=== PATIENT | female | born 1960 | race Caucasian/White ===

== ENCOUNTER 2017-03-07 11:36 | Emergency (ER) | payer OTHER ==
[2017-03-07 11:43] VITALS: BP 124/81; PULSE 109; RESP 18; TEMP 97.9
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
== END 2017-03-07 12:05 | disposition home or self-care (01) ==
LOC: EC 11:36
DX: K04.7 Periapical abscess without sinus (principal); J44.9 Chronic obstructive pulmonary disease, unspecified; K21.9 Gastro-esophageal reflux disease without esophagitis; F31.9 Bipolar disorder, unspecified; F41.9 Anxiety disorder, unspecified; M15.9 Polyosteoarthritis, unspecified; Z87.891 Personal history of nicotine dependence; Z79.82 Long term (current) use of aspirin; Z79.899 Other long term (current) drug therapy; Z88.8 Allergy status to other drugs, medicaments and biological substances; Z86.79 Personal history of other diseases of the circulatory system
CPT/HCPCS: 99282

== ENCOUNTER 2017-06-04 16:44 | Emergency (ER) | payer OTHER ==
[2017-06-04] MEDS ORDERED: methylPREDNISolone SOD SUCCI 125 MG/2 ML VIAL IV STA (18:08)
[2017-06-04] MEDS ORDERED: IPRATROPIUM-ALBUTEROL 3 ML NEB INHALATION STA (18:08)
[2017-06-04] MEDS ORDERED: HYDROcodone/APAP 10-325MG 1 EACH TAB PO ONE (18:10)
[2017-06-04 18:58] LABS: Basophils # (A) 0.1 k/uL (0-0.2); Basophils % (A) 1 %; CH 29.5; CHCM 33.5; Eosinophils # (A) 0.2 k/uL (0-0.7); Eosinophils % (A) 2 %; HCT 39.5 % (34.0-46.0); HDW 2.47; HGB 12.8 gm/dL (11.4-16.0); Luc # (Auto) 0.22; Luc % (Auto) 2; Lymphocytes # (A) 3.3 k/uL (1.0-4.8); Lymphocytes % (A) 24 %; MCH 28.6 pg (25.0-35.0); MCHC 32.3 g/dL (31.0-37.0); MCV 88.3 fL (80.0-100.0); Mean Platelet Volume 6.9; Monocytes # (A) 0.9 k/uL (0-1.0); Monocytes % (A) 6 %; Neutrophils # (A) 9.2 k/uL (1.3-7.7); Neutrophils % (A) 66 %; RBC 4.47 m/uL (3.80-5.40); RDW 14.2 % (11.5-15.5); WBC 13.9 k/uL (3.8-10.6); WBC (Perox) 13.26
[2017-06-04] MEDS ORDERED: KETOROLAC 30 MG/ML 1 ML VIAL IVP STA (19:04)
[2017-06-04] MEDS ORDERED: ACETAMINOPHEN TAB 500 MG TAB PO STA (19:04)
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
[2017-06-04 19:06] LABS: ALT 30 U/L (9-52); AST 24 U/L (14-36); Alkaline Phosphatase 64 U/L (38-126); Anion Gap 11 mmol/L; Blood Urea Nitrogen 9 mg/dL (7-17); Carbon Dioxide 25 mmol/L (22-30); Chloride 99 mmol/L (98-107); Glucose 81 mg/dL (74-99); Non-African American GFR(MDRD) 54 (>60 ml/min/1.73 sqM); Potassium 4.2 mmol/L (3.5-5.1); Sodium 135 mmol/L (137-145); Total Bilirubin 0.5 mg/dL (0.2-1.3); Total Protein 6.7 g/dL (6.3-8.2)
[2017-06-04] MEDS ORDERED: ACETAMINOPHEN TAB 325 MG TAB PO STA (19:13)
[2017-06-04 19:15] LABS: Creatine Kinase 64 U/L (30-135)
[2017-06-04 19:27] LABS: INR 0.9 (<1.2)
[2017-06-04 19:28] LABS: Creatine Kinase MB 1.5 ng/mL (0.0-2.4); Partial Thromboplastin Time 24.1 sec (22.0-30.0); Prothrombin Time 9.6 sec (9.0-12.0); Troponin I <0.012 ng/mL (0.000-0.034)
--- NOTE | 2017-06-04 19:47 | XR ---
EXAMINATION TYPE: XR chest 2V DATE OF EXAM: 06/04/2017 COMPARISON: 08/16/2015 HISTORY: Fluid retention and difficulty breathing TECHNIQUE: Frontal and lateral views of the chest are obtained. FINDINGS: Heart and mediastinum are normal. There is some linear density at the left lung base. The other lung weaver are clear. There is no pleural effusion. Bony thorax is intact. There are chest mey ds. IMPRESSION: There is new atelectasis at the left lung base compared to old exam. Normal heart.
[2017-06-04 19:52] VITALS: RESP 18
--- NOTE | 2017-06-04 20:00 | US ---
EXAMINATION TYPE: US venous doppler duplex LE BI DATE OF EXAM: 06/04/2017 7:48 PM COMPARISON: NONE CLINICAL HISTORY: Pain. Edema bilaterally SIDE PERFORMED: Bilateral TECHNIQUE: The lower extremity deep venous system is examined utilizing real time linear array sonog thania with graded compression, doppler sonography and color-flow sonography. VESSELS IMAGED: External Iliac Vein (EIV) Common Femoral Vein Deep Femoral Vein Greater Saphenous Vein * Femoral Vein Popliteal Vein Small Saphenous Vein * Proximal Calf Veins (* superficial vessels) Right Leg: Negative for DVT Left Leg: Negative for DVT No evidence of DVT bilateral legs IMPRESSION: No evidence of deep venous thrombosis in both legs.
[2017-06-04] MEDS ORDERED: ALPRAZolam 0.5 MG TAB PO STA (20:05)
[2017-06-04] MEDS ORDERED: MORPHINE SULFATE 2 MG/ML SYRINGE IVP STA (20:18)
[2017-06-04] MEDS ORDERED: LEVOFLOXACIN 750MG-D5W PMX 750 MG in DEXTROSE/WATER 1 150ML.BAG IVPB STA (20:18)
[2017-06-04] MEDS: RX INFO: IV CONTRAST WAS GIVEN 1 EACH MISC MISCELLANE PRN ×2 (20:49→20:50)
--- NOTE | 2017-06-04 21:05 | CT ---
EXAMINATION TYPE: CT angio chest DATE OF EXAM: 06/04/2017 8:50 PM COMPARISON: 05/28/2013 HISTORY: Lower extremity swelling and elevated d-dimer. CT DLP: 248.70 mGycm Automated exposure control for dose reduction was used. CONTRAST: CTA scan of the thorax is performed with IV Contrast, patient injected with 80 mL of Visipaque 320, p ulmonary embolism protocol. There are 3-D post processed images.. FINDINGS: There is diffuse pulmonary emphysema. There is no evidence of a pulmonary mass. There is mild linear density at the lung bases consistent with scarring and subsegmental atelectasis. There is no pleural effusion. There is normal contrast opacification of the pulmonary arteries. I see no filling defects. There is no sign of aortic aneurysm or dissection. There is no mediastinal adenopathy. There are a few bronchi al lymph nodes that measure less than 1 cm. IMPRESSION: NO EVIDENCE OF PULMONARY EMBOLUS. PULMONARY EMPHYSEMA. NO ADVERSE CHANGE COMPARED TO OLD EXAM.
[2017-06-04 22:44] VITALS: BP 128/61; PULSE 78; TEMP 97.8
== END 2017-06-04 22:52 | disposition home or self-care (01) ==
LOC: EC 16:44
DX: J44.1 Chronic obstructive pulmonary disease with (acute) exacerbation (principal); J20.9 Acute bronchitis, unspecified; J44.0 Chronic obstructive pulmonary disease with (acute) lower respiratory infection; I25.119 Atherosclerotic heart disease of native coronary artery with unspecified angina pectoris; K21.9 Gastro-esophageal reflux disease without esophagitis; M19.90 Unspecified osteoarthritis, unspecified site; F31.9 Bipolar disorder, unspecified; F41.9 Anxiety disorder, unspecified; M79.605 Pain in left leg; M79.604 Pain in right leg; G89.29 Other chronic pain; R79.1 Abnormal coagulation profile; Z87.898 Personal history of other specified conditions; F17.200 Nicotine dependence, unspecified, uncomplicated; Z86.73 Personal history of transient ischemic attack (TIA), and cerebral infarction without residual deficits; Z79.899 Other long term (current) drug therapy; Z79.82 Long term (current) use of aspirin; Z88.8 Allergy status to other drugs, medicaments and biological substances
CPT/HCPCS: 36415; 94640; 93005; 85379; 83880; 80053; 82550; 82553; 84484; 85025; 85610; 85730; 87040; 71020; 93970; 71275; 96365; 96366; 99285; J2930; Q9967; J1885; J2270; J1956

== ENCOUNTER 2017-07-03 20:16 | Emergency (ER) | payer OTHER ==
[2017-07-03 20:22] VITALS: BP 132/66; PULSE 96; RESP 20; TEMP 98.6
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
== END 2017-07-03 21:44 | disposition home or self-care (01) ==
LOC: EC 20:16
DX: M79.89 Other specified soft tissue disorders (principal); F41.9 Anxiety disorder, unspecified; F31.9 Bipolar disorder, unspecified; K21.9 Gastro-esophageal reflux disease without esophagitis; I25.10 Atherosclerotic heart disease of native coronary artery without angina pectoris; J44.9 Chronic obstructive pulmonary disease, unspecified; M19.90 Unspecified osteoarthritis, unspecified site; F17.200 Nicotine dependence, unspecified, uncomplicated; Z79.51 Long term (current) use of inhaled steroids; Z86.73 Personal history of transient ischemic attack (TIA), and cerebral infarction without residual deficits; Z98.890 Other specified postprocedural states; Z79.82 Long term (current) use of aspirin; Z79.899 Other long term (current) drug therapy
CPT/HCPCS: 99283

== ENCOUNTER 2018-02-21 20:32 | Emergency (ER) | payer OTHER ==
[2018-02-21 20:36] VITALS: TEMP 98.8
[2018-02-21] MEDS ORDERED: methylPREDNISolone SOD SUCCI 125 MG/2 ML VIAL IV STA (20:58)
[2018-02-21] MEDS ORDERED: IPRATROPIUM-ALBUTEROL 3 ML NEB INHALATION STA (20:58)
[2018-02-21 21:45] LABS: Albumin 4.3 g/dL (3.5-5.0); Calcium 9.2 mg/dL (8.4-10.2); Total Bilirubin 0.5 mg/dL (0.2-1.3)
[2018-02-21 21:46] LABS: Basophils % (A) 0 %; Eosinophils # (A) 0.1 k/uL (0-0.7); Eosinophils % (A) 1 %; HCT 38.5 % (34.0-46.0); HGB 12.9 gm/dL (11.4-16.0); Lymphocytes # (A) 1.7 k/uL (1.0-4.8); Lymphocytes % (A) 14 %; MCH 29.4 pg (25.0-35.0); MCHC 33.4 g/dL (31.0-37.0); MCV 88.1 fL (80.0-100.0); Mean Platelet Volume 6.8; Monocytes # (A) 0.2 k/uL (0-1.0); Monocytes % (A) 2 %; Neutrophils # (A) 10.1 k/uL (1.3-7.7); Neutrophils % (A) 84 %; Platelet Count 366 k/uL (150-450); RBC 4.37 m/uL (3.80-5.40); RDW 14.3 % (11.5-15.5)
[2018-02-21 21:48] LABS: Creatine Kinase 97 U/L (30-135); Magnesium 1.8 mg/dL (1.6-2.3); Potassium 5.1 mmol/L (3.5-5.1)
[2018-02-21 21:55] LABS: Prothrombin Time 9.6 sec (9.0-12.0)
[2018-02-21 21:56] LABS: Partial Thromboplastin Time 21.5 sec (22.0-30.0)
[2018-02-21 22:01] LABS: Troponin I <0.012 ng/mL (0.000-0.034)
[2018-02-21] MEDS ORDERED: SODIUM CHLORIDE 0.9% 1,000 ML IV ONE (22:13)
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
--- NOTE | 2018-02-21 22:23 | XR ---
EXAMINATION TYPE: XR chest 2V DATE OF EXAM: 02/21/2018 COMPARISON: 06/04/2017 HISTORY: Cough TECHNIQUE: Frontal and lateral views of the chest are obtained. FINDINGS: There is no heart failure nor confluent pneumonic infiltrate. There is mild linear density at the left posterior lung base. There is 25% wedging of a midthoracic vertebra. This is probably T8 . IMPRESSION: There is some chronic scarring and atelectasis at the left lung base without change comp ared to old exam. There is new compression fracture of T8 compared to old exam.
[2018-02-21 22:27] VITALS: RESP 18
[2018-02-21 22:32] LABS: Appearance,Urine Clear (Clear); Bilirubin,Urine Negative (Negative); Blood,Urine Negative (Negative); Color,Urine Yellow; Glucose,Urine (UA) Negative (Negative); Ketones,Urine Negative (Negative); Leukocyte Esterase,Urine Negative (Negative); Nitrite,Urine Negative (Negative); PH, Urine 5.5 (5.0-8.0); Protein,Urine Negative (Negative); Specific Gravity,Urine 1.011 (1.001-1.035); Urobilinogen,Urine <2.0 mg/dL (<2.0)
[2018-02-21 23:13] VITALS: BP 153/77; PULSE 77
== END 2018-02-21 23:19 | disposition home or self-care (01) ==
LOC: EC 20:32
DX: S22.060A Wedge compression fracture of T7-T8 vertebra, initial encounter for closed fracture (principal); J44.1 Chronic obstructive pulmonary disease with (acute) exacerbation; E86.0 Dehydration; I25.10 Atherosclerotic heart disease of native coronary artery without angina pectoris; K21.9 Gastro-esophageal reflux disease without esophagitis; I27.20 Pulmonary hypertension, unspecified; F41.9 Anxiety disorder, unspecified; F32.9 Major depressive disorder, single episode, unspecified; F17.200 Nicotine dependence, unspecified, uncomplicated; Z87.19 Personal history of other diseases of the digestive system; Z90.49 Acquired absence of other specified parts of digestive tract; Z86.73 Personal history of transient ischemic attack (TIA), and cerebral infarction without residual deficits; Z79.82 Long term (current) use of aspirin; Z79.51 Long term (current) use of inhaled steroids; Z79.899 Other long term (current) drug therapy; Z88.1 Allergy status to other antibiotic agents; Z88.8 Allergy status to other drugs, medicaments and biological substances
CPT/HCPCS: 36415; 94640; 93005; 80053; 82550; 82553; 83605; 83735; 84484; 85025; 85610; 85730; 81003; 87040; 71046; 99284; 96374; 96361; J2930

== ENCOUNTER 2018-04-15 14:18 | Inpatient (IN) | payer OTHER ==
[2018-04-15] MEDS ORDERED: cefTRIAXone IN SWFI 2,000 MG/20 ML SYRINGE IVP STA (14:38)
[2018-04-15] MEDS ORDERED: ONDANSETRON 4 MG/2 ML VIAL IVP STA (14:41)
[2018-04-15] MEDS ORDERED: MORPHINE SULFATE 2 MG/ML SYRINGE IVP STA (14:41)
[2018-04-15] MEDS: SODIUM CHLORIDE 0.9% 500 ML IV SCH ×2 (14:50→14:55)
[2018-04-15 15:04] LABS: Basophils # (A) 0.1 k/uL (0-0.2); Basophils % (A) 0 %; Eosinophils # (A) 0.2 k/uL (0-0.7); Eosinophils % (A) 1 %; HCT 54.6 % (34.0-46.0); HGB 18.1 gm/dL (11.4-16.0); Lymphocytes # (A) 2.2 k/uL (1.0-4.8); Lymphocytes % (A) 11 %; MCH 27.8 pg (25.0-35.0); MCHC 33.2 g/dL (31.0-37.0); MCV 83.6 fL (80.0-100.0); Mean Platelet Volume 6.4; Monocytes # (A) 0.9 k/uL (0-1.0); Monocytes % (A) 4 %; Neutrophils # (A) 17.4 k/uL (1.3-7.7); Neutrophils % (A) 83 %; Platelet Count 472 k/uL (150-450); RBC 6.53 m/uL (3.80-5.40); RDW 13.3 % (11.5-15.5); WBC 20.8 k/uL (3.8-10.6)
[2018-04-15 15:08] LABS: ALT 21 U/L (9-52); AST 26 U/L (14-36); Albumin 4.9 g/dL (3.5-5.0); Alkaline Phosphatase 122 U/L (38-126); Anion Gap 21 mmol/L; Blood Urea Nitrogen 12 mg/dL (7-17); Calcium 10.5 mg/dL (8.4-10.2); Carbon Dioxide 22 mmol/L (22-30); Chloride 96 mmol/L (98-107); Glucose 188 mg/dL (74-99); Potassium 4.6 mmol/L (3.5-5.1); Sodium 139 mmol/L (137-145); Total Bilirubin 0.6 mg/dL (0.2-1.3); Total Protein 8.4 g/dL (6.3-8.2)
[2018-04-15 15:13] LABS: Appearance,Urine Clear (Clear); Bilirubin,Urine Negative (Negative); Blood,Urine Negative (Negative); Color,Urine Yellow; Glucose,Urine (UA) 3+ (Negative); Hyaline Casts,Urine 4 /lpf (0-2); Ketones,Urine Trace (Negative); Leukocyte Esterase,Urine Negative (Negative); Mucus,Urine Rare /hpf; Nitrite,Urine Negative (Negative); PH, Urine 8.5 (5.0-8.0); Protein,Urine 3+ (Negative); RBC,Urine 2 /hpf (0-5); Specific Gravity,Urine 1.012 (1.001-1.035); Urobilinogen,Urine <2.0 mg/dL (<2.0); WBC,Urine 2 /hpf (0-5)
[2018-04-15 15:31] LABS: Partial Thromboplastin Time 21.6 sec (22.0-30.0); Prothrombin Time 10.3 sec (9.0-12.0)
--- NOTE | 2018-04-15 15:49 | XR ---
EXAMINATION TYPE: XR chest 2V DATE OF EXAM: 04/15/2018 COMPARISON: Chest x-ray February 21, 2018. CTA chest June 04, 2017. HISTORY: Fever. TECHNIQUE: Frontal and lateral views of the chest are obtained. FINDINGS: Background chronic emphysematous changes redemonstrated. There is no focal air space opacit y, pleural effusion, or pneumothorax seen. The cardiac silhouette size is within normal limits. Th e osseous structures are intact. IMPRESSION: Chronic emphysematous change without suspicious acute infiltrate.
[2018-04-15] MEDS ORDERED: metroNIDAZOLE-NS PMX 500 MG in SALINE 1 100ML.BAG IVPB STA (16:32)
[2018-04-15] MEDS ORDERED: LABETALOL 5 MG/ML VIAL MDV IVP STA (16:37)
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
[2018-04-15] MEDS ORDERED: NITROGLYCERIN OINT 1 INCH/GM PACKET TOPICAL STA (17:05)
[2018-04-15] MEDS ORDERED: tiZANidine 4 MG TAB PO PRN (17:06)
[2018-04-15] MEDS ORDERED: NALOXONE 0.4 MG/ML 1 ML VIAL IV PRN (17:11)
--- NOTE | 2018-04-15 17:27 | CT ---
EXAMINATION TYPE: CT abdomen pelvis w con DATE OF EXAM: 04/15/2018 COMPARISON: 08/31/2017 HISTORY: Left side abdominal pain, nausea and vomiting. CT DLP: 1632 mGycm Automated exposure control for dose reduction was used. TECHNIQUE: Helical acquisition of images was performed from the lung bases through the pelvis. CONTRAST: Performed without Oral Contrast and with IV Contrast, patient injected with 100ml mL of Iso rajan M300. FINDINGS: LUNG BASES: No significant abnormality is appreciated. LIVER/GB: No significant abnormality is appreciated. PANCREAS: No significant abnormality is seen. SPLEEN: No significant abnormality is seen. ADRENALS: No significant abnormality is seen. KIDNEYS: No significant abnormality is seen. FREE AIR: No free air is visualized. RETROPERITONEAL ADENOPATHY: None visualized REPRODUCTIVE ORGANS: No significant abnormality is seen URINARY BLADDER: No significant abnormality is seen. PELVIC ADENOPATHY: None visualized. OSSEOUS STRUCTURES: No significant abnormality is seen. BOWEL: The stomach is distended with fluid and a moderate degree. While there is no CT evidence of p eptic ulcer disease, clinical consideration of peptic ulcer disease is requested. OTHER: Vasculature unremarkable. IMPRESSION: NO DEFINITE ACUTE PROCESS.
[2018-04-15] MEDS: MORPHINE SULFATE 2 MG/ML SYRINGE IVP PRN ×3 (17:28→19:59)
[2018-04-15] MEDS: ONDANSETRON 4 MG/2 ML VIAL IVP PRN (17:33)
[2018-04-15] MEDS: LABETALOL 5 MG/ML VIAL MDV IVP SCH ×5 (17:38→20:34)
[2018-04-15] MEDS ORDERED: ASPIRIN 81 MG PO STA (18:17)
[2018-04-15] MEDS: LABETALOL 5 MG/ML VIAL MDV IVP PRN (18:38)
[2018-04-15] MEDS: DICYCLOMINE 10 MG CAP PO SCH ×2 (20:03→20:08)
[2018-04-15] MEDS: QUEtiapine 100 MG TAB PO SCH (20:04)
[2018-04-15] MEDS: GABAPENTIN 300 MG CAP PO SCH (20:08)
[2018-04-15] MEDS: SYMBICORT 160-4.5 MCG INHALER INHALATION SCH (20:33)
[2018-04-15 20:51] LABS: Glucose,Whole Blood 143 mg/dL (75-99)
[2018-04-15] MEDS: INSULIN ASPART 100 UNIT/ML 1 ML 10 ML VIAL SQ SCH (20:56)
[2018-04-15] MEDS ORDERED: methylPREDNISolone SOD SUCCI 125 MG/2 ML VIAL IV SCH (21:00)
[2018-04-15] MEDS: ACETAMINOPHEN TAB 325 MG TAB PO PRN (21:50)
[2018-04-15] MEDS ORDERED: NON-FORMULARY DRUG (Buprenorphine Hcl/Naloxone Hcl [Suboxone 8 Mg-2 Mg Sl Film] 0.5 FILM) SL SCH (22:00)
[2018-04-15] MEDS: metroNIDAZOLE-NS PMX 500 MG in SALINE 1 100ML.BAG IVPB SCH (22:22)
[2018-04-16 04:40] LABS: Hemoglobin A1C 5.3 % (4.0-6.0)
[2018-04-16 06:07] LABS: Glucose,Whole Blood 142 mg/dL (75-99)
[2018-04-16] MEDS: INSULIN ASPART 100 UNIT/ML 1 ML 10 ML VIAL SQ SCH ×4 (06:20→21:22)
[2018-04-16 06:28] LABS: Basophils % (A) 0 %; Eosinophils % (A) 0 %; HCT 42.8 % (34.0-46.0); Lymphocytes # (A) 1.6 k/uL (1.0-4.8); Lymphocytes % (A) 14 %; MCH 28.7 pg (25.0-35.0); MCHC 32.9 g/dL (31.0-37.0); MCV 87.2 fL (80.0-100.0); Mean Platelet Volume 6.4; Monocytes # (A) 0.4 k/uL (0-1.0); Monocytes % (A) 4 %; Neutrophils # (A) 9.4 k/uL (1.3-7.7); Neutrophils % (A) 82 %; Platelet Count 341 k/uL (150-450); RDW 13.4 % (11.5-15.5); WBC 11.4 k/uL (3.8-10.6)
[2018-04-16 06:39] LABS: ALT 16 U/L (9-52); AST 22 U/L (14-36); Albumin 3.5 g/dL (3.5-5.0); Alkaline Phosphatase 70 U/L (38-126); Anion Gap 13 mmol/L; Blood Urea Nitrogen 12 mg/dL (7-17); Calcium 9.1 mg/dL (8.4-10.2); Carbon Dioxide 23 mmol/L (22-30); Chloride 102 mmol/L (98-107); Glucose 137 mg/dL (74-99); Potassium 4.1 mmol/L (3.5-5.1); Sodium 138 mmol/L (137-145); Total Bilirubin 0.2 mg/dL (0.2-1.3); Total Protein 6.2 g/dL (6.3-8.2)
[2018-04-16 06:40] LABS: HGB 14.1 gm/dL (11.4-16.0)
[2018-04-16] MEDS ORDERED: PANTOPRAZOLE 40 MG TABLET PO SCH (07:30)
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
[2018-04-16] MEDS: SYMBICORT 160-4.5 MCG INHALER INHALATION SCH ×3 (08:24→21:57)
[2018-04-16] MEDS: ACETAMINOPHEN TAB 325 MG TAB PO PRN ×2 (08:38→22:40)
[2018-04-16] MEDS: GABAPENTIN 300 MG CAP PO SCH ×3 (08:40→21:22)
[2018-04-16] MEDS: ASPIRIN 325 MG TAB PO SCH (08:40)
[2018-04-16] MEDS: FOLIC ACID 1 MG TAB PO SCH (08:40)
[2018-04-16] MEDS: CHOLECALCIFEROL 1,000 UNIT TAB PO SCH (08:40)
[2018-04-16] MEDS: ALPRAZolam 1 MG TAB PO SCH (08:41)
[2018-04-16] MEDS: metroNIDAZOLE-NS PMX 500 MG in SALINE 1 100ML.BAG IVPB SCH ×3 (08:41→22:36)
[2018-04-16 11:47] LABS: Glucose,Whole Blood 99 mg/dL (75-99)
[2018-04-16] MEDS: DICYCLOMINE 10 MG CAP PO SCH ×4 (12:04→21:23)
[2018-04-16] MEDS: BALSALAZIDE DISODIUM 750 MG CAPSULE PO SCH ×3 (12:04→21:23)
[2018-04-16] MEDS: MORPHINE SULFATE 2 MG/ML SYRINGE IV PRN ×4 (12:13→23:42)
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
[2018-04-16 14:05] LABS: C Reactive Protein 5.6 mg/L (<10.0)
[2018-04-16] MEDS ORDERED: MIDAZOLAM 2 MG/2 ML VIAL ONE (14:53)
[2018-04-16] MEDS ORDERED: ETOMIDATE 2 MG/ML 10 ML VIAL ONE (14:53)
[2018-04-16] MEDS ORDERED: fentaNYL (PF) 50 MCG/ML 2 ML AMP ONE (14:53)
[2018-04-16] MEDS ORDERED: IV FLUID CONTINUATION 1,000 ML IV ONE (14:53)
--- NOTE | 2018-04-16 15:26 | P.PCN ---
Date of Procedure: 04/16/18 Procedure(s) Performed: Procedure: Esophagogastroduodenoscopy and biopsy. Preoperative diagnosis: Abdominal pain. Postoperative diagnosis: Mild gastritis and duodenitis. Preparation sedation: Was provided by anesthesia Brief clinical history: The patient is a 58-year-old female multiple medical comorbidities including CAD, COPD, CVA, GERD, Crohn's ileo-colitis diagnosed September 2014, IBS, polysubstance abuse, remote EtOH and cocaine abuse and bipolar depression. Patient presented with severe epigastric pain, nausea and vomiting intermittently over the last month without hematemesis, hematochezia or melena. Patient was prviously advised balsalazide maintenance for her Crohn' s colitis, however, she has not been taking this medication for quite some time. No recent steroids. She continues to take Bentyl without improvement of her abdominal pain. She denies diarrhea or excessive bowel movements. No changes in weight, vision or skin. She's been taking 800 mg of Motrin on a daily basis along with Zantac and Protonix for several weeks to treat generalized pain. No active alcohol or substance abuse. EGD colonoscopy August 2017 for evaluation of abdominal pain, nausea, vomiting and diarrhea showed mild gastritis, ileocolitis and diverticular disease biopsies consistent with chronic esophagitis and chronic ileocolitis. Admission white count 20.8 dropped to 11.4. Hemoglobin 18.1 presently 14.1. Platelets 341. INR 1.0. BUN 12. Creatinine 0.8. Troponin 0.04. LFTs within normal limits. CT of the abdomen and pelvis reported no definite acute process. This evaluation is to assess for peptic ulcer disease. Procedure: With the patient on her left lateral decubitus position and after informed consent and adequate sedation, I passed the Olympus-GIF 1 his cricopharyngeus down the esophagus. There was no evidence of esophagitis or complicated reflux disease. The endoscope was then passed into the stomach which was insufflated with air and inspected in detail including the retroflex view in the cardia. There was some mottling and erythema in the antrum consistent with mild gastritis but no ulcers or erosions. Pyloric channel, duodenal bulb, post bulbar area and descending duodenum appeared within normal limits. I obtained biopsies from the antrum then the endoscope was withdrawn. The patient tolerated the procedure well. Plan: The patient was reassured. Will await biopsy results and make further plans based on her course and biopsy results.
[2018-04-16] MEDS: METOPROLOL SUCCINATE (ER) 25 MG TAB.ER.24H PO SCH (15:43)
[2018-04-16 16:36] LABS: Glucose,Whole Blood 99 mg/dL (75-99)
[2018-04-16] MEDS ORDERED: METOPROLOL TARTRATE 5 MG/5 ML VIAL IVP STA (17:30)
[2018-04-16] MEDS: ONDANSETRON 4 MG/2 ML VIAL IVP PRN (17:53)
[2018-04-16] MEDS: PANTOPRAZOLE 40 MG TABLET PO SCH (18:04)
[2018-04-16] MEDS: LABETALOL 5 MG/ML VIAL MDV IVP PRN ×3 (18:52→21:52)
[2018-04-16] MEDS ORDERED: FLUTICASONE 50MCG/SPRAY NASAL 16GM EA NOSTRIL PRN (19:12)
[2018-04-16 20:47] LABS: Glucose,Whole Blood 113 mg/dL (75-99)
[2018-04-16] MEDS: QUEtiapine 100 MG TAB PO SCH (21:23)
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
[2018-04-17] MEDS: MORPHINE SULFATE 2 MG/ML SYRINGE IV PRN ×2 (06:13→22:09)
[2018-04-17] MEDS: PANTOPRAZOLE 40 MG TABLET PO SCH ×2 (06:13→17:29)
[2018-04-17 06:23] LABS: Basophils # (A) 0.1 k/uL (0-0.2); Basophils % (A) 0 %; Eosinophils # (A) 0.1 k/uL (0-0.7); Eosinophils % (A) 1 %; HCT 41.3 % (34.0-46.0); HGB 13.5 gm/dL (11.4-16.0); Lymphocytes # (A) 4.1 k/uL (1.0-4.8); Lymphocytes % (A) 36 %; MCH 28.1 pg (25.0-35.0); MCHC 32.8 g/dL (31.0-37.0); MCV 85.8 fL (80.0-100.0); Monocytes # (A) 0.8 k/uL (0-1.0); Monocytes % (A) 7 %; Neutrophils # (A) 5.9 k/uL (1.3-7.7); Neutrophils % (A) 53 %; Platelet Count 275 k/uL (150-450); RBC 4.81 m/uL (3.80-5.40); RDW 13.5 % (11.5-15.5); WBC 11.3 k/uL (3.8-10.6)
[2018-04-17 06:29] LABS: Anion Gap 12 mmol/L; Blood Urea Nitrogen 11 mg/dL (7-17); Calcium 8.5 mg/dL (8.4-10.2); Carbon Dioxide 24 mmol/L (22-30); Chloride 103 mmol/L (98-107); Glucose 77 mg/dL (74-99); Potassium 3.5 mmol/L (3.5-5.1); Sodium 139 mmol/L (137-145)
[2018-04-17 06:45] LABS: Glucose,Whole Blood 98 mg/dL (75-99)
[2018-04-17] MEDS: INSULIN ASPART 100 UNIT/ML 1 ML 10 ML VIAL SQ SCH ×3 (06:53→17:29)
[2018-04-17] MEDS: SYMBICORT 160-4.5 MCG INHALER INHALATION SCH ×2 (08:10→19:38)
[2018-04-17] MEDS: ALPRAZolam 1 MG TAB PO SCH (09:01)
[2018-04-17] MEDS: ASPIRIN 325 MG TAB PO SCH (09:01)
[2018-04-17] MEDS: BALSALAZIDE DISODIUM 750 MG CAPSULE PO SCH ×3 (09:01→20:41)
[2018-04-17] MEDS: DICYCLOMINE 10 MG CAP PO SCH ×4 (09:02→20:42)
[2018-04-17] MEDS: CHOLECALCIFEROL 1,000 UNIT TAB PO SCH (09:02)
[2018-04-17] MEDS: GABAPENTIN 300 MG CAP PO SCH ×3 (09:02→20:42)
[2018-04-17] MEDS: METOPROLOL SUCCINATE (ER) 25 MG TAB.ER.24H PO SCH (09:02)
[2018-04-17] MEDS: MORPHINE SULFATE 2 MG/ML SYRINGE IVP PRN ×3 (10:06→18:06)
[2018-04-17] MEDS: metroNIDAZOLE-NS PMX 500 MG in SALINE 1 100ML.BAG IVPB SCH (10:06)
[2018-04-17] MEDS: cefTRIAXone IN SWFI 1,000 MG/10 ML SYRINGE IVP SCH (10:06)
--- NOTE | 2018-04-17 10:29 | ECHOF ---
Referral Reason:Cardiac function MEASUREMENTS -------- HEIGHT: 172.7 cm WEIGHT: 72.1 kg BP: 103/64 RVIDd: 2.8 cm (< 3.3) IVSd: 1.5 cm (0.6 - 1.1) LVIDd: 2.9 cm (3.9 - 5.3) LVPWd: 1.5 cm (0.6 - 1.1) IVSs: 1.7 cm LVIDs: 2.1 cm LVPWs: 1.8 cm LA Diam: 3.3 cm (2.7 - 3.8) Ao Diam: 2.9 cm (2.0 - 3.7) AV Cusp: 1.4 cm (1.5 - 2.6) LA Diam: 3.3 cm (2.7 - 3.8) MV EXCURSION: 15.792 mm (> 18.000) MV EF SLOPE: 66 mm/s (70 - 150) EPSS: 0.3 cm AV maxP.21 mmHg AV meanP.88 mmHg RAP: 5.00 mmHg RVSP: 30.22 mmHg FINDINGS -------- Sinus rhythm. This was a technically adequate study. There is moderate concentric left ventricular hypertrophy. Overall left ventricular systolic functi on is normal with, an EF between 60 - 65 %. LVOT Obstruction with Jose: LVOT max pg 96.01mmHg, LVOT mean pg 50.00mmHg. HOCM. The right ventricle is normal in size. The left atrial size is normal. The right atrial size is normal. There is mild aortic valve sclerosis. Mild mitral annular calcification present. Mild mitral regurgitation is present. Mild tricuspid regurgitation present. There is no evidence of pulmonary hypertension. The right v entricular systolic pressure, as measured by Doppler, is 30.22mmHg. There is no pulmonic regurgitation present. The aortic root size is normal. There is no pericardial effusion. CONCLUSIONS -------- 1. There is moderate concentric left ventricular hypertrophy. 2. Overall left ventricular systolic function is normal with, an EF between 60 - 65 %. 3. LVOT Obstruction with Jose: LVOT max pg 96.01mmHg, LVOT mean pg 50.00mmHg. 4. HOCM. 5. The right ventricle is normal in size. 6. The left atrial size is normal. 7. The right atrial size is normal. 8. There is mild aortic valve sclerosis. 9. Mild mitral annular calcification present. 10. Mild mitral regurgitation is present. 11. Mild tricuspid regurgitation present. 12. There is no evidence of pulmonary hypertension. 13. The right ventricular systolic pressure, as measured by Doppler, is 30.22mmHg. 14. There is no pulmonic regurgitation present. 15. The aortic root size is normal. 16. There is no pericardial effusion. ADOPTION COORDINATOR: Rosemarie Hernandez RDCS
[2018-04-17 11:41] LABS: Glucose,Whole Blood 172 mg/dL (75-99)
--- NOTE | 2018-04-17 11:50 | P.PN ---
Subjective Progress Note Date: 04/17/18 Principal diagnosis: Abdominal pain history of Crohn's ileocolitis. Feels better. EGD yesterday no evidence of peptic ulcer disease. Objective - Vital Signs Vital signs: Vital Signs Temp 97.9 F 04/17/18 08:30 Pulse 84 04/17/18 10:05 Resp 16 04/17/18 08:30 BP 111/65 04/17/18 10:05 Pulse Ox 93 L 04/17/18 08:30 Intake & Output 04/16/18 04/17/18 04/17/18 18:59 06:59 18:59 Intake Total 50 40 Balance 50 40 Weight 71.4 kg Intake: IV 50 40 0.9 40 Other: Voiding Method Toilet Toilet # Voids 0 # Bowel Movements 0 - Exam General appearance: The patient is alert, oriented, in no acute distress. HET: Head is normocephalic and atraumatic. Pupils are equal and reactive. Oropharynx is clear without lesions. Neck: Supple without lymphadenopathy. Trachea midline. Heart: S1 S2. Regular rate and rhythm. Lungs: No crackles or wheezes are heard. Abdomen: Soft, mild midepigastric discomfort, nondistended with bowel sounds. No peritoneal signs. No palpable organomegaly or masses. Extremities: Normal skin color and turgor. No cyanosis, rash, ulceration, clubbing, or edema. Radial and pedal pulses are 2/4 bilaterally. Neurological: No focal deficits. Strength and sensation are grossly intact. - Labs CBC & Chem 7: 04/17/18 05:22 04/17/18 05:22 Labs: Abnormal Lab Results - Last 24 Hours (Table) 04/16/18 04/16/18 04/16/18 Range/Units 05:54 10:55 20:46 WBC (3.8-10.6) k/uL POC Glucose (mg/dL) 113 H (75-99) mg/dL Troponin I 0.039 H* 0.035 H* (0.000-0.034) ng/mL 04/17/18 04/17/18 Range/Units 05:22 11:37 WBC 11.3 H (3.8-10.6) k/uL POC Glucose (mg/dL) 172 H (75-99) mg/dL Troponin I (0.000-0.034) ng/mL Microbiology - Last 24 Hours (Table) 04/15/18 15:00 Urine Culture - Final Urine,Catheterized 04/15/18 16:01 Blood Culture - Preliminary Blood No Growth after 24 hours 04/15/18 14:28 Blood Culture - Preliminary Blood No Growth after 24 hours Assessment and Plan (1) Epigastric pain Narrative/Plan: Status post EGD no evidence of peptic ulcer disease Current Visit: Yes Status: Acute Code(s): R10.13 - EPIGASTRIC PAIN SNOMED Code(s): 46922424 (2) Nausea & vomiting Current Visit: Yes Status: Acute Code(s): R11.2 - NAUSEA WITH VOMITING, UNSPECIFIED SNOMED Code(s): 89317203 (3) Crohn's ileocolitis Current Visit: Yes Status: Chronic Code(s): K50.80 - CROHN'S DISEASE OF BOTH SMALL AND LG INT W/O COMPLICATIONS SNOMED Code(s): 69500761 (4) Patient takes NSAID (non-steroid anti-inflammatory drug) Current Visit: Yes Status: Acute Code(s): Z79.1 - PENITENTIARY (CURRENT) USE OF NON-STEROIDAL NON-INFLAM (NSAID) SNOMED Code(s): 153599197 (5) Polysubstance abuse Current Visit: No Status: Resolved Code(s): F19.10 - OTHER PSYCHOACTIVE SUBSTANCE ABUSE, UNCOMPLICATED SNOMED Code(s): 607459620 (6) IBS (irritable bowel syndrome) Current Visit: Yes Status: Chronic Code(s): K58.9 - IRRITABLE BOWEL SYNDROME WITHOUT DIARRHEA SNOMED Code(s): 30768590 Plan: 1. From a GI standpoint discharge per medicine and therapeutic consultant staff. Continue balsalazide 750 mg 3 tablets 3 times a day as well as Bentyl 10 mg 4 times a day. Return to office in 3-4 weeks for reevaluation. Continue with GI prophylaxis. Avoid NSAIDs. Diet as tolerated. Assessment and plan a care discussed with Dr. Garcia
[2018-04-17] MEDS ORDERED: Potassium Replacement Protocol 1 EACH MISC MISCELLANE PRN (11:59)
[2018-04-17] MEDS ORDERED: Magnesium Replacement Protocol 1 EACH MISC MISCELLANE PRN (12:00)
[2018-04-17] MEDS: POTASSIUM CHLORIDE ER 20 MEQ TAB.ER PO SCH ×2 (12:29→14:06)
[2018-04-17] MEDS: APIXABAN 5 MG TAB PO SCH ×2 (12:29→20:41)
[2018-04-17] MEDS: FOLIC ACID 1 MG TAB PO SCH (12:29)
--- NOTE | 2018-04-17 12:44 | P.PN ---
Subjective Progress Note Date: 04/17/18 This is a 58-year-old female who follows with Dr. Guerra in the office. She has a past medical history significant for hypertrophic obstructive cardiomyopathy, hypertension, hyperlipidemia, Crohn's disease, anxiety, depression, bipolar, nicotine dependence, presented to the hospital after having several episodes of nausea and vomiting, she was also experiencing abdominal discomfort. Patient states she was quite dizzy and lightheaded. She does currently have a loop recorder in place. During this time when patient was not feeling well, she did receive a call from [facility] , who instructed the patient that she was noted to have atrial fibrillation. She did tell Sakina this symptom she was experiencing and she was advised to come to the emergency room for further evaluation. EKG on arrival here showed a sinus tachycardia with a heart rate of 128, nonspecific ST-T wave changes.. Subsequent EKG showed sinus tachycardia with nonspecific ST-T changes. Patient' s most recent echocardiogram with Doppler study showed an ejection fraction of 60%, thickened septum, LVOT gradient 6 mmHg with increase to 15 mg of mercury with Valsalva maneuver, mild MR and moderate TR. Chest x-ray on admission showed chronic emphysema change without suspicious acute infiltrate. CAT scan of the abdomen and pelvis did not reveal any definite acute process. Her blood pressure on arrival here 203/149, heart rate in the 120s to 130s, 98% on 2 L of oxygen. Let pressure this morning 90/48 with a heart rate in the 80s, 92% on room air. I did speak with Sakina over at cardiology [facility], it appears the patient does have documented atrial fibrillation, and will need to be initiated at some point on anticoagulation. Her laboratory data was reviewed, white blood cell count on admission 20.8, 11.4 this morning, hemoglobin 18.1, 14 this morning. Platelet count 472, 341 this morning. Sodium 138, potassium 4.1, BUN 12, creatinine 0.8. Lactic acid 2.3 on admission. Troponin 0.043. At the time of my examination this morning, she denies any chest discomfort at present or prior to admission, denies any abdominal discomfort at present. 04/17/2018 Patient seen and examined this morning, feeling better overall. EGD was performed yesterday which do not reveal any evidence of peptic ulcer disease. Blood pressure 110/60 with a heart rate in the 80s, 94% on room air. Patient was initiated on Eliquis today for stroke prevention for Teodoro fonseca. As mentioned previously she does have a loop recorder in place which has documented atrial fibrillation. Objective - Vital Signs Vital signs: Vital Signs Temp 97.9 F 04/17/18 08:30 Pulse 85 04/17/18 12:10 Resp 16 04/17/18 12:10 BP 91/44 04/17/18 12:10 Pulse Ox 94 L 04/17/18 12:10 Intake & Output 04/16/18 04/17/18 04/17/18 18:59 06:59 18:59 Intake Total 50 40 Balance 50 40 Weight 71.4 kg Intake: IV 50 40 0.9 40 Other: Voiding Method Toilet Toilet # Voids 0 # Bowel Movements 0 - Exam GENERAL: This is a 57-year-old female in no apparent distress at the time of my examination. HEENT: Head is atraumatic, normocephalic. Pupils are equal, round. Sclerae anicteric. Conjunctivae are clear. Mucous membranes of the mouth are moist. Neck is supple. There is no jugular venous distention. No carotid bruit is heard. LUNGS: Reveal scattered coarse wheezing throughout . No chest wall tenderness is noted on palpation or with deep breathing. Diminished. HEART: Regular rate and rhythm with systolic ejection murmur, no rubs or gallops. S1 and S2 heard. ABDOMEN: Soft, nontender. Bowel sounds are heard. No organomegaly noted. EXTREMITIES: 2+ peripheral pulses with no evidence of peripheral edema and no calf tenderness noted. NEUROLOGIC: Patient is awake, alert and oriented x3. - Labs CBC & Chem 7: 04/17/18 05:22 04/17/18 05:22 Labs: Abnormal Lab Results - Last 24 Hours (Table) 04/16/18 04/16/18 04/16/18 Range/Units 05:54 10:55 20:46 WBC (3.8-10.6) k/uL POC Glucose (mg/dL) 113 H (75-99) mg/dL Troponin I 0.039 H* 0.035 H* (0.000-0.034) ng/mL 04/17/18 04/17/18 Range/Units 05:22 11:37 WBC 11.3 H (3.8-10.6) k/uL POC Glucose (mg/dL) 172 H (75-99) mg/dL Troponin I (0.000-0.034) ng/mL Microbiology - Last 24 Hours (Table) 04/15/18 15:00 Urine Culture - Final Urine,Catheterized 04/15/18 16:01 Blood Culture - Preliminary Blood No Growth after 24 hours 04/15/18 14:28 Blood Culture - Preliminary Blood No Growth after 24 hours Assessment and Plan Plan: Assessment and plan #1 symptoms of abdominal pain with associated nausea and vomiting, possible sepsis, elevated white blood cell count, fever, positive lactic acid, GI consulted. #2 sinus tachycardia likely secondary to sepsis #3 hypertensive urgency, patient is now hypotensive #4 nicotine dependence #5 chrons disease #6 right or CVA #7 anxiety and depression #8 hypertrophic obstructive cardiomyopathy #9 hyperlipidemia #10 paroxysmal atrial fibrillation, patient has a loop recorder in place, I just spoke with [facility], it appears that the patient has evidence of paroxysmal atrial fibrillation and will need to be anticoagulated. This was also explained to the patient in detail. #11 abnormal troponin, 0.043. Could be secondary to sepsis, supply and demand mismatch. We will obtain 2 subsequent troponins. Patient denies having any chest discomfort. Plan We will start the patient on Eliquis 5 mg one tablet by mouth twice a day for stroke prevention. The loop monitor patient has been placed did reveal evidence of atrial fibrillation. Blood pressure this morning 110/60 with a heart rate in the 80s, we do want to try to avoid any significant hypotension in this patient with significant obstructive hypertrophic cardiomyopathy. We will continue the beta dhara. DNP note has been reviewed, I agree with a documented findings and plan of care. Patient was seen and examined.
[2018-04-17 16:19] LABS: Glucose,Whole Blood 97 mg/dL (75-99)
[2018-04-17] MEDS: metroNIDAZOLE 500 MG TAB PO SCH ×2 (17:28→23:08)
[2018-04-17] MEDS: QUEtiapine 100 MG TAB PO SCH (20:41)
[2018-04-18] MEDS: MORPHINE SULFATE 2 MG/ML SYRINGE IV PRN ×2 (03:01→07:08)
[2018-04-18] MEDS: PANTOPRAZOLE 40 MG TABLET PO SCH (06:05)
[2018-04-18] MEDS: SYMBICORT 160-4.5 MCG INHALER INHALATION SCH (08:07)
[2018-04-18] MEDS ORDERED: POTASSIUM CHLORIDE ER 20 MEQ TAB.ER PO SCH (09:00)
--- NOTE | 2018-04-18 09:43 | CT ---
EXAMINATION TYPE: CT cervical spine w con DATE OF EXAM: 04/18/2018 COMPARISON: None HISTORY: Neck pain Unenhanced CT of the cervical spine was performed with bone and soft tissue window settings submitted . Coronal and sagittal reconstruction is obtained. There is normal alignment and prevertebral soft tissues. I do not see evidence for fracture or sublu xation. C2-3: Within normal limits C3-4: Within normal limits C4-5: Mild degenerative disc space narrowing. Mild ventral spondylosis. Minimal posterior disc bulge. No herniation protrusion or central stenosis. Foramina are patent. C5-6:Mild degenerative disc space narrowing. Mild ventral spondylosis. Minimal posterior disc bulge. No herniation protrusion or central stenosis. Foramina are patent. C6-7:Mild degenerative disc space narrowing. Mild ventral spondylosis. Minimal posterior disc bulge. No herniation protrusion or central stenosis. Foramina are patent. The graft C7-T1: Within normal limits graft lung apices demonstrate emphysematous change. IMPRESSION: 1 mild degenerative disc space narrowing and spondylosis with disc bulging as noted.
[2018-04-18 09:49] VITALS: RESP 16; TEMP 96.8
[2018-04-18] MEDS: ALPRAZolam 1 MG TAB PO SCH (09:49)
[2018-04-18] MEDS: cefTRIAXone IN SWFI 1,000 MG/10 ML SYRINGE IVP SCH (09:50)
[2018-04-18] MEDS: metroNIDAZOLE 500 MG TAB PO SCH ×2 (09:50→16:51)
[2018-04-18] MEDS: MAGNESIUM SULFATE-D5W PMX 1 GM in DEXTROSE/WATER 1 100ML.BAG IVPB SCH ×3 (09:50→12:32)
[2018-04-18] MEDS: APIXABAN 5 MG TAB PO SCH (09:50)
[2018-04-18] MEDS: BALSALAZIDE DISODIUM 750 MG CAPSULE PO SCH ×2 (09:50→16:51)
[2018-04-18] MEDS: METOPROLOL SUCCINATE (ER) 25 MG TAB.ER.24H PO SCH (09:51)
[2018-04-18] MEDS: CHOLECALCIFEROL 1,000 UNIT TAB PO SCH (09:51)
[2018-04-18] MEDS: DICYCLOMINE 10 MG CAP PO SCH ×2 (09:51→12:33)
[2018-04-18] MEDS: GABAPENTIN 300 MG CAP PO SCH ×2 (09:51→16:51)
[2018-04-18] MEDS: MORPHINE SULFATE 2 MG/ML SYRINGE IVP PRN ×2 (11:17→15:12)
[2018-04-18] MEDS: FOLIC ACID 1 MG TAB PO SCH (11:18)
[2018-04-18 14:21] LABS: INR 1.1 (<1.2); Prothrombin Time 10.3 sec (9.0-12.0)
--- NOTE | 2018-04-18 14:26 | P.PN ---
Subjective Progress Note Date: 04/18/18 This is a 58-year-old female who follows with Dr. Guerra in the office. She has a past medical history significant for hypertrophic obstructive cardiomyopathy, hypertension, hyperlipidemia, Crohn's disease, anxiety, depression, bipolar, nicotine dependence, presented to the hospital after having several episodes of nausea and vomiting, she was also experiencing abdominal discomfort. Patient states she was quite dizzy and lightheaded. She does currently have a loop recorder in place. During this time when patient was not feeling well, she did receive a call from [facility], Sakina , who instructed the patient that she was noted to have atrial fibrillation. She did tell Sakina this symptom she was experiencing and she was advised to come to the emergency room for further evaluation. EKG on arrival here showed a sinus tachycardia with a heart rate of 128, nonspecific ST-T wave changes.. Subsequent EKG showed sinus tachycardia with nonspecific ST-T changes. Patient' s most recent echocardiogram with Doppler study showed an ejection fraction of 60%, thickened septum, LVOT gradient 6 mmHg with increase to 15 mg of mercury with Valsalva maneuver, mild MR and moderate TR. Chest x-ray on admission showed chronic emphysema change without suspicious acute infiltrate. CAT scan of the abdomen and pelvis did not reveal any definite acute process. Her blood pressure on arrival here 203/149, heart rate in the 120s to 130s, 98% on 2 L of oxygen. systolic blood pressure today is ranging from 110-146 with a diastolic of 58-64. Upon examination her only complaint is of neck pain. She denies complaints of dizziness, lightheadedness or nausea or vomiting. She was started on Eliquis yesterday. Objective - Vital Signs Vital signs: Vital Signs Temp 96.8 F L 04/18/18 09:45 Pulse 80 04/18/18 11:25 Resp 16 04/18/18 11:25 BP 110/64 04/18/18 11:25 Pulse Ox 94 L 04/18/18 11:25 Intake & Output 04/17/18 04/18/18 04/18/18 18:59 06:59 18:59 Intake Total 218 10 240 Balance 218 10 240 Weight 73.3 kg Intake: IV 10 0.9 10 Oral 218 240 Other: Voiding Method Toilet Toilet Toilet # Voids 2 2 - Exam PHYSICAL EXAMINATION: HEENT: [Head is atraumatic, normocephalic. Pupils equal, round. Neck is supple. There is no elevated jugular venous pressure.] HEART EXAMINATION: [Heart sounds regular, S1 and S2 with a systolic ejection murmur.] CHEST EXAMINATION:[ Lungs reveal diminished air entry throughout with scattered wheezing. No chest wall tenderness is noted on palpation or with deep breathing. ] ABDOMEN: [ Soft, nontender. Bowel sounds are heard. No organomegaly noted]. EXTREMITIES:[ 2+ peripheral pulses with no evidence of peripheral edema and no calf tenderness noted]. NEUROLOGIC [patient is awake, alert and oriented x3.] . - Labs CBC & Chem 7: 04/17/18 05:22 04/18/18 06:32 Labs: Abnormal Lab Results - Last 24 Hours (Table) 04/18/18 Range/Units 06:32 Magnesium 1.4 L (1.6-2.3) mg/dL Microbiology - Last 24 Hours (Table) 04/15/18 16:01 Blood Culture - Preliminary Blood No Growth after 48 hours 04/15/18 14:28 Blood Culture - Preliminary Blood No Growth after 48 hours Assessment and Plan Assessment: #1 symptoms of abdominal pain with associated nausea and vomiting, possible sepsis, elevated white blood cell count, fever, positive lactic acid, GI consulted. #2 sinus tachycardia likely secondary to sepsis #3 hypertensive urgency, patient is now hypotensive #4 nicotine dependence #5 chrons disease #6 right or CVA #7 anxiety and depression #8 hypertrophic obstructive cardiomyopathy #9 hyperlipidemia #10 paroxysmal atrial fibrillation, patient has a loop recorder in place, Iwill require buttermaker continuous churn anticoagulation #11 abnormal troponin, 0.043. Could be secondary to sepsis, supply and demand mismatch. We will obtain 2 subsequent troponins. Patient denies having any chest discomfort. Plan: from cardiology's perspective, patient does not have prescription coverage for Eliquis. from our perspective, patient may be discharged home on Coumadin 5 mg by mouth daily and check INR in our office in 5 days. She will follow-up as an outpatient. FRUCTOSE LOADER note has been reviewed, I agree with a documented findings and plan of care. Patient was seen and examined.
[2018-04-18 15:12] VITALS: BP 129/76; PULSE 77
[2018-04-18] MEDS ORDERED: WARFARIN 5 MG TAB PO ONE (18:00)
--- NOTE | 2018-04-18 23:00 | P.PN ---
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 Patient has been very dizzy with abdominal pain and came to ER for further evaluation. Abdominal pain is mainly epigastric area. Otherwise no complaints of chest pain or shortness of breath. Patient is being evaluated for dizziness and lightheadedness and was placed on loop recorder. Patient says that she received a call from Dr. garcia's office and was told to come to the clinic due to atrial fibrillation and he is to be started on anticoagulation. Otherwise patient denied any fever or chills. No chest pain or shortness of breath. No cough or sputum production. CT abdomen showed no acute abnormality EKG showed sinus tachycardia WBC count 20.8 Troponin 0.043 Patient was given a dose of ceftriaxone and Flagyl while in the ER. Cardiology and GI was consulted. 04/17/2018 Patient denied any complains of chest pain. Complaints of neck pain and numbness in the occipital area. Patient had EGD done yesterday showed gastritis and no active bleeding noted. Patient was seen by cardiology and was started on antibiotics in the form of apixaban. Patient will be continued on antibiotics. Leukocytosis normalized. No commerce abdominal pain. Tolerating oral diet. Anticipate discharged tomorrow. All other review of systems negative except the above Current medications reviewed Objective - Vital Signs Vital signs: Vital Signs Temp 97.4 F L 04/17/18 17:10 Pulse 80 04/17/18 17:10 Resp 16 04/17/18 17:10 BP 106/55 04/17/18 17:10 Pulse Ox 92 L 04/17/18 17:10 Intake & Output 04/17/18 04/17/18 04/18/18 06:59 18:59 06:59 Intake Total 40 218 Balance 40 218 Weight 71.4 kg Intake: IV 40 0.9 40 Oral 218 Other: Voiding Method Toilet Toilet # Voids 2 - Exam PHYSICAL EXAMINATION: Patient is lying in the bed comfortably, no acute distress, awake alert and oriented.. HEENT: Normocephalic. Neck is supple. Pupils reactive. Nostrils clear. Oral cavity is moist. Ears reveal no drainage. Neck reveals no JVD, carotid bruits, or thyromegaly. CHEST EXAMINATION: Trachea is central. Symmetrical expansion. Lung weaver clear to auscultation and percussion. CARDIAC: Normal S1, S2 with no gallops. No murmurs ABDOMEN: Soft. Bowel sounds normal. No organomegaly. No abdominal bruits. Extremities: reveal no edema. No clubbing or cyanosis Neurologically awake, alert, oriented x3 with well-coordinated movements. No focal deficits noted Skin: No rash or skin lesions. Psychiatric: Coperative. Nonsuicidal Musculoskeletal: No joint swelling or deformity. Normal range of motion. - Labs CBC & Chem 7: 04/17/18 05:22 04/18/18 06:32 Labs: Abnormal Lab Results - Last 24 Hours (Table) 04/17/18 04/17/18 Range/Units 05:22 11:37 WBC 11.3 H (3.8-10.6) k/uL POC Glucose (mg/dL) 172 H (75-99) mg/dL Microbiology - Last 24 Hours (Table) 04/15/18 16:01 Blood Culture - Preliminary Blood No Growth after 48 hours 04/15/18 14:28 Blood Culture - Preliminary Blood No Growth after 48 hours 04/15/18 15:00 Urine Culture - Final Urine,Catheterized Assessment and Plan Assessment: Intractable abdominal pain with nausea and vomiting likely due to gastritis Possible sepsis due to colitis Fever leukocytosis, tachycardia and mild lactic acidosis History of Crohn's disease Paroxysmal atrial fibrillation. Patient does have loop recorder. Patient was started on anticoagulation. Cardiology on board. Hypertropic obstructive cardiomyopathy Hypertensive urgency on admission Mild troponin elevation likely due to sepsis Anxiety and depression History of CVA/TIA. With no residual weakness Polysubstance abuse Hyperlipidemia Nicotine addiction Plan: Patient be continued on IV fluids and symptomatic management for nausea and vomiting along with PPI. EGD was done. Cardiology is on board. 2-D echocardiogram was ordered and continue the telemetry monitoring. Continue with antibiotics in the form of ceftriaxone and Flagyl and follow up closely. Patient is ALLERGIC to levofloxacin. Further recommendations based on the clinical course. Prognosis is guarded. Time with Patient: Greater than 30
--- NOTE | 2018-04-18 23:07 | P.DS ---
Providers Date of admission: 04/15/18 17:11 Expected date of discharge: 04/18/18 Attending physician: Magalys Hunter Consults: 04/15/18 17:11 Consult Physician Stat Consulting Provider: Navi Younger Consult Reason/Comments: Elevated troponin, tachycardia, hypertension Do you want consulting provider notified?: Yes Primary care physician: Mariela Gleason [facility] Course: Discharge diagnosis Intractable abdominal pain with nausea and vomiting likely due to gastritis. Status post EGD Possible sepsis due to colitis Fever leukocytosis, tachycardia and mild lactic acidosis History of Crohn's disease Paroxysmal atrial fibrillation. Patient does have loop recorder. Patient was started on anticoagulation. Cardiology on board. 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 Patient has been very dizzy with abdominal pain and came to ER for further evaluation. Abdominal pain is mainly epigastric area. Otherwise no complaints of chest pain or shortness of breath. Patient is being evaluated for dizziness and lightheadedness and was placed on loop recorder. Patient says that she received a call from Dr. garcia's office and was told to come to the clinic due to atrial fibrillation and he is to be started on anticoagulation. Otherwise patient denied any fever or chills. No chest pain or shortness of breath. No cough or sputum production. CT abdomen showed no acute abnormality EKG showed sinus tachycardia WBC count 20.8 Troponin 0.043 Patient was given a dose of ceftriaxone and Flagyl while in the ER. Cardiology and GI was consulted. 04/17/2018 Patient denied any complains of chest pain. Complaints of neck pain and numbness in the occipital area. Patient had EGD done yesterday showed gastritis and no active bleeding noted. Patient was seen by cardiology and was started on antibiotics in the form of apixaban. Patient will be continued on antibiotics. Leukocytosis normalized. No commerce abdominal pain. Tolerating oral diet. Anticipate discharged tomorrow. 04/18/[address] neck done today showed mild degenerative disc disease. Otherwise neck pain is improved with pain medications. Patient does have history of polysubstance abuse and is also on Suboxone. EGD showed no evidence of peptic ulcer disease. Patient was started on anticoagulation for stroke prophylaxis. Patient does have approximate fibrillation as evidenced in the loop recorder. Cardiology is following. Patient was initially started on Apixaban but patient does not have prescription coverage. She'll be discharged on Coumadin. Otherwise patient is symptomatically much improved now. Hemoglobin is stable. No nausea vomiting or abdominal pain. Patient be continued on antibiotic course. Stable to be discharged home today. Plan: Patient was continued on IV fluids and symptomatic management for nausea and vomiting along with PPI. EGD was done. Cardiology is on board. 2-D echocardiogram was continued the telemetry monitoring. Continue with antibiotics in the form of ceftriaxone and Flagyl and follow up closely. Patient is ALLERGIC to levofloxacin. Continued on pain management. Patient did improve clinically. Patient be discharged on oral anticoagulation for stroke prophylaxis due to documented atrial fibrillation in the loop recorder. PHYSICAL EXAMINATION: Patient is lying in the bed comfortably, no acute distress, awake alert and oriented.. HEENT: Normocephalic. Neck is supple. Pupils reactive. Nostrils clear. Oral cavity is moist. Ears reveal no drainage. Neck reveals no JVD, carotid bruits, or thyromegaly. CHEST EXAMINATION: Trachea is central. Symmetrical expansion. Lung weaver clear to auscultation and percussion. CARDIAC: Normal S1, S2 with no gallops. No murmurs ABDOMEN: Soft. Bowel sounds normal. No organomegaly. No abdominal bruits. Extremities: reveal no edema. No clubbing or cyanosis Neurologically awake, alert, oriented x3 with well-coordinated movements. No focal deficits noted Skin: No rash or skin lesions. Psychiatric: Coperative. Nonsuicidal Musculoskeletal: No joint swelling or deformity. Normal range of motion. Vital Signs - 24 hr 04/18/18 04/18/18 04/18/18 00:00 03:51 03:53 Temperature 98.0 F 97.6 F Pulse Rate [ 82 82 82 Pulse Oximetery ] Respiratory 18 18 18 Rate Blood Pressure 103/54 107/52 [Left Arm Sitting] O2 Sat by Pulse 94 L 93 L Oximetry 04/18/18 04/18/18 04/18/18 08:09 09:45 11:20 Temperature 96.8 F L Pulse Rate [ 78 Pulse Oximetery ] Respiratory 16 16 Rate Blood Pressure 146/58 [Left Arm Sitting] O2 Sat by Pulse 93 L 95 Oximetry 04/18/18 04/18/18 11:25 14:55 Temperature Pulse Rate [ 80 77 Pulse Oximetery ] Respiratory 16 16 Rate Blood Pressure 110/64 129/76 [Left Arm Sitting] O2 Sat by Pulse 94 L 93 L Oximetry Total time taken greater than 35 minutes including 18 minutes for counseling and coordination of care. Patient Condition at Discharge: Fair Plan - Discharge Summary Discharge Rx Participant: Yes New Discharge Prescriptions: New Balsalazide Disodium 2,250 mg PO TID #270 capsule HYDROcodone/APAP 5-325MG [[place] 5-325] 1 tab PO Q6HR PRN 3 Days #12 tab PRN Reason: Pain Warfarin Sodium [Coumadin] 5 mg PO DAILY #7 tablet Cefuroxime Axetil [Ceftin] 500 mg PO BID #4 tab metroNIDAZOLE [Flagyl] 500 mg PO Q8HR #6 tab Fluticasone Nasal [place] [Flonase Nasal [place]] 2 spray EA NOSTRIL DAILY PRN spr PRN Reason: Allergy Symptoms Continue Aspirin [Aspir-Low] 81 mg PO DAILY QUEtiapine [SEROquel] 200 mg PO HS Pantoprazole Sodium [Protonix] 40 mg PO DAILY Gabapentin [Neurontin] 300 mg PO TID Budesonide/Formoterol Fumarate [Symbicort 160-4.5 Mcg Inhaler] 2 puff INHALATION RT-BID Folic Acid 1 mg PO DAILY Cholecalciferol [Vitamin D3] 1,000 unit PO DAILY ALPRAZolam [Xanax] 1 mg PO DAILY Metoprolol Succinate (ER) [Toprol XL] 25 mg PO DAILY Dicyclomine HCl 10 mg PO QID tiZANidine [Zanaflex] 4 mg PO BID PRN PRN Reason: Muscle Pain No Action Buprenorphine HCl/Naloxone HCl [Suboxone 8 mg-2 mg Sl Film] 0.5 film SL TID Discharge Medication List Aspirin [Aspir-Low] 81 mg PO DAILY 08/16/15 [History] Pantoprazole Sodium [Protonix] 40 mg PO DAILY 06/04/17 [History] QUEtiapine [SEROquel] 200 mg PO HS 06/04/17 [History] Gabapentin [Neurontin] 300 mg PO TID 08/29/17 [History] ALPRAZolam [Xanax] 1 mg PO DAILY 02/21/18 [History] Budesonide/Formoterol Fumarate [Symbicort 160-4.5 Mcg Inhaler] 2 puff INHALATION RT-BID 02/21/18 [History] Cholecalciferol [Vitamin D3] 1,000 unit PO DAILY 02/21/18 [History] Folic Acid 1 mg PO DAILY 02/21/18 [History] Metoprolol Succinate (ER) [Toprol XL] 25 mg PO DAILY 02/21/18 [History] Buprenorphine HCl/Naloxone HCl [Suboxone 8 mg-2 mg Sl Film] 0.5 film SL TID 07/24 [History] Dicyclomine HCl 10 mg PO QID 04/15/18 [History] tiZANidine [Zanaflex] 4 mg PO BID PRN 04/15/18 [History] Balsalazide Disodium 2,250 mg PO TID #270 capsule 04/16/18 [Rx] Cefuroxime Axetil [Ceftin] 500 mg PO BID #4 tab 04/18/18 [Rx] Fluticasone Nasal [place] [Flonase Nasal [place]] 2 spray EA NOSTRIL DAILY PRN spr 04/18/18 [Rx] HYDROcodone/APAP 5-325MG [[place] 5-325] 1 tab PO Q6HR PRN 3 Days #12 tab [Rx] Warfarin Sodium [Coumadin] 5 mg PO DAILY #7 tablet 04/18/18 [Rx] metroNIDAZOLE [Flagyl] 500 mg PO Q8HR #6 tab 04/18/18 [Rx] Follow up Appointment(s)/Referral(s): Luc Garcia MD [STAFF PHYSICIAN] - 1 Week (Office to call you to make an appointment with Dr Garcia.) Henrry Horowitz MD [STAFF PHYSICIAN] - 3 Days (Computers are down. Please call to schedule appointment) Aby Younger MD [STAFF PHYSICIAN] - 06/02/18 2:15 pm Ambulatory/Diagnostic Orders: Prothrombin Time INR [LAB.AMB] Time Frame: 04/21/18, Location: None Selected Patient Instructions/Handouts: A-fib (Atrial Fibrillation) (DC), Acute Abdominal Pain (DC), Hypertensive Crisis (DC) Activity/Diet/Wound Care/Special Instructions: Pt states she has an appointment at 1 PM in [place] with Dr Garay. Cardiology has a clinic Saturday -Saturday from 8:30AM-12:30 PM please have your INR level checked Saturday. Discharge Disposition: HOME SELF-CARE
== END 2018-04-18 17:07 | disposition home or self-care (01) | DRG 872 ==
LOC: EC 14:18 → 6SEL 17:11
PROVIDERS: ADMIT Internal Medicine; ATTEND Internal Medicine
PROC: 0DB78ZX Excision of Stomach, Pylorus, Via Natural or Artificial Opening Endoscopic, Diagnostic (ICD-10-PCS; principal; 2018-04-16 07:30)
DX: A41.9 Sepsis, unspecified organism (principal); E87.2 Acidosis; I42.1 Obstructive hypertrophic cardiomyopathy; K50.80 Crohn's disease of both small and large intestine without complications; K29.70 Gastritis, unspecified, without bleeding; I48.0 Paroxysmal atrial fibrillation; I16.0 Hypertensive urgency; E78.5 Hyperlipidemia, unspecified; F17.200 Nicotine dependence, unspecified, uncomplicated; I25.10 Atherosclerotic heart disease of native coronary artery without angina pectoris; K21.0 Gastro-esophageal reflux disease with esophagitis; K29.80 Duodenitis without bleeding; J43.9 Emphysema, unspecified; F41.9 Anxiety disorder, unspecified; I11.9 Hypertensive heart disease without heart failure; K57.90 Diverticulosis of intestine, part unspecified, without perforation or abscess without bleeding; F31.9 Bipolar disorder, unspecified; Z79.01 Long term (current) use of anticoagulants; Z79.51 Long term (current) use of inhaled steroids; Z79.82 Long term (current) use of aspirin; Z80.0 Family history of malignant neoplasm of digestive organs; Z82.49 Family history of ischemic heart disease and other diseases of the circulatory system; Z83.3 Family history of diabetes mellitus; Z86.73 Personal history of transient ischemic attack (TIA), and cerebral infarction without residual deficits
CPT/HCPCS: 36415; 43239; 71046; 72126; 74177; 80048; 80053; 81001; 82150; 83036; 83605; 83690; 83735; 84132; 84484; 85025; 85610; 85730; 86140; 87040; 87086; 88305; 93005; 93306; 94640; 94760; 96361; 96365; 96375; 96376; 99291

== ENCOUNTER 2018-08-12 15:13 | Emergency (ER) | payer OTHER ==
[2018-08-12 15:22] VITALS: BP 147/77; PULSE 83; RESP 20; TEMP 98.6
--- NOTE | 2018-08-12 16:02 | XR ---
EXAMINATION TYPE: XR lumbar spine 2 or 3V DATE OF EXAM: 08/12/2018 COMPARISON: 06/10/2014 HISTORY: Pain TECHNIQUE: Lumbar spine is examined in 3 views. FINDINGS: There 5 lumbar-type vertebral bodies. Pedicles are intact. Disc heights are preserved. Vert ebral body heights are preserved. Alignment is normal. IMPRESSION: 1. Normal 5 view lumbar spine.
[2018-08-12 16:48] LABS: ALT 20 U/L (9-52); AST 22 U/L (14-36); Albumin 3.7 g/dL (3.5-5.0); Alkaline Phosphatase 74 U/L (38-126); Anion Gap 8 mmol/L; Blood Urea Nitrogen 9 mg/dL (7-17); Calcium 8.8 mg/dL (8.4-10.2); Carbon Dioxide 27 mmol/L (22-30); Chloride 102 mmol/L (98-107); Glucose 82 mg/dL (74-99); Potassium 4.2 mmol/L (3.5-5.1); Sodium 137 mmol/L (137-145); Total Bilirubin 0.3 mg/dL (0.2-1.3); Total Protein 6.5 g/dL (6.3-8.2)
[2018-08-12] MEDS ORDERED: KETOROLAC 30 MG/ML 1 ML VIAL IVP STA (16:48)
[2018-08-12] MEDS ORDERED: KETOROLAC 30 MG/ML 1 ML VIAL IM STA (16:49)
[2018-08-12] MEDS ORDERED: CYCLOBENZAPRINE 10 MG TAB PO STA (17:00)
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
[2018-08-12] MEDS ORDERED: ACET/COD 300 MG/30 MG STARTER PACK 6 TAB BTL PO STA (18:26)
== END 2018-08-12 18:29 | disposition home or self-care (01) ==
LOC: EC 15:13
DX: S39.012A Strain of muscle, fascia and tendon of lower back, initial encounter (principal); I25.119 Atherosclerotic heart disease of native coronary artery with unspecified angina pectoris; J44.9 Chronic obstructive pulmonary disease, unspecified; K21.9 Gastro-esophageal reflux disease without esophagitis; E78.5 Hyperlipidemia, unspecified; I10 Essential (primary) hypertension; M19.90 Unspecified osteoarthritis, unspecified site; K58.9 Irritable bowel syndrome, unspecified; F31.9 Bipolar disorder, unspecified; F41.9 Anxiety disorder, unspecified; F17.200 Nicotine dependence, unspecified, uncomplicated; Z79.51 Long term (current) use of inhaled steroids; Z79.82 Long term (current) use of aspirin; Z79.899 Other long term (current) drug therapy; Z88.1 Allergy status to other antibiotic agents; Z88.8 Allergy status to other drugs, medicaments and biological substances; Z53.8 Procedure and treatment not carried out for other reasons; X50.9XXA Other and unspecified overexertion or strenuous movements or postures, initial encounter; Y92.009 Unspecified place in unspecified non-institutional (private) residence as the place of occurrence of the external cause
CPT/HCPCS: 36415; 80053; 72100; 99284; 96372; J1885

== ENCOUNTER 2018-08-26 13:24 | Emergency (ER) | payer OTHER ==
[2018-08-26 13:37] VITALS: BP 132/76; TEMP 98
[2018-08-26] MEDS ORDERED: methylPREDNISolone SOD SUCCI 125 MG/2 ML VIAL IM STA (13:44)
[2018-08-26] MEDS ORDERED: IPRATROPIUM-ALBUTEROL 3 ML NEB INHALATION STA (13:44)
[2018-08-26 14:01] VITALS: RESP 24
[2018-08-26 14:05] VITALS: PULSE 84
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
--- NOTE | 2018-08-26 14:22 | XR ---
EXAMINATION TYPE: XR chest 2V DATE OF EXAM: 08/26/2018 COMPARISON: 04/15/2018 HISTORY: Cough for 2 weeks TECHNIQUE: Frontal and lateral views of the chest are obtained. FINDINGS: There is no focal air space opacity, pleural effusion, or pneumothorax seen. The cardiac silhouette size is within normal limits. The osseous structures are intact. Cardiac loop recorder i s incidentally noted. There is pulmonary hyperinflation and flattening the diaphragms related to unde rlying COPD. IMPRESSION: No acute cardiopulmonary process. Radiographic sequela of COPD.
== END 2018-08-26 14:45 | disposition home or self-care (01) ==
LOC: EC 13:24
DX: J20.9 Acute bronchitis, unspecified (principal); I25.119 Atherosclerotic heart disease of native coronary artery with unspecified angina pectoris; J44.9 Chronic obstructive pulmonary disease, unspecified; I10 Essential (primary) hypertension; J44.0 Chronic obstructive pulmonary disease with (acute) lower respiratory infection; F41.9 Anxiety disorder, unspecified; F31.9 Bipolar disorder, unspecified; F17.200 Nicotine dependence, unspecified, uncomplicated; K21.9 Gastro-esophageal reflux disease without esophagitis; Z79.82 Long term (current) use of aspirin; Z79.899 Other long term (current) drug therapy; Z88.1 Allergy status to other antibiotic agents; Z88.8 Allergy status to other drugs, medicaments and biological substances; Z86.73 Personal history of transient ischemic attack (TIA), and cerebral infarction without residual deficits
CPT/HCPCS: 94640; 71046; 99283; 96372; J2930

== ENCOUNTER → 2018-09-12 | Outpatient (CLI) | payer OTHER ==
[2018-09-12 11:58] LABS: Basophils # (A) 0.1 k/uL (0-0.2); Basophils % (A) 0 %; Eosinophils # (A) 0.1 k/uL (0-0.7); Eosinophils % (A) 1 %; HCT 39.8 % (34.0-46.0); HGB 12.6 gm/dL (11.4-16.0); Lymphocytes # (A) 4.7 k/uL (1.0-4.8); Lymphocytes % (A) 34 %; MCH 27.7 pg (25.0-35.0); MCHC 31.6 g/dL (31.0-37.0); MCV 87.8 fL (80.0-100.0); Mean Platelet Volume 6.5; Monocytes # (A) 0.8 k/uL (0-1.0); Monocytes % (A) 5 %; Neutrophils # (A) 7.9 k/uL (1.3-7.7); Neutrophils % (A) 57 %; Platelet Count 291 k/uL (150-450); RBC 4.53 m/uL (3.80-5.40); RDW 15.4 % (11.5-15.5); WBC 13.8 k/uL (3.8-10.6)
[2018-09-12 12:05] LABS: INR 3.2 (<1.2); Prothrombin Time 30.5 sec (9.0-12.0)
[2018-09-12 17:35] LABS: Albumin 4.5 g/dL (3.80-4.90); Albumin/Globulin Ratio 2.5 (1.20-2.10); Globulin 1.8 g/dL (2.1-3.7); LDL Cholesterol,Calculated 78.4 mg/dL (0.0-131.0); Potassium 3.5 mmol/L (3.5-5.5); Total Bilirubin 0.4 mg/dL (0.2-1.2); Total Protein 6.3 g/dL (6.2-8.2); VLDL Calculation 25.6 mg/dL (5.00-40.00)
[2018-09-12 17:44] LABS: T4, Free (Free Thyroxine) 1.4 ng/dL (0.80-1.80)
[2018-09-12 20:42] LABS: HIV 1 AB Non-Reactive (Non-Reactive); HIV AB P24 Non-Reactive (Non-Reactive); HIV P24 AG Non-Reactive (Non-Reactive)
== END | disposition home or self-care (01) ==
LOC: LABWHC1 11:29
PROVIDERS: ATTEND Family Medicine
DX: Z00.00 Encounter for general adult medical examination without abnormal findings (principal); K50.90 Crohn's disease, unspecified, without complications; I48.0 Paroxysmal atrial fibrillation; G45.9 Transient cerebral ischemic attack, unspecified; F11.10 Opioid abuse, uncomplicated; J44.1 Chronic obstructive pulmonary disease with (acute) exacerbation; Z79.01 Long term (current) use of anticoagulants; Z79.899 Other long term (current) drug therapy
CPT/HCPCS: 36415; 80053; 80061; 84439; 84443; 85025; 85610; 86803; 87390

== ENCOUNTER → 2018-10-09 | Outpatient (CLI) | payer OTHER ==
[2018-10-09 14:34] LABS: INR 1.8 (<1.2); Prothrombin Time 17.7 sec (9.0-12.0)
[2018-10-10 15:08] LABS: Hepatits C Virus RNA Not detected (Not detected); Hepatits C Virus RNA, Quant <12 IU/mL (<12); LOG HCV IU/mL <1.08 (<1.08)
== END | disposition home or self-care (01) ==
LOC: LABWHC1 13:28
PROVIDERS: ATTEND Family Medicine
DX: B19.20 Unspecified viral hepatitis C without hepatic coma (principal); Z79.01 Long term (current) use of anticoagulants; Z79.899 Other long term (current) drug therapy
CPT/HCPCS: 36415; 85610; 87522

== ENCOUNTER 2018-11-09 15:14 | Inpatient (IN) | payer OTHER ==
[2018-11-09] MEDS ORDERED: IPRATROPIUM-ALBUTEROL 3 ML NEB INHALATION STA (15:38)
[2018-11-09] MEDS ORDERED: DEXAMETHASONE SOD PHOSPHATE 10 MG/ML 1 ML VIAL IV STA (15:38)
[2018-11-09] MEDS ORDERED: ALBUTEROL NEBULIZED 2.5 MG/3 ML INHALATION STA (15:38)
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
[2018-11-09 16:32] LABS: Basophils # (A) 0.1 k/uL (0-0.2); Basophils % (A) 0 %; Eosinophils # (A) 0.2 k/uL (0-0.7); Eosinophils % (A) 1 %; HCT 36.8 % (34.0-46.0); HGB 12.1 gm/dL (11.4-16.0); Lymphocytes # (A) 3.7 k/uL (1.0-4.8); Lymphocytes % (A) 28 %; MCH 27.6 pg (25.0-35.0); MCHC 32.8 g/dL (31.0-37.0); MCV 84.2 fL (80.0-100.0); Mean Platelet Volume 7.1; Monocytes # (A) 0.8 k/uL (0-1.0); Monocytes % (A) 6 %; Neutrophils # (A) 8.3 k/uL (1.3-7.7); Neutrophils % (A) 63 %; Platelet Count 314 k/uL (150-450); RBC 4.38 m/uL (3.80-5.40); RDW 14.9 % (11.5-15.5); WBC 13.2 k/uL (3.8-10.6)
--- NOTE | 2018-11-09 16:32 | XR ---
EXAMINATION TYPE: XR chest 2V DATE OF EXAM: 11/09/2018 COMPARISON: 08/26/2018 HISTORY: Difficulty breathing TECHNIQUE: Frontal and lateral views of the chest are obtained. FINDINGS: Heart and mediastinum are normal. There is a 10 mm nodular density in the lateral right up per lobe. The other lung weaver are clear. There is no pleural effusion. There is 30% anterior wedgin g of T8 vertebral body. IMPRESSION: There is new right upper lobe nodule compared to old exam. Normal heart. Stable thoracic compression fracture.
[2018-11-09 16:42] LABS: ALT 18 U/L (9-52); AST 20 U/L (14-36); Albumin 3.9 g/dL (3.5-5.0); Alkaline Phosphatase 69 U/L (38-126); Anion Gap 9 mmol/L; Blood Urea Nitrogen 12 mg/dL (7-17); Carbon Dioxide 25 mmol/L (22-30); Chloride 99 mmol/L (98-107); Glucose 93 mg/dL (74-99); Magnesium 1.7 mg/dL (1.6-2.3); Potassium 5.1 mmol/L (3.5-5.1); Sodium 133 mmol/L (137-145); Total Bilirubin 0.7 mg/dL (0.2-1.3); Total Protein 6.8 g/dL (6.3-8.2)
[2018-11-09 16:45] LABS: Creatine Kinase 103 U/L (30-135)
[2018-11-09 16:55] LABS: INR 1.3 (<1.2); Partial Thromboplastin Time 31.9 sec (22.0-30.0); Prothrombin Time 13.5 sec (9.0-12.0)
[2018-11-09 16:58] LABS: Creatine Kinase MB 1.7 ng/mL (0.0-2.4); Troponin I <0.012 ng/mL (0.000-0.034)
[2018-11-09] MEDS ORDERED: ALPRAZolam 1 MG TAB PO STA (17:02)
[2018-11-09] MEDS ORDERED: RX INFO: IV CONTRAST WAS GIVEN 1 EACH MISC MISCELLANE PRN (17:26)
[2018-11-09] MEDS ORDERED: ALBUTEROL NEBULIZED 2.5 MG/3 ML INHALATION PRN (17:26)
[2018-11-09] MEDS ORDERED: IPRATROPIUM-ALBUTEROL 3 ML NEB INHALATION PRN (17:44)
--- NOTE | 2018-11-09 19:21 | CT ---
EXAMINATION TYPE: CT chest w con DATE OF EXAM: 11/09/2018 COMPARISON: None HISTORY: Pt coughing up bloody mucous. SOB. Hx COPD, CAD, CVA, TIA. CT DLP: 316 mGycm Automated exposure control for dose reduction was used. CONTRAST: CT scan of the chest is performed with IV Contrast, patient injected with 100 mL of Isovue 300. FINDINGS: There is some patchy atelectasis at the posterior lung bases. There is no pericardial effusion. There is mild pulmonary emphysema. There is some mild patchy infiltrate in the posterior segment right upp er lobe. There is a stellate 1 cm density lateral right upper lobe without calcification. Stomach appears fairly normal. Liver spleen pancreas gallbladder appear normal. Bile ducts are not dilated. There is no adrenal mass. Kidneys show satisfactory contrast opacification. There is no hydronephrosi s. There is T8 compression fracture with 30% anterior wedging. This is stable compared to 08/26/2018 chest x-ray. IMPRESSION: There is some patchy airspace infiltrate in the posterior segment right upper lobe. Ther e is also some pleural patchy infiltrate and atelectasis at the posterior lung bases. Stellate nodula r density right upper lobe. Follow-up is recommended. Mild pulmonary emphysema. Right upper lobe infi ltrate new compared to old CT scan 05/26/2017.
[2018-11-09] MEDS: IPRATROPIUM-ALBUTEROL 3 ML NEB INHALATION SCH (20:36)
[2018-11-09] MEDS ORDERED: AZITHROMYCIN 500 MG TAB PO SCH (21:00)
[2018-11-09] MEDS ORDERED: FAMOTIDINE 20 MG TAB PO SCH (21:00)
[2018-11-09] MEDS: NICOTINE 21MG/24HR PATCH TRANSDERM SCH (22:37)
[2018-11-09] MEDS: GABAPENTIN 300 MG CAP PO SCH (22:37)
[2018-11-09] MEDS: BALSALAZIDE DISODIUM 750 MG CAPSULE PO SCH (22:38)
[2018-11-09] MEDS: DICYCLOMINE 10 MG CAP PO SCH (22:38)
[2018-11-09] MEDS: QUEtiapine 200 MG TAB PO SCH (22:38)
[2018-11-09] MEDS: methylPREDNISolone SOD SUCCI 125 MG/2 ML VIAL IV SCH ×2 (22:45→23:31)
[2018-11-09] MEDS: NON-FORMULARY DRUG (Buprenorphine Hcl/Naloxone Hcl [Suboxone 8 Mg-2 Mg Sl Film] 1 FILM) SL SCH (23:30)
[2018-11-09] MEDS: WARFARIN 5 MG TAB PO SCH (23:30)
[2018-11-10] MEDS: methylPREDNISolone SOD SUCCI 125 MG/2 ML VIAL IV SCH ×4 (06:23→23:52)
[2018-11-10] MEDS: NICOTINE 21MG/24HR PATCH TRANSDERM SCH (09:29)
[2018-11-10] MEDS: METOPROLOL SUCCINATE (ER) 25 MG TAB.ER.24H PO SCH (09:30)
[2018-11-10] MEDS: LORATADINE 10 MG TAB PO SCH (09:30)
[2018-11-10] MEDS: PANTOPRAZOLE 40 MG TABLET PO SCH (09:30)
[2018-11-10] MEDS: GABAPENTIN 300 MG CAP PO SCH ×3 (09:30→21:24)
[2018-11-10] MEDS: NON-FORMULARY DRUG (Buprenorphine Hcl/Naloxone Hcl [Suboxone 8 Mg-2 Mg Sl Film] 1 FILM) SL SCH ×2 (09:39→20:09)
[2018-11-10] MEDS: BALSALAZIDE DISODIUM 750 MG CAPSULE PO SCH ×3 (09:39→21:24)
[2018-11-10] MEDS: DICYCLOMINE 10 MG CAP PO SCH ×4 (09:39→23:53)
[2018-11-10] MEDS: IPRATROPIUM-ALBUTEROL 3 ML NEB INHALATION SCH ×4 (09:57→20:27)
[2018-11-10 11:24] LABS: Glucose,Whole Blood 225 mg/dL (75-99)
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
[2018-11-10] MEDS: INSULIN ASPART 100 UNIT/ML 1 ML 10 ML VIAL SQ SCH ×3 (12:54→20:10)
[2018-11-10] MEDS: FOLIC ACID 1 MG TAB PO SCH (13:00)
[2018-11-10] MEDS: DULoxetine HCL 60 MG CAPSULE.DR PO SCH (13:05)
[2018-11-10 16:57] LABS: Glucose,Whole Blood 203 mg/dL (75-99)
[2018-11-10] MEDS: PIPERACILLIN-TAZOBACTAM 3.375 GM in SODIUM CHLORIDE 0.9% 100 ML IVPB SCH ×2 (17:18→23:52)
[2018-11-10 17:26] LABS: Hemoglobin A1C 5.5 % (4.0-6.0)
[2018-11-10] MEDS: WARFARIN 5 MG TAB PO SCH (17:28)
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
[2018-11-10 20:02] LABS: Glucose,Whole Blood 148 mg/dL (75-99)
[2018-11-10] MEDS: ACETAMINOPHEN TAB 500 MG TAB PO PRN (20:10)
[2018-11-10] MEDS: guaiFENesin 600 MG TABLET.ER PO SCH (20:10)
[2018-11-10] MEDS: QUEtiapine 200 MG TAB PO SCH (20:10)
[2018-11-10] MEDS: hydrOXYzine PAMOATE 25 MG CAP PO PRN (20:10)
[2018-11-10] MEDS: BUDESONIDE 0.5 MG/2 ML NEBU INHALATION SCH (20:28)
[2018-11-11] MEDS: methylPREDNISolone SOD SUCCI 125 MG/2 ML VIAL IV SCH ×2 (05:57→13:14)
[2018-11-11 06:57] LABS: Glucose,Whole Blood 154 mg/dL (75-99)
[2018-11-11] MEDS: INSULIN ASPART 100 UNIT/ML 1 ML 10 ML VIAL SQ SCH ×4 (08:36→20:41)
[2018-11-11] MEDS: NICOTINE 21MG/24HR PATCH TRANSDERM SCH (08:37)
[2018-11-11] MEDS: METOPROLOL SUCCINATE (ER) 25 MG TAB.ER.24H PO SCH (08:37)
[2018-11-11] MEDS: DICYCLOMINE 10 MG CAP PO SCH ×4 (08:37→20:29)
[2018-11-11] MEDS: guaiFENesin 600 MG TABLET.ER PO SCH ×2 (08:37→20:30)
[2018-11-11] MEDS: DULoxetine HCL 60 MG CAPSULE.DR PO SCH (08:37)
[2018-11-11] MEDS: LORATADINE 10 MG TAB PO SCH (08:37)
[2018-11-11] MEDS: CHOLECALCIFEROL 1,000 UNIT TAB PO SCH (08:37)
[2018-11-11] MEDS: GABAPENTIN 300 MG CAP PO SCH ×3 (08:37→20:30)
[2018-11-11] MEDS: BALSALAZIDE DISODIUM 750 MG CAPSULE PO SCH ×3 (08:37→20:29)
[2018-11-11] MEDS: PANTOPRAZOLE 40 MG TABLET PO SCH (08:38)
[2018-11-11] MEDS: PIPERACILLIN-TAZOBACTAM 3.375 GM in SODIUM CHLORIDE 0.9% 100 ML IVPB SCH ×3 (08:44→23:28)
[2018-11-11] MEDS: IPRATROPIUM-ALBUTEROL 3 ML NEB INHALATION SCH ×4 (08:51→21:11)
[2018-11-11] MEDS: BUDESONIDE 0.5 MG/2 ML NEBU INHALATION SCH ×2 (08:51→21:11)
[2018-11-11] MEDS: NON-FORMULARY DRUG (Buprenorphine Hcl/Naloxone Hcl [Suboxone 8 Mg-2 Mg Sl Film] 1 FILM) SL SCH (09:08)
[2018-11-11] MEDS: NALOXONE HCL SL SCH ×2 (10:25→20:40)
[2018-11-11] MEDS: BUPRENORPHINE HCL SL SCH ×2 (10:25→20:40)
[2018-11-11 11:06] LABS: Glucose,Whole Blood 84 mg/dL (75-99)
--- NOTE | 2018-11-11 12:06 | P.PN ---
Subjective Progress Note Date: 11/11/18 HPI: This is a 58-year-old female patient being seen examined and evaluated today while covering for Dr. Cortez. This patient came into the hospital with shortness of breath cough and congestion that had been ongoing and becoming progressively worse over the last few weeks. She does have a cough that has yellow sputum. She is currently a one pack per day smoker for over 45 years. She does follow with Dr. Cortez in the outpatient setting. Upon examination she is resting up in bed on 2 L of supplemental oxygen via nasal cannula. She does utilize nebulizers at home. A CT of the chest was obtained and does show patchy infiltrate in the right upper lobe as well as patchy bibasilar infiltrates and a nodular density in the right upper lobe with emphysema. She is known to have COPD as well. She was admitted to the hospital for further evaluation and treatment. She denies any home oxygen use. 11/11/18- patient is being seen examined and evaluated today on rounds while covering for Dr. Cortez. The patient is resting up in bed on room air. She states she's feeling as if her breathing has improved today. Her CT of the chest is reviewed with her again. She feels less wheezy today. We recommend continuing her oral antibiotics for another 10-14 days once discharged. IV antibiotics while inpatient. A repeat chest CT should be obtained in approximately 4-6 weeks and the outpatient setting. Objective - Vital Signs Vital signs: Vital Signs Temp 97.7 F 11/11/18 07:31 Pulse 77 11/11/18 11:52 Resp 16 11/11/18 11:52 BP 105/59 11/11/18 07:31 Pulse Ox 93 L 11/11/18 08:51 Intake & Output 11/10/18 11/11/18 11/11/18 18:59 06:59 18:59 Intake Total 950 Balance 950 Intake: Oral 950 Other: Voiding Method Toilet Toilet Toilet # Voids 3 2 - Exam GENERAL EXAM: Alert, active, comfortable in no apparent distress. HEAD: Normocephalic. EYES: Normal reaction of pupils, equal size. NOSE: Clear with pink turbinates. THROAT: No erythema or exudates. NECK: No masses, no JVD. CHEST: No chest wall deformity. LUNGS: Lungs noted to be somewhat coarse with some expiratory wheezing. overall much improved. CVS: S1 and S2 normal with no audible mumurs, regular rhythm. ABDOMEN: No hepatosplenomegaly, normal bowel sounds, no guarding or rigidity. EXTREMITIES: No edema noted, pedal pulses palpable. CENTRAL NERVOUS SYSTEM: No focal deficits, tone is normal in all 4 extremities. - Labs CBC & Chem 7: 11/09/18 15:50 11/09/18 15:50 Labs: Abnormal Lab Results - Last 24 Hours (Table) 11/10/18 11/10/18 11/11/18 Range/Units 16:56 20:00 06:56 POC Glucose (mg/dL) 203 H 148 H 154 H (75-99) mg/dL Microbiology - Last 24 Hours (Table) 11/09/18 15:50 Blood Culture - Preliminary Blood No Growth after 24 hours Assessment and Plan Assessment: Assessment Acute exacerbation of COPD Lung nodule Patchy infiltrate versus atelectasis on CT Nicotine dependence Acute hypoxic respiratory failure requiring supplemental oxygen Plan Patient is stable from pulmonary standpoint Medications have been reviewed and will be continued as ordered. Antibiotics should be at least 10-14 days total Obtain sputum culture Initiate and encourage incentive spirometer Chest x-ray and CT reviewed Lung nodule will need repeat follow-up CT in 4-6 weeks, and the outpatient setting Continue with pulmonary hygiene, coughing and deep breathing exercises, and supportive care. Supplemental oxygen to maintain oxygen saturations of 92% or better. Continue nebulizer treatments. GI and DVT prophylaxis. We will continue to monitor labs/results and adjust treatment as necessary. Further recommendations pending. I, the signing physician performed an examination of the patient, discussed and directed their management with the nurse practitioner. I have reviewed the nurse practitioner's note and agree with the documented findings, orders and plan of care. Nurse practitioner acting as a scribe for the signing physician.
[2018-11-11] MEDS: FOLIC ACID 1 MG TAB PO SCH (12:14)
[2018-11-11] MEDS: hydrOXYzine PAMOATE 25 MG CAP PO PRN (14:19)
[2018-11-11] MEDS: ACETAMINOPHEN TAB 500 MG TAB PO PRN (14:21)
[2018-11-11] MEDS: methylPREDNISolone SOD SUCCI 40 MG/ML 1 ML VIAL IV SCH ×2 (16:41→23:28)
[2018-11-11] MEDS: RIVAROXABAN 20 MG TAB PO SCH (16:43)
[2018-11-11 17:08] LABS: Glucose,Whole Blood 85 mg/dL (75-99)
[2018-11-11] MEDS: valACYclovir 500 MG TAB PO SCH (19:07)
--- NOTE | 2018-11-11 19:47 | P.PN ---
Subjective Progress Note Date: 11/11/18 Principal diagnosis: Acute exacerbation of chronic COPD Patient awake alert oriented 3, still getting IV antibiotics IV steroids and cortical is inhaled corticosteroids as well as long-acting inhaled beta agonists Patient doing remarkably well Objective - Vital Signs Vital signs: Vital Signs Temp 97.7 F 11/11/18 07:31 Pulse 78 11/11/18 17:21 Resp 16 11/11/18 17:21 BP 105/59 11/11/18 07:31 Pulse Ox 93 L 11/11/18 08:51 Intake & Output 11/11/18 11/11/18 11/12/18 06:59 18:59 06:59 Intake Total 950 100 Balance 950 100 Intake: Intake, IV Titration 100 Amount Piperacillin-Tazobactam 3 100 .375 gm In Sodium Chloride 0.9% 100 ml @ 25 mls/hr IVPB Q8HR DEX Rx# :[id number] Oral 950 Other: Voiding Method Toilet Toilet # Voids 2 3 - Exam General: [Patient awake, alert and oriented times 3. Patient in no acute distress.] HEENT: [PERRL. EOMI. No pharyngeal erythema or exudate.] Neck: [No adenopathy.] Cardiac: [Heart regular in rate and rhythm. No S3. No S4. No clicks, rubs. No murmur.] Lungs: [Clear to auscultation bilaterally.] Abdomen: [No mass. No organomegaly. Bowel sounds presnt and normoactive in all 4 quadrants.] Extremes: [No edema no cyanosis no claudication normal pulses] : [] Musculoskeletal: [No joint erythema, edema or tenderness.] Skin: [No rash.] Neurologic: [No lateralizing deficits. CN II - XII grossly intact.] Lymphatic: [No adenopathy.] - Labs CBC & Chem 7: 11/09/18 15:50 11/09/18 15:50 Labs: Abnormal Lab Results - Last 24 Hours (Table) 11/10/18 11/11/18 Range/Units 20:00 06:56 POC Glucose (mg/dL) 148 H 154 H (75-99) mg/dL Microbiology - Last 24 Hours (Table) 11/09/18 15:50 Blood Culture - Preliminary Blood No Growth after 48 hours 11/11/18 11:54 Sputum Culture - Preliminary Sputum Assessment and Plan (1) Acute exacerbation of chronic obstructive airways disease Current Visit: Yes Status: Acute Code(s): J44.1 - CHRONIC OBSTRUCTIVE PULMONARY DISEASE W (ACUTE) EXACERBATION SNOMED Code(s): 988494603 (2) Lung nodule Current Visit: Yes Status: Acute Code(s): R91.1 - SOLITARY PULMONARY NODULE SNOMED Code(s): 029571621 (3) Atrial fibrillation Current Visit: No Status: Acute Code(s): I48.91 - UNSPECIFIED ATRIAL FIBRILLATION SNOMED Code(s): 98922720 Plan: Acute exacerbation of chronic COPD patient currently on IV antibiotics and IV steroids updraft treatments Patient's warfarin non-therapeutic, will start on xarelto 20mg in am Having difficulty taking warfarin appropriately and maintaining therapeutics Patient is also getting long-acting beta agonist inhaled long-acting corticosteroid inhaled and albuterol updraft treatments as needed Time with Patient: Greater than 30
[2018-11-11 20:05] LABS: Glucose,Whole Blood 125 mg/dL (75-99)
[2018-11-11] MEDS: QUEtiapine 200 MG TAB PO SCH (20:29)
[2018-11-12 05:43] VITALS: RESP 18
[2018-11-12] MEDS: valACYclovir 500 MG TAB PO SCH (05:54)
[2018-11-12 06:52] LABS: Mycoplasma IgM Antibody 0.79 INDEX (<=0.90)
[2018-11-12 07:02] LABS: Glucose,Whole Blood 138 mg/dL (75-99)
[2018-11-12] MEDS: BUDESONIDE 0.5 MG/2 ML NEBU INHALATION SCH (08:07)
[2018-11-12] MEDS: IPRATROPIUM-ALBUTEROL 3 ML NEB INHALATION SCH ×3 (08:07→15:37)
[2018-11-12] MEDS: NICOTINE 21MG/24HR PATCH TRANSDERM SCH (08:12)
[2018-11-12] MEDS: INSULIN ASPART 100 UNIT/ML 1 ML 10 ML VIAL SQ SCH ×2 (08:12→12:54)
[2018-11-12] MEDS: methylPREDNISolone SOD SUCCI 40 MG/ML 1 ML VIAL IV SCH (08:12)
[2018-11-12] MEDS: BALSALAZIDE DISODIUM 750 MG CAPSULE PO SCH ×2 (08:13→16:41)
[2018-11-12] MEDS: DULoxetine HCL 60 MG CAPSULE.DR PO SCH (08:14)
[2018-11-12] MEDS: GABAPENTIN 300 MG CAP PO SCH ×2 (08:14→16:41)
[2018-11-12] MEDS: DICYCLOMINE 10 MG CAP PO SCH ×2 (08:14→12:54)
[2018-11-12] MEDS: guaiFENesin 600 MG TABLET.ER PO SCH (08:14)
[2018-11-12] MEDS: CHOLECALCIFEROL 1,000 UNIT TAB PO SCH (08:14)
[2018-11-12] MEDS: PANTOPRAZOLE 40 MG TABLET PO SCH (08:15)
[2018-11-12] MEDS: METOPROLOL SUCCINATE (ER) 25 MG TAB.ER.24H PO SCH (08:15)
[2018-11-12] MEDS: LORATADINE 10 MG TAB PO SCH (08:15)
[2018-11-12] MEDS: PIPERACILLIN-TAZOBACTAM 3.375 GM in SODIUM CHLORIDE 0.9% 100 ML IVPB SCH (09:18)
[2018-11-12] MEDS: NALOXONE HCL SL SCH (09:19)
[2018-11-12] MEDS: BUPRENORPHINE HCL SL SCH (09:19)
[2018-11-12 09:46] LABS: Basophils % (A) 0 %; Eosinophils % (A) 0 %; HCT 39.6 % (34.0-46.0); HGB 12.7 gm/dL (11.4-16.0); Lymphocytes # (A) 1.2 k/uL (1.0-4.8); Lymphocytes % (A) 10 %; MCH 28.2 pg (25.0-35.0); MCHC 32.1 g/dL (31.0-37.0); MCV 87.7 fL (80.0-100.0); Mean Platelet Volume 6.2; Monocytes # (A) 0.5 k/uL (0-1.0); Monocytes % (A) 4 %; Neutrophils # (A) 9.4 k/uL (1.3-7.7); Neutrophils % (A) 84 %; Platelet Count 396 k/uL (150-450); RBC 4.52 m/uL (3.80-5.40); RDW 14.8 % (11.5-15.5); WBC 11.1 k/uL (3.8-10.6)
[2018-11-12 10:38] LABS: Albumin 3.8 g/dL (3.5-5.0); Calcium 9.1 mg/dL (8.4-10.2); Potassium 4.4 mmol/L (3.5-5.1); Total Bilirubin 0.3 mg/dL (0.2-1.3); Total Protein 6.4 g/dL (6.3-8.2)
[2018-11-12 11:43] LABS: Glucose,Whole Blood 151 mg/dL (75-99)
--- NOTE | 2018-11-12 11:57 | P.PN ---
Subjective Progress Note Date: 11/12/18 HPI: This is a 58-year-old female patient being seen examined and evaluated today while covering for Dr. Cortez. This patient came into the hospital with shortness of breath cough and congestion that had been ongoing and becoming progressively worse over the last few weeks. She does have a cough that has yellow sputum. She is currently a one pack per day smoker for over 45 years. She does follow with Dr. Cortez in the outpatient setting. Upon examination she is resting up in bed on 2 L of supplemental oxygen via nasal cannula. She does utilize nebulizers at home. A CT of the chest was obtained and does show patchy infiltrate in the right upper lobe as well as patchy bibasilar infiltrates and a nodular density in the right upper lobe with emphysema. She is known to have COPD as well. She was admitted to the hospital for further evaluation and treatment. She denies any home oxygen use. 11/11/18- patient is being seen examined and evaluated today on rounds while covering for Dr. Cortez. The patient is resting up in bed on room air. She states she's feeling as if her breathing has improved today. Her CT of the chest is reviewed with her again. She feels less wheezy today. We recommend continuing her oral antibiotics for another 10-14 days once discharged. IV antibiotics while inpatient. A repeat chest CT should be obtained in approximately 4-6 weeks and the outpatient setting. 11/12/18- patient is being seen examined and evaluated today on rounds while covering for Dr. Cortez. She continues on room air. She understands the need for additional antibiotics upon discharge to ensure clearance. She is afebrile no further complaints. IV steroids will be switched over to oral in the morning. Overall her breathing continues to improve. Objective - Vital Signs Vital signs: Vital Signs Temp 98.1 F 11/12/18 05:00 Pulse 84 11/12/18 11:46 Resp 18 11/12/18 05:00 BP 112/62 11/12/18 05:00 Pulse Ox 93 L 11/12/18 08:06 Intake & Output 11/11/18 11/12/18 11/12/18 18:59 06:59 18:59 Intake Total 100 1410 Balance 100 1410 Intake: Intake, IV Titration 100 100 Amount Piperacillin-Tazobactam 3 100 100 .375 gm In Sodium Chloride 0.9% 100 ml @ 25 mls/hr IVPB Q8HR [facility] Rx# :[id number] Oral 1310 Other: Voiding Method Toilet Toilet Toilet # Voids 3 2 - Exam GENERAL EXAM: Alert, active, comfortable in no apparent distress. HEAD: Normocephalic. EYES: Normal reaction of pupils, equal size. NOSE: Clear with pink turbinates. THROAT: No erythema or exudates. NECK: No masses, no JVD. CHEST: No chest wall deformity. LUNGS: Lungs noted to be somewhat coarse with some faint expiratory wheezing. overall much improved. CVS: S1 and S2 normal with no audible mumurs, regular rhythm. ABDOMEN: No hepatosplenomegaly, normal bowel sounds, no guarding or rigidity. EXTREMITIES: No edema noted, pedal pulses palpable. CENTRAL NERVOUS SYSTEM: No focal deficits, tone is normal in all 4 extremities. - Labs CBC & Chem 7: 11/12/18 08:51 11/12/18 08:51 Labs: Abnormal Lab Results - Last 24 Hours (Table) 11/11/18 11/12/18 11/12/18 Range/Units 20:04 07:01 08:51 WBC 11.1 H (3.8-10.6) k/uL Neutrophils # 9.4 H (1.3-7.7) k/uL BUN (7-17) mg/dL Glucose (74-99) mg/dL POC Glucose (mg/dL) 125 H 138 H (75-99) mg/dL 11/12/18 11/12/18 Range/Units 08:51 11:41 WBC (3.8-10.6) k/uL Neutrophils # (1.3-7.7) k/uL BUN 19 H (7-17) mg/dL Glucose 241 H (74-99) mg/dL POC Glucose (mg/dL) 151 H (75-99) mg/dL Microbiology - Last 24 Hours (Table) 11/11/18 11:54 Gram Stain - Preliminary Sputum Sputum Culture - Preliminary 11/09/18 15:50 Blood Culture - Preliminary Blood No Growth after 48 hours Assessment and Plan Assessment: Assessment Acute exacerbation of COPD Lung nodule Patchy infiltrate versus atelectasis on CT Nicotine dependence Acute hypoxic respiratory failure requiring supplemental oxygen Plan Patient is stable from pulmonary standpoint Medications have been reviewed and will be continued as ordered. Antibiotics should be at least 10-14 days total Steroid taper switch to oral in the morning. Obtain sputum culture Initiate and encourage incentive spirometer Chest x-ray and CT reviewed Lung nodule will need repeat follow-up CT in 4-6 weeks, and the outpatient setting Continue with pulmonary hygiene, coughing and deep breathing exercises, and supportive care. Supplemental oxygen to maintain oxygen saturations of 92% or better. Continue nebulizer treatments. GI and DVT prophylaxis. We will continue to monitor labs/results and adjust treatment as necessary. Further recommendations pending. I, the signing physician performed an examination of the patient, discussed and directed their management with the nurse practitioner. I have reviewed the nurse practitioner's note and agree with the documented findings, orders and plan of care. Nurse practitioner acting as a scribe for the signing physician.
[2018-11-12] MEDS: FOLIC ACID 1 MG TAB PO SCH (12:54)
[2018-11-12 13:12] VITALS: BP 145/89; PULSE 72; TEMP 98.2
--- NOTE | 2018-11-12 16:06 | P.DS ---
Providers Date of admission: 11/09/18 18:00 Expected date of discharge: 11/12/18 Attending physician: Phil Palma Consults: 11/09/18 17:44 Consult Physician Routine Consulting Provider: Jaun Cortez Consult Reason/Comments: COPD, lung nodule Do you want consulting provider notified?: Yes Primary care physician: Phil Palma - Discharge Diagnosis(es) (1) Acute exacerbation of chronic obstructive airways disease Current Visit: Yes Status: Acute (2) Lung nodule We'll repeat CT in 3 months or sooner if symptoms require Current Visit: Yes Status: Acute (3) Atrial fibrillation Will treat with xaelto Current Visit: No Status: Acute Patient Condition at Discharge: Stable Plan - Discharge Summary Discharge Rx Participant: Yes New Discharge Prescriptions: No Action QUEtiapine [SEROquel] 200 mg PO HS Pantoprazole Sodium [Protonix] 40 mg PO DAILY Gabapentin [Neurontin] 300 mg PO TID Metoprolol Succinate (ER) [Toprol XL] 25 mg PO DAILY Buprenorphine HCl/Naloxone HCl [Suboxone 8 mg-2 mg Sl Film] 1 film SL BID Dicyclomine HCl 10 mg PO QID Balsalazide Disodium 2,250 mg PO TID #270 capsule Ranitidine HCl [Zantac] 150 mg PO HS Loratadine [Claritin] 10 mg PO DAILY DULoxetine HCL [Cymbalta] 60 mg PO DAILY tiZANidine HCL [Zanaflex] 2 mg PO DAILY Folic Acid 0.8 mg PO DAILY Cholecalciferol (Vitamin D3) [Vitamin D3] 2,000 unit PO DAILY ALPRAZolam [Xanax] 1 mg PO HS hydrOXYzine PAMOATE 50 mg PO Q8H PRN PRN Reason: Agitation Or Acute Anxiety Ketorolac Tromethamine 10 mg PO Q6H PRN PRN Reason: Pain Control Rivaroxaban [Xarelto Starter Pack] 1 each PO DIRECTED Discharge Medication List Pantoprazole Sodium [Protonix] 40 mg PO DAILY 06/04/17 [History] QUEtiapine [SEROquel] 200 mg PO HS 06/04/17 [History] Gabapentin [Neurontin] 300 mg PO TID 08/29/17 [History] Metoprolol Succinate (ER) [Toprol XL] 25 mg PO DAILY 02/21/18 [History] Buprenorphine HCl/Naloxone HCl [Suboxone 8 mg-2 mg Sl Film] 1 film SL BID [History] Dicyclomine HCl 10 mg PO QID 04/15/18 [History] Balsalazide Disodium 2,250 mg PO TID #270 capsule 04/16/18 [Rx] Cholecalciferol (Vitamin D3) [Vitamin D3] 2,000 unit PO DAILY 11/09/18 [History] DULoxetine HCL [Cymbalta] 60 mg PO DAILY 11/09/18 [History] Folic Acid 0.8 mg PO DAILY 11/09/18 [History] Loratadine [Claritin] 10 mg PO DAILY 11/09/18 [History] Ranitidine HCl [Zantac] 150 mg PO HS 11/09/18 [History] tiZANidine HCL [Zanaflex] 2 mg PO DAILY 11/09/18 [History] ALPRAZolam [Xanax] 1 mg PO HS 11/10/18 [History] Ketorolac Tromethamine 10 mg PO Q6H PRN 11/10/18 [History] hydrOXYzine PAMOATE 50 mg PO Q8H PRN 11/10/18 [History] Rivaroxaban [Xarelto Starter Pack] 1 each PO DIRECTED 11/12/18 [History] Follow up Appointment(s)/Referral(s): Phil Palma MD [Primary Care Provider] - 1-2 days Jaun Cortez MD [STAFF PHYSICIAN] - 1 Week Activity/Diet/Wound Care/Special Instructions: Pt would like discharge rx.
[2018-11-12] MEDS: RIVAROXABAN 20 MG TAB PO SCH (16:48)
[2018-11-12] MEDS ORDERED: AMOXIC-POT CLAV 875-125MG 1 EACH TAB PO SCH (21:00)
[2018-11-13] MEDS ORDERED: predniSONE 20 MG TAB PO SCH (09:00)
== END 2018-11-12 17:00 | disposition home or self-care (01) | DRG 190 ==
LOC: EC 15:14 → 3NMEDONC 17:46 → INTOOBSV 18:00 → OBSVTOIN 18:00
PROVIDERS: ADMIT Family Medicine; ATTEND Family Medicine
DX: J43.9 Emphysema, unspecified (principal); J96.01 Acute respiratory failure with hypoxia; E78.5 Hyperlipidemia, unspecified; F17.210 Nicotine dependence, cigarettes, uncomplicated; F31.9 Bipolar disorder, unspecified; F41.9 Anxiety disorder, unspecified; I10 Essential (primary) hypertension; I25.10 Atherosclerotic heart disease of native coronary artery without angina pectoris; I48.91 Unspecified atrial fibrillation; K21.9 Gastro-esophageal reflux disease without esophagitis; Z79.01 Long term (current) use of anticoagulants; Z79.899 Other long term (current) drug therapy; Z80.0 Family history of malignant neoplasm of digestive organs; Z82.49 Family history of ischemic heart disease and other diseases of the circulatory system; Z83.3 Family history of diabetes mellitus; Z86.73 Personal history of transient ischemic attack (TIA), and cerebral infarction without residual deficits; Z79.891 Long term (current) use of opiate analgesic; Z88.1 Allergy status to other antibiotic agents; Z88.8 Allergy status to other drugs, medicaments and biological substances; R91.1 Solitary pulmonary nodule
CPT/HCPCS: 36415; 71046; 71260; 80053; 82550; 82553; 83036; 83605; 83735; 83880; 84484; 85025; 85610; 85730; 86738; 87040; 87070; 87205; 87449; 93005; 94640; 94760; 96374; 99285

== ENCOUNTER 2019-02-09 20:15 | Inpatient (IN) | payer OTHER ==
[2019-02-09] MEDS ORDERED: KETOROLAC 30 MG/ML 1 ML VIAL IVP STA (21:17)
[2019-02-09] MEDS ORDERED: ONDANSETRON 4 MG/2 ML VIAL IVP STA (21:17)
[2019-02-09] MEDS ORDERED: SODIUM CHLORIDE 0.9% 1,000 ML IV ONE (21:17)
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
[2019-02-09 21:47] LABS: Basophils % (A) 0 %; Eosinophils # (A) 0.2 k/uL (0-0.7); Eosinophils % (A) 1 %; HCT 47.2 % (34.0-46.0); HGB 15.6 gm/dL (11.4-16.0); Lymphocytes # (A) 1.9 k/uL (1.0-4.8); Lymphocytes % (A) 13 %; MCH 27.9 pg (25.0-35.0); MCV 84.6 fL (80.0-100.0); Mean Platelet Volume 6.9; Monocytes # (A) 0.8 k/uL (0-1.0); Monocytes % (A) 5 %; Neutrophils # (A) 12.2 k/uL (1.3-7.7); Neutrophils % (A) 80 %; Platelet Count 285 k/uL (150-450); RBC 5.58 m/uL (3.80-5.40); RDW 14.7 % (11.5-15.5); WBC 15.2 k/uL (3.8-10.6)
[2019-02-09 22:04] LABS: ALT 24 U/L (9-52); AST 23 U/L (14-36); Albumin 4.9 g/dL (3.5-5.0); Alkaline Phosphatase 88 U/L (38-126); Amylase 63 U/L (30-110); Anion Gap 13 mmol/L; Blood Urea Nitrogen 15 mg/dL (7-17); Calcium 9.9 mg/dL (8.4-10.2); Carbon Dioxide 27 mmol/L (22-30); Chloride 99 mmol/L (98-107); Glucose 124 mg/dL (74-99); Lipase 89 U/L (23-300); Potassium 4.2 mmol/L (3.5-5.1); Sodium 139 mmol/L (137-145); Total Bilirubin 0.7 mg/dL (0.2-1.3); Total Protein 8.1 g/dL (6.3-8.2)
[2019-02-09 22:15] LABS: Prothrombin Time 78.6 sec (9.0-12.0)
[2019-02-09 22:23] LABS: Partial Thromboplastin Time 64.1 sec (22.0-30.0)
[2019-02-09 22:45] LABS: Hyaline Casts,Urine 101 /lpf (0-2); Mucus,Urine Many /hpf; Squamous Epithelial Cell,Urine 100 /hpf (0-4); WBC,Urine 155 /hpf (0-5)
[2019-02-09 22:47] LABS: Appearance,Urine Bloody (Clear); Color,Urine Red
[2019-02-09 22:48] LABS: RBC,Urine >182 /hpf (0-5)
--- NOTE | 2019-02-10 00:56 | CT ---
EXAM: CT Angiography Abdomen and Pelvis Without And With Intravenous Contrast CLINICAL HISTORY: ITS.REASON CT Reason: Pain TECHNIQUE: Axial computed tomographic angiography images of the abdomen and pelvis without and with intravenous contrast. CTDI is 70.2 mGy and DLP is 1123. 6 mGy-cm. This CT exam was performed using one or more of the following dose reduction techniques: automated exposure control, adjustment of the mA and/or kV according to patient size, and/or use of iterative reconstruction technique. MIP reconstructed images were created and reviewed. COMPARISON: CT abdomen-pelvis 04/15/2018 FINDINGS: VASCULATURE: Aorta: Mild calcific atherosclerotic disease. No abdominal aortic aneurysm or evidence of dissection. Celiac trunk and mesenteric arteries: No occlusion or significant stenosis. Renal arteries: No occlusion or significant stenosis. Iliac arteries: No occlusion or significant stenosis. Lung bases: Mild bibasilar subsegmental atelectasis or fibrotic scarring. ABDOMEN: Liver: Hepatic fatty infiltration. No focal hepatic abnormalities identified. Gallbladder and bile ducts: Gallbladder layering density which may reflect sludge or multiple small gallstones. No evidence of biliary dilatation. Pancreas: 1.2 cm low-density lesion involving uncinate process of pancreas which is nonspecific. No significant change as compared to prior CT 04/15/2018. No peripancreatic inflammatory changes or fluid collections. Spleen: Unremarkable. Adrenals: No adrenal masses. Kidneys and ureters: Bilateral renal enhancement with evidence of mild multifocal bilateral renal parenchymal scarring/thinning. No renal calculi identified. Asymmetric right perinephric and periureteral stranding. Mild right hydronephrosis and right ureteral distention. No definite ureteral calculus identified. Findings raise possibility of recent passage of calculus or possible infection. Stomach and bowel: No evidence of bowel obstruction or pneumoperitoneum. Colonic diverticulosis including multiple right-sided colonic diverticula. Colon is nondistended limiting colonic evaluation. PELVIS: Appendix: Appendix not identified. No secondary findings of appendicitis. Bladder: Urinary bladder is nondistended. No bladder calculi. Reproductive: Unremarkable as visualized. ABDOMEN and PELVIS: Intraperitoneal space: See above. Bones/joints: No acute bony abnormalities. Lymph nodes: No evidence of lymphadenopathy. IMPRESSION: No abdominal aortic aneurysm or evidence of dissection. No major arterial occlusion identified. Asymmetric right perinephric and periureteral stranding. Mild right hydronephrosis and right ureteral distention. No definite ureteral calculus identified. Findings raise possibility of recent passage of calculus or possible infection. Clinical correlation is recommended. Gallbladder density suggesting sludge or possible multiple small gallstones. Hepatic fatty infiltration. Small approximately 1.2 cm low-density lesion involving uncinate process of pancreas which is nonspecific, not significantly changed as compared to CT 04/15/2018. Short-term six-month CT follow-up recommended. <MYCVCSECTION> Critical [employer] 02/10/19 01:07 Verify Receipt Verified receipt with [facility] in the ER, report for Dr. Moyer on 02/10 01:07 (-04:00)
[2019-02-10] MEDS ORDERED: PHYTONADIONE ORAL 5 MG/5 ML ORAL.SYRG PO STA ×2 (01:24→07:56)
[2019-02-10] MEDS ORDERED: TAMSULOSIN 0.4 MG CAP.ER.24H PO STA (01:24)
[2019-02-10] MEDS ORDERED: METHADONE 10 MG TAB PO STA (01:24)
[2019-02-10] MEDS ORDERED: NALOXONE 0.4 MG/ML 1 ML VIAL IV PRN (01:32)
[2019-02-10] MEDS ORDERED: ACETAMINOPHEN TAB 325 MG TAB PO PRN (02:11)
[2019-02-10] MEDS: SODIUM CHLORIDE 0.9% 1,000 ML IV SCH ×2 (02:45→16:26)
[2019-02-10 04:12] LABS: Prothrombin Time 83.3 sec (9.0-12.0)
[2019-02-10 04:41] LABS: INR 8.5 (<1.2)
[2019-02-10 04:59] LABS: Albumin 3.8 g/dL (3.5-5.0); Calcium 8.5 mg/dL (8.4-10.2); Potassium 4.1 mmol/L (3.5-5.1); Total Bilirubin 0.6 mg/dL (0.2-1.3); Total Protein 6.4 g/dL (6.3-8.2)
[2019-02-10] MEDS: IPRATROPIUM-ALBUTEROL 3 ML NEB INHALATION SCH ×4 (07:11→19:18)
[2019-02-10] MEDS ORDERED: ALBUTEROL NEBULIZED 2.5 MG/3 ML INHALATION SCH (08:00)
[2019-02-10] MEDS ORDERED: FOLIC ACID 0.8 MG PO SCH (09:00)
[2019-02-10] MEDS: METOPROLOL SUCCINATE (ER) 25 MG TAB.ER.24H PO SCH (09:39)
[2019-02-10] MEDS: DULoxetine HCL 60 MG CAPSULE.DR PO SCH (09:39)
[2019-02-10] MEDS: DICYCLOMINE 10 MG CAP PO SCH ×4 (09:39→22:16)
[2019-02-10] MEDS: LORATADINE 10 MG TAB PO SCH (09:39)
[2019-02-10] MEDS: TAMSULOSIN 0.4 MG CAP.ER.24H PO SCH (09:39)
[2019-02-10] MEDS: PANTOPRAZOLE 40 MG TABLET PO SCH (09:39)
[2019-02-10] MEDS: GABAPENTIN 300 MG CAP PO SCH ×3 (09:39→22:14)
[2019-02-10] MEDS: CHOLECALCIFEROL 1,000 UNIT TAB PO SCH (09:40)
[2019-02-10] MEDS: BALSALAZIDE DISODIUM 750 MG CAPSULE PO SCH ×3 (09:40→22:14)
[2019-02-10 13:04] LABS: Prothrombin Time 61.9 sec (9.0-12.0)
[2019-02-10 13:20] LABS: INR 6.4 (<1.2)
[2019-02-10 16:56] LABS: Prothrombin Time 38.9 sec (9.0-12.0)
[2019-02-10] MEDS ORDERED: FAMOTIDINE 20 MG TAB PO SCH (21:00)
[2019-02-10] MEDS ORDERED: ALPRAZolam 1 MG TAB PO SCH (21:00)
[2019-02-10] MEDS ORDERED: QUEtiapine 100 MG TAB PO SCH (21:00)
[2019-02-11] MEDS: SODIUM CHLORIDE 0.9% 1,000 ML IV SCH (05:45)
[2019-02-11] MEDS: IPRATROPIUM-ALBUTEROL 3 ML NEB INHALATION SCH ×2 (06:58→10:38)
[2019-02-11] MEDS: CHOLECALCIFEROL 1,000 UNIT TAB PO SCH (07:43)
[2019-02-11] MEDS: METOPROLOL SUCCINATE (ER) 25 MG TAB.ER.24H PO SCH (07:44)
[2019-02-11] MEDS: TAMSULOSIN 0.4 MG CAP.ER.24H PO SCH (07:44)
[2019-02-11] MEDS: LORATADINE 10 MG TAB PO SCH (07:44)
[2019-02-11] MEDS: DICYCLOMINE 10 MG CAP PO SCH ×2 (07:44→14:52)
[2019-02-11] MEDS: BALSALAZIDE DISODIUM 750 MG CAPSULE PO SCH (07:44)
[2019-02-11] MEDS: GABAPENTIN 300 MG CAP PO SCH (07:44)
[2019-02-11] MEDS: PANTOPRAZOLE 40 MG TABLET PO SCH (07:44)
[2019-02-11] MEDS: DULoxetine HCL 60 MG CAPSULE.DR PO SCH (07:44)
[2019-02-11 11:04] LABS: Basophils # (A) 0.1 k/uL (0-0.2); Basophils % (A) 1 %; Eosinophils # (A) 0.2 k/uL (0-0.7); Eosinophils % (A) 2 %; HCT 37.4 % (34.0-46.0); Lymphocytes # (A) 2.5 k/uL (1.0-4.8); Lymphocytes % (A) 22 %; MCH 26.8 pg (25.0-35.0); MCV 86.3 fL (80.0-100.0); Mean Platelet Volume 7.2; Monocytes # (A) 0.7 k/uL (0-1.0); Monocytes % (A) 6 %; Neutrophils # (A) 7.7 k/uL (1.3-7.7); Neutrophils % (A) 69 %; Platelet Count 280 k/uL (150-450); RBC 4.34 m/uL (3.80-5.40); RDW 14.5 % (11.5-15.5); WBC 11.1 k/uL (3.8-10.6)
[2019-02-11] MEDS ORDERED: IPRATROPIUM-ALBUTEROL 3 ML NEB INHALATION PRN (11:07)
[2019-02-11 11:22] LABS: HGB 11.6 gm/dL (11.4-16.0)
[2019-02-11 11:30] LABS: Appearance,Urine Clear (Clear); Bacteria,Urine Rare /hpf; Bilirubin,Urine Negative (Negative); Blood,Urine Moderate (Negative); Color,Urine Yellow; Glucose,Urine (UA) Negative (Negative); Ketones,Urine Negative (Negative); Leukocyte Esterase,Urine Negative (Negative); Mucus,Urine Rare /hpf; Nitrite,Urine Negative (Negative); Protein,Urine Trace (Negative); RBC,Urine 79 /hpf (0-5); Specific Gravity,Urine 1.014 (1.001-1.035); Squamous Epithelial Cell,Urine 1 /hpf (0-4); Urobilinogen,Urine <2.0 mg/dL (<2.0)
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
[2019-02-11 11:59] LABS: Anion Gap 3 mmol/L; Blood Urea Nitrogen 17 mg/dL (7-17); Calcium 8.3 mg/dL (8.4-10.2); Carbon Dioxide 28 mmol/L (22-30); Chloride 110 mmol/L (98-107); Glucose 135 mg/dL (74-99); Potassium 3.6 mmol/L (3.5-5.1); Sodium 141 mmol/L (137-145)
[2019-02-11 12:20] VITALS: BP 108/62; PULSE 71; RESP 18; TEMP 98.4
[2019-02-11 13:36] LABS: INR 1.2 (<1.2); Prothrombin Time 12.7 sec (9.0-12.0)
[2019-02-11 13:59] VITALS: BMI 25.5
--- NOTE | 2019-02-11 15:48 | P.DS ---
Providers Date of admission: 02/10/19 01:50 Expected date of discharge: 02/11/19 Attending physician: Vidal Rubio Primary care physician: Phil Louie [facility] Course: Final Diagnoses: -Coagulopathy, in a patient with chronic atrial fibrillation on Coumadin. Coumadin on hold. -Possible renal calculi, passed -Possible acute UTI, doubtful, asymptomatic, culture pending -1.2 cm low-density pancreas lesion, no significant change from prior CT of 04/15/2018. Recommend short-term [address] follow-up outpatient. -Fatty liver -GallBladder density possible sludge or possible multiple small gallstones -Mild right hydronephrosis, right ureteral distention with right perinephric and periureteral stranding, outpatient follow-up with nephrology-to be arranged by PCP. -CAD, astringent -Ongoing nicotine, marijuana and alcohol use -COPD, nonactive -History of CVA/TIA -Bipolar -Anxiety, depression -History of polysubstance abuse on Suboxone. Past history of crack, cocaine- reports last used 1 year ago. 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 Hospital course:This is a 58-year-old female brought into the ER by EMS with hematuria, mild suprapubic and low back pain , nausea ,vomiting, chills. Denies diarrhea. Denies fever. Patient also presented with coagulopathy with INR 8.0 on admission, went up to 8.5, receiving multiple doses of vitamin K and now down to 4. Reports she had been receiving samples of Eliquis, Xarelto. Approximately 3 weeks ago, placed on Coumadin and had not had her PT/INR rechecked. Patient reports PCP office trying to receive authorization for Xarelto . Denies hemoptysis, hematemesis, hematochezia,melena. Denies any painful urination, frequency. Denies any chest pain, palpitations or increasing shortness of breath. Denies any lightheadedness dizziness or focal deficits. No syncope. States chronic back pain with no radiation down either leg, no numbness or tingling. Abdomen/pelvis CT reported no abdominal aortic aneurysm or evidence of dissection, no major arterial occlusion ,fatty liver, gallbladder density, possible sludge or multiple small gallstones without biliary dilatation, 1.2 cm low-density pancreatic lesion, nonspecific-no significant change compared to prior CT 710/2017, asymmetric right perinephric and periureteral stranding, mild right hydronephrosis and right ureteral distention with no definite ureteral calculus identified-possible recent passage of calculus versus possible infection. UA reported WBC of 100 with Hyaline casts, RBCs greater than 182. Febrile on admission with T-max of 99.1, currently afebrile. WBC on admission 15.2. BUN/creatinine 15/0.66 on admission.VSS. Significant improvement in back pain and reports no suprapubic/flank pain this morning. Denies hematuria this morning. Significant clinical improvement. Ambulating in hallway without difficulty, tolerated exertion well. Denies suprapubic pain/discomfort. Back pain improved.Afebrile. Follow-up UA reporting rare urine bacteria, negative for leukocytes esterase, culture pending with results to be faxed to PCPs office. Discharge on 3 days empiric antibiotics of Ceftin. Coumadin dose has been decreased. Patient instructed to have PT/INR drawn this 02/13/2019. Denies chest pain, palpitations, shortness of breath. Denies lightheadedness dizziness or focal deficits. No acute bleeding, hemoglobin 11.6, INR 1.2. Significant clinical improvement. Patient is being discharged home in stable condition with guarded prognosis. EXAM: GENERAL: And O 3, no acute distress CARDIOVASCULAR: S1, S2 regular. No murmur RESPIRATION: Breath sounds diminished in the bases. No rhonchi or crackles. ABDOMEN: Soft, nontender . No guaarding,Bowel sounds heard NERVOUS SYSTEM: Cranial N 2-12 grossly normal. Moves all 4 limbs. Diffuse weakness No focal deficits. No sensory deficit. The impression and plan of care has been dictated as directed. : I performed a history and examination of this patient, discussed the same with the dictator. I agree with the dictator's note ,documented as a scribe. Any additional findings or plans will be noted. Time taken: 35 minutes Patient Condition at Discharge: Stable Plan - Discharge Summary Discharge Rx Participant: No New Discharge Prescriptions: New Cefuroxime Axetil [Ceftin] 500 mg PO BID 3 Days #6 tab Warfarin [Coumadin] 1.5 mg PO DAILY@1800 #5 tab Continue QUEtiapine [SEROquel] 200 mg PO HS Pantoprazole Sodium [Protonix] 40 mg PO DAILY Gabapentin [Neurontin] 300 mg PO TID Metoprolol Succinate (ER) [Toprol XL] 25 mg PO DAILY Buprenorphine HCl/Naloxone HCl [Suboxone 8 mg-2 mg Sl Film] 1 film SL BID Dicyclomine HCl 10 mg PO QID Balsalazide Disodium 2,250 mg PO TID #270 capsule Loratadine [Claritin] 10 mg PO DAILY DULoxetine HCL [Cymbalta] 60 mg PO DAILY Folic Acid 0.8 mg PO DAILY Cholecalciferol (Vitamin D3) [Vitamin D3] 2,000 unit PO DAILY ALPRAZolam [Xanax] 1 mg PO HS Ipratropium-Albuterol Nebulize [Duoneb 0.5 mg-3 mg/3 ml Soln] 3 ml INHALATION RT-QID Albuterol Inhaler [Ventolin Hfa Inhaler] 2 puff INHALATION RT-QID Discontinued Ranitidine HCl [Zantac] 150 mg PO HS Warfarin [Coumadin] 2.5 mg PO DAILY Discharge Medication List Pantoprazole Sodium [Protonix] 40 mg PO DAILY 06/04/17 [History] QUEtiapine [SEROquel] 200 mg PO HS 06/04/17 [History] Gabapentin [Neurontin] 300 mg PO TID 08/29/17 [History] Metoprolol Succinate (ER) [Toprol XL] 25 mg PO DAILY 02/21/18 [History] Buprenorphine HCl/Naloxone HCl [Suboxone 8 mg-2 mg Sl Film] 1 film SL BID 04/15/18 [History] Dicyclomine HCl 10 mg PO QID 04/15/18 [History] Balsalazide Disodium 2,250 mg PO TID #270 capsule 04/16/18 [Rx] Cholecalciferol (Vitamin D3) [Vitamin D3] 2,000 unit PO DAILY 11/09/18 [History] DULoxetine HCL [Cymbalta] 60 mg PO DAILY 11/09/18 [History] Folic Acid 0.8 mg PO DAILY 11/09/18 [History] Loratadine [Claritin] 10 mg PO DAILY 11/09/18 [History] ALPRAZolam [Xanax] 1 mg PO HS 11/10/18 [History] Albuterol Inhaler [Ventolin Hfa Inhaler] 2 puff INHALATION RT-QID 02/09/19 [History] Ipratropium-Albuterol Nebulize [Duoneb 0.5 mg-3 mg/3 ml Soln] 3 ml INHALATION RT-QID 02/09/19 [History] Cefuroxime Axetil [Ceftin] 500 mg PO BID 3 Days #6 tab 02/11/19 [Rx] Warfarin [Coumadin] 1.5 mg PO DAILY@1800 #5 tab 02/11/19 [Rx] Follow up Appointment(s)/Referral(s): Phil Palma MD [Primary Care Provider] - 02/13/19 11:00 am Ambulatory/Diagnostic Orders: Prothrombin Time INR [LAB.AMB] Time Frame: 02/13/19, Location: None Selected Patient Instructions/Handouts: Kidney Stones (DC) Activity/Diet/Wound Care/Special Instructions: Pending repeat UA with culture. Final urine culture results to be faxed to Dr. Palma's office
[2019-02-11] MEDS ORDERED: WARFARIN 1.5 MG TAB PO SCH (18:00)
== END 2019-02-11 15:35 | disposition home or self-care (01) | DRG 813 ==
LOC: EC 20:15 → 4SSUR 02-10 01:50 → 3SCARD 02-10 04:48 → 4MS4W 02-10 13:58
PROVIDERS: ADMIT Family Medicine; ATTEND Family Medicine
DX: D68.32 Hemorrhagic disorder due to extrinsic circulating anticoagulants (principal); N13.2 Hydronephrosis with renal and ureteral calculous obstruction; K50.90 Crohn's disease, unspecified, without complications; R31.9 Hematuria, unspecified; T45.515A Adverse effect of anticoagulants, initial encounter; E78.5 Hyperlipidemia, unspecified; F17.210 Nicotine dependence, cigarettes, uncomplicated; F31.9 Bipolar disorder, unspecified; F41.9 Anxiety disorder, unspecified; G89.29 Other chronic pain; I10 Essential (primary) hypertension; I25.10 Atherosclerotic heart disease of native coronary artery without angina pectoris; I48.2 Chronic atrial fibrillation; J44.9 Chronic obstructive pulmonary disease, unspecified; K21.9 Gastro-esophageal reflux disease without esophagitis; K76.0 Fatty (change of) liver, not elsewhere classified; Z79.01 Long term (current) use of anticoagulants; Z79.899 Other long term (current) drug therapy; Z80.0 Family history of malignant neoplasm of digestive organs; Z82.49 Family history of ischemic heart disease and other diseases of the circulatory system; Z83.3 Family history of diabetes mellitus; Z86.73 Personal history of transient ischemic attack (TIA), and cerebral infarction without residual deficits; F14.11 Cocaine abuse, in remission; R91.1 Solitary pulmonary nodule; Z87.01 Personal history of pneumonia (recurrent); Z88.1 Allergy status to other antibiotic agents; Z88.8 Allergy status to other drugs, medicaments and biological substances; K80.20 Calculus of gallbladder without cholecystitis without obstruction
CPT/HCPCS: 36415; 74174; 80048; 80053; 81001; 82150; 83690; 85025; 85610; 85730; 87040; 87086; 94640; 96361; 96365; 96375; 99285

== ENCOUNTER 2019-03-18 08:03 | Emergency (ER) | payer OTHER ==
[2019-03-18 08:11] VITALS: TEMP 98.5
[2019-03-18] MEDS ORDERED: methylPREDNISolone SOD SUCCI 125 MG/2 ML VIAL IM ONE (08:32)
[2019-03-18] MEDS ORDERED: IPRATROPIUM-ALBUTEROL 3 ML NEB INHALATION STA (08:32)
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
--- NOTE | 2019-03-18 09:12 | XR ---
EXAMINATION TYPE: XR chest 2V DATE OF EXAM: 03/18/2019 COMPARISON: 11/09/2018 HISTORY: Cough TECHNIQUE: Frontal and lateral views of the chest are obtained. FINDINGS: There is no focal air space opacity, pulmonary vascular congestion, or pneumothorax seen. The cardiac silhouette size is within normal limits. Pulmonary hyperinflation and flattening of the diaphragms is seen. This relates underlying COPD. Cardiac loop recorder is noted. Stable compression deformity of the midthoracic spine is present with diffuse osseous demineralization.. IMPRESSION: Minimal left basilar airspace disease given the costophrenic angle on the lateral view l ikely relates to atelectasis. Underlying COPD.
[2019-03-18 10:00] VITALS: BP 120/84; PULSE 107; RESP 18
== END 2019-03-18 10:27 | disposition home or self-care (01) ==
LOC: EC 08:03
DX: J20.9 Acute bronchitis, unspecified (principal); J44.0 Chronic obstructive pulmonary disease with (acute) lower respiratory infection; I48.91 Unspecified atrial fibrillation; I25.119 Atherosclerotic heart disease of native coronary artery with unspecified angina pectoris; K21.9 Gastro-esophageal reflux disease without esophagitis; E78.5 Hyperlipidemia, unspecified; I10 Essential (primary) hypertension; K58.9 Irritable bowel syndrome, unspecified; F19.11 Other psychoactive substance abuse, in remission; F31.9 Bipolar disorder, unspecified; F41.9 Anxiety disorder, unspecified; F17.200 Nicotine dependence, unspecified, uncomplicated; Z88.1 Allergy status to other antibiotic agents; Z88.8 Allergy status to other drugs, medicaments and biological substances; Z79.01 Long term (current) use of anticoagulants; Z79.899 Other long term (current) drug therapy; Z86.73 Personal history of transient ischemic attack (TIA), and cerebral infarction without residual deficits; Z87.01 Personal history of pneumonia (recurrent); Z82.49 Family history of ischemic heart disease and other diseases of the circulatory system
CPT/HCPCS: 94640; 71046; 99285; 96372; J2930

== ENCOUNTER → 2019-05-04 | Day surgery (SDC) | payer OTHER | LOC: CATHEP 08:33 | PROVIDERS: ATTEND Internal Medicine Clinical Cardiac Electrophysiology | DX: Z45.09 Encounter for adjustment and management of other cardiac device (principal); Z53.8 Procedure and treatment not carried out for other reasons ==

== ENCOUNTER 2019-05-18 10:08 | Day surgery (SDC) | payer OTHER ==
[~2019-05-18 10:08] MED LIST: SODIUM CHLORIDE 0.9% 1,000 ML IV SCH
[2019-05-18 10:58] VITALS: RESP 16; TEMP 98.5
[2019-05-18 11:10] LABS: INR 2.3 (<1.2); Prothrombin Time 22.1 sec (9.0-12.0)
[2019-05-18] MEDS ORDERED: LIDOCAINE 1% INJ 10MG/ML (20 ML MDV) ONE (11:17)
[2019-05-18] MEDS: MIDAZOLAM PF (FBP) 2 MG/2 ML VIAL IV ONE ×2 (11:30→11:34)
[2019-05-18] MEDS ORDERED: LIDOCAINE 1% INJ 10MG/ML (20 ML MDV) SQ ONE ×2 (11:34)
[2019-05-18] MEDS ORDERED: fentaNYL (PF) 50 MCG/ML 2 ML AMP ONE (11:38)
[2019-05-18] MEDS ORDERED: fentaNYL (PF) 50 MCG/ML 2 ML AMP IV ONE (11:38)
--- NOTE | 2019-05-18 11:57 | P.PCN ---
Preoperative Diagnosis: Diagnosis/Indication: Loop was at [facility] Loop explant under sedation and local anesthesia Operators: Dr. Guerra and Michelle Holt PA-C Patient was brought to the EP lab in a fasting state. Written informed consent was obtained prior to the procedure. The subcutaneous device was successfully explanted under local anesthesia. Preoperative antibiotics were administered. The wound was closed in layers and dressed per protocol. Result: Successful loop monitor explantation.
--- NOTE | 2019-05-18 13:54 | P.PCN ---
Preoperative Diagnosis: Patient underwent EP procedure under conscious sedation/moderate sedation under Dr. Guerra's supervision, monitoring of the level of consciousness and physiologic parameters including but not limited to vital signs and oxygenation. Patient tolerated the procedure well without any acute complications. Start time: 1133 Stop time: 1148
[2019-05-18 14:19] VITALS: BP 115/62; PULSE 90
== END 2019-05-18 14:10 | disposition home or self-care (01) ==
LOC: CATHEP 10:08
PROVIDERS: ATTEND Internal Medicine Clinical Cardiac Electrophysiology
DX: I42.1 Obstructive hypertrophic cardiomyopathy (principal); Z45.09 Encounter for adjustment and management of other cardiac device; I10 Essential (primary) hypertension; E78.5 Hyperlipidemia, unspecified; F17.210 Nicotine dependence, cigarettes, uncomplicated; Z86.73 Personal history of transient ischemic attack (TIA), and cerebral infarction without residual deficits; Z79.01 Long term (current) use of anticoagulants; Z79.82 Long term (current) use of aspirin; Z79.899 Other long term (current) drug therapy; Z88.8 Allergy status to other drugs, medicaments and biological substances
CPT/HCPCS: 33286; 85610; J0690; J2001; J3010; J2250

== ENCOUNTER 2019-07-01 18:53 | Emergency (ER) | payer OTHER ==
[2019-07-01 19:22] VITALS: BP 106/67; PULSE 99; RESP 16; TEMP 98.6
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
== END 2019-07-01 20:34 | disposition home or self-care (01) ==
LOC: EC 18:53
DX: M70.21 Olecranon bursitis, right elbow (principal); I48.91 Unspecified atrial fibrillation; I25.119 Atherosclerotic heart disease of native coronary artery with unspecified angina pectoris; K21.9 Gastro-esophageal reflux disease without esophagitis; E78.5 Hyperlipidemia, unspecified; J44.9 Chronic obstructive pulmonary disease, unspecified; F41.9 Anxiety disorder, unspecified; F31.9 Bipolar disorder, unspecified; I10 Essential (primary) hypertension; M19.90 Unspecified osteoarthritis, unspecified site; F17.200 Nicotine dependence, unspecified, uncomplicated; Z79.51 Long term (current) use of inhaled steroids; Z79.01 Long term (current) use of anticoagulants; Z79.899 Other long term (current) drug therapy; Z88.1 Allergy status to other antibiotic agents; Z88.8 Allergy status to other drugs, medicaments and biological substances; Z98.890 Other specified postprocedural states; Z86.73 Personal history of transient ischemic attack (TIA), and cerebral infarction without residual deficits
CPT/HCPCS: 10160; 99283

== ENCOUNTER → 2019-10-20 | Outpatient (CLI) | payer OTHER ==
--- NOTE | 2019-10-20 11:48 | XR ---
EXAMINATION TYPE: XR ankle complete RT DATE OF EXAM: 10/20/2019 CLINICAL HISTORY: Right ankle pain TECHNIQUE: Frontal, lateral and oblique images of the right ankle are obtained. COMPARISON: None. FINDINGS: There is no acute fracture/dislocation evident in the right ankle. There is a lateral proj ecting osteophyte from the talus towards the tibial creating a pseudoarticulation. Mild tibial talar joint space narrowing is seen. Small Achilles heel spur. The ankle mortise appears within normal limi ts. The overlying soft tissue appears unremarkable. IMPRESSION: 1. No acute fracture or dislocation in the right ankle. 2. Large laterally projecting osteophyte from the talus. Pseudoarticulation with the fibula. This cou ld be degenerative or sequela of trauma. 2. Mild hindfoot arthropathy with tibiotalar joint space narrowing. Small Achilles heel spur.
--- NOTE | 2019-10-20 11:58 | XR ---
EXAMINATION TYPE: XR knee complete RT DATE OF EXAM: 10/20/2019 CLINICAL HISTORY: Right knee pain TECHNIQUE: Three views of the right knee are obtained. COMPARISON: None. FINDINGS: There is no acute fracture/dislocation evident in right knee. The tri-compartment joint s paces appear aligned. There is medial compartment joint space narrowing and opposing surface sclerosi s with small marginal osteophytes. Very small patellofemoral and lateral compartment osteophytes are also seen. The overlying soft tissue appears unremarkable. IMPRESSION: 1. Moderate medial compartment arthropathy and mild patellofemoral compartment as well as lateral com partment arthropathy of the right knee. 2. No acute fracture or dislocation in the right knee.
== END | disposition home or self-care (01) ==
LOC: RADXRMAIN 10:58
PROVIDERS: ATTEND Family Medicine
DX: M12.871 Other specific arthropathies, not elsewhere classified, right ankle and foot (principal); M77.31 Calcaneal spur, right foot; M25.771 Osteophyte, right ankle; M12.861 Other specific arthropathies, not elsewhere classified, right knee

== ENCOUNTER 2019-11-24 15:34 | Observation (INO) | payer OTHER ==
[2019-11-24] MEDS ORDERED: SODIUM CHLORIDE 0.9% 1,000 ML IV STA (16:24)
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
--- NOTE | 2019-11-24 17:00 | XR ---
EXAMINATION TYPE: XR chest 2V DATE OF EXAM: 11/24/2019 COMPARISON: 03/18/2019 HISTORY: Seizure TECHNIQUE: FINDINGS: Heart and mediastinum are normal. Lungs are clear of infiltrate. There is no pleural effusi on. There is 50% anterior wedging of T8 vertebra. IMPRESSION: No active cardiopulmonary disease. Old compression fracture T8. No adverse change compare d to old exam.
[2019-11-24 17:02] LABS: Basophils % (A) 0 %; Eosinophils # (A) 0.2 k/uL (0-0.7); Eosinophils % (A) 2 %; HCT 38.9 % (34.0-46.0); HGB 12.7 gm/dL (11.4-16.0); Lymphocytes # (A) 2.4 k/uL (1.0-4.8); Lymphocytes % (A) 34 %; MCH 28.3 pg (25.0-35.0); MCHC 32.6 g/dL (31.0-37.0); MCV 86.8 fL (80.0-100.0); Mean Platelet Volume 7.2; Monocytes # (A) 0.4 k/uL (0-1.0); Monocytes % (A) 5 %; Neutrophils % (A) 57 %; Platelet Count 285 k/uL (150-450); RBC 4.48 m/uL (3.80-5.40); RDW 14.3 % (11.5-15.5)
[2019-11-24 17:35] LABS: ALT 10 U/L (4-34); AST 27 U/L (14-36); African American GFR (CKD) >90 (>60 ml/min/1.73 sqM); Alkaline Phosphatase 72 U/L (38-126); Anion Gap 6 mmol/L; Blood Urea Nitrogen 6 mg/dL (7-17); Calcium 9.5 mg/dL (8.4-10.2); Carbon Dioxide 33 mmol/L (22-30); Chloride 99 mmol/L (98-107); Creatine Kinase 166 U/L (30-135); Glucose 99 mg/dL (74-99); Magnesium 1.6 mg/dL (1.6-2.3); Non-African American GFR(CKD) >90 (>60 ml/min/1.73 sqM); Potassium 4.5 mmol/L (3.5-5.1); Sodium 138 mmol/L (137-145); Total Bilirubin 0.6 mg/dL (0.2-1.3)
--- NOTE | 2019-11-24 17:35 | CT ---
EXAMINATION TYPE: CT brain wo con DATE OF EXAM: 11/24/2019 COMPARISON: 08/16/2015 HISTORY: headache post seizure. history of prior seizure CT DLP: 1099.4 mGycm Automated exposure control for dose reduction was used. Multiple axial sections were obtained of the brain without contrast. Ventricles have normal size. There is no mass effect nor midline shift. There is no sign of intracran ial hemorrhage. Calvarium is intact. IMPRESSION: Negative head CT scan. No change.
[2019-11-24] MEDS ORDERED: MAGNESIUM SULFATE-D5W PMX 1 GM in DEXTROSE/WATER 1 100ML.BAG IVPB ONE (17:56)
[2019-11-24] MEDS ORDERED: ALPRAZolam 0.25 MG TAB PO STA (19:40)
[2019-11-24] MEDS ORDERED: levETIRAcetam IV 1,000 MG in SALINE 1 100ML.BAG IVPB STA (19:47)
[2019-11-24] MEDS ORDERED: NALOXONE 0.4 MG/ML 1 ML VIAL IV PRN (21:16)
[2019-11-24] MEDS ORDERED: ALBUTEROL NEBULIZED 2.5 MG/3 ML INHALATION PRN (21:19)
[2019-11-25 05:49] LABS: HCT 36.4 % (34.0-46.0); MCH 28.7 pg (25.0-35.0); MCHC 32.9 g/dL (31.0-37.0); MCV 87.4 fL (80.0-100.0); Mean Platelet Volume 7.4; Platelet Count 253 k/uL (150-450); RBC 4.16 m/uL (3.80-5.40); RDW 14.4 % (11.5-15.5); WBC 7.1 k/uL (3.8-10.6)
[2019-11-25 05:59] LABS: INR 1.3 (<1.2); Prothrombin Time 13.1 sec (9.0-12.0)
[2019-11-25 06:09] LABS: African American GFR (CKD) >90 (>60 ml/min/1.73 sqM); Anion Gap 5 mmol/L; Blood Urea Nitrogen 6 mg/dL (7-17); Calcium 8.9 mg/dL (8.4-10.2); Carbon Dioxide 28 mmol/L (22-30); Chloride 104 mmol/L (98-107); Glucose 97 mg/dL (74-99); Non-African American GFR(CKD) >90 (>60 ml/min/1.73 sqM); Potassium 4.2 mmol/L (3.5-5.1); Sodium 137 mmol/L (137-145)
[2019-11-25] MEDS ORDERED: IPRATROPIUM 0.5 MG/2.5 ML NEBU INHALATION SCH (08:00)
[2019-11-25] MEDS: LORATADINE 10 MG TAB PO SCH (08:15)
[2019-11-25] MEDS: DICYCLOMINE 10 MG CAP PO SCH ×4 (08:15→20:50)
[2019-11-25] MEDS: ATORVASTATIN 20 MG TAB PO SCH (08:15)
[2019-11-25] MEDS: BALSALAZIDE DISODIUM 750 MG CAPSULE PO SCH ×3 (08:15→16:28)
[2019-11-25] MEDS: ASPIRIN 81 MG PO SCH (08:15)
[2019-11-25] MEDS: METOPROLOL SUCCINATE (ER) 25 MG TAB.ER.24H PO SCH (08:15)
[2019-11-25] MEDS: DULoxetine HCL 60 MG CAPSULE.DR PO SCH (08:16)
[2019-11-25] MEDS: CHOLECALCIFEROL 1,000 UNIT TAB PO SCH (08:16)
[2019-11-25] MEDS: FORMOTEROL FUMARATE 20 MCG/2 ML NEBU INHALATION SCH ×2 (08:28→20:40)
[2019-11-25] MEDS: IPRATROPIUM-ALBUTEROL 3 ML NEB INHALATION SCH ×4 (08:28→20:40)
[2019-11-25] MEDS ORDERED: Magnesium Replacement Protocol 1 EACH MISC MISCELLANE PRN (09:29)
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
--- NOTE | 2019-11-25 11:15 | US ---
EXAMINATION TYPE: US carotid duplex BILAT DATE OF EXAM: 11/25/2019 COMPARISON: US 03/24/2015, MR 03/25/2015 CLINICAL HISTORY: Seizure, carotid stenosis. EXAM MEASUREMENTS: RIGHT: Peak Systolic Velocity (PSV) cm/sec ----- Right CCA: 77.3 ----- Right ICA: 85.1 ----- Right ECA: 84.5 ICA/CCA ratio: 1.1 RIGHT: End Diastole cm/sec ----- Right CCA: 15.6 ----- Right ICA: 19.5 ----- Right ECA: 10.4 LEFT: Peak Systolic Velocity (PSV) cm/sec ----- Left CCA: 82.5 ----- Left ICA: 107 ----- Left ECA: 87.7 ICA/CCA ratio: 1.2 LEFT: End Diastole cm/sec ----- Left CCA: 22.7 ----- Left ICA: 31.2 ----- Left ECA: 8.4 VERTEBRALS (direction of flow): Right Vertebral: Antegrade Left Vertebral: Antegrade Rhythm: Normal Mild amount of plaque visualized, no elevated velocities, no significant stenosis Some intimal thickening is present. Turbulent flow is noted on right IMPRESSION: Atheromatous plaquing without significant flow-limiting stenosis carotid bifurcations. Criteria for Assigning % of Stenosis / Diameter reduction (Estimation based on the indirect measurements of the internal carotid artery velocities (ICA PSV). 1. Normal (no stenosis)=ICA PSV < 125 cm/s: ratio < 2.0: ICA EDV<40 cm/s. 2. Less than 50% stenosis=ICA PSV < 125 cm/s: ratio < 2.0: ICA EDV<40 cm/s. 3. 50 to 69% stenosis=ICA PSV of 125 to 230 cm/s: ration 2.0 ? 4.0: ICA EDV 40-100 cm/s. 4. Greater than 70% stenosis to near occlusion= ICA PSV > 230 cm/s: ratio > 4.0: ICA EDV > 100 cm/s. 5. Near occlusion= ICA PSV velocities may be low or undetectable: variable ratio and ICA EDV. 6. Total occlusion=unable to detect flow.
[2019-11-25] MEDS: GABAPENTIN 300 MG CAP PO SCH ×2 (12:17→20:50)
[2019-11-25] MEDS: PANTOPRAZOLE 40 MG/10 ML VIAL IVP SCH (12:17)
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
--- NOTE | 2019-11-25 16:16 | EEG ---
ELECTROENCEPHALOGRAM REPORT DATE OF SERVICE: 11/25/2019. PREAMBLE: This is a 59-year-old female who has been having some possible focal seizure involving the right side of the body. This study study is performed to evaluate for any epileptiform activity. EEG FINDINGS: A routine 21-channel awake digital EEG recording was accomplished utilizing the 10/20 international system with bipolar and referential montages. The background consists of well-developed, well-regulated, moderate voltage activity in 8-9 Hz alpha. Background is posterior dominant and reactive to eye opening and closing. EEG is technically of poor quality because of continuous electrode artifact at T6. Some dysrhythmic activity was seen in temporal regions bilaterally. No definitive epileptiform activity was seen. Photic driving response was not seen. Some drowsiness was seen, but deeper stages of sleep were not seen. No definitive epileptiform activity was seen. EKG rhythm lead revealed no obvious arrhythmia. IMPRESSION: This is a technically limited study due to significant movement and electrode artifact during most of the study. Suggest repeating the study, perhaps prolonged or sleep- deprived EEG. Otherwise, no definitive epileptiform activity was seen in this study. MMODL / IJN: [id number] /
[2019-11-25] MEDS ORDERED: WARFARIN 2.5 MG TAB PO SCH (18:00)
[2019-11-25 19:19] LABS: Amphetamine Screen,Urine Not Detected (NotDetected); Barbiturate Screen,Urine Not Detected (NotDetected); Benzodiazepines Screen,Urine Not Detected (NotDetected); Cocaine Screen,Urine Not Detected (NotDetected); Methadone Screen, Urine Not Detected (NotDetected); Opiate Screen,Urine Not Detected (NotDetected); Oxycodone Screen, Urine Not Detected (NotDetected); Phencyclidine Screen,Urine Not Detected (NotDetected); Tricyclic Antidepressant,Urine Not Detected (NotDetected); Urn Cannabinoid Scrn Detected (NotDetected)
[2019-11-25] MEDS: levETIRAcetam 500 MG TAB PO SCH (20:50)
[2019-11-25] MEDS ORDERED: QUEtiapine 100 MG TAB PO SCH (21:00)
[2019-11-25 23:06] VITALS: RESP 16
[2019-11-26 06:33] LABS: INR 1.7 (<1.2); Prothrombin Time 16.5 sec (9.0-12.0)
[2019-11-26] MEDS: BALSALAZIDE DISODIUM 750 MG CAPSULE PO SCH ×3 (06:42→17:07)
[2019-11-26] MEDS: DICYCLOMINE 10 MG CAP PO SCH ×3 (06:43→17:06)
[2019-11-26] MEDS: FORMOTEROL FUMARATE 20 MCG/2 ML NEBU INHALATION SCH (08:14)
[2019-11-26] MEDS: IPRATROPIUM-ALBUTEROL 3 ML NEB INHALATION SCH ×3 (08:14→16:20)
[2019-11-26] MEDS: LORATADINE 10 MG TAB PO SCH (08:29)
[2019-11-26] MEDS: ATORVASTATIN 20 MG TAB PO SCH (08:29)
[2019-11-26] MEDS: METOPROLOL SUCCINATE (ER) 25 MG TAB.ER.24H PO SCH (08:29)
[2019-11-26] MEDS: DULoxetine HCL 60 MG CAPSULE.DR PO SCH (08:29)
[2019-11-26] MEDS: GABAPENTIN 300 MG CAP PO SCH (08:29)
[2019-11-26] MEDS: levETIRAcetam 500 MG TAB PO SCH (08:29)
[2019-11-26] MEDS: CHOLECALCIFEROL 1,000 UNIT TAB PO SCH (08:29)
[2019-11-26] MEDS: ASPIRIN 81 MG PO SCH (08:29)
[2019-11-26] MEDS: PANTOPRAZOLE 40 MG/10 ML VIAL IVP SCH (08:30)
[2019-11-26] MEDS: MAGNESIUM SULFATE-D5W PMX 1 GM in DEXTROSE/WATER 1 100ML.BAG IVPB SCH ×2 (11:26→12:38)
[2019-11-26] MEDS ORDERED: APIXABAN 5 MG TAB PO SCH ×2 (12:15→13:00)
[2019-11-26 12:21] VITALS: BP 110/64; PULSE 69; TEMP 98.2
--- NOTE | 2019-11-26 13:34 | P.DS ---
Providers Date of admission: 11/24/19 21:16 Expected date of discharge: 11/26/19 Attending physician: Phil Palma Consults: 11/24/19 21:17 Consult Physician Routine Consulting Provider: Nati Bahena Consult Reason/Comments: Recurrent seizure Do you want consulting provider notified?: Yes, Notify in am Primary care physician: Phil Palma Hospital Course: Final Diagnoses: Focal seizures, in a patient who states recently diagnosed, not on any medication, in a patient with high caffeine daily intake. Chronic paroxysmal atrial fibrillation, subtherapeutic on Coumadin on a dmission,1.3, failed outpatient Coumadin treatment. CAD gastroesophageal reflux disease Right carotid stenosis, history of History of CVA/TIA Hypertrophic obstructive cardiomyopathy Hypertension Hyperlipidemia Osteoarthritis Bipolar Ongoing nicotine dependence, smoking cessation reinforced. Daily marijuana use History of polysubstance abuse, crack, cocaine Hospital course:This is a 59-year-old female with history of atrial fibrillation, CAD, COPD, history of CVA/TIA, gastroesophageal reflux disease, seizure disorder, bipolar, 4-5 cups of coffee per day in addition to consuming 2 L Mountain Dew daily,ongoing nicotine and marijuana dependence, history of polysubstance abuse-crack, cocaine on Suboxone(reports on his 6 months), right carotid stenosis, 50-60% and multiple other medical issues presented to the ER with complaints of recurrent seizure activity. Patient reports recent diagnosis but currently not on any medications for seizures. Reports she was scheduled for EEG yesterday at PCPs office but unable to go as she was not feeling well. Reports recurrent brief shaking of her right and lower extremities. Denies tongue biting. Denies incontinence of bowel or urine. Denies syncope. She remembers shaking. Couple tonic-clonic activiy in the ER lasting less than 30 seconds, reported. IV Keppra initiated. Denies lightheadedness dizziness or focal deficit. Denies chest pain, palpitations or shortness of breath. Most recent echo reporting moderate concentric left ventricular hypertrophy, EF 60- 65%, EKG reporting sinus rhythm, possible left atrial enlargement. Troponin negative 1 Hematology unremarkable. BUN 6, creatinine 0.57. TSH normal Creatinine kinase 166 Magnesium 1.6, potassium 4.2. Magnesium supplemented. Brain CT reported negative, no change. Evaluated by neurology with neurology workup completed. Please refer to their progress note for specific details. Initiated on Keppra. No further seizure activity. Instructed on Seizure precautions including no driving. On admission patient was subtherapeutic, INR 1.3. Per PCP, patient has not been compliant with Coumadin monitoring. Patient has a history of paroximal atrial fibrillation.Patient reports difficulty with following-up for regular monthly monitoring of Coumadin. Therefore anticoagulation needs to be changed over to Eliquis. Discussed with patient who consents with the change. Case management notified to obtain prior authorization. Significant clinical improvement. Patient is being discharged home in a stable condition with guarded prognosis. EXAM: GENERAL: Alert and oriented X 3, no acute distress HEENT: Conjunctivae normal. eyes normal. CARDIOVASCULAR: S1, S2 regular.. No murmur RESPIRATION: Breath sounds diminished in the bases. ABDOMEN: Soft, nontender . No guarding. Bowel sounds heard NERVOUS SYSTEM: No focal deficits. The impression and plan of care has been dictated as directed. : I performed a history and examination of this patient, discussed the same with the dictator. I agree with the dictator's note ,documented as a scribe. Any additional findings or plans will be noted. Patient Condition at Discharge: Stable Plan - Discharge Summary Discharge Rx Participant: Yes New Discharge Prescriptions: New Pantoprazole Sodium [Protonix] 40 mg PO DAILY #30 tablet. Apixaban [Eliquis] 5 mg PO BID #60 tab Continue Metoprolol Succinate (ER) [Toprol XL] 25 mg PO DAILY Buprenorphine HCl/Naloxone HCl [Suboxone 8 mg-2 mg Sl Film] 1 film SL BID Loratadine [Claritin] 10 mg PO DAILY DULoxetine HCL [Cymbalta] 60 mg PO DAILY Cholecalciferol (Vitamin D3) [Vitamin D3] 2,000 unit PO DAILY Albuterol Inhaler [Ventolin Hfa Inhaler] 2 puff INHALATION RT-QID PRN PRN Reason: Shortness Of Breath QUEtiapine FUMARATE [SEROquel] 300 mg PO HS Atorvastatin [Lipitor] 20 mg PO DAILY Balsalazide Disodium 2,250 mg PO AC-TID Dicyclomine [Bentyl] 10 mg PO ACHS Gabapentin 600 mg PO BID Glycopyrrolate/Formoterol Fum [Bevespi Aerosphere Inhaler] 2 puff INHALATION RT-BID Aspirin 81 mg PO DAILY Discontinued Warfarin [Coumadin] 2.5 mg PO DAILY Discharge Medication List Metoprolol Succinate (ER) [Toprol XL] 25 mg PO DAILY 02/21/18 [History] Buprenorphine HCl/Naloxone HCl [Suboxone 8 mg-2 mg Sl Film] 1 film SL BID 04/15/18 [History] Cholecalciferol (Vitamin D3) [Vitamin D3] 2,000 unit PO DAILY 11/09/18 [History] DULoxetine HCL [Cymbalta] 60 mg PO DAILY 11/09/18 [History] Loratadine [Claritin] 10 mg PO DAILY 11/09/18 [History] Albuterol Inhaler [Ventolin Hfa Inhaler] 2 puff INHALATION RT-QID PRN 02/09/19 [History] Atorvastatin [Lipitor] 20 mg PO DAILY 03/18/19 [History] QUEtiapine FUMARATE [SEROquel] 300 mg PO HS 03/18/19 [History] Balsalazide Disodium 2,250 mg PO AC-TID 05/18/19 [History] Dicyclomine [Bentyl] 10 mg PO ACHS 05/18/19 [History] Aspirin 81 mg PO DAILY 11/24/19 [History] Gabapentin 600 mg PO BID 11/24/19 [History] Glycopyrrolate/Formoterol Fum [Bevespi Aerosphere Inhaler] 2 puff INHALATION RT- BID 11/24/19 [History] Apixaban [Eliquis] 5 mg PO BID #60 tab 11/26/19 [Rx] Pantoprazole Sodium [Protonix] 40 mg PO DAILY #30 tablet. 11/26/19 [Rx] Follow up Appointment(s)/Referral(s): neurologistDr. of pt's choice [Other] - 1 Week Phil Palma MD [Primary Care Provider] - 3 Days Ambulatory/Diagnostic Orders: Complete Blood Count w/diff [LAB.AMB] Time Frame: 3 Days, Location: None Selected Patient Instructions/Handouts: Recurrent Seizures in Adults (DC) Activity/Diet/Wound Care/Special Instructions: no driving seizure precautions
--- NOTE | 2019-11-26 13:52 | P.PN ---
Subjective Progress Note Date: 11/26/19 Patient states she is doing better. She had a very small minor episode yesterday since last seen, but none since. Patient has been started on Keppra 500 mg twice a day, tolerated it well. Patient's EEG was technically limited study due to significant movement and electrode artifact. During most of the study. Suggest repeating the study, perhaps prolong grossly deprived EEG. Otherwise no epileptiform activity was seen. Objective - Vital Signs Vital signs: Vital Signs Temp 98.2 F 11/26/19 12:00 Pulse 69 11/26/19 12:00 Resp 16 11/26/19 12:00 BP 110/64 11/26/19 12:00 Pulse Ox 91 L 11/26/19 12:00 Intake & Output 11/25/19 11/26/19 11/26/19 18:59 06:59 18:59 Intake Total 240 1320 Balance 240 1320 Weight 69.8 kg Intake: IV 40 Invasive Line 1 40 Oral 240 1280 Other: # Voids 1 - Exam nonfocal. - Labs CBC & Chem 7: 11/25/19 05:35 11/25/19 05:35 Labs: Abnormal Lab Results - Last 24 Hours (Table) 11/25/19 11/26/19 Range/Units 18:30 05:45 PT 16.5 H (9.0-12.0) sec INR 1.7 H (<1.2) U Marijuana (THC) Screen Detected H (NotDetected) Assessment and Plan Assessment: * 59-year-old female admitted with partial seizures. Patient's seizure starts in the right side, that extend sometimes to the left side but without any loss of consciousness. Patient has history of an ischemic stroke involving left posterior parietal region in 2014, which probably is getting epileptogenic, producing focal seizures. * Tobacco user * Paroxysmal Atrial fibrillation * History of hypertrophic obstructive cardiomyopathy * History of substance use Plan: * Patient's EEG was technically limited. Patient is already scheduled to have an EEG performed at her neurologist office in the near future. * Continue Keppra 500 mg twice a day. * Carotid Doppler showed no stenosis. Only atheromatous plaquing without significant flow limiting stenosis. * Continue Coumadin. Target INR 2.0-3.0. INR today is 1.7. * Decrease amount of caffeine intake. * Patient was informed of [place] state law of no driving unless seizure free for 6 months, operate dangerous machinery, climbing ladders or unsupervised swimming. * Patient's neurologically clear for discharge.
[2019-11-26] MEDS ORDERED: WARFARIN 2 MG TAB PO ONE (18:00)
[2019-11-27] MEDS ORDERED: PANTOPRAZOLE 40 MG TABLET PO SCH (07:30)
== END 2019-11-26 17:59 | disposition home or self-care (01) ==
LOC: EC 15:34 → INTOOBSV 21:16 → 3SCARD 21:16 → UNDODISIN 11-26 17:59
PROVIDERS: ADMIT Family Medicine; ATTEND Family Medicine
DX: G40.109 Localization-related (focal) (partial) symptomatic epilepsy and epileptic syndromes with simple partial seizures, not intractable, without status epilepticus (principal); I42.1 Obstructive hypertrophic cardiomyopathy; I11.9 Hypertensive heart disease without heart failure; E78.5 Hyperlipidemia, unspecified; F17.210 Nicotine dependence, cigarettes, uncomplicated; F41.9 Anxiety disorder, unspecified; I25.10 Atherosclerotic heart disease of native coronary artery without angina pectoris; I48.0 Paroxysmal atrial fibrillation; I65.21 Occlusion and stenosis of right carotid artery; J44.9 Chronic obstructive pulmonary disease, unspecified; K21.9 Gastro-esophageal reflux disease without esophagitis; M19.90 Unspecified osteoarthritis, unspecified site; F32.9 Major depressive disorder, single episode, unspecified; Z79.01 Long term (current) use of anticoagulants; Z79.82 Long term (current) use of aspirin; Z79.899 Other long term (current) drug therapy; Z88.1 Allergy status to other antibiotic agents; Z88.8 Allergy status to other drugs, medicaments and biological substances; Z90.49 Acquired absence of other specified parts of digestive tract; Z87.01 Personal history of pneumonia (recurrent); Z80.0 Family history of malignant neoplasm of digestive organs; Z82.49 Family history of ischemic heart disease and other diseases of the circulatory system; Z83.3 Family history of diabetes mellitus; Z82.0 Family history of epilepsy and other diseases of the nervous system; Z83.49 Family history of other endocrine, nutritional and metabolic diseases; F12.90 Cannabis use, unspecified, uncomplicated; Z91.14 Patient's other noncompliance with medication regimen; Z86.73 Personal history of transient ischemic attack (TIA), and cerebral infarction without residual deficits; F14.11 Cocaine abuse, in remission
CPT/HCPCS: 96376; 96366; 96375 ×3; 96361; 96365; 99285; 36415; 94640 ×4; 94760; 95816; 93005; 80053; 80048; 84443; 82550; 83690; 83735 ×3; 84484; 85025; 85027; 85610 ×2; 80306; 71046; 93880; 70450; G0378 ×3; J3475 ×2; J1953; C9113 ×2

== ENCOUNTER → 2019-12-17 | Outpatient (CLI) | payer OTHER ==
--- NOTE | 2019-12-17 15:25 | MR ---
EXAMINATION TYPE: MR brain wo/w con DATE OF EXAM: 12/17/2019 COMPARISON: Prior MRI brain March 25, 2015. Prior CT brain November 24, 2019. HISTORY: Seizure TECHNIQUE: Multiplanar, multisequence images of the brain and brainstem is performed without and with IV contras t, utilizing 7 ml mL intravenous Gadavist . FINDINGS: Diffusion weighted images demonstrate no evidence of a recent infarct or other diffusion ab normality. There is no worrisome extra-axial fluid collection. There is mild ventricular and sulcal prominence greatest over bilateral frontal lobes. There are scattered areas of T2 hyperintensity seen throughout the superficial, deep, and periventricular white matter. Progression from 2015 MRI is martínez ntified. Midline structures demonstrate normal morphology. The craniocervical junction appears within normal limits. Post contrast images demonstrate no abnormal enhancement. The dural venous sinuses appear pa tent. The visualized sinuses are clear and the globes are intact. IMPRESSION: Mild diffuse cerebral atrophy and moderate to advanced nonspecific white matter changes f avored on the basis of product of chronic small vessel ischemic change without suspicious enhancement . Progression from 2015 MRI noted in the latter.
== END | disposition home or self-care (01) ==
LOC: RADMRIMAIN 13:17
PROVIDERS: ATTEND Psychiatry & Neurology Neurology
DX: G31.9 Degenerative disease of nervous system, unspecified (principal); I67.82 Cerebral ischemia; Z88.8 Allergy status to other drugs, medicaments and biological substances
CPT/HCPCS: 70553; A9585

== ENCOUNTER → 2020-03-11 | Outpatient (CLI) | payer OTHER ==
--- NOTE | 2020-03-11 12:55 | XR ---
EXAMINATION TYPE: XR chest 2V DATE OF EXAM: 03/11/2020 COMPARISON: Chest x-ray November 24, 2019. CT chest November 09, 2018. HISTORY: Hemoptysis and shortness of breath. TECHNIQUE: Frontal and lateral views of the chest are obtained. FINDINGS: There is chronic emphysematous and pulmonary fibrotic changes without suspicious new focal air space opacity, pleural effusion, or pneumothorax seen. The cardiac silhouette size remains with in normal limits. Mild to moderate chronic compression fracture deformity at T8 level redemonstrated. IMPRESSION: Chronic changes without acute pulmonary process.
== END | disposition home or self-care (01) ==
LOC: RADXRMAIN 12:21
PROVIDERS: ATTEND Internal Medicine Sleep Medicine
DX: J43.9 Emphysema, unspecified (principal); J84.10 Pulmonary fibrosis, unspecified
CPT/HCPCS: 71046

== ENCOUNTER → 2020-03-24 | Outpatient (CLI) | payer OTHER | END | disposition home or self-care (01) | LOC: LABWHC1 13:39 | PROVIDERS: ATTEND Internal Medicine Sleep Medicine | DX: Z03.818 Encounter for observation for suspected exposure to other biological agents ruled out (principal); J18.9 Pneumonia, unspecified organism ==

== ENCOUNTER 2020-03-27 14:12 | Observation (INO) | payer OTHER ==
[2020-03-27] MEDS ORDERED: methylPREDNISolone SOD SUCCI 125 MG/2 ML VIAL IV STA (15:04)
[2020-03-27] MEDS ORDERED: IPRATROPIUM 0.5 MG/2.5 ML NEBU INHALATION STA (15:04)
[2020-03-27] MEDS ORDERED: SODIUM CHLORIDE 0.9% 500 ML 500 ML IV STA (15:04)
[2020-03-27 15:35] LABS: Basophils % (A) 0 %; Eosinophils # (A) 0.2 k/uL (0-0.7); Eosinophils % (A) 2 %; HCT 42.7 % (34.0-46.0); HGB 14.1 gm/dL (11.4-16.0); Lymphocytes # (A) 1.3 k/uL (1.0-4.8); Lymphocytes % (A) 10 %; MCH 28.5 pg (25.0-35.0); MCV 86.5 fL (80.0-100.0); Monocytes # (A) 0.3 k/uL (0-1.0); Monocytes % (A) 3 %; Neutrophils # (A) 11.6 k/uL (1.3-7.7); Neutrophils % (A) 86 %; Platelet Count 285 k/uL (150-450); RBC 4.94 m/uL (3.80-5.40); RDW 15.3 % (11.5-15.5); WBC 13.5 k/uL (3.8-10.6)
[2020-03-27 15:45] LABS: Partial Thromboplastin Time 34.1 sec (22.0-30.0); Prothrombin Time 29.7 sec (9.0-12.0)
[2020-03-27 15:47] LABS: Albumin 4.1 g/dL (3.5-5.0); Magnesium 1.7 mg/dL (1.6-2.3); Total Bilirubin 0.5 mg/dL (0.2-1.3); Total Protein 6.8 g/dL (6.3-8.2)
[2020-03-27 15:49] LABS: Potassium 4.6 mmol/L (3.5-5.1)
[2020-03-27] MEDS ORDERED: SODIUM CHLORIDE 0.9% 1,000 ML IV ONE (15:51)
--- NOTE | 2020-03-27 16:06 | XR ---
EXAMINATION TYPE: XR chest 2V DATE OF EXAM: 03/27/2020 COMPARISON: Chest x-ray March 11, 2020. CT chest November 09, 2018. HISTORY: History of COPD with difficulty in breathing. TECHNIQUE: Frontal and lateral views of the chest are obtained. FINDINGS: Some right-sided rotation noted on current study. There is chronic emphysematous and paren chymal fibrotic changes without suspicious new focal air space opacity, pleural effusion, or pneumoth orax seen. The cardiac silhouette size remains within normal limits. The osseous structures are so mewhat demineralized. IMPRESSION: Chronic changes without acute pulmonary process.
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
[2020-03-27] MEDS: SODIUM CHLORIDE 0.9% 1,000 ML IV SCH (16:29)
[2020-03-27] MEDS ORDERED: IPRATROPIUM-ALBUTEROL 3 ML NEB INHALATION STA (16:37)
[2020-03-27] MEDS ORDERED: NALOXONE 0.4 MG/ML 1 ML VIAL IV PRN (17:03)
[2020-03-27] MEDS ORDERED: FLUTICASONE 50MCG/SPRAY NASAL 16GM EA NOSTRIL PRN (18:55)
[2020-03-27] MEDS: IPRATROPIUM-ALBUTEROL 3 ML NEB INHALATION SCH (19:56)
[2020-03-27] MEDS: GABAPENTIN 300 MG CAP PO SCH (20:42)
[2020-03-27] MEDS: levETIRAcetam 500 MG TAB PO SCH (20:42)
[2020-03-27] MEDS: DICYCLOMINE 20 MG TAB PO SCH (20:43)
[2020-03-27] MEDS: BALSALAZIDE DISODIUM 750 MG CAPSULE PO SCH (20:43)
[2020-03-27] MEDS ORDERED: QUEtiapine 100 MG TAB PO SCH (21:00)
[2020-03-27 22:50] VITALS: RESP 16
[2020-03-28] MEDS: IPRATROPIUM-ALBUTEROL 3 ML NEB INHALATION SCH ×5 (01:10→11:30)
[2020-03-28] MEDS: SODIUM CHLORIDE 0.9% 1,000 ML IV SCH ×3 (01:51→14:42)
[2020-03-28] MEDS: NALOXONE HCL SUBLINGUAL SCH ×2 (03:06→07:31)
[2020-03-28] MEDS: NON FORMULARY DRUG (Buprenorphine Hcl/Naloxone Hcl [Suboxone 8 Mg-2 Mg Sl Film] 1 FILM) SUBLINGUAL SCH ×2 (03:06→07:31)
[2020-03-28] MEDS: BUPRENORPHINE HCL SUBLINGUAL SCH ×2 (03:06→07:31)
[2020-03-28 06:22] LABS: INR 4.2 (<1.2)
[2020-03-28] MEDS ORDERED: PANTOPRAZOLE 40 MG TABLET PO SCH (07:30)
[2020-03-28] MEDS: levETIRAcetam 500 MG TAB PO SCH (07:38)
[2020-03-28] MEDS: GABAPENTIN 300 MG CAP PO SCH (07:38)
[2020-03-28] MEDS: BALSALAZIDE DISODIUM 750 MG CAPSULE PO SCH (07:38)
[2020-03-28] MEDS: DICYCLOMINE 20 MG TAB PO SCH (07:39)
[2020-03-28] MEDS ORDERED: predniSONE 20 MG TAB PO SCH (09:00)
[2020-03-28] MEDS ORDERED: CHOLECALCIFEROL 1,000 UNIT TAB PO SCH (09:00)
[2020-03-28] MEDS ORDERED: METOPROLOL SUCCINATE (ER) 25 MG TAB.ER.24H PO SCH (09:00)
[2020-03-28] MEDS ORDERED: DULoxetine HCL 60 MG CAPSULE.DR PO SCH (09:00)
[2020-03-28] MEDS ORDERED: LORATADINE 10 MG TAB PO SCH (09:00)
[2020-03-28] MEDS ORDERED: ATORVASTATIN 20 MG TAB PO SCH (09:00)
[2020-03-28 10:17] LABS: HCT 35.9 % (34.0-46.0); HGB 11.3 gm/dL (11.4-16.0); MCH 27.8 pg (25.0-35.0); MCHC 31.5 g/dL (31.0-37.0); MCV 88.2 fL (80.0-100.0); Mean Platelet Volume 6.6; Platelet Count 240 k/uL (150-450); RBC 4.07 m/uL (3.80-5.40); RDW 15.4 % (11.5-15.5); WBC 12.4 k/uL (3.8-10.6)
[2020-03-28 10:43] LABS: ALT 14 U/L (4-34); AST 21 U/L (14-36); African American GFR (CKD) >90 (>60 ml/min/1.73 sqM); Albumin 3.1 g/dL (3.5-5.0); Alkaline Phosphatase 44 U/L (38-126); Anion Gap 4 mmol/L; Blood Urea Nitrogen 15 mg/dL (7-17); Calcium 7.6 mg/dL (8.4-10.2); Carbon Dioxide 29 mmol/L (22-30); Chloride 99 mmol/L (98-107); Glucose 126 mg/dL (74-99); Non-African American GFR(CKD) >90 (>60 ml/min/1.73 sqM); Potassium 4.4 mmol/L (3.5-5.1); Sodium 132 mmol/L (137-145); Total Bilirubin 0.2 mg/dL (0.2-1.3); Total Protein 5.5 g/dL (6.3-8.2)
[2020-03-28 11:30] VITALS: BP 137/67; TEMP 97.8
[2020-03-28 11:41] VITALS: PULSE 86
[2020-03-28] MEDS ORDERED: IPRATROPIUM-ALBUTEROL 3 ML NEB INHALATION PRN (14:59)
[2020-03-28] MEDS ORDERED: diphenhydrAMINE 25 MG CAP PO PRN (15:02)
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
[2020-03-28] MEDS ORDERED: WARFARIN 2.5 MG TAB PO SCH (18:00)
== END 2020-03-28 14:55 | disposition left against medical advice (07) ==
LOC: EC 14:12 → 1SOBS 17:22
PROVIDERS: ADMIT Family Medicine; ATTEND Family Medicine
DX: J44.1 Chronic obstructive pulmonary disease with (acute) exacerbation (principal); J44.0 Chronic obstructive pulmonary disease with (acute) lower respiratory infection; J40 Bronchitis, not specified as acute or chronic; E87.2 Acidosis; Z53.29 Procedure and treatment not carried out because of patient's decision for other reasons; K50.90 Crohn's disease, unspecified, without complications; D72.829 Elevated white blood cell count, unspecified; T38.0X5A Adverse effect of glucocorticoids and synthetic analogues, initial encounter; I48.0 Paroxysmal atrial fibrillation; K21.9 Gastro-esophageal reflux disease without esophagitis; I25.10 Atherosclerotic heart disease of native coronary artery without angina pectoris; I42.1 Obstructive hypertrophic cardiomyopathy; I65.21 Occlusion and stenosis of right carotid artery; I10 Essential (primary) hypertension; E78.5 Hyperlipidemia, unspecified; M19.90 Unspecified osteoarthritis, unspecified site; F41.9 Anxiety disorder, unspecified; F31.9 Bipolar disorder, unspecified; G40.909 Epilepsy, unspecified, not intractable, without status epilepticus; F17.200 Nicotine dependence, unspecified, uncomplicated; F12.20 Cannabis dependence, uncomplicated; R91.1 Solitary pulmonary nodule; Z79.82 Long term (current) use of aspirin; Z79.01 Long term (current) use of anticoagulants; Z79.51 Long term (current) use of inhaled steroids; Z79.899 Other long term (current) drug therapy; Z88.1 Allergy status to other antibiotic agents; Z88.8 Allergy status to other drugs, medicaments and biological substances; Z87.898 Personal history of other specified conditions; Z86.73 Personal history of transient ischemic attack (TIA), and cerebral infarction without residual deficits; Z87.01 Personal history of pneumonia (recurrent); Z86.79 Personal history of other diseases of the circulatory system; Z86.59 Personal history of other mental and behavioral disorders; Z91.410 Personal history of adult physical and sexual abuse; Z90.49 Acquired absence of other specified parts of digestive tract; Z90.79 Acquired absence of other genital organ(s); Z80.0 Family history of malignant neoplasm of digestive organs; Z82.49 Family history of ischemic heart disease and other diseases of the circulatory system; Z83.3 Family history of diabetes mellitus; Z83.49 Family history of other endocrine, nutritional and metabolic diseases
CPT/HCPCS: 96361; 96365; 96375; 99285; 36415; 94640 ×4; 93005; 85379; 83880; 80053 ×2; 83605; 83735; 84484 ×2; 85025; 85027; 85610 ×2; 85730; 87040; 71046; G0378 ×2; J2930; J0696

== ENCOUNTER 2020-04-14 14:05 | Inpatient (IN) | payer OTHER ==
[2020-04-14] MEDS ORDERED: SODIUM CHLORIDE 0.9% 500 ML 500 ML IV STA (14:11)
[2020-04-14] MEDS ORDERED: SODIUM CHLORIDE 0.9% 1,000 ML IV STA (14:11)
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
[2020-04-14 14:22] LABS: Anisocytosis Slight; Basophils # (A) 0.1 k/uL (0-0.2); Basophils % (A) 1 %; Eosinophils # (A) 0.2 k/uL (0-0.7); Eosinophils % (A) 1 %; HCT 42.9 % (34.0-46.0); HGB 13.7 gm/dL (11.4-16.0); Lymphocytes # (A) 3.1 k/uL (1.0-4.8); Lymphocytes % (A) 21 %; MCH 27.6 pg (25.0-35.0); MCHC 31.9 g/dL (31.0-37.0); MCV 86.6 fL (80.0-100.0); Mean Platelet Volume 6.5; Monocytes # (A) 0.9 k/uL (0-1.0); Monocytes % (A) 6 %; Neutrophils # (A) 10.5 k/uL (1.3-7.7); Neutrophils % (A) 70 %; Platelet Count 273 k/uL (150-450); RBC 4.95 m/uL (3.80-5.40); WBC 14.9 k/uL (3.8-10.6)
[2020-04-14 14:31] LABS: ALT 16 U/L (4-34); AST 26 U/L (14-36); African American GFR (CKD) >90 (>60 ml/min/1.73 sqM); Alkaline Phosphatase 77 U/L (38-126); Anion Gap 7 mmol/L; Blood Urea Nitrogen 16 mg/dL (7-17); Calcium 9.9 mg/dL (8.4-10.2); Carbon Dioxide 32 mmol/L (22-30); Chloride 92 mmol/L (98-107); Creatine Kinase 201 U/L (30-135); Glucose 143 mg/dL (74-99); Non-African American GFR(CKD) 81 (>60 ml/min/1.73 sqM); Potassium 4.7 mmol/L (3.5-5.1); Sodium 131 mmol/L (137-145); Total Protein 6.3 g/dL (6.3-8.2)
--- NOTE | 2020-04-14 14:39 | CT ---
EXAMINATION TYPE: CT brain wo con for TPA DATE OF EXAM: 04/14/2020 COMPARISON: November 24, 2019 HISTORY: RIGHT SIDE WEAKNESS CT DLP: 1108.[address] of the brain was performed. The ventricles, basal cisterns and sulci overlying the cerebral convexities demonstrate mild enlargem ent. Symmetric decreased attenuation within the posterior fossa bilaterally is likely artifactual in nature. Correlate clinically. There is no evidence for intracranial hemorrhage or sulcal effacement. There is decreased attenuation about the periventricular white matter and deep white matter of both c erebral hemispheres, compatible with chronic small vessel ischemia. Differential diagnosis does inclu de demyelination. No mass effects are seen.No midline shift. Osseous calvarium is intact. If symptoms persist consider MRI. IMPRESSION: 1. Age related atrophic and chronic small vessel ischemic change without acute intracranial process s een at this time. Symmetric decreased attenuation within the posterior fossa bilaterally is likely ar tifactual in nature. Correlate clinically.
[2020-04-14 14:44] LABS: Glucose,Whole Blood 144 mg/dL (75-99)
[2020-04-14] MEDS ORDERED: ALTEPLASE 60 MG in EMPTY BAG 1 BAG IV STA (14:49)
[2020-04-14] MEDS ORDERED: ALTEPLASE BOLUS 7 MG in EMPTY SYRINGE 1 SYR IV STA (14:49)
[2020-04-14] MEDS ORDERED: Alteplase PER PHARMACY Stroke 1 EACH MISC MISCELLANE PRN (14:49)
[2020-04-14 14:54] LABS: Partial Thromboplastin Time 24.6 sec (22.0-30.0); Prothrombin Time 10.3 sec (9.0-12.0)
--- NOTE | 2020-04-14 14:59 | CT ---
EXAMINATION TYPE: CT angio head neck DATE OF EXAM: 04/14/2020 COMPARISON: None HISTORY: RIGHT SIDE WEAKNESS CT DLP: 407.5 mGycm CONTRAST: Performed with IV Contrast, patient injected with 65 mL of Isovue 370. Combination Contrast CTA cervical carotids and [place] CTA cervical carotids with 3-D recons truction Contrast CTA of the cervical carotids was performed 3-D reconstruction imaging obtained at a separate workstation. Right carotid system: Mild plaque is seen of the right common carotid artery. There is mild plaque a lso noted at the carotid bulb and proximal ICA. No significant diameter reduction. ECA is patent. Right vertebral artery appears unremarkable. Left carotid system: Mild plaque is seen of the left common carotid artery. There is mild plaque als o noted at the carotid bulb and proximal ICA. No significant diameter reduction. ECA is patent. Lef t vertebral artery appears unremarkable. IMPRESSION: 1. No significant diameter reduction to account for the patient's symptoms. CTA [place] with 3-D reconstruction Contrast CTA of the [place] was performed 3-D reconstruction imaging obtained at a separate workstation. Vertebrobasilar system as well as intracranial portions of the internal carotid arteries and their ma renzo tributaries are patent. I do not see evidence for sizable aneurysm or vascular malformation. Pl ease note MRI provides greater sensitivity and specificity. Visualized brain appears grossly unremar kable. IMPRESSION: 1. No significant abnormality.
[2020-04-14] MEDS ORDERED: LORazepam 2 MG/ML INJ IV STA (15:11)
[2020-04-14 15:21] LABS: Appearance,Urine Clear (Clear); Bilirubin,Urine Negative (Negative); Blood,Urine Negative (Negative); Color,Urine Light Yellow; Glucose,Urine (UA) Negative (Negative); Ketones,Urine Negative (Negative); Leukocyte Esterase,Urine Negative (Negative); Nitrite,Urine Negative (Negative); PH, Urine 6.5 (5.0-8.0); Protein,Urine Negative (Negative); Specific Gravity,Urine 1.007 (1.001-1.035); Urobilinogen,Urine <2.0 mg/dL (<2.0)
[2020-04-14 16:03] LABS: Amphetamine Screen,Urine Not Detected (NotDetected); Barbiturate Screen,Urine Not Detected (NotDetected); Benzodiazepines Screen,Urine Not Detected (NotDetected); Cocaine Screen,Urine Not Detected (NotDetected); Methadone Screen, Urine Not Detected (NotDetected); Opiate Screen,Urine Not Detected (NotDetected); Oxycodone Screen, Urine Not Detected (NotDetected); Phencyclidine Screen,Urine Not Detected (NotDetected); Tricyclic Antidepressant,Urine Detected (NotDetected); Urn Cannabinoid Scrn Not Detected (NotDetected)
--- NOTE | 2020-04-14 16:04 | XR ---
EXAMINATION TYPE: XR chest 2V DATE OF EXAM: 04/14/2020 COMPARISON: Prior chest x-ray 03/27/2020, CT 04/25/2020 HISTORY: Altered mental status TECHNIQUE: Frontal and lateral views of the chest are obtained on 3 images. FINDINGS: There is no focal air space opacity, pleural effusion, or pneumothorax seen. The cardiac silhouette size is within normal limits. The osseous structures are intact. There are overlying car diac leads. There are prominent lung consistent with emphysema. IMPRESSION: No acute cardiopulmonary process.
[2020-04-14] MEDS ORDERED: FLUTICASONE 50MCG/SPRAY NASAL 16GM EA NOSTRIL PRN (16:43)
[2020-04-14] MEDS ORDERED: ALBUTEROL NEBULIZED 2.5 MG/3 ML INHALATION PRN (16:43)
[2020-04-14] MEDS ORDERED: levETIRAcetam IV 1,000 MG in SALINE 1 100ML.BAG IVPB STA (17:03)
[2020-04-14] MEDS: SODIUM CHLORIDE 0.9% 1,000 ML IV SCH (19:00)
[2020-04-14] MEDS ORDERED: GLYCOPYRROLATE INHALATION SCH (20:00)
[2020-04-14] MEDS ORDERED: FORMOTEROL FUM INHALATION SCH (20:00)
[2020-04-14] MEDS: FORMOTEROL FUMARATE 20 MCG/2 ML NEBU INHALATION SCH (20:37)
[2020-04-14] MEDS: IPRATROPIUM 0.5 MG/2.5 ML NEBU INHALATION SCH (20:37)
[2020-04-15] MEDS: QUEtiapine 100 MG TAB PO SCH ×2 (00:03→20:17)
[2020-04-15] MEDS: levETIRAcetam 500 MG TAB PO SCH ×3 (00:03→20:17)
[2020-04-15] MEDS: SODIUM CHLORIDE 0.9% 1,000 ML IV SCH ×2 (03:08→14:33)
[2020-04-15] MEDS: NALOXONE HCL SUBLINGUAL SCH ×3 (03:09→20:17)
[2020-04-15] MEDS: PATIENT'S OWN (Buprenorphine Hcl/Naloxone Hcl [Suboxone 8 Mg-2 Mg Sl Film] 1 FILM) SUBLINGUAL SCH ×3 (03:09→20:17)
[2020-04-15] MEDS: BUPRENORPHINE HCL SUBLINGUAL SCH ×3 (03:09→20:17)
[2020-04-15 04:33] LABS: Cholesterol 174 mg/dL (<200); HDL Cholesterol 85 mg/dL (40-60); LDL Cholesterol,Calculated 60 mg/dL (0-99); Triglycerides 144 mg/dL (<150)
[2020-04-15 05:21] LABS: Anisocytosis Slight; Basophils % (A) 0 %; Eosinophils # (A) 0.2 k/uL (0-0.7); Eosinophils % (A) 2 %; HCT 38.3 % (34.0-46.0); HGB 12.2 gm/dL (11.4-16.0); Lymphocytes % (A) 30 %; MCHC 31.8 g/dL (31.0-37.0); Mean Platelet Volume 6.6; Monocytes # (A) 0.6 k/uL (0-1.0); Monocytes % (A) 6 %; Neutrophils % (A) 61 %; Platelet Count 238 k/uL (150-450); RBC 4.35 m/uL (3.80-5.40); WBC 9.8 k/uL (3.8-10.6)
[2020-04-15 05:36] LABS: ALT 13 U/L (4-34); AST 25 U/L (14-36); African American GFR (CKD) >90 (>60 ml/min/1.73 sqM); Albumin 3.1 g/dL (3.5-5.0); Alkaline Phosphatase 57 U/L (38-126); Anion Gap 4 mmol/L; Blood Urea Nitrogen 11 mg/dL (7-17); Calcium 8.3 mg/dL (8.4-10.2); Carbon Dioxide 31 mmol/L (22-30); Chloride 101 mmol/L (98-107); Glucose 84 mg/dL (74-99); Non-African American GFR(CKD) >90 (>60 ml/min/1.73 sqM); Potassium 4.2 mmol/L (3.5-5.1); Sodium 136 mmol/L (137-145); Total Protein 5.3 g/dL (6.3-8.2)
--- NOTE | 2020-04-15 08:04 | XR ---
EXAMINATION TYPE: XR chest 1V portable DATE OF EXAM: 04/15/2020 HISTORY: Shortness of breath. COMPARISON: 04/14/2020 TECHNIQUE: Single view of the chest is submitted. Examination is limited by patient rotation. FINDINGS: Demonstrated are scattered senescent parenchymal change. There is no evidence for focal infiltrate. The heart is stable. Hilar and mediastinal structures are within normal limits. Degenerative changes are seen of the dorsal spine. IMPRESSION: 1. Chronic changes without evidence for acute pulmonary disease.
[2020-04-15] MEDS: IPRATROPIUM 0.5 MG/2.5 ML NEBU INHALATION SCH ×4 (08:14→20:03)
[2020-04-15] MEDS: FORMOTEROL FUMARATE 20 MCG/2 ML NEBU INHALATION SCH ×2 (08:14→20:03)
[2020-04-15] MEDS: CHOLECALCIFEROL 1,000 UNIT TAB PO SCH (08:56)
[2020-04-15] MEDS: LORATADINE 10 MG TAB PO SCH (08:56)
[2020-04-15] MEDS: DULoxetine HCL 60 MG CAPSULE.DR PO SCH (08:56)
[2020-04-15] MEDS: PANTOPRAZOLE 40 MG TABLET PO SCH (08:56)
[2020-04-15] MEDS: ATORVASTATIN 20 MG TAB PO SCH (08:56)
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
[2020-04-15 14:09] LABS: Glucose,Whole Blood 121 mg/dL (75-99)
[2020-04-15] MEDS: METOPROLOL SUCCINATE (ER) 25 MG TAB.ER.24H PO SCH (14:32)
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
--- NOTE | 2020-04-15 14:43 | EEG ---
ELECTROENCEPHALOGRAM REPORT DATE OF SERVICE: 04/15/2020 PREAMBLE: This is a 60-year-old female admitted with seizures. This study is performed to evaluate for any epileptiform activity. EEG FINDINGS: This is a 21 channel routine EEG recording in a patient utilizing 10/20 international system with referential and bipolar montages. The background consists of well- developed, moderately-well regulated, mixed frequencies of 8-9 hertz alpha with some theta activity. There is intermittent generalized rhythmic delta activity with frontal prominent predominance seen throughout the study. Mild drowsiness was seen with appearance of symmetric theta frequency, but deeper sleep is not seen. Photic driving response was not clearly seen. No definitive focal or generalized epileptiform activity was seen. EKG rhythm lead revealed no arrhythmia. IMPRESSION: This is an abnormal EEG due to mild background slowing, and also with evidence of generalized rhythmic delta activity with frontal predominance. This is suggestive of generalized cerebral dysfunction as can be seen with toxic metabolic encephalopathy or due to diffuse structural brain abnormality. No definitive epileptiform activity was seen. MMODL / IJN: [id number] /
--- NOTE | 2020-04-15 16:08 | MR ---
MR brain without contrast HISTORY: Acute cerebrovascular accident status post TPA Multiplanar multisequence imaging obtained through the brain Correlation to CT brain dated 04/14/2020 There is no restricted diffusion to suggest subacute ischemia. The corpus callosum, pituitary, cervic al medullary junction, cerebellopontine angles are unremarkable. There are normal vascular flow voids . The orbits show symmetric appearance. Periventricular confluent and scattered hyperintensities are present on inversion recovery T2-weighted sequences, there is extension into the pericallosal regions , subcortical and juxtacortical white matter. Greater than 50 lesions are present. Cortical atrophy i s likely age-related. There is inflammatory change in the ethmoid air cells. IMPRESSION: Chronic small vessel ischemic changes, age related atrophy. Mild sinus disease. No subacu te ischemic change evident.
[2020-04-16 06:26] LABS: Basophils % (A) 0 %; Eosinophils # (A) 0.2 k/uL (0-0.7); Eosinophils % (A) 2 %; HCT 36.9 % (34.0-46.0); HGB 11.4 gm/dL (11.4-16.0); Lymphocytes % (A) 34 %; MCH 27.5 pg (25.0-35.0); MCV 88.7 fL (80.0-100.0); Mean Platelet Volume 6.6; Monocytes # (A) 0.6 k/uL (0-1.0); Monocytes % (A) 6 %; Neutrophils % (A) 56 %; Platelet Count 236 k/uL (150-450); RBC 4.16 m/uL (3.80-5.40); RDW 15.9 % (11.5-15.5); WBC 8.9 k/uL (3.8-10.6)
[2020-04-16 06:33] LABS: African American GFR (CKD) >90 (>60 ml/min/1.73 sqM); Anion Gap 3 mmol/L; Blood Urea Nitrogen 6 mg/dL (7-17); Calcium 8.3 mg/dL (8.4-10.2); Carbon Dioxide 30 mmol/L (22-30); Chloride 101 mmol/L (98-107); Glucose 106 mg/dL (74-99); Non-African American GFR(CKD) >90 (>60 ml/min/1.73 sqM); Sodium 134 mmol/L (137-145)
[2020-04-16] MEDS: PANTOPRAZOLE 40 MG TABLET PO SCH (07:13)
[2020-04-16] MEDS: IPRATROPIUM 0.5 MG/2.5 ML NEBU INHALATION SCH ×4 (07:45→20:26)
[2020-04-16] MEDS: FORMOTEROL FUMARATE 20 MCG/2 ML NEBU INHALATION SCH ×2 (07:45→20:26)
[2020-04-16] MEDS: NALOXONE HCL SUBLINGUAL SCH ×2 (09:01→22:21)
[2020-04-16] MEDS: BUPRENORPHINE HCL SUBLINGUAL SCH ×2 (09:01→22:21)
[2020-04-16] MEDS: PATIENT'S OWN (Buprenorphine Hcl/Naloxone Hcl [Suboxone 8 Mg-2 Mg Sl Film] 1 FILM) SUBLINGUAL SCH ×2 (09:02→22:21)
[2020-04-16] MEDS: DULoxetine HCL 60 MG CAPSULE.DR PO SCH (09:08)
[2020-04-16] MEDS: LORATADINE 10 MG TAB PO SCH (09:08)
[2020-04-16] MEDS: ATORVASTATIN 20 MG TAB PO SCH (09:08)
[2020-04-16] MEDS: METOPROLOL SUCCINATE (ER) 25 MG TAB.ER.24H PO SCH (09:08)
[2020-04-16] MEDS: levETIRAcetam 500 MG TAB PO SCH ×3 (09:08→20:28)
[2020-04-16] MEDS: CHOLECALCIFEROL 1,000 UNIT TAB PO SCH (09:09)
--- NOTE | 2020-04-16 10:20 | P.PN ---
Subjective Progress Note Date: 04/16/20 Principal diagnosis: Right-sided weakness likely acute stroke status post TPA Acute focal seizure related to above Proximal atrial fibrillation Severe COPD currently stable not in exacerbation History of prior left parietal stroke 04/16/2020, patient seen eval examined during the rounds labs reviewed medications reviewed care plan discussed, denies any chest pain, breathing comfortably, at room air saturation 94-96%, hemodynamic status stable, patient is being observed in ICU for the acute stroke, status post TPA, tolerated very well, patient can be moved out of the ICU from pulmonary standpoint This is a 60-year-old female well-known to me for history of COPD also have extensive ulcerative colitis this patient was at home watching TV and started feeling strange and funny sensation neighbor was called for further assistance neighbor notified EMS, patient noted to have right-sided weakness by Yuni Boyer patient was brought to emergency department CT scan of the head shows chronic atrophic changes along with no acute intracranial process, patient underwent TPA and admitted into the ICU patient also started on anti-seizure medications, patient has been evaluated this morning weakness significantly improved on the right side with almost normalization of weakness in the right upper extremity however she still feel right lower extremity to be V her breathing status is stable denies any cough or sputum production shortness of breath has been a stable patient has been using her bronchodilator as usual Objective - Vital Signs Vital signs: Vital Signs Temp 98.7 F 04/16/20 04:00 Pulse 98 04/16/20 07:56 Resp 17 04/16/20 04:00 BP 100/65 04/16/20 04:00 Pulse Ox 95 04/16/20 04:00 Intake & Output 04/15/20 04/16/20 04/16/20 18:59 06:59 18:59 Intake Total 600 240 240 Output Total 700 650 Balance -100 -410 240 Weight 72.5 kg Intake: IV 600 Sodium Chloride 0.9% 1, 600 000 ml @ 100 mls/hr IV . Q10H DEX Rx#:[id number] Oral 240 240 Output: Urine 700 650 Other: Voiding Method Bedpan Toilet Bedpan # Voids 2 2 1 - Exam - Constitutional General appearance: average body habitus, cooperative, disheveled - EENT Eyes: EOMI, PERRLA ENT: normal oropharynx Ears: bilateral: normal - Neck Neck: normal ROM Carotids: bilateral: upstroke normal Thyroid: bilateral: normal size - Respiratory Respiratory: bilateral: CTA - Cardiovascular Rhythm: regular Heart sounds: normal: S1, S2 - Gastrointestinal General gastrointestinal: normal bowel sounds - Neurologic Neurologic: CNII-XII intact - Musculoskeletal Musculoskeletal: generalized weakness, right sided weakness - Psychiatric Psychiatric: A&O x's 3, appropriate affect, intact judgment & insight - Labs CBC & Chem 7: 04/16/20 05:56 07 05:56 Labs: Abnormal Lab Results - Last 24 Hours (Table) 04/14/20 04/16/20 04/16/20 Range/Units 17:36 05:56 05:56 RDW 15.9 H (11.5-15.5) % Sodium 134 L (137-145) mmol/L BUN 6 L (7-17) mg/dL Glucose 106 H (74-99) mg/dL POC Glucose (mg/dL) 121 H (75-99) mg/dL Calcium 8.3 L (8.4-10.2) mg/dL Assessment and Plan Assessment: Right-sided weakness likely acute stroke status post TPA Acute focal seizure related to above Proximal atrial fibrillation Severe COPD currently stable not in exacerbation History of prior left parietal stroke Plan: Observe closely Can be moved out of ICU as beds are made available Bronchodilator as needed DVT and peptic ulcer disease prophylaxis MRI of the brain chronic changes identified with small vessel disease and age- related atrophy Anticoagulation with Coumadin Further recommendations pending plan of care as per clinical response of the patient Time with Patient: Greater than 30
[2020-04-16] MEDS: QUEtiapine 100 MG TAB PO SCH (21:00)
[2020-04-17 06:42] LABS: INR 0.9 (<1.2); Prothrombin Time 9.6 sec (9.0-12.0)
[2020-04-17] MEDS: PANTOPRAZOLE 40 MG TABLET PO SCH (06:45)
[2020-04-17] MEDS: DULoxetine HCL 60 MG CAPSULE.DR PO SCH (08:24)
[2020-04-17] MEDS: ATORVASTATIN 20 MG TAB PO SCH (08:24)
[2020-04-17] MEDS: METOPROLOL SUCCINATE (ER) 25 MG TAB.ER.24H PO SCH (08:24)
[2020-04-17] MEDS: CHOLECALCIFEROL 1,000 UNIT TAB PO SCH (08:24)
[2020-04-17] MEDS: LORATADINE 10 MG TAB PO SCH (08:24)
[2020-04-17] MEDS: levETIRAcetam 500 MG TAB PO SCH ×2 (08:24→21:36)
[2020-04-17] MEDS: IPRATROPIUM 0.5 MG/2.5 ML NEBU INHALATION SCH ×4 (08:37→21:02)
[2020-04-17] MEDS: FORMOTEROL FUMARATE 20 MCG/2 ML NEBU INHALATION SCH ×2 (08:37→21:02)
--- NOTE | 2020-04-17 10:06 | P.PN ---
Subjective Progress Note Date: 04/17/20 Principal diagnosis: Stroke, status post TPA Patient is awake alert oriented [id number] female known to the practice history of COPD, history of UC patient denies chest pain breathing comfortably sats 94-96% on room air hemodynamically stable Objective - Vital Signs Vital signs: Vital Signs Temp 97.9 F 04/17/20 08:00 Pulse 84 04/17/20 08:54 Resp 18 04/17/20 08:00 BP 118/56 04/17/20 08:00 Pulse Ox 84 L 04/17/20 08:00 Intake & Output 04/16/20 04/17/20 04/17/20 18:59 06:59 18:59 Intake Total 1260 0 Output Total 651 Balance 1260 -651 Weight 67.7 kg Intake: Oral 1260 0 Output: Urine 650 Stool 1 Other: Voiding Method Toilet Toilet Toilet Bedpan # Voids 3 3 - Exam General: [Patient awake, alert and oriented times 3. Patient in no acute distress.] HEENT: [PERRL. EOMI. No pharyngeal erythema or exudate.] Neck: [No adenopathy.] Cardiac: [Heart regular in rate and rhythm. No S3. No S4. No clicks, rubs. No murmur.] Lungs: [Clear to auscultation bilaterally.] Abdomen: [No mass. No organomegaly. Bowel sounds presnt and normoactive in all 4 quadrants.] Extremes: Mild right-sided weakness : Normal female genitalia Musculoskeletal: [No joint erythema, edema or tenderness.] Skin: [No rash.] Neurologic: [No lateralizing deficits. CN II - XII grossly intact.] Lymphatic: [No adenopathy.] - Labs CBC & Chem 7: 04/16/20 05:56 04/16/20 05:56 Labs: Microbiology - Last 24 Hours (Table) 04/16/20 15:42 Gram Stain - Preliminary Sputum Sputum Culture - Preliminary Assessment and Plan (1) Cerebrovascular accident (CVA) Current Visit: Yes Status: Acute Code(s): I63.9 - CEREBRAL INFARCTION, UNSPECIFIED SNOMED Code(s): 294380454 (2) Seizure Current Visit: Yes Status: Acute Code(s): R56.9 - UNSPECIFIED CONVULSIONS SNOMED Code(s): 86567394 (3) COPD exacerbation Current Visit: No Status: Acute Code(s): J44.1 - CHRONIC OBSTRUCTIVE PULMONARY DISEASE W (ACUTE) EXACERBATION SNOMED Code(s): 133806660 (4) Cervical disc herniation Current Visit: No Status: Acute Code(s): M50.20 - OTHER CERVICAL DISC DISPLACEMENT, UNSP CERVICAL REGION SNOMED Code(s): 958921302 Plan: New onset seizure CVA status post TPA Right-sided weakness Recommend physical therapy evaluation Recommend occupational therapy evaluation Time with Patient: Greater than 30
[2020-04-17] MEDS: QUEtiapine 100 MG TAB PO SCH (21:36)
[2020-04-17] MEDS: NALOXONE HCL SUBLINGUAL SCH ×2 (22:06→22:07)
[2020-04-17] MEDS: BUPRENORPHINE HCL SUBLINGUAL SCH ×2 (22:06→22:07)
[2020-04-17] MEDS: PATIENT'S OWN (Buprenorphine Hcl/Naloxone Hcl [Suboxone 8 Mg-2 Mg Sl Film] 1 FILM) SUBLINGUAL SCH ×2 (22:06→22:07)
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
[2020-04-18] MEDS: PANTOPRAZOLE 40 MG TABLET PO SCH (06:47)
[2020-04-18] MEDS: CHOLECALCIFEROL 1,000 UNIT TAB PO SCH (08:32)
[2020-04-18] MEDS: PATIENT'S OWN (Buprenorphine Hcl/Naloxone Hcl [Suboxone 8 Mg-2 Mg Sl Film] 1 FILM) SUBLINGUAL SCH (08:32)
[2020-04-18] MEDS: ATORVASTATIN 20 MG TAB PO SCH (08:32)
[2020-04-18] MEDS: levETIRAcetam 500 MG TAB PO SCH (08:32)
[2020-04-18] MEDS: DULoxetine HCL 60 MG CAPSULE.DR PO SCH (08:32)
[2020-04-18] MEDS: LORATADINE 10 MG TAB PO SCH (08:32)
[2020-04-18] MEDS: BUPRENORPHINE HCL SUBLINGUAL SCH (08:32)
[2020-04-18] MEDS: NALOXONE HCL SUBLINGUAL SCH (08:32)
[2020-04-18] MEDS: METOPROLOL SUCCINATE (ER) 25 MG TAB.ER.24H PO SCH (08:32)
[2020-04-18] MEDS: IPRATROPIUM 0.5 MG/2.5 ML NEBU INHALATION SCH ×2 (08:35→12:27)
[2020-04-18] MEDS: FORMOTEROL FUMARATE 20 MCG/2 ML NEBU INHALATION SCH (08:35)
[2020-04-18] MEDS ORDERED: ENOXAPARIN 80 MG/0.8 ML SYRINGE SQ SCH (12:00)
--- NOTE | 2020-04-18 12:08 | ECHOF ---
Referral Reason:stroke MEASUREMENTS -------- HEIGHT: 172.7 cm WEIGHT: 73.9 kg BP: 121/70 RVIDd: 2.8 cm (< 3.3) IVSd: 1.4 cm (0.6 - 1.1) LVIDd: 3.6 cm (3.9 - 5.3) LVPWd: 1.4 cm (0.6 - 1.1) IVSs: 1.8 cm LVIDs: 2.6 cm LVPWs: 1.5 cm LA Diam: 3.3 cm (2.7 - 3.8) LAESV Index (A-L): 26.09 ml/m Ao Diam: 2.4 cm (2.0 - 3.7) MV EXCURSION: 19.783 mm (> 18.000) MV EF SLOPE: 38 mm/s (70 - 150) EPSS: 0.5 cm MV E Agustín: 0.73 m/s MV DecT: 390 ms MV A Agustín: 0.90 m/s MV E/A Ratio: 0.81 RAP: 5.00 mmHg RVSP: 43.20 mmHg FINDINGS -------- Sinus rhythm. This was a technically adequate study. The left ventricular size is normal. There is moderate concentric left ventricular hypertrophy. O verall left ventricular systolic function is normal with, an EF between 55 - 60 %. The right ventricle is normal in size. Normal LA size by volume 22+/-6 ml/m2. The right atrial size is normal. Interatrial and interventricular septum intact. There is mild aortic valve sclerosis. The mitral valve is normal. Mild mitral regurgitation is present. Pnow-to-oczmhmeq tricuspid regurgitation present. There is mild pulmonary hypertension. The right ventricular systolic pressure, as measured by Doppler, is 43.20mmHg. Trace/mild (physiologic) pulmonic regurgitation. The aortic root size is normal. Normal inferior vena cava with normal inspiratory collapse consistent with estimated right atrial pre ssure of 5 mmHg. There is no pericardial effusion. CONCLUSIONS -------- 1. There is moderate concentric left ventricular hypertrophy. 2. Overall left ventricular systolic function is normal with, an EF between 55 - 60 %. 3. Normal LA size by volume 22+/-6 ml/m2. 4. There is mild aortic valve sclerosis. 5. Mild mitral regurgitation is present. 6. Vazw-nd-sxtfipmz tricuspid regurgitation present. 7. Trace/mild (physiologic) pulmonic regurgitation. 8. There is no pericardial effusion. SIDE LASTER TACK: Carmenza Stanley RDCS
--- NOTE | 2020-04-18 13:47 | P.DS ---
Providers Date of admission: 04/14/20 16:41 Expected date of discharge: 04/18/20 Attending physician: Vidal Rubio Consults: 04/14/20 16:48 Consult Physician Urgent Consulting Provider: Nati Bahena Consult Reason/Comments: Possible CVA, seizure, TPA given Do you want consulting provider notified?: Yes 04/14/20 18:42 Consult Physician Urgent Consulting Provider: Jaun Cortez Consult Reason/Comments: CVA/TPA Do you want consulting provider notified?: Already Contacted 04/15/20 12:03 Consult Physician Routine Consulting Provider: Chapin Harris Consult Reason/Comments: Possible IPR Do you want consulting provider notified?: Yes Primary care physician: Phil [facility] Hospital Course: Final Diagnoses: Possible acute CVA, status post TPA, in a patient with 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 Patient states missing doses of Keppra per ER record. Chronic Paroxysmal atrial fibrillation,subtherapeutic INR on admission CAD gastroesophageal reflux disease Right carotid stenosis, history of History of CVA/TIA Hypertrophic obstructive cardiomyopathy Hypertension Hyperlipidemia Osteoarthritis Bipolar Ongoing nicotine dependence, smoking cessation reinforced. Daily marijuana use History of polysubstance abuse, crack, cocaine Mild to moderate tricuspid regurgitation Mild pulmonary hypertension Hospital course:This is a 60-year-old female with history of atrial fibrillation, CAD, COPD, history of CVA/TIA, gastroesophageal reflux disease, seizure disorder, bipolar, 3-4 cups of coffee per day in addition to consuming 2 L Mountain Dew daily,ongoing nicotine and marijuana dependence, history of polysubstance abuse-crack, cocaine on Suboxone, right carotid stenosis, 50-60% and multiple other medical issues presented to the ER via EMS with complaints of recurrent seizure activity, some confusion, right upper and lower extremity weakness with loss of sensation, slurred speech. Denies incontinence of urine or bowel movement, no tongue biting. Reports compliance with all medications including Coumadin and Keppra. NIH on admission 7,INR 1.0, received TPA. CT/CTA reported negative/nonacute. Seizure activity in the ER, received Ativan and Keppra. Patient reports similar presentation back in September 2019 when she was in [place]. Vital signs stable on admission, BS 200. EKG reported sinus ta chycardia with PACs, biatrial enlargement. Troponin 0.039. Right upper extremity weakness and loss of sensation resolved by time of exam in the ICU. Right lower extremity weakness/sensation improving.Neurology consulted with workup initiated. Evaluated by neurology, metal hanging helper/pulmonary/, inpatient PT. Keppra dose increased. No further seizure activity. Echo reporting normal LV function, EF 55-60%, mild to moderate tricuspid regurgitation , mild pulmonary hypertension , no thrombus reported. Significant clinical improvement. Bridging Coumadin with Lovenox. Patient will be discharged today in stable condition with guarded prognosis pending PTs reevaluation/recommendations, final DC recommendations and clearance from neurology. The impression and plan of care has been dictated as directed. : I performed a history and examination of this patient, discussed the same with the dictator. I agree with the dictator's note ,documented as a scribe. Any additional findings or plans will be noted. Patient Condition at Discharge: Stable Plan - Discharge Summary Discharge Rx Participant: Yes New Discharge Prescriptions: New Warfarin Sodium [Coumadin] 2.5 mg PO DAILY@1800 #7 tablet levETIRAcetam [Keppra] 1,000 mg PO Q12HR #120 tab Enoxaparin [Lovenox] 80 mg SQ Q12HR #6 syringe Continue Metoprolol Succinate (ER) [Toprol XL] 25 mg PO DAILY Buprenorphine HCl/Naloxone HCl [Suboxone 8 mg-2 mg Sl Film] 1 film SL BID Loratadine [Claritin] 10 mg PO DAILY DULoxetine HCL [Cymbalta] 60 mg PO DAILY QUEtiapine FUMARATE [SEROquel] 300 mg PO HS Atorvastatin [Lipitor] 20 mg PO DAILY Glycopyrrolate/Formoterol Fum [Bevespi Aerosphere Inhaler] 2 puff INHALATION RT-BID Pantoprazole Sodium [Protonix] 40 mg PO DAILY #30 tablet. Fluticasone Nasal [place] [Flonase Nasal [place]] 2 spr EA NOSTRIL DAILY PRN PRN Reason: Allergy Symptoms Albuterol Sulfate [Albuterol Sulfate Hfa] 2 puff PO RT-Q6H PRN PRN Reason: Shortness Of Breath predniSONE See Taper PO DAILY Buprenorphine HCl/Naloxone HCl [Suboxone 2 mg-0.5 mg Sl Film] 1 film SL BID Cholecalciferol [Vitamin D3 (25 Mcg = 1000 Iu)] 2,000 unit PO DAILY Discontinued levETIRAcetam [Keppra] 500 mg PO BID Discharge Medication List Metoprolol Succinate (ER) [Toprol XL] 25 mg PO DAILY 02/21/18 [History] Buprenorphine HCl/Naloxone HCl [Suboxone 8 mg-2 mg Sl Film] 1 film SL BID 04/15/18 [History] DULoxetine HCL [Cymbalta] 60 mg PO DAILY 11/09/18 [History] Loratadine [Claritin] 10 mg PO DAILY 11/09/18 [History] Atorvastatin [Lipitor] 20 mg PO DAILY 03/18/19 [History] QUEtiapine FUMARATE [SEROquel] 300 mg PO HS 03/18/19 [History] Glycopyrrolate/Formoterol Fum [Bevespi Aerosphere Inhaler] 2 puff INHALATION RT- BID 11/24/19 [History] Pantoprazole Sodium [Protonix] 40 mg PO DAILY #30 tablet. 11/26/19 [Rx] Albuterol Sulfate [Albuterol Sulfate Hfa] 2 puff PO RT-Q6H PRN 03/27/20 [History] Fluticasone Nasal [place] [Flonase Nasal [place]] 2 spr EA NOSTRIL DAILY PRN 03/27/20 [History] Buprenorphine HCl/Naloxone HCl [Suboxone 2 mg-0.5 mg Sl Film] 1 film SL BID 04/14/20 [History] Cholecalciferol [Vitamin D3 (25 Mcg = 1000 Iu)] 2,000 unit PO DAILY 04/14/20 [History] predniSONE See Taper PO DAILY 04/14/20 [History] Enoxaparin [Lovenox] 80 mg SQ Q12HR #6 syringe 04/18/20 [Rx] Warfarin Sodium [Coumadin] 2.5 mg PO DAILY@1800 #7 tablet 04/18/20 [Rx] levETIRAcetam [Keppra] 1,000 mg PO Q12HR #120 tab 04/18/20 [Rx] Follow up Appointment(s)/Referral(s): Ghazala Roman MD [Medical Doctor] - 1 Week Phil Palma MD [Primary Care Provider] - 3 Days Jaun Cortez MD [STAFF PHYSICIAN] - 1 Week Ambulatory/Diagnostic Orders: Prothrombin Time INR [LAB.AMB] Time Frame: 04/21/20, Location: None Selected Activity/Diet/Wound Care/Special Instructions: Pending PT/OT reevaluation recommendations ,neurology final DC recommendations, Clearence
[2020-04-18 14:49] VITALS: BP 117/62; PULSE 83; RESP 18; TEMP 98.2
--- NOTE | 2020-04-18 15:12 | P.PN ---
Subjective Progress Note Date: 04/17/20 (Late entry note) Principal diagnosis: Right-sided weakness likely acute stroke status post TPA Acute focal seizure related to above Proximal atrial fibrillation Severe COPD currently stable not in exacerbation History of prior left parietal stroke 04/17/2020, patient continued do well have been actively undergoing physical therapy to strengthen the right leg continued to improve, respiratory status stable 04/16/2020, patient seen eval examined during the rounds labs reviewed medications reviewed care plan discussed, denies any chest pain, breathing comfortably, at room air saturation 94-96%, hemodynamic status stable, patient is being observed in ICU for the acute stroke, status post TPA, tolerated very well, patient can be moved out of the ICU from pulmonary standpoint This is a 60-year-old female well-known to me for history of COPD also have extensive ulcerative colitis this patient was at home watching TV and started feeling strange and funny sensation neighbor was called for further assistance neighbor notified EMS, patient noted to have right-sided weakness by Yuni Boyer patient was brought to emergency department CT scan of the head shows chronic atrophic changes along with no acute intracranial process, patient underwent TPA and admitted into the ICU patient also started on anti-seizure medications, patient has been evaluated this morning weakness significantly improved on the right side with almost normalization of weakness in the right upper extremity however she still feel right lower extremity to be V her breathing status is stable denies any cough or sputum production shortness of breath has been a stable patient has been using her bronchodilator as usual Objective - Vital Signs Vital signs: Vital Signs temperature is 97.9, heart rate 84, respiratory rate 18, blood pressure is 118/56, oxygen saturation 94-96% Intake & Output - Exam - Constitutional General appearance: average body habitus, cooperative, disheveled - EENT Eyes: EOMI, PERRLA ENT: normal oropharynx Ears: bilateral: normal - Neck Neck: normal ROM Carotids: bilateral: upstroke normal Thyroid: bilateral: normal size - Respiratory Respiratory: bilateral: CTA - Cardiovascular Rhythm: regular Heart sounds: normal: S1, S2 - Gastrointestinal General gastrointestinal: normal bowel sounds - Neurologic Neurologic: CNII-XII intact - Musculoskeletal Musculoskeletal: generalized weakness, right sided weakness - Psychiatric Psychiatric: A&O x's 3, appropriate affect, intact judgment & insight - Labs CBC & Chem 7: 04/16/20 05:56 04/16/20 05:56 Labs: Microbiology - Last 24 Hours (Table) 04/16/20 15:42 Gram Stain - Final Sputum Sputum Culture - Final Assessment and Plan Assessment: Right-sided weakness likely acute stroke status post TPA Acute focal seizure related to above Proximal atrial fibrillation Severe COPD currently stable not in exacerbation History of prior left parietal stroke Plan: Observe closely Can be moved out of ICU as beds are made available Bronchodilator as needed DVT and peptic ulcer disease prophylaxis MRI of the brain chronic changes identified with small vessel disease and age- related atrophy Anticoagulation with Coumadin Further recommendations pending plan of care as per clinical response of the patient
--- NOTE | 2020-04-18 15:13 | P.PN ---
Subjective Progress Note Date: 04/18/20 Principal diagnosis: Right-sided weakness likely acute stroke status post TPA Acute focal seizure related to above Proximal atrial fibrillation Severe COPD currently stable not in exacerbation History of prior left parietal stroke 04/18/2020, patient seen eval examined during the rounds labs reviewed medications reviewed care plan discussed, denies any chest pain has been a mbulating in the room, respiratory status remains stable agree with discharge planning and follow-up in outpatient basis 04/17/2020, patient continued do well have been actively undergoing physical t herapy to strengthen the right leg continued to improve, respiratory status stable 04/16/2020, patient seen eval examined during the rounds labs reviewed medications reviewed care plan discussed, denies any chest pain, breathing comfortably, at room air saturation 94-96%, hemodynamic status stable, patient is being observed in ICU for the acute stroke, status post TPA, tolerated very well, patient can be moved out of the ICU from pulmonary standpoint This is a 60-year-old female well-known to me for history of COPD also have extensive ulcerative colitis this patient was at home watching TV and started feeling strange and funny sensation neighbor was called for further assistance neighbor notified EMS, patient noted to have right-sided weakness by Yuni Boyer patient was brought to emergency department CT scan of the head shows chronic atrophic changes along with no acute intracranial process, patient underwent TPA and admitted into the ICU patient also started on anti-seizure medications, patient has been evaluated this morning weakness significantly improved on the right side with almost normalization of weakness in the right upper extremity however she still feel right lower extremity to be V her breathing status is stable denies any cough or sputum production shortness of breath has been a stable patient has been using her bronchodilator as usual Objective - Vital Signs Vital signs: Vital Signs Temp 98.2 F 04/18/20 12:00 Pulse 80 04/18/20 12:34 Resp 18 04/18/20 12:00 BP 117/62 04/18/20 12:00 Pulse Ox 90 L 04/18/20 12:00 Intake & Output 04/17/20 04/18/20 04/18/20 18:59 06:59 18:59 Intake Total 600 340 Output Total 2 Balance 600 -2 340 Weight 74 kg Intake: Oral 600 340 Output: Stool 2 Other: Voiding Method Toilet Toilet # Voids 1 1 - Exam - Constitutional General appearance: average body habitus, cooperative, disheveled - EENT Eyes: EOMI, PERRLA ENT: normal oropharynx Ears: bilateral: normal - Neck Neck: normal ROM Carotids: bilateral: upstroke normal Thyroid: bilateral: normal size - Respiratory Respiratory: bilateral: CTA - Cardiovascular Rhythm: regular Heart sounds: normal: S1, S2 - Gastrointestinal General gastrointestinal: normal bowel sounds - Neurologic Neurologic: CNII-XII intact - Musculoskeletal Musculoskeletal: generalized weakness, right sided weakness - Psychiatric Psychiatric: A&O x's 3, appropriate affect, intact judgment & insight - Labs CBC & Chem 7: 04/16/20 05:56 04/16/20 05:56 Labs: Microbiology - Last 24 Hours (Table) 04/16/20 15:42 Gram Stain - Final Sputum Sputum Culture - Final Assessment and Plan Assessment: Right-sided weakness likely acute stroke status post TPA Acute focal seizure related to above Proximal atrial fibrillation Severe COPD currently stable not in exacerbation History of prior left parietal stroke Plan: Observe closely Can be moved out of ICU as beds are made available Bronchodilator as needed DVT and peptic ulcer disease prophylaxis MRI of the brain chronic changes identified with small vessel disease and age-related atrophy Anticoagulation with Coumadin Further recommendations pending plan of care as per clinical response of the patient Time with Patient: Greater than 30
[2020-04-18] MEDS ORDERED: WARFARIN 10 MG TAB PO ONE (18:00)
--- NOTE | 2020-04-18 21:48 | P.PN ---
Subjective Progress Note Date: 04/18/20 Principal diagnosis: This is a 60-year-old female with history of focal onset seizure disorder came with a fall and a seizure witnessed at home. The patient was noted to have right facial deficit of which the patient received thrombolysis with TPA. History of proximal atrial fibrillation on long-term medical vision. The patient on R was subtherapeutic on arrival. History of left parietal stroke with some residual right leg weakness. Tobacco use. History of hypertrophic obstructive cardiomyopathy. Seizure TIA is a possibility. The EEG was performed today showed mild background slowing with intermittent generalized rhythmic delta activity with frontal predominance she just above mild encephalopathy. No epileptiform activity was seen. Patient states she is compliant with Keppra. She does not miss any dose although the ED doc did mention that she has missed a dose of Keppra in the morning. We'll increase the dose of Keppra to 1000 mg twice a day. MRI of the brain does not show any acute stroke. Coumadin is resumed. Patient to continue Lipitor 20 mg daily. The patient was notified to follow up with neurology as an outpatient regarding her seizure as well as a the possibility of her having a TIA. The patient was notified that she could not drive according to the [place] law for the 6 months unless seizure free to avoid heavy machinery or heights. Today the patient states that she's doing much better she feels that she is back to baseline. She is walking unassisted. Objective - Vital Signs Vital signs: Vital Signs Temp 98.2 F 04/18/20 12:00 Pulse 80 04/18/20 12:34 Resp 18 04/18/20 12:00 BP 117/62 04/18/20 12:00 Pulse Ox 90 L 04/18/20 12:00 Intake & Output 04/18/20 04/18/20 04/19/20 06:59 18:59 06:59 Intake Total 340 Output Total 2 Balance -2 340 Weight 74 kg Intake: Oral 340 Output: Stool 2 Other: Voiding Method Toilet # Voids 1 - Exam GENERAL: The patient is lying in bed and is not in acute distress. CHEST: The heart rate is regular rate rhythm. No murmurs to auscultation. . LUNG: Clear to auscultation bilaterally no wheezing noted throughout. Not labored breathing. ABDOMEN/GI: Bowel sounds present in all 4 quadrants. No tenderness to palpation throughout. NEUROLOGICAL: Higher mental function: The patient is awake, alert, oriented to self, place and time. Patient is following commands. No aphasia and no neglect. Cranial nerves: The pupils are round, equal and reactive to light and accommodation. Visual weaver are full to confrontation throughout. Extraocular movement is intact no nystagmus is noted. Facial sensation is normal to touch throughout. The facial strength is normal throughout. Hearing is normal bilaterally to hand rub. Tongue is midline and moved [id number] without any difficulty. No dysarthria is noted. Shoulder shrug is normal bilaterally. Motor: The strength is 5 over 5 throughout. Normal tone and bulk. Sensation: Sensation is normal to touch throughout. Reflexes (right/left): 1+ throughout. Plantars are downgoing bilaterally. - Labs CBC & Chem 7: 04/16/20 05:56 04/16/20 05:56 Labs: Microbiology - Last 24 Hours (Table) 04/16/20 15:42 Gram Stain - Final Sputum Sputum Culture - Final
--- NOTE | 2020-04-20 01:53 | CDI ---
Documentation Clarification Form Date: 04/20/2020 From: Gui Dyer Phone: If you have a question about this query, please contact Meme Villegas, Head Greenskeeper at [phone] between 8am and 5pm. Admit Date: 04/14/2020 Discharge Date: 04/18/2020 Patient Name: Fabiola Giraldo Visit Number: [id number] ATTENTION: The Clinical Documentation Specialists (CDI) and [facility] Coding Staff appreciate your assistance in clarifying documentation. Please respond to the clarification below the line at the bottom and electronically sign. The CDI & [facility] Coding staff will review the response and follow-up if needed. Please note: Queries are made part of the Legal Health Record. If you have any questions, please contact the author of this message via ITS. Dear Vidal Nieves DO., Encephalopathy is documented in the 04/15 Dr. Nati Bahena consult note "EEG was performed.It showed mild background slowing with intermittent generalized rhythmic delta activity with frontal predominance, suggestive of mild encephalopathy". History/Risk Factors: CVA, TPA, Right sided weakness EEG:This is an abnormal EEG due to mild background slowing, and also with evidence of generalized rhythmic delta activity with frontal predominance.This is suggestive of generalized cerebral dysfunction as can be seen with toxic metabolic encephalopathy or due to diffuse structural brain abnormality.No definitive epileptiform activity was seen. CT/MRI Brain:Chronic small vessel ischemic changes, age related atrophy.Mild sinus disease. Treatment: TPA 04/18 Chapin Gutierrez mentioned as "He did review tests and note only encephalopathy". In your professional opinion, can you please clarify the specific type of Encephalopathy, if known? Metabolic Encephalopathy Septic Encephalopathy Toxic Encephalopathy Other, please specify Unable to determine MTDD
--- NOTE | 2020-05-05 22:42 | CDI ---
Documentation Clarification Form Date: 05/06/2020 From: Gui Dyer Phone: If you have a question about this query, please contact Meme Villegas, Stopper Setter at [phone] between 8am and 5pm. Admit Date: 04/14/2020 Discharge Date: 04/18/2020 Patient Name: Fabiola Giraldo Visit Number: [id number] ATTENTION: The Clinical Documentation Specialists (CDI) and [facility] Coding Staff appreciate your assistance in clarifying documentation. Please respond to the clarification below the line at the bottom and electronically sign. The CDI & [facility] Coding staff will review the response and follow-up if needed. Please note: Queries are made part of the Legal Health Record. If you have any questions, please contact the author of this message via ITS. Dear Vidal Nieves DO., Encephalopathy is documented in the 04/15 Dr. Nati Bahena consult note "EEG was performed.It showed mild background slowing with intermittent generalized rhythmic delta activity with frontal predominance, suggestive of mild encephalopathy". History/Risk Factors: CVA, TPA, Right sided weakness EEG:This is an abnormal EEG due to mild background slowing, and also with evidence of generalized rhythmic delta activity with frontal predominance.This is suggestive of generalized cerebral dysfunction as can be seen with toxic metabolic encephalopathy or due to diffuse structural brain abnormality.No definitive epileptiform activity was seen. CT/MRI Brain:Chronic small vessel ischemic changes, age related atrophy.Mild sinus disease. Treatment: TPA 04/18 Chapin Gutierrez mentioned as "He did review tests and note only encephalopathy". In your professional opinion, can you please clarify the specific type of Encephalopathy, if known? Metabolic Encephalopathy Septic Encephalopathy Toxic Encephalopathy Other, please specify Unable to determine mild metabolic encephalopathy MTDD
== END 2020-04-18 15:20 | disposition home or self-care (01) | DRG 61 ==
LOC: EC 14:05 → 2SICU 16:41 → 3SCARD 04-16 18:06
PROVIDERS: ADMIT Family Medicine; ATTEND Family Medicine
DX: I63.9 Cerebral infarction, unspecified (principal); G93.41 Metabolic encephalopathy; I42.1 Obstructive hypertrophic cardiomyopathy; G40.89 Other seizures; G81.91 Hemiplegia, unspecified affecting right dominant side; K51.90 Ulcerative colitis, unspecified, without complications; I10 Essential (primary) hypertension; E78.5 Hyperlipidemia, unspecified; I25.10 Atherosclerotic heart disease of native coronary artery without angina pectoris; F17.210 Nicotine dependence, cigarettes, uncomplicated; F41.9 Anxiety disorder, unspecified; F31.9 Bipolar disorder, unspecified; I27.20 Pulmonary hypertension, unspecified; M19.90 Unspecified osteoarthritis, unspecified site; K21.9 Gastro-esophageal reflux disease without esophagitis; I07.1 Rheumatic tricuspid insufficiency; I48.0 Paroxysmal atrial fibrillation; I69.341 Monoplegia of lower limb following cerebral infarction affecting right dominant side; R53.81 Other malaise; M50.20 Other cervical disc displacement, unspecified cervical region; I65.21 Occlusion and stenosis of right carotid artery; F12.90 Cannabis use, unspecified, uncomplicated; J44.9 Chronic obstructive pulmonary disease, unspecified; Z11.59 Encounter for screening for other viral diseases; Z79.899 Other long term (current) drug therapy; Z88.1 Allergy status to other antibiotic agents; Z88.8 Allergy status to other drugs, medicaments and biological substances; Z87.01 Personal history of pneumonia (recurrent); Z79.01 Long term (current) use of anticoagulants; Z90.49 Acquired absence of other specified parts of digestive tract; Z98.890 Other specified postprocedural states; Z90.721 Acquired absence of ovaries, unilateral; Z83.3 Family history of diabetes mellitus; Z82.49 Family history of ischemic heart disease and other diseases of the circulatory system; Z80.0 Family history of malignant neoplasm of digestive organs; Z81.8 Family history of other mental and behavioral disorders; Z84.89 Family history of other specified conditions
CPT/HCPCS: 36415; 37195; 70450; 70496; 70498; 70551; 71045; 71046; 80048; 80053; 80061; 80306; 81003; 82550; 84484; 85025; 85610; 85730; 87070; 87205; 93005; 93306; 94640; 94760; 95816; 96360; 96374; 99291

== ENCOUNTER 2020-05-06 19:03 | Inpatient (IN) | payer OTHER ==
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
[2020-05-06] MEDS ORDERED: SODIUM CHLORIDE 0.9% 1,000 ML IV STA (20:03)
[2020-05-06 20:31] LABS: Basophils # (A) 0.1 k/uL (0-0.2); Basophils % (A) 0 %; Eosinophils # (A) 0.2 k/uL (0-0.7); Eosinophils % (A) 1 %; HCT 46.6 % (34.0-46.0); Lymphocytes # (A) 5.4 k/uL (1.0-4.8); Lymphocytes % (A) 28 %; MCH 28.6 pg (25.0-35.0); MCV 86.5 fL (80.0-100.0); Mean Platelet Volume 7.3; Monocytes # (A) 1.3 k/uL (0-1.0); Monocytes % (A) 7 %; Neutrophils # (A) 12.1 k/uL (1.3-7.7); Neutrophils % (A) 63 %; Platelet Count 265 k/uL (150-450); RBC 5.38 m/uL (3.80-5.40); RDW 15.5 % (11.5-15.5); WBC 19.3 k/uL (3.8-10.6)
[2020-05-06 20:32] LABS: HGB 15.4 gm/dL (11.4-16.0)
--- NOTE | 2020-05-06 20:38 | CT ---
EXAMINATION TYPE: CT brain wo con DATE OF EXAM: 05/06/2020 COMPARISON: 04/14/2020 INDICATION: weakness, confusion DLP: 1290.4 mGycm, Automated exposure control for dose reduction was used. CONTRAST: None CT of the brain is performed utilizing 3 mm thick sections through the posterior fossa and 3 mm thick sections through the remaining calvarium. Study is performed within 24 hours of arrival to the hosp ital. No abnormal hyperdensity is present to suggest an acute intracranial hemorrhage. No mass lesion is evident. No acute infarcts are evident. There is some subtle subcortical hypodensity within the right parietal lobe, stable from comparison. Subtle subcortical centrum semiovale hypodensities in the left parieta l region present previously Ventricles and sulci are appropriate for the patient age. Paranasal sinuses and mastoid air cells within the [id number] are clear. IMPRESSIONS: 1. Stable subcortical white matter changes, likely chronic in nature. 2. No acute intracranial process
--- NOTE | 2020-05-06 20:39 | XR ---
EXAMINATION TYPE: XR chest 2V DATE OF EXAM: 05/06/2020 COMPARISON: 04/15/2020 INDICATION: Syncope TECHNIQUE: Frontal and lateral views of the chest are obtained. FINDINGS: The heart size is normal. The pulmonary vasculature is normal. The lungs are clear. IMPRESSION: 1. No acute pulmonary process.
[2020-05-06 20:40] LABS: ALT 12 U/L (4-34); AST 34 U/L (14-36); African American GFR (CKD) 60 (>60 ml/min/1.73 sqM); Albumin 4.4 g/dL (3.5-5.0); Alcohol <10 mg/dL; Alkaline Phosphatase 74 U/L (38-126); Anion Gap 12 mmol/L; Blood Urea Nitrogen 16 mg/dL (7-17); Calcium 8.7 mg/dL (8.4-10.2); Carbon Dioxide 26 mmol/L (22-30); Chloride 90 mmol/L (98-107); Glucose 102 mg/dL (74-99); Magnesium 1.5 mg/dL (1.6-2.3); Non-African American GFR(CKD) 52 (>60 ml/min/1.73 sqM); Potassium 3.1 mmol/L (3.5-5.1); Sodium 128 mmol/L (137-145); Total Bilirubin 0.9 mg/dL (0.2-1.3)
--- NOTE | 2020-05-06 20:40 | XR ---
EXAMINATION TYPE: XR wrist complete RT DATE OF EXAM: 05/06/2020 COMPARISON: 08/31/2016 HISTORY: Fall on wrist trauma pain TECHNIQUE: 2 view right wrist FINDINGS: There is soft tissue swelling over the ulna. Diffuse soft tissue swelling is over the wrist . Joint spaces appear preserved. There is a subtle cortical defect along the distal metaphyseal radius along its radial aspect best vi sualized on the oblique and lateral views. IMPRESSION: 1. Subtle nondisplaced fracture distal metaphyseal radius. 2. Diffuse soft tissue swelling with more focal swelling over the ulna.
[2020-05-06 20:44] LABS: INR 3.3 (<1.2); Partial Thromboplastin Time 35.1 sec (22.0-30.0); Prothrombin Time 32.4 sec (9.0-12.0)
[2020-05-06 20:48] LABS: D-Dimer 1.22 mg/L FEU (<0.60)
[2020-05-06] MEDS ORDERED: HYDROmorphone 1 MG/ML 1 ML SYRINGE IVP STA ×2 (20:49→21:42)
[2020-05-06] MEDS ORDERED: MAGNESIUM SULFATE-D5W PMX 1 GM in DEXTROSE/WATER 1 100ML.BAG IVPB ONE (20:50)
[2020-05-06] MEDS ORDERED: POTASSIUM CHLORIDE ER 20 MEQ TAB.ER PO STA (20:50)
[2020-05-06 20:57] LABS: Appearance,Urine Clear (Clear); Bilirubin,Urine Negative (Negative); Blood,Urine Negative (Negative); Color,Urine Yellow; Glucose,Urine (UA) Negative (Negative); Hyaline Casts,Urine 3 /lpf (0-2); Ketones,Urine Negative (Negative); Leukocyte Esterase,Urine Small (Negative); Mucus,Urine Rare /hpf; Nitrite,Urine Negative (Negative); Protein,Urine Negative (Negative); RBC,Urine 1 /hpf (0-5); Specific Gravity,Urine 1.007 (1.001-1.035); Squamous Epithelial Cell,Urine 3 /hpf (0-4); Urobilinogen,Urine <2.0 mg/dL (<2.0); WBC,Urine 3 /hpf (0-5)
[2020-05-06 21:04] LABS: Amphetamine Screen,Urine Not Detected (NotDetected); Barbiturate Screen,Urine Not Detected (NotDetected); Benzodiazepines Screen,Urine Not Detected (NotDetected); Cocaine Screen,Urine Not Detected (NotDetected); Methadone Screen, Urine Not Detected (NotDetected); Opiate Screen,Urine Not Detected (NotDetected); Oxycodone Screen, Urine Not Detected (NotDetected); Phencyclidine Screen,Urine Not Detected (NotDetected); Tricyclic Antidepressant,Urine Detected (NotDetected); Urn Cannabinoid Scrn Detected (NotDetected)
[2020-05-06] MEDS: SODIUM CHLORIDE 0.9% 1,000 ML IV SCH (21:13)
[2020-05-06] MEDS ORDERED: NALOXONE 0.4 MG/ML 1 ML VIAL IV PRN (21:54)
[2020-05-06] MEDS ORDERED: HYDROmorphone 1 MG/ML 1 ML SYRINGE IVP PRN (21:54)
[2020-05-06] MEDS ORDERED: HYDROmorphone 0.5 MG/0.5 ML SYRINGE IVP PRN (21:54)
[2020-05-07 06:57] LABS: Basophils # (A) 0.1 k/uL (0-0.2); Basophils % (A) 1 %; Eosinophils # (A) 0.2 k/uL (0-0.7); Eosinophils % (A) 1 %; HCT 39.7 % (34.0-46.0); HGB 12.7 gm/dL (11.4-16.0); Lymphocytes # (A) 3.2 k/uL (1.0-4.8); Lymphocytes % (A) 23 %; MCH 27.8 pg (25.0-35.0); MCV 86.9 fL (80.0-100.0); Monocytes % (A) 7 %; Neutrophils # (A) 9.4 k/uL (1.3-7.7); Neutrophils % (A) 67 %; Platelet Count 225 k/uL (150-450); RBC 4.57 m/uL (3.80-5.40); RDW 15.6 % (11.5-15.5); WBC 14.1 k/uL (3.8-10.6)
[2020-05-07 07:08] LABS: ALT 11 U/L (4-34); AST 26 U/L (14-36); African American GFR (CKD) >90 (>60 ml/min/1.73 sqM); Albumin 3.2 g/dL (3.5-5.0); Alkaline Phosphatase 63 U/L (38-126); Anion Gap 4 mmol/L; Blood Urea Nitrogen 9 mg/dL (7-17); Calcium 7.4 mg/dL (8.4-10.2); Carbon Dioxide 26 mmol/L (22-30); Chloride 104 mmol/L (98-107); Glucose 109 mg/dL (74-99); Magnesium 1.7 mg/dL (1.6-2.3); Non-African American GFR(CKD) >90 (>60 ml/min/1.73 sqM); Potassium 3.7 mmol/L (3.5-5.1); Sodium 134 mmol/L (137-145); Total Bilirubin 1.3 mg/dL (0.2-1.3); Total Protein 5.6 g/dL (6.3-8.2)
[2020-05-07] MEDS ORDERED: FLUTICASONE 50MCG/SPRAY NASAL 16GM EA NOSTRIL PRN (08:01)
[2020-05-07] MEDS ORDERED: ALBUTEROL NEBULIZED 2.5 MG/3 ML INHALATION PRN (08:01)
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
[2020-05-07] MEDS ORDERED: HYDROcodone/APAP 10-325MG 1 EACH TAB PO PRN (08:28)
[2020-05-07] MEDS: levETIRAcetam 500 MG TAB PO SCH ×2 (08:36→20:29)
[2020-05-07] MEDS: CHOLECALCIFEROL 1,000 UNIT TAB PO SCH (08:36)
[2020-05-07] MEDS: METOPROLOL SUCCINATE (ER) 25 MG TAB.ER.24H PO SCH (08:37)
[2020-05-07] MEDS: LORATADINE 10 MG TAB PO SCH (08:37)
[2020-05-07] MEDS: DULoxetine HCL 60 MG CAPSULE.DR PO SCH (08:37)
[2020-05-07] MEDS: ATORVASTATIN 20 MG TAB PO SCH (08:37)
[2020-05-07] MEDS: HYDROcodone/APAP 10-325MG 1 EACH TAB PO PRN ×3 (08:45→23:36)
[2020-05-07 08:53] LABS: INR 2.4 (<1.2); Prothrombin Time 22.9 sec (9.0-12.0)
[2020-05-07] MEDS ORDERED: PANTOPRAZOLE 40 MG TABLET PO SCH (09:00)
[2020-05-07] MEDS ORDERED: PANTOPRAZOLE 40 MG/10 ML VIAL IV SCH (09:00)
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
[2020-05-07] MEDS: SODIUM CHLORIDE 0.9% 1,000 ML IV SCH ×2 (11:40→20:30)
[2020-05-07] MEDS: IPRATROPIUM 0.5 MG/2.5 ML NEBU INHALATION SCH ×3 (12:09→19:10)
--- NOTE | 2020-05-07 14:04 | CONS ---
CONSULTATION CHIEF COMPLAINT: Elevated troponin. Fabiola is a 60-year-old lady with history of opiate substance abuse, prior CVA, confusional state, who is admitted to the hospital apparently with mild encephalopathy and swelling in the right wrist and pain in the right wrist. She apparently fell at home and fractured her wrist. Cardiology has been consulted because her troponins are mildly elevated. She does not have chest pain, difficulty in breathing, leg edema, PND or orthopnea. PAST MEDICAL HISTORY: Significant for coronary artery disease, paroxysmal atrial fibrillation, CVA, hypertension, dyslipidemia, pneumonia, seizure disorder. MEDICATIONS: Medications at home included Keppra, Coumadin, Seroquel, Protonix, Toprol, Claritin, Cymbalta, Lipitor, albuterol. ALLERGIES: LEVAQUIN. FAMILY HISTORY: Negative for premature coronary artery disease. SOCIAL HISTORY: Significant for smoking. There is no history of EtOH abuse. There is history of marijuana abuse. EXAM: Comfortable at rest. Vital signs are stable. Chest exam reveals good air entry bilaterally. Heart exam reveals first and second heart sounds. No gallop. Abdomen is soft. Exam of extremities did not reveal any edema. Peripheral pulses are felt. LAB: Show that the hemoglobin is 12.7. INR is 2.4. Troponins are at 0.1, 0.1 and 0.1. EKG shows sinus rhythm with changes of left ventricular hypertrophy. She had an echo 2 weeks ago that showed normal LV function. ASSESSMENT: 1. Elevated troponin of unclear clinical significance in a patient who does not have chest pain or shortness of breath. The patient did not have a myocardial infarction. I am going to obtain a 2D echo to assess her wall motion and left ventricular function and if these looks normal, no further workup is needed at this time. We can consider an outpatient stress test on her. 2. History of paroxysmal atrial fibrillation, currently in sinus rhythm. On Coumadin. Maintain an INR of 2-2.5. 3. Dyslipidemia. MMODL / IJN: [id number] /
[2020-05-07] MEDS: WARFARIN 2.5 MG TAB PO SCH (17:56)
[2020-05-07] MEDS: FORMOTEROL FUMARATE 20 MCG/2 ML NEBU INHALATION SCH (19:10)
[2020-05-07] MEDS: QUEtiapine 100 MG TAB PO SCH (20:29)
[2020-05-08] MEDS: HYDROcodone/APAP 10-325MG 1 EACH TAB PO PRN ×3 (05:36→19:58)
[2020-05-08] MEDS: FORMOTEROL FUMARATE 20 MCG/2 ML NEBU INHALATION SCH ×2 (07:27→19:23)
[2020-05-08] MEDS: IPRATROPIUM 0.5 MG/2.5 ML NEBU INHALATION SCH ×4 (07:27→19:23)
[2020-05-08 08:11] LABS: INR 2.9 (<1.2); Prothrombin Time 28.7 sec (9.0-12.0)
[2020-05-08] MEDS: levETIRAcetam 500 MG TAB PO SCH ×2 (08:40→19:59)
[2020-05-08] MEDS: DULoxetine HCL 60 MG CAPSULE.DR PO SCH (08:40)
[2020-05-08] MEDS: ATORVASTATIN 20 MG TAB PO SCH (08:40)
[2020-05-08] MEDS: CHOLECALCIFEROL 1,000 UNIT TAB PO SCH (08:40)
[2020-05-08] MEDS: LORATADINE 10 MG TAB PO SCH (08:40)
[2020-05-08] MEDS: METOPROLOL SUCCINATE (ER) 25 MG TAB.ER.24H PO SCH (08:41)
[2020-05-08] MEDS: PANTOPRAZOLE 40 MG TABLET PO SCH (08:41)
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
--- NOTE | 2020-05-08 10:36 | P.PN ---
Subjective Progress Note Date: 05/08/20 Principal diagnosis: Patient admitted with right wrist fracture secondary to fall, acute exacerbation chronic COPD history of recent stroke tPA 1 month ago, patient has electrolyte imbalance hyponatremia hypomagnesemia hypokalemia, and elevated troponins Patient's awake alert vital signs are stable patient is afebrile currently getting cast applied to right wrist Objective - Vital Signs Vital signs: Vital Signs Temp 97.9 F 05/08/20 04:00 Pulse 71 05/08/20 04:00 Resp 16 05/08/20 04:00 BP 93/55 05/08/20 04:00 Pulse Ox 94 L 05/08/20 04:00 Intake & Output 05/07/20 05/08/20 05/08/20 18:59 06:59 18:59 Intake Total 360 450 240 Balance 360 450 240 Weight 46.5 kg Intake: Oral 360 450 240 Other: Voiding Method Toilet Bedside Commode # Voids 1 - Exam General: [Patient awake, alert and oriented times 3. Patient in no acute distress.] HEENT: [PERRL. EOMI. No pharyngeal erythema or exudate.] Neck: [No adenopathy.] Cardiac: [Heart regular in rate and rhythm. No S3. No S4. No clicks, rubs. No murmur.] Lungs: [Clear to auscultation bilaterally.] Abdomen: [No mass. No organomegaly. Bowel sounds presnt and normoactive in all 4 quadrants.] Extremes: [No edema no cyanosis no claudication normal pulses] : Normal female genitalia Musculoskeletal: Right wrist fracture none displaced Skin: [No rash.] Neurologic: [No lateralizing deficits. CN II - XII grossly intact.] Lymphatic: [No adenopathy.] - Labs CBC & Chem 7: 05/07/20 06:26 05/07/20 06:26 Labs: Abnormal Lab Results - Last 24 Hours (Table) 05/08/20 Range/Units 07:21 PT 28.7 H (9.0-12.0) sec INR 2.9 H (<1.2) Assessment and Plan Assessment: Acute exacerbation chronic COPD (1) Elevated troponin Current Visit: Yes Status: Acute Code(s): R79.89 - OTHER SPECIFIED ABNORMAL FINDINGS OF BLOOD CHEMISTRY SNOMED Code(s): 230256121 (2) Hypokalemia Current Visit: Yes Status: Acute Code(s): E87.6 - HYPOKALEMIA SNOMED Code(s): 02646817 (3) Hyponatremia Current Visit: Yes Status: Acute Code(s): E87.1 - HYPO-OSMOLALITY AND HYPONATREMIA SNOMED Code(s): 06537818 (4) Mental status change Current Visit: Yes Status: Acute Code(s): R41.82 - ALTERED MENTAL STATUS, UNSPECIFIED SNOMED Code(s): 611187024 (5) Ataxia Current Visit: No Status: Acute Code(s): R27.0 - ATAXIA, UNSPECIFIED SNOMED Code(s): 32090217 (6) Atrial fibrillation Current Visit: No Status: Acute Code(s): I48.91 - UNSPECIFIED ATRIAL FIBRILLATION SNOMED Code(s): 02704713 (7) COPD exacerbation Current Visit: No Status: Acute Code(s): J44.1 - CHRONIC OBSTRUCTIVE PULMONARY DISEASE W (ACUTE) EXACERBATION SNOMED Code(s): 701784099 Plan: Patient admitted to the hospital Acute exacerbation of chronic COPD Correction of sodium potassium and other metabolic abnormalities Cardiology consultation for abnormal troponins Orthopedic consultation for nondisplaced fracture right wrist Suspect ongoing substance abuse Time with Patient: Greater than 30
--- NOTE | 2020-05-08 10:57 | P.PN ---
Progress Note - Text Progress Note Date: 05/08/20 Patient is seen and examined today at bedside. She is continuing her management for her elevated troponins and electric changes as per medicine. She says her wrist is sore but comfortable and manageable. She denies any new numbness tingling in her hands or fingers. On exam there is some mild swelling. Her thumb at her compartment are soft. She has soreness at her wrist. Her splint is intact. Assessment and plan distal radius styloid fracture minimally displaced status post fall acute, Right wrist pain Elevated troponins Elected late imbalance In regards to her right distal radius fracture, I felt that she would do well with conservative treatment and casting. Today at bedside we used a ring remover and I had to cut her ring off and remove the ring at bedside. She tolerated this well. I placed the ring 100 direct visualization in her belongings and she will keep the ring. I removed the splint she has no skin breakdown her apartment's are soft I placed her in a well-padded well molded short arm thumb spica cast. She had good position was molded and well-padded and she tolerated casting well. I think she will do well with casting and we'll likely keep this cast intact for next 2-3 weeks at that point we can consider changing the cast but she'll likely need immobilization for approximately 6 weeks' time I discussed this with her and answered her questions. Is okay from an orthopedic standpoint for her to be discharged when she is stable from medicine and she can follow-up with our office in approximately 1 week's time for recheck evaluation and repeat x-rays of her wrist. She is given appropriate cast care instructions she should keep to keep cast clean and dry. She should not get the cast wet. She should not submerge cast. She should not stick anything down the cast. She'll keep her right hand elevated.
[2020-05-08 11:05] LABS: Basophils # (A) 0.1 k/uL (0-0.2); Basophils % (A) 1 %; Eosinophils # (A) 0.2 k/uL (0-0.7); Eosinophils % (A) 2 %; HCT 37.5 % (34.0-46.0); Hypochromasia Slight; Lymphocytes # (A) 2.9 k/uL (1.0-4.8); Lymphocytes % (A) 30 %; MCH 28.7 pg (25.0-35.0); MCHC 32.1 g/dL (31.0-37.0); MCV 89.5 fL (80.0-100.0); Mean Platelet Volume 7.1; Monocytes # (A) 0.6 k/uL (0-1.0); Monocytes % (A) 6 %; Neutrophils # (A) 5.8 k/uL (1.3-7.7); Neutrophils % (A) 60 %; Platelet Count 186 k/uL (150-450); RBC 4.19 m/uL (3.80-5.40); RDW 15.4 % (11.5-15.5); WBC 9.7 k/uL (3.8-10.6)
[2020-05-08 11:16] LABS: ALT 9 U/L (4-34); AST 24 U/L (14-36); African American GFR (CKD) >90 (>60 ml/min/1.73 sqM); Albumin 2.5 g/dL (3.5-5.0); Alkaline Phosphatase 51 U/L (38-126); Anion Gap 1 mmol/L; Blood Urea Nitrogen 8 mg/dL (7-17); Calcium 7.3 mg/dL (8.4-10.2); Carbon Dioxide 28 mmol/L (22-30); Chloride 108 mmol/L (98-107); Glucose 82 mg/dL (74-99); Non-African American GFR(CKD) >90 (>60 ml/min/1.73 sqM); Potassium 4.1 mmol/L (3.5-5.1); Sodium 137 mmol/L (137-145); Total Bilirubin 0.5 mg/dL (0.2-1.3); Total Protein 4.7 g/dL (6.3-8.2)
[2020-05-08] MEDS: methylPREDNISolone SOD SUCCI 40 MG/ML 1 ML VIAL IV SCH ×2 (11:38→19:59)
[2020-05-08 12:32] VITALS: BMI 15.5
--- NOTE | 2020-05-08 13:00 | ECHOF ---
Referral Reason:LV function and wall motion MEASUREMENTS -------- HEIGHT: 172.7 cm WEIGHT: 69.9 kg BP: IVSd: 1.3 cm (0.6 - 1.1) LVIDd: 3.7 cm (3.9 - 5.3) LVPWd: 1.3 cm (0.6 - 1.1) IVSs: 1.5 cm LVIDs: 2.8 cm LVPWs: 1.4 cm FINDINGS -------- Sinus rhythm. Echo Done 04/18/20: Limited study for LV function. Overall left ventricular systolic function is low-normal with, an EF between 50 - 55 %. CONCLUSIONS -------- 1. Echo Done 04/18/20: Limited study for LV function. 2. Overall left ventricular systolic function is low-normal with, an EF between 50 - 55 %. LABORATORY MACHINIST: Rosemarie Hernandez RDCS
--- NOTE | 2020-05-08 14:39 | PN ---
PROGRESS NOTE Fabiola was admitted to the hospital having had a fall at home. She has elevated troponin of unclear clinical significance. I will review the echo that was done yesterday. She has history of paroxysmal atrial fibrillation and was on Coumadin. INR is 2.9. EXAM: Comfortable at rest. Afebrile, heart rate is 77 beats per minute, blood pressure is 94/62, respiratory rate is 18, O2 saturation is 96% on 2 L. There is no jugular venous distention. Chest exam reveals good air entry bilaterally. Heart exam reveals first and second heart sounds. No gallop. Exam of extremities did not reveal any edema. Peripheral pulses are felt. MEDICATIONS: The patient is on Lipitor 20 daily, Claritin, Toprol-XL, Coumadin that pharmacy is dosing. LABS: Labs show that the hemoglobin is 12, platelet count is 186, potassium is 4.1. Creatinine is 0.5. ASSESSMENT: 1. Elevated troponin of unclear clinical significance. 2. Paroxysmal atrial fibrillation. PLAN: I am going to review the echocardiogram on her. MMODL / IJN: [id number] /
[2020-05-08] MEDS: SODIUM CHLORIDE 0.9% 1,000 ML IV SCH (15:37)
[2020-05-08] MEDS: WARFARIN 2.5 MG TAB PO SCH (18:50)
[2020-05-08] MEDS: QUEtiapine 100 MG TAB PO SCH (19:59)
[2020-05-09] MEDS: HYDROcodone/APAP 10-325MG 1 EACH TAB PO PRN ×3 (03:46→20:55)
[2020-05-09] MEDS: SODIUM CHLORIDE 0.9% 1,000 ML IV SCH ×2 (03:48→15:38)
[2020-05-09 06:14] LABS: Glucose,Whole Blood 133 mg/dL (75-99)
[2020-05-09] MEDS: FORMOTEROL FUMARATE 20 MCG/2 ML NEBU INHALATION SCH ×2 (07:23→19:19)
[2020-05-09] MEDS: IPRATROPIUM 0.5 MG/2.5 ML NEBU INHALATION SCH ×4 (07:23→19:19)
--- NOTE | 2020-05-09 07:50 | P.PN ---
Subjective Progress Note Date: 05/09/20 Principal diagnosis: Wrist fracture involving distal end of the radius Acute COPD exacerbation History of stroke status post TPA month ago Electrolyte imbalance with hyponatremia and hypomagnesemia and hypokalemia Elevated troponin 05/09/2020, patient seen and evaluated examined respiratory status is improved, generalized weakness is present, covert 19 however still pending patient remains in contact in respiratory isolation, will continue current plan of care with IV steroids and bronchodilators and follow This is a 60-year-old female well-known to me from prior history of severe COPD, patient was recently hospitalized with the strokelike features subsequently imp roved when discharged she did get TPA, she came into the hospital with left wrist pain after a fall, also has been going on shortness of breath, some intermittent confusion is present as well, no history of chest pain no history of fever or chills patient was found to have leukocytosis with hypo-kalemia hyponatremia and hypomagnesemia, patient also have ongoing issues associated with substance use, and elevated troponins Objective - Vital Signs Vital signs: Vital Signs Temp 98.7 F 05/09/20 04:00 Pulse 72 05/09/20 04:00 Resp 16 05/09/20 04:00 BP 120/65 05/09/20 04:00 Pulse Ox 96 05/09/20 04:00 Intake & Output 05/08/20 05/09/20 05/09/20 18:59 06:59 18:59 Intake Total 480 Balance 480 Weight 46.5 kg 49 kg Intake: Oral 480 Other: Voiding Method Bedpan # Voids 2 1 - Exam Constitutional General appearance: average body habitus, cooperative, disheveled - EENT Eyes: EOMI, PERRLA ENT: normal oropharynx Ears: bilateral: normal - Neck Neck: normal ROM Carotids: bilateral: upstroke normal Thyroid: bilateral: normal size - Respiratory Respiratory: bilateral: wheezing (An expiratory), prolonged expiration - Cardiovascular Rhythm: regular Heart sounds: normal: S1, S2 - Gastrointestinal General gastrointestinal: normal bowel sounds - Integumentary Integumentary: decreased turgor - Neurologic Neurologic: CNII-XII intact - Musculoskeletal Musculoskeletal: gait normal, generalized weakness, strength equal bilaterally - Psychiatric Psychiatric: A&O x's 3 - Labs CBC & Chem 7: 05/08/20 10:44 05/08/20 10:44 Labs: Abnormal Lab Results - Last 24 Hours (Table) 05/08/20 05/08/20 05/09/20 Range/Units 07:21 10:44 06:12 PT 28.7 H (9.0-12.0) sec INR 2.9 H (<1.2) Chloride 108 H (98-107) mmol/L POC Glucose (mg/dL) 133 H (75-99) mg/dL Calcium 7.3 L (8.4-10.2) mg/dL Total Protein 4.7 L (6.3-8.2) g/dL Albumin 2.5 L (3.5-5.0) g/dL Assessment and Plan Assessment: Wrist fracture involving distal end of the radius Acute COPD exacerbation History of stroke status post TPA month ago Electrolyte imbalance with hyponatremia and hypomagnesemia and hypokalemia Elevated troponin Plan: Continue bronchodilator IV steroids Deep breathing exercise incentive spirometry Replace electrolytes as per protocol Cardiovascular services following for elevated troponins Time with Patient: Greater than 30
[2020-05-09] MEDS: CHOLECALCIFEROL 1,000 UNIT TAB PO SCH (09:24)
[2020-05-09] MEDS: LORATADINE 10 MG TAB PO SCH (09:24)
[2020-05-09] MEDS: ATORVASTATIN 20 MG TAB PO SCH (09:24)
[2020-05-09] MEDS: PANTOPRAZOLE 40 MG TABLET PO SCH (09:24)
[2020-05-09] MEDS: METOPROLOL SUCCINATE (ER) 25 MG TAB.ER.24H PO SCH (09:24)
[2020-05-09] MEDS: DULoxetine HCL 60 MG CAPSULE.DR PO SCH (09:24)
[2020-05-09] MEDS: levETIRAcetam 500 MG TAB PO SCH ×2 (09:24→20:55)
[2020-05-09] MEDS: methylPREDNISolone SOD SUCCI 40 MG/ML 1 ML VIAL IV SCH ×2 (09:25→20:56)
--- NOTE | 2020-05-09 10:51 | P.PN ---
Subjective Progress Note Date: 05/09/20 Patient admitted with right wrist fracture secondary to fall, acute exacerbation chronic COPD history of recent stroke tPA 1 month ago, patient has electrolyte imbalance hyponatremia hypomagnesemia hypokalemia, and elevated troponins Patient's awake alert vital signs are stable patient is afebrile currently getting cast applied to right wrist 05/09/2020 Patient reports she had seizures 2 days ago ,prior to admission, with right-sided weakness in her right upper and lower extremities accompanied b y fluctuating numbness / weakness, and sustained a fall. Currently reports numbness in her right foot and right lower leg. Evaluated by orthopedics, pulmonary, cardiology with recommendations noted and appreciated. No further seizure activity reported. Reports she last saw her own neurologist 2 months ago. Objective - Vital Signs Vital signs: Vital Signs Temp 98.7 F 05/09/20 04:00 Pulse 72 05/09/20 04:00 Resp 16 05/09/20 04:00 BP 120/65 05/09/20 04:00 Pulse Ox 96 05/09/20 04:00 Intake & Output 05/08/20 05/09/20 05/09/20 18:59 06:59 18:59 Intake Total 480 Balance 480 Weight 46.5 kg 49 kg Intake: Oral 480 Other: Voiding Method Bedpan # Voids 2 1 - Exam General: [Patient sitting up in bed, awake, alert and oriented times 3, no acute distress.] HEENT: [PERRL. EOMI. No pharyngeal erythema or exudate.] Neck: [No adenopathy.] Cardiac: [Heart regular in rate and rhythm. No S3. No S4. No clicks, rubs. No murmur.] Lungs: [Clear to auscultation bilaterally.] Abdomen: [No mass. No organomegaly. Bowel sounds presnt and normoactive in all 4 quadrants.] Extremes: [No edema no cyanosis no claudication normal pulses] Musculoskeletal: Right wrist fracture,casted Skin: [Warm and dry ,No rash.] Neurologic: [No lateralizing deficits. CN II - XII grossly intact.] - Labs CBC & Chem 7: 05/08/20 10:44 05/08/20 10:44 Labs: Abnormal Lab Results - Last 24 Hours (Table) 05/08/20 05/09/20 Range/Units 10:44 06:12 Chloride 108 H (98-107) mmol/L POC Glucose (mg/dL) 133 H (75-99) mg/dL Calcium 7.3 L (8.4-10.2) mg/dL Total Protein 4.7 L (6.3-8.2) g/dL Albumin 2.5 L (3.5-5.0) g/dL Assessment and Plan Assessment: (1) Elevated troponin Current Visit: Yes Status: Acute Code(s): R79.89 - OTHER SPECIFIED ABNORMAL FINDINGS OF BLOOD CHEMISTRY SNOMED Code(s): 070220532 (2) Hypokalemia Current Visit: Yes Status: Acute Code(s): E87.6 - HYPOKALEMIA SNOMED Code(s): 69580577 (3) Hyponatremia Current Visit: Yes Status: Acute Code(s): E87.1 - HYPO-OSMOLALITY AND HYPONATREMIA SNOMED Code(s): 09443218 (4) Mental status change Current Visit: Yes Status: Acute Code(s): R41.82 - ALTERED MENTAL STATUS, UNSPECIFIED SNOMED Code(s): 415885871 (5) Ataxia Current Visit: No Status: Acute Code(s): R27.0 - ATAXIA, UNSPECIFIED SNOMED Code(s): 02275801 (6) Atrial fibrillation Current Visit: No Status: Acute Code(s): I48.91 - UNSPECIFIED ATRIAL FIBRILLATION SNOMED Code(s): 41979817 (7) COPD exacerbation Current Visit: No Status: Acute Code(s): J44.1 - CHRONIC OBSTRUCTIVE PULMONARY DISEASE W (ACUTE) EXACERBATION SNOMED Code(s): 741135222 Plan: Continue current medication regime ,monitoring and symptomatic treatment. Seizure precautions. Neurology consulted. Follow closely with multiple consults. The impression and plan of care has been dictated as directed. : I performed a history and examination of this patient, discussed the same with the dictator. I agree with the dictator's note ,documented as a scribe. Any additional findings or plans will be noted.
--- NOTE | 2020-05-09 12:07 | P.PN ---
Subjective Progress Note Date: 05/09/20 Principal diagnosis: Abnormal troponin and abnormal d-dimer This is a 60-year-old female patient was admitted to the hospital after she fell at home. We involved in her care because of abnormal troponin. Patient was seen this morning. She remains asymptomatic from a perivascular standpoint overview. She denies any chest pain or chest discomfort or shortness of breath. No dizziness or lightheadedness or syncope. The d-dimer was elevated and no VQ scan or CT a was ordered. I am going to obtain a VQ scan. The patient does have history of paroxysmal atrial fibrillation and she is on oral anticoagulation was Coumadin. If the VQ scan did not show any evidence of PE we will consider doing a stress test to rule out severe underlying coronary artery disease. Objective - Vital Signs Vital signs: Vital Signs Temp 98.4 F 05/09/20 09:00 Pulse 87 05/09/20 09:00 Resp 18 05/09/20 09:00 BP 103/58 05/09/20 11:42 Pulse Ox 98 05/09/20 09:00 Intake & Output 05/08/20 05/09/20 05/09/20 18:59 06:59 18:59 Intake Total 480 225 Output Total 2000 Balance 480 -1775 Weight 46.5 kg 49 kg Intake: Intake, IV Titration 225 Amount Sodium Chloride 0.9% 1, 225 000 ml @ 75 mls/hr IV . [id number] [facility] Rx#:[id number] Oral 480 Output: Urine 2000 Other: Voiding Method Bedpan # Voids 2 1 - Constitutional General appearance: Present: no acute distress - Respiratory Respiratory: bilateral: CTA - Cardiovascular Rhythm: regular Heart sounds: normal: S1, S2 - Labs CBC & Chem 7: 05/08/20 10:44 05/08/20 10:44 Labs: Abnormal Lab Results - Last 24 Hours (Table) 05/09/20 Range/Units 06:12 POC Glucose (mg/dL) 133 H (75-99) mg/dL Assessment and Plan Assessment: Assessment #1 status post fall at home #2 paroxysmal atrial fibrillation #3 elevated d-dimer #4 elevated troponin Plan #1 obtain a VQ scan to rule out PE. #2 follow-up with the patient
[2020-05-09 12:09] LABS: Glucose,Whole Blood 214 mg/dL (75-99)
--- NOTE | 2020-05-09 12:47 | CDI ---
Documentation Clarification Form Date: 05/09/2020 12:15:22 PM From: Kelly River RN, CCDS Admit Date: 05/06/2020 09:54:00 PM Patient Name: Fabiola Giraldo Visit Number: [id number] Discharge Date: ATTENTION: The Clinical Documentation Specialists (CDI) and [facility] Coding Staff appreciate your assistance in clarifying documentation. Please respond to the clarification below the line at the bottom and electronically sign. The CDI & [facility] Coding staff will review the response and follow-up if needed. Please note: Queries are made part of the Legal Health Record. If you have any questions, please contact the author of this message via ITS. Dr. Vidal Rubio Altered Mental Status was documented in the ED assessment, H&P and subsequent progress notes. Please provide further specificity of mental status change. History/Risk Factors: CVA, Atril Fibrillation, Coronary Artery Disease, Hypertension Seizure, Current every day smoker Clinical Indicators: 60-year-old female present on 05/06 for evaluation of right wrist pain, episodes of intermittent confusion. 05/06 Labs: WBC 19.3, CR 1.13, Sodium 128, Potassium 3.1, Magnesium 1.5,Troponin is elevated at 0.13. UA: Leukocyte Esterase-small, UDS positive for tricyclic antidepressants, Marijuana Chest X Ray: No acute cardiopulmonary disease. CT Brain: stable subcortical white matter changes, likely chronic in nature Treatment: .9 ns 1,000 ml bolus 05/06 than 75 mls hr til 8/ K-dur 40 meq po x1 05/06 Magnesium sulfate 1 gm ivpb x1 05/06 In your professional opinion, please clarify the etiology of the Altered Mental Status, if known. Metabolic encephalopathy Other condition (please specify) Unable to determine (Last Revision: January 2018) MTDD
[2020-05-09 16:49] LABS: Glucose,Whole Blood 162 mg/dL (75-99)
--- NOTE | 2020-05-09 18:15 | NM ---
EXAMINATION TYPE: NM pul vent and perfuse DATE OF EXAM: 05/09/2020 COMPARISON: NONE HISTORY: Short of breath. Elevated d-dimer. TECHNIQUE: Utilizing inhalation of 40.9 mCi Tc 99m DTPA aerosol and intravenous injection of 5.33 mC i of Tc 99m MAA, ventilation and perfusion images are acquired post injection in multiple projections . FINDINGS: The ventilation images show very patchy uptake of tracer in both lungs. This is consistent with sever e airway disease. There are multiple patchy subsegmental peripheral perfusion defects in both lungs. This is worse in the lower lobes. Ventilation abnormalities appear worse than the perfusion abnormali ties. IMPRESSION: Extensive airway disease. Multiple segmental and subsegmental perfusion defects are matching the vent ilation abnormalities. There is intermediate probability of pulmonary embolism.
[2020-05-09] MEDS: WARFARIN 2.5 MG TAB PO SCH (18:39)
[2020-05-09 20:00] LABS: Prothrombin Time 64.7 sec (9.0-12.0)
[2020-05-09 20:17] LABS: INR 6.4 (<1.2)
[2020-05-09 20:23] LABS: Glucose,Whole Blood 329 mg/dL (75-99)
[2020-05-09] MEDS: QUEtiapine 100 MG TAB PO SCH (20:55)
[2020-05-09] MEDS: INSULIN ASPART (NovoLOG) 100 UNIT/ML VIAL SQ SCH (20:55)
[2020-05-09 21:30] LABS: African American GFR (CKD) >90 (>60 ml/min/1.73 sqM); Anion Gap 5 mmol/L; Blood Urea Nitrogen 11 mg/dL (7-17); Calcium 7.8 mg/dL (8.4-10.2); Carbon Dioxide 26 mmol/L (22-30); Chloride 104 mmol/L (98-107); Glucose 205 mg/dL (74-99); Magnesium 1.4 mg/dL (1.6-2.3); Non-African American GFR(CKD) >90 (>60 ml/min/1.73 sqM); Potassium 4.3 mmol/L (3.5-5.1); Sodium 135 mmol/L (137-145)
[2020-05-09 22:00] LABS: Prothrombin Time 63.3 sec (9.0-12.0)
[2020-05-09 22:11] LABS: INR 6.2 (<1.2)
[2020-05-10] MEDS: SODIUM CHLORIDE 0.9% 1,000 ML IV SCH ×2 (06:21→19:13)
[2020-05-10 06:22] LABS: Glucose,Whole Blood 122 mg/dL (75-99)
[2020-05-10] MEDS: INSULIN ASPART (NovoLOG) 100 UNIT/ML VIAL SQ SCH ×4 (06:22→20:58)
[2020-05-10 06:43] LABS: Basophils % (A) 0 %; Eosinophils # (A) 0.1 k/uL (0-0.7); Eosinophils % (A) 1 %; HCT 35.1 % (34.0-46.0); Lymphocytes # (A) 1.1 k/uL (1.0-4.8); Lymphocytes % (A) 10 %; MCH 27.9 pg (25.0-35.0); MCHC 31.4 g/dL (31.0-37.0); Mean Platelet Volume 7.8; Monocytes # (A) 0.4 k/uL (0-1.0); Monocytes % (A) 4 %; Neutrophils # (A) 10.2 k/uL (1.3-7.7); Neutrophils % (A) 86 %; Platelet Count 205 k/uL (150-450); RBC 3.94 m/uL (3.80-5.40); RDW 15.6 % (11.5-15.5); WBC 11.9 k/uL (3.8-10.6)
[2020-05-10 06:50] LABS: African American GFR (CKD) >90 (>60 ml/min/1.73 sqM); Anion Gap 1 mmol/L; Blood Urea Nitrogen 11 mg/dL (7-17); Calcium 7.5 mg/dL (8.4-10.2); Carbon Dioxide 28 mmol/L (22-30); Chloride 108 mmol/L (98-107); Glucose 116 mg/dL (74-99); Non-African American GFR(CKD) >90 (>60 ml/min/1.73 sqM); Potassium 4.5 mmol/L (3.5-5.1); Sodium 137 mmol/L (137-145)
[2020-05-10 06:54] LABS: Prothrombin Time 85.1 sec (9.0-12.0)
[2020-05-10 07:04] LABS: INR 8.2 (<1.2)
[2020-05-10] MEDS ORDERED: PHYTONADIONE ORAL 5 MG/5 ML ORAL.SYRG PO STA (07:10)
[2020-05-10] MEDS: IPRATROPIUM 0.5 MG/2.5 ML NEBU INHALATION SCH ×4 (07:44→19:55)
[2020-05-10] MEDS: FORMOTEROL FUMARATE 20 MCG/2 ML NEBU INHALATION SCH ×2 (07:44→19:55)
--- NOTE | 2020-05-10 08:21 | P.PN ---
Subjective Progress Note Date: 05/10/20 Principal diagnosis: Wrist fracture involving distal end of the radius Acute COPD exacerbation History of stroke status post TPA month ago Electrolyte imbalance with hyponatremia and hypomagnesemia and hypokalemia Elevated troponin 05/10/2020, patient seen eval examined during the rounds labs reviewed medications reviewed, VQ scan was done last night indeterminate, mismatch was not seen mass effect likely due to severe COPD, INR is 8.2, vitamin K single dose 10 mg has been given 05/09/2020, patient seen and evaluated examined respiratory status is improved, generalized weakness is present, covert 19 however still pending patient remains in contact in respiratory isolation, will continue current plan of care with IV steroids and bronchodilators and follow This is a 60-year-old female well-known to me from prior history of severe COPD, patient was recently hospitalized with the strokelike features subsequently improved when discharged she did get TPA, she came into the hospital with left wrist pain after a fall, also has been going on shortness of breath, some intermittent confusion is present as well, no history of chest pain no history of fever or chills patient was found to have leukocytosis with hypo-kalemia hyponatremia and hypomagnesemia, patient also have ongoing issues associated with substance use, and elevated troponins Objective - Vital Signs Vital signs: Vital Signs Temp 98.4 F 05/10/20 04:00 Pulse 78 05/10/20 04:00 Resp 18 05/10/20 04:00 BP 108/64 05/10/20 04:00 Pulse Ox 95 05/10/20 04:00 Intake & Output 05/09/20 05/10/20 05/10/20 18:59 06:59 18:59 Intake Total 911 600 Output Total 1999 Balance -1089 600 Weight 51.5 kg Intake: Intake, IV Titration 675 600 Amount Sodium Chloride 0.9% 1, 675 600 000 ml @ 75 mls/hr IV . [id number] [facility] Rx#:[id number] Oral 236 Output: Urine 1999 Other: Voiding Method Bedside Commode # Voids 2 - Exam Constitutional General appearance: average body habitus, cooperative, disheveled - EENT Eyes: EOMI, PERRLA ENT: normal oropharynx Ears: bilateral: normal - Neck Neck: normal ROM Carotids: bilateral: upstroke normal Thyroid: bilateral: normal size - Respiratory Respiratory: bilateral: wheezing (An expiratory), prolonged expiration - Cardiovascular Rhythm: regular Heart sounds: normal: S1, S2 - Gastrointestinal General gastrointestinal: normal bowel sounds - Integumentary Integumentary: decreased turgor - Neurologic Neurologic: CNII-XII intact - Musculoskeletal Musculoskeletal: gait normal, generalized weakness, strength equal bilaterally - Psychiatric Psychiatric: A&O x's 3 - Labs CBC & Chem 7: 05/10/20 06:21 05/10/20 06:21 Labs: Abnormal Lab Results - Last 24 Hours (Table) 05/09/20 05/09/20 05/09/20 Range/Units 12:08 16:48 19:29 WBC (3.8-10.6) k/uL Hgb (11.4-16.0) gm/dL RDW (11.5-15.5) % Neutrophils # (1.3-7.7) k/uL PT 64.7 H (9.0-12.0) sec INR 6.4 H* (<1.2) Sodium (137-145) mmol/L Chloride (98-107) mmol/L Creatinine (0.52-1.04) mg/dL Glucose (74-99) mg/dL POC Glucose (mg/dL) 214 H 162 H (75-99) mg/dL Calcium (8.4-10.2) mg/dL Magnesium (1.6-2.3) mg/dL 05/09/20 05/09/20 05/09/20 Range/Units 20:21 20:57 20:57 WBC (3.8-10.6) k/uL Hgb (11.4-16.0) gm/dL RDW (11.5-15.5) % Neutrophils # (1.3-7.7) k/uL PT 63.3 H (9.0-12.0) sec INR 6.2 H* (<1.2) Sodium 135 L (137-145) mmol/L Chloride (98-107) mmol/L Creatinine 0.51 L (0.52-1.04) mg/dL Glucose 205 H (74-99) mg/dL POC Glucose (mg/dL) 329 H (75-99) mg/dL Calcium 7.8 L (8.4-10.2) mg/dL Magnesium 1.4 L (1.6-2.3) mg/dL 05/10/20 05/10/20 05/10/20 Range/Units 06:14 06:21 06:21 WBC 11.9 H (3.8-10.6) k/uL Hgb 11.0 L (11.4-16.0) gm/dL RDW 15.6 H (11.5-15.5) % Neutrophils # 10.2 H (1.3-7.7) k/uL PT (9.0-12.0) sec INR (<1.2) Sodium (137-145) mmol/L Chloride 108 H (98-107) mmol/L Creatinine 0.50 L (0.52-1.04) mg/dL Glucose 116 H (74-99) mg/dL POC Glucose (mg/dL) 122 H (75-99) mg/dL Calcium 7.5 L (8.4-10.2) mg/dL Magnesium (1.6-2.3) mg/dL 05/10/20 Range/Units 06:21 WBC (3.8-10.6) k/uL Hgb (11.4-16.0) gm/dL RDW (11.5-15.5) % Neutrophils # (1.3-7.7) k/uL PT 85.1 H (9.0-12.0) sec INR 8.2 H* (<1.2) Sodium (137-145) mmol/L Chloride (98-107) mmol/L Creatinine (0.52-1.04) mg/dL Glucose (74-99) mg/dL POC Glucose (mg/dL) (75-99) mg/dL Calcium (8.4-10.2) mg/dL Magnesium (1.6-2.3) mg/dL Assessment and Plan Assessment: Elevated INR/coagulopathy Wrist fracture involving distal end of the radius Acute COPD exacerbation History of stroke status post TPA month ago Electrolyte imbalance with hyponatremia and hypomagnesemia and hypokalemia Elevated troponin Plan: Monitor labs including PT/INR Continue bronchodilator IV steroids Deep breathing exercise incentive spirometry Replace electrolytes as per protocol Cardiovascular services following for elevated troponins Time with Patient: Greater than 30
[2020-05-10] MEDS: ATORVASTATIN 20 MG TAB PO SCH (08:30)
[2020-05-10] MEDS: METOPROLOL SUCCINATE (ER) 25 MG TAB.ER.24H PO SCH (08:30)
[2020-05-10] MEDS: levETIRAcetam 500 MG TAB PO SCH ×2 (08:30→20:11)
[2020-05-10] MEDS: CHOLECALCIFEROL 1,000 UNIT TAB PO SCH (08:30)
[2020-05-10] MEDS: LORATADINE 10 MG TAB PO SCH (08:30)
[2020-05-10] MEDS: DULoxetine HCL 60 MG CAPSULE.DR PO SCH (08:30)
[2020-05-10] MEDS: PANTOPRAZOLE 40 MG TABLET PO SCH (08:30)
[2020-05-10] MEDS: methylPREDNISolone SOD SUCCI 40 MG/ML 1 ML VIAL IV SCH ×2 (08:31→20:12)
[2020-05-10] MEDS ORDERED: Magnesium Replacement Protocol 1 EACH MISC MISCELLANE PRN ×2 (09:59→10:35)
--- NOTE | 2020-05-10 11:56 | P.PN ---
Subjective Progress Note Date: 05/10/20 Principal diagnosis: Abnormal troponin and abnormal d-dimer This is a 60-year-old female patient was admitted to the hospital after she fell at home. We involved in her care because of abnormal troponin. The patient remains asymptomatic from a cardiovascular standpoint of view without any symptoms of chest pain or chest discomfort or shortness of breath. Because of the abnormal d-dimer yesterday she underwent a VQ scan and that showed intermediate probably the for PE but at the same time her INR was elevated. She is unlikely to have a PE. The echo revealed normal LV function without any evidence of wall motion of the right is concerning for severe underlying coronary artery disease. Currently she is on Coumadin for anticoagulation as well as she is on beta dhara as well as statin. We'll continue conservative medical approach in the absence of any symptoms of chest pain or chest discomfort. She is in process of having an EEG. Objective - Vital Signs Vital signs: Vital Signs Temp 98.2 F 05/10/20 08:00 Pulse 78 05/10/20 08:00 Resp 16 05/10/20 08:00 BP 158/72 05/10/20 08:00 Pulse Ox 93 L 05/10/20 08:00 Intake & Output 05/09/20 05/10/20 05/10/20 18:59 06:59 18:59 Intake Total 911 600 180 Output Total 1999 Balance -1089 600 180 Weight 51.5 kg Intake: Intake, IV Titration 675 600 Amount Sodium Chloride 0.9% 1, 675 600 000 ml @ 75 mls/hr IV . [id number] [facility] Rx#:[id number] Oral 236 180 Output: Urine 1999 Other: Voiding Method Bedside Commode # Voids 2 - Constitutional General appearance: Present: no acute distress - Labs CBC & Chem 7: 05/10/20 06:21 05/10/20 06:21 Labs: Abnormal Lab Results - Last 24 Hours (Table) 05/09/20 05/09/20 05/09/20 Range/Units 12:08 16:48 19:29 WBC (3.8-10.6) k/uL Hgb (11.4-16.0) gm/dL RDW (11.5-15.5) % Neutrophils # (1.3-7.7) k/uL PT 64.7 H (9.0-12.0) sec INR 6.4 H* (<1.2) Sodium (137-145) mmol/L Chloride (98-107) mmol/L Creatinine (0.52-1.04) mg/dL Glucose (74-99) mg/dL POC Glucose (mg/dL) 214 H 162 H (75-99) mg/dL Calcium (8.4-10.2) mg/dL Magnesium (1.6-2.3) mg/dL 05/09/20 05/09/20 05/09/20 Range/Units 20:21 20:57 20:57 WBC (3.8-10.6) k/uL Hgb (11.4-16.0) gm/dL RDW (11.5-15.5) % Neutrophils # (1.3-7.7) k/uL PT 63.3 H (9.0-12.0) sec INR 6.2 H* (<1.2) Sodium 135 L (137-145) mmol/L Chloride (98-107) mmol/L Creatinine 0.51 L (0.52-1.04) mg/dL Glucose 205 H (74-99) mg/dL POC Glucose (mg/dL) 329 H (75-99) mg/dL Calcium 7.8 L (8.4-10.2) mg/dL Magnesium 1.4 L (1.6-2.3) mg/dL 05/10/20 05/10/20 05/10/20 Range/Units 06:14 06:21 06:21 WBC 11.9 H (3.8-10.6) k/uL Hgb 11.0 L (11.4-16.0) gm/dL RDW 15.6 H (11.5-15.5) % Neutrophils # 10.2 H (1.3-7.7) k/uL PT (9.0-12.0) sec INR (<1.2) Sodium (137-145) mmol/L Chloride 108 H (98-107) mmol/L Creatinine 0.50 L (0.52-1.04) mg/dL Glucose 116 H (74-99) mg/dL POC Glucose (mg/dL) 122 H (75-99) mg/dL Calcium 7.5 L (8.4-10.2) mg/dL Magnesium (1.6-2.3) mg/dL 05/10/20 05/10/20 Range/Units 06:21 06:21 WBC (3.8-10.6) k/uL Hgb (11.4-16.0) gm/dL RDW (11.5-15.5) % Neutrophils # (1.3-7.7) k/uL PT 85.1 H (9.0-12.0) sec INR 8.2 H* (<1.2) Sodium (137-145) mmol/L Chloride (98-107) mmol/L Creatinine (0.52-1.04) mg/dL Glucose (74-99) mg/dL POC Glucose (mg/dL) (75-99) mg/dL Calcium (8.4-10.2) mg/dL Magnesium 1.4 L (1.6-2.3) mg/dL Assessment and Plan Assessment: Assessment #1 status post fall at home #2 paroxysmal atrial fibrillation #3 elevated d-dimer #4 elevated troponin Plan #1 continue the current medical regimen #2 continue metoprolol as well as atorvastatin #3 continue considering conservative medical approach in the absence of any symptoms #4 follow-up with the patient
[2020-05-10 12:14] LABS: Glucose,Whole Blood 113 mg/dL (75-99)
[2020-05-10] MEDS: MAGNESIUM SULFATE-D5W PMX 1 GM in DEXTROSE/WATER 1 100ML.BAG IVPB SCH ×3 (12:43→16:39)
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
[2020-05-10 13:35] LABS: T4, Free (Free Thyroxine) 1.07 ng/dL (0.78-2.19)
--- NOTE | 2020-05-10 13:46 | P.PN ---
Subjective Progress Note Date: 05/10/20 Patient admitted with right wrist fracture secondary to fall, acute exacerbation chronic COPD history of recent stroke tPA 1 month ago, patient has electrolyte imbalance hyponatremia hypomagnesemia hypokalemia, and elevated troponins Patient's awake alert vital signs are stable patient is afebrile currently getting cast applied to right wrist 05/09/2020 Patient reports she had seizures 2 days ago ,prior to admission, with right-sided weakness in her right upper and lower extremities accompanied b y fluctuating numbness / weakness, and sustained a fall. Currently reports numbness in her right foot and right lower leg. Evaluated by orthopedics, pulmonary, cardiology with recommendations noted and appreciated. No further seizure activity reported. Reports she last saw her own neurologist 2 months ago. 05/10/2020 INR up to 8.2, received vitamin K. Creatinine 0.5. Hemoglobin 11, p latelets 205, no bleeding noted . Elevated d-dimer, VQ scan ordered reporting intermediate probability of PE-unlikely as per cardiology. Negative for orthostatic hypotension. Magnesium 1.4. Staff reports patient ambulating to and from bathroom without difficulty. Patient reports continued fluctuating numbness, tingling of the entire right side of body. Continues on seizure precautions, maintained on Keppra. Evaluated by neurology, EEG ordered. Denies chest pain, palpitations or shortness of breath. Objective - Vital Signs Vital signs: Vital Signs Temp 98.2 F 05/10/20 08:00 Pulse 78 05/10/20 08:00 Resp 16 05/10/20 08:00 BP 158/72 05/10/20 08:00 Pulse Ox 93 L 05/10/20 08:00 Intake & Output 05/09/20 05/10/20 05/10/20 18:59 06:59 18:59 Intake Total 911 600 180 Output Total 1999 Balance -1089 600 180 Weight 51.5 kg Intake: Intake, IV Titration 675 600 Amount Sodium Chloride 0.9% 1, 675 600 000 ml @ 75 mls/hr IV . [id number] [facility] Rx#:[id number] Oral 236 180 Output: Urine 1999 Other: Voiding Method Bedside Commode # Voids 2 - Labs CBC & Chem 7: 05/10/20 06:21 05/10/20 06:21 Labs: Abnormal Lab Results - Last 24 Hours (Table) 05/09/20 05/09/20 05/09/20 Range/Units 12:08 16:48 19:29 WBC (3.8-10.6) k/uL Hgb (11.4-16.0) gm/dL RDW (11.5-15.5) % Neutrophils # (1.3-7.7) k/uL PT 64.7 H (9.0-12.0) sec INR 6.4 H* (<1.2) Sodium (137-145) mmol/L Chloride (98-107) mmol/L Creatinine (0.52-1.04) mg/dL Glucose (74-99) mg/dL POC Glucose (mg/dL) 214 H 162 H (75-99) mg/dL Calcium (8.4-10.2) mg/dL Magnesium (1.6-2.3) mg/dL 05/09/20 05/09/20 05/09/20 Range/Units 20:21 20:57 20:57 WBC (3.8-10.6) k/uL Hgb (11.4-16.0) gm/dL RDW (11.5-15.5) % Neutrophils # (1.3-7.7) k/uL PT 63.3 H (9.0-12.0) sec INR 6.2 H* (<1.2) Sodium 135 L (137-145) mmol/L Chloride (98-107) mmol/L Creatinine 0.51 L (0.52-1.04) mg/dL Glucose 205 H (74-99) mg/dL POC Glucose (mg/dL) 329 H (75-99) mg/dL Calcium 7.8 L (8.4-10.2) mg/dL Magnesium 1.4 L (1.6-2.3) mg/dL 05/10/20 05/10/20 05/10/20 Range/Units 06:14 06:21 06:21 WBC 11.9 H (3.8-10.6) k/uL Hgb 11.0 L (11.4-16.0) gm/dL RDW 15.6 H (11.5-15.5) % Neutrophils # 10.2 H (1.3-7.7) k/uL PT (9.0-12.0) sec INR (<1.2) Sodium (137-145) mmol/L Chloride 108 H (98-107) mmol/L Creatinine 0.50 L (0.52-1.04) mg/dL Glucose 116 H (74-99) mg/dL POC Glucose (mg/dL) 122 H (75-99) mg/dL Calcium 7.5 L (8.4-10.2) mg/dL Magnesium (1.6-2.3) mg/dL 05/10/20 05/10/20 Range/Units 06:21 06:21 WBC (3.8-10.6) k/uL Hgb (11.4-16.0) gm/dL RDW (11.5-15.5) % Neutrophils # (1.3-7.7) k/uL PT 85.1 H (9.0-12.0) sec INR 8.2 H* (<1.2) Sodium (137-145) mmol/L Chloride (98-107) mmol/L Creatinine (0.52-1.04) mg/dL Glucose (74-99) mg/dL POC Glucose (mg/dL) (75-99) mg/dL Calcium (8.4-10.2) mg/dL Magnesium 1.4 L (1.6-2.3) mg/dL Assessment and Plan Assessment: (1) Elevated troponin Current Visit: Yes Status: Acute Code(s): R79.89 - OTHER SPECIFIED ABNORMAL FINDINGS OF BLOOD CHEMISTRY SNOMED Code(s): 825992301 (2) Hypokalemia Current Visit: Yes Status: Acute Code(s): E87.6 - HYPOKALEMIA SNOMED Code(s): 28281681 (3) Hyponatremia Current Visit: Yes Status: Acute Code(s): E87.1 - HYPO-OSMOLALITY AND HYPONATREMIA SNOMED Code(s): 85724746 (4) Mental status change, acute metabolic encephalopathy, all multifactorial, Current Visit: Yes Status: Acute Code(s): R41.82 - ALTERED MENTAL STATUS, UNSPECIFIED SNOMED Code(s): 125001271 (5) Ataxia Current Visit: No Status: Acute Code(s): R27.0 - ATAXIA, UNSPECIFIED SNOMED Code(s): 97797596 (6) Atrial fibrillation, chronic paroxysmal Current Visit: No Status: Acute Code(s): I48.91 - UNSPECIFIED ATRIAL FIBRILLATION SNOMED Code(s): 45198242 (7) COPD exacerbation Current Visit: No Status: Acute Code(s): J44.1 - CHRONIC OBSTRUCTIVE PULMONARY DISEASE W (ACUTE) EXACERBATION SNOMED Code(s): 439478649 (8) hypomagnesemia (9) Coumadin toxicity (10) elevated d-dimer, V/Q reporting intermediate probability of PE, unlikely as per cardiology. (11) focal seizures (12) daily marijuana use (13) history of polysubstance abuse, on Suboxone Plan: Continue current medication regime ,monitoring and symptomatic treatment. Magnesium supplementation. Repeat INR at 1600, Switch to Xarelto once INR less than 3-discussed with staff and pharmacy. Case management to verify outpatient Xarelto coverage-Rx escribed.Orthostatic vital signs. Seizure precautions. EEG results pending .Follow closely with multiple consults. The impression and plan of care has been dictated as directed. : I performed a history and examination of this patient, discussed the same with the dictator. I agree with the dictator's note ,documented as a scribe. Any additional findings or plans will be noted.
[2020-05-10] MEDS: HYDROcodone/APAP 10-325MG 1 EACH TAB PO PRN ×2 (14:07→20:11)
[2020-05-10 16:27] LABS: INR 3.7 (<1.2); Prothrombin Time 36.5 sec (9.0-12.0)
[2020-05-10 17:12] LABS: Glucose,Whole Blood 132 mg/dL (75-99)
--- NOTE | 2020-05-10 19:46 | EEG ---
ELECTROENCEPHALOGRAM REPORT DATE OF SERVICE: 05/10/2020 CLINICAL HISTORY: This is a 60-year-old female with a history of seizure, left parietal stroke that is old, atrial fibrillation, who presented after a fall episode, injuring her wrist. The patient stood up, felt light-headed and felt her wrist. There was questionable mention of fluctuation of right arm weakness. This EEG was obtained to evaluate for seizure and epileptiform activity. EEG TYPE: This is a 21-channel EEG that was performed with video using the 10-20 electrode placement system. DESCRIPTION: Wakefulness and drowsiness were obtained. During wakefulness there was a posterior- dominant rhythm of low to moderate voltage, reactive, well modulated, of 8 to 8.5 Hz activity. During drowsiness there was slowing and attenuation of the background activity. There was no stage II sleep seen. There was frequent moderate to high voltage of generalized rhythmic delta activity of frontal predominance (GRDA) seen during the study. Interictal and ictal: None seen. ACTIVATION PROCEDURE: Photic stimulation did not evoke a posterior driving response. Hyperventilation was not performed because of the patient's clinical history. EEG DIAGNOSIS: This is an abnormal routine EEG during awake and drowsy due to GRDA with frontal predominance. CLINICAL INTERPRETATION: This is an abnormal routine awake and drowsy routine EEG due to generalized rhythmic delta activity of frontal predominance indicative of mild encephalopathy of unspecified etiology. There is no focal slowing, epileptiform discharge or seizures seen during the study. Clinical interpretation recommended. MMODL / IJN: [id number] /
[2020-05-10] MEDS: QUEtiapine 100 MG TAB PO SCH (20:11)
[2020-05-10 20:53] LABS: Glucose,Whole Blood 158 mg/dL (75-99)
[2020-05-10 21:41] VITALS: RESP 18
[2020-05-11] MEDS: HYDROcodone/APAP 10-325MG 1 EACH TAB PO PRN (05:28)
[2020-05-11 05:55] LABS: Glucose,Whole Blood 141 mg/dL (75-99)
[2020-05-11] MEDS: SODIUM CHLORIDE 0.9% 1,000 ML IV SCH (06:15)
[2020-05-11] MEDS: INSULIN ASPART (NovoLOG) 100 UNIT/ML VIAL SQ SCH (06:15)
[2020-05-11] MEDS: IPRATROPIUM 0.5 MG/2.5 ML NEBU INHALATION SCH (07:55)
[2020-05-11] MEDS: FORMOTEROL FUMARATE 20 MCG/2 ML NEBU INHALATION SCH (07:55)
[2020-05-11] MEDS: ATORVASTATIN 20 MG TAB PO SCH (08:10)
[2020-05-11] MEDS: CHOLECALCIFEROL 1,000 UNIT TAB PO SCH (08:10)
[2020-05-11] MEDS: DULoxetine HCL 60 MG CAPSULE.DR PO SCH (08:10)
[2020-05-11] MEDS: levETIRAcetam 500 MG TAB PO SCH (08:10)
[2020-05-11] MEDS: LORATADINE 10 MG TAB PO SCH (08:11)
[2020-05-11] MEDS: METOPROLOL SUCCINATE (ER) 25 MG TAB.ER.24H PO SCH (08:11)
[2020-05-11] MEDS: PANTOPRAZOLE 40 MG TABLET PO SCH (08:11)
[2020-05-11] MEDS: methylPREDNISolone SOD SUCCI 40 MG/ML 1 ML VIAL IV SCH (08:11)
[2020-05-11 08:20] LABS: Basophils % (A) 0 %; Eosinophils # (A) 0.2 k/uL (0-0.7); Eosinophils % (A) 2 %; HCT 38.1 % (34.0-46.0); HGB 12.6 gm/dL (11.4-16.0); Lymphocytes # (A) 1.2 k/uL (1.0-4.8); Lymphocytes % (A) 13 %; MCH 29.1 pg (25.0-35.0); MCV 88.3 fL (80.0-100.0); Mean Platelet Volume 8.1; Monocytes # (A) 0.4 k/uL (0-1.0); Monocytes % (A) 5 %; Neutrophils # (A) 7.8 k/uL (1.3-7.7); Neutrophils % (A) 81 %; Platelet Count 224 k/uL (150-450); RBC 4.32 m/uL (3.80-5.40); RDW 15.4 % (11.5-15.5); WBC 9.6 k/uL (3.8-10.6)
[2020-05-11 08:21] VITALS: BP 168/79; PULSE 77; TEMP 98.3
[2020-05-11 08:35] LABS: INR 1.3 (<1.2)
--- NOTE | 2020-05-11 08:39 | P.PN ---
Subjective Progress Note Date: 05/11/20 Principal diagnosis: Wrist fracture involving distal end of the radius Acute COPD exacerbation History of stroke status post TPA month ago Electrolyte imbalance with hyponatremia and hypomagnesemia and hypokalemia Elevated troponin 05/11/2020, patient seen and evaluated examined during the rounds labs reviewed medications reviewed care plan discussed, denies any chest pain, he still have some name Tim tingling off and on, neurology service has been following from [place] trying point however doing well shortness of breath and wheezing have been stable 05/10/2020, patient seen eval examined during the rounds labs reviewed medications reviewed, VQ scan was done last night indeterminate, mismatch was not seen mass effect likely due to severe COPD, INR is 8.2, vitamin K single dose 10 mg has been given 05/09/2020, patient seen and evaluated examined respiratory status is improved, generalized weakness is present, covert 19 however still pending patient remains in contact in respiratory isolation, will continue current plan of care with IV steroids and bronchodilators and follow This is a 60-year-old female well-known to me from prior history of severe COPD, patient was recently hospitalized with the strokelike features subsequently improved when discharged she did get TPA, she came into the hospital with left wrist pain after a fall, also has been going on shortness of breath, some intermittent confusion is present as well, no history of chest pain no history of fever or chills patient was found to have leukocytosis with hypo-kalemia hyponatremia and hypomagnesemia, patient also have ongoing issues associated with substance use, and elevated troponins Objective - Vital Signs Vital signs: Vital Signs Temp 98.3 F 05/11/20 08:00 Pulse 77 05/11/20 08:00 Resp 18 05/11/20 08:00 BP 168/79 05/11/20 08:00 Pulse Ox 94 L 05/11/20 08:00 Intake & Output 05/10/20 05/11/20 05/11/20 18:59 06:59 18:59 Intake Total 180 Output Total 1999 Balance 180 -1999 Weight 74.2 kg Intake: Oral 180 Output: Urine 1999 Other: Voiding Method Bedside Commode Bedside Commode # Voids 1 - Exam Constitutional General appearance: average body habitus, cooperative, disheveled - EENT Eyes: EOMI, PERRLA ENT: normal oropharynx Ears: bilateral: normal - Neck Neck: normal ROM Carotids: bilateral: upstroke normal Thyroid: bilateral: normal size - Respiratory Respiratory: bilateral: wheezing (An expiratory), prolonged expiration - Cardiovascular Rhythm: regular Heart sounds: normal: S1, S2 - Gastrointestinal General gastrointestinal: normal bowel sounds - Integumentary Integumentary: decreased turgor - Neurologic Neurologic: CNII-XII intact - Musculoskeletal Musculoskeletal: gait normal, generalized weakness, strength equal bilaterally - Psychiatric Psychiatric: A&O x's 3 - Labs CBC & Chem 7: 05/11/20 07:51 05/10/20 06:21 Labs: Abnormal Lab Results - Last 24 Hours (Table) 05/10/20 05/10/20 05/10/20 Range/Units 06:21 12:12 16:11 Neutrophils # (1.3-7.7) k/uL PT 36.5 H (9.0-12.0) sec INR 3.7 H (<1.2) POC Glucose (mg/dL) 113 H (75-99) mg/dL TSH 0.068 L (0.465-4.680) mIU/L 05/10/20 05/10/20 05/11/20 Range/Units 17:10 20:38 05:48 Neutrophils # (1.3-7.7) k/uL PT (9.0-12.0) sec INR (<1.2) POC Glucose (mg/dL) 132 H 158 H 141 H (75-99) mg/dL TSH (0.465-4.680) mIU/L 05/11/20 05/11/20 Range/Units 07:36 07:51 Neutrophils # 7.8 H (1.3-7.7) k/uL PT 13.0 H (9.0-12.0) sec INR 1.3 H (<1.2) POC Glucose (mg/dL) (75-99) mg/dL TSH (0.465-4.680) mIU/L Assessment and Plan Assessment: Elevated INR/coagulopathy Wrist fracture involving distal end of the radius Acute COPD exacerbation History of stroke status post TPA month ago Electrolyte imbalance with hyponatremia and hypomagnesemia and hypokalemia Elevated troponin Plan: Monitor labs including PT/INR Continue bronchodilator IV steroids Deep breathing exercise incentive spirometry Replace electrolytes as per protocol Cardiovascular services following for elevated troponins Time with Patient: Greater than 30
[2020-05-11 09:08] LABS: African American GFR (CKD) >90 (>60 ml/min/1.73 sqM); Anion Gap 5 mmol/L; Blood Urea Nitrogen 14 mg/dL (7-17); Calcium 7.8 mg/dL (8.4-10.2); Carbon Dioxide 27 mmol/L (22-30); Chloride 106 mmol/L (98-107); Glucose 178 mg/dL (74-99); Magnesium 1.9 mg/dL (1.6-2.3); Non-African American GFR(CKD) >90 (>60 ml/min/1.73 sqM); Sodium 138 mmol/L (137-145)
[2020-05-11 09:19] LABS: Potassium 4.7 mmol/L (3.5-5.1)
--- NOTE | 2020-05-11 12:15 | P.DS ---
Providers Date of admission: 05/06/20 21:54 Expected date of discharge: 05/11/20 Attending physician: Vidal Rubio Consults: 05/07/20 07:59 Consult Physician Urgent Consulting Provider: Lilly Everett Consult Reason/Comments: Abnormal troponins Do you want consulting provider notified?: Yes 05/07/20 08:22 Consult Physician Routine Consulting Provider: [facility] Consult Reason/Comments: rt wrist fx Do you want consulting provider notified?: Yes 05/09/20 10:48 Consult Physician Routine Consulting Provider: Shalom Goldsmith Consult Reason/Comments: seizures, fluctuating right sided weakness/numbness Do you want consulting provider notified?: Yes Primary care physician: Phil Palma [place] [facility] Course: Final Diagnoses (1) Elevated troponin Current Visit: Yes Status: Acute Code(s): R79.89 - OTHER SPECIFIED ABNORMAL FINDINGS OF BLOOD CHEMISTRY SNOMED Code(s): 111525286 (2) Hypokalemia Current Visit: Yes Status: Acute Code(s): E87.6 - HYPOKALEMIA SNOMED Code(s): 30470588 (3) Hyponatremia Current Visit: Yes Status: Acute Code(s): E87.1 - HYPO-OSMOLALITY AND HYPONATREMIA SNOMED Code(s): 72018386 (4) Mental status change, acute metabolic encephalopathy, all multifactorial, Current Visit: Yes Status: Acute Code(s): R41.82 - ALTERED MENTAL STATUS, UNSPECIFIED SNOMED Code(s): 820050340 (5) Ataxia Current Visit: No Status: Acute Code(s): R27.0 - ATAXIA, UNSPECIFIED SNOMED Code(s): 28985410 (6) Atrial fibrillation, chronic paroxysmal Current Visit: No Status: Acute Code(s): I48.91 - UNSPECIFIED ATRIAL FIBRILLATION SNOMED Code(s): 07671235 (7) COPD exacerbation Current Visit: No Status: Acute Code(s): J44.1 - CHRONIC OBSTRUCTIVE PULMONARY DISEASE W (ACUTE) EXACERBATION SNOMED Code(s): 034257631 (8) hypomagnesemia (9) Coumadin toxicity (10) elevated d-dimer, V/Q reporting intermediate probability of PE, unlikely as per cardiology. (11) focal seizures (12) daily marijuana use (13) history of polysubstance abuse, on Suboxone Hospital course:Patient admitted with right wrist fracture secondary to fall, acute exacerbation chronic COPD history of recent stroke tPA 1 month ago, patient has electrolyte imbalance hyponatremia hypomagnesemia hypokalemia, and elevated troponins Patient's awake alert vital signs are stable patient is afebrile currently getting cast applied to right wrist 05/09/2020 Patient reports she had seizures 2 days ago ,prior to admission, with right-sided weakness in her right upper and lower extremities accompanied by fluctuating numbness / weakness, and sustained a fall. Currently reports numbness in her right foot and right lower leg. Evaluated by orthopedics, pulmonary, cardiology with recommendations noted and appreciated. No further seizure activity reported. Reports she last saw her own neurologist 2 months ago. 05/10/2020 INR up to 8.2, received vitamin K. Creatinine 0.5. Hemoglobin 11, platelets 205, no bleeding noted . Elevated d-dimer, VQ scan ordered reporting intermediate probability of PE-unlikely as per cardiology. Negative for orthostatic hypotension. Magnesium 1.4. Staff reports patient ambulating to and from bathroom without difficulty. Patient reports continued fluctuating numbness, tingling of the entire right side of body. Continues on seizure precautions, maintained on Keppra. Evaluated by neurology, EEG ordered. Denies chest pain, palpitations or shortness of breath. INR down to 1.3. Patient left AMA. Advised to pickup her free month of xarelto in the pharmcy. The impression and plan of care has been dictated as directed. : I performed a history and examination of this patient, discussed the same with the dictator. I agree with the dictator's note ,documented as a scribe. Any additional findings or plans will be noted. Patient Condition at Discharge: Stable Plan - Discharge Summary Discharge Rx Participant: No New Discharge Prescriptions: New Rivaroxaban [Xarelto] 20 mg PO W/SUPPER #30 tab Continue Metoprolol Succinate (ER) [Toprol XL] 25 mg PO DAILY Buprenorphine HCl/Naloxone HCl [Suboxone 8 mg-2 mg Sl Film] 1 film SL DAILY Loratadine [Claritin] 10 mg PO DAILY DULoxetine HCL [Cymbalta] 60 mg PO DAILY QUEtiapine FUMARATE [SEROquel] 300 mg PO HS Atorvastatin [Lipitor] 20 mg PO DAILY Glycopyrrolate/Formoterol Fum [Bevespi Aerosphere Inhaler] 2 puff INHALATION RT-BID Pantoprazole Sodium [Protonix] 40 mg PO DAILY #30 tablet. Fluticasone Nasal [place] [Flonase Nasal [place]] 2 spr EA NOSTRIL DAILY PRN PRN Reason: Allergy Symptoms Albuterol Sulfate [Albuterol Sulfate Hfa] 2 puff INHALATION RT-Q6H PRN PRN Reason: Shortness Of Breath Buprenorphine HCl/Naloxone HCl [Suboxone 2 mg-0.5 mg Sl Film] 1 film SL DAILY Cholecalciferol [Vitamin D3 (25 Mcg = 1000 Iu)] 2,000 unit PO DAILY levETIRAcetam [Keppra] 1,000 mg PO Q12HR #120 tab Discontinued Warfarin Sodium [Coumadin] 2.5 mg PO DAILY@1800 #7 tablet Discharge Medication List Metoprolol Succinate (ER) [Toprol XL] 25 mg PO DAILY 02/21/18 [History] Buprenorphine HCl/Naloxone HCl [Suboxone 8 mg-2 mg Sl Film] 1 film SL DAILY 04/15/18 [History] DULoxetine HCL [Cymbalta] 60 mg PO DAILY 11/09/18 [History] Loratadine [Claritin] 10 mg PO DAILY 11/09/18 [History] Atorvastatin [Lipitor] 20 mg PO DAILY 03/18/19 [History] QUEtiapine FUMARATE [SEROquel] 300 mg PO HS 03/18/19 [History] Glycopyrrolate/Formoterol Fum [Bevespi Aerosphere Inhaler] 2 puff INHALATION RT- BID 11/24/19 [History] Pantoprazole Sodium [Protonix] 40 mg PO DAILY #30 tablet. 11/26/19 [Rx] Albuterol Sulfate [Albuterol Sulfate Hfa] 2 puff INHALATION RT-Q6H PRN 03/27/20 [History] Fluticasone Nasal [place] [Flonase Nasal [place]] 2 spr EA NOSTRIL DAILY PRN 03/27/20 [History] Buprenorphine HCl/Naloxone HCl [Suboxone 2 mg-0.5 mg Sl Film] 1 film SL DAILY 04/14/20 [History] Cholecalciferol [Vitamin D3 (25 Mcg = 1000 Iu)] 2,000 unit PO DAILY 04/14/20 [History] levETIRAcetam [Keppra] 1,000 mg PO Q12HR #120 tab 07/13/20 [Rx] Rivaroxaban [Xarelto] 20 mg PO W/SUPPER #30 tab 05/10/20 [Rx] Follow up Appointment(s)/Referral(s): Shameka John DO [Doctor of Osteopathic Medicine] - 1 Week Phil Palma MD [Primary Care Provider] - 1-2 days Activity/Diet/Wound Care/Special Instructions: Left AMA appropriate cast care instructions :she should keep to keep cast c lean and dry. She should not get the cast wet. She should not submerge cast. She should not stick anything down the cast. She'll keep her right hand elevated. Discharge Disposition: Left Against Medical Advice
[2020-05-11] MEDS ORDERED: RIVAROXABAN 20 MG TAB PO SCH (17:30)
== END 2020-05-11 10:14 | disposition left against medical advice (07) | DRG 562 ==
LOC: EC 19:03 → 3SCARD 21:54
PROVIDERS: ADMIT Family Medicine; ATTEND Family Medicine
PROC: 2W3CX2Z Immobilization of Right Lower Arm using Cast (ICD-10-PCS; principal; 2020-05-08)
DX: S52.511A Displaced fracture of right radial styloid process, initial encounter for closed fracture (principal); G93.41 Metabolic encephalopathy; D68.9 Coagulation defect, unspecified; N17.9 Acute kidney failure, unspecified; J44.1 Chronic obstructive pulmonary disease with (acute) exacerbation; E87.1 Hypo-osmolality and hyponatremia; Z11.59 Encounter for screening for other viral diseases; I48.0 Paroxysmal atrial fibrillation; G40.909 Epilepsy, unspecified, not intractable, without status epilepticus; F31.9 Bipolar disorder, unspecified; F11.10 Opioid abuse, uncomplicated; I25.10 Atherosclerotic heart disease of native coronary artery without angina pectoris; E78.5 Hyperlipidemia, unspecified; I10 Essential (primary) hypertension; M19.90 Unspecified osteoarthritis, unspecified site; K21.9 Gastro-esophageal reflux disease without esophagitis; F41.9 Anxiety disorder, unspecified; F17.200 Nicotine dependence, unspecified, uncomplicated; R00.0 Tachycardia, unspecified; E86.0 Dehydration; E87.6 Hypokalemia; R40.2362 Coma scale, best motor response, obeys commands, at arrival to emergency department; R40.2142 Coma scale, eyes open, spontaneous, at arrival to emergency department; R40.2252 Coma scale, best verbal response, oriented, at arrival to emergency department; G89.29 Other chronic pain; F10.11 Alcohol abuse, in remission; R79.89 Other specified abnormal findings of blood chemistry; R27.0 Ataxia, unspecified; F12.10 Cannabis abuse, uncomplicated; E83.42 Hypomagnesemia; R20.2 Paresthesia of skin; W18.30XA Fall on same level, unspecified, initial encounter; T45.515A Adverse effect of anticoagulants, initial encounter; Z71.6 Tobacco abuse counseling; Z71.3 Dietary counseling and surveillance; Z86.73 Personal history of transient ischemic attack (TIA), and cerebral infarction without residual deficits; Z79.899 Other long term (current) drug therapy; Z79.01 Long term (current) use of anticoagulants; Z88.1 Allergy status to other antibiotic agents; Z88.8 Allergy status to other drugs, medicaments and biological substances; Z87.01 Personal history of pneumonia (recurrent); Z90.49 Acquired absence of other specified parts of digestive tract; Z90.79 Acquired absence of other genital organ(s); Z91.410 Personal history of adult physical and sexual abuse; Z98.890 Other specified postprocedural states; Z87.828 Personal history of other (healed) physical injury and trauma; Z83.3 Family history of diabetes mellitus; Z82.49 Family history of ischemic heart disease and other diseases of the circulatory system; Z80.0 Family history of malignant neoplasm of digestive organs; Z82.0 Family history of epilepsy and other diseases of the nervous system; Z83.49 Family history of other endocrine, nutritional and metabolic diseases
CPT/HCPCS: 36415; 70450; 71046; 78582; 80048; 80053; 80306; 80320; 81001; 82607; 83735; 84439; 84443; 84484; 85025; 85379; 85610; 85730; 93005; 93308; 94640; 95816; 96365; 96366; 96375; 96376; 99285

== ENCOUNTER → 2020-07-29 | Outpatient (CLI) | payer OTHER ==
--- NOTE | 2020-07-30 11:33 | XR ---
EXAMINATION TYPE: XR chest 2V DATE OF EXAM: 07/29/2020 CLINICAL HISTORY: J44.0 Chronic obstructive pulmonary disease with acute lower. TECHNIQUE: Frontal and lateral view of the chest. COMPARISON: 05/06/2020 chest radiograph FINDINGS: Lungs are hyperinflated with emphysematous change. The cardiomediastinal silhouette is wit hin normal limits for size. Pulmonary vasculature is normal. There is no focal air space opacity, ple ural effusion, or pneumothorax seen. Degenerative changes of the spine. IMPRESSION: No acute cardiopulmonary process.
== END | disposition home or self-care (01) ==
LOC: RADXRMAIN 15:49
PROVIDERS: ATTEND Family Medicine
DX: J44.0 Chronic obstructive pulmonary disease with (acute) lower respiratory infection (principal)
CPT/HCPCS: 71046

== ENCOUNTER → 2020-07-29 | Outpatient (CLI) | payer OTHER | END | disposition home or self-care (01) | LOC: LABWHC1 15:34 | PROVIDERS: ATTEND Psychiatry & Neurology Neurology | DX: R56.9 Unspecified convulsions (principal) | CPT/HCPCS: 36415; 80177 ==

== ENCOUNTER 2020-10-16 18:27 | Emergency (ER) | payer OTHER ==
[2020-10-16 18:32] VITALS: BP 132/77; PULSE 106; RESP 18; TEMP 98.2
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
[2020-10-16 19:48] LABS: Basophils % (A) 0 %; Eosinophils # (A) 0.3 k/uL (0-0.7); Eosinophils % (A) 2 %; HCT 43.4 % (34.0-46.0); HGB 14.3 gm/dL (11.4-16.0); Lymphocytes # (A) 4.4 k/uL (1.0-4.8); Lymphocytes % (A) 32 %; MCH 27.7 pg (25.0-35.0); MCV 83.9 fL (80.0-100.0); Mean Platelet Volume 7.3; Monocytes # (A) 0.6 k/uL (0-1.0); Monocytes % (A) 5 %; Neutrophils # (A) 8.4 k/uL (1.3-7.7); Neutrophils % (A) 60 %; Platelet Count 250 k/uL (150-450); RBC 5.18 m/uL (3.80-5.40); RDW 15.1 % (11.5-15.5)
[2020-10-16 19:58] LABS: ALT 15 U/L (4-34); AST 28 U/L (14-36); African American GFR (CKD) >90 (>60 ml/min/1.73 sqM); Albumin 3.6 g/dL (3.5-5.0); Alkaline Phosphatase 51 U/L (38-126); Anion Gap 3 mmol/L; Blood Urea Nitrogen 15 mg/dL (7-17); Calcium 8.6 mg/dL (8.4-10.2); Carbon Dioxide 35 mmol/L (22-30); Chloride 97 mmol/L (98-107); Glucose 108 mg/dL (74-99); Non-African American GFR(CKD) >90 (>60 ml/min/1.73 sqM); Potassium 3.4 mmol/L (3.5-5.1); Sodium 135 mmol/L (137-145); Total Bilirubin 0.8 mg/dL (0.2-1.3); Total Protein 6.2 g/dL (6.3-8.2)
[2020-10-16 20:05] LABS: D-Dimer 0.46 mg/L FEU (<0.60); Partial Thromboplastin Time 22.9 sec (22.0-30.0); Prothrombin Time 10.5 sec (9.0-12.0)
--- NOTE | 2020-10-16 20:07 | XR ---
EXAMINATION TYPE: XR chest 2V DATE OF EXAM: 10/16/2020 COMPARISON: 05/06/2020 HISTORY: Cough. Hemoptysis. TECHNIQUE: 2 views FINDINGS: There is no heart failure nor confluent pneumonic infiltrate. Costophrenic angles are clear . There are chest leads. There is osteopenia. There is 40% wedging of T8 vertebra unchanged. IMPRESSION: No active cardiopulmonary disease. Old T8 mild compression fracture. No change compared t o old exam.
== END 2020-10-16 21:00 | disposition home or self-care (01) ==
LOC: EC 18:27
DX: R04.2 Hemoptysis (principal); I10 Essential (primary) hypertension; J44.1 Chronic obstructive pulmonary disease with (acute) exacerbation; I25.119 Atherosclerotic heart disease of native coronary artery with unspecified angina pectoris; I48.91 Unspecified atrial fibrillation; M19.90 Unspecified osteoarthritis, unspecified site; E78.5 Hyperlipidemia, unspecified; F41.9 Anxiety disorder, unspecified; F32.9 Major depressive disorder, single episode, unspecified; G40.909 Epilepsy, unspecified, not intractable, without status epilepticus; F17.200 Nicotine dependence, unspecified, uncomplicated; Z79.51 Long term (current) use of inhaled steroids; Z88.8 Allergy status to other drugs, medicaments and biological substances; Z79.899 Other long term (current) drug therapy; Z88.1 Allergy status to other antibiotic agents; Z86.73 Personal history of transient ischemic attack (TIA), and cerebral infarction without residual deficits
CPT/HCPCS: 36415; 71046; 80053; 83605; 84484; 85025; 85379; 85610; 85730; 93005; 99285

== ENCOUNTER 2020-12-23 18:28 | Emergency (ER) | payer OTHER ==
[2020-12-23 18:32] VITALS: RESP 18; TEMP 98.3
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
[2020-12-23 19:33] LABS: Basophils # (A) 0.1 k/uL (0-0.2); Basophils % (A) 1 %; Eosinophils # (A) 0.3 k/uL (0-0.7); Eosinophils % (A) 2 %; HGB 15.1 gm/dL (11.4-16.0); Lymphocytes # (A) 3.1 k/uL (1.0-4.8); Lymphocytes % (A) 20 %; MCH 30.1 pg (25.0-35.0); MCHC 34.3 g/dL (31.0-37.0); MCV 87.8 fL (80.0-100.0); Mean Platelet Volume 7.5; Monocytes # (A) 0.9 k/uL (0-1.0); Monocytes % (A) 6 %; Neutrophils % (A) 71 %; Platelet Count 243 k/uL (150-450); RBC 5.01 m/uL (3.80-5.40); RDW 12.6 % (11.5-15.5); WBC 15.5 k/uL (3.8-10.6)
[2020-12-23 19:41] LABS: Partial Thromboplastin Time 28.1 sec (22.0-30.0); Prothrombin Time 10.5 sec (9.0-12.0)
[2020-12-23 19:43] LABS: ALT 18 U/L (4-34); AST 42 U/L (14-36); African American GFR (CKD) >90 (>60 ml/min/1.73 sqM); Albumin 4.5 g/dL (3.5-5.0); Alkaline Phosphatase 69 U/L (38-126); Anion Gap 8 mmol/L; Blood Urea Nitrogen 16 mg/dL (7-17); Calcium 9.8 mg/dL (8.4-10.2); Carbon Dioxide 35 mmol/L (22-30); Chloride 92 mmol/L (98-107); Glucose 132 mg/dL (74-99); Non-African American GFR(CKD) >90 (>60 ml/min/1.73 sqM); Potassium 4.5 mmol/L (3.5-5.1); Sodium 135 mmol/L (137-145); Total Bilirubin 0.5 mg/dL (0.2-1.3); Total Protein 7.6 g/dL (6.3-8.2)
[2020-12-23 19:46] LABS: Appearance,Urine Clear (Clear); Bilirubin,Urine Negative (Negative); Blood,Urine Negative (Negative); Color,Urine Yellow; Glucose,Urine (UA) Negative (Negative); Ketones,Urine Negative (Negative); Leukocyte Esterase,Urine Negative (Negative); Nitrite,Urine Negative (Negative); PH, Urine 7.5 (5.0-8.0); Protein,Urine Negative (Negative); Specific Gravity,Urine 1.008 (1.001-1.035); Urobilinogen,Urine <2.0 mg/dL (<2.0)
--- NOTE | 2020-12-23 19:55 | CT ---
EXAMINATION TYPE: CT brain wo con DATE OF EXAM: 12/23/2020 COMPARISON: 05/06/2020 HISTORY: Weakness, blurry vision. headache. CT DLP: 1082.4 mGycm Automated exposure control for dose reduction was used. Images obtained of the brain without contrast. There is mild cerebral atrophy. There is no mass effect nor midline shift. There is no sign of intrac ranial hemorrhage. The calvarium is intact. There is normal aeration of the mastoid sinuses. Skull ba se is intact. There is minimal white matter hypodensity left parietal lobe. IMPRESSION: Mild atrophy. No acute intracranial abnormality. No adverse change.
--- NOTE | 2020-12-23 19:57 | XR ---
EXAMINATION TYPE: XR chest 2V DATE OF EXAM: 12/23/2020 COMPARISON: 10/16/2020 HISTORY: Weakness TECHNIQUE: FINDINGS: Heart is normal. Lungs are clear of consolidation. There are no hilar masses. There are maurizio st leads. Costophrenic angles are clear. There is some osteopenia. There is 30% wedging of T8 vertebr a. IMPRESSION: No active cardiopulmonary disease. Old T8 compression fracture. No change.
[2020-12-23 20:24] VITALS: BP 129/88; PULSE 88
== END 2020-12-23 20:40 | disposition home or self-care (01) ==
LOC: EC 18:28
DX: H53.8 Other visual disturbances (principal); R53.1 Weakness; R51.9 Headache, unspecified; E78.5 Hyperlipidemia, unspecified; F17.200 Nicotine dependence, unspecified, uncomplicated; I10 Essential (primary) hypertension; I25.10 Atherosclerotic heart disease of native coronary artery without angina pectoris; I48.91 Unspecified atrial fibrillation; J44.9 Chronic obstructive pulmonary disease, unspecified; K21.9 Gastro-esophageal reflux disease without esophagitis; M19.90 Unspecified osteoarthritis, unspecified site; Z79.51 Long term (current) use of inhaled steroids; Z79.899 Other long term (current) drug therapy; Z86.73 Personal history of transient ischemic attack (TIA), and cerebral infarction without residual deficits; F41.9 Anxiety disorder, unspecified; F32.9 Major depressive disorder, single episode, unspecified; F12.90 Cannabis use, unspecified, uncomplicated; F14.90 Cocaine use, unspecified, uncomplicated
CPT/HCPCS: 36415; 70450; 71046; 80053; 81003; 84484; 85025; 85610; 85730; 93005; 99285

== ENCOUNTER 2020-12-31 23:20 | Emergency (ER) | payer OTHER ==
[2020-12-31 23:25] VITALS: TEMP 98.4
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
[2021-01-01] MEDS ORDERED: SODIUM CHLORIDE 0.9% 500 ML 500 ML IV STA (00:54)
[2021-01-01 01:10] VITALS: RESP 18
[2021-01-01 01:19] LABS: Basophils % (A) 0 %; Eosinophils # (A) 0.1 k/uL (0-0.7); Eosinophils % (A) 1 %; HCT 41.4 % (34.0-46.0); HGB 14.6 gm/dL (11.4-16.0); Lymphocytes # (A) 1.3 k/uL (1.0-4.8); Lymphocytes % (A) 13 %; MCH 30.4 pg (25.0-35.0); MCHC 35.3 g/dL (31.0-37.0); MCV 86.1 fL (80.0-100.0); Mean Platelet Volume 7.2; Monocytes # (A) 0.2 k/uL (0-1.0); Monocytes % (A) 2 %; Neutrophils # (A) 8.1 k/uL (1.3-7.7); Neutrophils % (A) 83 %; Platelet Count 255 k/uL (150-450); RBC 4.81 m/uL (3.80-5.40); RDW 12.7 % (11.5-15.5); WBC 9.8 k/uL (3.8-10.6)
[2021-01-01 01:32] LABS: ALT 17 U/L (4-34); AST 32 U/L (14-36); African American GFR (CKD) >90 (>60 ml/min/1.73 sqM); Albumin 4.4 g/dL (3.5-5.0); Alkaline Phosphatase 61 U/L (38-126); Anion Gap 12 mmol/L; Blood Urea Nitrogen 14 mg/dL (7-17); C Reactive Protein 13.4 mg/L (<10.0); Calcium 9.7 mg/dL (8.4-10.2); Carbon Dioxide 23 mmol/L (22-30); Chloride 97 mmol/L (98-107); Glucose 154 mg/dL (74-99); Non-African American GFR(CKD) >90 (>60 ml/min/1.73 sqM); Potassium 4.5 mmol/L (3.5-5.1); Sodium 132 mmol/L (137-145); Total Bilirubin 0.4 mg/dL (0.2-1.3); Total Protein 7.2 g/dL (6.3-8.2)
[2021-01-01] MEDS ORDERED: methylPREDNISolone SOD SUCCI 125 MG/2 ML VIAL IV STA (01:41)
[2021-01-01] MEDS ORDERED: prednisoLONE ACETATE 1% OPHTH DROPS 5 ML BTL BOTH EYES STA (02:24)
[2021-01-01 02:48] VITALS: BP 125/84; PULSE 100
== END 2021-01-01 02:40 | disposition home or self-care (01) ==
LOC: EC 23:20
DX: H15.109 Unspecified episcleritis, unspecified eye (principal); I48.91 Unspecified atrial fibrillation; I25.10 Atherosclerotic heart disease of native coronary artery without angina pectoris; I10 Essential (primary) hypertension; J44.9 Chronic obstructive pulmonary disease, unspecified; K21.9 Gastro-esophageal reflux disease without esophagitis; E78.5 Hyperlipidemia, unspecified; M19.90 Unspecified osteoarthritis, unspecified site; F32.9 Major depressive disorder, single episode, unspecified; F41.9 Anxiety disorder, unspecified; F17.200 Nicotine dependence, unspecified, uncomplicated; Z20.822 Contact with and (suspected) exposure to COVID-19; F12.90 Cannabis use, unspecified, uncomplicated; F14.90 Cocaine use, unspecified, uncomplicated
CPT/HCPCS: 99283; 96374; 36415; 80053; 85025; 86140; 87635; J2930

== ENCOUNTER 2021-07-25 19:26 | Emergency (ER) | payer OTHER ==
[2021-07-25 20:06] VITALS: TEMP 98.7
[2021-07-25] MEDS ORDERED: LORazepam 2 MG/ML INJ IV STA ×2 (20:53→23:44)
[2021-07-25] MEDS ORDERED: SODIUM CHLORIDE 0.9% 500 ML 500 ML IV STA (20:53)
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
[2021-07-25 21:50] LABS: Basophils # (A) 0.1 k/uL (0-0.2); Basophils % (A) 0 %; Eosinophils # (A) 0.3 k/uL (0-0.7); Eosinophils % (A) 2 %; HCT 36.6 % (34.0-46.0); HGB 12.4 gm/dL (11.4-16.0); Lymphocytes # (A) 3.1 k/uL (1.0-4.8); Lymphocytes % (A) 23 %; MCH 29.5 pg (25.0-35.0); MCHC 33.7 g/dL (31.0-37.0); MCV 87.4 fL (80.0-100.0); Mean Platelet Volume 7.3; Monocytes # (A) 0.7 k/uL (0-1.0); Monocytes % (A) 5 %; Neutrophils % (A) 68 %; Platelet Count 273 k/uL (150-450); RBC 4.19 m/uL (3.80-5.40); RDW 12.4 % (11.5-15.5); WBC 13.2 k/uL (3.8-10.6)
[2021-07-25 22:00] LABS: Chloride 99 mmol/L (98-107)
[2021-07-25 22:03] LABS: ALT 21 U/L (4-34); AST 30 U/L (14-36); Albumin 3.9 g/dL (3.5-5.0); Alkaline Phosphatase 70 U/L (38-126); Anion Gap 6 mmol/L; Blood Urea Nitrogen 10 mg/dL (7-17); Carbon Dioxide 30 mmol/L (22-30); Glucose 87 mg/dL (74-99); Potassium 4.2 mmol/L (3.5-5.1); Sodium 135 mmol/L (137-145); Total Bilirubin 0.3 mg/dL (0.2-1.3)
[2021-07-25 22:04] LABS: African American GFR (CKD) >90 (>60 ml/min/1.73 sqM); Non-African American GFR(CKD) >90 (>60 ml/min/1.73 sqM)
[2021-07-25 22:06] LABS: Amorphous Sediment,Urine Rare /hpf; Appearance,Urine Cloudy (Clear); Bilirubin,Urine Negative (Negative); Blood,Urine Negative (Negative); Color,Urine Yellow; Glucose,Urine (UA) Negative (Negative); Ketones,Urine Negative (Negative); Leukocyte Esterase,Urine Negative (Negative); Nitrite,Urine Negative (Negative); Protein,Urine Negative (Negative); RBC,Urine 1 /hpf (0-5); Specific Gravity,Urine 1.017 (1.001-1.035); Squamous Epithelial Cell,Urine <1 /hpf (0-4); Urobilinogen,Urine <2.0 mg/dL (<2.0)
[2021-07-25 22:20] LABS: Amphetamine Screen,Urine Not Detected (NotDetected); Barbiturate Screen,Urine Not Detected (NotDetected); Benzodiazepines Screen,Urine Not Detected (NotDetected); Cocaine Screen,Urine Not Detected (NotDetected); Methadone Screen, Urine Not Detected (NotDetected); Opiate Screen,Urine Not Detected (NotDetected); Oxycodone Screen, Urine Not Detected (NotDetected); Phencyclidine Screen,Urine Not Detected (NotDetected); Tricyclic Antidepressant,Urine Detected (NotDetected); Urn Cannabinoid Scrn Not Detected (NotDetected)
[2021-07-25 23:12] VITALS: BP 138/90; PULSE 81; RESP 16
== END 2021-07-26 00:06 | disposition home or self-care (01) ==
LOC: EC 19:26
DX: G40.909 Epilepsy, unspecified, not intractable, without status epilepticus (principal); F17.200 Nicotine dependence, unspecified, uncomplicated; I10 Essential (primary) hypertension; I48.91 Unspecified atrial fibrillation; J44.9 Chronic obstructive pulmonary disease, unspecified; M19.90 Unspecified osteoarthritis, unspecified site; K21.9 Gastro-esophageal reflux disease without esophagitis; I25.10 Atherosclerotic heart disease of native coronary artery without angina pectoris; Z86.73 Personal history of transient ischemic attack (TIA), and cerebral infarction without residual deficits; Z88.8 Allergy status to other drugs, medicaments and biological substances; Z88.1 Allergy status to other antibiotic agents; Z79.899 Other long term (current) drug therapy
CPT/HCPCS: 36415; 93005; 80053; 80177; 83735; 84484; 85025; 81001; 80306; 99284; 96374; 96376; 96361; J2060

== ENCOUNTER 2022-01-22 19:11 | Inpatient (IN) | payer OTHER ==
[2022-01-22] MEDS ORDERED: ONDANSETRON 4 MG/2 ML VIAL IVP STA (19:46)
[2022-01-22] MEDS ORDERED: HYDROmorphone 0.5 MG/0.5 ML SYRINGE IVP STA (19:46)
[2022-01-22] MEDS ORDERED: KETOROLAC 15 MG/ML 1 ML VIAL IVP STA (19:46)
[2022-01-22] MEDS ORDERED: SODIUM CHLORIDE 0.9% 1,000 ML IV STA (19:46)
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
[2022-01-22 20:59] LABS: Basophils # (A) 0.1 k/uL (0-0.2); Basophils % (A) 1 %; Eosinophils # (A) 0.2 k/uL (0-0.7); Eosinophils % (A) 2 %; HCT 35.9 % (34.0-46.0); HGB 11.3 gm/dL (11.4-16.0); Hypochromasia Slight; Lymphocytes # (A) 1.7 k/uL (1.0-4.8); Lymphocytes % (A) 11 %; MCH 25.9 pg (25.0-35.0); MCHC 31.6 g/dL (31.0-37.0); MCV 81.9 fL (80.0-100.0); Mean Platelet Volume 7.5; Monocytes # (A) 1.1 k/uL (0-1.0); Monocytes % (A) 7 %; Neutrophils # (A) 12.6 k/uL (1.3-7.7); Neutrophils % (A) 79 %; Platelet Count 563 k/uL (150-450); RBC 4.39 m/uL (3.80-5.40); RDW 13.3 % (11.5-15.5); WBC 15.8 k/uL (3.8-10.6)
[2022-01-22 21:05] LABS: ALT 22 U/L (4-34); AST 30 U/L (14-36); African American GFR (CKD) >90 (>60 ml/min/1.73 sqM); Albumin 3.2 g/dL (3.5-5.0); Alkaline Phosphatase 86 U/L (38-126); Amylase 40 U/L (30-110); Anion Gap 9 mmol/L; Blood Urea Nitrogen 8 mg/dL (7-17); Calcium 8.4 mg/dL (8.4-10.2); Carbon Dioxide 35 mmol/L (22-30); Chloride 88 mmol/L (98-107); Glucose 117 mg/dL (74-99); Lipase 29 U/L (23-300); Non-African American GFR(CKD) >90 (>60 ml/min/1.73 sqM); Sodium 132 mmol/L (137-145); Total Bilirubin 0.6 mg/dL (0.2-1.3); Total Protein 6.7 g/dL (6.3-8.2)
--- NOTE | 2022-01-22 21:21 | CT ---
EXAMINATION TYPE: CT abdomen pelvis w con CT DLP: 862 mGycm, Automated exposure control for dose reduction was used. DATE OF EXAM: 01/22/2022 8:57 PM COMPARISON: CT abdomen pelvis most recent from 02/19/2019 . CLINICAL INDICATION:Female, 61 years old with history of abdominal pain; Abdominal pain, hx Crohn's TECHNIQUE: Standard CT of the abdomen and pelvis following the administration of 100 cc of Isovue 3 00 IV contrast material. Coronal and sagittal reformats were performed. FINDINGS: LOWER CHEST: Unremarkable ABDOMEN LIVER: Unremarkable GALLBLADDER AND BILE DUCTS: Unremarkable. PANCREAS: Cystic area in the posterior aspect of the pancreatic head measuring 26 x 14 mm stable back to at least 2018. SPLEEN: Unremarkable. ADRENAL GLANDS: Unremarkable. KIDNEYS AND URETERS: No evidence of hydronephrosis or renal calculus. The ureters are unremarkable. PELVIS BLADDER: Unremarkable REPRODUCTIVE: Unremarkable. ABDOMEN & PELVIS STOMACH AND BOWEL: Bowel wall thickening with hyperemia of the vasa recta extending from the cecum to the proximal sigmoid colon. Colon is relatively nondistended. No evidence of bowel obstruction. PERITONEUM: No evidence of pneumoperitoneum or free fluid. VASCULATURE: No evidence of aortic aneurysm. MUSCULOSKELETAL: No acute osseous abnormalities. LYMPH NODES: Scattered vasa recta prominent lymph nodes extending along the course of the colon likel y reactive. SOFT TISSUE/ABDOMINAL WALL: Unremarkable IMPRESSION: 1. Colitis involving the cecum extending to the sigmoid colon with relative sparing of distal sigmoi d colon and rectum. 2. Pancreatic head cystic area which is stable back to 2018 and likely represents a side branch or m ain branch IPMN.
[2022-01-22] MEDS ORDERED: TEMAZEPAM 15 MG CAP PO PRN (22:36)
[2022-01-22] MEDS ORDERED: NALOXONE 0.4 MG/ML 1 ML VIAL IV PRN (22:36)
[2022-01-22] MEDS ORDERED: ONDANSETRON 4 MG/2 ML VIAL IVP PRN (22:36)
[2022-01-22] MEDS ORDERED: MAG HYDROX/AL HYDROX/SIMETH 30 ML CUP PO PRN (22:36)
[2022-01-22] MEDS ORDERED: ACETAMINOPHEN TAB 325 MG TAB PO PRN (22:36)
[2022-01-22] MEDS ORDERED: NICOTINE 21MG/24HR PATCH TRANSDERM PRN (22:39)
[2022-01-22] MEDS ORDERED: FLUTICASONE 50MCG/SPRAY NASAL 16GM EA NOSTRIL PRN (22:39)
[2022-01-22] MEDS: HYDROmorphone 0.5 MG/0.5 ML SYRINGE IVP PRN (22:59)
[2022-01-22] MEDS ORDERED: levETIRAcetam 500 MG TAB PO STA (23:06)
[2022-01-22] MEDS: SODIUM CHLORIDE 0.9% 1,000 ML IV SCH (23:27)
[2022-01-23] MEDS ORDERED: QUEtiapine 200 MG TAB PO STA (00:05)
[2022-01-23] MEDS ORDERED: QUEtiapine 100 MG TAB PO STA (00:42)
[2022-01-23] MEDS: HYDROmorphone 0.5 MG/0.5 ML SYRINGE IVP PRN ×5 (02:10→23:17)
[2022-01-23] MEDS: BALSALAZIDE DISODIUM 750 MG CAPSULE PO SCH ×3 (08:13→21:17)
[2022-01-23 08:14] LABS: Basophils # (A) 0.1 k/uL (0-0.2); Basophils % (A) 0 %; Eosinophils # (A) 0.3 k/uL (0-0.7); Eosinophils % (A) 2 %; HCT 29.7 % (34.0-46.0); Hypochromasia Slight; Lymphocytes % (A) 14 %; MCH 26.2 pg (25.0-35.0); MCHC 31.6 g/dL (31.0-37.0); Monocytes # (A) 0.9 k/uL (0-1.0); Monocytes % (A) 6 %; Neutrophils % (A) 76 %; Platelet Count 434 k/uL (150-450); RBC 3.58 m/uL (3.80-5.40); RDW 13.2 % (11.5-15.5); WBC 14.4 k/uL (3.8-10.6)
[2022-01-23] MEDS: PANTOPRAZOLE 40 MG TABLET PO SCH (08:14)
[2022-01-23] MEDS: METOPROLOL SUCCINATE (ER) 25 MG TAB.ER.24H PO SCH (08:14)
[2022-01-23] MEDS: NON FORMULARY DRUG (Buprenorphine Hcl/Naloxone Hcl [Suboxone 8 Mg-2 Mg Sl Film] 1 EACH Fil SUBLINGUAL SCH (08:15)
[2022-01-23 08:19] LABS: HGB 9.4 gm/dL (11.4-16.0)
[2022-01-23 08:27] LABS: African American GFR (CKD) >90 (>60 ml/min/1.73 sqM); Anion Gap 5 mmol/L; Blood Urea Nitrogen 8 mg/dL (7-17); Calcium 7.3 mg/dL (8.4-10.2); Carbon Dioxide 30 mmol/L (22-30); Chloride 96 mmol/L (98-107); Glucose 83 mg/dL (74-99); Non-African American GFR(CKD) >90 (>60 ml/min/1.73 sqM); Potassium 3.7 mmol/L (3.5-5.1); Sodium 131 mmol/L (137-145)
[2022-01-23] MEDS: levETIRAcetam 500 MG TAB PO SCH ×2 (08:42→21:34)
[2022-01-23 09:02] LABS: C Reactive Protein 17.5 mg/dL (<1.0)
[2022-01-23 09:09] LABS: Erythrocyte Sedimentation Rate 75 mm/hr (0-20)
[2022-01-23] MEDS ORDERED: PIPERACILLIN-TAZOBACTAM 3.375 GM in SODIUM CHLORIDE 0.9% 100 ML IVPB ONE (10:45)
[2022-01-23] MEDS ORDERED: hydrOXYzine pamoate 25 MG CAP PO PRN (10:48)
[2022-01-23] MEDS ORDERED: NICOTINE GUM (POLACRILEX) 2 MG GUM BUCCAL PRN (11:00)
[2022-01-23] MEDS: methylPREDNISolone SOD SUCCI 40 MG/ML 1 ML VIAL IV SCH ×3 (11:01→23:17)
[2022-01-23] MEDS: SODIUM CHLORIDE 0.9% 1,000 ML IV SCH (12:42)
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
[2022-01-23] MEDS: PIPERACILLIN-TAZOBACTAM 3.375 GM in SODIUM CHLORIDE 0.9% 100 ML IVPB SCH ×2 (16:11→23:18)
[2022-01-23] MEDS: DICYCLOMINE 10 MG CAP PO SCH ×2 (16:11→21:17)
--- NOTE | 2022-01-23 19:57 | HP ---
HISTORY AND PHYSICAL CHIEF COMPLAINT: Abdominal pain. HISTORY OF PRESENT ILLNESS: This is the first hospital admission for this patient in my service. She has been having abdominal pain for about a week. Apparently she has a history of Crohn's disease. She has never been in the office, even though she is assigned to us. She has had no hematemesis, melena, hematochezia, fever, chills, etc. Past medical history, family history, and personal and social histories are otherwise unremarkable and noncontributory. PHYSICAL EXAMINATION: Blood pressure 140/84 with a pulse of 88, respirations of 36, and she is afebrile. In general she appeared to be pale and chronically ill in appearance. She was dehydrated. Head, ears, eyes, nose, mouth and throat were normal. The chest was clear to auscultation. Cardiac exam was normal. The abdomen was slightly distended and she had generalized tenderness throughout. Bowel sounds were diminished. There were no definite masses. Extremities were normal. Neurologically she was intact. She is admitted to the hospital with the diagnosis: Exacerbation of Crohn's disease. PLAN: 1. Bedrest. 2. IV fluids. 3. IV steroids. 4. Analgesics. MMODL / IJN: [id number] /
--- NOTE | 2022-01-23 20:05 | PN ---
PROGRESS NOTE DATE OF SERVICE: 01/23/2022 CHIEF COMPLAINT: Abdominal pain. HISTORY OF PRESENT ILLNESS: This lady's pain is slightly improved. She has not been vomiting and she has not run a fever. PHYSICAL EXAMINATION: Chest is clear. Cardiac exam is normal. Abdomen is still slightly distended and there is generalized mild tenderness without rebound. Bowel sounds are present. IMPRESSION: Exacerbation of Crohn's disease. PLAN: Continue with IV fluids and steroids. MMODL / IJN: [id number] /
[2022-01-23] MEDS: QUEtiapine 400 MG TAB PO SCH (21:17)
[2022-01-23] MEDS: QUEtiapine 100 MG TAB PO SCH (21:34)
[2022-01-24] MEDS: HYDROmorphone 0.5 MG/0.5 ML SYRINGE IVP PRN ×7 (02:24→22:15)
[2022-01-24] MEDS: SODIUM CHLORIDE 0.9% 1,000 ML IV SCH ×2 (02:26→16:15)
[2022-01-24] MEDS: methylPREDNISolone SOD SUCCI 40 MG/ML 1 ML VIAL IV SCH ×2 (08:39→16:11)
[2022-01-24] MEDS: MULTIVITAMINS, THERA 1 EACH TAB PO SCH (08:39)
[2022-01-24] MEDS: DICYCLOMINE 10 MG CAP PO SCH ×2 (08:39→21:58)
[2022-01-24] MEDS: METOPROLOL SUCCINATE (ER) 25 MG TAB.ER.24H PO SCH (08:39)
[2022-01-24] MEDS: PANTOPRAZOLE 40 MG TABLET PO SCH (08:39)
[2022-01-24] MEDS: PIPERACILLIN-TAZOBACTAM 3.375 GM in SODIUM CHLORIDE 0.9% 100 ML IVPB SCH ×2 (08:39→16:12)
[2022-01-24] MEDS: LORATADINE 10 MG TAB PO SCH (08:39)
[2022-01-24] MEDS: BALSALAZIDE DISODIUM 750 MG CAPSULE PO SCH ×3 (08:40→21:58)
[2022-01-24] MEDS: levETIRAcetam 500 MG TAB PO SCH ×2 (08:41→19:25)
[2022-01-24] MEDS: NON FORMULARY DRUG (Buprenorphine Hcl/Naloxone Hcl [Suboxone 8 Mg-2 Mg Sl Film] 1 EACH Fil SUBLINGUAL SCH (08:44)
[2022-01-24 09:31] LABS: Basophils % (A) 0 %; Eosinophils % (A) 0 %; HCT 31.1 % (34.0-46.0); HGB 9.7 gm/dL (11.4-16.0); Hypochromasia Moderate; Lymphocytes % (A) 12 %; MCH 26.6 pg (25.0-35.0); MCHC 31.3 g/dL (31.0-37.0); MCV 84.9 fL (80.0-100.0); Mean Platelet Volume 7.1; Monocytes # (A) 0.4 k/uL (0-1.0); Monocytes % (A) 5 %; Neutrophils % (A) 82 %; Platelet Count 443 k/uL (150-450); RBC 3.66 m/uL (3.80-5.40); RDW 13.4 % (11.5-15.5); WBC 8.5 k/uL (3.8-10.6)
[2022-01-24 09:48] LABS: African American GFR (CKD) >90 (>60 ml/min/1.73 sqM); Anion Gap 8 mmol/L; Blood Urea Nitrogen 10 mg/dL (7-17); Calcium 7.9 mg/dL (8.4-10.2); Carbon Dioxide 28 mmol/L (22-30); Chloride 98 mmol/L (98-107); Glucose 178 mg/dL (74-99); Non-African American GFR(CKD) >90 (>60 ml/min/1.73 sqM); Potassium 3.5 mmol/L (3.5-5.1); Sodium 134 mmol/L (137-145)
[2022-01-24 10:08] LABS: C Reactive Protein 17.6 mg/dL (<1.0)
--- NOTE | 2022-01-24 11:03 | P.PN ---
Subjective Progress Note Date: 01/24/22 Principal diagnosis: Crohn's exacerbation 61-year-old female with a history of Crohn's disease who follows with Dr. Younger presently taking mesalamine and Bentyl presented to the emergency department with complaints of abdominal pain and nonbloody diarrhea. She was noted to have elevated CRP and sed rate along with elevated white count. She's been afebrile. She was started on Zosyn and Solu-Medrol 20 mg every 8 hours yesterday. She is seen and examined today lying in bed. States abdominal pain and diarrhea somewhat improved however still has significant amount of pain is waxing and waning. Not collected at this time as apparently patient has been reporting that she has not had any bowel movements. WBC 8.5 hemoglobin 9.7 sed rate pending CRP 17.6 Objective - Vital Signs Vital signs: Vital Signs Temp 97.3 F L 01/24/22 06:56 Pulse 97 01/24/22 06:56 Resp 18 01/24/22 06:56 BP 107/66 01/24/22 06:56 Pulse Ox 92 L 01/24/22 06:56 Intake & Output 01/23/22 01/24/22 01/24/22 18:59 06:59 18:59 Other: # Voids 4 2 # Bowel Movements 6 - Exam General appearance: The patient is alert, oriented, appears in no acute distress. HET: Head is normocephalic and atraumatic. Conjunctiva pink. Sclera anicteric. Neck: Supple without lymphadenopathy. Abdomen: Soft, diffuse tenderness, nondistended with bowel sounds. No guarding or rigidity. Extremities: Normal skin color and turgor. No pedal edema Skin: No rashes, no jaundice Neurological: No focal deficits. Alert and oriented -3. - Labs CBC & Chem 7: 01/24/22 09:04 01/24/22 09:04 Labs: Abnormal Lab Results - Last 24 Hours (Table) 01/24/22 01/24/22 Range/Units 09:04 09:04 RBC 3.66 L (3.80-5.40) m/uL Hgb 9.7 L (11.4-16.0) gm/dL Hct 31.1 L (34.0-46.0) % Sodium 134 L (137-145) mmol/L Glucose 178 H (74-99) mg/dL Calcium 7.9 L (8.4-10.2) mg/dL C-Reactive Protein 17.6 H (<1.0) mg/dL Assessment and Plan (1) Crohn's disease Narrative/Plan: 61-year-old with a history of Crohn's disease who presented to the emergency department with complaints of abdominal pain for last 1 week duration which has been worsening in intensity and now associated with nausea and vomiting. Patient was noted to have elevated white count on admission at 15.8, sed rate 75 CRP 23. Patient currently is on mesalamine and Bentyl for Crohn's disease. Last colonoscopy was 2016 that showed ileocolitis and diverticulosis. She is having 2-3 loose bowel movements a day, nonbloody. Abdominal pains she states is an 8 out of 10 and is diffuse. She's had no further nausea or vomiting today. Will order stool studies. Likely etiology is a Crohn's flare. Will start IV antibiotics prophylactically for elevated white count as well as steroids. Current Visit: Yes Status: Acute Code(s): K50.90 - CROHN'S DISEASE, UNSPECIFIED, WITHOUT COMPLICATIONS SNOMED Code(s): 30666316 (2) COPD (chronic obstructive pulmonary disease) Current Visit: Yes Status: Acute Code(s): J44.9 - CHRONIC OBSTRUCTIVE PULMONARY DISEASE, UNSPECIFIED SNOMED Code(s): 17334868 (3) Abdominal pain Current Visit: Yes Status: Acute Code(s): R10.9 - UNSPECIFIED ABDOMINAL PAIN SNOMED Code(s): 24531195 (4) Atrial fibrillation Current Visit: No Status: Acute Code(s): I48.91 - UNSPECIFIED ATRIAL FIBR ILLATION SNOMED Code(s): 94218365 Plan: 1. Continue symptomatic and supportive care 2. Continue pain control, will add Toradol 15 mg every 6 hours 3. Continue Zosyn 4. Continue IV Solu-Medrol 20 mg every 8 hours. We'll consider transitioning to oral prednisone tomorrow symptoms improving. 5. Continue antiemetics as needed 6. Advance to full liquid diet 7. Stool studies ordered 8. No plans on endoscopic evaluation at this time. Recommend follow-up in 1-2 weeks to schedule outpatient colonoscopy. Thank you for this consultation, we will continue to follow. Dr. K Tumma I agree with the dictator's note, documented as a scribe by Kajal Napier.
[2022-01-24] MEDS: KETOROLAC 15 MG/ML 1 ML VIAL IVP SCH ×2 (11:48→17:25)
--- NOTE | 2022-01-24 13:09 | CDI ---
Documentation Clarification Form Date: 01/24/2022 12:51:58 PM From: Kelly River RN, CCDS Admit Date: 01/24/2022 08:49:00 AM Patient Name: Fabiola Giraldo Visit Number: [id number] Discharge Date: ATTENTION: The Clinical Documentation Specialists (CDI) and [facility] Coding Staff appreciate your assistance in clarifying documentation. Please respond to the clarification below the line at the bottom and electronically sign. The CDI & [facility] Coding staff will review the response and follow-up if needed. Please note: Queries are made part of the Legal Health Record. If you have any questions, please contact the author of this message via ITS. Dr. Demetrio Evans Your patient has history of shortness of breath chronically and is on 2/L of oxygen at home. Based on this information and the findings below, is there an additional diagnosis that is clinically appropriate for this patient? History/Risk Factors: COPD, Atrial Fibrillation CAD, Hypertension, Bipolar, depression, CVA Current every day smoker Home oxygen: 2/L NC Clinical Indicators: 61-year-old female present with abdominal pain. She was ruled in for Crohn's disease. She has COPD is on oxygen at 2/L NC 01/22 Vital signs: 109/77 111 14 98.5 81 % RA,, 117/72 134 98.6 93 % 2/L NC Treatment: Telemetry Monitoring Monitor O2 Sat's (titrate) Solu-Medrol 20 MG IV Q8 HRS Is there an additional diagnosis that is clinically appropriate for this patient? [ ] Acute Hypoxic Respiratory Failure (pO2 <60 mm Hg or SpO2 <91% on room air) [ ] Acute on Chronic Hypoxic Respiratory Failure [ ] Chronic Hypoxic Respiratory Failure [ ] Other Diagnosis, please specify [ ] Unable to determine (Template Last Revised: December 2020) MTDD
--- NOTE | 2022-01-24 13:31 | CDI ---
Documentation Clarification Form Date: 01/24/2022 01:09:36 PM From: Kelly River RN, CCDS Admit Date: 01/24/2022 08:49:00 AM Patient Name: Fabiola Giraldo Visit Number: [id number] Discharge Date: ATTENTION: The Clinical Documentation Specialists (CDI) and [facility] Coding Staff appreciate your assistance in clarifying documentation. Please respond to the clarification below the line at the bottom and electronically sign. The CDI & [facility] Coding staff will review the response and follow-up if needed. Please note: Queries are made part of the Legal Health Record. If you have any questions, please contact the author of this message via ITS. Dr. Demetrio Evans Atrial Fibrillation is documented in the past medical history. Additional clarification for the type of Atrial Fibrillation is requested. History/Risk Factors: COPD, Atrial Fibrillation CAD, Hypertension, Bipolar, depression, CVA Current every day smoker, Crohns disease Home oxygen: 2/L NC Clinical Indicators: 61-year-old female present with abdominal pain. She has a history of atrial fibrillation 01/22 Vital signs: 109/77 111 14 98.5 81 % RA,, 117/72 134 98.6 93 % 2/L NC Treatment: Telemetry Monitoring Toprol Xl 25MG PO Daily Please clarify the type of atrial fibrillation, if known: [ ] Chronic [ ] Permanent [ ] Paroxysmal [ ] Persistent [ ] Other, please specify [ ] Unable to determine (Template Last Revised: February 2021) MTDD
[2022-01-24 13:55] LABS: Erythrocyte Sedimentation Rate 58 mm/hr (0-20)
--- NOTE | 2022-01-24 14:20 | PN ---
PROGRESS NOTE DATE OF SERVICE: 01/24/2022 CHIEF COMPLAINT: Abdominal pain and Crohn's disease. HISTORY OF PRESENT ILLNESS: This lady feels a tiny bit better. She has been seen by Dr. Younger, who has adjusted her medication. She has had no fever, chills, vomiting, etc. PHYSICAL EXAMINATION: She remains pale. Chest is clear. The cardiac exam is normal. The abdomen is still distended and she has mild generalized tenderness throughout. Bowel sounds are present. IMPRESSION: Exacerbation of Crohn's disease. PLAN: Slowly advance diet and activity and continue to monitor her GI status with Gastroenterology. MMODL / IJN: [id number] /
[2022-01-24] MEDS: QUEtiapine 100 MG TAB PO SCH (21:57)
[2022-01-24] MEDS: QUEtiapine 400 MG TAB PO SCH (21:57)
[2022-01-25] MEDS: PIPERACILLIN-TAZOBACTAM 3.375 GM in SODIUM CHLORIDE 0.9% 100 ML IVPB SCH ×4 (00:05→23:36)
[2022-01-25] MEDS: methylPREDNISolone SOD SUCCI 40 MG/ML 1 ML VIAL IV SCH ×4 (00:05→23:38)
[2022-01-25] MEDS: KETOROLAC 15 MG/ML 1 ML VIAL IVP SCH ×5 (00:06→23:38)
[2022-01-25] MEDS: HYDROmorphone 0.5 MG/0.5 ML SYRINGE IVP PRN ×8 (01:20→23:36)
[2022-01-25] MEDS: SODIUM CHLORIDE 0.9% 1,000 ML IV SCH ×2 (05:13→17:27)
[2022-01-25] MEDS: METOPROLOL SUCCINATE (ER) 25 MG TAB.ER.24H PO SCH (07:41)
[2022-01-25] MEDS: BALSALAZIDE DISODIUM 750 MG CAPSULE PO SCH ×3 (07:41→22:14)
[2022-01-25] MEDS: levETIRAcetam 500 MG TAB PO SCH ×2 (07:41→22:15)
[2022-01-25] MEDS: DICYCLOMINE 10 MG CAP PO SCH ×2 (07:41→22:14)
[2022-01-25] MEDS: MULTIVITAMINS, THERA 1 EACH TAB PO SCH (07:41)
[2022-01-25] MEDS: LORATADINE 10 MG TAB PO SCH (07:41)
[2022-01-25] MEDS: PANTOPRAZOLE 40 MG TABLET PO SCH (07:41)
[2022-01-25] MEDS: NON FORMULARY DRUG (Buprenorphine Hcl/Naloxone Hcl [Suboxone 8 Mg-2 Mg Sl Film] 1 EACH Fil SUBLINGUAL SCH (09:12)
--- NOTE | 2022-01-25 10:55 | MISC ---
MISCELLANOUS REPORT QUERY: Unable to determine. MMODL / IJN: [id number] /
--- NOTE | 2022-01-25 10:58 | MISC ---
MISCELLANOUS REPORT QUERY: Atrial fibrillation. Unable to determine. MMODL / IJN: [id number] /
--- NOTE | 2022-01-25 16:40 | P.PN ---
Subjective Progress Note Date: 01/25/22 Principal diagnosis: Crohn's exacerbation 61-year-old female with a history of Crohn's disease who follows with Dr. Younger presently taking mesalamine and Bentyl presented to the emergency department with complaints of abdominal pain and nonbloody diarrhea. She was noted to have elevated CRP and sed rate along with elevated white count. She's been afebrile. She was started on Zosyn and Solu-Medrol 20 mg every 8 hours. She is seen and examined today lying in bed. Still having abdominal pain and non bloody diarrhea. Objective - Vital Signs Vital signs: Vital Signs Temp 98 F 01/25/22 14:26 Pulse 85 01/25/22 14:26 Resp 17 01/25/22 14:26 BP 148/74 01/25/22 14:26 Pulse Ox 94 L 01/25/22 14:26 Intake & Output 01/24/22 01/25/22 01/25/22 18:59 06:59 18:59 Other: # Voids 3 - Exam General appearance: The patient is alert, oriented, appears in no acute distress. HET: Head is normocephalic and atraumatic. Conjunctiva pink. Sclera anicteric. Neck: Supple without lymphadenopathy. Abdomen: Soft, diffuse tenderness, nondistended with bowel sounds. No guarding or rigidity. Extremities: Normal skin color and turgor. No pedal edema Skin: No rashes, no jaundice Neurological: No focal deficits. Alert and oriented -3. - Labs CBC & Chem 7: 01/24/22 09:04 01/24/22 09:04 Labs: Microbiology - Last 24 Hours (Table) 01/24/22 17:45 Stool Culture - Preliminary Stool Assessment and Plan (1) Crohn's disease Narrative/Plan: 61-year-old with a history of Crohn's disease who presented to the emergency department with complaints of abdominal pain for last 1 week duration which has been worsening in intensity and now associated with nausea and vomiting. Patient was noted to have elevated white count on admission at 15.8, sed rate 75 CRP 23. Patient currently is on mesalamine and Bentyl for Crohn's disease. Last colonoscopy was 2016 that showed ileocolitis and diverticulosis. She is having 2-3 loose bowel movements a day, nonbloody. Abdominal pains she states is an 8 out of 10 and is diffuse. She's had no further nausea or vomiting today. Will order stool studies. Likely etiology is a Crohn's flare. Will start IV antibiotics prophylactically for elevated white count as well as ster oids. Current Visit: Yes Status: Acute Code(s): K50.90 - CROHN'S DISEASE, UNSPECIFIED, WITHOUT COMPLICATIONS SNOMED Code(s): 72539996 (2) COPD (chronic obstructive pulmonary disease) Current Visit: Yes Status: Acute Code(s): J44.9 - CHRONIC OBSTRUCTIVE PULMONARY DISEASE, UNSPECIFIED SNOMED Code(s): 25046320 (3) Abdominal pain Current Visit: Yes Status: Acute Code(s): R10.9 - UNSPECIFIED ABDOMINAL PAIN SNOMED Code(s): 05809968 (4) Atrial fibrillation Current Visit: No Status: Acute Code(s): I48.91 - UNSPECIFIED ATRIAL FIBRILLATION SNOMED Code(s): 17921611 Plan: 1. Continue symptomatic and supportive care 2. Continue pain control, will add Toradol 15 mg every 6 hours 3. Continue Zosyn 4. Continue IV Solu-Medrol 20 mg every 8 hours. Transition to oral prednisone tomorrow. 5. Continue antiemetics as needed 6. Advance to low fat diet 7. Stool studies negative for Cdiff 8. No plans on endoscopic evaluation at this time. Recommend follow-up in 1-2 weeks to schedule possible outpatient colonoscopy. 9. Encourage ambulation Thank you for this consultation, we will continue to follow. Anticipate discharge tomorrow. Dr. Jack Younger I agree with the dictator's note, documented as a scribe by Kajal Napier.
--- NOTE | 2022-01-25 18:57 | PN ---
PROGRESS NOTE DATE OF SERVICE: 01/25/2022 CHIEF COMPLAINT: Abdominal pain and exacerbation of Crohn's disease. HISTORY OF PRESENT ILLNESS: This lady is doing a little bit better. Pain is slowly beginning to wane. She is not throwing up. She has had no fever or chills. PHYSICAL EXAMINATION: Chest is clear. Cardiac exam is normal. The abdomen is soft and slightly less tender. It is still somewhat distended. No masses or visceromegaly that can be appreciated. IMPRESSION: Exacerbation of Crohn's disease. PLAN: Continue to monitor her symptoms and white count, which is coming down, while her diet and activity are being advanced. MMODL / IJN: [id number] /
[2022-01-25] MEDS: QUEtiapine 100 MG TAB PO SCH (22:15)
[2022-01-25] MEDS: QUEtiapine 400 MG TAB PO SCH (22:15)
[2022-01-26] MEDS: HYDROmorphone 0.5 MG/0.5 ML SYRINGE IVP PRN ×3 (03:02→11:05)
[2022-01-26] MEDS: KETOROLAC 15 MG/ML 1 ML VIAL IVP SCH ×2 (05:55→10:57)
[2022-01-26 07:23] VITALS: BP 111/71; PULSE 76; RESP 16; TEMP 97.5
[2022-01-26] MEDS: methylPREDNISolone SOD SUCCI 40 MG/ML 1 ML VIAL IV SCH (07:51)
[2022-01-26] MEDS: BALSALAZIDE DISODIUM 750 MG CAPSULE PO SCH (08:22)
[2022-01-26] MEDS: PANTOPRAZOLE 40 MG TABLET PO SCH (08:23)
[2022-01-26] MEDS: METOPROLOL SUCCINATE (ER) 25 MG TAB.ER.24H PO SCH (08:23)
[2022-01-26] MEDS: DICYCLOMINE 10 MG CAP PO SCH (08:23)
[2022-01-26] MEDS: MULTIVITAMINS, THERA 1 EACH TAB PO SCH (08:23)
[2022-01-26] MEDS: LORATADINE 10 MG TAB PO SCH (08:23)
[2022-01-26] MEDS: levETIRAcetam 500 MG TAB PO SCH (08:23)
--- NOTE | 2022-01-26 08:27 | P.PN ---
Subjective Progress Note Date: 01/26/22 Principal diagnosis: Crohn's exacerbation 61-year-old female with a history of Crohn's disease who follows with Dr. Younger presently taking mesalamine and Bentyl presented to the emergency department with complaints of abdominal pain and nonbloody diarrhea. She was noted to have elevated CRP and sed rate along with elevated white count. She's been afebrile. She was started on Zosyn and Solu-Medrol 20 mg every 8 hours. She seen and examined. States she still having waxing and waning pain in her abdomen. Bowel movements are loose nonbloody, 2-4 day. Objective - Vital Signs Vital signs: Vital Signs Temp 97.5 F L 01/26/22 07: Pulse 76 01/26/22 07:22 Resp 16 01/26/22 07:22 BP 111/71 01/26/22 07:22 Pulse Ox 97 01/26/22 07:22 Intake & Output 01/25/22 01/26/22 01/26/22 18:59 06:59 18:59 Other: # Voids 3 3 # Bowel Movements 1 - Exam General appearance: The patient is alert, oriented, appears in no acute distress. HET: Head is normocephalic and atraumatic. Conjunctiva pink. Sclera anicteric. Neck: Supple without lymphadenopathy. Abdomen: Soft, diffuse tenderness, nondistended with bowel sounds. No guarding or rigidity. Extremities: Normal skin color and turgor. No pedal edema Skin: No rashes, no jaundice Neurological: No focal deficits. Alert and oriented -3. - Labs CBC & Chem 7: 01/24/22 09:04 01/24/22 09:04 Assessment and Plan (1) Crohn's disease Narrative/Plan: 61-year-old with a history of Crohn's disease who presented to the emergency department with complaints of abdominal pain for last 1 week duration which has been worsening in intensity and now associated with nausea and vomiting. Patient was noted to have elevated white count on admission at 15.8, sed rate 75 CRP 23. Patient currently is on mesalamine and Bentyl for Crohn's disease. Last colonoscopy was 2016 that showed ileocolitis and diverticulosis. She is having 2-3 loose bowel movements a day, nonbloody. Abdominal pains she states is an 8 out of 10 and is diffuse. She's had no further nausea or vomiting today. Will order stool studies. Likely etiology is a Crohn's flare. Will start IV antibiotics prophylactically for elevated white count as well as steroids. Current Visit: Yes Status: Acute Code(s): K50.90 - CROHN'S DISEASE, UNSPECIFIED, WITHOUT COMPLICATIONS SNOMED Code(s): 58091015 (2) COPD (chronic obstructive pulmonary disease) Current Visit: Yes Status: Acute Code(s): J44.9 - CHRONIC OBSTRUCTIVE PULMONARY DISEASE, UNSPECIFIED SNOMED Code(s): 18007690 (3) Abdominal pain Current Visit: Yes Status: Acute Code(s): R10.9 - UNSPECIFIED ABDOMINAL PAIN SNOMED Code(s): 92860141 (4) Atrial fibrillation Current Visit: No Status: Acute Code(s): I48.91 - UNSPECIFIED ATRIAL FIBRILLATION SNOMED Code(s): 79352884 Plan: 1. Continue symptomatic and supportive care 2. Continue pain control, will add Toradol 15 mg every 6 hours 3. Continue Zosyn 4. Discontinue IV Solu-Medrol. Transition to oral prednisone 40 mg daily with taper dose by 5 mg weekly. 5. Continue antiemetics as needed 6. Continue diet as tolerated 7. Stool studies negative for Cdiff 8. No plans on endoscopic evaluation at this time. Recommend follow-up in 1-2 weeks to schedule possible outpatient colonoscopy. 9. Encourage ambulation 10. Recommend transitioning from IV pain medication to oral pain medication 11. Patient is cleared by gastroenterology for discharge Thank you for allowing us to participate in the care of the patient, the GI service will sign off, gastroenterology will not be available at the hospital this weekend and through next week. If further evaluation by gastroenterology is required the patient will need transfer as per the primary team's discretion. Dr. Jack Younger I agree with the dictator's note, documented as a scribe by Kajal Napier.
[2022-01-26] MEDS ORDERED: predniSONE 20 MG TAB PO SCH (09:00)
[2022-01-26] MEDS: PIPERACILLIN-TAZOBACTAM 3.375 GM in SODIUM CHLORIDE 0.9% 100 ML IVPB SCH (09:39)
[2022-01-26] MEDS: SODIUM CHLORIDE 0.9% 1,000 ML IV SCH (09:45)
[2022-01-26] MEDS: NON FORMULARY DRUG (Buprenorphine Hcl/Naloxone Hcl [Suboxone 8 Mg-2 Mg Sl Film] 1 EACH Fil SUBLINGUAL SCH (09:45)
--- NOTE | 2022-01-26 19:06 | DS ---
DISCHARGE SUMMARY DATE OF DISCHARGE: 01/26/2022. CHIEF COMPLAINT: Abdominal pain. HISTORY OF PRESENT ILLNESS AND PHYSICAL EXAMINATION: Details of this lady's history and physical can be found in the initial workup. LABORATORY STUDIES: While she was in the hospital she had laboratory studies, details of which can be found in the laboratory section of her chart. COURSE IN THE HOSPITAL: After admission she was placed on bedrest, started intravenous fluids and analgesics. She was placed on steroids. She was seen and followed by Gastroenterology. It was felt that this episode was related to a flare of her Crohn's disease. She was improving and GI felt that she could go home on January 26. Before she could be discharged, she signed out AMA. FINAL DIAGNOSIS: 1. Exacerbation of Crohn's disease. 2. Chronic obstructive pulmonary disease. OPERATIONS: None. CONSULTATION: Gastroenterology. She is improved. TORIE / MAXX: [id number] /
== END 2022-01-26 13:58 | disposition left against medical advice (07) | DRG 387 ==
LOC: EC 19:11 → 6NMEDSUR 22:36 → 4SSUR 01-23 00:54 → OBSVTOIN 01-24 08:49
PROVIDERS: ADMIT Family Medicine; ATTEND Family Medicine
DX: K50.10 Crohn's disease of large intestine without complications (principal); E78.5 Hyperlipidemia, unspecified; F17.200 Nicotine dependence, unspecified, uncomplicated; F31.9 Bipolar disorder, unspecified; J44.9 Chronic obstructive pulmonary disease, unspecified; K21.9 Gastro-esophageal reflux disease without esophagitis; G40.909 Epilepsy, unspecified, not intractable, without status epilepticus; I10 Essential (primary) hypertension; I25.10 Atherosclerotic heart disease of native coronary artery without angina pectoris; M19.90 Unspecified osteoarthritis, unspecified site; I48.91 Unspecified atrial fibrillation; K57.30 Diverticulosis of large intestine without perforation or abscess without bleeding; Z80.0 Family history of malignant neoplasm of digestive organs; Z82.49 Family history of ischemic heart disease and other diseases of the circulatory system; Z83.3 Family history of diabetes mellitus; Z86.73 Personal history of transient ischemic attack (TIA), and cerebral infarction without residual deficits; Z87.01 Personal history of pneumonia (recurrent); Z88.1 Allergy status to other antibiotic agents; Z88.8 Allergy status to other drugs, medicaments and biological substances; E86.0 Dehydration; Z86.59 Personal history of other mental and behavioral disorders
CPT/HCPCS: 36415; 74177; 80048; 80053; 82150; 83605; 83690; 83993; 85025; 85652; 86140; 87045; 87046; 87324; 96361; 96374; 96375; 99285

== ENCOUNTER 2022-01-27 20:33 | Emergency (ER) | payer OTHER ==
[2022-01-27] MEDS ORDERED: PANTOPRAZOLE 40 MG/10 ML VIAL IVP STA (20:49)
[2022-01-27] MEDS ORDERED: ONDANSETRON 4 MG/2 ML VIAL IVP STA (20:49)
[2022-01-27] MEDS ORDERED: SODIUM CHLORIDE 0.9% 1,000 ML IV STA (20:49)
[2022-01-27] MEDS ORDERED: MORPHINE SULFATE 4 MG/ML SYRINGE IV STA (20:49)
[2022-01-27] MEDS ORDERED: SODIUM CHLORIDE 0.9% 500 ML 500 ML IV STA (20:49)
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
--- NOTE | 2022-01-27 21:09 | XR ---
EXAMINATION TYPE: XR abdomen acute w cxr DATE OF EXAM: 01/27/2022 COMPARISON: NONE HISTORY: Abdominal pain TECHNIQUE: 4 views FINDINGS: Heart and mediastinum are normal. Lungs are clear of infiltrate. Bowel gas pattern is fairly normal. No sign of intestinal obstruction or pneumoperitoneum. Fecal elham zen is normal. There is some mild gaseous distended small bowel loops without significant dilation. T here are no pathologic calcifications over the kidneys. Bony structures appear intact. IMPRESSION: Normal chest. Nonacute abdomen. Mild gaseous distended small bowel.
[2022-01-27 21:49] LABS: Basophils # (A) 0.1 k/uL (0-0.2); Basophils % (A) 1 %; Eosinophils # (A) 0.2 k/uL (0-0.7); Eosinophils % (A) 2 %; HCT 25.5 % (34.0-46.0); Hypochromasia Slight; Lymphocytes # (A) 3.4 k/uL (1.0-4.8); Lymphocytes % (A) 24 %; MCH 25.4 pg (25.0-35.0); MCHC 31.1 g/dL (31.0-37.0); MCV 81.5 fL (80.0-100.0); Mean Platelet Volume 6.8; Monocytes % (A) 7 %; Neutrophils # (A) 9.7 k/uL (1.3-7.7); Neutrophils % (A) 67 %; Platelet Count 518 k/uL (150-450); RBC 3.13 m/uL (3.80-5.40); RDW 14.7 % (11.5-15.5); WBC 14.4 k/uL (3.8-10.6)
[2022-01-27 21:54] LABS: HGB 7.9 gm/dL (11.4-16.0)
[2022-01-27 22:03] LABS: Partial Thromboplastin Time 20.4 sec (22.0-30.0); Prothrombin Time 11.2 sec (9.0-12.0)
[2022-01-27 22:06] LABS: ALT 12 U/L (4-34); AST 22 U/L (14-36); African American GFR (CKD) >90 (>60 ml/min/1.73 sqM); Albumin 2.4 g/dL (3.5-5.0); Alkaline Phosphatase 51 U/L (38-126); Anion Gap 3 mmol/L; Blood Urea Nitrogen 7 mg/dL (7-17); C Reactive Protein 5.6 mg/dL (<1.0); Calcium 7.5 mg/dL (8.4-10.2); Carbon Dioxide 28 mmol/L (22-30); Chloride 101 mmol/L (98-107); Glucose 99 mg/dL (74-99); Lipase 253 U/L (23-300); Non-African American GFR(CKD) >90 (>60 ml/min/1.73 sqM); Potassium 3.1 mmol/L (3.5-5.1); Sodium 132 mmol/L (137-145); Total Bilirubin 0.4 mg/dL (0.2-1.3); Total Protein 5.1 g/dL (6.3-8.2)
[2022-01-27 22:42] LABS: Erythrocyte Sedimentation Rate 44 mm/hr (0-20)
[2022-01-27] MEDS ORDERED: Potassium Replacement Protocol 1 EACH MISC MISCELLANE PRN (22:53)
[2022-01-27] MEDS ORDERED: POTASSIUM CHLORIDE 10 MEQ in WATER FOR INJECTION 1 100ML.BAG IVPB SCH (23:00)
[2022-01-27] MEDS ORDERED: ACETAMINOPHEN IV (For NPO) 1,000 MG in EMPTY BAG 1 BAG IVPB ONE (23:15)
[2022-01-27] MEDS ORDERED: PIPERACILLIN-TAZOBACTAM 3.375 GM in SODIUM CHLORIDE 0.9% 100 ML IVPB STA (23:16)
[2022-01-28 00:52] LABS: Appearance,Urine Clear (Clear); Bacteria,Urine Occasional /hpf; Bilirubin,Urine Negative (Negative); Blood,Urine Moderate (Negative); Color,Urine Yellow; Glucose,Urine (UA) Negative (Negative); Hyaline Casts,Urine 1 /lpf (0-2); Ketones,Urine Negative (Negative); Leukocyte Esterase,Urine Large (Negative); Mucus,Urine Rare /hpf; Nitrite,Urine Negative (Negative); Protein,Urine Negative (Negative); RBC,Urine 1 /hpf (0-5); Specific Gravity,Urine 1.007 (1.001-1.035); Squamous Epithelial Cell,Urine 4 /hpf (0-4); Urobilinogen,Urine <2.0 mg/dL (<2.0); WBC,Urine 4 /hpf (0-5)
[2022-01-28 01:28] VITALS: BP 92/50; PULSE 85; RESP 18; TEMP 97.8
== END 2022-01-28 00:20 | disposition other institution (70) ==
LOC: EC 20:33
DX: K50.911 Crohn's disease, unspecified, with rectal bleeding (principal); E87.6 Hypokalemia; R55 Syncope and collapse; F17.200 Nicotine dependence, unspecified, uncomplicated; I10 Essential (primary) hypertension; I25.10 Atherosclerotic heart disease of native coronary artery without angina pectoris; I48.91 Unspecified atrial fibrillation; J44.9 Chronic obstructive pulmonary disease, unspecified; K21.9 Gastro-esophageal reflux disease without esophagitis; M19.90 Unspecified osteoarthritis, unspecified site; Z86.73 Personal history of transient ischemic attack (TIA), and cerebral infarction without residual deficits; Z88.1 Allergy status to other antibiotic agents; Z90.49 Acquired absence of other specified parts of digestive tract; Z20.822 Contact with and (suspected) exposure to COVID-19; Z88.8 Allergy status to other drugs, medicaments and biological substances; Z79.899 Other long term (current) drug therapy
CPT/HCPCS: 99285; 96365; 96375 ×2; 96361; 36415; 93005; 86900; 86901; 80053; 85652; 83605; 83690; 83735; 84484; 85025; 85610; 85730; 86850; 86140; 82272; 81001; 87324; 87045; 83630; 87046; 87635; 74022; J2543; J2270; J2405; J3480; J0131; C9113

== ENCOUNTER 2022-07-01 10:03 | Observation (INO) | payer OTHER ==
[2022-07-01] MEDS ORDERED: IPRATROPIUM 0.5 MG/2.5 ML NEBU INHALATION STA (10:11)
[2022-07-01] MEDS ORDERED: ALBUTEROL NEBULIZED 2.5 MG/3 ML INHALATION STA (10:11)
[2022-07-01] MEDS ORDERED: methylPREDNISolone SOD SUCCI 125 MG/2 ML VIAL IV STA (10:11)
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
[2022-07-01 10:41] LABS: Basophils # (A) 0.1 k/uL (0-0.2); Basophils % (A) 0 %; Eosinophils # (A) 0.2 k/uL (0-0.7); Eosinophils % (A) 1 %; HCT 35.1 % (34.0-46.0); HGB 11.1 gm/dL (11.4-16.0); Lymphocytes % (A) 13 %; MCH 24.8 pg (25.0-35.0); MCHC 31.6 g/dL (31.0-37.0); MCV 78.6 fL (80.0-100.0); Mean Platelet Volume 7.1; Monocytes # (A) 0.8 k/uL (0-1.0); Monocytes % (A) 5 %; Neutrophils # (A) 12.1 k/uL (1.3-7.7); Neutrophils % (A) 79 %; Platelet Count 358 k/uL (150-450); RBC 4.47 m/uL (3.80-5.40); RDW 15.8 % (11.5-15.5); WBC 15.2 k/uL (3.8-10.6)
--- NOTE | 2022-07-01 10:45 | XR ---
EXAMINATION TYPE: XR chest 2V DATE OF EXAM: 07/01/2022 COMPARISON: 12/23/2020 HISTORY: Shortness of breath TECHNIQUE: Frontal and lateral views of the chest are obtained. FINDINGS: Scattered senescent parenchymal changes noted. Hyperinflation compatible with COPD. No evidence for infiltrate. No evidence for atelectasis. Heart size is stable. Mediastinal structures are stable and grossly unremarkable. No evidence for hilar prominence. Degenerative changes dorsal spine. IMPRESSION: 1. No evidence for acute pulmonary disease.
[2022-07-01] MEDS ORDERED: cefTRIAXone IN SWFI 1,000 MG/10 ML SYRINGE IVP STA (10:50)
[2022-07-01 10:52] LABS: ALT 12 U/L (4-34); AST 25 U/L (14-36); African American GFR (CKD) >90 (>60 ml/min/1.73 sqM); Albumin 3.7 g/dL (3.5-5.0); Alkaline Phosphatase 87 U/L (38-126); Anion Gap 9 mmol/L; Blood Urea Nitrogen 5 mg/dL (7-17); Calcium 8.8 mg/dL (8.4-10.2); Carbon Dioxide 30 mmol/L (22-30); Chloride 94 mmol/L (98-107); Glucose 139 mg/dL (74-99); Magnesium 1.3 mg/dL (1.6-2.3); Non-African American GFR(CKD) >90 (>60 ml/min/1.73 sqM); Potassium 3.6 mmol/L (3.5-5.1); Sodium 133 mmol/L (137-145); Total Bilirubin 0.4 mg/dL (0.2-1.3); Total Protein 6.4 g/dL (6.3-8.2)
[2022-07-01] MEDS ORDERED: ONDANSETRON 4 MG/2 ML VIAL IVP STA (11:05)
[2022-07-01 11:17] LABS: Partial Thromboplastin Time 26.2 sec (22.0-30.0); Prothrombin Time 10.5 sec (9.0-12.0)
[2022-07-01] MEDS ORDERED: QUEtiapine 400 MG TAB PO STA (11:52)
[2022-07-01] MEDS ORDERED: NALOXONE 0.4 MG/ML 1 ML VIAL IVP PRN ×2 (11:56→15:20)
[2022-07-01] MEDS: MAGNESIUM SULFATE-D5W PMX 1 GM in DEXTROSE/WATER 1 100ML.BAG IVPB SCH ×2 (12:02→13:16)
[2022-07-01] MEDS: methylPREDNISolone SOD SUCCI 125 MG/2 ML VIAL IV SCH ×2 (13:00→17:28)
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
[2022-07-01] MEDS: IPRATROPIUM-ALBUTEROL 3 ML NEB INHALATION SCH ×3 (13:22→19:05)
[2022-07-01] MEDS ORDERED: ACETAMINOPHEN TAB 325 MG TAB PO PRN (15:20)
[2022-07-01] MEDS ORDERED: IPRATROPIUM-ALBUTEROL 3 ML NEB INHALATION PRN (15:24)
[2022-07-01] MEDS ORDERED: FLUTICASONE 50MCG/SPRAY NASAL 16GM EA NOSTRIL PRN (15:51)
[2022-07-01] MEDS: HEPARIN SODIUM,PORCINE/PF 5,000 UNIT/0.5 ML SYRINGE SQ SCH (16:36)
[2022-07-01] MEDS: SYMBICORT 160-4.5 MCG INHALER INHALATION SCH (19:05)
[2022-07-01] MEDS: DOXYCYCLINE 100 MG CAP PO SCH (20:30)
[2022-07-01] MEDS: levETIRAcetam 500 MG TAB PO SCH (20:30)
[2022-07-01] MEDS: HYDROcodone/APAP 5-325MG 1 EACH TAB PO PRN (20:30)
[2022-07-01] MEDS ORDERED: QUEtiapine 400 MG TAB PO SCH (21:00)
[2022-07-02] MEDS: HEPARIN SODIUM,PORCINE/PF 5,000 UNIT/0.5 ML SYRINGE SQ SCH ×2 (00:21→07:28)
[2022-07-02] MEDS: HYDROcodone/APAP 5-325MG 1 EACH TAB PO PRN ×2 (00:22→05:01)
[2022-07-02] MEDS: methylPREDNISolone SOD SUCCI 125 MG/2 ML VIAL IV SCH ×2 (00:22→05:01)
[2022-07-02 04:16] VITALS: TEMP 97.6
[2022-07-02] MEDS: levETIRAcetam 500 MG TAB PO SCH (07:28)
[2022-07-02] MEDS: DOXYCYCLINE 100 MG CAP PO SCH (07:29)
[2022-07-02] MEDS ORDERED: PANTOPRAZOLE 40 MG TABLET PO SCH (07:30)
[2022-07-02] MEDS: SYMBICORT 160-4.5 MCG INHALER INHALATION SCH (08:21)
[2022-07-02] MEDS: IPRATROPIUM-ALBUTEROL 3 ML NEB INHALATION SCH (08:21)
[2022-07-02 08:38] LABS: HCT 32.2 % (37.2-46.3); HGB 10.3 g/dL (12.0-15.0); MCH 25.1 pg (27.0-32.0); MCV 78.3 fL (80.0-97.0); Mean Platelet Volume 10.5 fL (9.5-12.2); NRBC Per 100 WBC 0 /100 WBCS (0.0-0.0); Platelet Count 360 X 10*3/uL (140-440); RBC 4.11 X 10*6/uL (4.10-5.20); RDW 16.2 % (11.5-14.5); WBC 6.08 X 10*3/uL (4.50-10.00)
[2022-07-02 08:53] VITALS: BP 104/60; PULSE 96; RESP 18
[2022-07-02 08:59] LABS: ALT 11 U/L (8-44); AST 17 U/L (13-35); African American GFR (CKD) 106.1 (60.0-200.0); Albumin 3.6 g/dL (3.8-4.9); Albumin/Globulin Ratio 1.38 (1.60-3.17); Alkaline Phosphatase 71 U/L (41-126); BUN/Creat Ratio 12.71 Ratio (12.00-20.00); Blood Urea Nitrogen 8.9 mg/dL (9.0-27.0); Calcium 9.2 mg/dL (8.7-10.3); Carbon Dioxide 30.2 mmol/L (20.0-27.5); Chloride 96 mmol/L (96-109); Globulin 2.6 g/dL (1.6-3.3); Glucose 238 mg/dL (70-110); Magnesium 1.9 mg/dL (1.5-2.4); Non-African American GFR(CKD) 91.6 (60.0-200.0); Potassium 4.2 mmol/L (3.5-5.5); Sodium 138 mmol/L (135-145); Total Bilirubin <0.15 mg/dL (0.30-1.20); Total Protein 6.2 g/dL (6.2-8.2)
[2022-07-02] MEDS ORDERED: METOPROLOL SUCCINATE (ER) 25 MG TAB.ER.24H PO SCH (09:00)
[2022-07-02] MEDS ORDERED: NICOTINE 21MG/24HR PATCH TRANSDERM SCH (09:00)
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
[2022-07-02] MEDS ORDERED: predniSONE 10 MG TAB PO SCH (10:00)
--- NOTE | 2022-07-02 10:37 | P.DS ---
Providers Date of admission: 07/01/22 12:14 Expected date of discharge: 07/02/22 Attending physician: Bridget Sood MD Consults: 07/01/22 15:21 Consult Physician Routine Consulting Provider: Khadijah Chaudhary Consult Reason/Comments: COPD exacerbation Do you want consulting provider notified?: Yes Primary care physician: Stated None Hospital Course: Discharge Diagnosis: COPD with acute exacerbation. Patient being discharged home on doxycycline as well as prednisone taper. Patient was instructed to continue with scheduled nebulizer treatments 4 times daily and as needed throughout the next week. After 1 week she was instructed that she may discontinue scheduled nebulizer treatments and just resume using nebulizer treatments only as needed. Patient to also continue with Bevespi inhaler 2 puffs twice daily and was strongly encouraged to stop smoking. Sinus tachycardia secondary to above, resolved. Continued nicotine dependence, Patient was educated on the importance of smoking cessation and risks of continued use. Hypomagnesemia, resolved. Hypertension. Monitor vital signs and continue daily medication regimen with metoprolol Seizure disorder. Seizure precautions and patient to continue daily medication regimen with Keppra 1000 mg twice daily. Crohn's disease, GERD, and reported weight loss. Continue daily medication regimen with Protonix. Follow up as scheduled in July with your relay motorman for your Crohn's disease and reported weight loss. Anxiety, depression, and bipolar disorder. Continue medication regimen with Seroquel. One-month prescription refill was provided per patient's request. Hyponatremia, resolved Leukocytosis, resolved Iron deficiency anemia, stable with hemoglobin of 10.3 on discharge. Hospital Course: Patient is a very pleasant 62-year-old female with a past medical history of COPD and continued nicotine dependence reportedly smoking one pack of cigarettes daily, coronary artery disease, paroxysmal atrial fibrillation not on anticoagulation, hypertension, hyperlipidemia, seizure disorder, anxiety, bipolar, and depression. She presented to the emergency department with a chief complaint of shortness of breath. Patient states shortly after awakening and skipping her morning breathing treatment, she had a cigarette and became significantly short of breath. Patient reports this did not improve and she continued to have significant wheezing and shortness of breath so she came to the emergency department for evaluation. Patient denies having any recent infections or exposure to known ill contacts, fevers, chills, headache, lightheadedness, dizziness, changes in vision or hearing, chest pain or palpita tions, abdominal pain, nausea, vomiting, or experiencing any numbness/tingling/weakness in her extremities. In the emergency department patient was found to be hypoxic and required oxygen supplementation. Patient maintaining SpO2 of 95% on 2 L. Heart rate was tachycardic and 120s. CBC revealing leukocytosis with WBC count of 15.2 and hypomagnesemia with magnesium of 1.3, replaced. Patient was admitted under our services with consultation to pulmonology. She was monitored overnight and condition significantly improved. Leukocytosis resolved with morning labs revealing WBC count of 6.08, hemoglobin stable at 10.3, hyponatremia resolved with repeat sodium of 138, and hypomagnesemia also resolved with repeat magnesium of 1.9. Patient maintaining SpO2 of 97% on 2 L and on room air 95%. She underwent evaluation by business development associate, and pulmonary recommending to resume home medications and follow- up outpatient in their office in 1 week. Patient is medically stable for discharge at this time. Patient to follow-up outpatient as discussed with primary care provider, business development associate, and relay motorman. Patient requested contact information for a new local PCP and this was provided. Physical exam: Vital signs reviewed and stable. General: Nontoxic, no distress and appears stated age. Derm: Skin warm and dry, normal coloration for ethnicity. Head: Atraumatic, normocephalic and symmetric. Eyes: EOMs intact, no lid lag, and anicteric sclera Mouth: no lip lesions, mucus membranes moist Cardiovascular: regular rate and rhythm with normal S1S2, no murmur, positive posterior tibial pulses bilaterally, and cap refill < 2 seconds. Lungs: Respirations even, regular, and unlabored on room air. Lungs soft expiratory wheezes bilaterally, no rales, rhonchi, or crackles noted. Abdominal: soft, nontender to palpation, no guarding, no appreciable organomegaly Ext: ROM intact. No gross muscle atrophy, no edema, no contractures Neuro: Speech clear, face symmetrical and CN II-XII grossly intact with no noted focal neuro deficits Psych: Alert and oriented to person, place, time, and situation. Appropriate and pleasant affect. A total of 33 minutes of time were spent preparing this complex discharge summary. Pt was discharged on 07/02/22 at 10:36 AM. Patient Condition at Discharge: Stable Plan - Discharge Summary Discharge Rx Participant: Yes New Discharge Prescriptions: New predniSONE See Taper PO DIRECTED 12 Days #30 tab Doxycycline [Vibramycin] 100 mg PO BID 6 Days #12 cap Continue Metoprolol Succinate (ER) [Toprol XL] 25 mg PO DAILY Buprenorphine HCl/Naloxone HCl [Suboxone 8 mg-2 mg Sl Film] 1 film SL DAILY Loratadine [Claritin] 10 mg PO DAILY Glycopyrrolate/Formoterol Fum [Bevespi Aerosphere Inhaler] 2 puff INHALATION RT-BID Fluticasone Nasal [place] [Flonase Nasal [place]] 1 spr EA NOSTRIL DAILY PRN PRN Reason: Allergy Symptoms Albuterol Sulfate [Albuterol Sulfate Hfa] 2 puff INHALATION RT-Q6H PRN PRN Reason: Shortness Of Breath levETIRAcetam [Keppra] 1,000 mg PO BID QUEtiapine [SEROquel] 400 mg PO HS 30 Days #30 tab Pantoprazole Sodium [Protonix] 40 mg PO -[facility] Discharge Medication List Metoprolol Succinate (ER) [Toprol XL] 25 mg PO DAILY 02/21/18 [History] Buprenorphine HCl/Naloxone HCl [Suboxone 8 mg-2 mg Sl Film] 1 film SL DAILY 04/15/18 [History] Loratadine [Claritin] 10 mg PO DAILY 11/09/18 [History] Glycopyrrolate/Formoterol Fum [Bevespi Aerosphere Inhaler] 2 puff INHALATION RT- BID 11/24/19 [History] Albuterol Sulfate [Albuterol Sulfate Hfa] 2 puff INHALATION RT-Q6H PRN 03/27/20 [History] Fluticasone Nasal [place] [Flonase Nasal [place]] 1 spr EA NOSTRIL DAILY PRN 03/27/20 [History] levETIRAcetam [Keppra] 1,000 mg PO BID 10/16/20 [History] Pantoprazole Sodium [Protonix] 40 mg PO -KT 01/22/22 [History] Doxycycline [Vibramycin] 100 mg PO BID 6 Days #12 cap 07/02/22 [Rx] QUEtiapine [SEROquel] 400 mg PO HS 30 Days #30 tab 07/02/22 [Rx] predniSONE See Taper PO DIRECTED 12 Days #30 tab 07/02/22 [Rx] Follow up Appointment(s)/Referral(s): Ni Torres MD [STAFF PHYSICIAN] - 3 Days (Establish care with a PCP) Jacinto Goldsmith DO [Doctor of Osteopathic Medicine] - 1 Week Patient Instructions/Handouts: How to Stop Smoking (DC), COPD (Chronic Obstructive Pulmonary Disease) (DC), Chronic Lung Disease and Infection Pr evention (DC), Pulmonary Rehabilitation (DC) Activity/Diet/Wound Care/Special Instructions: Activity: As tolerated. Take breaks as needed. Diet: Heart healthy and carb consistent diet. Avoid salts, or foods with hidden salts such as canned or boxed foods and frozen dinners. Extra salt makes your heart work harder and traps the fluid in your body for longer. Special Instructions: Take all of your medications as directed and remember to keep all of your doctor's appointments and follow-up as needed. Highly recommend smoking cessation and follow-up with your business development associate in 1 week. Follow up as scheduled in July with your relay motorman for your Crohn's disease and reported weight loss. Thank you for allowing us to participate in your care, it was truly a pleasure having you for our patient!!! Discharge Disposition: HOME SELF-CARE
== END 2022-07-02 11:33 | disposition home or self-care (01) ==
LOC: EC 10:03 → 6NMEDSUR 12:14
PROVIDERS: ADMIT Internal Medicine; ATTEND Internal Medicine
DX: J44.1 Chronic obstructive pulmonary disease with (acute) exacerbation (principal); J96.21 Acute and chronic respiratory failure with hypoxia; F17.210 Nicotine dependence, cigarettes, uncomplicated; E83.42 Hypomagnesemia; E87.1 Hypo-osmolality and hyponatremia; D50.9 Iron deficiency anemia, unspecified; I10 Essential (primary) hypertension; D72.829 Elevated white blood cell count, unspecified; I25.10 Atherosclerotic heart disease of native coronary artery without angina pectoris; K21.9 Gastro-esophageal reflux disease without esophagitis; E78.5 Hyperlipidemia, unspecified; I48.0 Paroxysmal atrial fibrillation; G40.909 Epilepsy, unspecified, not intractable, without status epilepticus; M19.90 Unspecified osteoarthritis, unspecified site; K50.90 Crohn's disease, unspecified, without complications; F31.9 Bipolar disorder, unspecified; F41.9 Anxiety disorder, unspecified; R91.1 Solitary pulmonary nodule; R63.4 Abnormal weight loss; Z68.1 Body mass index [BMI] 19.9 or less, adult; Z79.899 Other long term (current) drug therapy; Z88.1 Allergy status to other antibiotic agents; Z88.8 Allergy status to other drugs, medicaments and biological substances; Z86.73 Personal history of transient ischemic attack (TIA), and cerebral infarction without residual deficits; Z87.01 Personal history of pneumonia (recurrent); Z90.49 Acquired absence of other specified parts of digestive tract; Z90.79 Acquired absence of other genital organ(s); Z91.410 Personal history of adult physical and sexual abuse; Z98.890 Other specified postprocedural states; Z71.6 Tobacco abuse counseling; Z83.3 Family history of diabetes mellitus; Z82.49 Family history of ischemic heart disease and other diseases of the circulatory system; Z80.0 Family history of malignant neoplasm of digestive organs; Z83.49 Family history of other endocrine, nutritional and metabolic diseases; Z82.0 Family history of epilepsy and other diseases of the nervous system
CPT/HCPCS: 96376 ×2; 96372 ×2; 96365; 96366; 96375; 99285; 36415; 94640; 93005; 80053 ×2; 83605; 83735 ×2; 84484; 85025; 85027; 85610; 85730; 87040; 71046; G0378 ×2; S4990; J2930 ×2; J2405; J0696; J3475; J7512; J1644 ×2

== ENCOUNTER 2022-07-27 14:13 | Emergency (ER) | payer OTHER ==
[2022-07-27 14:25] VITALS: BP 122/78; RESP 22; TEMP 98.7
[2022-07-27] MEDS ORDERED: SODIUM CHLORIDE 0.9% 1,000 ML IV ONE (15:03)
[2022-07-27] MEDS ORDERED: ALBUTEROL NEBULIZED 2.5 MG/3 ML INHALATION STA (15:21)
[2022-07-27] MEDS ORDERED: IPRATROPIUM-ALBUTEROL 3 ML NEB INHALATION STA (15:21)
[2022-07-27] MEDS ORDERED: MORPHINE SULFATE 4 MG/ML SYRINGE IVP STA (15:21)
[2022-07-27] MEDS ORDERED: DEXAMETHASONE SOD PHOSPHATE 10 MG/ML 1 ML VIAL IV STA (15:21)
[2022-07-27 15:25] LABS: Basophils % (A) 0 %; Eosinophils # (A) 0.1 k/uL (0-0.7); Eosinophils % (A) 1 %; HCT 30.1 % (34.0-46.0); HGB 9.9 gm/dL (11.4-16.0); Lymphocytes # (A) 1.5 k/uL (1.0-4.8); Lymphocytes % (A) 11 %; MCH 25.6 pg (25.0-35.0); MCV 77.5 fL (80.0-100.0); Mean Platelet Volume 7.4; Monocytes # (A) 0.9 k/uL (0-1.0); Monocytes % (A) 6 %; Neutrophils # (A) 11.3 k/uL (1.3-7.7); Neutrophils % (A) 80 %; Platelet Count 486 k/uL (150-450); RBC 3.88 m/uL (3.80-5.40); RDW 14.2 % (11.5-15.5); WBC 14.1 k/uL (3.8-10.6)
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
[2022-07-27 15:33] LABS: ALT 11 U/L (4-34); AST 18 U/L (14-36); African American GFR (CKD) >90 (>60 ml/min/1.73 sqM); Albumin 2.8 g/dL (3.5-5.0); Alcohol <10 mg/dL; Alkaline Phosphatase 81 U/L (38-126); Anion Gap 8 mmol/L; Blood Urea Nitrogen 7 mg/dL (7-17); Carbon Dioxide 30 mmol/L (22-30); Chloride 90 mmol/L (98-107); Glucose 154 mg/dL (74-99); Magnesium 1.5 mg/dL (1.6-2.3); Non-African American GFR(CKD) >90 (>60 ml/min/1.73 sqM); Potassium 3.6 mmol/L (3.5-5.1); Sodium 128 mmol/L (137-145); Total Bilirubin 0.3 mg/dL (0.2-1.3); Total Protein 5.5 g/dL (6.3-8.2)
[2022-07-27 15:44] LABS: Partial Thromboplastin Time 29.2 sec (22.0-30.0)
--- NOTE | 2022-07-27 15:57 | XR ---
EXAMINATION TYPE: XR chest 2V DATE OF EXAM: 07/27/2022 COMPARISON: Chest x-ray 07/01/2022 HISTORY: Shortness of breath TECHNIQUE: Frontal and lateral views of the chest are obtained. FINDINGS: There is no focal air space opacity, pleural effusion, or pneumothorax seen. Prominent bogdan g volumes may be indicative of underlying COPD. There is overlying artifact. The cardiac silhouette s ize is stable, heart is small. The osseous structures are stable, wedge compression deformity in th e midthoracic spine is again noted. IMPRESSION: No acute cardiopulmonary process.
[2022-07-27 16:31] VITALS: PULSE 100
== END 2022-07-27 17:25 | disposition left against medical advice (07) ==
LOC: EC 14:13
DX: R10.9 Unspecified abdominal pain (principal); J44.9 Chronic obstructive pulmonary disease, unspecified; E83.42 Hypomagnesemia; I48.91 Unspecified atrial fibrillation; I25.10 Atherosclerotic heart disease of native coronary artery without angina pectoris; K21.9 Gastro-esophageal reflux disease without esophagitis; E78.5 Hyperlipidemia, unspecified; I10 Essential (primary) hypertension; M19.90 Unspecified osteoarthritis, unspecified site; Z88.1 Allergy status to other antibiotic agents; Z88.8 Allergy status to other drugs, medicaments and biological substances; Z79.899 Other long term (current) drug therapy; Z53.29 Procedure and treatment not carried out because of patient's decision for other reasons
CPT/HCPCS: 36415; 94640; 80053; 83605; 83735; 85025; 85610; 85730; 71046; 99285; 96374; 96375; 96361; G0480; J2270; J1100; 80320

== ENCOUNTER 2022-10-04 11:49 | Emergency (ER) | payer OTHER ==
[2022-10-04 12:31] LABS: VBG PH 7.43 (7.31-7.41)
[2022-10-04 12:34] LABS: Anisocytosis Slight; Basophils % (A) 1 %; Eosinophils % (A) 1 %; HCT 36.2 % (34.0-46.0); HGB 12.1 gm/dL (11.4-16.0); Lymphocytes # (A) 1.6 k/uL (1.0-4.8); Lymphocytes % (A) 42 %; MCH 26.8 pg (25.0-35.0); MCHC 33.5 g/dL (31.0-37.0); MCV 79.9 fL (80.0-100.0); Mean Platelet Volume 7.8; Microcytosis Slight; Monocytes # (A) 0.3 k/uL (0-1.0); Monocytes % (A) 7 %; Neutrophils # (A) 1.8 k/uL (1.3-7.7); Neutrophils % (A) 47 %; Platelet Count 278 k/uL (150-450); RBC 4.53 m/uL (3.80-5.40); RDW 17.2 % (11.5-15.5); WBC 3.8 k/uL (3.8-10.6)
--- NOTE | 2022-10-04 12:43 | XR ---
EXAMINATION TYPE: XR chest 2V DATE OF EXAM: 10/04/2022 COMPARISON: 08/06/2022 INDICATION: Difficulty breathing TECHNIQUE: Frontal and lateral views of the chest are obtained. FINDINGS: The heart size is normal. The pulmonary vasculature is normal. The lungs are clear. There is flattening of the diaphragms. Mild increased AP diameter is present. H yperplasia is present compatible COPD. IMPRESSION: 1. No acute pulmonary process. 2. COPD.
[2022-10-04 12:58] LABS: INR 0.9 (<1.2); Partial Thromboplastin Time 27.3 sec (22.0-30.0); Prothrombin Time 9.6 sec (9.0-12.0)
[2022-10-04 13:00] LABS: ALT 16 U/L (4-34); AST 31 U/L (14-36); African American GFR (CKD) >90 (>60 ml/min/1.73 sqM); Albumin 3.7 g/dL (3.5-5.0); Alkaline Phosphatase 101 U/L (38-126); Anion Gap 7 mmol/L; Blood Urea Nitrogen 3 mg/dL (7-17); Calcium 8.9 mg/dL (8.4-10.2); Carbon Dioxide 29 mmol/L (22-30); Chloride 101 mmol/L (98-107); Glucose 122 mg/dL (74-99); Magnesium 1.5 mg/dL (1.6-2.3); Non-African American GFR(CKD) >90 (>60 ml/min/1.73 sqM); Potassium 4.1 mmol/L (3.5-5.1); Sodium 137 mmol/L (137-145); Total Bilirubin 0.3 mg/dL (0.2-1.3); Total Protein 7.2 g/dL (6.3-8.2)
[2022-10-04] MEDS ORDERED: MORPHINE SULFATE 4 MG/ML SYRINGE IVP STA (13:29)
[2022-10-04] MEDS ORDERED: MAGNESIUM OXIDE 400 MG TAB PO STA (13:31)
[2022-10-04] MEDS ORDERED: methylPREDNISolone SOD SUCCI 125 MG/2 ML VIAL IV STA (13:31)
[2022-10-04] MEDS ORDERED: IPRATROPIUM-ALBUTEROL 3 ML NEB INHALATION STA (13:32)
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
[2022-10-04] MEDS ORDERED: QUEtiapine 400 MG TAB PO STA (13:57)
[2022-10-04 14:33] VITALS: BP 138/74; PULSE 93; RESP 20; TEMP 98.2
== END 2022-10-04 14:33 | disposition home or self-care (01) ==
LOC: EC 11:49
DX: J44.1 Chronic obstructive pulmonary disease with (acute) exacerbation (principal); I10 Essential (primary) hypertension; I25.10 Atherosclerotic heart disease of native coronary artery without angina pectoris; I48.91 Unspecified atrial fibrillation; K21.9 Gastro-esophageal reflux disease without esophagitis; M19.90 Unspecified osteoarthritis, unspecified site; E78.5 Hyperlipidemia, unspecified; F41.9 Anxiety disorder, unspecified; F31.9 Bipolar disorder, unspecified; F17.200 Nicotine dependence, unspecified, uncomplicated; Z79.899 Other long term (current) drug therapy; Z79.891 Long term (current) use of opiate analgesic; Z88.1 Allergy status to other antibiotic agents
CPT/HCPCS: 36415; 93005; 83880; 80053; 82803; 83605; 83735; 84484; 85025; 85610; 85730; 71046; 99285; 96374; 96375; J2270; J2930

== ENCOUNTER 2022-12-23 12:50 | Emergency (ER) | payer OTHER ==
[2022-12-23] MEDS ORDERED: methylPREDNISolone SOD SUCCI 125 MG/2 ML VIAL IV STA (12:53)
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
[2022-12-23 13:31] LABS: Anisocytosis Slight; Basophils % (A) 0 %; Eosinophils # (A) 0.1 k/uL (0-0.7); Eosinophils % (A) 2 %; HCT 28.2 % (34.0-46.0); HGB 9.3 gm/dL (11.4-16.0); Lymphocytes # (A) 1.1 k/uL (1.0-4.8); Lymphocytes % (A) 16 %; MCH 26.8 pg (25.0-35.0); MCHC 33.1 g/dL (31.0-37.0); MCV 81.2 fL (80.0-100.0); Mean Platelet Volume 6.5; Monocytes # (A) 0.4 k/uL (0-1.0); Monocytes % (A) 6 %; Neutrophils % (A) 75 %; Platelet Count 332 k/uL (150-450); RBC 3.47 m/uL (3.80-5.40); RDW 17.1 % (11.5-15.5); WBC 6.6 k/uL (3.8-10.6)
--- NOTE | 2022-12-23 13:39 | XR ---
EXAMINATION TYPE: XR chest 2V DATE OF EXAM: 12/23/2022 COMPARISON: 12/07/2022, CT 11/28/2022 HISTORY: 62 year-old female shortness of breath, difficulty breathing TECHNIQUE: AP and lateral views FINDINGS: Heart normal size. Aorta and pulmonary vasculature within normal limits. Right patient rotation alter s the normal cardiomediastinal contours. 1.7 cm focal density felt to relate to a prominent rib end w hen correlating with patient's 11/28/2022 CT. There is hyperinflation. Chronic interstitial prominence . No consolidation or pleural effusion. 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 Similar mild asymmetric volume loss right hemithorax. IMPRESSION: Similar slight asymmetric volume loss right hemithorax and background COPD with marked emphysema. No definite acute process.
[2022-12-23 13:42] LABS: ALT 14 U/L (4-34); AST 18 U/L (14-36); African American GFR (CKD) >90 (>60 ml/min/1.73 sqM); Albumin 3.3 g/dL (3.5-5.0); Alkaline Phosphatase 67 U/L (38-126); Anion Gap 5 mmol/L; Blood Urea Nitrogen 6 mg/dL (7-17); Calcium 8.3 mg/dL (8.4-10.2); Carbon Dioxide 29 mmol/L (22-30); Chloride 97 mmol/L (98-107); Glucose 144 mg/dL (74-99); Magnesium 1.4 mg/dL (1.6-2.3); Non-African American GFR(CKD) >90 (>60 ml/min/1.73 sqM); Potassium 3.9 mmol/L (3.5-5.1); Sodium 131 mmol/L (137-145); Total Bilirubin 0.2 mg/dL (0.2-1.3); Total Protein 5.9 g/dL (6.3-8.2)
[2022-12-23 13:49] LABS: INR 0.9 (<1.2); Partial Thromboplastin Time 28.5 sec (22.0-30.0); Prothrombin Time 9.8 sec (9.0-12.0)
[2022-12-23] MEDS ORDERED: HYDROcodone/APAP 5-325MG 1 EACH TAB PO STA (13:50)
[2022-12-23 13:59] VITALS: RESP 18
[2022-12-23 15:22] VITALS: BP 128/62; PULSE 88; TEMP 98.1
== END 2022-12-23 15:22 | disposition home or self-care (01) ==
LOC: EC 12:50
DX: J44.1 Chronic obstructive pulmonary disease with (acute) exacerbation (principal); F12.90 Cannabis use, unspecified, uncomplicated; I25.10 Atherosclerotic heart disease of native coronary artery without angina pectoris; I10 Essential (primary) hypertension; K21.9 Gastro-esophageal reflux disease without esophagitis; F17.200 Nicotine dependence, unspecified, uncomplicated; F14.90 Cocaine use, unspecified, uncomplicated; Z90.89 Acquired absence of other organs; Z88.1 Allergy status to other antibiotic agents; Z88.8 Allergy status to other drugs, medicaments and biological substances; Z79.899 Other long term (current) drug therapy
CPT/HCPCS: 99285 ×2; 99406 ×2; 36415; 93005; 80053; 83605; 83735; 84484; 85025; 85610; 85730; 71046; 96374; J2930

== ENCOUNTER 2023-01-19 00:23 | Observation (INO) | payer OTHER ==
[2023-01-19 01:20] LABS: INR 0.9 (<1.2); Partial Thromboplastin Time 25.8 sec (22.0-30.0)
[2023-01-19 01:27] LABS: Anisocytosis Slight; Basophils % (A) 0 %; Eosinophils # (A) 0.2 k/uL (0-0.7); Eosinophils % (A) 2 %; HCT 29.5 % (34.0-46.0); HGB 9.9 gm/dL (11.4-16.0); Lymphocytes # (A) 2.5 k/uL (1.0-4.8); Lymphocytes % (A) 26 %; MCHC 33.4 g/dL (31.0-37.0); MCV 80.8 fL (80.0-100.0); Mean Platelet Volume 7.9; Microcytosis Slight; Monocytes # (A) 0.6 k/uL (0-1.0); Monocytes % (A) 6 %; Neutrophils # (A) 6.1 k/uL (1.3-7.7); Neutrophils % (A) 64 %; Platelet Count 359 k/uL (150-450); RBC 3.65 m/uL (3.80-5.40); RDW 16.5 % (11.5-15.5); WBC 9.5 k/uL (3.8-10.6)
[2023-01-19] MEDS ORDERED: DEXAMETHASONE SOD PHOSPHATE 10 MG/ML 1 ML VIAL IVP STA (01:38)
[2023-01-19] MEDS ORDERED: IPRATROPIUM 0.5 MG/2.5 ML NEBU INHALATION STA (01:38)
[2023-01-19] MEDS ORDERED: ALBUTEROL NEB (CONC) 2.5 MG/0.5 ML INHALATION STA (01:38)
[2023-01-19 02:01] LABS: ALT 12 U/L (4-34); AST 19 U/L (14-36); African American GFR (CKD) >90 (>60 ml/min/1.73 sqM); Albumin 3.3 g/dL (3.5-5.0); Alkaline Phosphatase 73 U/L (38-126); Anion Gap 3 mmol/L; Blood Urea Nitrogen 5 mg/dL (7-17); Calcium 8.4 mg/dL (8.4-10.2); Carbon Dioxide 32 mmol/L (22-30); Chloride 97 mmol/L (98-107); Glucose 101 mg/dL (74-99); Non-African American GFR(CKD) >90 (>60 ml/min/1.73 sqM); Potassium 3.8 mmol/L (3.5-5.1); Sodium 132 mmol/L (137-145); Total Bilirubin 0.4 mg/dL (0.2-1.3); Total Protein 6.3 g/dL (6.3-8.2)
--- NOTE | 2023-01-19 03:23 | XR ---
EXAM: XR Chest, 2 Views CLINICAL HISTORY: ITS.REASON XR Reason: difficulty breathing TECHNIQUE: Frontal and lateral views of the chest. COMPARISON: No relevant prior studies available. FINDINGS: Lungs: No consolidation or mass. Pleural space: No effusion. Heart: No cardiomegaly. Bones/joints: No acute findings. IMPRESSION: No acute cardiopulmonary process.
[2023-01-19] MEDS ORDERED: NALOXONE 0.4 MG/ML 1 ML VIAL IV PRN (04:13)
[2023-01-19] MEDS ORDERED: IPRATROPIUM-ALBUTEROL 3 ML NEB INHALATION PRN (04:15)
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
[2023-01-19] MEDS ORDERED: ALBUTEROL HFA INHALER INHALATION PRN (10:26)
[2023-01-19] MEDS ORDERED: ACETAMINOPHEN TAB 325 MG TAB PO PRN (10:26)
[2023-01-19] MEDS ORDERED: DICYCLOMINE 10 MG CAP PO PRN (10:26)
[2023-01-19] MEDS: METOPROLOL SUCCINATE (ER) 25 MG TAB.ER.24H PO SCH (13:14)
[2023-01-19] MEDS: PANTOPRAZOLE 40 MG TABLET PO SCH (13:14)
[2023-01-19] MEDS: levETIRAcetam 500 MG TAB PO SCH ×2 (13:14→21:59)
[2023-01-19] MEDS ORDERED: FLUTICASONE 50MCG/SPRAY NASAL 16GM EA NOSTRIL PRN (14:30)
[2023-01-19] MEDS ORDERED: CALCIUM CARBONATE 500 MG CHEWABLE PO PRN (14:30)
[2023-01-19] MEDS ORDERED: ONDANSETRON 4 MG/2 ML VIAL IVP PRN (14:35)
[2023-01-19] MEDS: methylPREDNISolone SOD SUCCI 40 MG/ML 1 ML VIAL IV SCH ×2 (15:38→17:22)
[2023-01-19 16:07] VITALS: BMI 16.0
[2023-01-19] MEDS: GABAPENTIN 300 MG CAP PO SCH ×2 (17:43→21:59)
[2023-01-19] MEDS: RIVAROXABAN 20 MG TAB PO SCH (17:43)
[2023-01-19] MEDS: SYMBICORT 160-4.5 MCG INHALER INHALATION SCH (21:00)
[2023-01-19] MEDS: IPRATROPIUM 0.5 MG/2.5 ML NEBU INHALATION SCH (21:00)
[2023-01-19] MEDS: QUEtiapine 400 MG TAB PO SCH (21:59)
[2023-01-19] MEDS: IBUPROFEN 200 MG TAB PO SCH (21:59)
[2023-01-19] MEDS: FERROUS SULFATE 325 MG TAB PO SCH (21:59)
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
[2023-01-20] MEDS: methylPREDNISolone SOD SUCCI 40 MG/ML 1 ML VIAL IV SCH ×4 (00:38→23:52)
[2023-01-20] MEDS: SYMBICORT 160-4.5 MCG INHALER INHALATION SCH ×2 (07:50→20:34)
[2023-01-20] MEDS: IPRATROPIUM 0.5 MG/2.5 ML NEBU INHALATION SCH ×4 (07:50→20:34)
[2023-01-20] MEDS: IBUPROFEN 200 MG TAB PO SCH ×2 (08:32→20:41)
[2023-01-20] MEDS: levETIRAcetam 500 MG TAB PO SCH ×2 (08:32→20:41)
[2023-01-20] MEDS: GABAPENTIN 300 MG CAP PO SCH ×3 (08:32→20:41)
[2023-01-20] MEDS: PANTOPRAZOLE 40 MG TABLET PO SCH (08:32)
[2023-01-20] MEDS: FERROUS SULFATE 325 MG TAB PO SCH ×2 (08:32→20:41)
[2023-01-20] MEDS: LORATADINE 10 MG TAB PO SCH (08:32)
[2023-01-20] MEDS: METOPROLOL SUCCINATE (ER) 25 MG TAB.ER.24H PO SCH (08:32)
[2023-01-20 08:45] LABS: Anisocytosis Slight; Basophils % (A) 0 %; Eosinophils % (A) 0 %; HCT 31.4 % (34.0-46.0); HGB 10.2 gm/dL (11.4-16.0); Lymphocytes # (A) 1.1 k/uL (1.0-4.8); Lymphocytes % (A) 16 %; MCH 26.9 pg (25.0-35.0); MCHC 32.5 g/dL (31.0-37.0); MCV 82.6 fL (80.0-100.0); Mean Platelet Volume 7.9; Monocytes # (A) 0.2 k/uL (0-1.0); Monocytes % (A) 3 %; Neutrophils # (A) 5.7 k/uL (1.3-7.7); Neutrophils % (A) 81 %; Platelet Count 396 k/uL (150-450); RDW 16.3 % (11.5-15.5)
[2023-01-20 09:01] LABS: African American GFR (CKD) >90 (>60 ml/min/1.73 sqM); Anion Gap 4 mmol/L; Blood Urea Nitrogen 10 mg/dL (7-17); Calcium 8.6 mg/dL (8.4-10.2); Carbon Dioxide 30 mmol/L (22-30); Chloride 100 mmol/L (98-107); Glucose 120 mg/dL (74-99); Non-African American GFR(CKD) >90 (>60 ml/min/1.73 sqM); Potassium 4.9 mmol/L (3.5-5.1); Sodium 134 mmol/L (137-145)
[2023-01-20] MEDS: BUPRENORPHINE-NALOX 8-2 MG TAB 1 EACH TAB.SUBL SL SCH (14:30)
[2023-01-20] MEDS: RIVAROXABAN 20 MG TAB PO SCH (16:57)
[2023-01-20] MEDS: LORazepam 0.5 MG TAB PO PRN (20:41)
[2023-01-20] MEDS: QUEtiapine 400 MG TAB PO SCH (20:41)
--- NOTE | 2023-01-20 23:51 | P.PN ---
Subjective Progress Note Date: 01/20/23 Patient is a 62-year-old female with a known history of atrial fibrillation on anticoagulation with Xarelto, coronary artery disease, COPD, Crohn's disease, history of CVA/TIA, hypertension, hyperlipidemia, osteoarthritis, seizure disorder, anxiety depression bipolar disorder and currently everyday smoker and history of marijuana and cocaine use presents to ER with complaints of worsening shortness of breath. Patient has been having worsening symptoms since yesterday. Patient had previous admissions for acute COPD exacerbation recently and also Crohn's exacerbation. Patient states that her breathing is not right. Denies any chest pain. Patient is on home oxygen 2 L via nasal cannula. She tr ied breathing treatments at home without much help. Otherwise denied any fever or chills. No nausea vomiting. No headache or dizziness. Chest x-ray showed no acute cardiopulmonary process EKG showed sinus rhythm Laboratory showed WBC 9.5 hemoglobin 9.9 and platelets 359 Sodium 132 potassium 3.8 chloride 97 bicarb is 32 BUN 5 and creatinine 0.36 and [place] Elevated. Albumin 3.3. 01/20/2023 Patient is currently sitting on side of the bed. Very anxious. Patient is also upset since she did not get her Suboxone dose. However his breathing status is better. Still having bilateral expiratory wheezing and scattered rhonchi. No complaints of nausea or vomiting. Patient has been afebrile. Cough without any sputum production. No complaints of abdominal pain. No diarrhea. Laboratory showed WBC 7.0 hemoglobin 10.2 and platelets 396 Sodium 134 potassium 4.9 chloride 100 bicarb is 30 BUN 10 and creatinine 0.41. Anticipate discharge in next 24 hours. Current medications reviewed. Objective - Vital Signs Vital signs: Vital Signs Temp 97.7 F 01/20/23 07:00 Pulse 75 01/20/23 07:00 Resp 16 01/20/23 07:00 BP 95/59 01/20/23 07:00 Pulse Ox 100 01/20/23 07:00 FiO2 Intake & Output 01/19/23 01/20/23 01/20/23 18:59 06:59 18:59 Intake Total 474 210 Balance 474 210 Weight 47.627 kg Intake: Oral 474 210 Other: Voiding Method Toilet # Voids 1 1 - Exam PHYSICAL EXAMINATION: Patient is lying in the bed comfortably, no acute distress, awake alert and oriented.. HEENT: Normocephalic. Neck is supple. Pupils reactive. Nostrils clear. Oral cavity is moist. Neck reveals no JVD, carotid bruits, or thyromegaly. CHEST EXAMINATION: Trachea is central. Symmetrical expansion. Bilateral diffuse wheezing and scattered rhonchi.. CARDIAC: Normal S1, S2 with no gallops. No murmurs ABDOMEN: Soft. Bowel sounds present. Nontender. No organomegaly. No abdominal bruits. Extremities: reveal no edema. No clubbing or cyanosis Neurologically awake, alert, oriented x3 with well-coordinated movements. No focal deficits noted Skin: No rash or skin lesions. Psychiatric: Coperative. Nonsuicidal, anxious. Musculoskeletal: No joint swelling or deformity. Normal range of motion. - Labs CBC & Chem 7: 01/20/23 06:09 01/20/23 06:09 Labs: Abnormal Lab Results - Last 24 Hours (Table) 01/20/23 01/20/23 Range/Units 06:09 06:09 Hgb 10.2 L (11.4-16.0) gm/dL Hct 31.4 L (34.0-46.0) % RDW 16.3 H (11.5-15.5) % Sodium 134 L (137-145) mmol/L Creatinine 0.41 L (0.52-1.04) mg/dL Glucose 120 H (74-99) mg/dL Assessment and Plan Assessment: Shortness of breath secondary to acute COPD exacerbation Recent history of Crohn's exacerbation and sigmoid colitis History of substance abuse currently on Suboxone. Paroxysmal atrial fibrillation on anticoagulation Xarelto GERD Hypovolemic hyponatremia GERD Hypertension Osteoarthritis Seizure disorder Anxiety//depression and bipolar disorder Currently everyday smoker GI and DVT prophylaxis Plan: Patient was given 10 mg IV Decadron in the ER. Continue with Solu-Medrol 40 mg every 8 hourly continue with DuoNebs. Patient will be continued on Bentyl for her GI symptoms and continued home medication including Keppra. Patient will be started back on Suboxone as per pharmacy chills. Patient states that she takes 8 mg sublingual daily. Current oxygen supplementation and follow-up closely. Prognosis is guarded recommend medical problems and comorbid conditions. Time with Patient: Greater than 30
[2023-01-21] MEDS: PANTOPRAZOLE 40 MG TABLET PO SCH (05:59)
[2023-01-21] MEDS: SYMBICORT 160-4.5 MCG INHALER INHALATION SCH ×2 (07:40→19:26)
[2023-01-21] MEDS: IPRATROPIUM 0.5 MG/2.5 ML NEBU INHALATION SCH ×4 (07:44→19:28)
[2023-01-21] MEDS: GABAPENTIN 300 MG CAP PO SCH ×3 (09:37→20:54)
[2023-01-21] MEDS: methylPREDNISolone SOD SUCCI 40 MG/ML 1 ML VIAL IV SCH ×2 (09:37→20:54)
[2023-01-21] MEDS: levETIRAcetam 500 MG TAB PO SCH ×2 (09:37→20:55)
[2023-01-21] MEDS: METOPROLOL SUCCINATE (ER) 25 MG TAB.ER.24H PO SCH (09:37)
[2023-01-21] MEDS: BUPRENORPHINE-NALOX 8-2 MG TAB 1 EACH TAB.SUBL SL SCH (09:37)
[2023-01-21] MEDS: IBUPROFEN 200 MG TAB PO SCH ×2 (09:38→20:55)
[2023-01-21] MEDS: LORATADINE 10 MG TAB PO SCH (09:38)
[2023-01-21] MEDS: FERROUS SULFATE 325 MG TAB PO SCH ×2 (09:38→20:54)
--- NOTE | 2023-01-21 16:16 | P.PN ---
Subjective Progress Note Date: 01/21/23 Patient is a 62-year-old female with a known history of atrial fibrillation on anticoagulation with Xarelto, coronary artery disease, COPD, Crohn's disease, history of CVA/TIA, hypertension, hyperlipidemia, osteoarthritis, seizure disorder, anxiety depression bipolar disorder and currently everyday smoker and history of marijuana and cocaine use presents to ER with complaints of worsening shortness of breath. Patient has been having worsening symptoms since yesterday. Patient had previous admissions for acute COPD exacerbation recently and also Crohn's exacerbation. Patient states that her breathing is not right. Denies any chest pain. Patient is on home oxygen 2 L via nasal cannula. She tried breathing treatments at home without much help. Otherwise denied any fever or chills. No nausea vomiting. No headache or dizziness. Chest x-ray showed no acute cardiopulmonary process EKG showed sinus rhythm Laboratory showed WBC 9.5 hemoglobin 9.9 and platelets 359 Sodium 132 potassium 3.8 chloride 97 bicarb is 32 BUN 5 and creatinine 0.36 and [place] Elevated. Albumin 3.3. 01/20/2023 Patient is currently sitting on side of the bed. Very anxious. Patient is also upset since she did not get her Suboxone dose. However his breathing status is better. Still having bilateral expiratory wheezing and scattered rhonchi. No complaints of nausea or vomiting. Patient has been afebrile. Cough without any sputum production. No complaints of abdominal pain. No diarrhea. Laboratory showed WBC 7.0 hemoglobin 10.2 and platelets 396 Sodium 134 potassium 4.9 chloride 100 bicarb is 30 BUN 10 and creatinine 0.41. Anticipate discharge in next 24 hours. 01/21/2023 Patient is evaluated today on medical floor. Patient is requesting rehab on discharge as she feels weak. PT has evaluated the patient and recommending home with homecare. Patient is on home dose of oxygen at 2L, continues with scattered expiratory wheezing. Patient continues to smoke about 1/2 pack per day. Patient has also been unable to get in with local GI services and reports having to find a specialist down in the city. Patient will be monitored overnight and DC home tomorrow. Review of Systems Constitutional: Denied any fatigue denied any fever. Cardio vascular: denied any chest pain, palpitations Gastrointestinal: denied any nausea, vomiting, diarrhea Pulmonary: Reports shortness of breath and cough. Neurologic denied any new focal deficits. Generalized weakness. All inpatient medications were reviewed and appropriate changes in these medications as dictated in the interval history and assessment and plan. PHYSICAL EXAMINATION: GENERAL: The patient is alert and oriented x3, not in any acute distress. Well developed, well nourished. Thin built. HEENT: Pupils are round and equally reacting to light. EOMI. No scleral icterus. No conjunctival pallor. Normocephalic, atraumatic. No pharyngeal erythema. No thyromegaly. CARDIOVASCULAR: S1 and S2 present. No murmurs, rubs, or gallops. PULMONARY: Faint scattered wheezing expiratory, congested cough ABDOMEN: Soft, nontender, nondistended, normoactive bowel sounds. No palpable organomegaly. MUSCULOSKELETAL: No joint swelling or deformity. EXTREMITIES: No cyanosis, clubbing, or pedal edema. NEUROLOGICAL: Gross neurological examination did not reveal any focal deficits. SKIN: No rashes. Assessment and Plan Assessment Shortness of breath secondary to acute COPD exacerbation Recent history of Crohn's exacerbation and sigmoid colitis History of substance abuse currently on Suboxone. Paroxysmal atrial fibrillation on anticoagulation Xarelto GERD Hypovolemic hyponatremia GERD Hypertension Osteoarthritis Seizure disorder Anxiety//depression and bipolar disorder Currently everyday smoker GI and DVT prophylaxis Full Code Plan Continue IV steroids decreased to Q12. Continue home medications Home with Home care likely tomorrow The impression and plan of care has been dictated by Ninoska Dawn, Nurse Practitioner as directed. Dr. Antonette MD I have performed a history and physical examination and medical decision making of this patient, discussed the same with the dictator, and agree with the dictators assessment and plan as written, documented as a scribe. Based on total visit time, I have performed more than 50% of this visit. Objective - Vital Signs Vital signs: Vital Signs Temp 98.3 F 01/21/23 14:48 Pulse 80 01/21/23 14:48 Resp 17 01/21/23 14:48 BP 100/57 01/21/23 14:48 Pulse Ox 98 01/21/23 14:48 FiO2 Intake & Output 01/20/23 01/21/23 01/21/23 18:59 06:59 18:59 Intake Total 450 237 Balance 450 237 Intake: Oral 450 237 Other: # Voids 1 2 1 - Labs CBC & Chem 7: 01/20/23 06:09 01/20/23 06:09 Assessment and Plan Time with Patient: Less than 30
[2023-01-21] MEDS: RIVAROXABAN 20 MG TAB PO SCH (16:43)
[2023-01-21] MEDS: LORazepam 0.5 MG TAB PO PRN (20:54)
[2023-01-21] MEDS: QUEtiapine 400 MG TAB PO SCH (20:55)
[2023-01-22] MEDS: PANTOPRAZOLE 40 MG TABLET PO SCH (06:07)
[2023-01-22] MEDS: IPRATROPIUM 0.5 MG/2.5 ML NEBU INHALATION SCH ×3 (07:40→15:06)
[2023-01-22] MEDS: SYMBICORT 160-4.5 MCG INHALER INHALATION SCH (07:41)
[2023-01-22 08:02] VITALS: RESP 16
[2023-01-22] MEDS: LORATADINE 10 MG TAB PO SCH (09:31)
[2023-01-22] MEDS: FERROUS SULFATE 325 MG TAB PO SCH (09:31)
[2023-01-22] MEDS: methylPREDNISolone SOD SUCCI 40 MG/ML 1 ML VIAL IV SCH (09:31)
[2023-01-22] MEDS: GABAPENTIN 300 MG CAP PO SCH (09:31)
[2023-01-22] MEDS: METOPROLOL SUCCINATE (ER) 25 MG TAB.ER.24H PO SCH (09:31)
[2023-01-22] MEDS: IBUPROFEN 200 MG TAB PO SCH (09:31)
[2023-01-22] MEDS: levETIRAcetam 500 MG TAB PO SCH (09:31)
[2023-01-22] MEDS: BUPRENORPHINE-NALOX 8-2 MG TAB 1 EACH TAB.SUBL SL SCH (09:52)
[2023-01-22 14:12] VITALS: BP 148/72; PULSE 98; TEMP 98.1
--- NOTE | 2023-01-23 16:08 | P.DS ---
Providers Date of admission: 01/19/23 04:15 Attending physician: Ignacio Ornelas MD Primary care physician: Daksha Steiner [facility] Course: Final Diagnosis Shortness of breath secondary to acute COPD exacerbation Recent history of Crohn's exacerbation and sigmoid colitis History of substance abuse currently on Suboxone. Chronic hypoxic respiratory failure on 2L oxygen at home Paroxysmal atrial fibrillation on anticoagulation Xarelto Hypovolemic hyponatremia improved GERD Hypertension Osteoarthritis Seizure disorder History of CVA/TIA Anxiety/depression and bipolar disorder Currently everyday smoker History of marijuana use Full Code Discharge Disposition Patient is stable for discharge home. Continue on same home oxygen at 2L nasal cannula. Continue on oral steroid taper and inhalers. Patient recommended to see GI outpatient and will need to find a GI specialist outside of town. Patient has a follow up appointment with her PCP Dr. Steiner on 02/01 at 3pm. Patient sees her occupational medicine specialist Dr. Cortez on 02/05 at 3pm. Patient needs to quit smoking and is high risk for readmission secondary to continued cigarette smoking. This discussed in detail with patient and she verbalizes understanding. Patient will continue with homecare and home PT services on discharge. Hospital Course This is a 62 year old female with history of COPD, Chronic hypoxic respiratory failure on home oxygen, Chron's disease, atrial fibrillation, GERD, hypertension, daily smoker. Patient presents to the hospital with complaints of progressive shortness of breath. Patient had previous admissions for acute COPD exacerbation recently and also Crohn's exacerbation. Patient states that her breathing is not right. Denies any chest pain. Patient is on home oxygen 2 L via nasal cannula. She tried breathing treatments at home without much help. Otherwise denied any fever or chills. Patient sees Dr. Cortez outpatient. Chest x- ray showed no acute cardiopulmonary process. Laboratory showed WBC 9.5 hemoglobin 9.9 and platelets 359. Sodium 132 potassium 3.8 chloride 97 bicarb is 32 BUN 5 and creatinine 0.36. Patient had significant wheezing on admission. Patient received IV steroids and continued on home inhalers and symptoms improved. Patient is counseled extensively on smoking cessation. Patient states she knows she needs to quit. She endorses feeling week at home and requested subacute rehab. Physical therapy had evaluated the patient and recommended home with home care and home PT. Patient continues on same home oxygen at 2L. Patient has also been unable to get in with local GI services and reports having to find a specialist down in the city. Patients breathing improved and wheezing has also improved. Patient will be discharged home on oral steroid taper and to follow up with Dr. Cortez in the office. 01/22/2023 Patient is evaluated today sitting up at the bedside. Reports improvement in shortness of breath, continues with cough which is chronic in nature. Continues on 2L nasal cannula. Patient overall feels that breathing has improved and wants to discharge home. Lung sounds reveal faint scattered wheezing overall improved. Patient is alert x 3 focal neurological exam is negative. S1 S2 auscultated. Most recent labs show white count of 7.0, hgb 10.2, sodium 134, BUN 10, creatinine 0.41. Glucose 120. Temp 98.1, heart rate 98, blood pressure 148/72, 97% on 2 L. Cleared for discharge home. Please see medication reconciliation for a list of current medication. Thank you for allowing us to participate in the care of this patient. The impression and plan of care has been dictated by Ninoska aDwn, Nurse Practitioner as directed. Dr. Antonette MD I have performed a history and physical examination and medical decision making of this patient, discussed the same with the dictator, and agree with the dictators assessment and plan as written, documented as a scribe. Based on total visit time, I have performed more than 50% of this visit. Patient Condition at Discharge: Stable Plan - Discharge Summary Discharge Rx Participant: No New Discharge Prescriptions: New Budesonide [Pulmicort] 0.5 mg INHALATION BID #60 ml Albuterol Inhaler [Ventolin Hfa Inhaler] 1 puff INHALATION QID PRN #8 gm PRN Reason: Shortness Of Breath Or Wheezing predniSONE 0 mg PO DIRECTED 14 Days #40 tab Continue Metoprolol Succinate (ER) [Toprol XL] 25 mg PO DAILY Buprenorphine HCl/Naloxone HCl [Suboxone 8 mg-2 mg Sl Film] 1 film SL DAILY Loratadine [Claritin] 10 mg PO DAILY Glycopyrrolate/Formoterol Fum [Bevespi Aerosphere Inhaler] 2 puff INHALATION RT-BID Fluticasone Nasal [place] [Flonase Nasal [place]] 1 spr EA NOSTRIL DAILY PRN PRN Reason: Allergy Symptoms levETIRAcetam [Keppra] 1,000 mg PO Q12H #60 tab QUEtiapine [SEROquel] 400 mg PO HS 30 Days #30 tab Acetaminophen Tab [Tylenol] 650 mg PO Q6HR PRN tab PRN Reason: Mild Pain Or Fever > 100.5 Ibuprofen [Motrin] 200 mg PO BID #10 tab Naloxone HCl 4 mg NS DIRECTED PRN PRN Reason: OVERDOSE Ferrous Sulfate [Iron (65 MG Elemental)] 325 mg PO BID Rivaroxaban [Xarelto] 20 mg PO W/SUPPER #30 tab Gabapentin [Neurontin] 300 mg PO TID Pantoprazole Sodium [Protonix] 40 mg PO DAILY Albuterol Sulfate [Albuterol Sulfate Hfa] 2 puff INHALATION RT-Q6H PRN #1 each PRN Reason: Shortness Of Breath Tiotropium 2.5 Mcg/Puff [Spiriva Respimat 2.5 Mcg] 2 puff INHALATION RT-DAILY 30 Days #1 each Calcium Carbonate [Tums] 1,000 mg PO QID PRN tab PRN Reason: Heartburn Dicyclomine [Bentyl] 10 mg PO BID PRN PRN Reason: Gi Upset Discontinued Ipratropium-Albuterol Nebulize [Duoneb 0.5 mg-3 mg/3 ml Soln] 3 ml INHALATION RT-QID Budesonide-Formot 160-4.5 Mcg [Symbicort 160-4.5 Mcg Inhaler] 2 puff INHALATION RT-BID #1 each Discharge Medication List Metoprolol Succinate (ER) [Toprol XL] 25 mg PO DAILY 02/21/18 [History] Buprenorphine HCl/Naloxone HCl [Suboxone 8 mg-2 mg Sl Film] 1 film SL DAILY 04/15/18 [History] Loratadine [Claritin] 10 mg PO DAILY 11/09/18 [History] Glycopyrrolate/Formoterol Fum [Bevespi Aerosphere Inhaler] 2 puff INHALATION RT- BID 11/24/19 [History] Fluticasone Nasal [place] [Flonase Nasal [place]] 1 spr EA NOSTRIL DAILY PRN 03/27/20 [History] Rivaroxaban [Xarelto] 20 mg PO W/SUPPER #30 tab 08/08/22 [Rx] levETIRAcetam [Keppra] 1,000 mg PO Q12H #60 tab 08/08/22 [Rx] Albuterol Sulfate [Albuterol Sulfate Hfa] 2 puff INHALATION RT-Q6H PRN #1 each 10/04/22 [Rx] Gabapentin [Neurontin] 300 mg PO TID 10/04/22 [History] Pantoprazole Sodium [Protonix] 40 mg PO DAILY 10/04/22 [History] QUEtiapine [SEROquel] 400 mg PO HS 30 Days #30 tab 10/04/22 [Rx] Acetaminophen Tab [Tylenol] 650 mg PO Q6HR PRN tab 12/05/22 [Rx] Calcium Carbonate [Tums] 1,000 mg PO QID PRN tab 12/05/22 [Rx] Ibuprofen [Motrin] 200 mg PO BID #10 tab 12/05/22 [Rx] Tiotropium 2.5 Mcg/Puff [Spiriva Respimat 2.5 Mcg] 2 puff INHALATION RT-DAILY 30 Days #1 each 12/05/22 [Rx] Dicyclomine [Bentyl] 10 mg PO BID PRN 12/07/22 [History] Naloxone HCl 4 mg NS DIRECTED PRN 12/07/22 [History] Ferrous Sulfate [Iron (65 MG Elemental)] 325 mg PO BID 01/19/23 [History] Albuterol Inhaler [Ventolin Hfa Inhaler] 1 puff INHALATION QID PRN #8 gm 01/22/23 [Rx] Budesonide [Pulmicort] 0.5 mg INHALATION BID #60 ml 01/22/23 [Rx] predniSONE 0 mg PO DIRECTED 14 Days #40 tab 01/22/23 [Rx] Follow up Appointment(s)/Referral(s): Daksha Steiner MD [Primary Care Provider] - 02/01/23 3:00 pm Jaun Cortez MD [STAFF PHYSICIAN] - 02/05/23 3:00 pm [facility] Visiting Nurse, [NON-STAFF] - 1 Week Patient Instructions/Handouts: COPD (Chronic Obstructive Pulmonary Disease) (DC) Activity/Diet/Wound Care/Special Instructions: Continue with home oxygen at 2 L Advised for total smoking cessation Continue on inhalers as prescribed on discharge. Complete oral steroid taper. Discharge Disposition: HOME WITH HOME HEALTH SERVICES
== END 2023-01-22 15:47 | disposition home health service (06) ==
LOC: EC 00:23 → 6NMEDSUR 04:15 → OBSVTOIN 04:15 → INTOOBSV 04:15 → 6NMEDSUR 05:08 → UNDODISIN 01-22 15:47
PROVIDERS: ADMIT Internal Medicine; ATTEND Internal Medicine
DX: J44.1 Chronic obstructive pulmonary disease with (acute) exacerbation (principal); I25.10 Atherosclerotic heart disease of native coronary artery without angina pectoris; K21.9 Gastro-esophageal reflux disease without esophagitis; E78.5 Hyperlipidemia, unspecified; I10 Essential (primary) hypertension; G40.909 Epilepsy, unspecified, not intractable, without status epilepticus; F41.9 Anxiety disorder, unspecified; F32.A Depression, unspecified; F12.90 Cannabis use, unspecified, uncomplicated; F14.90 Cocaine use, unspecified, uncomplicated; R91.1 Solitary pulmonary nodule; F31.9 Bipolar disorder, unspecified; K50.90 Crohn's disease, unspecified, without complications; I48.0 Paroxysmal atrial fibrillation; F17.210 Nicotine dependence, cigarettes, uncomplicated; F10.10 Alcohol abuse, uncomplicated; E87.1 Hypo-osmolality and hyponatremia; K52.89 Other specified noninfective gastroenteritis and colitis; Z79.899 Other long term (current) drug therapy; Z88.8 Allergy status to other drugs, medicaments and biological substances; Z86.73 Personal history of transient ischemic attack (TIA), and cerebral infarction without residual deficits; Z80.0 Family history of malignant neoplasm of digestive organs; Z63.4 Disappearance and death of family member; Z83.3 Family history of diabetes mellitus; Z82.49 Family history of ischemic heart disease and other diseases of the circulatory system; Z83.49 Family history of other endocrine, nutritional and metabolic diseases; Z82.0 Family history of epilepsy and other diseases of the nervous system; Z99.81 Dependence on supplemental oxygen
CPT/HCPCS: 96376 ×3; 96375; 96374; 99285; 36415; 94640 ×6; 94760; 93005; 97162; 97166; 80053; 80048; 83605; 84484; 85025 ×2; 85610; 85730; 71046; G0378 ×4; J1100; J2920 ×4

== ENCOUNTER 2023-01-28 09:40 | Inpatient (IN) | payer OTHER ==
[2023-01-28] MEDS ORDERED: methylPREDNISolone SOD SUCCI 125 MG/2 ML VIAL IV STA (09:49)
[2023-01-28] MEDS ORDERED: ALBUTEROL NEBULIZED 2.5 MG/3 ML INHALATION STA (09:49)
[2023-01-28] MEDS ORDERED: IPRATROPIUM 0.5 MG/2.5 ML NEBU INHALATION STA (09:49)
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
[2023-01-28] MEDS ORDERED: KETOROLAC 15 MG/ML 1 ML VIAL IVP STA (10:07)
[2023-01-28] MEDS ORDERED: LORazepam 2 MG/ML INJ IV STA (10:07)
[2023-01-28 10:09] LABS: Basophils % (A) 0 %; Eosinophils # (A) 0.3 k/uL (0-0.7); Eosinophils % (A) 2 %; HCT 34.8 % (34.0-46.0); HGB 11.1 gm/dL (11.4-16.0); Lymphocytes # (A) 2.5 k/uL (1.0-4.8); Lymphocytes % (A) 20 %; MCH 27.3 pg (25.0-35.0); MCHC 32.1 g/dL (31.0-37.0); MCV 85.1 fL (80.0-100.0); Mean Platelet Volume 6.8; Monocytes # (A) 0.7 k/uL (0-1.0); Monocytes % (A) 6 %; Neutrophils # (A) 8.7 k/uL (1.3-7.7); Neutrophils % (A) 71 %; Platelet Count 361 k/uL (150-450); RBC 4.08 m/uL (3.80-5.40); RDW 15.9 % (11.5-15.5); WBC 12.3 k/uL (3.8-10.6)
[2023-01-28 10:19] LABS: ALT 18 U/L (4-34); AST 25 U/L (14-36); African American GFR (CKD) >90 (>60 ml/min/1.73 sqM); Albumin 3.6 g/dL (3.5-5.0); Alkaline Phosphatase 59 U/L (38-126); Anion Gap 6 mmol/L; Blood Urea Nitrogen 10 mg/dL (7-17); Calcium 8.7 mg/dL (8.4-10.2); Carbon Dioxide 31 mmol/L (22-30); Chloride 98 mmol/L (98-107); Glucose 181 mg/dL (74-99); INR 0.9 (<1.2); Magnesium 1.5 mg/dL (1.6-2.3); Non-African American GFR(CKD) >90 (>60 ml/min/1.73 sqM); Partial Thromboplastin Time 22.8 sec (22.0-30.0); Prothrombin Time 9.6 sec (9.0-12.0); Sodium 135 mmol/L (137-145); Total Bilirubin 0.4 mg/dL (0.2-1.3); Total Protein 6.8 g/dL (6.3-8.2)
[2023-01-28 10:29] LABS: Potassium 4.4 mmol/L (3.5-5.1)
--- NOTE | 2023-01-28 10:42 | XR ---
EXAMINATION TYPE: XR chest 2V DATE OF EXAM: 01/28/2023 COMPARISON: Chest x-ray 9 days ago HISTORY: Difficulty in breathing. TECHNIQUE: Frontal and lateral views of the chest are obtained. FINDINGS: There is chronic parenchymal change without suspicious new focal air space opacity, pleura l effusion, or pneumothorax seen. The cardiac silhouette size is stable and within normal limits. Mi ld chronic compression type fracture at roughly T9 level is present. IMPRESSION: Chronic changes without acute pulmonary process. No significant change from prior.
[2023-01-28] MEDS ORDERED: NALOXONE 0.4 MG/ML 1 ML VIAL IVP PRN (13:49)
[2023-01-28] MEDS: IPRATROPIUM-ALBUTEROL 3 ML NEB INHALATION SCH ×2 (15:29→21:19)
[2023-01-28] MEDS: methylPREDNISolone SOD SUCCI 125 MG/2 ML VIAL IV SCH (18:13)
[2023-01-28] MEDS ORDERED: DICYCLOMINE 10 MG CAP PO PRN (19:20)
[2023-01-28] MEDS ORDERED: CALCIUM CARBONATE 500 MG CHEWABLE PO PRN (19:20)
[2023-01-28] MEDS ORDERED: FLUTICASONE 50MCG/SPRAY NASAL 16GM EA NOSTRIL PRN (19:20)
[2023-01-28] MEDS ORDERED: DEXTROSE 50% SYRINGE 50 ML IVP PRN ×2 (19:23)
[2023-01-28] MEDS: levETIRAcetam 500 MG TAB PO SCH (20:10)
[2023-01-28] MEDS: RIVAROXABAN 20 MG TAB PO SCH (20:10)
[2023-01-28] MEDS: FERROUS SULFATE 325 MG TAB PO SCH (20:10)
[2023-01-28] MEDS: GABAPENTIN 300 MG CAP PO SCH (20:10)
[2023-01-28] MEDS: QUEtiapine 400 MG TAB PO SCH (20:10)
[2023-01-28] MEDS: IBUPROFEN 200 MG TAB PO SCH (20:11)
[2023-01-28 20:33] LABS: Glucose,Whole Blood 210 mg/dL (70-110)
[2023-01-28] MEDS: INSULIN ASPART (NovoLOG) 100 UNIT/ML VIAL SQ SCH (20:46)
[2023-01-28] MEDS: BUDESONIDE 0.5 MG/2 ML NEBU INHALATION SCH (21:19)
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
[2023-01-29] MEDS: MAGNESIUM SULFATE-D5W PMX 1 GM in DEXTROSE/WATER 1 100ML.BAG IVPB SCH ×2 (00:53→02:24)
[2023-01-29] MEDS: methylPREDNISolone SOD SUCCI 125 MG/2 ML VIAL IV SCH ×3 (02:22→23:14)
[2023-01-29 07:43] LABS: Glucose,Whole Blood 141 mg/dL (70-110)
[2023-01-29] MEDS: INSULIN ASPART (NovoLOG) 100 UNIT/ML VIAL SQ SCH ×4 (08:06→21:22)
[2023-01-29] MEDS: IPRATROPIUM-ALBUTEROL 3 ML NEB INHALATION SCH ×4 (08:42→20:31)
[2023-01-29] MEDS: BUDESONIDE 0.5 MG/2 ML NEBU INHALATION SCH ×2 (08:42→20:31)
[2023-01-29] MEDS ORDERED: NON FORMULARY DRUG (Buprenorphine Hcl/Naloxone Hcl [Suboxone 8 Mg-2 Mg Sl Film] 1 EACH Fil SUBLINGUAL SCH (09:00)
[2023-01-29] MEDS ORDERED: predniSONE 10 MG TAB PO SCH (09:00)
[2023-01-29] MEDS: levETIRAcetam 500 MG TAB PO SCH ×2 (09:24→20:12)
[2023-01-29] MEDS: GABAPENTIN 300 MG CAP PO SCH ×3 (09:24→20:12)
[2023-01-29] MEDS: IBUPROFEN 200 MG TAB PO SCH ×2 (09:24→20:13)
[2023-01-29] MEDS: FERROUS SULFATE 325 MG TAB PO SCH ×2 (09:24→20:12)
[2023-01-29] MEDS: METOPROLOL SUCCINATE (ER) 25 MG TAB.ER.24H PO SCH (09:25)
[2023-01-29] MEDS: LORATADINE 10 MG TAB PO SCH (09:25)
[2023-01-29] MEDS: PANTOPRAZOLE 40 MG TABLET PO SCH (09:25)
[2023-01-29 11:05] LABS: Basophils # (A) 0.01 X 10*3/uL (0.00-0.10); Basophils % (A) 0.1 %; Eosinophils # (A) 0 X 10*3/uL (0.04-0.35); Eosinophils % (A) 0 %; HCT 28.8 % (37.2-46.3); HGB 9.1 g/dL (12.0-15.0); Immature Grans, Automated 0.3 %; Lymphocytes # (A) 2.01 X 10*3/uL (0.90-5.00); Lymphocytes % (A) 25.4 %; MCH 26.7 pg (27.0-32.0); MCHC 31.6 g/dL (32.0-37.0); MCV 84.5 fL (80.0-97.0); Mean Platelet Volume 9.3 fL (9.5-12.2); Monocytes # (A) 0.67 X 10*3/uL (0.20-1.00); Monocytes % (A) 8.5 %; NRBC Per 100 WBC 0 /100 WBCS (0.0-0.0); Neutrophils # (A) 5.19 X 10*3/uL (1.80-7.70); Neutrophils % (A) 65.7 %; Platelet Count 336 X 10*3/uL (140-440); RBC 3.41 X 10*6/uL (4.10-5.20); RDW 15.3 % (11.5-14.5)
[2023-01-29 11:28] LABS: African American GFR (CKD) 124.3 (60.0-200.0); Anion Gap 10.1 mmol/L (10.00-18.00); BUN/Creat Ratio 33.49 Ratio (12.00-20.00); Blood Urea Nitrogen 14.5 mg/dL (9.0-27.0); Calcium 8.7 mg/dL (8.7-10.3); Carbon Dioxide 27.4 mmol/L (20.0-27.5); Non-African American GFR(CKD) 107.2 (60.0-200.0); Potassium 4.6 mmol/L (3.5-5.5)
[2023-01-29 12:51] LABS: Glucose,Whole Blood 155 mg/dL (70-110)
[2023-01-29 13:59] VITALS: BMI 18.6
[2023-01-29 17:17] LABS: Glucose,Whole Blood 212 mg/dL (70-110)
[2023-01-29] MEDS: RIVAROXABAN 20 MG TAB PO SCH (17:45)
[2023-01-29 18:19] LABS: Appearance,Urine Clear (Clear); Bilirubin,Urine Negative (Negative); Blood,Urine Negative (Negative); Color,Urine Yellow; Glucose,Urine (UA) Negative (Negative); Ketones,Urine Trace (Negative); Leukocyte Esterase,Urine Negative (Negative); Nitrite,Urine Negative (Negative); Protein,Urine Negative (Negative); Specific Gravity,Urine 1.017 (1.001-1.035); Urobilinogen,Urine <2.0 mg/dL (<2.0)
[2023-01-29] MEDS: ACETAMINOPHEN TAB 325 MG TAB PO PRN (19:03)
[2023-01-29] MEDS: QUEtiapine 400 MG TAB PO SCH (20:12)
[2023-01-29 20:28] LABS: Glucose,Whole Blood 162 mg/dL (70-110)
--- NOTE | 2023-01-29 23:28 | PN ---
PROGRESS NOTE DATE OF SERVICE: 01/29/2023 SUBJECTIVE: This is a 62-year-old woman admitted with COPD acute exacerbation, is complaining of significant shortness of breath. The patient also complains of some dysuria and urinary symptoms also. OBJECTIVE: VITAL SIGNS: Pulse is 88, blood pressure is 100/69, respirations 15. CHEST: Few scattered rhonchi and crackles. Expiratory wheezing also present. Breathing efforts increased. ABDOMEN: Soft. NERVOUS SYSTEM: Nonfocal. LABORATORY DATA: Reviewed. ASSESSMENT: 1. Chronic obstructive pulmonary disease acute exacerbation with possible acute purulent tracheobronchitis. 2. Rule out urinary tract infection. 3. Hypertension. 4. Gastroesophageal reflux disease. 5. Hyponatremia. 6. Recent history of Crohn disease, acute exacerbation. RECOMMENDATIONS: Recommend to continue current medications, continue symptomatic treatment. I recommend intensive bronchodilators and IV steroids and pulmonary consultation with Dr. Cortez and we will continue to monitor. I would recommend full admit for this patient with multiple complex medical issues. MMODL / IJN: [id number] /
[2023-01-30] MEDS: methylPREDNISolone SOD SUCCI 125 MG/2 ML VIAL IV SCH (05:32)
[2023-01-30 06:36] LABS: Glucose,Whole Blood 137 mg/dL (70-110)
[2023-01-30] MEDS: INSULIN ASPART (NovoLOG) 100 UNIT/ML VIAL SQ SCH ×4 (06:37→21:10)
[2023-01-30] MEDS: IBUPROFEN 200 MG TAB PO SCH ×2 (08:32→20:44)
[2023-01-30] MEDS: levETIRAcetam 500 MG TAB PO SCH ×2 (08:32→20:45)
[2023-01-30] MEDS: GABAPENTIN 300 MG CAP PO SCH ×3 (08:32→20:44)
[2023-01-30] MEDS: PANTOPRAZOLE 40 MG TABLET PO SCH (08:32)
[2023-01-30] MEDS: METOPROLOL SUCCINATE (ER) 25 MG TAB.ER.24H PO SCH (08:33)
[2023-01-30] MEDS: FERROUS SULFATE 325 MG TAB PO SCH ×2 (08:33→20:44)
[2023-01-30] MEDS: LORATADINE 10 MG TAB PO SCH (08:33)
[2023-01-30] MEDS: BUDESONIDE 1 MG/2 ML NEBU INHALATION SCH ×2 (08:50→20:07)
[2023-01-30] MEDS: IPRATROPIUM-ALBUTEROL 3 ML NEB INHALATION SCH ×4 (08:50→20:08)
[2023-01-30] MEDS: DOXYCYCLINE 100 MG CAP PO SCH ×2 (08:54→20:44)
[2023-01-30] MEDS ORDERED: predniSONE 20 MG TAB PO SCH (09:00)
[2023-01-30] MEDS: BUPRENORPHINE-NALOX 8-2 MG TAB 1 EACH TAB.SUBL SL SCH (09:16)
[2023-01-30 11:50] LABS: Glucose,Whole Blood 277 mg/dL (70-110)
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
[2023-01-30] MEDS: NICOTINE 14MG/24HR PATCH TRANSDERM SCH (14:28)
[2023-01-30] MEDS: ALPRAZolam 0.25 MG TAB PO PRN (14:36)
[2023-01-30 17:24] LABS: Glucose,Whole Blood 147 mg/dL (70-110)
[2023-01-30] MEDS: BUDESONIDE 0.5 MG/2 ML NEBU INHALATION SCH (17:26)
[2023-01-30] MEDS: RIVAROXABAN 20 MG TAB PO SCH (17:38)
[2023-01-30] MEDS: FORMOTEROL FUMARATE 20 MCG/2 ML NEBU INHALATION SCH (20:08)
[2023-01-30] MEDS: QUEtiapine 400 MG TAB PO SCH (20:44)
[2023-01-30 21:01] LABS: Glucose,Whole Blood 218 mg/dL (70-110)
--- NOTE | 2023-01-30 23:24 | PN ---
PROGRESS NOTE DATE OF SERVICE: 01/30/2023 SUBJECTIVE: This is a 62-year-old woman who was admitted with COPD acute exacerbation as well as possible acute purulent tracheobronchitis, is being closely monitored. No chest pain. No palpitations. No fever. OBJECTIVE: VITAL SIGNS: Pulse 96, blood pressure 130/60, respirations 18. CHEST: A few scattered rhonchi. CARDIOVASCULAR: S1, S2 muffled. ABDOMEN: Soft. LABORATORY DATA: Labs are reviewed. ASSESSMENT: 1. Chronic obstructive pulmonary disease acute exacerbation with possible acute purulent tracheobronchitis. 2. Rule out urinary tract infection. 3. Hypertension. 4. Gastroesophageal reflux disease. 5. Hyponatremia. 6. Recent history of Crohn disease, acute exacerbation. RECOMMENDATIONS: Recommend to continue current medications. Continue symptomatic treatment. Cultures are negative so far. Continue the empiric antibiotics and rest of medications. Closely follow with Pulmonary. Possible discharge in the next 24 to 48 hours. MMODL / IJN: [id number] /
[2023-01-31 06:51] LABS: Glucose,Whole Blood 94 mg/dL (70-110)
[2023-01-31] MEDS: INSULIN ASPART (NovoLOG) 100 UNIT/ML VIAL SQ SCH ×4 (06:54→22:19)
[2023-01-31] MEDS: METOPROLOL SUCCINATE (ER) 25 MG TAB.ER.24H PO SCH (07:42)
[2023-01-31 08:04] LABS: Basophils % (A) 0 %; Eosinophils % (A) 0 %; HCT 31.8 % (34.0-46.0); HGB 10.1 gm/dL (11.4-16.0); Lymphocytes # (A) 2.8 k/uL (1.0-4.8); Lymphocytes % (A) 29 %; MCH 26.8 pg (25.0-35.0); MCHC 31.7 g/dL (31.0-37.0); MCV 84.6 fL (80.0-100.0); Mean Platelet Volume 6.9; Monocytes # (A) 0.7 k/uL (0-1.0); Monocytes % (A) 8 %; Neutrophils % (A) 62 %; Platelet Count 342 k/uL (150-450); RBC 3.76 m/uL (3.80-5.40); RDW 15.9 % (11.5-15.5); WBC 9.8 k/uL (3.8-10.6)
[2023-01-31] MEDS: IPRATROPIUM-ALBUTEROL 3 ML NEB INHALATION SCH ×4 (08:47→19:27)
[2023-01-31] MEDS: FORMOTEROL FUMARATE 20 MCG/2 ML NEBU INHALATION SCH ×2 (08:47→19:27)
[2023-01-31] MEDS: BUDESONIDE 1 MG/2 ML NEBU INHALATION SCH ×2 (08:47→19:27)
[2023-01-31] MEDS: methylPREDNISolone SOD SUCCI 125 MG/2 ML VIAL IV SCH ×3 (08:55→20:12)
[2023-01-31] MEDS: ALPRAZolam 0.25 MG TAB PO PRN (08:55)
[2023-01-31] MEDS: levETIRAcetam 500 MG TAB PO SCH ×2 (08:55→20:11)
[2023-01-31] MEDS: LORATADINE 10 MG TAB PO SCH (08:56)
[2023-01-31] MEDS: GABAPENTIN 300 MG CAP PO SCH ×3 (08:56→20:11)
[2023-01-31] MEDS: PANTOPRAZOLE 40 MG TABLET PO SCH (08:56)
[2023-01-31] MEDS: BUPRENORPHINE-NALOX 8-2 MG TAB 1 EACH TAB.SUBL SL SCH (08:56)
[2023-01-31] MEDS: DOXYCYCLINE 100 MG CAP PO SCH ×2 (08:56→20:11)
[2023-01-31] MEDS: IBUPROFEN 200 MG TAB PO SCH ×2 (08:56→20:11)
[2023-01-31] MEDS: FERROUS SULFATE 325 MG TAB PO SCH ×2 (08:57→20:11)
[2023-01-31] MEDS: NICOTINE 14MG/24HR PATCH TRANSDERM SCH (09:02)
[2023-01-31 10:06] LABS: ALT 15 U/L (4-34); AST 18 U/L (14-36); African American GFR (CKD) >90 (>60 ml/min/1.73 sqM); Albumin/Globulin Ratio 1.1; Alkaline Phosphatase 53 U/L (38-126); Anion Gap 7 mmol/L; Blood Urea Nitrogen 26 mg/dL (7-17); Calcium 8.7 mg/dL (8.4-10.2); Carbon Dioxide 31 mmol/L (22-30); Chloride 98 mmol/L (98-107); Globulin 2.7 g/dL; Glucose 78 mg/dL (74-99); Non-African American GFR(CKD) >90 (>60 ml/min/1.73 sqM); Sodium 136 mmol/L (137-145); Total Bilirubin 0.2 mg/dL (0.2-1.3); Total Protein 5.7 g/dL (6.3-8.2)
[2023-01-31 10:18] LABS: Potassium 4.6 mmol/L (3.5-5.1)
[2023-01-31 11:20] LABS: Glucose,Whole Blood 157 mg/dL (70-110)
--- NOTE | 2023-01-31 11:49 | P.PN ---
Subjective Progress Note Date: 01/31/23 This is a pleasant 62-year-old female patient with a history of chronic and ongoing tobacco dependence, chronic oxygen dependent chronic obstructive pulmonary disease, atrial fibrillation anticoagulated with Xarelto, Crohn's disease, seizure disorder, hypertension, hyperlipidemia, CVA/TIA, bipolar disorder, history of marijuana and cocaine use. Currently on Suboxone. She presented here to the hospital on 01/28/2023 with increasing shortness of breath. She was unable to use her nebulizer she was so short of breath and called EMS instead. She did feel better after receiving a treatment in [place] [facility]. Chest x-ray reveals chronic changes but no acute pulmonary process. Blood cultures pending. Sputum culture pending. White count 7.9. Hemoglobin 9.1. Sodium 138. Potassium 4.6. Bicarb 27. BUN 15. Creatinine 0.4. Glucose 135. She is seen today in consultation on the regular medical floor. Currently sitting up in bed. Awake and alert in no acute distress. Maintaining O2 saturations up to 99% on 2 L/m per nasal cannula. She's afebrile. Hemodynamically stable. She's been initiated and DuoNeb inhalations, Pulmicort and Perforomist inhalations, prednisone taper. Anticoagulated with Xarelto. The patient is seen today 01/31/2023 in follow-up on the regular medical floor. She is currently resting in bed. Awake and alert in no acute distress. Maintaining O2 saturations in the 90s on room air. She is still somewhat bronchospastic and wheezing. Sputum culture revealed [place]. Blood cultures are pending. White count 9.8. Hemoccult and 10.1. Platelets 342. Sodium 136. Potassium 4.6. Bicarb 31. BUN 26. Creatinine 0.55. Glucose 157. She is continued on DuoNeb inhalations, Pulmicort and Perforomist inhalations, prednisone taper. Empiric antibiotics in the form of doxycycline. NicoDerm patch is in place. Anticoagulated with Xarelto. Objective - Vital Signs Vital signs: Vital Signs Temp 97.9 F 01/31/23 08:00 Pulse 101 H 01/31/23 09:06 Resp 18 01/31/23 08:00 BP 92/57 01/31/23 08:00 Pulse Ox 93 L 01/31/23 08:50 FiO2 Intake & Output 01/30/23 01/31/23 01/31/23 18:59 06:59 18:59 Intake Total 480 480 Balance 480 480 Intake: Oral 480 480 Other: # Voids 1 2 1 - Exam GENERAL EXAM: Alert, 62-year-old female, on room air, fairly comfortable in no apparent distress. HEAD: Normocephalic. EYES: Normal reaction of pupils, equal size. NOSE: Clear with pink turbinates. THROAT: No erythema or exudates. NECK: No masses, no JVD. CHEST: No chest wall deformity. LUNGS: Equal air entry with bilateral end expiratory wheeze, diminished. CVS: S1 and S2 normal with no audible murmur, regular rhythm. ABDOMEN: No hepatosplenomegaly, normal bowel sounds, no guarding or rigidity. SPINE: No scoliosis or deformity SKIN: No rashes CENTRAL NERVOUS SYSTEM: No focal deficits, tone is normal in all 4 extremities. EXTREMITIES: There is no peripheral edema. No clubbing, no cyanosis. Peripheral pulses are intact. - Labs CBC & Chem 7: 01/31/23 07:01 01/31/23 07:01 Labs: Abnormal Lab Results - Last 24 Hours (Table) 01/30/23 01/30/23 01/30/23 Range/Units 11:46 17:22 21:00 RBC (3.80-5.40) m/uL Hgb (11.4-16.0) gm/dL Hct (34.0-46.0) % RDW (11.5-15.5) % Sodium (137-145) mmol/L Carbon Dioxide (22-30) mmol/L BUN (7-17) mg/dL POC Glucose (mg/dL) 277 H 147 H 218 H (70-110) mg/dL Total Protein (6.3-8.2) g/dL Albumin (3.5-5.0) g/dL 01/31/23 01/31/23 01/31/23 Range/Units 07:01 07:01 11:14 RBC 3.76 L (3.80-5.40) m/uL Hgb 10.1 L (11.4-16.0) gm/dL Hct 31.8 L (34.0-46.0) % RDW 15.9 H (11.5-15.5) % Sodium 136 L (137-145) mmol/L Carbon Dioxide 31 H (22-30) mmol/L BUN 26 H (7-17) mg/dL POC Glucose (mg/dL) 157 H (70-110) mg/dL Total Protein 5.7 L (6.3-8.2) g/dL Albumin 3.0 L (3.5-5.0) g/dL Microbiology - Last 24 Hours (Table) 01/28/23 10:10 Blood Culture - Preliminary Blood 01/28/23 09:50 Blood Culture - Preliminary Blood 01/29/23 12:31 Gram Stain - Final Sputum Sputum Culture - Final [place] albicans Assessment and Plan Assessment: Acute on chronic hypoxemic respiratory failure secondary to an acute exacerbation of chronic obstructive pulmonary disease History of oxygen dependent chronic obstructive pulmonary disease Chronic and ongoing tobacco dependence History of cocaine and marijuana use History of bipolar disorder History of Crohn's disease History of seizure disorder History of atrial fibrillation, anticoagulated with Xarelto Hypertension Hyperlipidemia History of CVA/TIA Plan: The patient was seen and evaluated Labs and medications reviewed Still not back to baseline Change prednisone back to IV Solu-Medrol for another 24 hours Continue doxycycline, bronchodilators We'll continue to follow I have personally seen and examined the patient, performed the documentation and the assessment and plan as written. Number of minutes spent on the visit: 10.
[2023-01-31 13:09] LABS: Glucose,Whole Blood 112 mg/dL (70-110)
[2023-01-31 17:45] LABS: Glucose,Whole Blood 124 mg/dL (70-110)
[2023-01-31] MEDS: RIVAROXABAN 20 MG TAB PO SCH (18:06)
[2023-01-31] MEDS: QUEtiapine 400 MG TAB PO SCH (20:11)
[2023-01-31 22:15] LABS: Glucose,Whole Blood 262 mg/dL (70-110)
[2023-02-01] MEDS: methylPREDNISolone SOD SUCCI 125 MG/2 ML VIAL IV SCH ×2 (01:44→09:38)
--- NOTE | 2023-02-01 01:52 | PN ---
PROGRESS NOTE DATE OF SERVICE: 01/31/2023 SUBJECTIVE: This is a 62-year-old woman who was admitted with COPD acute exacerbation, is being closely monitored. The patient is on IV steroids. No chest pain. No palpitation. OBJECTIVE: VITAL SIGNS: Pulse is 97, blood pressure 92/57, respirations 18. CHEST: Bilateral scattered rhonchi and crackles. ABDOMEN: Soft. NERVOUS SYSTEM: Nonfocal. LABORATORY DATA: Reviewed. ASSESSMENT: 1. Chronic obstructive pulmonary disease acute exacerbation with acute purulent tracheobronchitis. 2. Hypertension. 3. Urinary tract infection ruled out. 4. Gastroesophageal reflux disease. 5. Hyponatremia. 6. Recent history of Crohn disease acute exacerbation. RECOMMENDATIONS: Recommend to continue current management and continue symptomatic treatment. Continue with bronchodilators and steroids. Closely follow with Pulmonary. Prognosis guarded. Further recommendations to follow. MMERONL / JEWELSN: [id number] /
[2023-02-01 05:59] LABS: Glucose,Whole Blood 176 mg/dL (70-110)
[2023-02-01] MEDS: INSULIN ASPART (NovoLOG) 100 UNIT/ML VIAL SQ SCH ×2 (06:08→17:39)
[2023-02-01 08:04] VITALS: BP 113/68; RESP 17; TEMP 97.8
[2023-02-01] MEDS: BUPRENORPHINE-NALOX 8-2 MG TAB 1 EACH TAB.SUBL SL SCH (09:36)
[2023-02-01] MEDS: DOXYCYCLINE 100 MG CAP PO SCH (09:37)
[2023-02-01] MEDS: METOPROLOL SUCCINATE (ER) 25 MG TAB.ER.24H PO SCH (09:37)
[2023-02-01] MEDS: PANTOPRAZOLE 40 MG TABLET PO SCH (09:37)
[2023-02-01] MEDS: IBUPROFEN 200 MG TAB PO SCH (09:37)
[2023-02-01] MEDS: levETIRAcetam 500 MG TAB PO SCH (09:37)
[2023-02-01] MEDS: GABAPENTIN 300 MG CAP PO SCH (09:38)
[2023-02-01] MEDS: FERROUS SULFATE 325 MG TAB PO SCH (09:38)
[2023-02-01] MEDS: NICOTINE 14MG/24HR PATCH TRANSDERM SCH (09:38)
[2023-02-01] MEDS: LORATADINE 10 MG TAB PO SCH (09:38)
[2023-02-01] MEDS: ACETAMINOPHEN TAB 325 MG TAB PO PRN (09:39)
[2023-02-01] MEDS: BUDESONIDE 1 MG/2 ML NEBU INHALATION SCH (09:59)
[2023-02-01] MEDS: FORMOTEROL FUMARATE 20 MCG/2 ML NEBU INHALATION SCH (09:59)
[2023-02-01] MEDS: IPRATROPIUM-ALBUTEROL 3 ML NEB INHALATION SCH ×2 (09:59→11:55)
--- NOTE | 2023-02-01 11:52 | P.PN ---
Subjective Progress Note Date: 02/01/23 This is a pleasant 62-year-old female patient with a history of chronic and ongoing tobacco dependence, chronic oxygen dependent chronic obstructive pulmonary disease, atrial fibrillation anticoagulated with Xarelto, Crohn's disease, seizure disorder, hypertension, hyperlipidemia, CVA/TIA, bipolar disorder, history of marijuana and cocaine use. Currently on Suboxone. She presented here to the hospital on 01/28/2023 with increasing shortness of breath. She was unable to use her nebulizer she was so short of breath and called EMS instead. She did feel better after receiving a treatment in [place] [facility]. Chest x-ray reveals chronic changes but no acute pulmonary process. Blood cultures pending. Sputum culture pending. White count 7.9. Hemoglobin 9.1. Sodium 138. Potassium 4.6. Bicarb 27. BUN 15. Creatinine 0.4. Glucose 135. She is seen today in consultation on the regular medical floor. Currently sitting up in bed. Awake and alert in no acute distress. Maintaining O2 saturations up to 99% on 2 L/m per nasal cannula. She's afebrile. Hemodynamically stable. She's been initiated and DuoNeb inhalations, Pulmicort and Perforomist inhalations, prednisone taper. Anticoagulated with Xarelto. The patient is seen today 01/31/2023 in follow-up on the regular medical floor. She is currently resting in bed. Awake and alert in no acute distress. Maintaining O2 saturations in the 90s on room air. She is still somewhat bronchospastic and wheezing. Sputum culture revealed [place]. Blood cultures are pending. White count 9.8. Hemoccult and 10.1. Platelets 342. Sodium 136. Potassium 4.6. Bicarb 31. BUN 26. Creatinine 0.55. Glucose 157. She is continued on DuoNeb inhalations, Pulmicort and Perforomist inhalations, prednisone taper. Empiric antibiotics in the form of doxycycline. NicoDerm patch is in place. Anticoagulated with Xarelto. The patient is seen today 02/01/2023 in follow-up on the regular medical floor. She is awake and alert in no acute distress. Maintaining good O2 saturations in the 90s on 2 L/m per nasal cannula. She does have home oxygen. She is feeling better and back to her baseline. She is continued on DuoNeb inhalations, Pulmicort and Perforomist inhalations, IV Solu-Medrol. NicoDerm patch in place. Empiric antibiotic for the form of doxycycline. Anticoagulated with Xarelto. Sputum was positive for [place]. Blood cultures revealed no growth. Objective - Vital Signs Vital signs: Vital Signs Temp 97.8 F 02/01/23 08:00 Pulse 80 02/01/23 08:00 Resp 17 02/01/23 08:00 BP 113/68 02/01/23 08:00 Pulse Ox 97 02/01/23 09:11 FiO2 Intake & Output 01/31/23 02/01/23 02/01/23 18:59 06:59 18:59 Intake Total 1080 Balance 1080 Intake: Oral 1080 Other: Voiding Method Toilet # Voids 1 2 - Exam GENERAL EXAM: Alert, pleasant 62-year-old female, on 2 L nasal cannula, fairly comfortable in no apparent distress. HEAD: Normocephalic. EYES: Normal reaction of pupils, equal size. NOSE: Clear with pink turbinates. THROAT: No erythema or exudates. NECK: No masses, no JVD. CHEST: No chest wall deformity. LUNGS: Equal air entry with faint bilateral end expiratory wheeze, diminished. CVS: S1 and S2 normal with no audible murmur, regular rhythm. ABDOMEN: No hepatosplenomegaly, normal bowel sounds, no guarding or rigidity. SPINE: No scoliosis or deformity SKIN: No rashes CENTRAL NERVOUS SYSTEM: No focal deficits, tone is normal in all 4 extremities. EXTREMITIES: There is no peripheral edema. No clubbing, no cyanosis. Peripheral pulses are intact. - Labs CBC & Chem 7: 01/31/23 07:01 01/31/23 07:01 Labs: Abnormal Lab Results - Last 24 Hours (Table) 01/31/23 01/31/23 01/31/23 Range/Units 12:57 17:38 22:14 POC Glucose (mg/dL) 112 H 124 H 262 H (70-110) mg/dL 02/01/23 Range/Units 05:58 POC Glucose (mg/dL) 176 H (70-110) mg/dL Microbiology - Last 24 Hours (Table) 01/28/23 10:10 Blood Culture - Preliminary Blood 01/28/23 09:50 Blood Culture - Preliminary Blood 01/29/23 12:31 Gram Stain - Final Sputum Sputum Culture - Final [place] albicans Assessment and Plan Assessment: Acute on chronic hypoxemic respiratory failure secondary to an acute ex acerbation of chronic obstructive pulmonary disease History of oxygen dependent chronic obstructive pulmonary disease Chronic and ongoing tobacco dependence History of cocaine and marijuana use History of bipolar disorder History of Crohn's disease History of seizure disorder History of atrial fibrillation, anticoagulated with Xarelto Hypertension Hyperlipidemia History of CVA/TIA Plan: The patient was seen and evaluated Medications reviewed Cleared for discharge from the pulmonary standpoint Complete a prednisone taper at 40 mg for 4 days Continue doxycycline, bronchodilators Follow-up in the office in 1 week I have personally seen and examined the patient, performed the documentation and the assessment and plan as written. Number of minutes spent on the visit: 10.
[2023-02-01 11:57] VITALS: PULSE 96
--- NOTE | 2023-02-02 09:08 | P.DS ---
Providers Date of admission: 01/28/23 13:59 Expected date of discharge: 02/01/23 Attending physician: Cynthia Zavala Consults: 01/29/23 17:13 Consult Physician Routine Consulting Provider: Dana Dahl Consult Reason/Comments: COPD Do you want consulting provider notified?: Yes Primary care physician: Daksha Steiner [place] [facility] Course: Final diagnosis Shortness of breath, secondary to COPD exacerbation with acute purulent tracheobronchitis Hypertension history Urinary tract infection, ruled out Gastroesophageal reflux disease History of Crohn's colitis hyponatremia Continued ongoing nicotine dependence Discharge disposition Patient is being discharged in a stable condition with guarded prognosis to home. Patient will follow-up with Dr. Steiner in the outpatient setting upon discharge. Patient is to continue with prednisone and outpatient follow-up with pulmonary Dr. Cortez as scheduled. Total time taken is greater than 35 minutes. Hospital course This is a 62-year-old female who was recently admitted with shortness of breath, COPD exacerbation. Patient evaluated by pulmonary maintained on IV steroids along with breathing treatments. Patient slow to improve although has been cleared by pulmonary and will continue prednisone taper. Please refer to consultation notes for further HPI. Currently no reports of chest pain, shortness of breath, or palpitations. Patient is afebrile. No reports of nausea or vomiting and patient is tolerating diet. Patient will be urged home today. Guarded prognosis and high risk for readmission this patient has had multiple hospitalizations for this. Patient is noncompliant and continues to use tobacco Physical exam: Gen: This is a 62-year-old female who is awake, alert and oriented 3, thin built, elderly appearing HEENT: Head is atraumatic, normocephalic. Pupils equal, round. Sclerae is anicteric. NECK: Supple. No JVD. No lymphadenopathy. No thyromegaly. LUNGS: Breath sounds bilaterally with scattered rhonchi noted. Forced expiratory wheezing noted No intercostal retractions. HEART: Regular rate and rhythm. No murmur. ABDOMEN: Soft. Bowel sounds are present. No masses. No tenderness. EXTREMITIES: No pedal edema. No calf tenderness. NEUROLOGICAL: Patient is awake, alert and oriented x3. Cranial nerves 2 through 12 are grossly intact. Please refer to medication reconciliation sheet for a list of medications. The impression and plan of care has been dictated by Angelita Diaz, Nurse Practitioner as directed. Dr. Aaron MD I have performed a history and examination and MDM of this patient, discussed the same with the dictator, and agree with the dictator's assessment and plan as written ,documented as a scribe. Based on total visit time, I have performed more than 50% of the visit. Patient Condition at Discharge: Fair Plan - Discharge Summary New Discharge Prescriptions: New Nicotine 14Mg/24Hr Patch [Habitrol] 1 patch TRANSDERM DAILY #30 patch predniSONE 10 mg PO DIRECTED #30 tab Doxycycline [Vibramycin] 100 mg PO BID 7 Days #14 cap Ipratropium-Albuterol Nebulize [Duoneb 0.5 mg-3 mg/3 ml Soln] 3 ml INHALATION RT-QID #100 each Continue Metoprolol Succinate (ER) [Toprol XL] 25 mg PO DAILY Buprenorphine HCl/Naloxone HCl [Suboxone 8 mg-2 mg Sl Film] 1 film SL DAILY Loratadine [Claritin] 10 mg PO DAILY Glycopyrrolate/Formoterol Fum [Bevespi Aerosphere Inhaler] 2 puff INHALATION RT-BID Fluticasone Nasal [place] [Flonase Nasal [place]] 1 spr EA NOSTRIL DAILY PRN PRN Reason: Allergy Symptoms levETIRAcetam [Keppra] 1,000 mg PO Q12H #60 tab QUEtiapine [SEROquel] 400 mg PO HS 30 Days #30 tab Acetaminophen Tab [Tylenol] 650 mg PO Q6HR PRN tab PRN Reason: Mild Pain Or Fever > 100.5 Ibuprofen [Motrin] 200 mg PO BID #10 tab Naloxone HCl 4 mg NS DIRECTED PRN PRN Reason: OVERDOSE Ferrous Sulfate [Iron (65 MG Elemental)] 325 mg PO BID Rivaroxaban [Xarelto] 20 mg PO W/SUPPER #30 tab Gabapentin [Neurontin] 300 mg PO TID Pantoprazole Sodium [Protonix] 40 mg PO DAILY Albuterol Sulfate [Albuterol Sulfate Hfa] 2 puff INHALATION RT-Q6H PRN #1 each PRN Reason: Shortness Of Breath Tiotropium 2.5 Mcg/Puff [Spiriva Respimat 2.5 Mcg] 2 puff INHALATION RT-DAILY 30 Days #1 each Calcium Carbonate [Tums] 1,000 mg PO QID PRN tab PRN Reason: Heartburn Dicyclomine [Bentyl] 10 mg PO BID PRN PRN Reason: Gi Upset Budesonide [Pulmicort] 0.5 mg INHALATION RT-BID Discontinued predniSONE See Taper PO DIRECTED Discharge Medication List Metoprolol Succinate (ER) [Toprol XL] 25 mg PO DAILY 02/21/18 [History] Buprenorphine HCl/Naloxone HCl [Suboxone 8 mg-2 mg Sl Film] 1 film SL DAILY 04/15/18 [History] Loratadine [Claritin] 10 mg PO DAILY 11/09/18 [History] Glycopyrrolate/Formoterol Fum [Bevespi Aerosphere Inhaler] 2 puff INHALATION RT- BID 11/24/19 [History] Fluticasone Nasal [place] [Flonase Nasal [place]] 1 spr EA NOSTRIL DAILY PRN 03/27/20 [History] Rivaroxaban [Xarelto] 20 mg PO W/SUPPER #30 tab 08/08/22 [Rx] levETIRAcetam [Keppra] 1,000 mg PO Q12H #60 tab 08/08/22 [Rx] Albuterol Sulfate [Albuterol Sulfate Hfa] 2 puff INHALATION RT-Q6H PRN #1 each 10/04/22 [Rx] Gabapentin [Neurontin] 300 mg PO TID 10/04/22 [History] Pantoprazole Sodium [Protonix] 40 mg PO DAILY 10/04/22 [History] QUEtiapine [SEROquel] 400 mg PO HS 30 Days #30 tab 10/04/22 [Rx] Acetaminophen Tab [Tylenol] 650 mg PO Q6HR PRN tab 12/05/22 [Rx] Calcium Carbonate [Tums] 1,000 mg PO QID PRN tab 12/05/22 [Rx] Ibuprofen [Motrin] 200 mg PO BID #10 tab 12/05/22 [Rx] Tiotropium 2.5 Mcg/Puff [Spiriva Respimat 2.5 Mcg] 2 puff INHALATION RT-DAILY 30 Days #1 each 12/05/22 [Rx] Dicyclomine [Bentyl] 10 mg PO BID PRN 12/07/22 [History] Naloxone HCl 4 mg NS DIRECTED PRN 12/07/22 [History] Ferrous Sulfate [Iron (65 MG Elemental)] 325 mg PO BID 01/19/23 [History] Budesonide [Pulmicort] 0.5 mg INHALATION RT-BID 01/28/23 [History] Doxycycline [Vibramycin] 100 mg PO BID 7 Days #14 cap 02/01/23 [Rx] Ipratropium-Albuterol Nebulize [Duoneb 0.5 mg-3 mg/3 ml Soln] 3 ml INHALATION RT-QID #100 each 02/01/23 [Rx] Nicotine 14Mg/24Hr Patch [Habitrol] 1 patch TRANSDERM DAILY #30 patch 02/01/23 [Rx] predniSONE 10 mg PO DIRECTED #30 tab 02/01/23 [Rx] Follow up Appointment(s)/Referral(s): Daksha Steiner MD [Primary Care Provider] - 1-2 days Jaun Cortez MD [STAFF PHYSICIAN] - 1 Week Activity/Diet/Wound Care/Special Instructions: Activity Limited until follow-up Follow-up primary care provider on discharge Follow pulmonary outpatient avoid tobacco use Continue taking medications as prescribed Discharge Disposition: HOME SELF-CARE
== END 2023-02-01 14:57 | disposition home or self-care (01) | DRG 140 ==
LOC: EC 09:40 → OBSVTOIN 13:59 → 6NMEDSUR 13:59
PROVIDERS: ADMIT Internal Medicine; ATTEND Internal Medicine
DX: J44.0 Chronic obstructive pulmonary disease with (acute) lower respiratory infection (principal); F17.210 Nicotine dependence, cigarettes, uncomplicated; J44.1 Chronic obstructive pulmonary disease with (acute) exacerbation; Z71.3 Dietary counseling and surveillance; Z28.311 Partially vaccinated for COVID-19; Z99.81 Dependence on supplemental oxygen; K21.9 Gastro-esophageal reflux disease without esophagitis; I48.0 Paroxysmal atrial fibrillation; Z79.01 Long term (current) use of anticoagulants; F12.11 Cannabis abuse, in remission; G40.909 Epilepsy, unspecified, not intractable, without status epilepticus; E78.5 Hyperlipidemia, unspecified; E86.1 Hypovolemia; F14.11 Cocaine abuse, in remission; I10 Essential (primary) hypertension; R91.1 Solitary pulmonary nodule; E87.1 Hypo-osmolality and hyponatremia; N39.0 Urinary tract infection, site not specified; F31.9 Bipolar disorder, unspecified; F41.9 Anxiety disorder, unspecified; I25.10 Atherosclerotic heart disease of native coronary artery without angina pectoris; K50.90 Crohn's disease, unspecified, without complications; M19.90 Unspecified osteoarthritis, unspecified site; Z79.899 Other long term (current) drug therapy; Z82.49 Family history of ischemic heart disease and other diseases of the circulatory system; Z86.73 Personal history of transient ischemic attack (TIA), and cerebral infarction without residual deficits; Z87.01 Personal history of pneumonia (recurrent); Z88.1 Allergy status to other antibiotic agents; Z88.8 Allergy status to other drugs, medicaments and biological substances
CPT/HCPCS: 36415; 71046; 80048; 80053; 81003; 83036; 83605; 83735; 84484; 85025; 85610; 85730; 87070; 87205; 93005; 94640; 94760

== ENCOUNTER 2023-03-20 11:43 | Inpatient (IN) | payer OTHER ==
[2023-03-20] MEDS ORDERED: ONDANSETRON 4 MG/2 ML VIAL IVP STA (12:05)
[2023-03-20] MEDS ORDERED: SODIUM CHLORIDE 0.9% 2,000 ML IV STA (12:05)
[2023-03-20] MEDS ORDERED: PANTOPRAZOLE 40 MG/10 ML VIAL IVP STA (12:05)
[2023-03-20] MEDS ORDERED: MORPHINE SULFATE 4 MG/ML SYRINGE IVP STA ×2 (12:05→15:10)
[2023-03-20 12:37] LABS: Basophils % (A) 0 %; Eosinophils # (A) 0.2 k/uL (0-0.7); Eosinophils % (A) 1 %; HCT 34.4 % (34.0-46.0); HGB 11.3 gm/dL (11.4-16.0); Lymphocytes # (A) 1.3 k/uL (1.0-4.8); Lymphocytes % (A) 11 %; MCH 26.3 pg (25.0-35.0); MCHC 32.9 g/dL (31.0-37.0); Mean Platelet Volume 6.9; Monocytes # (A) 0.6 k/uL (0-1.0); Monocytes % (A) 5 %; Neutrophils # (A) 9.7 k/uL (1.3-7.7); Neutrophils % (A) 82 %; Platelet Count 421 k/uL (150-450); RDW 13.3 % (11.5-15.5); WBC 11.8 k/uL (3.8-10.6)
[2023-03-20 12:50] LABS: Partial Thromboplastin Time 24.8 sec (22.0-30.0); Prothrombin Time 10.2 sec (9.0-12.0)
[2023-03-20 12:56] LABS: ALT 10 U/L (4-34); AST 19 U/L (14-36); African American GFR (CKD) >90 (>60 ml/min/1.73 sqM); Albumin 3.4 g/dL (3.5-5.0); Alkaline Phosphatase 89 U/L (38-126); Amylase 41 U/L (30-110); Anion Gap 7 mmol/L; Blood Urea Nitrogen 8 mg/dL (7-17); Calcium 8.8 mg/dL (8.4-10.2); Carbon Dioxide 33 mmol/L (22-30); Chloride 95 mmol/L (98-107); Glucose 133 mg/dL (74-99); Lipase 38 U/L (23-300); Non-African American GFR(CKD) >90 (>60 ml/min/1.73 sqM); Potassium 4.3 mmol/L (3.5-5.1); Sodium 135 mmol/L (137-145); Total Bilirubin 0.4 mg/dL (0.2-1.3); Total Protein 6.6 g/dL (6.3-8.2)
--- NOTE | 2023-03-20 13:15 | XR ---
EXAMINATION TYPE: XR chest 2V DATE OF EXAM: 03/20/2023 COMPARISON: 01/28/2023 INDICATION: Abdomen pain TECHNIQUE: Frontal and lateral views of the chest are obtained. FINDINGS: The heart size is normal. The pulmonary vasculature is normal. The lungs are clear. Chronic changes appear stable. IMPRESSION: 1. No acute pulmonary process.
[2023-03-20] MEDS ORDERED: IPRATROPIUM-ALBUTEROL 3 ML NEB INHALATION STA (13:32)
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
--- NOTE | 2023-03-20 14:37 | CT ---
EXAMINATION TYPE: CT abdomen pelvis w con DATE OF EXAM: 03/20/2023 COMPARISON: 12/02/2022 HISTORY: Nausea and vomiting, generalized abdominal pain CT DLP: 566.4 mGycm CONTRAST: CT scan of the abdomen and pelvis is performed without Oral Contrast and with IV Contrast, patient in jected with 100 mL of Isovue 300. FINDINGS: LUNG BASES-: No visible nodule. No infiltrate. LIVER/GB: No calcified gallstones. No space occupying hepatic lesion. Biliary tree is of normal ca liber. PANCREAS: No inflammation. No distinct mass. SPLEEN: No splenic enlargement. No lesion seen. ADRENALS: No nodule. No thickening. KIDNEYS/BLADDER: No hydronephrosis. No nephrolithiasis. No distinct renal mass. Urinary bladder g rossly unremarkable. BOWEL: Again noted is diffuse wall thickening involving the colon extending from the sigmoid colon th rough the ascending colon. There is a history of inflammatory bowel disease, Although infectious coli tis is certainly not excluded. Small bowel is of normal caliber. No evidence for abscess or free air. GENITAL ORGANS: No gross abnormality. LYMPH NODES: No greater than 1cm abdominal or pelvic lymph nodes are appreciated. AORTA: No significant abnormality. OSSEOUS STRUCTURES: No significant abnormality is seen. OTHER: No significant additional abnormality is seen. IMPRESSION: 1. Again noted is diffuse wall thickening involving the colon extending from the sigmoid colon throug h the ascending colon. There is a history of inflammatory bowel disease, Although infectious colitis is certainly not excluded.
[2023-03-20] MEDS ORDERED: SODIUM CHLORIDE 0.9% 1,000 ML IV STA (15:10)
[2023-03-20] MEDS ORDERED: NALOXONE 0.4 MG/ML 1 ML VIAL IV PRN (15:14)
[2023-03-20] MEDS ORDERED: ALBUTEROL NEBULIZED 2.5 MG/3 ML INHALATION PRN (15:15)
[2023-03-20 15:23] LABS: Amorphous Sediment,Urine Few /hpf; Appearance,Urine Cloudy (Clear); Bacteria,Urine Rare /hpf; Bilirubin,Urine Negative (Negative); Blood,Urine Negative (Negative); Color,Urine Light Yellow; Glucose,Urine (UA) Negative (Negative); Leukocyte Esterase,Urine Negative (Negative); Mucus,Urine Rare /hpf; Nitrite,Urine Negative (Negative); PH, Urine 7.5 (5.0-8.0); Protein,Urine Negative (Negative); RBC,Urine 1 /hpf (0-5); Specific Gravity,Urine 1.018 (1.001-1.035); Urobilinogen,Urine <2.0 mg/dL (<2.0); WBC,Urine 2 /hpf (0-5)
[2023-03-20 15:24] LABS: Ketones,Urine 2+ (Negative)
[2023-03-20] MEDS: methylPREDNISolone SOD SUCCI 40 MG/ML 1 ML VIAL IV SCH ×2 (15:28→23:52)
[2023-03-20] MEDS ORDERED: METOPROLOL SUCCINATE (ER) 25 MG TAB.ER.24H PO STA (15:40)
[2023-03-20] MEDS: GABAPENTIN 300 MG CAP PO SCH ×2 (16:11→21:00)
[2023-03-20] MEDS: IPRATROPIUM-ALBUTEROL 3 ML NEB INHALATION SCH ×2 (16:44→20:06)
[2023-03-20] MEDS ORDERED: traMADol 50 MG TAB PO PRN (18:41)
[2023-03-20] MEDS ORDERED: ACETAMINOPHEN TAB 325 MG TAB PO PRN (18:42)
[2023-03-20] MEDS: RIVAROXABAN 20 MG TAB PO SCH (18:49)
[2023-03-20] MEDS: ONDANSETRON 4 MG/2 ML VIAL IVP PRN (18:50)
[2023-03-20] MEDS: MORPHINE SULFATE 2 MG/ML SYRINGE IVP PRN (18:50)
[2023-03-20] MEDS: FORMOTEROL FUMARATE 20 MCG/2 ML NEBU INHALATION SCH (20:06)
[2023-03-20] MEDS ORDERED: lisinopriL 5 MG TAB PO STA (20:16)
[2023-03-20] MEDS: levETIRAcetam 500 MG TAB PO SCH (20:32)
[2023-03-20] MEDS: NICOTINE 21MG/24HR PATCH TRANSDERM SCH (20:32)
[2023-03-20] MEDS: FERROUS SULFATE 325 MG TAB PO SCH (20:32)
[2023-03-20] MEDS: QUEtiapine 400 MG TAB PO SCH (21:00)
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
[2023-03-21] MEDS: MORPHINE SULFATE 2 MG/ML SYRINGE IVP PRN ×6 (01:33→21:32)
[2023-03-21] MEDS: ONDANSETRON 4 MG/2 ML VIAL IVP PRN ×3 (05:09→21:02)
[2023-03-21 06:15] LABS: Basophils % (A) 0 %; Eosinophils % (A) 0 %; HCT 34.3 % (34.0-46.0); HGB 11.2 gm/dL (11.4-16.0); Lymphocytes # (A) 1.1 k/uL (1.0-4.8); Lymphocytes % (A) 14 %; MCH 26.4 pg (25.0-35.0); MCHC 32.6 g/dL (31.0-37.0); Mean Platelet Volume 7.2; Monocytes # (A) 0.2 k/uL (0-1.0); Monocytes % (A) 3 %; Neutrophils # (A) 6.7 k/uL (1.3-7.7); Neutrophils % (A) 83 %; Platelet Count 414 k/uL (150-450); RBC 4.24 m/uL (3.80-5.40); RDW 13.4 % (11.5-15.5); WBC 8.1 k/uL (3.8-10.6)
[2023-03-21 06:24] LABS: African American GFR (CKD) >90 (>60 ml/min/1.73 sqM); Anion Gap 12 mmol/L; Blood Urea Nitrogen 5 mg/dL (7-17); Calcium 8.1 mg/dL (8.4-10.2); Carbon Dioxide 22 mmol/L (22-30); Chloride 97 mmol/L (98-107); Glucose 114 mg/dL (74-99); Non-African American GFR(CKD) >90 (>60 ml/min/1.73 sqM); Potassium 4.5 mmol/L (3.5-5.1); Sodium 131 mmol/L (137-145)
[2023-03-21] MEDS: PANTOPRAZOLE 40 MG/10 ML VIAL IV SCH (08:52)
[2023-03-21] MEDS: FERROUS SULFATE 325 MG TAB PO SCH ×2 (08:53→21:02)
[2023-03-21] MEDS: levETIRAcetam 500 MG TAB PO SCH ×2 (08:53→21:02)
[2023-03-21] MEDS: GABAPENTIN 300 MG CAP PO SCH ×3 (08:53→21:02)
[2023-03-21] MEDS: METOPROLOL SUCCINATE (ER) 25 MG TAB.ER.24H PO SCH (08:53)
[2023-03-21] MEDS: Buprenorphine Hcl/Naloxone Hcl [Suboxone 8 Mg-2 Mg Sl Film] 1 EACH Fil SUBLINGUAL SCH (08:53)
[2023-03-21] MEDS: methylPREDNISolone SOD SUCCI 40 MG/ML 1 ML VIAL IV SCH ×3 (08:53→23:53)
[2023-03-21] MEDS: NICOTINE 21MG/24HR PATCH TRANSDERM SCH (08:53)
[2023-03-21] MEDS: FLUTICASONE 50MCG/SPRAY NASAL 16GM EA NOSTRIL SCH (08:53)
[2023-03-21] MEDS: FORMOTEROL FUMARATE 20 MCG/2 ML NEBU INHALATION SCH ×2 (09:10→19:50)
[2023-03-21] MEDS: IPRATROPIUM-ALBUTEROL 3 ML NEB INHALATION SCH ×4 (09:10→19:51)
[2023-03-21] MEDS: TIOTROPIUM 2.5 MCG INHALER INHALATION SCH (09:11)
[2023-03-21 12:29] VITALS: BMI 16.5
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
[2023-03-21] MEDS ORDERED: methylPREDNISolone SOD SUCCI 40 MG/ML 1 ML VIAL IV SCH (16:00)
[2023-03-21] MEDS: RIVAROXABAN 20 MG TAB PO SCH (17:27)
[2023-03-21] MEDS: QUEtiapine 400 MG TAB PO SCH (21:02)
[2023-03-22] MEDS: MORPHINE SULFATE 2 MG/ML SYRINGE IVP PRN ×5 (03:13→20:56)
[2023-03-22 06:34] LABS: Basophils % (A) 0 %; Eosinophils % (A) 0 %; Lymphocytes # (A) 1.4 k/uL (1.0-4.8); Lymphocytes % (A) 10 %; MCH 25.6 pg (25.0-35.0); MCHC 32.3 g/dL (31.0-37.0); MCV 79.4 fL (80.0-100.0); Mean Platelet Volume 6.7; Monocytes # (A) 0.4 k/uL (0-1.0); Monocytes % (A) 3 %; Neutrophils # (A) 12.5 k/uL (1.3-7.7); Neutrophils % (A) 87 %; Platelet Count 423 k/uL (150-450); RBC 4.28 m/uL (3.80-5.40); RDW 13.3 % (11.5-15.5); WBC 14.4 k/uL (3.8-10.6)
[2023-03-22 06:40] LABS: African American GFR (CKD) >90 (>60 ml/min/1.73 sqM); Anion Gap 5 mmol/L; Blood Urea Nitrogen 8 mg/dL (7-17); Calcium 8.3 mg/dL (8.4-10.2); Carbon Dioxide 29 mmol/L (22-30); Chloride 99 mmol/L (98-107); Glucose 123 mg/dL (74-99); Non-African American GFR(CKD) >90 (>60 ml/min/1.73 sqM); Potassium 4.1 mmol/L (3.5-5.1); Sodium 133 mmol/L (137-145)
[2023-03-22] MEDS: TIOTROPIUM 2.5 MCG INHALER INHALATION SCH (08:53)
[2023-03-22] MEDS: IPRATROPIUM-ALBUTEROL 3 ML NEB INHALATION SCH ×4 (08:53→20:21)
[2023-03-22] MEDS: FORMOTEROL FUMARATE 20 MCG/2 ML NEBU INHALATION SCH ×2 (08:53→20:21)
[2023-03-22] MEDS: methylPREDNISolone SOD SUCCI 40 MG/ML 1 ML VIAL IV SCH ×3 (08:58→22:56)
[2023-03-22] MEDS: GABAPENTIN 300 MG CAP PO SCH ×3 (08:58→20:57)
[2023-03-22] MEDS: METOPROLOL SUCCINATE (ER) 25 MG TAB.ER.24H PO SCH (08:58)
[2023-03-22] MEDS: levETIRAcetam 500 MG TAB PO SCH ×2 (08:58→20:57)
[2023-03-22] MEDS: PANTOPRAZOLE 40 MG/10 ML VIAL IV SCH (08:58)
[2023-03-22] MEDS: NICOTINE 21MG/24HR PATCH TRANSDERM SCH (08:59)
[2023-03-22] MEDS: FLUTICASONE 50MCG/SPRAY NASAL 16GM EA NOSTRIL SCH (08:59)
[2023-03-22] MEDS: FERROUS SULFATE 325 MG TAB PO SCH ×2 (08:59→20:57)
[2023-03-22] MEDS: Buprenorphine Hcl/Naloxone Hcl [Suboxone 8 Mg-2 Mg Sl Film] 1 EACH Fil SUBLINGUAL SCH (09:00)
[2023-03-22] MEDS: ONDANSETRON 4 MG/2 ML VIAL IVP PRN ×2 (09:10→22:56)
--- NOTE | 2023-03-22 09:48 | P.PN ---
Subjective Progress Note Date: 03/22/23 Principal diagnosis: Crohn's flare This 62-year-old female who had presented to the emergency department with complaints of abdominal pain. She has a past medical history including Crohn's disease, COPD with hypoxia, atrial fibrillation on xarelto, coronary artery disease, CVA/TIA, hyperlipidemia, hypertension, and seizure disorder. Patient states she has been having abdominal pain, diarrhea and nausea and vomiting. She denies any blood in her diarrhea or any hematemesis. She has a history of Crohn's disease was diagnosed a few years ago. Last EGD colonoscopy in [address] Yen with the EGD findings of mild gastritis and colonoscopy of ileocolitis and diverticulosis. Patient had been on mesalamine and Bentyl at one time however currently not on any medications and she has been noncompliant with her appointments and has been discharged from the practice. She has not sought out another GI since that time. It appears that she has been hospitalized multiple times since August for abdominal pain. She denies any fevers or chills. She is afebrile. She is still complaining of abdominal pain, diffuse, no diarrhea today. Still having some nausea. She had a CT of the abdomen and pelvis that reported diffuse wall thickening involving the colon extending from the sigmoid colon through the ascending colon. With a history of inflammatory bowel disease, infectious colitis certainly not excluded. Patient was started on Solu-Medrol 20 mg every 8 hours. 03/22/2023 Patient is seen and examined today as a follow-up. She is still complaining of lower abdominal pain. She has not had any further bowel movements since she's been in the hospital. No further vomiting has some mild nausea. Currently on Solu-Medrol 20 mg every 8 hours. No acute changes through the night. She has been afebrile. She is tolerating a clear liquid diet. Objective - Vital Signs Vital signs: Vital Signs Temp 97.7 F 03/22/23 03:33 Pulse 95 03/22/23 03:33 Resp 16 03/22/23 03:33 BP 129/72 03/22/23 03:33 Pulse Ox 94 L 03/22/23 03:33 FiO2 32 03/20/23 20:07 Intake & Output 03/21/23 03/22/23 03/22/23 18:59 06:59 18:59 Intake Total 590 Balance 590 Weight 49.442 kg Intake: Oral 590 Other: # Voids 2 3 - Exam General appearance: The patient is alert, oriented, appears in no acute distress. HET: Head is normocephalic and atraumatic. Conjunctiva pink. Sclera anicteric. Neck: Supple without lymphadenopathy. Abdomen: Soft, thin, lower abdominal tenderness, nondistended with bowel sounds. No guarding or rigidity. Extremities: Normal skin color and turgor. No pedal edema Skin: No rashes, no jaundice Neurological: No focal deficits. Alert and oriented. - Labs CBC & Chem 7: 03/22/23 06:07 03/22/23 06:07 Labs: Abnormal Lab Results - Last 24 Hours (Table) 03/21/23 03/21/23 03/22/23 Range/Units 05:12 05:12 06:07 WBC 14.4 H (3.8-10.6) k/uL Hgb 11.0 L (11.4-16.0) gm/dL MCV 79.4 L (80.0-100.0) fL Neutrophils # 12.5 H (1.3-7.7) k/uL ESR 41 H (0-20) mm/hr Sodium (137-145) mmol/L Glucose (74-99) mg/dL Calcium (8.4-10.2) mg/dL C-Reactive Protein 4.7 H (<1.0) mg/dL 03/22/23 Range/Units 06:07 WBC (3.8-10.6) k/uL Hgb (11.4-16.0) gm/dL MCV (80.0-100.0) fL Neutrophils # (1.3-7.7) k/uL ESR (0-20) mm/hr Sodium 133 L (137-145) mmol/L Glucose 123 H (74-99) mg/dL Calcium 8.3 L (8.4-10.2) mg/dL C-Reactive Protein (<1.0) mg/dL Assessment and Plan (1) Crohn's disease Narrative/Plan: 62-year-old with a history of Crohn's disease diagnosed in 2018 who does not currently follow up with gastroenterology as she has been discharged for noncompliance of appointments and has not sought out new GI for treatment of her Crohn's presented with abdominal pain with elevation of CRP and a computed tomography scan showing inflammation in the colon. Patient likely has Crohn's exacerbation, experiencing abdominal pain with nausea vomiting and nonbloody diarrhea. Diarrhea has improved. Patient started on IV Solu-Medrol 20 mg every 8 hours, will increase to 40 mg every 8 hours. Discussed with patient importance of medical compliance and that she needs to establish with a new frozen meat cutter. Continue symptomatic and supportive care at this time. Discussed with patient will keep for 1 more night on IV steroids and will prescribe outpatient taper steroid. Patient verbalized understanding. Also discussed with patient importance of medical compliance and keeping medical appointments. Will plan to schedule patient for follow-up in 1-2 weeks and schedule outpatient colonoscopy at that time. Current Visit: Yes Status: Acute Code(s): K50.90 - CROHN'S DISEASE, UNSP ECIFIED, WITHOUT COMPLICATIONS SNOMED Code(s): 16580591 (2) Abdominal pain Current Visit: No Status: Acute Code(s): R10.9 - UNSPECIFIED ABDOMINAL PAIN SNOMED Code(s): 57333783 (3) COPD (chronic obstructive pulmonary disease) Current Visit: No Status: Acute Code(s): J44.9 - CHRONIC OBSTRUCTIVE PULMONARY DISEASE, UNSPECIFIED SNOMED Code(s): 48510853 (4) Nicotine dependence Current Visit: Yes Status: Acute Code(s): F17.200 - NICOTINE DEPENDENCE, UNSPECIFIED, UNCOMPLICATED SNOMED Code(s): 37557883 Plan: 1. Continue symptomatic and supportive care 2. Encourage ambulation 3. Advance to low-fat diet 4. Continue IV Solu-Medrol 20 mg every 8 hours, will transition to oral prednisone on discharge. Tapered dose discussed with patient and prescription sent to patient's pharmacy 5. Discussed with patient importance of medical compliance and need for follow- up with gastroenterology 6. Recommend patient stay in the hospital for another 24 hours, then may be discharged with follow-up with gastroenterology 7. Also discussed with patient tobacco cessation Thank you for this consultation, we will sign off at this time. Dr. Jack Younger I agree with the dictator's note, documented as a scribe by Kajal Napier.
[2023-03-22] MEDS: RIVAROXABAN 20 MG TAB PO SCH (15:57)
[2023-03-22] MEDS: QUEtiapine 400 MG TAB PO SCH (20:57)
[2023-03-23] MEDS: MORPHINE SULFATE 2 MG/ML SYRINGE IVP PRN ×6 (00:54→22:41)
[2023-03-23 08:00] LABS: Basophils % (A) 0 %; Eosinophils % (A) 0 %; HCT 35.7 % (34.0-46.0); HGB 11.3 gm/dL (11.4-16.0); Lymphocytes # (A) 2.4 k/uL (1.0-4.8); Lymphocytes % (A) 18 %; MCH 25.7 pg (25.0-35.0); MCHC 31.7 g/dL (31.0-37.0); Mean Platelet Volume 6.6; Monocytes # (A) 0.8 k/uL (0-1.0); Monocytes % (A) 6 %; Neutrophils # (A) 10.2 k/uL (1.3-7.7); Neutrophils % (A) 76 %; Platelet Count 457 k/uL (150-450); RDW 13.6 % (11.5-15.5); WBC 13.4 k/uL (3.8-10.6)
[2023-03-23] MEDS: methylPREDNISolone SOD SUCCI 40 MG/ML 1 ML VIAL IV SCH ×2 (08:16→16:16)
[2023-03-23] MEDS: Buprenorphine Hcl/Naloxone Hcl [Suboxone 8 Mg-2 Mg Sl Film] 1 EACH Fil SUBLINGUAL SCH (08:17)
[2023-03-23] MEDS: PANTOPRAZOLE 40 MG/10 ML VIAL IV SCH (08:17)
[2023-03-23] MEDS: METOPROLOL SUCCINATE (ER) 25 MG TAB.ER.24H PO SCH (08:21)
[2023-03-23] MEDS: levETIRAcetam 500 MG TAB PO SCH ×2 (08:21→22:42)
[2023-03-23] MEDS: FERROUS SULFATE 325 MG TAB PO SCH ×2 (08:21→22:42)
[2023-03-23] MEDS: GABAPENTIN 300 MG CAP PO SCH ×3 (08:21→22:42)
[2023-03-23] MEDS: FLUTICASONE 50MCG/SPRAY NASAL 16GM EA NOSTRIL SCH (08:22)
[2023-03-23] MEDS: NICOTINE 21MG/24HR PATCH TRANSDERM SCH (08:22)
[2023-03-23 08:44] LABS: African American GFR (CKD) >90 (>60 ml/min/1.73 sqM); Anion Gap 7 mmol/L; Blood Urea Nitrogen 13 mg/dL (7-17); Calcium 8.5 mg/dL (8.4-10.2); Carbon Dioxide 31 mmol/L (22-30); Chloride 97 mmol/L (98-107); Glucose 104 mg/dL (74-99); Non-African American GFR(CKD) >90 (>60 ml/min/1.73 sqM); Sodium 135 mmol/L (137-145)
[2023-03-23] MEDS: FORMOTEROL FUMARATE 20 MCG/2 ML NEBU INHALATION SCH ×2 (09:02→20:53)
[2023-03-23] MEDS: IPRATROPIUM-ALBUTEROL 3 ML NEB INHALATION SCH ×4 (09:03→20:54)
[2023-03-23] MEDS: TIOTROPIUM 2.5 MCG INHALER INHALATION SCH (09:03)
[2023-03-23] MEDS: RIVAROXABAN 20 MG TAB PO SCH (16:16)
[2023-03-23] MEDS: QUEtiapine 400 MG TAB PO SCH (22:42)
[2023-03-24] MEDS: methylPREDNISolone SOD SUCCI 40 MG/ML 1 ML VIAL IV SCH ×2 (00:43→08:17)
[2023-03-24] MEDS: MORPHINE SULFATE 2 MG/ML SYRINGE IVP PRN ×2 (01:41→05:51)
[2023-03-24 08:12] VITALS: BP 198/98; PULSE 90; RESP 18; TEMP 98
[2023-03-24] MEDS: ONDANSETRON 4 MG/2 ML VIAL IVP PRN (08:15)
[2023-03-24] MEDS: PANTOPRAZOLE 40 MG/10 ML VIAL IV SCH (08:17)
[2023-03-24] MEDS: FLUTICASONE 50MCG/SPRAY NASAL 16GM EA NOSTRIL SCH (08:18)
[2023-03-24] MEDS: GABAPENTIN 300 MG CAP PO SCH (08:23)
[2023-03-24] MEDS: FERROUS SULFATE 325 MG TAB PO SCH (08:23)
[2023-03-24] MEDS: levETIRAcetam 500 MG TAB PO SCH (08:23)
[2023-03-24] MEDS: NICOTINE 21MG/24HR PATCH TRANSDERM SCH (08:24)
[2023-03-24] MEDS: METOPROLOL SUCCINATE (ER) 25 MG TAB.ER.24H PO SCH (08:24)
[2023-03-24] MEDS: IPRATROPIUM-ALBUTEROL 3 ML NEB INHALATION SCH ×2 (08:37→11:51)
[2023-03-24] MEDS: TIOTROPIUM 2.5 MCG INHALER INHALATION SCH (08:37)
[2023-03-24] MEDS: FORMOTEROL FUMARATE 20 MCG/2 ML NEBU INHALATION SCH (08:37)
[2023-03-24] MEDS: Buprenorphine Hcl/Naloxone Hcl [Suboxone 8 Mg-2 Mg Sl Film] 1 EACH Fil SUBLINGUAL SCH (11:19)
--- NOTE | 2023-03-24 23:20 | P.PN ---
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 Vomitus is nonbilious. Denies any diarrhea. Patient states that her pain is mainly in the epigastric and also mid abdomen. Patient is also complaining of shortness of breath. No complaints of chest pain. No fever no chills. Patient is on home oxygen at 2 L via nasal cannula. Patient was admitted to the hospital multiple times with similar complaints. Denies any fever or chills. No cough or sputum chest x-ray showed no acute pulmonary process. EKG showed atrial flutter/tachycardia with rapid ventricular response. Heart rate 102. CT of the abdomen pelvis showed diffuse wall thickening involving the colon extending from the sigmoid colon through the ascending colon. There is a history of inflammatory bowel disease. Although infectious colitis is certainly not excluded. Laboratory pressure WBC 11.8 hemoglobin 11.3 and platelets 421 Sodium 135 potassium 4.3 chloride 95 bicarb is 33 BUN 18 creatinine 0.47 Urinalysis showed cloudy with 2+ ketones and RBCs 1 and WBC is 2. Plain GBA, B, RSV PCR and COVID-19 PCR not detected. 03/21/2023 Patient is currently lying in bed. Awake alert and oriented x3. Still co mplains of abdominal pain. Patient is still nauseated and states that she is not able to tolerate oral diet. No complaints of diarrhea. Breathing status is better. No complaint of chest pain. Patient has been afebrile. No headache or dizziness or lightheadedness. Patient was seen by gastroente rology and recommends to continue Solu-Medrol increase the dose 40 Q8 hourly. CRP level is 4.7. Other laboratory showed WBC 8.1 hemoglobin 11.2 and platelets 414 Sodium 131 potassium 4.5 chloride 97 bicarb is 5 BUN 5 and creatinine 0.5., Calcium 8.1 Current medications reviewed. Objective - Vital Signs Vital signs: Vital Signs Temp 98.5 F 03/22/23 19:18 Pulse 92 03/22/23 20:39 Resp 16 03/22/23 19:18 BP 116/72 03/22/23 19:18 Pulse Ox 94 L 03/22/23 19:18 FiO2 32 03/20/23 20:07 Intake & Output 03/22/23 03/22/23 03/23/23 06:59 18:59 06:59 Intake Total 590 360 Balance 590 360 Weight 49.442 kg Intake: Oral 590 360 Other: # Voids 3 2 # Bowel Movements 1 - Exam PHYSICAL EXAMINATION: Patient is lying in the bed comfortably, no acute distress, awake alert and oriented.. HEENT: Normocephalic. Neck is supple. Pupils reactive. Nostrils clear. Oral cavity is moist. Neck reveals no JVD, carotid bruits, or thyromegaly. CHEST EXAMINATION: Trachea is central. Symmetrical expansion. Bilateral expiratory wheezing. Nonlabored breathing.. CARDIAC: Normal S1, S2 with no gallops. No murmurs ABDOMEN: Soft. Bowel sounds present. Mild left lower quadrant tenderness. No guarding or rigidity.. No organomegaly. No abdominal bruits. Extremities: reveal no edema. No clubbing or cyanosis Neurologically awake, alert, oriented x3 with well-coordinated movements. No focal deficits noted Skin: No rash or skin lesions. Psychiatric: Coperative. Nonsuicidal, anxious. Musculoskeletal: No joint swelling or deformity. Normal range of motion. - Labs CBC & Chem 7: 03/23/23 07:07 03/23/23 07:07 Labs: Abnormal Lab Results - Last 24 Hours (Table) 03/22/23 03/22/23 Range/Units 06:07 06:07 WBC 14.4 H (3.8-10.6) k/uL Hgb 11.0 L (11.4-16.0) gm/dL MCV 79.4 L (80.0-100.0) fL Neutrophils # 12.5 H (1.3-7.7) k/uL Sodium 133 L (137-145) mmol/L Glucose 123 H (74-99) mg/dL Calcium 8.3 L (8.4-10.2) mg/dL Assessment and Plan Assessment: Abdominal pain, nausea and vomiting likely secondary to Crohn's disease exacerbation. Acute COPD exacerbation History of atrial fibrillation currently on any anticoagulation with Xarelto History of CVA 2019 with residual minimal right-sided weakness and spasms. History of lung nodule on follow-up with Dr. Cortez as an outpatient. GERD Hypertension Hyperlipidemia Osteoarthritis Anxiety/depression bipolar disorder Currently everyday smoker History of alcohol abuse History of polysubstance abuse with cocaine and marijuana History of seizure disorder DVT prophylaxis with heparin subcu Plan: Patient will be continued on gentle IV hydration. Continue with pain management with morphine and was started on methylprednisolone 20 mg every 8 hourly. Patient was seen by gastroenterology and recommends to continue Solu-Medrol, dose increased to 40 mg every 8 hourly. Continue with PPI. Continue with symptomatic management. Continue the DuoNebs and oxygen supplementation. Follow-up closely. Prognosis is guarded at this time. Time with Patient: Greater than 30
--- NOTE | 2023-03-24 23:23 | P.PN ---
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 Vomitus is nonbilious. Denies any diarrhea. Patient states that her pain is mainly in the epigastric and also mid abdomen. Patient is also complaining of shortness of breath. No complaints of chest pain. No fever no chills. Patient is on home oxygen at 2 L via nasal cannula. Patient was admitted to the hospital multiple times with similar complaints. Denies any fever or chills. No cough or sputum chest x-ray showed no acute pulmonary process. EKG showed atrial flutter/tachycardia with rapid ventricular response. Heart rate 102. CT of the abdomen pelvis showed diffuse wall thickening involving the colon extending from the sigmoid colon through the ascending colon. There is a history of inflammatory bowel disease. Although infectious colitis is certainly not excluded. Laboratory pressure WBC 11.8 hemoglobin 11.3 and platelets 421 Sodium 135 potassium 4.3 chloride 95 bicarb is 33 BUN 18 creatinine 0.47 Urinalysis showed cloudy with 2+ ketones and RBCs 1 and WBC is 2. Plain GBA, B, RSV PCR and COVID-19 PCR not detected. 03/21/2023 Patient is currently lying in bed. Awake alert and oriented x3. Still co mplains of abdominal pain. Patient is still nauseated and states that she is not able to tolerate oral diet. No complaints of diarrhea. Breathing status is better. No complaint of chest pain. Patient has been afebrile. No headache or dizziness or lightheadedness. Patient was seen by gastroente rology and recommends to continue Solu-Medrol increase the dose 40 Q8 hourly. CRP level is 4.7. Other laboratory showed WBC 8.1 hemoglobin 11.2 and platelets 414 Sodium 131 potassium 4.5 chloride 97 bicarb is 5 BUN 5 and creatinine 0.5., Calcium 8.1 03/22/2023 Patient is currently lying in bed. Awake alert and oriented x3. Still complains of lower abdominal pain. No further episodes of diarrhea. Complains of nausea and vomiting. patient is a current iv solu-medrol. tolerating clear liquid diet. advance to low-fat diet as per gastroenterology recommendations. laboratory data showed wbc 14.4 hemoglobin 11.0 and platelets 423 sodium 133 potassium 4.1 chloride 99 bicarb is 29 bun 18 creatinine 0.43 and blood sugar 120. calcium 8.3. Current medications reviewed. Objective - Vital Signs Vital signs: Vital Signs Temp 98.5 F 03/22/23 19:18 Pulse 92 03/22/23 20:39 Resp 16 03/22/23 19:18 BP 116/72 03/22/23 19:18 Pulse Ox 94 L 03/22/23 19:18 FiO2 32 03/20/23 20:07 Intake & Output 03/22/23 03/22/23 03/23/23 06:59 18:59 06:59 Intake Total 590 360 Balance 590 360 Weight 49.442 kg Intake: Oral 590 360 Other: # Voids 3 2 # Bowel Movements 1 - Exam PHYSICAL EXAMINATION: Patient is lying in the bed comfortably, no acute distress, awake alert and oriented.. HEENT: Normocephalic. Neck is supple. Pupils reactive. Nostrils clear. Oral cavity is moist. Neck reveals no JVD, carotid bruits, or thyromegaly. CHEST EXAMINATION: Trachea is central. Symmetrical expansion. Bilateral expiratory wheezing. Nonlabored breathing.. CARDIAC: Normal S1, S2 with no gallops. No murmurs ABDOMEN: Soft. Bowel sounds present. no tenderness. No guarding or rigidity.. No organomegaly. No abdominal bruits. Extremities: reveal no edema. No clubbing or cyanosis Neurologically awake, alert, oriented x3 with well-coordinated movements. No focal deficits noted Skin: No rash or skin lesions. Psychiatric: Coperative. Nonsuicidal, anxious. Musculoskeletal: No joint swelling or deformity. Normal range of motion. - Labs CBC & Chem 7: 03/23/23 07:07 03/23/23 07:07 Labs: Abnormal Lab Results - Last 24 Hours (Table) 03/22/23 03/22/23 Range/Units 06:07 06:07 WBC 14.4 H (3.8-10.6) k/uL Hgb 11.0 L (11.4-16.0) gm/dL MCV 79.4 L (80.0-100.0) fL Neutrophils # 12.5 H (1.3-7.7) k/uL Sodium 133 L (137-145) mmol/L Glucose 123 H (74-99) mg/dL Calcium 8.3 L (8.4-10.2) mg/dL Assessment and Plan Assessment: Abdominal pain, nausea and vomiting likely secondary to Crohn's disease exacerbation. Acute COPD exacerbation History of atrial fibrillation currently on any anticoagulation with Xarelto History of CVA 2019 with residual minimal right-sided weakness and spasms. History of lung nodule on follow-up with Dr. Cortez as an outpatient. GERD Hypertension Hyperlipidemia Osteoarthritis Anxiety/depression bipolar disorder Currently everyday smoker History of alcohol abuse History of polysubstance abuse with cocaine and marijuana History of seizure disorder DVT prophylaxis with heparin subcu Plan: Patient will be continued on gentle IV hydration. Continue with pain management with morphine and c/w methylprednisolone 20 mg every 8 hourly. Patient was seen by gastroenterology and recommends to continue Solu-Medrol, PPI. Continue with symptomatic management. Continue the DuoNebs and oxygen supplementation. Started on clear liquid diet and advance to low-fat diet. Follow-up closely. Prognosis is guarded at this time. Time with Patient: Greater than 30
--- NOTE | 2023-03-24 23:25 | P.PN ---
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 Vomitus is nonbilious. Denies any diarrhea. Patient states that her pain is mainly in the epigastric and also mid abdomen. Patient is also complaining of shortness of breath. No complaints of chest pain. No fever no chills. Patient is on home oxygen at 2 L via nasal cannula. Patient was admitted to the hospital multiple times with similar complaints. Denies any fever or chills. No cough or sputum chest x-ray showed no acute pulmonary process. EKG showed atrial flutter/tachycardia with rapid ventricular response. Heart rate 102. CT of the abdomen pelvis showed diffuse wall thickening involving the colon extending from the sigmoid colon through the ascending colon. There is a history of inflammatory bowel disease. Although infectious colitis is certainly not excluded. Laboratory pressure WBC 11.8 hemoglobin 11.3 and platelets 421 Sodium 135 potassium 4.3 chloride 95 bicarb is 33 BUN 18 creatinine 0.47 Urinalysis showed cloudy with 2+ ketones and RBCs 1 and WBC is 2. Plain GBA, B, RSV PCR and COVID-19 PCR not detected. 03/21/2023 Patient is currently lying in bed. Awake alert and oriented x3. Still co mplains of abdominal pain. Patient is still nauseated and states that she is not able to tolerate oral diet. No complaints of diarrhea. Breathing status is better. No complaint of chest pain. Patient has been afebrile. No headache or dizziness or lightheadedness. Patient was seen by gastroente rology and recommends to continue Solu-Medrol increase the dose 40 Q8 hourly. CRP level is 4.7. Other laboratory showed WBC 8.1 hemoglobin 11.2 and platelets 414 Sodium 131 potassium 4.5 chloride 97 bicarb is 5 BUN 5 and creatinine 0.5., Calcium 8.1 03/22/2023 Patient is currently lying in bed. Awake alert and oriented x3. Still complains of lower abdominal pain. No further episodes of diarrhea. Complains of nausea and vomiting. patient is a current iv solu-medrol. tolerating clear liquid diet. advance to low-fat diet as per gastroenterology recommendations. laboratory data showed wbc 14.4 hemoglobin 11.0 and platelets 423 sodium 133 potassium 4.1 chloride 99 bicarb is 29 bun 18 creatinine 0.43 and blood sugar 120. calcium 8.3. 03/23/2023 Patient is currently resting in the bed. Awake alert and oriented x3. No complaints of chest pain. No worsening shortness of breath. Still complains of abdominal pain but improved. Patient states that she is still having nausea but no episodes of vomiting. Tolerating oral diet. No further episodes of diarrhea. Anticipate discharge in the next 24 hours with more clinical improvement. Laboratory data showed WBC 13.4 hemoglobin 11.3 and platelets 457 sodium 139 potassium 4.0 chloride 97 bicarb is 31 BUN 13 and creatinine 0.6 and blood sugar 104 and calcium 8.5. Current medications reviewed. Objective - Vital Signs Vital signs: Vital Signs Temp 98.9 F 03/23/23 19:12 Pulse 84 03/23/23 21:09 Resp 16 03/23/23 19:12 BP 126/76 03/23/23 19:12 Pulse Ox 96 03/23/23 19:12 FiO2 32 03/20/23 20:07 Intake & Output 03/23/23 03/23/23 03/24/23 06:59 18:59 06:59 Intake Total 480 Balance 480 Intake: Oral 480 Other: Voiding Method Toilet # Voids 1 4 - Exam PHYSICAL EXAMINATION: Patient is lying in the bed comfortably, no acute distress, awake alert and radha ented.. HEENT: Normocephalic. Neck is supple. Pupils reactive. Nostrils clear. Oral cavity is moist. Neck reveals no JVD, carotid bruits, or thyromegaly. CHEST EXAMINATION: Trachea is central. Symmetrical expansion. Bilateral expiratory wheezing. Nonlabored breathing.. CARDIAC: Normal S1, S2 with no gallops. No murmurs ABDOMEN: Soft. Bowel sounds present. no tenderness. No guarding or rigidity.. No organomegaly. No abdominal bruits. Extremities: reveal no edema. No clubbing or cyanosis Neurologically awake, alert, oriented x3 with well-coordinated movements. No focal deficits noted Skin: No rash or skin lesions. Psychiatric: Coperative. Nonsuicidal, anxious. Musculoskeletal: No joint swelling or deformity. Normal range of motion. - Labs CBC & Chem 7: 03/23/23 07:07 03/23/23 07:07 Labs: Abnormal Lab Results - Last 24 Hours (Table) 03/23/23 03/23/23 Range/Units 07:07 07:07 WBC 13.4 H (3.8-10.6) k/uL Hgb 11.3 L (11.4-16.0) gm/dL Plt Count 457 H (150-450) k/uL Neutrophils # 10.2 H (1.3-7.7) k/uL Sodium 135 L (137-145) mmol/L Chloride 97 L (98-107) mmol/L Carbon Dioxide 31 H (22-30) mmol/L Glucose 104 H (74-99) mg/dL Assessment and Plan Assessment: Abdominal pain, nausea and vomiting likely secondary to Crohn's disease exacerbation. Acute COPD exacerbation History of atrial fibrillation currently on any anticoagulation with Xarelto History of CVA 2020 with residual minimal right-sided weakness and spasms. History of lung nodule on follow-up with Dr. Cortez as an outpatient. GERD Hypertension Hyperlipidemia Osteoarthritis Anxiety/depression bipolar disorder Currently everyday smoker History of alcohol abuse History of polysubstance abuse with cocaine and marijuana History of seizure disorder DVT prophylaxis with heparin subcu Plan: Patient will be continued on gentle IV hydration. Continue with pain management with morphine and c/w methylprednisolone 20 mg every 8 hourly. Patient was seen by gastroenterology and recommends to continue Solu-Medrol, PPI. Continue with symptomatic management. IV Solu-Medrol will be changed to prednisone tapering course. Prescription was sent to pharmacy. Continue the DuoNebs and oxygen supplementation. dietadvance to low-fat diet. Follow-up closely. Prognosis is guarded at this time. Time with Patient: Greater than 30
--- NOTE | 2023-03-24 23:29 | P.DS ---
Providers Date of admission: 03/20/23 15:35 Expected date of discharge: 03/24/23 Attending physician: Cynthia Zavala Consults: 03/20/23 15:14 Consult Physician Routine Consulting Provider: Aby Younger Consult Reason/Comments: crohns flare Do you want consulting provider notified?: Yes Primary care physician: [facility] Course: Discharge diagnosis Abdominal pain, nausea and vomiting likely secondary to Crohn's disease exacerbation. 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 History of lung nodule on follow-up with Dr. Cortez as an outpatient. GERD Hypertension Hyperlipidemia Osteoarthritis Anxiety/depression bipolar disorder Currently everyday smoker History of alcohol abuse History of polysubstance abuse with cocaine and marijuana History of seizure disorder DVT prophylaxis with heparin subcu Hospital course Patient is a 62-year-old female with known history of COPD, Crohn's disease, coronary artery disease with no history of prior PCI, history of CVA/TIA, GERD, hypertension, hyperlipidemia, osteoarthritis, history of CVA in 2019 with residual mild right-sided weakness and spasms, anxiety/depression bipolar disorder and currently everyday smoker and history of marijuana and cocaine use presents to ER with complaints of nausea vomiting and poor oral intake and abdominal pain. Vomitus is nonbilious. Denies any diarrhea. Patient states that her pain is mainly in the epigastric and also mid abdomen. Patient is also complaining of shortness of breath. No complaints of chest pain. No fever no chills. Patient is on home oxygen at 2 L via nasal cannula. Patient was admitted to the hospital multiple times with similar complaints. Denies any fever or chills. No cough or sputum chest x-ray showed no acute pulmonary process. EKG showed atrial flutter/tachycardia with rapid ventricular response. Heart rate 102. CT of the abdomen pelvis showed diffuse wall thickening involving the colon extending from the sigmoid colon through the ascending colon. There is a history of inflammatory bowel disease. Although infectious colitis is certainly not excluded. Laboratory pressure WBC 11.8 hemoglobin 11.3 and platelets 421 Sodium 135 potassium 4.3 chloride 95 bicarb is 33 BUN 18 creatinine 0.47 Urinalysis showed cloudy with 2+ ketones and RBCs 1 and WBC is 2. Plain GBA, B, RSV PCR and COVID-19 PCR not detected. 03/21/2023 Patient is currently lying in bed. Awake alert and oriented x3. Still complains of abdominal pain. Patient is still nauseated and states that she is not able to tolerate oral diet. No complaints of diarrhea. Breathing status is better. No complaint of chest pain. Patient has been afebrile. No headache or dizziness or lightheadedness. Patient was seen by gastroenterology and recommends to continue Solu-Medrol increase the dose 40 Q8 hourly. CRP level is 4.7. Other laboratory showed WBC 8.1 hemoglobin 11.2 and platelets 414 Sodium 131 potassium 4.5 chloride 97 bicarb is 5 BUN 5 and creatinine 0.5., Calcium 8.1 03/22/2023 Patient is currently lying in bed. Awake alert and oriented x3. Still complains of lower abdominal pain. No further episodes of diarrhea. Complains of nausea and vomiting. patient is a current iv solu-medrol. tolerating clear liquid diet. advance to low-fat diet as per gastroenterology recommendations. laboratory data showed wbc 14.4 hemoglobin 11.0 and platelets 423 sodium 133 potassium 4.1 chloride 99 bicarb is 29 bun 18 creatinine 0.43 and blood sugar 120. calcium 8.3. 03/23/2023 Patient is currently resting in the bed. Awake alert and oriented x3. No complaints of chest pain. No worsening shortness of breath. Still complains of abdominal pain but improved. Patient states that she is still having nausea but no episodes of vomiting. Tolerating oral diet. No further episodes of diarrhea. Anticipate discharge in the next 24 hours with more clinical improvement. Laboratory data showed WBC 13.4 hemoglobin 11.3 and platelets 457 sodium 139 potassium 4.0 chloride 97 bicarb is 31 BUN 13 and creatinine 0.6 and blood sugar 104 and calcium 8.5. 03/24/2023 Patient is currently resting in bed. Awake alert and oriented x3. No complaints of chest pain or worsening shortness of breath. Still complains of nausea but abdominal pain is improved. No further episodes of diarrhea. Patient is tolerating low-fat diet without any episodes of vomiting as per nursing staff. No fever no chills. No cough or sputum production. IV Solu- Medrol will be changed to prednisone tapering course prescription was sent to pharmacy. Blood pressure is stable. There is a one-time reading with SBP 198 mm visit this morning. Patient is requesting IV morphine [id number]. Patient is upset that she is being discharged today. Patient was recommended to follow-up with GI as an outpatient and continue with prednisone tapering course. Patient was counseled extensively for smoking cessation and polysubstance abuse. Counseled regarding medication compliance and follow-up. Discharge vitals reviewed. Patient does not want to get examined. Vital Signs - 24 hr 03/24/23 03/24/23 03/24/23 02:51 07:33 08:45 Temperature 98.1 F 98.0 F Pulse Rate [ 96 90 90 Left] Respiratory 16 18 18 Rate Blood Pressure 96/59 198/98 [Right Arm] O2 Sat by Pulse 92 L 96 Oximetry Time taken greater than 35 minutes in patient care out of which more than 50% was spent counseling and coordination of care. Patient Condition at Discharge: Stable Plan - Discharge Summary New Discharge Prescriptions: New predniSONE 0 mg PO DIRECTED #74 tab Continue Metoprolol Succinate (ER) [Toprol XL] 25 mg PO DAILY Buprenorphine HCl/Naloxone HCl [Suboxone 8 mg-2 mg Sl Film] 1 film SL DAILY Glycopyrrolate/Formoterol Fum [Bevespi Aerosphere Inhaler] 2 puff INHALATION RT-BID Fluticasone Nasal [place] [Flonase Nasal [place]] 1 spr EA NOSTRIL DAILY QUEtiapine [SEROquel] 400 mg PO HS 30 Days #30 tab Ferrous Sulfate [Iron (65 MG Elemental)] 325 mg PO BID levETIRAcetam [Keppra] 1,000 mg PO BID Rivaroxaban [Xarelto] 20 mg PO W/SUPPER #30 tab Gabapentin [Neurontin] 300 mg PO TID Pantoprazole Sodium [Protonix] 40 mg PO DAILY Albuterol Sulfate [Albuterol Sulfate Hfa] 2 puff INHALATION RT-Q6H PRN #1 each PRN Reason: Shortness Of Breath Tiotropium 2.5 Mcg/Puff [Spiriva Respimat 2.5 Mcg] 2 puff INHALATION RT-DAILY 30 Days #1 each Ipratropium-Albuterol Nebulize [Duoneb 0.5 mg-3 mg/3 ml Soln] 3 ml INHALATION RT-QID #100 each Discharge Medication List Metoprolol Succinate (ER) [Toprol XL] 25 mg PO DAILY 02/21/18 [History] Buprenorphine HCl/Naloxone HCl [Suboxone 8 mg-2 mg Sl Film] 1 film SL DAILY 04/15/18 [History] Glycopyrrolate/Formoterol Fum [Bevespi Aerosphere Inhaler] 2 puff INHALATION RT- BID 11/24/19 [History] Fluticasone Nasal [place] [Flonase Nasal [place]] 1 spr EA NOSTRIL DAILY 03/27/20 [History] Rivaroxaban [Xarelto] 20 mg PO W/SUPPER #30 tab 08/08/22 [Rx] Albuterol Sulfate [Albuterol Sulfate Hfa] 2 puff INHALATION RT-Q6H PRN #1 each 10/04/22 [Rx] Gabapentin [Neurontin] 300 mg PO TID 10/04/22 [History] Pantoprazole Sodium [Protonix] 40 mg PO DAILY 10/04/22 [History] QUEtiapine [SEROquel] 400 mg PO HS 30 Days #30 tab 10/04/22 [Rx] Tiotropium 2.5 Mcg/Puff [Spiriva Respimat 2.5 Mcg] 2 puff INHALATION RT-DAILY 30 Days #1 each 12/05/22 [Rx] Ferrous Sulfate [Iron (65 MG Elemental)] 325 mg PO BID 01/19/23 [History] Ipratropium-Albuterol Nebulize [Duoneb 0.5 mg-3 mg/3 ml Soln] 3 ml INHALATION RT-QID #100 each 02/01/23 [Rx] levETIRAcetam [Keppra] 1,000 mg PO BID 03/20/23 [History] predniSONE 0 mg PO DIRECTED #74 tab 03/22/23 [Rx] Follow up Appointment(s)/Referral(s): [facility], [NON-STAFF] - 1 Week Daksha Steiner MD [Primary Care Provider] - 1-2 days Patient Instructions/Handouts: Crohn Disease (DC) Activity/Diet/Wound Care/Special Instructions: diet as tolerated Activity limited until seen by DR. House Disposition: HOME WITH HOME HEALTH SERVICES
== END 2023-03-24 14:36 | disposition home health service (06) | DRG 245 ==
LOC: EC 11:43 → 5NMEDONC 15:35
PROVIDERS: ADMIT Internal Medicine; ATTEND Internal Medicine
DX: K50.10 Crohn's disease of large intestine without complications (principal); E86.0 Dehydration; K57.30 Diverticulosis of large intestine without perforation or abscess without bleeding; J96.11 Chronic respiratory failure with hypoxia; J44.1 Chronic obstructive pulmonary disease with (acute) exacerbation; I48.92 Unspecified atrial flutter; D64.9 Anemia, unspecified; F41.9 Anxiety disorder, unspecified; F31.9 Bipolar disorder, unspecified; I48.91 Unspecified atrial fibrillation; I25.10 Atherosclerotic heart disease of native coronary artery without angina pectoris; K21.9 Gastro-esophageal reflux disease without esophagitis; E78.5 Hyperlipidemia, unspecified; I10 Essential (primary) hypertension; M19.90 Unspecified osteoarthritis, unspecified site; G40.909 Epilepsy, unspecified, not intractable, without status epilepticus; R91.1 Solitary pulmonary nodule; Z20.822 Contact with and (suspected) exposure to COVID-19; F17.200 Nicotine dependence, unspecified, uncomplicated; F10.10 Alcohol abuse, uncomplicated; F14.10 Cocaine abuse, uncomplicated; I69.351 Hemiplegia and hemiparesis following cerebral infarction affecting right dominant side; Z71.51 Drug abuse counseling and surveillance of drug abuser; Z71.41 Alcohol abuse counseling and surveillance of alcoholic; Z87.01 Personal history of pneumonia (recurrent); Z71.3 Dietary counseling and surveillance; Z88.1 Allergy status to other antibiotic agents; Z88.8 Allergy status to other drugs, medicaments and biological substances; Z79.01 Long term (current) use of anticoagulants; Z91.199 Patient's noncompliance with other medical treatment and regimen due to unspecified reason; Z79.899 Other long term (current) drug therapy
CPT/HCPCS: 36415; 71046; 74177; 80048; 80053; 81001; 82150; 83605; 83690; 85025; 85610; 85652; 85730; 86140; 87636; 93005; 94640; 94760; 96361; 96374; 96375; 96376; 99285

== ENCOUNTER 2023-05-11 10:19 | Inpatient (IN) | payer MEDICARE, OTHER ==
[2023-05-11] MEDS ORDERED: SODIUM CHLORIDE 0.9% 500 ML 500 ML IV ONE (11:35)
[2023-05-11] MEDS ORDERED: ONDANSETRON 4 MG/2 ML VIAL IVP STA (11:39)
[2023-05-11 11:47] LABS: Anisocytosis Slight; Basophils % (A) 0 %; Eosinophils # (A) 0.1 k/uL (0-0.7); Eosinophils % (A) 1 %; HCT 30.7 % (34.0-46.0); HGB 10.4 gm/dL (11.4-16.0); Lymphocytes # (A) 1.5 k/uL (1.0-4.8); Lymphocytes % (A) 16 %; MCH 26.8 pg (25.0-35.0); MCHC 33.9 g/dL (31.0-37.0); Mean Platelet Volume 7.8; Microcytosis Slight; Monocytes # (A) 0.4 k/uL (0-1.0); Monocytes % (A) 4 %; Neutrophils # (A) 7.6 k/uL (1.3-7.7); Neutrophils % (A) 79 %; Platelet Count 270 k/uL (150-450); RBC 3.88 m/uL (3.80-5.40); RDW 16.2 % (11.5-15.5); WBC 9.7 k/uL (3.8-10.6)
[2023-05-11 11:51] LABS: Appearance,Urine Turbid (Clear); Bacteria,Urine Moderate /hpf; Bilirubin,Urine Negative (Negative); Blood,Urine Large (Negative); Color,Urine Light Red; Glucose,Urine (UA) Negative (Negative); Ketones,Urine Negative (Negative); Leukocyte Esterase,Urine Large (Negative); Mucus,Urine Rare /hpf; Nitrite,Urine Negative (Negative); PH, Urine 8.5 (5.0-8.0); Protein,Urine Trace (Negative); RBC,Urine 56 /hpf (0-5); Specific Gravity,Urine 1.014 (1.001-1.035); Squamous Epithelial Cell,Urine 2 /hpf (0-4); Urobilinogen,Urine <2.0 mg/dL (<2.0); WBC,Urine 66 /hpf (0-5)
[2023-05-11 12:09] LABS: ALT 13 U/L (4-34); AST 23 U/L (14-36); African American GFR (CKD) >90 (>60 ml/min/1.73 sqM); Albumin 2.9 g/dL (3.5-5.0); Alkaline Phosphatase 82 U/L (38-126); Amylase 57 U/L (30-110); Anion Gap 2 mmol/L; Blood Urea Nitrogen 7 mg/dL (7-17); Calcium 8.2 mg/dL (8.4-10.2); Carbon Dioxide 33 mmol/L (22-30); Chloride 96 mmol/L (98-107); Glucose 121 mg/dL (74-99); Lipase 56 U/L (23-300); Non-African American GFR(CKD) >90 (>60 ml/min/1.73 sqM); Sodium 131 mmol/L (137-145); Total Bilirubin 0.4 mg/dL (0.2-1.3)
[2023-05-11] MEDS ORDERED: KETOROLAC 15 MG/ML 1 ML VIAL IVP STA (12:49)
[2023-05-11] MEDS ORDERED: METOCLOPRAMIDE 5 MG/ML 2 ML VIAL IVP STA (13:21)
[2023-05-11] MEDS ORDERED: MORPHINE SULFATE 4 MG/ML SYRINGE IVP STA (13:29)
[2023-05-11] MEDS ORDERED: NALOXONE 0.4 MG/ML 1 ML VIAL IV PRN (14:33)
[2023-05-11] MEDS ORDERED: ACETAMINOPHEN TAB 325 MG TAB PO PRN (14:33)
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
[2023-05-11] MEDS: IPRATROPIUM-ALBUTEROL 3 ML NEB INHALATION SCH ×2 (16:29→20:42)
[2023-05-11] MEDS: traMADol 50 MG TAB PO PRN (16:31)
[2023-05-11] MEDS: GABAPENTIN 300 MG CAP PO SCH ×2 (16:31→20:07)
[2023-05-11] MEDS: RIVAROXABAN 20 MG TAB PO SCH (18:04)
[2023-05-11] MEDS: MORPHINE SULFATE 4 MG/ML SYRINGE IV PRN (20:04)
[2023-05-11] MEDS: PANTOPRAZOLE 40 MG/10 ML VIAL IVP SCH (20:06)
[2023-05-11] MEDS: levETIRAcetam 500 MG TAB PO SCH (20:07)
[2023-05-11] MEDS: QUEtiapine 400 MG TAB PO SCH (20:07)
[2023-05-11] MEDS: FORMOTEROL FUMARATE 20 MCG/2 ML NEBU INHALATION SCH (20:42)
[2023-05-12] MEDS: MORPHINE SULFATE 4 MG/ML SYRINGE IV PRN ×3 (02:42→12:29)
[2023-05-12] MEDS: PATIENT'S OWN (Buprenorphine Hcl/Naloxone Hcl [Suboxone 8 Mg-2 Mg Sl Film] 1 EACH Fil SUBLINGUAL SCH (07:53)
[2023-05-12] MEDS ORDERED: NON FORMULARY DRUG (Tiotropium 2.5 Mcg/Puff 10 PUFF Each) INHALATION SCH (08:00)
[2023-05-12] MEDS: FORMOTEROL FUMARATE 20 MCG/2 ML NEBU INHALATION SCH ×2 (08:04→20:03)
[2023-05-12] MEDS: IPRATROPIUM-ALBUTEROL 3 ML NEB INHALATION SCH ×4 (08:04→20:03)
[2023-05-12] MEDS: levETIRAcetam 500 MG TAB PO SCH ×2 (08:15→20:55)
[2023-05-12] MEDS: FLUTICASONE 50MCG/SPRAY NASAL 16GM EA NOSTRIL SCH (08:15)
[2023-05-12] MEDS: PANTOPRAZOLE 40 MG/10 ML VIAL IVP SCH ×2 (08:15→20:55)
[2023-05-12] MEDS: GABAPENTIN 300 MG CAP PO SCH ×3 (08:18→20:55)
[2023-05-12] MEDS ORDERED: METOPROLOL SUCCINATE (ER) 25 MG TAB.ER.24H PO SCH (09:00)
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
[2023-05-12 11:25] LABS: Anisocytosis Slight; Basophils % (A) 0 %; Eosinophils # (A) 0.1 k/uL (0-0.7); Eosinophils % (A) 1 %; HCT 28.9 % (34.0-46.0); HGB 9.2 gm/dL (11.4-16.0); Hypochromasia Slight; Lymphocytes # (A) 1.4 k/uL (1.0-4.8); Lymphocytes % (A) 15 %; MCH 26.4 pg (25.0-35.0); MCV 82.5 fL (80.0-100.0); Mean Platelet Volume 7.9; Monocytes # (A) 0.6 k/uL (0-1.0); Monocytes % (A) 6 %; Neutrophils # (A) 7.3 k/uL (1.3-7.7); Neutrophils % (A) 76 %; Platelet Count 275 k/uL (150-450); RDW 16.1 % (11.5-15.5); WBC 9.5 k/uL (3.8-10.6)
[2023-05-12 11:33] LABS: African American GFR (CKD) >90 (>60 ml/min/1.73 sqM); Anion Gap 5 mmol/L; Blood Urea Nitrogen 8 mg/dL (7-17); Calcium 7.4 mg/dL (8.4-10.2); Carbon Dioxide 28 mmol/L (22-30); Chloride 97 mmol/L (98-107); Glucose 142 mg/dL (74-99); Non-African American GFR(CKD) >90 (>60 ml/min/1.73 sqM); Potassium 3.7 mmol/L (3.5-5.1); Sodium 130 mmol/L (137-145)
[2023-05-12] MEDS: RIVAROXABAN 20 MG TAB PO SCH (17:39)
[2023-05-12] MEDS: traMADol 50 MG TAB PO PRN (20:55)
[2023-05-12] MEDS: QUEtiapine 400 MG TAB PO SCH (20:55)
--- NOTE | 2023-05-12 20:59 | P.PN ---
Subjective Progress Note Date: 05/12/23 63-year-old female, history of CAD, atrial fibrillation, COPD, hypertension, hyperlipidemia, seizure disorder, osteoarthritis, Crohn's disease, presents to the emergency department chief complaint of diffuse abdominal pain and nausea that started this morning. She reports a history of crohn's disease. She does not take maintenance medications for her Crohn's. Denies vomiting, diarrhea or rectal bleed. -- Patient reports pain is more towards lower abdomen and flank area; denies any fever or chills Workup completed in ED reveals a to be significant 0.7, hemoglobin of 10.4. Platelet Count of 270, sodium 139, potassium 4.2, BUN/creatinine of 7/0.41 and blood glucose of 121; lactic acid is normal at 1.0 and CRP is elevated at 2.9 UA is positive for large amount of blood, large leukocyte esterase and WBCs with moderate bacteria; COVID 19 PCR is negative -- Patient reports no episode of diarrhea or rectal bleed; continues to ask for morphine every 4 hours; reports no improvement in the abdominal pain with once the diet to be advanced to regular -- We will discontinue IV morphine; advance to regular diet and plan for possible discharge in next 24 hours if patient is able to tolerate regular diet -- Patient remains on IV antibiotics for UTI Objective - Vital Signs Vital signs: Vital Signs Temp 98.7 F 05/12/23 07:00 Pulse 104 H 05/12/23 08:21 Resp 16 05/12/23 07:00 BP 100/55 05/12/23 07:00 Pulse Ox 98 05/12/23 07:00 FiO2 Intake & Output 05/11/23 05/12/23 05/12/23 18:59 06:59 18:59 Weight 54.431 kg Other: Voiding Method Toilet Toilet # Voids 2 - Exam General appearance: alert, in no apparent distress Head exam: Present: atraumatic, normocephalic, normal inspection Eye exam: Present: normal appearance, PERRL, EOMI. Absent: scleral icterus, conjunctival injection, periorbital swelling ENT exam: Present: normal exam, mucous membranes moist Neck exam: Present: normal inspection. Absent: tenderness, meningismus, lymphadenopathy Respiratory exam: Present: normal lung sounds bilaterally. Absent: respiratory distress, wheezes, rales, rhonchi, stridor Cardiovascular Exam: Present: regular rate, normal rhythm, normal heart sounds. Absent: systolic murmur, diastolic murmur, rubs, gallop, clicks GI/Abdominal exam: Present: soft, tenderness (diffuse), normal bowel sounds. Absent: distended, guarding, rebound, rigid Extremities exam: Present: normal inspection, full ROM, normal capillary refill. Absent: tenderness, pedal edema, joint swelling, calf tenderness Neurological exam: Present: alert, oriented X3 Skin exam: Present: warm, dry, intact, normal color. Absent: rash - Labs CBC & Chem 7: 05/12/23 10:26 05/12/23 10:26 Labs: Abnormal Lab Results - Last 24 Hours (Table) 05/11/23 05/11/23 05/11/23 Range/Units 11:30 11:30 11:30 Hgb 10.4 L (11.4-16.0) gm/dL Hct 30.7 L (34.0-46.0) % MCV 79.0 L (80.0-100.0) fL RDW 16.2 H (11.5-15.5) % Sodium 131 L (137-145) mmol/L Chloride 96 L (98-107) mmol/L Carbon Dioxide 33 H (22-30) mmol/L Creatinine 0.41 L (0.52-1.04) mg/dL Glucose 121 H (74-99) mg/dL Calcium 8.2 L (8.4-10.2) mg/dL C-Reactive Protein (<1.0) mg/dL Total Protein 6.0 L (6.3-8.2) g/dL Albumin 2.9 L (3.5-5.0) g/dL Urine Appearance Turbid H (Clear) Urine pH 8.5 H (5.0-8.0) Urine Protein Trace H (Negative) Urine Blood Large H (Negative) Ur Leukocyte Esterase Large H (Negative) Urine RBC 56 H (0-5) /hpf Urine WBC 66 H (0-5) /hpf Urine Bacteria Moderate H (None) /hpf Urine Mucus Rare H (None) /hpf 05/11/23 Range/Units 11:30 Hgb (11.4-16.0) gm/dL Hct (34.0-46.0) % MCV (80.0-100.0) fL RDW (11.5-15.5) % Sodium (137-145) mmol/L Chloride (98-107) mmol/L Carbon Dioxide (22-30) mmol/L Creatinine (0.52-1.04) mg/dL Glucose (74-99) mg/dL Calcium (8.4-10.2) mg/dL C-Reactive Protein 2.9 H (<1.0) mg/dL Total Protein (6.3-8.2) g/dL Albumin (3.5-5.0) g/dL Urine Appearance (Clear) Urine pH (5.0-8.0) Urine Protein (Negative) Urine Blood (Negative) Ur Leukocyte Esterase (Negative) Urine RBC (0-5) /hpf Urine WBC (0-5) /hpf Urine Bacteria (None) /hpf Urine Mucus (None) /hpf Assessment and Plan Assessment: 1. Intractable abdominal pain; questionable Crohn's disease exacerbation - Patient denies any episodes of vomiting or diarrhea or bloody bowel movements; patient isn't placed on Protonix 40 mg IV every 12 hours - White blood count is within normal limits; lactic acid is normal with slight elevation of CRP - We will hold off on systemic steroids and monitor patient closely 2. UTI; UA is positive for bacteria, WBCs, RBCs and leukocyte esterase; start patient on Rocephin 1 g IV daily; blood cultures and urine culture is completed; further recommendations after culture results are available 3. Mild hyponatremia; IV fluid hydration with normal saline at rate 75 mL an hour; we will monitor electrolytes closely and make further recommendations accordingly 4. Hypertension; metoprolol 25 mg daily 5. Hyperlipidemia; currently not on any statin therapy 6. Seizure disorder; Keppra 1000 mg twice a day 7. COPD; not in exacerbation; Perforomist nebulization twice a day along with DuoNeb nebulizer treatments 4 times a day and when necessary; Spiriva 2 puffs daily; Bevespi 2 puffs twice a day 8. Atrial fibrillation; rate controlled on metoprolol 25 mg daily and anticoagulated on Xarelto 20 mg daily with supper 9. Chronic back pain; we will continue with home dose of Suboxone DVT prophylaxis; SCDs/systemic anticoagulation CODE STATUS; full code
[2023-05-13 03:27] VITALS: RESP 15
[2023-05-13] MEDS: traMADol 50 MG TAB PO PRN (05:01)
[2023-05-13] MEDS: PATIENT'S OWN (Buprenorphine Hcl/Naloxone Hcl [Suboxone 8 Mg-2 Mg Sl Film] 1 EACH Fil SUBLINGUAL SCH (08:23)
[2023-05-13] MEDS: FLUTICASONE 50MCG/SPRAY NASAL 16GM EA NOSTRIL SCH (08:31)
[2023-05-13] MEDS: levETIRAcetam 500 MG TAB PO SCH (08:32)
[2023-05-13] MEDS: GABAPENTIN 300 MG CAP PO SCH (08:32)
[2023-05-13] MEDS: FORMOTEROL FUMARATE 20 MCG/2 ML NEBU INHALATION SCH (09:07)
[2023-05-13] MEDS: IPRATROPIUM-ALBUTEROL 3 ML NEB INHALATION SCH ×2 (09:07→12:18)
[2023-05-13 10:04] VITALS: BP 81/43; TEMP 98.1
[2023-05-13 11:05] LABS: Basophils # (A) 0.05 X 10*3/uL (0.00-0.10); Basophils % (A) 0.6 %; Eosinophils # (A) 0.11 X 10*3/uL (0.04-0.35); Eosinophils % (A) 1.4 %; HCT 28.9 % (37.2-46.3); Lymphocytes # (A) 1.89 X 10*3/uL (0.90-5.00); Lymphocytes % (A) 23.8 %; MCH 25.3 pg (27.0-32.0); MCHC 31.1 d/dL (32.0-37.0); MCV 81.2 FL (80.0-97.0); Mean Platelet Volume 10.1 FL (9.5-12.2); Monocytes # (A) 0.87 X 10*3/uL (0.20-1.00); NRBC Per 100 WBC 0 X 10*3/uL (0.00-0.01); Neutrophils # (A) 4.98 X 10*3/uL (1.80-7.70); Neutrophils % (A) 62.8 %; Platelet Count 295 X 10*3/uL (140-440); RBC 3.56 X 10*6/uL (4.10-5.20); RDW 16.5 % (11.5-14.5); WBC 7.93 X 10*3/uL (4.50-10.00)
[2023-05-13 11:18] LABS: Blood Urea Nitrogen 8.8 mg/dL (9.0-27.0); Calcium 8.1 mg/dL (8.7-10.3); Carbon Dioxide 28.1 mmol/L (21.6-31.8); Chloride 101 mmol/L (96-109); Glucose 91 mg/dL (70-110); Potassium 3.6 mmol/L (3.5-5.5); Sodium 136 mmol/L (135-145)
[2023-05-13 12:21] VITALS: PULSE 100
--- NOTE | 2023-05-14 06:49 | P.DS ---
Providers Date of admission: 05/13/23 09:29 Expected date of discharge: 05/13/23 Attending physician: Hoang Hall MD Primary care physician: Daksha Steiner Hospital Course: Final diagnosis -Intractable abdominal pain; possible Crohn's disease exacerbation although suspicion is low -UTI, present on admission -Mild hyponatremia -Hypertension -Hyperlipidemia -History of Seizure disorder -History of COPD; not in exacerbation -Atrial fibrillation history; currently rate controlled -Chronic back pain; continue with home dose of Suboxone -GI prophylaxis -DVT prophylaxis -full code Discharge disposition Patient is being discharged in a stable condition with guarded prognosis to home. Patient will follow-up with Dr. Obi Walker in the outpatient setting upon discharge. Patient is to follow-up with GI outpatient as scheduled. Total time taken is greater than 35 minutes. Hospital course This is a 63-year-old female who was recently admitted with increased abdominal pain associated with nausea and vomiting being closely monitored. Patient with Crohn's and does not take any scheduled medications for this. Patient with frequent hospitalizations regarding this and noncompliance to follow-up. Patient with poor oral intake although requesting increase in diet and per nursing staff did tolerate advanced diet. IV pain medications were discontinued and patient was continued on oral medications. Patient does take Suboxone and instructed to follow-up with primary care provider. Patient should also follow- up with GI in the outpatient setting on discharge. Recommend soft bland diet until follow-up with GI. Currently no reports of chest pain, shortness of breath, or palpitations. Patient is afebrile. No reports of nausea or vomiting and patient is tolerating diet. Patient will be discharged home today. Guarded prognosis and high risk for readmission given patient's significant comorbidities and noncompliance to medications and follow-up. Physical exam: Gen: This is a 63-year-old female who is awake, alert and oriented 3, ill- appearing, thin built HEENT: Head is atraumatic, normocephalic. Pupils equal, round. Sclerae is anicteric. NECK: Supple. No JVD. No lymphadenopathy. No thyromegaly. LUNGS: Diminished breath sounds bilaterally with no wheezes or rhonchi. No intercostal retractions. HEART: Regular rate and rhythm. No murmur. ABDOMEN: Soft. Some tenderness noted about quadrants. Bowel sounds are present. No masses. EXTREMITIES: No pedal edema. No calf tenderness. NEUROLOGICAL: Patient is awake, alert and oriented x3. Cranial nerves 2 through 12 are grossly intact. Please refer to medication reconciliation sheet for a list of medications. The impression and plan of care has been dictated by Angelita Diaz, Nurse Practitioner as directed. Dr. Aaron MD I have performed a history and examination and MDM of this patient, discussed the same with the dictator, and agree with the dictator's assessment and plan as written ,documented as a scribe. Based on total visit time, I have performed more than 50% of the visit. Patient Condition at Discharge: Stable Plan - Discharge Summary Discharge Rx Participant: No New Discharge Prescriptions: Continue Metoprolol Succinate (ER) [Toprol XL] 25 mg PO DAILY Buprenorphine HCl/Naloxone HCl [Suboxone 8 mg-2 mg Sl Film] 1 film SL DAILY Glycopyrrolate/Formoterol Fum [Bevespi Aerosphere Inhaler] 2 puff INHALATION RT-BID Fluticasone Nasal [place] [Flonase Nasal [place]] 1 spr EA NOSTRIL DAILY QUEtiapine [SEROquel] 400 mg PO HS 30 Days #30 tab Ferrous Sulfate [Iron (65 MG Elemental)] 325 mg PO BID levETIRAcetam [Keppra] 1,000 mg PO BID Rivaroxaban [Xarelto] 20 mg PO W/SUPPER #30 tab Gabapentin [Neurontin] 300 mg PO TID Pantoprazole Sodium [Protonix] 40 mg PO DAILY Albuterol Sulfate [Albuterol Sulfate Hfa] 2 puff INHALATION RT-Q6H PRN #1 each PRN Reason: Shortness Of Breath Tiotropium 2.5 Mcg/Puff [Spiriva Respimat 2.5 Mcg] 2 puff INHALATION RT-DAILY 30 Days #1 each Ipratropium-Albuterol Nebulize [Duoneb 0.5 mg-3 mg/3 ml Soln] 3 ml INHALATION RT-QID #100 each Discharge Medication List Metoprolol Succinate (ER) [Toprol XL] 25 mg PO DAILY 02/21/18 [History] Buprenorphine HCl/Naloxone HCl [Suboxone 8 mg-2 mg Sl Film] 1 film SL DAILY 04/15/18 [History] Glycopyrrolate/Formoterol Fum [Bevespi Aerosphere Inhaler] 2 puff INHALATION RT- BID 11/24/19 [History] Fluticasone Nasal [place] [Flonase Nasal [place]] 1 spr EA NOSTRIL DAILY 03/27/20 [History] Rivaroxaban [Xarelto] 20 mg PO W/SUPPER #30 tab 08/08/22 [Rx] Albuterol Sulfate [Albuterol Sulfate Hfa] 2 puff INHALATION RT-Q6H PRN #1 each 10/04/22 [Rx] Gabapentin [Neurontin] 300 mg PO TID 10/04/22 [History] Pantoprazole Sodium [Protonix] 40 mg PO DAILY 10/04/22 [History] QUEtiapine [SEROquel] 400 mg PO HS 30 Days #30 tab 10/04/22 [Rx] Tiotropium 2.5 Mcg/Puff [Spiriva Respimat 2.5 Mcg] 2 puff INHALATION RT-DAILY 30 Days #1 each 12/05/22 [Rx] Ferrous Sulfate [Iron (65 MG Elemental)] 325 mg PO BID 01/19/23 [History] Ipratropium-Albuterol Nebulize [Duoneb 0.5 mg-3 mg/3 ml Soln] 3 ml INHALATION R T-QID #100 each 02/01/23 [Rx] levETIRAcetam [Keppra] 1,000 mg PO BID 03/20/23 [History] Follow up Appointment(s)/Referral(s): Daksha Steiner MD [Primary Care Provider] - 1-2 days Patient Instructions/Handouts: Acute Abdominal Pain (DC) Activity/Diet/Wound Care/Special Instructions: Activity Limited until follow-up Follow-up with primary care provider on discharge Continue soft bland diet for the next few days and slowly advance as tolerated Follow-up GI outpatient
== END 2023-05-13 14:38 | disposition home or self-care (01) | DRG 386 ==
LOC: EC 10:19 → 6NMEDSUR 15:55 → OBSVTOIN 05-13 09:29
PROVIDERS: ADMIT Internal Medicine; ATTEND Internal Medicine
DX: K50.90 Crohn's disease, unspecified, without complications (principal); E87.1 Hypo-osmolality and hyponatremia; N39.0 Urinary tract infection, site not specified; Z20.822 Contact with and (suspected) exposure to COVID-19; Z79.01 Long term (current) use of anticoagulants; Z79.899 Other long term (current) drug therapy; Z86.73 Personal history of transient ischemic attack (TIA), and cerebral infarction without residual deficits; Z91.148 Patient's other noncompliance with medication regimen for other reason; Z91.199 Patient's noncompliance with other medical treatment and regimen due to unspecified reason; F41.9 Anxiety disorder, unspecified; F31.9 Bipolar disorder, unspecified; I48.91 Unspecified atrial fibrillation; I25.10 Atherosclerotic heart disease of native coronary artery without angina pectoris; E78.5 Hyperlipidemia, unspecified; J44.9 Chronic obstructive pulmonary disease, unspecified; G40.909 Epilepsy, unspecified, not intractable, without status epilepticus; G89.29 Other chronic pain; M54.9 Dorsalgia, unspecified; I10 Essential (primary) hypertension; Z87.01 Personal history of pneumonia (recurrent); Z88.1 Allergy status to other antibiotic agents; Z88.8 Allergy status to other drugs, medicaments and biological substances
CPT/HCPCS: 36415; 80048; 80053; 81001; 82150; 83605; 83690; 84145; 85025; 86140; 87635; 94640; 96361; 96374; 96375; 99285

== ENCOUNTER 2023-05-30 11:53 | Observation (INO) | payer MEDICARE, OTHER ==
[2023-05-30] MEDS ORDERED: IPRATROPIUM-ALBUTEROL 3 ML NEB INHALATION STA (12:09)
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
[2023-05-30] MEDS ORDERED: LORazepam 2 MG/ML INJ IV STA (12:14)
[2023-05-30 12:22] LABS: Anisocytosis Slight; Basophils % (A) 0 %; Eosinophils # (A) 0.1 k/uL (0-0.7); Eosinophils % (A) 1 %; HCT 32.7 % (34.0-46.0); HGB 10.7 gm/dL (11.4-16.0); Hypochromasia Slight; Lymphocytes # (A) 1.6 k/uL (1.0-4.8); Lymphocytes % (A) 16 %; MCH 26.7 pg (25.0-35.0); MCHC 32.7 g/dL (31.0-37.0); MCV 81.5 fL (80.0-100.0); Mean Platelet Volume 7.3; Monocytes # (A) 0.5 k/uL (0-1.0); Monocytes % (A) 5 %; Neutrophils # (A) 7.7 k/uL (1.3-7.7); Neutrophils % (A) 77 %; Platelet Count 451 k/uL (150-450); RBC 4.01 m/uL (3.80-5.40); RDW 16.5 % (11.5-15.5)
[2023-05-30 12:33] LABS: INR 0.9 (<1.2); Partial Thromboplastin Time 27.1 sec (22.0-30.0); Prothrombin Time 10.1 sec (9.0-12.0)
[2023-05-30 12:41] LABS: ALT 15 U/L (4-34); AST 23 U/L (14-36); African American GFR (CKD) >90 (>60 ml/min/1.73 sqM); Albumin 2.7 g/dL (3.5-5.0); Alkaline Phosphatase 88 U/L (38-126); Anion Gap 3 mmol/L; Blood Urea Nitrogen 8 mg/dL (7-17); Calcium 8.1 mg/dL (8.4-10.2); Carbon Dioxide 35 mmol/L (22-30); Chloride 94 mmol/L (98-107); Glucose 187 mg/dL (74-99); Magnesium 1.5 mg/dL (1.6-2.3); Non-African American GFR(CKD) >90 (>60 ml/min/1.73 sqM); Potassium 3.6 mmol/L (3.5-5.1); Sodium 132 mmol/L (137-145); Total Bilirubin 0.3 mg/dL (0.2-1.3); Total Protein 6.2 g/dL (6.3-8.2)
--- NOTE | 2023-05-30 12:55 | XR ---
EXAMINATION TYPE: XR chest 2V DATE OF EXAM: 05/30/2023 COMPARISON: 03/20/2023 HISTORY: Shortness of breath TECHNIQUE: Frontal and lateral views of the chest are obtained. FINDINGS: Scattered senescent parenchymal changes noted. Hyperinflation compatible with COPD. No evidence for infiltrate. No evidence for atelectasis. Heart size is stable. Mediastinal structures are stable and grossly unremarkable. No evidence for hilar prominence. Degenerative changes dorsal spine. IMPRESSION: 1. No evidence for acute pulmonary disease.
[2023-05-30] MEDS ORDERED: MAGNESIUM SULFATE-D5W PMX 1 GM in DEXTROSE/WATER 1 100ML.BAG IVPB ONE (13:14)
[2023-05-30] MEDS ORDERED: cefTRIAXone IN SWFI 1,000 MG/10 ML SYRINGE IVP STA (13:15)
[2023-05-30] MEDS ORDERED: methylPREDNISolone SOD SUCCI 125 MG/2 ML VIAL IV STA (13:15)
--- NOTE | 2023-05-30 14:01 | CT ---
EXAMINATION TYPE: CT chest angio for PE CT DLP: 207.1 mGycm, Automated exposure control for dose reduction was used. DATE OF EXAM: 05/30/2023 1:53 PM COMPARISON: Chest radiograph from same day. CT chest 11/28/2022 CLINICAL INDICATION:Female, 63 years old with history of Elevated d-dimer, shortness of breath; Watkins dionisio d-dimer, SOB. I TECHNIQUE/CONTRAST: CTA scan of the thorax is performed with IV Contrast, patient injected with 100 mL of Isovue 370, pul monary embolism protocol. MIP images are created and reviewed. FINDINGS: Pulmonary Artery: There is no evidence for a filling defect within the pulmonary vasculature to sugge st acute pulmonary embolism. The pulmonary artery is of normal size. Lungs/Pleura: No evidence of focal consolidation, pleural effusion or pneumothorax. Moderate to sever e centrilobular emphysematous changes. Airway: Large airways are patent. Heart: Heart is within normal limits for size.. Vasculature: No evidence of aortic aneurysm. Mediastinum: No evidence of adenopathy. Musculoskeletal: No acute osseous abnormalities. Chronic anterior wedge compression deformity of the T8 vertebral body. There is approximately 50% height loss anteriorly without retropulsion. Soft Tissues: Unremarkable. Lower neck: No significant findings. Upper Abdomen: No significant findings. IMPRESSION: 1. No evidence of pulmonary embolism or acute thoracic process. 2. Moderate to severe COPD changes.
[2023-05-30] MEDS ORDERED: NALOXONE 0.4 MG/ML 1 ML VIAL IVP PRN (14:52)
[2023-05-30] MEDS: IPRATROPIUM-ALBUTEROL 3 ML NEB INHALATION SCH (15:47)
[2023-05-30] MEDS: methylPREDNISolone SOD SUCCI 125 MG/2 ML VIAL IV SCH ×2 (18:57→22:43)
[2023-05-30] MEDS ORDERED: RIVAROXABAN 20 MG TAB PO SCH (22:00)
[2023-05-30] MEDS ORDERED: IPRATROPIUM-ALBUTEROL 3 ML NEB INHALATION PRN (22:00)
[2023-05-30] MEDS ORDERED: QUEtiapine 400 MG TAB PO SCH (22:00)
[2023-05-30] MEDS: FERROUS SULFATE 325 MG TAB PO SCH (22:42)
[2023-05-30] MEDS: levETIRAcetam 500 MG TAB PO SCH (22:42)
[2023-05-30] MEDS: GABAPENTIN 300 MG CAP PO SCH (22:42)
[2023-05-30] MEDS: AMOXIC-POT CLAV 875-125MG 1 EACH TAB PO SCH (22:43)
[2023-05-31] MEDS: IPRATROPIUM-ALBUTEROL 3 ML NEB INHALATION SCH ×3 (00:38→15:23)
[2023-05-31] MEDS ORDERED: LORazepam 0.5 MG TAB PO STA (02:38)
[2023-05-31] MEDS ORDERED: methylPREDNISolone SOD SUCCI 125 MG/2 ML VIAL ONE (06:15)
[2023-05-31] MEDS ORDERED: BUDESONIDE 0.25 MG/2 ML NEBU INHALATION SCH (08:00)
[2023-05-31] MEDS: methylPREDNISolone SOD SUCCI 125 MG/2 ML VIAL IV SCH ×2 (08:39→12:52)
[2023-05-31] MEDS: GABAPENTIN 300 MG CAP PO SCH (08:54)
[2023-05-31] MEDS: levETIRAcetam 500 MG TAB PO SCH (08:54)
[2023-05-31] MEDS: FERROUS SULFATE 325 MG TAB PO SCH (08:54)
[2023-05-31] MEDS: AMOXIC-POT CLAV 875-125MG 1 EACH TAB PO SCH (08:54)
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
[2023-05-31 09:14] VITALS: BP 109/70; PULSE 89; RESP 16; TEMP 97.7
[2023-05-31 11:48] VITALS: BMI 16.7
[2023-05-31 12:17] LABS: Chloride 92 mmol/L (98-107)
[2023-05-31 12:18] LABS: African American GFR (CKD) >90 (>60 ml/min/1.73 sqM); Anion Gap 3 mmol/L; Blood Urea Nitrogen 10 mg/dL (7-17); Calcium 8.1 mg/dL (8.4-10.2); Carbon Dioxide 35 mmol/L (22-30); Glucose 220 mg/dL (74-99); Magnesium 1.7 mg/dL (1.6-2.3); Non-African American GFR(CKD) >90 (>60 ml/min/1.73 sqM); Potassium 4.2 mmol/L (3.5-5.1); Sodium 130 mmol/L (137-145)
--- NOTE | 2023-05-31 12:39 | CA ---
Transthoracic Echo Report Name: Fabiola Giraldo Age: 63 Gender: F : 1960 Exam Date: 05/31/2023 09:43 Exam Location: [facility] Ht (in): 68 Wt (lb): 110 Ordering Physician: Luc Guerra MD ([id number]) Attending/Referring Phys: [employer] Kamala Santamaria RDCS Procedure CPT: Indications: abnormal ekg Cardiac Hx: Technical Quality: Fair Contrast 1: Total Dose (mL): Contrast 2: Total Dose (mL): MEASUREMENTS (Male / Female) Normal Values 2D ECHO LV Diastolic Diameter PLAX 3.2 cm 4.2 - 5.9 / 3.9 - 5.3 cm LV Systolic Diameter PLAX 2.3 cm IVS Diastolic Thickness 1.2 cm 0.6 - 1.0 / 0.6 - 0.9 cm LVPW Diastolic Thickness 1.3 cm 0.6 - 1.0 / 0.6 - 0.9 cm LV Relative Wall Thickness 0.8 RV Internal Dim ED PLAX 2.9 cm M-MODE Aortic Root Diameter MM 2.4 cm LA Systolic Diameter MM 3.1 cm LA Ao Ratio MM 1.3 AV Cusp Separation MM 2.1 cm DOPPLER AV Peak Velocity 160.6 cm/s AV Peak Gradient 10.3 mmHg AV Mean Velocity 102.1 cm/s AV Mean Gradient 5.1 mmHg AV Velocity Time Integral 24.5 cm LVOT Peak Velocity 155.8 cm/s LVOT Peak Gradient 9.7 mmHg LVOT Velocity Time Integral 35.7 cm MV Area PHT 3.5 cm??? Mitral E Point Velocity 48.9 cm/s Mitral A Point Velocity 99.5 cm/s Mitral E to A Ratio 0.5 MV Deceleration Time 219.2 ms MV E' Velocity 5.6 cm/s Mitral E to MV E' Ratio 8.8 TR Peak Velocity 302.7 cm/s TR Peak Gradient 36.7 mmHg Right Ventricular Systolic Press 40.8 mmHg FINDINGS Left Ventricle Mildly increased left ventricular wall thickness. Left ventricular cavity size normal. Normal left ventricular systolic function with no obvious regional wall motion abnormalities. Left ventricular ejection fraction is estimated at 55-60 %. Right Ventricle Normal right ventricular size and function. Mild pulmonary hypertension. Right Atrium Normal right atrial size. Left Atrium Normal left atrial size. Mitral Valve Structurally normal mitral valve. Mild mitral annular calcification. Trace mitral regurgitation. Aortic Valve No aortic valve stenosis or regurgitation. Aortic valve sclerosis. Tricuspid Valve Structurally normal tricuspid valve. Pulmonic Valve Trace pulmonic regurgitation. Pericardium No pericardial effusion. Aorta Normal size aortic root and proximal ascending aorta. CONCLUSIONS JENELLE post pericardial stripe Previewed by: Dr. Luc Guerra MD (Electronically Signed) Final Date: 31 May 2023 12:37
[2023-05-31 13:23] LABS: T4, Free (Free Thyroxine) 1.29 ng/dL (0.78-2.19)
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
[2023-06-01] MEDS ORDERED: METOPROLOL SUCCINATE (ER) 50 MG TAB.ER.24H PO SCH (09:00)
--- NOTE | 2023-06-01 20:27 | P.DS ---
Providers Date of admission: 05/30/23 14:54 Expected date of discharge: 05/31/23 Attending physician: Buddy Walker Consults: 05/30/23 14:52 Consult Physician Routine Consulting Provider: [facility] Consult Reason/Comments: Abnormal EKG Do you want consulting provider notified?: Yes Primary care physician: Daksha Steiner Hospital Course: Final diagnosis Shortness of breath with chest pain, ACS ruled out, negative troponins 3 Abnormal EKG showing supraventricular premature complexes History of COPD, not in exacerbation Chronic hypoxic respiratory failure secondary to COPD Continued ongoing nicotine dependence History of atrial fibrillation, currently rate controlled Angina CVA/TIA history GERD Hyperlipidemia Hypertension Osteoarthritis Seizure disorder Crohn's disease History of anxiety/bipolar depression Past medical history of alcohol abuse as well as cocaine and marijuana GI prophylaxis DVT prophylaxis Full code Discharge disposition Patient is being discharged in a stable condition with guarded prognosis to home. Patient will follow-up with Dr. Obi Walker in the outpatient setting upon discharge. Patient is to continue with current medication adjustments per cardiology and outpatient follow-up as scheduled. Patient will continue prednisone taper on discharge. Total time taken is greater than 35 minutes. Hospital course This is a 63-year-old female who presented to the emergency department with reports of feeling short of breath and not feeling well. Patient follows with Dr. Obi Walker in the outpatient setting with a past medical history of atrial fibrillation, coronary artery disease, chest pain with angina, COPD, CVA/TIA, GERD, hyperlipidemia, hypertension, osteoarthritis, seizure disorder, Crohn's, anxiety/bipolar depression. Patient has a history of alcohol abuse and denies drinking currently in a past medical history of cocaine and marijuana use and is maintained on Suboxone and continues to smoke daily. Patient had abnormal EKG showing sinus tachycardia with frequent supraventricular premature complexes and cardiology was consulted and patient was placed under observation for chest pain and EKG changes. Troponins 3 were negative. Chest x-ray showed no evidence for acute pulmonary disease with COPD chronic, CTA of the chest was done showing no evidence of PE or acute thoracic process with moderate to severe COPD. patient has been cleared by cardiology for discharge with medication adjustments noted. Please refer to cardiology note for further HPI. Patient is high risk for readmission and has had multiple hospitalizations for noncompliance with medications, continued smoking, and significant comorbidities. PHYSICAL EXAMINATION: GENERAL: The patient is alert and oriented x4, thin built, elderly, cachectic, ill-appearing HEENT: Pupils are round and equally reacting to light. EOMI. no scleral icterus. No conjunctival pallor. Normocephalic, atraumatic. No pharyngeal erythema. No th yromegaly. CARDIOVASCULAR: S1 and S2 muffled PULMONARY: diminished breath sounds bilaterally with coarse scattered rhonchi noted. ABDOMEN: soft. Nontender on exam. Thin. Cachectic. non-distended, normoactive bowel sounds. No palpable organomegaly. MUSCULOSKELETAL: No joint swelling or deformity. EXTREMITIES: No cyanosis, clubbing, or pedal edema. Significant muscle wasting emaciated NEUROLOGICAL: Gross neurological examination did not reveal any focal deficits. SKIN: No rashes. Please refer to medication reconciliation sheet for a list of medications. The impression and plan of care has been dictated by Angelita Diaz, Nurse Practitioner as directed. Dr. Antonette MD I have performed a history and examination and MDM of this patient, discussed the same with the dictator, and agree with the dictator's assessment and plan as written ,documented as a scribe. Based on total visit time, I have performed more than 50% of the visit. Patient Condition at Discharge: Fair Plan - Discharge Summary New Discharge Prescriptions: New Amoxic-Pot Clav 875-125Mg [Augmentin 875-125] 1 each PO Q12HR 5 Days #10 tab predniSONE 10 mg PO DIRECTED #30 tab Metoprolol Succinate (ER) [Toprol XL] 50 mg PO DAILY #30 tab Continue Buprenorphine HCl/Naloxone HCl [Suboxone 8 mg-2 mg Sl Film] 1 film SL DAILY Glycopyrrolate/Formoterol Fum [Bevespi Aerosphere Inhaler] 2 puff INHALATION RT-BID Fluticasone Nasal [place] [Flonase Nasal [place]] 1 spr EA NOSTRIL DAILY QUEtiapine [SEROquel] 400 mg PO HS 30 Days #30 tab Ferrous Sulfate [Iron (65 MG Elemental)] 325 mg PO BID levETIRAcetam [Keppra] 1,000 mg PO BID Rivaroxaban [Xarelto] 20 mg PO W/SUPPER #30 tab Gabapentin [Neurontin] 300 mg PO TID Pantoprazole Sodium [Protonix] 40 mg PO DAILY Albuterol Sulfate [Albuterol Sulfate Hfa] 2 puff INHALATION RT-Q6H PRN #1 each PRN Reason: Shortness Of Breath Tiotropium 2.5 Mcg/Puff [Spiriva Respimat 2.5 Mcg] 2 puff INHALATION RT-DAILY 30 Days #1 each Ipratropium-Albuterol Nebulize [Duoneb 0.5 mg-3 mg/3 ml Soln] 3 ml INHALATION RT-QID #100 each Discontinued Metoprolol Succinate (ER) [Toprol XL] 25 mg PO DAILY Discharge Medication List Buprenorphine HCl/Naloxone HCl [Suboxone 8 mg-2 mg Sl Film] 1 film SL DAILY 04/15/18 [History] Glycopyrrolate/Formoterol Fum [Bevespi Aerosphere Inhaler] 2 puff INHALATION RT- BID 11/24/19 [History] Fluticasone Nasal [place] [Flonase Nasal [place]] 1 spr EA NOSTRIL DAILY 03/27/20 [History] Rivaroxaban [Xarelto] 20 mg PO W/SUPPER #30 tab 08/08/22 [Rx] Albuterol Sulfate [Albuterol Sulfate Hfa] 2 puff INHALATION RT-Q6H PRN #1 each 10/04/22 [Rx] Gabapentin [Neurontin] 300 mg PO TID 10/04/22 [History] Pantoprazole Sodium [Protonix] 40 mg PO DAILY 10/04/22 [History] QUEtiapine [SEROquel] 400 mg PO HS 30 Days #30 tab 10/04/22 [Rx] Tiotropium 2.5 Mcg/Puff [Spiriva Respimat 2.5 Mcg] 2 puff INHALATION RT-DAILY 30 Days #1 each 12/05/22 [Rx] Ferrous Sulfate [Iron (65 MG Elemental)] 325 mg PO BID 01/19/23 [History] Ipratropium-Albuterol Nebulize [Duoneb 0.5 mg-3 mg/3 ml Soln] 3 ml INHALATION RT-QID #100 each 02/01/23 [Rx] levETIRAcetam [Keppra] 1,000 mg PO BID 03/20/23 [History] Amoxic-Pot Clav 875-125Mg [Augmentin 875-125] 1 each PO Q12HR 5 Days #10 tab 05/31/23 [Rx] Metoprolol Succinate (ER) [Toprol XL] 50 mg PO DAILY #30 tab 05/31/23 [Rx] predniSONE 10 mg PO DIRECTED #30 tab 05/31/23 [Rx] Follow up Appointment(s)/Referral(s): Daksha Steiner MD [Primary Care Provider] - 1-2 days Patient Instructions/Handouts: COPD (Chronic Obstructive Pulmonary Disease) (DC) Activity/Diet/Wound Care/Special Instructions: Activity Limited until follow-up Take medications as they are prescribed to you Follow-up primary care provider on discharge Follow-up pulmonary outpatient Follow-up cardiology as needed outpatient avoid tobacco use and exposure Discharge Disposition: HOME SELF-CARE
== END 2023-05-31 16:23 | disposition home or self-care (01) ==
LOC: EC 11:53 → 6NMEDSUR 14:54
PROVIDERS: ADMIT Hospitalist; ATTEND Hospitalist
DX: R07.9 Chest pain, unspecified (principal); J44.1 Chronic obstructive pulmonary disease with (acute) exacerbation; J96.11 Chronic respiratory failure with hypoxia; I49.1 Atrial premature depolarization; I48.91 Unspecified atrial fibrillation; F17.210 Nicotine dependence, cigarettes, uncomplicated; K21.9 Gastro-esophageal reflux disease without esophagitis; E78.5 Hyperlipidemia, unspecified; I10 Essential (primary) hypertension; M19.90 Unspecified osteoarthritis, unspecified site; K50.90 Crohn's disease, unspecified, without complications; F31.9 Bipolar disorder, unspecified; F41.9 Anxiety disorder, unspecified; G40.909 Epilepsy, unspecified, not intractable, without status epilepticus; E87.1 Hypo-osmolality and hyponatremia; D64.9 Anemia, unspecified; I69.351 Hemiplegia and hemiparesis following cerebral infarction affecting right dominant side; I25.119 Atherosclerotic heart disease of native coronary artery with unspecified angina pectoris; Z79.899 Other long term (current) drug therapy; R94.31 Abnormal electrocardiogram [ECG] [EKG]; Z91.148 Patient's other noncompliance with medication regimen for other reason; R01.1 Cardiac murmur, unspecified; I42.9 Cardiomyopathy, unspecified; Z91.199 Patient's noncompliance with other medical treatment and regimen due to unspecified reason; Z90.721 Acquired absence of ovaries, unilateral; Z87.898 Personal history of other specified conditions; Z87.01 Personal history of pneumonia (recurrent); Z83.3 Family history of diabetes mellitus; Z82.49 Family history of ischemic heart disease and other diseases of the circulatory system; Z80.0 Family history of malignant neoplasm of digestive organs; Z81.8 Family history of other mental and behavioral disorders; Z83.49 Family history of other endocrine, nutritional and metabolic diseases; Z79.01 Long term (current) use of anticoagulants; Z88.1 Allergy status to other antibiotic agents; Z88.8 Allergy status to other drugs, medicaments and biological substances
CPT/HCPCS: 96376 ×3; 96365; 96375; 99285; 36415; 94640 ×3; 93005; 93306; 85379; 84439; 80053; 80048; 84443; 83605; 83735 ×2; 84484; 85025; 85610; 85730; 87040; 87636; 71046; 71275; G0378 ×2; J2060; J2930 ×2; J0696; J3475; Q9967

== ENCOUNTER 2023-06-05 12:06 | Inpatient (IN) | payer MEDICARE, OTHER ==
[2023-06-05] MEDS ORDERED: HYDROmorphone 0.5 MG/0.5 ML SYRINGE IVP STA (12:29)
[2023-06-05] MEDS ORDERED: SODIUM CHLORIDE 0.9% 1,000 ML IV STA (12:29)
[2023-06-05] MEDS: ONDANSETRON 4 MG/2 ML VIAL IVP STA ×2 (12:41)
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
[2023-06-05 12:59] LABS: Anisocytosis Slight; Basophils % (A) 0 %; Eosinophils # (A) 0.1 k/uL (0-0.7); Eosinophils % (A) 1 %; HCT 34.9 % (34.0-46.0); HGB 11.5 gm/dL (11.4-16.0); Lymphocytes # (A) 1.9 k/uL (1.0-4.8); Lymphocytes % (A) 15 %; MCH 25.9 pg (25.0-35.0); MCV 78.3 fL (80.0-100.0); Mean Platelet Volume 7.4; Microcytosis Slight; Monocytes # (A) 0.8 k/uL (0-1.0); Monocytes % (A) 7 %; Neutrophils # (A) 9.6 k/uL (1.3-7.7); Neutrophils % (A) 76 %; Platelet Count 442 k/uL (150-450); RBC 4.46 m/uL (3.80-5.40); RDW 16.9 % (11.5-15.5); WBC 12.6 k/uL (3.8-10.6)
[2023-06-05 13:11] LABS: ALT 16 U/L (4-34); AST 26 U/L (14-36); African American GFR (CKD) >90 (>60 ml/min/1.73 sqM); Albumin 3.1 g/dL (3.5-5.0); Alkaline Phosphatase 73 U/L (38-126); Anion Gap 9 mmol/L; Blood Urea Nitrogen 8 mg/dL (7-17); Carbon Dioxide 24 mmol/L (22-30); Chloride 91 mmol/L (98-107); Glucose 109 mg/dL (74-99); Lipase 366 U/L (23-300); Non-African American GFR(CKD) >90 (>60 ml/min/1.73 sqM); Potassium 3.2 mmol/L (3.5-5.1); Sodium 124 mmol/L (137-145); Total Bilirubin 0.5 mg/dL (0.2-1.3); Total Protein 6.4 g/dL (6.3-8.2)
[2023-06-05] MEDS ORDERED: POTASSIUM CHLORIDE ER 20 MEQ TAB.ER PO STA (13:32)
[2023-06-05] MEDS ORDERED: ACETAMINOPHEN TAB 325 MG TAB PO PRN ×2 (13:52→14:41)
[2023-06-05] MEDS ORDERED: NALOXONE 0.4 MG/ML 1 ML VIAL IV PRN (13:52)
[2023-06-05] MEDS: SODIUM CHLORIDE 0.9% 1,000 ML IV SCH (14:38)
[2023-06-05] MEDS ORDERED: CALCIUM CARBONATE 500 MG CHEWABLE PO PRN (14:41)
[2023-06-05] MEDS: HYDROmorphone 0.5 MG/0.5 ML SYRINGE IVP PRN ×3 (14:42→19:48)
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
[2023-06-05] MEDS ORDERED: SODIUM CHLORIDE 0.9% 1,000 ML IV SCH (14:45)
[2023-06-05] MEDS: PANTOPRAZOLE 40 MG/10 ML VIAL IVP SCH (15:11)
[2023-06-05 18:25] LABS: Appearance,Urine Clear (Clear); Bilirubin,Urine Negative (Negative); Blood,Urine Negative (Negative); Color,Urine Light Yellow; Glucose,Urine (UA) Negative (Negative); Ketones,Urine 1+ (Negative); Leukocyte Esterase,Urine Negative (Negative); Nitrite,Urine Negative (Negative); PH, Urine 6.5 (5.0-8.0); Protein,Urine Negative (Negative); Specific Gravity,Urine 1.011 (1.001-1.035); Urobilinogen,Urine <2.0 mg/dL (<2.0)
[2023-06-05] MEDS ORDERED: ALBUTEROL NEBULIZED 2.5 MG/3 ML INHALATION PRN (19:16)
[2023-06-05] MEDS: RIVAROXABAN 20 MG TAB PO SCH (19:47)
[2023-06-05] MEDS: QUEtiapine 400 MG TAB PO SCH (19:47)
[2023-06-05] MEDS: GABAPENTIN 300 MG CAP PO SCH (19:47)
[2023-06-05] MEDS: levETIRAcetam 500 MG TAB PO SCH (19:47)
[2023-06-05] MEDS: IPRATROPIUM-ALBUTEROL 3 ML NEB INHALATION SCH (21:22)
[2023-06-05] MEDS: FORMOTEROL FUMARATE 20 MCG/2 ML NEBU INHALATION SCH (21:22)
[2023-06-06] MEDS: HYDROmorphone 0.5 MG/0.5 ML SYRINGE IVP PRN ×5 (00:43→15:15)
[2023-06-06] MEDS: SODIUM CHLORIDE 0.9% 1,000 ML IV SCH ×2 (03:42→16:28)
[2023-06-06] MEDS: IPRATROPIUM-ALBUTEROL 3 ML NEB INHALATION SCH ×4 (08:00→19:51)
[2023-06-06] MEDS: FORMOTEROL FUMARATE 20 MCG/2 ML NEBU INHALATION SCH ×2 (08:00→19:51)
[2023-06-06] MEDS: METOPROLOL SUCCINATE (ER) 50 MG TAB.ER.24H PO SCH (08:03)
[2023-06-06] MEDS: PANTOPRAZOLE 40 MG/10 ML VIAL IVP SCH (08:03)
[2023-06-06] MEDS: levETIRAcetam 500 MG TAB PO SCH ×2 (08:04→20:50)
[2023-06-06] MEDS: GABAPENTIN 300 MG CAP PO SCH ×3 (08:04→20:50)
[2023-06-06] MEDS: FLUTICASONE 50MCG/SPRAY NASAL 16GM EA NOSTRIL SCH (08:04)
[2023-06-06 09:05] LABS: Basophils # (A) 0.03 X 10*3/uL (0.00-0.10); Basophils % (A) 0.3 %; Eosinophils # (A) 0.22 X 10*3/uL (0.04-0.35); Eosinophils % (A) 2.2 %; HCT 28.1 % (37.2-46.3); HGB 8.9 d/dL (12.0-15.0); Lymphocytes # (A) 1.97 X 10*3/uL (0.90-5.00); Lymphocytes % (A) 19.6 %; MCH 25.9 pg (27.0-32.0); MCHC 31.7 d/dL (32.0-37.0); MCV 81.9 FL (80.0-97.0); Mean Platelet Volume 9.9 FL (9.5-12.2); Monocytes # (A) 1.29 X 10*3/uL (0.20-1.00); Monocytes % (A) 12.8 %; NRBC Per 100 WBC 0 X 10*3/uL (0.00-0.01); Neutrophils # (A) 6.52 X 10*3/uL (1.80-7.70); Neutrophils % (A) 64.8 %; Platelet Count 349 X 10*3/uL (140-440); RBC 3.43 X 10*6/uL (4.10-5.20); RDW 17.3 % (11.5-14.5); WBC 10.06 X 10*3/uL (4.50-10.00)
[2023-06-06 09:34] LABS: Blood Urea Nitrogen 5.6 mg/dL (9.0-27.0); Calcium 7.7 mg/dL (8.7-10.3); Carbon Dioxide 25.1 mmol/L (21.6-31.8); Chloride 103 mmol/L (96-109); Glucose 82 mg/dL (70-110); Magnesium 1.6 mg/dL (1.5-2.4); Potassium 3.7 mmol/L (3.5-5.5); Sodium 134 mmol/L (135-145)
[2023-06-06 11:48] VITALS: BMI 16.0
--- NOTE | 2023-06-06 12:03 | P.PN ---
Subjective Progress Note Date: 06/06/23 patient is a 63-year-old lady with past medical history significant for Atrial fibrillation, coronary artery disease, chest pain with angina, COPD, CVA/TIA, GERD, hyperlipidemia, hypertension, osteoarthritis, seizure disorder, Crohn's, anxiety/bipolar depression who presented to the ER because of nausea and vomiting last couple of days. Patient was discharged only a couple of days ago after being admitted for chest pain rule out. Patient stated that she has been noticing that she was having low appetite and started having nausea and vomiting. Patient also complaining of diarrhea. Patient has been complaining of loss of appetite and loss of weight for the last 5-6 months. Denies any chest pain. Denies any shortness of breath. Denies any fever or chills. Lona use of the symptoms, patient came to the ER Initial lab work done in the ER showed WBC 12.6, hemoglobin 11.5, platelet count 442, sodium 124, potassium 3.2, BUN 8, creatinine 0.47, glucose 109, lipase 366 Patient admitted to medicine service 06/06. Patient seen and examined. Electrolytes have improved. Patient is still stating that she is lethargic. Continues to have poor appetite REVIEW OF SYSTEMS: CONSTITUTIONAL: No fever, no malaise,. CARDIOVASCULAR: No chest pain, no palpitations, no syncope. PULMONARY: No shortness of breath, no cough, GASTROINTESTINAL: No diarrhea, no nausea, no vomiting, no abdominal pain. NEUROLOGICAL: No headaches, no weakness, PHYSICAL EXAMINATION: GENERAL: The patient is alert and oriented x3, not in any acute distress. Well developed, well nourished. HEENT: Pupils are round and equally reacting to light. EOMI. No scleral icterus. No conjunctival pallor. Normocephalic, atraumatic. No pharyngeal erythema. No thyromegaly. CARDIOVASCULAR: S1 and S2 present. No murmurs, rubs, or gallops. PULMONARY: Chest is clear to auscultation, no wheezing or crackles. ABDOMEN: Soft, nontender, nondistended, normoactive bowel sounds. No palpable organomegaly. MUSCULOSKELETAL: No joint swelling or deformity. EXTREMITIES: No cyanosis, clubbing, or pedal edema. NEUROLOGICAL: Gross neurological examination did not reveal any focal deficits. SKIN: No rashes. Assessment and plan Hyponatremia Hypokalemia Cachexia History of COPD, not in exacerbation Chronic hypoxic respiratory failure secondary to COPD Continued ongoing nicotine dependence History of atrial fibrillation, currently rate controlled Angina CVA/TIA history GERD Hyperlipidemia Hypertension Osteoarthritis Seizure disorder Crohn's disease History of anxiety/bipolar depression Monitor vital signs Monitor CBC Monitor CMP Continue IV fluid Continue antiemetics Nutrition consulted Continue Keppra Continue Xarelto Continue home meds Labs and medication were reviewed.. Continue same treatment. Continue with symptomatic treatment. Resume home medication. Monitor labs and vitals. DVT and GI prophylaxis. Further recommendations as per clinical course of the patient Dictation was produced using [employer] dictation software. please excuse any grammatical, word or spelling errors. Objective - Vital Signs Vital signs: Vital Signs Temp 98.2 F 06/06/23 07:00 Pulse 80 06/06/23 08:18 Resp 16 06/06/23 07:00 BP 102/62 06/06/23 07:00 Pulse Ox 100 06/06/23 07:00 FiO2 Intake & Output 06/05/23 06/06/23 06/06/23 18:59 06:59 18:59 Intake Total 120 Output Total 400 Balance -400 120 Weight 47.627 kg 47.627 kg Intake: Oral 120 Output: Urine 400 Other: Voiding Method Bedside Commode Bedside Commode # Voids 3 0 # Bowel Movements 1 - Labs CBC & Chem 7: 06/06/23 05:41 06/06/23 05:41 Labs: Abnormal Lab Results - Last 24 Hours (Table) 06/05/23 06/05/23 06/05/23 Range/Units 12:29 12:44 12:44 WBC 12.6 H (3.8-10.6) k/uL RBC (4.10-5.20) X 10*6/uL Hgb (12.0-15.0) d/dL Hct (37.2-46.3) % MCV 78.3 L (80.0-100.0) fL MCH (27.0-32.0) pg MCHC (32.0-37.0) d/dL RDW 16.9 H (11.5-15.5) % Neutrophils # 9.6 H (1.3-7.7) k/uL Monocytes # (0.20-1.00) X 10*3/uL Sodium 124 L (137-145) mmol/L Potassium 3.2 L (3.5-5.1) mmol/L Chloride 91 L (98-107) mmol/L BUN (9.0-27.0) mg/dL Creatinine 0.47 L (0.52-1.04) mg/dL Glucose 109 H (74-99) mg/dL Calcium 8.0 L (8.4-10.2) mg/dL Albumin 3.1 L (3.5-5.0) g/dL Lipase 366 H (23-300) U/L Urine Ketones 1+ H (Negative) 06/06/23 06/06/23 Range/Units 05:41 05:41 WBC 10.06 H (3.8-10.6) k/uL RBC 3.43 L (4.10-5.20) X 10*6/uL Hgb 8.9 L (12.0-15.0) d/dL Hct 28.1 L (37.2-46.3) % MCV (80.0-100.0) fL MCH 25.9 L (27.0-32.0) pg MCHC 31.7 L (32.0-37.0) d/dL RDW 17.3 H (11.5-15.5) % Neutrophils # (1.3-7.7) k/uL Monocytes # 1.29 H (0.20-1.00) X 10*3/uL Sodium 134 L (137-145) mmol/L Potassium (3.5-5.1) mmol/L Chloride (98-107) mmol/L BUN 5.6 L (9.0-27.0) mg/dL Creatinine 0.4 L (0.52-1.04) mg/dL Glucose (74-99) mg/dL Calcium 7.7 L (8.4-10.2) mg/dL Albumin (3.5-5.0) g/dL Lipase (23-300) U/L Urine Ketones (Negative)
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
[2023-06-06] MEDS: ONDANSETRON 4 MG/2 ML VIAL IVP PRN (15:14)
[2023-06-06] MEDS: HYDROcodone/APAP 5-325MG 1 EACH TAB PO PRN (16:27)
[2023-06-06] MEDS: RIVAROXABAN 20 MG TAB PO SCH (16:28)
[2023-06-06] MEDS: QUEtiapine 400 MG TAB PO SCH (20:50)
[2023-06-07] MEDS: ONDANSETRON 4 MG/2 ML VIAL IVP PRN (07:45)
[2023-06-07] MEDS: SODIUM CHLORIDE 0.9% 1,000 ML IV SCH ×2 (08:11→20:19)
[2023-06-07] MEDS: HYDROmorphone 0.5 MG/0.5 ML SYRINGE IVP PRN ×3 (09:17→17:40)
[2023-06-07] MEDS: PANTOPRAZOLE 40 MG/10 ML VIAL IVP SCH (09:17)
[2023-06-07] MEDS: levETIRAcetam 500 MG TAB PO SCH ×2 (09:18→20:16)
[2023-06-07] MEDS: GABAPENTIN 300 MG CAP PO SCH ×3 (09:18→20:16)
[2023-06-07 09:35] LABS: ALT 10 U/L (8-44); AST 12 U/L (13-35); Albumin 2.4 d/dL (3.8-4.9); Albumin/Globulin Ratio 1.14 Ratio (1.60-3.17); Alkaline Phosphatase 50 U/L (41-126); Blood Urea Nitrogen 5.7 mg/dL (9.0-27.0); Calcium 7.8 mg/dL (8.7-10.3); Carbon Dioxide 27.2 mmol/L (21.6-31.8); Chloride 105 mmol/L (96-109); Globulin 2.1 d/dL (1.6-3.3); Glucose 96 mg/dL (70-110); Potassium 3.4 mmol/L (3.5-5.5); Sodium 139 mmol/L (135-145); Total Bilirubin <0.2 mg/dL (0.3-1.2); Total Protein 4.5 d/dL (6.2-8.2)
[2023-06-07 09:36] LABS: HGB 8.4 d/dL (12.0-15.0); MCH 25.2 pg (27.0-32.0); MCHC 31.1 d/dL (32.0-37.0); MCV 81.1 FL (80.0-97.0); Mean Platelet Volume 9.5 FL (9.5-12.2); NRBC Per 100 WBC 0 X 10*3/uL (0.00-0.01); Platelet Count 325 X 10*3/uL (140-440); RBC 3.33 X 10*6/uL (4.10-5.20); RDW 17.2 % (11.5-14.5); WBC 9.83 X 10*3/uL (4.50-10.00)
[2023-06-07] MEDS: FORMOTEROL FUMARATE 20 MCG/2 ML NEBU INHALATION SCH ×2 (11:31→19:51)
[2023-06-07] MEDS: IPRATROPIUM-ALBUTEROL 3 ML NEB INHALATION SCH ×5 (11:32→19:51)
[2023-06-07] MEDS: METOPROLOL SUCCINATE (ER) 50 MG TAB.ER.24H PO SCH (11:55)
[2023-06-07] MEDS: HYDROcodone/APAP 5-325MG 1 EACH TAB PO PRN ×2 (11:55→20:16)
[2023-06-07] MEDS: FLUTICASONE 50MCG/SPRAY NASAL 16GM EA NOSTRIL SCH (11:56)
[2023-06-07] MEDS ORDERED: POTASSIUM CHLORIDE ER 20 MEQ TAB.ER PO STA (12:07)
--- NOTE | 2023-06-07 12:34 | P.PN ---
Subjective Progress Note Date: 06/07/23 patient is a 63-year-old lady with past medical history significant for Atrial fibrillation, coronary artery disease, chest pain with angina, COPD, CVA/TIA, GERD, hyperlipidemia, hypertension, osteoarthritis, seizure disorder, Crohn's, anxiety/bipolar depression who presented to the ER because of nausea and vomiting last couple of days. Patient was discharged only a couple of days ago after being admitted for chest pain rule out. Patient stated that she has been noticing that she was having low appetite and started having nausea and vomiting. Patient also complaining of diarrhea. Patient has been complaining of loss of appetite and loss of weight for the last 5-6 months. Denies any chest pain. Denies any shortness of breath. Denies any fever or chills. Lona use of the symptoms, patient came to the ER Initial lab work done in the ER showed WBC 12.6, hemoglobin 11.5, platelet count 442, sodium 124, potassium 3.2, BUN 8, creatinine 0.47, glucose 109, lipase 366 Patient admitted to medicine service 06/06. Patient seen and examined. Electrolytes have improved. Patient is still stating that she is lethargic. Continues to have poor appetite 06/07. Patient seen and examined. Complaining of diarrhea and abdominal pain. REVIEW OF SYSTEMS: CONSTITUTIONAL: No fever, no malaise,. CARDIOVASCULAR: No chest pain, no palpitations, no syncope. PULMONARY: No shortness of breath, no cough, GASTROINTESTINAL: As mentioned above NEUROLOGICAL: No headaches, no weakness, PHYSICAL EXAMINATION: GENERAL: The patient is alert and oriented x3, not in any acute distress. Well developed, well nourished. HEENT: Pupils are round and equally reacting to light. EOMI. No scleral icterus. No conjunctival pallor. Normocephalic, atraumatic. No pharyngeal erythema. No thyromegaly. CARDIOVASCULAR: S1 and S2 present. No murmurs, rubs, or gallops. PULMONARY: Chest is clear to auscultation, no wheezing or crackles. ABDOMEN: Soft, nontender, nondistended, normoactive bowel sounds. No palpable organomegaly. MUSCULOSKELETAL: No joint swelling or deformity. EXTREMITIES: No cyanosis, clubbing, or pedal edema. NEUROLOGICAL: Gross neurological examination did not reveal any focal deficits. SKIN: No rashes. Assessment and plan Hyponatremia Hypokalemia Stage II pressure ulcers sacral Cachexia History of COPD, not in exacerbation Chronic hypoxic respiratory failure secondary to COPD Continued ongoing nicotine dependence History of atrial fibrillation, currently rate controlled Angina CVA/TIA history GERD Hyperlipidemia Hypertension Osteoarthritis Seizure disorder Crohn's disease History of anxiety/bipolar depression Monitor vital signs Monitor CBC Monitor CMP Continue IV fluid Continue antiemetics Orders stool for C. diff Add lactobacillus Continue Keppra Continue Xarelto Continue home meds Continue wound care per wound care team Labs and medication were reviewed.. Continue same treatment. Continue with symptomatic treatment. Resume home medication. Monitor labs and vitals. DVT and GI prophylaxis. Further recommendations as per clinical course of the patient Dictation was produced using [employer] dictation software. please excuse any grammatical, word or spelling errors. Objective - Vital Signs Vital signs: Vital Signs Temp 100.0 F H 06/07/23 11:34 Pulse 89 06/07/23 11:34 Resp 16 06/07/23 11:34 BP 102/53 06/07/23 11:34 Pulse Ox 99 06/07/23 11:34 FiO2 Intake & Output 06/06/23 06/07/23 06/07/23 18:59 06:59 18:59 Intake Total 330 477 Balance 330 477 Weight 47.627 kg Intake: Oral 330 477 Other: Voiding Method Bedside Commode Bedside Commode Bedside Commode # Voids 1 2 - Labs CBC & Chem 7: 06/07/23 04:07 06/07/23 04:07 Labs: Abnormal Lab Results - Last 24 Hours (Table) 06/07/23 06/07/23 Range/Units 04:07 04:07 RBC 3.33 L (4.10-5.20) X 10*6/uL Hgb 8.4 L (12.0-15.0) d/dL Hct 27.0 L (37.2-46.3) % MCH 25.2 L (27.0-32.0) pg MCHC 31.1 L (32.0-37.0) d/dL RDW 17.2 H (11.5-14.5) % Potassium 3.4 L (3.5-5.5) mmol/L BUN 5.7 L (9.0-27.0) mg/dL Creatinine 0.5 L (0.6-1.5) mg/dL BUN/Creatinine Ratio 11.40 L (12.00-20.00) Ratio Calcium 7.8 L (8.7-10.3) mg/dL Total Bilirubin <0.2 L (0.3-1.2) mg/dL AST 12 L (13-35) U/L Total Protein 4.5 L (6.2-8.2) d/dL Albumin 2.4 L (3.8-4.9) d/dL Albumin/Globulin Ratio 1.14 L (1.60-3.17) Ratio
[2023-06-07] MEDS: LACTOBACILLUS ACIDOPHILUS/PECT 1 EACH CAPSULE PO SCH ×3 (14:13→20:16)
[2023-06-07] MEDS: RIVAROXABAN 20 MG TAB PO SCH (17:16)
[2023-06-07] MEDS: QUEtiapine 400 MG TAB PO SCH (20:16)
[2023-06-08] MEDS: HYDROmorphone 0.5 MG/0.5 ML SYRINGE IVP PRN (02:02)
[2023-06-08] MEDS: LACTOBACILLUS ACIDOPHILUS/PECT 1 EACH CAPSULE PO SCH ×3 (07:57→21:12)
[2023-06-08] MEDS: levETIRAcetam 500 MG TAB PO SCH ×2 (07:57→21:12)
[2023-06-08] MEDS: METOPROLOL SUCCINATE (ER) 50 MG TAB.ER.24H PO SCH (07:58)
[2023-06-08] MEDS: PANTOPRAZOLE 40 MG/10 ML VIAL IVP SCH (07:58)
[2023-06-08] MEDS: GABAPENTIN 300 MG CAP PO SCH ×3 (07:58→21:12)
[2023-06-08] MEDS: SODIUM CHLORIDE 0.9% 1,000 ML IV SCH (07:58)
[2023-06-08] MEDS: IPRATROPIUM-ALBUTEROL 3 ML NEB INHALATION SCH ×4 (08:01→19:41)
[2023-06-08] MEDS: FORMOTEROL FUMARATE 20 MCG/2 ML NEBU INHALATION SCH ×2 (08:01→19:40)
[2023-06-08] MEDS: HYDROcodone/APAP 5-325MG 1 EACH TAB PO PRN ×2 (08:06→18:26)
[2023-06-08] MEDS: FLUTICASONE 50MCG/SPRAY NASAL 16GM EA NOSTRIL SCH (08:07)
[2023-06-08 08:44] LABS: HCT 26.9 % (37.2-46.3); HGB 8.5 d/dL (12.0-15.0); MCH 25.8 pg (27.0-32.0); MCHC 31.6 d/dL (32.0-37.0); MCV 81.5 FL (80.0-97.0); Mean Platelet Volume 9.2 FL (9.5-12.2); NRBC Per 100 WBC 0 X 10*3/uL (0.00-0.01); Platelet Count 322 X 10*3/uL (140-440); RDW 17.4 % (11.5-14.5); WBC 10.71 X 10*3/uL (4.50-10.00)
[2023-06-08 09:12] LABS: ALT 11 U/L (8-44); AST 17 U/L (13-35); Albumin 2.4 d/dL (3.8-4.9); Albumin/Globulin Ratio 1.26 Ratio (1.60-3.17); Alkaline Phosphatase 46 U/L (41-126); BUN/Creat Ratio 18.25 Ratio (12.00-20.00); Blood Urea Nitrogen 7.3 mg/dL (9.0-27.0); Calcium 7.6 mg/dL (8.7-10.3); Carbon Dioxide 26.4 mmol/L (21.6-31.8); Chloride 99 mmol/L (96-109); Globulin 1.9 d/dL (1.6-3.3); Glucose 117 mg/dL (70-110); Potassium 3.1 mmol/L (3.5-5.5); Sodium 133 mmol/L (135-145); Total Bilirubin <0.2 mg/dL (0.3-1.2); Total Protein 4.3 d/dL (6.2-8.2)
[2023-06-08] MEDS ORDERED: Potassium Replacement Protocol 1 EACH MISC MISCELLANE PRN (09:31)
[2023-06-08] MEDS: POTASSIUM CHLORIDE ER 20 MEQ TAB.ER PO SCH ×2 (11:11→17:47)
--- NOTE | 2023-06-08 13:59 | P.PN ---
Subjective Progress Note Date: 06/08/23 patient is a 63-year-old lady with past medical history significant for Atrial fibrillation, coronary artery disease, chest pain with angina, COPD, CVA/TIA, GERD, hyperlipidemia, hypertension, osteoarthritis, seizure disorder, Crohn's, anxiety/bipolar depression who presented to the ER because of nausea and vomiting last couple of days. Patient was discharged only a couple of days ago after being admitted for chest pain rule out. Patient stated that she has been noticing that she was having low appetite and started having nausea and vomiting. Patient also complaining of diarrhea. Patient has been complaining of loss of appetite and loss of weight for the last 5-6 months. Denies any chest pain. Denies any shortness of breath. Denies any fever or chills. Lona use of the symptoms, patient came to the ER Initial lab work done in the ER showed WBC 12.6, hemoglobin 11.5, platelet count 442, sodium 124, potassium 3.2, BUN 8, creatinine 0.47, glucose 109, lipase 366 Patient admitted to medicine service 06/06. Patient seen and examined. Electrolytes have improved. Patient is still stating that she is lethargic. Continues to have poor appetite 06/07. Patient seen and examined. Complaining of diarrhea and abdominal pain. 06/08. Patient seen and examined. Still having diarrhea. Stool for C. diff is negative, sodium is 133, potassium of 3.1 this morning REVIEW OF SYSTEMS: CONSTITUTIONAL: No fever, no malaise,. CARDIOVASCULAR: No chest pain, no palpitations, no syncope. PULMONARY: No shortness of breath, no cough, GASTROINTESTINAL: As mentioned above NEUROLOGICAL: No headaches, no weakness, PHYSICAL EXAMINATION: GENERAL: The patient is alert and oriented x3, not in any acute distress. Well developed, well nourished. HEENT: Pupils are round and equally reacting to light. EOMI. No scleral icterus. No conjunctival pallor. Normocephalic, atraumatic. No pharyngeal erythema. No thyromegaly. CARDIOVASCULAR: S1 and S2 present. No murmurs, rubs, or gallops. PULMONARY: Chest is clear to auscultation, no wheezing or crackles. ABDOMEN: Soft, nontender, nondistended, normoactive bowel sounds. No palpable organomegaly. MUSCULOSKELETAL: No joint swelling or deformity. EXTREMITIES: No cyanosis, clubbing, or pedal edema. NEUROLOGICAL: Gross neurological examination did not reveal any focal deficits. SKIN: No rashes. Assessment and plan Hyponatremia Hypokalemia Stage II pressure ulcers sacral Cachexia History of COPD, not in exacerbation Chronic hypoxic respiratory failure secondary to COPD Continued ongoing nicotine dependence History of atrial fibrillation, currently rate controlled Angina CVA/TIA history GERD Hyperlipidemia Hypertension Osteoarthritis Seizure disorder Crohn's disease History of anxiety/bipolar depression Monitor vital signs Monitor CBC Monitor CMP Potassium replacemen ordered Continue antiemetics Continue lactobacillus, start Imodium Continue Keppra Continue Xarelto Continue home meds Continue wound care per wound care team Labs and medication were reviewed.. Continue same treatment. Continue with symptomatic treatment. Resume home medication. Monitor labs and vitals. DVT and GI prophylaxis. Further recommendations as per clinical course of the patient Dictation was produced using [employer] dictation software. please excuse any grammatical, word or spelling errors. Objective - Vital Signs Vital signs: Vital Signs Temp 98.2 F 06/08/23 07:20 Pulse 88 06/08/23 07:20 Resp 16 06/08/23 07:20 BP 108/67 06/08/23 07:20 Pulse Ox 97 06/08/23 07:20 FiO2 Intake & Output 06/07/23 06/08/23 06/08/23 18:59 06:59 18:59 Intake Total 1069 237 Balance 1069 237 Weight 47.627 kg Intake: Oral 1069 237 Other: Voiding Method Bedside Commode Bedside Commode # Voids 1 1 1 # Bowel Movements 1 2 1 - Labs CBC & Chem 7: 06/08/23 04:08 06/08/23 04:08 Labs: Abnormal Lab Results - Last 24 Hours (Table) 06/08/23 06/08/23 Range/Units 04:08 04:08 WBC 10.71 H (4.50-10.00) X 10*3/uL RBC 3.30 L (4.10-5.20) X 10*6/uL Hgb 8.5 L (12.0-15.0) d/dL Hct 26.9 L (37.2-46.3) % MCH 25.8 L (27.0-32.0) pg MCHC 31.6 L (32.0-37.0) d/dL RDW 17.4 H (11.5-14.5) % MPV 9.2 L (9.5-12.2) FL Sodium 133 L (135-145) mmol/L Potassium 3.1 L (3.5-5.5) mmol/L BUN 7.3 L (9.0-27.0) mg/dL Creatinine 0.4 L (0.6-1.5) mg/dL Glucose 117 H (70-110) mg/dL Calcium 7.6 L (8.7-10.3) mg/dL Total Bilirubin <0.2 L (0.3-1.2) mg/dL Total Protein 4.3 L (6.2-8.2) d/dL Albumin 2.4 L (3.8-4.9) d/dL Albumin/Globulin Ratio 1.26 L (1.60-3.17) Ratio
[2023-06-08] MEDS: LOPERAMIDE 2 MG CAP PO SCH ×3 (14:07→21:12)
[2023-06-08] MEDS: RIVAROXABAN 20 MG TAB PO SCH (17:47)
[2023-06-08] MEDS: QUEtiapine 400 MG TAB PO SCH (21:12)
[2023-06-08] MEDS ORDERED: POTASSIUM CHLORIDE ER 20 MEQ TAB.ER PO STA (21:15)
[2023-06-09] MEDS: HYDROcodone/APAP 5-325MG 1 EACH TAB PO PRN ×3 (06:48→20:17)
[2023-06-09] MEDS: IPRATROPIUM-ALBUTEROL 3 ML NEB INHALATION SCH ×4 (07:49→19:55)
[2023-06-09] MEDS: FORMOTEROL FUMARATE 20 MCG/2 ML NEBU INHALATION SCH ×2 (07:49→19:55)
[2023-06-09] MEDS: METOPROLOL SUCCINATE (ER) 50 MG TAB.ER.24H PO SCH ×2 (08:32→21:47)
[2023-06-09] MEDS: GABAPENTIN 300 MG CAP PO SCH ×3 (08:32→20:18)
[2023-06-09] MEDS: LACTOBACILLUS ACIDOPHILUS/PECT 1 EACH CAPSULE PO SCH ×3 (08:43→20:17)
[2023-06-09] MEDS: PANTOPRAZOLE 40 MG/10 ML VIAL IVP SCH (08:43)
[2023-06-09] MEDS: levETIRAcetam 500 MG TAB PO SCH ×2 (08:43→20:18)
[2023-06-09] MEDS: FLUTICASONE 50MCG/SPRAY NASAL 16GM EA NOSTRIL SCH (08:44)
[2023-06-09] MEDS: LOPERAMIDE 2 MG CAP PO SCH ×4 (08:44→20:18)
[2023-06-09 09:07] LABS: HCT 28.1 % (37.2-46.3); HGB 8.9 d/dL (12.0-15.0); MCH 25.6 pg (27.0-32.0); MCHC 31.7 d/dL (32.0-37.0); MCV 80.7 FL (80.0-97.0); Mean Platelet Volume 9.6 FL (9.5-12.2); NRBC Per 100 WBC 0 X 10*3/uL (0.00-0.01); Platelet Count 378 X 10*3/uL (140-440); RBC 3.48 X 10*6/uL (4.10-5.20); RDW 17.4 % (11.5-14.5); WBC 10.59 X 10*3/uL (4.50-10.00)
[2023-06-09 10:04] LABS: ALT 24 U/L (8-44); AST 38 U/L (13-35); Albumin 2.3 d/dL (3.8-4.9); Albumin/Globulin Ratio 1.05 Ratio (1.60-3.17); Alkaline Phosphatase 54 U/L (41-126); Blood Urea Nitrogen 7.2 mg/dL (9.0-27.0); Carbon Dioxide 25.5 mmol/L (21.6-31.8); Chloride 102 mmol/L (96-109); Globulin 2.2 d/dL (1.6-3.3); Glucose 78 mg/dL (70-110); Potassium 4.4 mmol/L (3.5-5.5); Sodium 135 mmol/L (135-145); Total Bilirubin <0.2 mg/dL (0.3-1.2); Total Protein 4.5 d/dL (6.2-8.2)
--- NOTE | 2023-06-09 12:47 | P.PN ---
Subjective Progress Note Date: 06/09/23 patient is a 63-year-old lady with past medical history significant for Atrial fibrillation, coronary artery disease, chest pain with angina, COPD, CVA/TIA, GERD, hyperlipidemia, hypertension, osteoarthritis, seizure disorder, Crohn's, anxiety/bipolar depression who presented to the ER because of nausea and vomiting last couple of days. Patient was discharged only a couple of days ago after being admitted for chest pain rule out. Patient stated that she has been noticing that she was having low appetite and started having nausea and vomiting. Patient also complaining of diarrhea. Patient has been complaining of loss of appetite and loss of weight for the last 5-6 months. Denies any chest pain. Denies any shortness of breath. Denies any fever or chills. Lona use of the symptoms, patient came to the ER Initial lab work done in the ER showed WBC 12.6, hemoglobin 11.5, platelet count 442, sodium 124, potassium 3.2, BUN 8, creatinine 0.47, glucose 109, lipase 366 Patient admitted to medicine service 06/06. Patient seen and examined. Electrolytes have improved. Patient is still stating that she is lethargic. Continues to have poor appetite 06/07. Patient seen and examined. Complaining of diarrhea and abdominal pain. 06/08. Patient seen and examined. Still having diarrhea. Stool for C. diff is negative, sodium is 133, potassium of 3.1 this morning 06/09. Patient seen and examined. Continues to complain of lethargy and weakness. Diarrhea has improved compared to yesterday. Denies Abdominal pain REVIEW OF SYSTEMS: CONSTITUTIONAL: No fever, no malaise,. CARDIOVASCULAR: No chest pain, no palpitations, no syncope. PULMONARY: No shortness of breath, no cough, GASTROINTESTINAL: As mentioned above NEUROLOGICAL: No headaches, no weakness, PHYSICAL EXAMINATION: GENERAL: The patient is alert and oriented x3, not in any acute distress. Well developed, well nourished. HEENT: Pupils are round and equally reacting to light. EOMI. No scleral icterus. No conjunctival pallor. Normocephalic, atraumatic. No pharyngeal erythema. No thyromegaly. CARDIOVASCULAR: S1 and S2 present. No murmurs, rubs, or gallops. PULMONARY: Chest is clear to auscultation, no wheezing or crackles. ABDOMEN: Soft, nontender, nondistended, normoactive bowel sounds. No palpable organomegaly. MUSCULOSKELETAL: No joint swelling or deformity. EXTREMITIES: No cyanosis, clubbing, or pedal edema. NEUROLOGICAL: Gross neurological examination did not reveal any focal deficits. SKIN: No rashes. Assessment and plan Hyponatremia Hypokalemia Stage II pressure ulcers sacral Cachexia History of COPD, not in exacerbation Chronic hypoxic respiratory failure secondary to COPD Continued ongoing nicotine dependence History of atrial fibrillation, currently rate controlled Angina CVA/TIA history GERD Hyperlipidemia Hypertension Osteoarthritis Seizure disorder Crohn's disease History of anxiety/bipolar depression Monitor vital signs Monitor CBC Monitor CMP Continue antiemetics Continue lactobacillus, Imodium Continue Keppra Continue Xarelto Continue home meds Continue wound care per wound care team Labs and medication were reviewed.. Continue same treatment. Continue with symptomatic treatment. Resume home medication. Monitor labs and vitals. DVT and GI prophylaxis. Further recommendations as per clinical course of the patient Dictation was produced using [employer] dictation software. please excuse any grammatical, word or spelling errors. Objective - Vital Signs Vital signs: Vital Signs Temp 98.6 F 06/09/23 08:15 Pulse 84 06/09/23 11:50 Resp 16 06/09/23 08:15 BP 91/55 06/09/23 11:23 Pulse Ox 99 06/09/23 11:23 FiO2 Intake & Output 06/08/23 06/09/23 06/09/23 18:59 06:59 18:59 Intake Total 474 240 Balance 474 240 Intake: Oral 474 240 Other: Voiding Method Bedside Commode # Voids 3 1 # Bowel Movements 3 3 1 - Labs CBC & Chem 7: 06/09/23 06:20 06/09/23 06:20 Labs: Abnormal Lab Results - Last 24 Hours (Table) 06/08/23 06/09/23 06/09/23 Range/Units 14:24 06:20 06:20 WBC 10.59 H (4.50-10.00) X 10*3/uL RBC 3.48 L (4.10-5.20) X 10*6/uL Hgb 8.9 L (12.0-15.0) d/dL Hct 28.1 L (37.2-46.3) % MCH 25.6 L (27.0-32.0) pg MCHC 31.7 L (32.0-37.0) d/dL RDW 17.4 H (11.5-14.5) % Potassium 3.1 L (3.5-5.1) mmol/L BUN 7.2 L (9.0-27.0) mg/dL Creatinine 0.3 L (0.6-1.5) mg/dL BUN/Creatinine Ratio 24.00 H (12.00-20.00) Ratio Calcium 8.0 L (8.7-10.3) mg/dL Total Bilirubin <0.2 L (0.3-1.2) mg/dL AST 38 H (13-35) U/L Total Protein 4.5 L (6.2-8.2) d/dL Albumin 2.3 L (3.8-4.9) d/dL Albumin/Globulin Ratio 1.05 L (1.60-3.17) Ratio
[2023-06-09] MEDS ORDERED: ALPRAZolam 0.25 MG TAB PO STA (16:41)
[2023-06-09] MEDS: RIVAROXABAN 20 MG TAB PO SCH (16:54)
[2023-06-09] MEDS: QUEtiapine 400 MG TAB PO SCH (20:18)
[2023-06-10] MEDS: IPRATROPIUM-ALBUTEROL 3 ML NEB INHALATION SCH ×4 (07:56→20:30)
[2023-06-10] MEDS: FORMOTEROL FUMARATE 20 MCG/2 ML NEBU INHALATION SCH ×2 (07:56→20:30)
[2023-06-10 09:01] LABS: HCT 28.4 % (37.2-46.3); HGB 8.9 d/dL (12.0-15.0); MCH 25.4 pg (27.0-32.0); MCHC 31.3 d/dL (32.0-37.0); MCV 81.1 FL (80.0-97.0); Mean Platelet Volume 9.8 FL (9.5-12.2); NRBC Per 100 WBC 0 X 10*3/uL (0.00-0.01); Platelet Count 400 X 10*3/uL (140-440); RDW 17.1 % (11.5-14.5); WBC 9.25 X 10*3/uL (4.50-10.00)
[2023-06-10 09:15] LABS: ALT 18 U/L (8-44); AST 19 U/L (13-35); Albumin 2.2 d/dL (3.8-4.9); Albumin/Globulin Ratio 0.96 Ratio (1.60-3.17); Alkaline Phosphatase 55 U/L (41-126); BUN/Creat Ratio 27.67 Ratio (12.00-20.00); Blood Urea Nitrogen 8.3 mg/dL (9.0-27.0); Calcium 7.9 mg/dL (8.7-10.3); Chloride 99 mmol/L (96-109); Globulin 2.3 d/dL (1.6-3.3); Glucose 74 mg/dL (70-110); Potassium 3.9 mmol/L (3.5-5.5); Sodium 134 mmol/L (135-145); Total Bilirubin <0.2 mg/dL (0.3-1.2); Total Protein 4.5 d/dL (6.2-8.2)
[2023-06-10 09:32] LABS: Basophils # (A) 0.05 X 10*3/uL (0.00-0.10); Basophils % (A) 0.5 %; Eosinophils # (A) 0.18 X 10*3/uL (0.04-0.35); Eosinophils % (A) 1.9 %; Lymphocytes # (A) 2.32 X 10*3/uL (0.90-5.00); Lymphocytes % (A) 25.1 %; Monocytes # (A) 1.53 X 10*3/uL (0.20-1.00); Monocytes % (A) 16.5 %; Neutrophils # (A) 5.14 X 10*3/uL (1.80-7.70); Neutrophils % (A) 55.7 %
[2023-06-10 09:33] LABS: RBC Morphology Normal (Normal)
[2023-06-10] MEDS: LOPERAMIDE 2 MG CAP PO SCH ×4 (09:49→19:47)
[2023-06-10] MEDS: PANTOPRAZOLE 40 MG/10 ML VIAL IVP SCH (09:49)
[2023-06-10] MEDS: HYDROcodone/APAP 5-325MG 1 EACH TAB PO PRN (09:49)
[2023-06-10] MEDS: levETIRAcetam 500 MG TAB PO SCH ×2 (09:50→19:47)
[2023-06-10] MEDS: GABAPENTIN 300 MG CAP PO SCH ×3 (09:50→19:47)
[2023-06-10] MEDS: METOPROLOL SUCCINATE (ER) 50 MG TAB.ER.24H PO SCH ×2 (09:50→19:47)
[2023-06-10] MEDS: FLUTICASONE 50MCG/SPRAY NASAL 16GM EA NOSTRIL SCH (09:50)
[2023-06-10] MEDS: LACTOBACILLUS ACIDOPHILUS/PECT 1 EACH CAPSULE PO SCH ×3 (09:50→19:46)
[2023-06-10] MEDS: HYDROmorphone 0.5 MG/0.5 ML SYRINGE IVP PRN ×3 (11:05→19:46)
--- NOTE | 2023-06-10 13:18 | P.PN ---
Subjective Progress Note Date: 06/10/23 patient is a 63-year-old lady with past medical history significant for Atrial fibrillation, coronary artery disease, chest pain with angina, COPD, CVA/TIA, GERD, hyperlipidemia, hypertension, osteoarthritis, seizure disorder, Crohn's, anxiety/bipolar depression who presented to the ER because of nausea and vomiting last couple of days. Patient was discharged only a couple of days ago after being admitted for chest pain rule out. Patient stated that she has been noticing that she was having low appetite and started having nausea and vomiting. Patient also complaining of diarrhea. Patient has been complaining of loss of appetite and loss of weight for the last 5-6 months. Denies any chest pain. Denies any shortness of breath. Denies any fever or chills. Lona use of the symptoms, patient came to the ER Initial lab work done in the ER showed WBC 12.6, hemoglobin 11.5, platelet count 442, sodium 124, potassium 3.2, BUN 8, creatinine 0.47, glucose 109, lipase 366 Patient admitted to medicine service 06/06. Patient seen and examined. Electrolytes have improved. Patient is still stating that she is lethargic. Continues to have poor appetite 06/07. Patient seen and examined. Complaining of diarrhea and abdominal pain. 06/08. Patient seen and examined. Still having diarrhea. Stool for C. diff is negative, sodium is 133, potassium of 3.1 this morning 06/09. Patient seen and examined. Continues to complain of lethargy and weakness. Diarrhea has improved compared to yesterday. Denies Abdominal pain 06/10. Patient seen and examined. Diarrhea has improved. Blood work done this morning showed WBC 9.25, hemoglobin 8.9, sodium 134, potassium 3.9. States she still complaining of lethargy REVIEW OF SYSTEMS: CONSTITUTIONAL: No fever, no malaise,. CARDIOVASCULAR: No chest pain, no palpitations, no syncope. PULMONARY: No shortness of breath, no cough, GASTROINTESTINAL: As mentioned above NEUROLOGICAL: No headaches, no weakness, PHYSICAL EXAMINATION: GENERAL: The patient is alert and oriented x3, not in any acute distress. Chronically ill-looking HEENT: Pupils are round and equally reacting to light. EOMI. No scleral icterus. No conjunctival pallor. Normocephalic, atraumatic. No pharyngeal erythema. No thyromegaly. CARDIOVASCULAR: S1 and S2 present. No murmurs, rubs, or gallops. PULMONARY: Chest is clear to auscultation, no wheezing or crackles. ABDOMEN: Soft, nontender, nondistended, normoactive bowel sounds. No palpable organomegaly. MUSCULOSKELETAL: No joint swelling or deformity. EXTREMITIES: No cyanosis, clubbing, or pedal edema. NEUROLOGICAL: Gross neurological examination did not reveal any focal deficits. SKIN: No rashes. Assessment and plan Hyponatremia Hypokalemia Stage II pressure ulcers sacral Cachexia History of COPD, not in exacerbation Chronic hypoxic respiratory failure secondary to COPD Continued ongoing nicotine dependence History of atrial fibrillation, currently rate controlled Angina CVA/TIA history GERD Hyperlipidemia Hypertension Osteoarthritis Seizure disorder Crohn's disease History of anxiety/bipolar depression Monitor vital signs Monitor CBC Monitor CMP Continue antiemetics Continue lactobacillus, Imodium Continue Keppra Continue Xarelto Continue home meds Continue wound care per wound care team Possible discharge in next 24 hours Labs and medication were reviewed.. Continue same treatment. Continue with symptomatic treatment. Resume home medication. Monitor labs and vitals. DVT and GI prophylaxis. Further recommendations as per clinical course of the patient Dictation was produced using [employer] dictation software. please excuse any grammatical, word or spelling errors. Objective - Vital Signs Vital signs: Vital Signs Temp 99.9 F H 06/10/23 07:18 Pulse 84 06/10/23 08:18 Resp 16 06/10/23 07:18 BP 91/46 06/10/23 07:18 Pulse Ox 100 06/10/23 07:18 FiO2 Intake & Output 06/09/23 06/10/23 06/10/23 18:59 06:59 18:59 Intake Total 240 90 Output Total 1 Balance 240 89 Intake: Oral 240 90 Output: Stool 1 Other: Voiding Method Bedside Commode # Voids 1 1 # Bowel Movements 1 - Labs CBC & Chem 7: 06/10/23 05:51 06/10/23 05:51 Labs: Abnormal Lab Results - Last 24 Hours (Table) 06/10/23 06/10/23 Range/Units 05:51 05:51 RBC 3.50 L (4.10-5.20) X 10*6/uL Hgb 8.9 L (12.0-15.0) d/dL Hct 28.4 L (37.2-46.3) % MCH 25.4 L (27.0-32.0) pg MCHC 31.3 L (32.0-37.0) d/dL RDW 17.1 H (11.5-14.5) % Monocytes # 1.53 H (0.20-1.00) X 10*3/uL Sodium 134 L (135-145) mmol/L BUN 8.3 L (9.0-27.0) mg/dL Creatinine 0.3 L (0.6-1.5) mg/dL BUN/Creatinine Ratio 27.67 H (12.00-20.00) Ratio Calcium 7.9 L (8.7-10.3) mg/dL Total Bilirubin <0.2 L (0.3-1.2) mg/dL Total Protein 4.5 L (6.2-8.2) d/dL Albumin 2.2 L (3.8-4.9) d/dL Albumin/Globulin Ratio 0.96 L (1.60-3.17) Ratio
[2023-06-10] MEDS: RIVAROXABAN 20 MG TAB PO SCH (18:15)
[2023-06-10] MEDS: QUEtiapine 400 MG TAB PO SCH (19:47)
[2023-06-11] MEDS: IPRATROPIUM-ALBUTEROL 3 ML NEB INHALATION SCH ×4 (08:09→19:43)
[2023-06-11] MEDS: FORMOTEROL FUMARATE 20 MCG/2 ML NEBU INHALATION SCH ×2 (08:09→19:43)
[2023-06-11] MEDS: LOPERAMIDE 2 MG CAP PO SCH ×4 (10:02→21:01)
[2023-06-11] MEDS: GABAPENTIN 300 MG CAP PO SCH ×3 (10:02→21:01)
[2023-06-11] MEDS: FLUTICASONE 50MCG/SPRAY NASAL 16GM EA NOSTRIL SCH (10:03)
[2023-06-11] MEDS: levETIRAcetam 500 MG TAB PO SCH ×2 (10:03→20:28)
[2023-06-11] MEDS: PANTOPRAZOLE 40 MG/10 ML VIAL IVP SCH (10:03)
[2023-06-11] MEDS: LACTOBACILLUS ACIDOPHILUS/PECT 1 EACH CAPSULE PO SCH ×3 (10:03→20:28)
[2023-06-11] MEDS: HYDROcodone/APAP 5-325MG 1 EACH TAB PO PRN ×2 (10:11→16:31)
--- NOTE | 2023-06-11 13:09 | CDI ---
Documentation Clarification Form Date: 06/11/2023 12:56:39 PM From: Shoshana Gibbons RN, CCDS Email: [email or web address] Admit Date: 06/07/2023 12:36:00 PM Patient Name: Fabiola Giraldo Visit Number: [id number] Discharge Date: ATTENTION: The Clinical Documentation Specialists (CDI) and [facility] Coding Staff appreciate your assistance in clarifying documentation. Please respond to the clarification below the line at the bottom and electronically sign. The CDI & [facility] Coding staff will review the response and follow-up if needed. Please note: Queries are made part of the Legal Health Record. If you have any questions, please contact the author of this message via ITS. Dr. Varun Cortez The Registered Dietitian assessment on 06/06 indicates this patient meets criteria for severe malnutrition. Based on this information and the findings below, is there an additional diagnosis that is clinically appropriate for this patient? History/Risk Factors: recent hospital admit 05/31, crohn's disease, pneumonia, HLD, HTN, COPD, chest pain/angina, chronic nausea/vomiting/diarrhea. Admitted with hyponatremia, hypokalemia and weight loss Clinical Indicators: poor appetite, underfeeding, stage 2 pressure ulcer to coccyx, severe muscle wasting and subcutaneous fat loss. Patient is eating less than 25% of meals and is not meeting nutritional needs for wound healing per RD. Current BMI: 16.0 06/[address] Consult Assessment: "severe malnutrition in context of chronic illness." Treatment: Ensure plus high protein TID, high calorie, high protein diet Is there an additional diagnosis that is clinically appropriate for this patient? [ x] Severe Protein-Calorie Malnutrition [ ] No additional diagnosis/Not clinically significant [ ] Other condition, please specify [ ] Unable to Determine MTDD
[2023-06-11 13:19] LABS: Anisocytosis Slight; Basophils % (A) 0 %; Eosinophils # (A) 0.1 k/uL (0-0.7); Eosinophils % (A) 1 %; HCT 28.6 % (34.0-46.0); Lymphocytes # (A) 2.3 k/uL (1.0-4.8); Lymphocytes % (A) 20 %; MCH 26.4 pg (25.0-35.0); MCHC 32.4 g/dL (31.0-37.0); MCV 81.4 fL (80.0-100.0); Mean Platelet Volume 7.7; Monocytes # (A) 1.2 k/uL (0-1.0); Monocytes % (A) 11 %; Neutrophils # (A) 7.7 k/uL (1.3-7.7); Neutrophils % (A) 66 %; Platelet Count 444 k/uL (150-450); RBC 3.51 m/uL (3.80-5.40); RDW 16.2 % (11.5-15.5); WBC 11.6 k/uL (3.8-10.6)
[2023-06-11 13:27] LABS: HGB 9.3 gm/dL (11.4-16.0)
[2023-06-11 13:29] LABS: ALT 17 U/L (4-34); AST 21 U/L (14-36); African American GFR (CKD) >90 (>60 ml/min/1.73 sqM); Albumin 2.4 g/dL (3.5-5.0); Albumin/Globulin Ratio 0.9; Alkaline Phosphatase 64 U/L (38-126); Anion Gap 3 mmol/L; Blood Urea Nitrogen 13 mg/dL (7-17); Calcium 7.9 mg/dL (8.4-10.2); Carbon Dioxide 33 mmol/L (22-30); Chloride 93 mmol/L (98-107); Globulin 2.7 g/dL; Glucose 138 mg/dL (74-99); Non-African American GFR(CKD) >90 (>60 ml/min/1.73 sqM); Potassium 3.6 mmol/L (3.5-5.1); Sodium 129 mmol/L (137-145); Total Bilirubin 0.3 mg/dL (0.2-1.3); Total Protein 5.1 g/dL (6.3-8.2)
[2023-06-11 13:42] LABS: Appearance,Urine Cloudy (Clear); Bacteria,Urine Few /hpf; Bilirubin,Urine Negative (Negative); Blood,Urine Trace (Negative); Color,Urine Light Yellow; Glucose,Urine (UA) Negative (Negative); Granular Casts,Urine 1 /lpf (0); Ketones,Urine Negative (Negative); Leukocyte Esterase,Urine Large (Negative); Mucus,Urine Occasional /hpf; Nitrite,Urine Negative (Negative); Protein,Urine Negative (Negative); RBC,Urine 4 /hpf (0-5); Specific Gravity,Urine 1.013 (1.001-1.035); Squamous Epithelial Cell,Urine <1 /hpf (0-4); Urobilinogen,Urine <2.0 mg/dL (<2.0); WBC,Urine 9 /hpf (0-5)
--- NOTE | 2023-06-11 14:33 | P.PN ---
Subjective Progress Note Date: 06/11/23 patient is a 63-year-old lady with past medical history significant for Atrial fibrillation, coronary artery disease, chest pain with angina, COPD, CVA/TIA, GERD, hyperlipidemia, hypertension, osteoarthritis, seizure disorder, Crohn's, anxiety/bipolar depression who presented to the ER because of nausea and vomiting last couple of days. Patient was discharged only a couple of days ago after being admitted for chest pain rule out. Patient stated that she has been noticing that she was having low appetite and started having nausea and vomiting. Patient also complaining of diarrhea. Patient has been complaining of loss of appetite and loss of weight for the last 5-6 months. Denies any chest pain. Denies any shortness of breath. Denies any fever or chills. Lona use of the symptoms, patient came to the ER Initial lab work done in the ER showed WBC 12.6, hemoglobin 11.5, platelet count 442, sodium 124, potassium 3.2, BUN 8, creatinine 0.47, glucose 109, lipase 366 Patient admitted to medicine service 06/06. Patient seen and examined. Electrolytes have improved. Patient is still stating that she is lethargic. Continues to have poor appetite 06/07. Patient seen and examined. Complaining of diarrhea and abdominal pain. 06/08. Patient seen and examined. Still having diarrhea. Stool for C. diff is negative, sodium is 133, potassium of 3.1 this morning 06/09. Patient seen and examined. Continues to complain of lethargy and weakness. Diarrhea has improved compared to yesterday. Denies Abdominal pain 06/10. Patient seen and examined. Diarrhea has improved. Blood work done this morning showed WBC 9.25, hemoglobin 8.9, sodium 134, potassium 3.9. States she still complaining of lethargy 06/11. Patient seen and examined. Encouraged patient to get out of bed and sit in the chair. Having been having low-grade fevers REVIEW OF SYSTEMS: CONSTITUTIONAL: No fever, no malaise,. CARDIOVASCULAR: No chest pain, no palpitations, no syncope. PULMONARY: No shortness of breath, no cough, GASTROINTESTINAL: As mentioned above NEUROLOGICAL: No headaches, no weakness, PHYSICAL EXAMINATION: GENERAL: The patient is alert and oriented x3, not in any acute distress. Chronically ill-looking HEENT: Pupils are round and equally reacting to light. EOMI. No scleral icterus. No conjunctival pallor. Normocephalic, atraumatic. No pharyngeal erythema. No thyromegaly. CARDIOVASCULAR: S1 and S2 present. No murmurs, rubs, or gallops. PULMONARY: Chest is clear to auscultation, no wheezing or crackles. ABDOMEN: Soft, nontender, nondistended, normoactive bowel sounds. No palpable organomegaly. MUSCULOSKELETAL: No joint swelling or deformity. EXTREMITIES: No cyanosis, clubbing, or pedal edema. NEUROLOGICAL: Gross neurological examination did not reveal any focal deficits. SKIN: No rashes. Assessment and plan Hyponatremia Hypokalemia Stage II pressure ulcers sacral Cachexia History of COPD, not in exacerbation Chronic hypoxic respiratory failure secondary to COPD Continued ongoing nicotine dependence History of atrial fibrillation, currently rate controlled Angina CVA/TIA history GERD Hyperlipidemia Hypertension Osteoarthritis Seizure disorder Crohn's disease History of anxiety/bipolar depression Monitor vital signs Monitor CBC Monitor CMP Ordered UA and chest x-ray Continue antiemetics Continue lactobacillus, Imodium Continue Keppra Continue Xarelto Continue home meds Continue wound care per wound care team Discussed with patient regarding rehab, patient stated that she will think about it Labs and medication were reviewed.. Continue same treatment. Continue with symptomatic treatment. Resume home medication. Monitor labs and vitals. DVT and GI prophylaxis. Further recommendations as per clinical course of the patient Dictation was produced using [employer] dictation software. please excuse any gr ammatical, word or spelling errors. Objective - Vital Signs Vital signs: Vital Signs Temp 98.2 F 06/11/23 14:00 Pulse 103 H 06/11/23 14:00 Resp 16 06/11/23 14:00 BP 100/49 06/11/23 14:00 Pulse Ox 99 06/11/23 14:00 FiO2 Intake & Output 06/10/23 06/11/23 06/11/23 18:59 06:59 18:59 Intake Total 210 90 Output Total 3 300 Balance 207 -210 Intake: Oral 210 90 Output: Urine 300 Stool 1 Urine/Stool Mix 2 Other: Voiding Method Bedside Commode # Voids 1 # Bowel Movements 1 - Labs CBC & Chem 7: 06/11/23 12:51 06/11/23 12:51 Labs: Abnormal Lab Results - Last 24 Hours (Table) 0906/11/23 06/11/23 Range/Units 12:51 12:51 13:18 WBC 11.6 H (3.8-10.6) k/uL RBC 3.51 L (3.80-5.40) m/uL Hgb 9.3 L D (11.4-16.0) gm/dL Hct 28.6 L (34.0-46.0) % RDW 16.2 H (11.5-15.5) % Monocytes # 1.2 H (0-1.0) k/uL Sodium 129 L (137-145) mmol/L Chloride 93 L (98-107) mmol/L Carbon Dioxide 33 H (22-30) mmol/L Creatinine 0.41 L (0.52-1.04) mg/dL Glucose 138 H (74-99) mg/dL Calcium 7.9 L (8.4-10.2) mg/dL Total Protein 5.1 L (6.3-8.2) g/dL Albumin 2.4 L (3.5-5.0) g/dL Urine Appearance Cloudy H (Clear) Urine Blood Trace H (Negative) Ur Leukocyte Esterase Large H (Negative) Urine WBC 9 H (0-5) /hpf Urine Bacteria Few H (None) /hpf Urine Mucus Occasional H (None) /hpf
[2023-06-11] MEDS: RIVAROXABAN 20 MG TAB PO SCH (16:47)
[2023-06-11] MEDS: METOPROLOL SUCCINATE (ER) 50 MG TAB.ER.24H PO SCH (17:30)
--- NOTE | 2023-06-11 19:41 | XR ---
EXAMINATION TYPE: XR chest 1V portable DATE OF EXAM: 06/11/2023 Comparison: 05/30/2023 Clinical History: 63-year-old female fever Findings: Some asymmetric volume loss right hemithorax slightly increased. New patchy opacity at the right base has developed along with suspected trace right pleural effusion. Background hyperinflation. Normal h eart size. Impression: COPD with some volume loss developing in the right hemithorax along with a small right effusion and p atchy right basilar opacity. Correlate for developing pneumonia here. Follow-up to ensure clearance.
[2023-06-11] MEDS: QUEtiapine 400 MG TAB PO SCH (20:28)
--- NOTE | 2023-06-12 07:37 | XR ---
EXAMINATION TYPE: XR chest 2V DATE OF EXAM: 06/12/2023 COMPARISON: 06/11/2023 INDICATION: Fever TECHNIQUE: Frontal and lateral views of the chest are obtained. FINDINGS: The heart size is normal. The pulmonary vasculature is normal. There is a small left pleural effusion. Some mild adjacent atelectasis is present. IMPRESSION: 1. Small left pleural effusion with adjacent atelectasis.
[2023-06-12] MEDS: FORMOTEROL FUMARATE 20 MCG/2 ML NEBU INHALATION SCH ×2 (08:18→19:42)
[2023-06-12] MEDS: IPRATROPIUM-ALBUTEROL 3 ML NEB INHALATION SCH ×4 (08:18→19:42)
[2023-06-12] MEDS: LOPERAMIDE 2 MG CAP PO SCH ×4 (09:50→20:38)
[2023-06-12] MEDS: levETIRAcetam 500 MG TAB PO SCH ×2 (09:50→20:38)
[2023-06-12] MEDS: GABAPENTIN 300 MG CAP PO SCH ×3 (09:50→20:38)
[2023-06-12] MEDS: HYDROcodone/APAP 5-325MG 1 EACH TAB PO PRN ×3 (09:50→20:39)
[2023-06-12] MEDS: LACTOBACILLUS ACIDOPHILUS/PECT 1 EACH CAPSULE PO SCH ×3 (09:50→20:38)
[2023-06-12] MEDS: FLUTICASONE 50MCG/SPRAY NASAL 16GM EA NOSTRIL SCH (09:51)
[2023-06-12] MEDS: PANTOPRAZOLE 40 MG/10 ML VIAL IVP SCH (09:51)
[2023-06-12] MEDS ORDERED: AZITHROMYCIN 500 MG in SODIUM CHLORIDE 0.9% 250 ML IVPB SCH (10:45)
--- NOTE | 2023-06-12 13:26 | P.PN ---
Subjective Progress Note Date: 06/12/23 patient is a 63-year-old lady with past medical history significant for Atrial fibrillation, coronary artery disease, chest pain with angina, COPD, CVA/TIA, GERD, hyperlipidemia, hypertension, osteoarthritis, seizure disorder, Crohn's, anxiety/bipolar depression who presented to the ER because of nausea and vomiting last couple of days. Patient was discharged only a couple of days ago after being admitted for chest pain rule out. Patient stated that she has been noticing that she was having low appetite and started having nausea and vomiting. Patient also complaining of diarrhea. Patient has been complaining of loss of appetite and loss of weight for the last 5-6 months. Denies any chest pain. Denies any shortness of breath. Denies any fever or chills. Lona use of the symptoms, patient came to the ER Initial lab work done in the ER showed WBC 12.6, hemoglobin 11.5, platelet count 442, sodium 124, potassium 3.2, BUN 8, creatinine 0.47, glucose 109, lipase 366 Patient admitted to medicine service 06/06. Patient seen and examined. Electrolytes have improved. Patient is still stating that she is lethargic. Continues to have poor appetite 06/07. Patient seen and examined. Complaining of diarrhea and abdominal pain. 06/08. Patient seen and examined. Still having diarrhea. Stool for C. diff is negative, sodium is 133, potassium of 3.1 this morning 06/09. Patient seen and examined. Continues to complain of lethargy and weakness. Diarrhea has improved compared to yesterday. Denies Abdominal pain 06/10. Patient seen and examined. Diarrhea has improved. Blood work done this morning showed WBC 9.25, hemoglobin 8.9, sodium 134, potassium 3.9. States she still complaining of lethargy 06/11. Patient seen and examined. Encouraged patient to get out of bed and sit in the chair. Having been having low-grade fevers 06/12. Patient seen and examined. Chest x-ray and UA done, chest x-ray showed pneumonia. UA was SUSPICIOUS for UTI. Patient still having diarrhea. having low-grade fevers REVIEW OF SYSTEMS: CONSTITUTIONAL: As mentioned in HPI CARDIOVASCULAR: No chest pain, no palpitations, no syncope. PULMONARY: No shortness of breath, no cough, GASTROINTESTINAL: As mentioned above NEUROLOGICAL: No headaches, no weakness, PHYSICAL EXAMINATION: GENERAL: The patient is alert and oriented x3, not in any acute distress. Chronically ill-looking HEENT: Pupils are round and equally reacting to light. EOMI. No scleral icterus. No conjunctival pallor. Normocephalic, atraumatic. No pharyngeal erythema. No thyromegaly. CARDIOVASCULAR: S1 and S2 present. No murmurs, rubs, or gallops. PULMONARY: Chest is clear to auscultation, no wheezing or crackles. ABDOMEN: Soft, nontender, nondistended, normoactive bowel sounds. No palpable organomegaly. MUSCULOSKELETAL: No joint swelling or deformity. EXTREMITIES: No cyanosis, clubbing, or pedal edema. NEUROLOGICAL: Gross neurological examination did not reveal any focal deficits. SKIN: No rashes. Assessment and plan UTI Pneumonia Hyponatremia Hypokalemia Stage II pressure ulcers sacral Cachexia History of COPD, not in exacerbation Chronic hypoxic respiratory failure secondary to COPD Continued ongoing nicotine dependence History of atrial fibrillation, currently rate controlled Angina CVA/TIA history GERD Hyperlipidemia Hypertension Osteoarthritis Seizure disorder Crohn's disease History of anxiety/bipolar depression Monitor vital signs Monitor CBC Monitor CMP Start IV Rocephin and azithromycin, Ordering urine culture Continue antiemetics Continue lactobacillus, Imodium Continue Keppra Continue Xarelto Continue home meds Continue wound care per wound care team ID consulted Discussed with patient regarding rehab, patient stated that she will think about it Labs and medication were reviewed.. Continue same treatment. Continue with symptomatic treatment. Resume home medication. Monitor labs and vitals. DVT and GI prophylaxis. Further recommendations as per clinical course of the patient Dictation was produced using [employer] dictation software. please excuse any grammatical, word or spelling errors. Objective - Vital Signs Vital signs: Vital Signs Temp 98.1 F 06/12/23 08:00 Pulse 88 06/12/23 08:39 Resp 19 06/12/23 08:00 BP 91/55 06/12/23 08:00 Pulse Ox 97 06/12/23 08:00 FiO2 Intake & Output 06/11/23 06/12/23 06/12/23 18:59 06:59 18:59 Intake Total 90 Output Total 300 Balance -210 Weight 47.627 kg Intake: Oral 90 Output: Urine 300 Other: Voiding Method Toilet Diaper # Voids 0 # Bowel Movements 1 1 - Labs CBC & Chem 7: 06/11/23 12:51 06/11/23 12:51 Labs: Abnormal Lab Results - Last 24 Hours (Table) 06/11/23 06/11/23 06/11/23 Range/Units 12:51 12:51 13:18 WBC 11.6 H (3.8-10.6) k/uL RBC 3.51 L (3.80-5.40) m/uL Hgb 9.3 L D (11.4-16.0) gm/dL Hct 28.6 L (34.0-46.0) % RDW 16.2 H (11.5-15.5) % Monocytes # 1.2 H (0-1.0) k/uL Sodium 129 L (137-145) mmol/L Chloride 93 L (98-107) mmol/L Carbon Dioxide 33 H (22-30) mmol/L Creatinine 0.41 L (0.52-1.04) mg/dL Glucose 138 H (74-99) mg/dL Calcium 7.9 L (8.4-10.2) mg/dL Total Protein 5.1 L (6.3-8.2) g/dL Albumin 2.4 L (3.5-5.0) g/dL Urine Appearance Cloudy H (Clear) Urine Blood Trace H (Negative) Ur Leukocyte Esterase Large H (Negative) Urine WBC 9 H (0-5) /hpf Urine Bacteria Few H (None) /hpf Urine Mucus Occasional H (None) /hpf
[2023-06-12] MEDS: RIVAROXABAN 20 MG TAB PO SCH (19:40)
[2023-06-12] MEDS: METOPROLOL SUCCINATE (ER) 50 MG TAB.ER.24H PO SCH (20:38)
[2023-06-12] MEDS: QUEtiapine 400 MG TAB PO SCH (20:38)
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
[2023-06-12] MEDS: metroNIDAZOLE 500 MG TAB PO SCH (22:50)
[2023-06-13] MEDS: FORMOTEROL FUMARATE 20 MCG/2 ML NEBU INHALATION SCH ×2 (08:20→19:42)
[2023-06-13] MEDS: IPRATROPIUM-ALBUTEROL 3 ML NEB INHALATION SCH ×4 (08:20→19:43)
[2023-06-13] MEDS: IOPAMIDOL CONTRAST (ORAL USE) VIAL PO PRN ×2 (08:28→09:30)
[2023-06-13 08:53] LABS: Basophils # (A) 0.03 X 10*3/uL (0.00-0.10); Basophils % (A) 0.4 %; Eosinophils # (A) 0.18 X 10*3/uL (0.04-0.35); Eosinophils % (A) 2.3 %; HGB 7.8 d/dL (12.0-15.0); Lymphocytes % (A) 25.1 %; MCH 26.1 pg (27.0-32.0); MCHC 32.5 d/dL (32.0-37.0); MCV 80.3 FL (80.0-97.0); Mean Platelet Volume 9.2 FL (9.5-12.2); Monocytes # (A) 1.26 X 10*3/uL (0.20-1.00); Monocytes % (A) 15.8 %; NRBC Per 100 WBC 0 X 10*3/uL (0.00-0.01); Neutrophils # (A) 4.46 X 10*3/uL (1.80-7.70); Platelet Count 400 X 10*3/uL (140-440); RBC 2.99 X 10*6/uL (4.10-5.20); RDW 16.2 % (11.5-14.5); WBC 7.96 X 10*3/uL (4.50-10.00)
[2023-06-13 10:00] LABS: ALT 10 U/L (8-44); AST 12 U/L (13-35); Albumin 2.2 d/dL (3.8-4.9); Albumin/Globulin Ratio 0.96 Ratio (1.60-3.17); Alkaline Phosphatase 53 U/L (41-126); Blood Urea Nitrogen 10.2 mg/dL (9.0-27.0); Calcium 7.9 mg/dL (8.7-10.3); Carbon Dioxide 28.6 mmol/L (21.6-31.8); Chloride 97 mmol/L (96-109); Globulin 2.3 d/dL (1.6-3.3); Glucose 83 mg/dL (70-110); Potassium 3.9 mmol/L (3.5-5.5); Sodium 135 mmol/L (135-145); Total Bilirubin <0.2 mg/dL (0.3-1.2); Total Protein 4.5 d/dL (6.2-8.2)
[2023-06-13] MEDS: levETIRAcetam 500 MG TAB PO SCH ×2 (10:31→19:49)
[2023-06-13] MEDS: GABAPENTIN 300 MG CAP PO SCH ×3 (10:31→19:48)
[2023-06-13] MEDS: LOPERAMIDE 2 MG CAP PO SCH ×4 (10:31→19:48)
[2023-06-13] MEDS: LACTOBACILLUS ACIDOPHILUS/PECT 1 EACH CAPSULE PO SCH ×3 (10:31→19:48)
[2023-06-13] MEDS: FLUTICASONE 50MCG/SPRAY NASAL 16GM EA NOSTRIL SCH (10:31)
[2023-06-13] MEDS: PANTOPRAZOLE 40 MG/10 ML VIAL IVP SCH (10:32)
[2023-06-13] MEDS: metroNIDAZOLE 500 MG TAB PO SCH ×3 (10:32→19:48)
[2023-06-13] MEDS ORDERED: SODIUM CHLORIDE 0.9% 1,000 ML IV SCH (10:45)
--- NOTE | 2023-06-13 14:51 | P.PN ---
Subjective Progress Note Date: 06/13/23 63-year-old lady with past medical history significant for Atrial fibrillation, coronary artery disease, chest pain with angina, COPD, CVA/TIA, GERD, hyperlipidemia, hypertension, osteoarthritis, seizure disorder, Crohn's, anxiety/bipolar depression who presented to the ER because of nausea and vomiting last couple of days. Patient was discharged only a couple of days ago after being admitted for chest pain rule out. Patient stated that she has been noticing that she was having low appetite and started having nausea and vomiting. Patient also complaining of diarrhea. Patient has been complaining of loss of appetite and loss of weight for the last 5-6 months. Denies any chest pain. Denies any shortness of breath. Denies any fever or chills. Because of the symptoms, patient came to the ER Initial lab work done in the ER showed WBC 12.6, hemoglobin 11.5, platelet count 442, sodium 124, potassium 3.2, BUN 8, creatinine 0.47, glucose 109, lipase 366 Patient admitted to medicine service 06/06. Patient seen and examined. Electrolytes have improved. Patient is still stating that she is lethargic. Continues to have poor appetite 06/07. Patient seen and examined. Complaining of diarrhea and abdominal pain. 06/08. Patient seen and examined. Still having diarrhea. Stool for C. diff is negative, sodium is 133, potassium of 3.1 this morning 06/09. Patient seen and examined. Continues to complain of lethargy and weakn ess. Diarrhea has improved compared to yesterday. Denies Abdominal pain 06/10. Patient seen and examined. Diarrhea has improved. Blood work done this morning showed WBC 9.25, hemoglobin 8.9, sodium 134, potassium 3.9. States she still complaining of lethargy 06/11. Patient seen and examined. Encouraged patient to get out of bed and sit in the chair. Having been having low-grade fevers 06/12. Patient seen and examined. Chest x-ray and UA done, chest x-ray showed pneumonia. UA was SUSPICIOUS for UTI. Patient still having diarrhea. having low-grade fevers 06/13: Patient evaluated bedside, patient states she has nausea however breathing has improved, cough is improved diarrhea has improved Objective - Vital Signs Vital signs: Vital Signs Temp 98.5 F 06/13/23 13:53 Pulse 85 06/13/23 13:53 Resp 16 06/13/23 13:53 BP 108/66 06/13/23 13:53 Pulse Ox 96 06/13/23 13:53 FiO2 Intake & Output 06/12/23 06/13/23 06/13/23 18:59 06:59 18:59 Other: Voiding Method Toilet Diaper Diaper # Voids 2 - Exam PHYSICAL EXAMINATION: GENERAL: The patient is alert and oriented x3, not in any acute distress. Chronically ill-looking HEENT: Pupils are round and equally reacting to light. EOMI. No scleral icterus. No conjunctival pallor. Normocephalic, atraumatic. No pharyngeal erythema. No thyromegaly. CARDIOVASCULAR: S1 and S2 present. No murmurs, rubs, or gallops. PULMONARY: Chest is clear to auscultation, no wheezing or crackles. ABDOMEN: Soft, nontender, nondistended, normoactive bowel sounds. No palpable organomegaly. MUSCULOSKELETAL: No joint swelling or deformity. EXTREMITIES: No cyanosis, clubbing, or pedal edema. NEUROLOGICAL: Gross neurological examination did not reveal any focal deficits. SKIN: No rashes. - Labs CBC & Chem 7: 06/13/23 05:37 06/13/23 05:37 Labs: Abnormal Lab Results - Last 24 Hours (Table) 06/13/23 06/13/23 Range/Units 05:37 05:37 RBC 2.99 L (4.10-5.20) X 10*6/uL Hgb 7.8 L (12.0-15.0) d/dL Hct 24.0 L (37.2-46.3) % MCH 26.1 L (27.0-32.0) pg RDW 16.2 H (11.5-14.5) % MPV 9.2 L (9.5-12.2) FL Monocytes # 1.26 H (0.20-1.00) X 10*3/uL Creatinine 0.3 L (0.6-1.5) mg/dL BUN/Creatinine Ratio 34.00 H (12.00-20.00) Ratio Calcium 7.9 L (8.7-10.3) mg/dL Total Bilirubin <0.2 L (0.3-1.2) mg/dL AST 12 L (13-35) U/L C-Reactive Protein 10.10 H (0.00-0.80) mg/dL Total Protein 4.5 L (6.2-8.2) d/dL Albumin 2.2 L (3.8-4.9) d/dL Albumin/Globulin Ratio 0.96 L (1.60-3.17) Ratio Microbiology - Last 24 Hours (Table) 06/11/23 13:18 Urine Culture - Preliminary Urine,Voided Gram Neg Bacilli Assessment and Plan Assessment: Assessment and plan * Urinary tract infection * Multifocal pneumonia * Stage II pressure ulcer on sacrum present on admission * Protein calorie malnutrition * History of atrial fibrillation * Chronic hypoxic respiratory failure secondary to COPD * Hypertension * Hyperlipidemia * Seizure disorder * In regards to urinary tract infection continue patient on IV Rocephin, urine culture positive for gram-negative bacilli * CT abdomen pelvis ordered and pending, infectious disease on consult * In regards to history of seizure disorder continue patient on Keppra * Patient does complain of diarrhea continue Lomotil, stool C. diff negative * In regards to history of atrial fibrillation continue patient on 02, continue metoprolol * Follow up on CBC and basic metabolic panel
[2023-06-13] MEDS: RIVAROXABAN 20 MG TAB PO SCH (17:09)
--- NOTE | 2023-06-13 17:38 | CT ---
EXAMINATION TYPE: CT abdomen pelvis w con DATE OF EXAM: 06/13/2023 COMPARISON: 03/20/2023, 05/30/2023 INDICATION: Abdominal pain and diarrhea. DLP: 409.1 mGycm, Automated exposure control for dose reduction was used. CONTRAST: 100ml mL of Isovue 300. Study performed with Oral Contrast TECHNIQUE: Axial images were obtained from above the diaphragm to the pubic rami in the axial plane a t 5 mm thick sections. Reconstructed images are reviewed on the computer in the coronal plane. FINDINGS: Limited CT sections are obtained the lung bases. Right lower lobe lung consolidation is evident. Brooks e pleural thickening may be adjacent. Small left pleural effusion may be present. Finding is new fro m CT chest 05/30/2023. Correlate for pneumonia. CT ABDOMEN: Liver: Normal Spleen: Normal Pancreas: Normal Adrenal glands: The adrenal glands are normal. Gallbladder: Normal Kidneys: No masses are evident. No hydronephrosis is present. No cysts are present. Delayed images were obtained through the kidneys, which remain unremarkable. Aorta: Vascular calcification is within the aorta. Inferior vena cava: Normal. CT PELVIS: There is diffuse thickening of the colon from the distal ascending colon through the transverse colon extending through the descending colon into the sigmoid colon. Correlate for colitis. Consider ulcer ative colitis. Small bowel loops distended with oral contrast appear normal. Oral contrast extends to the distal small bowel loops. Some fecal debris is within the proximal colon. Appendix: Normal as visualized. Urinary bladder: Normal. Genitourinary structures: Uterus is not clearly identified. Adnexa are unremarkable Osseous structures: No suspicious lytic or sclerotic lesions. IMPRESSION: 1. Diffuse thickening with mild adjacent inflammatory changes through the colon. Correlate for colit is and ulcerative colitis. 2. Interval development of a right lower lobe consolidation. Correlate for pneumonia.
[2023-06-13] MEDS: QUEtiapine 400 MG TAB PO SCH (19:48)
[2023-06-13] MEDS: METOPROLOL SUCCINATE (ER) 50 MG TAB.ER.24H PO SCH (19:49)
[2023-06-14] MEDS: FORMOTEROL FUMARATE 20 MCG/2 ML NEBU INHALATION SCH ×2 (08:18→16:50)
[2023-06-14] MEDS: IPRATROPIUM-ALBUTEROL 3 ML NEB INHALATION SCH ×4 (08:18→16:49)
[2023-06-14] MEDS: FLUTICASONE 50MCG/SPRAY NASAL 16GM EA NOSTRIL SCH (10:40)
[2023-06-14] MEDS: metroNIDAZOLE 500 MG TAB PO SCH ×3 (10:41→20:57)
[2023-06-14] MEDS: LACTOBACILLUS ACIDOPHILUS/PECT 1 EACH CAPSULE PO SCH ×3 (10:41→20:57)
[2023-06-14] MEDS: LOPERAMIDE 2 MG CAP PO SCH ×4 (10:41→20:57)
[2023-06-14] MEDS: levETIRAcetam 500 MG TAB PO SCH ×2 (10:41→20:57)
[2023-06-14] MEDS: PANTOPRAZOLE 40 MG/10 ML VIAL IVP SCH (10:41)
[2023-06-14] MEDS: GABAPENTIN 300 MG CAP PO SCH ×3 (10:49→20:57)
--- NOTE | 2023-06-14 13:33 | P.PN ---
Subjective Progress Note Date: 06/14/23 63-year-old lady with past medical history significant for Atrial fibrillation, coronary artery disease, chest pain with angina, COPD, CVA/TIA, GERD, hyperlipidemia, hypertension, osteoarthritis, seizure disorder, Crohn's, anxiety/bipolar depression who presented to the ER because of nausea and vomiting last couple of days. Patient was discharged only a couple of days ago after being admitted for chest pain rule out. Patient stated that she has been noticing that she was having low appetite and started having nausea and vomiting. Patient also complaining of diarrhea. Patient has been complaining of loss of appetite and loss of weight for the last 5-6 months. Denies any chest pain. Denies any shortness of breath. Denies any fever or chills. Because of the symptoms, patient came to the ER Initial lab work done in the ER showed WBC 12.6, hemoglobin 11.5, platelet count 442, sodium 124, potassium 3.2, BUN 8, creatinine 0.47, glucose 109, lipase 366 Patient admitted to medicine service 06/06. Patient seen and examined. Electrolytes have improved. Patient is still stating that she is lethargic. Continues to have poor appetite 06/07. Patient seen and examined. Complaining of diarrhea and abdominal pain. 06/08. Patient seen and examined. Still having diarrhea. Stool for C. diff is negative, sodium is 133, potassium of 3.1 this morning 06/09. Patient seen and examined. Continues to complain of lethargy and weakn ess. Diarrhea has improved compared to yesterday. Denies Abdominal pain 06/10. Patient seen and examined. Diarrhea has improved. Blood work done this morning showed WBC 9.25, hemoglobin 8.9, sodium 134, potassium 3.9. States she still complaining of lethargy 06/11. Patient seen and examined. Encouraged patient to get out of bed and sit in the chair. Having been having low-grade fevers 06/12. Patient seen and examined. Chest x-ray and UA done, chest x-ray showed pneumonia. UA was SUSPICIOUS for UTI. Patient still having diarrhea. having low-grade fevers 06/13: Patient evaluated bedside, patient states she has nausea however breathing has improved, cough is improved diarrhea has improved 06/14: Patient seen and evaluated bedside, patient states abdominal pain is improved, diarrhea has improved. CT findings discussed with her. Continue IV antibiotics including Rocephin and Flagyl Objective - Vital Signs Vital signs: Vital Signs Temp 98.9 F 06/14/23 08:00 Pulse 80 06/14/23 08:00 Resp 20 06/14/23 08:00 BP 94/58 06/14/23 08:00 Pulse Ox 97 06/14/23 08:17 FiO2 Intake & Output 06/13/23 06/14/23 06/14/23 18:59 06:59 18:59 Intake Total 118 Balance 118 Weight 47.627 kg 47.627 kg Intake: Oral 118 Other: Voiding Method Diaper Diaper Diaper # Voids 2 # Bowel Movements 2 1 - Exam PHYSICAL EXAMINATION: GENERAL: The patient is alert and oriented x3, not in any acute distress. C hronically ill-looking HEENT: Pupils are round and equally reacting to light. EOMI. No scleral icterus. No conjunctival pallor. Normocephalic, atraumatic. No pharyngeal erythema. No thyromegaly. CARDIOVASCULAR: S1 and S2 present. No murmurs, rubs, or gallops. PULMONARY: Chest is clear to auscultation, no wheezing or crackles. ABDOMEN: Soft, nontender, nondistended, normoactive bowel sounds. No palpable organomegaly. MUSCULOSKELETAL: No joint swelling or deformity. EXTREMITIES: No cyanosis, clubbing, or pedal edema. NEUROLOGICAL: Gross neurological examination did not reveal any focal deficits. SKIN: No rashes. - Labs CBC & Chem 7: 06/13/23 05:37 06/13/23 05:37 Labs: Microbiology - Last 24 Hours (Table) 06/11/23 13:18 Urine Culture - Final Urine,Voided Enterobacter cloacae Escherichia coli Assessment and Plan Assessment: Assessment and plan * Urinary tract infection * Multifocal pneumonia * Diarrhea with acute colitis * Stage II pressure ulcer on sacrum present on admission * Protein calorie malnutrition * History of atrial fibrillation * Chronic hypoxic respiratory failure secondary to COPD * Hypertension * Hyperlipidemia * Seizure disorder * In regards to urinary tract infection continue patient on IV Rocephin and Flagyl, urine culture positive for gram-negative bacilli>> Enterobacter, E. coli * CT abdomen pelvis shows right lower lobe pneumonia and diffuse colitis * In regards to history of seizure disorder continue patient on Keppra * Patient does complain of diarrhea continue Lomotil, stool C. diff negative * In regards to history of atrial fibrillation continue patient on xarelto and metoprolol * Follow up on CBC and basic metabolic panel
[2023-06-14] MEDS: CEFEPIME 2 GM in SODIUM CHLORIDE 0.9% 100 ML IVPB SCH ×2 (17:06→23:52)
[2023-06-14] MEDS: RIVAROXABAN 20 MG TAB PO SCH (17:08)
[2023-06-14] MEDS: METOPROLOL SUCCINATE (ER) 50 MG TAB.ER.24H PO SCH (20:57)
[2023-06-14] MEDS: QUEtiapine 400 MG TAB PO SCH (20:57)
[2023-06-15] MEDS: PANTOPRAZOLE 40 MG TABLET PO SCH (06:33)
[2023-06-15] MEDS: IPRATROPIUM-ALBUTEROL 3 ML NEB INHALATION SCH ×4 (07:47→19:32)
[2023-06-15] MEDS: FORMOTEROL FUMARATE 20 MCG/2 ML NEBU INHALATION SCH ×2 (07:47→19:32)
[2023-06-15] MEDS: metroNIDAZOLE 500 MG TAB PO SCH ×3 (08:20→20:31)
[2023-06-15] MEDS: LOPERAMIDE 2 MG CAP PO SCH ×4 (08:20→20:32)
[2023-06-15] MEDS: GABAPENTIN 300 MG CAP PO SCH ×3 (08:21→20:32)
[2023-06-15] MEDS: FLUTICASONE 50MCG/SPRAY NASAL 16GM EA NOSTRIL SCH (08:21)
[2023-06-15] MEDS: LACTOBACILLUS ACIDOPHILUS/PECT 1 EACH CAPSULE PO SCH ×3 (08:21→20:32)
[2023-06-15] MEDS: CEFEPIME 2 GM in SODIUM CHLORIDE 0.9% 100 ML IVPB SCH ×3 (08:21→23:08)
[2023-06-15] MEDS: levETIRAcetam 500 MG TAB PO SCH ×2 (08:21→20:32)
--- NOTE | 2023-06-15 10:01 | P.PN ---
Subjective Progress Note Date: 06/13/23 Principal diagnosis: Fever/UTI Patient is a 63-year-old female with a past medical history significant for atrial fibrillation and coronary disease COPD CVA TIA hyperten adi hyperlipidemia presenting the hospital about a week before initial evaluation by myself for evaluation nausea vomiting and diarrhea, patient subsequent spiked a fever and did have abnormal UA and x-ray prompting this infectious disease consultation. On today's evaluation that is 06/13/2023 patient did have resolution of her fever with no fever today patient is breathing comfortably on 2 L nasal cannula oxygen patient denies having any chest pain or shortness with occasional cough still complaining of diarrhea and lower abdominal discomfort. Patient did have hemoglobin of 7.8 white count normalized to 7.96 creatinine 0.[address] was negative stool culture pending urine showing gram-negative Objective - Vital Signs Vital signs: Vital Signs Temp 98.3 F 06/13/23 07:59 Pulse 81 06/13/23 07:59 Resp 16 06/13/23 07:59 BP 87/50 06/13/23 07:59 Pulse Ox 97 06/13/23 07:59 FiO2 Intake & Output 06/12/23 06/13/23 06/13/23 18:59 06:59 18:59 Other: Voiding Method Toilet Diaper # Voids 2 - Exam GENERAL DESCRIPTION: Elderly female lying in bed in no distress RESPIRATORY SYSTEM: Unlabored breathing , decreased breath sounds at bases HEART: S1 S2 regular rate and rhythm ,no loud murmurs ABDOMEN: Soft , mild lower abdominal tenderness EXTREMITIES: No edema feet - Labs CBC & Chem 7: 06/13/23 05:37 06/13/23 05:37 Labs: Abnormal Lab Results - Last 24 Hours (Table) 06/13/23 06/13/23 Range/Units 05:37 05:37 RBC 2.99 L (4.10-5.20) X 10*6/uL Hgb 7.8 L (12.0-15.0) d/dL Hct 24.0 L (37.2-46.3) % MCH 26.1 L (27.0-32.0) pg RDW 16.2 H (11.5-14.5) % MPV 9.2 L (9.5-12.2) FL Monocytes # 1.26 H (0.20-1.00) X 10*3/uL Creatinine 0.3 L (0.6-1.5) mg/dL BUN/Creatinine Ratio 34.00 H (12.00-20.00) Ratio Calcium 7.9 L (8.7-10.3) mg/dL Total Bilirubin <0.2 L (0.3-1.2) mg/dL AST 12 L (13-35) U/L C-Reactive Protein 10.10 H (0.00-0.80) mg/dL Total Protein 4.5 L (6.2-8.2) d/dL Albumin 2.2 L (3.8-4.9) d/dL Albumin/Globulin Ratio 0.96 L (1.60-3.17) Ratio Assessment and Plan (1) Urinary tract infection Current Visit: No Status: Acute Code(s): N39.0 - URINARY TRACT INFECTION, SITE NOT SPECIFIED SNOMED Code(s): 02277887 Plan: 1patient with new fever elevated white count in this patient in the hospital for about a week with initially symptom of nausea vomiting and diarrhea I clinical suspicious for a C. difficile colitis the patient has had negative initial stool for C. difficile also have a positive UA concerning for possible UTI chest x-ray did show some effusion and atelectasis but the patient did not have significant cough or sputum production pneumonia less likely but not entirely excluded 2stool for C. difficile is negative stool cultures currently pending. 3CT of abdominal pelvis completed report is currently pending. 4we will continue the patient on Rocephin and Flagyl and monitor clinical course closely discussed with the admitting team Dictation was produced using [employer] dictation software. please excuse any grammatical, word or spelling errors.
[2023-06-15 10:22] LABS: HCT 26.6 % (34.0-46.0); HGB 8.3 gm/dL (11.4-16.0); Hypochromasia Slight; MCH 25.8 pg (25.0-35.0); MCHC 31.3 g/dL (31.0-37.0); MCV 82.4 fL (80.0-100.0); Mean Platelet Volume 7.3; Platelet Count 436 k/uL (150-450); RBC 3.23 m/uL (3.80-5.40); RDW 15.8 % (11.5-15.5); WBC 8.1 k/uL (3.8-10.6)
[2023-06-15] MEDS: SODIUM CHLORIDE 0.9% 1,000 ML IV SCH ×2 (10:25→23:08)
--- NOTE | 2023-06-15 10:25 | P.PN ---
Subjective Progress Note Date: 06/14/23 Principal diagnosis: Fever/UTI/colitis Patient is a 63-year-old female with a past medical history significant for atrial fibrillation and coronary disease COPD CVA TIA hypertension hyperlipidemia presenting the hospital about a week before initial evaluation by myself for evaluation nausea vomiting and diarrhea, patient subsequent spiked a fever and did have abnormal UA and x-ray prompting this infectious disease consultation. On today's evaluation that is 06/14/2023 patient remains to be afebrile, patient is breathing comfortably on 2 L nasal cannula oxygen patient denies having any chest pain or shortness with occasional, the patient did have mild dry cough still complaining of diarrhea and lower abdominal discomfort. Patient did have hemoglobin of 7.8 white count of 7.96 creatinine 0.3 as of 06/13/2023 no blood clot today stool for C. difficile was negative stool culture pending urine growing E. coli and Enterobacter that is resistant to the Rocephin, CT abdominal pelvis today shows diffuse colitis and right lower lobe pneumonia Objective - Vital Signs Vital signs: Vital Signs Temp 98.9 F 06/14/23 08:00 Pulse 80 06/14/23 08:00 Resp 20 06/14/23 08:00 BP 94/58 06/14/23 08:00 Pulse Ox 97 06/14/23 08:17 FiO2 Intake & Output 06/13/23 06/14/23 06/14/23 18:59 06:59 18:59 Intake Total 118 Balance 118 Weight 47.627 kg Intake: Oral 118 Other: Voiding Method Diaper Diaper # Voids 2 # Bowel Movements 2 1 - Exam GENERAL DESCRIPTION: Elderly female lying in bed in no distress RESPIRATORY SYSTEM: Unlabored breathing , decreased breath sounds at bases HEART: S1 S2 regular rate and rhythm ,no loud murmurs ABDOMEN: Soft , mild lower abdominal tenderness EXTREMITIES: No edema feet - Labs CBC & Chem 7: 06/15/23 09:36 06/13/23 05:37 Labs: Microbiology - Last 24 Hours (Table) 06/11/23 13:18 Urine Culture - Preliminary Urine,Voided Gram Neg Bacilli Assessment and Plan (1) Colitis Current Visit: Yes Status: Acute Code(s): K52.9 - NONINFECTIVE GASTROENTERITIS AND COLITIS, UNSPECIFIED SNOMED Code(s): 14861245 (2) Urinary tract infection Current Visit: No Status: Acute Code(s): N39.0 - URINARY TRACT INFECTION, SITE NOT SPECIFIED SNOMED Code(s): 56749251 Plan: 1patient with new fever elevated white count in this patient in the hospital for about a week with initially symptom of nausea vomiting and diarrhea I clinical suspicious for a C. difficile colitis the patient has had negative initial stool for C. difficile also have a positive UA concerning for possible UTI chest x-ray did show some effusion and atelectasis but the patient did not have significant cough or sputum production pneumonia less likely but not entirely excluded 2stool for C. difficile is negative stool cultures currently pending.Urine with e.coli and enterobacter 3CT of abdominal pelvis did show colitis and possible right lower lobe pneumonia 4we will discontinue her Rocephin, start the patient on cefepime and continue with oral Flagyl wait for the stool cultures to be finalized 5try to obtain a sputum and check a procalcitonin level Dictation was produced using [employer] dictation software. please excuse any grammatical, word or spelling errors.
[2023-06-15 10:48] LABS: African American GFR (CKD) >90 (>60 ml/min/1.73 sqM); Anion Gap 4 mmol/L; Blood Urea Nitrogen 10 mg/dL (7-17); C Reactive Protein 3.9 mg/dL (<1.0); Calcium 7.8 mg/dL (8.4-10.2); Carbon Dioxide 29 mmol/L (22-30); Chloride 97 mmol/L (98-107); Glucose 161 mg/dL (74-99); Non-African American GFR(CKD) >90 (>60 ml/min/1.73 sqM); Potassium 3.9 mmol/L (3.5-5.1); Sodium 130 mmol/L (137-145)
[2023-06-15] MEDS: HYDROcodone/APAP 5-325MG 1 EACH TAB PO PRN (12:06)
--- NOTE | 2023-06-15 13:35 | P.PN ---
Subjective Progress Note Date: 06/15/23 63-year-old lady with past medical history significant for Atrial fibrillation, coronary artery disease, chest pain with angina, COPD, CVA/TIA, GERD, hyperlipidemia, hypertension, osteoarthritis, seizure disorder, Crohn's, anxiety/bipolar depression who presented to the ER because of nausea and vomiting last couple of days. Patient was discharged only a couple of days ago after being admitted for chest pain rule out. Patient stated that she has been noticing that she was having low appetite and started having nausea and vomiting. Patient also complaining of diarrhea. Patient has been complaining of loss of appetite and loss of weight for the last 5-6 months. Denies any chest pain. Denies any shortness of breath. Denies any fever or chills. Because of the symptoms, patient came to the ER Initial lab work done in the ER showed WBC 12.6, hemoglobin 11.5, platelet count 442, sodium 124, potassium 3.2, BUN 8, creatinine 0.47, glucose 109, lipase 366 Patient admitted to medicine service 06/06. Patient seen and examined. Electrolytes have improved. Patient is still stating that she is lethargic. Continues to have poor appetite 06/07. Patient seen and examined. Complaining of diarrhea and abdominal pain. 06/08. Patient seen and examined. Still having diarrhea. Stool for C. diff is negative, sodium is 133, potassium of 3.1 this morning 06/09. Patient seen and examined. Continues to complain of lethargy and weakness . Diarrhea has improved compared to yesterday. Denies Abdominal pain 06/10. Patient seen and examined. Diarrhea has improved. Blood work done this morning showed WBC 9.25, hemoglobin 8.9, sodium 134, potassium 3.9. States she still complaining of lethargy 06/11. Patient seen and examined. Encouraged patient to get out of bed and sit in the chair. Having been having low-grade fevers 06/12. Patient seen and examined. Chest x-ray and UA done, chest x-ray showed pneumonia. UA was SUSPICIOUS for UTI. Patient still having diarrhea. having low-grade fevers Dr Vaughn Assumed care 06/13: Patient evaluated bedside, patient states she has nausea however breathing has improved, cough is improved diarrhea has improved 06/14: Patient seen and evaluated bedside, patient states abdominal pain is imp roved, diarrhea has improved. CT findings discussed with her. Continue IV antibiotics including Rocephin and Flagyl 06/15: Patient seen and evaluated bedside. Due to worsening leukocytosis and CT finding patient transitioned to IV cefepime due to right lower lobe pneumonia. Oral Flagyl continued. Patient started on fluids secondary to episode of hypotension Objective - Vital Signs Vital signs: Vital Signs Temp 98.2 F 06/15/23 08:00 Pulse 84 06/15/23 08:00 Resp 16 06/15/23 08:00 BP 92/59 06/15/23 08:00 Pulse Ox 100 06/15/23 08:00 FiO2 Intake & Output 06/14/23 06/15/23 06/15/23 18:59 06:59 18:59 Intake Total 300 Output Total 1 Balance 299 Weight 47.627 kg Intake: Oral 300 Output: Stool 1 Other: Voiding Method Diaper Diaper Diaper # Voids 1 2 # Bowel Movements 2 - Exam PHYSICAL EXAMINATION: GENERAL: The patient is alert and oriented x3, not in any acute distress. Chronically ill-looking HEENT: Pupils are round and equally reacting to light. EOMI. No scleral icterus. No conjunctival pallor. Normocephalic, atraumatic. No pharyngeal erythema. No thyromegaly. CARDIOVASCULAR: S1 and S2 present. No murmurs, rubs, or gallops. PULMONARY: Chest is clear to auscultation, no wheezing or crackles. ABDOMEN: Soft, nontender, nondistended, normoactive bowel sounds. No palpable organomegaly. MUSCULOSKELETAL: No joint swelling or deformity. EXTREMITIES: No cyanosis, clubbing, or pedal edema. NEUROLOGICAL: Gross neurological examination did not reveal any focal deficits. SKIN: No rashes. - Labs CBC & Chem 7: 06/15/23 09:36 06/15/23 09:36 Labs: Abnormal Lab Results - Last 24 Hours (Table) 06/15/23 06/15/23 Range/Units : 09:36 RBC 3.23 L (3.80-5.40) m/uL Hgb 8.3 L (11.4-16.0) gm/dL Hct 26.6 L (34.0-46.0) % RDW 15.8 H (11.5-15.5) % Sodium 130 L (137-145) mmol/L Chloride 97 L (98-107) mmol/L Creatinine 0.38 L (0.52-1.04) mg/dL Glucose 161 H (74-99) mg/dL Calcium 7.8 L (8.4-10.2) mg/dL C-Reactive Protein 3.9 H (<1.0) mg/dL Microbiology - Last 24 Hours (Table) 06/12/23 11:08 Stool Culture - Preliminary Stool 06/11/23 13:18 Urine Culture - Final Urine,Voided Enterobacter cloacae Escherichia coli Assessment and Plan Assessment: Assessment and plan * Urinary tract infection * Multifocal pneumonia * Diarrhea with acute colitis * Stage II pressure ulcer on sacrum present on admission * Protein calorie malnutrition * History of atrial fibrillation * Chronic hypoxic respiratory failure secondary to COPD * Hypertension * Hyperlipidemia * Seizure disorder * In regards to urinary tract infection , patient was on Rocephin and Flagyl, escalated to cefepime and Flagyl, urine culture positive for gram-negative bacilli>> Enterobacter, E. coli * CT abdomen pelvis shows right lower lobe pneumonia and diffuse colitis, continue cefepime and Flagyl * In regards to history of seizure disorder continue patient on Keppra * Patient does complain of diarrhea continue Lomotil, stool C. diff negative * In regards to history of atrial fibrillation continue patient on xarelto and metoprolol * Follow up on CBC and basic metabolic panel
[2023-06-15] MEDS: RIVAROXABAN 20 MG TAB PO SCH (17:11)
--- NOTE | 2023-06-15 18:21 | P.PN ---
Subjective Progress Note Date: 06/15/23 Principal diagnosis: Fever/UTI/colitis Patient is a 63-year-old female with a past medical history significant for atrial fibrillation and coronary disease COPD CVA TIA hypertension hyperlipidemia presenting the hospital about a week before initial evaluation by myself for evaluation nausea vomiting and diarrhea, patient subsequent spiked a fever and did have abnormal UA and x-ray prompting this infectious disease consultation. On today's evaluation that is 06/15/2023, the patient remains to be afebrile, the patient is breathing comfortably, the patient denies chest pain shortness of breath patient did have some cough not bringing up any sputum no nausea no vo miting no bone pain secondary of diarrhea Patient did have hemoglobin of 8.3 white count of 8.1 creatinine 0.38, stool for C. difficile was negative stool culture pending urine growing E. coli and En terobacter that is resistant to the Rocephin, CT abdominal pelvis today shows diffuse colitis and right lower lobe pneumonia Objective - Vital Signs Vital signs: Vital Signs Temp 98.2 F 06/15/23 08:00 Pulse 84 06/15/23 08:00 Resp 16 06/15/23 08:00 BP 92/59 06/15/23 08:00 Pulse Ox 100 06/15/23 08:00 FiO2 Intake & Output 06/14/23 06/15/23 06/15/23 18:59 06:59 18:59 Intake Total 300 Output Total 1 Balance 299 Weight 47.627 kg Intake: Oral 300 Output: Stool 1 Other: Voiding Method Diaper Diaper Diaper # Voids 1 2 # Bowel Movements 2 - Exam GENERAL DESCRIPTION: Elderly female lying in bed in no distress RESPIRATORY SYSTEM: Unlabored breathing , decreased breath sounds at bases HEART: S1 S2 regular rate and rhythm ,no loud murmurs ABDOMEN: Soft , mild lower abdominal tenderness EXTREMITIES: No edema feet - Labs CBC & Chem 7: 06/15/23 09:36 06/15/23 09:36 Labs: Abnormal Lab Results - Last 24 Hours (Table) 06/15/23 06/15/23 Range/Units 09:36 09:36 RBC 3.23 L (3.80-5.40) m/uL Hgb 8.3 L (11.4-16.0) gm/dL Hct 26.6 L (34.0-46.0) % RDW 15.8 H (11.5-15.5) % Sodium 130 L (137-145) mmol/L Chloride 97 L (98-107) mmol/L Creatinine 0.38 L (0.52-1.04) mg/dL Glucose 161 H (74-99) mg/dL Calcium 7.8 L (8.4-10.2) mg/dL C-Reactive Protein 3.9 H (<1.0) mg/dL Microbiology - Last 24 Hours (Table) 06/12/23 11:08 Stool Culture - Preliminary Stool 06/11/23 13:18 Urine Culture - Final Urine,Voided Enterobacter cloacae Escherichia coli Assessment and Plan (1) Colitis Current Visit: Yes Status: Acute Code(s): K52.9 - NONINFECTIVE GASTROENTERITIS AND COLITIS, UNSPECIFIED SNOMED Code(s): 04492069 (2) Urinary tract infection Current Visit: No Status: Acute Code(s): N39.0 - URINARY TRACT INFECTION, SITE NOT SPECIFIED SNOMED Code(s): 36132865 Plan: 1patient with new fever elevated white count in this patient in the hospital for about a week with initially symptom of nausea vomiting and diarrhea I clinical suspicious for a C. difficile colitis the patient has had negative initial stool for C. difficile also have a positive UA concerning for possible UTI chest x-ray did show some effusion and atelectasis but the patient did not have significant cough or sputum production pneumonia less likely but not entirely excluded 2stool for C. difficile is negative stool cultures currently pending.Urine with e.coli and enterobacter 3CT of abdominal pelvis did show colitis and possible right lower lobe pneumonia 4patient to continue with cefepime and oral Flagyl, we will add Questran for symptomatic relief of her diarrhea 5try to obtain a sputum and check a procalcitonin level Dictation was produced using [employer] dictation software. please excuse any grammatical, word or spelling errors. Time with Patient: Less than 30
[2023-06-15] MEDS: CHOLESTYRAMINE (WITH SUGAR) 4 GM PACKET PO SCH (20:32)
[2023-06-15] MEDS: ONDANSETRON 4 MG/2 ML VIAL IVP PRN (20:32)
[2023-06-15] MEDS: METOPROLOL SUCCINATE (ER) 50 MG TAB.ER.24H PO SCH (20:32)
[2023-06-15] MEDS: QUEtiapine 400 MG TAB PO SCH (20:32)
[2023-06-16] MEDS: PANTOPRAZOLE 40 MG TABLET PO SCH (06:39)
[2023-06-16] MEDS: CEFEPIME 2 GM in SODIUM CHLORIDE 0.9% 100 ML IVPB SCH ×3 (08:06→23:41)
[2023-06-16] MEDS: FLUTICASONE 50MCG/SPRAY NASAL 16GM EA NOSTRIL SCH (08:07)
[2023-06-16] MEDS: levETIRAcetam 500 MG TAB PO SCH ×2 (08:07→20:24)
[2023-06-16] MEDS: metroNIDAZOLE 500 MG TAB PO SCH ×3 (08:07→20:24)
[2023-06-16] MEDS: LOPERAMIDE 2 MG CAP PO SCH ×4 (08:07→20:25)
[2023-06-16] MEDS: LACTOBACILLUS ACIDOPHILUS/PECT 1 EACH CAPSULE PO SCH ×3 (08:07→20:24)
[2023-06-16] MEDS: GABAPENTIN 300 MG CAP PO SCH ×3 (08:07→20:24)
[2023-06-16] MEDS: CHOLESTYRAMINE (WITH SUGAR) 4 GM PACKET PO SCH ×2 (08:08→20:24)
[2023-06-16] MEDS: FORMOTEROL FUMARATE 20 MCG/2 ML NEBU INHALATION SCH ×2 (08:49→20:41)
[2023-06-16] MEDS: IPRATROPIUM-ALBUTEROL 3 ML NEB INHALATION SCH ×4 (08:49→20:41)
[2023-06-16 09:22] LABS: Basophils # (A) 0.04 X 10*3/uL (0.00-0.10); Basophils % (A) 0.6 %; Eosinophils # (A) 0.29 X 10*3/uL (0.04-0.35); Eosinophils % (A) 4.1 %; HCT 24.4 % (37.2-46.3); HGB 7.6 d/dL (12.0-15.0); Lymphocytes # (A) 2.01 X 10*3/uL (0.90-5.00); Lymphocytes % (A) 28.7 %; MCH 25.3 pg (27.0-32.0); MCHC 31.1 d/dL (32.0-37.0); MCV 81.3 FL (80.0-97.0); Mean Platelet Volume 8.6 FL (9.5-12.2); Monocytes # (A) 0.68 X 10*3/uL (0.20-1.00); Monocytes % (A) 9.7 %; NRBC Per 100 WBC 0 X 10*3/uL (0.00-0.01); Neutrophils # (A) 3.94 X 10*3/uL (1.80-7.70); Neutrophils % (A) 56.3 %; Platelet Count 410 X 10*3/uL (140-440)
[2023-06-16 09:46] LABS: ALT 8 U/L (8-44); AST 13 U/L (13-35); Albumin 2.2 d/dL (3.8-4.9); Albumin/Globulin Ratio 1.05 Ratio (1.60-3.17); Alkaline Phosphatase 49 U/L (41-126); BUN/Creat Ratio 25.25 Ratio (12.00-20.00); Blood Urea Nitrogen 10.1 mg/dL (9.0-27.0); Calcium 8.2 mg/dL (8.7-10.3); Carbon Dioxide 29.5 mmol/L (21.6-31.8); Chloride 102 mmol/L (96-109); Globulin 2.1 d/dL (1.6-3.3); Glucose 81 mg/dL (70-110); Potassium 4.2 mmol/L (3.5-5.5); Sodium 137 mmol/L (135-145); Total Bilirubin <0.2 mg/dL (0.3-1.2); Total Protein 4.3 d/dL (6.2-8.2)
[2023-06-16] MEDS: SODIUM CHLORIDE 0.9% 1,000 ML IV SCH (10:51)
--- NOTE | 2023-06-16 12:28 | P.PN ---
Subjective Progress Note Date: 06/16/23 63-year-old lady with past medical history significant for Atrial fibrillation, coronary artery disease, chest pain with angina, COPD, CVA/TIA, GERD, hyperlipidemia, hypertension, osteoarthritis, seizure disorder, Crohn's, anxiety/bipolar depression who presented to the ER because of nausea and vomiting last couple of days. Patient was discharged only a couple of days ago after being admitted for chest pain rule out. Patient stated that she has been noticing that she was having low appetite and started having nausea and vomiting. Patient also complaining of diarrhea. Patient has been complaining of loss of appetite and loss of weight for the last 5-6 months. Denies any chest pain. Denies any shortness of breath. Denies any fever or chills. Because of the symptoms, patient came to the ER Initial lab work done in the ER showed WBC 12.6, hemoglobin 11.5, platelet count 442, sodium 124, potassium 3.2, BUN 8, creatinine 0.47, glucose 109, lipase 366 Patient admitted to medicine service 06/06. Patient seen and examined. Electrolytes have improved. Patient is still stating that she is lethargic. Continues to have poor appetite 06/07. Patient seen and examined. Complaining of diarrhea and abdominal pain. 06/08. Patient seen and examined. Still having diarrhea. Stool for C. diff is negative, sodium is 133, potassium of 3.1 this morning 06/09. Patient seen and examined. Continues to complain of lethargy and weakness . Diarrhea has improved compared to yesterday. Denies Abdominal pain 06/10. Patient seen and examined. Diarrhea has improved. Blood work done this morning showed WBC 9.25, hemoglobin 8.9, sodium 134, potassium 3.9. States she still complaining of lethargy 06/11. Patient seen and examined. Encouraged patient to get out of bed and sit in the chair. Having been having low-grade fevers 06/12. Patient seen and examined. Chest x-ray and UA done, chest x-ray showed pneumonia. UA was SUSPICIOUS for UTI. Patient still having diarrhea. having low-grade fevers Dr Vaughn Assumed care 06/13: Patient evaluated bedside, patient states she has nausea however breathing has improved, cough is improved diarrhea has improved 06/14: Patient seen and evaluated bedside, patient states abdominal pain is imp roved, diarrhea has improved. CT findings discussed with her. Continue IV antibiotics including Rocephin and Flagyl 06/15: Patient seen and evaluated bedside. Due to worsening leukocytosis and CT finding patient transitioned to IV cefepime due to right lower lobe pneumonia. Oral Flagyl continued. Patient started on fluids secondary to episode of hypotension 06/16: Patient seen and evaluated bedside, care plan discussed with patient patient encouraged to ambulate. Plan to discharge to rehab once a day. He continued antibiotic management infectious disease on cefepime. Vancomycin has already been discontinued. Continue oral Flagyl Objective - Vital Signs Vital signs: Vital Signs Temp 98.3 F 06/15/23 19:30 Pulse 90 06/15/23 20:32 Resp 14 06/15/23 19:30 BP 104/62 06/15/23 19:30 Pulse Ox 99 06/15/23 19:30 FiO2 Intake & Output 06/15/23 06/15/23 06/16/23 06:59 18:59 06:59 Intake Total 537 Output Total 1 Balance 536 Intake: Oral 537 Output: Stool 1 Other: Voiding Method Diaper Diaper Diaper # Voids 2 1 # Bowel Movements 2 - Exam PHYSICAL EXAMINATION: GENERAL: The patient is alert and oriented x3, not in any acute distress. Chronically ill-looking HEENT: Pupils are round and equally reacting to light. EOMI. No scleral icterus. No conjunctival pallor. Normocephalic, atraumatic. No pharyngeal erythema. No thyromegaly. CARDIOVASCULAR: S1 and S2 present. No murmurs, rubs, or gallops. PULMONARY: Chest is clear to auscultation, no wheezing or crackles. ABDOMEN: Soft, nontender, nondistended, normoactive bowel sounds. No palpable organomegaly. MUSCULOSKELETAL: No joint swelling or deformity. EXTREMITIES: No cyanosis, clubbing, or pedal edema. NEUROLOGICAL: Gross neurological examination did not reveal any focal deficits. SKIN: No rashes. - Labs CBC & Chem 7: 06/16/23 06:25 06/16/23 06:25 Labs: Abnormal Lab Results - Last 24 Hours (Table) 06/15/23 06/15/23 Range/Units 09:36 09:36 RBC 3.23 L (3.80-5.40) m/uL Hgb 8.3 L (11.4-16.0) gm/dL Hct 26.6 L (34.0-46.0) % RDW 15.8 H (11.5-15.5) % Sodium 130 L (137-145) mmol/L Chloride 97 L (98-107) mmol/L Creatinine 0.38 L (0.52-1.04) mg/dL Glucose 161 H (74-99) mg/dL Calcium 7.8 L (8.4-10.2) mg/dL C-Reactive Protein 3.9 H (<1.0) mg/dL Microbiology - Last 24 Hours (Table) 06/12/23 11:08 Stool Culture - Final Stool Assessment and Plan Assessment: Assessment and plan * Urinary tract infection Enterobacter & Ecoli * Multifocal pneumonia * Diarrhea with acute colitis * Stage II pressure ulcer on sacrum present on admission * Protein calorie malnutrition * History of atrial fibrillation * Chronic hypoxic respiratory failure secondary to COPD * Hypertension * Hyperlipidemia * Seizure disorder * In regards to urinary tract infection , patient was on Rocephin and Flagyl, escalated to cefepime and Flagyl, urine culture positive for gram-negative bacilli>> Enterobacter, E. coli * For Pneumonia CT abdomen pelvis shows right lower lobe pneumonia and diffuse colitis, continue cefepime and Flagyl per ID , Sputum cultures ordered , CRP trend down 10> 3 * In regards to history of seizure disorder continue patient on Keppra * Patient does complain of diarrhea continue Lomotil, stool C. diff negative, Questran started * In regards to history of atrial fibrillation continue patient on xarelto and metoprolol * Follow up on CBC and basic metabolic panel * discharge to subacute rehab within the next 24-48 hours
--- NOTE | 2023-06-16 16:20 | P.PN ---
Subjective Progress Note Date: 06/16/23 Principal diagnosis: Fever/UTI/colitis Patient is a 63-year-old female with a past medical history significant for atrial fibrillation and coronary disease COPD CVA TIA hypertension hyperlipidemia presenting the hospital about a week before initial evaluation by myself for evaluation nausea vomiting and diarrhea, patient subsequent spiked a fever and did have abnormal UA and x-ray prompting this infectious disease consultation. On today's evaluation that is 06/16/2023, the patient continues to be afebrile, the patient is breathing comfortably on 3 L nasal cannula oxygen, the patient denies any shortness of breath no chest pain the patient did have a cough with occasional sputum production, the patient denies having any nausea and vomiting no abdominal pain and diarrhea has slowed down Patient did have hemoglobin of 7.6, white count is 7.0, creatinine 0.4, stool for C. difficile was negative stool culture pending urine growing E. coli and Enterobacter that is resistant to the Rocephin, CT abdominal pelvis today shows diffuse colitis and right lower lobe pneumonia Objective - Vital Signs Vital signs: Vital Signs Temp 98.1 F 06/16/23 07:45 Pulse 82 06/16/23 12:12 Resp 16 06/16/23 07:45 BP 111/72 06/16/23 07:45 Pulse Ox 98 06/16/23 08:48 FiO2 Intake & Output 06/15/23 06/16/23 06/16/23 18:59 06:59 18:59 Intake Total 537 Output Total 1 1 Balance 536 -1 Intake: Oral 537 Output: Stool 1 1 Other: Voiding Method Diaper Diaper Diaper # Voids 1 # Bowel Movements 2 - Exam GENERAL DESCRIPTION: Elderly female lying in bed in no distress RESPIRATORY SYSTEM: Unlabored breathing , decreased breath sounds at bases HEART: S1 S2 regular rate and rhythm ,no loud murmurs ABDOMEN: Soft , mild lower abdominal tenderness EXTREMITIES: No edema feet - Labs CBC & Chem 7: 06/16/23 06:25 06/16/23 06:25 Labs: Abnormal Lab Results - Last 24 Hours (Table) 06/16/23 06/16/23 Range/Units 06:25 06:25 RBC 3.00 L (4.10-5.20) X 10*6/uL Hgb 7.6 L (12.0-15.0) d/dL Hct 24.4 L (37.2-46.3) % MCH 25.3 L (27.0-32.0) pg MCHC 31.1 L (32.0-37.0) d/dL RDW 16.0 H (11.5-14.5) % MPV 8.6 L (9.5-12.2) FL Creatinine 0.4 L (0.6-1.5) mg/dL BUN/Creatinine Ratio 25.25 H (12.00-20.00) Ratio Calcium 8.2 L (8.7-10.3) mg/dL Total Bilirubin <0.2 L (0.3-1.2) mg/dL Total Protein 4.3 L (6.2-8.2) d/dL Albumin 2.2 L (3.8-4.9) d/dL Albumin/Globulin Ratio 1.05 L (1.60-3.17) Ratio Microbiology - Last 24 Hours (Table) 06/12/23 11:08 Stool Culture - Final Stool Assessment and Plan (1) Colitis Current Visit: Yes Status: Acute Code(s): K52.9 - NONINFECTIVE GASTROENTERITIS AND COLITIS, UNSPECIFIED SNOMED Code(s): 14506521 (2) Urinary tract infection Current Visit: No Status: Acute Code(s): N39.0 - URINARY TRACT INFECTION, SITE NOT SPECIFIED SNOMED Code(s): 06181882 Plan: 1patient with new fever elevated white count in this patient in the hospital for about a week with initially symptom of nausea vomiting and diarrhea I clinical suspicious for a C. difficile colitis the patient has had negative initial stool for C. difficile also have a positive UA concerning for possible UTI chest x-ray did show some effusion and atelectasis but the patient did not have significant cough or sputum production pneumonia less likely but not entirely excluded 2stool for C. difficile is negative stool cultures currently pending.Urine with e.coli and enterobacter 3CT of abdominal pelvis did show colitis and possible right lower lobe pneumonia 4patient to continue with cefepime and oral Flagyl along with Questran for symptomatic relief of her diarrhea, did seem to be helping Dictation was produced using [employer] dictation software. please excuse any grammatical, word or spelling errors. Time with Patient: Less than 30
[2023-06-16] MEDS: RIVAROXABAN 20 MG TAB PO SCH (17:20)
[2023-06-16] MEDS: METOPROLOL SUCCINATE (ER) 50 MG TAB.ER.24H PO SCH (20:24)
[2023-06-16] MEDS: QUEtiapine 400 MG TAB PO SCH (20:24)
[2023-06-17] MEDS: PANTOPRAZOLE 40 MG TABLET PO SCH (06:14)
[2023-06-17] MEDS: IPRATROPIUM-ALBUTEROL 3 ML NEB INHALATION SCH ×4 (08:29→20:17)
[2023-06-17] MEDS: FORMOTEROL FUMARATE 20 MCG/2 ML NEBU INHALATION SCH ×2 (08:29→20:17)
[2023-06-17] MEDS: LACTOBACILLUS ACIDOPHILUS/PECT 1 EACH CAPSULE PO SCH ×3 (08:34→20:34)
[2023-06-17] MEDS: metroNIDAZOLE 500 MG TAB PO SCH ×3 (08:34→20:34)
[2023-06-17] MEDS: CEFEPIME 2 GM in SODIUM CHLORIDE 0.9% 100 ML IVPB SCH ×2 (08:34→17:36)
[2023-06-17] MEDS: LOPERAMIDE 2 MG CAP PO SCH ×4 (08:34→20:34)
[2023-06-17] MEDS: levETIRAcetam 500 MG TAB PO SCH ×2 (08:35→20:34)
[2023-06-17 08:38] LABS: HCT 24.5 % (37.2-46.3); HGB 7.5 d/dL (12.0-15.0); MCH 24.8 pg (27.0-32.0); MCHC 30.6 d/dL (32.0-37.0); MCV 81.1 FL (80.0-97.0); Mean Platelet Volume 8.8 FL (9.5-12.2); NRBC Per 100 WBC 0 X 10*3/uL (0.00-0.01); Platelet Count 379 X 10*3/uL (140-440); RBC 3.02 X 10*6/uL (4.10-5.20); RDW 16.1 % (11.5-14.5)
[2023-06-17 08:52] LABS: Blood Urea Nitrogen 9.4 mg/dL (9.0-27.0); Carbon Dioxide 28.4 mmol/L (21.6-31.8); Chloride 101 mmol/L (96-109); Glucose 89 mg/dL (70-110); Potassium 4.3 mmol/L (3.5-5.5); Sodium 136 mmol/L (135-145)
[2023-06-17] MEDS: GABAPENTIN 300 MG CAP PO SCH ×3 (12:03→20:34)
[2023-06-17] MEDS: SODIUM CHLORIDE 0.9% 1,000 ML IV SCH ×2 (12:05→17:41)
[2023-06-17] MEDS: CHOLESTYRAMINE (WITH SUGAR) 4 GM PACKET PO SCH ×2 (12:05→18:10)
[2023-06-17] MEDS: FLUTICASONE 50MCG/SPRAY NASAL 16GM EA NOSTRIL SCH (12:05)
--- NOTE | 2023-06-17 13:58 | P.PN ---
Subjective Progress Note Date: 06/17/23 patient is a 63-year-old lady with past medical history significant for Atrial fibrillation, coronary artery disease, chest pain with angina, COPD, CVA/TIA, GERD, hyperlipidemia, hypertension, osteoarthritis, seizure disorder, Crohn's, anxiety/bipolar depression who presented to the ER because of nausea and vomiting last couple of days. Patient was discharged only a couple of days ago after being admitted for chest pain rule out. Patient stated that she has been noticing that she was having low appetite and started having nausea and vomiting. Patient also complaining of diarrhea. Patient has been complaining of loss of appetite and loss of weight for the last 5-6 months. Denies any chest pain. Denies any shortness of breath. Denies any fever or chills. Lona use of the symptoms, patient came to the ER Initial lab work done in the ER showed WBC 12.6, hemoglobin 11.5, platelet count 442, sodium 124, potassium 3.2, BUN 8, creatinine 0.47, glucose 109, lipase 366 Patient admitted to medicine service 06/06. Patient seen and examined. Electrolytes have improved. Patient is still stating that she is lethargic. Continues to have poor appetite 06/07. Patient seen and examined. Complaining of diarrhea and abdominal pain. 06/08. Patient seen and examined. Still having diarrhea. Stool for C. diff is negative, sodium is 133, potassium of 3.1 this morning 06/09. Patient seen and examined. Continues to complain of lethargy and weakness. Diarrhea has improved compared to yesterday. Denies Abdominal pain 06/10. Patient seen and examined. Diarrhea has improved. Blood work done this morning showed WBC 9.25, hemoglobin 8.9, sodium 134, potassium 3.9. States she still complaining of lethargy 06/11. Patient seen and examined. Encouraged patient to get out of bed and sit in the chair. Having been having low-grade fevers 06/12. Patient seen and examined. Chest x-ray and UA done, chest x-ray showed pneumonia. UA was SUSPICIOUS for UTI. Patient still having diarrhea. having low-grade fevers 06/13: Patient evaluated bedside, patient states she has nausea however breathing has improved, cough is improved diarrhea has improved 06/14: Patient seen and evaluated bedside, patient states abdominal pain is improved, diarrhea has improved. CT findings discussed with her. Continue IV antibiotics including Rocephin and Flagyl 06/15: Patient seen and evaluated bedside. Due to worsening leukocytosis and CT finding patient transitioned to IV cefepime due to right lower lobe pneumonia. Oral Flagyl continued. Patient started on fluids secondary to episode of hypotension 06/16: Patient seen and evaluated bedside, care plan discussed with patient patient encouraged to ambulate. Plan to discharge to rehab once a day. He continued antibiotic management infectious disease on cefepime. Vancomycin has already been discontinued. Continue oral Flagyl 06/17. Patient seen and examined. States she feels better today. Diarrhea has slowed down. Denies any lightheadedness or dizziness REVIEW OF SYSTEMS: CONSTITUTIONAL: As mentioned in HPI CARDIOVASCULAR: No chest pain, no palpitations, no syncope. PULMONARY: No shortness of breath, no cough, GASTROINTESTINAL: As mentioned above NEUROLOGICAL: No headaches, no weakness, PHYSICAL EXAMINATION: GENERAL: The patient is alert and oriented x3, not in any acute distress. Chronically ill-looking HEENT: Pupils are round and equally reacting to light. EOMI. No scleral icterus. No conjunctival pallor. Normocephalic, atraumatic. No pharyngeal erythema. No thyromegaly. CARDIOVASCULAR: S1 and S2 present. No murmurs, rubs, or gallops. PULMONARY: Chest is clear to auscultation, no wheezing or crackles. ABDOMEN: Soft, nontender, nondistended, normoactive bowel sounds. No palpable organomegaly. MUSCULOSKELETAL: No joint swelling or deformity. EXTREMITIES: No cyanosis, clubbing, or pedal edema. NEUROLOGICAL: Gross neurological examination did not reveal any focal deficits. SKIN: No rashes. Assessment and plan * Urinary tract infection Enterobacter & Ecoli * Multifocal pneumonia * Diarrhea with acute colitis * Stage II pressure ulcer on sacrum present on admission * Protein calorie malnutrition * History of atrial fibrillation * Chronic hypoxic respiratory failure secondary to COPD * Hypertension * Hyperlipidemia * Seizure disorder Monitor vital signs Monitor CBC Monitor CMP CT abdomen pelvis shows right lower lobe pneumonia and diffuse colitis, continue cefepime and Flagyl per ID Continue lactobacillus, Imodium Continue Keppra Continue Xarelto Continue home meds Continue wound care per wound care team PT and OT recommended rehab Labs and medication were reviewed.. Continue same treatment. Continue with symptomatic treatment. Resume home medication. Monitor labs and vitals. DVT and GI prophylaxis. Further recommendations as per clinical course of the patient Dictation was produced using [employer] dictation software. please excuse any grammatical, word or spelling errors. Objective - Vital Signs Vital signs: Vital Signs Temp 98.5 F 06/17/23 08:00 Pulse 83 06/17/23 08:00 Resp 16 06/17/23 08:00 BP 105/65 06/17/23 08:00 Pulse Ox 100 06/17/23 08:00 FiO2 Intake & Output 06/16/23 06/17/23 06/17/23 18:59 06:59 18:59 Output Total 1 1 Balance -1 -1 Output: Stool 1 1 Other: Voiding Method Diaper Diaper Diaper Incontinent Incontinent # Voids 1 3 1 # Bowel Movements 2 1 - Labs CBC & Chem 7: 06/17/23 05:49 06/17/23 05:49 Labs: Abnormal Lab Results - Last 24 Hours (Table) 06/17/23 06/17/23 Range/Units 05:49 05:49 RBC 3.02 L (4.10-5.20) X 10*6/uL Hgb 7.5 L (12.0-15.0) d/dL Hct 24.5 L (37.2-46.3) % MCH 24.8 L (27.0-32.0) pg MCHC 30.6 L (32.0-37.0) d/dL RDW 16.1 H (11.5-14.5) % MPV 8.8 L (9.5-12.2) FL Creatinine 0.4 L (0.6-1.5) mg/dL BUN/Creatinine Ratio 23.50 H (12.00-20.00) Ratio Calcium 8.0 L (8.7-10.3) mg/dL
[2023-06-17] MEDS: HYDROcodone/APAP 5-325MG 1 EACH TAB PO PRN (14:51)
[2023-06-17] MEDS: RIVAROXABAN 20 MG TAB PO SCH (17:41)
[2023-06-17] MEDS: HYDROmorphone 0.5 MG/0.5 ML SYRINGE IVP PRN (18:09)
--- NOTE | 2023-06-17 18:10 | P.PN ---
Subjective Progress Note Date: 06/17/23 Principal diagnosis: Fever/UTI/colitis Patient is a 63-year-old female with a past medical history significant for atrial fibrillation and coronary disease COPD CVA TIA hypertension hyperlipidemia presenting the hospital about a week before initial evaluation by myself for evaluation nausea vomiting and diarrhea, patient subsequent spiked a fever and did have abnormal UA and x-ray prompting this infectious disease consultation. On today's evaluation that is 06/17/2023, the patient remains to be afebrile, the patient is breathing comfortably 3 L , the patient denies having any chest pain the patient cough is decreased intensity, the patient denies nausea and v omiting no abdominal pain and diarrhea has decreased Patient did have hemoglobin of 7.5, white count is 7.10, creatinine 0.4, stool for C. difficile was negative stool culture pending urine growing E. coli and Enterobacter that is resistant to the Rocephin, CT abdominal pelvis today shows diffuse colitis and right lower lobe pneumonia Objective - Vital Signs Vital signs: Vital Signs Temp 98.5 F 06/17/23 08:00 Pulse 80 06/17/23 12:47 Resp 16 06/17/23 08:00 BP 105/65 06/17/23 08:00 Pulse Ox 100 06/17/23 08:00 FiO2 Intake & Output 06/16/23 06/17/23 06/17/23 18:59 06:59 18:59 Output Total 1 1 Balance -1 -1 Output: Stool 1 1 Other: Voiding Method Diaper Diaper Diaper Incontinent Incontinent # Voids 1 3 1 # Bowel Movements 2 1 - Exam GENERAL DESCRIPTION: Elderly female lying in bed in no distress RESPIRATORY SYSTEM: Unlabored breathing , decreased breath sounds at bases HEART: S1 S2 regular rate and rhythm ,no loud murmurs ABDOMEN: Soft , mild lower abdominal tenderness EXTREMITIES: No edema feet - Labs CBC & Chem 7: 06/17/23 05:49 06/17/23 05:49 Labs: Abnormal Lab Results - Last 24 Hours (Table) 06/17/23 06/17/23 Range/Units 05:49 05:49 RBC 3.02 L (4.10-5.20) X 10*6/uL Hgb 7.5 L (12.0-15.0) d/dL Hct 24.5 L (37.2-46.3) % MCH 24.8 L (27.0-32.0) pg MCHC 30.6 L (32.0-37.0) d/dL RDW 16.1 H (11.5-14.5) % MPV 8.8 L (9.5-12.2) FL Creatinine 0.4 L (0.6-1.5) mg/dL BUN/Creatinine Ratio 23.50 H (12.00-20.00) Ratio Calcium 8.0 L (8.7-10.3) mg/dL Assessment and Plan (1) Colitis Current Visit: Yes Status: Acute Code(s): K52.9 - NONINFECTIVE GASTROENTERITIS AND COLITIS, UNSPECIFIED SNOMED Code(s): 46538955 (2) Urinary tract infection Current Visit: No Status: Acute Code(s): N39.0 - URINARY TRACT INFECTION, SITE NOT SPECIFIED SNOMED Code(s): 39087442 Plan: 1patient with new fever elevated white count in this patient in the hospital for about a week with initially symptom of nausea vomiting and diarrhea I clinical suspicious for a C. difficile colitis the patient has had negative initial stool for C. difficile also have a positive UA concerning for possible UTI chest x-ray did show some effusion and atelectasis but the patient did not have significant cough or sputum production pneumonia less likely but not entirely excluded 2stool for C. difficile is negative stool cultures currently pending.Urine with e.coli and enterobacter 3CT of abdominal pelvis did show colitis and possible right lower lobe pneumonia 4patient to continue with cefepime and oral Flagyl along with Questran for symptomatic relief of her diarrhea, 5-patient did have a Levaquin ALLERGY on the chart however the patient did not recall any reaction she has taken Cipro without any problem that will be for oral Cipro and Flagyl on discharge Dictation was produced using [employer] dictation software. please excuse any grammatical, word or spelling errors. Time with Patient: Less than 30
[2023-06-17] MEDS: QUEtiapine 400 MG TAB PO SCH (20:34)
[2023-06-17] MEDS: METOPROLOL SUCCINATE (ER) 50 MG TAB.ER.24H PO SCH (20:34)
[2023-06-17] MEDS: ONDANSETRON 4 MG/2 ML VIAL IVP PRN (20:35)
[2023-06-18] MEDS: CEFEPIME 2 GM in SODIUM CHLORIDE 0.9% 100 ML IVPB SCH ×4 (00:26→23:20)
[2023-06-18] MEDS: SODIUM CHLORIDE 0.9% 1,000 ML IV SCH ×2 (06:35→18:02)
[2023-06-18] MEDS: HYDROcodone/APAP 5-325MG 1 EACH TAB PO PRN (06:44)
[2023-06-18] MEDS: PANTOPRAZOLE 40 MG TABLET PO SCH (06:44)
[2023-06-18] MEDS: LACTOBACILLUS ACIDOPHILUS/PECT 1 EACH CAPSULE PO SCH ×3 (08:16→19:58)
[2023-06-18] MEDS: metroNIDAZOLE 500 MG TAB PO SCH ×3 (08:16→19:58)
[2023-06-18] MEDS: levETIRAcetam 500 MG TAB PO SCH ×2 (08:16→19:58)
[2023-06-18] MEDS: GABAPENTIN 300 MG CAP PO SCH ×3 (08:16→19:58)
[2023-06-18] MEDS: LOPERAMIDE 2 MG CAP PO SCH ×4 (08:17→19:58)
[2023-06-18] MEDS: FORMOTEROL FUMARATE 20 MCG/2 ML NEBU INHALATION SCH ×2 (09:18→20:15)
[2023-06-18] MEDS: IPRATROPIUM-ALBUTEROL 3 ML NEB INHALATION SCH ×4 (09:18→20:15)
[2023-06-18] MEDS: CHOLESTYRAMINE (WITH SUGAR) 4 GM PACKET PO SCH ×2 (10:30→19:58)
[2023-06-18] MEDS: FLUTICASONE 50MCG/SPRAY NASAL 16GM EA NOSTRIL SCH (10:30)
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
--- NOTE | 2023-06-18 12:50 | P.PN ---
Subjective Progress Note Date: 06/18/23 63-year-old lady with past medical history significant for Atrial fibrillation, coronary artery disease, chest pain with angina, COPD, CVA/TIA, GERD, hyperlipidemia, hypertension, osteoarthritis, seizure disorder, Crohn's, anxiety/bipolar depression who presented to the ER because of nausea and vomiting last couple of days. Patient was discharged only a couple of days ago after being admitted for chest pain rule out. Patient stated that she has been noticing that she was having low appetite and started having nausea and vomiting. Patient also complaining of diarrhea. Patient has been complaining of loss of appetite and loss of weight for the last 5-6 months. Denies any chest pain. Denies any shortness of breath. Denies any fever or chills. Because of the symptoms, patient came to the ER Initial lab work done in the ER showed WBC 12.6, hemoglobin 11.5, platelet count 442, sodium 124, potassium 3.2, BUN 8, creatinine 0.47, glucose 109, lipase 366 Patient admitted to medicine service 06/06. Patient seen and examined. Electrolytes have improved. Patient is still stating that she is lethargic. Continues to have poor appetite 06/07. Patient seen and examined. Complaining of diarrhea and abdominal pain. 06/08. Patient seen and examined. Still having diarrhea. Stool for C. diff is negative, sodium is 133, potassium of 3.1 this morning 06/09. Patient seen and examined. Continues to complain of lethargy and weakness . Diarrhea has improved compared to yesterday. Denies Abdominal pain 06/10. Patient seen and examined. Diarrhea has improved. Blood work done this morning showed WBC 9.25, hemoglobin 8.9, sodium 134, potassium 3.9. States she still complaining of lethargy 06/11. Patient seen and examined. Encouraged patient to get out of bed and sit in the chair. Having been having low-grade fevers 06/12. Patient seen and examined. Chest x-ray and UA done, chest x-ray showed pneumonia. UA was SUSPICIOUS for UTI. Patient still having diarrhea. having low-grade fevers Dr Vaughn Assumed care 06/13: Patient evaluated bedside, patient states she has nausea however breathing has improved, cough is improved diarrhea has improved 06/14: Patient seen and evaluated bedside, patient states abdominal pain is imp roved, diarrhea has improved. CT findings discussed with her. Continue IV antibiotics including Rocephin and Flagyl 06/15: Patient seen and evaluated bedside. Due to worsening leukocytosis and CT finding patient transitioned to IV cefepime due to right lower lobe pneumonia. Oral Flagyl continued. Patient started on fluids secondary to episode of hypotension 06/16: Patient seen and evaluated bedside, care plan discussed with patient patient encouraged to ambulate. Plan to discharge to rehab once a day. He continued antibiotic management infectious disease on cefepime. Vancomycin has already been discontinued. Continue oral Flagyl 06/18: Patient seen and evaluated bedside. Overnight patient was noted to have episode of nonsustained V. tach. Cardiology consulted. Per cardiology no need to repeat echo continue cardiac medications continue telemetry monitoring. We'll optimize electrolytes Objective - Vital Signs Vital signs: Vital Signs Temp 97.6 F 06/18/23 08:00 Pulse 80 06/18/23 09:28 Resp 16 06/18/23 08:00 BP 99/62 06/18/23 08:00 Pulse Ox 99 06/18/23 08:00 FiO2 Intake & Output 06/17/23 06/18/23 06/18/23 18:59 06:59 18:59 Intake Total 474 Output Total 1 301 Balance 473 -301 Weight 47.627 kg Intake: Oral 474 Output: Urine 300 Stool 1 1 Other: Voiding Method Diaper Diaper Diaper Incontinent Incontinent Incontinent # Voids 1 3 3 # Bowel Movements 1 1 1 - Exam PHYSICAL EXAMINATION: GENERAL: The patient is alert and oriented x3, not in any acute distress. Chronically ill-looking HEENT: Pupils are round and equally reacting to light. EOMI. No scleral icterus. No conjunctival pallor. Normocephalic, atraumatic. No pharyngeal erythema. No thyromegaly. CARDIOVASCULAR: S1 and S2 present. No murmurs, rubs, or gallops. PULMONARY: Chest is clear to auscultation, no wheezing or crackles. ABDOMEN: Soft, nontender, nondistended, normoactive bowel sounds. No palpable organomegaly. MUSCULOSKELETAL: No joint swelling or deformity. EXTREMITIES: No cyanosis, clubbing, or pedal edema. NEUROLOGICAL: Gross neurological examination did not reveal any focal deficits. SKIN: No rashes. - Labs CBC & Chem 7: 06/17/23 05:49 06/17/23 05:49 Assessment and Plan Assessment: Assessment and plan * Urinary tract infection Enterobacter & Ecoli * Multifocal pneumonia * Diarrhea with acute colitis * Stage II pressure ulcer on sacrum present on admission * Protein calorie malnutrition * History of atrial fibrillation * Unsustained V. tach * Chronic hypoxic respiratory failure secondary to COPD * Hypertension * Hyperlipidemia * Seizure disorder * In regards to urinary tract infection , patient was on Rocephin and Flagyl, escalated to cefepime and Flagyl, urine culture positive for gram-negative bacilli>> Enterobacter, E. coli * For Pneumonia CT abdomen pelvis shows right lower lobe pneumonia and diffuse colitis, continue cefepime and Flagyl per ID , Sputum cultures ordered , CRP trend down 10> 3 * In regards to history of seizure disorder continue patient on Keppra * Patient does complain of diarrhea continue Lomotil, stool C. diff negative, Questran started * In regards to history of atrial fibrillation continue patient on xarelto and metoprolol * In regards to nonsustained V. tach cardiology consulted recommendation is to monitor * Follow up on CBC and basic metabolic panel * discharge to subacute rehab within the next 24-48 hours
[2023-06-18] MEDS: ONDANSETRON 4 MG/2 ML VIAL IVP PRN (17:14)
--- NOTE | 2023-06-18 17:47 | P.PN ---
Subjective Progress Note Date: 06/18/23 Principal diagnosis: Fever/UTI/colitis Patient is a 63-year-old female with a past medical history significant for atrial fibrillation and coronary disease COPD CVA TIA hypertension hyperlipidemia presenting the hospital about a week before initial evaluation by myself for evaluation nausea vomiting and diarrhea, patient subsequent spiked a fever and did have abnormal UA and x-ray prompting this infectious disease consultation. On today's evaluation that is 06/18/2023, the patient denies any fever or any chills, the patient is breathing comfortably on 3 L nasal cannula , the patient denies chest pain did have occasional dry, the patient denies nausea and vomit ing no abdominal pain and 1 episode of diarrhea this morning Patient did have hemoglobin of 7.10, white count is 7.10, creatinine 0.4, stool for C. difficile was negative stool culture pending urine growing E. coli and Enterobacter that is resistant to the Rocephin, CT abdominal pelvis today shows diffuse colitis and right lower lobe pneumonia Objective - Vital Signs Vital signs: Vital Signs Temp 98.4 F 06/18/23 14:00 Pulse 92 06/18/23 16:19 Resp 16 06/18/23 14:00 BP 130/63 06/18/23 14:00 Pulse Ox 98 06/18/23 14:00 FiO2 Intake & Output 06/17/23 06/18/23 06/18/23 18:59 06:59 18:59 Intake Total 474 Output Total 1 301 Balance 473 -301 Weight 47.627 kg Intake: Oral 474 Output: Urine 300 Stool 1 1 Other: Voiding Method Diaper Diaper Diaper Incontinent Incontinent Incontinent # Voids 1 3 3 # Bowel Movements 1 1 1 - Exam GENERAL DESCRIPTION: Elderly female lying in bed in no distress RESPIRATORY SYSTEM: Unlabored breathing , decreased breath sounds at bases HEART: S1 S2 regular rate and rhythm ,no loud murmurs ABDOMEN: Soft , mild lower abdominal tenderness EXTREMITIES: No edema feet - Labs CBC & Chem 7: 06/17/23 05:49 06/17/23 05:49 Assessment and Plan (1) Colitis Current Visit: Yes Status: Acute Code(s): K52.9 - NONINFECTIVE GAS TROENTERITIS AND COLITIS, UNSPECIFIED SNOMED Code(s): 27440539 (2) Urinary tract infection Current Visit: No Status: Acute Code(s): N39.0 - URINARY TRACT INFECTION, SITE NOT SPECIFIED SNOMED Code(s): 04675012 Plan: 1patient with new fever elevated white count in this patient in the hospital for about a week with initially symptom of nausea vomiting and diarrhea I clinical suspicious for a C. difficile colitis the patient has had negative initial stool for C. difficile also have a positive UA concerning for possible UTI chest x-ray did show some effusion and atelectasis but the patient did not have significant cough or sputum production pneumonia less likely but not entirely excluded 2stool for C. difficile is negative stool cultures currently pending.Urine with e.coli and enterobacter 3CT of abdominal pelvis did show colitis and possible right lower lobe pneumonia 4patient to continue with cefepime and oral Flagyl along with Questran for symptomatic relief of her diarrhea, with a plan to finish therapy with oral Cipro and Flagyl on discharge Dictation was produced using [employer] dictation software. please excuse any grammatical, word or spelling errors. Time with Patient: Less than 30
[2023-06-18] MEDS: RIVAROXABAN 20 MG TAB PO SCH (18:01)
[2023-06-18] MEDS: QUEtiapine 400 MG TAB PO SCH (19:58)
[2023-06-18] MEDS: METOPROLOL SUCCINATE (ER) 50 MG TAB.ER.24H PO SCH (19:58)
[2023-06-19] MEDS: PANTOPRAZOLE 40 MG TABLET PO SCH (05:30)
[2023-06-19] MEDS: SODIUM CHLORIDE 0.9% 1,000 ML IV SCH ×2 (05:30→20:16)
[2023-06-19 08:18] VITALS: RESP 16
[2023-06-19] MEDS: CHOLESTYRAMINE (WITH SUGAR) 4 GM PACKET PO SCH ×2 (08:19→17:25)
[2023-06-19] MEDS: levETIRAcetam 500 MG TAB PO SCH ×2 (08:19→20:16)
[2023-06-19] MEDS: GABAPENTIN 300 MG CAP PO SCH ×3 (08:19→20:16)
[2023-06-19] MEDS: LACTOBACILLUS ACIDOPHILUS/PECT 1 EACH CAPSULE PO SCH ×3 (08:19→20:15)
[2023-06-19] MEDS: metroNIDAZOLE 500 MG TAB PO SCH ×3 (08:20→20:16)
[2023-06-19] MEDS: LOPERAMIDE 2 MG CAP PO SCH ×4 (08:20→20:15)
[2023-06-19] MEDS: HYDROcodone/APAP 5-325MG 1 EACH TAB PO PRN (08:21)
[2023-06-19] MEDS: CEFEPIME 2 GM in SODIUM CHLORIDE 0.9% 100 ML IVPB SCH ×3 (08:22→23:28)
[2023-06-19] MEDS: FORMOTEROL FUMARATE 20 MCG/2 ML NEBU INHALATION SCH ×2 (08:43→19:59)
[2023-06-19] MEDS: IPRATROPIUM-ALBUTEROL 3 ML NEB INHALATION SCH ×4 (08:43→19:59)
[2023-06-19 08:59] LABS: HCT 24.6 % (37.2-46.3); HGB 7.6 d/dL (12.0-15.0); MCH 25.4 pg (27.0-32.0); MCHC 30.9 d/dL (32.0-37.0); MCV 82.3 FL (80.0-97.0); Mean Platelet Volume 8.8 FL (9.5-12.2); NRBC Per 100 WBC 0 X 10*3/uL (0.00-0.01); Platelet Count 380 X 10*3/uL (140-440); RBC 2.99 X 10*6/uL (4.10-5.20); RDW 16.5 % (11.5-14.5); WBC 6.74 X 10*3/uL (4.50-10.00)
[2023-06-19 09:23] LABS: Magnesium 1.7 mg/dL (1.5-2.4)
[2023-06-19 09:25] LABS: Blood Urea Nitrogen 15.6 mg/dL (9.0-27.0); Calcium 8.6 mg/dL (8.7-10.3); Carbon Dioxide 30.1 mmol/L (21.6-31.8); Chloride 98 mmol/L (96-109); Glucose 88 mg/dL (70-110); Potassium 4.7 mmol/L (3.5-5.5); Sodium 136 mmol/L (135-145)
[2023-06-19] MEDS: FLUTICASONE 50MCG/SPRAY NASAL 16GM EA NOSTRIL SCH (09:25)
[2023-06-19] MEDS ORDERED: Magnesium Replacement Protocol 1 EACH MISC MISCELLANE PRN (10:12)
[2023-06-19] MEDS ORDERED: MAGNESIUM SULFATE-D5W PMX 1 GM in DEXTROSE/WATER 1 100ML.BAG IVPB ONE (10:12)
--- NOTE | 2023-06-19 10:12 | P.PN ---
Subjective Progress Note Date: 06/19/23 This is a 63-year-old female with a past medical history significant for hypertrophic cardiomyopathy, hypertension, hyperlipidemia, paroxysmal atrial fibrillation, pulmonary embolism, CVA, COPD, and nicotine dependence. Patient follows in the office with Dr. Guerra but has not been seen since June 2020. We have been asked to see the patient in consultation for ventricular tachycardia. Patient is admitted to the hospital secondary to urinary tract infection, pneumonia, and colitis. Patient had a 21 beat run of ventricular tachycardia 06/17/2023. Patient was asymptomatic at the time. She had been having vomiting as well as continues to have diarrhea. * EKG reveals sinus mechanism with no signs of acute ischemia * Chest xray small left pleural effusion with adjacent atelectasis * Current home cardiac medications include Xarelto 20 mg at night and metoprolol succinate 50 mg daily * Most recent echocardiogram obtained in May 2023 revealed ejection fraction 55-60%, mild pulmonary hypertension, and trace pulmonic regurgitation 06/19/2023 Patient was seen and examined resting comfortably in bed. Her vomiting has subsided and the diarrhea is better. Laboratory values today showed a hemoglobin of 7.6 which appears to be stable, potassium 4.7, BUN 15.6, creatinine 0.5, magnesium 1.7. She's had no recurrence of ventricular tachycardia. She continues to complain of some shortness of breath with activity. She's had no palpitations or chest discomfort. She denies any ort hopnea or PND. She has no lower extremity edema. Objective - Vital Signs Vital signs: Vital Signs Temp 98.2 F 06/19/23 08:00 Pulse 90 06/19/23 08:53 Resp 16 06/19/23 08:00 BP 107/68 06/19/23 08:00 Pulse Ox 99 06/19/23 08:00 FiO2 Intake & Output 06/18/23 06/19/23 06/19/23 18:59 06:59 18:59 Intake Total 222 Output Total 301 1 Balance -301 -1 222 Weight 47.627 kg Intake: Oral 222 Output: Urine 300 Stool 1 1 Other: Voiding Method Diaper Diaper Diaper Incontinent Incontinent Incontinent # Voids 2 1 # Bowel Movements 1 - Exam HEENT: Head is normocephalic. Pupils are equal, round. Sclerae anicteric. Mucous membranes of the mouth are moist. Neck supple. No JVD or thyromegaly LUNGS: Respirations even and unlabored. Lungs with expiratory wheezing noted HEART: Regular rate and rhythm. S1 and S2 heard. ABDOMEN: Soft. Nondistended. Nontender. EXTREMITIES: Normal range of motion. No clubbing or cyanosis. Peripheral pulses intact. No lower extremity edema NEUROLOGIC: Awake and alert. Oriented x 3. - Labs CBC & Chem 7: 06/19/23 03:43 06/19/23 03:43 Labs: Abnormal Lab Results - Last 24 Hours (Table) 06/19/23 06/19/23 Range/Units 03:43 03:43 RBC 2.99 L (4.10-5.20) X 10*6/uL Hgb 7.6 L (12.0-15.0) d/dL Hct 24.6 L (37.2-46.3) % MCH 25.4 L (27.0-32.0) pg MCHC 30.9 L (32.0-37.0) d/dL RDW 16.5 H (11.5-14.5) % MPV 8.8 L (9.5-12.2) FL Creatinine 0.5 L (0.6-1.5) mg/dL BUN/Creatinine Ratio 31.20 H (12.00-20.00) Ratio Calcium 8.6 L (8.7-10.3) mg/dL Assessment and Plan Assessment: Urinary tract infection Pneumonia Diarrhea with colitis Nonsustained ventricular tachycardia History of hypertrophic cardiomyopathy Hypertension Hyperlipidemia Paroxysmal atrial fibrillation History of pulmonary embolism History of CVA COPD Nicotine dependence Plan: From cardiology's perspective we will replace magnesium per protocol. There's been no recurrence of ventricular tachycardia. She may be discharged home when okay per primary. She will follow-up as an outpatient with Dr. Guerra. [employer] note has been reviewed, I agree with a documented findings and plan of care. Patient was seen and examined.
--- NOTE | 2023-06-19 13:31 | P.PN ---
Subjective Progress Note Date: 06/19/23 63-year-old lady with past medical history significant for Atrial fibrillation, coronary artery disease, chest pain with angina, COPD, CVA/TIA, GERD, hyperlipidemia, hypertension, osteoarthritis, seizure disorder, Crohn's, anxiety/bipolar depression who presented to the ER because of nausea and vomiting last couple of days. Patient was discharged only a couple of days ago after being admitted for chest pain rule out. Patient stated that she has been noticing that she was having low appetite and started having nausea and vomiting. Patient also complaining of diarrhea. Patient has been complaining of loss of appetite and loss of weight for the last 5-6 months. Denies any chest pain. Denies any shortness of breath. Denies any fever or chills. Because of the symptoms, patient came to the ER Initial lab work done in the ER showed WBC 12.6, hemoglobin 11.5, platelet count 442, sodium 124, potassium 3.2, BUN 8, creatinine 0.47, glucose 109, lipase 366 Patient admitted to medicine service 06/06. Patient seen and examined. Electrolytes have improved. Patient is still stating that she is lethargic. Continues to have poor appetite 06/07. Patient seen and examined. Complaining of diarrhea and abdominal pain. 06/08. Patient seen and examined. Still having diarrhea. Stool for C. diff is negative, sodium is 133, potassium of 3.1 this morning 06/09. Patient seen and examined. Continues to complain of lethargy and weakness . Diarrhea has improved compared to yesterday. Denies Abdominal pain 06/10. Patient seen and examined. Diarrhea has improved. Blood work done this morning showed WBC 9.25, hemoglobin 8.9, sodium 134, potassium 3.9. States she still complaining of lethargy 06/11. Patient seen and examined. Encouraged patient to get out of bed and sit in the chair. Having been having low-grade fevers 06/12. Patient seen and examined. Chest x-ray and UA done, chest x-ray showed pneumonia. UA was SUSPICIOUS for UTI. Patient still having diarrhea. having low-grade fevers Dr Vaughn Assumed care 06/13: Patient evaluated bedside, patient states she has nausea however breathing has improved, cough is improved diarrhea has improved 06/14: Patient seen and evaluated bedside, patient states abdominal pain is imp roved, diarrhea has improved. CT findings discussed with her. Continue IV antibiotics including Rocephin and Flagyl 06/15: Patient seen and evaluated bedside. Due to worsening leukocytosis and CT finding patient transitioned to IV cefepime due to right lower lobe pneumonia. Oral Flagyl continued. Patient started on fluids secondary to episode of hypotension 06/16: Patient seen and evaluated bedside, care plan discussed with patient patient encouraged to ambulate. Plan to discharge to rehab once a day. He continued antibiotic management infectious disease on cefepime. Vancomycin has already been discontinued. Continue oral Flagyl 06/18: Patient seen and evaluated bedside. Overnight patient was noted to have episode of nonsustained V. tach. Cardiology consulted. Per cardiology no need to repeat echo continue cardiac medications continue telemetry monitoring. We'll optimize electrolytes 06/19: Patient seen and evaluated bedside. Patient will be transitioned to oral antibiotic, plan to discharge within the next 24 hours patient notified she will be going to subacute rehab patient complains of intermittent abdominal pain and nausea Objective - Vital Signs Vital signs: Vital Signs Temp 98.2 F 06/19/23 08:00 Pulse 90 06/19/23 08:53 Resp 16 06/19/23 08:00 BP 107/68 06/19/23 08:00 Pulse Ox 99 06/19/23 08:00 FiO2 Intake & Output 06/18/23 06/19/23 06/19/23 18:59 06:59 18:59 Intake Total 222 Output Total 301 1 Balance -301 -1 222 Weight 47.627 kg Intake: Oral 222 Output: Urine 300 Stool 1 1 Other: Voiding Method Diaper Diaper Diaper Incontinent Incontinent Incontinent # Voids 2 1 # Bowel Movements 1 - Exam PHYSICAL EXAMINATION: GENERAL: The patient is alert and oriented x3, not in any acute distress. Chronically ill-looking HEENT: Pupils are round and equally reacting to light. EOMI. No scleral icterus. No conjunctival pallor. Normocephalic, atraumatic. No pharyngeal erythema. No thyromegaly. CARDIOVASCULAR: S1 and S2 present. No murmurs, rubs, or gallops. PULMONARY: Chest is clear to auscultation, no wheezing or crackles. ABDOMEN: Soft, nontender, nondistended, normoactive bowel sounds. No palpable organomegaly. MUSCULOSKELETAL: No joint swelling or deformity. EXTREMITIES: No cyanosis, clubbing, or pedal edema. NEUROLOGICAL: Gross neurological examination did not reveal any focal deficits. SKIN: No rashes. - Labs CBC & Chem 7: 06/19/23 03:43 06/19/23 03:43 Labs: Abnormal Lab Results - Last 24 Hours (Table) 06/19/23 06/19/23 Range/Units 03:43 03:43 RBC 2.99 L (4.10-5.20) X 10*6/uL Hgb 7.6 L (12.0-15.0) d/dL Hct 24.6 L (37.2-46.3) % MCH 25.4 L (27.0-32.0) pg MCHC 30.9 L (32.0-37.0) d/dL RDW 16.5 H (11.5-14.5) % MPV 8.8 L (9.5-12.2) FL Creatinine 0.5 L (0.6-1.5) mg/dL BUN/Creatinine Ratio 31.20 H (12.00-20.00) Ratio Calcium 8.6 L (8.7-10.3) mg/dL Assessment and Plan Assessment: Assessment and plan * Urinary tract infection Enterobacter & Ecoli * Multifocal pneumonia * Diarrhea with acute colitis * Stage II pressure ulcer on sacrum present on admission * Protein calorie malnutrition * History of atrial fibrillation * Unsustained V. tach * Chronic hypoxic respiratory failure secondary to COPD * Hypertension * Hyperlipidemia * Seizure disorder * In regards to urinary tract infection , patient was on Rocephin and Flagyl, escalated to cefepime and Flagyl, urine culture positive for gram-negative bacilli>> Enterobacter, E. coli, on 06/19 transition to oral ciprofloxacin, continue oral Flagyl * For Pneumonia CT abdomen pelvis shows right lower lobe pneumonia and diffuse colitis, continue cefepime and Flagyl per ID , Sputum cultures ordered , CRP trend down 10> 3 * In regards to history of seizure disorder continue patient on Keppra * Patient does complain of diarrhea continue Lomotil, stool C. diff negative, Questran started * In regards to history of atrial fibrillation continue patient on xarelto and metoprolol * In regards to nonsustained V. tach cardiology consulted recommendation is to monitor * Follow up on CBC and basic metabolic panel * discharge to subacute rehab within the next 24 hours
[2023-06-19] MEDS ORDERED: CEFEPIME 2 GM in SODIUM CHLORIDE 0.9% 100 ML IVPB SCH (15:00)
[2023-06-19] MEDS: RIVAROXABAN 20 MG TAB PO SCH (17:55)
[2023-06-19] MEDS: METOPROLOL SUCCINATE (ER) 50 MG TAB.ER.24H PO SCH (20:16)
[2023-06-19] MEDS: QUEtiapine 400 MG TAB PO SCH (20:16)
[2023-06-19] MEDS ORDERED: CIPROFLOXACIN HCL 500 MG TAB PO SCH (21:00)
[2023-06-20] MEDS: HYDROcodone/APAP 5-325MG 1 EACH TAB PO PRN (01:51)
[2023-06-20] MEDS: PANTOPRAZOLE 40 MG TABLET PO SCH (05:29)
--- NOTE | 2023-06-20 07:19 | P.PN ---
Subjective Progress Note Date: 06/19/23 Principal diagnosis: Fever/UTI/colitis Patient is a 63-year-old female with a past medical history significant for atrial fibrillation and coronary disease COPD CVA TIA hypertension hyperlipidemia presenting the hospital about a week before initial evaluation by myself for evaluation nausea vomiting and diarrhea, patient subsequent spiked a fever and did have abnormal UA and x-ray prompting this infectious disease consultation. On today's evaluation that is 06/19/2023, the patient denies having any fever or any chills, the patient is breathing comfortably on 2 L nasal cannula oxygen,, the patient denies having any chest pain shortness of breath or any worsening cough no nausea vomiting no abdominal pain and the patient diarrhea has slowed down. Patient did have a white count of 6.74 creatinine 0.5 stool culture negative Objective - Vital Signs Vital signs: Vital Signs Temp 98.2 F 06/19/23 08:00 Pulse 90 06/19/23 08:53 Resp 16 06/19/23 08:00 BP 107/68 06/19/23 08:00 Pulse Ox 99 06/19/23 08:00 FiO2 Intake & Output 06/18/23 06/19/23 06/19/23 18:59 06:59 18:59 Intake Total 222 Output Total 301 1 Balance -301 -1 222 Weight 47.627 kg Intake: Oral 222 Output: Urine 300 Stool 1 1 Other: Voiding Method Diaper Diaper Diaper Incontinent Incontinent Incontinent # Voids 2 1 # Bowel Movements 1 - Exam GENERAL DESCRIPTION: Elderly female lying in bed in no distress RESPIRATORY SYSTEM: Unlabored breathing , decreased breath sounds at bases HEART: S1 S2 regular rate and rhythm ,no loud murmurs ABDOMEN: Soft , mild lower abdominal tenderness EXTREMITIES: No edema feet - Labs CBC & Chem 7: 06/19/23 03:43 06/19/23 03:43 Labs: Abnormal Lab Results - Last 24 Hours (Table) 06/19/23 06/19/23 Range/Units 03:43 03:43 RBC 2.99 L (4.10-5.20) X 10*6/uL Hgb 7.6 L (12.0-15.0) d/dL Hct 24.6 L (37.2-46.3) % MCH 25.4 L (27.0-32.0) pg MCHC 30.9 L (32.0-37.0) d/dL RDW 16.5 H (11.5-14.5) % MPV 8.8 L (9.5-12.2) FL Creatinine 0.5 L (0.6-1.5) mg/dL BUN/Creatinine Ratio 31.20 H (12.00-20.00) Ratio Calcium 8.6 L (8.7-10.3) mg/dL Assessment and Plan (1) Colitis Current Visit: Yes Status: Acute Code(s): K52.9 - NONINFECTIVE GASTROENTERITIS AND COLITIS, UNSPECIFIED SNOMED Code(s): 32918974 (2) Urinary tract infection Current Visit: No Status: Acute Code(s): N39.0 - URINARY TRACT INFECTION, S ITE NOT SPECIFIED SNOMED Code(s): 02075405 Plan: 1patient with new fever elevated white count in this patient in the hospital for about a week with initially symptom of nausea vomiting and diarrhea I clinical suspicious for a C. difficile colitis the patient has had negative initial stool for C. difficile also have a positive UA concerning for possible UTI chest x-ray did show some effusion and atelectasis but the patient did not have significant cough or sputum production pneumonia less likely but not entirely excluded 2stool for C. difficile is negative stool cultures currently pending.Urine with e.coli and enterobacter 3CT of abdominal pelvis did show colitis and possible right lower lobe pneumonia 4patient has shown clinical improvement she will continue with the cefepime and Flagyl along with oral Questran for symptomatically for diarrhea however patient will be able to finish therapy with oral Cipro and Flagyl on discharge questions concerns were answered Dictation was produced using [employer] software. please excuse any grammatical, word or spelling errors.
[2023-06-20] MEDS: LOPERAMIDE 2 MG CAP PO SCH ×2 (09:05→14:12)
[2023-06-20] MEDS: levETIRAcetam 500 MG TAB PO SCH (09:05)
[2023-06-20] MEDS: metroNIDAZOLE 500 MG TAB PO SCH (09:05)
[2023-06-20] MEDS: GABAPENTIN 300 MG CAP PO SCH (09:05)
[2023-06-20] MEDS: LACTOBACILLUS ACIDOPHILUS/PECT 1 EACH CAPSULE PO SCH (09:06)
[2023-06-20] MEDS: FLUTICASONE 50MCG/SPRAY NASAL 16GM EA NOSTRIL SCH (09:06)
[2023-06-20] MEDS: CEFEPIME 2 GM in SODIUM CHLORIDE 0.9% 100 ML IVPB SCH (09:06)
[2023-06-20 09:11] LABS: BUN/Creat Ratio 37.25 Ratio (12.00-20.00); Blood Urea Nitrogen 14.9 mg/dL (9.0-27.0); Calcium 8.5 mg/dL (8.7-10.3); Carbon Dioxide 33.1 mmol/L (21.6-31.8); Chloride 95 mmol/L (96-109); Glucose 115 mg/dL (70-110); Magnesium 1.8 mg/dL (1.5-2.4); Potassium 4.5 mmol/L (3.5-5.5); Sodium 135 mmol/L (135-145)
[2023-06-20] MEDS: IPRATROPIUM-ALBUTEROL 3 ML NEB INHALATION SCH ×2 (09:12→12:52)
[2023-06-20] MEDS: FORMOTEROL FUMARATE 20 MCG/2 ML NEBU INHALATION SCH (09:12)
--- NOTE | 2023-06-20 10:31 | P.DS ---
Providers Date of admission: 06/07/23 12:36 Expected date of discharge: 06/20/23 Attending physician: Logan Whitman Consults: 06/12/23 10:35 Consult Physician Routine Consulting Provider: Margarita Irwin Consult Reason/Comments: pneumonia,UTi Do you want consulting provider notified?: Yes Primary care physician: [facility] Hospital Course: 63-year-old lady with past medical history significant for Atrial fibrillation, coronary artery disease, chest pain with angina, COPD, CVA/TIA, GERD, hyperlipidemia, hypertension, osteoarthritis, seizure disorder, Crohn's, anxiety/bipolar depression who presented to the ER because of nausea and vomiting last couple of days. Patient was discharged only a couple of days ago after being admitted for chest pain rule out. Patient stated that she has been noticing that she was having low appetite and started having nausea and vomiting. Patient also complaining of diarrhea. Patient has been complaining of loss of appetite and loss of weight for the last 5-6 months. Denies any chest pain. Denies any shortness of breath. Denies any fever or chills. Because of the symptoms, patient came to the ER Initial lab work done in the ER showed WBC 12.6, hemoglobin 11.5, platelet count 442, sodium 124, potassium 3.2, BUN 8, creatinine 0.47, glucose 109, lipase 366 Patient admitted to medicine service 06/06. Patient seen and examined. Electrolytes have improved. Patient is still stating that she is lethargic. Continues to have poor appetite 06/07. Patient seen and examined. Complaining of diarrhea and abdominal pain. 06/08. Patient seen and examined. Still having diarrhea. Stool for C. diff is negative, sodium is 133, potassium of 3.1 this morning 06/09. Patient seen and examined. Continues to complain of lethargy and weakness. Diarrhea has improved compared to yesterday. Denies Abdominal pain 06/10. Patient seen and examined. Diarrhea has improved. Blood work done this morning showed WBC 9.25, hemoglobin 8.9, sodium 134, potassium 3.9. States she still complaining of lethargy 06/11. Patient seen and examined. Encouraged patient to get out of bed and sit in the chair. Having been having low-grade fevers 06/12. Patient seen and examined. Chest x-ray and UA done, chest x-ray showed pneumonia. UA was SUSPICIOUS for UTI. Patient still having diarrhea. having low-grade fevers Dr Vaughn Assumed care 06/13: Patient evaluated bedside, patient states she has nausea however breathing has improved, cough is improved diarrhea has improved 06/14: Patient seen and evaluated bedside, patient states abdominal pain is improved, diarrhea has improved. CT findings discussed with her. Continue IV antibiotics including Rocephin and Flagyl 06/15: Patient seen and evaluated bedside. Due to worsening leukocytosis and CT finding patient transitioned to IV cefepime due to right lower lobe pneumonia. Oral Flagyl continued. Patient started on fluids secondary to episode of hypotension 06/16: Patient seen and evaluated bedside, care plan discussed with patient patient encouraged to ambulate. Plan to discharge to rehab once a day. He continued antibiotic management infectious disease on cefepime. Vancomycin has already been discontinued. Continue oral Flagyl 06/18: Patient seen and evaluated bedside. Overnight patient was noted to have e pisode of nonsustained V. tach. Cardiology consulted. Per cardiology no need to repeat echo continue cardiac medications continue telemetry monitoring. We'll optimize electrolytes 06/19: Patient seen and evaluated bedside. Patient will be transitioned to oral antibiotic, plan to discharge within the next 24 hours patient notified she will be going to subacute rehab patient complains of intermittent abdominal pain and nausea 06/20: Patient seen and evaluated bedside. Care plan discussed with infectious disease discharged on Bactrim and Flagyl to complete 7 more days. Patient feels better no episode of V. tach noted. Heart neurologically patient for discharge PHYSICAL EXAMINATION: GENERAL: The patient is alert and oriented x3, not in any acute distress. Chronically ill-looking HEENT: Pupils are round and equally reacting to light. EOMI. No scleral icterus. No conjunctival pallor. Normocephalic, atraumatic. No pharyngeal erythema. No thyromegaly. CARDIOVASCULAR: S1 and S2 present. No murmurs, rubs, or gallops. PULMONARY: Chest is clear to auscultation, no wheezing or crackles. ABDOMEN: Soft, nontender, nondistended, normoactive bowel sounds. No palpable organomegaly. MUSCULOSKELETAL: No joint swelling or deformity. EXTREMITIES: No cyanosis, clubbing, or pedal edema. NEUROLOGICAL: Gross neurological examination did not reveal any focal deficits. SKIN: No rashes. Assessment: Assessment and plan * Urinary tract infection Enterobacter & Ecoli * Multifocal pneumonia * Diarrhea with acute colitis * Stage II pressure ulcer on sacrum present on admission * Protein calorie malnutrition * History of atrial fibrillation * Unsustained V. tach * Chronic hypoxic respiratory failure secondary to COPD * Hypertension * Hyperlipidemia * Seizure disorder * In regards to urinary tract infection , patient was on Rocephin and Flagyl, escalated to cefepime and Flagyl, urine culture positive for gram-negative bacilli>> Enterobacter, E. coli, on 06/19 transition to oral bactrim , continue oral Flagyl * For Pneumonia CT abdomen pelvis shows right lower lobe pneumonia and diffuse colitis, continue cefepime and Flagyl per ID , Sputum cultures ordered , CRP trend down 10> 3 * In regards to history of seizure disorder continue patient on Keppra * Patient does complain of diarrhea continue Lomotil, stool C. diff negative, Questran given while inpatient * In regards to history of atrial fibrillation continue patient on xarelto and metoprolol * In regards to nonsustained V. tach cardiology consulted recommendation is to monitor, signed off. For discharge continue beta dhara Patient Condition at Discharge: Stable Plan - Discharge Summary New Discharge Prescriptions: New Sulfamethox-Tmp 800-160Mg [Bactrim DS 800-160 mg] 1 tab PO Q12HR 7 Days #14 tab metroNIDAZOLE [Flagyl] 500 mg PO TID 7 Days #14 tab Continue Glycopyrrolate/Formoterol Fum [Bevespi Aerosphere Inhaler] 2 puff INHALATION RT-BID Fluticasone Nasal [place] [Flonase Nasal [place]] 1 spr EA NOSTRIL DAILY QUEtiapine [SEROquel] 400 mg PO HS 30 Days #30 tab levETIRAcetam [Keppra] 1,000 mg PO BID Rivaroxaban [Xarelto] 20 mg PO W/SUPPER #30 tab Pantoprazole Sodium [Protonix] 40 mg PO DAILY Albuterol Sulfate [Albuterol Sulfate Hfa] 2 puff INHALATION RT-Q6H PRN #1 each PRN Reason: Shortness Of Breath Ipratropium-Albuterol Nebulize [Duoneb 0.5 mg-3 mg/3 ml Soln] 3 ml INHALATION RT-QID #100 each Metoprolol Succinate (ER) [Toprol XL] 50 mg PO DAILY #30 tab Gabapentin [Neurontin] 300 mg PO TID 3 Days #9 cap Discontinued predniSONE See Taper PO DIRECTED Discharge Medication List Glycopyrrolate/Formoterol Fum [Bevespi Aerosphere Inhaler] 2 puff INHALATION RT- BID 11/24/19 [History] Fluticasone Nasal [place] [Flonase Nasal [place]] 1 spr EA NOSTRIL DAILY 03/27/20 [History] Rivaroxaban [Xarelto] 20 mg PO W/SUPPER #30 tab 08/08/22 [Rx] Albuterol Sulfate [Albuterol Sulfate Hfa] 2 puff INHALATION RT-Q6H PRN #1 each 10/04/22 [Rx] Pantoprazole Sodium [Protonix] 40 mg PO DAILY 10/04/22 [History] QUEtiapine [SEROquel] 400 mg PO HS 30 Days #30 tab 10/04/22 [Rx] Ipratropium-Albuterol Nebulize [Duoneb 0.5 mg-3 mg/3 ml Soln] 3 ml INHALATION RT-QID #100 each 02/01/23 [Rx] levETIRAcetam [Keppra] 1,000 mg PO BID 03/20/23 [History] Metoprolol Succinate (ER) [Toprol XL] 50 mg PO DAILY #30 tab 05/31/23 [Rx] Gabapentin [Neurontin] 300 mg PO TID 3 Days #9 cap 06/20/23 [Rx] Sulfamethox-Tmp 800-160Mg [Bactrim DS 800-160 mg] 1 tab PO Q12HR 7 Days #14 tab 06/20/23 [Rx] metroNIDAZOLE [Flagyl] 500 mg PO TID 7 Days #14 tab 06/20/23 [Rx] Follow up Appointment(s)/Referral(s): Luc Guerra MD [STAFF PHYSICIAN] - 2 Weeks Daksha Steiner MD [Primary Care Provider] - 1-2 days [facility] [NON-STAFF] - 1-2 Days Discharge Disposition: TRANSFER TO SNF/ECF
[2023-06-20] MEDS: CHOLESTYRAMINE (WITH SUGAR) 4 GM PACKET PO SCH (12:26)
[2023-06-20] MEDS: MAGNESIUM SULFATE-D5W PMX 1 GM in DEXTROSE/WATER 1 100ML.BAG IVPB SCH ×2 (12:31→14:12)
[2023-06-20] MEDS: SODIUM CHLORIDE 0.9% 1,000 ML IV SCH (14:12)
--- NOTE | 2023-06-20 15:29 | P.PN ---
Subjective Progress Note Date: 06/20/23 Principal diagnosis: Fever/UTI/colitis Patient is a 63-year-old female with a past medical history significant for atrial fibrillation and coronary disease COPD CVA TIA hypertension hyperlipidemia presenting the hospital about a week before initial evaluation by myself for evaluation nausea vomiting and diarrhea, patient subsequent spiked a fever and did have abnormal UA and x-ray prompting this infectious disease consultation. On today's evaluation that is 06/20/2023, the patient is afebrile, the patient is breathing comfortably on 2 L nasal cannula oxygen , the patient denies chest pain the patient cough is decreased intensity, the patient denies nausea and vomiting no abdominal pain and diarrhea has improved Patient did have a white count of 6.74 creatinine 0.5 as of yesterday stool culture negative Objective - Vital Signs Vital signs: Vital Signs Temp 98.0 F 06/20/23 08:00 Pulse 90 06/20/23 09:30 Resp 16 06/20/23 08:00 BP 97/56 06/20/23 08:00 Pulse Ox 100 06/20/23 09:14 FiO2 Intake & Output 06/19/23 06/20/23 06/20/23 18:59 06:59 18:59 Intake Total 340 932 Output Total 1 1 Balance 340 -1 931 Intake: Oral 340 932 Output: Stool 1 1 Other: Voiding Method Diaper Diaper Diaper Incontinent Incontinent Incontinent # Voids 1 1 # Bowel Movements 2 - Exam GENERAL DESCRIPTION: Elderly female lying in bed in no distress RESPIRATORY SYSTEM: Unlabored breathing , decreased breath sounds at bases HEART: S1 S2 regular rate and rhythm ,no loud murmurs ABDOMEN: Soft , mild lower abdominal tenderness EXTREMITIES: No edema feet - Labs CBC & Chem 7: 06/19/23 03:43 06/20/23 06:02 Labs: Abnormal Lab Results - Last 24 Hours (Table) 06/20/23 Range/Units 06:02 Chloride 95 L (96-109) mmol/L Carbon Dioxide 33.1 H (21.6-31.8) mmol/L Creatinine 0.4 L (0.6-1.5) mg/dL BUN/Creatinine Ratio 37.25 H (12.00-20.00) Ratio Glucose 115 H (70-110) mg/dL Calcium 8.5 L (8.7-10.3) mg/dL Assessment and Plan (1) Colitis Status: Acute Code(s): K52.9 - NONINFECTIVE GASTROENTERITIS AND COLITIS, UNSPECIFIED SNOMED Code(s): 11915040 (2) Urinary tract infection Status: Acute Code(s): N39.0 - URINARY TRACT INFECTION, SITE NOT SPECIFIED SNOMED Code(s): 67942380 Plan: 1patient with new fever elevated white count in this patient in the hospital for about a week with initially symptom of nausea vomiting and diarrhea I clinical suspicious for a C. difficile colitis the patient has had negative initial stool for C. difficile also have a positive UA concerning for possible UTI chest x-ray did show some effusion and atelectasis but the patient did not have significant cough or sputum production pneumonia less likely but not entirely excluded 2stool for C. difficile is negative stool cultures currently pending.Urine with e.coli and enterobacter 3CT of abdominal pelvis did show colitis and possible right lower lobe pneumonia 4patient has shown clinical improvement she will be able to finish therapy with oral Cipro/Bactrim DS and Flagyl 10 days on discharge , discussed with the admitting team working on discharge Dictation was produced using [employer] dictation software. please excuse any grammatical, word or spelling errors. Time with Patient: Less than 30
[2023-06-20 15:42] VITALS: BP 97/56; PULSE 97; TEMP 98
== END 2023-06-20 14:15 | DRG 640 ==
LOC: EC 12:06 → 6NMEDSUR 13:50 → OBSVTOIN 06-07 12:36
PROVIDERS: ADMIT Internal Medicine; ATTEND Internal Medicine
DX: E87.1 Hypo-osmolality and hyponatremia (principal); E43 Unspecified severe protein-calorie malnutrition; J18.9 Pneumonia, unspecified organism; E46 Unspecified protein-calorie malnutrition; I47.20 Ventricular tachycardia, unspecified; J96.11 Chronic respiratory failure with hypoxia; J44.0 Chronic obstructive pulmonary disease with (acute) lower respiratory infection; I42.2 Other hypertrophic cardiomyopathy; K50.90 Crohn's disease, unspecified, without complications; N39.0 Urinary tract infection, site not specified; Z68.1 Body mass index [BMI] 19.9 or less, adult; L89.152 Pressure ulcer of sacral region, stage 2; I27.20 Pulmonary hypertension, unspecified; I95.9 Hypotension, unspecified; G40.909 Epilepsy, unspecified, not intractable, without status epilepticus; F31.9 Bipolar disorder, unspecified; I48.0 Paroxysmal atrial fibrillation; I25.119 Atherosclerotic heart disease of native coronary artery with unspecified angina pectoris; I10 Essential (primary) hypertension; I69.398 Other sequelae of cerebral infarction; F10.11 Alcohol abuse, in remission; E87.6 Hypokalemia; K21.9 Gastro-esophageal reflux disease without esophagitis; E78.5 Hyperlipidemia, unspecified; B95.2 Enterococcus as the cause of diseases classified elsewhere; M19.90 Unspecified osteoarthritis, unspecified site; F41.9 Anxiety disorder, unspecified; F17.210 Nicotine dependence, cigarettes, uncomplicated; E86.0 Dehydration; B96.20 Unspecified Escherichia coli [E. coli] as the cause of diseases classified elsewhere; F14.91 Cocaine use, unspecified, in remission; Z82.49 Family history of ischemic heart disease and other diseases of the circulatory system; Z79.01 Long term (current) use of anticoagulants; Z79.899 Other long term (current) drug therapy; Z79.891 Long term (current) use of opiate analgesic; Z88.8 Allergy status to other drugs, medicaments and biological substances; Z86.711 Personal history of pulmonary embolism
CPT/HCPCS: 36415; 71045; 71046; 74177; 80048; 80053; 81001; 81003; 83690; 83735; 84132; 84145; 85025; 85027; 86140; 87045; 87046; 87077; 87086; 87186; 87324; 87449; 87493; 93005; 94640; 94760; 96361; 96374; 96376; 99285

== ENCOUNTER 2023-06-21 09:41 | Inpatient (IN) | payer MEDICARE, OTHER ==
[2023-06-21] MEDS ORDERED: PANTOPRAZOLE 40 MG/10 ML VIAL IVP STA (10:02)
[2023-06-21] MEDS ORDERED: ONDANSETRON 4 MG/2 ML VIAL IVP STA (10:02)
[2023-06-21] MEDS ORDERED: SODIUM CHLORIDE 0.9% 1,000 ML IV STA (10:02)
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
[2023-06-21 10:18] LABS: Anisocytosis Slight; Basophils % (A) 0 %; Eosinophils # (A) 0.1 k/uL (0-0.7); Eosinophils % (A) 1 %; HCT 29.9 % (34.0-46.0); HGB 9.7 gm/dL (11.4-16.0); Lymphocytes # (A) 1.4 k/uL (1.0-4.8); Lymphocytes % (A) 20 %; MCH 26.2 pg (25.0-35.0); MCHC 32.5 g/dL (31.0-37.0); MCV 80.7 fL (80.0-100.0); Microcytosis Slight; Monocytes # (A) 0.4 k/uL (0-1.0); Monocytes % (A) 5 %; Neutrophils # (A) 4.9 k/uL (1.3-7.7); Neutrophils % (A) 72 %; Platelet Count 433 k/uL (150-450); RBC 3.71 m/uL (3.80-5.40); WBC 6.8 k/uL (3.8-10.6)
[2023-06-21 10:37] LABS: INR 0.9 (<1.2); Partial Thromboplastin Time 22.4 sec (22.0-30.0); Prothrombin Time 9.5 sec (9.0-12.0)
--- NOTE | 2023-06-21 10:48 | XR ---
EXAMINATION TYPE: XR KUB DATE OF EXAM: 06/21/2023 COMPARISON: NONE HISTORY: Pain TECHNIQUE: Single supine KUB image of the abdomen is obtained FINDINGS: Small bowel demonstrates no evidence for dilatation or air fluid levels. Gas and fecal material is seen in non-distended colon. No convincing evidence for pneumoperitoneum. There is increased soft tissue density within the pelvis which could reflect distended urinary bladde r however mass of other etiology is not excluded. Consider ultrasound correlation. No unusual calcifications. The lung bases are clear. The osseous structures are intact. IMPRESSION: 1. There is increased soft tissue density within the pelvis which could reflect distended urinary bl adder however mass of other etiology is not excluded. Consider ultrasound correlation.
[2023-06-21 10:52] LABS: ALT 16 U/L (4-34); AST 29 U/L (14-36); African American GFR (CKD) >90 (>60 ml/min/1.73 sqM); Albumin 2.9 g/dL (3.5-5.0); Alkaline Phosphatase 58 U/L (38-126); Amylase 88 U/L (30-110); Anion Gap 4 mmol/L; Blood Urea Nitrogen 13 mg/dL (7-17); Calcium 8.5 mg/dL (8.4-10.2); Carbon Dioxide 29 mmol/L (22-30); Chloride 93 mmol/L (98-107); Glucose 119 mg/dL (74-99); Lipase 144 U/L (23-300); Magnesium 1.6 mg/dL (1.6-2.3); Non-African American GFR(CKD) >90 (>60 ml/min/1.73 sqM); Potassium 4.6 mmol/L (3.5-5.1); Sodium 126 mmol/L (137-145); Total Bilirubin 0.3 mg/dL (0.2-1.3); Total Protein 6.2 g/dL (6.3-8.2)
--- NOTE | 2023-06-21 12:58 | CT ---
EXAMINATION TYPE: CT angio abdomen pelvis DATE OF EXAM: 06/21/2023 COMPARISON: 06/13/2023 HISTORY: 63-year-old female ABDOMINAL PAIN, GI bleeding evaluation TECHNIQUE: Contiguous axial scanning of the abdomen and pelvis following before and after administrat ion of Isovue 370 IV contrast. A 92nd delayed scan was utilized. Coronal and sagittal reconstructions performed. 3-D reconstructions generated on a dedicated independent workstation. CT DLP: 1134.9 mGycm Automated exposure control for dose reduction was used. FINDINGS: The heart is normal size without pericardial effusion. Some chronic volume loss in the right hemithor ax but with improvement in aeration at the right base compared to recent prior. There is a moderate-s ized hiatal hernia noted. No focal liver lesion. Portal venous system is patent. Bile duct remains dilated at 1.1 cm at the level of the pancreatic head. However, no upstream biliary ductal dilatation is seen. Possible choledochocyst. Adrenal glands, kidneys, spleen, and pancreas within normal limits. Prominent fluid-filled small bowel loops throughout the abdomen. There is moderate circumferential wall thickening long segment extending from the hepatic flexure to the distal sigmoid colon. Possible circumferential wall thickening at the distal rectum as well. The areas of greatest wall thickening show corresponding pericolic inflammatory fat stranding. No extrava sating contrast is identified. No free fluid or free air. Bladder is markedly distended. Distention up to 15.7 cm craniocaudal. The uterus is displaced posteri bala. Unable to clearly identify either ovary. No abdominal or pelvic lymphadenopathy seen. There is a 3.8 x 2.9 x 1.1 cm filling defect along the posterior wall of the bladder bladder. There is pelvic floor relaxation. Bones: No osseous destructive process. IMPRESSION: 1. A NONSPECIFIC INFECTIOUS OR INFLAMMATORY PANCOLITIS WITH MODERATE INFLAMMATORY CHANGES. RELATIVELY SPARING THE ASCENDING COLON. NO ABSCESS OR FREE AIR. 2. PRONOUNCED URINARY BLADDER DISTENTION UP TO NEARLY 16 CM. CORRELATE TO EXCLUDE URINARY RETENTION. PELVIC FLOOR RELAXATION IS NOTED. 3. IN ADDITION, THERE IS A 3.8 X 2.9 X 1.1 CM FILLING DEFECT ALONG THE POSTERIOR WALL OF THE BLADDER. UROTHELIAL NEOPLASM SHOULD BE EXCLUDED. BLOOD CLOT AND MYCETOMA ARE ALSO THE DIFFERENTIAL. 4. MODERATE SIZED HIATAL HERNIA.
[2023-06-21] MEDS ORDERED: MORPHINE SULFATE 4 MG/ML SYRINGE IVP STA (13:25)
[2023-06-21] MEDS ORDERED: NALOXONE 0.4 MG/ML 1 ML VIAL IV PRN (14:30)
[2023-06-21] MEDS ORDERED: ACETAMINOPHEN TAB 325 MG TAB PO PRN (14:30)
[2023-06-21] MEDS ORDERED: ONDANSETRON 4 MG/2 ML VIAL IVP PRN (14:30)
[2023-06-21] MEDS ORDERED: AMPICILLIN-SULBACTAM 1.5 GM in SODIUM CHLORIDE 0.9% 50 ML IVPB ONE (15:00)
[2023-06-21] MEDS: SODIUM CHLORIDE 0.9% 1,000 ML IV SCH (16:17)
[2023-06-21] MEDS: RIVAROXABAN 20 MG TAB PO SCH (16:31)
[2023-06-21] MEDS: IPRATROPIUM-ALBUTEROL 3 ML NEB INHALATION SCH (19:39)
[2023-06-21] MEDS: FORMOTEROL FUMARATE 20 MCG/2 ML NEBU INHALATION SCH (19:39)
[2023-06-21] MEDS ORDERED: IPRATROPIUM 0.5 MG/2.5 ML NEBU INHALATION SCH (20:00)
[2023-06-21] MEDS: GABAPENTIN 300 MG CAP PO SCH (21:27)
[2023-06-21] MEDS: levETIRAcetam 500 MG TAB PO SCH (21:27)
[2023-06-21] MEDS: QUEtiapine 400 MG TAB PO SCH (21:27)
[2023-06-22] MEDS: AMPICILLIN-SULBACTAM 1.5 GM in SODIUM CHLORIDE 0.9% 50 ML IVPB SCH ×4 (00:32→23:32)
[2023-06-22] MEDS: SODIUM CHLORIDE 0.9% 1,000 ML IV SCH ×2 (05:16→16:37)
[2023-06-22] MEDS: IPRATROPIUM-ALBUTEROL 3 ML NEB INHALATION SCH ×4 (08:17→21:45)
[2023-06-22] MEDS: FORMOTEROL FUMARATE 20 MCG/2 ML NEBU INHALATION SCH ×2 (08:17→21:45)
[2023-06-22] MEDS: MORPHINE SULFATE 4 MG/ML SYRINGE IV PRN ×4 (08:17→20:48)
[2023-06-22] MEDS: METOPROLOL SUCCINATE (ER) 50 MG TAB.ER.24H PO SCH (08:21)
[2023-06-22] MEDS: GABAPENTIN 300 MG CAP PO SCH ×3 (08:21→20:09)
[2023-06-22] MEDS: levETIRAcetam 500 MG TAB PO SCH ×2 (08:21→20:09)
[2023-06-22] MEDS: PANTOPRAZOLE 40 MG/10 ML VIAL IV SCH (08:24)
[2023-06-22] MEDS: FLUTICASONE 50MCG/SPRAY NASAL 16GM EA NOSTRIL SCH (09:05)
[2023-06-22 11:27] LABS: Basophils # (A) 0.03 X 10*3/uL (0.00-0.10); Basophils % (A) 0.6 %; Eosinophils # (A) 0.15 X 10*3/uL (0.04-0.35); Eosinophils % (A) 2.9 %; HCT 28.6 % (37.2-46.3); Lymphocytes # (A) 1.99 X 10*3/uL (0.90-5.00); Lymphocytes % (A) 38.4 %; MCH 25.6 pg (27.0-32.0); MCHC 31.5 d/dL (32.0-37.0); MCV 81.3 FL (80.0-97.0); Monocytes # (A) 0.49 X 10*3/uL (0.20-1.00); Monocytes % (A) 9.5 %; NRBC Per 100 WBC 0 X 10*3/uL (0.00-0.01); Neutrophils # (A) 2.49 X 10*3/uL (1.80-7.70); Platelet Count 495 X 10*3/uL (140-440); RBC 3.52 X 10*6/uL (4.10-5.20); RDW 17.5 % (11.5-14.5); WBC 5.18 X 10*3/uL (4.50-10.00)
[2023-06-22 12:41] LABS: ALT 11 U/L (8-44); AST 22 U/L (13-35); Albumin 3.2 d/dL (3.8-4.9); Albumin/Globulin Ratio 1.28 Ratio (1.60-3.17); Alkaline Phosphatase 53 U/L (41-126); BUN/Creat Ratio 16.25 Ratio (12.00-20.00); Blood Urea Nitrogen 6.5 mg/dL (9.0-27.0); Carbon Dioxide 27.1 mmol/L (21.6-31.8); Chloride 100 mmol/L (96-109); Globulin 2.5 d/dL (1.6-3.3); Glucose 101 mg/dL (70-110); Potassium 4.5 mmol/L (3.5-5.5); Sodium 137 mmol/L (135-145); Total Bilirubin <0.2 mg/dL (0.3-1.2); Total Protein 5.7 d/dL (6.2-8.2)
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
[2023-06-22 13:19] LABS: Anisocytosis Slight; Basophils % (A) 0 %; Eosinophils # (A) 0.1 k/uL (0-0.7); Eosinophils % (A) 2 %; HCT 30.4 % (34.0-46.0); HGB 9.8 gm/dL (11.4-16.0); Lymphocytes % (A) 38 %; MCH 26.7 pg (25.0-35.0); MCHC 32.3 g/dL (31.0-37.0); MCV 82.7 fL (80.0-100.0); Mean Platelet Volume 6.7; Monocytes # (A) 0.5 k/uL (0-1.0); Monocytes % (A) 6 %; Neutrophils % (A) 51 %; Platelet Count 600 k/uL (150-450); RBC 3.68 m/uL (3.80-5.40); RDW 17.5 % (11.5-15.5); WBC 7.8 k/uL (3.8-10.6)
[2023-06-22] MEDS: RIVAROXABAN 20 MG TAB PO SCH (18:25)
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
--- NOTE | 2023-06-22 18:59 | P.PN ---
Subjective Progress Note Date: 06/22/23 63-year-old female presenting to the emergency department with concerns with nausea vomiting. Onset was middle the night. Patient last vomited couple hours ago. Patient questions if emesis was red or brown. No history of similar symptoms previous to. Patient does have some discomfort of her upper abdomen and still feels nauseated. Patient does have a distant history of alcohol abuse. Patient unclear if there is any history of liver problems. Meme completed in ED disease a WBC of 6.8, hemoglobin of 9.7, platelet count of 433, sodium 126, potassium 4.6, BUN/creatinine of 13/0.35 CT abdomen and pelvis reveals nonspecific infectious or inflammatory weaver colitis with moderate inflammatory changes; filling defect along the posterior wall of bladder Objective - Vital Signs Vital signs: Vital Signs Temp 98.4 F 06/21/23 09:44 Pulse 108 H 06/22/23 08:15 Resp 20 06/22/23 08:15 BP 149/79 06/22/23 08:15 Pulse Ox 97 06/22/23 08:15 FiO2 Intake & Output 06/21/23 06/22/23 06/22/23 18:59 06:59 18:59 Output Total 1750 Balance -1750 Weight 49.895 kg Output: Urine 1750 Uretheral (Griffin) 1750 - Exam PHYSICAL EXAMINATION: GENERAL: The patient is alert and oriented x3, not in any acute distress. Well developed, well nourished. HEENT: Pupils are round and equally reacting to light. EOMI. No scleral icterus. No conjunctival pallor. Normocephalic, atraumatic. No pharyngeal erythema. No thyromegaly. CARDIOVASCULAR: S1 and S2 present. No murmurs, rubs, or gallops. PULMONARY: Chest is clear to auscultation, no wheezing or crackles. ABDOMEN: Soft, nontender, nondistended, normoactive bowel sounds. No palpable organomegaly. MUSCULOSKELETAL: No joint swelling or deformity. EXTREMITIES: No cyanosis, clubbing, or pedal edema. NEUROLOGICAL: Gross neurological examination did not reveal any focal deficits. SKIN: No rashes. - Labs CBC & Chem 7: 06/22/23 13:00 06/22/23 06:34 Labs: Abnormal Lab Results - Last 24 Hours (Table) 06/21/23 06/22/23 Range/Units 16:20 06:34 RBC 3.52 L (4.10-5.20) X 10*6/uL Hgb 9.0 L (12.0-15.0) d/dL Hct 28.6 L (37.2-46.3) % MCH 25.6 L (27.0-32.0) pg MCHC 31.5 L (32.0-37.0) d/dL RDW 17.5 H (11.5-14.5) % Plt Count 495 H (140-440) X 10*3/uL MPV 9.0 L (9.5-12.2) FL Plasma Lactic Acid [place] 0.6 L (0.7-2.0) mmol/L Assessment and Plan Assessment: 1. Abdominal pain/pancolitis - Patient has been kept nothing by mouth; IV fluid hydration - Patient is currently afebrile and white blood count is within normal limit - Currently on Unasyn 1.5 g IV every 8 hours - Consult surgery 2. Hyponatremia; patient remains on IV fluids in form of normal saline at a rate of 75 mL an hour; we'll monitor strict KAE's, serum and urine osmolality with urine sodium levels, daily weights; nephrology on board 3. Filling defect urinary bladder; we will consult urology 4. Stage II pressure ulcer on sacrum present on admission; local wound care 5. Protein calorie malnutrition 6. History of atrial fibrillation; anticoagulated with Xarelto 20 mg daily; continue with metoprolol 50 mg daily for rate control 7. Unsustained V. tach; metoprolol 50 mg daily 8. Chronic hypoxic respiratory failure secondary to COPD 9. Hypertension; metoprolol 50 mg daily 10. Hyperlipidemia; currently not on statin therapy 11. Seizure disorder; Keppra thousand milligrams twice a day
[2023-06-22] MEDS: QUEtiapine 400 MG TAB PO SCH (20:09)
[2023-06-23] MEDS: MORPHINE SULFATE 4 MG/ML SYRINGE IV PRN ×5 (03:49→20:28)
[2023-06-23] MEDS: SODIUM CHLORIDE 0.9% 1,000 ML IV SCH (05:56)
[2023-06-23] MEDS: FORMOTEROL FUMARATE 20 MCG/2 ML NEBU INHALATION SCH ×2 (07:51→20:52)
[2023-06-23] MEDS: IPRATROPIUM-ALBUTEROL 3 ML NEB INHALATION SCH ×4 (07:52→20:32)
[2023-06-23] MEDS: AMPICILLIN-SULBACTAM 1.5 GM in SODIUM CHLORIDE 0.9% 50 ML IVPB SCH ×2 (08:25→15:53)
[2023-06-23] MEDS: GABAPENTIN 300 MG CAP PO SCH ×3 (08:25→20:27)
[2023-06-23] MEDS: levETIRAcetam 500 MG TAB PO SCH ×2 (08:25→20:27)
[2023-06-23] MEDS: PANTOPRAZOLE 40 MG/10 ML VIAL IV SCH ×2 (08:26→20:28)
[2023-06-23] MEDS: FLUTICASONE 50MCG/SPRAY NASAL 16GM EA NOSTRIL SCH (08:26)
[2023-06-23] MEDS: METOPROLOL SUCCINATE (ER) 50 MG TAB.ER.24H PO SCH (08:26)
--- NOTE | 2023-06-23 09:53 | P.PN ---
Progress Note - Text Progress Note Date: 06/23/23 Patient states she's requesting Morty. On exam vital signs appear stable. Abdomen is soft there is minimal tenderness. There is no rebound or guarding. Colitis. Related to Crohn's patient will have her diet advanced. She'll be observed closely. We will plan for outpatient repair of her hiatal hernia.
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
[2023-06-23 10:28] LABS: Basophils # (A) 0.05 X 10*3/uL (0.00-0.10); Eosinophils # (A) 0.19 X 10*3/uL (0.04-0.35); Eosinophils % (A) 3.8 %; HCT 23.9 % (37.2-46.3); HGB 7.6 d/dL (12.0-15.0); Lymphocytes # (A) 2.31 X 10*3/uL (0.90-5.00); Lymphocytes % (A) 46.1 %; MCH 26.3 pg (27.0-32.0); MCHC 31.8 d/dL (32.0-37.0); MCV 82.7 FL (80.0-97.0); Mean Platelet Volume 8.6 FL (9.5-12.2); Monocytes # (A) 0.56 X 10*3/uL (0.20-1.00); Monocytes % (A) 11.2 %; NRBC Per 100 WBC 0 X 10*3/uL (0.00-0.01); Neutrophils # (A) 1.87 X 10*3/uL (1.80-7.70); Neutrophils % (A) 37.3 %; Platelet Count 428 X 10*3/uL (140-440); RBC 2.89 X 10*6/uL (4.10-5.20); RDW 17.8 % (11.5-14.5); WBC 5.01 X 10*3/uL (4.50-10.00)
[2023-06-23 10:43] LABS: Blood Urea Nitrogen 4.2 mg/dL (9.0-27.0); Calcium 7.1 mg/dL (8.7-10.3); Chloride 105 mmol/L (96-109); Glucose 83 mg/dL (70-110); Potassium 4.3 mmol/L (3.5-5.5); Sodium 140 mmol/L (135-145)
[2023-06-23] MEDS: RIVAROXABAN 20 MG TAB PO SCH (17:30)
--- NOTE | 2023-06-23 17:50 | P.PN ---
Subjective Progress Note Date: 06/23/23 63-year-old female presenting to the emergency department with concerns with nausea vomiting. Onset was middle the night. Patient last vomited couple hours ago. Patient questions if emesis was red or brown. No history of similar symptoms previous to. Patient does have some discomfort of her upper abdomen and still feels nauseated. Patient does have a distant history of alcohol abuse. Patient unclear if there is any history of liver problems. Meme completed in ED disease a WBC of 6.8, hemoglobin of 9.7, platelet count of 433, sodium 126, potassium 4.6, BUN/creatinine of 13/0.35 CT abdomen and pelvis reveals nonspecific infectious or inflammatory weaver colitis with moderate inflammatory changes; filling defect along the posterior wall of bladder 06/23/2023 Patient is seen and evaluated resting in bed; report some improvement in abdominal pain; wants diet to be advanced Vital signs are reviewed and stable with temperature of 98.7, pulse 90, respiration 14 blood pressure 1/62 with O2 saturation 95% on room air Lab review shows WBC 5.01, hemoglobin trending down from 9.8 yesterday down to 7.6, platelet count of 428, sodium 140, potassium 4.3, BUN/creatinine of 4.2/0.4, pro-calcitonin 0.05 -- No overt bleeding; patient remains on anticoagulation therapy; currently on Protonix 40 mg daily which will be escalated to a twice a day dosing; order stool occult blood; monitor H&H closely; further recommendations pending results - Urology on board for urinary retention and bladder wall filling defect; recommended to discontinue Griffin catheter prior to discharge; patient is recommended outpatient follow-up with urology for cystoscopy - Gen. surgery recommending to start patient on diet and slowly advance as tolerated Objective - Vital Signs Vital signs: Vital Signs Temp 97.7 F 06/23/23 08:14 Pulse 85 06/23/23 08:14 Resp 16 06/23/23 08:14 BP 117/71 06/23/23 08:14 Pulse Ox 98 06/23/23 08:14 FiO2 Intake & Output 06/22/23 06/23/23 06/23/23 18:59 06:59 18:59 Intake Total 480 Output Total 3000 400 Balance -2520 -400 Weight 49.895 kg Intake: Oral 480 Output: Urine 3000 400 Uretheral (Griffin) 2550 Other: Voiding Method Indwelling Catheter - Exam PHYSICAL EXAMINATION: GENERAL: The patient is alert and oriented x3, not in any acute distress. Well developed, well nourished. HEENT: Pupils are round and equally reacting to light. EOMI. No scleral icterus. No conjunctival pallor. Normocephalic, atraumatic. No pharyngeal erythema. No thyromegaly. CARDIOVASCULAR: S1 and S2 present. No murmurs, rubs, or gallops. PULMONARY: Chest is clear to auscultation, no wheezing or crackles. ABDOMEN: Soft, nontender, nondistended, normoactive bowel sounds. No palpable organomegaly. MUSCULOSKELETAL: No joint swelling or deformity. EXTREMITIES: No cyanosis, clubbing, or pedal edema. NEUROLOGICAL: Gross neurological examination did not reveal any focal deficits. SKIN: No rashes. - Labs CBC & Chem 7: 06/23/23 05:55 06/23/23 05:55 Labs: Abnormal Lab Results - Last 24 Hours (Table) 06/22/23 06/22/23 06/23/23 Range/Units 06:34 13:00 05:55 RBC 3.68 L (3.80-5.40) m/uL Hgb 9.8 L (11.4-16.0) gm/dL Hct 30.4 L (34.0-46.0) % MCH (27.0-32.0) pg MCHC (32.0-37.0) d/dL RDW 17.5 H (11.5-15.5) % Plt Count 600 H (150-450) k/uL MPV (9.5-12.2) FL BUN 6.5 L 4.2 L (9.0-27.0) mg/dL Creatinine 0.4 L 0.4 L (0.6-1.5) mg/dL BUN/Creatinine Ratio 10.50 L (12.00-20.00) Ratio Calcium 7.1 L (8.7-10.3) mg/dL Total Bilirubin <0.2 L (0.3-1.2) mg/dL Total Protein 5.7 L (6.2-8.2) d/dL Albumin 3.2 L (3.8-4.9) d/dL Albumin/Globulin Ratio 1.28 L (1.60-3.17) Ratio 06/23/23 Range/Units 05:55 RBC 2.89 L (3.80-5.40) m/uL Hgb 7.6 L (11.4-16.0) gm/dL Hct 23.9 L (34.0-46.0) % MCH 26.3 L (27.0-32.0) pg MCHC 31.8 L (32.0-37.0) d/dL RDW 17.8 H (11.5-15.5) % Plt Count (150-450) k/uL MPV 8.6 L (9.5-12.2) FL BUN (9.0-27.0) mg/dL Creatinine (0.6-1.5) mg/dL BUN/Creatinine Ratio (12.00-20.00) Ratio Calcium (8.7-10.3) mg/dL Total Bilirubin (0.3-1.2) mg/dL Total Protein (6.2-8.2) d/dL Albumin (3.8-4.9) d/dL Albumin/Globulin Ratio (1.60-3.17) Ratio Microbiology - Last 24 Hours (Table) 06/21/23 16:20 Blood Culture - Preliminary Blood 06/21/23 16:05 Blood Culture - Preliminary Blood Assessment and Plan Assessment: 1. Abdominal pain/pancolitis - Patient has been kept nothing by mouth; IV fluid hydration - Patient is currently afebrile and white blood count is within normal limit - Currently on Unasyn 1.5 g IV every 8 hours - Consult surgery 2. Hyponatremia; patient remains on IV fluids in form of normal saline at a rate of 75 mL an hour; we'll monitor strict KAE's, serum and urine osmolality with urine sodium levels, daily weights; nephrology on board 3. Filling defect urinary bladder; we will consult urology 4. Stage II pressure ulcer on sacrum present on admission; local wound care 5. Protein calorie malnutrition 6. History of atrial fibrillation; anticoagulated with Xarelto 20 mg daily; continue with metoprolol 50 mg daily for rate control 7. Unsustained V. tach; metoprolol 50 mg daily 8. Chronic hypoxic respiratory failure secondary to COPD 9. Hypertension; metoprolol 50 mg daily 10. Hyperlipidemia; currently not on statin therapy 11. Seizure disorder; Keppra thousand milligrams twice a day
[2023-06-23 18:44] LABS: Anisocytosis Slight; HCT 25.1 % (34.0-46.0); MCHC 31.1 g/dL (31.0-37.0); MCV 83.6 fL (80.0-100.0); Mean Platelet Volume 7.5; Platelet Count 427 k/uL (150-450); RDW 18.1 % (11.5-15.5); WBC 5.9 k/uL (3.8-10.6)
[2023-06-23 18:46] LABS: HGB 7.8 gm/dL (11.4-16.0)
[2023-06-23] MEDS: QUEtiapine 400 MG TAB PO SCH (20:28)
[2023-06-24] MEDS: AMPICILLIN-SULBACTAM 1.5 GM in SODIUM CHLORIDE 0.9% 50 ML IVPB SCH ×4 (00:31→23:22)
[2023-06-24] MEDS: MORPHINE SULFATE 4 MG/ML SYRINGE IV PRN ×4 (00:31→13:27)
[2023-06-24] MEDS: SODIUM CHLORIDE 0.9% 1,000 ML IV SCH ×3 (01:42→17:38)
[2023-06-24] MEDS: FORMOTEROL FUMARATE 20 MCG/2 ML NEBU INHALATION SCH ×2 (08:06→19:57)
[2023-06-24] MEDS: IPRATROPIUM-ALBUTEROL 3 ML NEB INHALATION SCH ×4 (08:06→19:57)
[2023-06-24] MEDS: PANTOPRAZOLE 40 MG/10 ML VIAL IV SCH ×2 (08:15→20:11)
[2023-06-24] MEDS: METOPROLOL SUCCINATE (ER) 50 MG TAB.ER.24H PO SCH (09:17)
[2023-06-24] MEDS: GABAPENTIN 300 MG CAP PO SCH ×3 (09:17→20:11)
[2023-06-24] MEDS: levETIRAcetam 500 MG TAB PO SCH ×2 (09:17→20:11)
[2023-06-24] MEDS: FLUTICASONE 50MCG/SPRAY NASAL 16GM EA NOSTRIL SCH (09:18)
[2023-06-24 14:03] LABS: Basophils # (A) 0.05 X 10*3/uL (0.00-0.10); Basophils % (A) 0.9 %; Eosinophils # (A) 0.22 X 10*3/uL (0.04-0.35); Eosinophils % (A) 4.1 %; HCT 24.6 % (37.2-46.3); HGB 7.7 d/dL (12.0-15.0); Lymphocytes # (A) 2.46 X 10*3/uL (0.90-5.00); Lymphocytes % (A) 45.9 %; MCH 26.2 pg (27.0-32.0); MCHC 31.3 d/dL (32.0-37.0); MCV 83.7 FL (80.0-97.0); Mean Platelet Volume 8.8 FL (9.5-12.2); Monocytes # (A) 0.47 X 10*3/uL (0.20-1.00); Monocytes % (A) 8.8 %; NRBC Per 100 WBC 0 X 10*3/uL (0.00-0.01); Neutrophils # (A) 2.13 X 10*3/uL (1.80-7.70); Neutrophils % (A) 39.7 %; Platelet Count 452 X 10*3/uL (140-440); RBC 2.94 X 10*6/uL (4.10-5.20); RDW 18.1 % (11.5-14.5); WBC 5.36 X 10*3/uL (4.50-10.00)
[2023-06-24 14:33] LABS: BUN/Creat Ratio 9.25 Ratio (12.00-20.00); Blood Urea Nitrogen 3.7 mg/dL (9.0-27.0); Calcium 8.3 mg/dL (8.7-10.3); Carbon Dioxide 26.4 mmol/L (21.6-31.8); Chloride 103 mmol/L (96-109); Glucose 76 mg/dL (70-110); Potassium 4.3 mmol/L (3.5-5.5); Sodium 138 mmol/L (135-145)
[2023-06-24 15:03] VITALS: BMI 16.7
--- NOTE | 2023-06-24 15:13 | P.PN ---
Subjective Progress Note Date: 06/24/23 CHIEF COMPLAINT: Pain colitis HISTORY OF PRESENT ILLNESS: Patient reports her abdominal pain and improving. She is requesting advancement of diet. She did have a loose bowel movement yesterday. Denies any nausea or vomiting. Patient still requiring IV pain medicine. Afebrile. WBC is 5.36 Hgb 7.7 platelets 452 PHYSICAL EXAM: VITAL SIGNS: Reviewed. GENERAL: Well-developed in no acute distress. HEENT: No sclera icterus. Extraocular movements grossly intact. Moist buccal mucosa. Head is atraumatic, normocephalic. ABDOMEN: Soft. Nondistended. Nontender. NEUROLOGIC: Alert and oriented. Cranial nerves II through XII grossly intact. ASSESSMENT: 1. Pancolitis likely related to patient's Crohn's 2. Moderate sized Hiatal hernia PLAN: -Advance diet to low fiber -Continue to monitor -Plan for outpatient repair of hiatal hernia -Medical management of Crohn's Physician Sales And Marketing Administrator note has been reviewed by physician. Signing provider agrees with the documented findings, assessment, and plan of care. Objective - Vital Signs Vital signs: Vital Signs Temp 98.5 F 06/24/23 13:24 Pulse 74 06/24/23 14:41 Resp 18 06/24/23 14:41 BP 121/72 06/24/23 13:24 Pulse Ox 99 06/24/23 13:24 FiO2 Intake & Output 06/23/23 06/24/23 06/24/23 18:59 06:59 18:59 Output Total 1000 1550 1000 Balance -1000 -1550 -1000 Weight 49.895 kg Output: Urine 1000 1550 1000 Other: Voiding Method Indwelling Catheter Indwelling Catheter # Bowel Movements 1 - Labs CBC & Chem 7: 06/24/23 07:31 06/24/23 07:31 Labs: Abnormal Lab Results - Last 24 Hours (Table) 06/23/23 06/24/23 06/24/23 Range/Units 18:30 07:31 07:31 RBC 3.00 L 2.94 L (3.80-5.40) m/uL Hgb 7.8 L D 7.7 L (11.4-16.0) gm/dL Hct 25.1 L 24.6 L (34.0-46.0) % MCH 26.2 L (27.0-32.0) pg MCHC 31.3 L (32.0-37.0) d/dL RDW 18.1 H 18.1 H (11.5-15.5) % Plt Count 452 H (140-440) X 10*3/uL MPV 8.8 L (9.5-12.2) FL BUN 3.7 L (9.0-27.0) mg/dL Creatinine 0.4 L (0.6-1.5) mg/dL BUN/Creatinine Ratio 9.25 L (12.00-20.00) Ratio Calcium 8.3 L (8.7-10.3) mg/dL Microbiology - Last 24 Hours (Table) 06/21/23 16:20 Blood Culture - Preliminary Blood 06/21/23 16:05 Blood Culture - Preliminary Blood
[2023-06-24] MEDS: HYDROcodone/APAP 5-325MG 1 EACH TAB PO PRN (15:50)
[2023-06-24] MEDS: RIVAROXABAN 20 MG TAB PO SCH (17:13)
[2023-06-24] MEDS: QUEtiapine 400 MG TAB PO SCH (20:11)
--- NOTE | 2023-06-25 01:53 | P.PN ---
Subjective Progress Note Date: 06/24/23 63-year-old female presenting to the emergency department with concerns with nausea vomiting. Onset was middle the night. Patient last vomited couple hours ago. Patient questions if emesis was red or brown. No history of similar symptoms previous to. Patient does have some discomfort of her upper abdomen and still feels nauseated. Patient does have a distant history of alcohol abuse. Patient unclear if there is any history of liver problems. Meme completed in ED disease a WBC of 6.8, hemoglobin of 9.7, platelet count of 433, sodium 126, potassium 4.6, BUN/creatinine of 13/0.35 CT abdomen and pelvis reveals nonspecific infectious or inflammatory weaver colitis with moderate inflammatory changes; filling defect along the posterior wall of bladder 06/23/2023 Patient is seen and evaluated resting in bed; report some improvement in abdominal pain; wants diet to be advanced Vital signs are reviewed and stable with temperature of 98.7, pulse 90, respiration 14 blood pressure 1/62 with O2 saturation 95% on room air Lab review shows WBC 5.01, hemoglobin trending down from 9.8 yesterday down to 7.6, platelet count of 428, sodium 140, potassium 4.3, BUN/creatinine of 4.2/0.4, pro-calcitonin 0.05 -- No overt bleeding; patient remains on anticoagulation therapy; currently on Protonix 40 mg daily which will be escalated to a twice a day dosing; order stool occult blood; monitor H&H closely; further recommendations pending results - Urology on board for urinary retention and bladder wall filling defect; recommended to discontinue Griffin catheter prior to discharge; patient is recommended outpatient follow-up with urology for cystoscopy - Gen. surgery recommending to start patient on diet and slowly advance as tolerated 06/24/2023 Patient seen in follow-up today being followed by general surgery along with urology. Urology has evaluated the patient recommending outpatient cystoscopy. Patient is asking for advancing diet as patient abdominal pain is improving and will monitor for tolerance along with pain management overnight and discuss possible discharge planning in the next 24 hours. Patient to remove indwelling Griffin catheter and evaluate for any further urinary retention. Patient is afebrile with no reported chest pain or shortness of breath. Patient does have chronic history of COPD which is stable. Encouraged to increase activity as tolerated. Will add oral pain medications and discontinue morphine. Discharge planning in the next 24 hours Review of systems: Constitutional: No reports of fatigue, fever, or chills Cardiovascular: No reports of chest pain or palpitations Respiratory: No reports of shortness of breath or cough GI: No reports of nausea, vomiting, or diarrhea, reports improvement in abdominal pain : Patient was having retention requiring indwelling Griffin catheter Neurovascular: reports of generalized weakness All medications have been reviewed PHYSICAL EXAMINATION: GENERAL: The patient is alert and oriented x3, thin built, Well developed, cachectic, elderly-appearing HEENT: Pupils are round and equally reacting to light. EOMI. No scleral icterus. No conjunctival pallor. Normocephalic, atraumatic. No pharyngeal erythema. No thyromegaly. CARDIOVASCULAR: S1 and S2 present. No murmurs, rubs, or gallops. PULMONARY: Diminished breath sounds bilaterally with no wheezing or rhonchi noted ABDOMEN: Soft, thin, nontender, nondistended, normoactive bowel sounds. No palpable organomegaly. MUSCULOSKELETAL: No joint swelling or deformity. EXTREMITIES: No cyanosis, clubbing, or pedal edema. NEUROLOGICAL: Gross neurological examination did not reveal any focal deficits. SKIN: No rashes. Assessment: -Abdominal pain secondary to pancolitis -Hyponatremia secondary to poor oral intake -Filling defect urinary bladder; will follow-up with urology outpatient -Stage II pressure ulcer on sacrum present on admission -Severe Protein calorie malnutrition with BMI of 16.7 -History of atrial fibrillation; anticoagulated with Xarelto , currently rate controlled -Chronic hypoxic respiratory failure secondary to COPD -History of Crohn's disease -Hypertension history -Hyperlipidemia -History of Seizure disorder Plan: Patient being followed by general surgery along with urology with no plans for surgical intervention at this time. Patient's diet is being advanced per general surgery and monitoring for tolerance. Patient reports improvement in abdominal pain Patient was seen and evaluated by urology recommending outpatient cystoscopy and removing Griffin for trial voiding as patient was retaining Increase activity as tolerated Will adjust pain medications and discontinue morphine Multiple complex medical issues, prognosis is guarded Discharge planning in the next 24 hours The impression and plan of care has been dictated by Angelita Diaz, Nurse Practitioner as directed. Dr. Aaron MD I have performed a history and examination and MDM of this patient, discussed the same with the dictator, and agree with the dictator's assessment and plan as written ,documented as a scribe. Based on total visit time, I have performed more than 50% of the visit. Objective - Vital Signs Vital signs: Vital Signs Temp 98.6 F 06/24/23 07:15 Pulse 86 06/24/23 07:15 Resp 18 06/24/23 07:15 BP 120/57 06/24/23 07:15 Pulse Ox 91 L 06/24/23 07:15 FiO2 Intake & Output 06/23/23 06/24/23 06/24/23 18:59 06:59 18:59 Output Total 1000 1550 1000 Balance -1000 -1550 -1000 Output: Urine 1000 1550 1000 Other: Voiding Method Indwelling Catheter Indwelling Catheter # Bowel Movements 1 - Labs CBC & Chem 7: 06/24/23 07:31 06/24/23 07:31 Labs: Abnormal Lab Results - Last 24 Hours (Table) 06/23/23 Range/Units 18:30 RBC 3.00 L (3.80-5.40) m/uL Hgb 7.8 L D (11.4-16.0) gm/dL Hct 25.1 L (34.0-46.0) % RDW 18.1 H (11.5-15.5) % Microbiology - Last 24 Hours (Table) 06/21/23 16:20 Blood Culture - Preliminary Blood 06/21/23 16:05 Blood Culture - Preliminary Blood
[2023-06-25 03:04] VITALS: RESP 18
[2023-06-25] MEDS: GABAPENTIN 300 MG CAP PO SCH (08:29)
[2023-06-25] MEDS: METOPROLOL SUCCINATE (ER) 50 MG TAB.ER.24H PO SCH (08:29)
[2023-06-25] MEDS: HYDROcodone/APAP 5-325MG 1 EACH TAB PO PRN (08:29)
[2023-06-25] MEDS: levETIRAcetam 500 MG TAB PO SCH ×2 (08:32→08:36)
[2023-06-25] MEDS: AMPICILLIN-SULBACTAM 1.5 GM in SODIUM CHLORIDE 0.9% 50 ML IVPB SCH (08:34)
[2023-06-25] MEDS: PANTOPRAZOLE 40 MG/10 ML VIAL IV SCH (08:35)
[2023-06-25] MEDS: FLUTICASONE 50MCG/SPRAY NASAL 16GM EA NOSTRIL SCH (08:35)
[2023-06-25] MEDS: FORMOTEROL FUMARATE 20 MCG/2 ML NEBU INHALATION SCH (09:01)
[2023-06-25] MEDS: IPRATROPIUM-ALBUTEROL 3 ML NEB INHALATION SCH ×2 (09:01→11:42)
[2023-06-25 09:05] VITALS: PULSE 80
[2023-06-25 12:51] VITALS: BP 138/82; TEMP 99
--- NOTE | 2023-06-25 13:36 | P.PN ---
Subjective Progress Note Date: 06/25/23 CHIEF COMPLAINT: Pain colitis HISTORY OF PRESENT ILLNESS: Patient reports her abdominal pain and improving. He did have diarrhea. She's tolerated diet. Afebrile. WBC 5.36. Medicine service planning discharge today. PHYSICAL EXAM: VITAL SIGNS: Reviewed. GENERAL: Well-developed in no acute distress. HEENT: No sclera icterus. Extraocular movements grossly intact. Moist buccal mucosa. Head is atraumatic, normocephalic. ABDOMEN: Soft. Nondistended. NEUROLOGIC: Alert and oriented. Cranial nerves II through XII grossly intact. ASSESSMENT: 1. Pancolitis likely related to patient's Crohn's 2. Moderate sized Hiatal hernia PLAN: -Continue low-fiber diet -Plan for outpatient repair of hiatal hernia -Patient scheduled for discharge today Physician Wire Charger note has been reviewed by physician. Signing provider agrees with the documented findings, assessment, and plan of care. Objective - Vital Signs Vital signs: Vital Signs Temp 99 F 06/25/23 12:45 Pulse 80 06/25/23 12:45 Resp 18 06/25/23 12:45 BP 138/82 06/25/23 12:45 Pulse Ox 99 06/25/23 09:03 FiO2 Intake & Output 06/24/23 06/25/23 06/25/23 18:59 06:59 18:59 Output Total 1000 Balance -1000 Weight 49.895 kg Output: Urine 1000 Other: Voiding Method Indwelling Catheter Diaper Diaper # Voids 2 1 # Bowel Movements 1 1 1 - Labs CBC & Chem 7: 06/24/23 07:31 06/24/23 07:31 Labs: Abnormal Lab Results - Last 24 Hours (Table) 06/24/23 06/24/23 Range/Units 07:31 07:31 RBC 2.94 L (4.10-5.20) X 10*6/uL Hgb 7.7 L (12.0-15.0) d/dL Hct 24.6 L (37.2-46.3) % MCH 26.2 L (27.0-32.0) pg MCHC 31.3 L (32.0-37.0) d/dL RDW 18.1 H (11.5-14.5) % Plt Count 452 H (140-440) X 10*3/uL MPV 8.8 L (9.5-12.2) FL BUN 3.7 L (9.0-27.0) mg/dL Creatinine 0.4 L (0.6-1.5) mg/dL BUN/Creatinine Ratio 9.25 L (12.00-20.00) Ratio Calcium 8.3 L (8.7-10.3) mg/dL Microbiology - Last 24 Hours (Table) 06/21/23 16:20 Blood Culture - Preliminary Blood 06/21/23 16:05 Blood Culture - Preliminary Blood
[2023-06-25] MEDS: SODIUM CHLORIDE 0.9% 1,000 ML IV SCH (14:31)
--- NOTE | 2023-06-26 15:25 | P.DS ---
Providers Date of admission: 06/21/23 14:31 Expected date of discharge: 06/25/23 Attending physician: Hoang Hall MD Consults: 06/21/23 14:30 Consult Physician Routine Consulting Provider: Orville Gaspar Consult Reason/Comments: colitis Do you want consulting provider notified?: Yes 06/22/23 18:59 Consult Physician Routine Consulting Provider: Yony Singh Consult Reason/Comments: Filling defect bladder wall Do you want consulting provider notified?: Yes Primary care physician: Daksha Steiner Hospital Course: Final diagnosis -Abdominal pain secondary to pancolitis -Hyponatremia secondary to poor oral intake -Filling defect urinary bladder; will follow-up with urology outpatient -Stage II pressure ulcer on sacrum present on admission -Severe Protein calorie malnutrition with BMI of 16.7 -History of atrial fibrillation; anticoagulated with Xarelto , currently rate controlled -Chronic hypoxic respiratory failure secondary to COPD -History of COPD, not in exacerbation -History of Crohn's disease -Hypertension history -Hyperlipidemia -History of Seizure disorder Discharge disposition Patient is being discharged in a stable condition with guarded prognosis to home. Patient will follow-up with Dr. Obi Walker in the outpatient setting upon discharge. Patient is to continue with current diet and close outpatient follow-up with GI along with primary care provider and pulmonary as scheduled. Total time taken is greater than 35 minutes. Hospital course This is a 63-year-old female who was recently admitted with abdominal pain decreased appetite and admitted for pancolitis. Patient with history of Crohn's colitis being closely monitored patient was evaluated by surgery with no plans for intervention at this time slowly advanced diet and patient is tolerating. Patient will be scheduled to discharge home and continue current diet and slowly advance as tolerated. Patient to follow-up with GI in the outpatient setting. Patient has had multiple hospitalizations and frequent ER visits and is extremely noncompliant in the outpatient setting. Patient has been instructed to follow-up with GI as soon as possible and be compliant with medications. Currently no reports of chest pain, shortness of breath, or palpitations. Patient is afebrile. No reports of nausea or vomiting and patient is tolerating diet. Patient will be discharged home today. Guarded prognosis and high risk for readmissions and patient has had multiple hospitalizations and ER visits due to her noncompliance. Physical exam: Gen: This is a 63-year-old female who is awake, alert and oriented 3, thin built, elderly appearing, cachectic HEENT: Head is atraumatic, normocephalic. Pupils equal, round. Sclerae is anicteric. NECK: Supple. No JVD. No lymphadenopathy. No thyromegaly. LUNGS: Diminished breath sounds bilaterally with no wheezing, coarse rhonchi. No intercostal retractions. HEART: Regular rate and rhythm. No murmur. ABDOMEN: Soft. Bowel sounds are present. No masses. No tenderness. EXTREMITIES: No pedal edema. No calf tenderness. NEUROLOGICAL: Patient is awake, alert and oriented x3. Cranial nerves 2 through 12 are grossly intact. Please refer to medication reconciliation sheet for a list of medications. The impression and plan of care has been dictated by Angelita Diaz, Nurse Practitioner as directed. Dr. Aaron MD I have performed a history and examination and MDM of this patient, discussed the same with the dictator, and agree with the dictator's assessment and plan as written ,documented as a scribe. Based on total visit time, I have performed more than 50% of the visit. Patient Condition at Discharge: Fair Plan - Discharge Summary Discharge Rx Participant: No New Discharge Prescriptions: Continue Glycopyrrolate/Formoterol Fum [Bevespi Aerosphere Inhaler] 2 puff INHALATION RT-BID@0800,1700 Fluticasone Nasal [place] [Flonase Nasal [place]] 1 spr EA NOSTRIL DAILY@0800 QUEtiapine [SEROquel] 400 mg PO HS 30 Days #30 tab levETIRAcetam [Keppra] 1,000 mg PO BID@0800,2100 bisacodyL [Dulcolax] 10 mg RECTAL DAILY PRN PRN Reason: Constipation Na Phos,M-B/Na Phos,Di-Ba [Fleet Adult] 133 ml RECTAL DAILY PRN PRN Reason: Constipation Metoprolol Succinate (ER) [Toprol XL] 50 mg PO DAILY@0800 Rivaroxaban [Xarelto] 20 mg PO DAILY@1700 Gabapentin [Neurontin] 300 mg PO TID@0800,1400,2100 Pantoprazole Sodium [Protonix] 40 mg PO HS Albuterol Sulfate [Albuterol Sulfate Hfa] 2 puff INHALATION RT-Q6H PRN #1 each PRN Reason: Shortness Of Breath Ipratropium-Albuterol Nebulize [Duoneb 0.5 mg-3 mg/3 ml Soln] 3 ml INHALATION RT-QID #100 each Acetaminophen Tab [Tylenol] 650 mg PO Q4H PRN PRN Reason: general discomfort Magnesium Hydroxide [Milk of Magnesia Concentrate] 7,200 mg PO Q2D PRN PRN Reason: No BM for 2 days Discontinued metroNIDAZOLE [Flagyl] 500 mg PO TID@0800,1400,2099 Sulfamethox-Tmp 800-160Mg [Bactrim DS 800-160 mg] 1 tab PO BID@0800,2099 No Action predniSONE 50 mg PO DAILY 5 Days #5 tab Discharge Medication List Glycopyrrolate/Formoterol Fum [Bevespi Aerosphere Inhaler] 2 puff INHALATION RT- BID@0800,1700 11/24/19 [History] Fluticasone Nasal [place] [Flonase Nasal [place]] 1 spr EA NOSTRIL DAILY@0800 03/27/20 [History] Albuterol Sulfate [Albuterol Sulfate Hfa] 2 puff INHALATION RT-Q6H PRN #1 each 10/04/22 [Rx] Pantoprazole Sodium [Protonix] 40 mg PO HS 10/04/22 [History] QUEtiapine [SEROquel] 400 mg PO HS 30 Days #30 tab 10/04/22 [Rx] Ipratropium-Albuterol Nebulize [Duoneb 0.5 mg-3 mg/3 ml Soln] 3 ml INHALATION RT-QID #100 each 02/01/23 [Rx] levETIRAcetam [Keppra] 1,000 mg PO BID@0800,2100 03/20/23 [History] Acetaminophen Tab [Tylenol] 650 mg PO Q4H PRN 06/21/23 [History] Gabapentin [Neurontin] 300 mg PO TID@0800,1400,209906/21/23 [History] Magnesium Hydroxide [Milk of Magnesia Concentrate] 7,200 mg PO Q2D PRN 06/21/23 [History] Metoprolol Succinate (ER) [Toprol XL] 50 mg PO DAILY@0800 06/21/23 [History] Na Phos,M-B/Na Phos,Di-Ba [Fleet Adult] 133 ml RECTAL DAILY PRN 06/21/23 [History] Rivaroxaban [Xarelto] 20 mg PO DAILY@1700 06/21/23 [History] bisacodyL [Dulcolax] 10 mg RECTAL DAILY PRN 06/21/23 [History] predniSONE 50 mg PO DAILY 5 Days #5 tab 06/25/23 [Rx] Follow up Appointment(s)/Referral(s): Camilo Ortiz MD [STAFF PHYSICIAN] - 1 Week (Cystoscopy office will call with appointment time) Aby Younger MD [STAFF PHYSICIAN] - 1 Week (Please call office and schedule appointment) [facility], [NON-STAFF] - As Needed Daksha Steiner MD [Primary Care Provider] - 07/02/23 3:00 pm Orville Gaspar MD [STAFF PHYSICIAN] - 1 Week Patient Instructions/Handouts: Colitis (ED) Discharge Disposition: HOME WITH HOME HEALTH SERVICES
== END 2023-06-25 13:25 | disposition home health service (06) | DRG 385 ==
LOC: EC 09:41 → 4SSUR 14:31
PROVIDERS: ADMIT Internal Medicine; ATTEND Internal Medicine
DX: K50.90 Crohn's disease, unspecified, without complications (principal); E43 Unspecified severe protein-calorie malnutrition; E87.1 Hypo-osmolality and hyponatremia; Z68.1 Body mass index [BMI] 19.9 or less, adult; J96.11 Chronic respiratory failure with hypoxia; I47.20 Ventricular tachycardia, unspecified; L89.152 Pressure ulcer of sacral region, stage 2; K44.9 Diaphragmatic hernia without obstruction or gangrene; G40.909 Epilepsy, unspecified, not intractable, without status epilepticus; E78.5 Hyperlipidemia, unspecified; I48.91 Unspecified atrial fibrillation; R33.9 Retention of urine, unspecified; N32.9 Bladder disorder, unspecified; J44.9 Chronic obstructive pulmonary disease, unspecified; I25.10 Atherosclerotic heart disease of native coronary artery without angina pectoris; K21.9 Gastro-esophageal reflux disease without esophagitis; I10 Essential (primary) hypertension; M19.90 Unspecified osteoarthritis, unspecified site; F10.11 Alcohol abuse, in remission; F41.9 Anxiety disorder, unspecified; F31.9 Bipolar disorder, unspecified; F17.200 Nicotine dependence, unspecified, uncomplicated; Z28.310 Unvaccinated for COVID-19; Z88.1 Allergy status to other antibiotic agents; Z88.8 Allergy status to other drugs, medicaments and biological substances; Z86.73 Personal history of transient ischemic attack (TIA), and cerebral infarction without residual deficits; Z79.899 Other long term (current) drug therapy; Z79.01 Long term (current) use of anticoagulants; Z87.01 Personal history of pneumonia (recurrent)
CPT/HCPCS: 36415; 51702; 74018; 74174; 80048; 80053; 82150; 83605; 83690; 83735; 84145; 85025; 85027; 85610; 85730; 86850; 86900; 86901; 87040; 93005; 94640; 94760; 96361; 96365; 96366; 96375; 96376; 99285

== ENCOUNTER 2023-06-25 16:55 | Emergency (ER) | payer MEDICARE, OTHER ==
[2023-06-25 17:42] VITALS: TEMP 97.6
[2023-06-25] MEDS ORDERED: IPRATROPIUM-ALBUTEROL 3 ML NEB INHALATION STA (19:15)
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
[2023-06-25 22:24] LABS: Anisocytosis Slight; Basophils % (A) 0 %; Eosinophils # (A) 0.2 k/uL (0-0.7); Eosinophils % (A) 3 %; HCT 26.3 % (34.0-46.0); HGB 8.6 gm/dL (11.4-16.0); Lymphocytes # (A) 2.3 k/uL (1.0-4.8); Lymphocytes % (A) 31 %; MCHC 32.6 g/dL (31.0-37.0); Mean Platelet Volume 6.9; Monocytes # (A) 0.5 k/uL (0-1.0); Monocytes % (A) 7 %; Neutrophils # (A) 4.4 k/uL (1.3-7.7); Neutrophils % (A) 58 %; Platelet Count 479 k/uL (150-450); RBC 3.17 m/uL (3.80-5.40); RDW 18.8 % (11.5-15.5); WBC 7.6 k/uL (3.8-10.6)
[2023-06-25 22:35] LABS: INR 0.9 (<1.2); Prothrombin Time 9.6 sec (9.0-12.0)
[2023-06-25 22:36] LABS: Partial Thromboplastin Time 19.3 sec (22.0-30.0)
[2023-06-25 22:39] LABS: ALT 16 U/L (4-34); AST 26 U/L (14-36); African American GFR (CKD) >90 (>60 ml/min/1.73 sqM); Albumin 2.8 g/dL (3.5-5.0); Alkaline Phosphatase 54 U/L (38-126); Anion Gap 3 mmol/L; Blood Urea Nitrogen 14 mg/dL (7-17); Calcium 8.2 mg/dL (8.4-10.2); Carbon Dioxide 28 mmol/L (22-30); Chloride 104 mmol/L (98-107); Glucose 121 mg/dL (74-99); Non-African American GFR(CKD) >90 (>60 ml/min/1.73 sqM); Potassium 3.9 mmol/L (3.5-5.1); Sodium 135 mmol/L (137-145); Total Bilirubin 0.3 mg/dL (0.2-1.3); Total Protein 5.6 g/dL (6.3-8.2)
[2023-06-25 22:46] LABS: NT-Pro-B-Type Natriuretic Pept 502 pg/mL
--- NOTE | 2023-06-25 23:01 | XR ---
EXAMINATION TYPE: XR chest 2V DATE OF EXAM: 06/25/2023 COMPARISON: 06/12/2023 INDICATION: Difficulty breathing short of breath TECHNIQUE: Frontal and lateral views of the chest are obtained. FINDINGS: Patient is rotated to the right. The cardiomediastinal silhouette appears stable. Pulmonary vasculatu re is normal. No suspicious focal consolidation or infiltrate is evident.. IMPRESSION: 1. No acute pulmonary process.
[2023-06-25] MEDS ORDERED: DEXAMETHASONE SOD PHOSPHATE 10 MG/ML 1 ML VIAL IVP STA (23:35)
[2023-06-26 00:35] VITALS: BP 144/71; PULSE 78; RESP 18
== END 2023-06-26 00:35 | disposition home or self-care (01) ==
LOC: EC 16:55
DX: R06.00 Dyspnea, unspecified (principal); F17.200 Nicotine dependence, unspecified, uncomplicated; I48.91 Unspecified atrial fibrillation; I25.10 Atherosclerotic heart disease of native coronary artery without angina pectoris; J44.9 Chronic obstructive pulmonary disease, unspecified; E78.5 Hyperlipidemia, unspecified; I10 Essential (primary) hypertension; M19.90 Unspecified osteoarthritis, unspecified site; F41.9 Anxiety disorder, unspecified; F31.9 Bipolar disorder, unspecified; F12.90 Cannabis use, unspecified, uncomplicated; Z88.8 Allergy status to other drugs, medicaments and biological substances; Z79.01 Long term (current) use of anticoagulants; Z79.899 Other long term (current) drug therapy; Z20.822 Contact with and (suspected) exposure to COVID-19
CPT/HCPCS: 36415; 71046; 80053; 83605; 83880; 84484; 85025; 85610; 85730; 87636; 93005; 94640; 96374; 99285; 99406

== ENCOUNTER 2023-06-27 11:02 | Emergency (ER) | payer MEDICARE, OTHER ==
[2023-06-27 12:52] LABS: Anisocytosis Slight; Basophils % (A) 0 %; Eosinophils # (A) 0.1 k/uL (0-0.7); Eosinophils % (A) 1 %; HCT 29.3 % (34.0-46.0); HGB 9.7 gm/dL (11.4-16.0); Lymphocytes # (A) 1.9 k/uL (1.0-4.8); Lymphocytes % (A) 28 %; MCH 27.2 pg (25.0-35.0); MCHC 33.1 g/dL (31.0-37.0); MCV 82.1 fL (80.0-100.0); Microcytosis Slight; Monocytes # (A) 0.5 k/uL (0-1.0); Monocytes % (A) 8 %; Neutrophils # (A) 4.5 k/uL (1.3-7.7); Neutrophils % (A) 63 %; Platelet Count 551 k/uL (150-450); RBC 3.57 m/uL (3.80-5.40); RDW 19.6 % (11.5-15.5); WBC 7.1 k/uL (3.8-10.6)
--- NOTE | 2023-06-27 13:02 | XR ---
EXAMINATION TYPE: XR chest 2V DATE OF EXAM: 06/27/2023 COMPARISON: 06/26/2023 TECHNIQUE: PA and lateral views submitted. HISTORY: Chest pain FINDINGS: The lungs are clear and there is no pneumothorax, pleural effusion, or focal pneumonia. Heart size normal and no overt failure. Osseous structures demonstrate hypertrophic and degenerative changes of the spine. Hyperinflation of the lungs. Chronic appearing compression fracture mid thoracic spine sta ble from x-ray of 06/25/2023. IMPRESSION: 1. No acute process. Diffuse emphysematous changes.
[2023-06-27 13:04] LABS: ALT 18 U/L (4-34); AST 35 U/L (14-36); African American GFR (CKD) >90 (>60 ml/min/1.73 sqM); Albumin 3.4 g/dL (3.5-5.0); Alkaline Phosphatase 47 U/L (38-126); Anion Gap 6 mmol/L; Blood Urea Nitrogen 9 mg/dL (7-17); Carbon Dioxide 30 mmol/L (22-30); Chloride 101 mmol/L (98-107); Glucose 112 mg/dL (74-99); Lipase 248 U/L (23-300); Magnesium 1.4 mg/dL (1.6-2.3); Non-African American GFR(CKD) >90 (>60 ml/min/1.73 sqM); Potassium 3.7 mmol/L (3.5-5.1); Sodium 137 mmol/L (137-145); Total Bilirubin 0.5 mg/dL (0.2-1.3); Total Protein 6.7 g/dL (6.3-8.2)
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
[2023-06-27 14:52] VITALS: BP 145/87; PULSE 97; RESP 18; TEMP 98.7
== END 2023-06-27 14:51 | disposition home or self-care (01) ==
LOC: EC 11:02
DX: R06.02 Shortness of breath (principal); I10 Essential (primary) hypertension; I25.10 Atherosclerotic heart disease of native coronary artery without angina pectoris; I48.91 Unspecified atrial fibrillation; J44.9 Chronic obstructive pulmonary disease, unspecified; K21.9 Gastro-esophageal reflux disease without esophagitis; F41.9 Anxiety disorder, unspecified; F31.9 Bipolar disorder, unspecified; F17.200 Nicotine dependence, unspecified, uncomplicated; F12.90 Cannabis use, unspecified, uncomplicated; F14.90 Cocaine use, unspecified, uncomplicated; Z86.73 Personal history of transient ischemic attack (TIA), and cerebral infarction without residual deficits; Z79.01 Long term (current) use of anticoagulants; Z79.899 Other long term (current) drug therapy; Z79.51 Long term (current) use of inhaled steroids; Z88.1 Allergy status to other antibiotic agents; Z88.8 Allergy status to other drugs, medicaments and biological substances
CPT/HCPCS: 36415; 71046; 80053; 83690; 83735; 85025; 93005; 99285

== ENCOUNTER 2023-06-27 19:45 | Inpatient (IN) | payer MEDICARE, OTHER ==
[2023-06-27] MEDS ORDERED: NALOXONE 0.4 MG/ML 1 ML VIAL IV PRN (22:12)
[2023-06-27] MEDS ORDERED: MAGNESIUM HYDROXIDE 2,400 MG/30 ML CUP PO PRN (22:15)
[2023-06-27] MEDS ORDERED: ALBUTEROL NEBULIZED 2.5 MG/3 ML INHALATION PRN (22:15)
[2023-06-27] MEDS ORDERED: bisacodyL 10 MG SUPP RECTAL PRN (22:15)
[2023-06-27] MEDS ORDERED: DICYCLOMINE 10 MG CAP PO STA (22:17)
[2023-06-27] MEDS ORDERED: HYDROcodone/APAP 5-325MG 1 EACH TAB PO STA (22:17)
[2023-06-27] MEDS ORDERED: MAGNESIUM SULFATE-D5W PMX 1 GM in DEXTROSE/WATER 1 100ML.BAG IVPB ONE (23:28)
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
[2023-06-28] MEDS ORDERED: HEPARIN SODIUM,PORCINE 5,000 UNIT/ML 1 ML VIAL SQ SCH
[2023-06-28] MEDS: ACETAMINOPHEN TAB 325 MG TAB PO PRN ×2 (02:45→14:28)
[2023-06-28 06:28] LABS: African American GFR (CKD) >90 (>60 ml/min/1.73 sqM); Anion Gap 9 mmol/L; Blood Urea Nitrogen 6 mg/dL (7-17); Calcium 8.7 mg/dL (8.4-10.2); Carbon Dioxide 23 mmol/L (22-30); Chloride 105 mmol/L (98-107); Glucose 54 mg/dL (74-99); Non-African American GFR(CKD) >90 (>60 ml/min/1.73 sqM); Potassium 3.4 mmol/L (3.5-5.1); Sodium 137 mmol/L (137-145)
[2023-06-28 06:40] LABS: Glucose,Whole Blood 114 mg/dL (70-110)
[2023-06-28 06:44] LABS: Anisocytosis Slight; Basophils % (A) 0 %; Eosinophils # (A) 0.2 k/uL (0-0.7); Eosinophils % (A) 2 %; HCT 27.3 % (34.0-46.0); HGB 8.9 gm/dL (11.4-16.0); Lymphocytes # (A) 3.4 k/uL (1.0-4.8); Lymphocytes % (A) 48 %; MCH 27.5 pg (25.0-35.0); MCHC 32.5 g/dL (31.0-37.0); MCV 84.7 fL (80.0-100.0); Monocytes # (A) 0.5 k/uL (0-1.0); Monocytes % (A) 8 %; Neutrophils # (A) 2.9 k/uL (1.3-7.7); Neutrophils % (A) 40 %; Platelet Count 459 k/uL (150-450); RBC 3.23 m/uL (3.80-5.40); RDW 19.5 % (11.5-15.5); WBC 7.2 k/uL (3.8-10.6)
[2023-06-28] MEDS ORDERED: SODIUM CHLORIDE 0.9% 500 ML 500 ML IV ONE (06:55)
[2023-06-28] MEDS ORDERED: SODIUM CHLORIDE 0.9% 500 ML 250 ML IV ONE (06:58)
[2023-06-28 07:20] LABS: Glucose,Whole Blood 105 mg/dL (70-110)
--- NOTE | 2023-06-28 07:47 | CT ---
EXAMINATION TYPE: CT brain wo con DATE OF EXAM: 06/28/2023 COMPARISON: 08/06/2022 HISTORY: stroke CT DLP: 1190.[address] of the brain was performed. The ventricles, basal cisterns and sulci overlying the cerebral convexities demonstrate mild enlargem ent. There is no evidence for intracranial hemorrhage or sulcal effacement. There is decreased attenuation about the periventricular white matter and deep white matter of both c erebral hemispheres, compatible with chronic small vessel ischemia. Differential diagnosis does inclu de demyelination. No mass effects are seen.No midline shift. Osseous calvarium is intact. If symptoms persist consider MRI. IMPRESSION: 1. Age related atrophic and chronic small vessel ischemic change without acute intracranial process s een at this time.
[2023-06-28] MEDS: FORMOTEROL FUMARATE 20 MCG/2 ML NEBU INHALATION SCH ×2 (08:00→20:10)
[2023-06-28] MEDS: IPRATROPIUM-ALBUTEROL 3 ML NEB INHALATION SCH ×4 (08:01→20:10)
--- NOTE | 2023-06-28 08:16 | CT ---
EXAMINATION TYPE: CODE STROKE: CTA head neck DATE OF EXAM: 06/28/2023 COMPARISON: None HISTORY: stroke CT DLP: 211.3 mGycm CONTRAST: Performed with IV Contrast, patient injected with 65 mL of Isovue 370. Combination Contrast CTA cervical carotids and [place] CTA cervical carotids with 3-D recons truction Contrast CTA of the cervical carotids was performed 3-D reconstruction imaging obtained at a separate workstation. Right carotid system: Mild plaque is seen of the right common carotid artery. There is mild plaque a lso noted at the carotid bulb and proximal ICA. No significant diameter reduction. ECA is patent. Right vertebral artery appears unremarkable. Left carotid system: Mild plaque is seen of the left common carotid artery. There is mild plaque als o noted at the carotid bulb and proximal ICA. No significant diameter reduction. ECA is patent. Lef t vertebral artery appears unremarkable. IMPRESSION: 1. No significant diameter reduction to account for the patient's symptoms. CTA [place] with 3-D reconstruction Contrast CTA of the [place] was performed 3-D reconstruction imaging obtained at a separate workstation. Vertebrobasilar system as well as intracranial portions of the internal carotid arteries are patent. There is abrupt termination distal M1 segment left MCA. Remaining intracranial branch vessels appear to be patent. I do not see evidence for sizable aneurysm or vascular malformation. Please note MRI p rovides greater sensitivity and specificity. Visualized brain appears grossly unremarkable. IMPRESSION: 1. There is abrupt termination distal M1 segment left MCA. NASCET criteria was used in interpretation of this exam?
[2023-06-28] MEDS: levETIRAcetam 500 MG TAB PO SCH ×2 (09:57→20:18)
[2023-06-28] MEDS: METOPROLOL SUCCINATE (ER) 50 MG TAB.ER.24H PO SCH (09:57)
[2023-06-28] MEDS: GABAPENTIN 300 MG CAP PO SCH ×3 (09:58→20:18)
[2023-06-28] MEDS: FLUTICASONE 50MCG/SPRAY NASAL 16GM EA NOSTRIL SCH (09:58)
[2023-06-28] MEDS ORDERED: DEXTROSE 50% SYRINGE 50 ML IVP PRN ×2 (10:51)
[2023-06-28 12:01] LABS: Glucose,Whole Blood 97 mg/dL (70-110)
--- NOTE | 2023-06-28 12:58 | HP ---
HISTORY AND PHYSICAL CHIEF COMPLAINT: Shortness of breath, abdominal pain, and weakness. HISTORY OF PRESENT ILLNESS: This is a 63-year-old woman with a past medical history of pancolitis, who was previously admitted, but currently the patient is complaining of increasing shortness of breath, extreme weakness, and abdominal pain. The patient was admitted for further evaluation of debility and possible ECF rehab. A CT of the brain and CT angiogram were done at the time of hospitalization, showed age-related atrophy. There is no history of any fever, rigors, or chills. PAST MEDICAL HISTORY: Reviewed, include COPD, atrial fibrillation, multiple complex medical issues. HOME MEDICATIONS: Reviewed, include prednisone, Keppra, dose and rest of medications reviewed. ALLERGIES: Levaquin. FAMILY HISTORY: History of multiple diabetes mellitus and hypertension. Rest of the family history reviewed. SOCIAL HISTORY: History of polysubstance abuse, alcohol, nicotine. REVIEW OF SYSTEMS: Fourteen-point review of systems is negative except as mentioned earlier. PHYSICAL EXAMINATION: VITAL SIGNS: Pulse 52, blood pressure 110/72, respirations 18. HEENT: Conjunctivae normal. NECK: No jugular venous distention. CARDIOVASCULAR: S1, S2. RESPIRATIONS: Breath sounds diminished at the bases. Bilateral scattered rhonchi and crackles. ABDOMEN: Soft and nontender. NERVOUS SYSTEM: Nonfocal. LABORATORY DATA: Lactic acid is 2.9 rest of the labs are noted. ASSESSMENT: 1. Shortness of breath, possibly chronic obstructive pulmonary disease acute exacerbation. 2. Abdominal pain. 3. Generalized debility. 4. Elevated lactic acid. 5. Gastroesophageal reflux disease. 6. Chronic Crohn disease. 7. History of seizure disorder. 8. Atrial fibrillation. RECOMMENDATIONS AND DISCUSSION: This is a 63-year-old woman, who presented with multiple complex medical issues. We will monitor the patient closely. We will optimize bronchodilator treatment, steroids. Otherwise, we will obtain Infectious Disease evaluation to rule out the possibility of sepsis. Blood cultures. Resume home medications once they are done. Prognosis is guarded. Further recommendations to follow. See orders for details. MMODL / IJN: [id number] /
[2023-06-28] MEDS: INSULIN ASPART (NovoLOG) 100 UNIT/ML VIAL SQ SCH ×3 (13:17→21:03)
[2023-06-28] MEDS: methylPREDNISolone SOD SUCCI 125 MG/2 ML VIAL IV SCH ×3 (14:20→23:29)
[2023-06-28 14:46] VITALS: BMI 16.2
[2023-06-28 17:04] LABS: Glucose,Whole Blood 108 mg/dL (70-110)
[2023-06-28] MEDS: RIVAROXABAN 20 MG TAB PO SCH (17:59)
[2023-06-28] MEDS: QUEtiapine 400 MG TAB PO SCH (20:18)
[2023-06-28] MEDS: PANTOPRAZOLE 40 MG TABLET PO SCH (20:18)
[2023-06-28 20:58] LABS: Glucose,Whole Blood 220 mg/dL (70-110)
[2023-06-29] MEDS: ACETAMINOPHEN TAB 325 MG TAB PO PRN ×2 (01:51→11:50)
[2023-06-29] MEDS: methylPREDNISolone SOD SUCCI 125 MG/2 ML VIAL IV SCH ×2 (05:46→11:50)
[2023-06-29 07:08] LABS: Glucose,Whole Blood 176 mg/dL (70-110)
[2023-06-29] MEDS: FORMOTEROL FUMARATE 20 MCG/2 ML NEBU INHALATION SCH ×2 (07:23→19:05)
[2023-06-29] MEDS: IPRATROPIUM-ALBUTEROL 3 ML NEB INHALATION SCH ×4 (07:23→19:05)
[2023-06-29] MEDS: GABAPENTIN 300 MG CAP PO SCH ×4 (08:15→20:33)
[2023-06-29] MEDS: METOPROLOL SUCCINATE (ER) 50 MG TAB.ER.24H PO SCH (08:15)
[2023-06-29] MEDS: levETIRAcetam 500 MG TAB PO SCH ×2 (08:15→20:33)
[2023-06-29] MEDS: FLUTICASONE 50MCG/SPRAY NASAL 16GM EA NOSTRIL SCH (08:15)
[2023-06-29] MEDS: INSULIN ASPART (NovoLOG) 100 UNIT/ML VIAL SQ SCH ×4 (08:15→20:32)
[2023-06-29 09:25] LABS: Basophils # (A) 0 X 10*3/uL (0.00-0.10); Basophils % (A) 0 %; Eosinophils # (A) 0 X 10*3/uL (0.04-0.35); Eosinophils % (A) 0 %; HCT 23.8 % (37.2-46.3); HGB 7.7 d/dL (12.0-15.0); Lymphocytes # (A) 1.08 X 10*3/uL (0.90-5.00); Lymphocytes % (A) 36.5 %; MCH 26.6 pg (27.0-32.0); MCHC 32.4 d/dL (32.0-37.0); MCV 82.4 FL (80.0-97.0); Mean Platelet Volume 9.2 FL (9.5-12.2); Monocytes # (A) 0.14 X 10*3/uL (0.20-1.00); Monocytes % (A) 4.7 %; NRBC Per 100 WBC 0 X 10*3/uL (0.00-0.01); Neutrophils # (A) 1.73 X 10*3/uL (1.80-7.70); Neutrophils % (A) 58.5 %; Platelet Count 371 X 10*3/uL (140-440); RBC 2.89 X 10*6/uL (4.10-5.20); RDW 19.2 % (11.5-14.5); WBC 2.96 X 10*3/uL (4.50-10.00)
[2023-06-29 12:11] LABS: Glucose,Whole Blood 254 mg/dL (70-110)
[2023-06-29 12:41] LABS: BUN/Creat Ratio 26.25 Ratio (12.00-20.00); Blood Urea Nitrogen 10.5 mg/dL (9.0-27.0); Calcium 8.4 mg/dL (8.7-10.3); Carbon Dioxide 24.8 mmol/L (21.6-31.8); Chloride 104 mmol/L (96-109); Glucose 163 mg/dL (70-110); Potassium 3.6 mmol/L (3.5-5.5); Sodium 138 mmol/L (135-145)
--- NOTE | 2023-06-29 14:54 | P.PN ---
Subjective Progress Note Date: 06/29/23 * 63-year-old lady with past medical history of atrial fibrillation, coronary artery disease, COPD, history of CVA, hyperlipidemia, hypertension, history of seizure disorder, anxiety/bipolar depression. Multiple hospital admissions. Patient was recently treated for pancolitis. Patient was scheduled to be discharged to subacute rehab however she ultimately decided to go home and presents as a readmission * 06/29: Patient seen and evaluated bedside. She denies nausea, vomiting does complain of mild abdominal discomfort. Patient states shortness of breath is improved Objective - Vital Signs Vital signs: Vital Signs Temp 98.8 F 06/29/23 12:08 Pulse 86 06/29/23 12:08 Resp 16 06/29/23 12:08 BP 123/58 06/29/23 12:08 Pulse Ox 96 06/29/23 12:08 FiO2 Intake & Output 06/28/23 06/29/23 06/29/23 18:59 06:59 18:59 Intake Total 600 Balance 600 Weight 47.174 kg Intake: Oral 600 Other: Voiding Method Bedside Commode Bedside Commode # Voids 2 1 1 # Bowel Movements 1 1 - Exam PHYSICAL EXAMINATION: GENERAL: The patient is alert and oriented x3, not in any acute distress. Well developed, well nourished. HEENT: Pupils are round and equally reacting to light. EOMI. No scleral icterus. No conjunctival pallor. Normocephalic, atraumatic. No pharyngeal erythema. No thyromegaly. CARDIOVASCULAR: S1 and S2 present. No murmurs, rubs, or gallops. PULMONARY: Chest is clear to auscultation, no wheezing or crackles. ABDOMEN: Soft, nontender, nondistended, normoactive bowel sounds. No palpable organomegaly. MUSCULOSKELETAL: No joint swelling or deformity. EXTREMITIES: No cyanosis, clubbing, or pedal edema. NEUROLOGICAL: Gross neurological examination did not reveal any focal deficits. SKIN: No rashes. - Labs CBC & Chem 7: 06/29/23 05:57 06/29/23 05:57 Labs: Abnormal Lab Results - Last 24 Hours (Table) 06/28/23 06/29/23 06/29/23 Range/Units 20:57 05:57 05:57 WBC 2.96 L (4.50-10.00) X 10*3/uL RBC 2.89 L (4.10-5.20) X 10*6/uL Hgb 7.7 L (12.0-15.0) d/dL Hct 23.8 L (37.2-46.3) % MCH 26.6 L (27.0-32.0) pg RDW 19.2 H (11.5-14.5) % MPV 9.2 L (9.5-12.2) FL Neutrophils # 1.73 L (1.80-7.70) X 10*3/uL Monocytes # 0.14 L (0.20-1.00) X 10*3/uL Eosinophils # 0 L (0.04-0.35) X 10*3/uL Creatinine 0.4 L (0.6-1.5) mg/dL BUN/Creatinine Ratio 26.25 H (12.00-20.00) Ratio Glucose 163 H (70-110) mg/dL POC Glucose (mg/dL) 220 H (70-110) mg/dL Calcium 8.4 L (8.7-10.3) mg/dL 06/29/23 06/29/23 Range/Units 07:07 12:10 WBC (4.50-10.00) X 10*3/uL RBC (4.10-5.20) X 10*6/uL Hgb (12.0-15.0) d/dL Hct (37.2-46.3) % MCH (27.0-32.0) pg RDW (11.5-14.5) % MPV (9.5-12.2) FL Neutrophils # (1.80-7.70) X 10*3/uL Monocytes # (0.20-1.00) X 10*3/uL Eosinophils # (0.04-0.35) X 10*3/uL Creatinine (0.6-1.5) mg/dL BUN/Creatinine Ratio (12.00-20.00) Ratio Glucose (70-110) mg/dL POC Glucose (mg/dL) 176 H 254 H (70-110) mg/dL Calcium (8.7-10.3) mg/dL Assessment and Plan Assessment: Assessment and plan Severe protein calorie malnutrition generalized debility History of atrial fibrillation Chronic hypoxic respiratory failure with history of COPD Hypertension Hyperlipidemia History of seizure disorder Recent hospitalization for colitis History of nonsustained V. tach * In regards to protein calorie malnutrition continue patient on nutritional supplements will need physical therapy evaluation for placement * In regards to history of atrial fibrillation continue patient on metoprolol, continues a lot of * In regards to history of seizure continue patient on Keppra * In regards to history of COPD continue patient on breathing treatments patient receiving IV Solu-Medrol will transition to oral steroids * Past history of bipolar disorder continue [place]
[2023-06-29] MEDS: Acetaminophen-Codeine 300-30mg TAB PO PRN ×2 (15:41→21:42)
[2023-06-29 17:11] LABS: Glucose,Whole Blood 117 mg/dL (70-110)
[2023-06-29] MEDS: RIVAROXABAN 20 MG TAB PO SCH (17:20)
[2023-06-29 20:23] LABS: Glucose,Whole Blood 148 mg/dL (70-110)
[2023-06-29] MEDS: QUEtiapine 400 MG TAB PO SCH (20:33)
[2023-06-29] MEDS: PANTOPRAZOLE 40 MG TABLET PO SCH (20:33)
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
[2023-06-30] MEDS: Acetaminophen-Codeine 300-30mg TAB PO PRN ×4 (05:51→23:51)
[2023-06-30] MEDS: FORMOTEROL FUMARATE 20 MCG/2 ML NEBU INHALATION SCH ×2 (07:18→19:13)
[2023-06-30] MEDS: IPRATROPIUM-ALBUTEROL 3 ML NEB INHALATION SCH ×4 (07:18→19:13)
[2023-06-30 07:36] LABS: Glucose,Whole Blood 77 mg/dL (70-110)
[2023-06-30 09:06] LABS: HCT 24.7 % (37.2-46.3); HGB 7.7 d/dL (12.0-15.0); MCH 26.8 pg (27.0-32.0); MCHC 31.2 d/dL (32.0-37.0); MCV 86.1 FL (80.0-97.0); Mean Platelet Volume 9.3 FL (9.5-12.2); NRBC Per 100 WBC 0 X 10*3/uL (0.00-0.01); Platelet Count 372 X 10*3/uL (140-440); RBC 2.87 X 10*6/uL (4.10-5.20); RDW 19.5 % (11.5-14.5); WBC 8.83 X 10*3/uL (4.50-10.00)
[2023-06-30] MEDS: INSULIN ASPART (NovoLOG) 100 UNIT/ML VIAL SQ SCH ×4 (09:17→20:13)
[2023-06-30] MEDS: levETIRAcetam 500 MG TAB PO SCH ×2 (09:31→20:11)
[2023-06-30] MEDS: FLUTICASONE 50MCG/SPRAY NASAL 16GM EA NOSTRIL SCH (09:31)
[2023-06-30] MEDS: METOPROLOL SUCCINATE (ER) 50 MG TAB.ER.24H PO SCH (09:31)
[2023-06-30] MEDS: GABAPENTIN 300 MG CAP PO SCH ×3 (09:31→20:11)
[2023-06-30] MEDS: predniSONE 20 MG TAB PO SCH (09:31)
[2023-06-30 12:05] LABS: Blood Urea Nitrogen 16.6 mg/dL (9.0-27.0); Calcium 7.8 mg/dL (8.7-10.3); Carbon Dioxide 24.8 mmol/L (21.6-31.8); Chloride 105 mmol/L (96-109); Glucose 89 mg/dL (70-110); Potassium 3.2 mmol/L (3.5-5.5); Sodium 139 mmol/L (135-145)
--- NOTE | 2023-06-30 12:13 | P.PN ---
Subjective Progress Note Date: 06/30/23 Principal diagnosis: Weakness, colitis question of UTI Patient is a 63-year-old female who was recently admitted at this hospital patient did have chronic medical condition of atrial fibrillation coronary disease COPD CVA TIA did have a episode of colitis and a UTI urine did grow E. coli Enterobacter patient was discharged home on Bactrim DS and Flagyl with the patient has completed presenting back to the hospital with weakness and unable to take care of herself also complaining of diarrhea. On today's evaluation that is 06/30/2023, the patient continues to be afebrile , the patient is breathing comfortably on 2 L nasal cannula oxygen denies any chest pain did have a cough not begin any sputum some nausea but no vomiting still having diarrhea no strokes results collected no significant abdominal pain though or urinary symptoms Patient did have a white count of 8.83 creatinine 0.85, UA was not collected Objective - Vital Signs Vital signs: Vital Signs Temp 98.7 F 06/30/23 07:29 Pulse 72 06/30/23 07:29 Resp 18 06/30/23 07:29 BP 113/53 06/30/23 07:29 Pulse Ox 96 06/30/23 07:29 FiO2 Intake & Output 06/29/23 06/30/23 06/30/23 18:59 06:59 18:59 Intake Total 600 Balance 600 Intake: Oral 600 Other: Voiding Method Bedside Commode # Voids 1 1 1 # Bowel Movements 1 - Exam GENERAL DESCRIPTION: An elderly female lying in bed in no distress RESPIRATORY SYSTEM: Unlabored breathing , decreased breath sounds at bases HEART: S1 S2 regular rate and rhythm , ABDOMEN: Soft , no tenderness EXTREMITIES: No edema feet - Labs CBC & Chem 7: 06/30/23 06:28 06/30/23 06:28 Labs: Abnormal Lab Results - Last 24 Hours (Table) 06/29/23 06/29/23 06/29/23 Range/Units 05:57 12:10 17:10 RBC (4.10-5.20) X 10*6/uL Hgb (12.0-15.0) d/dL Hct (37.2-46.3) % MCH (27.0-32.0) pg MCHC (32.0-37.0) d/dL RDW (11.5-14.5) % MPV (9.5-12.2) FL Creatinine 0.4 L (0.6-1.5) mg/dL BUN/Creatinine Ratio 26.25 H (12.00-20.00) Ratio Glucose 163 H (70-110) mg/dL POC Glucose (mg/dL) 254 H 117 H (70-110) mg/dL Calcium 8.4 L (8.7-10.3) mg/dL 06/29/23 06/30/23 Range/Units 20:21 06:28 RBC 2.87 L (4.10-5.20) X 10*6/uL Hgb 7.7 L (12.0-15.0) d/dL Hct 24.7 L (37.2-46.3) % MCH 26.8 L (27.0-32.0) pg MCHC 31.2 L (32.0-37.0) d/dL RDW 19.5 H (11.5-14.5) % MPV 9.3 L (9.5-12.2) FL Creatinine (0.6-1.5) mg/dL BUN/Creatinine Ratio (12.00-20.00) Ratio Glucose (70-110) mg/dL POC Glucose (mg/dL) 148 H (70-110) mg/dL Calcium (8.7-10.3) mg/dL Microbiology - Last 24 Hours (Table) 06/28/23 12:38 Blood Culture - Preliminary Blood Assessment and Plan (1) Weakness Current Visit: Yes Status: Acute Code(s): R53.1 - WEAKNESS SNOMED Code(s): 19567819 (2) Colitis Current Visit: No Status: Acute Code(s): K52.9 - NONINFECTIVE GASTROENTERITIS AND COLITIS, UNSPECIFIED SNOMED Code(s): 94760083 Plan: 1patient presented to hospital with weakness unable to care for self in this patient who recently did have multiple admission to the hospital patient did have significant diarrhea CT did shows colitis however stool studies were negative patient did have a positive urine for Enterobacter and E. coli. Patient has completed a course of oral Bactrim and Flagyl therapy patient currently with no fever White count was normal no significant tenderness on abdominal examination and no significant urinary symptoms 2-nursing staff has been advised again to obtain stool for C. difficile and stool culture, also to collect a UA and culture 3-await inflammatory markers 4we'll monitor the patient closely off antibiotic therapy at this point Dictation was produced using [employer] dictation software. please excuse any grammatical, word or spelling errors.
[2023-06-30 12:19] LABS: C Reactive Protein <0.30 mg/dL (0.00-0.80)
[2023-06-30] MEDS ORDERED: POTASSIUM CHLORIDE ER 20 MEQ TAB.ER PO STA (12:20)
[2023-06-30] MEDS ORDERED: Potassium Replacement Protocol 1 EACH MISC MISCELLANE PRN (12:36)
--- NOTE | 2023-06-30 12:38 | P.PN ---
Subjective Progress Note Date: 06/30/23 * 63-year-old lady with past medical history of atrial fibrillation, coronary artery disease, COPD, history of CVA, hyperlipidemia, hypertension, history of seizure disorder, anxiety/bipolar depression. Multiple hospital admissions. Patient was recently treated for pancolitis. Patient was scheduled to be discharged to subacute rehab however she ultimately decided to go home and presents as a readmission * 06/29: Patient seen and evaluated bedside. She denies nausea, vomiting does complain of mild abdominal discomfort. Patient states shortness of breath is improved * 06/30: Patient seen and evaluated bedside, patient states abdominal pain has improved. Encouraged increase oral intake, potassium replaced, will need discharge to rehab patient in agreement with going to rehab Objective - Vital Signs Vital signs: Vital Signs Temp 98.7 F 06/30/23 07:29 Pulse 72 06/30/23 07:29 Resp 18 06/30/23 07:29 BP 113/53 06/30/23 07:29 Pulse Ox 96 06/30/23 07:29 FiO2 Intake & Output 06/29/23 06/30/23 06/30/23 18:59 06:59 18:59 Intake Total 600 Balance 600 Intake: Oral 600 Other: Voiding Method Bedside Commode # Voids 1 1 1 # Bowel Movements 1 - Exam PHYSICAL EXAMINATION: GENERAL: The patient is alert and oriented x3, not in any acute distress. Well developed, well nourished. HEENT: Pupils are round and equally reacting to light. EOMI. No scleral icterus. No conjunctival pallor. Normocephalic, atraumatic. No pharyngeal erythema. No thyromegaly. CARDIOVASCULAR: S1 and S2 present. No murmurs, rubs, or gallops. PULMONARY: Chest is clear to auscultation, no wheezing or crackles. ABDOMEN: Soft, nontender, nondistended, normoactive bowel sounds. No palpable organomegaly. MUSCULOSKELETAL: No joint swelling or deformity. EXTREMITIES: No cyanosis, clubbing, or pedal edema. NEUROLOGICAL: Gross neurological examination did not reveal any focal deficits. SKIN: No rashes. - Labs CBC & Chem 7: 06/30/23 06:28 06/30/23 06:28 Labs: Abnormal Lab Results - Last 24 Hours (Table) 06/29/23 06/29/23 06/29/23 Range/Units 05:57 17:10 20:21 RBC (4.10-5.20) X 10*6/uL Hgb (12.0-15.0) d/dL Hct (37.2-46.3) % MCH (27.0-32.0) pg MCHC (32.0-37.0) d/dL RDW (11.5-14.5) % MPV (9.5-12.2) FL Potassium (3.5-5.5) mmol/L Creatinine 0.4 L (0.6-1.5) mg/dL BUN/Creatinine Ratio 26.25 H (12.00-20.00) Ratio Glucose 163 H (70-110) mg/dL POC Glucose (mg/dL) 117 H 148 H (70-110) mg/dL Calcium 8.4 L (8.7-10.3) mg/dL 06/30/23 06/30/23 Range/Units 06:28 06:28 RBC 2.87 L (4.10-5.20) X 10*6/uL Hgb 7.7 L (12.0-15.0) d/dL Hct 24.7 L (37.2-46.3) % MCH 26.8 L (27.0-32.0) pg MCHC 31.2 L (32.0-37.0) d/dL RDW 19.5 H (11.5-14.5) % MPV 9.3 L (9.5-12.2) FL Potassium 3.2 L (3.5-5.5) mmol/L Creatinine 0.5 L (0.6-1.5) mg/dL BUN/Creatinine Ratio 33.20 H (12.00-20.00) Ratio Glucose (70-110) mg/dL POC Glucose (mg/dL) (70-110) mg/dL Calcium 7.8 L (8.7-10.3) mg/dL Microbiology - Last 24 Hours (Table) 06/28/23 12:38 Blood Culture - Preliminary Blood Assessment and Plan Assessment: Assessment and plan Severe protein calorie malnutrition generalized debility History of atrial fibrillation Chronic hypoxic respiratory failure with history of COPD Hypertension Hyperlipidemia History of seizure disorder Recent hospitalization for colitis History of nonsustained V. tach * In regards to protein calorie malnutrition continue patient on nutritional supplements will need physical therapy evaluation for placement * In regards to history of atrial fibrillation continue patient on metoprolol, continue Xarelto * In regards to history of seizure continue patient on Keppra * In regards to history of COPD continue patient on breathing treatments patient receiving IV Solu-Medrol will transition to oral steroids * Past history of bipolar disorder continue Serocodyl
[2023-06-30 12:40] LABS: Glucose,Whole Blood 150 mg/dL (70-110)
[2023-06-30 17:34] LABS: Glucose,Whole Blood 168 mg/dL (70-110)
[2023-06-30] MEDS: RIVAROXABAN 20 MG TAB PO SCH (17:38)
[2023-06-30 18:55] LABS: Appearance,Urine Clear (Clear); Bilirubin,Urine Negative (Negative); Blood,Urine Negative (Negative); Color,Urine Light Yellow; Glucose,Urine (UA) Negative (Negative); Ketones,Urine Negative (Negative); Leukocyte Esterase,Urine Small (Negative); Mucus,Urine Rare /hpf; Nitrite,Urine Negative (Negative); Protein,Urine Negative (Negative); RBC,Urine 2 /hpf (0-5); Specific Gravity,Urine 1.024 (1.001-1.035); Squamous Epithelial Cell,Urine <1 /hpf (0-4); Urobilinogen,Urine <2.0 mg/dL (<2.0); WBC,Urine 3 /hpf (0-5)
[2023-06-30] MEDS: QUEtiapine 400 MG TAB PO SCH (20:11)
[2023-06-30] MEDS: PANTOPRAZOLE 40 MG TABLET PO SCH (20:11)
[2023-06-30 20:15] LABS: Glucose,Whole Blood 151 mg/dL (70-110)
[2023-07-01] MEDS: Acetaminophen-Codeine 300-30mg TAB PO PRN ×2 (06:23→12:12)
[2023-07-01 07:13] LABS: Glucose,Whole Blood 91 mg/dL (70-110)
[2023-07-01] MEDS: predniSONE 20 MG TAB PO SCH (07:34)
[2023-07-01] MEDS: METOPROLOL SUCCINATE (ER) 50 MG TAB.ER.24H PO SCH (07:34)
[2023-07-01] MEDS: levETIRAcetam 500 MG TAB PO SCH (07:34)
[2023-07-01] MEDS: GABAPENTIN 300 MG CAP PO SCH ×2 (07:35→14:09)
[2023-07-01] MEDS: FLUTICASONE 50MCG/SPRAY NASAL 16GM EA NOSTRIL SCH (07:36)
[2023-07-01] MEDS: INSULIN ASPART (NovoLOG) 100 UNIT/ML VIAL SQ SCH ×2 (07:46→12:15)
[2023-07-01] MEDS: IPRATROPIUM-ALBUTEROL 3 ML NEB INHALATION SCH ×3 (07:51→15:38)
[2023-07-01] MEDS: FORMOTEROL FUMARATE 20 MCG/2 ML NEBU INHALATION SCH (07:51)
[2023-07-01 11:40] LABS: HCT 25.4 % (37.2-46.3); MCHC 31.5 d/dL (32.0-37.0); MCV 85.8 FL (80.0-97.0); Mean Platelet Volume 9.3 FL (9.5-12.2); NRBC Per 100 WBC 0 X 10*3/uL (0.00-0.01); Platelet Count 328 X 10*3/uL (140-440); RBC 2.96 X 10*6/uL (4.10-5.20); RDW 19.3 % (11.5-14.5); WBC 7.24 X 10*3/uL (4.50-10.00)
[2023-07-01 11:47] LABS: Calcium 8.1 mg/dL (8.7-10.3); Carbon Dioxide 25.7 mmol/L (21.6-31.8); Chloride 102 mmol/L (96-109); Glucose 72 mg/dL (70-110); Magnesium 1.6 mg/dL (1.5-2.4); Potassium 4.1 mmol/L (3.5-5.5); Sodium 138 mmol/L (135-145)
[2023-07-01 11:52] LABS: Glucose,Whole Blood 114 mg/dL (70-110)
[2023-07-01 12:07] VITALS: BP 121/70; PULSE 84; RESP 18; TEMP 98.3
[2023-07-01] MEDS: MAGNESIUM SULFATE-D5W PMX 1 GM in DEXTROSE/WATER 1 100ML.BAG IVPB SCH ×2 (12:13→13:28)
--- NOTE | 2023-07-01 12:48 | P.PN ---
Subjective Progress Note Date: 07/01/23 Principal diagnosis: Weakness, colitis question of UTI Patient is a 63-year-old female who was recently admitted at this hospital patient did have chronic medical condition of atrial fibrillation coronary disease COPD CVA TIA did have a episode of colitis and a UTI urine did grow E. coli Enterobacter patient was discharged home on Bactrim DS and Flagyl with the patient has completed presenting back to the hospital with weakness and unable to take care of herself also complaining of diarrhea. On today's evaluation that is 06/30/2023, the patient continues to be afebrile , the patient is breathing comfortably on room air with no need for supplemental oxygen , the patient denies chest pain shortness of breath or cough, patient denies nausea or vomiting, the patient denies abdominal pain still complaining of some diarrhea , no stool studies collected Patient did have a white count of 7.24, creatinine 0.5, UA is negative Objective - Vital Signs Vital signs: Vital Signs Temp 98.3 F 07/01/23 11:50 Pulse 84 07/01/23 11:50 Resp 18 07/01/23 11:50 BP 121/70 07/01/23 11:50 Pulse Ox 99 07/01/23 11:50 FiO2 Intake & Output 06/30/23 07/01/23 07/01/23 18:59 06:59 18:59 Other: Voiding Method Bedside Commode Diaper # Voids 3 1 1 # Bowel Movements 1 - Exam GENERAL DESCRIPTION: An elderly female lying in bed in no distress RESPIRATORY SYSTEM: Unlabored breathing , decreased breath sounds at bases HEART: S1 S2 regular rate and rhythm , ABDOMEN: Soft , no tenderness EXTREMITIES: No edema feet - Labs CBC & Chem 7: 07/01/23 06:32 07/01/23 06:32 Labs: Abnormal Lab Results - Last 24 Hours (Table) 06/30/23 06/30/23 06/30/23 Range/Units 17:33 18:26 20:13 RBC (4.10-5.20) X 10*6/uL Hgb (12.0-15.0) d/dL Hct (37.2-46.3) % MCHC (32.0-37.0) d/dL RDW (11.5-14.5) % MPV (9.5-12.2) FL Creatinine (0.6-1.5) mg/dL BUN/Creatinine Ratio (12.00-20.00) Ratio POC Glucose (mg/dL) 168 H 151 H (70-110) mg/dL Calcium (8.7-10.3) mg/dL Ur Leukocyte Esterase Small H (Negative) Urine Mucus Rare H (None) /hpf 07/01/23 07/01/23 07/01/23 Range/Units 06:32 06:32 11:51 RBC 2.96 L (4.10-5.20) X 10*6/uL Hgb 8.0 L (12.0-15.0) d/dL Hct 25.4 L (37.2-46.3) % MCHC 31.5 L (32.0-37.0) d/dL RDW 19.3 H (11.5-14.5) % MPV 9.3 L (9.5-12.2) FL Creatinine 0.5 L (0.6-1.5) mg/dL BUN/Creatinine Ratio 36.00 H (12.00-20.00) Ratio POC Glucose (mg/dL) 114 H (70-110) mg/dL Calcium 8.1 L (8.7-10.3) mg/dL Ur Leukocyte Esterase (Negative) Urine Mucus (None) /hpf Microbiology - Last 24 Hours (Table) 06/28/23 12:38 Blood Culture - Preliminary Blood Assessment and Plan (1) Weakness Current Visit: Yes Status: Acute Code(s): R53.1 - WEAKNESS SNOMED Code(s): 01997828 (2) Colitis Current Visit: No Status: Acute Code(s): K52.9 - NONINFECTIVE GASTROENTERITIS AND COLITIS, UNSPECIFIED SNOMED Code(s): 45071331 Plan: 1patient presented to hospital with weakness unable to care for self in this patient who recently did have multiple admission to the hospital patient did have significant diarrhea CT did shows colitis however stool studies were negative patient did have a positive urine for Enterobacter and E. coli. Patient has completed a course of oral Bactrim and Flagyl therapy patient currently with no fever White count was normal no significant tenderness on abdominal examination and no significant urinary symptoms 2-nursing staff has been advised again to obtain stool for C. difficile and stool culture, urine was negative Patient did have a normal CRP, with a low clinical suspicious for infection we will monitor the patient closely off antibiotic therapy Dictation was produced using [employer] dictation software. please excuse any grammatical, word or spelling errors. Time with Patient: Less than 30
--- NOTE | 2023-07-01 12:55 | P.DS ---
Providers Date of admission: 06/28/23 12:15 Expected date of discharge: 07/01/23 Attending physician: Ignacio Ornelas MD Consults: 06/28/23 10:50 Consult Physician Routine Consulting Provider: Margarita Irwin Consult Reason/Comments: sepsis Do you want consulting provider notified?: Yes Primary care physician: Daksha Steiner [facility] Course: Final diagnosis Severe protein calorie malnutrition with a BMI of 16.3 generalized debility History of atrial fibrillation, currently rate controlled Chronic hypoxic respiratory failure with history of COPD and maintained on 2 L via nasal cannula outpatient Hypertension Hyperlipidemia History of seizure disorder Recent hospitalization for colitis History of nonsustained V. tach GI prophylaxis DVT prophylaxis Full code Discharge disposition Patient is being discharged in a stable condition with guarded prognosis to [facility]. Patient will follow-up with Dr. Steiner in the outpatient setting upon discharge. Patient is to follow-up with GI as well as pulmonary outpatient as scheduled. Total time taken is greater than 35 minutes. Hospital course This is a 63-year-old female who was recently admitted with significant weakness medical debility and difficulty taking care of herself and lives at home. Patient was seen and evaluated by physical therapy recommending rehab and patient is now agreeable. Patient also evaluated by infectious disease with no active infection noted and is being monitored off antibiotics. Patient does have significant history of Crohn's disease and follows with GI in the outpa tient setting along with extensive COPD and follows with pulmonary outpatient. Patient chronically wears oxygen and is maintained on breathing inhalational treatments. Patient has been accepted to ECF and will be discharged today. Patient to continue prednisone taper along with DuoNeb's 4 times a day and as needed and has been instructed to follow-up with primary care provider along with pulmonary and GI in the outpatient setting. Patient has had multiple hospitalizations due to noncompliance and medical debility with significant comorbidities. Patient reluctant initially for ECF although now agreeable and will be going today. Currently no reports of chest pain, shortness of breath, or palpitations. Patient is afebrile. No reports of nausea or vomiting and patient is tolerating diet. Patient will be going to [facility] today. High risk for readmissions as patient has significant comorbidities and noncompliance with medications and follow-up along with continued nicotine use. Physical exam: Gen: This is a 63-year-old female who is awake, alert and oriented 3, thin built, cachectic, elderly-appearing HEENT: Head is atraumatic, normocephalic. Pupils equal, round. Sclerae is anicteric. NECK: Supple. No JVD. No lymphadenopathy. No thyromegaly. LUNGS: Diminished breath sounds bilaterally with scattered rhonchi. No intercostal retractions. HEART: S1, S2 are muffled ABDOMEN: Soft. Thin Bowel sounds are present. No masses. No tenderness. EXTREMITIES: No pedal edema. No calf tenderness. NEUROLOGICAL: Patient is awake, alert and oriented x3. Cranial nerves 2 through 12 are grossly intact. Diffusely weak Please refer to medication reconciliation sheet for a list of medications. The impression and plan of care has been dictated by Angelita Diaz, Nurse Practitioner as directed. Dr. Antonette MD I have performed a history and examination and MDM of this patient, discussed the same with the dictator, and agree with the dictator's assessment and plan as written ,documented as a scribe. Based on total visit time, I have performed more than 50% of the visit. Patient Condition at Discharge: Fair Plan - Discharge Summary Discharge Rx Participant: No New Discharge Prescriptions: New predniSONE 10 mg PO DIRECTED #30 tab Acetaminophen-Codeine 300-30mg [Tylenol w/codeine #3] 1 each PO Q6HR PRN #4 tab PRN Reason: Pain Continue Glycopyrrolate/Formoterol Fum [Bevespi Aerosphere Inhaler] 2 puff INHALATION RT-BID@0800,1700 Fluticasone Nasal [place] [Flonase Nasal [place]] 1 spr EA NOSTRIL DAILY@0800 QUEtiapine [SEROquel] 400 mg PO HS 30 Days #30 tab levETIRAcetam [Keppra] 1,000 mg PO BID@0800,2100 bisacodyL [Dulcolax] 10 mg RECTAL DAILY PRN PRN Reason: Constipation Na Phos,M-B/Na Phos,Di-Ba [Fleet Adult] 133 ml RECTAL DAILY PRN PRN Reason: Constipation Metoprolol Succinate (ER) [Toprol XL] 50 mg PO DAILY@0800 Rivaroxaban [Xarelto] 20 mg PO DAILY@1700 Gabapentin [Neurontin] 300 mg PO TID@0800,1400,2100 #6 cap Pantoprazole Sodium [Protonix] 40 mg PO HS Albuterol Sulfate [Albuterol Sulfate Hfa] 2 puff INHALATION RT-Q6H PRN #1 each PRN Reason: Shortness Of Breath Ipratropium-Albuterol Nebulize [Duoneb 0.5 mg-3 mg/3 ml Soln] 3 ml INHALATION RT-QID #100 each Acetaminophen Tab [Tylenol] 650 mg PO Q4H PRN PRN Reason: general discomfort Magnesium Hydroxide [Milk of Magnesia Concentrate] 7,200 mg PO Q2D PRN PRN Reason: No BM for 2 days Discontinued predniSONE 50 mg PO DAILY 5 Days #5 tab Discharge Medication List Glycopyrrolate/Formoterol Fum [Bevespi Aerosphere Inhaler] 2 puff INHALATION RT- BID@0800,1700 11/24/19 [History] Fluticasone Nasal [place] [Flonase Nasal [place]] 1 spr EA NOSTRIL DAILY@0800 03/27/20 [History] Albuterol Sulfate [Albuterol Sulfate Hfa] 2 puff INHALATION RT-Q6H PRN #1 each 10/04/22 [Rx] Pantoprazole Sodium [Protonix] 40 mg PO HS 10/04/22 [History] QUEtiapine [SEROquel] 400 mg PO HS 30 Days #30 tab 10/04/22 [Rx] Ipratropium-Albuterol Nebulize [Duoneb 0.5 mg-3 mg/3 ml Soln] 3 ml INHALATION RT-QID #100 each 02/01/23 [Rx] levETIRAcetam [Keppra] 1,000 mg PO BID@0800,2100 03/20/23 [History] Acetaminophen Tab [Tylenol] 650 mg PO Q4H PRN 06/21/23 [History] Magnesium Hydroxide [Milk of Magnesia Concentrate] 7,200 mg PO Q2D PRN 06/21/23 [History] Metoprolol Succinate (ER) [Toprol XL] 50 mg PO DAILY@0800 06/21/23 [History] Na Phos,M-B/Na Phos,Di-Ba [Fleet Adult] 133 ml RECTAL DAILY PRN 06/21/23 [History] Rivaroxaban [Xarelto] 20 mg PO DAILY@1700 06/21/23 [History] bisacodyL [Dulcolax] 10 mg RECTAL DAILY PRN 06/21/23 [History] Acetaminophen-Codeine 300-30mg [Tylenol w/codeine #3] 1 each PO Q6HR PRN #4 tab 07/01/23 [Rx] Gabapentin [Neurontin] 300 mg PO TID@0800,1400,2100 #6 cap 07/01/23 [Rx] predniSONE 10 mg PO DIRECTED #30 tab 07/01/23 [Rx] Follow up Appointment(s)/Referral(s): Aby Younger MD [STAFF PHYSICIAN] - 1 Week Daksha Steiner MD [Primary Care Provider] - 1 Week Jaun Cortez MD [STAFF PHYSICIAN] - 1 Week Activity/Diet/Wound Care/Special Instructions: Patient is going to [facility] Cardio control Activity as tolerated Continue with breathing treatments 4 times a day and as needed Continue prednisone taper until finished Follow-up with primary care provider on discharge Follow-up pulmonary outpatient Patient follow-up with GI outpatient as well Discharge Disposition: TRANSFER TO SNF/ECF
--- NOTE | 2023-07-01 16:55 | CDI ---
Documentation Clarification Form Date: 07/01/2023 04:30:10 PM From: Kelly River RN,CCDS Admit Date: 06/28/2023 12:15:00 PM Patient Name: Fabiola Giraldo Visit Number: [id number] Discharge Date: 07/01/2023 04:07:00 PM ATTENTION: The Clinical Documentation Specialists (CDI) and [facility] Coding Staff appreciate your assistance in clarifying documentation. Please respond to the clarification below the line at the bottom and electronically sign. The CDI & [facility] Coding staff will review the response and follow-up if needed. Please note: Queries are made part of the Legal Health Record. If you have any questions, please contact the author of this message via ITS. Dr. Demar Vaughn Conflicting documentation has been found in the medical record. As attending physician, please provide clarification. 06/28 H/P: Shortness of breath, possible chronic obstructive pulmonary disease acute exacerbation 06/29-07/01 History of COPD History/Risk Factors: Atrial Fibrillation, Coronary Artery Disease, Chest Pain / Angina, COPD, CVA/TIA, GERD/Reflux, Hyperlipidemia, Hypertension, Seizure Disorder, current every day smoker Clinical Indicators: 63-year-old female chronically on oxygen present with complaints of shortness of breath. ED exam: Clear breath sounds bilaterally. No wheezes, rales or rhonchi. 06/27 VS: 117/71 110 22 99.2 99% 2/L NC Treatment: Ventolin Nebulized QID Perforomist 20 mcg inhalation bid Solu-Medrol 60 MG IV Q6 HR 06/28-06/29 Rocephin 1 GM IVPB Q 24 HRS 06/28-06/29 Prednisone 40 MG PO Daily 06/30-07/01 Please clarify which diagnosis is most appropriate: [ y ] Acute COPD Exacerbation with current treatment [ ] History of COPD without acute exacerbation [ ] Other (please specify) [ ] Unable to determine (Template Last Revised: December 2020) MTDD
--- NOTE | 2023-07-01 17:09 | CDI ---
Documentation Clarification Form Date: 07/01/2023 04:57:23 PM From: Kelly River RN, CCDS Admit Date: 06/28/2023 12:15:00 PM Patient Name: Fabiola Giraldo Visit Number: [id number] Discharge Date: 07/01/2023 04:07:00 PM ATTENTION: The Clinical Documentation Specialists (CDI) and [facility] Coding Staff appreciate your assistance in clarifying documentation. Please respond to the clarification below the line at the bottom and electronically sign. The CDI & [facility] Coding staff will review the response and follow-up if needed. Please note: Queries are made part of the Legal Health Record. If you have any questions, please contact the author of this message via ITS. Dr. Demar Vaughn Atrial Fibrillation is documented in the H/P and subsequent progress notes. Additional clarification regarding the type of atrial fibrillation is requested. History/Risk Factors: Atrial Fibrillation, Coronary Artery Disease, Chest Pain / Angina, COPD, CVA/TIA, GERD/Reflux, Hyperlipidemia, Hypertension, Seizure Disorder, current every day smoker Clinical Indicators: 63-year-old female chronically on oxygen present with complaints of shortness of breath, and has history of A. fib on blood thinners. Treatment: Toprol Xl 50 MG PO Daily 06/28-07/01 Xarelto 20 MG PO Daily 06/28-06/30 Please clarify the type of atrial fibrillation, if known: [y ] Chronic [ ] Permanent [ ] Paroxysmal [ ] Persistent [ ] Other, please specify [ ] Unable to determine (Template Last Revised: February 2021) MTDD
--- NOTE | 2023-07-03 15:31 | CDI ---
Documentation Clarification Form Date: 07/03/2023 02:50:57 PM From: Shoshana Gibbons RN, CCDS Email: [email or web address] Admit Date: 06/28/2023 12:15:00 PM Patient Name: Fabiola Giraldo Visit Number: [id number] Discharge Date: 07/01/2023 04:07:00 PM ATTENTION: The Clinical Documentation Specialists (CDI) and [facility] Coding Staff appreciate your assistance in clarifying documentation. Please respond to the clarification below the line at the bottom and electronically sign. The CDI & [facility] Coding staff will review the response and follow-up if needed. Please note: Queries are made part of the Legal Health Record. If you have any questions, please contact the author of this message via ITS. Dr. Logan Whitman The patient has the documented symptom of weakness. Additional clarification regarding the etiology/cause of this symptom is requested. History/Risk Factors: Seen in hospital multiple times over the last few weeks and was admitted for Colitis. Recent discharge from the hospital within the last week and feels she has much weakness. History of bipolar, depression, A fib and home oxygen. Clinical Indicators 06/27 ED: weakness and debility. 06/28 H&P: "The patient was admitted for further evaluation of debility and possible ECF rehab." 06/29 ID: "patient presented to hospital with weakness and unable to care for self. Recently did have multiple admissions to the hospital. 07/01 Discharge summary: "Neurological: diffusely weak. Recently admitted with significant weakness, medical debility and difficulty taking care of herself at home. Patient has had multiple hospitalizations due to noncompliance and medical debility with significant comorbidities. Patient reluctant initially for ECF although now agreeable and will be going today. Treatment: PT/OT evaluation and treatment with recommendation for subacute rehab. Discharged to intermediate facility. Is there a corresponding diagnosis/etiology for this symptom of weakness? [ ] Age related physical debility [ ] Unable to determine [ x] Other, please specify disability due to multiple hospitalizations MTDD
== END 2023-07-01 16:07 | DRG 947 ==
LOC: EC 19:45 → 6NMEDSUR 22:15 → 5NMEDONC 06-28 00:58 → OBSVTOIN 06-28 12:15
PROVIDERS: ADMIT Internal Medicine; ATTEND Internal Medicine
DX: R53.81 Other malaise (principal); E43 Unspecified severe protein-calorie malnutrition; Z68.1 Body mass index [BMI] 19.9 or less, adult; K50.90 Crohn's disease, unspecified, without complications; J96.11 Chronic respiratory failure with hypoxia; E87.20 Acidosis, unspecified; J44.1 Chronic obstructive pulmonary disease with (acute) exacerbation; I48.20 Chronic atrial fibrillation, unspecified; E78.5 Hyperlipidemia, unspecified; E83.42 Hypomagnesemia; F17.200 Nicotine dependence, unspecified, uncomplicated; I25.10 Atherosclerotic heart disease of native coronary artery without angina pectoris; I10 Essential (primary) hypertension; G40.909 Epilepsy, unspecified, not intractable, without status epilepticus; F41.9 Anxiety disorder, unspecified; F31.9 Bipolar disorder, unspecified; K21.9 Gastro-esophageal reflux disease without esophagitis; M19.90 Unspecified osteoarthritis, unspecified site; R91.1 Solitary pulmonary nodule; F10.11 Alcohol abuse, in remission; F14.11 Cocaine abuse, in remission; Z87.440 Personal history of urinary (tract) infections; Z86.73 Personal history of transient ischemic attack (TIA), and cerebral infarction without residual deficits; Z88.1 Allergy status to other antibiotic agents; Z79.899 Other long term (current) drug therapy; Z79.01 Long term (current) use of anticoagulants; Z88.8 Allergy status to other drugs, medicaments and biological substances; Z87.01 Personal history of pneumonia (recurrent); Z91.148 Patient's other noncompliance with medication regimen for other reason
CPT/HCPCS: 70450; 70496; 70498; 80048; 81001; 83036; 83605; 83735; 84132; 85025; 85027; 86140; 87040; 94760; 96365; 99285

== ENCOUNTER 2024-03-05 13:03 | Inpatient (IN) | payer MEDICARE, OTHER ==
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
[2024-03-05 14:11] LABS: Basophils % (A) 0 %; Eosinophils # (A) 0.1 k/uL (0-0.7); Eosinophils % (A) 1 %; HGB 10.2 gm/dL (11.4-16.0); Lymphocytes # (A) 1.5 k/uL (1.0-4.8); Lymphocytes % (A) 17 %; MCH 24.1 pg (25.0-35.0); MCHC 30.9 g/dL (31.0-37.0); MCV 78.1 fL (80.0-100.0); Mean Platelet Volume 6.9; Microcytosis Slight; Monocytes # (A) 0.5 k/uL (0-1.0); Monocytes % (A) 6 %; Neutrophils # (A) 6.6 k/uL (1.3-7.7); Neutrophils % (A) 74 %; Platelet Count 386 k/uL (150-450); RBC 4.23 m/uL (3.80-5.40); RDW 15.4 % (11.5-15.5); WBC 8.8 k/uL (3.8-10.6)
[2024-03-05] MEDS: SODIUM CHLORIDE 0.9% 500 ML 500 ML IV STA (14:14)
[2024-03-05 14:30] LABS: ALT 10 U/L (4-34); AST 19 U/L (14-36); African American GFR (CKD) >90 (>60 ml/min/1.73 sqM); Albumin 2.7 g/dL (3.5-5.0); Alkaline Phosphatase 89 U/L (38-126); Anion Gap -1 mmol/L; Blood Urea Nitrogen 8 mg/dL (7-17); Calcium 8.1 mg/dL (8.4-10.2); Carbon Dioxide 36 mmol/L (22-30); Chloride 98 mmol/L (98-107); Glucose 104 mg/dL (74-99); Lipase 71 U/L (23-300); Non-African American GFR(CKD) >90 (>60 ml/min/1.73 sqM); Potassium 3.5 mmol/L (3.5-5.1); Sodium 133 mmol/L (137-145); Total Bilirubin 0.3 mg/dL (0.2-1.3); Total Protein 5.6 g/dL (6.3-8.2)
[2024-03-05] MEDS: METOCLOPRAMIDE 5 MG/ML 2 ML VIAL IVP STA ×2 (14:34→18:21)
[2024-03-05] MEDS: MORPHINE SULFATE 2 MG/ML SYRINGE IVP ONE (15:00)
--- NOTE | 2024-03-05 15:37 | CT ---
EXAMINATION TYPE: CT abdomen pelvis w con DATE OF EXAM: 03/05/2024 COMPARISON: 06/21/2023 INDICATION: Abdominal pain, acute, nonlocalized. DLP: 425.4 mGycm, Automated exposure control for dose reduction was used. CONTRAST: 100ml mL of Isovue 300. Study performed without Oral Contrast TECHNIQUE: Axial images were obtained from above the diaphragm to the pubic rami in the axial plane a t 5 mm thick sections. Reconstructed images are reviewed on the computer in the coronal plane. FINDINGS: Limited CT sections are obtained the lung bases. The lung bases are clear. CT ABDOMEN: Liver: Normal Spleen: Normal Pancreas: Normal Adrenal glands: The adrenal glands are normal. Gallbladder: Normal Kidneys: No masses are evident. No hydronephrosis is present. No cysts are present. Aorta: Vascular calcification is within the aorta. Inferior vena cava: Normal. CT PELVIS: There is diffuse thickening throughout the colon. Minimal inflammatory changes are adjacent to the de scending colon. Clinical correlation for colitis is recommended. Fluid-filled small bowel loops are p resent. Consider ileus. Stomach is distended with fluid. Appendix: Not identified. No dilated tubular structure or inflammatory changes. Urinary bladder: Normal. Genitourinary structures: Uterus and ovaries are not identified. Osseous structures: No suspicious lytic or sclerotic lesions. IMPRESSION: 1. Diffusely thickened: From ascending through transverse and descending colon. Minimal adjacent inf lammatory change may be present. Correlate for colitis. 2. Some small bowel ileus may also be present slight prominence of fluid-filled small bowel loops wit hin the mid and distal abdomen
[2024-03-05] MEDS ORDERED: NALOXONE 0.4 MG/ML 1 ML VIAL IV PRN (17:06)
[2024-03-05 17:38] LABS: Appearance,Urine Cloudy (Clear); Bacteria,Urine Rare /hpf; Bilirubin,Urine Negative (Negative); Blood,Urine Negative (Negative); Color,Urine Colorless; Glucose,Urine (UA) Negative (Negative); Ketones,Urine Trace (Negative); Leukocyte Esterase,Urine Negative (Negative); Mucus,Urine Rare /hpf; Nitrite,Urine Negative (Negative); Protein,Urine Negative (Negative); RBC,Urine 5 /hpf (0-5); Specific Gravity,Urine 1.044 (1.001-1.035); Urobilinogen,Urine <2.0 mg/dL (<2.0); WBC,Urine 3 /hpf (0-5)
[2024-03-05] MEDS: HYDROmorphone 0.5 MG/0.5 ML SYRINGE IVP PRN (17:55)
[2024-03-05] MEDS: ACETAMINOPHEN TAB 325 MG TAB PO STA (17:56)
[2024-03-05] MEDS: IPRATROPIUM-ALBUTEROL 3 ML NEB INHALATION PRN (20:17)
[2024-03-05] MEDS: METOPROLOL SUCCINATE (ER) 50 MG TAB.ER.24H PO SCH (22:46)
[2024-03-05] MEDS: QUEtiapine 400 MG TAB PO SCH (22:47)
[2024-03-05] MEDS: SODIUM CHLORIDE 0.9% 1,000 ML IV SCH (22:51)
[2024-03-06] MEDS: ONDANSETRON 4 MG/2 ML VIAL IVP PRN (01:34)
[2024-03-06] MEDS: HYDROmorphone 0.5 MG/0.5 ML SYRINGE IVP PRN (01:49)
[2024-03-06 07:49] LABS: Basophils % (A) 0 %; Eosinophils # (A) 0.1 k/uL (0-0.7); Eosinophils % (A) 1 %; HGB 9.7 gm/dL (11.4-16.0); Hypochromasia Moderate; Lymphocytes # (A) 1.8 k/uL (1.0-4.8); Lymphocytes % (A) 16 %; MCH 24.3 pg (25.0-35.0); MCHC 30.2 g/dL (31.0-37.0); MCV 80.5 fL (80.0-100.0); Mean Platelet Volume 7.4; Monocytes # (A) 0.9 k/uL (0-1.0); Monocytes % (A) 8 %; Neutrophils # (A) 8.1 k/uL (1.3-7.7); Neutrophils % (A) 73 %; Platelet Count 397 k/uL (150-450); RBC 3.98 m/uL (3.80-5.40); RDW 15.1 % (11.5-15.5); WBC 11.2 k/uL (3.8-10.6)
[2024-03-06] MEDS: levETIRAcetam IV 500 MG/5 ML VIAL IVP SCH (07:56)
[2024-03-06] MEDS: PANTOPRAZOLE 40 MG TABLET PO SCH (08:09)
[2024-03-06] MEDS: methylPREDNISolone SOD SUCCI 40 MG/ML 1 ML VIAL IV SCH (08:09)
[2024-03-06] MEDS: PANTOPRAZOLE 40 MG TABLET PO ONE (09:15)
[2024-03-06 09:33] LABS: African American GFR (CKD) >90 (>60 ml/min/1.73 sqM); Anion Gap 2 mmol/L; Blood Urea Nitrogen 8 mg/dL (7-17); Calcium 7.5 mg/dL (8.4-10.2); Carbon Dioxide 29 mmol/L (22-30); Chloride 100 mmol/L (98-107); Glucose 84 mg/dL (74-99); Non-African American GFR(CKD) >90 (>60 ml/min/1.73 sqM); Potassium 3.9 mmol/L (3.5-5.1); Sodium 131 mmol/L (137-145)
[2024-03-06 10:28] LABS: C Reactive Protein 2.6 mg/dL (<1.0)
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
[2024-03-06] MEDS ORDERED: ALBUTEROL HFA INHALER INHALATION PRN (13:25)
--- NOTE | 2024-03-06 13:56 | XR ---
EXAMINATION TYPE: XR chest 1V portable DATE OF EXAM: 03/06/2024 COMPARISON: 06/27/2023 INDICATION: CHF TECHNIQUE: Single frontal view of the chest is obtained. FINDINGS: The heart size is normal. The pulmonary vasculature is normal. The lungs are clear. Hyperinflation may be present. Correlate for COPD. IMPRESSION: 1. No acute pulmonary process. To consider COPD
[2024-03-06 14:13] VITALS: BMI 14.6
--- NOTE | 2024-03-06 14:23 | HP ---
HISTORY AND PHYSICAL HISTORY OF PRESENT ILLNESS: This is a 63-year-old woman who was admitted with history of Crohn's disease, was complaining of diarrhea and abdominal pain for the last 2 weeks. The patient was also seeing Dr. Younger. The patient lost about 60 pounds recently. A CAT scan of the abdomen and pelvis was also done which showed diffusely thickened ascending, transverse, and descending colon with possible colitis and some small bowel loops were also noted. There is no history of any fever, rigors, or chills at this time. The surgical and gastrointestinal evaluation has been sought. Small-bowel ileus was also noted on the CAT scan. There is no history of any fever, rigors, or chills. PAST MEDICAL HISTORY: History of Crohn's, rest of the history and chart is also reviewed. HOME MEDICATIONS: Reviewed include Imodium, rest of the medications reviewed. ALLERGIES: Levaquin. FAMILY HISTORY: History of diabetes, hypertension, and cancer. SOCIAL HISTORY: Remote history of cocaine, THC. REVIEW OF SYSTEMS: A 14-point review is negative except as mentioned earlier. PHYSICAL EXAMINATION: VITAL SIGNS: Pulse is 94, blood pressure 150/70, and respirations 18. HEENT: Conjunctivae normal. NECK: No jugular venous distention. CARDIOVASCULAR: S1, S2. RESPIRATIONS: Diminished at the bases, few scattered rhonchi and crackles. ABDOMEN: Soft, mild diffuse tenderness. No guarding. No masses palpable. LEGS: No edema, no swelling. NERVOUS SYSTEM: Nonfocal. LABORATORY DATA: WBC 11.0, rest of the labs are noted. ASSESSMENT: 1. Severe abdominal pain with Crohn's disease acute exacerbation with diffuse colitis. 2. Small bowel ileus on the CAT scan. 3. Atrial fibrillation. 4. COPD. 5. Hypertension. 6. Hyperlipidemia. 7. History of seizure disorder. 8. Remote history of substance abuse. RECOMMENDATIONS AND DISCUSSION: This 63-year-old woman presented with multiple complex medical issues, we will monitor the patient closely. Continue with current management, pain management, IV steroids have been given. The patient will be on Solu-Medrol 20 IV q.8, symptomatic treatment. Resume the home medications and closely monitor. Guarded prognosis. Further recommendations to follow. MMODL / IJN: [id number] /
[2024-03-06] MEDS: IPRATROPIUM-ALBUTEROL 3 ML NEB INHALATION SCH (16:03)
[2024-03-06] MEDS: RIVAROXABAN 20 MG TAB PO SCH (16:59)
[2024-03-06] MEDS: FORMOTEROL FUMARATE 20 MCG/2 ML NEBU INHALATION SCH (20:46)
[2024-03-06] MEDS: levETIRAcetam 500 MG TAB PO SCH (21:40)
[2024-03-06] MEDS: GABAPENTIN 300 MG CAP PO SCH (21:40)
[2024-03-07 03:21] LABS: Erythrocyte Sedimentation Rate 25 mm/Hr (0-30)
[2024-03-07] MEDS: HYDROcodone/APAP 5-325MG 1 EACH TAB PO PRN (06:27)
[2024-03-07] MEDS: FLUTICASONE 50MCG/SPRAY NASAL 16GM EA NOSTRIL SCH (08:47)
[2024-03-07] MEDS ORDERED: NON FORMULARY DRUG (Omeprazole [Omeprazole] 20 MG Capsule.Dr) PO SCH (09:00)
[2024-03-07 09:44] LABS: Basophils # (A) 0.01 X 10*3/uL (0.00-0.10); Basophils % (A) 0.2 %; Eosinophils # (A) 0.01 X 10*3/uL (0.04-0.35); Eosinophils % (A) 0.2 %; HCT 27.6 % (37.2-46.3); HGB 8.6 g/dL (12.0-15.0); Lymphocytes # (A) 1.17 X 10*3/uL (0.90-5.00); Lymphocytes % (A) 17.6 %; MCH 24.4 pg (27.0-32.0); MCHC 31.2 g/dL (32.0-37.0); MCV 78.4 FL (80.0-97.0); Mean Platelet Volume 9.2 FL (9.5-12.2); Monocytes # (A) 0.29 X 10*3/uL (0.20-1.00); Monocytes % (A) 4.4 %; NRBC Per 100 WBC 0 X 10*3/uL (0.00-0.01); Neutrophils # (A) 5.13 X 10*3/uL (1.80-7.70); Neutrophils % (A) 77.3 %; Platelet Count 368 X 10*3/uL (140-440); RBC 3.52 X 10*6/uL (4.10-5.20); RDW 15.4 % (11.5-14.5); WBC 6.63 X 10*3/uL (4.50-10.00)
[2024-03-07 09:45] LABS: BUN/Creat Ratio 11.25 Ratio (12.00-20.00); Blood Urea Nitrogen 4.5 mg/dL (9.0-27.0); Calcium 7.4 mg/dL (8.7-10.3); Carbon Dioxide 25.6 mmol/L (21.6-31.8); Chloride 102 mmol/L (96-109); Glucose 103 mg/dL (70-110); Potassium 4.1 mmol/L (3.5-5.5); Sodium 135 mmol/L (135-145)
--- NOTE | 2024-03-07 11:19 | P.PN ---
Subjective Progress Note Date: 03/07/24 NAEON. No N/V. No F/C. No SOB or CP. Endorses mild crampy abdominal pain. Endorses BM and flatus. No melena or hematochezia. Objective - Vital Signs Vital signs: Vital Signs Temp 97.8 F 03/07/24 07:15 Pulse 78 03/07/24 07:15 Resp 19 03/07/24 07:15 BP 92/56 03/07/24 07:15 Pulse Ox 97 03/07/24 07:15 FiO2 Intake & Output 03/06/24 03/07/24 03/07/24 18:59 06:59 18:59 Weight 43.545 kg Other: # Voids 2 1 # Bowel Movements 2 - Exam Gen: AxO, NAD Pulm: non-labored respirations Abd: soft, minimally tender in B/L LQ. Non-distended Extrem: no edema seen - Labs CBC & Chem 7: 03/07/24 06:55 03/07/24 06:55 Labs: Abnormal Lab Results - Last 24 Hours (Table) 03/06/24 03/07/24 03/07/24 Range/Units 13:58 06:55 06:55 RBC 3.52 L (4.10-5.20) X 10*6/uL Hgb 8.6 L (12.0-15.0) g/dL Hct 27.6 L (37.2-46.3) % MCV 78.4 L (80.0-97.0) FL MCH 24.4 L (27.0-32.0) pg MCHC 31.2 L (32.0-37.0) g/dL RDW 15.4 H (11.5-14.5) % MPV 9.2 L (9.5-12.2) FL Eosinophils # 0.01 L (0.04-0.35) X 10*3/uL BUN 4.5 L (9.0-27.0) mg/dL Creatinine 0.4 L (0.6-1.5) mg/dL BUN/Creatinine Ratio 11.25 L (12.00-20.00) Ratio Calcium 7.4 L (8.7-10.3) mg/dL C-Reactive Protein 2.9 H (<1.0) mg/dL Assessment and Plan Assessment: Patient is a 63F with Crohn's disease who presents with ileus Plan: -Diet as tolerated -IVF hydration -Steroid therapy per GI -PRN pain and nausea control -Encourage ambulation -No acute surgical intervention Abdirizak Aguilar MD General Surgery
[2024-03-07] MEDS: HYDROmorphone 0.5 MG/0.5 ML SYRINGE IVP PRN ×2 (11:20→18:10)
[2024-03-07] MEDS: SODIUM CHLORIDE 0.9% 500 ML 500 ML IV ONE (11:21)
[2024-03-07] MEDS: HYDROmorphone 0.5 MG/0.5 ML SYRINGE IVP STA (12:38)
[2024-03-07] MEDS: amLODIPine 5 MG TAB PO SCH (15:41)
--- NOTE | 2024-03-07 21:11 | PN ---
PROGRESS NOTE DATE OF SERVICE: 03/07/2024 SUBJECTIVE: This is a 63-year-old woman, who was admitted with severe abdominal pain, Crohn's disease, also was noted to have diffuse colitis also. Surgery is following the patient closely. The patient is "also receiving pain management." Surgery has recommended diet and IV hydration and continue the steroids. PAST MEDICAL HISTORY: Reviewed. REVIEW OF SYSTEMS: A 14-point review is negative except as mentioned earlier. CURRENT MEDICATIONS: Reviewed and include DuoNeb, dose and rest of medications noted. PHYSICAL EXAMINATION: VITAL SIGNS: Pulse is 91, blood pressure 159/73, respirations 17. CHEST: A few scattered rhonchi and crackles. ABDOMEN: Soft. NERVOUS SYSTEM: Nonfocal. LABORATORY DATA: Hemoglobin 8.6, rest of the labs are noted. CRP is 2.9. ASSESSMENT: 1. Severe abdominal pain with Crohn's disease acute exacerbation with diffuse colitis. 2. Small bowel ileus on the CT scan, improving. 3. Atrial fibrillation. 4. Chronic obstructive pulmonary disease. 5. Hypertension. 6. Hyperlipidemia. 7. History of seizure disorder. 8. Remote history of substance abuse. RECOMMENDATIONS: Recommend to continue current medications and continue symptomatic treatment. Repeat labs. Hemoglobin is 8.6. Continue with steroids. Add Norvasc to the current regimen. Diet per Surgery. Guarded prognosis. Further recommendations to follow. MMODL / IJN: [id number] /
[2024-03-08 09:15] LABS: Basophils # (A) 0 X 10*3/uL (0.00-0.10); Basophils % (A) 0 %; Eosinophils # (A) 0 X 10*3/uL (0.04-0.35); Eosinophils % (A) 0 %; HCT 28.9 % (37.2-46.3); HGB 9.1 g/dL (12.0-15.0); Lymphocytes # (A) 0.96 X 10*3/uL (0.90-5.00); Lymphocytes % (A) 13.2 %; MCH 23.9 pg (27.0-32.0); MCHC 31.5 g/dL (32.0-37.0); MCV 75.9 FL (80.0-97.0); Mean Platelet Volume 8.7 FL (9.5-12.2); Monocytes # (A) 0.33 X 10*3/uL (0.20-1.00); Monocytes % (A) 4.5 %; NRBC Per 100 WBC 0 X 10*3/uL (0.00-0.01); Neutrophils # (A) 5.96 X 10*3/uL (1.80-7.70); Neutrophils % (A) 81.9 %; Platelet Count 377 X 10*3/uL (140-440); RBC 3.81 X 10*6/uL (4.10-5.20); RDW 15.4 % (11.5-14.5); WBC 7.28 X 10*3/uL (4.50-10.00)
[2024-03-08 09:27] LABS: ALT 8 U/L (8-44); AST 12 U/L (13-35); Albumin 2.5 g/dL (3.8-4.9); Albumin/Globulin Ratio 1.09 Ratio (1.60-3.17); Alkaline Phosphatase 67 U/L (41-126); BUN/Creat Ratio 13.25 Ratio (12.00-20.00); Blood Urea Nitrogen 5.3 mg/dL (9.0-27.0); Calcium 7.8 mg/dL (8.7-10.3); Carbon Dioxide 27.9 mmol/L (21.6-31.8); Chloride 103 mmol/L (96-109); Globulin 2.3 g/dL (1.6-3.3); Glucose 95 mg/dL (70-110); Potassium 3.9 mmol/L (3.5-5.5); Sodium 138 mmol/L (135-145); Total Bilirubin <0.2 mg/dL (0.3-1.2); Total Protein 4.8 g/dL (6.2-8.2)
--- NOTE | 2024-03-08 12:56 | P.PN ---
Subjective Progress Note Date: 03/08/24 patient currently feels better. She is requesting Morty. On exam vital signs appear stable. Abdomen soft. Resolving ileus with exacerbation Crohn's disease. Patient will be advanced to soft diet. Objective - Vital Signs Vital signs: Vital Signs Temp 98.1 F 03/08/24 07:41 Pulse 76 03/08/24 07:41 Resp 17 03/08/24 07:41 BP 94/57 03/08/24 07:41 Pulse Ox 92 L 03/08/24 08:48 FiO2 Intake & Output 03/07/24 03/08/24 03/08/24 18:59 06:59 18:59 Other: Voiding Method Bedside Commode # Voids 3 0 # Bowel Movements 1 - Labs CBC & Chem 7: 03/08/24 04:23 03/08/24 04:23 Labs: Abnormal Lab Results - Last 24 Hours (Table) 03/08/24 03/08/24 Range/Units 04:23 04:23 RBC 3.81 L (4.10-5.20) X 10*6/uL Hgb 9.1 L (12.0-15.0) g/dL Hct 28.9 L (37.2-46.3) % MCV 75.9 L (80.0-97.0) FL MCH 23.9 L (27.0-32.0) pg MCHC 31.5 L (32.0-37.0) g/dL RDW 15.4 H (11.5-14.5) % MPV 8.7 L (9.5-12.2) FL Eosinophils # 0 L (0.04-0.35) X 10*3/uL BUN 5.3 L (9.0-27.0) mg/dL Creatinine 0.4 L (0.6-1.5) mg/dL Calcium 7.8 L (8.7-10.3) mg/dL Total Bilirubin <0.2 L (0.3-1.2) mg/dL AST 12 L (13-35) U/L Total Protein 4.8 L (6.2-8.2) g/dL Albumin 2.5 L (3.8-4.9) g/dL Albumin/Globulin Ratio 1.09 L (1.60-3.17) Ratio
--- NOTE | 2024-03-08 21:32 | PN ---
PROGRESS NOTE DATE OF SERVICE: 03/08/2024 SUBJECTIVE: This 63-year-old woman was admitted with severe abdominal pain, acute exacerbation, closely monitored. No chest pain, no palpitations, no fever. OBJECTIVE: VITAL SIGNS: Pulse 76, blood pressure n, respirations 17. CHEST: Clear to auscultation. CARDIOVASCULAR: S1, S2. ABDOMEN: Soft, minimal diffuse discomfort. No rigidity. LABORATORY DATA: Hemoglobin 8.1. ASSESSMENT: 1. Severe abdominal pain with Crohn disease acute exacerbation with diffuse colitis. 2. Small bowel ileus on the CAT scan, improved. 3. Atrial fibrillation. 4. Multiple medical issues. RECOMMENDATIONS: Recommended to continue current management, continue symptomatic treatment. Continue with IV steroids. Continue with pain management. Symptomatic treatment. Closely monitor. I will hold off the Norvasc at this time because of the relative hypotension. Further recommendations to follow. TORIE / JEWELSN: [id number] / MTDD
[2024-03-09] MEDS ORDERED: DICYCLOMINE 10 MG CAP PO PRN (09:43)
[2024-03-09 10:52] LABS: Basophils # (A) 0.01 X 10*3/uL (0.00-0.10); Basophils % (A) 0.1 %; Eosinophils # (A) 0 X 10*3/uL (0.04-0.35); Eosinophils % (A) 0 %; HCT 28.6 % (37.2-46.3); HGB 8.8 g/dL (12.0-15.0); Lymphocytes # (A) 1.16 X 10*3/uL (0.90-5.00); Lymphocytes % (A) 15.3 %; MCH 24.2 pg (27.0-32.0); MCHC 30.8 g/dL (32.0-37.0); MCV 78.8 FL (80.0-97.0); Mean Platelet Volume 9.2 FL (9.5-12.2); Monocytes # (A) 0.55 X 10*3/uL (0.20-1.00); Monocytes % (A) 7.2 %; NRBC Per 100 WBC 0 X 10*3/uL (0.00-0.01); Neutrophils # (A) 5.84 X 10*3/uL (1.80-7.70); Platelet Count 383 X 10*3/uL (140-440); RBC 3.63 X 10*6/uL (4.10-5.20); RDW 15.5 % (11.5-14.5); WBC 7.59 X 10*3/uL (4.50-10.00)
[2024-03-09 11:01] LABS: BUN/Creat Ratio 29.75 Ratio (12.00-20.00); Blood Urea Nitrogen 11.9 mg/dL (9.0-27.0); Calcium 7.3 mg/dL (8.7-10.3); Carbon Dioxide 27.3 mmol/L (21.6-31.8); Chloride 101 mmol/L (96-109); Glucose 116 mg/dL (70-110); Potassium 3.7 mmol/L (3.5-5.5); Sodium 135 mmol/L (135-145)
--- NOTE | 2024-03-09 12:21 | P.PN ---
Subjective Progress Note Date: 03/09/24 Principal diagnosis: Crohn's disease This is a pleasant 63-year-old female who presented to the emergency department yesterday with complaints of abdominal pain, nausea vomiting and diarrhea. She has a history of Crohn's disease, atrial fibrillation, coronary artery disease, COPD, CVA/TIA, GERD, hyperlipidemia, hypertension, and seizure disorder. She states that she has had nausea vomiting and diarrhea for the last 5 to 6 days. States that she feels like it is a flare of her Crohn's. She is currently not on any medications. She reports having 5-6 loose bowel movements daily without any blood. Abdominal pain is across her abdomen. She states that she is lost about 60 pounds over the last 2 to 3 months. She had a CT of the abdomen pelvis reporting diffuse thickened ascending through transverse and descending colon., Small bowel ileus also may be present slight prominence of fluid-filled small bowel loops within the mid and distal abdomen. Gastroenterology consulted for small bowel ileus. Patient was diagnosed with Crohn's disease around 2018. She initially was following with Dr. Younger however she missed multiple appointments and was noncompliant with medications. Last EGD and colonoscopy was in 2018. Upper endoscopy revealed mild gastritis and colonoscopy reported ileocolitis and diverticulosis. She states abdominal pain is improved some. No rectal bleeding. No nausea or vomiting at this time. She denies any fevers or chills, no shortness of breath or chest pain. WBC 11.2 hemoglobin 9.7 platelet count 397,000 sodium 131 potassium 3.9 BUN 8 creatinine 0.3 total bilirubin 0.3 AST 19 ALT 10 alkaline phosphatase 89 C-reactive protein 2.6 sed rate currently pending. 03/09/2024 Patient seen and examined today as a follow-up. States she is having some abdominal cramping. Mostly in her lower abdomen. She is only having diarrhea 1-2 times a day nonbloody. Hemoglobin 8.8. Stool C. difficile was negative. Stool cultures preliminary with no Salmonella or Shigella. No E. coli. She has been afebrile. Having nausea but no vomiting. Objective - Vital Signs Vital signs: Vital Signs Temp 97.9 F 03/09/24 07:34 Pulse 84 03/09/24 09:35 Resp 18 03/09/24 07:34 BP 97/53 03/09/24 08:02 Pulse Ox 95 03/09/24 09:14 FiO2 Intake & Output 03/08/24 03/09/24 03/09/24 18:59 06:59 18:59 Other: Voiding Method Bedside Commode # Voids 3 2 1 # Bowel Movements 1 - Exam General appearance: The patient is alert, oriented, appears in no acute distress. HET: Head is normocephalic and atraumatic. Conjunctiva pink. Sclera anicteric. Neck: Supple without lymphadenopathy. Abdomen: Soft, lower abdominal tenderness, nondistended with bowel sounds. No guarding or rigidity. Extremities: Normal skin color and turgor. No pedal edema Skin: No rashes, no jaundice Neurological: No focal deficits. Alert and oriented. - Labs CBC & Chem 7: 03/09/24 06:27 03/09/24 06:27 Assessment and Plan (1) Crohn's disease Narrative/Plan: 63-year-old female presenting with abdominal pain, nausea vomiting and diarrhea. Patient has history of Crohn's diagnosed in 2018 who had initially followed with gastroenterology but then missed several appointments and was noncompliant with medications. Patient states symptoms are consistent with a Crohn's flare. Last time she was hospitalized for Crohn's flare was a couple years ago. CT abdomen pelvis consistent with thickened colon, possible small bowel ileus. No plans on endoscopic evaluation at this time. Recommend IV steroids for 2 days then transition to oral prednisone taper starting at 40 mg daily. Discussed importance of medical compliance and patient is agreeable to follow-up with gastroenterology on discharge. Current Visit: No Status: Acute Code(s): K50.90 - CROHN'S DISEASE, UNSPECIFIED, WITHOUT COMPLICATIONS SNOMED Code(s): 74635461 (2) Abdominal pain Current Visit: No Status: Acute Code(s): R10.9 - UNSPECIFIED ABDOMINAL PAIN SNOMED Code(s): 72683260 (3) Atrial fibrillation Current Visit: No Status: Acute Code(s): I48.91 - UNSPECIFIED ATRIAL FIBRILLATION SNOMED Code(s): 69981984 (4) COPD (chronic obstructive pulmonary disease) Current Visit: No Status: Acute Code(s): J44.9 - CHRONIC OBSTRUCTIVE PULMONARY DISEASE, UNSPECIFIED SNOMED Code(s): 19703897 (5) Nausea & vomiting Current Visit: No Status: Acute Code(s): R11.2 - NAUSEA WITH VOMITING, UNSPECIFIED SNOMED Code(s): 67456765 Plan: 1. Continue symptomatic and supportive care 2. Antiemetics as needed 3. Protonix 40 mg daily for GI prophylaxis 4. Patient is on soft diet 5. Stool C. difficile and stool culture ordered 6. Bentyl ordered as needed 7. Will transition to prednisone 40 mg daily. Patient to be discharged home on a taper dose weekly, this was discussed with patient. 8. No plans on endoscopic evaluation at this time 9. Recommend outpatient follow-up and medication compliance Thank you for this consultation, anticipate discharge in the next [address] Jack Younger I agree with the dictator's note, documented as a scribe by Kajal Napier.
--- NOTE | 2024-03-09 12:23 | CDI ---
Documentation Clarification Form Date: 03/09/2024 12:05:19 PM From: Shoshana Gibbons RN, CCDS Phone: [phone] Admit Date: 03/05/2024 04:17:00 PM Patient Name: Fabiola Giraldo Visit Number: [id number] Discharge Date: ATTENTION: The Clinical Documentation Specialists (CDI) and [facility] Coding Staff appreciate your assistance in clarifying documentation. Please respond to the clarification below the line at the bottom and electronically sign. The CDI & [facility] Coding staff will review the response and follow-up if needed. Please note: Queries are made part of the Legal Health Record. If you have any questions, please contact the author of this message via ITS. Dr. Buddy Walker Patient has a documented BMI of 14.6. Additional clarification is requested. History/Risk Factors: Crohn's disease, COPD, A fib, CAD, HTN and polysubstance abuse. Presents with abdominal pain, nausea and vomiting. Admitted with acute exacerbation of Crohn's with diffuse colitis. Clinical Indicators: 03/05 ED: "cachectic." 03/06 H&P: "The patient lost about 60 pounds recently." 03/06 GI: "Abdomen: Soft, thin, tender to palpation, nondistended. Crohn's disease." Patients weight is 43.5 kg Patients height is 5ft 8in Calculated BMI is 14.6 Treatments: Ensure clear TID, increase po intake, monitor po intake, IV Reglan 5mg x1 on 03/05, IV Zofran 4mg Q6H prn 03/05-6/03/06 Dietary Consult: Underweight, inadequate energy intake Please clarify, is there is an additional diagnosis that is clinically appropriate for this patient? [ ] Cachexia [ ] Malnutrition, (further specify mild, moderate or severe) [ ] Underweight [ ] No additional diagnosis/not clinically significant [ ] Other, please specify [ ] Unable to determine Malnutrition, moderate MTDD
[2024-03-09] MEDS: HYDROcodone/APAP 5-325MG 1 EACH TAB PO PRN (13:29)
--- NOTE | 2024-03-09 19:14 | P.PN ---
Subjective Progress Note Date: 03/09/24 Principal diagnosis: Colitis Patient still having loose stools. No nausea or vomiting. Appetite diminished. Tolerating diet. White blood cell count normal. Objective - Vital Signs Vital signs: Vital Signs Temp 98.8 F 03/09/24 13:32 Pulse 80 03/09/24 16:40 Resp 18 03/09/24 13:32 BP 113/66 03/09/24 13:32 Pulse Ox 91 L 03/09/24 13:32 FiO2 Intake & Output 03/09/24 03/09/24 03/10/24 06:59 18:59 06:59 Other: Voiding Method Bedside Commode Bedside Commode # Voids 2 1 # Bowel Movements 1 - Exam Abdomen: Soft, nontender, nondistended - Labs CBC & Chem 7: 03/09/24 06:27 03/09/24 06:27 Labs: Abnormal Lab Results - Last 24 Hours (Table) 03/09/24 03/09/24 Range/Units 06:27 06:27 RBC 3.63 L (4.10-5.20) X 10*6/uL Hgb 8.8 L (12.0-15.0) g/dL Hct 28.6 L (37.2-46.3) % MCV 78.8 L (80.0-97.0) FL MCH 24.2 L (27.0-32.0) pg MCHC 30.8 L (32.0-37.0) g/dL RDW 15.5 H (11.5-14.5) % MPV 9.2 L (9.5-12.2) FL Eosinophils # 0 L (0.04-0.35) X 10*3/uL Creatinine 0.4 L (0.6-1.5) mg/dL BUN/Creatinine Ratio 29.75 H (12.00-20.00) Ratio Glucose 116 H (70-110) mg/dL Calcium 7.3 L (8.7-10.3) mg/dL Microbiology - Last 24 Hours (Table) 03/06/24 11:50 Stool Culture - Preliminary Stool Assessment and Plan (1) Colitis Narrative/Plan: 63-year-old female with colitis. Continue steroid treatment per GI. No surgical intervention planned. Defer to GI. Will sign off. Please consult if needed. Current Visit: No Status: Acute Code(s): K52.9 - NONINFECTIVE GASTROENTERITIS AND COLITIS, UNSPECIFIED SNOMED Code(s): 17060543
--- NOTE | 2024-03-09 21:16 | PN ---
PROGRESS NOTE DATE OF SERVICE: 03/09/2024 SUBJECTIVE: This is a 63-year-old woman, who was admitted with abdominal pain, Crohn's disease, acute exacerbation, improving significantly. No chest pain. No palpitation. OBJECTIVE: VITAL SIGNS: Pulse is 80, blood pressure 97/53, respirations 16. CHEST: A few scattered rhonchi. ABDOMEN: Soft, mild diffuse tenderness. LEGS: No edema. NERVOUS SYSTEM: Nonfocal. LABORATORY DATA: Hemoglobin 8.8. ASSESSMENT: 1. Severe abdominal pain with Crohn's disease acute exacerbation with diffuse colitis. 2. Small bowel ileus on the CAT scan, improved. 3. Atrial fibrillation. 4. Multiple medical issues. RECOMMENDATIONS: Recommend to continue with pain management. Advance diet. Increase ambulation. Possible discharge in the next 24 hours. MMODL / IJN: [id number] /
[2024-03-10] MEDS: predniSONE 20 MG TAB PO SCH (08:04)
[2024-03-10] MEDS: DICYCLOMINE 10 MG CAP PO SCH (10:42)
[2024-03-10] MEDS: ALPRAZolam 0.25 MG TAB PO PRN (10:42)
[2024-03-10] MEDS: methylPREDNISolone SOD SUCCI 40 MG/ML 1 ML VIAL IV SCH (14:09)
--- NOTE | 2024-03-10 16:36 | P.PN ---
Subjective Progress Note Date: 03/10/24 Principal diagnosis: Crohn's disease This is a pleasant 63-year-old female who presented to the emergency department yesterday with complaints of abdominal pain, nausea vomiting and diarrhea. She has a history of Crohn's disease, atrial fibrillation, coronary artery disease, COPD, CVA/TIA, GERD, hyperlipidemia, hypertension, and seizure disorder. She states that she has had nausea vomiting and diarrhea for the last 5 to 6 days. States that she feels like it is a flare of her Crohn's. She is currently not on any medications. She reports having 5-6 loose bowel movements daily without any blood. Abdominal pain is across her abdomen. She states that she is lost about 60 pounds over the last 2 to 3 months. She had a CT of the abdomen pelvis reporting diffuse thickened ascending through transverse and descending colon., Small bowel ileus also may be present slight prominence of fluid-filled small bowel loops within the mid and distal abdomen. Gastroenterology consulted for small bowel ileus. Patient was diagnosed with Crohn's disease around 2018. She initially was following with Dr. Younger however she missed multiple appointments and was noncompliant with medications. Last EGD and colonoscopy was in 2018. Upper endoscopy revealed mild gastritis and colonoscopy reported ileocolitis and diverticulosis. She states abdominal pain is improved some. No rectal bleeding. No nausea or vomiting at this time. She denies any fevers or chills, no shortness of breath or chest pain. WBC 11.2 hemoglobin 9.7 platelet count 397,000 sodium 131 potassium 3.9 BUN 8 creatinine 0.3 total bilirubin 0.3 AST 19 ALT 10 alkaline phosphatase 89 C-reactive protein 2.6 sed rate currently pending. 03/09/2024 Patient seen and examined today as a follow-up. States she is having some abdominal cramping. Mostly in her lower abdomen. She is only having diarrhea 1-2 times a day nonbloody. Hemoglobin 8.8. Stool C. difficile was negative. Stool cultures preliminary with no Salmonella or Shigella. No E. coli. She has been afebrile. Having nausea but no vomiting. 03/10/2024 Patient seen and examined today as a follow-up. She states that she is not feeling well today. She has cough and is wheezing. Also states she is having some intermittent abdominal cramping. States she has not been getting getting any of the dicyclomine. She states she had 4 loose bowel movements yesterday, nonbloody. No nausea or vomiting. She has been afebrile. Objective - Vital Signs Vital signs: Vital Signs Temp 98.4 F 03/10/24 07:18 Pulse 84 03/10/24 07:18 Resp 15 03/10/24 07:18 BP 109/62 03/10/24 07:18 Pulse Ox 96 03/10/24 07:18 FiO2 Intake & Output 03/09/24 03/10/24 03/10/24 18:59 06:59 18:59 Other: Voiding Method Bedside Commode Bedside Commode # Voids 1 1 # Bowel Movements 1 - Exam General appearance: The patient is alert, oriented, appears in no acute distress. HET: Head is normocephalic and atraumatic. Conjunctiva pink. Sclera anicteric. Neck: Supple without lymphadenopathy. Trachea midline. Heart: Regular. Lungs: Equal expansion, normal respiratory effort. Bilateral wheezes. Abdomen: Soft, lower abdominal tenderness, nondistended. Skin: No rashes. No jaundice. Extremities: Normal skin color and turgor. No pedal edema. Neurological: No focal deficits. Alert and oriented x3. - Labs CBC & Chem 7: 03/09/24 06:27 03/09/24 06:27 Labs: Abnormal Lab Results - Last 24 Hours (Table) 03/09/24 03/09/24 Range/Units 06:27 06:27 RBC 3.63 L (4.10-5.20) X 10*6/uL Hgb 8.8 L (12.0-15.0) g/dL Hct 28.6 L (37.2-46.3) % MCV 78.8 L (80.0-97.0) FL MCH 24.2 L (27.0-32.0) pg MCHC 30.8 L (32.0-37.0) g/dL RDW 15.5 H (11.5-14.5) % MPV 9.2 L (9.5-12.2) FL Eosinophils # 0 L (0.04-0.35) X 10*3/uL Creatinine 0.4 L (0.6-1.5) mg/dL BUN/Creatinine Ratio 29.75 H (12.00-20.00) Ratio Glucose 116 H (70-110) mg/dL Calcium 7.3 L (8.7-10.3) mg/dL Microbiology - Last 24 Hours (Table) 03/06/24 11:50 Stool Culture - Final Stool Assessment and Plan (1) Crohn's disease Narrative/Plan: 63-year-old female presenting with abdominal pain, nausea vomiting and diarrhea. Patient has history of Crohn's diagnosed in 2018 who had initially followed with gastroenterology but then missed several appointments and was noncompliant with medications. Patient states symptoms are consistent with a Crohn's flare. Last time she was hospitalized for Crohn's flare was a couple years ago. CT abdomen pelvis consistent with thickened colon, possible small bowel ileus. No plans on endoscopic evaluation at this time. Recommend IV steroids for 2 days then transition to oral prednisone taper starting at 40 mg daily. Discussed importance of medical compliance and patient is agreeable to follow-up with gastroenterology on discharge. Current Visit: No Status: Acute Code(s): K50.90 - CROHN'S DISEASE, U NSPECIFIED, WITHOUT COMPLICATIONS SNOMED Code(s): 88772342 (2) Abdominal pain Current Visit: No Status: Acute Code(s): R10.9 - UNSPECIFIED ABDOMINAL PAIN SNOMED Code(s): 45577780 (3) Atrial fibrillation Current Visit: No Status: Acute Code(s): I48.91 - UNSPECIFIED ATRIAL FIBRILLATION SNOMED Code(s): 63632179 (4) COPD (chronic obstructive pulmonary disease) Current Visit: No Status: Acute Code(s): J44.9 - CHRONIC OBSTRUCTIVE PULMONARY DISEASE, UNSPECIFIED SNOMED Code(s): 48033042 (5) Nausea & vomiting Current Visit: No Status: Acute Code(s): R11.2 - NAUSEA WITH VOMITING, UNSPECIFIED SNOMED Code(s): 27478387 Plan: 1. Continue symptomatic and supportive care 2. Antiemetics as needed 3. Protonix 40 mg daily for GI prophylaxis 4. Patient is on soft diet 5. Stool C. difficile and stool culture ordered 6. Bentyl ordered, will change to scheduled 7. Patient was transition to oral prednisone to start today. 40 mg daily. 8. No plans on endoscopic evaluation at this time 9. Recommend outpatient follow-up and medication compliance 10. Rest of medical management per primary medical team. Thank you for this consultation, we will continue to follow. Dr. Jack Younger I agree with the dictator's note, documented as a scribe by Kajal Napier.
--- NOTE | 2024-03-10 22:34 | P.PN ---
Subjective This is a pleasant 63 years old female with past medical history of Crohn's disease Presents with signs symptoms of small bowel obstruction or ileus secondary to acute colitis thought secondary to Crohn's disease has been treated with IV Solu-Medrol 20 mg every 8 hours, today shows significant improvement, GI team were planning to switch the patient to prednisone 40 mg. Patient however is developing more shortness of breath and wheezing with limited air entry given her history of acute COPD we will going to put the patient on IV Solu-Medrol 40 mg with close monitoring. Also will give bronchodilators and elation therapy Surgery team signed off the case Patient is awake alert with minimal or no GI symptoms and tolerates diet. Patient states she had diarrhea about 3-4 times per day, usually eats once or twice. Vital stable, labs reviewed C. difficile is negative Procalcitonin 0.05 CT of the abdomen pelvis showing diffuse colonic thickening of the ascending transverse and descending colon Chest x-ray is negative for acute process Patient with history of A-fib on Xarelto Patient is saturating 93% on 2 L oxygen Objective - Vital Signs Vital signs: Vital Signs Temp 98.8 F 03/10/24 13:15 Pulse 85 03/10/24 13:15 Resp 18 03/10/24 13:15 BP 120/71 03/10/24 13:15 Pulse Ox 93 L 03/10/24 13:15 FiO2 Intake & Output 03/09/24 03/10/24 03/10/24 18:59 06:59 18:59 Weight 43.545 kg Other: Voiding Method Bedside Commode Bedside Commode Bedside Commode # Voids 1 1 # Bowel Movements 1 - Exam GENERAL: The patient is alert and oriented x3, not in any acute distress. Well developed, well nourished. HEENT: Pupils are round and equally reacting to light. EOMI. No scleral icterus. No conjunctival pallor. Normocephalic, atraumatic. No pharyngeal erythema. No t hyromegaly. CARDIOVASCULAR: S1 and S2 present. No murmurs, rubs, or gallops. -PULMONARY: Chest is clear to auscultation, bilateral wheezing , no crackles. ABDOMEN: Soft, nontender, nondistended, normoactive bowel sounds. No palpable organomegaly. MUSCULOSKELETAL: No joint swelling or deformity. EXTREMITIES: No cyanosis, clubbing, or pedal edema. NEUROLOGICAL: Gross neurological examination did not reveal any focal deficits. SKIN: No rashes. no petechiae. - Labs CBC & Chem 7: 03/09/24 06:27 03/09/24 06:27 Labs: Microbiology - Last 24 Hours (Table) 03/06/24 11:50 Stool Culture - Final Stool Assessment and Plan Assessment: Acute colitis secondary to chronic disease Small bowel obstruction/ileus secondary to above improving Patient developing acute COPD exacerbation Acute on chronic hypoxic respiratory failure A-fib on Xarelto, rate therapy controlled Seizure disorder on medication Hypertension Anxiety, on steroids Plan: Continue with IV Solu-Medrol increased dose to 40 mg every 8 hours Continue with bronchodilator Pulmonary team consult GI team following the case for Crohn's disease exacerbation Steroids can be switched to oral dose per GI service, kept IV for pulmonary disease On Xarelto GI prophylaxis on Protonix
[2024-03-11] MEDS: LOPERAMIDE 2 MG CAP PO PRN (02:14)
--- NOTE | 2024-03-11 10:46 | P.PN ---
Subjective This is a pleasant 63 years old female with past medical history of Crohn's disease Presents with signs symptoms of small bowel obstruction or ileus secondary to acute colitis thought secondary to Crohn's disease has been treated with IV Solu-Medrol 20 mg every 8 hours, today shows significant improvement, GI team were planning to switch the patient to prednisone 40 mg. Patient however is developing more shortness of breath and wheezing with limited air entry given her history of acute COPD we will going to put the patient on IV Solu-Medrol 40 mg with close monitoring. Also will give bronchodilators and elation therapy Surgery team signed off the case Patient is awake alert with minimal or no GI symptoms and tolerates diet. Patient states she had diarrhea about 3-4 times per day, usually eats once or twice. Vital stable, labs reviewed C. difficile is negative Procalcitonin 0.05 CT of the abdomen pelvis showing diffuse colonic thickening of the ascending transverse and descending colon Chest x-ray is negative for acute process Patient with history of A-fib on Xarelto Patient is saturating 93% on 2 L oxygen 03/11/2024 Patient is awake and alert. Her expiratory wheezing looks better today but still has shortness of breath, patient thinks she could be ready for discharge tomorrow. No chest pain Bowel movement also improving she had twice yesterday and once this morning compared to 3 to 4 x 3 days ago. Her bowel movements still loose but no abdominal pain and tolerates diet Patient can be discharged per GI team already Possible discharge in 24 to 48 hours Objective - Vital Signs Vital signs: Vital Signs Temp 98 F 03/11/24 07:02 Pulse 98 03/11/24 09:10 Resp 18 03/11/24 07:02 BP 119/69 03/11/24 07:02 Pulse Ox 96 03/11/24 08:56 FiO2 Intake & Output 03/10/24 03/11/24 03/11/24 18:59 06:59 18:59 Weight 43.545 kg Other: Voiding Method Bedside Commode Bedside Commode # Voids 2 2 # Bowel Movements 2 - Exam GENERAL: The patient is alert and oriented x3, not in any acute distress. Well developed, well nourished. HEENT: Pupils are round and equally reacting to light. EOMI. No scleral icterus. No conjunctival pallor. Normocephalic, atraumatic. No pharyngeal erythema. No thyromegaly. CARDIOVASCULAR: S1 and S2 present. No murmurs, rubs, or gallops. -PULMONARY: Chest is clear to auscultation, bilateral wheezing , no crackles. ABDOMEN: Soft, nontender, nondistended, normoactive bowel sounds. No palpable organomegaly. MUSCULOSKELETAL: No joint swelling or deformity. EXTREMITIES: No cyanosis, clubbing, or pedal edema. NEUROLOGICAL: Gross neurological examination did not reveal any focal deficits. SKIN: No rashes. no petechiae. - Labs CBC & Chem 7: 03/09/24 06:27 03/09/24 06:27 Labs: Microbiology - Last 24 Hours (Table) 03/06/24 11:50 Stool Culture - Final Stool Assessment and Plan Assessment: Acute colitis secondary to chronic disease Small bowel obstruction/ileus secondary to above improving Patient developing acute COPD exacerbation Acute on chronic hypoxic respiratory failure A-fib on Xarelto, rate therapy controlled Seizure disorder on medication Hypertension Anxiety, on steroids Plan: Continue with IV Solu-Medrol increased dose to 40 mg every 8 hours Continue with bronchodilator Pulmonary team consult GI team following the case for Crohn's disease exacerbation Steroids can be switched to oral dose per GI service, kept IV for pulmonary disease On Xarelto GI prophylaxis on Protonix
--- NOTE | 2024-03-11 11:48 | P.PN ---
Subjective Progress Note Date: 03/11/24 Principal diagnosis: Crohn's disease This is a pleasant 63-year-old female who presented to the emergency department yesterday with complaints of abdominal pain, nausea vomiting and diarrhea. She has a history of Crohn's disease, atrial fibrillation, coronary artery disease, COPD, CVA/TIA, GERD, hyperlipidemia, hypertension, and seizure disorder. She states that she has had nausea vomiting and diarrhea for the last 5 to 6 days. States that she feels like it is a flare of her Crohn's. She is currently not on any medications. She reports having 5-6 loose bowel movements daily without any blood. Abdominal pain is across her abdomen. She states that she is lost about 60 pounds over the last 2 to 3 months. She had a CT of the abdomen pelvis reporting diffuse thickened ascending through transverse and descending colon., Small bowel ileus also may be present slight prominence of fluid-filled small bowel loops within the mid and distal abdomen. Gastroenterology consulted for small bowel ileus. Patient was diagnosed with Crohn's disease around 2018. She initially was following with Dr. Younger however she missed multiple appointments and was noncompliant with medications. Last EGD and colonoscopy was in 2018. Upper endoscopy revealed mild gastritis and colonoscopy reported ileocolitis and diverticulosis. She states abdominal pain is improved some. No rectal bleeding. No nausea or vomiting at this time. She denies any fevers or chills, no shortness of breath or chest pain. WBC 11.2 hemoglobin 9.7 platelet count 397,000 sodium 131 potassium 3.9 BUN 8 creatinine 0.3 total bilirubin 0.3 AST 19 ALT 10 alkaline phosphatase 89 C-reactive protein 2.6 sed rate currently pending. 03/09/2024 Patient seen and examined today as a follow-up. States she is having some abdominal cramping. Mostly in her lower abdomen. She is only having diarrhea 1-2 times a day nonbloody. Hemoglobin 8.8. Stool C. difficile was negative. Stool cultures preliminary with no Salmonella or Shigella. No E. coli. She has been afebrile. Having nausea but no vomiting. 03/10/2024 Patient seen and examined today as a follow-up. She states that she is not feeling well today. She has cough and is wheezing. Also states she is having some intermittent abdominal cramping. States she has not been getting getting any of the dicyclomine. She states she had 4 loose bowel movements yesterday, nonbloody. No nausea or vomiting. She has been afebrile. 524 Patient seen and examined today as a follow-up. States abdominal pain is better. She is now on dicyclomine scheduled 4 times daily. States breathing is also improved as well as cough. She is currently on Solu-Medrol 40 mg IV every 6 hours for COPD. Pulmonology is following patient. States she is having 2-4 loose nonbloody bowel movements daily. She has been afebrile. Objective - Vital Signs Vital signs: Vital Signs Temp 98 F 03/11/24 07:02 Pulse 98 03/11/24 09:10 Resp 18 03/11/24 07:02 BP 119/69 03/11/24 07:02 Pulse Ox 96 03/11/24 08:56 FiO2 Intake & Output 03/10/24 03/11/24 03/11/24 18:59 06:59 18:59 Weight 43.545 kg Other: Voiding Method Bedside Commode Bedside Commode # Voids 2 2 # Bowel Movements 2 - Exam General appearance: The patient is alert, oriented, appears in no acute distress. HET: Head is normocephalic and atraumatic. Conjunctiva pink. Sclera anicteric. Neck: Supple without lymphadenopathy. Trachea midline. Heart: Regular. Lungs: Equal expansion, normal respiratory effort. Bilateral wheezes. Abdomen: Soft, lower abdominal tenderness, nondistended. Skin: No rashes. No jaundice. Extremities: Normal skin color and turgor. No pedal edema. Neurological: No focal deficits. Alert and oriented x3. - Labs CBC & Chem 7: 03/09/24 06:27 03/09/24 06:27 Labs: Microbiology - Last 24 Hours (Table) 03/06/24 11:50 Stool Culture - Final Stool Assessment and Plan (1) Crohn's disease Narrative/Plan: 63-year-old female presenting with abdominal pain, nausea vomiting and diarrhea. Patient has history of Crohn's diagnosed in 2018 who had initially followed with gastroenterology but then missed several appointments and was noncompliant with medications. Patient states symptoms are consistent with a Crohn's flare. Last time she was hospitalized for Crohn's flare was a couple years ago. CT abdomen pelvis consistent with thickened colon, possible small bowel ileus. No plans on endoscopic evaluation at this time. Recommend IV steroids for 2 days then transition to oral prednisone taper starting at 40 mg daily. Discussed importance of medical compliance and patient is agreeable to follow-up with gastroenterology on discharge. Current Visit: No Status: Acute Code(s): K50.90 - CROHN'S DISEASE, UNSPECIFIED, WITHOUT COMPLICATIONS SNOMED Code(s): 49050610 (2) Abdominal pain Current Visit: No Status: Acute Code(s): R10.9 - UNSPECIFIED ABDOMINAL PAIN SNOMED Code(s): 23260892 (3) Atrial fibrillation Current Visit: No Status: Acute Code(s): I48.91 - UNSPECIFIED ATRIAL FIBRILLATION SNOMED Code(s): 16407617 (4) COPD (chronic obstructive pulmonary disease) Narrative/Plan: Pulmonology following. Patient was started on Solu-Medrol 40 mg IV every 6 hours. Continue with their recommendations. Current Visit: No Status: Acute Code(s): J44.9 - CHRONIC OBSTRUCTIVE PULMONARY DISEASE, UNSPECIFIED SNOMED Code(s): 89705727 (5) Nausea & vomiting Narrative/Plan: Resolved Current Visit: No Status: Acute Code(s): R11.2 - NAUSEA WITH VOMITING, UNSPECIFIED SNOMED Code(s): 05574056 Plan: 1. Continue symptomatic and supportive care 2. Antiemetics as needed 3. Protonix 40 mg daily for GI prophylaxis 4. Patient is on soft diet 5. Stool C. difficile and stool culture ordered and negative 6. Continue Bentyl 7. Continue steroid dose recommendations from medical and pulmonology for COPD. Recommend outpatient taper 40 mg daily x 1 week with taper by 10 mg weekly for Crohn's disease 8. No plans on endoscopic evaluation at this time 9. Recommend outpatient follow-up and medication compliance 10. Rest of medical management per primary medical team. Thank you for this consultation, patient is stable from a gastroenterology standpoint. We will sign off at this time. Dr. Jack Younger I agree with the dictator's note, documented as a scribe by Kajal Napier.
[2024-03-12 03:01] VITALS: TEMP 98.1
[2024-03-12 08:02] VITALS: BP 174/81; PULSE 83; RESP 18
[2024-03-12] MEDS: predniSONE 20 MG TAB PO STA (10:23)
--- NOTE | 2024-03-12 11:58 | P.DS ---
Providers Date of admission: 03/05/24 16:17 Attending physician: Varun Cortez MD Consults: 03/05/24 20:52 Consult Physician Routine Consulting Provider: Aby Younger Consult Reason/Comments: small bowel ileus Do you want consulting provider notified?: Yes 03/10/24 22:35 Consult Physician Routine Consulting Provider: Jaun Cortez Consult Reason/Comments: copd Do you want consulting provider notified?: Yes, Notify in am Primary care physician: [facility] Course: Diagnoses: Acute colitis secondary to chronic disease Small bowel obstruction/ileus secondary to above improving Patient developing acute COPD exacerbation Acute on chronic hypoxic respiratory failure A-fib on Xarelto, rate therapy controlled Seizure disorder on medication Hypertension Anxiety, on steroids Hospital course: This is a pleasant 63 years old female with past medical history of Crohn's disease Presents with signs symptoms of small bowel obstruction or ileus secondary to acute colitis thought secondary to Crohn's disease has been treated with IV Solu-Medrol 20 mg every 8 hours, today shows significant improvement, GI team were planning to switch the patient to prednisone 40 mg. Patient however is dev eloping more shortness of breath and wheezing with limited air entry given her history of acute COPD we will going to put the patient on IV Solu-Medrol 40 mg with close monitoring. Also will give bronchodilators and elation therapy. It looks after 2 days of her dose of IV Solu-Medrol 40 mg patient dyspnea and wheezing improving. She is saturating well to 95% on 2.5 L/m oxygen which is documented she has it at home. Patient was denying any other new symptoms or acute process. She is agreeable to go home today however she was concerned about her pain medication. She used to take Suboxone. And she was to follow-up with pain clinic with [facility] was checked with the pharmacy today, her last prescription for Suboxone was on 01/20/2024 for 30-day at a rate of once a day. And it was confirmed with the patient finished her Suboxone and she does not have more and that she is not going to follow-up with Dr. tay office. We contacted our pain clinic and they confirmed today can prescribe Suboxone if needed but they need referral from PCP Dr. Wright. This information was relayed to the patient and she agrees to follow-up with Dr. Wright to get referral to the new pain clin ic Patient is going to be discharged on tapered prednisone per GI team every week, GI team already present prescription to the pharmacy Patient was cleared for discharge by GI team Problems and management plan were discussed with the patient and he verbalized understanding and acceptance Patient was found stable and can be discharged home in guarded prognosis however he needs follow-up as an outpatient. Patient was instructed to follow up with PCP Dr. Wright within one week and patient agrees Patient was instructed to follow-up with GI clinic Dr. Fisher in 2 weeks. Plan to follow-up with manager location Dr. Dennis in 2 weeks Also patient was instructed to follow-up with her pain clinic in 5 to 7 days and she agrees. Physical exam Gen: patient is a AAOx3, no distress CVS: S1-S2, RRR, no murmur Lungs: B/L CTA, no wheezing Abdomen: soft, no distention, no tenderness, positive bowel sounds Extremity: no leg edema or induration Time spent more than 35 minutes Plan - Discharge Summary New Discharge Prescriptions: New Pantoprazole [Protonix] 40 mg PO AC-BRKFST #30 tab Ipratropium-Albuterol Nebulize [Duoneb 0.5 mg-3 mg/3 ml Soln] 3 ml INHALATION RT-QID PRN each PRN Reason: Shortness Of Breath Or Wheezing Ondansetron Odt [Zofran Odt] 4 mg PO Q8HR PRN #20 tab PRN Reason: Nausea predniSONE 0 mg PO DIRECTED #70 tab HYDROcodone/APAP 7.5-325MG [[place] 7.5-325] 1 tab PO Q6HR PRN 3 Days #12 tab PRN Reason: Pain Continue Glycopyrrolate/Formoterol Fum [Bevespi Aerosphere Inhaler] 2 puff INHALATION RT-BID Fluticasone Nasal Carson [Flonase Nasal Carson] 1 spr EA NOSTRIL DAILY QUEtiapine [SEROquel] 400 mg PO HS 30 Days #30 tab levETIRAcetam [Keppra] 1,000 mg PO BID Metoprolol Succinate (ER) [Toprol XL] 50 mg PO DAILY Rivaroxaban [Xarelto] 20 mg PO DAILY Gabapentin [Neurontin] 300 mg PO BID Buprenorphine/Naloxone 8Mg/2Mg [Suboxone 8-2Mg Film] 1 film SL DAILY Omeprazole 20 mg PO DAILY Ergocalciferol (Vitamin D2) [Drisdol (50,000 Iu)] 1,250 mcg PO Q14D Albuterol Sulfate [Albuterol Sulfate Hfa] 2 puff INHALATION RT-Q6H PRN #1 each PRN Reason: Shortness Of Breath Ipratropium-Albuterol Nebulize [Duoneb 0.5 mg-3 mg/3 ml Soln] 3 ml INHALATION RT-QID #100 each Ferrous Sulfate [Iron (65 MG Elemental)] 325 mg PO BID Loperamide HCl [Imodium A-D] 2 - 4 mg PO QID PRN MDD 16 mg PRN Reason: Diarrhea Discharge Medication List Glycopyrrolate/Formoterol Fum [Bevespi Aerosphere Inhaler] 2 puff INHALATION RT- BID 11/24/19 [History] Fluticasone Nasal Carson [Flonase Nasal [place]] 1 spr EA NOSTRIL DAILY 03/27/20 [History] Albuterol Sulfate [Albuterol Sulfate Hfa] 2 puff INHALATION RT-Q6H PRN #1 each 10/04/22 [Rx] QUEtiapine [SEROquel] 400 mg PO HS 30 Days #30 tab 10/04/22 [Rx] Ipratropium-Albuterol Nebulize [Duoneb 0.5 mg-3 mg/3 ml Soln] 3 ml INHALATION RT-QID #100 each 02/01/23 [Rx] levETIRAcetam [Keppra] 1,000 mg PO BID 03/20/23 [History] Metoprolol Succinate (ER) [Toprol XL] 50 mg PO DAILY 06/21/23 [History] Rivaroxaban [Xarelto] 20 mg PO DAILY 06/21/23 [History] Buprenorphine/Naloxone 8Mg/2Mg [Suboxone 8-2Mg Film] 1 film SL DAILY 03/05/24 [History] Ergocalciferol (Vitamin D2) [Drisdol (50,000 Iu)] 1,250 mcg PO Q14D 03/05/24 [History] Ferrous Sulfate [Iron (65 MG Elemental)] 325 mg PO BID 03/05/24 [History] Gabapentin [Neurontin] 300 mg PO BID 03/05/24 [History] Loperamide HCl [Imodium A-D] 2 - 4 mg PO QID PRN MDD 16 mg 03/05/24 [History] Omeprazole 20 mg PO DAILY 03/05/24 [History] Ipratropium-Albuterol Nebulize [Duoneb 0.5 mg-3 mg/3 ml Soln] 3 ml INHALATION RT-QID PRN each 03/09/24 [Rx] Ondansetron Odt [Zofran Odt] 4 mg PO Q8HR PRN #20 tab 03/09/24 [Rx] Pantoprazole [Protonix] 40 mg PO AC-BRKFST #30 tab 03/09/24 [Rx] predniSONE 0 mg PO DIRECTED #70 tab 03/09/24 [Rx] HYDROcodone/APAP 7.5-325MG [[place] 7.5-325] 1 tab PO Q6HR PRN 3 Days #12 tab 03/12/24 [Rx] Follow up Appointment(s)/Referral(s): Aby Younger MD [STAFF PHYSICIAN] - 2 Weeks (Please call office for your appointment.) [facility] [NON-STAFF] - 1 Week (Please get a referral from your PCP for pain management Must have referral to make appointment.) Daksha Steiner MD [Primary Care Provider] - 03/25/24 3:00 pm Jaun Cortez MD [STAFF PHYSICIAN] - 1 Week (Office closed. Please call office to schedule appt/.) Patient Instructions/Handouts: Ileus (DC) Activity/Diet/Wound Care/Special Instructions: heart healthy diet activity is restricted till you see your doctor please contact your primary care office of to get a ( referral ) to the pain clinic ( on your discharge instruction) and make appointment ALBERT within one week please Discharge Disposition: HOME WITH HOME HEALTH SERVICES
[2024-03-20] MEDS ORDERED: ERGOCALCIFEROL 1,250 MCG (50,000 IU) CAPSULE PO SCH (09:00)
== END 2024-03-12 11:26 | disposition home health service (06) | DRG 385 ==
LOC: EC 13:03 → 4SSUR 16:17
PROVIDERS: ADMIT Internal Medicine; ATTEND Internal Medicine
DX: K50.112 Crohn's disease of large intestine with intestinal obstruction (principal); J96.21 Acute and chronic respiratory failure with hypoxia; E44.0 Moderate protein-calorie malnutrition; Z68.1 Body mass index [BMI] 19.9 or less, adult; J44.1 Chronic obstructive pulmonary disease with (acute) exacerbation; K56.0 Paralytic ileus; K50.912 Crohn's disease, unspecified, with intestinal obstruction; E78.5 Hyperlipidemia, unspecified; F17.200 Nicotine dependence, unspecified, uncomplicated; F31.9 Bipolar disorder, unspecified; F41.9 Anxiety disorder, unspecified; G40.909 Epilepsy, unspecified, not intractable, without status epilepticus; I10 Essential (primary) hypertension; I25.10 Atherosclerotic heart disease of native coronary artery without angina pectoris; I48.91 Unspecified atrial fibrillation; Z71.3 Dietary counseling and surveillance; F19.21 Other psychoactive substance dependence, in remission; Z79.01 Long term (current) use of anticoagulants; Z88.1 Allergy status to other antibiotic agents; Z87.01 Personal history of pneumonia (recurrent); Z86.73 Personal history of transient ischemic attack (TIA), and cerebral infarction without residual deficits; Z91.148 Patient's other noncompliance with medication regimen for other reason; Z79.899 Other long term (current) drug therapy
CPT/HCPCS: 36415; 71045; 74177; 80048; 80053; 81001; 83605; 83690; 84145; 85025; 85652; 86140; 87045; 87046; 87324; 94640; 94760; 96361; 96374; 96375; 99285

== ENCOUNTER 2024-03-13 17:38 | Inpatient (IN) | payer MEDICARE, OTHER ==
[2024-03-13 18:10] LABS: Anisocytosis Slight; Basophils % (A) 0 %; Eosinophils # (A) 0.3 k/uL (0-0.7); Eosinophils % (A) 2 %; HCT 33.7 % (34.0-46.0); HGB 10.5 gm/dL (11.4-16.0); Lymphocytes # (A) 3.5 k/uL (1.0-4.8); Lymphocytes % (A) 22 %; MCH 24.1 pg (25.0-35.0); MCHC 31.1 g/dL (31.0-37.0); MCV 77.5 fL (80.0-100.0); Mean Platelet Volume 6.3; Microcytosis Slight; Monocytes % (A) 7 %; Neutrophils # (A) 10.8 k/uL (1.3-7.7); Neutrophils % (A) 68 %; Platelet Count 470 k/uL (150-450); RBC 4.36 m/uL (3.80-5.40); RDW 16.5 % (11.5-15.5); WBC 15.8 k/uL (3.8-10.6)
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
[2024-03-13 18:20] LABS: ALT 20 U/L (4-34); AST 28 U/L (14-36); African American GFR (CKD) >90 (>60 ml/min/1.73 sqM); Alcohol <10 mg/dL; Alkaline Phosphatase 72 U/L (38-126); Anion Gap 4 mmol/L; Blood Urea Nitrogen 15 mg/dL (7-17); Calcium 7.8 mg/dL (8.4-10.2); Carbon Dioxide 29 mmol/L (22-30); Chloride 94 mmol/L (98-107); Glucose 78 mg/dL (74-99); Magnesium 1.5 mg/dL (1.6-2.3); Non-African American GFR(CKD) >90 (>60 ml/min/1.73 sqM); Phosphorus 3.6 mg/dL (2.5-4.5); Potassium 4.4 mmol/L (3.5-5.1); Sodium 127 mmol/L (137-145); Total Bilirubin 0.4 mg/dL (0.2-1.3); Total Protein 5.8 g/dL (6.3-8.2)
[2024-03-13 18:21] LABS: INR 0.9 (<1.2); Partial Thromboplastin Time 24.7 sec (22.0-30.0)
[2024-03-13 18:29] LABS: NT-Pro-B-Type Natriuretic Pept 864 pg/mL
[2024-03-13] MEDS: HYDROmorphone 1 MG/ML 1 ML SYRINGE IVP STA (19:11)
[2024-03-13] MEDS: SODIUM CHLORIDE 0.9% 1,000 ML IV STA (19:14)
[2024-03-13] MEDS: diphenhydrAMINE 50 MG/ML 1 ML VIAL IVP STA (19:16)
[2024-03-13] MEDS: methylPREDNISolone SOD SUCCI 125 MG/2 ML VIAL IV STA (19:16)
[2024-03-13] MEDS: cefTRIAXone IN SWFI 1,000 MG/10 ML SYRINGE IVP STA (19:16)
--- NOTE | 2024-03-13 19:21 | XR ---
EXAMINATION TYPE: XR chest 1V portable DATE OF EXAM: 03/13/2024 6:55 PM CLINICAL INDICATION:Female, 63 years old with history of copd; COMPARISON: Chest radiographs from 03/06/2024 TECHNIQUE: XR chest 1V portable Frontal view of the chest. FINDINGS: Lungs/Pleura: There is flattening of the diaphragm with increased lucency of the lungs. No evidence o f pneumothorax, pleural effusion or focal consolidation. Pulmonary vascularity: Unremarkable. Heart/mediastinum: Cardiomediastinal silhouette is unremarkable. Musculoskeletal: No acute osseous pathology. IMPRESSION: 1. No acute cardiopulmonary disease process. 2. COPD changes.
[2024-03-13 19:39] LABS: Appearance,Urine Clear (Clear); Bilirubin,Urine Negative (Negative); Blood,Urine Negative (Negative); Color,Urine Colorless; Glucose,Urine (UA) Negative (Negative); Ketones,Urine Negative (Negative); Leukocyte Esterase,Urine Trace (Negative); Mucus,Urine Rare /hpf; Nitrite,Urine Negative (Negative); Protein,Urine Negative (Negative); RBC,Urine 2 /hpf (0-5); Specific Gravity,Urine 1.005 (1.001-1.035); Squamous Epithelial Cell,Urine <1 /hpf (0-4); Urobilinogen,Urine <2.0 mg/dL (<2.0); WBC,Urine 2 /hpf (0-5)
[2024-03-13] MEDS ORDERED: NALOXONE 0.4 MG/ML 1 ML VIAL IV PRN (21:51)
[2024-03-13] MEDS ORDERED: ONDANSETRON ODT 4 MG TAB PO PRN (23:00)
[2024-03-13] MEDS ORDERED: LOPERAMIDE 2 MG CAP PO PRN (23:00)
[2024-03-13] MEDS: SODIUM CHLORIDE 0.9% 1,000 ML IV SCH (23:01)
[2024-03-13] MEDS: HYDROmorphone 1 MG/ML 1 ML SYRINGE IVP PRN (23:02)
[2024-03-14] MEDS: QUEtiapine 400 MG TAB PO SCH (00:14)
[2024-03-14] MEDS: PANTOPRAZOLE 40 MG TABLET PO SCH (06:07)
[2024-03-14] MEDS: FORMOTEROL FUMARATE 20 MCG/2 ML NEBU INHALATION SCH (07:51)
[2024-03-14] MEDS: IPRATROPIUM-ALBUTEROL 3 ML NEB INHALATION PRN (07:51)
[2024-03-14] MEDS: IPRATROPIUM 0.5 MG/2.5 ML NEBU INHALATION SCH (07:52)
[2024-03-14] MEDS ORDERED: NON FORMULARY DRUG (Omeprazole [Omeprazole] 20 MG Capsule.Dr) PO SCH (09:00)
[2024-03-14] MEDS: FLUTICASONE 50MCG/SPRAY NASAL 16GM EA NOSTRIL SCH (09:31)
[2024-03-14] MEDS: METOPROLOL SUCCINATE (ER) 50 MG TAB.ER.24H PO SCH (09:32)
[2024-03-14] MEDS: ERGOCALCIFEROL 1,250 MCG (50,000 IU) CAPSULE PO SCH (09:32)
[2024-03-14] MEDS: FERROUS SULFATE 325 MG TAB PO SCH (09:32)
[2024-03-14] MEDS: NON FORMULARY DRUG (Buprenorphine/Naloxone 8mg/2mg 1 EACH Film) SUBLINGUAL SCH (09:32)
[2024-03-14] MEDS: GABAPENTIN 300 MG CAP PO SCH (09:32)
[2024-03-14] MEDS: levETIRAcetam 500 MG TAB PO SCH (09:32)
[2024-03-14 10:02] LABS: Basophils # (A) 0.01 X 10*3/uL (0.00-0.10); Basophils % (A) 0.1 %; Eosinophils # (A) 0.26 X 10*3/uL (0.04-0.35); Eosinophils % (A) 2.4 %; HCT 27.6 % (37.2-46.3); HGB 8.6 g/dL (12.0-15.0); Lymphocytes # (A) 3.02 X 10*3/uL (0.90-5.00); Lymphocytes % (A) 28.2 %; MCH 24.2 pg (27.0-32.0); MCHC 31.2 g/dL (32.0-37.0); MCV 77.7 FL (80.0-97.0); Mean Platelet Volume 8.9 FL (9.5-12.2); Monocytes # (A) 1.06 X 10*3/uL (0.20-1.00); Monocytes % (A) 9.9 %; NRBC Per 100 WBC 0 X 10*3/uL (0.00-0.01); Neutrophils # (A) 6.31 X 10*3/uL (1.80-7.70); Neutrophils % (A) 58.8 %; Platelet Count 355 X 10*3/uL (140-440); RBC 3.55 X 10*6/uL (4.10-5.20); RDW 16.6 % (11.5-14.5); WBC 10.72 X 10*3/uL (4.50-10.00)
[2024-03-14 10:19] LABS: BUN/Creat Ratio 23.25 Ratio (12.00-20.00); Blood Urea Nitrogen 9.3 mg/dL (9.0-27.0); Calcium 7.6 mg/dL (8.7-10.3); Carbon Dioxide 29.9 mmol/L (21.6-31.8); Chloride 98 mmol/L (96-109); Glucose 81 mg/dL (70-110); Potassium 4.2 mmol/L (3.5-5.5); Sodium 137 mmol/L (135-145)
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
[2024-03-14] MEDS ORDERED: ZINC OXIDE PASTE (Z-GUARD) 1 APPLIC TOPICAL PRN (16:02)
[2024-03-14 16:24] VITALS: BMI 14.3
[2024-03-14] MEDS: RIVAROXABAN 20 MG TAB PO SCH (17:41)
[2024-03-14] MEDS: ONDANSETRON 4 MG/2 ML VIAL IVP PRN (19:55)
[2024-03-15 09:37] LABS: Basophils # (A) 0.01 X 10*3/uL (0.00-0.10); Basophils % (A) 0.1 %; Eosinophils # (A) 0.27 X 10*3/uL (0.04-0.35); Eosinophils % (A) 3.1 %; HCT 25.6 % (37.2-46.3); HGB 7.7 g/dL (12.0-15.0); Lymphocytes # (A) 2.23 X 10*3/uL (0.90-5.00); Lymphocytes % (A) 25.7 %; MCH 24.1 pg (27.0-32.0); MCHC 30.1 g/dL (32.0-37.0); Mean Platelet Volume 8.7 FL (9.5-12.2); Monocytes # (A) 0.78 X 10*3/uL (0.20-1.00); NRBC Per 100 WBC 0 X 10*3/uL (0.00-0.01); Neutrophils # (A) 5.33 X 10*3/uL (1.80-7.70); Neutrophils % (A) 61.5 %; Platelet Count 316 X 10*3/uL (140-440); RDW 16.4 % (11.5-14.5); WBC 8.67 X 10*3/uL (4.50-10.00)
[2024-03-15 10:00] LABS: BUN/Creat Ratio 23.25 Ratio (12.00-20.00); Blood Urea Nitrogen 9.3 mg/dL (9.0-27.0); Calcium 7.5 mg/dL (8.7-10.3); Carbon Dioxide 29.9 mmol/L (21.6-31.8); Chloride 100 mmol/L (96-109); Glucose 102 mg/dL (70-110); Potassium 4.3 mmol/L (3.5-5.5); Sodium 137 mmol/L (135-145)
[2024-03-15] MEDS: HYDROcodone/APAP 7.5-325MG 1 EACH TAB PO PRN (11:21)
--- NOTE | 2024-03-15 14:14 | P.PN ---
Subjective Progress Note Date: 03/14/24 63-year-old female, history of hypertension, hyperlipidemia, seizure disorder, CAD, COPD, CVA/TIA with residual right-sided weakness, gastroesophageal reflux disease, to ER for evaluation today. [facility] for evaluation of severe debility patient is complaining of severe pain throughout his body and inability to ambulate with severe weakness Blood work completed in ED reveals a WBC of 15.8, hemoglobin of 10.5 and platelet count of 470, lactic acid level within normal limit at 1.3, sodium 127, potassium 4.4, BUNs/creatinine of 15/0.39, blood glucose of 78, TSH of 2.750, troponin of less than 0.012 UA is essentially unremarkable Chest x-ray completed in ED is negative for any acute pulmonary process EKG is sinus 83 MA 151 QRS 75 QTc 415, with no acute ST or T wave changes Objective - Vital Signs Vital signs: Vital Signs Temp 97.8 F 03/14/24 07:00 Pulse 82 03/14/24 08:13 Resp 17 03/14/24 07:00 BP 126/77 03/14/24 07:00 Pulse Ox 98 03/14/24 07:55 FiO2 Intake & Output 03/13/24 03/14/24 03/14/24 18:59 06:59 18:59 Output Total 800 Balance -800 Weight 42.638 kg 42.638 kg Output: Urine 800 Other: Voiding Method Incontinent External Catheter - Exam General appearance: alert, in no apparent distress Head exam: Present: atraumatic, normocephalic, normal inspection Eye exam: Present: normal appearance, PERRL, EOMI. Absent: scleral icterus, conjunctival injection, periorbital swelling Neck exam: Present: normal inspection. Absent: tenderness, meningismus, lymphadenopathy Respiratory exam: Present: normal lung sounds bilaterally. Absent: respiratory distress, wheezes, rales, rhonchi, stridor Cardiovascular Exam: Present: regular rate, normal rhythm, normal heart sounds. Absent: systolic murmur, diastolic murmur, rubs, gallop, clicks GI/Abdominal exam: Present: soft, normal bowel sounds. Absent: distended, tenderness, guarding, rebound, rigid Extremities exam: Present: normal inspection, full ROM, normal capillary refill. Absent: tenderness, pedal edema, joint swelling, calf tenderness Neurological exam: Present: alert, oriented X3, CN II-XII intact Psychiatric exam: Present: normal affect, normal mood Skin exam: Present: warm, dry, intact, normal color. Absent: rash - Labs CBC & Chem 7: 03/15/24 06:01 03/15/24 06:01 Labs: Abnormal Lab Results - Last 24 Hours (Table) 03/13/24 03/13/24 03/13/24 Range/Units 17:55 17:55 19:15 WBC 15.8 H (3.8-10.6) k/uL RBC (4.10-5.20) X 10*6/uL Hgb 10.5 L (11.4-16.0) gm/dL Hct 33.7 L (34.0-46.0) % MCV 77.5 L (80.0-100.0) fL MCH 24.1 L (25.0-35.0) pg MCHC (32.0-37.0) g/dL RDW 16.5 H (11.5-15.5) % Plt Count 470 H (150-450) k/uL MPV (9.5-12.2) FL Immature Gran # (0.00-0.04) X 10*3/uL Neutrophils # 10.8 H (1.3-7.7) k/uL Monocytes # (0.20-1.00) X 10*3/uL Sodium 127 L (137-145) mmol/L Chloride 94 L (98-107) mmol/L Creatinine 0.39 L (0.52-1.04) mg/dL BUN/Creatinine Ratio (12.00-20.00) Ratio Calcium 7.8 L (8.4-10.2) mg/dL Magnesium 1.5 L (1.6-2.3) mg/dL Total Protein 5.8 L (6.3-8.2) g/dL Albumin 3.0 L (3.5-5.0) g/dL Ur Leukocyte Esterase Trace H (Negative) Urine Mucus Rare H (None) /hpf 03/14/24 03/14/24 Range/Units 04:23 04:23 WBC 10.72 H (3.8-10.6) k/uL RBC 3.55 L (4.10-5.20) X 10*6/uL Hgb 8.6 L (11.4-16.0) gm/dL Hct 27.6 L (34.0-46.0) % MCV 77.7 L (80.0-100.0) fL MCH 24.2 L (25.0-35.0) pg MCHC 31.2 L (32.0-37.0) g/dL RDW 16.6 H (11.5-15.5) % Plt Count (150-450) k/uL MPV 8.9 L (9.5-12.2) FL Immature Gran # 0.06 H (0.00-0.04) X 10*3/uL Neutrophils # (1.3-7.7) k/uL Monocytes # 1.06 H (0.20-1.00) X 10*3/uL Sodium (137-145) mmol/L Chloride (98-107) mmol/L Creatinine 0.4 L (0.52-1.04) mg/dL BUN/Creatinine Ratio 23.25 H (12.00-20.00) Ratio Calcium 7.6 L (8.4-10.2) mg/dL Magnesium (1.6-2.3) mg/dL Total Protein (6.3-8.2) g/dL Albumin (3.5-5.0) g/dL Ur Leukocyte Esterase (Negative) Urine Mucus (None) /hpf Assessment and Plan Assessment: 1. Hyponatremia; she has been placed on IV fluids in form of normal saline; continue to monitor sodium levels closely 2. Leukocytosis; likely related to steroid use; will monitor CBC closely 3. Chronic anemia; hemoglobin was 8.0 during last admission in 07/01/2023; h emoglobin at baseline -- We will monitor iron studies and supplement as needed 4. Generalized debility/weakness; PT/OT is consulted; possible placement 5. Seizure disorder; Keppra 1000 mg twice daily 6. Hypertension; Toprol-XL 50 mg daily 7. Atrial fibrillation; remains rate controlled on Toprol; continue home dose of Xarelto 8. Chronic pain; patient is currently on Suboxone 8-2 mg daily DVT prophylaxis; SCDs/Xarelto CODE STATUS; full code
--- NOTE | 2024-03-15 14:22 | P.PN ---
Subjective Progress Note Date: 03/15/24 63-year-old female, history of hypertension, hyperlipidemia, seizure disorder, CAD, COPD, CVA/TIA with residual right-sided weakness, gastroesophageal reflux disease, to ER for evaluation today. Patient [facility] the [facility] for evaluation of severe debility patient is complaining of severe pain throughout his body and inability to ambulate with severe weakness Blood work completed in ED reveals a WBC of 15.8, hemoglobin of 10.5 and platelet count of 470, lactic acid level within normal limit at 1.3, sodium 127, potassium 4.4, BUNs/creatinine of 15/0.39, blood glucose of 78, TSH of 2.750, troponin of less than 0.012 UA is essentially unremarkable Chest x-ray completed in ED is negative for any acute pulmonary process EKG is sinus 83 CT 151 QRS 75 QTc 415, with no acute ST or T wave changes 03/15/2024 Patient is seen and evaluated and discussed with nursing staff; has been taking IV pain medications; patient reports she has been following with her PCP for pain management and has been given a referral for pain clinic Vital signs are reviewed and stable with temperature of 99, pulse 76, respirations 16 and blood pressure 104/57 Blood work reveals a WBC of 8.67, hemoglobin of 7.7 and platelet count of 316, sodium 137, potassium 4.3, BUNs/creatinine of 9.3/0.4 and blood glucose of 102 --Hyponatremia and leukocytosis resolved; will plan to continue with current management; patient reports he is unable to care for self at home and has been requesting placement to subacute rehab -- PT/OT on board; await evaluation Objective - Vital Signs Vital signs: Vital Signs Temp 99.0 F 03/15/24 07:00 Pulse 76 03/15/24 09:11 Resp 16 03/15/24 07:00 BP 104/57 03/15/24 07:00 Pulse Ox 100 03/15/24 08:52 FiO2 Intake & Output 03/14/24 03/15/24 03/15/24 18:59 06:59 18:59 Intake Total 711 Output Total 500 375 Balance -500 -375 711 Weight 42.638 kg Intake: Oral 711 Output: Urine 500 375 Other: Voiding Method Incontinent Incontinent External Catheter External Catheter # Voids 1 1 # Bowel Movements 1 1 - Exam General appearance: alert, in no apparent distress Head exam: Present: atraumatic, normocephalic, normal inspection Eye exam: Present: normal appearance, PERRL, EOMI. Absent: scleral icterus, conjunctival injection, periorbital swelling Neck exam: Present: normal inspection. Absent: tenderness, meningismus, lymphadenopathy Respiratory exam: Present: normal lung sounds bilaterally. Absent: respiratory distress, wheezes, rales, rhonchi, stridor Cardiovascular Exam: Present: regular rate, normal rhythm, normal heart sounds. Absent: systolic murmur, diastolic murmur, rubs, gallop, clicks GI/Abdominal exam: Present: soft, normal bowel sounds. Absent: distended, tenderness, guarding, rebound, rigid Extremities exam: Present: normal inspection, full ROM, normal capillary refill. Absent: tenderness, pedal edema, joint swelling, calf tenderness Neurological exam: Present: alert, oriented X3, CN II-XII intact Psychiatric exam: Present: normal affect, normal mood Skin exam: Present: warm, dry, intact, normal color. Absent: rash - Labs CBC & Chem 7: 03/15/24 06:01 03/15/24 06:01 Labs: Abnormal Lab Results - Last 24 Hours (Table) 03/15/24 03/15/24 Range/Units 06:01 06:01 RBC 3.20 L (4.10-5.20) X 10*6/uL Hgb 7.7 L (12.0-15.0) g/dL Hct 25.6 L (37.2-46.3) % MCH 24.1 L (27.0-32.0) pg MCHC 30.1 L (32.0-37.0) g/dL RDW 16.4 H (11.5-14.5) % MPV 8.7 L (9.5-12.2) FL Immature Gran # 0.05 H (0.00-0.04) X 10*3/uL Creatinine 0.4 L (0.6-1.5) mg/dL BUN/Creatinine Ratio 23.25 H (12.00-20.00) Ratio Calcium 7.5 L (8.7-10.3) mg/dL Microbiology - Last 24 Hours (Table) 03/13/24 18:40 Blood Culture - Preliminary Blood 03/13/24 19:00 Blood Culture - Preliminary Blood Assessment and Plan Assessment: 1. Hyponatremia; she has been placed on IV fluids in form of normal saline; continue to monitor sodium levels closely 2. Leukocytosis; likely related to steroid use; will monitor CBC closely 3. Chronic anemia; hemoglobin was 8.0 during last admission in 07/01/2023; hemoglobin at baseline -- We will monitor iron studies and supplement as needed 4. Generalized debility/weakness; PT/OT is consulted; possible placement 5. Seizure disorder; Keppra 1000 mg twice daily 6. Hypertension; Toprol-XL 50 mg daily 7. Atrial fibrillation; remains rate controlled on Toprol; continue home dose of Xarelto 8. Chronic pain; patient is currently on Suboxone 8-2 mg daily DVT prophylaxis; SCDs/Xarelto CODE STATUS; full code
[2024-03-15] MEDS: HYDROmorphone 1 MG/ML 1 ML SYRINGE IVP PRN (17:49)
[2024-03-16 07:44] VITALS: RESP 16
[2024-03-16 10:17] LABS: Basophils # (A) 0.01 X 10*3/uL (0.00-0.10); Basophils % (A) 0.1 %; Eosinophils # (A) 0.21 X 10*3/uL (0.04-0.35); Eosinophils % (A) 2.5 %; HCT 23.7 % (37.2-46.3); HGB 7.1 g/dL (12.0-15.0); Lymphocytes # (A) 1.84 X 10*3/uL (0.90-5.00); Lymphocytes % (A) 21.8 %; MCH 24.1 pg (27.0-32.0); MCV 80.6 FL (80.0-97.0); Monocytes % (A) 9.5 %; NRBC Per 100 WBC 0 X 10*3/uL (0.00-0.01); Neutrophils # (A) 5.55 X 10*3/uL (1.80-7.70); Neutrophils % (A) 65.7 %; Platelet Count 314 X 10*3/uL (140-440); RBC 2.94 X 10*6/uL (4.10-5.20); RDW 16.3 % (11.5-14.5); WBC 8.44 X 10*3/uL (4.50-10.00)
[2024-03-16 10:32] LABS: BUN/Creat Ratio 32.67 Ratio (12.00-20.00); Blood Urea Nitrogen 9.8 mg/dL (9.0-27.0); Calcium 7.3 mg/dL (8.7-10.3); Carbon Dioxide 30.8 mmol/L (21.6-31.8); Chloride 100 mmol/L (96-109); Glucose 106 mg/dL (70-110); Potassium 4.3 mmol/L (3.5-5.5); Sodium 135 mmol/L (135-145)
--- NOTE | 2024-03-16 15:01 | P.DS ---
Providers Date of admission: 03/16/24 10:15 Expected date of discharge: 03/16/24 Attending physician: Buddy Walker Primary care physician: Daksha Steiner Hospital Course: Final diagnosis -Hyponatremia secondary to poor oral intake -Leukocytosis; likely reactive related to steroid use -Chronic anemia -Generalized debility/weakness -History of Seizure disorder -Hypertension -Atrial fibrillation, currently rate controlled maintained on Xarelto -Chronic pain; patient is currently on Suboxone 8-2 mg daily and needs to follow with pain management outpatient -GI prophylaxis -DVT prophylaxis -full code Discharge disposition Patient is being discharged in a stable condition with guarded prognosis to [facility] Patient will follow-up with Dr. Obi Walker in the outpatient setting upon discharge. Patient is to continue with current medications along with outpatient follow-up with pulmonary along with GI as scheduled. Total time taken is greater than 35 minutes. Hospital course This is a 63-year-old female who was recently admitted with generalized weakness and inability to walk with medical debility being closely monitored. Patient recently was hospitalized for COPD exacerbation as well as acute on chronic Croh n's as patient has history of Crohn's colitis and is supposed to be following with GI in the outpatient setting. Patient is noncompliant with follow-up and medications and also noted to be on Suboxone in the outpatient setting. Patient needs follow-up with pain management outpatient as we do not prescribe this medication. Patient evaluated by PT/OT therapy recommending rehab and patient is agreeable. Case management following and patient will be going to [facility]. Patient reporting continued Crohn's and frequent loose stools all of which is chronic. Hemoglobin 7.1 today with no active bleeding noted in a patient with known chronic anemia. Patient with continued poor oral intake and this is chronic for her as well. Patient is maintained on Xarelto and will continue on discharge. Currently no reports of chest pain, no worsening shortness of breath, or palpitations. Patient is afebrile. No reports of nausea or vomiting and patient is tolerating diet. Needs encouragement with meals. Needs GI follow-up outpatient for her chronic Crohn's. Patient will be going to [facility] today. Guarded prognosis and high risk for readmissions given patient's comorbidities and continued noncompliance with outpatient follow-up. Physical exam: Gen: This is a 63-year-old female who is awake, alert and oriented x 3, thin built, elderly appearing, cachectic, weak, ill-appearing HEENT: Head is atraumatic, normocephalic. Pupils equal, round. Sclerae is anicteric. NECK: Supple. No JVD. No lymphadenopathy. No thyromegaly. LUNGS: Diminished breath sounds bilaterally with some coarse scattered rhonchi. Faint expiratory wheezing noted. No intercostal retractions. HEART: S1, S2 are muffled ABDOMEN: Soft. Thin. Bowel sounds are present. No masses. No tenderness. EXTREMITIES: No pedal edema. No calf tenderness. NEUROLOGICAL: Patient is awake, alert and oriented x3. Cranial nerves 2 through 12 are grossly intact. Diffusely weak Please refer to medication reconciliation sheet for a list of medications. The impression and plan of care has been dictated by Angelita Diaz, Nurse Practitioner as directed. Dr. Sally MD I have performed a history and examination and MDM of this patient, discussed the same with the dictator, and agree with the dictator's assessment and plan as written ,documented as a scribe. Based on total visit time, I have performed more than 50% of the visit. Patient Condition at Discharge: Fair Plan - Discharge Summary New Discharge Prescriptions: Continue Glycopyrrolate/Formoterol Fum [Bevespi Aerosphere Inhaler] 2 puff INHALATION RT-BID Fluticasone Nasal [place] [Flonase Nasal [place]] 1 spr EA NOSTRIL DAILY QUEtiapine [SEROquel] 400 mg PO HS 30 Days #30 tab levETIRAcetam [Keppra] 1,000 mg PO BID Metoprolol Succinate (ER) [Toprol XL] 50 mg PO DAILY Rivaroxaban [Xarelto] 20 mg PO DAILY Buprenorphine/Naloxone 8Mg/2Mg [Suboxone 8-2Mg Film] 1 film SL DAILY Omeprazole 20 mg PO DAILY Ergocalciferol (Vitamin D2) [Drisdol (50,000 Iu)] 1,250 mcg PO Q14D Pantoprazole [Protonix] 40 mg PO AC-BRKFST #30 tab Gabapentin [Neurontin] 300 mg PO BID #6 cap Albuterol Sulfate [Albuterol Sulfate Hfa] 2 puff INHALATION RT-Q6H PRN #1 each PRN Reason: Shortness Of Breath Ipratropium-Albuterol Nebulize [Duoneb 0.5 mg-3 mg/3 ml Soln] 3 ml INHALATION RT-QID #100 each Ferrous Sulfate [Iron (65 MG Elemental)] 325 mg PO BID Loperamide HCl [Imodium A-D] 2 - 4 mg PO QID PRN MDD 16 mg PRN Reason: Diarrhea Ipratropium-Albuterol Nebulize [Duoneb 0.5 mg-3 mg/3 ml Soln] 3 ml INHALATION RT-QID PRN each PRN Reason: Shortness Of Breath Or Wheezing Ondansetron Odt [Zofran ODT] 4 mg PO Q8HR PRN #20 tab PRN Reason: Nausea HYDROcodone/APAP 7.5-325MG [[place] 7.5-325] 1 tab PO Q6HR PRN #4 tab PRN Reason: Pain Discontinued predniSONE See Taper PO DIRECTED Discharge Medication List Glycopyrrolate/Formoterol Fum [Bevespi Aerosphere Inhaler] 2 puff INHALATION RT- BID 11/24/19 [History] Fluticasone Nasal [place] [Flonase Nasal [place]] 1 spr EA NOSTRIL DAILY 03/27/20 [History] Albuterol Sulfate [Albuterol Sulfate Hfa] 2 puff INHALATION RT-Q6H PRN #1 each 10/04/22 [Rx] QUEtiapine [SEROquel] 400 mg PO HS 30 Days #30 tab 10/04/22 [Rx] Ipratropium-Albuterol Nebulize [Duoneb 0.5 mg-3 mg/3 ml Soln] 3 ml INHALATION RT-QID #100 each 02/01/23 [Rx] levETIRAcetam [Keppra] 1,000 mg PO BID 03/20/23 [History] Metoprolol Succinate (ER) [Toprol XL] 50 mg PO DAILY 06/21/23 [History] Rivaroxaban [Xarelto] 20 mg PO DAILY 06/21/23 [History] Buprenorphine/Naloxone 8Mg/2Mg [Suboxone 8-2Mg Film] 1 film SL DAILY 03/05/24 [History] Ergocalciferol (Vitamin D2) [Drisdol (50,000 Iu)] 1,250 mcg PO Q14D 03/05/24 [History] Ferrous Sulfate [Iron (65 MG Elemental)] 325 mg PO BID 03/05/24 [History] Loperamide HCl [Imodium A-D] 2 - 4 mg PO QID PRN MDD 16 mg 03/05/24 [History] Omeprazole 20 mg PO DAILY 03/05/24 [History] Ipratropium-Albuterol Nebulize [Duoneb 0.5 mg-3 mg/3 ml Soln] 3 ml INHALATION RT-QID PRN each 03/09/24 [Rx] Ondansetron Odt [Zofran ODT] 4 mg PO Q8HR PRN #20 tab 03/09/24 [Rx] Pantoprazole [Protonix] 40 mg PO AC-BRKFST #30 tab 03/09/24 [Rx] Gabapentin [Neurontin] 300 mg PO BID #6 cap 03/16/24 [Rx] HYDROcodone/APAP 7.5-325MG [[place] 7.5-325] 1 tab PO Q6HR PRN #4 tab 03/16/24 [Rx] Follow up Appointment(s)/Referral(s): Daksha Steiner MD [Primary Care Provider] - 1-2 days Jaun Cortez MD [STAFF PHYSICIAN] - 1 Week Activity/Diet/Wound Care/Special Instructions: Patient is going to [facility] Activity as tolerated Follow-up with pulmonary outpatient Follow-up primary care provider outpatient Follow-up with pain management outpatient Continue taking medications as prescribed Follow-up with GI outpatient Discharge Disposition: TRANSFER TO [facility]/F
[2024-03-16 15:08] VITALS: BP 127/70; PULSE 82; TEMP 98.1
== END 2024-03-16 16:49 | DRG 641 ==
LOC: EC 17:38 → 6NMEDSUR 21:52 → OBSVTOIN 03-16 10:15
PROVIDERS: ADMIT Hospitalist; ATTEND Hospitalist
DX: E87.1 Hypo-osmolality and hyponatremia (principal); I69.951 Hemiplegia and hemiparesis following unspecified cerebrovascular disease affecting right dominant side; K50.10 Crohn's disease of large intestine without complications; R62.7 Adult failure to thrive; G40.909 Epilepsy, unspecified, not intractable, without status epilepticus; I48.91 Unspecified atrial fibrillation; D64.9 Anemia, unspecified; F31.9 Bipolar disorder, unspecified; I10 Essential (primary) hypertension; J44.9 Chronic obstructive pulmonary disease, unspecified; D72.829 Elevated white blood cell count, unspecified; T38.0X5A Adverse effect of glucocorticoids and synthetic analogues, initial encounter; G89.29 Other chronic pain; I25.10 Atherosclerotic heart disease of native coronary artery without angina pectoris; F41.9 Anxiety disorder, unspecified; E78.5 Hyperlipidemia, unspecified; F17.200 Nicotine dependence, unspecified, uncomplicated; K21.9 Gastro-esophageal reflux disease without esophagitis; M19.90 Unspecified osteoarthritis, unspecified site; R32 Unspecified urinary incontinence; R26.2 Difficulty in walking, not elsewhere classified; R53.81 Other malaise; Z91.199 Patient's noncompliance with other medical treatment and regimen due to unspecified reason; Z79.01 Long term (current) use of anticoagulants; Z79.899 Other long term (current) drug therapy; Z91.419 Personal history of unspecified adult abuse; Z88.1 Allergy status to other antibiotic agents; Z88.8 Allergy status to other drugs, medicaments and biological substances
CPT/HCPCS: 36415; 71045; 80048; 80053; 80320; 81001; 83605; 83735; 83880; 84100; 84443; 84484; 85025; 85610; 85730; 87040; 93005; 94640; 94760; 96361; 96374; 96375; 96376; 99285

== ENCOUNTER 2024-03-21 08:51 | Inpatient (IN) | payer MEDICARE, OTHER ==
[2024-03-21] MEDS: ACETAMINOPHEN TAB 500 MG TAB PO STA (09:17)
[2024-03-21 09:30] LABS: Anisocytosis Slight; Basophils # (A) 0.1 k/uL (0-0.2); Basophils % (A) 1 %; Eosinophils # (A) 0.3 k/uL (0-0.7); Eosinophils % (A) 1 %; HCT 29.3 % (34.0-46.0); HGB 9.2 gm/dL (11.4-16.0); Lymphocytes # (A) 0.8 k/uL (1.0-4.8); Lymphocytes % (A) 4 %; MCH 24.7 pg (25.0-35.0); MCHC 31.4 g/dL (31.0-37.0); MCV 78.9 fL (80.0-100.0); Mean Platelet Volume 6.9; Microcytosis Slight; Monocytes # (A) 0.7 k/uL (0-1.0); Monocytes % (A) 3 %; Neutrophils # (A) 19.5 k/uL (1.3-7.7); Neutrophils % (A) 91 %; Platelet Count 369 k/uL (150-450); RBC 3.72 m/uL (3.80-5.40); RDW 17.2 % (11.5-15.5); WBC 21.4 k/uL (3.8-10.6)
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
[2024-03-21 09:45] LABS: ALT 13 U/L (4-34); African American GFR (CKD) >90 (>60 ml/min/1.73 sqM); Anion Gap 0 mmol/L; Blood Urea Nitrogen 15 mg/dL (7-17); Calcium 8.1 mg/dL (8.4-10.2); Carbon Dioxide 38 mmol/L (22-30); Chloride 92 mmol/L (98-107); Glucose 111 mg/dL (74-99); Non-African American GFR(CKD) >90 (>60 ml/min/1.73 sqM); Sodium 130 mmol/L (137-145); Total Bilirubin 0.8 mg/dL (0.2-1.3); Total Protein 5.9 g/dL (6.3-8.2)
[2024-03-21 09:46] LABS: AST 27 U/L (14-36); Alkaline Phosphatase 61 U/L (38-126); Potassium 4.5 mmol/L (3.5-5.1)
[2024-03-21 09:53] LABS: NT-Pro-B-Type Natriuretic Pept 785 pg/mL
[2024-03-21 09:57] LABS: Appearance,Urine Clear (Clear); Bilirubin,Urine Negative (Negative); Blood,Urine Negative (Negative); Color,Urine Colorless; Glucose,Urine (UA) Negative (Negative); Ketones,Urine Negative (Negative); Leukocyte Esterase,Urine Negative (Negative); Nitrite,Urine Negative (Negative); PH, Urine 5.5 (5.0-8.0); Protein,Urine Negative (Negative); Urobilinogen,Urine <2.0 mg/dL (<2.0)
[2024-03-21 09:58] LABS: INR 0.9 (<1.2); Partial Thromboplastin Time 28.9 sec (22.0-30.0); Prothrombin Time 10.2 sec (10.0-12.5)
--- NOTE | 2024-03-21 10:09 | XR ---
EXAMINATION TYPE: XR chest 2V DATE OF EXAM: 03/21/2024 9:59 AM CLINICAL INDICATION:Female, 63 years old with history of difficulty breathing; [facility] COMPARISON: 03/13/2024 TECHNIQUE: XR chest 2V. Frontal and lateral views of the chest.. FINDINGS: Lines/Tubes/Devices: EKG leads overlie the chest. No indwelling lines are seen. Heart/mediastinum: Heart size is normal. Mediastinal contours are obscured partially by the lung opa cities. Pulmonary vascularity: Not increased, Lungs/Pleura: Moderate to severe background COPD changes with hyperinflation and interstitial thicken ing/fibrosis again noted. There is superimposed reticulonodular infiltrate throughout the majority of the right lung compared to the prior exam. No pleural effusion or pneumothorax evident. Musculoskeletal: No clearly acute osseous abnormality demonstrated in the limits of the exam. Degene rative changes of the spine and shoulders. Moderate anterior wedge compression in the mid thoracic sp ine is favored to be chronic but technically age indeterminate, correlate clinically. Other findings: None. IMPRESSION: * Moderate to severe COPD changes. * Superimposed diffuse infiltrate on the right, likely reflecting infectious/inflammatory process. R ecommend clinical correlation and follow-up to resolution.
[2024-03-21] MEDS ORDERED: PNEUMONIA PROTOCOL UTILIZED 1 EACH MISC PO PRN (10:18)
[2024-03-21] MEDS: SODIUM CHLORIDE 0.9% 1,000 ML IV ONE (10:42)
[2024-03-21] MEDS: AZITHROMYCIN 500 MG in SODIUM CHLORIDE 0.9% 250 ML IVPB STA (12:20)
[2024-03-21] MEDS: IPRATROPIUM-ALBUTEROL 3 ML NEB INHALATION PRN (12:32)
[2024-03-21] MEDS ORDERED: HYDROcodone/APAP 7.5-325MG 1 EACH TAB PO PRN (12:40)
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
[2024-03-21] MEDS: FERROUS SULFATE 325 MG TAB PO SCH (14:18)
[2024-03-21] MEDS: FLUTICASONE NASAL 50MCG/SPRAY 16GM BTL EA NOSTRIL SCH (14:18)
[2024-03-21] MEDS: RIVAROXABAN 20 MG TAB PO SCH (14:19)
[2024-03-21] MEDS: PATIENT'S OWN (Buprenorphine/Naloxone 8mg/2mg 1 EACH Film) SUBLINGUAL SCH (14:20)
[2024-03-21] MEDS: SODIUM CHLORIDE 0.9% 1,000 ML IV SCH (16:01)
[2024-03-21] MEDS: IPRATROPIUM 0.5 MG/2.5 ML NEBU INHALATION SCH (16:38)
[2024-03-21] MEDS: levETIRAcetam 500 MG TAB PO SCH (18:05)
[2024-03-21] MEDS: GABAPENTIN 300 MG CAP PO SCH (18:05)
[2024-03-21] MEDS: ONDANSETRON 4 MG TAB PO PRN (18:05)
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
[2024-03-21] MEDS: FORMOTEROL FUMARATE 20 MCG/2 ML NEBU INHALATION SCH (20:17)
[2024-03-21] MEDS: QUEtiapine 400 MG TAB PO SCH (22:39)
[2024-03-22] MEDS ORDERED: NON FORMULARY DRUG (Umeclidinium Brm/Vilanterol Tr [Anoro Ellipta 62.5-25 Mcg Inh] 1 EACH INHALATION SCH (08:00)
--- NOTE | 2024-03-22 08:11 | XR ---
EXAMINATION TYPE: XR chest 1V DATE OF EXAM: 03/22/2024 6:56 AM CLINICAL INDICATION:Female, 63 years old with history of Follow-up pneumonia; [facility] COMPARISON: Chest radiographs from 03/21/2024, 03/13/2024.e TECHNIQUE: XR chest 1V Frontal view of the chest. FINDINGS: Lungs/Pleura: Multifocal airspace opacities within the right lung.. No evidence of pneumothorax or pl eural effusion. Pulmonary vascularity: Unremarkable. Heart/mediastinum: Cardiomediastinal silhouette is unremarkable. Musculoskeletal: No acute osseous pathology. IMPRESSION: Multifocal right airspace opacities concerning for pneumonia. Findings new from 03/13/2024.
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
[2024-03-22] MEDS ORDERED: PANTOPRAZOLE 40 MG TABLET PO SCH (09:00)
[2024-03-22] MEDS: METOPROLOL SUCCINATE (ER) 50 MG TAB.ER.24H PO SCH (09:04)
[2024-03-22] MEDS: PANTOPRAZOLE 40 MG TABLET PO SCH (09:04)
[2024-03-22] MEDS: AZITHROMYCIN 500 MG TAB PO SCH (09:04)
--- NOTE | 2024-03-22 10:06 | P.PN ---
Subjective Progress Note Date: 03/22/24 patient is a 63-year-old lady with past medical history significant for COPD, chronic respiratory failure on 2 L of oxygen who presented to the ER as a transfer from [facility] for shortness of breath. Patient was recently admitted to the hospital for COPD exacerbation. Patient stated that she was all right last night when he started experiencing sudden onset of shortness of breath, shortness of breath was present on rest. There was no complaint of chest pain. Patient was complaining of fevers at time. Patient also complaining of productive cough. There was no complaint nausea, vomiting abdominal pain. Patient was transferred to the ER for the symptoms Initial lab work done in the ER showed WBC 21.4, hemoglobin 0.2, platelet count 369, sodium 130, potassium 4.5, BUN 15, creatinine 0.38, bilirubin 0.8, troponin 0.012, UA negative for any infection Influenza A not detected Influenza B not detected RSV not detected COVID-19 not detected Chest x-ray done in the ER showed moderate to severe COPD changes. Superimposed diffuse infiltrate on the right Patient admitted to internal medicine service 03/22. Patient seen and examined. Patient stated that she is doing well compared to yesterday.Currently on 3 L of oxygen. Complaining of back pain REVIEW OF SYSTEMS: CONSTITUTIONAL: No fever, no malaise,. CARDIOVASCULAR: No chest pain, no palpitations, no syncope. PULMONARY: No shortness of breath, no cough, GASTROINTESTINAL: No diarrhea, no nausea, no vomiting, no abdominal pain. NEUROLOGICAL: No headaches, no weakness, PHYSICAL EXAMINATION: GENERAL: The patient is alert and oriented x3, not in any acute distress. Well developed, well nourished. HEENT: Pupils are round and equally reacting to light. EOMI. No scleral icterus. No conjunctival pallor. Normocephalic, atraumatic. No pharyngeal erythema. No thyromegaly. CARDIOVASCULAR: S1 and S2 present. No murmurs, rubs, or gallops. PULMONARY: Coarse breath sound bilaterally, no wheezing or crackles. ABDOMEN: Soft, nontender, nondistended, normoactive bowel sounds. No palpable organomegaly. MUSCULOSKELETAL: No joint swelling or deformity. EXTREMITIES: No cyanosis, clubbing, or pedal edema. NEUROLOGICAL: Gross neurological examination did not reveal any focal deficits. SKIN: No rashes. Assessment and plan Bacterial pneumonia Sepsis Acute on chronic hypoxic respiratory failure History of COPD Coronary artery disease Chronic atrial fibrillation Hypertension Monitor vital signs Monitor CBC Monitor CMP Continue telemetry monitoring Continue breathing treatments Follow-up on blood cultures Continue IV Rocephin azithromycin Continue IV fluid Continue Xarelto Toprol ID following Pulmonology following Labs and medication were reviewed.. Continue same treatment. Continue with symptomatic treatment. Resume home medication. Monitor labs and vitals. DVT and GI prophylaxis. Further recommendations as per clinical course of the patient Dictation was produced using [employer] dictation software. please excuse any grammatical, word or spelling errors. Objective - Vital Signs Vital signs: Vital Signs Temp 97.3 F L 03/22/24 08:35 Pulse 91 03/22/24 08:35 Resp 20 03/22/24 08:35 BP 97/60 03/22/24 08:35 Pulse Ox 95 03/22/24 08:35 FiO2 Intake & Output 03/21/24 03/22/24 03/22/24 18:59 06:59 18:59 Weight 71.214 kg Other: Voiding Method Diaper External Catheter - Labs CBC & Chem 7: 03/21/24 09:00 03/21/24 09:00 Labs: Abnormal Lab Results - Last 24 Hours (Table) 03/21/24 Range/Units 09:00 Sodium 130 L (137-145) mmol/L Chloride 92 L (98-107) mmol/L Carbon Dioxide 38 H (22-30) mmol/L Creatinine 0.38 L (0.52-1.04) mg/dL Glucose 111 H (74-99) mg/dL Calcium 8.1 L (8.4-10.2) mg/dL Total Protein 5.9 L (6.3-8.2) g/dL Albumin 3.0 L (3.5-5.0) g/dL
[2024-03-22] MEDS: HYDROcodone/APAP 7.5-325MG 1 EACH TAB PO PRN (10:53)
--- NOTE | 2024-03-22 13:11 | P.PN ---
Subjective Progress Note Date: 03/22/24 63-year-old female patient, being seen today for worsening shortness of breath. The patient is known to have COPD and she is oxygen dependent and she resides in [facility] of the year. She typically uses oxygen 2 L/min nasal cannula. She has progressive dyspnea and hypoxemia and the patient was placed on a nonrebreather and the patient following that was brought in today hospital for further evaluation. Currently she is on 3 L of oxygen by nasal cannula with a pulse ox of 92%. Chest x-ray from the time of admission was reviewed and it shows COPD with diffuse emphysematous changes bilaterally. The patient also has diffuse infiltrate of the right lung reflecting an underlying infectious proces s. The patient was diagnosed having a right lung pneumonia. Started on Rocephin and Zithromax. Started on DuoNeb Treatments [id number]. Started on a combination of Perforomist and Pulmicort nebulized treatment twice a day. Started on IV fluids normal saline at rate of 130 cc an hour. Pulmonary consultation was also requested. On her blood work, the WBC count of 21 with a hemoglobin 10.2 and a platelet count of 369. BUN is 15 with a creatinine of 0.38 and a sodium levels at 130. Troponins are negative. proBNP level is at 785. UA is negative. The viral screen is negative. Otherwise, no other significant complaints. Her blood pressure is currently stable. No significant hypotension. Breathing is nonlabored. On today's evaluation of 03/22/2024, the patient is being seen for a follow-up. The patient was hospitalized from extensive right lung pneumonia. She is a [facility] resident. A repeat chest x-ray was done today and the patient has multifocal right-sided airspace disease concerning for pneumonia and in comparison to the earlier chest x-ray, the findings are essentially stable and unchanged. The patient has a congested cough. She is producing sputum should be able to collect sputum for Gram stain and culture. The white cell count of 21 with a hemoglobin 0.2, and repeat blood work is pending for now. The patient remains on a combination of Rocephin and Zithromax. The patient on DuoNeb updrafts. Rest of the home medications have been resumed. No altered mentation. She is communicating. No pleurisy. No hemoptysis. Objective - Vital Signs Vital signs: Vital Signs Temp 97.3 F L 03/22/24 08:35 Pulse 91 03/22/24 08:35 Resp 20 03/22/24 08:35 BP 97/60 03/22/24 08:35 Pulse Ox 95 03/22/24 08:35 FiO2 Intake & Output 03/21/24 03/22/24 03/22/24 18:59 06:59 18:59 Weight 71.214 kg Other: Voiding Method Diaper External Catheter - Exam GENERAL: The patient is alert and oriented x3, not in any acute distress. Ill looking, cachectic, currently on 3 L of oxygen by nasal cannula HEENT: Pupils are round and equally reacting to light. EOMI. No scleral icterus. No conjunctival pallor. Normocephalic, atraumatic. No pharyngeal erythema. No thyromegaly. CARDIOVASCULAR: Coarse breath sound bilaterally, diminished at the bases, no crackles audible PULMONARY: Chest is clear to auscultation, no wheezing or crackles. ABDOMEN: Soft, nontender, nondistended, normoactive bowel sounds. No palpable organomegaly. MUSCULOSKELETAL: No joint swelling or deformity. EXTREMITIES: No cyanosis, clubbing, or pedal edema. NEUROLOGICAL: Gross neurological examination did not reveal any focal deficits. SKIN: No rashes. - Labs CBC & Chem 7: 03/21/24 09:00 03/21/24 09:00 Assessment and Plan Plan: Acute on top of chronic hypoxic respiratory failure the patient is currently on 3 liters by nasal cannula right lung pneumonia with secondary shortness of breath, consider [facility] [facility] acquired pneumonia Acute leukocytosis secondary to above Shortness of breath, acute on chronic secondary to above Coronary artery disease Chronic atrial fibrillation, currently in sinus Previous history of CVA back in 2019 Hypertension Hyperlipidemia Seizure disorder History of chronic disease currently inactive and stable Plan Will continue same treatment. Chest x-ray still showing extensive consolidation of the right lung consistent with pneumonia. Titrate oxygen flow to maintain saturation above 90% Continue DuoNeb nebulized treatments [id number] Continue Perforomist and Pulmicort nebulized treatments [id number] Check procalcitonin level And the level is at 0.3 Continue IV fluids Continue Rocephin and Zithromax with the intention of stepping up and broadening antibiotic coverage if no clinical response Monitor white cell count Will continue to follow and will make further recommendations based on her progress.
--- NOTE | 2024-03-22 14:36 | P.PN ---
Subjective Progress Note Date: 03/22/24 Principal diagnosis: Reason for follow-up is pneumonia Patient is a 63-year-old female with a past medical history significant for atrial fibrillation coronary artery disease hypertension hyperlipidemia osteomyelitis COPD on 2 L home O2, presenting to the hospital from the local longterm for evaluation of increasing shortness of breath, patient did have a fever hypoxemia and evidence of right-sided infiltrate concerning for pneumonia. On today's evaluation that is 03/22/2024,the patient did have resolution of her fever and is afebrile today, patient is on 3 to nasal cannula supplemental oxygen and denies any worsening shortness of breath no chest pain or any worsening cough.Patient denies having any nausea or vomiting, no abdominal pain and no diarrhea has been reported. No new labs has been obtained today cultures currently pending Objective - Vital Signs Vital signs: Vital Signs Temp 98.6 F 03/22/24 10:56 Pulse 98 03/22/24 11:27 Resp 18 03/22/24 11:27 BP 94/55 03/22/24 10:56 Pulse Ox 96 03/22/24 10:56 FiO2 Intake & Output 03/21/24 03/22/24 03/22/24 18:59 06:59 18:59 Intake Total 118 Balance 118 Weight 71.214 kg Intake: Oral 118 Other: Voiding Method Diaper Diaper External Catheter External Catheter - Exam GENERAL DESCRIPTION: An elderly female lying in bed in no distress RESPIRATORY SYSTEM: Unlabored breathing , decreased breath sounds at bases HEART: S1 S2 regular rate and rhythm , ABDOMEN: Soft , no tenderness EXTREMITIES: No edema feet - Labs CBC & Chem 7: 03/21/24 09:00 03/21/24 09:00 Labs: Abnormal Lab Results - Last 24 Hours (Table) 03/21/24 Range/Units 09:00 Procalcitonin 0.30 H (0.02-0.09) ng/mL Assessment and Plan (1) Sepsis Current Visit: Yes Status: Acute Code(s): A41.9 - SEPSIS, UNSPECIFIED ORGANISM SNOMED Code(s): 10130888 (2) Pneumonia Current Visit: Yes Status: Acute Code(s): J18.9 - PNEUMONIA, UNSPECIFIED ORGANISM SNOMED Code(s): 098163323 Plan: 1patient presented to hospital with sepsis in this patient who did have a fever tachycardia hypotension elevated white count source likely pneumonia in this patient with underlying COPD with a question of community-acquired versus gram- negative pneumonia. 2currently waiting for the sputum collection for culture, did have procalcitonin 0.30 3-patient to continue with Rocephin Zithromax in view of resolution of her fever while waiting for the culture to finalize Dictation was produced using [employer] dictation software. please excuse any grammatical, word or spelling errors. Time with Patient: Less than 30
[2024-03-22] MEDS ORDERED: ZINC OXIDE PASTE (Z-GUARD) 1 APPLIC TOPICAL PRN (21:38)
[2024-03-23] MEDS: ACETAMINOPHEN TAB 325 MG TAB PO PRN (03:50)
--- NOTE | 2024-03-23 07:43 | XR ---
EXAMINATION TYPE: XR chest 1V portable DATE OF EXAM: 03/23/2024 COMPARISON: 03/22/2024 INDICATION: Short of breath follow-up TECHNIQUE: Single frontal view of the chest is obtained. FINDINGS: The heart size is normal. The pulmonary vasculature is normal. Right lower lobe filtrate is present. There may be some shift of the mediastinum towards the right. C orrelate for atelectasis or pneumonia. Findings appear to be worsening. Small right pleural effusion is developing IMPRESSION: 1. Worsening right lower lobe infiltrate with a small right pleural effusion. Correlate for atelectas is and pneumonia
[2024-03-23 08:52] LABS: ALT 8 U/L (8-44); AST 10 U/L (13-35); Albumin 2.6 g/dL (3.8-4.9); Albumin/Globulin Ratio 1.24 Ratio (1.60-3.17); Alkaline Phosphatase 50 U/L (41-126); BUN/Creat Ratio 20.75 Ratio (12.00-20.00); Blood Urea Nitrogen 8.3 mg/dL (9.0-27.0); Carbon Dioxide 30.9 mmol/L (21.6-31.8); Chloride 96 mmol/L (96-109); Globulin 2.1 g/dL (1.6-3.3); Glucose 100 mg/dL (70-110); HCT 22.5 % (37.2-46.3); HGB 6.9 g/dL (12.0-15.0); MCH 24.6 pg (27.0-32.0); MCHC 30.7 g/dL (32.0-37.0); MCV 80.4 FL (80.0-97.0); Mean Platelet Volume 8.9 FL (9.5-12.2); NRBC Per 100 WBC 0 X 10*3/uL (0.00-0.01); Platelet Count 290 X 10*3/uL (140-440); Potassium 3.9 mmol/L (3.5-5.5); RDW 17.8 % (11.5-14.5); Sodium 135 mmol/L (135-145); Total Bilirubin 0.2 mg/dL (0.3-1.2); Total Protein 4.7 g/dL (6.2-8.2)
[2024-03-23 09:11] LABS: Basophils # (A) 0.01 X 10*3/uL (0.00-0.10); Basophils % (A) 0.1 %; Eosinophils # (A) 0.07 X 10*3/uL (0.04-0.35); Eosinophils % (A) 0.9 %; Hypochromasia (M) 2+; Lymphocytes % (A) 20.3 %; Monocytes % (A) 11.4 %; Neutrophils # (A) 5.29 X 10*3/uL (1.80-7.70); Neutrophils % (A) 66.9 %
[2024-03-23] MEDS: IPRATROPIUM-ALBUTEROL 3 ML NEB INHALATION SCH (11:54)
--- NOTE | 2024-03-23 13:15 | P.PN ---
Subjective Progress Note Date: 03/23/24 patient is a 63-year-old lady with past medical history significant for COPD, chronic respiratory failure on 2 L of oxygen who presented to the ER as a transfer from [facility] for shortness of breath. Patient was recently admitted to the hospital for COPD exacerbation. Patient stated that she was all right last night when he started experiencing sudden onset of shortness of breath, shortness of breath was present on rest. There was no complaint of chest pain. Patient was complaining of fevers at time. Patient also complaining of productive cough. There was no complaint nausea, vomiting abdominal pain. Patient was transferred to the ER for the symptoms Initial lab work done in the ER showed WBC 21.4, hemoglobin 0.2, platelet count 369, sodium 130, potassium 4.5, BUN 15, creatinine 0.38, bilirubin 0.8, troponin 0.012, UA negative for any infection Influenza A not detected Influenza B not detected RSV not detected COVID-19 not detected Chest x-ray done in the ER showed moderate to severe COPD changes. Superimposed diffuse infiltrate on the right Patient admitted to internal medicine service 03/22. Patient seen and examined. Patient stated that she is doing well compared to yesterday.Currently on 3 L of oxygen. Complaining of back pain 03/23. Patient seen and examined. Continues to be on 2 L of oxygen. Patient fevers overnight Tmax of 102. Blood work done this morning showed WBC 7.9, hemoglobin 6.9, platelet count 290, sodium 139, potassium 3.9, BUN 8.3, creatinine 0.4 REVIEW OF SYSTEMS: CONSTITUTIONAL: Mentioned above CARDIOVASCULAR: No chest pain, no palpitations, no syncope. PULMONARY: No shortness of breath, no cough, GASTROINTESTINAL: No diarrhea, no nausea, no vomiting, no abdominal pain. NEUROLOGICAL: No headaches, no weakness, PHYSICAL EXAMINATION: GENERAL: The patient is alert and oriented x3, not in any acute distress. Well developed, well nourished. HEENT: Pupils are round and equally reacting to light. EOMI. No scleral icterus. No conjunctival pallor. Normocephalic, atraumatic. No pharyngeal erythema. No th yromegaly. CARDIOVASCULAR: S1 and S2 present. No murmurs, rubs, or gallops. PULMONARY: Coarse breath sound bilaterally, no wheezing or crackles. ABDOMEN: Soft, nontender, nondistended, normoactive bowel sounds. No palpable organomegaly. MUSCULOSKELETAL: No joint swelling or deformity. EXTREMITIES: No cyanosis, clubbing, or pedal edema. NEUROLOGICAL: Gross neurological examination did not reveal any focal deficits. SKIN: No rashes. Assessment and plan Bacterial pneumonia Sepsis Anemia Acute on chronic hypoxic respiratory failure History of COPD Coronary artery disease Chronic atrial fibrillation Hypertension Monitor vital signs Monitor CBC Monitor CMP Continue telemetry monitoring Continue breathing treatments Follow-up on blood cultures Continue IV Rocephin azithromycin DC fluids Hemoglobin this morning 6.9, will transfuse a 1 unit of packed red blood cell Continue Xarelto, Toprol ID following Pulmonology following Labs and medication were reviewed.. Continue same treatment. Continue with symptomatic treatment. Resume home medication. Monitor labs and vitals. DVT and GI prophylaxis. Further recommendations as per clinical course of the patient Dictation was produced using [employer] dictation software. please excuse any grammatical, word or spelling errors. Objective - Vital Signs Vital signs: Vital Signs Temp 98.5 F 03/23/24 07:29 Pulse 89 03/23/24 07:29 Resp 18 03/23/24 07:29 BP 94/59 03/23/24 07:29 Pulse Ox 98 03/23/24 07:29 FiO2 Intake & Output 03/22/24 03/23/24 03/23/24 18:59 06:59 18:59 Intake Total 318 Output Total 700 Balance -382 Weight 71.214 kg 81 kg Intake: Oral 318 Output: Urine 700 Other: Voiding Method Diaper External Catheter # Voids 1 1 # Bowel Movements 1 - Labs CBC & Chem 7: 03/23/24 04:45 03/23/24 04:45 Labs: Abnormal Lab Results - Last 24 Hours (Table) 03/21/24 03/23/24 03/23/24 Range/Units 09:00 04:45 04:45 RBC 2.80 L (4.10-5.20) X 10*6/uL Hgb 6.9 A* (12.0-15.0) g/dL Hct 22.5 L (37.2-46.3) % MCH 24.6 L (27.0-32.0) pg MCHC 30.7 L (32.0-37.0) g/dL RDW 17.8 H (11.5-14.5) % MPV 8.9 L (9.5-12.2) FL Hypochromasia (manual) 2+ A BUN 8.3 L (9.0-27.0) mg/dL Creatinine 0.4 L (0.6-1.5) mg/dL BUN/Creatinine Ratio 20.75 H (12.00-20.00) Ratio Calcium 8.0 L (8.7-10.3) mg/dL Total Bilirubin 0.2 L (0.3-1.2) mg/dL AST 10 L (13-35) U/L Total Protein 4.7 L (6.2-8.2) g/dL Albumin 2.6 L (3.8-4.9) g/dL Albumin/Globulin Ratio 1.24 L (1.60-3.17) Ratio Procalcitonin 0.30 H (0.02-0.09) ng/mL Microbiology - Last 24 Hours (Table) 03/22/24 15:27 Gram Stain - Preliminary Sputum 03/21/24 09:00 Blood Culture - Preliminary Blood 03/21/24 09:15 Blood Culture - Preliminary Blood
--- NOTE | 2024-03-23 14:53 | P.PN ---
Subjective Progress Note Date: 03/23/24 63-year-old female patient, being seen today for worsening shortness of breath. The patient is known to have COPD and she is oxygen dependent and she resides in [facility] the [facility]. She typically uses oxygen 2 L/min nasal cannula. She has progressive dyspnea and hypoxemia and the patient was placed on a nonrebreather and the patient following that was brought in today hospital for further evaluation. Currently she is on 3 L of oxygen by nasal cannula with a pulse ox of 92%. Chest x-ray from the time of admission was reviewed and it shows COPD with diffuse emphysematous changes bilaterally. The patient also has diffuse infiltrate of the right lung reflecting an underlying infectious process . The patient was diagnosed having a right lung pneumonia. Started on Rocephin and Zithromax. Started on DuoNeb Treatments [id number]. Started on a combination of Perforomist and Pulmicort nebulized treatment twice a day. Started on IV fluids normal saline at rate of 130 cc an hour. Pulmonary consultation was also requested. On her blood work, the WBC count of 21 with a hemoglobin 10.2 and a platelet count of 369. BUN is 15 with a creatinine of 0.38 and a sodium levels at 130. Troponins are negative. proBNP level is at 785. UA is negative. The viral screen is negative. Otherwise, no other significant complaints. Her blood pressure is currently stable. No significant hypotension. Breathing is nonlabored. On today's evaluation of 03/22/2024, the patient is being seen for a follow-up. The patient was hospitalized from extensive right lung pneumonia. She is a halfway resident. A repeat chest x-ray was done today and the patient has multifocal right-sided airspace disease concerning for pneumonia and in comparison to the earlier chest x-ray, the findings are essentially stable and unchanged. The patient has a congested cough. She is producing sputum should be able to collect sputum for Gram stain and culture. The white cell count of 21 with a hemoglobin 0.2, and repeat blood work is pending for now. The patient remains on a combination of Rocephin and Zithromax. The patient on DuoNeb updrafts. Rest of the home medications have been resumed. No altered mentation. She is communicating. No pleurisy. No hemoptysis. The patient is seen today March 23, 2024 in follow-up on the regular medical floor. She is awake and alert in no acute distress. She is maintaining O2 saturations in the 90s on 2 L/min per nasal cannula. Chest x-ray reveals some worsening right lower lobe infiltrate and a small right pleural effusion. Her hemoglobin was 6.9 and she is receiving 1 unit of packed red blood cells today. Platelets 290. White count 7.9. Sodium 135. Potassium 3.9. Bicarb 96. BUN 8. Creatinine 0.4. Glucose 100. Procalcitonin was 0.30. She remains on ceftriaxone. Anticoagulated with Xarelto. Objective - Vital Signs Vital signs: Vital Signs Temp 99 F 03/23/24 14:35 Pulse 95 03/23/24 14:35 Resp 15 03/23/24 14:35 BP 113/59 03/23/24 14:25 Pulse Ox 99 03/23/24 14:35 FiO2 Intake & Output 03/22/24 03/23/24 03/23/24 18:59 06:59 18:59 Intake Total 318 200 Output Total 700 Balance -382 200 Weight 71.214 kg 81 kg 43.091 kg Intake: Oral 318 200 Blood Product 0 Unit 0 Output: Urine 700 Other: Voiding Method Diaper Diaper External Catheter External Catheter # Voids 1 1 # Bowel Movements 1 - Exam GENERAL EXAM: Alert, frail, pale, 63-year-old female, appears older than stated age, on 2 L nasal cannula, comfortable in no apparent distress. HEAD: Normocephalic. EYES: Normal reaction of pupils, equal size. NOSE: Clear with pink turbinates. THROAT: No erythema or exudates. NECK: No masses, no JVD. CHEST: No chest wall deformity. LUNGS: Equal air entry with crackles in the right lung base. CVS: S1 and S2 normal with no audible murmur, regular rhythm. ABDOMEN: No hepatosplenomegaly, normal bowel sounds, no guarding or rigidity. SPINE: No scoliosis or deformity SKIN: No rashes CENTRAL NERVOUS SYSTEM: No focal deficits, tone is normal in all 4 extremities. EXTREMITIES: There is no peripheral edema. No clubbing, no cyanosis. Peripheral pulses are intact. - Labs CBC & Chem 7: 03/23/24 04:45 03/23/24 04:45 Labs: Abnormal Lab Results - Last 24 Hours (Table) 03/23/24 03/23/24 03/23/24 Range/Units 04:45 04:45 11:37 RBC 2.80 L (4.10-5.20) X 10*6/uL Hgb 6.9 A* (12.0-15.0) g/dL Hct 22.5 L (37.2-46.3) % MCH 24.6 L (27.0-32.0) pg MCHC 30.7 L (32.0-37.0) g/dL RDW 17.8 H (11.5-14.5) % MPV 8.9 L (9.5-12.2) FL Hypochromasia (manual) 2+ A BUN 8.3 L (9.0-27.0) mg/dL Creatinine 0.4 L (0.6-1.5) mg/dL BUN/Creatinine Ratio 20.75 H (12.00-20.00) Ratio Calcium 8.0 L (8.7-10.3) mg/dL Total Bilirubin 0.2 L (0.3-1.2) mg/dL AST 10 L (13-35) U/L Total Protein 4.7 L (6.2-8.2) g/dL Albumin 2.6 L (3.8-4.9) g/dL Albumin/Globulin Ratio 1.24 L (1.60-3.17) Ratio Crossmatch See Detail Microbiology - Last 24 Hours (Table) 03/22/24 15:27 Gram Stain - Preliminary Sputum 03/21/24 09:00 Blood Culture - Preliminary Blood 03/21/24 09:15 Blood Culture - Preliminary Blood Assessment and Plan Assessment: Acute on top of chronic hypoxic respiratory failure the patient is currently on 2 liters by nasal cannula Acute right lung pneumonia with secondary shortness of breath, consider halfway acquired pneumonia Acute leukocytosis secondary to above Shortness of breath, acute on chronic secondary to above Acute anemia with a hemoglobin of 6.9, receiving 1 unit of packed red blood cells Coronary artery disease Chronic atrial fibrillation, currently in sinus, anticoagulated with Xarelto Previous history of CVA back in 2019 Hypertension Hyperlipidemia Seizure disorder History of chronic disease currently inactive and stable Plan: The patient was seen and evaluated Chest x-ray, labs and medications reviewed Continue the current treatment plan Receiving a unit of packed red blood cells today Titrate the FiO2 as tolerated We will continue to follow I have personally seen and examined the patient, performed the documentation and the assessment and plan as written. Number of minutes spent on the visit: 10.
[2024-03-23] MEDS: ALPRAZolam 0.25 MG TAB PO PRN (16:07)
--- NOTE | 2024-03-23 18:15 | P.PN ---
Subjective Progress Note Date: 03/23/24 Principal diagnosis: Reason for follow-up is pneumonia Patient is a 63-year-old female with a past medical history significant for atrial fibrillation coronary artery disease hypertension hyperlipidemia osteomyelitis COPD on 2 L home O2, presenting to the hospital from the local care home for evaluation of increasing shortness of breath, patient did have a fever hypoxemia and evidence of right-sided infiltrate concerning for pneumonia. On today's evaluation that is 03/23/2024, the patient continues to be afebrile, the patient is on 2 L nasal cannula oxygen continue to have a cough with occasional sputum production denies any nausea vomiting no abdominal pain no diarrhea and breathing comfortably, the Pt denies having any chest pain , denies having any abdominal pain no vomiting or any diarrhea has been reported by the nursing staff Patient white count normalized to 7.90, creatinine 0.4 cultures currently pending Objective - Vital Signs Vital signs: Vital Signs Temp 98.5 F 03/23/24 07:29 Pulse 84 03/23/24 12:03 Resp 18 03/23/24 07:40 BP 94/59 03/23/24 07:29 Pulse Ox 98 03/23/24 07:29 FiO2 Intake & Output 03/22/24 03/23/24 03/23/24 18:59 06:59 18:59 Intake Total 318 200 Output Total 700 Balance -382 200 Weight 71.214 kg 81 kg 43.091 kg Intake: Oral 318 200 Output: Urine 700 Other: Voiding Method Diaper Diaper External Catheter External Catheter # Voids 1 1 # Bowel Movements 1 - Exam GENERAL DESCRIPTION: An elderly female lying in bed in no distress RESPIRATORY SYSTEM: Unlabored breathing , decreased breath sounds at bases HEART: S1 S2 regular rate and rhythm , ABDOMEN: Soft , no tenderness EXTREMITIES: No edema feet - Labs CBC & Chem 7: 03/23/24 04:45 03/23/24 04:45 Labs: Abnormal Lab Results - Last 24 Hours (Table) 03/23/24 03/23/24 03/23/24 Range/Units 04:45 04:45 11:37 RBC 2.80 L (4.10-5.20) X 10*6/uL Hgb 6.9 A* (12.0-15.0) g/dL Hct 22.5 L (37.2-46.3) % MCH 24.6 L (27.0-32.0) pg MCHC 30.7 L (32.0-37.0) g/dL RDW 17.8 H (11.5-14.5) % MPV 8.9 L (9.5-12.2) FL Hypochromasia (manual) 2+ A BUN 8.3 L (9.0-27.0) mg/dL Creatinine 0.4 L (0.6-1.5) mg/dL BUN/Creatinine Ratio 20.75 H (12.00-20.00) Ratio Calcium 8.0 L (8.7-10.3) mg/dL Total Bilirubin 0.2 L (0.3-1.2) mg/dL AST 10 L (13-35) U/L Total Protein 4.7 L (6.2-8.2) g/dL Albumin 2.6 L (3.8-4.9) g/dL Albumin/Globulin Ratio 1.24 L (1.60-3.17) Ratio Crossmatch See Detail Microbiology - Last 24 Hours (Table) 03/22/24 15:27 Gram Stain - Preliminary Sputum 03/21/24 09:00 Blood Culture - Preliminary Blood 03/21/24 09:15 Blood Culture - Preliminary Blood Assessment and Plan (1) Sepsis Current Visit: Yes Status: Acute Code(s): A41.9 - SEPSIS, UNSPECIFIED ORGANISM SNOMED Code(s): 98841543 (2) Pneumonia Current Visit: Yes Status: Acute Code(s): J18.9 - PNEUMONIA, UNSPECIFIED ORGANISM SNOMED Code(s): 113999550 Plan: 1patient presented to hospital with sepsis in this patient who did have a fever tachycardia hypotension elevated white count source likely pneumonia in this patient with underlying COPD with a question of community-acquired versus gram- negative pneumonia. 2blood and sputum culture currently pending did have procalcitonin 0.30 3-patient did have normalization of the white count will continue with Rocephin while waiting for the culture to finalize Dictation was produced using [email or web address] software. please excuse any grammatical, word or spelling errors. Time with Patient: Less than 30
--- NOTE | 2024-03-24 09:16 | CDI ---
Documentation Clarification Form Date: 03/24/2024 From: Marzena Kramer Phone: [phone] Admit Date: 03/21/2024 10:18:00 AM Patient Name: Fabiola Giraldo Visit Number: [id number] Discharge Date: ATTENTION: The Clinical Documentation Specialists (CDI) and [facility] Coding Staff appreciate your assistance in clarifying documentation. Please respond to the clarification below the line at the bottom and electronically sign. The CDI & [facility] Coding staff will review the response and follow-up if needed. Please note: Queries are made part of the Legal Health Record. If you have any questions, please contact the author of this message via ITS. Dr. Varun Cortez: Patient has a documented BMI of 16.3 on 03/21. Additional clarification is requested. History/Risk Factors: 63-year-old female with a history of COPD, chronic respiratory failure on 2 liters of home oxygen, recent admission for COPD exacerbation who presents with sudden onset of SOB, fevers and productive cough Clinical Indicators: 03/21 H&P, Physical Examination, General: "Ill looking, cachectic." 03/23 RD Assessment, Nutrition Diagnosis: "Underweight" 03/21 Patients weight is 48.5kg Patients height is 5ft 8in Calculated BMI is 16.3 03/21, 03/23 Total Protein: 5.9, 4.7 Albumin: 3.0, 2.6 Treatments: RD Consult, Ensure Enlive TID, Healthy Heart chopped diet Please clarify, is there is an additional diagnosis that is clinically appropriate for this patient? [ x ] Cachexia [ ] Underweight [ ] No additional diagnosis/not clinically significant [ ] Other, please specify [ ] Unable to determine MTDD
[2024-03-24 10:14] LABS: Anisocytosis Slight; Basophils % (A) 0 %; Eosinophils # (A) 0.1 k/uL (0-0.7); Eosinophils % (A) 1 %; HCT 31.6 % (34.0-46.0); HGB 9.8 gm/dL (11.4-16.0); Hypochromasia Slight; Lymphocytes % (A) 14 %; MCH 25.3 pg (25.0-35.0); MCHC 30.9 g/dL (31.0-37.0); MCV 81.7 fL (80.0-100.0); Mean Platelet Volume 7.8; Monocytes # (A) 0.6 k/uL (0-1.0); Monocytes % (A) 8 %; Neutrophils # (A) 5.4 k/uL (1.3-7.7); Neutrophils % (A) 76 %; Platelet Count 368 k/uL (150-450); RBC 3.87 m/uL (3.80-5.40); WBC 7.1 k/uL (3.8-10.6)
--- NOTE | 2024-03-24 13:23 | P.PN ---
Subjective Progress Note Date: 03/24/24 63-year-old female patient, being seen today for worsening shortness of breath. The patient is known to have COPD and she is oxygen dependent and she resides in [facility] the [facility]. She typically uses oxygen 2 L/min nasal cannula. She has progressive dyspnea and hypoxemia and the patient was placed on a nonrebreather and the patient following that was brought in today hospital for further evaluation. Currently she is on 3 L of oxygen by nasal cannula with a pulse ox of 92%. Chest x-ray from the time of admission was reviewed and it shows COPD with diffuse emphysematous changes bilaterally. The patient also has diffuse infiltrate of the right lung reflecting an underlying infectious process . The patient was diagnosed having a right lung pneumonia. Started on Rocephin and Zithromax. Started on DuoNeb Treatments [id number]. Started on a combination of Perforomist and Pulmicort nebulized treatment twice a day. Started on IV fluids normal saline at rate of 130 cc an hour. Pulmonary consultation was also requested. On her blood work, the WBC count of 21 with a hemoglobin 10.2 and a platelet count of 369. BUN is 15 with a creatinine of 0.38 and a sodium levels at 130. Troponins are negative. proBNP level is at 785. UA is negative. The viral screen is negative. Otherwise, no other significant complaints. Her blood pressure is currently stable. No significant hypotension. Breathing is nonlabored. On today's evaluation of 03/22/2024, the patient is being seen for a follow-up. The patient was hospitalized from extensive right lung pneumonia. She is a long term resident. A repeat chest x-ray was done today and the patient has multifocal right-sided airspace disease concerning for pneumonia and in comparison to the earlier chest x-ray, the findings are essentially stable and unchanged. The patient has a congested cough. She is producing sputum should be able to collect sputum for Gram stain and culture. The white cell count of 21 with a hemoglobin 0.2, and repeat blood work is pending for now. The patient remains on a combination of Rocephin and Zithromax. The patient on DuoNeb updrafts. Rest of the home medications have been resumed. No altered mentation. She is communicating. No pleurisy. No hemoptysis. The patient is seen today March 23, 2024 in follow-up on the regular medical floor. She is awake and alert in no acute distress. She is maintaining O2 saturations in the 90s on 2 L/min per nasal cannula. Chest x-ray reveals some worsening right lower lobe infiltrate and a small right pleural effusion. Her hemoglobin was 6.9 and she is receiving 1 unit of packed red blood cells today. Platelets 290. White count 7.9. Sodium 135. Potassium 3.9. Bicarb 96. BUN 8. Creatinine 0.4. Glucose 100. Procalcitonin was 0.30. She remains on ceftriaxone. Anticoagulated with Xarelto. The patient is seen today March 24, 2024 in follow-up on the regular medical floor. She is resting in bed. Awake and alert in no acute distress. She is maintaining good O2 saturations in the high 90s on 3 L/min per nasal cannula. She did have a temperature of 101.5 last evening. She is currently afebrile. She remains on ceftriaxone. Continued on bronchodilators. Coagulated with Xarelto. Blood cultures revealing no growth. Sputum culture revealing no growth. White count 7.1. Hemoglobin 9.8. Platelets 368. Objective - Vital Signs Vital signs: Vital Signs Temp 98.2 F 03/24/24 07:42 Pulse 99 03/24/24 08:00 Resp 16 03/24/24 08:00 BP 95/59 03/24/24 07:42 Pulse Ox 93 L 03/24/24 08:38 FiO2 Intake & Output 03/23/24 03/24/24 03/24/24 18:59 06:59 18:59 Intake Total 510 Balance 510 Weight 43.091 kg 48.5 kg Intake: Oral 200 Blood Product 310 Rc As-1 Unit 310 [id number] Other: Voiding Method Diaper Diaper External Catheter External Catheter # Voids 1 1 1 # Bowel Movements 1 1 1 - Exam GENERAL EXAM: Alert, frail, 63-year-old female, appears older than stated age, on 3 L nasal cannula, in no apparent distress. HEAD: Normocephalic. EYES: Normal reaction of pupils, equal size. NOSE: Clear with pink turbinates. THROAT: No erythema or exudates. NECK: No masses, no JVD. CHEST: No chest wall deformity. LUNGS: Equal air entry with crackles in the right lung base. CVS: S1 and S2 normal with no audible murmur, regular rhythm. ABDOMEN: No hepatosplenomegaly, normal bowel sounds, no guarding or rigidity. SPINE: No scoliosis or deformity SKIN: No rashes CENTRAL NERVOUS SYSTEM: No focal deficits, tone is normal in all 4 extremities. EXTREMITIES: There is no peripheral edema. No clubbing, no cyanosis. Peripheral pulses are intact. - Labs CBC & Chem 7: 03/24/24 09:18 03/23/24 04:45 Labs: Abnormal Lab Results - Last 24 Hours (Table) 03/23/24 03/24/24 Range/Units 11:37 09:18 Hgb 9.8 L (11.4-16.0) gm/dL Hct 31.6 L (34.0-46.0) % MCHC 30.9 L (31.0-37.0) g/dL RDW 17.0 H (11.5-15.5) % Crossmatch See Detail Microbiology - Last 24 Hours (Table) 03/22/24 15:27 Gram Stain - Preliminary Sputum Sputum Culture - Preliminary 03/21/24 09:00 Blood Culture - Preliminary Blood 03/21/24 09:15 Blood Culture - Preliminary Blood Assessment and Plan Assessment: Acute on top of chronic hypoxic respiratory failure the patient is currently on 3 liters by nasal cannula Acute right lung pneumonia with secondary shortness of breath, consider long term acquired pneumonia Acute leukocytosis secondary to above recovered Febrile illness secondary to above Acute anemia with a hemoglobin of 6.9, received 1 unit of packed red blood cells current hemoglobin 9.8 Coronary artery disease Chronic atrial fibrillation, currently in sinus, anticoagulated with Xarelto Previous history of CVA back in 2019 Hypertension Hyperlipidemia Seizure disorder Chronic obstructive pulmonary disease Poor functional performance based on the above-mentioned multiple comorbidities Plan: The patient was seen and evaluated Labs and medications reviewed Continue the current treatment plan Titrate the FiO2 as tolerated We will continue to follow I have personally seen and examined the patient, performed the documentation and the assessment and plan as written. Number of minutes spent on the visit: 10.
[2024-03-24] MEDS: ALPRAZolam 0.5 MG TAB PO PRN (14:48)
--- NOTE | 2024-03-24 14:50 | P.PN ---
Subjective Progress Note Date: 03/24/24 patient is a 63-year-old lady with past medical history significant for COPD, chronic respiratory failure on 2 L of oxygen who presented to the ER as a transfer from [facility] for shortness of breath. Patient was recently admitted to the hospital for COPD exacerbation. Patient stated that she was all right last night when he started experiencing sudden onset of shortness of breath, shortness of breath was present on rest. There was no complaint of chest pain. Patient was complaining of fevers at time. Patient also complaining of productive cough. There was no complaint nausea, vomiting abdominal pain. Patient was transferred to the ER for the symptoms Initial lab work done in the ER showed WBC 21.4, hemoglobin 0.2, platelet count 369, sodium 130, potassium 4.5, BUN 15, creatinine 0.38, bilirubin 0.8, troponin 0.012, UA negative for any infection Influenza A not detected Influenza B not detected RSV not detected COVID-19 not detected Chest x-ray done in the ER showed moderate to severe COPD changes. Superimposed diffuse infiltrate on the right Patient admitted to internal medicine service 03/22. Patient seen and examined. Patient stated that she is doing well compared to yesterday.Currently on 3 L of oxygen. Complaining of back pain 03/23. Patient seen and examined. Continues to be on 2 L of oxygen. Patient fevers overnight Tmax of 102. Blood work done this morning showed WBC 7.9, hemoglobin 6.9, platelet count 290, sodium 139, potassium 3.9, BUN 8.3, creatinine 0.4 03/24. Patient seen and examined. No fevers overnight. Continues to feel better REVIEW OF SYSTEMS: CONSTITUTIONAL: Mentioned above CARDIOVASCULAR: No chest pain, no palpitations, no syncope. PULMONARY: No shortness of breath, no cough, GASTROINTESTINAL: No diarrhea, no nausea, no vomiting, no abdominal pain. NEUROLOGICAL: No headaches, no weakness, PHYSICAL EXAMINATION: GENERAL: The patient is alert and oriented x3, chronically ill looking HEENT: Pupils are round and equally reacting to light. EOMI. No scleral icterus. No conjunctival pallor. Normocephalic, atraumatic. No pharyngeal erythema. No thyromegaly. CARDIOVASCULAR: S1 and S2 present. No murmurs, rubs, or gallops. PULMONARY: Coarse breath sound bilaterally, no wheezing or crackles. ABDOMEN: Soft, nontender, nondistended, normoactive bowel sounds. No palpable organomegaly. MUSCULOSKELETAL: No joint swelling or deformity. EXTREMITIES: No cyanosis, clubbing, or pedal edema. NEUROLOGICAL: Gross neurological examination did not reveal any focal deficits. SKIN: No rashes. Assessment and plan Bacterial pneumonia Sepsis Anemia Acute on chronic hypoxic respiratory failure History of COPD Coronary artery disease Chronic atrial fibrillation Hypertension Cachexia Monitor vital signs Monitor CBC Monitor CMP Continue telemetry monitoring Continue breathing treatments Follow-up on blood cultures Continue IV Rocephin azithromycin Continue Xarelto, Toprol ID following Pulmonology following Labs and medication were reviewed.. Continue same treatment. Continue with symptomatic treatment. Resume home medication. Monitor labs and vitals. DVT and GI prophylaxis. Further recommendations as per clinical course of the patient Dictation was produced using [employer] dictation software. please excuse any grammatical, word or spelling errors. Objective - Vital Signs Vital signs: Vital Signs Temp 98.2 F 03/24/24 07:42 Pulse 99 03/24/24 08:00 Resp 16 03/24/24 08:00 BP 95/59 03/24/24 07:42 Pulse Ox 93 L 03/24/24 08:38 FiO2 Intake & Output 03/23/24 03/24/24 03/24/24 18:59 06:59 18:59 Intake Total 510 Balance 510 Weight 43.091 kg 48.5 kg Intake: Oral 200 Blood Product 310 Rc As-1 Unit 310 [id number] Other: Voiding Method Diaper Diaper External Catheter External Catheter # Voids 1 1 1 # Bowel Movements 1 1 1 - Labs CBC & Chem 7: 03/24/24 09:18 03/23/24 04:45 Labs: Abnormal Lab Results - Last 24 Hours (Table) 03/23/24 03/24/24 Range/Units 11:37 09:18 Hgb 9.8 L (11.4-16.0) gm/dL Hct 31.6 L (34.0-46.0) % MCHC 30.9 L (31.0-37.0) g/dL RDW 17.0 H (11.5-15.5) % Crossmatch See Detail Microbiology - Last 24 Hours (Table) 03/22/24 15:27 Gram Stain - Preliminary Sputum Sputum Culture - Preliminary 03/21/24 09:00 Blood Culture - Preliminary Blood 03/21/24 09:15 Blood Culture - Preliminary Blood
[2024-03-24] MEDS ORDERED: IPRATROPIUM-ALBUTEROL 3 ML NEB INHALATION PRN (21:59)
[2024-03-25 08:37] LABS: Basophils # (A) 0.02 X 10*3/uL (0.00-0.10); Basophils % (A) 0.2 %; Eosinophils # (A) 0.11 X 10*3/uL (0.04-0.35); Eosinophils % (A) 1.3 %; HCT 25.9 % (37.2-46.3); HGB 8.1 g/dL (12.0-15.0); Lymphocytes # (A) 2.15 X 10*3/uL (0.90-5.00); Lymphocytes % (A) 26.3 %; MCH 24.9 pg (27.0-32.0); MCHC 31.3 g/dL (32.0-37.0); MCV 79.7 FL (80.0-97.0); Mean Platelet Volume 9.3 FL (9.5-12.2); Monocytes # (A) 0.86 X 10*3/uL (0.20-1.00); Monocytes % (A) 10.5 %; NRBC Per 100 WBC 0 X 10*3/uL (0.00-0.01); Neutrophils # (A) 4.99 X 10*3/uL (1.80-7.70); Neutrophils % (A) 61.3 %; Platelet Count 321 X 10*3/uL (140-440); RBC 3.25 X 10*6/uL (4.10-5.20); WBC 8.16 X 10*3/uL (4.50-10.00)
[2024-03-25 08:44] LABS: Blood Urea Nitrogen 8.4 mg/dL (9.0-27.0); Chloride 98 mmol/L (96-109); Glucose 112 mg/dL (70-110); Potassium 3.6 mmol/L (3.5-5.5); Sodium 138 mmol/L (135-145)
[2024-03-25 08:45] LABS: ALT 8 U/L (8-44); AST 11 U/L (13-35); Albumin 2.7 g/dL (3.8-4.9); Albumin/Globulin Ratio 1.12 Ratio (1.60-3.17); Alkaline Phosphatase 55 U/L (41-126); Calcium 8.2 mg/dL (8.7-10.3); Carbon Dioxide 28.3 mmol/L (21.6-31.8); Globulin 2.4 g/dL (1.6-3.3); Total Bilirubin 0.2 mg/dL (0.3-1.2); Total Protein 5.1 g/dL (6.2-8.2)
--- NOTE | 2024-03-25 11:33 | P.PN ---
Subjective Progress Note Date: 03/25/24 63-year-old female patient, being seen today for worsening shortness of breath. The patient is known to have COPD and she is oxygen dependent and she resides in [facility] of the year. She typically uses oxygen 2 L/min nasal cannula. She has progressive dyspnea and hypoxemia and the patient was placed on a nonrebreather and the patient following that was brought in today hospital for further evaluation. Currently she is on 3 L of oxygen by nasal cannula with a pulse ox of 92%. Chest x-ray from the time of admission was reviewed and it shows COPD with diffuse emphysematous changes bilaterally. The patient also has diffuse infiltrate of the right lung reflecting an underlying infectious process . The patient was diagnosed having a right lung pneumonia. Started on Rocephin and Zithromax. Started on DuoNeb Treatments [id number]. Started on a combination of Perforomist and Pulmicort nebulized treatment twice a day. Started on IV fluids normal saline at rate of 130 cc an hour. Pulmonary consultation was also requested. On her blood work, the WBC count of 21 with a hemoglobin 10.2 and a platelet count of 369. BUN is 15 with a creatinine of 0.38 and a sodium levels at 130. Troponins are negative. proBNP level is at 785. UA is negative. The viral screen is negative. Otherwise, no other significant complaints. Her blood pressure is currently stable. No significant hypotension. Breathing is nonlabored. On today's evaluation of 03/22/2024, the patient is being seen for a follow-up. The patient was hospitalized from extensive right lung pneumonia. She is a retirement resident. A repeat chest x-ray was done today and the patient has multifocal right-sided airspace disease concerning for pneumonia and in comparison to the earlier chest x-ray, the findings are essentially stable and unchanged. The patient has a congested cough. She is producing sputum should be able to collect sputum for Gram stain and culture. The white cell count of 21 with a hemoglobin 0.2, and repeat blood work is pending for now. The patient remains on a combination of Rocephin and Zithromax. The patient on DuoNeb updrafts. Rest of the home medications have been resumed. No altered mentation. She is communicating. No pleurisy. No hemoptysis. The patient is seen today March 23, 2024 in follow-up on the regular medical floor. She is awake and alert in no acute distress. She is maintaining O2 saturations in the 90s on 2 L/min per nasal cannula. Chest x-ray reveals some worsening right lower lobe infiltrate and a small right pleural effusion. Her hemoglobin was 6.9 and she is receiving 1 unit of packed red blood cells today. Platelets 290. White count 7.9. Sodium 135. Potassium 3.9. Bicarb 96. BUN 8. Creatinine 0.4. Glucose 100. Procalcitonin was 0.30. She remains on ceftriaxone. Anticoagulated with Xarelto. The patient is seen today March 24, 2024 in follow-up on the regular medical floor. She is resting in bed. Awake and alert in no acute distress. She is maintaining good O2 saturations in the high 90s on 3 L/min per nasal cannula. She did have a temperature of 101.5 last evening. She is currently afebrile. She remains on ceftriaxone. Continued on bronchodilators. Coagulated with Xarelto. Blood cultures revealing no growth. Sputum culture revealing no growth. White count 7.1. Hemoglobin 9.8. Platelets 368. The patient is seen today March 25, 2024 in follow-up on the regular medical floor. She is awake and alert in no acute distress. Resting comfortably in bed. Denies any worsening shortness of breath, cough or congestion. She is maintaining O2 saturations in the 90s on 3 L/min per nasal cannula. She has been afebrile. Hemodynamically stable. She is status post 1 unit of packed red blood cells. Current hemoglobin 8.1. Platelets 321. White count 8.1. Sodium 138. Potassium 3.6. Bicarb 28. BUN 8. Creatinine 0.4. Glucose 112. Sputum cultures revealing presumptive Staph aureus. She is been initiated on ceftriaxone. She is continued on DuoNeb inhalations, Perforomist inhalations. Anticoagulated with Xarelto. Objective - Vital Signs Vital signs: Vital Signs Temp 97.3 F L 03/25/24 07:14 Pulse 99 03/25/24 07:35 Resp 17 03/25/24 07:35 BP 92/60 03/25/24 07:14 Pulse Ox 97 03/25/24 07:14 FiO2 Intake & Output 03/24/24 03/25/24 03/25/24 18:59 06:59 18:59 Intake Total 500 Balance 500 Weight 49 kg Intake: Intake, IV Titration 50 Amount cefTRIAXone 2 gm In 50 Sodium Chloride 0.9% 50 ml @ 100 mls/hr IVPB Q24HR [facility] Rx#:[id number] Oral 450 Other: Voiding Method Diaper Diaper Diaper External Catheter External Catheter External Catheter # Voids 1 2 # Bowel Movements 1 - Exam GENERAL EXAM: Alert, frail, pale 63-year-old female, appears older than stated age, on 3 L nasal cannula, resting in bed in no apparent distress. HEAD: Normocephalic. EYES: Normal reaction of pupils, equal size. NOSE: Clear with pink turbinates. THROAT: No erythema or exudates. NECK: No masses, no JVD. CHEST: No chest wall deformity. LUNGS: Equal air entry with crackles in the right lung base. CVS: S1 and S2 normal with no audible murmur, regular rhythm. ABDOMEN: No hepatosplenomegaly, normal bowel sounds, no guarding or rigidity. SPINE: No scoliosis or deformity SKIN: No rashes CENTRAL NERVOUS SYSTEM: No focal deficits, tone is normal in all 4 extremities. EXTREMITIES: There is no peripheral edema. No clubbing, no cyanosis. Peripheral pulses are intact. - Labs CBC & Chem 7: 03/25/24 03:51 03/25/24 03:51 Labs: Abnormal Lab Results - Last 24 Hours (Table) 03/25/24 03/25/24 Range/Units 03:51 03:51 RBC 3.25 L (4.10-5.20) X 10*6/uL Hgb 8.1 L (12.0-15.0) g/dL Hct 25.9 L (37.2-46.3) % MCV 79.7 L (80.0-97.0) FL MCH 24.9 L (27.0-32.0) pg MCHC 31.3 L (32.0-37.0) g/dL RDW 17.0 H (11.5-14.5) % MPV 9.3 L (9.5-12.2) FL BUN 8.4 L (9.0-27.0) mg/dL Creatinine 0.4 L (0.6-1.5) mg/dL BUN/Creatinine Ratio 21.00 H (12.00-20.00) Ratio Glucose 112 H (70-110) mg/dL Calcium 8.2 L (8.7-10.3) mg/dL Total Bilirubin 0.2 L (0.3-1.2) mg/dL AST 11 L (13-35) U/L Total Protein 5.1 L (6.2-8.2) g/dL Albumin 2.7 L (3.8-4.9) g/dL Albumin/Globulin Ratio 1.12 L (1.60-3.17) Ratio Microbiology - Last 24 Hours (Table) 03/22/24 15:27 Gram Stain - Preliminary Sputum Sputum Culture - Preliminary Presumptive Staph aureus 03/21/24 09:00 Blood Culture - Preliminary Blood 03/21/24 09:15 Blood Culture - Preliminary Blood Assessment and Plan Assessment: Acute on top of chronic hypoxic respiratory failure secondary to an acute right lung pneumonia, sputum culture revealing presumptive Staph aureus Acute right lung pneumonia with secondary shortness of breath, consider retirement acquired pneumonia Acute leukocytosis secondary to above recovered Febrile illness secondary to above Acute anemia with a hemoglobin of 6.9, received 1 unit of packed red blood cells current hemoglobin 8.1 Coronary artery disease Chronic atrial fibrillation, currently in sinus, anticoagulated with Xarelto Previous history of CVA back in 2019 Hypertension Hyperlipidemia Seizure disorder Chronic obstructive pulmonary disease Poor functional performance based on the above-mentioned multiple comorbidities Plan: The patient was seen and evaluated Labs and medications reviewed Sputum culture revealing presumptive Staph aureus Remains on ceftriaxone Continued on bronchodilators Titrate down the FiO2 as tolerated We will continue to follow I have personally seen and examined the patient, performed the documentation and the assessment and plan as written. Number of minutes spent on the visit: 10.
--- NOTE | 2024-03-25 13:02 | P.PN ---
Subjective Progress Note Date: 03/25/24 patient is a 63-year-old lady with past medical history significant for COPD, chronic respiratory failure on 2 L of oxygen who presented to the ER as a transfer from [facility] for shortness of breath. Patient was recently admitted to the hospital for COPD exacerbation. Patient stated that she was all right last night when he started experiencing sudden onset of shortness of breath, shortness of breath was present on rest. There was no complaint of chest pain. Patient was complaining of fevers at time. Patient also complaining of productive cough. There was no complaint nausea, vomiting abdominal pain. Patient was transferred to the ER for the symptoms Initial lab work done in the ER showed WBC 21.4, hemoglobin 0.2, platelet count 369, sodium 130, potassium 4.5, BUN 15, creatinine 0.38, bilirubin 0.8, troponin 0.012, UA negative for any infection Influenza A not detected Influenza B not detected RSV not detected COVID-19 not detected Chest x-ray done in the ER showed moderate to severe COPD changes. Superimposed diffuse infiltrate on the right Patient admitted to internal medicine service 03/22. Patient seen and examined. Patient stated that she is doing well compared to yesterday.Currently on 3 L of oxygen. Complaining of back pain 03/23. Patient seen and examined. Continues to be on 2 L of oxygen. Patient fevers overnight Tmax of 102. Blood work done this morning showed WBC 7.9, hemoglobin 6.9, platelet count 290, sodium 139, potassium 3.9, BUN 8.3, creatinine 0.4 03/24. Patient seen and examined. No fevers overnight. Continues to feel better 03/25. Patient seen and examined. Blood work done this morning showed WBC 8.16, hemoglobin 8.1, platelet count 321, sodium 138, potassium 3.6, BUN 8.4, creatinine 0.4 patient is feeling better. Has more energy compared to yesterday REVIEW OF SYSTEMS: CONSTITUTIONAL: Mentioned above CARDIOVASCULAR: No chest pain, no palpitations, no syncope. PULMONARY: No shortness of breath, no cough, GASTROINTESTINAL: No diarrhea, no nausea, no vomiting, no abdominal pain. NEUROLOGICAL: No headaches, no weakness, PHYSICAL EXAMINATION: GENERAL: The patient is alert and oriented x3, chronically ill looking HEENT: Pupils are round and equally reacting to light. EOMI. No scleral icterus. No conjunctival pallor. Normocephalic, atraumatic. No pharyngeal erythema. No thyromegaly. CARDIOVASCULAR: S1 and S2 present. No murmurs, rubs, or gallops. PULMONARY: Coarse breath sound bilaterally, no wheezing or crackles. ABDOMEN: Soft, nontender, nondistended, normoactive bowel sounds. No palpable organomegaly. MUSCULOSKELETAL: No joint swelling or deformity. EXTREMITIES: No cyanosis, clubbing, or pedal edema. NEUROLOGICAL: Gross neurological examination did not reveal any focal deficits. SKIN: No rashes. Assessment and plan Bacterial pneumonia Sepsis Anemia Acute on chronic hypoxic respiratory failure History of COPD Coronary artery disease Chronic atrial fibrillation Hypertension Cachexia Monitor vital signs Monitor CBC Monitor CMP Continue telemetry monitoring Continue breathing treatments Follow-up on blood cultures Continue IV Rocephin completed azithromycin Continue Xarelto, Toprol ID following Pulmonology following Labs and medication were reviewed.. Continue same treatment. Continue with symptomatic treatment. Resume home medication. Monitor labs and vitals. DVT and GI prophylaxis. Further recommendations as per clinical course of the patient Dictation was produced using [employer] dictation software. please excuse any grammatical, word or spelling errors. Objective - Vital Signs Vital signs: Vital Signs Temp 97.3 F L 03/25/24 07:14 Pulse 99 03/25/24 07:35 Resp 17 03/25/24 07:35 BP 92/60 03/25/24 07:14 Pulse Ox 97 03/25/24 07:14 FiO2 Intake & Output 03/24/24 03/25/24 03/25/24 18:59 06:59 18:59 Intake Total 500 Balance 500 Weight 49 kg Intake: Intake, IV Titration 50 Amount cefTRIAXone 2 gm In 50 Sodium Chloride 0.9% 50 ml @ 100 mls/hr IVPB Q24HR [facility] Rx#:[id number] Oral 450 Other: Voiding Method Diaper Diaper Diaper External Catheter External Catheter External Catheter # Voids 1 2 # Bowel Movements 1 - Labs CBC & Chem 7: 03/25/24 03:51 03/25/24 03:51 Labs: Abnormal Lab Results - Last 24 Hours (Table) 03/24/24 03/25/24 03/25/24 Range/Units 09:18 03:51 03:51 RBC 3.25 L (4.10-5.20) X 10*6/uL Hgb 9.8 L 8.1 L (11.4-16.0) gm/dL Hct 31.6 L 25.9 L (34.0-46.0) % MCV 79.7 L (80.0-97.0) FL MCH 24.9 L (27.0-32.0) pg MCHC 30.9 L 31.3 L (31.0-37.0) g/dL RDW 17.0 H 17.0 H (11.5-15.5) % MPV 9.3 L (9.5-12.2) FL BUN 8.4 L (9.0-27.0) mg/dL Creatinine 0.4 L (0.6-1.5) mg/dL BUN/Creatinine Ratio 21.00 H (12.00-20.00) Ratio Glucose 112 H (70-110) mg/dL Calcium 8.2 L (8.7-10.3) mg/dL Total Bilirubin 0.2 L (0.3-1.2) mg/dL AST 11 L (13-35) U/L Total Protein 5.1 L (6.2-8.2) g/dL Albumin 2.7 L (3.8-4.9) g/dL Albumin/Globulin Ratio 1.12 L (1.60-3.17) Ratio Microbiology - Last 24 Hours (Table) 03/22/24 15:27 Gram Stain - Preliminary Sputum Sputum Culture - Preliminary Presumptive Staph aureus 03/21/24 09:00 Blood Culture - Preliminary Blood 03/21/24 09:15 Blood Culture - Preliminary Blood
[2024-03-25] MEDS: SYMBICORT 160-4.5 MCG INHALER INHALATION SCH (20:26)
--- NOTE | 2024-03-26 07:50 | XR ---
EXAMINATION TYPE: XR chest 1V portable DATE OF EXAM: 03/26/2024 HISTORY: Shortness of breath. COMPARISON: 03/23/2024 TECHNIQUE: Single view of the chest is submitted. FINDINGS: Demonstrated are scattered senescent parenchymal change. Improved aeration right mid and right lower lung zone. Persistent coarse infiltrate right upper lobe and right perihilar region. The left lung is clear at this time. The heart is stable. Hilar and mediastinal structures are within normal limits. Degenerative changes are seen of the dorsal spine. IMPRESSION: 1. Improving features of right-sided pneumonia.
--- NOTE | 2024-03-26 13:07 | P.PN ---
Subjective Progress Note Date: 03/26/24 63-year-old female patient, being seen today for worsening shortness of breath. The patient is known to have COPD and she is oxygen dependent and she resides in [facility] of the year. She typically uses oxygen 2 L/min nasal cannula. She has progressive dyspnea and hypoxemia and the patient was placed on a nonrebreather and the patient following that was brought in today hospital for further evaluation. Currently she is on 3 L of oxygen by nasal cannula with a pulse ox of 92%. Chest x-ray from the time of admission was reviewed and it shows COPD with diffuse emphysematous changes bilaterally. The patient also has diffuse infiltrate of the right lung reflecting an underlying infectious process . The patient was diagnosed having a right lung pneumonia. Started on Rocephin and Zithromax. Started on DuoNeb Treatments [id number]. Started on a combination of Perforomist and Pulmicort nebulized treatment twice a day. Started on IV fluids normal saline at rate of 130 cc an hour. Pulmonary consultation was also requested. On her blood work, the WBC count of 21 with a hemoglobin 10.2 and a platelet count of 369. BUN is 15 with a creatinine of 0.38 and a sodium levels at 130. Troponins are negative. proBNP level is at 785. UA is negative. The viral screen is negative. Otherwise, no other significant complaints. Her blood pressure is currently stable. No significant hypotension. Breathing is nonlabored. On today's evaluation of 03/22/2024, the patient is being seen for a follow-up. The patient was hospitalized from extensive right lung pneumonia. She is a retirement resident. A repeat chest x-ray was done today and the patient has multifocal right-sided airspace disease concerning for pneumonia and in comparison to the earlier chest x-ray, the findings are essentially stable and unchanged. The patient has a congested cough. She is producing sputum should be able to collect sputum for Gram stain and culture. The white cell count of 21 with a hemoglobin 0.2, and repeat blood work is pending for now. The patient remains on a combination of Rocephin and Zithromax. The patient on DuoNeb updrafts. Rest of the home medications have been resumed. No altered mentation. She is communicating. No pleurisy. No hemoptysis. The patient is seen today March 23, 2024 in follow-up on the regular medical floor. She is awake and alert in no acute distress. She is maintaining O2 saturations in the 90s on 2 L/min per nasal cannula. Chest x-ray reveals some worsening right lower lobe infiltrate and a small right pleural effusion. Her hemoglobin was 6.9 and she is receiving 1 unit of packed red blood cells today. Platelets 290. White count 7.9. Sodium 135. Potassium 3.9. Bicarb 96. BUN 8. Creatinine 0.4. Glucose 100. Procalcitonin was 0.30. She remains on ceftriaxone. Anticoagulated with Xarelto. The patient is seen today March 24, 2024 in follow-up on the regular medical floor. She is resting in bed. Awake and alert in no acute distress. She is maintaining good O2 saturations in the high 90s on 3 L/min per nasal cannula. She did have a temperature of 101.5 last evening. She is currently afebrile. She remains on ceftriaxone. Continued on bronchodilators. Coagulated with Xarelto. Blood cultures revealing no growth. Sputum culture revealing no growth. White count 7.1. Hemoglobin 9.8. Platelets 368. The patient is seen today March 25, 2024 in follow-up on the regular medical floor. She is awake and alert in no acute distress. Resting comfortably in bed. Denies any worsening shortness of breath, cough or congestion. She is maintaining O2 saturations in the 90s on 3 L/min per nasal cannula. She has been afebrile. Hemodynamically stable. She is status post 1 unit of packed red blood cells. Current hemoglobin 8.1. Platelets 321. White count 8.1. Sodium 138. Potassium 3.6. Bicarb 28. BUN 8. Creatinine 0.4. Glucose 112. Sputum cultures revealing presumptive Staph aureus. She is been initiated on ceftriaxone. She is continued on DuoNeb inhalations, Perforomist inhalations. Anticoagulated with Xarelto. The patient is seen today March 26, 2024 in follow-up on the regular medical floor. She is sitting up in bed. Awake and alert in no acute distress. Maintaining O2 saturations in the 90s on 3 L/min per nasal cannula. Follow-up chest x-ray shows improvement in the right-sided pneumonia. Sputum culture was positive for methicillin sensitive Staphylococcus aureus and [place] albicans. She has completed ceftriaxone and azithromycin. She remains on DuoNeb inhalations, Symbicort. Anticoagulated with Xarelto. Objective - Vital Signs Vital signs: Vital Signs Temp 97.8 F 03/26/24 07:15 Pulse 92 03/26/24 09:45 Resp 17 03/26/24 07:15 BP 107/66 03/26/24 08:48 Pulse Ox 95 03/26/24 07:15 FiO2 Intake & Output 03/25/24 03/26/24 03/26/24 18:59 06:59 18:59 Weight 46.5 kg Other: Voiding Method Diaper Diaper External Catheter # Voids 5 2 # Bowel Movements 3 1 - Exam GENERAL EXAM: Alert, 63-year-old female, on 3 L nasal cannula, resting in bed, in no apparent distress. HEAD: Normocephalic. EYES: Normal reaction of pupils, equal size. NOSE: Clear with pink turbinates. THROAT: No erythema or exudates. NECK: No masses, no JVD. CHEST: No chest wall deformity. LUNGS: Equal air entry with crackles in the right lung base. CVS: S1 and S2 normal with no audible murmur, regular rhythm. ABDOMEN: No hepatosplenomegaly, normal bowel sounds, no guarding or rigidity. SPINE: No scoliosis or deformity SKIN: No rashes CENTRAL NERVOUS SYSTEM: No focal deficits, tone is normal in all 4 extremities. EXTREMITIES: There is no peripheral edema. No clubbing, no cyanosis. Peripheral pulses are intact. - Labs CBC & Chem 7: 03/25/24 03:51 03/25/24 03:51 Labs: Microbiology - Last 24 Hours (Table) 03/22/24 15:27 Gram Stain - Final Sputum Sputum Culture - Final Staphylococcus aureus [place] albicans Assessment and Plan Assessment: Acute on top of chronic hypoxic respiratory failure secondary to an acute right lung pneumonia, sputum culture revealing methicillin sensitive Staph aureus Acute right lung pneumonia with secondary shortness of breath, consider retirement acquired pneumonia Acute leukocytosis secondary to above, recovered Febrile illness secondary to above, recovered Acute anemia with a hemoglobin of 6.9, received 1 unit of packed red blood cells current hemoglobin 8.1 Coronary artery disease Chronic atrial fibrillation, currently in sinus, anticoagulated with Xarelto Previous history of CVA back in 2019 Hypertension Hyperlipidemia Seizure disorder Chronic obstructive pulmonary disease Poor functional performance based on the above-mentioned multiple comorbidities Plan: The patient was seen and evaluated Labs and medications reviewed Chest x-ray reviewed and showing improvement Sputum culture revealing methicillin sensitive Staph aureus Completed ceftriaxone and azithromycin Continued on bronchodilators Plan is to return to [facility] today I have personally seen and examined the patient, performed the documentation and the assessment and plan as written. Number of minutes spent on the visit: 10.
--- NOTE | 2024-03-26 13:34 | P.DS ---
Providers Date of admission: 03/21/24 10:18 Expected date of discharge: 03/26/24 Attending physician: Buddy Walker Consults: 03/21/24 11:17 Consult Physician Urgent Consulting Provider: Margarita Irwin Consult Reason/Comments: pneumonia Do you want consulting provider notified?: Yes 03/21/24 11:18 Consult Physician Urgent Consulting Provider: Khadijah Chaudhary Consult Reason/Comments: Healthcare associated pneumonia, hx copd Do you want consulting provider notified?: Yes Primary care physician: [facility] Course: Discharge diagnoses; Bacterial pneumonia Sepsis Anemia Acute on chronic hypoxic respiratory failure History of COPD Coronary artery disease Chronic atrial fibrillation Hypertension Cachexia Hospital course; patient is a 63-year-old lady with past medical history significant for COPD, chronic respiratory failure on 2 L of oxygen who presented to the ER as a transfer from [facility] for shortness of breath. Patient was recently admitted to the hospital for COPD exacerbation. Patient stated that she was all right last night when he started experiencing sudden onset of shortness of breath, shortness of breath was present on rest. There was no complaint of chest pain. Patient was complaining of fevers at time. Patient also complaining of productive cough. There was no complaint nausea, vomiting abdominal pain. Patient was transferred to the ER for the symptoms Initial lab work done in the ER showed WBC 21.4, hemoglobin 0.2, platelet count 369, sodium 130, potassium 4.5, BUN 15, creatinine 0.38, bilirubin 0.8, troponin 0.012, UA negative for any infection Influenza A not detected Influenza B not detected RSV not detected COVID-19 not detected Chest x-ray done in the ER showed moderate to severe COPD changes. Superimposed diffuse infiltrate on the right Patient admitted to internal medicine service 03/22. Patient seen and examined. Patient stated that she is doing well compared to yesterday.Currently on 3 L of oxygen. Complaining of back pain 03/23. Patient seen and examined. Continues to be on 2 L of oxygen. Patient fevers overnight Tmax of 102. Blood work done this morning showed WBC 7.9, hemoglobin 6.9, platelet count 290, sodium 139, potassium 3.9, BUN 8.3, creatinine 0.4 03/24. Patient seen and examined. No fevers overnight. Continues to feel better 03/25. Patient seen and examined. Blood work done this morning showed WBC 8.16, hemoglobin 8.1, platelet count 321, sodium 138, potassium 3.6, BUN 8.4, creatinine 0.4 patient is feeling better. Has more energy compared to yesterday 03/26. Patient seen and examined. Being discharged on oral Ceftin for 5 more days. Outpatient follow-up with PCP PHYSICAL EXAMINATION: GENERAL: The patient is alert and oriented x3, ill looking HEENT: Pupils are round and equally reacting to light. EOMI. No scleral icterus. No conjunctival pallor. Normocephalic, atraumatic. No pharyngeal erythema. No thyromegaly. CARDIOVASCULAR: S1 and S2 present. No murmurs, rubs, or gallops. PULMONARY: Chest is clear to auscultation, no wheezing or crackles. ABDOMEN: Soft, nontender, nondistended, normoactive bowel sounds. No palpable organomegaly. MUSCULOSKELETAL: No joint swelling or deformity. EXTREMITIES: No cyanosis, clubbing, or pedal edema. NEUROLOGICAL: Gross neurological examination did not reveal any focal deficits. SKIN: No rashes. Dictation was produced using [email or web address] dictation software. please excuse any grammatical, word or spelling errors. Patient Condition at Discharge: Good Plan - Discharge Summary Discharge Rx Participant: No New Discharge Prescriptions: New cefUROXime axetiL [Cefuroxime] 500 mg PO BID 5 Days #10 tab Continue Fluticasone Nasal Berne [Flonase Nasal Berne] 1 spr EA NOSTRIL DAILY levETIRAcetam [Keppra] 1,000 mg PO BID@0700,1900 Metoprolol Succinate (ER) [Toprol XL] 50 mg PO DAILY Rivaroxaban [Xarelto] 20 mg PO DAILY Buprenorphine/Naloxone 8Mg/2Mg [Suboxone 8-2Mg Film] 1 film SL DAILY Omeprazole 20 mg PO DAILY Ergocalciferol (Vitamin D2) [Drisdol (50,000 Iu)] 1,250 mcg PO Q14D Ondansetron [Zofran] 4 mg PO Q8H PRN PRN Reason: Nausea QUEtiapine [SEROquel] 400 mg PO HS@2000 Umeclidinium Brm/Vilanterol Tr [Anoro Ellipta 62.5-25 Mcg INH] 1 puff INHALATION RT-DAILY Albuterol Sulfate [Albuterol Sulfate Hfa] 2 puff INHALATION RT-Q6H PRN #1 each PRN Reason: Shortness Of Breath Ferrous Sulfate [Iron (65 MG Elemental)] 325 mg PO BID Loperamide HCl [Imodium A-D] 2 - 4 mg PO QID PRN MDD 16 mg PRN Reason: Diarrhea Ipratropium-Albuterol Nebulize [Duoneb 0.5 mg-3 mg/3 ml Soln] 3 ml INHALATION RT-QID PRN each PRN Reason: Shortness Of Breath Or Wheezing Ipratropium-Albuterol Nebulize [Duoneb 0.5 mg-3 mg/3 ml Soln] 3 ml INHALATION RT-QID@,,, Pantoprazole [Protonix] 40 mg PO DAILY HYDROcodone/APAP 7.5-325MG [[place] 7.5-325] 1 tab PO Q6HR PRN #8 tab PRN Reason: Pain Changed Gabapentin [Neurontin] 300 mg PO BID@0700,1900 #6 cap Discharge Medication List Fluticasone Nasal [place] [Flonase Nasal [place]] 1 spr EA NOSTRIL DAILY 03/27/20 [History] Albuterol Sulfate [Albuterol Sulfate Hfa] 2 puff INHALATION RT-Q6H PRN #1 each 10/04/22 [Rx] levETIRAcetam [Keppra] 1,000 mg PO BID@0700,1900 03/20/23 [History] Metoprolol Succinate (ER) [Toprol XL] 50 mg PO DAILY 06/21/23 [History] Rivaroxaban [Xarelto] 20 mg PO DAILY 06/21/23 [History] Buprenorphine/Naloxone 8Mg/2Mg [Suboxone 8-2Mg Film] 1 film SL DAILY 03/05/24 [History] Ergocalciferol (Vitamin D2) [Drisdol (50,000 Iu)] 1,250 mcg PO Q14D 03/05/24 [History] Ferrous Sulfate [Iron (65 MG Elemental)] 325 mg PO BID 03/05/24 [History] Loperamide HCl [Imodium A-D] 2 - 4 mg PO QID PRN MDD 16 mg 03/05/24 [History] Omeprazole 20 mg PO DAILY 03/05/24 [History] Ipratropium-Albuterol Nebulize [Duoneb 0.5 mg-3 mg/3 ml Soln] 3 ml INHALATION RT-QID PRN each 03/09/24 [Rx] Ipratropium-Albuterol Nebulize [Duoneb 0.5 mg-3 mg/3 ml Soln] 3 ml INHALATION RT-QID@07,13,19,23 03/21/24 [History] Ondansetron [Zofran] 4 mg PO Q8H PRN 03/21/24 [History] Pantoprazole [Protonix] 40 mg PO DAILY 03/21/24 [History] QUEtiapine [SEROquel] 400 mg PO HS@199903/21/24 [History] Umeclidinium Brm/Vilanterol Tr [Anoro Ellipta 62.5-25 Mcg INH] 1 puff INHALATION RT-DAILY 03/21/24 [History] Gabapentin [Neurontin] 300 mg PO BID@0700,1900 #6 cap 03/26/24 [Rx] HYDROcodone/APAP 7.5-325MG [[place] 7.5-325] 1 tab PO Q6HR PRN #8 tab 03/26/24 [Rx] cefUROXime axetiL [Cefuroxime] 500 mg PO BID 5 Days #10 tab 03/26/24 [Rx] Follow up Appointment(s)/Referral(s): Cesar, [NON-STAFF] - As Needed Daksha Steiner MD [Primary Care Provider] - 1-2 days Discharge Disposition: TRANSFER TO SNF/ECF
[2024-03-26 14:21] VITALS: BMI 15.5
[2024-03-26 14:27] VITALS: BP 115/70; PULSE 95; RESP 18; TEMP 98.4
--- NOTE | 2024-03-26 16:47 | P.PN ---
Subjective Progress Note Date: 03/25/24 Principal diagnosis: Reason for follow-up is pneumonia Patient is a 63-year-old female with a past medical history significant for atrial fibrillation coronary artery disease hypertension hyperlipidemia osteomyelitis COPD on 2 L home O2, [facility] for evaluation of increasing shortness of breath, patient did have a fever hypoxemia and evidence of right-sided infiltrate concerning for pneumonia. On today's evaluation that is 03/25/2024, patient has been afebrile, patient is breathing comfortably and is currently on 3 L current oxygen, patient still complaining of cough no decrease in intensity occasional sputum production no chest pain no nausea vomiting no abdominal pain no diarrhea. Patient white count is 8.16 creatinine 0.4 Objective - Vital Signs Vital signs: Vital Signs Temp 98.7 F 03/25/24 14:00 Pulse 94 03/25/24 14:00 Resp 17 03/25/24 14:00 BP 130/64 03/25/24 14:00 Pulse Ox 98 03/25/24 14:00 FiO2 Intake & Output 03/24/24 03/25/24 03/25/24 18:59 06:59 18:59 Intake Total 500 Balance 500 Weight 49 kg Intake: Intake, IV Titration 50 Amount cefTRIAXone 2 gm In 50 Sodium Chloride 0.9% 50 ml @ 100 mls/hr IVPB Q24HR [facility] Rx#:[id number] Oral 450 Other: Voiding Method Diaper Diaper Diaper External Catheter External Catheter External Catheter # Voids 1 2 # Bowel Movements 1 - Exam GENERAL DESCRIPTION: An elderly female lying in bed in no distress RESPIRATORY SYSTEM: Unlabored breathing , decreased breath sounds at bases HEART: S1 S2 regular rate and rhythm , ABDOMEN: Soft , no tenderness EXTREMITIES: No edema feet - Labs CBC & Chem 7: 03/25/24 03:51 03/25/24 03:51 Labs: Abnormal Lab Results - Last 24 Hours (Table) 03/25/24 03/25/24 Range/Units 03:51 03:51 RBC 3.25 L (4.10-5.20) X 10*6/uL Hgb 8.1 L (12.0-15.0) g/dL Hct 25.9 L (37.2-46.3) % MCV 79.7 L (80.0-97.0) FL MCH 24.9 L (27.0-32.0) pg MCHC 31.3 L (32.0-37.0) g/dL RDW 17.0 H (11.5-14.5) % MPV 9.3 L (9.5-12.2) FL BUN 8.4 L (9.0-27.0) mg/dL Creatinine 0.4 L (0.6-1.5) mg/dL BUN/Creatinine Ratio 21.00 H (12.00-20.00) Ratio Glucose 112 H (70-110) mg/dL Calcium 8.2 L (8.7-10.3) mg/dL Total Bilirubin 0.2 L (0.3-1.2) mg/dL AST 11 L (13-35) U/L Total Protein 5.1 L (6.2-8.2) g/dL Albumin 2.7 L (3.8-4.9) g/dL Albumin/Globulin Ratio 1.12 L (1.60-3.17) Ratio Microbiology - Last 24 Hours (Table) 03/22/24 15:27 Gram Stain - Preliminary Sputum Sputum Culture - Preliminary Presumptive Staph aureus 03/21/24 09:00 Blood Culture - Preliminary Blood 03/21/24 09:15 Blood Culture - Preliminary Blood Assessment and Plan (1) Sepsis Current Visit: Yes Status: Acute Code(s): A41.9 - SEPSIS, UNSPECIFIED ORGANISM SNOMED Code(s): 55136076 (2) Pneumonia Current Visit: Yes Status: Acute Code(s): J18.9 - PNEUMONIA, UNSPECIFIED ORGANISM SNOMED Code(s): 139210520 Plan: 1patient presented to hospital with sepsis in this patient who did have a fever tachycardia hypotension elevated white count source likely pneumonia in this patient with underlying COPD with a question of community-acquired versus gram- negative pneumonia. 2blood and sputum culture currently pending did have procalcitonin 0.30 3-patient slowly clinically improving white count has normalized sputum cultures pending continue with Rocephin while waiting for the culture to finalize Dictation was produced using [employer] dictation software. please excuse any grammatical, word or spelling errors. Time with Patient: Less than 30
--- NOTE | 2024-03-26 16:47 | P.PN ---
Subjective Progress Note Date: 03/24/24 Principal diagnosis: Reason for follow-up is pneumonia Patient is a 63-year-old female with a past medical history significant for atrial fibrillation coronary artery disease hypertension hyperlipidemia osteomyelitis COPD on 2 L home O2, [facility] evaluation of increasing shortness of breath, patient did have a fever hypoxemia and evidence of right-sided infiltrate concerning for pneumonia. On today's evaluation that is 03/24/2024, Patient is afebrile patient is currently on 3 L nasal cannula oxygen and denies having any worsening shortness of breath, the patient denies any chest pain or any worsening cough, the patient denies any nausea vomiting did not have any abdominal pain and no diarrhea. Patient white count normalized to 7.1 creatinine 0.4 sputum cultures pending Objective - Vital Signs Vital signs: Vital Signs Temp 98.2 F 03/24/24 07:42 Pulse 99 03/24/24 08:00 Resp 16 03/24/24 08:00 BP 95/59 03/24/24 07:42 Pulse Ox 93 L 03/24/24 08:38 FiO2 Intake & Output 03/23/24 03/24/24 03/24/24 18:59 06:59 18:59 Intake Total 510 Balance 510 Weight 43.091 kg 48.5 kg Intake: Oral 200 Blood Product 310 Rc As-1 Unit 310 [id number] Other: Voiding Method Diaper Diaper External Catheter External Catheter # Voids 1 1 1 # Bowel Movements 1 1 1 - Exam GENERAL DESCRIPTION: An elderly female lying in bed in no distress RESPIRATORY SYSTEM: Unlabored breathing , decreased breath sounds at bases HEART: S1 S2 regular rate and rhythm , ABDOMEN: Soft , no tenderness EXTREMITIES: No edema feet - Labs CBC & Chem 7: 03/25/24 03:51 03/25/24 03:51 Labs: Abnormal Lab Results - Last 24 Hours (Table) 03/23/24 03/24/24 Range/Units 11:37 09:18 Hgb 9.8 L (11.4-16.0) gm/dL Hct 31.6 L (34.0-46.0) % MCHC 30.9 L (31.0-37.0) g/dL RDW 17.0 H (11.5-15.5) % Crossmatch See Detail Microbiology - Last 24 Hours (Table) 03/22/24 15:27 Gram Stain - Preliminary Sputum Sputum Culture - Preliminary 03/21/24 09:00 Blood Culture - Preliminary Blood 03/21/24 09:15 Blood Culture - Preliminary Blood Assessment and Plan (1) Sepsis Current Visit: Yes Status: Acute Code(s): A41.9 - SEPSIS, UNSPECIFIED ORGANISM SNOMED Code(s): 77687183 (2) Pneumonia Current Visit: Yes Status: Acute Code(s): J18.9 - PNEUMONIA, UNSPECIFIED ORGANISM SNOMED Code(s): 437412132 Plan: 1patient presented to hospital with sepsis in this patient who did have a fever tachycardia hypotension elevated white count source likely pneumonia in this patient with underlying COPD with a question of community-acquired versus gram- negative pneumonia. 2blood and sputum culture currently pending did have procalcitonin 0.30 3-patient remains to be afebrile white count has normalized continue with Rocephin while waiting for the culture to finalize Dictation was produced using [employer] dictation software. please excuse any grammatical, word or spelling errors. Time with Patient: Less than 30
--- NOTE | 2024-03-26 16:48 | P.PN ---
Subjective Progress Note Date: 03/26/24 Principal diagnosis: Reason for follow-up is pneumonia Patient is a 63-year-old female with a past medical history significant for atrial fibrillation coronary artery disease hypertension hyperlipidemia osteomyelitis COPD on 2 L home O2, presenting [facility] the hospital [facility] the local [facility] for evaluation of increasing shortness of breath, patient did have a fever hypoxemia and evidence of right-sided infiltrate concerning for pneumonia. On today's evaluation that is 03/26/2024, Patient is afebrile this morning and denies any chills, patient mention breathing comfortably and is currently on 3 L current oxygen, patient denies any chest pain patient cough is decreased intensity less productive no nausea no pain no abdominal pain no diarrhea. No new lab has been repeated today sputum finalized with MSSA Objective - Vital Signs Vital signs: Vital Signs Temp 97.8 F 03/26/24 07:15 Pulse 92 03/26/24 09:45 Resp 17 03/26/24 07:15 BP 107/66 03/26/24 08:48 Pulse Ox 95 03/26/24 07:15 FiO2 Intake & Output 03/25/24 03/26/24 03/26/24 18:59 06:59 18:59 Weight 46.5 kg 46.5 kg Other: Voiding Method Diaper Diaper External Catheter # Voids 5 2 # Bowel Movements 3 1 - Exam GENERAL DESCRIPTION: An elderly female lying in bed in no distress RESPIRATORY SYSTEM: Unlabored breathing , decreased breath sounds at bases HEART: S1 S2 regular rate and rhythm , ABDOMEN: Soft , no tenderness EXTREMITIES: No edema feet - Labs CBC & Chem 7: 03/25/24 03:51 03/25/24 03:51 Labs: Microbiology - Last 24 Hours (Table) 03/22/24 15:27 Gram Stain - Final Sputum Sputum Culture - Final Staphylococcus aureus [place] albicans Assessment and Plan (1) Sepsis Current Visit: Yes Status: Acute Code(s): A41.9 - SEPSIS, UNSPECIFIED ORGANISM SNOMED Code(s): 25564151 (2) Pneumonia Current Visit: Yes Status: Acute Code(s): J18.9 - PNEUMONIA, UNSPECIFIED ORGANISM SNOMED Code(s): 771396638 Plan: 1patient presented to hospital with sepsis in this patient who did have a fever tachycardia hypotension elevated white count source likely pneumonia in this patient with underlying COPD with a question of community-acquired versus gram- negative pneumonia. 2blood and sputum culture currently pending did have procalcitonin 0.30 3-patient has shown clinical improvement. The patient's sputum has been finalized with MSSA has received about 5 days of IV Rocephin consider 57 days of oral Ceftin on discharge and close outpatient follow-up discussed with the admitting physician Dictation was produced using [employer] dictation software. please excuse any grammatical, word or spelling errors. Time with Patient: Less than 30
== END 2024-03-26 18:17 | DRG 871 ==
LOC: EC 08:51 → 3SCARD 10:18 → 4SSUR 03-22 10:53
PROVIDERS: ADMIT Hospitalist; ATTEND Hospitalist
PROC: 30233N1 Transfusion of Nonautologous Red Blood Cells into Peripheral Vein, Percutaneous Approach (ICD-10-PCS; principal; 2024-03-23)
DX: A41.01 Sepsis due to Methicillin susceptible Staphylococcus aureus (principal); B37.1 Pulmonary candidiasis; J15.211 Pneumonia due to Methicillin susceptible Staphylococcus aureus; J96.21 Acute and chronic respiratory failure with hypoxia; R64 Cachexia; I48.20 Chronic atrial fibrillation, unspecified; J44.0 Chronic obstructive pulmonary disease with (acute) lower respiratory infection; I69.351 Hemiplegia and hemiparesis following cerebral infarction affecting right dominant side; F11.20 Opioid dependence, uncomplicated; Z68.1 Body mass index [BMI] 19.9 or less, adult; G40.909 Epilepsy, unspecified, not intractable, without status epilepticus; Z99.81 Dependence on supplemental oxygen; I69.398 Other sequelae of cerebral infarction; I10 Essential (primary) hypertension; E78.5 Hyperlipidemia, unspecified; I25.10 Atherosclerotic heart disease of native coronary artery without angina pectoris; R25.2 Cramp and spasm; F17.210 Nicotine dependence, cigarettes, uncomplicated; D64.89 Other specified anemias; Y95 Nosocomial condition; Z79.01 Long term (current) use of anticoagulants; Z79.899 Other long term (current) drug therapy; Z79.51 Long term (current) use of inhaled steroids; Z11.52 Encounter for screening for COVID-19; Z88.1 Allergy status to other antibiotic agents; Z88.8 Allergy status to other drugs, medicaments and biological substances
CPT/HCPCS: 36415; 36430; 71045; 71046; 80053; 81003; 83605; 83880; 84145; 84484; 85025; 85610; 85730; 86850; 86900; 86901; 86920; 87040; 87070; 87077; 87186; 87205; 87449; 87636; 93005; 94640; 94760; 96361; 96365; 96366; 96367; 96375; 96376; 99285

== ENCOUNTER 2024-04-15 01:44 | Inpatient (IN) | payer MEDICARE, OTHER ==
[2024-04-15 02:10] LABS: Anisocytosis Slight; Basophils # (A) 0.1 k/uL (0-0.2); Basophils % (A) 1 %; Eosinophils # (A) 0.1 k/uL (0-0.7); Eosinophils % (A) 2 %; HCT 37.5 % (34.0-46.0); HGB 11.9 gm/dL (11.4-16.0); Lymphocytes # (A) 2.6 k/uL (1.0-4.8); Lymphocytes % (A) 30 %; MCH 25.1 pg (25.0-35.0); MCHC 31.7 g/dL (31.0-37.0); Mean Platelet Volume 6.8; Microcytosis Slight; Monocytes # (A) 0.6 k/uL (0-1.0); Monocytes % (A) 7 %; Neutrophils % (A) 59 %; Platelet Count 448 k/uL (150-450); RBC 4.74 m/uL (3.80-5.40); WBC 8.5 k/uL (3.8-10.6)
[2024-04-15 02:26] LABS: ALT 12 U/L (4-34); AST 22 U/L (14-36); African American GFR (CKD) >90 (>60 ml/min/1.73 sqM); Albumin 3.8 g/dL (3.5-5.0); Alkaline Phosphatase 130 U/L (38-126); Anion Gap 9 mmol/L; Blood Urea Nitrogen 9 mg/dL (7-17); Calcium 9.2 mg/dL (8.4-10.2); Carbon Dioxide 29 mmol/L (22-30); Chloride 94 mmol/L (98-107); Glucose 142 mg/dL (74-99); Magnesium 1.7 mg/dL (1.6-2.3); Non-African American GFR(CKD) >90 (>60 ml/min/1.73 sqM); Potassium 3.8 mmol/L (3.5-5.1); Sodium 132 mmol/L (137-145); Total Bilirubin 0.8 mg/dL (0.2-1.3); Total Protein 7.4 g/dL (6.3-8.2)
[2024-04-15 02:29] LABS: INR 0.9 (<1.2); Partial Thromboplastin Time 26.2 sec (22.0-30.0); Prothrombin Time 10.5 sec (10.0-12.5)
[2024-04-15 02:35] LABS: NT-Pro-B-Type Natriuretic Pept 1650 pg/mL
[2024-04-15] MEDS: HYDROmorphone 1 MG/ML 1 ML SYRINGE IVP STA (02:47)
[2024-04-15] MEDS: SODIUM CHLORIDE 0.9% 1,000 ML IV ONE (04:13)
--- NOTE | 2024-04-15 04:57 | XR ---
EXAM: XR Chest, 2 Views CLINICAL HISTORY: ITS.REASON XR Reason: Weakness TECHNIQUE: Frontal and lateral views of the chest. COMPARISON: XR Chest dated 03/26/2024 FINDINGS: Lungs: Hyperinflation of the lungs. Query right upper lobe opacity versus overlapping structures. More conspicuous than on the prior. Consider follow-up. Pleural space: Unremarkable. No pneumothorax. Heart: Unremarkable. No cardiomegaly. Mediastinum: Unremarkable. Normal mediastinal contour. Bones/joints: Mid thoracic compression deformity, age indeterminate. Other findings: Patient is rotated to the right. IMPRESSION: 1. Hyperinflation of the lungs. May represent COPD. 2. Query right upper lobe opacity versus overlapping structures. More conspicuous than on the prior. Consider follow-up CT. 3. Mid thoracic compression deformity, age indeterminate.
[2024-04-15 05:36] LABS: Appearance,Urine Clear (Clear); Bilirubin,Urine Negative (Negative); Blood,Urine Negative (Negative); Color,Urine Colorless; Glucose,Urine (UA) Negative (Negative); Ketones,Urine Negative (Negative); Leukocyte Esterase,Urine Negative (Negative); Nitrite,Urine Negative (Negative); Protein,Urine Negative (Negative); Specific Gravity,Urine 1.002 (1.001-1.035); Urobilinogen,Urine <2.0 mg/dL (<2.0)
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
[2024-04-15] MEDS ORDERED: NALOXONE 0.4 MG/ML 1 ML VIAL IV PRN (06:01)
[2024-04-15] MEDS: SODIUM CHLORIDE 0.9% 1,000 ML IV SCH (06:52)
[2024-04-15] MEDS: ACETAMINOPHEN TAB 325 MG TAB PO PRN (10:28)
[2024-04-15] MEDS: KETOROLAC 15 MG/ML 1 ML VIAL IVP SCH (11:49)
[2024-04-15] MEDS ORDERED: methocarbamoL 500 MG TAB PO PRN (13:51)
[2024-04-15] MEDS ORDERED: ALBUTEROL HFA INHALER INHALATION PRN (13:53)
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
[2024-04-15] MEDS ORDERED: [UNRECOGNIZED DRUG - OTHER] SUBLINGUAL SCH (14:15)
[2024-04-15] MEDS: METOPROLOL SUCCINATE (ER) 50 MG TAB.ER.24H PO SCH (14:34)
[2024-04-15] MEDS: PANTOPRAZOLE 40 MG TABLET PO SCH (14:34)
[2024-04-15] MEDS: FAMOTIDINE 20 MG TAB PO SCH (14:34)
[2024-04-15] MEDS: levETIRAcetam 500 MG TAB PO SCH (14:34)
[2024-04-15] MEDS: BUPRENORPHINE-NALOX 8-2 MG TAB 1 EACH TAB.SUBL SL SCH (15:08)
[2024-04-15] MEDS: GABAPENTIN 300 MG CAP PO SCH (15:09)
[2024-04-15] MEDS: IPRATROPIUM 0.5 MG/2.5 ML NEBU INHALATION SCH (19:43)
[2024-04-15] MEDS: QUEtiapine 400 MG TAB PO SCH (21:14)
[2024-04-16 06:56] LABS: African American GFR (CKD) >90 (>60 ml/min/1.73 sqM); Anion Gap -1 mmol/L; Blood Urea Nitrogen 13 mg/dL (7-17); Calcium 7.8 mg/dL (8.4-10.2); Carbon Dioxide 29 mmol/L (22-30); Chloride 107 mmol/L (98-107); Glucose 75 mg/dL (74-99); Non-African American GFR(CKD) >90 (>60 ml/min/1.73 sqM); Sodium 135 mmol/L (137-145)
[2024-04-16] MEDS ORDERED: NON FORMULARY DRUG (Umeclidinium Brm/Vilanterol Tr [Anoro Ellipta 62.5-25 Mcg Inh] 1 EACH INHALATION SCH (08:00)
[2024-04-16] MEDS ORDERED: BUPRENORPHINE PO SCH (09:00)
[2024-04-16] MEDS ORDERED: NALOXONE PO SCH (09:00)
[2024-04-16] MEDS: RIVAROXABAN 20 MG TAB PO SCH (09:13)
[2024-04-16 09:24] LABS: Anisocytosis Slight; Basophils % (A) 1 %; Eosinophils # (A) 0.2 k/uL (0-0.7); Eosinophils % (A) 3 %; HCT 29.3 % (34.0-46.0); Hypochromasia Slight; Lymphocytes % (A) 28 %; MCH 25.2 pg (25.0-35.0); MCHC 30.8 g/dL (31.0-37.0); MCV 81.9 fL (80.0-100.0); Mean Platelet Volume 6.8; Monocytes # (A) 0.5 k/uL (0-1.0); Monocytes % (A) 7 %; Neutrophils # (A) 4.3 k/uL (1.3-7.7); Neutrophils % (A) 59 %; Platelet Count 355 k/uL (150-450); RBC 3.58 m/uL (3.80-5.40); RDW 17.5 % (11.5-15.5); WBC 7.3 k/uL (3.8-10.6)
[2024-04-16] MEDS: FORMOTEROL FUMARATE 20 MCG/2 ML NEBU INHALATION SCH (09:36)
--- NOTE | 2024-04-16 14:44 | P.PN ---
Subjective April 16, 2024 Patient serum sodium improved with IV fluids patient was continued on IV fluids. Physical therapy Occupational Therapy evaluate the patient and they are recommending subacute rehab. Awaiting insurance authorization. Patient also believes she is having Crohn's exacerbation as she started having diarrhea patient was started on Solu-Medrol will obtain ESR and CRP. April 15, 2024 Patient came with complaints of generalized weakness unable to take care of herself at home patient lives at home with nephew who helps with her ADLs at home. Patient was having significant spasms as per the patient is requesting pain medication patient does have history of polysubstance abuse in the past and known to ask for pain medication patient does not localize pain to anywhere she states that she has pain everywhere and spasms everywhere. Patient any fever chills nausea vomiting dysuria. Physical therapy Occupational Therapy were consulted and patient may need subacute rehabilitation. REVIEW OF SYSTEMS: All other systems are negative except those mentioned in the HPI PHYSICAL EXAMINATION: GENERAL: The patient is alert and oriented x3, not in any acute distress. Thin built female HEENT: Pupils are round and equally reacting to light. EOMI. No scleral icterus. No conjunctival pallor. Normocephalic, atraumatic. No pharyngeal erythema. No thyromegaly. CARDIOVASCULAR: S1 and S2 present. No murmurs, rubs, or gallops. PULMONARY: Chest is clear to auscultation, no wheezing or crackles. ABDOMEN: Soft, nontender, nondistended, normoactive bowel sounds. No palpable organomegaly. MUSCULOSKELETAL: No joint swelling or deformity. EXTREMITIES: No cyanosis, clubbing, or pedal edema. NEUROLOGICAL: Gross neurological examination did not reveal any focal deficits. SKIN: No rashes. Assessment and plan -Generalized weakness and deconditioning secondary to previous polysubstance abuse polypharmacy and age physical therapy Occupational Therapy evaluation. -Complaints of diarrhea will monitor if she continues to have diarrhea will obtain C. difficile ESR and CRP will be obtained patient will be empirically started on systemic steroids for possible Crohn's exacerbation -Generalized body aches and pain: Patient's complaints part of opiate seeking behavior avoid any opiates for pain patient is already on Suboxone which will be resumed. Patient also will be started on Toradol along with Pepcid and Protonix and Robaxin for spasms. -Paroxysmal atrial fibrillation presently rate controlled resume home medications along with Xarelto -Coronary disease -COPD without any acute exacerbation patient has chronic respiratory failure uses 2 L of oxygen which we will continue -Gastroesophageal flux disease -Hypertension -Seizure disorder -Moderate protein calorie malnutrition will benefit from Ensure if patient is interested -Patient has a lung nodule that is being followed by Dr. Cortez pulmonology DVT prophylaxis: Patient is already on anticoagulation Objective - Vital Signs Vital signs: Vital Signs Temp 98.1 F 04/16/24 14:23 Pulse 64 04/16/24 14:23 Resp 16 04/16/24 14:23 BP 102/58 04/16/24 14:23 Pulse Ox 98 04/16/24 14:23 FiO2 Intake & Output 04/15/24 04/16/24 04/16/24 18:59 06:59 18:59 Intake Total 950 Output Total 100 300 Balance -100 650 Weight 45.359 kg Intake: Oral 950 Output: Urine 100 300 Other: Voiding Method Incontinent External Catheter External Catheter - Labs CBC & Chem 7: 04/16/24 08:43 04/16/24 05:46 Labs: Abnormal Lab Results - Last 24 Hours (Table) 04/16/24 04/16/24 Range/Units 05:46 08:43 RBC 3.58 L (3.80-5.40) m/uL Hgb 9.0 L D (11.4-16.0) gm/dL Hct 29.3 L (34.0-46.0) % MCHC 30.8 L (31.0-37.0) g/dL RDW 17.5 H (11.5-15.5) % Sodium 135 L (137-145) mmol/L Calcium 7.8 L (8.4-10.2) mg/dL
[2024-04-16 15:00] VITALS: BMI 15.2
[2024-04-16] MEDS: methylPREDNISolone SOD SUCCI 40 MG/ML 1 ML VIAL IV SCH (16:46)
[2024-04-17 08:10] VITALS: RESP 16
[2024-04-17 13:57] LABS: Glucose,Whole Blood 171 mg/dL (70-110)
[2024-04-17 14:00] VITALS: BP 122/69; PULSE 91; TEMP 99.1
--- NOTE | 2024-04-17 14:11 | CDI ---
Documentation Clarification Form Date: 04/17/2024 01:41:33 PM From: Aisha Tubbs RN CCDS Phone: [phone] Admit Date: 04/16/2024 01:35:00 PM Patient Name: Fabiola Giraldo Visit Number: [id number] Discharge Date: ATTENTION: The Clinical Documentation Specialists (CDI) and [facility] Coding Staff appreciate your assistance in clarifying documentation. Please respond to the clarification below the line at the bottom and electronically sign. The CDI & [facility] Coding staff will review the response and follow-up if needed. Please note: Queries are made part of the Legal Health Record. If you have any questions, please contact the author of this message via ITS. Ninoska Dawn NP Conflicting documentation has been found in the medical record. As attending physician, please provide clarification. Chronic Severe Malnutrition, 04/16 Nutritional Consult Moderate protein calorie malnutrition, 04/15, HP History/Risk Factors: 64-year-old female presents to the ED via EMS for abdominal pain, generalized body aches and pain. Recently discharged from rehab for bacterial pneumonia. Medical History: Seizure disorder, CVA, Polysubstance abuse, polypharmacy on Suboxone, PAfib, COPD, chronic respiratory failure and HTN. 04/15, HP Clinical Indicators: Nutritional Assessment: BMI 15.2 Hgt 5ft 8inc Wgt 45.359kg. Usual weight 68.039kg. % Usual body weight 67%. Weight loss 907.185g. Weight change Decreased intake . duration one year. Appetite Poor, duration greater than 6 months. Nutritional intake fair 50-75% consumed heart healthy diet 50% x 1 meal. Nutritional concerns underfeeding. Physical findings: Underweight skin intact, no wounds. Nutritional diagnosis: Chronic severe malnutrition related to diminished appetite. Evidenced by: >20% weight loss in one year <75% of EEN consumed in >1 month. Patient admitted in March, lost 2lbs since then. Patient stated appetite comes and goes. Estimated needs in Kcals. 25 -30Kcals/kg Nutritional needs Energy needs 1124- 1350kg Estimated needs Protein 1.2 1.5 grams/kg, Estimated protein need 54-67 grams/day Increased needs for weight gain. Estimated fluid 1m. /kcal Estimated fluid needs 9090-0394 mls/day Treatment: Ensure enlive TID, General healthful diet, Monitor po intake, Monitor supplement intake, Nutritional education. Please clarify which diagnosis is most appropriate: [ x ] Chronic Severe protein calorie malnutrition [ ] Moderate protein calorie malnutrition [ ] Other (please specify) [ ] Unable to determine (Template Last Revised: December 2020) MTDD
--- NOTE | 2024-04-17 15:44 | P.DS ---
Providers Date of admission: 04/16/24 13:35 Attending physician: Buddy Walker Primary care physician[facility] Course: Final Diagnosis -Generalized weakness and deconditioning secondary to previous polysubstance abuse polypharmacy and age physical therapy Occupational Therapy evaluation. -Complaints of diarrhea will monitor if she continues to have diarrhea will obtain C. difficile ESR and CRP will be obtained patient will be empirically started on systemic steroids for possible Crohn's exacerbation -Generalized body aches and pain: Patient's complaints part of opiate seeking behavior avoid any opiates for pain patient is already on Suboxone which will be resumed. Patient also will be started on Toradol along with Pepcid and Protonix and Robaxin for spasms. -Paroxysmal atrial fibrillation presently rate controlled resume home m edications along with Xarelto -Coronary disease -COPD without any acute exacerbation patient has chronic respiratory failure uses 2 L of oxygen which we will continue -Gastroesophageal flux disease -Hypertension -Seizure disorder -Chronic Severe protein calorie malnutrition will benefit from Ensure if patient is interested -Patient has a lung nodule that is being followed by Dr. Cortez pulmonology Discharge Disposition Patient left AMA. Hospital Course Patient came with complaints of generalized weakness unable to take care of herself at home patient lives at home with nephew who helps with her ADLs at home. Patient was having significant spasms as per the patient is requesting pain medication patient does have history of polysubstance abuse in the past and known to ask for pain medication patient does not localize pain to anywhere she states that she has pain everywhere and spasms everywhere. Patient any fever chills nausea vomiting dysuria. Physical therapy Occupational Therapy were consulted and patient may need subacute rehabilitation. Patient serum sodium improved with IV fluids patient was continued on IV fluids. Physical therapy Occupational Therapy evaluate the patient and they are recommending subacute rehab. Awaiting insurance authorization. Patient also believes she is having Crohn's exacerbation as she started having diarrhea patient was started on Solu- Medrol will obtain ESR and CRP. Inflammatory markers were within normal limits. Did discuss with patient that if she is able to discharge to subacute rehab today she will be discharged on a course of oral steroids twice a day for the next week to 10 days and recommend to follow-up with Dr. Jack Younger in the office who is her usual GI specialist. Patient was agreeing with discharge to subacute rehab while the provider was in the room. Apparently on follow-up later on this afternoon patient stated that she did not want to be discharged today and was tearful and crying and decided to leave the hospital AGAINST MEDICAL ADVICE. Patient walked out. Please see medication reconciliation for a list of current medications. Thank you for allowing us to participate in the care of this patient. The impression and plan of care has been dictated by Ninoska Dawn, Nurse Practitioner as directed. Dr. Antonette MD I have performed a history and physical examination and medical decision making of this patient, discussed the same with the dictator, and agree with the dictators assessment and plan as written, documented as a scribe. Based on total visit time, I have performed more than 50% of this visit. Plan - Discharge Summary New Discharge Prescriptions: No Action Fluticasone Nasal [place] [Flonase Nasal [place]] 1 spr EA NOSTRIL DAILY PRN PRN Reason: Allergy Symptoms levETIRAcetam [Keppra] 1,000 mg PO BID Metoprolol Succinate (ER) [Toprol XL] 50 mg PO DAILY Rivaroxaban [Xarelto] 20 mg PO DAILY Buprenorphine/Naloxone 8Mg/2Mg [Suboxone 8-2Mg Film] 1 film SL DAILY QUEtiapine [SEROquel] 400 mg PO HS Umeclidinium Brm/Vilanterol Tr [Anoro Ellipta 62.5-25 Mcg INH] 1 puff INHA LATION RT-DAILY Albuterol Sulfate [Albuterol Sulfate Hfa] 2 puff INHALATION RT-Q6H PRN #1 each PRN Reason: Shortness Of Breath Pantoprazole [Protonix] 40 mg PO DAILY Gabapentin [Neurontin] 300 mg PO BID Glycopyrrolate/Formoterol Fum [Bevespi Aerosphere Inhaler] 1 puff INHALATION RT-DAILY Discharge Medication List Fluticasone Nasal [place] [Flonase Nasal [place]] 1 spr EA NOSTRIL DAILY PRN 03/27/20 [History] Albuterol Sulfate [Albuterol Sulfate Hfa] 2 puff INHALATION RT-Q6H PRN #1 each 10/04/22 [Rx] levETIRAcetam [Keppra] 1,000 mg PO BID 03/20/23 [History] Metoprolol Succinate (ER) [Toprol XL] 50 mg PO DAILY 06/21/23 [History] Rivaroxaban [Xarelto] 20 mg PO DAILY 06/21/23 [History] Buprenorphine/Naloxone 8Mg/2Mg [Suboxone 8-2Mg Film] 1 film SL DAILY 03/05/24 [History] Pantoprazole [Protonix] 40 mg PO DAILY 03/21/24 [History] QUEtiapine [SEROquel] 400 mg PO HS 03/21/24 [History] Umeclidinium Brm/Vilanterol Tr [Anoro Ellipta 62.5-25 Mcg INH] 1 puff INHALATION RT-DAILY 03/21/24 [History] Gabapentin [Neurontin] 300 mg PO BID 04/15/24 [History] Glycopyrrolate/Formoterol Fum [Bevespi Aerosphere Inhaler] 1 puff INHALATION RT- DAILY 04/15/24 [History] Follow up Appointment(s)/Referral(s): Daksha Steiner MD [Primary Care Provider] - 1-2 days Discharge Disposition: LEFT AGAINST MEDICAL ADVICE
== END 2024-04-17 15:26 | disposition left against medical advice (07) | DRG 385 ==
LOC: EC 01:44 → 3SCARD 06:02 → 6NMEDSUR 07:42 → OBSVTOIN 04-16 13:35
PROVIDERS: ADMIT Hospitalist; ATTEND Hospitalist
DX: K50.90 Crohn's disease, unspecified, without complications (principal); E43 Unspecified severe protein-calorie malnutrition; Z68.1 Body mass index [BMI] 19.9 or less, adult; E87.1 Hypo-osmolality and hyponatremia; I48.0 Paroxysmal atrial fibrillation; Z76.5 Malingerer [conscious simulation]; F31.9 Bipolar disorder, unspecified; F41.9 Anxiety disorder, unspecified; J44.9 Chronic obstructive pulmonary disease, unspecified; I25.10 Atherosclerotic heart disease of native coronary artery without angina pectoris; K21.9 Gastro-esophageal reflux disease without esophagitis; R91.1 Solitary pulmonary nodule; G40.909 Epilepsy, unspecified, not intractable, without status epilepticus; Z79.891 Long term (current) use of opiate analgesic; Z79.01 Long term (current) use of anticoagulants; Z28.9 Immunization not carried out for unspecified reason; F19.11 Other psychoactive substance abuse, in remission; E78.5 Hyperlipidemia, unspecified; E86.1 Hypovolemia; F17.200 Nicotine dependence, unspecified, uncomplicated; G89.29 Other chronic pain; M79.605 Pain in left leg; M79.604 Pain in right leg; R26.2 Difficulty in walking, not elsewhere classified; Z79.899 Other long term (current) drug therapy; Z86.73 Personal history of transient ischemic attack (TIA), and cerebral infarction without residual deficits; Z87.01 Personal history of pneumonia (recurrent); M19.90 Unspecified osteoarthritis, unspecified site
CPT/HCPCS: 36415; 71046; 80048; 80053; 81003; 83605; 83735; 83880; 84484; 85025; 85610; 85652; 85730; 86140; 93005; 94640; 94760; 96361; 96374; 96375; 96376; 99285

== ENCOUNTER 2024-04-18 12:26 | Observation (INO) | payer MEDICARE, OTHER ==
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
[2024-04-18] MEDS: ONDANSETRON 4 MG/2 ML VIAL IVP STA (13:46)
[2024-04-18] MEDS: MORPHINE SULFATE 4 MG/ML SYRINGE IV STA (13:46)
[2024-04-18] MEDS: SODIUM CHLORIDE 0.9% 1,000 ML IV STA (13:48)
[2024-04-18 14:08] LABS: ALT 8 U/L (4-34); AST 18 U/L (14-36); African American GFR (CKD) >90 (>60 ml/min/1.73 sqM); Albumin 2.6 g/dL (3.5-5.0); Alkaline Phosphatase 68 U/L (38-126); Anion Gap 2 mmol/L; Blood Urea Nitrogen 14 mg/dL (7-17); Calcium 8.2 mg/dL (8.4-10.2); Carbon Dioxide 32 mmol/L (22-30); Chloride 97 mmol/L (98-107); Glucose 129 mg/dL (74-99); Magnesium 1.2 mg/dL (1.6-2.3); Non-African American GFR(CKD) >90 (>60 ml/min/1.73 sqM); Partial Thromboplastin Time 29.5 sec (22.0-30.0); Potassium 4.2 mmol/L (3.5-5.1); Prothrombin Time 10.9 sec (10.0-12.5); Sodium 131 mmol/L (137-145); Total Bilirubin 0.5 mg/dL (0.2-1.3); Total Protein 5.4 g/dL (6.3-8.2)
[2024-04-18 14:10] LABS: Anisocytosis Slight; Basophils % (A) 0 %; Eosinophils # (A) 0.2 k/uL (0-0.7); Eosinophils % (A) 2 %; HCT 30.5 % (34.0-46.0); HGB 9.4 gm/dL (11.4-16.0); Hypochromasia Slight; Lymphocytes # (A) 1.3 k/uL (1.0-4.8); Lymphocytes % (A) 12 %; MCH 25.2 pg (25.0-35.0); MCHC 30.9 g/dL (31.0-37.0); MCV 81.8 fL (80.0-100.0); Mean Platelet Volume 7.2; Monocytes # (A) 0.8 k/uL (0-1.0); Monocytes % (A) 7 %; Neutrophils # (A) 8.8 k/uL (1.3-7.7); Neutrophils % (A) 79 %; Platelet Count 313 k/uL (150-450); RBC 3.72 m/uL (3.80-5.40); RDW 17.7 % (11.5-15.5); WBC 11.2 k/uL (3.8-10.6)
[2024-04-18 14:17] LABS: NT-Pro-B-Type Natriuretic Pept 1120 pg/mL
[2024-04-18] MEDS ORDERED: NALOXONE 0.4 MG/ML 1 ML VIAL IV PRN (16:46)
[2024-04-18] MEDS ORDERED: MORPHINE SULFATE 4 MG/ML SYRINGE IV PRN (16:46)
[2024-04-18] MEDS ORDERED: ONDANSETRON 4 MG/2 ML VIAL IVP PRN (16:46)
[2024-04-18 19:18] LABS: Appearance,Urine Cloudy (Clear); Bacteria,Urine Occasional /hpf; Bilirubin,Urine Negative (Negative); Blood,Urine Moderate (Negative); Color,Urine Colorless; Glucose,Urine (UA) Negative (Negative); Ketones,Urine Negative (Negative); Leukocyte Esterase,Urine Large (Negative); Mucus,Urine Rare /hpf; Nitrite,Urine Negative (Negative); PH, Urine 5.5 (5.0-8.0); Protein,Urine Negative (Negative); RBC,Urine 4 /hpf (0-5); Specific Gravity,Urine 1.012 (1.001-1.035); Squamous Epithelial Cell,Urine 1 /hpf (0-4); Urobilinogen,Urine <2.0 mg/dL (<2.0); WBC,Urine 12 /hpf (0-5)
[2024-04-18] MEDS: SODIUM CHLORIDE 0.9% 1,000 ML IV SCH (20:37)
[2024-04-19] MEDS ORDERED: Magnesium Replacement Protocol 1 EACH MISC MISCELLANE PRN (08:15)
[2024-04-19] MEDS ORDERED: ALBUTEROL HFA INHALER INHALATION PRN (08:16)
[2024-04-19] MEDS ORDERED: FLUTICASONE NASAL 50MCG/SPRAY 16GM BTL EA NOSTRIL PRN (08:16)
[2024-04-19] MEDS ORDERED: PANTOPRAZOLE 40 MG/10 ML VIAL IV SCH (09:00)
[2024-04-19] MEDS: GABAPENTIN 300 MG CAP PO SCH (09:22)
[2024-04-19] MEDS: levETIRAcetam 500 MG TAB PO SCH (09:22)
[2024-04-19] MEDS: METOPROLOL SUCCINATE (ER) 50 MG TAB.ER.24H PO SCH (09:22)
[2024-04-19] MEDS: PANTOPRAZOLE 40 MG TABLET PO SCH (09:22)
[2024-04-19] MEDS: RIVAROXABAN 20 MG TAB PO SCH (09:22)
[2024-04-19] MEDS: MAGNESIUM SULFATE-D5W PMX 1 GM in DEXTROSE/WATER 1 100ML.BAG IVPB SCH (09:23)
[2024-04-19 09:38] LABS: Basophils # (A) 0.03 X 10*3/uL (0.00-0.10); Basophils % (A) 0.3 %; Eosinophils # (A) 0.38 X 10*3/uL (0.04-0.35); Eosinophils % (A) 4.1 %; HCT 24.9 % (37.2-46.3); HGB 7.8 g/dL (12.0-15.0); Lymphocytes # (A) 2.33 X 10*3/uL (0.90-5.00); Lymphocytes % (A) 24.9 %; MCH 25.7 pg (27.0-32.0); MCHC 31.3 g/dL (32.0-37.0); MCV 82.2 FL (80.0-97.0); Mean Platelet Volume 9.4 FL (9.5-12.2); Monocytes # (A) 0.89 X 10*3/uL (0.20-1.00); Monocytes % (A) 9.5 %; NRBC Per 100 WBC 0 X 10*3/uL (0.00-0.01); Neutrophils # (A) 5.71 X 10*3/uL (1.80-7.70); Neutrophils % (A) 60.9 %; Platelet Count 307 X 10*3/uL (140-440); RBC 3.03 X 10*6/uL (4.10-5.20); RDW 18.2 % (11.5-14.5); WBC 9.37 X 10*3/uL (4.50-10.00)
[2024-04-19 09:54] LABS: ALT 6 U/L (8-44); AST 12 U/L (13-35); Albumin 2.5 g/dL (3.8-4.9); Albumin/Globulin Ratio 1.14 Ratio (1.60-3.17); Alkaline Phosphatase 68 U/L (41-126); BUN/Creat Ratio 28.67 Ratio (12.00-20.00); Blood Urea Nitrogen 8.6 mg/dL (9.0-27.0); Calcium 7.6 mg/dL (8.7-10.3); Carbon Dioxide 28.1 mmol/L (21.6-31.8); Chloride 99 mmol/L (96-109); Globulin 2.2 g/dL (1.6-3.3); Glucose 81 mg/dL (70-110); Magnesium 1.1 mg/dL (1.5-2.4); Phosphorus 3.2 mg/dL (2.4-5.1); Potassium 3.8 mmol/L (3.5-5.5); Sodium 136 mmol/L (135-145); Total Bilirubin 0.3 mg/dL (0.3-1.2); Total Protein 4.7 g/dL (6.2-8.2)
[2024-04-19] MEDS: ACETAMINOPHEN TAB 325 MG TAB PO PRN (10:32)
[2024-04-19] MEDS: KETOROLAC 15 MG/ML 1 ML VIAL IVP PRN (10:57)
--- NOTE | 2024-04-19 13:28 | XR ---
EXAMINATION TYPE: XR chest 2V DATE OF EXAM: 04/19/2024 COMPARISON: 04/15/2024 HISTORY: Shortness of breath TECHNIQUE: Frontal and lateral views of the chest are obtained. FINDINGS: Scattered senescent parenchymal changes noted. Hyperinflation compatible with COPD. No evidence for infiltrate. No evidence for atelectasis. Heart size is stable. Mediastinal structures are stable and grossly unremarkable. No evidence for hilar prominence. Degenerative changes dorsal spine. IMPRESSION: 1. No evidence for acute pulmonary disease.
[2024-04-19] MEDS ORDERED: methocarbamoL 500 MG TAB PO PRN (17:16)
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
[2024-04-19] MEDS: NON FORMULARY DRUG (Buprenorphine/Naloxone 8mg/2mg 1 EACH Film) SUBLINGUAL SCH (17:29)
[2024-04-19] MEDS: QUEtiapine 400 MG TAB PO SCH (21:01)
[2024-04-20 07:23] VITALS: TEMP 98.6
[2024-04-20] MEDS: FORMOTEROL FUMARATE 20 MCG/2 ML NEBU INHALATION SCH (07:46)
[2024-04-20] MEDS: IPRATROPIUM 0.5 MG/2.5 ML NEBU INHALATION SCH (07:46)
[2024-04-20] MEDS ORDERED: NON FORMULARY DRUG (Umeclidinium Brm/Vilanterol Tr [Anoro Ellipta 62.5-25 Mcg Inh] 1 EACH INHALATION SCH (08:00)
[2024-04-20 10:03] VITALS: BP 121/63; PULSE 84; RESP 16
[2024-04-20] MEDS: BUPRENORPHINE-NALOX 8-2 MG TAB 1 EACH TAB.SUBL SL SCH (10:03)
[2024-04-20 12:13] VITALS: BMI 18.2
[2024-04-20] MEDS: busPIRone HCl 5 MG TAB PO SCH (12:21)
--- NOTE | 2024-04-20 12:29 | P.DS ---
Providers Date of admission: 04/18/24 16:47 Attending physician: Buddy Walker Primary care [facility] Course: Final Diagnosis -Generalized weakness and deconditioning secondary to previous polysubstance abuse polypharmacy and age physical therapy Occupational Therapy evaluation. -Complaints of diarrhea, fever chills possible viral illness will be swabbed for covid, flu and influenza. Will check a procalcitonin level. -Generalized body aches and pain: Patient's complaints part of opiate seeking behavior avoid any opiates for pain patient is already on Suboxone which will be resumed. Patient also will be started on Toradol along with Protonix and Robaxin for spasms. -Paroxysmal atrial fibrillation presently rate controlled on Xarelto -Coronary artery disease -COPD without any acute exacerbation patient has chronic respiratory failure uses 2 L of oxygen which we will continue -Gastroesophageal flux disease -Hypertension -Seizure disorder -Chronic Severe protein calorie malnutrition will benefit from Ensure if patient is interested -Patient has a lung nodule that is being followed by Dr. Cortez pulmonology -Anxiety will be started on BuSpar and recommended follow-up outpatient with [facility] Patient has history of BiPolar depression she is on Seroquel -History Crohn's disease Discharge Disposition Stable for discharge to subacute rehab. And has had multiple readmissions secondary to inability to care for herself at home as well as pain and muscle aches. Patient will discharge on her Suboxone as well as Robaxin for muscle spasms. We recommend to avoid narcotic use. Patient is also given BuSpar for anxiety and recommending to follow-up with [facility] for additional recommendations and follow-up. BMP and CBC outpatient. Hospital Course This is a 64-year-old female with medical history significant for atrial fibrillation anticoagulated with Xarelto, COPD, coronary artery disease, reflux disease, hypertension, seizure disorder, protein calorie malnutrition and lung nodule, patient presents from home secondary to weakness shortness of breath and muscle aches. Patient was admitted to the hospital a couple days ago and decided to leave AGAINST MEDICAL ADVICE as she did not want to discharge to subacute rehab. At this point patient does live at home with her nephews and having issues taking care of herself with weakness. Patient has history of polysubstance abuse in the past but does not take any pain medication at home. Patient is not able to localize her pain or muscle aches or she just states that her entire body hurts and she has spasms everywhere. Patient requesting IV Dilaudid and IV morphine. Patient also admits to fever and chills as well as shortness of breath and episodes of diarrhea. She was treated with IV steroids for a possible Crohn's exacerbation her prior admission however ESR and CRP were found to be within normal limits. Patient has not been febrile this admission and her white blood cell count is within normal limits. She is admitted to the hospital in observation for the weakness and will need to be seen by physical therapy and Occupational Therapy. PT OT recommending subacute rehab. Patient's viral testing was negative for COVID RSV and influenza. Procalcitonin level is within normal limits at 0.09. Patient was monitored with supportive care she was given IV fluids and her sodium has improved as well as her magnesium which is now 1.7. Patient continues to report intermittent shortness of breath her lungs are clear her chest x-ray is nondiagnostic and this appears to be her baseline and she is maintained on 2 L of oxygen. Patient is on an albuterol inhaler as needed her chest x-ray did show underlying COPD and was also continued on Anora Ellipta on an outpatient basis. She follows up with Dr. Zamorano for pulmonary services and we would recommend a follow-up on discharge. Patient is alert and oriented x 3. She reports a fair appetite tolerating diet she has chronically loose stool secondary to her underlying diagnosis of Crohn's. Patient will be discharged to subacute rehab today. Please see medication reconciliation for a list of current medications. Thank you for allowing us to participate in the care of this patient. The impression and plan of care has been dictated by Ninoska Dawn, Nurse Practitioner as directed. Dr. Antonette MD I have performed a history and physical examination and medical decision making of this patient, discussed the same with the dictator, and agree with the dictators assessment and plan as written, documented as a scribe. Based on total visit time, I have performed more than 50% of this visit. Patient Condition at Discharge: Fair Plan - Discharge Summary Discharge Rx Participant: No New Discharge Prescriptions: New busPIRone HCl [Buspar] 5 mg PO BID tab methocarbamoL [Robaxin] 500 mg PO QID PRN tab PRN Reason: Muscle Spasm Acetaminophen Tab [Tylenol] 650 mg PO Q6HR PRN tab PRN Reason: Fever And/ Or Pain Continue Fluticasone Nasal [place] [Flonase Nasal [place]] 1 spr EA NOSTRIL DAILY PRN PRN Reason: Allergy Symptoms levETIRAcetam [Keppra] 1,000 mg PO BID Metoprolol Succinate (ER) [Toprol XL] 50 mg PO DAILY Rivaroxaban [Xarelto] 20 mg PO DAILY Buprenorphine/Naloxone 8Mg/2Mg [Suboxone 8-2Mg Film] 1 film SL DAILY QUEtiapine [SEROquel] 400 mg PO HS Umeclidinium Brm/Vilanterol Tr [Anoro Ellipta 62.5-25 Mcg INH] 1 puff INHALATION RT-DAILY Albuterol Sulfate [Albuterol Sulfate Hfa] 2 puff INHALATION RT-Q6H PRN #1 each PRN Reason: Shortness Of Breath Pantoprazole [Protonix] 40 mg PO DAILY Gabapentin [Neurontin] 300 mg PO BID Glycopyrrolate/Formoterol Fum [Bevespi Aerosphere Inhaler] 1 puff INHALATION RT-DAILY Discharge Medication List Fluticasone Nasal [place] [Flonase Nasal [place]] 1 spr EA NOSTRIL DAILY PRN 03/27/20 [History] Albuterol Sulfate [Albuterol Sulfate Hfa] 2 puff INHALATION RT-Q6H PRN #1 each 10/04/22 [Rx] levETIRAcetam [Keppra] 1,000 mg PO BID 03/20/23 [History] Metoprolol Succinate (ER) [Toprol XL] 50 mg PO DAILY 06/21/23 [History] Rivaroxaban [Xarelto] 20 mg PO DAILY 06/21/23 [History] Buprenorphine/Naloxone 8Mg/2Mg [Suboxone 8-2Mg Film] 1 film SL DAILY 03/05/24 [History] Pantoprazole [Protonix] 40 mg PO DAILY 03/21/24 [History] QUEtiapine [SEROquel] 400 mg PO HS 03/21/24 [History] Umeclidinium Brm/Vilanterol Tr [Anoro Ellipta 62.5-25 Mcg INH] 1 puff INHALATION RT-DAILY 03/21/24 [History] Gabapentin [Neurontin] 300 mg PO BID 04/15/24 [History] Glycopyrrolate/Formoterol Fum [Bevespi Aerosphere Inhaler] 1 puff INHALATION RT- DAILY 04/15/24 [History] Acetaminophen Tab [Tylenol] 650 mg PO Q6HR PRN tab 04/20/24 [Rx] busPIRone HCl [Buspar] 5 mg PO BID tab 04/20/24 [Rx] methocarbamoL [Robaxin] 500 mg PO QID PRN tab 04/20/24 [Rx] Follow up Appointment(s)/Referral(s): Daksha Steiner MD [Primary Care Provider] - 1-2 days
== END 2024-04-20 14:30 ==
LOC: EC 12:26 → 6NMEDSUR 16:47
PROVIDERS: ADMIT Hospitalist; ATTEND Hospitalist
DX: R53.1 Weakness (principal); I48.0 Paroxysmal atrial fibrillation; I25.10 Atherosclerotic heart disease of native coronary artery without angina pectoris; I10 Essential (primary) hypertension; J44.9 Chronic obstructive pulmonary disease, unspecified; G40.909 Epilepsy, unspecified, not intractable, without status epilepticus; E43 Unspecified severe protein-calorie malnutrition; F41.9 Anxiety disorder, unspecified; K50.90 Crohn's disease, unspecified, without complications; Z80.0 Family history of malignant neoplasm of digestive organs; Z82.49 Family history of ischemic heart disease and other diseases of the circulatory system; Z83.3 Family history of diabetes mellitus; Z86.73 Personal history of transient ischemic attack (TIA), and cerebral infarction without residual deficits; Z79.01 Long term (current) use of anticoagulants; K21.9 Gastro-esophageal reflux disease without esophagitis; R91.8 Other nonspecific abnormal finding of lung field; F17.200 Nicotine dependence, unspecified, uncomplicated
CPT/HCPCS: 96361 ×2; 96366 ×2; 96367 ×2; 96365; 96375; 99285; 36415; 94760; 93005; 97161; 97165; 83880; 80053 ×2; 83735 ×3; 84100 ×2; 84484; 85025 ×2; 85610; 85730; 81001; 84145; 87636; 71046; G0378 ×3; J2270; J2405; J3475; J1885 ×2

== ENCOUNTER 2024-05-13 19:45 | Inpatient (IN) | payer MEDICARE, OTHER ==
[~2024-05-13 19:45] MED LIST changes: +AZITHROMYCIN 500 MG VIAL IVPB ONE; +HYDROcodone/APAP 5-325MG 1 EACH TAB ONE; +IPRATROPIUM-ALBUTEROL 3 ML NEB ONE; +MORPHINE SULFATE 4 MG/ML SYRINGE ONE; +QUEtiapine 400 MG TAB ONE; -SODIUM CHLORIDE 0.9% 1,000 ML IV SCH; +SODIUM CHLORIDE 0.9% 250 ML BAG ONE; +SODIUM CHLORIDE 0.9% 500 ML BAG ONE; +cefTRIAXone IN SWFI 1,000 MG/10 ML SYRINGE IVP ONE; +methylPREDNISolone SOD SUCCI 125 MG/2 ML VIAL ONE
[2024-05-13] MEDS ORDERED: levETIRAcetam 500 MG TAB ONE (21:40)
[2024-05-13] MEDS ORDERED: NICOTINE 21MG/24HR PATCH TRANSDERM ONE (22:04)
[2024-05-13] MEDS ORDERED: ALPRAZolam 0.25 MG TAB ONE (22:06)
[2024-05-13] MEDS ORDERED: HYDROcodone/APAP 5-325MG 1 EACH TAB ONE (22:06)
[2024-05-14] MEDS ORDERED: methylPREDNISolone SOD SUCCI 40 MG/ML 1 ML VIAL ONE ×2 (07:40→18:26)
[2024-05-14] MEDS ORDERED: FERROUS SULFATE 325 MG TAB PO ONE ×2 (07:40→20:06)
[2024-05-14] MEDS ORDERED: PANTOPRAZOLE 40 MG TABLET PO ONE (07:40)
[2024-05-14] MEDS ORDERED: levETIRAcetam 500 MG TAB ONE ×2 (07:41→20:07)
[2024-05-14] MEDS ORDERED: ONDANSETRON ODT 4 MG TAB ONE ×2 (07:41→17:51)
[2024-05-14] MEDS ORDERED: AZITHROMYCIN 500 MG TAB ONE (07:41)
[2024-05-14] MEDS ORDERED: METOPROLOL TARTRATE 50 MG TAB ONE (07:41)
[2024-05-14] MEDS ORDERED: GABAPENTIN 300 MG CAP ONE ×2 (07:41→20:06)
[2024-05-14] MEDS ORDERED: LOPERAMIDE 2 MG CAP ONE ×3 (07:41→17:51)
[2024-05-14] MEDS ORDERED: SYMBICORT 160-4.5 MCG INHALER INHALATION ONE (08:00)
[2024-05-14] MEDS ORDERED: BUPRENORPHINE-NALOX 8-2 MG TAB 1 EACH TAB.SUBL SL ONE (08:00)
[2024-05-14] MEDS ORDERED: IPRATROPIUM-ALBUTEROL 3 ML NEB ONE (08:00)
[2024-05-14] MEDS ORDERED: QUEtiapine 400 MG TAB ONE (08:00)
[2024-05-14] MEDS ORDERED: RIVAROXABAN 20 MG TAB PO ONE (09:00)
[2024-05-14] MEDS ORDERED: FLUTICASONE NASAL 50MCG/SPRAY 16GM BTL ONE (09:00)
[2024-05-14] MEDS ORDERED: ALPRAZolam 0.25 MG TAB ONE ×2 (09:55→20:07)
[2024-05-14] MEDS ORDERED: HYDROcodone/APAP 5-325MG 1 EACH TAB ONE ×2 (12:34→18:29)
[2024-05-14] MEDS ORDERED: ALPRAZolam 0.5 MG TAB ONE (12:35)
[2024-05-15] MEDS ORDERED: methylPREDNISolone SOD SUCCI 40 MG/ML 1 ML VIAL ONE ×2 (01:00→08:24)
[2024-05-15] MEDS ORDERED: IPRATROPIUM-ALBUTEROL 3 ML NEB ONE ×2 (07:43→08:00)
[2024-05-15] MEDS ORDERED: SYMBICORT 160-4.5 MCG INHALER INHALATION ONE (08:00)
[2024-05-15] MEDS ORDERED: RIVAROXABAN 20 MG TAB PO ONE (08:00)
[2024-05-15] MEDS ORDERED: PANTOPRAZOLE 40 MG TABLET PO ONE (08:20)
[2024-05-15] MEDS ORDERED: GABAPENTIN 300 MG CAP ONE (08:21)
[2024-05-15] MEDS ORDERED: levETIRAcetam 500 MG TAB ONE (08:21)
[2024-05-15] MEDS ORDERED: LOPERAMIDE 2 MG CAP ONE ×2 (08:21→14:43)
[2024-05-15] MEDS ORDERED: FERROUS SULFATE 325 MG TAB PO ONE (08:21)
[2024-05-15] MEDS ORDERED: ALPRAZolam 0.25 MG TAB ONE (08:24)
[2024-05-15] MEDS ORDERED: AZITHROMYCIN 500 MG TAB ONE (08:24)
[2024-05-15] MEDS ORDERED: METOPROLOL TARTRATE 50 MG TAB ONE (08:24)
[2024-05-15] MEDS ORDERED: ONDANSETRON ODT 4 MG TAB ONE (08:24)
[2024-05-15] MEDS ORDERED: HYDROcodone/APAP 5-325MG 1 EACH TAB ONE (14:43)
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
== END 2024-05-15 18:09 | DRG 190 ==
LOC: 5NMEDONC 19:45
PROVIDERS: ADMIT Hospitalist; ATTEND Hospitalist
DX: J44.1 Chronic obstructive pulmonary disease with (acute) exacerbation (principal); J96.21 Acute and chronic respiratory failure with hypoxia; Z79.01 Long term (current) use of anticoagulants; I48.0 Paroxysmal atrial fibrillation; G89.29 Other chronic pain; M54.9 Dorsalgia, unspecified; Z88.8 Allergy status to other drugs, medicaments and biological substances; D64.9 Anemia, unspecified; M54.50 Low back pain, unspecified; Z86.73 Personal history of transient ischemic attack (TIA), and cerebral infarction without residual deficits; Z99.81 Dependence on supplemental oxygen; Z88.1 Allergy status to other antibiotic agents; Z71.6 Tobacco abuse counseling
CPT/HCPCS: 71046; 80053; 83880; 84484; 85025; 85610; 85730; 93005; 94640; 94760; 96365; 96375; 99285

== ENCOUNTER 2024-06-29 12:03 | Inpatient (IN) | payer MEDICARE, OTHER ==
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
[2024-06-29 13:26] LABS: Basophils % (A) 0 %; Eosinophils # (A) 0.1 k/uL (0-0.7); Eosinophils % (A) 2 %; HCT 30.7 % (34.0-46.0); HGB 10.4 gm/dL (11.4-16.0); Lymphocytes # (A) 0.9 k/uL (1.0-4.8); Lymphocytes % (A) 12 %; MCH 27.7 pg (25.0-35.0); MCHC 33.8 g/dL (31.0-37.0); MCV 81.9 fL (80.0-100.0); Mean Platelet Volume 7.6; Monocytes # (A) 0.5 k/uL (0-1.0); Monocytes % (A) 7 %; Neutrophils # (A) 6.1 k/uL (1.3-7.7); Neutrophils % (A) 78 %; Platelet Count 300 k/uL (150-450); RBC 3.74 m/uL (3.80-5.40); WBC 7.8 k/uL (3.8-10.6)
[2024-06-29] MEDS: ACETAMINOPHEN TAB 500 MG TAB PO STA (13:30)
[2024-06-29] MEDS: MORPHINE SULFATE 4 MG/ML SYRINGE IVP STA (13:40)
[2024-06-29 13:59] LABS: INR 1.1 (<1.2); Partial Thromboplastin Time 36.8 sec (22.0-30.0); Prothrombin Time 12.2 sec (10.0-12.5)
[2024-06-29 14:14] LABS: ALT 8 U/L (4-34); AST 25 U/L (14-36); African American GFR (CKD) >90 (>60 ml/min/1.73 sqM); Albumin 3.2 g/dL (3.5-5.0); Alkaline Phosphatase 56 U/L (38-126); Anion Gap 2 mmol/L; Blood Urea Nitrogen 5 mg/dL (7-17); Calcium 8.4 mg/dL (8.4-10.2); Carbon Dioxide 36 mmol/L (22-30); Chloride 90 mmol/L (98-107); Glucose 130 mg/dL (74-99); Magnesium 1.6 mg/dL (1.6-2.3); Non-African American GFR(CKD) >90 (>60 ml/min/1.73 sqM); Potassium 4.2 mmol/L (3.5-5.1); Sodium 128 mmol/L (137-145); Total Bilirubin 0.3 mg/dL (0.2-1.3)
--- NOTE | 2024-06-29 14:22 | XR ---
EXAMINATION TYPE: XR chest 2V DATE OF EXAM: 06/29/2024 COMPARISON: 05/13/2024 INDICATION: Low-grade temperature fever TECHNIQUE: Frontal and lateral views of the chest are obtained. FINDINGS: The heart size is normal. The pulmonary vasculature is normal. There is some mild increased lung markings in the right lower lobe. Consider atelectasis or pneumonia . IMPRESSION: 1. Mild infiltrate right lower lobe. Correlate for atelectasis or pneumonia. [facility], , 06/29/2024 2:20 PM
[2024-06-29] MEDS ORDERED: IOPAMIDOL CONTRAST (ORAL USE) VIAL PO PRN (15:53)
[2024-06-29] MEDS ORDERED: NALOXONE 0.4 MG/ML 1 ML VIAL IV PRN (16:02)
[2024-06-29] MEDS ORDERED: PNEUMONIA PROTOCOL UTILIZED 1 EACH MISC PO PRN (16:03)
[2024-06-29] MEDS: PANTOPRAZOLE 40 MG/10 ML VIAL IVP SCH (16:57)
[2024-06-29] MEDS: SODIUM CHLORIDE 0.9% 1,000 ML IV SCH (16:58)
[2024-06-29] MEDS: HYDROcodone/APAP 5-325MG 1 EACH TAB PO PRN (18:18)
[2024-06-29 18:43] LABS: Appearance,Urine Clear (Clear); Bilirubin,Urine Negative (Negative); Blood,Urine Negative (Negative); Color,Urine Colorless; Glucose,Urine (UA) Negative (Negative); Ketones,Urine Negative (Negative); Leukocyte Esterase,Urine Negative (Negative); Nitrite,Urine Negative (Negative); PH, Urine 6.5 (5.0-8.0); Protein,Urine Negative (Negative); Specific Gravity,Urine 1.006 (1.001-1.035); Urobilinogen,Urine <2.0 mg/dL (<2.0)
[2024-06-29] MEDS: HEPARIN SODIUM,PORCINE 5,000 UNIT/ML 1 ML VIAL SQ SCH (20:58)
[2024-06-29] MEDS: IPRATROPIUM-ALBUTEROL 3 ML NEB INHALATION PRN (21:23)
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
--- NOTE | 2024-06-29 22:43 | HP ---
HISTORY AND PHYSICAL CHIEF COMPLAINT: Weakness. HISTORY OF PRESENT ILLNESS: This 64-year-old woman with a past medical of COPD, atrial ablation, was recently admitted and sent to rehab for severe weakness. The patient was in [facility] and was discharged about couple weeks ago. The patient has increased weakness and diminished p.o. intake and also weight loss about 60 pounds during the past 6 months. Patient admitted for evaluation. There is no history of fever, rigors, or chills. Patient has a lung nodule in the right, being followed Dr. Cortez. PAST MEDICAL HISTORY: History of CAD, COPD, and GERD. Rest of the history and chart is also reviewed. HOME MEDICATIONS: Reviewed include Robaxin, dose and rest of medications are not confirmed. ALLERGIES: Levaquin. FAMILY HISTORY: History of diabetes mellitus and cancer. SOCIAL HISTORY: Remote history of cocaine, marijuana, and smoking. REVIEW OF SYSTEMS: A 14-point review is negative except as mentioned earlier. PHYSICAL EXAMINATION: VITAL SIGNS: Pulse is 84, blood pressure is 130/70, respirations 18, and temperature is 100.2. HEENT: Conjunctivae normal. NECK: No jugular venous distention. CARDIOVASCULAR: S1, S2. RESPIRATIONS: Breath sounds diminished at the bases. A few scattered rhonchi and crackles. ABDOMEN: Soft and nontender. LEGS: No edema. No swelling. SKIN: No ulcer, rash, bleeding. JOINTS: No active deforming arthropathy. LABORATORY DATA: Hemoglobin 10.4. COVID-19 is negative. ASSESSMENT: 1. Severe weakness and weight loss. Rule out internal malignancy. 2. Fever, for evaluation, rule out sepsis. 3. History of atrial fibrillation. 4. Chronic obstructive pulmonary disease. 5. Gait dysfunction. 6. Hypertension. 7. Hyperlipidemia. 8. History of seizure disorder. 9. History of pulmonary nodule on the right. 10.Anxiety, bipolar depression. 11.History of substance abuse with cocaine and THC. RECOMMENDATION: This 64-year-old woman presented with multiple complex medical issues. We will monitor the patient closely. At this time, I would recommend a CT scan of abdomen and pelvis, and otherwise recommend evaluation with PT/OT and possible ECF rehab. Resume the home medications, dietary consultation, and symptomatic treatment. The patient also had a fever. I would recommend infectious Disease with Dr. Irwin also. Prognosis guarded because of multiple complex medical issues. Further recommendations to follow. See orders for details. HIV also will be ordered. MMODL / IJN: [id number] /
[2024-06-30 01:25] LABS: HIV 2 AB Non-Reactive (Non-Reactive); HIV AB P24 Non-Reactive (Non-Reactive); HIV P24 AG Non-Reactive (Non-Reactive)
[2024-06-30] MEDS: QUEtiapine 400 MG TAB PO SCH (02:46)
--- NOTE | 2024-06-30 08:07 | XR ---
EXAMINATION TYPE: XR chest 1V portable DATE OF EXAM: 06/30/2024 COMPARISON: 06/29/2024 INDICATION: Pneumonia weakness TECHNIQUE: Single frontal view of the chest is obtained. FINDINGS: The heart size is normal. The pulmonary vasculature is normal. Although infiltrate may be in the right middle lobe. Costochondral calcification is noted IMPRESSION: 1. Mild right middle lobe infiltrate. [facility], , 06/30/2024 8:05 AM
[2024-06-30 09:13] LABS: ALT 8 U/L (8-44); AST 16 U/L (13-35); Albumin 3.4 g/dL (3.8-4.9); Albumin/Globulin Ratio 1.36 Ratio (1.60-3.17); Alkaline Phosphatase 66 U/L (41-126); Blood Urea Nitrogen 6.3 mg/dL (9.0-27.0); Calcium 8.4 mg/dL (8.7-10.3); Carbon Dioxide 35.9 mmol/L (21.6-31.8); Chloride 90 mmol/L (96-109); Globulin 2.5 g/dL (1.6-3.3); Glucose 118 mg/dL (70-110); Potassium 4.6 mmol/L (3.5-5.5); Sodium 134 mmol/L (135-145); Total Bilirubin 0.2 mg/dL (0.3-1.2); Total Protein 5.9 g/dL (6.2-8.2)
[2024-06-30 09:17] LABS: Basophils # (A) 0.03 X 10*3/uL (0.00-0.10); Basophils % (A) 0.4 %; Eosinophils % (A) 1.4 %; HGB 10.4 g/dL (12.0-15.0); Lymphocytes # (A) 1.19 X 10*3/uL (0.90-5.00); Lymphocytes % (A) 16.6 %; MCH 27.5 pg (27.0-32.0); MCHC 32.5 g/dL (32.0-37.0); MCV 84.7 FL (80.0-97.0); Mean Platelet Volume 9.6 FL (9.5-12.2); Monocytes # (A) 0.76 X 10*3/uL (0.20-1.00); Monocytes % (A) 10.6 %; NRBC Per 100 WBC 0 X 10*3/uL (0.00-0.01); Neutrophils # (A) 5.05 X 10*3/uL (1.80-7.70); Neutrophils % (A) 70.6 %; Platelet Count 320 X 10*3/uL (140-440); RBC 3.78 X 10*6/uL (4.10-5.20); RDW 14.4 % (11.5-14.5); WBC 7.16 X 10*3/uL (4.50-10.00)
[2024-06-30] MEDS: AZITHROMYCIN 500 MG TAB PO SCH (10:53)
[2024-06-30] MEDS: MULTIVITAMINS, THERA 1 EACH TAB PO SCH (10:53)
[2024-06-30] MEDS: AMPICILLIN-SULBACTAM 3 GM in SODIUM CHLORIDE 0.9% 100 ML IVPB SCH (12:58)
[2024-06-30] MEDS: levETIRAcetam 500 MG TAB PO SCH (21:49)
[2024-07-01 09:11] LABS: Basophils # (A) 0.04 X 10*3/uL (0.00-0.10); Basophils % (A) 0.6 %; Eosinophils # (A) 0.07 X 10*3/uL (0.04-0.35); HCT 29.3 % (37.2-46.3); HGB 9.5 g/dL (12.0-15.0); Lymphocytes # (A) 1.77 X 10*3/uL (0.90-5.00); Lymphocytes % (A) 26.3 %; MCHC 32.4 g/dL (32.0-37.0); MCV 83.2 FL (80.0-97.0); Mean Platelet Volume 9.5 FL (9.5-12.2); Monocytes # (A) 0.84 X 10*3/uL (0.20-1.00); Monocytes % (A) 12.5 %; NRBC Per 100 WBC 0 X 10*3/uL (0.00-0.01); Neutrophils # (A) 3.97 X 10*3/uL (1.80-7.70); Neutrophils % (A) 59.2 %; Platelet Count 301 X 10*3/uL (140-440); RBC 3.52 X 10*6/uL (4.10-5.20); RDW 14.5 % (11.5-14.5); WBC 6.72 X 10*3/uL (4.50-10.00)
--- NOTE | 2024-07-01 09:15 | P.PN ---
Subjective Progress Note Date: 06/30/24 Principal diagnosis: Reason for follow-up is fever and Enterococcus bacteremia Patient is a 64-year-old female with a past medical history significant for atrial fibrillation coronary disease COPD hypertension hyperlipidemia CVA TIA seizure disorder patient has been brought into the hospital for evaluation of weakness, patient was febrile on presentation to the hospital chest x-ray with the right lower lobe infiltrate with initial concern for possible pneumonia subsequently blood cultures came back positive with Enterococcus faecalis UA negative. On today's evaluation that is 06/30/2024,the patient did have resolution of her fever is afebrile this morning patient is still complaining of feeling weak also complaining of some shortness of breath and cough currently on a 2 L nasal cannula oxygen, did have some vague abdominal discomfort no urinary symptoms. Patient white count 7.16, creatinine 0.5 blood culture with Enterococcus faecalis Objective - Vital Signs Vital signs: Vital Signs Temp 98.8 F 06/29/24 14:53 Pulse 96 06/30/24 10:52 Resp 18 06/30/24 10:52 BP 102/44 06/30/24 10:52 Pulse Ox 95 06/30/24 10:52 FiO2 Intake & Output 06/29/24 06/30/24 06/30/24 18:59 06:59 18:59 Weight 47.174 kg - Exam GENERAL DESCRIPTION: An elderly female lying in bed in no distress RESPIRATORY SYSTEM: Unlabored breathing , decreased breath sounds at bases HEART: S1 S2 regular rate and rhythm , ABDOMEN: Soft , mild lower abdominal tenderness EXTREMITIES: No edema feet - Labs CBC & Chem 7: 07/01/24 02:43 06/30/24 06:44 Labs: Abnormal Lab Results - Last 24 Hours (Table) 06/29/24 06/29/24 06/29/24 Range/Units 13:01 13:39 13:39 RBC 3.74 L (3.80-5.40) m/uL Hgb 10.4 L (11.4-16.0) gm/dL Hct 30.7 L (34.0-46.0) % Lymphocytes # 0.9 L (1.0-4.8) k/uL ESR (0-30) mm/Hr APTT 36.8 H (22.0-30.0) sec Sodium 128 L (137-145) mmol/L Chloride 90 L (98-107) mmol/L Carbon Dioxide 36 H (22-30) mmol/L BUN 5 L (7-17) mg/dL Creatinine 0.37 L (0.52-1.04) mg/dL Glucose 130 H (74-99) mg/dL Calcium (8.7-10.3) mg/dL Total Bilirubin (0.3-1.2) mg/dL C-Reactive Protein (<1.0) mg/dL Total Protein 6.0 L (6.3-8.2) g/dL Albumin 3.2 L (3.5-5.0) g/dL Albumin/Globulin Ratio (1.60-3.17) Ratio 06/29/24 06/29/24 06/30/24 Range/Units 13:39 13:39 06:44 RBC 3.78 L (3.80-5.40) m/uL Hgb 10.4 L (11.4-16.0) gm/dL Hct 32.0 L (34.0-46.0) % Lymphocytes # (1.0-4.8) k/uL ESR 40 H (0-30) mm/Hr APTT (22.0-30.0) sec Sodium (137-145) mmol/L Chloride (98-107) mmol/L Carbon Dioxide (22-30) mmol/L BUN (7-17) mg/dL Creatinine (0.52-1.04) mg/dL Glucose (74-99) mg/dL Calcium (8.7-10.3) mg/dL Total Bilirubin (0.3-1.2) mg/dL C-Reactive Protein 6.8 H (<1.0) mg/dL Total Protein (6.3-8.2) g/dL Albumin (3.5-5.0) g/dL Albumin/Globulin Ratio (1.60-3.17) Ratio 06/30/24 Range/Units 06:44 RBC (3.80-5.40) m/uL Hgb (11.4-16.0) gm/dL Hct (34.0-46.0) % Lymphocytes # (1.0-4.8) k/uL ESR (0-30) mm/Hr APTT (22.0-30.0) sec Sodium 134 L (137-145) mmol/L Chloride 90 L (98-107) mmol/L Carbon Dioxide 35.9 H (22-30) mmol/L BUN 6.3 L (7-17) mg/dL Creatinine 0.5 L (0.52-1.04) mg/dL Glucose 118 H (74-99) mg/dL Calcium 8.4 L (8.7-10.3) mg/dL Total Bilirubin 0.2 L (0.3-1.2) mg/dL C-Reactive Protein (<1.0) mg/dL Total Protein 5.9 L (6.3-8.2) g/dL Albumin 3.4 L (3.5-5.0) g/dL Albumin/Globulin Ratio 1.36 L (1.60-3.17) Ratio Microbiology - Last 24 Hours (Table) 06/29/24 13:39 Blood Culture Gram Stain - Preliminary Blood Blood Culture - Preliminary Molecular ID Assessment and Plan (1) Pneumonia Current Visit: Yes Status: Acute Code(s): J18.9 - PNEUMONIA, UNSPECIFIED ORGANISM SNOMED Code(s): 273135897 (2) Pyrexia Current Visit: No Status: Acute Code(s): R50.9 - FEVER, UNSPECIFIED SNOMED Code(s): 695606865 (3) Enterococcus faecalis infection Current Visit: Yes Status: Acute Code(s): A49.8 - OTHER BACTERIAL INFECTIONS OF UNSPECIFIED SITE SNOMED Code(s): 487781346 (4) Bacteremia Current Visit: Yes Status: Acute Code(s): R78.81 - BACTEREMIA SNOMED Code(s): 9769001 Plan: 1patient presented to hospital with generalized weakness, patient also noted to be febrile with evidence of right lower lobe infiltrate with initial concern for possible right lower lobe pneumonia 2the patient blood cultures currently positive with Enterococcus faecalis, not a common pathogen to cause pneumonia likely abdominal source as urine has been negative CT has been ordered results will be followed 3Rocephin Zithromax has been discontinued patient was started on Unasyn blood cultures will be repeated to document clearance Dictation was produced using [email or web address] dictation software. please excuse any grammatical, word or spelling errors. Time with Patient: Less than 30
[2024-07-01 09:20] LABS: BUN/Creat Ratio 18.75 Ratio (12.00-20.00); Blood Urea Nitrogen 7.5 mg/dL (9.0-27.0); Calcium 8.1 mg/dL (8.7-10.3); Carbon Dioxide 30.9 mmol/L (21.6-31.8); Chloride 94 mmol/L (96-109); Glucose 90 mg/dL (70-110); Sodium 136 mmol/L (135-145)
[2024-07-01] MEDS: IOPAMIDOL CONTRAST (ORAL USE) VIAL PO PRN (13:36)
[2024-07-01 14:48] VITALS: BMI 15.7
--- NOTE | 2024-07-01 15:45 | CT ---
EXAMINATION TYPE: CT ChestAbdPelvis wo con CT DLP: 383.1 mGycm, Automated exposure control for dose reduction was used. DATE OF EXAM: 07/01/2024 3:21 PM COMPARISON: Chest radiograph 06/30/2024, CT abdomen and pelvis 03/05/2024, CTA chest 06/26/2023. CLINICAL INDICATION:Female, 64 years old with history of wt loss, ? ca; PHH, Weight loss, CA. Technique: Multiple axial images of the chest, abdomen, and pelvis were obtained without the administ ration of intravenous contrast. This limits evaluation. Oral contrast was administered. Two-dimension al coronal and sagittal reconstructions were obtained. Findings: CHEST: LUNGS/ PLEURA: Advanced centrilobular emphysematous changes. No pleural effusion or pneumothorax. Foc al reticular nodular peripheral opacities within the posterior right upper lobe and right lower lobe. Left lung is clear. Right middle lobe linear atelectasis and/or scarring with some volume loss. AIRWAY: Patent and unremarkable.. HEART: Size within normal limits. No pericardial effusion. MEDIASTINUM: Shifted to the right due to right lung volume loss. Mildly prominent mediastinal lymph n odes with prominence of the right pulmonary hilum. Evaluation is limited due to lack of intravenous c ontrast. Small calcifications within the right pulmonary hilum. VASCULATURE: No aortic aneurysm. Mild atherosclerotic calcification of the aorta and its branches. MUSCULOSKELETAL: No acute osseous abnormalities. No aggressive osseous lesion. SOFT TISSUES/LYMPH NODES: Similar focal right breast tissue from multiple prior exams. No axillary ly mphadenopathy identified. LOWER NECK: No significant findings. ABDOMEN: ABDOMEN LIVER: Unremarkable noncontrast appearance GALLBLADDER AND BILE DUCTS: Contracted gallbladder. No gross evidence of biliary duct dilatation is w ithin limits of noncontrast exam. PANCREAS: Unremarkable noncontrast appearance. SPLEEN: Unremarkable noncontrast appearance. ADRENAL GLANDS: Unremarkable noncontrast appearance.. KIDNEYS AND URETERS: No evidence of hydronephrosis or renal calculus. PELVIS BLADDER: Unremarkable REPRODUCTIVE: Unremarkable. ABDOMEN & PELVIS STOMACH AND BOWEL: Stomach and duodenum are unremarkable. Enteric contrast reaches the ascending colo n. Long segment stricture frontal wall thickening of the majority of the colon with surrounding fat s tranding involving the transverse and descending colon. Rectal fecaloma measuring up to 6.6 times No evidence of bowel obstruction. PERITONEUM: No evidence of pneumoperitoneum. Trace amount of free fluid in the pelvis. VASCULATURE: No evidence of aortic aneurysm. MUSCULOSKELETAL: No acute osseous abnormalities. No aggressive osseous lesion. Chronic anterior wedgi ng of the T8 vertebral body with approximately 40% height loss. No retropulsion. LYMPH NODES: No gross evidence for lymphadenopathy. SOFT TISSUE/ABDOMINAL WALL: Unremarkable IMPRESSION: Limited evaluation due to lack of intravenous contrast. 1. Circumferential wall thickening with inflammatory changes involving the colon. Most prominently i nvolving the descending and transverse colon. Etiologies include infectious/inflammatory colitis. Pos sibly pseudomembranous colitis. Less likely ischemic due to long segment involvement. 2. Rectal fecaloma. 3. Trace free fluid in the pelvis which may be physiologic versus reactive to #1. 4. Nonspecific mildly prominent mediastinal lymph nodes and right pulmonary hilar prominence. 5. Advanced COPD changes with right middle lobe atelectasis. [facility], , 07/01/2024 3:42 PM
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
[2024-07-01] MEDS: ALPRAZolam 0.5 MG TAB PO STA (21:01)
--- NOTE | 2024-07-02 06:16 | P.PN ---
Subjective Progress Note Date: 07/01/24 This is a 64-year-old female who was recently admitted for severe weakness. Patient was recently discharged a few weeks ago from [facility] and noted to have increased weakness and diminished p.o. intake with weight loss and inability to care for herself. Multiple consultations following including inf ectious disease and pulmonary Dr. Cortez has been consulted regarding a pulmonary nodule that was noted on imaging. Patient will most likely need outpatient PET scan and further follow-up in the outpatient setting. Patient has an extensive past medical history of coronary artery disease, COPD, GERD, Crohn's, IBS, and chronic pain. Awaiting PT/OT therapy evaluation. Patient was also noted to have a positive blood culture, likely contaminant although repeat blood cultures are ordered and pending. Infectious diseases following. Review of systems: Constitutional: No reports of fatigue, fever, or chills Cardiovascular: No reports of chest pain or palpitations Respiratory: reports of shortness of breath and continued cough GI: reports of nausea, no reports of vomiting, reports abdominal pain and not much of an appetite : No reports of dysuria or retention Neurovascular: reports of generalized weakness, inability to ambulate All medications have been reviewed PHYSICAL EXAMINATION: GENERAL: The patient is alert and oriented x4, Well developed, thin built, cachectic, elderly appearing, ill-appearing HEENT: Pupils are round and equally reacting to light. EOMI. no scleral icterus. No conjunctival pallor. Normocephalic, atraumatic. No pharyngeal erythema. No thyromegaly. CARDIOVASCULAR: S1 and S2 muffled PULMONARY: diminished breath sounds bilaterally with coarse scattered rhonchi noted. ABDOMEN: soft. tender on exam. Thin. non-distended, normoactive bowel sounds. No palpable organomegaly. MUSCULOSKELETAL: No joint swelling or deformity. Significant muscle wasting noted throughout EXTREMITIES: No cyanosis, clubbing, or pedal edema. NEUROLOGICAL: Gross neurological examination did not reveal any focal deficits. Diffuse weakness SKIN: No rashes. Assessment: Severe weakness and weight loss, rule out internal malignancy Fever for evaluation, rule out sepsis Positive blood cultures, possible contaminant, repeat cultures are pending with infectious disease following History of atrial fibrillation Chronic obstructive pulmonary disease, not in exacerbation Gait dysfunction with generalized weakness History of hypertension History of hyperlipidemia History of seizure disorder History of pulmonary nodule on the right, needs outpatient testing and evaluated by pulmonary will likely need PET scan outpatient History of anxiety, bipolar depression History of previous substance abuse with cocaine and THC Severe protein calorie malnutrition with a BMI of 15.8 Continued ongoing nicotine dependence GI prophylaxis DVT prophylaxis Full code Plan: Recommend to continue with current medications and management with infectious disease and pulmonary Dr. Jaun Cortez following. Concerns of a right pulmonary nodule that was found on imaging and will likely need PET scan outpatient and outpatient follow-up Home medications reviewed and resumed as appropriate Awaiting updated PT/OT therapy notes for case management to submit insurance authorization for ECF Patient is extremely weak and cachectic and would likely benefit from ECF. Patient had positive blood cultures with infectious disease following, likely contaminant and repeat blood cultures have been collected and pending at this time Will discuss further with other consultations and case management regarding discharge planning Possible discharge in the next few days The impression and plan of care has been dictated by Angelita Diaz, nurse practitioner as directed. Dr. Aaron MOORE I have performed a history and examination and MDM of this patient, discussed the same with the dictator, and agree with the dictator's assessment and plan as written ,documented as a scribe. Based on total visit time, I have performed more than 50% of the visit. Any additional findings or plans will be noted. Objective - Vital Signs Vital signs: Vital Signs Temp 98.8 F 07/01/24 07:17 Pulse 100 07/01/24 08:42 Resp 18 07/01/24 07:54 BP 127/68 07/01/24 07:17 Pulse Ox 96 07/01/24 07:17 FiO2 Intake & Output 06/30/24 07/01/24 07/01/24 18:59 06:59 18:59 Output Total 250 300 Balance -250 -300 Weight 47.174 kg Output: Urine 250 300 Other: Voiding Method External Catheter External Catheter # Voids 2 # Bowel Movements 1 - Labs CBC & Chem 7: 07/01/24 02:43 07/01/24 02:43 Labs: Abnormal Lab Results - Last 24 Hours (Table) 07/01/24 07/01/24 Range/Units 02:43 02:43 RBC 3.52 L (4.10-5.20) X 10*6/uL Hgb 9.5 L (12.0-15.0) g/dL Hct 29.3 L (37.2-46.3) % Chloride 94 L (96-109) mmol/L BUN 7.5 L (9.0-27.0) mg/dL Creatinine 0.4 L (0.6-1.5) mg/dL Calcium 8.1 L (8.7-10.3) mg/dL Microbiology - Last 24 Hours (Table) 06/29/24 13:39 Blood Culture Gram Stain - Preliminary Blood Blood Culture - Preliminary Enterococcus faecalis Molecular ID
[2024-07-02 08:25] LABS: Basophils # (A) 0.04 X 10*3/uL (0.00-0.10); Basophils % (A) 0.7 %; Eosinophils # (A) 0.08 X 10*3/uL (0.04-0.35); Eosinophils % (A) 1.5 %; HCT 28.1 % (37.2-46.3); HGB 8.9 g/dL (12.0-15.0); Lymphocytes % (A) 27.2 %; MCH 26.8 pg (27.0-32.0); MCHC 31.7 g/dL (32.0-37.0); MCV 84.6 FL (80.0-97.0); Mean Platelet Volume 10.1 FL (9.5-12.2); Monocytes # (A) 0.74 X 10*3/uL (0.20-1.00); Monocytes % (A) 13.4 %; NRBC Per 100 WBC 0 X 10*3/uL (0.00-0.01); Neutrophils # (A) 3.14 X 10*3/uL (1.80-7.70); Platelet Count 316 X 10*3/uL (140-440); RBC 3.32 X 10*6/uL (4.10-5.20); RDW 14.2 % (11.5-14.5); WBC 5.51 X 10*3/uL (4.50-10.00)
[2024-07-02 09:27] LABS: Erythrocyte Sedimentation Rate 30 mm/Hr (0-30)
--- NOTE | 2024-07-02 10:12 | P.PN ---
Subjective Progress Note Date: 07/02/24 Principal diagnosis: Right-sided pneumonia likely aspiration related involving right lower lobe and posterior segment of right upper lobe, Malignancy less likely but cannot be excluded as nodules are multiple small discrete suggestive of inflammatory process COPD without exacerbation Generalized weakness and medical debility with component of protein calorie malnourishment Inflammatory bowel disease related to Crohn's disease Disorder depression History of atrial fibrillation Hypertension hypertensive cardiovascular disease Dyslipidemia Disorder July 02, 2024, patient seen eval examined during rounds labs reviewed medications reviewed, patient is on 3 L nasal cannula has exertional shortness of breath denies any chest pain, patient remains on IV Unasyn, would recommend bronchodilators and IV steroids and continuation of PT OT as recommended above continue IV Unasyn, continue aspiration precaution 64-year-old female with a history of chronic persistent asthma asthmatic bronchitis and COPD patient has multiple comorbidities presented to hospital with progressive generalized weakness. Patient was discharged about 2 weeks ago to a rehab facility for rehabilitation related to generalized weakness patient noted to have a nodule in the lung asked to evaluate. Admitted chest x-ray significant for mild infiltrate in left lower lobe possible atelectasis versus pneumonia, follow-up chest x-ray continue to show infiltrate involving right middle lobe. CT scan of the chest advanced centrilobular emphysema, focal reticulonodular opacities in right upper lobe posteriorly and right lower lobe some atelectasis and scarring seen in right middle lobe area as well findings are more suggestive of infiltrative infectious process, patient is appropriately being treated with IV Unasyn Other active medical problems include inflammatory bowel disease/Crohn's disease chronic atrial fibrillation, coronary artery disease, COPD, history of CVA/TIA, GERD, dyslipidemia, hypertension hypertensive cardiovascular disease history of pneumonia and seizure disorder syncope Objective - Vital Signs Vital signs: Vital Signs Temp 98.2 F 07/02/24 08:00 Pulse 102 H 07/02/24 08:00 Resp 17 07/02/24 08:00 BP 138/78 07/02/24 08:00 Pulse Ox 92 L 07/02/24 08:00 FiO2 Intake & Output 07/01/24 07/02/24 07/02/24 18:59 06:59 18:59 Output Total 750 Balance -750 Weight 47.174 kg Output: Urine 750 Other: Voiding Method External Catheter Bedside Commode # Voids 1 2 # Bowel Movements 1 - Exam - Constitutional General appearance: average body habitus, cooperative, disheveled, mild distress - EENT Eyes: PERRLA Ears: bilateral: normal - Neck Neck: normal ROM Carotids: bilateral: upstroke normal Thyroid: bilateral: normal size - Respiratory Respiratory: bilateral: CTA - Cardiovascular Rhythm: regular Heart sounds: normal: S1, S2 - Gastrointestinal General gastrointestinal: soft - Integumentary Integumentary: normal turgor - Neurologic Neurologic: CNII-XII intact - Musculoskeletal Musculoskeletal: gait normal, generalized weakness, strength equal bilaterally - Psychiatric Psychiatric: A&O x's 3, appropriate affect, intact judgment & insight - Labs CBC & Chem 7: 07/02/24 02:57 07/01/24 02:43 Labs: Abnormal Lab Results - Last 24 Hours (Table) 07/02/24 07/02/24 Range/Units 02:57 02:57 RBC 3.32 L (4.10-5.20) X 10*6/uL Hgb 8.9 L (12.0-15.0) g/dL Hct 28.1 L (37.2-46.3) % MCH 26.8 L (27.0-32.0) pg MCHC 31.7 L (32.0-37.0) g/dL C-Reactive Protein 9.00 H (0.00-0.80) mg/dL Microbiology - Last 24 Hours (Table) 06/29/24 13:39 Blood Culture Gram Stain - Preliminary Blood Blood Culture - Preliminary Enterococcus faecalis Molecular ID Assessment and Plan Assessment: Right-sided pneumonia likely aspiration related involving right lower lobe and posterior segment of right upper lobe, Malignancy less likely but cannot be excluded as nodules are multiple small discrete suggestive of inflammatory process COPD with exacerbation Generalized weakness and medical debility with component of protein calorie malnourishment Inflammatory bowel disease related to Crohn's disease Disorder depression History of atrial fibrillation Hypertension hypertensive cardiovascular disease Dyslipidemia Disorder Plan: Continue IV Unasyn Dilators and IV steroids Commend follow-up on outpatient basis with a PET scan if CT scan continue show infiltrative pattern Increase activity as tolerated Nutritional status, dietitian evaluation Continue antiseizure medications and antidepressant Time with Patient: Greater than 30
[2024-07-02 11:32] LABS: ALT 7 U/L (8-44); AST 15 U/L (13-35); Albumin 2.9 g/dL (3.8-4.9); Albumin/Globulin Ratio 1.26 Ratio (1.60-3.17); Alkaline Phosphatase 57 U/L (41-126); Blood Urea Nitrogen 4.8 mg/dL (9.0-27.0); Calcium 7.9 mg/dL (8.7-10.3); Carbon Dioxide 27.2 mmol/L (21.6-31.8); Chloride 96 mmol/L (96-109); Globulin 2.3 g/dL (1.6-3.3); Glucose 88 mg/dL (70-110); Potassium 3.8 mmol/L (3.5-5.5); Sodium 138 mmol/L (135-145); Total Bilirubin <0.2 mg/dL (0.3-1.2); Total Protein 5.2 g/dL (6.2-8.2)
[2024-07-02] MEDS: IPRATROPIUM-ALBUTEROL 3 ML NEB INHALATION SCH (12:26)
--- NOTE | 2024-07-02 13:58 | P.PN ---
Subjective Progress Note Date: 07/01/24 Principal diagnosis: Reason for follow-up is fever and Enterococcus bacteremia Patient is a 64-year-old female with a past medical history significant for atrial fibrillation coronary disease COPD hypertension hyperlipidemia CVA TIA seizure disorder patient has been brought into the hospital for evaluation of weakness, patient was febrile on presentation to the hospital chest x-ray with the right lower lobe infiltrate with initial concern for possible pneumonia subsequently blood cultures came back positive with Enterococcus faecalis UA negative. On today's evaluation that is 07/01/2024,the patient remains to be afebrile, patient is on 2 L nasal cannula supplemental oxygen and denies any shortness of breath no chest pain or any worsening some lower abdominal discomfort no diarrhea. Cough.Patient denies having any nausea or vomiting, patient white count 6.72, creatinine is 0.4 CT abdominal pelvis currently pending Objective - Vital Signs Vital signs: Vital Signs Temp 98.8 F 07/01/24 07:17 Pulse 100 07/01/24 08:42 Resp 18 07/01/24 07:54 BP 127/68 07/01/24 07:17 Pulse Ox 96 07/01/24 07:17 FiO2 Intake & Output 06/30/24 07/01/24 07/01/24 18:59 06:59 18:59 Output Total 250 300 Balance -250 -300 Weight 47.174 kg Output: Urine 250 300 Other: Voiding Method External Catheter External Catheter # Voids 2 # Bowel Movements 1 - Exam GENERAL DESCRIPTION: An elderly female lying in bed in no distress RESPIRATORY SYSTEM: Unlabored breathing , decreased breath sounds at bases HEART: S1 S2 regular rate and rhythm , ABDOMEN: Soft , mild lower abdominal tenderness EXTREMITIES: No edema feet - Labs CBC & Chem 7: 07/02/24 02:57 07/02/24 02:57 Labs: Abnormal Lab Results - Last 24 Hours (Table) 07/01/24 07/01/24 Range/Units 02:43 02:43 RBC 3.52 L (4.10-5.20) X 10*6/uL Hgb 9.5 L (12.0-15.0) g/dL Hct 29.3 L (37.2-46.3) % Chloride 94 L (96-109) mmol/L BUN 7.5 L (9.0-27.0) mg/dL Creatinine 0.4 L (0.6-1.5) mg/dL Calcium 8.1 L (8.7-10.3) mg/dL Microbiology - Last 24 Hours (Table) 06/29/24 13:39 Blood Culture Gram Stain - Preliminary Blood Blood Culture - Preliminary Enterococcus faecalis Molecular ID Assessment and Plan (1) Pneumonia Current Visit: Yes Status: Acute Code(s): J18.9 - PNEUMONIA, UNSPECIFIED ORGANISM SNOMED Code(s): 207719615 (2) Pyrexia Current Visit: No Status: Acute Code(s): R50.9 - FEVER, UNSPECIFIED SNOMED Code(s): 258714456 (3) Enterococcus faecalis infection Current Visit: Yes Status: Acute Code(s): A49.8 - OTHER BACTERIAL INFECTIONS OF UNSPECIFIED SITE SNOMED Code(s): 910800831 (4) Bacteremia Current Visit: Yes Status: Acute Code(s): R78.81 - BACTEREMIA SNOMED Code(s): 5814117 Plan: 1patient presented to hospital with generalized weakness, patient also noted to be febrile with evidence of right lower lobe infiltrate with initial concern for possible right lower lobe pneumonia 2the patient blood cultures currently positive with Enterococcus faecalis, not a common pathogen to cause pneumonia likely abdominal source as urine has been negative CT has been ordered with the patient initially refused however after talking to the patient she did agree to have the CT abdominal pelvis done today 3patient to continue with Unasyn, blood cultures will be repeated to document clearance of bacteremia Dictation was produced using [employer] dictation software. please excuse any grammatical, word or spelling errors. Time with Patient: Less than 30
--- NOTE | 2024-07-02 13:59 | P.PN ---
Subjective Progress Note Date: 07/02/24 Principal diagnosis: Reason for follow-up is fever and Enterococcus bacteremia Patient is a 64-year-old female with a past medical history significant for atrial fibrillation coronary disease COPD hypertension hyperlipidemia CVA TIA seizure disorder patient has been brought into the hospital for evaluation of weakness, patient was febrile on presentation to the hospital chest x-ray with the right lower lobe infiltrate with initial concern for possible pneumonia subsequently blood cultures came back positive with Enterococcus faecalis UA negative. On today's evaluation that is 07/02/2024, the patient continues to be afebrile, the patient is on 2 L nasal cannula oxygen and breathing comfortably, the Pt denies having any chest pain or any worsening cough, the patient denies having any abdominal pain no vomiting or any diarrhea has been reported by the nursing staff. Patient white count is 5.51, creatinine 0.4 CT abdominal pelvis and chest did shows circumferential wall thickening inflammatory changes involving the colon around descending and transverse colon rectal fecaloma and no evidence of any pneumonia Objective - Vital Signs Vital signs: Vital Signs Temp 98.2 F 07/02/24 08:00 Pulse 102 H 07/02/24 08:00 Resp 17 07/02/24 08:00 BP 138/78 07/02/24 08:00 Pulse Ox 92 L 07/02/24 08:00 FiO2 Intake & Output 07/01/24 07/02/24 07/02/24 18:59 06:59 18:59 Output Total 750 Balance -750 Weight 47.174 kg Output: Urine 750 Other: Voiding Method External Catheter Bedside Commode Bedside Commode # Voids 1 2 # Bowel Movements 1 - Exam GENERAL DESCRIPTION: An elderly female lying in bed in no distress RESPIRATORY SYSTEM: Unlabored breathing , decreased breath sounds at bases HEART: S1 S2 regular rate and rhythm , ABDOMEN: Soft , mild lower abdominal tenderness EXTREMITIES: No edema feet - Labs CBC & Chem 7: 07/02/24 02:57 07/02/24 02:57 Labs: Abnormal Lab Results - Last 24 Hours (Table) 07/02/24 07/02/24 Range/Units 02:57 02:57 RBC 3.32 L (4.10-5.20) X 10*6/uL Hgb 8.9 L (12.0-15.0) g/dL Hct 28.1 L (37.2-46.3) % MCH 26.8 L (27.0-32.0) pg MCHC 31.7 L (32.0-37.0) g/dL C-Reactive Protein 9.00 H (0.00-0.80) mg/dL Microbiology - Last 24 Hours (Table) 06/29/24 13:39 Blood Culture Gram Stain - Preliminary Blood Blood Culture - Preliminary Enterococcus faecalis Molecular ID Assessment and Plan (1) Pneumonia Current Visit: Yes Status: Acute Code(s): J18.9 - PNEUMONIA, UNSPECIFIED ORGANISM SNOMED Code(s): 953059148 (2) Pyrexia Current Visit: No Status: Acute Code(s): R50.9 - FEVER, UNSPECIFIED SNOMED Code(s): 549727969 (3) Enterococcus faecalis infection Current Visit: Yes Status: Acute Code(s): A49.8 - OTHER BACTERIAL INFECTIONS OF UNSPECIFIED SITE SNOMED Code(s): 012510816 (4) Bacteremia Current Visit: Yes Status: Acute Code(s): R78.81 - BACTEREMIA SNOMED Code(s): 6803115 Plan: 1patient presented to hospital with generalized weakness, patient also noted to be febrile with evidence of right lower lobe infiltrate with initial concern for possible right lower lobe pneumonia 2the patient blood cultures currently positive with Enterococcus faecalis, not a common pathogen to cause pneumonia likely abdominal source as urine has been negative, CT abdominal pelvis evidence of descending and transverse colitis no evidence of any consolidation 3patient to continue with Unasyn, awaiting repeat blood culture to finalize to determine discharge antibiotics Ith you Dictation was produced using [email or web address] dictation software. please excuse any grammatical, word or spelling errors. Time with Patient: Less than 30
--- NOTE | 2024-07-02 14:48 | PN ---
PROGRESS NOTE DATE OF SERVICE: 06/30/2024 SUBJECTIVE: This is a 64-year-old woman, who was admitted with significant weakness and weight loss, had a fever also. The patient will be closely monitored. The patient has significant weakness. The patient is slated for CT scan of the abdomen, chest, pelvis. Multiple consultants are following the patient closely. Mild fever at 99.3. PAST MEDICAL HISTORY: Reviewed. REVIEW OF SYSTEMS: Fourteen-point review is negative except as mentioned earlier. CURRENT MEDICATIONS: Reviewed include Unasyn. PHYSICAL EXAMINATION: VITAL SIGNS: Pulse is 96, blood pressure 130/64, respirations 18. CHEST: A few scattered rhonchi and crackles. ABDOMEN: Soft, nontender. LEGS: No edema. NERVOUS SYSTEM: Diffusely weak. LABORATORY DATA: Reviewed. HIV is negative. COVID is negative. ASSESSMENT: 1. Severe weakness and weight loss, rule out internal malignancy. 2. Fever, possible pneumonia. 3. History of atrial fibrillation. 4. Chronic obstructive pulmonary disease. 5. Gait dysfunction. 6. Sepsis ruled out. 7. Hypertension. 8. Hyperlipidemia. 9. Multiple medical issues. RECOMMENDATIONS AND DISCUSSION: I recommend to continue current management and continue symptomatic treatment. Otherwise, PT OT evaluation, antibiotics. CT scan of the abdomen and pelvis. Repeat labs. Empiric antibiotics. Follow the cultures. Closely follow with Infectious Disease, PT/OT evaluation, possible ECF rehab. Further recommendations to follow. MMERONL / JEWELSN: [id number] /
[2024-07-02] MEDS: methylPREDNISolone SOD SUCCI 40 MG/ML 1 ML VIAL IV SCH (20:35)
[2024-07-03] MEDS: ACETAMINOPHEN TAB 325 MG TAB PO PRN (00:04)
--- NOTE | 2024-07-03 08:46 | P.PN ---
Subjective Progress Note Date: 07/02/24 This is a 64-year-old female who was recently admitted for severe weakness. Patient was recently discharged a few weeks ago from [facility] and noted to have increased weakness and diminished p.o. intake with weight loss and inability to care for herself. Multiple consultations following including inf ectious disease and pulmonary Dr. Cortez has been consulted regarding a pulmonary nodule that was noted on imaging. Patient will most likely need outpatient PET scan and further follow-up in the outpatient setting. Patient has an extensive past medical history of coronary artery disease, COPD, GERD, Crohn's, IBS, and chronic pain. Awaiting PT/OT therapy evaluation. Patient was also noted to have a positive blood culture, likely contaminant although repeat blood cultures are ordered and pending. Infectious diseases following. 07/02/2024 Patient is seen and evaluated in follow-up today currently sitting up in the chair and reports to being extremely weak having difficulty ambulating. Patient was noted to have positive blood cultures with Enterococcus with infectious disease following with concerns of inflammatory changes and colitis on CT abdomen. Patient does have a chronic history of Crohn's and IBS and is reporting no pain with eating, no abdominal pain, is having bowel movements that are regular per her. Patient is planning on going to [facility] for continued strength and mobility and has been accepted. Awaiting repeat blood cultures at this time to determine clearance of bacteremia. Will discuss further with infectious disease and micro lab once cultures have finalized. Review of systems: Constitutional: No reports of fatigue, fever, or chills Cardiovascular: No reports of chest pain or palpitations Respiratory: reports of shortness of breath and continued cough which is chronic GI: reports of nausea, no reports of vomiting, reports not much of an ap petite : No reports of dysuria or retention Neurovascular: reports of generalized weakness, inability to ambulate independent and fearful of falling with unsteady gait All medications have been reviewed PHYSICAL EXAMINATION: GENERAL: The patient is alert and oriented x4, Well developed, thin built, cachectic, elderly appearing, ill-appearing HEENT: Pupils are round and equally reacting to light. EOMI. no scleral icterus. No conjunctival pallor. Normocephalic, atraumatic. No pharyngeal erythema. No thyromegaly. CARDIOVASCULAR: S1 and S2 muffled PULMONARY: diminished breath sounds bilaterally with coarse scattered rhonchi noted. ABDOMEN: soft. non tender on exam. Thin. non-distended, normoactive bowel sounds. No palpable organomegaly. MUSCULOSKELETAL: No joint swelling or deformity. Significant muscle wasting noted throughout EXTREMITIES: No cyanosis, clubbing, or pedal edema. NEUROLOGICAL: Gross neurological examination did not reveal any focal deficits. Diffuse weakness SKIN: No rashes. Assessment: Severe weakness and weight loss Fever for evaluation, most likely secondary to inflammatory bowel changes and acute colitis as noted on CT imaging Positive blood cultures, with Enterococcus likely secondary to abdominal source per ID, repeat cultures are pending with infectious disease following History of atrial fibrillation Concerns for aspiration pneumonia per pulmonary Chronic obstructive pulmonary disease, not in exacerbation Gait dysfunction with generalized weakness History of hypertension History of hyperlipidemia History of seizure disorder History of pulmonary nodule on the right, needs outpatient testing and evaluated by pulmonary will likely need PET scan outpatient History of anxiety, bipolar depression History of previous substance abuse with cocaine and THC Severe protein calorie malnutrition with a BMI of 15.8 Continued ongoing nicotine dependence GI prophylaxis DVT prophylaxis Full code Plan: Recommend to continue with current medications and management with infectious disease and pulmonary Dr. Jaun Cortez following. Concerns of a right pulmonary nodule that was found on imaging and will likely need PET scan outpatient and outpatient follow-up. Suggestive of possible pneumonia, concerning for aspiration and is maintained on Unasyn. Per infectious disease, source is likely abdominal as there is inflammatory changes noted in the bowels. Patient does have chronic Crohn's and IBS but is denying any abdominal pain, pain with diet and is tolerating diet. Patient does not eat much on a regular basis and has no real appetite. Dietary on consult Home medications reviewed and resumed as appropriate Awaiting updated PT/OT therapy notes for case management as patient will be going to [facility]. Patient has been accepted although awaiting repeat blood cultures to finalize to monitor for clearance of bacteremia. Initial blood culture showing Enterococcus and patient is maintained on Unasyn with ID following Patient is extremely weak and cachectic and would likely benefit from ECF. Possible discharge in the next few days to [facility] once clearance of bacteremia is reported The impression and plan of care has been dictated by Angelita Diaz, nurse practitioner as directed. Dr. Antonette MOORE I have performed a history and examination and MDM of this patient, discussed the same with the dictator, and agree with the dictator's assessment and plan as written ,documented as a scribe. Based on total visit time, I have performed more than 50% of the visit. Any additional findings or plans will be noted. Objective - Vital Signs Vital signs: Vital Signs Temp 98.2 F 07/02/24 08:00 Pulse 102 H 07/02/24 08:00 Resp 17 07/02/24 08:00 BP 138/78 07/02/24 08:00 Pulse Ox 92 L 07/02/24 08:00 FiO2 Intake & Output 07/01/24 07/02/24 07/02/24 18:59 06:59 18:59 Output Total 750 Balance -750 Weight 47.174 kg Output: Urine 750 Other: Voiding Method External Catheter Bedside Commode # Voids 1 2 # Bowel Movements 1 - Labs CBC & Chem 7: 07/02/24 02:57 07/02/24 02:57 Labs: Abnormal Lab Results - Last 24 Hours (Table) 07/02/24 07/02/24 Range/Units 02:57 02:57 RBC 3.32 L (4.10-5.20) X 10*6/uL Hgb 8.9 L (12.0-15.0) g/dL Hct 28.1 L (37.2-46.3) % MCH 26.8 L (27.0-32.0) pg MCHC 31.7 L (32.0-37.0) g/dL C-Reactive Protein 9.00 H (0.00-0.80) mg/dL Microbiology - Last 24 Hours (Table) 06/29/24 13:39 Blood Culture Gram Stain - Preliminary Blood Blood Culture - Preliminary Enterococcus faecalis Molecular ID
[2024-07-03] MEDS ORDERED: BUPRENORPHINE SUBLINGUAL PRN (15:42)
[2024-07-03] MEDS ORDERED: NALOXONE SUBLINGUAL PRN (15:42)
[2024-07-03] MEDS ORDERED: ALBUTEROL NEBULIZED 2.5 MG/3 ML INHALATION PRN (15:42)
--- NOTE | 2024-07-03 15:44 | P.PN ---
Subjective Progress Note Date: 07/03/24 This is a 64-year-old female who was recently admitted for severe weakness. Patient was recently discharged a few weeks ago from [facility] and noted to have increased weakness and diminished p.o. intake with weight loss and inability to care for herself. Multiple consultations following including infectious disease and pulmonary Dr. Cortez has been consulted regarding a pulmonary nodule that was noted on imaging. Patient will most likely need outpatient PET scan and further follow-up in the outpatient setting. Patient has an extensive past medical history of coronary artery disease, COPD, GERD, Crohn's, IBS, and chronic pain. Awaiting PT/OT therapy evaluation. Patient was also noted to have a positive blood culture, likely contaminant although repeat blood cultures are ordered and pending. Infectious diseases following. 07/02/2024 Patient is seen and evaluated in follow-up today currently sitting up in the chair and reports to being extremely weak having difficulty ambulating. Patient was noted to have positive blood cultures with Enterococcus with infectious disease following with concerns of inflammatory changes and colitis on CT abdomen. Patient does have a chronic history of Crohn's and IBS and is reporting no pain with eating, no abdominal pain, is having bowel movements that are regular per her. Patient is planning on going to [facility] for continued strength and mobility and has been accepted. Awaiting repeat blood cultures at this time to determine clearance of bacteremia. Will discuss further with infectious disease and micro lab once cultures have finalized. 07/03/2024 Patient is on the medical floor she is currently resting in bed not having any significant plaints at this time. She does state that she is getting mildly short of breath when she is up ambulating which is normal for her and uses her inhaler as needed. She is not having abdominal pain or diarrhea. She remains on IV Unasyn for Enterococcus in the blood her repeat blood cultures currently pending at this time. Review of systems: Constitutional: No reports of fatigue, fever, or chills Cardiovascular: No reports of chest pain or palpitations Respiratory: reports of shortness of breath and continued cough which is chronic GI: reports of nausea, no reports of vomiting, reports not much of an appetite : No reports of dysuria or retention Neurovascular: reports of generalized weakness, inability to ambulate independent and fearful of falling with unsteady gait All medications have been reviewed PHYSICAL EXAMINATION: GENERAL: The patient is alert and oriented x4, Well developed, thin built, cachectic, elderly appearing, ill-appearing HEENT: Pupils are round and equally reacting to light. EOMI. no scleral icterus. No conjunctival pallor. Normocephalic, atraumatic. No pharyngeal erythema. No thyromegaly. CARDIOVASCULAR: S1 and S2 muffled PULMONARY: diminished breath sounds bilaterally with coarse scattered rhonchi noted. ABDOMEN: soft. non tender on exam. Thin. non-distended, normoactive bowel sounds. No palpable organomegaly. MUSCULOSKELETAL: No joint swelling or deformity. Significant muscle wasting noted throughout EXTREMITIES: No cyanosis, clubbing, or pedal edema. NEUROLOGICAL: Gross neurological examination did not reveal any focal deficits. Diffuse weakness SKIN: No rashes. Assessment: Severe weakness and weight loss Fever for evaluation, most likely secondary to inflammatory bowel changes and acute colitis as noted on CT imaging Positive blood cultures, with Enterococcus likely secondary to abdominal source per ID, repeat cultures are pending with infectious disease following History of atrial fibrillation Concerns for aspiration pneumonia per pulmonary Chronic obstructive pulmonary disease, not in exacerbation Gait dysfunction with generalized weakness History of hypertension History of hyperlipidemia History of seizure disorder History of pulmonary nodule on the right, needs outpatient testing and evaluated by pulmonary will likely need PET scan outpatient History of anxiety, bipolar depression History of previous substance abuse with cocaine and THC Severe protein calorie malnutrition with a BMI of 15.8 Continued ongoing nicotine dependence GI prophylaxis DVT prophylaxis Full code Plan: Recommend to continue with current medications and management with infectious disease and pulmonary Dr. Jaun Cortez following. Concerns of a right pulmonary nodule that was found on imaging and will likely need PET scan outpatient and outpatient follow-up. Suggestive of possible pneumonia, concerning for aspiration and is maintained on Unasyn. Per infectious disease, source is likely abdominal as there is inflammatory changes noted in the bowels. Patient does have chronic Crohn's and IBS but is denying any abdominal pain, pain with diet and is tolerating diet. Patient does not eat much on a regular basis and has no real appetite. Dietary on consult Home medications reviewed and resumed as appropriate Awaiting updated PT/OT therapy notes for case management as patient will be going to [facility]. Patient has been accepted although awaiting repeat blood cultures to finalize to monitor for clearance of bacteremia. Initial blood culture showing Enterococcus and patient is maintained on Unasyn with ID following Patient is extremely weak and cachectic and would likely benefit from ECF. Possible discharge in the next few days to [facility] once clearance of bacteremia is reported The impression and plan of care has been dictated by Ninoska Dawn Nurse Practitioner as directed. Dr. Antonette MD I have performed a history and physical examination and medical decision making of this patient, discussed the same with the dictator, and agree with the dictators assessment and plan as written, documented as a scribe. Based on total visit time, I have performed more than 50% of this visit. Objective - Vital Signs Vital signs: Vital Signs Temp 98.6 F 07/03/24 13:47 Pulse 103 H 07/03/24 13:47 Resp 20 07/03/24 13:47 BP 175/83 07/03/24 13:47 Pulse Ox 93 L 07/03/24 13:47 FiO2 Intake & Output 07/02/24 07/03/24 07/03/24 18:59 06:59 18:59 Intake Total 440 Balance 440 Intake: Intake, IV Titration 440 Amount Ampicillin-Sulbactam 3 gm 200 In Sodium Chloride 0.9% 100 ml @ 200 mls/hr IVPB Q6HR DEX Rx#:[id number] Sodium Chloride 0.9% 1, 240 000 ml @ 20 mls/hr IV . Q24H DEX Rx#:[id number] Other: Voiding Method Bedside Commode Bedside Commode # Voids 4 - Labs CBC & Chem 7: 07/02/24 02:57 07/02/24 02:57 Labs: Microbiology - Last 24 Hours (Table) 07/02/24 02:57 Blood Culture - Preliminary Blood 06/29/24 13:39 Blood Culture Gram Stain - Final Blood Blood Culture - Final Enterococcus faecalis Molecular ID Assessment and Plan Time with Patient: Less than 30
--- NOTE | 2024-07-03 15:49 | P.PN ---
Subjective Progress Note Date: 07/03/24 Principal diagnosis: Reason for follow-up is fever and Enterococcus bacteremia Patient is a 64-year-old female with a past medical history significant for atrial fibrillation coronary disease COPD hypertension hyperlipidemia CVA TIA seizure disorder patient has been brought into the hospital for evaluation of weakness, patient was febrile on presentation to the hospital chest x-ray with the right lower lobe infiltrate with initial concern for possible pneumonia subsequently blood cultures came back positive with Enterococcus faecalis UA negative. On today's evaluation that is 07/03/2024, Patient is afebrile patient is currently on 2 L nasal cannula oxygen and denies having any shortness of breath, the patient denies any chest pain and had no worsening cough, the patient denies any nausea vomiting did not have any abdominal pain did have some diarrhea. Patient did not have a lab draw today blood culture repeat currently pending Objective - Vital Signs Vital signs: Vital Signs Temp 98.3 F 07/03/24 07:02 Pulse 100 07/03/24 12:27 Resp 18 07/03/24 08:00 BP 120/67 07/03/24 07:02 Pulse Ox 96 07/03/24 08:27 FiO2 Intake & Output 07/02/24 07/03/24 07/03/24 18:59 06:59 18:59 Intake Total 440 Balance 440 Intake: Intake, IV Titration 440 Amount Ampicillin-Sulbactam 3 gm 200 In Sodium Chloride 0.9% 100 ml @ 200 mls/hr IVPB Q6HR DEX Rx#:[id number] Sodium Chloride 0.9% 1, 240 000 ml @ 20 mls/hr IV . Q24H DEX Rx#:[id number] Other: Voiding Method Bedside Commode Bedside Commode # Voids 4 - Exam GENERAL DESCRIPTION: An elderly female lying in bed in no distress RESPIRATORY SYSTEM: Unlabored breathing , decreased breath sounds at bases HEART: S1 S2 regular rate and rhythm , ABDOMEN: Soft , mild lower abdominal tenderness EXTREMITIES: No edema feet - Labs CBC & Chem 7: 07/02/24 02:57 07/02/24 02:57 Labs: Microbiology - Last 24 Hours (Table) 07/02/24 02:57 Blood Culture - Preliminary Blood 06/29/24 13:39 Blood Culture Gram Stain - Final Blood Blood Culture - Final Enterococcus faecalis Molecular ID Assessment and Plan (1) Pneumonia Current Visit: Yes Status: Acute Code(s): J18.9 - PNEUMONIA, UNSPECIFIED ORGANISM SNOMED Code(s): 375301569 (2) Pyrexia Current Visit: No Status: Acute Code(s): R50.9 - FEVER, UNSPECIFIED SNOMED Code(s): 872967258 (3) Enterococcus faecalis infection Current Visit: Yes Status: Acute Code(s): A49.8 - OTHER BACTERIAL INFECTIONS OF UNSPECIFIED SITE SNOMED Code(s): 792315180 (4) Bacteremia Current Visit: Yes Status: Acute Code(s): R78.81 - BACTEREMIA SNOMED Code(s): 0412226 Plan: 1patient presented to hospital with generalized weakness, patient also noted to be febrile with evidence of right lower lobe infiltrate with initial concern for possible right lower lobe pneumonia 2the patient blood cultures currently positive with Enterococcus faecalis, not a common pathogen to cause pneumonia likely abdominal source as urine has been negative, CT abdominal pelvis evidence of descending and transverse colitis no evidence of any consolidation 3patient to continue with Unasyn, blood culture repeat are currently pending if negative may be able to transition to oral antibiotics to finish her course of therapy Dictation was produced using [employer] dictation software. please excuse any grammatical, word or spelling errors. Time with Patient: Less than 30
[2024-07-03] MEDS: RIVAROXABAN 20 MG TAB PO SCH (17:56)
[2024-07-03] MEDS: GABAPENTIN 300 MG CAP PO SCH (19:57)
[2024-07-04] MEDS: FERROUS SULFATE 325 MG TAB PO SCH (08:49)
[2024-07-04] MEDS: METOPROLOL SUCCINATE (ER) 50 MG TAB.ER.24H PO SCH (08:50)
--- NOTE | 2024-07-04 09:51 | P.PN ---
Subjective Progress Note Date: 07/03/24 Principal diagnosis: Enterococcus bacteremia Right-sided pneumonia likely aspiration related involving right lower lobe and posterior segment of right upper lobe, Malignancy less likely but cannot be excluded as nodules are multiple small discrete suggestive of inflammatory process COPD without exacerbation Generalized weakness and medical debility with component of protein calorie malnourishment Inflammatory bowel disease related to Crohn's disease Disorder depression History of atrial fibrillation Hypertension hypertensive cardiovascular disease Dyslipidemia Disorder July 04, 2024, patient seen eval examined during rounds respiratory status slightly improved on 2 L nasal cannula denies any chest pain. Patient is resting no significant pain discomfort, denies any abdominal pain or diarrhea, remains on IV Unasyn for Enterococcus in the blood July 02, 2024, patient seen eval examined during rounds labs reviewed medications reviewed, patient is on 3 L nasal cannula has exertional shortness of breath denies any chest pain, patient remains on IV Unasyn, would recommend bronchodilators and IV steroids and continuation of PT OT as recommended above continue IV Unasyn, continue aspiration precaution 64-year-old female with a history of chronic persistent asthma asthmatic bronchitis and COPD patient has multiple comorbidities presented to hospital with progressive generalized weakness. Patient was discharged about 2 weeks ago to a rehab facility for rehabilitation related to generalized weakness patient noted to have a nodule in the lung asked to evaluate. Admitted chest x-ray significant for mild infiltrate in left lower lobe possible atelectasis versus pneumonia, follow-up chest x-ray continue to show infiltrate involving right middle lobe. CT scan of the chest advanced centrilobular emphysema, focal reticulonodular opacities in right upper lobe posteriorly and right lower lobe some atelectasis and scarring seen in right middle lobe area as well findings are more suggestive of infiltrative infectious process, patient is appropriately being treated with IV Unasyn Other active medical problems include inflammatory bowel disease/Crohn's disease chronic atrial fibrillation, coronary artery disease, COPD, history of CVA/TIA, GERD, dyslipidemia, hypertension hypertensive cardiovascular disease history of pneumonia and seizure disorder syncope Objective - Vital Signs Vital signs: Vital Signs Temp 98.6 F 07/03/24 13:47 Pulse 103 H 07/03/24 13:47 Resp 20 07/03/24 13:47 BP 175/83 07/03/24 13:47 Pulse Ox 93 L 07/03/24 13:47 FiO2 Intake & Output 07/02/24 07/03/24 07/03/24 18:59 06:59 18:59 Intake Total 440 Balance 440 Intake: Intake, IV Titration 440 Amount Ampicillin-Sulbactam 3 gm 200 In Sodium Chloride 0.9% 100 ml @ 200 mls/hr IVPB Q6HR [facility] Rx#:[id number] Sodium Chloride 0.9% 1, 240 000 ml @ 20 mls/hr IV . Q24H [facility] Rx#:[id number] Other: Voiding Method Bedside Commode Bedside Commode # Voids 4 - Exam - Constitutional General appearance: average body habitus, cooperative, disheveled, mild distress - EENT Eyes: PERRLA Ears: bilateral: normal - Neck Neck: normal ROM Carotids: bilateral: upstroke normal Thyroid: bilateral: normal size - Respiratory Respiratory: bilateral: CTA - Cardiovascular Rhythm: regular Heart sounds: normal: S1, S2 - Gastrointestinal General gastrointestinal: soft - Integumentary Integumentary: normal turgor - Neurologic Neurologic: CNII-XII intact - Musculoskeletal Musculoskeletal: gait normal, generalized weakness, strength equal bilaterally - Psychiatric Psychiatric: A&O x's 3, appropriate affect, intact judgment & insight - Labs CBC & Chem 7: 07/02/24 02:57 07/02/24 02:57 Labs: Microbiology - Last 24 Hours (Table) 07/02/24 02:57 Blood Culture - Preliminary Blood 06/29/24 13:39 Blood Culture Gram Stain - Final Blood Blood Culture - Final Enterococcus faecalis Molecular ID Assessment and Plan Assessment: Right-sided pneumonia likely aspiration related involving right lower lobe and posterior segment of right upper lobe, Malignancy less likely but cannot be excluded as nodules are multiple small discrete suggestive of inflammatory process Enterococcus bacteremia infection, continue Unasyn, follow-up on repeat cultures COPD with exacerbation Generalized weakness and medical debility with component of protein calorie malnourishment Inflammatory bowel disease related to Crohn's disease Disorder depression History of atrial fibrillation Hypertension hypertensive cardiovascular disease Dyslipidemia Disorder Plan: Continue IV Unasyn Dilators and IV steroids Commend follow-up on outpatient basis with a PET scan if CT scan continue show infiltrative pattern Increase activity as tolerated Nutritional status, dietitian evaluation Continue antiseizure medications and antidepressant Time with Patient: Greater than 30
--- NOTE | 2024-07-04 09:53 | P.PN ---
Subjective Progress Note Date: 07/04/24 Principal diagnosis: Enterococcus bacteremia Right-sided pneumonia likely aspiration related involving right lower lobe and posterior segment of right upper lobe, Malignancy less likely but cannot be excluded as nodules are multiple small discrete suggestive of inflammatory process COPD without exacerbation Generalized weakness and medical debility with component of protein calorie malnourishment Inflammatory bowel disease related to Crohn's disease Disorder depression History of atrial fibrillation Hypertension hypertensive cardiovascular disease Dyslipidemia Disorder July 04, 2024, patient seen eval examined during rounds labs reviewed medications reviewed care plan discussed with the patient at length, emphasized the need of follow-up CT scan likely as outpatient, patient likely will be placed in ECF, repeat blood culture so far no growth seen June, patient seen eval examined during rounds respiratory status slightly improved on 2 L nasal cannula denies any chest pain. Patient is resting no significant pain discomfort, denies any abdominal pain or diarrhea, remains on IV Unasyn for Enterococcus in the blood July 02, 2024, patient seen eval examined during rounds labs reviewed medications reviewed, patient is on 3 L nasal cannula has exertional shortness of breath denies any chest pain, patient remains on IV Unasyn, would recommend bronchodilators and IV steroids and continuation of PT OT as recommended above continue IV Unasyn, continue aspiration precaution 64-year-old female with a history of chronic persistent asthma asthmatic bronchitis and COPD patient has multiple comorbidities presented to hospital with progressive generalized weakness. Patient was discharged about 2 weeks ago to a rehab facility for rehabilitation related to generalized weakness patient noted to have a nodule in the lung asked to evaluate. Admitted chest x-ray significant for mild infiltrate in left lower lobe possible atelectasis versus pneumonia, follow-up chest x-ray continue to show infiltrate involving right middle lobe. CT scan of the chest advanced centrilobular emphysema, focal reticulonodular opacities in right upper lobe posteriorly and right lower lobe some atelectasis and scarring seen in right middle lobe area as well findings are more suggestive of infiltrative infectious process, patient is appropriately being treated with IV Unasyn Other active medical problems include inflammatory bowel disease/Crohn's disease chronic atrial fibrillation, coronary artery disease, COPD, history of CVA/TIA, GERD, dyslipidemia, hypertension hypertensive cardiovascular disease history of pneumonia and seizure disorder syncope Objective - Vital Signs Vital signs: Vital Signs Temp 97.8 F 07/04/24 07:41 Pulse 93 07/04/24 07:41 Resp 18 07/04/24 07:41 BP 140/81 07/04/24 07:41 Pulse Ox 98 07/04/24 07:41 FiO2 Intake & Output 07/03/24 07/04/24 07/04/24 18:59 06:59 18:59 Other: Voiding Method Bedside Commode Diaper # Voids 3 1 # Bowel Movements 1 - Exam - Constitutional General appearance: average body habitus, cooperative, disheveled, mild distress - EENT Eyes: PERRLA Ears: bilateral: normal - Neck Neck: normal ROM Carotids: bilateral: upstroke normal Thyroid: bilateral: normal size - Respiratory Respiratory: bilateral: CTA - Cardiovascular Rhythm: regular Heart sounds: normal: S1, S2 - Gastrointestinal General gastrointestinal: soft - Integumentary Integumentary: normal turgor - Neurologic Neurologic: CNII-XII intact - Musculoskeletal Musculoskeletal: gait normal, generalized weakness, strength equal bilaterally - Psychiatric Psychiatric: A&O x's 3, appropriate affect, intact judgment & insight - Labs CBC & Chem 7: 07/02/24 02:57 07/02/24 02:57 Labs: Microbiology - Last 24 Hours (Table) 07/02/24 02:57 Blood Culture - Preliminary Blood Assessment and Plan Assessment: Right-sided pneumonia likely aspiration related involving right lower lobe and posterior segment of right upper lobe, Malignancy less likely but cannot be excluded as nodules are multiple small discrete suggestive of inflammatory process Enterococcus bacteremia infection, continue Unasyn, follow-up on repeat cultures COPD with exacerbation Generalized weakness and medical debility with component of protein calorie malnourishment Inflammatory bowel disease related to Crohn's disease Disorder depression History of atrial fibrillation Hypertension hypertensive cardiovascular disease Dyslipidemia Disorder Plan: Continue IV Unasyn Dilators and IV steroids Commend follow-up on outpatient basis with a PET scan if CT scan continue show infiltrative pattern Increase activity as tolerated Nutritional status, dietitian evaluation Continue antiseizure medications and antidepressant Time with Patient: Greater than 30
--- NOTE | 2024-07-04 15:47 | P.PN ---
Subjective Progress Note Date: 07/04/24 This is a 64-year-old female who was recently admitted for severe weakness. Patient was recently discharged a few weeks ago from [facility] and noted to have increased weakness and diminished p.o. intake with weight loss and inability to care for herself. Multiple consultations following including infectious disease and pulmonary Dr. Cortez has been consulted regarding a pulmonary nodule that was noted on imaging. Patient will most likely need outpatient PET scan and further follow-up in the outpatient setting. Patient has an extensive past medical history of coronary artery disease, COPD, GERD, Crohn's, IBS, and chronic pain. Awaiting PT/OT therapy evaluation. Patient was also noted to have a positive blood culture, likely contaminant although repeat blood cultures are ordered and pending. Infectious diseases following. 07/02/2024 Patient is seen and evaluated in follow-up today currently sitting up in the chair and reports to being extremely weak having difficulty ambulating. Patient was noted to have positive blood cultures with Enterococcus with infectious disease following with concerns of inflammatory changes and colitis on CT abdomen. Patient does have a chronic history of Crohn's and IBS and is reporting no pain with eating, no abdominal pain, is having bowel movements that are regular per her. Patient is planning on going to [facility] for continued strength and mobility and has been accepted. Awaiting repeat blood cultures at this time to determine clearance of bacteremia. Will discuss further with infectious disease and micro lab once cultures have finalized. 07/03/2024 Patient is on the medical floor she is currently resting in bed not having any significant plaints at this time. She does state that she is getting mildly short of breath when she is up ambulating which is normal for her and uses her inhaler as needed. She is not having abdominal pain or diarrhea. She remains on IV Unasyn for Enterococcus in the blood her repeat blood cultures currently pending at this time. 07/04/2024 Evaluated patient in follow up today any specific complaints today. She does wear oxygen at 3 continues on breathing treatments here as a as needed inhaler. Speech therapy consulted for evaluation. Aspiration. She remains on IV Unasyn for a Enterococcus bacteremia her repeat blood cultures are negative so far. She remains on IV steroids pulmonary is following closely. Review of systems: Constitutional: No reports of fatigue, fever, or chills Cardiovascular: No reports of chest pain or palpitations Respiratory: reports of shortness of breath and continued cough which is chronic GI: reports of nausea, no reports of vomiting, reports not much of an appetite : No reports of dysuria or retention Neurovascular: reports of generalized weakness, inability to ambulate independent and fearful of falling with unsteady gait All medications have been reviewed PHYSICAL EXAMINATION: GENERAL: The patient is alert and oriented x4, Well developed, thin built, cachectic, elderly appearing, ill-appearing HEENT: Pupils are round and equally reacting to light. EOMI. no scleral icterus. No conjunctival pallor. Normocephalic, atraumatic. No pharyngeal erythema. No thyromegaly. CARDIOVASCULAR: S1 and S2 muffled PULMONARY: diminished breath sounds bilaterally with coarse scattered rhonchi noted. ABDOMEN: soft. non tender on exam. Thin. non-distended, normoactive bowel sounds. No palpable organomegaly. MUSCULOSKELETAL: No joint swelling or deformity. Significant muscle wasting noted throughout EXTREMITIES: No cyanosis, clubbing, or pedal edema. NEUROLOGICAL: Gross neurological examination did not reveal any focal deficits. Diffuse weakness SKIN: No rashes. Assessment: Severe weakness and weight loss Fever for evaluation, most likely secondary to inflammatory bowel changes and acute colitis as noted on CT imaging Positive blood cultures, with Enterococcus likely secondary to abdominal source per ID, repeat cultures are pending with infectious disease following History of atrial fibrillation Concerns for aspiration pneumonia per pulmonary Chronic obstructive pulmonary disease, not in exacerbation Gait dysfunction with generalized weakness History of hypertension History of hyperlipidemia History of seizure disorder History of pulmonary nodule on the right, needs outpatient testing and evaluated by pulmonary will likely need PET scan outpatient History of anxiety, bipolar depression History of previous substance abuse with cocaine and THC Severe protein calorie malnutrition with a BMI of 15.8 Continued ongoing nicotine dependence GI prophylaxis DVT prophylaxis Full code Plan: Recommend to continue with current medications and management with infectious disease and pulmonary Dr. Jaun Cortez following. Concerns of a right pulmonary nodule that was found on imaging and will likely need PET scan outpatient and outpatient follow-up. Suggestive of possible pneumonia, concerning for aspiration and is maintained on Unasyn. Per infectious disease, source is likely abdominal as there is inflammatory changes noted in the bowels. Patient does have chronic Crohn's and IBS but is denying any abdominal pain, pain with diet and is tolerating diet. Patient does not eat much on a regular basis and has no real appetite. Dietary on consult Home medications reviewed and resumed as appropriate Awaiting updated PT/OT therapy notes for case management as patient will be going to [facility]. Patient has been accepted although awaiting repeat blood cultures to finalize to monitor for clearance of bacteremia. Initial blood culture showing Enterococcus and patient is maintained on Unasyn with ID following Patient is extremely weak and cachectic and would likely benefit from ECF. Possible discharge in the next few days to [facility] once clearance of bacteremia is reported The impression and plan of care has been dictated by Ninoska Dawn, Nurse Practitioner as directed. Dr. Antonette MD I have performed a history and physical examination and medical decision making of this patient, discussed the same with the dictator, and agree with the dictators assessment and plan as written, documented as a scribe. Based on total visit time, I have performed more than 50% of this visit. Objective - Vital Signs Vital signs: Vital Signs Temp 97.8 F 07/04/24 07:41 Pulse 93 07/04/24 07:41 Resp 18 07/04/24 07:41 BP 140/81 07/04/24 07:41 Pulse Ox 98 07/04/24 07:41 FiO2 Intake & Output 07/03/24 07/04/24 07/04/24 18:59 06:59 18:59 Other: Voiding Method Bedside Commode Diaper # Voids 3 1 # Bowel Movements 1 - Labs CBC & Chem 7: 07/02/24 02:57 07/02/24 02:57 Labs: Microbiology - Last 24 Hours (Table) 07/02/24 02:57 Blood Culture - Preliminary Blood Assessment and Plan Time with Patient: Less than 30
--- NOTE | 2024-07-04 17:20 | P.PN ---
Subjective Progress Note Date: 07/04/24 Principal diagnosis: Reason for follow-up is fever and Enterococcus bacteremia Patient is a 64-year-old female with a past medical history significant for atrial fibrillation coronary disease COPD hypertension hyperlipidemia CVA TIA seizure disorder patient has been brought into the hospital for evaluation of weakness, patient was febrile on presentation to the hospital chest x-ray with the right lower lobe infiltrate with initial concern for possible pneumonia subsequently blood cultures came back positive with Enterococcus faecalis UA negative. On today's evaluation that is 07/04/2024, patient has been afebrile, patient is breathing comfortably and is currently on room air, patient denies having any significant cough no chest pain shortness of breath, patient denies nausea vomiting or diarrhea and no abdominal pain mention feeling slightly better. No new lab has been repeated today blood culture repeat as of so far negative Objective - Vital Signs Vital signs: Vital Signs Temp 98.7 F 07/04/24 14:00 Pulse 87 07/04/24 14:00 Resp 18 07/04/24 14:00 BP 176/80 07/04/24 14:00 Pulse Ox 93 L 07/04/24 14:00 FiO2 Intake & Output 07/03/24 07/04/24 07/04/24 18:59 06:59 18:59 Other: Voiding Method Bedside Commode Diaper # Voids 3 1 # Bowel Movements 1 - Exam GENERAL DESCRIPTION: An elderly female lying in bed in no distress RESPIRATORY SYSTEM: Unlabored breathing , decreased breath sounds at bases HEART: S1 S2 regular rate and rhythm , ABDOMEN: Soft , mild lower abdominal tenderness EXTREMITIES: No edema feet - Labs CBC & Chem 7: 07/02/24 02:57 07/02/24 02:57 Labs: Microbiology - Last 24 Hours (Table) 07/02/24 02:57 Blood Culture - Preliminary Blood Assessment and Plan (1) Pneumonia Current Visit: Yes Status: Acute Code(s): J18.9 - PNEUMONIA, UNSPECIFIED ORGANISM SNOMED Code(s): 259023368 (2) Pyrexia Current Visit: No Status: Acute Code(s): R50.9 - FEVER, UNSPECIFIED SNOMED Code(s): 481743488 (3) Enterococcus faecalis infection Current Visit: Yes Status: Acute Code(s): A49.8 - OTHER BACTERIAL INFECTIONS OF UNSPECIFIED SITE SNOMED Code(s): 472520774 (4) Bacteremia Current Visit: Yes Status: Acute Code(s): R78.81 - BACTEREMIA SNOMED Code(s): 3897843 Plan: 1patient presented to hospital with generalized weakness, patient also noted to be febrile with evidence of right lower lobe infiltrate with initial concern for possible right lower lobe pneumonia 2the patient blood cultures currently positive with Enterococcus faecalis, not a common pathogen to cause pneumonia likely abdominal source as urine has been negative, CT abdominal pelvis evidence of descending and transverse colitis no evidence of any consolidation 3patient slowly clinically improving patient seem to have clear her bacteremia we will keep the patient on Unasyn while inpatient transition to Augmentin on discharge Dictation was produced using [employer] dictation software. please excuse any grammatical, word or spelling errors. Time with Patient: Less than 30
[2024-07-04] MEDS: ONDANSETRON 4 MG/2 ML VIAL IVP PRN (20:13)
[2024-07-05] MEDS: PROCHLORPERAZINE 5 MG TAB PO PRN (10:50)
[2024-07-05 10:54] LABS: African American GFR (CKD) >90 (>60 ml/min/1.73 sqM); Anion Gap 7 mmol/L; Blood Urea Nitrogen 17 mg/dL (7-17); Calcium 8.7 mg/dL (8.4-10.2); Carbon Dioxide 30 mmol/L (22-30); Chloride 88 mmol/L (98-107); Glucose 111 mg/dL (74-99); Magnesium 1.2 mg/dL (1.6-2.3); Non-African American GFR(CKD) >90 (>60 ml/min/1.73 sqM); Potassium 3.9 mmol/L (3.5-5.1); Sodium 125 mmol/L (137-145)
[2024-07-05] MEDS: SODIUM CHLORIDE 0.9% 1,000 ML IV SCH (13:42)
--- NOTE | 2024-07-05 14:51 | P.PN ---
Subjective Progress Note Date: 07/05/24 Principal diagnosis: Reason for follow-up is fever and Enterococcus bacteremia Patient is a 64-year-old female with a past medical history significant for atrial fibrillation coronary disease COPD hypertension hyperlipidemia CVA TIA seizure disorder patient has been brought into the hospital for evaluation of weakness, patient was febrile on presentation to the hospital chest x-ray with the right lower lobe infiltrate with initial concern for possible pneumonia subsequently blood cultures came back positive with Enterococcus faecalis UA negative. On today's evaluation that is 07/05/2024, Patient is afebrile this morning patient denies having any chest pain shortness of breath or cough, the patient is breathing comfortably on 2 L nasal current oxygen patient be complaining of feeling sick complaining of nausea vomiting and some diarrhea along with abdominal pain. Patient did have a creatinine 0.50 blood culture repeat remains to be negative so far Objective - Vital Signs Vital signs: Vital Signs Temp 99.0 F 07/05/24 11:57 Pulse 95 07/05/24 11:57 Resp 17 07/05/24 11:57 BP 180/112 07/05/24 11:57 Pulse Ox 97 07/05/24 11:57 FiO2 Intake & Output 07/04/24 07/05/24 07/05/24 18:59 06:59 18:59 Other: Voiding Method Bedside Commode Diaper # Voids 1 - Exam GENERAL DESCRIPTION: An elderly female lying in bed in no distress RESPIRATORY SYSTEM: Unlabored breathing , decreased breath sounds at bases HEART: S1 S2 regular rate and rhythm , ABDOMEN: Soft , mild lower abdominal tenderness EXTREMITIES: No edema feet - Labs CBC & Chem 7: 07/02/24 02:57 07/05/24 10:11 Labs: Abnormal Lab Results - Last 24 Hours (Table) 07/05/24 Range/Units 10:11 Sodium 125 L (137-145) mmol/L Chloride 88 L (98-107) mmol/L Creatinine 0.50 L (0.52-1.04) mg/dL Glucose 111 H (74-99) mg/dL Magnesium 1.2 L (1.6-2.3) mg/dL Microbiology - Last 24 Hours (Table) 07/02/24 02:57 Blood Culture - Preliminary Blood Assessment and Plan (1) Pneumonia Current Visit: Yes Status: Acute Code(s): J18.9 - PNEUMONIA, UNSPECIFIED ORGANISM SNOMED Code(s): 980834598 (2) Pyrexia Current Visit: No Status: Acute Code(s): R50.9 - FEVER, UNSPECIFIED SNOMED Code(s): 776374213 (3) Enterococcus faecalis infection Current Visit: Yes Status: Acute Code(s): A49.8 - OTHER BACTERIAL INFECTIONS OF UNSPECIFIED SITE SNOMED Code(s): 665010666 (4) Bacteremia Current Visit: Yes Status: Acute Code(s): R78.81 - BACTEREMIA SNOMED Code(s): 0046722 Plan: 1patient presented to hospital with generalized weakness, patient also noted to be febrile with evidence of right lower lobe infiltrate with initial concern for possible right lower lobe pneumonia 2the patient blood cultures currently positive with Enterococcus faecalis, not a common pathogen to cause pneumonia likely abdominal source as urine has been negative, CT abdominal pelvis evidence of descending and transverse colitis no evidence of any consolidation 3patient is afebrile repeat blood culture remains to be negative source of Enterococcus likely abdominal evidence of colitis has been complaining of more symptoms today if any worsening symptom may benefit from repeat CT for now continue with Unasyn and symptomatic treatment of her nausea vomiting Dictation was produced using [employer] dictation software. please excuse any grammatical, word or spelling errors. Time with Patient: Less than 30
--- NOTE | 2024-07-05 21:03 | P.PN ---
Subjective Progress Note Date: 07/05/24 This is a 64-year-old female who was recently admitted for severe weakness. Patient was recently discharged a few weeks ago from [facility] and noted to have increased weakness and diminished p.o. intake with weight loss and inability to care for herself. Multiple consultations following including infectious disease and pulmonary Dr. Cortez has been consulted regarding a pulmonary nodule that was noted on imaging. Patient will most likely need outpatient PET scan and further follow-up in the outpatient setting. Patient has an extensive past medical history of coronary artery disease, COPD, GERD, Crohn's, IBS, and chronic pain. Awaiting PT/OT therapy evaluation. Patient was also noted to have a positive blood culture, likely contaminant although repeat blood cultures are ordered and pending. Infectious diseases following. 07/02/2024 Patient is seen and evaluated in follow-up today currently sitting up in the chair and reports to being extremely weak having difficulty ambulating. Patient was noted to have positive blood cultures with Enterococcus with infectious disease following with concerns of inflammatory changes and colitis on CT abdomen. Patient does have a chronic history of Crohn's and IBS and is reporting no pain with eating, no abdominal pain, is having bowel movements that are regular per her. Patient is planning on going to [facility] for continued strength and mobility and has been accepted. Awaiting repeat blood cultures at this time to determine clearance of bacteremia. Will discuss further with infectious disease and micro lab once cultures have finalized. 07/03/2024 Patient is on the medical floor she is currently resting in bed not having any significant plaints at this time. She does state that she is getting mildly short of breath when she is up ambulating which is normal for her and uses her inhaler as needed. She is not having abdominal pain or diarrhea. She remains on IV Unasyn for Enterococcus in the blood her repeat blood cultures currently pending at this time. 07/04/2024 Evaluated patient in follow up today any specific complaints today. She does wear oxygen at 3 continues on breathing treatments here as a as needed inhaler. Speech therapy consulted for evaluation. Aspiration. She remains on IV Unasyn for a Enterococcus bacteremia her repeat blood cultures are negative so far. She remains on IV steroids pulmonary is following closely. 07/05/2024 Patient is evaluated today in follow up on the medical floor. Reports increased nausea today and having breakthrough nausea inbetween doses of zofran. Compazine has been added. Patient remains on 3L of oxygen and reports less short of breath now has rescue inhaler placed at the bedside. Remains on IV unasyn for enterococcus bacteremia with repeat blood cultures negative so far. Diarrhea is improving. Sodium level 125 today. Blood pressure also elevated 175/77. Review of systems: Constitutional: No reports of fatigue, fever, or chills Cardiovascular: No reports of chest pain or palpitations Respiratory: reports of shortness of breath and continued cough which is chronic GI: reports of nausea, no reports of vomiting, reports not much of an appetite : No reports of dysuria or retention Neurovascular: reports of generalized weakness, inability to ambulate independent and fearful of falling with unsteady gait All medications have been reviewed PHYSICAL EXAMINATION: GENERAL: The patient is alert and oriented x4, Well developed, thin built, cachectic, elderly appearing, ill-appearing HEENT: Pupils are round and equally reacting to light. EOMI. no scleral icterus. No conjunctival pallor. Normocephalic, atraumatic. No pharyngeal erythema. No thyromegaly. CARDIOVASCULAR: S1 and S2 muffled PULMONARY: diminished breath sounds bilaterally with coarse scattered rhonchi noted. ABDOMEN: soft. non tender on exam. Thin. non-distended, normoactive bowel sounds. No palpable organomegaly. MUSCULOSKELETAL: No joint swelling or deformity. Significant muscle wasting noted throughout EXTREMITIES: No cyanosis, clubbing, or pedal edema. NEUROLOGICAL: Gross neurological examination did not reveal any focal deficits. Diffuse weakness SKIN: No rashes. Assessment: Severe weakness and weight loss Fever for evaluation, most likely secondary to inflammatory bowel changes and acute colitis as noted on CT imaging Positive blood cultures, with Enterococcus likely secondary to abdominal source per ID, repeat cultures are pending with infectious disease following History of atrial fibrillation Concerns for aspiration pneumonia per pulmonary Hypovolemic hyponatremia from poor oral intake. Chronic obstructive pulmonary disease, not in exacerbation Gait dysfunction with generalized weakness History of hypertension History of hyperlipidemia History of seizure disorder History of pulmonary nodule on the right, needs outpatient testing and evaluated by pulmonary will likely need PET scan outpatient History of anxiety, bipolar depression History of previous substance abuse with cocaine and THC Severe protein calorie malnutrition with a BMI of 15.8 Continued ongoing nicotine dependence GI prophylaxis DVT prophylaxis: Anticoagulated with xarelto. Full code Plan: Concerns of a right pulmonary nodule that was found on imaging and will likely need PET scan outpatient and outpatient follow-up. Suggestive of possible pneumonia, concerning for aspiration and is maintained on Unasyn. Per infectious disease, source is likely abdominal as there is inflammatory changes noted in the bowels. Patient does have chronic Crohn's and IBS but is denying any abdominal pain, pain with diet and is tolerating diet. Patient does not eat much on a regular basis and has no real appetite. Dietary on consult Sodium level down to 125 today and this is likely due to poor oral intake and will add normal saline at 75 mls/hr and repeat blood work in the AM. Add compazine for increased nausea and continue with zofran PRN. Awaiting updated PT/OT therapy notes for case management as patient will be going to [facility]. Patient has been accepted although awaiting repeat blood cultures to finalize to monitor for clearance of bacteremia. Initial blood culture showing Enterococcus and patient is maintained on Unasyn with ID following Patient is extremely weak and cachectic and would likely benefit from ECF. Possible discharge in the next few days to [facility] once clearance of bacteremia is reported The impression and plan of care has been dictated by Ninoska Dawn, Nurse Practitioner as directed. Dr. Antonette MD I have performed a history and physical examination and medical decision making of this patient, discussed the same with the dictator, and agree with the dictators assessment and plan as written, documented as a scribe. Based on total visit time, I have performed more than 50% of this visit. Objective - Vital Signs Vital signs: Vital Signs Temp 97.2 F L 07/05/24 07:12 Pulse 103 H 07/05/24 07:12 Resp 18 07/05/24 07:12 BP 175/77 07/05/24 07:12 Pulse Ox 95 07/05/24 07:51 FiO2 Intake & Output 07/04/24 07/05/24 07/05/24 18:59 06:59 18:59 Other: Voiding Method Bedside Commode Diaper # Voids 1 - Labs CBC & Chem 7: 07/02/24 02:57 07/05/24 10:11 Labs: Microbiology - Last 24 Hours (Table) 07/02/24 02:57 Blood Culture - Preliminary Blood Assessment and Plan Time with Patient: Less than 30
[2024-07-05] MEDS: LOSARTAN 25 MG TAB PO SCH (21:13)
[2024-07-06 09:27] LABS: Magnesium 1.6 mg/dL (1.5-2.4)
[2024-07-06 09:31] LABS: Blood Urea Nitrogen 19.1 mg/dL (9.0-27.0); Calcium 8.2 mg/dL (8.7-10.3); Carbon Dioxide 20.4 mmol/L (21.6-31.8); Chloride 96 mmol/L (96-109); Glucose 116 mg/dL (70-110); Potassium 4.4 mmol/L (3.5-5.5); Sodium 131 mmol/L (135-145)
--- NOTE | 2024-07-06 10:26 | P.PN ---
Subjective Progress Note Date: 07/05/24 Principal diagnosis: Enterococcus bacteremia Right-sided pneumonia likely aspiration related involving right lower lobe and posterior segment of right upper lobe, Malignancy less likely but cannot be excluded as nodules are multiple small discrete suggestive of inflammatory process COPD without exacerbation Generalized weakness and medical debility with component of protein calorie malnourishment Inflammatory bowel disease related to Crohn's disease Disorder depression History of atrial fibrillation Hypertension hypertensive cardiovascular disease Dyslipidemia Disorder July 05, 2024, patient seen and examined during rounds labs reviewed medications reviewed care plan discussed, patient is afebrile hemodynamic status stable, 98% on 2 L oxygen labs from yesterday reviewed sodium is down to 125, potassium 3.9 BUN/creatinine 17/0.5 glucose 111 patient remains on IV Unasyn also symptomatic coverage for nausea and vomiting July 04, 2024, patient seen eval examined during rounds labs reviewed medications reviewed care plan discussed with the patient at length, emphasized the need of follow-up CT scan likely as outpatient, patient likely will be plac ed in [facility], repeat blood culture so far no growth seen June, patient seen eval examined during rounds respiratory status slightly improved on 2 L nasal cannula denies any chest pain. Patient is resting no significant pain discomfort, denies any abdominal pain or diarrhea, remains on IV Unasyn for Enterococcus in the blood July 02, 2024, patient seen eval examined during rounds labs reviewed medications reviewed, patient is on 3 L nasal cannula has exertional shortness of breath denies any chest pain, patient remains on IV Unasyn, would recommend bronchodilators and IV steroids and continuation of PT OT as recommended above continue IV Unasyn, continue aspiration precaution 64-year-old female with a history of chronic persistent asthma asthmatic bronchitis and COPD patient has multiple comorbidities presented to hospital with progressive generalized weakness. Patient was discharged about 2 weeks ago to a rehab facility for rehabilitation related to generalized weakness patient noted to have a nodule in the lung asked to evaluate. Admitted chest x-ray significant for mild infiltrate in left lower lobe possible atelectasis versus pneumonia, follow-up chest x-ray continue to show infiltrate involving right middle lobe. CT scan of the chest advanced centrilobular emphysema, focal reticulonodular opacities in right upper lobe posteriorly and right lower lobe some atelectasis and scarring seen in right middle lobe area as well findings are more suggestive of infiltrative infectious process, patient is appropriately being treated with IV Unasyn Other active medical problems include inflammatory bowel disease/Crohn's disease chronic atrial fibrillation, coronary artery disease, COPD, history of CVA/TIA, GERD, dyslipidemia, hypertension hypertensive cardiovascular disease history of pneumonia and seizure disorder syncope Objective - Vital Signs Vital signs: Vital Signs Temp 99.0 F 07/05/24 11:57 Pulse 95 07/05/24 11:57 Resp 17 07/05/24 11:57 BP 180/112 07/05/24 11:57 Pulse Ox 97 07/05/24 11:57 FiO2 Intake & Output 07/04/24 07/05/24 07/05/24 18:59 06:59 18:59 Other: Voiding Method Bedside Commode Bedside Commode Diaper Diaper # Voids 1 2 - Exam - Constitutional General appearance: average body habitus, cooperative, disheveled, mild distress - EENT Eyes: PERRLA Ears: bilateral: normal - Neck Neck: normal ROM Carotids: bilateral: upstroke normal Thyroid: bilateral: normal size - Respiratory Respiratory: bilateral: CTA - Cardiovascular Rhythm: regular Heart sounds: normal: S1, S2 - Gastrointestinal General gastrointestinal: soft - Integumentary Integumentary: normal turgor - Neurologic Neurologic: CNII-XII intact - Musculoskeletal Musculoskeletal: gait normal, generalized weakness, strength equal bilaterally - Psychiatric Psychiatric: A&O x's 3, appropriate affect, intact judgment & insight - Labs CBC & Chem 7: 07/02/24 02:57 07/06/24 05:26 Labs: Abnormal Lab Results - Last 24 Hours (Table) 07/05/24 Range/Units 10:11 Sodium 125 L (137-145) mmol/L Chloride 88 L (98-107) mmol/L Creatinine 0.50 L (0.52-1.04) mg/dL Glucose 111 H (74-99) mg/dL Magnesium 1.2 L (1.6-2.3) mg/dL Microbiology - Last 24 Hours (Table) 07/02/24 02:57 Blood Culture - Preliminary Blood Assessment and Plan Assessment: Right-sided pneumonia likely aspiration related involving right lower lobe and posterior segment of right upper lobe, Malignancy less likely but cannot be excluded as nodules are multiple small discrete suggestive of inflammatory process Enterococcus bacteremia infection, continue Unasyn, follow-up on repeat cultures COPD with exacerbation Generalized weakness and medical debility with component of protein calorie malnourishment Inflammatory bowel disease related to Crohn's disease Disorder depression History of atrial fibrillation Hypertension hypertensive cardiovascular disease Dyslipidemia Disorder Plan: Continue IV Unasyn Dilators and IV steroids Commend follow-up on outpatient basis with a PET scan if CT scan continue show infiltrative pattern Increase activity as tolerated Nutritional status, dietitian evaluation Continue antiseizure medications and antidepressant Time with Patient: Less than 30
--- NOTE | 2024-07-06 10:29 | P.PN ---
Subjective Progress Note Date: 07/06/24 Principal diagnosis: Enterococcus bacteremia Right-sided pneumonia likely aspiration related involving right lower lobe and posterior segment of right upper lobe, Malignancy less likely but cannot be excluded as nodules are multiple small discrete suggestive of inflammatory process COPD without exacerbation Generalized weakness and medical debility with component of protein calorie malnourishment Inflammatory bowel disease related to Crohn's disease Disorder depression History of atrial fibrillation Hypertension hypertensive cardiovascular disease Dyslipidemia Disorder July 06, 2024, patient seen eval examined during rounds labs reviewed medication care plan discussed, respiratory status stable on 2 L oxygen, saturation mid 90s, no fever or chills present, July 05, 2024, patient seen and examined during rounds labs reviewed medications reviewed care plan discussed, patient is afebrile hemodynamic status stable, 98% on 2 L oxygen labs from yesterday reviewed sodium is down to 125, potassium 3.9 BUN/creatinine 17/0.5 glucose 111 patient remains on IV Unasyn also symptomatic coverage for nausea and vomiting July 04, 2024, patient seen eval examined during rounds labs reviewed medications reviewed care plan discussed with the patient at length, emphasized the need of follow-up CT scan likely as outpatient, patient likely will be placed in ECF, repeat blood culture so far no growth seen June, patient seen eval examined during rounds respiratory status slightly improved on 2 L nasal cannula denies any chest pain. Patient is resting no significant pain discomfort, denies any abdominal pain or diarrhea, remains on IV Unasyn for Enterococcus in the blood July 02, 2024, patient seen eval examined during rounds labs reviewed medications reviewed, patient is on 3 L nasal cannula has exertional shortness of breath denies any chest pain, patient remains on IV Unasyn, would recommend bronchodilators and IV steroids and continuation of PT OT as recommended above continue IV Unasyn, continue aspiration precaution 64-year-old female with a history of chronic persistent asthma asthmatic bronchitis and COPD patient has multiple comorbidities presented to hospital with progressive generalized weakness. Patient was discharged about 2 weeks ago to a rehab facility for rehabilitation related to generalized weakness patient noted to have a nodule in the lung asked to evaluate. Admitted chest x-ray significant for mild infiltrate in left lower lobe possible atelectasis versus pneumonia, follow-up chest x-ray continue to show infiltrate involving right middle lobe. CT scan of the chest advanced centrilobular emphysema, focal reticulonodular opacities in right upper lobe posteriorly and right lower lobe some atelectasis and scarring seen in right middle lobe area as well findings are more suggestive of infiltrative infectious process, patient is appropriately being treated with IV Unasyn Other active medical problems include inflammatory bowel disease/Crohn's disease chronic atrial fibrillation, coronary artery disease, COPD, history of CVA/TIA, GERD, dyslipidemia, hypertension hypertensive cardiovascular disease history of pneumonia and seizure disorder syncope Objective - Vital Signs Vital signs: Vital Signs Temp 98.0 F 07/06/24 07:12 Pulse 107 H 07/06/24 07:12 Resp 16 07/06/24 07:12 BP 114/83 07/06/24 07:12 Pulse Ox 98 07/06/24 07:47 FiO2 Intake & Output 07/05/24 07/06/24 07/06/24 18:59 06:59 18:59 Other: Voiding Method Bedside Commode Bedside Commode Diaper Diaper # Voids 0 2 - Exam - Constitutional General appearance: average body habitus, cooperative, disheveled, mild distress - EENT Eyes: PERRLA Ears: bilateral: normal - Neck Neck: normal ROM Carotids: bilateral: upstroke normal Thyroid: bilateral: normal size - Respiratory Respiratory: bilateral: CTA - Cardiovascular Rhythm: regular Heart sounds: normal: S1, S2 - Gastrointestinal General gastrointestinal: soft - Integumentary Integumentary: normal turgor - Neurologic Neurologic: CNII-XII intact - Musculoskeletal Musculoskeletal: gait normal, generalized weakness, strength equal bilaterally - Psychiatric Psychiatric: A&O x's 3, appropriate affect, intact judgment & insight - Labs CBC & Chem 7: 07/02/24 02:57 07/06/24 05:26 Labs: Abnormal Lab Results - Last 24 Hours (Table) 07/05/24 07/06/24 Range/Units 10:11 05:26 Sodium 125 L 131 L (137-145) mmol/L Chloride 88 L (98-107) mmol/L Carbon Dioxide 20.4 L (21.6-31.8) mmol/L Anion Gap 14.60 H (4.00-12.00) mmol/L Creatinine 0.50 L 0.5 L (0.52-1.04) mg/dL BUN/Creatinine Ratio 38.20 H (12.00-20.00) Ratio Glucose 111 H 116 H (74-99) mg/dL Calcium 8.2 L (8.7-10.3) mg/dL Magnesium 1.2 L (1.6-2.3) mg/dL Microbiology - Last 24 Hours (Table) 07/02/24 02:57 Blood Culture - Preliminary Blood Assessment and Plan Assessment: Right-sided pneumonia likely aspiration related involving right lower lobe and posterior segment of right upper lobe, Pulmonary malignancy less likely but cannot be excluded as nodules are multiple small discrete suggestive of inflammatory process Enterococcus bacteremia infection, continue Unasyn, follow-up on repeat cultures CT of the abdominal/pelvis positive for weaver diffuse colitis primary and ID service has been following, patient has a history of inflammatory bowel disease COPD with exacerbation Generalized weakness and medical debility with component of protein calorie ma lnourishment Inflammatory bowel disease related to Crohn's disease Disorder depression History of atrial fibrillation Hypertension hypertensive cardiovascular disease Dyslipidemia Disorder Plan: Continue IV Unasyn Dilators and IV steroids Commend follow-up on outpatient basis with a PET scan if CT scan continue show infiltrative pattern Increase activity as tolerated Nutritional status, dietitian evaluation Continue antiseizure medications and antidepressant Time with Patient: Greater than 30
--- NOTE | 2024-07-06 12:19 | P.PN ---
Subjective Progress Note Date: 07/06/24 Principal diagnosis: Reason for follow-up is fever and Enterococcus bacteremia Patient is a 64-year-old female with a past medical history significant for atrial fibrillation coronary disease COPD hypertension hyperlipidemia CVA TIA seizure disorder patient has been brought into the hospital for evaluation of weakness, patient was febrile on presentation to the hospital chest x-ray with the right lower lobe infiltrate with initial concern for possible pneumonia subsequently blood cultures came back positive with Enterococcus faecalis UA negative. On today's evaluation that is 07/06/2024,the patient denies any fever or any chills, patient is breathing comfortably on 2 L nasal cannula oxygen the patient denies chest pain shortness of breath and no significant cough, patient has been complaining of feeling sick with nausea vomiting abdominal pain and some diarrhea. No CBC was done today creatinine 0.5 blood culture repeat has been negative Objective - Vital Signs Vital signs: Vital Signs Temp 98.0 F 07/06/24 07:12 Pulse 80 07/06/24 11:20 Resp 16 07/06/24 07:12 BP 114/83 07/06/24 07:12 Pulse Ox 98 07/06/24 07:47 FiO2 Intake & Output 07/05/24 07/06/24 07/06/24 18:59 06:59 18:59 Weight 47.174 kg Other: Voiding Method Bedside Commode Bedside Commode Bedside Commode Diaper Diaper Diaper # Voids 0 2 # Bowel Movements 2 - Exam GENERAL DESCRIPTION: An elderly female lying in bed in no distress RESPIRATORY SYSTEM: Unlabored breathing , decreased breath sounds at bases HEART: S1 S2 regular rate and rhythm , ABDOMEN: Soft , mild lower abdominal tenderness EXTREMITIES: No edema feet - Labs CBC & Chem 7: 07/02/24 02:57 07/06/24 05:26 Labs: Abnormal Lab Results - Last 24 Hours (Table) 07/06/24 Range/Units 05:26 Sodium 131 L (135-145) mmol/L Carbon Dioxide 20.4 L (21.6-31.8) mmol/L Anion Gap 14.60 H (4.00-12.00) mmol/L Creatinine 0.5 L (0.6-1.5) mg/dL BUN/Creatinine Ratio 38.20 H (12.00-20.00) Ratio Glucose 116 H (70-110) mg/dL Calcium 8.2 L (8.7-10.3) mg/dL Microbiology - Last 24 Hours (Table) 07/02/24 02:57 Blood Culture - Preliminary Blood Assessment and Plan (1) Pneumonia Current Visit: Yes Status: Acute Code(s): J18.9 - PNEUMONIA, UNSPECIFIED ORGANISM SNOMED Code(s): 100121210 (2) Pyrexia Current Visit: No Status: Acute Code(s): R50.9 - FEVER, UNSPECIFIED SNOMED Code(s): 650862242 (3) Enterococcus faecalis infection Current Visit: Yes Status: Acute Code(s): A49.8 - OTHER BACTERIAL INFECTIONS OF UNSPECIFIED SITE SNOMED Code(s): 228988033 (4) Bacteremia Current Visit: Yes Status: Acute Code(s): R78.81 - BACTEREMIA SNOMED Code(s): 4271113 Plan: 1patient presented to hospital with generalized weakness, patient also noted to be febrile with evidence of right lower lobe infiltrate with initial concern for possible right lower lobe pneumonia 2the patient blood cultures currently positive with Enterococcus faecalis, not a common pathogen to cause pneumonia likely abdominal source as urine has been negative, CT abdominal pelvis evidence of descending and transverse colitis no evidence of any consolidation 3patient is afebrile repeat blood culture remains to be negative source of Enterococcus likely abdominal evidence of colitis, continue with Unasyn while inpatient finishing therapy with oral Augmentin symptomatic treatment of nausea will add Questran for symptomatic relief of diarrhea Dictation was produced using [employer] dictation software. please excuse any gram matical, word or spelling errors. Time with Patient: Less than 30
[2024-07-06] MEDS ORDERED: Magnesium Replacement Protocol 1 EACH MISC MISCELLANE PRN (13:57)
[2024-07-06] MEDS: MAGNESIUM SULFATE-D5W PMX 1 GM in DEXTROSE/WATER 1 100ML.BAG IVPB ONE (14:08)
[2024-07-06] MEDS: CHOLESTYRAMINE (WITH SUGAR) 4 GM PACKET PO SCH (17:32)
--- NOTE | 2024-07-07 04:13 | P.PN ---
Subjective Progress Note Date: 07/06/24 This is a 64-year-old female who was recently admitted for severe weakness. Patient was recently discharged a few weeks ago from [facility] and noted to have increased weakness and diminished p.o. intake with weight loss and inability to care for herself. Multiple consultations following including inf ectious disease and pulmonary Dr. Cortez has been consulted regarding a pulmonary nodule that was noted on imaging. Patient will most likely need outpatient PET scan and further follow-up in the outpatient setting. Patient has an extensive past medical history of coronary artery disease, COPD, GERD, Crohn's, IBS, and chronic pain. Awaiting PT/OT therapy evaluation. Patient was also noted to have a positive blood culture, likely contaminant although repeat blood cultures are ordered and pending. Infectious diseases following. 07/02/2024 Patient is seen and evaluated in follow-up today currently sitting up in the chair and reports to being extremely weak having difficulty ambulating. Patient was noted to have positive blood cultures with Enterococcus with infectious disease following with concerns of inflammatory changes and colitis on CT abdomen. Patient does have a chronic history of Crohn's and IBS and is reporting no pain with eating, no abdominal pain, is having bowel movements that are regular per her. Patient is planning on going to [facility] for continued strength and mobility and has been accepted. Awaiting repeat blood cultures at this time to determine clearance of bacteremia. Will discuss further with infectious disease and micro lab once cultures have finalized. 07/03/2024 Patient is on the medical floor she is currently resting in bed not having any significant plaints at this time. She does state that she is getting mildly short of breath when she is up ambulating which is normal for her and uses her inhaler as needed. She is not having abdominal pain or diarrhea. She remains on IV Unasyn for Enterococcus in the blood her repeat blood cultures currently pending at this time. 07/04/2024 Evaluated patient in follow up today any specific complaints today. She does wear oxygen at 3 continues on breathing treatments here as a as needed inhaler. Speech therapy consulted for evaluation. Aspiration. She remains on IV Unasyn for a Enterococcus bacteremia her repeat blood cultures are negative so far. She remains on IV steroids pulmonary is following closely. 07/05/2024 Patient is evaluated today in follow up on the medical floor. Reports increased nausea today and having breakthrough nausea inbetween doses of zofran. Compazine has been added. Patient remains on 3L of oxygen and reports less short of breath now has rescue inhaler placed at the bedside. Remains on IV unasyn for enterococcus bacteremia with repeat blood cultures negative so far. Diarrhea is improving. Sodium level 125 today. Blood pressure also elevated 175/77. 07/06/2024 Patient is seen and evaluated in follow-up today reports to feeling slightly improved and able to tolerate some oral intake. Patient having occasional nausea but less intense than yesterday. Patient is maintained on IV antibiotics with infectious disease following and will transition to oral antibiotics on discharge as repeat blood culture has been negative. Diarrhea is improving patient is maintained on Questran. Sodium improved at 131 today and will follow-up on repeat labs. Plan is now for patient to go home on discharge and arranging for home care. Encouraged increase activity as tolerated Review of systems: Constitutional: No reports of fatigue, fever, or chills Cardiovascular: No reports of chest pain or palpitations Respiratory: reports of shortness of breath and continued cough which is chronic GI: reports of occasional nausea but improving, no reports of vomiting, reports not much of an appetite : No reports of dysuria or retention Neurovascular: reports of generalized weakness All medications have been reviewed PHYSICAL EXAMINATION: GENERAL: The patient is alert and oriented x4, Well developed, thin built, cachectic, elderly appearing, ill-appearing HEENT: Pupils are round and equally reacting to light. EOMI. no scleral icterus. No conjunctival pallor. Normocephalic, atraumatic. No pharyngeal erythema. No thyromegaly. CARDIOVASCULAR: S1 and S2 muffled PULMONARY: diminished breath sounds bilaterally with coarse scattered rhonchi noted. ABDOMEN: soft. non tender on exam. Thin. non-distended, normoactive bowel sounds. No palpable organomegaly. MUSCULOSKELETAL: No joint swelling or deformity. Significant muscle wasting not ed throughout EXTREMITIES: No cyanosis, clubbing, or pedal edema. NEUROLOGICAL: Gross neurological examination did not reveal any focal deficits. Diffuse weakness SKIN: No rashes. Assessment: Severe weakness and weight loss Fever for evaluation, most likely secondary to inflammatory bowel changes and acute colitis as noted on CT imaging, resolved Positive blood cultures, with Enterococcus likely secondary to abdominal source per ID, repeat cultures are negative with infectious disease following History of atrial fibrillation Concerns for aspiration pneumonia per pulmonary Hypovolemic hyponatremia from poor oral intake. Improved at 131 today Chronic obstructive pulmonary disease, not in exacerbation Gait dysfunction with generalized weakness History of hypertension History of hyperlipidemia History of seizure disorder History of pulmonary nodule on the right, needs outpatient testing and evaluated by pulmonary will likely need PET scan outpatient History of anxiety, bipolar depression History of previous substance abuse with cocaine and THC Severe protein calorie malnutrition with a BMI of 15.8 Continued ongoing nicotine dependence GI prophylaxis DVT prophylaxis: Anticoagulated with xarelto. Full code Plan: Concerns of a right pulmonary nodule that was found on imaging and will likely need PET scan outpatient and outpatient follow-up. Suggestive of possible pneumonia, concerning for aspiration and is maintained on Unasyn. Per infectious disease, source is likely abdominal as there is inflammatory changes noted in the bowels. Patient does have chronic Crohn's and IBS but is denying any abdominal pain, pain with diet and is tolerating diet. Patient does not eat much on a regular basis and has no real appetite. Dietary on consult Sodium level improved at 131 today and this is likely due to poor oral intake and will continue normal saline at 75 mls/hr and repeat blood work in the AM. Continue compazine as needed for increased nausea and continue with zofran PRN. Plans have changed and patient reports she will be going home now as she has her nephew there to assist and will be arranging for home care in the outpatient setting Possible discharge in the next 24 hours to home with home care Given significant comorbidities and noncompliance, patient is extremely high risk of rehospitalization. Patient has had multiple ER visits and hospitalizations. The impression and plan of care has been dictated by Angelita Diaz, nurse practitioner as directed. Dr. Antonette MOORE I have performed a history and examination and MDM of this patient, discussed the same with the dictator, and agree with the dictator's assessment and plan as written ,documented as a scribe. Based on total visit time, I have performed more than 50% of the visit. Any additional findings or plans will be noted. Objective - Vital Signs Vital signs: Vital Signs Temp 98.0 F 07/06/24 07:12 Pulse 107 H 07/06/24 07:12 Resp 16 07/06/24 07:12 BP 114/83 07/06/24 07:12 Pulse Ox 98 07/06/24 07:47 FiO2 Intake & Output 07/05/24 07/06/24 07/06/24 18:59 06:59 18:59 Other: Voiding Method Bedside Commode Bedside Commode Diaper Diaper # Voids 0 2 - Labs CBC & Chem 7: 07/02/24 02:57 07/06/24 05:26 Labs: Abnormal Lab Results - Last 24 Hours (Table) 07/05/24 07/06/24 Range/Units 10:11 05:26 Sodium 125 L 131 L (137-145) mmol/L Chloride 88 L (98-107) mmol/L Carbon Dioxide 20.4 L (21.6-31.8) mmol/L Anion Gap 14.60 H (4.00-12.00) mmol/L Creatinine 0.50 L 0.5 L (0.52-1.04) mg/dL BUN/Creatinine Ratio 38.20 H (12.00-20.00) Ratio Glucose 111 H 116 H (74-99) mg/dL Calcium 8.2 L (8.7-10.3) mg/dL Magnesium 1.2 L (1.6-2.3) mg/dL Microbiology - Last 24 Hours (Table) 07/02/24 02:57 Blood Culture - Preliminary Blood
[2024-07-07 08:40] LABS: Basophils # (A) 0.01 X 10*3/uL (0.00-0.10); Basophils % (A) 0.1 %; Eosinophils # (A) 0 X 10*3/uL (0.04-0.35); Eosinophils % (A) 0 %; HCT 33.1 % (37.2-46.3); HGB 10.9 g/dL (12.0-15.0); Lymphocytes # (A) 2.14 X 10*3/uL (0.90-5.00); Lymphocytes % (A) 20.3 %; MCH 26.4 pg (27.0-32.0); MCHC 32.9 g/dL (32.0-37.0); MCV 80.1 FL (80.0-97.0); Mean Platelet Volume 8.8 FL (9.5-12.2); Monocytes # (A) 1.17 X 10*3/uL (0.20-1.00); Monocytes % (A) 11.1 %; NRBC Per 100 WBC 0 X 10*3/uL (0.00-0.01); Neutrophils # (A) 7.12 X 10*3/uL (1.80-7.70); Neutrophils % (A) 67.6 %; Platelet Count 413 X 10*3/uL (140-440); RBC 4.13 X 10*6/uL (4.10-5.20); RDW 14.5 % (11.5-14.5); WBC 10.53 X 10*3/uL (4.50-10.00)
[2024-07-07 08:47] LABS: BUN/Creat Ratio 40.75 Ratio (12.00-20.00); Blood Urea Nitrogen 16.3 mg/dL (9.0-27.0); Calcium 8.2 mg/dL (8.7-10.3); Carbon Dioxide 26.5 mmol/L (21.6-31.8); Chloride 98 mmol/L (96-109); Glucose 109 mg/dL (70-110); Magnesium 1.8 mg/dL (1.5-2.4); Potassium 3.6 mmol/L (3.5-5.5); Sodium 135 mmol/L (135-145)
--- NOTE | 2024-07-07 10:06 | P.PN ---
Subjective Progress Note Date: 07/07/24 Principal diagnosis: Enterococcus bacteremia Right-sided pneumonia likely aspiration related involving right lower lobe and posterior segment of right upper lobe, Malignancy less likely but cannot be excluded as nodules are multiple small discrete suggestive of inflammatory process COPD without exacerbation Generalized weakness and medical debility with component of protein calorie malnourishment Inflammatory bowel disease related to Crohn's disease Disorder depression History of atrial fibrillation Hypertension hypertensive cardiovascular disease Dyslipidemia Disorder July 07, 2024, patient seen evaluate examined CT scan finding and x-ray findings reviewed with her, patient not feeling well today, has some nausea going on since yesterday week patient room air oxygen saturation is 94% however on 2 L up to 98%, labs from today reviewed white cell count is 10.5 hemoglobin hematocrit 10.9/33 chemistry reviewed BUN is 16 creatinine 0.4. Patient remains on bronchodilators DuoNeb 4 times a day along with IV Unasyn, Solu-Medrol 40 mg IV every 12, patient reportedly being planned for discharge, from pulmonary standpoint she needs to be continued on bronchodilator however IV steroids at the time of discharge can be DC'd and switched to Medrol Dosepak, for abnormal CT scan finding patient advised to follow-up as outpatient currently patient is not a candidate for invasive procedure given poor functional status., It appears that patient likely will not be discharged but rather tomorrow July 06, 2024, patient seen eval examined during rounds labs reviewed medication care plan discussed, respiratory status stable on 2 L oxygen, saturation mid 90s, no fever or chills present, July 05, 2024, patient seen and examined during rounds labs reviewed medications reviewed care plan discussed, patient is afebrile hemodynamic status stable, 98% on 2 L oxygen labs from yesterday reviewed sodium is down to 125, potassium 3.9 BUN/creatinine 17/0.5 glucose 111 patient remains on IV Unasyn also symptomatic coverage for nausea and vomiting July 04, 2024, patient seen eval examined during rounds labs reviewed medications reviewed care plan discussed with the patient at length, emphasized the need of follow-up CT scan likely as outpatient, patient likely will be placed in ECF, repeat blood culture so far no growth seen June, patient seen eval examined during rounds respiratory status slightly improved on 2 L nasal cannula denies any chest pain. Patient is resting no significant pain discomfort, denies any abdominal pain or diarrhea, remains on IV Unasyn for Enterococcus in the blood July 02, 2024, patient seen eval examined during rounds labs reviewed medications reviewed, patient is on 3 L nasal cannula has exertional shortness of breath denies any chest pain, patient remains on IV Unasyn, would recommend bronchodilators and IV steroids and continuation of PT OT as recommended above continue IV Unasyn, continue aspiration precaution 64-year-old female with a history of chronic persistent asthma asthmatic bronchitis and COPD patient has multiple comorbidities presented to hospital with progressive generalized weakness. Patient was discharged about 2 weeks ago to a rehab facility for rehabilitation related to generalized weakness patient noted to have a nodule in the lung asked to evaluate. Admitted chest x-ray significant for mild infiltrate in left lower lobe possible atelectasis versus pneumonia, follow-up chest x-ray continue to show infiltrate involving right middle lobe. CT scan of the chest advanced centrilobular emphysema, focal reticulonodular opacities in right upper lobe posteriorly and right lower lobe some atelectasis and scarring seen in right middle lobe area as well findings are more suggestive of infiltrative infectious process, patient is appropriately being treated with IV Unasyn Other active medical problems include inflammatory bowel disease/Crohn's disease chronic atrial fibrillation, coronary artery disease, COPD, history of CVA/TIA, GERD, dyslipidemia, hypertension hypertensive cardiovascular disease history of pneumonia and seizure disorder syncope Objective - Vital Signs Vital signs: Vital Signs Temp 98.2 F 07/07/24 00:53 Pulse 103 H 07/07/24 00:53 Resp 16 07/07/24 00:53 BP 108/66 07/07/24 00:53 Pulse Ox 98 07/07/24 00:53 FiO2 Intake & Output 07/06/24 07/07/24 07/07/24 18:59 06:59 18:59 Intake Total 975 Output Total 450 Balance 975 -450 Weight 47.174 kg Intake: Intake, IV Titration 975 Amount Ampicillin-Sulbactam 3 gm 200 In Sodium Chloride 0.9% 100 ml @ 200 mls/hr IVPB Q6HR [facility] Rx#:[id number] Magnesium Sulfate-D5w Pmx 100 1 gm In Dextrose/Water 1 100ml.bag @ 100 mls/hr IVPB ONCE ONE Rx#: [id number] Sodium Chloride 0.9% 1, 675 000 ml @ 75 mls/hr IV . [id number] [facility] Rx#:[id number] Output: Urine 450 Other: Voiding Method Bedside Commode Bedside Commode Diaper Diaper # Voids 2 2 # Bowel Movements 2 1 - Exam - Constitutional General appearance: average body habitus, cooperative, disheveled, mild distress - EENT Eyes: PERRLA Ears: bilateral: normal - Neck Neck: normal ROM Carotids: bilateral: upstroke normal Thyroid: bilateral: normal size - Respiratory Respiratory: bilateral: CTA - Cardiovascular Rhythm: regular Heart sounds: normal: S1, S2 - Gastrointestinal General gastrointestinal: soft - Integumentary Integumentary: normal turgor - Neurologic Neurologic: CNII-XII intact - Musculoskeletal Musculoskeletal: gait normal, generalized weakness, strength equal bilaterally - Psychiatric Psychiatric: A&O x's 3, appropriate affect, intact judgment & insight - Labs CBC & Chem 7: 07/07/24 05:11 07/07/24 05:11 Labs: Abnormal Lab Results - Last 24 Hours (Table) 07/06/24 07/07/24 07/07/24 Range/Units 05:26 05:11 05:11 WBC 10.53 H (4.50-10.00) X 10*3/uL Hgb 10.9 L (12.0-15.0) g/dL Hct 33.1 L (37.2-46.3) % MCH 26.4 L (27.0-32.0) pg MPV 8.8 L (9.5-12.2) FL Immature Gran # 0.09 H (0.00-0.04) X 10*3/uL Monocytes # 1.17 H (0.20-1.00) X 10*3/uL Eosinophils # 0 L (0.04-0.35) X 10*3/uL Sodium 131 L (135-145) mmol/L Carbon Dioxide 20.4 L (21.6-31.8) mmol/L Anion Gap 14.60 H (4.00-12.00) mmol/L Creatinine 0.5 L 0.4 L (0.6-1.5) mg/dL BUN/Creatinine Ratio 38.20 H 40.75 H (12.00-20.00) Ratio Glucose 116 H (70-110) mg/dL Calcium 8.2 L 8.2 L (8.7-10.3) mg/dL Assessment and Plan Assessment: Right-sided pneumonia likely aspiration related involving right lower lobe and posterior segment of right upper lobe, Pulmonary malignancy less likely but cannot be excluded as nodules are multiple small discrete suggestive of inflammatory process Enterococcus bacteremia infection, continue Unasyn, follow-up on repeat cultures CT of the abdominal/pelvis positive for weaver diffuse colitis primary and ID service has been following, patient has a history of inflammatory bowel disease COPD with exacerbation Generalized weakness and medical debility with component of protein calorie malnourishment Inflammatory bowel disease related to Crohn's disease Disorder depression History of atrial fibrillation Hypertension hypertensive cardiovascular disease Dyslipidemia Disorder Plan: Continue IV Unasyn, can be changed to oral like Augmentin for another week as outpatient Broncho dilators and IV steroids, IV steroids can be switched to oral at the time of discharge like Medrol Dosepak Commend follow-up on outpatient basis with a PET scan if CT scan continue show infiltrative pattern Increase activity as tolerated Nutritional status, dietitian evaluation Continue antiseizure medications and antidepressant Time with Patient: Greater than 30
[2024-07-07] MEDS: MAGNESIUM SULFATE-D5W PMX 1 GM in DEXTROSE/WATER 1 100ML.BAG IVPB ONE (10:58)
--- NOTE | 2024-07-07 13:08 | P.PN ---
Subjective Progress Note Date: 07/07/24 Principal diagnosis: Reason for follow-up is fever and Enterococcus bacteremia Patient is a 64-year-old female with a past medical history significant for atrial fibrillation coronary disease COPD hypertension hyperlipidemia CVA TIA seizure disorder patient has been brought into the hospital for evaluation of weakness, patient was febrile on presentation to the hospital chest x-ray with the right lower lobe infiltrate with initial concern for possible pneumonia subsequently blood cultures came back positive with Enterococcus faecalis UA negative. On today's evaluation that is 07/07/2024,the patient remains to be afebrile, patient is on room air 2 L nasal cannula supplemental oxygen and denies any shortness of breath no chest pain or any worsening cough.Patient still complaining of nausea vomiting no significant abdominal pain still having some diarrhea. Patient white count is 10.53, creatinine 0.4 blood culture repeat remains to be negative Objective - Vital Signs Vital signs: Vital Signs Temp 98.7 F 07/07/24 07:11 Pulse 100 07/07/24 07:11 Resp 18 07/07/24 08:00 BP 196/89 07/07/24 07:11 Pulse Ox 96 07/07/24 07:11 FiO2 Intake & Output 07/06/24 07/07/24 07/07/24 18:59 06:59 18:59 Intake Total 975 Output Total 450 Balance 975 -450 Weight 47.174 kg Intake: Intake, IV Titration 975 Amount Ampicillin-Sulbactam 3 gm 200 In Sodium Chloride 0.9% 100 ml @ 200 mls/hr IVPB Q6HR [facility] Rx#:[id number] Magnesium Sulfate-D5w Pmx 100 1 gm In Dextrose/Water 1 100ml.bag @ 100 mls/hr IVPB ONCE ONE Rx#: [id number] Sodium Chloride 0.9% 1, 675 000 ml @ 75 mls/hr IV . [id number] [facility] Rx#:[id number] Output: Urine 450 Other: Voiding Method Bedside Commode Bedside Commode Bedside Commode Diaper Diaper Diaper # Voids 2 2 # Bowel Movements 2 1 - Exam GENERAL DESCRIPTION: An elderly female lying in bed in no distress RESPIRATORY SYSTEM: Unlabored breathing , decreased breath sounds at bases HEART: S1 S2 regular rate and rhythm , ABDOMEN: Soft , mild lower abdominal tenderness EXTREMITIES: No edema feet - Labs CBC & Chem 7: 07/07/24 05:11 07/07/24 05:11 Labs: Abnormal Lab Results - Last 24 Hours (Table) 07/07/24 07/07/24 Range/Units 05:11 05:11 WBC 10.53 H (4.50-10.00) X 10*3/uL Hgb 10.9 L (12.0-15.0) g/dL Hct 33.1 L (37.2-46.3) % MCH 26.4 L (27.0-32.0) pg MPV 8.8 L (9.5-12.2) FL Immature Gran # 0.09 H (0.00-0.04) X 10*3/uL Monocytes # 1.17 H (0.20-1.00) X 10*3/uL Eosinophils # 0 L (0.04-0.35) X 10*3/uL Creatinine 0.4 L (0.6-1.5) mg/dL BUN/Creatinine Ratio 40.75 H (12.00-20.00) Ratio Calcium 8.2 L (8.7-10.3) mg/dL Microbiology - Last 24 Hours (Table) 07/02/24 02:57 Blood Culture - Final Blood Assessment and Plan (1) Pneumonia Current Visit: Yes Status: Acute Code(s): J18.9 - PNEUMONIA, UNSPECIFIED ORGANISM SNOMED Code(s): 584598997 (2) Pyrexia Current Visit: No Status: Acute Code(s): R50.9 - FEVER, UNSPECIFIED SNOMED Code(s): 566935659 (3) Enterococcus faecalis infection Current Visit: Yes Status: Acute Code(s): A49.8 - OTHER BACTERIAL INFECTIONS OF UNSPECIFIED SITE SNOMED Code(s): 462924847 (4) Bacteremia Current Visit: Yes Status: Acute Code(s): R78.81 - BACTEREMIA SNOMED Code(s): 4598436 Plan: 1patient presented to hospital with generalized weakness, patient also noted to be febrile with evidence of right lower lobe infiltrate with initial concern for possible right lower lobe pneumonia 2the patient blood cultures currently positive with Enterococcus faecalis, not a common pathogen to cause pneumonia likely abdominal source as urine has been negative, CT abdominal pelvis evidence of descending and transverse colitis no evidence of any consolidation 3patient is afebrile repeat blood culture remains to be negative source of Enterococcus likely abdominal evidence of colitis, 4patient to continue with Unasyn while inpatient finishing therapy with oral Augmentin x 10 days on discharge continue with symptomatic treatment of nausea and Questran for diarrhea Dictation was produced using [employer] dictation software. please excuse any grammatical, word or spelling errors. Time with Patient: Less than 30
--- NOTE | 2024-07-07 14:16 | P.PN ---
Subjective Progress Note Date: 07/07/24 This is a 64-year-old female who was recently admitted for severe weakness. Patient was recently discharged a few weeks ago from [facility] and noted to have increased weakness and diminished p.o. intake with weight loss and inability to care for herself. Multiple consultations following including infectious disease and pulmonary Dr. Cortez has been consulted regarding a pulmonary nodule that was noted on imaging. Patient will most likely need outpatient PET scan and further follow-up in the outpatient setting. Patient has an extensive past medical history of coronary artery disease, COPD, GERD, Crohn's, IBS, and chronic pain. Awaiting PT/OT therapy evaluation. Patient was also noted to have a positive blood culture, likely contaminant although repeat blood cultures are ordered and pending. Infectious diseases following. 07/02/2024 Patient is seen and evaluated in follow-up today currently sitting up in the chair and reports to being extremely weak having difficulty ambulating. Patient was noted to have positive blood cultures with Enterococcus with infectious disease following with concerns of inflammatory changes and colitis on CT abdomen. Patient does have a chronic history of Crohn's and IBS and is reporting no pain with eating, no abdominal pain, is having bowel movements that are regular per her. Patient is planning on going to [facility] for continued strength and mobility and has been accepted. Awaiting repeat blood cultures at this time to determine clearance of bacteremia. Will discuss further with infectious disease and micro lab once cultures have finalized. 07/03/2024 Patient is on the medical floor she is currently resting in bed not having any significant plaints at this time. She does state that she is getting mildly short of breath when she is up ambulating which is normal for her and uses her inhaler as needed. She is not having abdominal pain or diarrhea. She remains on IV Unasyn for Enterococcus in the blood her repeat blood cultures currently pending at this time. 07/04/2024 Evaluated patient in follow up today any specific complaints today. She does wear oxygen at 3 continues on breathing treatments here as a as needed inhaler. Speech therapy consulted for evaluation. Aspiration. She remains on IV Unasyn for a Enterococcus bacteremia her repeat blood cultures are negative so far. She remains on IV steroids pulmonary is following closely. 07/05/2024 Patient is evaluated today in follow up on the medical floor. Reports increased nausea today and having breakthrough nausea inbetween doses of zofran. Compazine has been added. Patient remains on 3L of oxygen and reports less short of breath now has rescue inhaler placed at the bedside. Remains on IV unasyn for enterococcus bacteremia with repeat blood cultures negative so far. Diarrhea is improving. Sodium level 125 today. Blood pressure also elevated 175/77. 07/06/2024 Patient is seen and evaluated in follow-up today reports to feeling slightly improved and able to tolerate some oral intake. Patient having occasional nausea but less intense than yesterday. Patient is maintained on IV antibiotics with infectious disease following and will transition to oral antibiotics on discharge as repeat blood culture has been negative. Diarrhea is improving p atient is maintained on Questran. Sodium improved at 131 today and will follow- up on repeat labs. Plan is now for patient to go home on discharge and arranging for home care. Encouraged increase activity as tolerated 07/07/2024 Is evaluated in follow-up resting in bed. She is having increased diarrhea overnight as well as some nausea and vomiting this morning. She continues on Zofran and Compazine for breakthrough nausea. Has not been able to tolerate much diet today. Her repeat blood cultures have been negative so far she continues on IV Unasyn in the hospital and per ID will continue on a course of oral Augmentin on discharge. She has been started on Questran and continues on IV steroids there was concern for a Crohn's flareup however she has been continued on steroids this entire hospital stay. Labs today show a white blood cell count of 10.53, sodium 135, potassium 3.6, BUN 16.3, creatinine 0.4, magnesium 1.8. Blood pressure 173/84. Review of systems: Constitutional: No reports of fatigue, fever, or chills Cardiovascular: No reports of chest pain or palpitations Respiratory: reports of shortness of breath and continued cough which is chronic GI: reports of nausea, vomiting and diarrhea. : No reports of dysuria or retention Neurovascular: reports of generalized weakness, inability to ambulate independent and fearful of falling with unsteady gait All medications have been reviewed PHYSICAL EXAMINATION: GENERAL: The patient is alert and oriented x4, Well developed, thin built, cachectic, elderly appearing, ill-appearing HEENT: Pupils are round and equally reacting to light. EOMI. no scleral icterus. No conjunctival pallor. Normocephalic, atraumatic. No pharyngeal erythema. No thyromegaly. CARDIOVASCULAR: S1 and S2 muffled PULMONARY: diminished breath sounds bilaterally with coarse scattered rhonchi noted. ABDOMEN: soft. non tender on exam. Thin. non-distended, normoactive bowel sounds. No palpable organomegaly. MUSCULOSKELETAL: No joint swelling or deformity. Significant muscle wasting noted throughout EXTREMITIES: No cyanosis, clubbing, or pedal edema. NEUROLOGICAL: Gross neurological examination did not reveal any focal deficits. Diffuse weakness SKIN: No rashes. Assessment: Severe weakness and weight loss Fever for evaluation, most likely secondary to inflammatory bowel changes and acute colitis as noted on CT imaging Positive blood cultures, with Enterococcus likely secondary to abdominal source per ID, repeat cultures are negative. History of atrial fibrillation Concerns for aspiration pneumonia per pulmonary patient did well on her speech therapy. Hypovolemic hyponatremia from poor oral intake, resolved with IV fluids Chronic obstructive pulmonary disease, not in exacerbation Gait dysfunction with generalized weakness History of hypertension History of hyperlipidemia History of seizure disorder History of pulmonary nodule on the right, needs outpatient testing and evaluated by pulmonary will likely need PET scan outpatient History of anxiety, bipolar depression History of previous substance abuse with cocaine and THC Severe protein calorie malnutrition with a BMI of 15.8 Continued ongoing nicotine dependence GI prophylaxis DVT prophylaxis: Anticoagulated with xarelto. Full code Plan: Concerns of a right pulmonary nodule that was found on imaging and will likely need PET scan outpatient and outpatient follow-up. Suggestive of possible pneumonia, concerning for aspiration and is maintained on Unasyn. Per infectious disease, source is likely abdominal as there is inflammatory changes noted in the bowels. Patient does have chronic Crohn's and IBS but is denying any abdominal pain, pain with diet and is tolerating diet. Patient does not eat much on a regular basis and has no real appetite. Dietary on consult Patient on normal saline at 75 mls/hr and sodium level has normalized. Add compazine for increased nausea and continue with zofran PRN. Patient is now declining Medil[facility] and wants to discharge home. Blood culture repeat is final and negative and ID recommending oral augmentin. Patient is extremely weak and cachectic and would likely benefit from ECF but patient is refusing. Continue on questran, IV steroids, encourage oral intake. Possible DC home in the next 24 hours. The impression and plan of care has been dictated by Ninoska Dawn, Nurse Practitioner as directed. Dr. Antonette MD I have performed a history and physical examination and medical decision making of this patient, discussed the same with the dictator, and agree with the dictators assessment and plan as written, documented as a scribe. Based on total visit time, I have performed more than 50% of this visit. Objective - Vital Signs Vital signs: Vital Signs Temp 98.2 F 07/07/24 00:53 Pulse 103 H 07/07/24 00:53 Resp 16 07/07/24 00:53 BP 108/66 07/07/24 00:53 Pulse Ox 98 07/07/24 00:53 FiO2 Intake & Output 07/06/24 07/07/24 07/07/24 18:59 06:59 18:59 Intake Total 975 Output Total 450 Balance 975 -450 Weight 47.174 kg Intake: Intake, IV Titration 975 Amount Ampicillin-Sulbactam 3 gm 200 In Sodium Chloride 0.9% 100 ml @ 200 mls/hr IVPB Q6HR [facility] Rx#:[id number] Magnesium Sulfate-D5w Pmx 100 1 gm In Dextrose/Water 1 100ml.bag @ 100 mls/hr IVPB ONCE ONE Rx#: [id number] Sodium Chloride 0.9% 1, 675 000 ml @ 75 mls/hr IV . [id number] [facility] Rx#:[id number] Output: Urine 450 Other: Voiding Method Bedside Commode Bedside Commode Diaper Diaper # Voids 2 2 # Bowel Movements 2 1 - Labs CBC & Chem 7: 07/07/24 05:11 07/07/24 05:11 Labs: Abnormal Lab Results - Last 24 Hours (Table) 07/07/24 07/07/24 Range/Units 05:11 05:11 WBC 10.53 H (4.50-10.00) X 10*3/uL Hgb 10.9 L (12.0-15.0) g/dL Hct 33.1 L (37.2-46.3) % MCH 26.4 L (27.0-32.0) pg MPV 8.8 L (9.5-12.2) FL Immature Gran # 0.09 H (0.00-0.04) X 10*3/uL Monocytes # 1.17 H (0.20-1.00) X 10*3/uL Eosinophils # 0 L (0.04-0.35) X 10*3/uL Creatinine 0.4 L (0.6-1.5) mg/dL BUN/Creatinine Ratio 40.75 H (12.00-20.00) Ratio Calcium 8.2 L (8.7-10.3) mg/dL Assessment and Plan Time with Patient: Less than 30
[2024-07-07] MEDS: PANTOPRAZOLE 40 MG/10 ML VIAL IVP SCH (20:44)
[2024-07-07] MEDS: methylPREDNISolone SOD SUCCI 40 MG/ML 1 ML VIAL IV SCH (20:44)
[2024-07-07] MEDS: ONDANSETRON 4 MG/2 ML VIAL IVP PRN (23:35)
[2024-07-08 08:04] VITALS: BP 130/71; RESP 17; TEMP 98.1
[2024-07-08 09:26] VITALS: PULSE 88
--- NOTE | 2024-07-08 11:50 | P.PN ---
Subjective Progress Note Date: 07/08/24 Principal diagnosis: Reason for follow-up is fever and Enterococcus bacteremia Patient is a 64-year-old female with a past medical history significant for atrial fibrillation coronary disease COPD hypertension hyperlipidemia CVA TIA seizure disorder patient has been brought into the hospital for evaluation of weakness, patient was febrile on presentation to the hospital chest x-ray with the right lower lobe infiltrate with initial concern for possible pneumonia subsequently blood cultures came back positive with Enterococcus faecalis UA negative. On today's evaluation that is 07/08/2024, the patient continues to be afebrile, the patient is on 2 L current oxygen and breathing comfortably, the Pt denies having any chest pain or cough, the patient denies having any abdominal pain mentioned improvement in her nausea vomiting tolerated her breakfast this morning diarrhea has slowed down, patient mention feeling better wants to go home. No new lab has been repeated today blood culture repeat on 07/02/2024 has been negative Objective - Vital Signs Vital signs: Vital Signs Temp 98.1 F 07/08/24 08:00 Pulse 88 07/08/24 09:26 Resp 17 07/08/24 08:00 BP 130/71 07/08/24 08:00 Pulse Ox 97 07/08/24 09:16 FiO2 Intake & Output 07/07/24 07/08/24 07/08/24 18:59 06:59 18:59 Intake Total 640 1840 Balance 640 1840 Intake: Intake, IV Titration 1300 Amount Ampicillin-Sulbactam 3 gm 400 In Sodium Chloride 0.9% 100 ml @ 200 mls/hr IVPB Q6HR [facility] Rx#:[id number] Sodium Chloride 0.9% 1, 900 000 ml @ 75 mls/hr IV . [id number] [facility] Rx#:[id number] Oral 640 540 Other: Voiding Method Bedside Commode Bedside Commode Bedside Commode Diaper Diaper Diaper # Voids 3 2 # Bowel Movements 1 1 - Exam GENERAL DESCRIPTION: An elderly female lying in bed in no distress RESPIRATORY SYSTEM: Unlabored breathing , decreased breath sounds at bases HEART: S1 S2 regular rate and rhythm , ABDOMEN: Soft , mild lower abdominal tenderness EXTREMITIES: No edema feet - Labs CBC & Chem 7: 07/07/24 05:11 07/07/24 05:11 Labs: Microbiology - Last 24 Hours (Table) 07/02/24 02:57 Blood Culture - Final Blood Assessment and Plan (1) Pneumonia Current Visit: Yes Status: Acute Code(s): J18.9 - PNEUMONIA, UNSPECIFIED ORGANISM SNOMED Code(s): 731466496 (2) Pyrexia Current Visit: No Status: Acute Code(s): R50.9 - FEVER, UNSPECIFIED SNOMED Code(s): 234851208 (3) Enterococcus faecalis infection Current Visit: Yes Status: Acute Code(s): A49.8 - OTHER BACTERIAL INFECTIONS OF UNSPECIFIED SITE SNOMED Code(s): 595164710 (4) Bacteremia Current Visit: Yes Status: Acute Code(s): R78.81 - BACTEREMIA SNOMED Code(s): 8171064 Plan: 1patient presented to hospital with generalized weakness, patient also noted to be febrile with evidence of right lower lobe infiltrate with initial concern for possible right lower lobe pneumonia 2the patient blood cultures currently positive with Enterococcus faecalis, not a common pathogen to cause pneumonia likely abdominal source as urine has been negative, CT abdominal pelvis evidence of descending and transverse colitis no evidence of any consolidation 3patient is afebrile repeat blood culture from 07/02/2024 remains to be negative source of Enterococcus likely abdominal evidence of colitis, 4patient has received about a week of IV antibiotic from the negative blood culture she will finish therapy with oral Augmentin x 10 days on discharge" outpatient follow-up Dictation was produced using [employer] dictation software. please excuse any grammatical, word or spelling errors. Time with Patient: Less than 30
--- NOTE | 2024-07-13 10:48 | P.DS ---
Providers Date of admission: 06/29/24 16:03 Expected date of discharge: 07/08/24 Attending physician: Buddy Walker Consults: 06/29/24 15:57 Consult Physician Routine Consulting Provider: Jaun Cortez Consult Reason/Comments: lung nodule Do you want consulting provider notified?: Yes Consult Physician Routine Consulting Provider: Margarita Irwin Consult Reason/Comments: fever Do you want consulting provider notified?: Yes Primary care physician: Daksha Steiner [facility] Course: Final diagnosis Severe weakness and weight loss Fever for evaluation, most likely secondary to inflammatory bowel changes and acute colitis as noted on CT imaging Positive blood cultures, with Enterococcus likely secondary to abdominal source per ID, repeat cultures are negative. History of atrial fibrillation Concerns for aspiration pneumonia per pulmonary patient did well on her speech therapy. Hypovolemic hyponatremia from poor oral intake, resolved with IV fluids Chronic obstructive pulmonary disease, not in exacerbation Gait dysfunction with generalized weakness History of hypertension History of hyperlipidemia History of seizure disorder History of pulmonary nodule on the right, needs outpatient testing and evaluated by pulmonary will likely need PET scan outpatient History of anxiety, bipolar depression History of previous substance abuse with cocaine and THC Severe protein calorie malnutrition with a BMI of 15.8 Continued ongoing nicotine dependence GI prophylaxis DVT prophylaxis: Anticoagulated with xarelto. Full code Discharge disposition Patient is being discharged in a stable condition with guarded prognosis to home with home care. Patient will follow-up with Dr. Obi Walker in the outpatient setting upon discharge. Patient reports she is [facility] with [facility] setting. Patient is to continue with oral antibiotics on discharge and outpatient follow-up with GI as well as pulmonary as scheduled. Total time taken is greater than 35 minutes. Hospital course This is a 64-year-old female who was recently admitted with severe weakness and weight loss requesting to go to rehab. Patient had been at [facility] a few weeks ago and went home with no significant improvements with generalized weakness and inability to ambulate. Patient lives at home by herself and occasionally has her family member there for assistance although finds it extremely difficult to perform ADLs. Patient was evaluated by physical therapy recommending rehab and initially patient was agreeable. Patient also noted to have fever with concerns of inflammatory bowel changes with chronic history of Crohn's colitis and IBS. Patient had positive blood cultures with Enterococcus likely abdominal source per ID recommendations. Patient showing improvement and repeat cultures are negative patient also feels better and would like to go home as opposed to going to rehab. Arrangements for home care being set up by case management/social work. Please refer to other consultation notes for further HPI. Of note there are nodules noted in the lungs and patient follows with Dr. Jaun Cortez and will likely need outpatient follow-up and PET scan for further evaluation of these nodules. Abdominal pain has improved and patient is tolerating diet with no worsening diarrhea. Patient reports she chronically has loose stool and has been improving. Patient will continue on a course of oral Augmentin on discharge. Currently no reports of chest pain, shortness of breath, or palpitations. Patient is afebrile. No reports of nausea or vomiting and patient is tolerating diet. Patient will be discharged home today. Guarded prognosis and high risk for readmissions given patient's significant comorbidities and noncompliance outpatient. Physical exam: Gen: This is a 64-year-old female who is awake, alert and oriented x 3, thin built, elderly appearing, ill-appearing HEENT: Head is atraumatic, normocephalic. Pupils equal, round. Sclerae is anicteric. NECK: Supple. No JVD. No lymphadenopathy. No thyromegaly. LUNGS: Diminished breath sounds bilaterally otherwise clear to auscultation. No wheezes noted. Coarse rhonchi noted. No intercostal retractions. HEART: Regular rate and rhythm. No murmur. ABDOMEN: Soft. Thin. Bowel sounds are present. No masses. No tenderness. EXTREMITIES: No pedal edema. No calf tenderness. NEUROLOGICAL: Patient is awake, alert and oriented x3. Cranial nerves 2 through 12 are grossly intact. Please refer to medication reconciliation sheet for a list of medications. The impression and plan of care has been dictated by Angelita Diaz, Nurse Practitioner as directed. Dr. Antonette MD I have performed a history and examination and MDM of this patient, discussed the same with the dictator, and agree with the dictator's assessment and plan as written ,documented as a scribe. Based on total visit time, I have performed more than 50% of the visit. Patient Condition at Discharge: Fair Plan - Discharge Summary New Discharge Prescriptions: New predniSONE See Taper PO DIRECTED #30 tab Cholestyramine (with Sugar) [Questran Packet] 4 gm PO BID@1000,1800 PRN #30 packet PRN Reason: Diarrhea Acetaminophen Tab [Tylenol] 650 mg PO Q6HR PRN tab PRN Reason: Fever And/ Or Pain Prochlorperazine [Compazine] 5 mg PO Q8HR PRN #20 tab PRN Reason: Nausea And Vomiting Losartan [Cozaar] 25 mg PO BID #60 tab Ipratropium-Albuterol Nebulize [Duoneb 0.5 mg-3 mg/3 ml Soln] 3 ml INHALATION RT-QID each Ipratropium-Albuterol Nebulize [Duoneb 0.5 mg-3 mg/3 ml Soln] 3 ml INHALATION RT-Q4H PRN each PRN Reason: Cough Amoxic-Pot Clav 875-125Mg [Augmentin 875-125] 1 tab PO Q12HR 10 Days #20 tab Continue levETIRAcetam [Keppra] 1,000 mg PO BID Metoprolol Succinate (ER) [Toprol XL] 50 mg PO DAILY Rivaroxaban [Xarelto] 20 mg PO DAILY Buprenorphine/Naloxone 8Mg/2Mg [Suboxone 8-2Mg Film] 1 film SL DAILY PRN PRN Reason: cravings QUEtiapine FUMARATE [SEROquel] 400 mg PO HS Loperamide [Imodium] 2 mg PO QID PRN PRN Reason: Diarrhea Albuterol Sulfate [Albuterol Sulfate Hfa] 2 puff INHALATION RT-Q6H PRN #1 each PRN Reason: Shortness Of Breath Pantoprazole [Protonix] 40 mg PO DAILY Gabapentin [Neurontin] 300 mg PO BID Glycopyrrolate/Formoterol Fum [Bevespi Aerosphere Inhaler] 1 puff INHALATION RT-DAILY Ferrous Sulfate [Iron (65 MG Elemental)] 325 mg PO DAILY Discharge Medication List Albuterol Sulfate [Albuterol Sulfate Hfa] 2 puff INHALATION RT-Q6H PRN #1 each 10/04/22 [Rx] levETIRAcetam [Keppra] 1,000 mg PO BID 03/20/23 [History] Metoprolol Succinate (ER) [Toprol XL] 50 mg PO DAILY 06/21/23 [History] Rivaroxaban [Xarelto] 20 mg PO DAILY 06/21/23 [History] Buprenorphine/Naloxone 8Mg/2Mg [Suboxone 8-2Mg Film] 1 film SL DAILY PRN 03/05/24 [History] Pantoprazole [Protonix] 40 mg PO DAILY 03/21/24 [History] Gabapentin [Neurontin] 300 mg PO BID 04/15/24 [History] Glycopyrrolate/Formoterol Fum [Bevespi Aerosphere Inhaler] 1 puff INHALATION RT- DAILY 04/15/24 [History] Ferrous Sulfate [Iron (65 MG Elemental)] 325 mg PO DAILY 06/29/24 [History] Loperamide [Imodium] 2 mg PO QID PRN 06/29/24 [History] QUEtiapine FUMARATE [SEROquel] 400 mg PO HS 06/29/24 [History] Acetaminophen Tab [Tylenol] 650 mg PO Q6HR PRN tab 07/08/24 [Rx] Amoxic-Pot Clav 875-125Mg [Augmentin 875-125] 1 tab PO Q12HR 10 Days #20 tab 07/08/24 [Rx] Cholestyramine (with Sugar) [Questran Packet] 4 gm PO BID@1000,1800 PRN #30 packet 07/08/24 [Rx] Ipratropium-Albuterol Nebulize [Duoneb 0.5 mg-3 mg/3 ml Soln] 3 ml INHALATION RT-Q4H PRN each 07/08/24 [Rx] Ipratropium-Albuterol Nebulize [Duoneb 0.5 mg-3 mg/3 ml Soln] 3 ml INHALATION RT-QID each 07/08/24 [Rx] Losartan [Cozaar] 25 mg PO BID #60 tab 07/08/24 [Rx] Prochlorperazine [Compazine] 5 mg PO Q8HR PRN #20 tab 07/08/24 [Rx] predniSONE See Taper PO DIRECTED #30 tab 07/08/24 [Rx] Follow up Appointment(s)/Referral(s): [facility], [NON-STAFF] - 1 Week Daksha Steiner MD [Primary Care Provider] - 1-2 days Jaun Cortez MD [STAFF PHYSICIAN] - 1 Week Patient Instructions/Handouts: Prochlorperazine (By mouth), Cholestyramine (By mouth), Prednisone (By mouth), Amoxicillin/Clavulanate Potassium (By mouth), Losartan (By mouth), Pneumonia (DC), Bacteremia (DC) Activity/Diet/Wound Care/Special Instructions: patients home meds in pharmacy.Inventory: xarelto, ferrous sulfate x2 bottles, prednisone x2 bottles, keppra x 2 bottles, metropolol, imodium, unlabled bottle, gabapentin, suboxine, seroquel, prilosec, & albuterol inhaler x 4. Serial number:[id number] Activity limited until follow-up Follow-up with primary care provider on discharge Follow-up with [facility] as you have previously scheduled Follow-up with pulmonary outpatient and discuss PET scan and outpatient testing Continue on antibiotics for 10 days per ID recommendations Discharge Disposition: HOME WITH HOME HEALTH SERVICES
== END 2024-07-08 13:47 | disposition home health service (06) | DRG 193 ==
LOC: EC 12:03 → 4SSUR 16:03 → 5NMEDONC 07-04 18:17
PROVIDERS: ADMIT Hospitalist; ATTEND Hospitalist
PROC: 05HC33Z Insertion of Infusion Device into Left Basilic Vein, Percutaneous Approach (ICD-10-PCS; principal; 2024-07-03 23:00)
DX: J18.9 Pneumonia, unspecified organism (principal); E43 Unspecified severe protein-calorie malnutrition; I48.20 Chronic atrial fibrillation, unspecified; Z68.1 Body mass index [BMI] 19.9 or less, adult; E87.1 Hypo-osmolality and hyponatremia; F31.30 Bipolar disorder, current episode depressed, mild or moderate severity, unspecified; J44.1 Chronic obstructive pulmonary disease with (acute) exacerbation; K50.10 Crohn's disease of large intestine without complications; R78.81 Bacteremia; I69.351 Hemiplegia and hemiparesis following cerebral infarction affecting right dominant side; I10 Essential (primary) hypertension; I69.398 Other sequelae of cerebral infarction; B95.2 Enterococcus as the cause of diseases classified elsewhere; J43.2 Centrilobular emphysema; J69.0 Pneumonitis due to inhalation of food and vomit; Z79.01 Long term (current) use of anticoagulants; E78.5 Hyperlipidemia, unspecified; F17.210 Nicotine dependence, cigarettes, uncomplicated; I25.10 Atherosclerotic heart disease of native coronary artery without angina pectoris; E86.1 Hypovolemia; F41.9 Anxiety disorder, unspecified; G40.909 Epilepsy, unspecified, not intractable, without status epilepticus; Z79.899 Other long term (current) drug therapy; Z82.49 Family history of ischemic heart disease and other diseases of the circulatory system; Z87.01 Personal history of pneumonia (recurrent); Z91.199 Patient's noncompliance with other medical treatment and regimen due to unspecified reason; Z83.3 Family history of diabetes mellitus; Z88.1 Allergy status to other antibiotic agents; Z88.8 Allergy status to other drugs, medicaments and biological substances; Z86.59 Personal history of other mental and behavioral disorders
CPT/HCPCS: 36410; 36415; 71045; 71046; 71250; 74176; 76937; 80048; 80053; 81003; 83605; 83735; 85025; 85610; 85652; 85730; 86140; 87040; 87077; 87186; 87390; 87449; 87636; 93005; 94640; 94760; 96365; 96372; 96375; 96376; 99285

== ENCOUNTER 2024-08-27 09:04 | Inpatient (IN) | payer MEDICARE, OTHER ==
[2024-08-27] MEDS: methylPREDNISolone SOD SUCCI 125 MG/2 ML VIAL IV STA (10:00)
[2024-08-27] MEDS: SODIUM CHLORIDE 0.9% 500 ML 500 ML IV STA (10:01)
[2024-08-27] MEDS: cefTRIAXone IN SWFI 1,000 MG/10 ML SYRINGE IVP STA ×2 (10:02)
[2024-08-27 10:05] LABS: Basophils % (A) 0 %; Eosinophils # (A) 0.4 k/uL (0-0.7); Eosinophils % (A) 4 %; HCT 36.2 % (34.0-46.0); HGB 11.4 gm/dL (11.4-16.0); Lymphocytes # (A) 2.2 k/uL (1.0-4.8); Lymphocytes % (A) 22 %; MCH 26.9 pg (25.0-35.0); MCHC 31.4 g/dL (31.0-37.0); MCV 85.9 fL (80.0-100.0); Mean Platelet Volume 6.9; Monocytes # (A) 0.6 k/uL (0-1.0); Monocytes % (A) 6 %; Neutrophils # (A) 6.4 k/uL (1.3-7.7); Neutrophils % (A) 66 %; Platelet Count 270 k/uL (150-450); RBC 4.22 m/uL (3.80-5.40); RDW 14.8 % (11.5-15.5); WBC 9.8 k/uL (3.8-10.6)
[2024-08-27 10:17] LABS: ALT 13 U/L (4-34); AST 34 U/L (14-36); African American GFR (CKD) >90 (>60 ml/min/1.73 sqM); Albumin 4.2 g/dL (3.5-5.0); Alkaline Phosphatase 71 U/L (38-126); Anion Gap 3 mmol/L; Blood Urea Nitrogen 5 mg/dL (7-17); Calcium 8.8 mg/dL (8.4-10.2); Carbon Dioxide 37 mmol/L (22-30); Chloride 95 mmol/L (98-107); Glucose 129 mg/dL (74-99); Magnesium 1.6 mg/dL (1.6-2.3); Non-African American GFR(CKD) >90 (>60 ml/min/1.73 sqM); Sodium 135 mmol/L (137-145); Total Bilirubin 0.6 mg/dL (0.2-1.3); Total Protein 7.4 g/dL (6.3-8.2)
--- NOTE | 2024-08-27 10:25 | XR ---
EXAMINATION TYPE: XR chest 2V DATE OF EXAM: 08/27/2024 CLINICAL HISTORY: Difficulty in breathing TECHNIQUE: Frontal and lateral views of the chest are obtained. COMPARISON: 06/30/2024 FINDINGS: Increased density right middle lobe on the lateral projection reflect atelectasis or develo ping infiltrate. Correlate clinically. Hyperinflation compatible with COPD. The cardiac silhouette si ze is within normal limits. The osseous structures are intact. IMPRESSION: Increased density right middle lobe on the lateral projection reflect atelectasis or dev eloping infiltrate. Correlate clinically. [facility], , 08/27/2024 10:23 AM
[2024-08-27 10:31] LABS: INR 0.8 (<1.2); Prothrombin Time 9.4 sec (10.0-12.5)
[2024-08-27] MEDS: IPRATROPIUM 0.5 MG/2.5 ML NEBU INHALATION STA (10:42)
[2024-08-27] MEDS: ALBUTEROL NEBULIZED 2.5 MG/3 ML INHALATION STA (10:42)
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
[2024-08-27] MEDS ORDERED: NALOXONE 0.4 MG/ML 1 ML VIAL IVP PRN (11:06)
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
[2024-08-27] MEDS ORDERED: methylPREDNISolone SOD SUCCI 125 MG/2 ML VIAL IV SCH (12:00)
[2024-08-27] MEDS: IPRATROPIUM-ALBUTEROL 3 ML NEB INHALATION SCH (12:49)
[2024-08-27] MEDS: IPRATROPIUM-ALBUTEROL 3 ML NEB INHALATION PRN (17:51)
[2024-08-27] MEDS ORDERED: PATIENT'S OWN (Buprenorphine/Naloxone 8mg/2mg 1 EACH Film) SUBLINGUAL PRN (18:33)
[2024-08-27] MEDS ORDERED: IPRATROPIUM-ALBUTEROL 3 ML NEB INHALATION PRN (18:33)
[2024-08-27] MEDS ORDERED: ALBUTEROL NEBULIZED 2.5 MG/3 ML INHALATION PRN (18:33)
[2024-08-27] MEDS ORDERED: ONDANSETRON 4 MG TAB PO PRN (18:33)
[2024-08-27] MEDS: GABAPENTIN 300 MG CAP PO SCH (20:36)
[2024-08-27] MEDS: MONTELUKAST 10 MG TAB PO SCH (20:36)
[2024-08-27] MEDS: levETIRAcetam 500 MG TAB PO SCH (20:36)
[2024-08-27] MEDS: AMOXIC-POT CLAV 875-125MG 1 EACH TAB PO SCH (20:36)
[2024-08-27] MEDS: QUEtiapine 200 MG TAB PO SCH (20:37)
[2024-08-27] MEDS: BUPRENORPHINE-NALOX 8-2 MG TAB 1 EACH TAB.SUBL SL PRN (20:37)
[2024-08-27] MEDS: methylPREDNISolone SOD SUCCI 125 MG/2 ML VIAL IV SCH (20:37)
[2024-08-28] MEDS: PANTOPRAZOLE 40 MG TABLET PO SCH (08:51)
[2024-08-28] MEDS: METOPROLOL SUCCINATE (ER) 100 MG TAB.ER.24H PO SCH (08:52)
[2024-08-28] MEDS: FERROUS SULFATE 325 MG TAB PO SCH (08:52)
[2024-08-28 13:29] VITALS: BMI 18.2
[2024-08-28] MEDS: ACETAMINOPHEN TAB 500 MG TAB PO PRN (15:34)
--- NOTE | 2024-08-28 16:04 | P.PN ---
Subjective Progress Note Date: 08/28/24 64-year-old female with known history of COPD, continues to smoke 10 to 20 cigarettes a day, uses oxygen to 2 and half liters at home came in with complaints of severe shortness of breath cough with clear sputum production chest x-ray showed mild infiltrate in the left lower lobe but this was present during her last admission and last chest x-ray this appears to be mostly atelectasis low suspicion for pneumonia patient may have bronchitis. Patient also follows with pulmonary for a pulmonary nodule which was believed to be mostly inflammatory rather than malignant. Patient although is malnourished from her COPD. Does not have any leukocytosis fever 08/28/2024 Patient is evaluated in follow-up the emergency room still pending a bed on the medical floor. She continues to report significant cough with sputum production as well as shortness of breath. She is continued on the oxygen with saturations of 99%. She has congested on examination and continues to require around the clock breathing treatments. She is also reporting back pain this appears to be chronic in nature she is requesting IV pain medication states that she uses something like a Reading at home however does not appear to prescribe this medication and she does have a contract for Suboxone which she is getting on an outpatient basis. This has been resumed here we will also add IV Toradol. Review of Systems Constitutional: Denied any fatigue denied any fever. Cardio vascular: denied any chest pain, palpitations Gastrointestinal: denied any nausea, vomiting, diarrhea Pulmonary: Denied any shortness of breath cough Neurologic denied any new focal deficits All inpatient medications were reviewed and appropriate changes in these medications as dictated in the interval history and assessment and plan. PHYSICAL EXAMINATION: GENERAL: The patient is alert and oriented x3, not in any acute distress. Thin built female HEENT: Pupils are round and equally reacting to light. EOMI. No scleral icterus. No conjunctival pallor. Normocephalic, atraumatic. No pharyngeal erythema. No thyromegaly. CARDIOVASCULAR: S1 and S2 present. No murmurs, rubs, or gallops. PULMONARY: Bilateral rhonchi and wheezing expiratory ABDOMEN: Soft, nontender, nondistended, normoactive bowel sounds. No palpable organomegaly. MUSCULOSKELETAL: No joint swelling or deformity. EXTREMITIES: No cyanosis, clubbing, or pedal edema. NEUROLOGICAL: Gross neurological examination did not reveal any focal deficits. SKIN: No rashes. Assessment and plan -Acute on chronic hypercapnic hypoxic and hypercapnic respiratory failure secon shantel to COPD exacerbation patient will continue with systemic steroids and nasal treatments patient is on Augmentin for bronchitis which will be continued -Atrial fibrillation presently sinus rhythm rate controlled patient will be resumed on metoprolol and Xarelto for anticoagulation -Hyperlipidemia -Hypertension -Seizure disorder for which patient is on levetiracetam which will be continued -Mild to moderate protein calorie malnutrition -Depression For above-mentioned chronic medical problems patient will be resumed on appropriate home medications DVT prophylaxis: On Xarelto The impression and plan of care has been dictated by Ninoska Dawn Nurse Practitioner as directed. Dr. Antonette MD I have performed a history and physical examination and medical decision making of this patient, discussed the same with the dictator, and agree with the dictators assessment and plan as written, documented as a scribe. Based on total visit time, I have performed more than 50% of this visit. Objective - Vital Signs Vital signs: Vital Signs Temp 98.2 F 08/27/24 18:10 Pulse 96 08/28/24 15:34 Resp 17 08/28/24 12:40 BP 117/76 08/28/24 12:40 Pulse Ox 99 08/28/24 12:40 FiO2 Intake & Output 08/27/24 08/28/24 08/28/24 18:59 06:59 18:59 Weight 54.431 kg 54.431 kg - Labs CBC & Chem 7: 08/27/24 09:45 08/27/24 09:45 Assessment and Plan Time with Patient: Less than 30
[2024-08-28] MEDS: RIVAROXABAN 20 MG TAB PO SCH (19:06)
[2024-08-28] MEDS: BUPRENORPHINE-NALOX 8-2 MG TAB 1 EACH TAB.SUBL SL SCH (22:03)
[2024-08-28] MEDS: KETOROLAC 15 MG/ML 1 ML VIAL IVP PRN (22:08)
--- NOTE | 2024-08-29 13:07 | P.PN ---
Subjective Progress Note Date: 08/29/24 64-year-old female with known history of COPD, continues to smoke 10 to 20 cigarettes a day, uses oxygen to 2 and half liters at home came in with complaints of severe shortness of breath cough with clear sputum production chest x-ray showed mild infiltrate in the left lower lobe but this was present during her last admission and last chest x-ray this appears to be mostly atelectasis low suspicion for pneumonia patient may have bronchitis. Patient also follows with pulmonary for a pulmonary nodule which was believed to be mostly inflammatory rather than malignant. Patient although is malnourished from her COPD. Does not have any leukocytosis fever 08/28/2024 Patient is evaluated in follow-up the emergency room still pending a bed on the medical floor. She continues to report significant cough with sputum production as well as shortness of breath. She is continued on the oxygen with saturations of 99%. She has congested on examination and continues to require around the clock breathing treatments. She is also reporting back pain this appears to be chronic in nature she is requesting IV pain medication states that she uses something like a Ada at home however does not appear to prescribe this medication and she does have a contract for Suboxone which she is getting on an outpatient basis. This has been resumed here we will also add IV Toradol. 08/29/2024 Patient evaluated today in follow-up she is currently now in a bed on the medical floor. She does continue to report significant cough reporting feeling less short of breath. She is quite wheezy continues on IV Solu-Medrol oral Augmentin. She was continued on at Tylenol as well as IV Toradol for her back p ain and she does report improvement in her pain today. Will add Mucinex and likely can be discharged home tomorrow Review of Systems Constitutional: Denied any fatigue denied any fever. Cardio vascular: denied any chest pain, palpitations Gastrointestinal: denied any nausea, vomiting, diarrhea Pulmonary: Denied any shortness of breath cough Neurologic denied any new focal deficits All inpatient medications were reviewed and appropriate changes in these medications as dictated in the interval history and assessment and plan. PHYSICAL EXAMINATION: GENERAL: The patient is alert and oriented x3, not in any acute distress. Thin built female HEENT: Pupils are round and equally reacting to light. EOMI. No scleral icterus. No conjunctival pallor. Normocephalic, atraumatic. No pharyngeal erythema. No thyromegaly. CARDIOVASCULAR: S1 and S2 present. No murmurs, rubs, or gallops. PULMONARY: Bilateral rhonchi and wheezing expiratory ABDOMEN: Soft, nontender, nondistended, normoactive bowel sounds. No palpable organomegaly. MUSCULOSKELETAL: No joint swelling or deformity. EXTREMITIES: No cyanosis, clubbing, or pedal edema. NEUROLOGICAL: Gross neurological examination did not reveal any focal deficits. SKIN: No rashes. Assessment and plan -Acute on chronic hypercapnic hypoxic and hypercapnic respiratory failure secondary to COPD exacerbation patient will continue with systemic steroids and nasal treatments patient is on Augmentin for bronchitis which will be continued -Atrial fibrillation presently sinus rhythm rate controlled patient will be resumed on metoprolol and Xarelto for anticoagulation -Hyperlipidemia -Hypertension -Seizure disorder for which patient is on levetiracetam which will be continued -Mild to moderate protein calorie malnutrition -Depression For above-mentioned chronic medical problems patient will be resumed on appropriate home medications DVT prophylaxis: On Xarelto The impression and plan of care has been dictated by Nurse Catracho Ballard as directed. Dr. Antonette MD I have performed a history and physical examination and medical decision making of this patient, discussed the same with the dictator, and agree with the dict ators assessment and plan as written, documented as a scribe. Based on total visit time, I have performed more than 50% of this visit. Objective - Vital Signs Vital signs: Vital Signs Temp 98.1 F 08/29/24 06:50 Pulse 89 08/29/24 12:23 Resp 17 08/29/24 06:50 BP 102/58 08/29/24 09:40 Pulse Ox 96 08/29/24 06:50 FiO2 Intake & Output 08/28/24 08/29/24 08/29/24 18:59 06:59 18:59 Weight 54.431 kg Other: Voiding Method Toilet Bedside Commode # Voids 1 1 - Labs CBC & Chem 7: 08/27/24 09:45 08/27/24 09:45 Labs: Microbiology - Last 24 Hours (Table) 08/27/24 09:00 Blood Culture - Preliminary Blood Assessment and Plan Time with Patient: Less than 30
[2024-08-29] MEDS: guaiFENesin 600 MG TABLET.ER PO SCH (13:23)
[2024-08-30 10:51] LABS: BUN/Creat Ratio 30.33 Ratio (12.00-20.00); Blood Urea Nitrogen 18.2 mg/dL (9.0-27.0); Calcium 8.2 mg/dL (8.7-10.3); Carbon Dioxide 26.1 mmol/L (21.6-31.8); Chloride 98 mmol/L (96-109); Glucose 129 mg/dL (70-110); Potassium 5.3 mmol/L (3.5-5.5); Sodium 135 mmol/L (135-145)
--- NOTE | 2024-08-30 13:52 | P.PN ---
Subjective Progress Note Date: 08/30/24 64-year-old female with known history of COPD, continues to smoke 10 to 20 cigarettes a day, uses oxygen to 2 and half liters at home came in with complaints of severe shortness of breath cough with clear sputum production chest x-ray showed mild infiltrate in the left lower lobe but this was present during her last admission and last chest x-ray this appears to be mostly atelectasis low suspicion for pneumonia patient may have bronchitis. Patient also follows with pulmonary for a pulmonary nodule which was believed to be mostly inflammatory rather than malignant. Patient although is malnourished from her COPD. Does not have any leukocytosis fever 08/28/2024 Patient is evaluated in follow-up the emergency room still pending a bed on the medical floor. She continues to report significant cough with sputum production as well as shortness of breath. She is continued on the oxygen with saturations of 99%. She has congested on examination and continues to require around the clock breathing treatments. She is also reporting back pain this appears to be chronic in nature she is requesting IV pain medication states that she uses something like a [place] at home however does not appear to prescribe this medication and she does have a contract for Suboxone which she is getting on an outpatient basis. This has been resumed here we will also add IV Toradol. 08/29/2024 Patient evaluated today in follow-up she is currently now in a bed on the medical floor. She does continue to report significant cough reporting feeling less short of breath. She is quite wheezy continues on IV Solu-Medrol oral Augmentin. She was continued on at Tylenol as well as IV Toradol for her back p ain and she does report improvement in her pain today. Will add Mucinex and likely can be discharged home tomorrow 10/26/2023 Patient evaluated in follow-up resting in bed. She continues to request narcotics for her chronic back pain she will continue on Tylenol and IV Toradol as well as her Suboxone which she does have a pain contract for. She is not a candidate at this time for narcotics. Patient continues on IV Solu-Medrol oral Augmentin for an acute COPD exacerbation she is not having as much wheezing today we will continue to monitor this patient 1 more day overnight she is medically was ready for discharge today however does not have any family at home to help her we will continue to monitor for 1 more night. Review of Systems Constitutional: Denied any fatigue denied any fever. Cardio vascular: denied any chest pain, palpitations Gastrointestinal: denied any nausea, vomiting, diarrhea Pulmonary: Denied any shortness of breath cough Neurologic denied any new focal deficits All inpatient medications were reviewed and appropriate changes in these medications as dictated in the interval history and assessment and plan. PHYSICAL EXAMINATION: GENERAL: The patient is alert and oriented x3, not in any acute distress. Thin built female HEENT: Pupils are round and equally reacting to light. EOMI. No scleral icterus. No conjunctival pallor. Normocephalic, atraumatic. No pharyngeal erythema. No thyromegaly. CARDIOVASCULAR: S1 and S2 present. No murmurs, rubs, or gallops. PULMONARY: Bilateral rhonchi and wheezing expiratory ABDOMEN: Soft, nontender, nondistended, normoactive bowel sounds. No palpable organomegaly. MUSCULOSKELETAL: No joint swelling or deformity. EXTREMITIES: No cyanosis, clubbing, or pedal edema. NEUROLOGICAL: Gross neurological examination did not reveal any focal deficits. SKIN: No rashes. Assessment and plan -Acute on chronic hypercapnic hypoxic and hypercapnic respiratory failure secondary to COPD exacerbation patient will continue with systemic steroids and nasal treatments patient is on Augmentin for bronchitis which will be continued -Atrial fibrillation presently sinus rhythm rate controlled patient will be resumed on metoprolol and Xarelto for anticoagulation -Hyperlipidemia -Hypertension -Seizure disorder for which patient is on levetiracetam which will be continued -Mild to moderate protein calorie malnutrition -Depression For above-mentioned chronic medical problems patient will be resumed on appropriate home medications DVT prophylaxis: On Xarelto The impression and plan of care has been dictated by Ninoska Dawn, Nurse Practitioner as directed. Dr. Antonette MD I have performed a history and physical examination and medical decision making of this patient, discussed the same with the dictator, and agree with the dictators assessment and plan as written, documented as a scribe. Based on total visit time, I have performed more than 50% of this visit. Objective - Vital Signs Vital signs: Vital Signs Temp 97.8 F 08/30/24 07:50 Pulse 80 08/30/24 12:31 Resp 16 08/30/24 07:50 BP 111/63 08/30/24 07:50 Pulse Ox 98 08/30/24 07:50 FiO2 Intake & Output 08/29/24 08/30/24 08/30/24 18:59 06:59 18:59 Other: Voiding Method Bedside Commode Toilet Toilet Bedside Commode # Voids 3 1 # Bowel Movements 1 - Labs CBC & Chem 7: 08/27/24 09:45 08/30/24 06:14 Labs: Abnormal Lab Results - Last 24 Hours (Table) 08/30/24 Range/Units 06:14 BUN/Creatinine Ratio 30.33 H (12.00-20.00) Ratio Glucose 129 H (70-110) mg/dL Calcium 8.2 L (8.7-10.3) mg/dL Microbiology - Last 24 Hours (Table) 08/27/24 09:00 Blood Culture - Preliminary Blood Assessment and Plan Time with Patient: Less than 30
[2024-08-31 09:46] VITALS: RESP 18
[2024-08-31 15:03] VITALS: BP 159/74; PULSE 76; TEMP 98.5
--- NOTE | 2024-09-06 12:19 | P.DS ---
Providers Date of admission: 08/27/24 11:07 Expected date of discharge: 08/31/24 Attending physician: Logan Whitman Primary care physician: Daksha Steiner Hospital Course: Final diagnosis -Acute on chronic hypercapnic hypoxic and hypercapnic respiratory failure secondary to COPD exacerbation -Atrial fibrillation presently sinus rhythm rate controlled -Hyperlipidemia -Hypertension -Seizure disorder for which patient is on levetiracetam -Mild to moderate protein calorie malnutrition -Depression DVT prophylaxis: On Xarelto GI prophylaxis Full code Discharge disposition Patient is being discharged in a stable condition with guarded prognosis to home. Patient will follow-up with Dr. Obi Walker in the outpatient setting upon discharge. Patient is to continue with current medications and outpatient follow-up with pulmonary Dr. Cortez as scheduled. Total time taken is greater than 35 minutes. Hospital course This is a 64-year-old female who was recently admitted with acute on chronic hypoxic respiratory failure with COPD exacerbation. Patient being closely monitored maintained on IV steroids along with DuoNeb treatments showing some improvements although slow to improve. Patient with generalized weakness and de bility was evaluated by physical therapy and will be going home. Patient does have a nephew that resides with them. Patient is persistent on going home reports to feeling improved. Medication sent to the pharmacy here at [facility] as patient reports she is unable to pick them up at [facility].Patient is medically stable for discharge home. Patient is high risk for readmissions given patient's significant comorbidities, continuous noncompliance with medications and follow-up. Currently no reports of chest pain, shortness of breath, or palpitations. Patient is afebrile. No reports of nausea or vomiting and patient is tolerating diet. Patient will be discharged home today. Physical exam: Gen: This is a 64-year-old female who is awake, alert and oriented, thin built, elderly appearing, ill-appearing HEENT: Head is atraumatic, normocephalic. Pupils equal, round. Sclerae is anicteric. NECK: Supple. No JVD. No lymphadenopathy. No thyromegaly. LUNGS: Diminished breath sounds bilaterally with coarse scattered rhonchi. No intercostal retractions. HEART: Regular rate and rhythm. No murmur. ABDOMEN: Soft. Thin, scaphoid bowel sounds are present. No masses. No tenderne ss. EXTREMITIES: No pedal edema. No calf tenderness. Muscle wasting noted of upper and lower extremities including clavicle area NEUROLOGICAL: Patient is awake, alert and oriented x3. Cranial nerves 2 through 12 are grossly intact. Diffusely weak Please refer to medication reconciliation sheet for a list of medications. The impression and plan of care has been dictated by Angelita Diaz, Nurse Practitioner as directed. Dr. Antonette MD I have performed a history and examination and MDM of this patient, discussed the same with the dictator, and agree with the dictator's assessment and plan as written ,documented as a scribe. Based on total visit time, I have performed more than 50% of the visit. Patient Condition at Discharge: Fair Plan - Discharge Summary Discharge Rx Participant: Yes New Discharge Prescriptions: New guaiFENesin [Mucinex] 600 mg PO Q12H 7 Days #14 tab Continue levETIRAcetam [Keppra] 1,000 mg PO BID Rivaroxaban [Xarelto] 20 mg PO DAILY QUEtiapine FUMARATE [SEROquel] 400 mg PO HS Metoprolol Succinate [Toprol XL] 100 mg PO DAILY Acetaminophen Tab [Tylenol] 1,000 mg PO Q6HR PRN PRN Reason: Pain Or Fever > 100.5 Ondansetron [Zofran] 4 mg PO Q6H PRN PRN Reason: Nausea or Vomiting Albuterol Sulfate [Albuterol Sulfate Hfa] 2 puff INHALATION RT-Q6H PRN #1 each PRN Reason: Shortness Of Breath Pantoprazole [Protonix] 40 mg PO DAILY Gabapentin [Neurontin] 300 mg PO BID Glycopyrrolate/Formoterol Fum [Bevespi Aerosphere Inhaler] 1 puff INHALATION RT-BID Ipratropium-Albuterol Nebulize [Duoneb 0.5 mg-3 mg/3 ml Soln] 3 ml INHALATION RT-Q4H PRN each PRN Reason: Cough Montelukast [Singulair] 10 mg PO HS No Action Amoxic-Pot Clav 875-125Mg [Augmentin 875-125] 1 tab PO DIRECTED predniSONE See Taper PO DIRECTED Discharge Medication List Albuterol Sulfate [Albuterol Sulfate Hfa] 2 puff INHALATION RT-Q6H PRN #1 each 10/04/22 [Rx] levETIRAcetam [Keppra] 1,000 mg PO BID 03/20/23 [History] Rivaroxaban [Xarelto] 20 mg PO DAILY 06/21/23 [History] Pantoprazole [Protonix] 40 mg PO DAILY 03/21/24 [History] Gabapentin [Neurontin] 300 mg PO BID 04/15/24 [History] Glycopyrrolate/Formoterol Fum [Bevespi Aerosphere Inhaler] 1 puff INHALATION RT- BID 04/15/24 [History] QUEtiapine FUMARATE [SEROquel] 400 mg PO HS 06/29/24 [History] Ipratropium-Albuterol Nebulize [Duoneb 0.5 mg-3 mg/3 ml Soln] 3 ml INHALATION RT-Q4H PRN each 07/08/24 [Rx] Acetaminophen Tab [Tylenol] 1,000 mg PO Q6HR PRN 08/27/24 [History] Metoprolol Succinate [Toprol XL] 100 mg PO DAILY 08/27/24 [History] Montelukast [Singulair] 10 mg PO HS 08/27/24 [History] Ondansetron [Zofran] 4 mg PO Q6H PRN 08/27/24 [History] guaiFENesin [Mucinex] 600 mg PO Q12H 7 Days #14 tab 08/31/24 [Rx] Amoxic-Pot Clav 875-125Mg [Augmentin 875-125] 1 tab PO DIRECTED 09/04/24 [History] predniSONE See Taper PO DIRECTED 09/04/24 [History] Follow up Appointment(s)/Referral(s): [facility], [NON-STAFF] - 1-2 Days Daksha Steiner MD [Primary Care Provider] - 1-2 days (office not answering Please call to schedule appointment) Jaun Cortez [STAFF PHYSICIAN] - 09/01/24 11:30 am Patient Instructions/Handouts: COPD (Chronic Obstructive Pulmonary Disease) (DC) Activity/Diet/Wound Care/Special Instructions: Advise to quit smoking Continue oral prednisone taper Continue oral augmentin Discharge Disposition: HOME SELF-CARE
== END 2024-08-31 15:57 | disposition home or self-care (01) | DRG 190 ==
LOC: EC 09:04 → 4SSUR 11:07
PROVIDERS: ADMIT Internal Medicine; ATTEND Internal Medicine
DX: J44.1 Chronic obstructive pulmonary disease with (acute) exacerbation (principal); J96.21 Acute and chronic respiratory failure with hypoxia; J96.22 Acute and chronic respiratory failure with hypercapnia; E44.0 Moderate protein-calorie malnutrition; Z68.1 Body mass index [BMI] 19.9 or less, adult; I48.91 Unspecified atrial fibrillation; E78.5 Hyperlipidemia, unspecified; I10 Essential (primary) hypertension; G40.909 Epilepsy, unspecified, not intractable, without status epilepticus; I25.10 Atherosclerotic heart disease of native coronary artery without angina pectoris; F31.9 Bipolar disorder, unspecified; F17.200 Nicotine dependence, unspecified, uncomplicated; G89.29 Other chronic pain; Z88.8 Allergy status to other drugs, medicaments and biological substances; Z86.73 Personal history of transient ischemic attack (TIA), and cerebral infarction without residual deficits; Z99.81 Dependence on supplemental oxygen
CPT/HCPCS: 36415; 71046; 80048; 80053; 83605; 83735; 84145; 84484; 85025; 85610; 85730; 87040; 93005; 94640; 94760; 96361; 96374; 96375; 99291

== ENCOUNTER 2024-09-03 19:26 | Inpatient (IN) | payer MEDICARE, OTHER ==
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
[2024-09-03 20:26] LABS: Basophils % (A) 0 %; Eosinophils # (A) 0.5 k/uL (0-0.7); Eosinophils % (A) 4 %; HCT 37.9 % (34.0-46.0); HGB 12.3 gm/dL (11.4-16.0); Lymphocytes # (A) 2.7 k/uL (1.0-4.8); Lymphocytes % (A) 26 %; MCH 27.3 pg (25.0-35.0); MCHC 32.4 g/dL (31.0-37.0); MCV 84.3 fL (80.0-100.0); Mean Platelet Volume 6.7; Monocytes # (A) 0.7 k/uL (0-1.0); Monocytes % (A) 7 %; Neutrophils # (A) 6.6 k/uL (1.3-7.7); Neutrophils % (A) 62 %; Platelet Count 330 k/uL (150-450); RBC 4.49 m/uL (3.80-5.40); RDW 14.7 % (11.5-15.5); WBC 10.6 k/uL (3.8-10.6)
[2024-09-03 20:28] LABS: INR 0.8 (<1.2); Partial Thromboplastin Time 24.5 sec (22.0-30.0); Prothrombin Time 9.6 sec (10.0-12.5)
[2024-09-03 20:34] LABS: ALT 12 U/L (4-34); AST 19 U/L (14-36); Acetaminophen <10.0 ug/mL; African American GFR (CKD) >90 (>60 ml/min/1.73 sqM); Albumin 3.7 g/dL (3.5-5.0); Alcohol <10 mg/dL; Alkaline Phosphatase 76 U/L (38-126); Anion Gap 1 mmol/L; Blood Urea Nitrogen 9 mg/dL (7-17); Calcium 8.8 mg/dL (8.4-10.2); Carbon Dioxide 35 mmol/L (22-30); Chloride 96 mmol/L (98-107); Glucose 139 mg/dL (74-99); Lipase 45 U/L (23-300); Magnesium 1.6 mg/dL (1.6-2.3); Non-African American GFR(CKD) >90 (>60 ml/min/1.73 sqM); Phosphorus 4.1 mg/dL (2.5-4.5); Salicylate <1.0 mg/dL; Sodium 132 mmol/L (137-145); Total Bilirubin 0.4 mg/dL (0.2-1.3); Total Protein 6.7 g/dL (6.3-8.2)
[2024-09-03 20:43] LABS: NT-Pro-B-Type Natriuretic Pept 401 pg/mL
[2024-09-03] MEDS: SODIUM CHLORIDE 0.9% 1,000 ML IV STA (20:47)
[2024-09-03] MEDS: HYDROmorphone 0.5 MG/0.5 ML SYRINGE IVP STA (21:15)
[2024-09-03] MEDS ORDERED: ONDANSETRON 4 MG/2 ML VIAL IVP PRN (21:25)
[2024-09-03] MEDS ORDERED: NALOXONE 0.4 MG/ML 1 ML VIAL IV PRN (21:25)
[2024-09-03 22:25] LABS: Appearance,Urine Clear (Clear); Bilirubin,Urine Negative (Negative); Blood,Urine Negative (Negative); Color,Urine Colorless; Glucose,Urine (UA) Negative (Negative); Ketones,Urine Negative (Negative); Leukocyte Esterase,Urine Small (Negative); Nitrite,Urine Negative (Negative); PH, Urine 7.5 (5.0-8.0); Protein,Urine Negative (Negative); RBC,Urine 1 /hpf (0-5); Specific Gravity,Urine 1.007 (1.001-1.035); Squamous Epithelial Cell,Urine <1 /hpf (0-4); Urobilinogen,Urine <2.0 mg/dL (<2.0); WBC,Urine 3 /hpf (0-5)
[2024-09-03 22:39] LABS: Amphetamine Screen,Urine Not Detected (NotDetected); Barbiturate Screen,Urine Not Detected (NotDetected); Benzodiazepines Screen,Urine Detected (NotDetected); Cocaine Screen,Urine Not Detected (NotDetected); Methadone Screen, Urine Not Detected (NotDetected); Opiate Screen,Urine Not Detected (NotDetected); Oxycodone Screen, Urine Not Detected (NotDetected); Phencyclidine Screen,Urine Not Detected (NotDetected); Tricyclic Antidepressant,Urine Detected (NotDetected); Urn Cannabinoid Scrn Not Detected (NotDetected)
[2024-09-03] MEDS: LORazepam 2 MG/ML INJ IV PRN (22:43)
[2024-09-04] MEDS: HYDROmorphone 1 MG/ML 1 ML SYRINGE IVP PRN (00:23)
[2024-09-04] MEDS: IPRATROPIUM-ALBUTEROL 3 ML NEB INHALATION STA (00:34)
[2024-09-04] MEDS ORDERED: ALBUTEROL HFA INHALER INHALATION PRN (01:46)
[2024-09-04] MEDS ORDERED: ONDANSETRON 4 MG TAB PO PRN (01:46)
[2024-09-04] MEDS: QUEtiapine 200 MG TAB PO SCH (02:28)
[2024-09-04] MEDS: levETIRAcetam 500 MG TAB PO SCH (02:28)
[2024-09-04] MEDS: GABAPENTIN 300 MG CAP PO SCH (02:28)
[2024-09-04] MEDS: guaiFENesin 600 MG TABLET.ER PO SCH (02:29)
[2024-09-04] MEDS: SODIUM CHLORIDE 0.9% 1,000 ML IV SCH (02:35)
[2024-09-04] MEDS: SODIUM CHLORIDE 0.9% 1,000 ML IV STA (05:48)
[2024-09-04] MEDS: DEXAMETHASONE SOD PHOSPHATE 10 MG/ML 1 ML VIAL IVP STA (05:49)
[2024-09-04] MEDS: MONTELUKAST 10 MG TAB PO SCH (05:49)
[2024-09-04] MEDS: DEXAMETHASONE SOD PHOSPHATE 10 MG/ML 1 ML VIAL IVP ONE (05:53)
[2024-09-04 06:48] LABS: ALT 8 U/L (4-34); AST 14 U/L (14-36); African American GFR (CKD) >90 (>60 ml/min/1.73 sqM); Albumin 2.7 g/dL (3.5-5.0); Alkaline Phosphatase 64 U/L (38-126); Anion Gap 0 mmol/L; Blood Urea Nitrogen 5 mg/dL (7-17); Calcium 7.9 mg/dL (8.4-10.2); Carbon Dioxide 34 mmol/L (22-30); Chloride 99 mmol/L (98-107); Glucose 125 mg/dL (74-99); Magnesium 1.5 mg/dL (1.6-2.3); Non-African American GFR(CKD) >90 (>60 ml/min/1.73 sqM); Phosphorus 3.9 mg/dL (2.5-4.5); Sodium 133 mmol/L (137-145); Total Bilirubin 0.4 mg/dL (0.2-1.3); Total Protein 5.2 g/dL (6.3-8.2)
[2024-09-04] MEDS ORDERED: Magnesium Replacement Protocol 1 EACH MISC MISCELLANE PRN (07:12)
[2024-09-04 07:50] LABS: Basophils % (A) 0 %; Eosinophils # (A) 0.5 k/uL (0-0.7); Eosinophils % (A) 6 %; HCT 30.1 % (34.0-46.0); Hypochromasia Slight; Lymphocytes # (A) 2.7 k/uL (1.0-4.8); Lymphocytes % (A) 31 %; MCH 27.9 pg (25.0-35.0); MCHC 32.2 g/dL (31.0-37.0); MCV 86.6 fL (80.0-100.0); Mean Platelet Volume 6.4; Monocytes # (A) 0.6 k/uL (0-1.0); Monocytes % (A) 7 %; Neutrophils # (A) 4.7 k/uL (1.3-7.7); Neutrophils % (A) 55 %; Platelet Count 266 k/uL (150-450); RBC 3.48 m/uL (3.80-5.40); RDW 14.6 % (11.5-15.5); WBC 8.7 k/uL (3.8-10.6)
[2024-09-04 07:53] LABS: HGB 9.7 gm/dL (11.4-16.0)
[2024-09-04] MEDS: FORMOTEROL FUMARATE 20 MCG/2 ML NEBU INHALATION SCH (08:36)
[2024-09-04] MEDS: MAGNESIUM SULFATE-D5W PMX 1 GM in DEXTROSE/WATER 1 100ML.BAG IVPB SCH (08:46)
[2024-09-04] MEDS: PANTOPRAZOLE 40 MG TABLET PO SCH (08:46)
[2024-09-04] MEDS: METOPROLOL SUCCINATE (ER) 100 MG TAB.ER.24H PO SCH (08:46)
[2024-09-04] MEDS: FUROSEMIDE 10 MG/ML 2 ML VIAL IV STA (09:22)
--- NOTE | 2024-09-04 09:41 | XR ---
EXAMINATION TYPE: XR chest 1V portable DATE OF EXAM: 09/04/2024 9:21 AM COMPARISON: 08/27/2024 CLINICAL INDICATION: Female, 64 years old with history of congestion/wheezing, , FINDINGS: Heart normal size. Hyperinflation. Mild interstitial density increased. Some mild patchy left basilar opacity demonstrated. No other consolidation or pleural effusion. IMPRESSION: 1. COPD with mild increased interstitial density could reflect bronchitis or subtle underlying atypic al pneumonia. 2. More focal patchy atelectasis versus early infiltrate at the left base. [facility], , 09/04/2024 9:38 AM
[2024-09-04 14:02] VITALS: BMI 18.2
[2024-09-04] MEDS: ACETAMINOPHEN TAB 500 MG TAB PO PRN (17:44)
[2024-09-04] MEDS: RIVAROXABAN 20 MG TAB PO SCH (17:44)
[2024-09-04] MEDS: QUEtiapine 100 MG TAB PO SCH (22:06)
[2024-09-04] MEDS: HYDROcodone/APAP 5-325MG 1 EACH TAB PO PRN (22:09)
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
[2024-09-05] MEDS: IPRATROPIUM-ALBUTEROL 3 ML NEB INHALATION PRN ×2 (07:07→18:24)
[2024-09-05] MEDS: BUDESONIDE 1 MG/2 ML NEBU INHALATION SCH (07:10)
[2024-09-05 09:37] LABS: Basophils # (A) 0.04 X 10*3/uL (0.00-0.10); Basophils % (A) 0.5 %; Eosinophils # (A) 0.34 X 10*3/uL (0.04-0.35); Eosinophils % (A) 3.8 %; HCT 35.2 % (37.2-46.3); HGB 10.6 g/dL (12.0-15.0); Lymphocytes # (A) 3.15 X 10*3/uL (0.90-5.00); Lymphocytes % (A) 35.6 %; MCH 26.9 pg (27.0-32.0); MCHC 30.1 g/dL (32.0-37.0); MCV 89.3 FL (80.0-97.0); Mean Platelet Volume 9.4 FL (9.5-12.2); Monocytes # (A) 1.02 X 10*3/uL (0.20-1.00); Monocytes % (A) 11.5 %; NRBC Per 100 WBC 0 X 10*3/uL (0.00-0.01); Neutrophils # (A) 4.28 X 10*3/uL (1.80-7.70); Neutrophils % (A) 48.3 %; Platelet Count 319 X 10*3/uL (140-440); RBC 3.94 X 10*6/uL (4.10-5.20); RDW 13.8 % (11.5-14.5); WBC 8.86 X 10*3/uL (4.50-10.00)
[2024-09-05 09:42] LABS: BUN/Creat Ratio 22.75 Ratio (12.00-20.00); Blood Urea Nitrogen 9.1 mg/dL (9.0-27.0); Calcium 8.7 mg/dL (8.7-10.3); Chloride 100 mmol/L (96-109); Glucose 105 mg/dL (70-110); Magnesium 1.8 mg/dL (1.5-2.4); Potassium 5.1 mmol/L (3.5-5.5); Sodium 139 mmol/L (135-145)
--- NOTE | 2024-09-05 14:51 | P.PN ---
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 Patient presents to ER with complaints of generalized weakness and not feeling well. Patient is somewhat poor historian. Currently very drowsy and unable to provide history. Denied any complaints of chest pain. No complaints of shortness of breath. Patient has not been feeling well and failure to thrive and unable to take care of herself. Denies any fever or chills. On admission blood pressure 118 /56 pulse ox 99% on 3 L oxygen via nasal cannula heart rate 124 and respiration 22. Patient was given a dose of Decadron 10 mg IV push, IV fluid bolus and IV Dilaudid and breathing treatments in the ER. Chest x-ray showed COPD with mild increase in interstitial density could reflect bronchitis or subtle underlying atypical pneumonia. More focal patchy atelectasis versus early infiltrate in the left base. Laboratory data showed WBC 10.6 hemoglobin 12.3 and platelets 330 sodium 132 potassium 4.0 chloride 96 bicarb is 35 BUN 9 and creatinine 0.46 and blood sugar 139 liver enzymes are not elevated TSH 0.612 and proBNP 401 and troponin x 1 negative urinalysis is negative for infection UDS is positive for tricyclic antidepressants and benzodiazepines. Serum a lcohol is less than 10 and C. difficile negative. EKG showed sinus tachycardia 09/05. Patient seen and examined. Blood work this morning showed WBC 8.86, hemoglobin 10.6, sodium 139, potassium 5.1, BUN 9.1, creatinine 0.4 REVIEW OF SYSTEMS: CONSTITUTIONAL: No fever, no malaise,. CARDIOVASCULAR: No chest pain, no palpitations, no syncope. PULMONARY: No shortness of breath, no cough, GASTROINTESTINAL: No diarrhea, no nausea, no vomiting, no abdominal pain. NEUROLOGICAL: No headaches, no weakness, PHYSICAL EXAMINATION: GENERAL: The patient is alert and oriented x3, not in any acute distress. Chronically ill looking HEENT: Pupils are round and equally reacting to light. EOMI. No scleral icterus. No conjunctival pallor. Normocephalic, atraumatic. No pharyngeal erythema. No thyromegaly. CARDIOVASCULAR: S1 and S2 present. No murmurs, rubs, or gallops. PULMONARY: Chest is clear to auscultation, no wheezing or crackles. ABDOMEN: Soft, nontender, nondistended, normoactive bowel sounds. No palpable organomegaly. MUSCULOSKELETAL: No joint swelling or deformity. EXTREMITIES: No cyanosis, clubbing, or pedal edema. NEUROLOGICAL: Gross neurological examination did not reveal any focal deficits. SKIN: No rashes. Assessment and plan Generalized weakness and debility COPD with mild exacerbation. Improved now. Hypovolemic hyponatremia UDS positive for benzodiazepines and tricyclic antidepressants History of CVA with residual right-sided weakness and spasms Chronic pain Crohn's disease Seizure disorder Paroxysmal atrial fibrillation on anticoagulation with Xarelto Hypertension Hyperlipidemia Anxiety/depression/bipolar disorder Ongoing nicotine addiction History of alcohol abuse, cocaine, marijuana use Monitor vital signs Monitor CBC Monitor CMP Encourage use of I-S Aggressive bronchopulmonary hygiene Continue breathing treatments Continue Xarelto PT and OT consulted Labs and medication were reviewed.. Continue same treatment. Continue with symptomatic treatment. Resume home medication. Monitor labs and vitals. DVT and GI prophylaxis. Further recommendations as per clinical course of the patient Dictation was produced using [employer] dictation software. please excuse any grammatical, word or spelling errors. Objective - Vital Signs Vital signs: Vital Signs Temp 98.4 F 09/05/24 07:52 Pulse 79 09/05/24 07:52 Resp 16 09/05/24 07:52 BP 148/85 09/05/24 07:52 Pulse Ox 95 09/05/24 07:52 FiO2 Intake & Output 09/04/24 09/05/24 09/05/24 18:59 06:59 18:59 Intake Total 952 1320 480 Balance 952 1320 480 Weight 54.431 kg Intake: Intake, IV Titration 240 Amount Sodium Chloride 0.9% 1, 240 000 ml @ 20 mls/hr IV . Q24H DEX Rx#:[id number] Oral 952 5082 480 Other: Voiding Method Diaper Diaper Incontinent Incontinent # Voids 3 1 # Bowel Movements 2 - Labs CBC & Chem 7: 09/05/24 05:31 09/05/24 05:31 Labs: Abnormal Lab Results - Last 24 Hours (Table) 09/05/24 09/05/24 Range/Units 05:31 05:31 RBC 3.94 L (4.10-5.20) X 10*6/uL Hgb 10.6 L (12.0-15.0) g/dL Hct 35.2 L (37.2-46.3) % MCH 26.9 L (27.0-32.0) pg MCHC 30.1 L (32.0-37.0) g/dL MPV 9.4 L (9.5-12.2) FL Monocytes # 1.02 H (0.20-1.00) X 10*3/uL Carbon Dioxide 34.0 H (21.6-31.8) mmol/L Creatinine 0.4 L (0.6-1.5) mg/dL BUN/Creatinine Ratio 22.75 H (12.00-20.00) Ratio
[2024-09-05] MEDS ORDERED: QUEtiapine 100 MG TAB PO SCH (21:00)
[2024-09-06] MEDS: ALBUTEROL NEBULIZED 2.5 MG/3 ML INHALATION PRN (11:53)
--- NOTE | 2024-09-06 13:26 | P.PN ---
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 Patient presents to ER with complaints of generalized weakness and not feeling well. Patient is somewhat poor historian. Currently very drowsy and unable to provide history. Denied any complaints of chest pain. No complaints of shortness of breath. Patient has not been feeling well and failure to thrive and unable to take care of herself. Denies any fever or chills. On admission blood pressure 118 /56 pulse ox 99% on 3 L oxygen via nasal cannula heart rate 124 and respiration 22. Patient was given a dose of Decadron 10 mg IV push, IV fluid bolus and IV Dilaudid and breathing treatments in the ER. Chest x-ray showed COPD with mild increase in interstitial density could reflect bronchitis or subtle underlying atypical pneumonia. More focal patchy atelectasis versus early infiltrate in the left base. Laboratory data showed WBC 10.6 hemoglobin 12.3 and platelets 330 sodium 132 potassium 4.0 chloride 96 bicarb is 35 BUN 9 and creatinine 0.46 and blood sugar 139 liver enzymes are not elevated TSH 0.612 and proBNP 401 and troponin x 1 negative urinalysis is negative for infection UDS is positive for tricyclic antidepressants and benzodiazepines. Serum a lcohol is less than 10 and C. difficile negative. EKG showed sinus tachycardia 09/05. Patient seen and examined. Blood work this morning showed WBC 8.86, hemoglobin 10.6, sodium 139, potassium 5.1, BUN 9.1, creatinine 0.4 09/06. Patient seen and examined. Patient complain of lethargy and weakness. States she is unable to take care of herself at home, planning to go to rehab REVIEW OF SYSTEMS: CONSTITUTIONAL: No fever, no malaise,. CARDIOVASCULAR: No chest pain, no palpitations, no syncope. PULMONARY: No shortness of breath, no cough, GASTROINTESTINAL: No diarrhea, no nausea, no vomiting, no abdominal pain. NEUROLOGICAL: No headaches, no weakness, PHYSICAL EXAMINATION: GENERAL: The patient is alert and oriented x3, not in any acute distress. Chronically ill looking HEENT: Pupils are round and equally reacting to light. EOMI. No scleral icterus. No conjunctival pallor. Normocephalic, atraumatic. No pharyngeal erythema. No thyromegaly. CARDIOVASCULAR: S1 and S2 present. No murmurs, rubs, or gallops. PULMONARY: Chest is clear to auscultation, no wheezing or crackles. ABDOMEN: Soft, nontender, nondistended, normoactive bowel sounds. No palpable organomegaly. MUSCULOSKELETAL: No joint swelling or deformity. EXTREMITIES: No cyanosis, clubbing, or pedal edema. NEUROLOGICAL: Gross neurological examination did not reveal any focal deficits. SKIN: No rashes. Assessment and plan Generalized weakness and debility COPD with mild exacerbation. Improved now. Hypovolemic hyponatremia UDS positive for benzodiazepines and tricyclic antidepressants History of CVA with residual right-sided weakness and spasms Chronic pain Crohn's disease Seizure disorder Paroxysmal atrial fibrillation on anticoagulation with Xarelto Hypertension Hyperlipidemia Anxiety/depression/bipolar disorder Ongoing nicotine addiction History of alcohol abuse, cocaine, marijuana use Monitor vital signs Monitor CBC Monitor CMP Encourage use of I-S Aggressive bronchopulmonary hygiene Continue breathing treatments Continue Xarelto PT and OT consulted Labs and medication were reviewed.. Continue same treatment. Continue with symptomatic treatment. Resume home medication. Monitor labs and vitals. DVT and GI prophylaxis. Further recommendations as per clinical course of the patient Dictation was produced using [employer] dictation software. please excuse any grammatical, word or spelling errors. Objective - Vital Signs Vital signs: Vital Signs Temp 97.7 F 09/06/24 07:32 Pulse 72 09/06/24 12:02 Resp 18 09/06/24 12:02 BP 115/69 09/06/24 07:32 Pulse Ox 98 09/06/24 09:53 FiO2 Intake & Output 09/05/24 09/06/24 09/06/24 18:59 06:59 18:59 Intake Total 1560 1080 Output Total 700 Balance 1560 380 Intake: Oral 1560 1080 Output: Urine 700 Other: Voiding Method Diaper Incontinent # Voids 4 # Bowel Movements 1 - Labs CBC & Chem 7: 09/05/24 05:31 09/05/24 05:31
[2024-09-07 07:50] VITALS: RESP 18; TEMP 98.1
[2024-09-07 13:09] VITALS: BP 149/76; PULSE 72
--- NOTE | 2024-09-07 13:20 | P.DS ---
Providers Date of admission: 09/07/24 09:37 Expected date of discharge: 09/07/24 Attending physician: Buddy Walker Primary care physician: Daksha Steiner [facility] Course: Final diagnosis Generalized weakness and debility COPD with mild exacerbation. Improved now. Hypovolemic hyponatremia, improved UDS positive for benzodiazepines and tricyclic antidepressants History of CVA with residual right-sided weakness and spasms Chronic pain Crohn's disease Seizure disorder Paroxysmal atrial fibrillation on anticoagulation with Xarelto Hypertension Hyperlipidemia Anxiety/depression/bipolar disorder Ongoing nicotine addiction History of alcohol abuse, cocaine, marijuana use GI prophylaxis DVT prophylaxis Full code Discharge disposition Patient is being discharged in a stable condition with guarded prognosis to [facility]. Patient will follow-up with Dr. Obi Walker in the outpatient setting upon discharge. Patient is to continue with current medications and outpatient follow-up with pulmonary Dr. Cortez as scheduled. Total time taken is greater than 35 minutes. Hospital course This is a 64-year-old female who was recently admitted with generalized weakness and inability to care for self. Patient evaluated by physical therapy recommending rehab and patient is agreeable. Initially patient was told she has no previous days left for rehab and was willing to go home although reports lives by herself and has difficulty although cannot afford paying [id number] for rehab. Patient was approved at [facility] and will be going there for continued strength and mobility. Patient also discussing possibly signing on with [facility]. Patient does have the paperwork from previous admissions from case management/social work. Patient does have difficulties with compliance outpatient due to limited support and no transportation. Currently no reports of chest pain, shortness of breath, or palpitations. Patient is afebrile. No reports of nausea or vomiting and patient is tolerating diet. Patient will be going to [facility] today. Physical exam: Gen: This is a 64-year-old female who is awake, alert and oriented x 3, thin built, elderly appearing HEENT: Head is atraumatic, normocephalic. Pupils equal, round. Sclerae is anicteric. NECK: Supple. No JVD. No lymphadenopathy. No thyromegaly. LUNGS: Diminished breath sounds bilaterally otherwise clear to auscultation. No wheezes, coarse scattered rhonchi. No intercostal retractions. HEART: Regular rate and rhythm. No murmur. ABDOMEN: Soft. Thin. Bowel sounds are present. No masses. No tenderness. EXTREMITIES: No pedal edema. No calf tenderness. NEUROLOGICAL: Patient is awake, alert and oriented x3. Cranial nerves 2 through 12 are grossly intact. Diffusely weak Please refer to medication reconciliation sheet for a list of medications. The impression and plan of care has been dictated by Angelita Diaz, Nurse Practitioner as directed. Dr. Sally MD I have performed a history and examination and MDM of this patient, discussed the same with the dictator, and agree with the dictator's assessment and plan as written ,documented as a scribe. Based on total visit time, I have performed more than 50% of the visit. Patient Condition at Discharge: Fair Plan - Discharge Summary Discharge Rx Participant: Yes New Discharge Prescriptions: New HYDROcodone/APAP 5-325MG [Festus 5-325] 1 each PO Q6HR PRN #3 tab PRN Reason: mod-severe Pain (4-10) Budesonide [Pulmicort] 1 mg INHALATION RT-BID ml Ipratropium-Albuterol Nebulize [Duoneb 0.5 mg-3 mg/3 ml Soln] 3 ml INHALATION QID each QUEtiapine [SEROquel] 100 mg PO HS tab Continue levETIRAcetam [Keppra] 1,000 mg PO BID Rivaroxaban [Xarelto] 20 mg PO DAILY Metoprolol Succinate [Toprol XL] 100 mg PO DAILY Acetaminophen Tab [Tylenol] 1,000 mg PO Q6HR PRN PRN Reason: Pain Or Fever > 100.5 Ondansetron [Zofran] 4 mg PO Q6H PRN PRN Reason: Nausea or Vomiting guaiFENesin [Mucinex] 600 mg PO Q12H 7 Days #14 tab Albuterol Sulfate [Albuterol Sulfate Hfa] 2 puff INHALATION RT-Q6H PRN #1 ea ch PRN Reason: Shortness Of Breath Pantoprazole [Protonix] 40 mg PO DAILY Gabapentin [Neurontin] 300 mg PO BID Glycopyrrolate/Formoterol Fum [Bevespi Aerosphere Inhaler] 1 puff INHALATION RT-BID Ipratropium-Albuterol Nebulize [Duoneb 0.5 mg-3 mg/3 ml Soln] 3 ml INHALATION RT-Q4H PRN each PRN Reason: Cough Montelukast [Singulair] 10 mg PO HS Discontinued QUEtiapine FUMARATE [SEROquel] 400 mg PO HS Amoxic-Pot Clav 875-125Mg [Augmentin 875-125] 1 tab PO DIRECTED predniSONE See Taper PO DIRECTED Discharge Medication List Albuterol Sulfate [Albuterol Sulfate Hfa] 2 puff INHALATION RT-Q6H PRN #1 each 10/04/22 [Rx] levETIRAcetam [Keppra] 1,000 mg PO BID 03/20/23 [History] Rivaroxaban [Xarelto] 20 mg PO DAILY 06/21/23 [History] Pantoprazole [Protonix] 40 mg PO DAILY 03/21/24 [History] Gabapentin [Neurontin] 300 mg PO BID 04/15/24 [History] Glycopyrrolate/Formoterol Fum [Bevespi Aerosphere Inhaler] 1 puff INHALATION RT- BID 04/15/24 [History] Ipratropium-Albuterol Nebulize [Duoneb 0.5 mg-3 mg/3 ml Soln] 3 ml INHALATION RT-Q4H PRN each 07/08/24 [Rx] Acetaminophen Tab [Tylenol] 1,000 mg PO Q6HR PRN 08/27/24 [History] Metoprolol Succinate [Toprol XL] 100 mg PO DAILY 08/27/24 [History] Montelukast [Singulair] 10 mg PO HS 08/27/24 [History] Ondansetron [Zofran] 4 mg PO Q6H PRN 08/27/24 [History] guaiFENesin [Mucinex] 600 mg PO Q12H 7 Days #14 tab 08/31/24 [Rx] Budesonide [Pulmicort] 1 mg INHALATION RT-BID ml 09/07/24 [Rx] HYDROcodone/APAP 5-325MG [Festus 5-325] 1 each PO Q6HR PRN #3 tab 09/07/24 [Rx] Ipratropium-Albuterol Nebulize [Duoneb 0.5 mg-3 mg/3 ml Soln] 3 ml INHALATION QID each 09/07/24 [Rx] QUEtiapine [SEROquel] 100 mg PO HS tab 09/07/24 [Rx] Follow up Appointment(s)/Referral(s): Daksha Steiner MD [Primary Care Provider] - 1-2 days Activity/Diet/Wound Care/Special Instructions: Activity as tolerated Patient is going to [facility] Follow-up with pulmonary outpatient Continue on current medications Discharge Disposition: TRANSFER TO SNF/ECF
--- NOTE | 2024-09-10 10:23 | CDI ---
Documentation Clarification Form Date: 09/10/2024 09:50:09 AM From: Shoshana Gibbons RN, CCDS Email: [email or web address] Admit Date: 09/07/2024 09:37:00 AM Patient Name: Fabiola Giraldo Visit Number: [id number] Discharge Date: 09/07/2024 03:52:00 PM ATTENTION: The Clinical Documentation Specialists (CDI) and [facility] Coding Staff appreciate your assistance in clarifying documentation. Please respond to the clarification below the line at the bottom and electronically sign. The CDI & [facility] Coding staff will review the response and follow-up if needed. Please note: Queries are made part of the Legal Health Record. If you have any questions, please contact the author of this message via ITS. Provider: Angelita Diaz NP The patient has the documented symptom of weakness and debility. Additional clarification is requested. History/Risk Factors: A fib on anticoagulation, CAD, COPD, CVA/TIA, Crohn's, HTN, HLD, GERD, anxiety, depression, bipolar, smoker, alcohol abuse and cocaine/marijuana use. Presented with generalized weakness, debility and failure to thrive. Clinical Indicators ED: "64-year-old female who appears to come into the hospital once a month for weakness and debility. Patient will again be admitted to the hospital for failure to thrive." H&P and discharge summary: "Generalized weakness and debility." 09/07 PT: "Patient very lethargic, follows simple commands. Needs maximum assist with ADL's. Unable to stand. Intervention with therapeutic activity, gait training and exercise." 09/07 OT: "Will benefit from subacute rehabilitation upon DC." Treatment: PT/OT - see recommendations above; 0.9 NS IV bolus x1 on 09/03; IV Decadron 10mg on 09/03 and 09/04 Further clarification requested for weakness/debility: [ x ] Age related physical debility [ ] Age related cognitive decline [ ] Unable to determine [ ] Other, please specify MTDD
== END 2024-09-07 15:52 | DRG 884 ==
LOC: EC 19:26 → 5NMEDONC 21:26 → OBSVTOIN 09-07 09:37
PROVIDERS: ADMIT Hospitalist; ATTEND Hospitalist
DX: R54 Age-related physical debility (principal); E44.0 Moderate protein-calorie malnutrition; I69.351 Hemiplegia and hemiparesis following cerebral infarction affecting right dominant side; E87.1 Hypo-osmolality and hyponatremia; J44.1 Chronic obstructive pulmonary disease with (acute) exacerbation; Z68.1 Body mass index [BMI] 19.9 or less, adult; K50.90 Crohn's disease, unspecified, without complications; R62.7 Adult failure to thrive; I25.10 Atherosclerotic heart disease of native coronary artery without angina pectoris; E78.5 Hyperlipidemia, unspecified; E86.0 Dehydration; E86.1 Hypovolemia; F31.9 Bipolar disorder, unspecified; F41.9 Anxiety disorder, unspecified; G40.909 Epilepsy, unspecified, not intractable, without status epilepticus; I10 Essential (primary) hypertension; F13.90 Sedative, hypnotic, or anxiolytic use, unspecified, uncomplicated; M19.90 Unspecified osteoarthritis, unspecified site; G89.29 Other chronic pain; I48.0 Paroxysmal atrial fibrillation; F17.210 Nicotine dependence, cigarettes, uncomplicated; Z79.01 Long term (current) use of anticoagulants; Z79.899 Other long term (current) drug therapy; Z82.49 Family history of ischemic heart disease and other diseases of the circulatory system; Z88.1 Allergy status to other antibiotic agents; Z88.8 Allergy status to other drugs, medicaments and biological substances; F10.10 Alcohol abuse, uncomplicated; F14.10 Cocaine abuse, uncomplicated; F12.10 Cannabis abuse, uncomplicated; Z87.01 Personal history of pneumonia (recurrent)
CPT/HCPCS: 36415; 71045; 80048; 80053; 80143; 80179; 80306; 80320; 81001; 83605; 83690; 83735; 83880; 84100; 84145; 84443; 84484; 85025; 85610; 85730; 87324; 93005; 94640; 94760; 96361; 96374; 96375; 99285

== ENCOUNTER 2024-09-25 07:30 | Inpatient (IN) | payer MEDICARE, OTHER ==
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
[2024-09-25 08:26] LABS: Basophils % (A) 0 %; Eosinophils # (A) 0.5 k/uL (0-0.7); Eosinophils % (A) 5 %; HCT 32.5 % (34.0-46.0); HGB 10.3 gm/dL (11.4-16.0); Hypochromasia Moderate; Lymphocytes # (A) 2.8 k/uL (1.0-4.8); Lymphocytes % (A) 29 %; MCH 27.5 pg (25.0-35.0); MCHC 31.6 g/dL (31.0-37.0); Mean Platelet Volume 6.8; Monocytes # (A) 0.8 k/uL (0-1.0); Monocytes % (A) 8 %; Neutrophils # (A) 5.5 k/uL (1.3-7.7); Neutrophils % (A) 57 %; Platelet Count 447 k/uL (150-450); RBC 3.74 m/uL (3.80-5.40); RDW 14.6 % (11.5-15.5); WBC 9.6 k/uL (3.8-10.6)
[2024-09-25] MEDS: cefTRIAXone IN SWFI 1,000 MG/10 ML SYRINGE IVP STA ×2 (08:27→08:29)
[2024-09-25] MEDS: methylPREDNISolone SOD SUCCI 125 MG/2 ML VIAL IV STA (08:29)
[2024-09-25 08:33] LABS: ALT 9 U/L (4-34); AST 20 U/L (14-36); African American GFR (CKD) >90 (>60 ml/min/1.73 sqM); Albumin 3.5 g/dL (3.5-5.0); Alkaline Phosphatase 68 U/L (38-126); Blood Urea Nitrogen 10 mg/dL (7-17); Calcium 8.8 mg/dL (8.4-10.2); Chloride 89 mmol/L (98-107); Glucose 151 mg/dL (74-99); Magnesium 1.6 mg/dL (1.6-2.3); Non-African American GFR(CKD) >90 (>60 ml/min/1.73 sqM); Potassium 4.5 mmol/L (3.5-5.1); Sodium 134 mmol/L (137-145); Total Bilirubin 0.4 mg/dL (0.2-1.3); Total Protein 6.5 g/dL (6.3-8.2)
[2024-09-25] MEDS: IPRATROPIUM 0.5 MG/2.5 ML NEBU INHALATION STA (08:33)
[2024-09-25] MEDS: ALBUTEROL NEBULIZED 2.5 MG/3 ML INHALATION STA (08:33)
[2024-09-25] MEDS: SODIUM CHLORIDE 0.9% 500 ML 500 ML IV STA (08:35)
[2024-09-25 08:39] LABS: Anion Gap 6 mmol/L
[2024-09-25 08:41] LABS: INR 0.9 (<1.2); Prothrombin Time 9.8 sec (10.0-12.5)
[2024-09-25 08:57] LABS: Carbon Dioxide 39 mmol/L (22-30)
[2024-09-25] MEDS: KETOROLAC 15 MG/ML 1 ML VIAL IVP STA (12:18)
--- NOTE | 2024-09-25 13:11 | XR ---
EXAMINATION TYPE: XR chest 2V DATE OF EXAM: 09/25/2024 8:31 AM COMPARISON: Chest radiographs from 09/04/2024 CLINICAL INDICATION: Female, 64 years old with history of difficulty breathing; [facility] TECHNIQUE: XR chest 2V Frontal and lateral views of the chest. FINDINGS: Lungs/Pleura: Persistent bibasilar left greater than right air space/distal opacities. There is no ev idence of pleural effusion, focal consolidation, or pneumothorax. Pulmonary vascularity: Unremarkable. Heart/mediastinum: Cardiomediastinal silhouette is unremarkable. Musculoskeletal: No acute osseous pathology. Other findings: None IMPRESSION: Bibasilar airspace opacities relate for atypical pneumonia. [facility], , 09/25/2024 1:08 PM
[2024-09-25] MEDS ORDERED: IPRATROPIUM-ALBUTEROL 3 ML NEB INHALATION PRN (13:13)
[2024-09-25] MEDS ORDERED: NALOXONE 0.4 MG/ML 1 ML VIAL IVP PRN (13:13)
[2024-09-25] MEDS: IPRATROPIUM-ALBUTEROL 3 ML NEB INHALATION SCH (15:41)
[2024-09-25] MEDS: methylPREDNISolone SOD SUCCI 125 MG/2 ML VIAL IV SCH (19:29)
[2024-09-25] MEDS: FORMOTEROL FUMARATE 20 MCG/2 ML NEBU INHALATION SCH (20:09)
[2024-09-25] MEDS: BUDESONIDE 1 MG/2 ML NEBU INHALATION SCH (20:09)
[2024-09-25] MEDS: levETIRAcetam 500 MG TAB PO SCH (20:34)
[2024-09-25] MEDS: QUEtiapine 100 MG TAB PO SCH (20:34)
[2024-09-25] MEDS: GABAPENTIN 300 MG CAP PO SCH (20:34)
[2024-09-25] MEDS: MONTELUKAST 10 MG TAB PO SCH (20:35)
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
[2024-09-26] MEDS: AZITHROMYCIN 500 MG TAB PO SCH (01:47)
[2024-09-26] MEDS: HYDROcodone/APAP 5-325MG 1 EACH TAB PO PRN (06:07)
[2024-09-26] MEDS: PANTOPRAZOLE 40 MG TABLET PO SCH (07:52)
[2024-09-26] MEDS: RIVAROXABAN 20 MG TAB PO SCH (07:53)
[2024-09-26] MEDS: METOPROLOL SUCCINATE (ER) 100 MG TAB.ER.24H PO SCH (07:53)
[2024-09-26 10:57] LABS: Basophils # (A) 0.01 X 10*3/uL (0.00-0.10); Basophils % (A) 0.1 %; Eosinophils # (A) 0 X 10*3/uL (0.04-0.35); Eosinophils % (A) 0 %; HCT 30.3 % (37.2-46.3); HGB 9.3 g/dL (12.0-15.0); Lymphocytes # (A) 1.12 X 10*3/uL (0.90-5.00); Lymphocytes % (A) 13.8 %; MCH 26.1 pg (27.0-32.0); MCHC 30.7 g/dL (32.0-37.0); MCV 85.1 FL (80.0-97.0); Mean Platelet Volume 8.7 FL (9.5-12.2); Monocytes # (A) 0.23 X 10*3/uL (0.20-1.00); Monocytes % (A) 2.8 %; NRBC Per 100 WBC 0 X 10*3/uL (0.00-0.01); Neutrophils # (A) 6.69 X 10*3/uL (1.80-7.70); Neutrophils % (A) 82.3 %; Platelet Count 422 X 10*3/uL (140-440); RBC 3.56 X 10*6/uL (4.10-5.20); RDW 13.8 % (11.5-14.5); WBC 8.13 X 10*3/uL (4.50-10.00)
[2024-09-26 11:05] LABS: Calcium 8.7 mg/dL (8.7-10.3); Carbon Dioxide 35.7 mmol/L (21.6-31.8); Chloride 93 mmol/L (96-109); Glucose 134 mg/dL (70-110); Potassium 4.9 mmol/L (3.5-5.5); Sodium 137 mmol/L (135-145)
[2024-09-26] MEDS: ONDANSETRON 4 MG/2 ML VIAL IVP PRN (11:40)
--- NOTE | 2024-09-26 23:11 | P.PN ---
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 Patient presents to ER with complaints of worsening shortness of breath for the past 2 days. She was also complaining of sputum with greenish sputum production. No complaints of chest pain. Denied any fever or chills. No nausea vomiting abdominal pain or diarrhea. Chest x-ray showed bibasilar airspace opacities related to atypical pneumonia. EKG showed sinus tachycardia with heart rate 104 and QTc 383. Laboratory data showed WBC 10.6 hemoglobin 10.3 and platelets 447 sodium 134 potassium 4.5 chloride 89 bicarb is 33 9 BUN 10 and creatinine 0.48 and blood sugar 151. Troponin x 1 negative. 09/26/2024 Patient is lying in the bed. Awake alert and oriented. Still complains of shortness of breath. Currently requiring 3 L oxygen via nasal cannula. Otherwise patient states that she had episode of coughing blood, bright red about a teaspoonful x 1 today afternoon. No further episodes of bleeding. No complaints of chest pain. Denies any fever or chills. Patient is being continued on IV Solu-Medrol, DuoNebs, Pulmicort and Perforomist. Xarelto dose will be held today. Follow-up hemoglobin level will be ordered. Current medications reviewed. Objective - Vital Signs Vital signs: Vital Signs Temp 98.3 F 09/26/24 19:17 Pulse 91 09/26/24 20:27 Resp 18 09/26/24 20:27 BP 123/70 09/26/24 19:17 Pulse Ox 94 L 09/26/24 19:17 FiO2 Intake & Output 09/26/24 09/26/24 09/27/24 06:59 18:59 06:59 Output Total 800 Balance -800 Output: Urine 800 Other: Voiding Method Bedpan Bedpan # Voids 2 1 - Exam PHYSICAL EXAMINATION: Patient is lying in the bed mild acute distress, awake alert and oriented.. HEENT: Normocephalic. Neck is supple. Pupils reactive. Nostrils clear. Oral cavity is moist. Neck reveals no JVD, carotid bruits, or thyromegaly. CHEST EXAMINATION: Trachea is central. Symmetrical expansion. Bilateral diffuse wheezing and scattered rhonchi. Nonlabored breathing.. CARDIAC: Normal S1, S2 with no gallops. No murmurs ABDOMEN: Soft. Bowel sounds normal. No organomegaly. No abdominal bruits. Extremities: reveal no edema. No clubbing or cyanosis Neurologically awake, alert, oriented x3 with well-coordinated movements. No gross focal deficits noted Skin: No rash or skin lesions. Psychiatric: Coperative. Nonsuicidal, anxious. Musculoskeletal: No joint swelling or deformity. Normal range of motion. - Labs CBC & Chem 7: 09/26/24 03:33 09/26/24 03:33 Labs: Abnormal Lab Results - Last 24 Hours (Table) 09/26/24 09/26/24 Range/Units 03:33 03:33 RBC 3.56 L (4.10-5.20) X 10*6/uL Hgb 9.3 L (12.0-15.0) g/dL Hct 30.3 L (37.2-46.3) % MCH 26.1 L (27.0-32.0) pg MCHC 30.7 L (32.0-37.0) g/dL MPV 8.7 L (9.5-12.2) FL Immature Gran # 0.08 H (0.00-0.04) X 10*3/uL Eosinophils # 0 L (0.04-0.35) X 10*3/uL Chloride 93 L (96-109) mmol/L Carbon Dioxide 35.7 H (21.6-31.8) mmol/L Creatinine 0.4 L (0.6-1.5) mg/dL BUN/Creatinine Ratio 30.00 H (12.00-20.00) Ratio Glucose 134 H (70-110) mg/dL Microbiology - Last 24 Hours (Table) 09/25/24 07:56 Blood Culture - Preliminary Blood Assessment and Plan Assessment: Worsening shortness of breath secondary to acute COPD exacerbation Acute hemoptysis x 1 episode Hypovolemic hyponatremia UDS positive for benzodiazepines and tricyclic antidepressants History of CVA with residual right-sided weakness and spasms Chronic pain Crohn's disease Seizure disorder Paroxysmal atrial fibrillation on anticoagulation with Xarelto Hypertension Hyperlipidemia Anxiety/depression/bipolar disorder Ongoing nicotine addiction History of alcohol abuse, cocaine, marijuana use DVT prophylaxis and GI prophylaxis. Patient is already on Xarelto Plan: Patient will be continued on oxygen supplementation, DuoNebs and Pulmicort/Perforomist. Continue IV Solu-Medrol 60 mg every 6 hourly. Monitor H&H. Anticoagulation with Xarelto will be held due to hemoptysis.. Pulmonary was consulted for evaluation. Continue with telemonitoring.. Continue with azithromycin and. Sputum culture showed no growth so far. Sarah nue with pain management and follow-up closely. Time with Patient: Greater than 30
[2024-09-27 09:25] LABS: Basophils # (A) 0.02 X 10*3/uL (0.00-0.10); Basophils % (A) 0.1 %; Eosinophils # (A) 0.01 X 10*3/uL (0.04-0.35); Eosinophils % (A) 0.1 %; HCT 31.1 % (37.2-46.3); HGB 9.8 g/dL (12.0-15.0); Lymphocytes # (A) 2.48 X 10*3/uL (0.90-5.00); MCHC 31.5 g/dL (32.0-37.0); MCV 85.7 FL (80.0-97.0); Monocytes # (A) 1.47 X 10*3/uL (0.20-1.00); Monocytes % (A) 8.9 %; NRBC Per 100 WBC 0 X 10*3/uL (0.00-0.01); Neutrophils % (A) 75.2 %; Platelet Count 466 X 10*3/uL (140-440); RBC 3.63 X 10*6/uL (4.10-5.20); RDW 13.9 % (11.5-14.5); WBC 16.49 X 10*3/uL (4.50-10.00)
[2024-09-27 10:32] LABS: Blood Urea Nitrogen 16.9 mg/dL (9.0-27.0); Calcium 8.8 mg/dL (8.7-10.3); Carbon Dioxide 35.8 mmol/L (21.6-31.8); Chloride 94 mmol/L (96-109); Glucose 94 mg/dL (70-110); Potassium 4.4 mmol/L (3.5-5.5); Sodium 137 mmol/L (135-145)
[2024-09-27] MEDS ORDERED: VANCOMYCIN IV PER PHARMACY 1 EACH MISC MISCELLANE PRN (10:35)
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
[2024-09-27] MEDS ORDERED: CEFEPIME 1 GM in SODIUM CHLORIDE 0.9% 50 ML IVPB SCH (10:45)
[2024-09-27] MEDS: VANCOMYCIN 1,250 MG in SODIUM CHLORIDE 0.9% 250 ML IVPB SCH (12:07)
--- NOTE | 2024-09-27 12:46 | CT ---
EXAMINATION TYPE: CT chest wo con DATE OF EXAM: 09/27/2024 12:06 PM COMPARISON: 07/01/2024 CLINICAL INDICATION: Female, 64 years old with history of infection; PHH, atelectasis TECHNIQUE: Multiple axial images were obtained through the chest. Sagittal and coronal reformats were created for review. MIP was performed on a separate workstation. Contrast used: mL of (None if empty) Oral contrast used: (None if empty) CT DLP: 231 mGycm, Automated exposure control for dose reduction was used. FINDINGS: LUNGS/ PLEURA: Bronchovascular crowding the right lower lung with streaky interstitial lung markings. Centrilobular and paraseptal emphysema changes predominantly in the lung apices. No focal consolidat ion, pneumothorax or pleural effusion. AIRWAY: A few opacified airways in the right lower lung with bronchovascular crowding. HEART: Size within normal limits. MEDIASTINUM: No gross evidence of adenopathy. Restricted to mediastinum. VASCULATURE: No aortic aneurysm. MUSCULOSKELETAL: No acute osseous abnormalities, similar wedging of the T8 vertebral body with wedgin g of the T4 superior endplate. There is at least 25% height loss with sclerosis. SOFT TISSUES/LYMPH NODES: Unremarkable. LOWER NECK: No significant findings. UPPER ABDOMEN: Evidence of fat strandy changes around the colon in the upper quadrant on the left. [place] gallstones in the gallbladder lumen IMPRESSION: 1. Bronchovascular crowding in the right lower lung with a few opacified large airways correlate for post obstructive atelectasis. 2. T4 vertebral body compression deformity with 3. Moderate to severe emphysema. 4. Cholelithiasis versus biliary sludge. 5. Evidence of colitis remains in left upper quadrant seen on 07/01/2024. [facility], , 09/27/2024 12:44 PM
[2024-09-27] MEDS: CEFEPIME 2 GM in SODIUM CHLORIDE 0.9% 100 ML IVPB SCH (15:48)
--- NOTE | 2024-09-27 22:53 | P.PN ---
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 Patient presents to ER with complaints of worsening shortness of breath for the past 2 days. She was also complaining of sputum with greenish sputum production. No complaints of chest pain. Denied any fever or chills. No nausea vomiting abdominal pain or diarrhea. Chest x-ray showed bibasilar airspace opacities related to atypical pneumonia. EKG showed sinus tachycardia with heart rate 104 and QTc 383. Laboratory data showed WBC 10.6 hemoglobin 10.3 and platelets 447 sodium 134 potassium 4.5 chloride 89 bicarb is 33 9 BUN 10 and creatinine 0.48 and blood sugar 151. Troponin x 1 negative. 09/26/2024 Patient is lying in the bed. Awake alert and oriented. Still complains of shortness of breath. Currently requiring 3 L oxygen via nasal cannula. Otherwise patient states that she had episode of coughing blood, bright red about a teaspoonful x 1 today afternoon. No further episodes of bleeding. No complaints of chest pain. Denies any fever or chills. Patient is being continued on IV Solu-Medrol, DuoNebs, Pulmicort and Perforomist. Xarelto dose will be held today. Follow-up hemoglobin level will be ordered. 09/27/2024 Patient is lying in the bed. Awake alert and oriented. No complaints of chest pain. Breathing is slightly better compared to yesterday. Less bronchospastic. Otherwise patient has been afebrile.. No further episodes of hemoptysis. Patient started on broad-spectrum antibiotics with vancomycin and cefepime as per pulmonary recommendations blood cultures negative so far.No nausea vomiting abdominal pain or diarrhea. Lab data showed WBC 16.4 hemoglobin 9.8 and platelets 466 sodium 137 potassium 4.4, chloride 94, bicarb 35.8 BUN 16.9 and creatinine 0.5 and blood sugar 94. Current medications reviewed. Objective - Vital Signs Vital signs: Vital Signs Temp 98.5 F 09/27/24 13:01 Pulse 80 09/27/24 13:01 Resp 18 09/27/24 13:01 BP 119/69 09/27/24 13:01 Pulse Ox 93 L 09/27/24 13:01 FiO2 Intake & Output 09/26/24 09/27/24 09/27/24 18:59 06:59 18:59 Intake Total 220 Balance 220 Intake: Oral 220 Other: Voiding Method Bedpan Bedpan Bedpan # Voids 1 1 - Exam PHYSICAL EXAMINATION: Patient is lying in the bed mild acute distress, awake alert and oriented.. HEENT: Normocephalic. Neck is supple. Pupils reactive. Nostrils clear. Oral cavity is moist. Neck reveals no JVD, carotid bruits, or thyromegaly. CHEST EXAMINATION: Trachea is central. Symmetrical expansion. Bilateral diffuse wheezing and scattered rhonchi. Nonlabored breathing.. CARDIAC: Normal S1, S2 with no gallops. No murmurs ABDOMEN: Soft. Bowel sounds normal. No organomegaly. No abdominal bruits. Extremities: reveal no edema. No clubbing or cyanosis Neurologically awake, alert, oriented x3 with well-coordinated movements. No gross focal deficits noted Skin: No rash or skin lesions. Psychiatric: Coperative. Nonsuicidal, anxious. Musculoskeletal: No joint swelling or deformity. Normal range of motion. - Labs CBC & Chem 7: 09/27/24 06:35 09/27/24 06:35 Labs: Abnormal Lab Results - Last 24 Hours (Table) 09/27/24 09/27/24 Range/Units 06:35 06:35 WBC 16.49 H (4.50-10.00) X 10*3/uL RBC 3.63 L (4.10-5.20) X 10*6/uL Hgb 9.8 L (12.0-15.0) g/dL Hct 31.1 L (37.2-46.3) % MCHC 31.5 L (32.0-37.0) g/dL Plt Count 466 H (140-440) X 10*3/uL MPV 9.0 L (9.5-12.2) FL Immature Gran # 0.11 H (0.00-0.04) X 10*3/uL Neutrophils # 12.40 H (1.80-7.70) X 10*3/uL Monocytes # 1.47 H (0.20-1.00) X 10*3/uL Eosinophils # 0.01 L (0.04-0.35) X 10*3/uL Chloride 94 L (96-109) mmol/L Carbon Dioxide 35.8 H (21.6-31.8) mmol/L Creatinine 0.5 L (0.6-1.5) mg/dL BUN/Creatinine Ratio 33.80 H (12.00-20.00) Ratio Microbiology - Last 24 Hours (Table) 09/25/24 07:56 Blood Culture Gram Stain - Preliminary Blood Blood Culture - Preliminary Assessment and Plan Assessment: Worsening shortness of breath secondary to acute COPD exacerbation Acute hemoptysis x 1 episode on 09/26/2024 Hypovolemic hyponatremia UDS positive for benzodiazepines and tricyclic antidepressants History of CVA with residual right-sided weakness and spasms Chronic pain Crohn's disease Seizure disorder Paroxysmal atrial fibrillation on anticoagulation with Xarelto Hypertension Hyperlipidemia Anxiety/depression/bipolar disorder Ongoing nicotine addiction History of alcohol abuse, cocaine, marijuana use DVT prophylaxis and GI prophylaxis. Patient is already on Xarelto Plan: Patient will be continued on oxygen supplementation, DuoNebs and Pulmicort/Perforomist. Continue IV Solu-Medrol 60 mg every 6 hourly. Monitor H&H. No further episodes of hemoptysis. Started back on anticoagulation with Xarelto... Pulmonary was consulted for evaluation. Antibiotics changed to v ancomycin and cefepime. Continue with telemonitoring.. Sputum culture and blood culture showed no growth so far. Continue with pain management and follow-up closely. Time with Patient: Greater than 30
[2024-09-28 03:45] LABS: African American GFR (CKD) >90 (>60 ml/min/1.73 sqM); Anion Gap -2 mmol/L; Blood Urea Nitrogen 31 mg/dL (7-17); Calcium 8.7 mg/dL (8.4-10.2); Carbon Dioxide 35 mmol/L (22-30); Chloride 99 mmol/L (98-107); Glucose 161 mg/dL (74-99); Non-African American GFR(CKD) >90 (>60 ml/min/1.73 sqM); Potassium 4.2 mmol/L (3.5-5.1); Sodium 132 mmol/L (137-145)
[2024-09-28] MEDS ORDERED: VANCOMYCIN IV PER PHARMACY 1 EACH MISC MISCELLANE PRN (08:20)
--- NOTE | 2024-09-28 08:20 | P.PN ---
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 Patient presents to ER with complaints of worsening shortness of breath for the past 2 days. She was also complaining of sputum with greenish sputum production. No complaints of chest pain. Denied any fever or chills. No nausea vomiting abdominal pain or diarrhea. Chest x-ray showed bibasilar airspace opacities related to atypical pneumonia. EKG showed sinus tachycardia with heart rate 104 and QTc 383. Laboratory data showed WBC 10.6 hemoglobin 10.3 and platelets 447 sodium 134 potassium 4.5 chloride 89 bicarb is 33 9 BUN 10 and creatinine 0.48 and blood sugar 151. Troponin x 1 negative. 09/26/2024 Patient is lying in the bed. Awake alert and oriented. Still complains of shortness of breath. Currently requiring 3 L oxygen via nasal cannula. Otherwise patient states that she had episode of coughing blood, bright red about a teaspoonful x 1 today afternoon. No further episodes of bleeding. No complaints of chest pain. Denies any fever or chills. Patient is being continued on IV Solu-Medrol, DuoNebs, Pulmicort and Perforomist. Xarelto dose will be held today. Follow-up hemoglobin level will be ordered. 09/27/2024 Patient is lying in the bed. Awake alert and oriented. No complaints of chest pain. Breathing is slightly better compared to yesterday. Less bronchospastic. Otherwise patient has been afebrile.. No further episodes of hemoptysis. Patient started on broad-spectrum antibiotics with vancomycin and cefepime as per pulmonary recommendations blood cultures negative so far.No nausea vomiting abdominal pain or diarrhea. Lab data showed WBC 16.4 hemoglobin 9.8 and platelets 466 sodium 137 potassium 4.4, chloride 94, bicarb 35.8 BUN 16.9 and creatinine 0.5 and blood sugar 94. 09/28 Patient lying in bed does not look in distress However patient states she still have breathing difficulty. She denies chest pain, she denies coughing or phlegm production. She is currently on 3 L of oxygen, she states at home she uses 2.5 L She is complaining from lower abdominal pain with no significant tenderness, no specific GI or symptoms like no dysuria or change in frequency or diarrhea. She has good appetite with no nausea vomiting This pain looks mild and present since admission. On exam she has decreased air entry on both sides no significant wheezing or crepitation Review of systems CONSTITUTIONAL: No fever, no malaise, no fatigue. HEENT: No recent visual problems or hearing problems. Denied any sore throat. CARDIOVASCULAR: No orthopnea, PND, no palpitations, no syncope. NEUROLOGICAL: No headaches, no weakness, no numbness. HEMATOLOGICAL: Denies any bleeding or petechiae. GENITOURINARY: Denies any burning micturition, frequency, or urgency. MUSCULOSKELETAL/RHEUMATOLOGICAL: Denies any joint pain, swelling, or any muscle pain. Active Medications Generic Name Dose Route Start Last Admin Trade Name Freq PRN Reason Stop Dose Admin Hydrocodone Bitart/Acetaminophen 1 each 09/25/24 19:43 09/28/24 06:38 Hydrocodone/Apap 5-325mg 1 Each Tab PO 1 each Q6HR PRN Administration mod-severe Pain (4-10) Albuterol/Ipratropium 3 ml 09/25/24 16:00 09/27/24 19:26 Ipratropium-Albuterol 3 Ml Neb INHALATION 3 ml RT-QID DEX Administration Albuterol/Ipratropium 3 ml 09/25/24 13:13 Ipratropium-Albuterol 3 Ml Neb INHALATION RT-Q2H PRN Shortness Of Breath Or Wheezing Budesonide 1 mg 09/25/24 20:00 09/27/24 19:26 Budesonide 1 Mg/2 Ml Nebu INHALATION 1 mg RT-BID DEX Administration Formoterol Fumarate 20 mcg 09/25/24 20:00 09/27/24 19:26 Formoterol Fumarate 20 Mcg/2 Ml Nebu INHALATION 20 mcg RT-BID DEX Administration Gabapentin 300 mg 09/25/24 21:00 09/28/24 07:24 Gabapentin 300 Mg Cap PO 300 mg BID DEX Administration Cefepime HCl 2 gm/ Sodium 100 mls @ 25 mls/hr 09/27/24 16:00 09/28/24 07:24 Chloride IVPB 25 mls/hr Q8HR DEX Administration Vancomycin HCl 1,250 mg/ 250 mls @ 125 mls/hr 09/27/24 12:00 09/28/24 03:46 Sodium Chloride IVPB 125 mls/hr Q8H DEX Administration Levetiracetam 1,000 mg 09/25/24 21:00 09/28/24 07:24 Levetiracetam 500 Mg Tab PO 1,000 mg BID DEX Administration Methylprednisolone Sodium Succinate 60 mg 09/25/24 18:00 09/28/24 05:34 Methylprednisolone Sod Succi 125 Mg/2 Ml Vial IV 60 mg Q6HR DEX Administration Metoprolol Succinate 100 mg 09/26/24 09:00 09/28/24 07:24 Metoprolol Succinate (Er) 100 Mg Tab.Er.24h PO 100 mg DAILY DEX Administration Montelukast Sodium 10 mg 09/25/24 21:00 09/27/24 20:00 Montelukast 10 Mg Tab PO Not Given HS DEX Naloxone HCl 0.2 mg 09/25/24 13:13 Naloxone 0.4 Mg/Ml 1 Ml Vial IVP Q2M PRN Opioid Reversal Ondansetron HCl 4 mg 09/26/24 11:26 09/27/24 19:51 Ondansetron 4 Mg/2 Ml Vial IVP 4 mg Q6HR PRN Administration Nausea And Vomiting Pantoprazole Sodium 40 mg 09/26/24 07:30 09/28/24 06:38 Pantoprazole 40 Mg Tablet PO 40 mg 0730 DEX Administration Quetiapine Fumarate 100 mg 09/25/24 21:00 09/27/24 20:23 Quetiapine 100 Mg Tab PO 100 mg HS DEX Administration Rivaroxaban 20 mg 09/26/24 09:00 09/28/24 07:25 Rivaroxaban 20 Mg Tab PO 20 mg DAILY DEX Administration Protocol Objective - Vital Signs Vital signs: Vital Signs Temp 98.4 F 09/28/24 01:24 Pulse 82 09/28/24 01:24 Resp 17 09/28/24 01:24 BP 94/55 09/28/24 01:24 Pulse Ox 88 L 09/28/24 01:24 FiO2 Intake & Output 09/27/24 09/28/24 09/28/24 18:59 06:59 18:59 Intake Total 450 Balance 450 Intake: Oral 450 Other: Voiding Method Bedpan Bedpan # Voids 1 # Bowel Movements 2 - Exam GENERAL: The patient is alert and oriented x3, not in any acute distress. Well developed, well nourished. HEENT: Pupils are round and equally reacting to light. EOMI. No scleral icterus. No conjunctival pallor. Normocephalic, atraumatic. No pharyngeal erythema. No thyromegaly. CARDIOVASCULAR: S1 and S2 present. No murmurs, rubs, or gallops. -PULMONARY: Decreased breath sounds on both sides, no wheezing , no crackles. ABDOMEN: Soft, nontender, nondistended, normoactive bowel sounds. No palpable organomegaly. MUSCULOSKELETAL: No joint swelling or deformity. EXTREMITIES: No cyanosis, clubbing, or pedal edema. NEUROLOGICAL: Gross neurological examination did not reveal any focal deficits. SKIN: No rashes. no petechiae. - Labs CBC & Chem 7: 09/27/24 06:35 09/28/24 02:54 Labs: Abnormal Lab Results - Last 24 Hours (Table) 09/27/24 09/27/24 09/28/24 Range/Units 06:35 06:35 02:54 WBC 16.49 H (4.50-10.00) X 10*3/uL RBC 3.63 L (4.10-5.20) X 10*6/uL Hgb 9.8 L (12.0-15.0) g/dL Hct 31.1 L (37.2-46.3) % MCHC 31.5 L (32.0-37.0) g/dL Plt Count 466 H (140-440) X 10*3/uL MPV 9.0 L (9.5-12.2) FL Immature Gran # 0.11 H (0.00-0.04) X 10*3/uL Neutrophils # 12.40 H (1.80-7.70) X 10*3/uL Monocytes # 1.47 H (0.20-1.00) X 10*3/uL Eosinophils # 0.01 L (0.04-0.35) X 10*3/uL Sodium 132 L (137-145) mmol/L Chloride 94 L (96-109) mmol/L Carbon Dioxide 35.8 H 35 H (21.6-31.8) mmol/L BUN 31 H (7-17) mg/dL Creatinine 0.5 L (0.6-1.5) mg/dL BUN/Creatinine Ratio 33.80 H (12.00-20.00) Ratio Glucose 161 H (74-99) mg/dL Microbiology - Last 24 Hours (Table) 09/25/24 07:56 Blood Culture Gram Stain - Preliminary Blood Blood Culture - Preliminary Assessment and Plan Assessment: Worsening shortness of breath secondary to acute COPD exacerbation Bilateral basal pneumonia suspected Acute hemoptysis x 1 episode. Evaluated by auto body repairer most likely secondary to above Hypovolemic hyponatremia, mild UDS positive for benzodiazepines and tricyclic antidepressants History of CVA with residual right-sided weakness and spasms Chronic pain Crohn's disease Seizure disorder Paroxysmal atrial fibrillation on anticoagulation with Xarelto Hypertension Hyperlipidemia Anxiety/depression/bipolar disorder Ongoing nicotine addiction History of alcohol abuse, cocaine, marijuana use Plan: Continue with IV Solu-Medrol Continue with antibiotics per pulmonary team, currently on IV cefepime and IV Vanco. We will add pharmacy to dose vancomycin Continued home dose of Xarelto Pulmonary team consult on the case Labs and medication were reviewed.. Continue same treatment. Continue with symptomatic treatment. Resume home medication. Monitor labs and vitals. DVT and GI prophylaxis. Further recommendations as per clinical course of the patient DVT prophylaxis: Xarelto GI Prophylaxis: P Protonix PT/OT: Pending Prognosis is guarded
[2024-09-28 09:18] LABS: Basophils # (A) 0.01 X 10*3/uL (0.00-0.10); Basophils % (A) 0.1 %; Eosinophils # (A) 0 X 10*3/uL (0.04-0.35); Eosinophils % (A) 0 %; HCT 31.9 % (37.2-46.3); HGB 9.7 g/dL (12.0-15.0); Lymphocytes # (A) 1.54 X 10*3/uL (0.90-5.00); Lymphocytes % (A) 14.3 %; MCH 26.5 pg (27.0-32.0); MCHC 30.4 g/dL (32.0-37.0); MCV 87.2 FL (80.0-97.0); Mean Platelet Volume 9.2 FL (9.5-12.2); Monocytes % (A) 11.2 %; NRBC Per 100 WBC 0 X 10*3/uL (0.00-0.01); Neutrophils # (A) 7.88 X 10*3/uL (1.80-7.70); Neutrophils % (A) 73.4 %; Platelet Count 438 X 10*3/uL (140-440); RBC 3.66 X 10*6/uL (4.10-5.20); RDW 14.2 % (11.5-14.5); WBC 10.74 X 10*3/uL (4.50-10.00)
[2024-09-28] MEDS: VANCOMYCIN 1,000 MG in SODIUM CHLORIDE 0.9% 250 ML IVPB SCH (22:08)
[2024-09-28] MEDS: VANCOMYCIN TROUGH DUE 1 EACH MISC MISCELLANE ONE (22:09)
[2024-09-29 08:22] LABS: Basophils % (A) 0 %; Eosinophils % (A) 0 %; HCT 33.8 % (34.0-46.0); HGB 11.1 gm/dL (11.4-16.0); Lymphocytes % (A) 11 %; MCH 27.5 pg (25.0-35.0); MCHC 32.8 g/dL (31.0-37.0); MCV 83.8 fL (80.0-100.0); Mean Platelet Volume 7.1; Monocytes # (A) 0.3 k/uL (0-1.0); Monocytes % (A) 3 %; Neutrophils # (A) 7.3 k/uL (1.3-7.7); Neutrophils % (A) 85 %; Platelet Count 407 k/uL (150-450); RBC 4.03 m/uL (3.80-5.40); RDW 15.3 % (11.5-15.5); WBC 8.6 k/uL (3.8-10.6)
[2024-09-29 08:27] LABS: African American GFR (CKD) >90 (>60 ml/min/1.73 sqM); Anion Gap 1 mmol/L; Blood Urea Nitrogen 22 mg/dL (7-17); Calcium 8.5 mg/dL (8.4-10.2); Carbon Dioxide 33 mmol/L (22-30); Chloride 100 mmol/L (98-107); Glucose 119 mg/dL (74-99); Non-African American GFR(CKD) >90 (>60 ml/min/1.73 sqM); Potassium 4.3 mmol/L (3.5-5.1); Sodium 134 mmol/L (137-145)
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
--- NOTE | 2024-09-29 15:53 | P.PN ---
Subjective Progress Note Date: 09/29/24 Principal diagnosis: Reason for follow-up is pneumonia/positive blood culture Patient is a 64-year-old female with a past medical history significant for COPD coronary disease hypertension hyperlipidemia osteoarthritis seizure disorder atrial fibrillation patient has been brought to the hospital for evaluation of increasing shortness of breath did have a CT of the chest concerning for possible right lower lobe postobstructive atelectasis/pneumonia. On today's evaluation that is 09/29/2024, Patient is afebrile this morning patient denies having any chest pain breathing slightly comfortably currently reported nasal oxygen she did have a cough intermittent sputum no nausea vomiting or diarrhea. Patient white count is down to 8.6, creatinine 0.54 Vanco trough is 20 blood culture gram-positive cocci Objective - Vital Signs Vital signs: Vital Signs Temp 98.1 F 09/29/24 07:10 Pulse 76 09/29/24 15:42 Resp 18 09/29/24 07:10 BP 157/87 09/29/24 07:10 Pulse Ox 93 L 09/29/24 07:10 FiO2 Intake & Output 09/28/24 09/29/24 09/29/24 18:59 06:59 18:59 Other: # Voids 2 # Bowel Movements 1 - Exam GENERAL DESCRIPTION: An elderly female lying in bed in no distress RESPIRATORY SYSTEM: Unlabored breathing , decreased breath sounds at bases HEART: S1 S2 regular rate and rhythm , ABDOMEN: Soft , no tenderness EXTREMITIES: No edema feet - Labs CBC & Chem 7: 09/29/24 07:36 09/29/24 07:36 Labs: Abnormal Lab Results - Last 24 Hours (Table) 09/29/24 09/29/24 Range/Units 07:36 07:36 Hgb 11.1 L (11.4-16.0) gm/dL Hct 33.8 L (34.0-46.0) % Sodium 134 L (137-145) mmol/L Carbon Dioxide 33 H (22-30) mmol/L BUN 22 H (7-17) mg/dL Glucose 119 H (74-99) mg/dL Assessment and Plan (1) Leukocytosis Current Visit: No Status: Acute Code(s): D72.829 - ELEVATED WHITE BLOOD CELL COUNT, UNSPECIFIED SNOMED Code(s): 407866854 (2) Pneumonia Current Visit: No Status: Acute Code(s): J18.9 - PNEUMONIA, UNSPECIFIED ORGANISM SNOMED Code(s): 359621115 (3) Positive blood culture Current Visit: Yes Status: Acute Code(s): R78.81 - BACTEREMIA SNOMED Code(s): 274793105 Plan: 1patient presented to hospital with increasing shortness of breath which is likely multifactorial in this patient possible acute exacerbation with acute bronchitis however there was some abnormality seen on the CT underlying pneumo ryan not excluded keeping in mind patient has been out of the hospital will need to cover for resistant gram-positive as well as gram-negative pathogen. 2leukocytosis possible related to steroid versus pneumonia, patient white count has normalized 3-positive blood culture with gram-positive cocci await final ID sensitivity questionably related to pneumonia versus contamination 4-try to obtain sputum for Gram stain and culture 5- patient is currently being treated with cefepime and vancomycin while waiting for the workup to be completed Dictation was produced using [email or web address] dictation software. please excuse any grammatical, word or spelling errors. Time with Patient: Less than 30
[2024-09-30 05:27] LABS: African American GFR (CKD) >90 (>60 ml/min/1.73 sqM); Non-African American GFR(CKD) >90 (>60 ml/min/1.73 sqM)
[2024-09-30] MEDS: VANCOMYCIN TROUGH DUE 1 EACH MISC MISCELLANE ONE (05:40)
[2024-09-30] MEDS: VANCOMYCIN 1,250 MG in SODIUM CHLORIDE 0.9% 250 ML IVPB SCH (08:54)
[2024-09-30] MEDS ORDERED: VANCOMYCIN 750 MG in SODIUM CHLORIDE 0.9% 250 ML IVPB SCH (09:00)
--- NOTE | 2024-09-30 11:16 | P.PN ---
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 Patient presents to ER with complaints of worsening shortness of breath for the past 2 days. She was also complaining of sputum with greenish sputum production. No complaints of chest pain. Denied any fever or chills. No nausea vomiting abdominal pain or diarrhea. Chest x-ray showed bibasilar airspace opacities related to atypical pneumonia. EKG showed sinus tachycardia with heart rate 104 and QTc 383. Laboratory data showed WBC 10.6 hemoglobin 10.3 and platelets 447 sodium 134 potassium 4.5 chloride 89 bicarb is 33 9 BUN 10 and creatinine 0.48 and blood sugar 151. Troponin x 1 negative. 09/26/2024 Patient is lying in the bed. Awake alert and oriented. Still complains of shortness of breath. Currently requiring 3 L oxygen via nasal cannula. Otherwise patient states that she had episode of coughing blood, bright red about a teaspoonful x 1 today afternoon. No further episodes of bleeding. No complaints of chest pain. Denies any fever or chills. Patient is being continued on IV Solu-Medrol, DuoNebs, Pulmicort and Perforomist. Xarelto dose will be held today. Follow-up hemoglobin level will be ordered. 09/27/2024 Patient is lying in the bed. Awake alert and oriented. No complaints of chest pain. Breathing is slightly better compared to yesterday. Less bronchospastic. Otherwise patient has been afebrile.. No further episodes of hemoptysis. Patient started on broad-spectrum antibiotics with vancomycin and cefepime as per pulmonary recommendations blood cultures negative so far.No nausea vomiting abdominal pain or diarrhea. Lab data showed WBC 16.4 hemoglobin 9.8 and platelets 466 sodium 137 potassium 4.4, chloride 94, bicarb 35.8 BUN 16.9 and creatinine 0.5 and blood sugar 94. 09/28 Patient lying in bed does not look in distress However patient states she still have breathing difficulty. She denies chest pain, she denies coughing or phlegm production. She is currently on 3 L of oxygen, she states at home she uses 2.5 L She is complaining from lower abdominal pain with no significant tenderness, no specific GI or symptoms like no dysuria or change in frequency or diarrhea. She has good appetite with no nausea vomiting This pain looks mild and present since admission. On exam she has decreased air entry on both sides no significant wheezing or crepitation 09/30 Patient states she still complaining shortness of breath. However on examination no significant wheezing or crepitation. No tachypnea was noted as well Patient denies any depression or feeling down I advised the patient to get out of bed to chair today and she agrees. She remains on broad-spectrum antibiotics with IV vancomycin and cefepime and high-dose Solu-Medrol 60 mg as well as Xarelto. On examination patient does not have leg edema or signs of fluid overload Objective - Vital Signs Vital signs: Vital Signs Temp 98.2 F 09/30/24 08:00 Pulse 67 09/30/24 08:00 Resp 16 09/30/24 08:00 BP 153/69 09/30/24 08:00 Pulse Ox 96 09/30/24 08:00 FiO2 Intake & Output 09/29/24 09/30/24 09/30/24 18:59 06:59 18:59 Intake Total 950 Balance 950 Intake: Intake, IV Titration 450 Amount Cefepime 2 gm In Sodium 200 Chloride 0.9% 100 ml @ 25 mls/hr IVPB Q8HR DEX Rx# :[id number] Vancomycin 1,000 mg In 250 Sodium Chloride 0.9% 250 ml @ 125 mls/hr IVPB Q8H DEX Rx#:[id number] Oral 500 Other: # Voids 2 2 - Exam GENERAL: The patient is alert and oriented x3, not in any acute distress. Well developed, well nourished. HEENT: Pupils are round and equally reacting to light. EOMI. No scleral icterus. No conjunctival pallor. Normocephalic, atraumatic. No pharyngeal erythema. No thyromegaly. CARDIOVASCULAR: S1 and S2 present. No murmurs, rubs, or gallops. -PULMONARY: Decreased breath sounds on both sides, no wheezing , no crackles. ABDOMEN: Soft, nontender, nondistended, normoactive bowel sounds. No palpable organomegaly. MUSCULOSKELETAL: No joint swelling or deformity. EXTREMITIES: No cyanosis, clubbing, or pedal edema. NEUROLOGICAL: Gross neurological examination did not reveal any focal deficits. SKIN: No rashes. no petechiae. - Labs CBC & Chem 7: 09/29/24 07:36 09/30/24 04:05 Assessment and Plan Assessment: Worsening shortness of breath secondary to acute COPD exacerbation Bilateral basal pneumonia suspected Acute hemoptysis x 1 episode. Evaluated by director career services most likely secondary to above Hypovolemic hyponatremia, mild UDS positive for benzodiazepines and tricyclic antidepressants History of CVA with residual right-sided weakness and spasms Chronic pain Crohn's disease Seizure disorder Paroxysmal atrial fibrillation on anticoagulation with Xarelto Hypertension Hyperlipidemia Anxiety/depression/bipolar disorder Ongoing nicotine addiction History of alcohol abuse, cocaine, marijuana use Plan: Continue with IV Solu-Medrol Continue with antibiotics per pulmonary team, currently on IV cefepime and IV Vanco. We continue with to dose vancomycin. ID team consult Continued home dose of Xarelto Pulmonary team consult on the case Labs and medication were reviewed.. Continue same treatment. Continue with symptomatic treatment. Resume home medication. Monitor labs and vitals. DVT and GI prophylaxis. Further recommendations as per clinical course of the patient DVT prophylaxis: Xarelto GI Prophylaxis: P Protonix PT/OT: Pending Prognosis is guarded
--- NOTE | 2024-09-30 11:17 | P.PN ---
Subjective Progress Note Date: 09/30/24 Principal diagnosis: Bilateral basal pneumonia/healthcare associated pneumonia would recommend to use broad-spectrum antibiotics like Zosyn with vancomycin or cefepime with vancomy bharath Gram-positive cocci in clusters, antibiotic as above with IV vancomycin Hemoptysis, likely related to airway inflammation with some contribution from direct oral anticoagulant will monitor and trend, if continuous pattern is seen consider stopping direct oral anticoagulant transiently History of pulmonary nodules subcentimeter in size thought to be inflammatory, patient no-show in the office we will get a CT scan of the chest without contrast Advance Crohn's disease, on supportive care in remission Severe end-stage COPD with exacerbation, bronchodilators IV steroids and breathing treatments and inhaled aerosolized steroids History of extensive smoking and nicotine use Seizure disorder, no new seizures seen, continue Keppra Generalized anxiety disorder Major depression September 30, 2024, patient seen eval examined during rounds labs reviewed medication care plan discussed, patient remains on 3 L nasal cannula saturation 96% hemodynamic status however stable, patient remains afebrile, blood culture were positive for gram-positive cocci in clusters, final ID is pending remains on bronchodilator cefepime continuation of home medicine IV Solu-Medrol every [address] scan of the chest performed on September 27 right lower lobe bronchovascular markings seen along with opacified large airway suggestive of postobstructive atelectasis likely mucous plug discussed with her at length about bronchoscopy and lavage patient agreed to it, is still intermittently b ronchospastic we will hold another 24 to 48 hours and likely bronc BAL for pulmonary toilet in the next 48 hours 64-year-old female presented to the emergency department with increasing shortness of breath going on for 2 to 3 days, patient has a longstanding history of smoking and nicotine use, patient uses albuterol nebulizer but was not helping came into the hospital for further evaluation. Cough is associated with greenish sputum, chest x-ray significant for bilateral basilar infiltrate sug gestive of pneumonia, significant labs include WBC count of 10.6, hemoglobin of 10.3 chemistry fairly within normal limit BUN/creatinine also normal troponin were negative. Patient uses 3 L nasal cannula patient had episode of hemoptysis about 1 teaspoon x 1 related to severe coughing, denies any previous episode of hemoptysis before. Currently patient is on bronchodilator, with DuoNeb as well as inhaled aerosolized steroids, continuation of her home medicines, patient has been on Solu-Medrol 60 mg every 6 and direct acting oral anticoagulant patient has been getting Zithromax which has been discontinued blood culture came back positive for gram-positive cocci in clusters. Labs from today significant for white cell count is up to 16.49, procalcitonin however 0.03, lactic acid 0.9, LFTs within normal limit Her prior medical history significant for chronic atrial fibrillation on antico agulation with direct acting oral anticoagulant, coronary artery disease, COPD, dyslipidemia, hypertension hypertensive cardiovascular disease, seizure disorder, syncope pulmonary nodules being followed on outpatient, history of seizure disorder, Crohn's disease, CVA, active smoking, prior history of marijuana and cocaine use Objective - Vital Signs Vital signs: Vital Signs Temp 98.2 F 09/30/24 08:00 Pulse 67 09/30/24 08:00 Resp 16 09/30/24 08:00 BP 153/69 09/30/24 08:00 Pulse Ox 96 09/30/24 08:00 FiO2 Intake & Output 09/29/24 09/30/24 09/30/24 18:59 06:59 18:59 Intake Total 950 Balance 950 Intake: Intake, IV Titration 450 Amount Cefepime 2 gm In Sodium 200 Chloride 0.9% 100 ml @ 25 mls/hr IVPB Q8HR DEX Rx# :[id number] Vancomycin 1,000 mg In 250 Sodium Chloride 0.9% 250 ml @ 125 mls/hr IVPB Q8H DEX Rx#:[id number] Oral 500 Other: # Voids 2 2 - Exam - Constitutional General appearance: average body habitus, disheveled - EENT Eyes: abnormal pupil, EOMI, PERRLA ENT: normal oropharynx Ears: bilateral: normal - Neck Carotids: bilateral: upstroke normal - Respiratory Respiratory: bilateral: diminished, wheezing (With Rales at the bases) - Cardiovascular Rhythm: regular Heart sounds: normal: S1, S2 - Gastrointestinal General gastrointestinal: normal bowel sounds - Integumentary Integumentary: normal turgor - Neurologic Neurologic: CNII-XII intact - Musculoskeletal Musculoskeletal: gait normal, generalized weakness, strength equal bilaterally - Psychiatric Psychiatric: A&O x's 3, appropriate affect, intact judgment & insight - Labs CBC & Chem 7: 09/29/24 07:36 09/30/24 04:05 Assessment and Plan Assessment: Bilateral basal pneumonia/healthcare associated pneumonia would recommend continue broad-spectrum antibiotics cefepime with vancomycin Right lower lobe infiltrate/atelectasis with mucous plugging will discuss with patient about bronchoscopy Gram-positive cocci in clusters, antibiotic as above with IV vancomycin Hemoptysis, likely related to airway inflammation with some contribution from direct oral anticoagulant will monitor and trend, if continuous pattern is seen consider stopping direct oral anticoagulant transiently History of pulmonary nodules subcentimeter in size thought to be inflammatory, patient no-show in the office we will get a CT scan of the chest without contrast Advance Crohn's disease, on supportive care in remission Severe end-stage COPD with exacerbation, bronchodilators IV steroids and breathing treatments and inhaled aerosolized steroids History of extensive smoking and nicotine use Seizure disorder, no new seizures seen, continue Keppra Generalized anxiety disorder Major depression Plan: Reviewed culture results and report and CT scan CT scan of the chest as well, schedule bronchoscopy and washing and pulmonary toilet in next 24 to 48 hours when patient slightly more stabilized Time with Patient: Greater than 30
--- NOTE | 2024-10-01 07:54 | P.PN ---
Subjective Progress Note Date: 09/30/24 Principal diagnosis: Reason for follow-up is pneumonia/positive blood culture Patient is a 64-year-old female with a past medical history significant for COPD coronary disease hypertension hyperlipidemia osteoarthritis seizure disorder atrial fibrillation patient has been brought to the hospital for evaluation of increasing shortness of breath did have a CT of the chest concerning for possible right lower lobe postobstructive atelectasis/pneumonia. On today's evaluation that is 09/30/2024,the patient denies any fever or any chills, patient is breathing comfortably on 3 L nasal cannula oxygen, the patient denies chest pain shortness of breath and no worsening cough, patient denies abdominal pain, no nausea vomiting or diarrhea. Patient white count 8.6 as of yesterday creatinine 0.55 Vanco trough is 22.9 Objective - Vital Signs Vital signs: Vital Signs Temp 98.2 F 09/30/24 08:00 Pulse 72 09/30/24 11:51 Resp 16 09/30/24 08:00 BP 153/69 09/30/24 08:00 Pulse Ox 96 09/30/24 08:00 FiO2 Intake & Output 09/29/24 09/30/24 09/30/24 18:59 06:59 18:59 Intake Total 950 Balance 950 Intake: Intake, IV Titration 450 Amount Cefepime 2 gm In Sodium 200 Chloride 0.9% 100 ml @ 25 mls/hr IVPB Q8HR DEX Rx# :[id number] Vancomycin 1,000 mg In 250 Sodium Chloride 0.9% 250 ml @ 125 mls/hr IVPB Q8H DEX Rx#:[id number] Oral 500 Other: # Voids 2 2 - Exam GENERAL DESCRIPTION: An elderly female lying in bed in no distress RESPIRATORY SYSTEM: Unlabored breathing , decreased breath sounds at bases HEART: S1 S2 regular rate and rhythm , ABDOMEN: Soft , no tenderness EXTREMITIES: No edema feet - Labs CBC & Chem 7: 09/29/24 07:36 09/30/24 04:05 Assessment and Plan (1) Leukocytosis Current Visit: No Status: Acute Code(s): D72.829 - ELEVATED WHITE BLOOD CELL COUNT, UNSPECIFIED SNOMED Code(s): 318966077 (2) Pneumonia Current Visit: No Status: Acute Code(s): J18.9 - PNEUMONIA, UNSPECIFIED ORGANISM SNOMED Code(s): 650144425 (3) Positive blood culture Current Visit: Yes Status: Acute Code(s): R78.81 - BACTEREMIA SNOMED Code(s): 450481803 Plan: 1patient presented to hospital with increasing shortness of breath which is likely multifactorial in this patient possible acute exacerbation with acute bronchitis however there was some abnormality seen on the CT underlying p neumonia not excluded keeping in mind patient has been out of the hospital will need to cover for resistant gram-positive as well as gram-negative pathogen. 2leukocytosis possible related to steroid versus pneumonia, patient white count has normalized 3-positive blood culture with gram-positive cocci await final ID sensitivity questionably related to pneumonia versus contamination 4-sputum culture and MRSA nasal screen not completed 5- patient will be treated with cefepime and vancomycin and monitor clinical course closely Dictation was produced using [employer] dictation software. please excuse any grammatical, word or spelling errors. Time with Patient: Less than 30
[2024-10-01 09:21] LABS: HCT 34.1 % (37.2-46.3); HGB 10.7 g/dL (12.0-15.0); MCH 26.3 pg (27.0-32.0); MCHC 31.4 g/dL (32.0-37.0); MCV 83.8 FL (80.0-97.0); NRBC Per 100 WBC 0 X 10*3/uL (0.00-0.01); Platelet Count 352 X 10*3/uL (140-440); RBC 4.07 X 10*6/uL (4.10-5.20); RDW 14.6 % (11.5-14.5); WBC 10.81 X 10*3/uL (4.50-10.00)
[2024-10-01 09:22] LABS: Basophils # (A) 0.01 X 10*3/uL (0.00-0.10); Basophils % (A) 0.1 %; Eosinophils # (A) 0 X 10*3/uL (0.04-0.35); Eosinophils % (A) 0 %; Lymphocytes # (A) 1.36 X 10*3/uL (0.90-5.00); Lymphocytes % (A) 12.6 %; Monocytes # (A) 0.75 X 10*3/uL (0.20-1.00); Monocytes % (A) 6.9 %; Neutrophils # (A) 8.52 X 10*3/uL (1.80-7.70); Neutrophils % (A) 78.8 %
--- NOTE | 2024-10-01 10:26 | P.PN ---
Subjective Progress Note Date: 10/01/24 Principal diagnosis: Bilateral basal pneumonia/healthcare associated pneumonia would recommend to use broad-spectrum antibiotics like Zosyn with vancomycin or cefepime with vancomy bharath Gram-positive cocci in clusters, antibiotic as above with IV vancomycin Hemoptysis, likely related to airway inflammation with some contribution from direct oral anticoagulant will monitor and trend, if continuous pattern is seen consider stopping direct oral anticoagulant transiently History of pulmonary nodules subcentimeter in size thought to be inflammatory, patient no-show in the office we will get a CT scan of the chest without contrast Advance Crohn's disease, on supportive care in remission Severe end-stage COPD with exacerbation, bronchodilators IV steroids and breathing treatments and inhaled aerosolized steroids History of extensive smoking and nicotine use Seizure disorder, no new seizures seen, continue Keppra Generalized anxiety disorder Major depression October 01, 2024, patient seen eval examined during rounds labs reviewed medications with care plan discussed, respiratory status is still marginal ongoing cough congestion is present patient very weak to expectorate respiratory secretion, CT scan finding reviewed with the patient, best course of infection would be to proceed with bronchoscopy and pulmonary toilet as patient cannot ring up the respiratory secretion and mucous plug, patient is afebrile hemodynamic status stable saturation is 97% 2 L, labs from today reviewed WBC is 10.8, hemoglobin hematocrit 10.7/34 platelet count 352 chemistry not done today medications reviewed patient remains on IV steroids bronchodilators and IV cefepime with vancomycin, more than a week have been positive by and still do not have ID on gram-positive cocci in clusters patient remains on Vanco and cefepime and ID service following September 30, 2024, patient seen eval examined during rounds labs reviewed medication care plan discussed, patient remains on 3 L nasal cannula saturation 96% hemodynamic status however stable, patient remains afebrile, blood culture were positive for gram-positive cocci in clusters, final ID is pending remains on bronchodilator cefepime continuation of home medicine IV Solu-Medrol every [address] scan of the chest performed on September 27 right lower lobe bronchovascular markings seen along with opacified large airway suggestive of postobstructive atelectasis likely mucous plug discussed with her at length about bronchoscopy and lavage patient agreed to it, is still intermittently bronchospastic we will hold another 24 to 48 hours and likely bronc BAL for pulmonary toilet in the next 48 hours 64-year-old female presented to the emergency department with increasing shortness of breath going on for 2 to 3 days, patient has a longstanding history of smoking and nicotine use, patient uses albuterol nebulizer but was not helping came into the hospital for further evaluation. Cough is associated with greenish sputum, chest x-ray significant for bilateral basilar infiltrate suggestive of pneumonia, significant labs include WBC count of 10.6, hemoglobin of 10.3 chemistry fairly within normal limit BUN/creatinine also normal troponin were negative. Patient uses 3 L nasal cannula patient had episode of hemoptysis about 1 teaspoon x 1 related to severe coughing, denies any previous episode of hemoptysis before. Currently patient is on bronchodilator, with DuoNeb as well as inhaled aerosolized steroids, continuation of her home medicines, patient has been on Solu-Medrol 60 mg every 6 and direct acting oral anticoagulant patient has been getting Zithromax which has been discontinued blood culture came back positive for gram-positive cocci in clusters. Labs from today significant for w naveen cell count is up to 16.49, procalcitonin however 0.03, lactic acid 0.9, LFTs within normal limit Her prior medical history significant for chronic atrial fibrillation on anticoagulation with direct acting oral anticoagulant, coronary artery disease, COPD, dyslipidemia, hypertension hypertensive cardiovascular disease, seizure disorder, syncope pulmonary nodules being followed on outpatient, history of seizure disorder, Crohn's disease, CVA, active smoking, prior history of marijuana and cocaine use Objective - Vital Signs Vital signs: Vital Signs Temp 98.3 F 10/01/24 08:00 Pulse 80 10/01/24 08:35 Resp 24 10/01/24 08:00 BP 161/70 10/01/24 08:00 Pulse Ox 97 10/01/24 08:00 FiO2 Intake & Output 09/30/24 10/01/24 10/01/24 18:59 06:59 18:59 Intake Total 100 Balance 100 Intake: Oral 100 Other: Voiding Method Bedpan # Voids 2 1 - Exam - Constitutional General appearance: average body habitus, disheveled - EENT Eyes: abnormal pupil, EOMI, PERRLA ENT: normal oropharynx Ears: bilateral: normal - Neck Carotids: bilateral: upstroke normal - Respiratory Respiratory: bilateral: diminished, wheezing (With Rales at the bases) - Cardiovascular Rhythm: regular Heart sounds: normal: S1, S2 - Gastrointestinal General gastrointestinal: normal bowel sounds - Integumentary Integumentary: normal turgor - Neurologic Neurologic: CNII-XII intact - Musculoskeletal Musculoskeletal: gait normal, generalized weakness, strength equal bilaterally - Psychiatric Psychiatric: A&O x's 3, appropriate affect, intact judgment & insight - Labs CBC & Chem 7: 10/01/24 03:23 09/30/24 04:05 Labs: Abnormal Lab Results - Last 24 Hours (Table) 10/01/24 Range/Units 03:23 WBC 10.81 H (4.50-10.00) X 10*3/uL RBC 4.07 L (4.10-5.20) X 10*6/uL Hgb 10.7 L (12.0-15.0) g/dL Hct 34.1 L (37.2-46.3) % MCH 26.3 L (27.0-32.0) pg MCHC 31.4 L (32.0-37.0) g/dL RDW 14.6 H (11.5-14.5) % MPV 9.0 L (9.5-12.2) FL Immature Gran # 0.17 H (0.00-0.04) X 10*3/uL Neutrophils # 8.52 H (1.80-7.70) X 10*3/uL Eosinophils # 0 L (0.04-0.35) X 10*3/uL Assessment and Plan Assessment: Bilateral basal pneumonia/healthcare associated pneumonia would recommend continue broad-spectrum antibiotics cefepime with vancomycin Right lower lobe infiltrate/atelectasis with mucous plugging discussed with patient about bronchoscopy, explained pros and cons patient is in agreement we will schedule for tomorrow already talked to endoscopy and boarding, also talk to the RN about n.p.o. after midnight and consultation Gram-positive cocci in clusters, antibiotic as above with IV vancomycin Hemoptysis, likely related to airway inflammation with some contribution from direct oral anticoagulant will monitor and trend, if continuous pattern is seen consider stopping direct oral anticoagulant transiently History of pulmonary nodules subcentimeter in size thought to be inflammatory, patient no-show in the office we will get a CT scan of the chest without contrast Advance Crohn's disease, on supportive care in remission Severe end-stage COPD with exacerbation, bronchodilators IV steroids and breathing treatments and inhaled aerosolized steroids History of extensive smoking and nicotine use Seizure disorder, no new seizures seen, continue Radha Generalized anxiety disorder Major depression Plan: Reviewed culture results and report and CT scan CT scan of the chest as well, schedule bronchoscopy and washing and pulmonary toilet in next 24 hours, procedure explained to the patient Time with Patient: Greater than 30
[2024-10-01 10:27] LABS: Blood Urea Nitrogen 25.7 mg/dL (9.0-27.0); Calcium 8.5 mg/dL (8.7-10.3); Carbon Dioxide 30.5 mmol/L (21.6-31.8); Chloride 98 mmol/L (96-109); Glucose 122 mg/dL (70-110); Potassium 4.1 mmol/L (3.5-5.5); Sodium 137 mmol/L (135-145)
--- NOTE | 2024-10-01 12:39 | P.PN ---
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 Patient presents to ER with complaints of worsening shortness of breath for the past 2 days. She was also complaining of sputum with greenish sputum production. No complaints of chest pain. Denied any fever or chills. No nausea vomiting abdominal pain or diarrhea. Chest x-ray showed bibasilar airspace opacities related to atypical pneumonia. EKG showed sinus tachycardia with heart rate 104 and QTc 383. Laboratory data showed WBC 10.6 hemoglobin 10.3 and platelets 447 sodium 134 potassium 4.5 chloride 89 bicarb is 33 9 BUN 10 and creatinine 0.48 and blood sugar 151. Troponin x 1 negative. 09/26/2024 Patient is lying in the bed. Awake alert and oriented. Still complains of shortness of breath. Currently requiring 3 L oxygen via nasal cannula. Otherwise patient states that she had episode of coughing blood, bright red about a teaspoonful x 1 today afternoon. No further episodes of bleeding. No complaints of chest pain. Denies any fever or chills. Patient is being continued on IV Solu-Medrol, DuoNebs, Pulmicort and Perforomist. Xarelto dose will be held today. Follow-up hemoglobin level will be ordered. 09/27/2024 Patient is lying in the bed. Awake alert and oriented. No complaints of chest pain. Breathing is slightly better compared to yesterday. Less bronchospastic. Otherwise patient has been afebrile.. No further episodes of hemoptysis. Patient started on broad-spectrum antibiotics with vancomycin and cefepime as per pulmonary recommendations blood cultures negative so far.No nausea vomiting abdominal pain or diarrhea. Lab data showed WBC 16.4 hemoglobin 9.8 and platelets 466 sodium 137 potassium 4.4, chloride 94, bicarb 35.8 BUN 16.9 and creatinine 0.5 and blood sugar 94. 09/28 Patient lying in bed does not look in distress However patient states she still have breathing difficulty. She denies chest pain, she denies coughing or phlegm production. She is currently on 3 L of oxygen, she states at home she uses 2.5 L She is complaining from lower abdominal pain with no significant tenderness, no specific GI or symptoms like no dysuria or change in frequency or diarrhea. She has good appetite with no nausea vomiting This pain looks mild and present since admission. On exam she has decreased air entry on both sides no significant wheezing or crepitation 09/30 Patient states she still complaining shortness of breath. However on examination no significant wheezing or crepitation. No tachypnea was noted as well Patient denies any depression or feeling down I advised the patient to get out of bed to chair today and she agrees. She remains on broad-spectrum antibiotics with IV vancomycin and cefepime and high-dose Solu-Medrol 60 mg as well as Xarelto. On examination patient does not have leg edema or signs of fluid overload 10/01 Patient is still with respiratory difficulty. Also she feels very weak No much improvement over the last 2 to 3 days Pulmonary team are planning for bronchoscopy and bronchoalveolar lavage and pulmonary toilet Other than that she remains on IV antibiotics with IV vancomycin and cefepime as per ID team and IV Solu-Medrol and Xarelto Objective - Vital Signs Vital signs: Vital Signs Temp 98.3 F 10/01/24 08:00 Pulse 69 10/01/24 08:35 Resp 20 10/01/24 08:35 BP 161/70 10/01/24 08:00 Pulse Ox 97 10/01/24 08:00 FiO2 Intake & Output 09/30/24 10/01/24 10/01/24 18:59 06:59 18:59 Intake Total 100 Balance 100 Intake: Oral 100 Other: Voiding Method Bedpan Bedpan # Voids 2 1 - Exam GENERAL: The patient is alert and oriented x3, not in any acute distress. Well developed, well nourished. HEENT: Pupils are round and equally reacting to light. EOMI. No scleral icterus. No conjunctival pallor. Normocephalic, atraumatic. No pharyngeal erythema. No thyromegaly. CARDIOVASCULAR: S1 and S2 present. No murmurs, rubs, or gallops. -PULMONARY: Decreased breath sounds on both sides, no wheezing , no crackles. ABDOMEN: Soft, nontender, nondistended, normoactive bowel sounds. No palpable organomegaly. MUSCULOSKELETAL: No joint swelling or deformity. EXTREMITIES: No cyanosis, clubbing, or pedal edema. NEUROLOGICAL: Gross neurological examination did not reveal any focal deficits. SKIN: No rashes. no petechiae. - Labs CBC & Chem 7: 10/01/24 03:23 10/01/24 03:23 Labs: Abnormal Lab Results - Last 24 Hours (Table) 10/01/24 10/01/24 Range/Units 03:23 03:23 WBC 10.81 H (4.50-10.00) X 10*3/uL RBC 4.07 L (4.10-5.20) X 10*6/uL Hgb 10.7 L (12.0-15.0) g/dL Hct 34.1 L (37.2-46.3) % MCH 26.3 L (27.0-32.0) pg MCHC 31.4 L (32.0-37.0) g/dL RDW 14.6 H (11.5-14.5) % MPV 9.0 L (9.5-12.2) FL Immature Gran # 0.17 H (0.00-0.04) X 10*3/uL Neutrophils # 8.52 H (1.80-7.70) X 10*3/uL Eosinophils # 0 L (0.04-0.35) X 10*3/uL Creatinine 0.5 L (0.6-1.5) mg/dL BUN/Creatinine Ratio 51.40 H (12.00-20.00) Ratio Glucose 122 H (70-110) mg/dL Calcium 8.5 L (8.7-10.3) mg/dL Assessment and Plan Assessment: Worsening shortness of breath secondary to acute COPD exacerbation Bilateral basal pneumonia suspected Acute hemoptysis x 1 episode. Evaluated by watch mechanic most likely secondary to above Hypovolemic hyponatremia, mild UDS positive for benzodiazepines and tricyclic antidepressants History of CVA with residual right-sided weakness and spasms Chronic pain Crohn's disease Seizure disorder Paroxysmal atrial fibrillation on anticoagulation with Xarelto Hypertension Hyperlipidemia Anxiety/depression/bipolar disorder Ongoing nicotine addiction History of alcohol abuse, cocaine, marijuana use Plan: Continue with IV Solu-Medrol Continue with antibiotics per pulmonary team, currently on IV cefepime and IV Vanco. We continue with to dose vancomycin. ID team consult Continued home dose of Xarelto Pulmonary team consult on the case Labs and medication were reviewed.. Continue same treatment. Continue with symptomatic treatment. Resume home medication. Monitor labs and vitals. DVT and GI prophylaxis. Further recommendations as per clinical course of the patient DVT prophylaxis: Xarelto GI Prophylaxis: P Protonix PT/OT: Pending Prognosis is guarded
[2024-10-01 14:01] VITALS: BMI 24.0
--- NOTE | 2024-10-01 15:01 | P.PN ---
Subjective Progress Note Date: 10/01/24 Principal diagnosis: Reason for follow-up is pneumonia/positive blood culture Patient is a 64-year-old female with a past medical history significant for COPD coronary disease hypertension hyperlipidemia osteoarthritis seizure disorder atrial fibrillation patient has been brought to the hospital for evaluation of increasing shortness of breath did have a CT of the chest concerning for possible right lower lobe postobstructive atelectasis/pneumonia. On today's evaluation that is 10/01/2024,the patient remains to be afebrile, patient is on 2 L nasal cannula supplemental oxygen and denies any shortness of breath no chest pain or any worsening cough.Patient denies having any nausea or vomiting, no abdominal pain and no diarrhea has been reported. Patient white count is 10.81, creatinine 0.5 Objective - Vital Signs Vital signs: Vital Signs Temp 98.3 F 10/01/24 08:00 Pulse 84 10/01/24 13:02 Resp 20 10/01/24 08:35 BP 161/70 10/01/24 08:00 Pulse Ox 97 10/01/24 08:00 FiO2 Intake & Output 09/30/24 10/01/24 10/01/24 18:59 06:59 18:59 Intake Total 100 Balance 100 Weight 71.668 kg Intake: Oral 100 Other: Voiding Method Bedpan Bedpan # Voids 2 1 - Exam GENERAL DESCRIPTION: An elderly female lying in bed in no distress RESPIRATORY SYSTEM: Unlabored breathing , decreased breath sounds at bases HEART: S1 S2 regular rate and rhythm , ABDOMEN: Soft , no tenderness EXTREMITIES: No edema feet - Labs CBC & Chem 7: 10/01/24 03:23 10/01/24 03:23 Labs: Abnormal Lab Results - Last 24 Hours (Table) 10/01/24 10/01/24 Range/Units 03:23 03:23 WBC 10.81 H (4.50-10.00) X 10*3/uL RBC 4.07 L (4.10-5.20) X 10*6/uL Hgb 10.7 L (12.0-15.0) g/dL Hct 34.1 L (37.2-46.3) % MCH 26.3 L (27.0-32.0) pg MCHC 31.4 L (32.0-37.0) g/dL RDW 14.6 H (11.5-14.5) % MPV 9.0 L (9.5-12.2) FL Immature Gran # 0.17 H (0.00-0.04) X 10*3/uL Neutrophils # 8.52 H (1.80-7.70) X 10*3/uL Eosinophils # 0 L (0.04-0.35) X 10*3/uL Creatinine 0.5 L (0.6-1.5) mg/dL BUN/Creatinine Ratio 51.40 H (12.00-20.00) Ratio Glucose 122 H (70-110) mg/dL Calcium 8.5 L (8.7-10.3) mg/dL Assessment and Plan (1) Leukocytosis Current Visit: No Status: Acute Code(s): D72.829 - ELEVATED WHITE BLOOD CELL COUNT, UNSPECIFIED SNOMED Code(s): 671357465 (2) Pneumonia Current Visit: No Status: Acute Code(s): J18.9 - PNEUMONIA, UNSPECIFIED ORGA NISM SNOMED Code(s): 164866385 (3) Positive blood culture Current Visit: Yes Status: Acute Code(s): R78.81 - BACTEREMIA SNOMED Code(s): 319733674 Plan: 1patient presented to hospital with increasing shortness of breath which is likely multifactorial in this patient possible acute exacerbation with acute bronchitis however there was some abnormality seen on the CT underlying pneumonia not excluded keeping in mind patient has been out of the hospital will need to cover for resistant gram-positive as well as gram-negative pathogen. 2leukocytosis possible related to steroid versus pneumonia, patient white count has normalized 3-positive blood culture with gram-positive cocci await final ID sensitivity questionably related to pneumonia versus contamination 4-sputum culture and MRSA nasal screen not completed the has been requested 5- patient currently covered with cefepime and vancomycin and monitor clinical course closely Dictation was produced using [employer] software. please excuse any grammatical, word or spelling errors. Time with Patient: Less than 30
[2024-10-01] MEDS: levETIRAcetam 500 MG TAB PO SCH (21:59)
[2024-10-02 08:31] LABS: African American GFR (CKD) >90 (>60 ml/min/1.73 sqM); Non-African American GFR(CKD) >90 (>60 ml/min/1.73 sqM)
[2024-10-02] MEDS ORDERED: KETAMINE HCL IN 0.9 % NACL 50 MG/5 ML SYRINGE ONE (10:14)
[2024-10-02] MEDS ORDERED: LIDOCAINE 1% INJ 10MG/ML (20 ML MDV) ONE (10:14)
[2024-10-02] MEDS ORDERED: PROPOFOL 10 MG/ML 20 ML VIAL IV ONE (10:14)
[2024-10-02] MEDS: LIDOCAINE 2% (PF) 20 MG/ML 2 ML VIAL INHALATION ONE (10:20)
--- NOTE | 2024-10-02 11:32 | P.PN ---
Subjective Progress Note Date: 10/02/24 Principal diagnosis: Bilateral basal pneumonia/healthcare associated pneumonia would recommend to use broad-spectrum antibiotics like Zosyn with vancomycin or cefepime with vancomy bharath Gram-positive cocci in clusters, antibiotic as above with IV vancomycin Hemoptysis, likely related to airway inflammation with some contribution from direct oral anticoagulant will monitor and trend, if continuous pattern is seen consider stopping direct oral anticoagulant transiently History of pulmonary nodules subcentimeter in size thought to be inflammatory, patient no-show in the office we will get a CT scan of the chest without contrast Advance Crohn's disease, on supportive care in remission Severe end-stage COPD with exacerbation, bronchodilators IV steroids and breathing treatments and inhaled aerosolized steroids History of extensive smoking and nicotine use Seizure disorder, no new seizures seen, continue Keppra Generalized anxiety disorder Major depression October 02, 2024, patient seen eval examined during rounds labs reviewed medications and care plan discussed,Patient n.p.o. for bronchoscopy later on this morning, hemodynamic status stable oxygen saturation 97% on 3 L ongoing cough congestion is present cough congested but nonproductive vancomycin trough is 14.4 October 01, 2024, patient seen eval examined during rounds labs reviewed medications with care plan discussed, respiratory status is still marginal ongoing cough congestion is present patient very weak to expectorate respiratory secretion, CT scan finding reviewed with the patient, best course of infection would be to proceed with bronchoscopy and pulmonary toilet as patient cannot ring up the respiratory secretion and mucous plug, patient is afebrile hemodynamic status stable saturation is 97% 2 L, labs from today reviewed WBC is 10.8, hemoglobin hematocrit 10.7/34 platelet count 352 chemistry not done today medications reviewed patient remains on IV steroids bronchodilators and IV cefepime with vancomycin, more than a week have been positive by and still do not have ID on gram-positive cocci in clusters patient remains on Vanco and cefepime and ID service following September 30, 2024, patient seen eval examined during rounds labs reviewed medication care plan discussed, patient remains on 3 L nasal cannula saturation 96% hemodynamic status however stable, patient remains afebrile, blood culture were positive for gram-positive cocci in clusters, final ID is pending remains on bronchodilator cefepime continuation of home medicine IV Solu-Medrol every [address] scan of the chest performed on September 27 right lower lobe bronchovascular markings seen along with opacified large airway suggestive of postobstructive atelectasis likely mucous plug discussed with her at length about bronchoscopy and lavage patient agreed to it, is still intermittently bronchospastic we will hold another 24 to 48 hours and likely bronc BAL for pul monary toilet in the next 48 hours 64-year-old female presented to the emergency department with increasing shortness of breath going on for 2 to 3 days, patient has a longstanding history of smoking and nicotine use, patient uses albuterol nebulizer but was not helping came into the hospital for further evaluation. Cough is associated with greenish sputum, chest x-ray significant for bilateral basilar infiltrate suggestive of pneumonia, significant labs include WBC count of 10.6, hemoglobin of 10.3 chemistry fairly within normal limit BUN/creatinine also normal troponin were negative. Patient uses 3 L nasal cannula patient had episode of hemoptysis about 1 teaspoon x 1 related to severe coughing, denies any previous episode of hemoptysis before. Currently patient is on bronchodilator, with DuoNeb as well as inhaled aerosolized steroids, continuation of her home medicines, patient has been on Solu-Medrol 60 mg every 6 and direct acting oral anticoagulant patient has been getting Zithromax which has been discontinued blood culture came back positive for gram-positive cocci in clusters. Labs from today significant for white cell count is up to 16.49, procalcitonin however 0.03, lactic acid 0.9, LFTs within normal limit Her prior medical history significant for chronic atrial fibrillation on anticoagulation with direct acting oral anticoagulant, coronary artery disease, COPD, dyslipidemia, hypertension hypertensive cardiovascular disease, seizure disorder, syncope pulmonary nodules being followed on outpatient, history of seizure disorder, Crohn's disease, CVA, active smoking, prior history of marijuana and cocaine use Objective - Vital Signs Vital signs: Vital Signs Temp 98.5 F 10/02/24 07:58 Pulse 64 10/02/24 07:58 Resp 18 10/02/24 07:58 BP 136/71 10/02/24 07:58 Pulse Ox 97 10/02/24 07:58 FiO2 Intake & Output 10/01/24 10/02/24 10/02/24 18:59 06:59 18:59 Weight 71.668 kg Other: Voiding Method Bedpan Diaper # Voids 1 # Bowel Movements 1 - Exam - Constitutional General appearance: average body habitus, disheveled - EENT Eyes: abnormal pupil, EOMI, PERRLA ENT: normal oropharynx Ears: bilateral: normal - Neck Carotids: bilateral: upstroke normal - Respiratory Respiratory: bilateral: diminished, wheezing (With Rales at the bases) - Cardiovascular Rhythm: regular Heart sounds: normal: S1, S2 - Gastrointestinal General gastrointestinal: normal bowel sounds - Integumentary Integumentary: normal turgor - Neurologic Neurologic: CNII-XII intact - Musculoskeletal Musculoskeletal: gait normal, generalized weakness, strength equal bilaterally - Psychiatric Psychiatric: A&O x's 3, appropriate affect, intact judgment & insight - Labs CBC & Chem 7: 10/01/24 03:23 10/02/24 06:48 Labs: Abnormal Lab Results - Last 24 Hours (Table) 10/01/24 10/02/24 Range/Units 03:23 06:48 Creatinine 0.5 L 0.42 L (0.6-1.5) mg/dL BUN/Creatinine Ratio 51.40 H (12.00-20.00) Ratio Glucose 122 H (70-110) mg/dL Calcium 8.5 L (8.7-10.3) mg/dL Assessment and Plan Assessment: Bilateral basal pneumonia/healthcare associated pneumonia would recommend continue broad-spectrum antibiotics cefepime with vancomycin Right lower lobe infiltrate/atelectasis with mucous plugging discussed with patient about bronchoscopy, explained pros and cons patient is in agreement we will schedule for tomorrow already talked to endoscopy and boarding, also talk to the RN about n.p.o. after midnight and consultation Gram-positive cocci in clusters, antibiotic as above with IV vancomycin Hemoptysis, likely related to airway inflammation with some contribution from direct oral anticoagulant will monitor and trend, if continuous pattern is seen consider stopping direct oral anticoagulant transiently History of pulmonary nodules subcentimeter in size thought to be inflammatory, patient no-show in the office we will get a CT scan of the chest without contrast Advance Crohn's disease, on supportive care in remission Severe end-stage COPD with exacerbation, bronchodilators IV steroids and breathing treatments and inhaled aerosolized steroids History of extensive smoking and nicotine use Seizure disorder, no new seizures seen, continue Keppra Generalized anxiety disorder Major depression Plan: Reviewed culture results and report and CT scan CT scan of the chest as well, bronchoscopy and washing and pulmonary toilet later on today
--- NOTE | 2024-10-02 11:36 | P.PCN ---
Date of Procedure: 10/02/24 Preoperative Diagnosis: Extensive mucous plugging Postoperative Diagnosis: As above Procedure(s) Performed: #1 bronchoscopy #2 bronchoalveolar lavage right lower lobe #3 pulmonary toilet for extensive mucous plugging right more than left side Anesthesia: MAC Surgeon: Jaun Cortez Estimated Blood Loss (ml): 0 Condition: stable Disposition: floor Indications for Procedure: Extensive mucous plugging and for pulmonary toilet Operative Findings: Fiberoptic bronchoscope passed through the mouth as nasal passages extremely narrow, able to reach oropharynx followed by a laryngopharynx vocal cords were normal in structure and function tip of the scope passed beyond the vocal cords, extensive amount of mucus plugging seen both sides more so on the right side compared to left side, due to very sticky nature of mucous plug impacting the bronchoscope was removed 2 times and then reinserted after cleaning the scope. Mucomyst 20% 30 cc mixed with 30 cc of saline infiltrated to each side followed by bulb bronchopulmonary toilet and extensive amount of very thick tenacious mucous plugs removed. BAL performed from the right lower lobe as well as left lower lobe tolerated well no complication noted Description of Procedure: Above sample sent for Gram stain culture cytology pneumocystis and Legionella
--- NOTE | 2024-10-02 11:51 | P.PN ---
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 Patient presents to ER with complaints of worsening shortness of breath for the past 2 days. She was also complaining of sputum with greenish sputum production. No complaints of chest pain. Denied any fever or chills. No nausea vomiting abdominal pain or diarrhea. Chest x-ray showed bibasilar airspace opacities related to atypical pneumonia. EKG showed sinus tachycardia with heart rate 104 and QTc 383. Laboratory data showed WBC 10.6 hemoglobin 10.3 and platelets 447 sodium 134 potassium 4.5 chloride 89 bicarb is 33 9 BUN 10 and creatinine 0.48 and blood sugar 151. Troponin x 1 negative. 09/26/2024 Patient is lying in the bed. Awake alert and oriented. Still complains of shortness of breath. Currently requiring 3 L oxygen via nasal cannula. Otherwise patient states that she had episode of coughing blood, bright red about a teaspoonful x 1 today afternoon. No further episodes of bleeding. No complaints of chest pain. Denies any fever or chills. Patient is being continued on IV Solu-Medrol, DuoNebs, Pulmicort and Perforomist. Xarelto dose will be held today. Follow-up hemoglobin level will be ordered. 09/27/2024 Patient is lying in the bed. Awake alert and oriented. No complaints of chest pain. Breathing is slightly better compared to yesterday. Less bronchospastic. Otherwise patient has been afebrile.. No further episodes of hemoptysis. Patient started on broad-spectrum antibiotics with vancomycin and cefepime as per pulmonary recommendations blood cultures negative so far.No nausea vomiting abdominal pain or diarrhea. Lab data showed WBC 16.4 hemoglobin 9.8 and platelets 466 sodium 137 potassium 4.4, chloride 94, bicarb 35.8 BUN 16.9 and creatinine 0.5 and blood sugar 94. 09/28 Patient lying in bed does not look in distress However patient states she still have breathing difficulty. She denies chest pain, she denies coughing or phlegm production. She is currently on 3 L of oxygen, she states at home she uses 2.5 L She is complaining from lower abdominal pain with no significant tenderness, no specific GI or symptoms like no dysuria or change in frequency or diarrhea. She has good appetite with no nausea vomiting This pain looks mild and present since admission. On exam she has decreased air entry on both sides no significant wheezing or crepitation 09/30 Patient states she still complaining shortness of breath. However on examination no significant wheezing or crepitation. No tachypnea was noted as well Patient denies any depression or feeling down I advised the patient to get out of bed to chair today and she agrees. She remains on broad-spectrum antibiotics with IV vancomycin and cefepime and high-dose Solu-Medrol 60 mg as well as Xarelto. On examination patient does not have leg edema or signs of fluid overload 10/01 Patient is still with respiratory difficulty. Also she feels very weak No much improvement over the last 2 to 3 days Pulmonary team are planning for bronchoscopy and bronchoalveolar lavage and pulmonary toilet Other than that she remains on IV antibiotics with IV vancomycin and cefepime as per ID team and IV Solu-Medrol and Xarelto 10/02 Patient with persistent tachypnea and dyspnea, she still feels generally weak She is saturating 97% on 3 L oxygen via nasal cannula WBC is 10.8, hemoglobin 10.7, platelet count normal. BMP is unremarkable. Patient remains on IV vancomycin and cefepime per ID team and pulmonary team with the plan for bronchoscopy and bronchial toilet possible today Patient today complaining from epigastric pain and tenderness about 7/10 started yesterday stating associated with loose bowel movement about 3-4 per yesterday. We will check for C. difficile and ask for surgery team consult and check labs in the morning Patient s/p bronchoscopy today pending results Procedure note was reviewed by me. Results showing extensive mucous on both sides more on the right side. Bronchoalveolar lavage was done and samples were sent for Gram stain, culture and cytology as well as pneumocystis and Legionella which are pending now Review of systems CONSTITUTIONAL: No fever, no malaise, no fatigue. HEENT: No recent visual problems or hearing problems. Denied any sore throat. CARDIOVASCULAR: No orthopnea, PND, no palpitations, no syncope. HEMATOLOGICAL: Denies any bleeding or petechiae. GENITOURINARY: Denies any burning micturition, frequency, or urgency. MUSCULOSKELETAL/RHEUMATOLOGICAL: Denies any joint pain, swelling, or any muscle pain. ENDOCRINE: Denies any polyuria or polydipsia. Active Medications Generic Name Dose Route Start Last Admin Trade Name Freq PRN Reason Stop Dose Admin Hydrocodone Bitart/Acetaminophen 1 each 09/25/24 19:43 10/02/24 11:34 Hydrocodone/Apap 5-325mg 1 Each Tab PO 1 each Q6HR PRN Administration mod-severe Pain (4-10) Albuterol/Ipratropium 3 ml 09/25/24 16:00 10/02/24 11:21 Ipratropium-Albuterol 3 Ml Neb INHALATION 3 ml RT-QID DEX Administration Albuterol/Ipratropium 3 ml 09/25/24 13:13 Ipratropium-Albuterol 3 Ml Neb INHALATION RT-Q2H PRN Shortness Of Breath Or Wheezing Budesonide 1 mg 09/25/24 20:00 10/02/24 08:03 Budesonide 1 Mg/2 Ml Nebu INHALATION Not Given RT-BID DEX Formoterol Fumarate 20 mcg 09/25/24 20:00 10/02/24 08:04 Formoterol Fumarate 20 Mcg/2 Ml Nebu INHALATION Not Given RT-BID DEX Gabapentin 300 mg 09/25/24 21:00 10/02/24 11:35 Gabapentin 300 Mg Cap PO 300 mg BID DEX Administration Cefepime HCl 2 gm/ Sodium 100 mls @ 25 mls/hr 09/27/24 16:00 10/02/24 07:57 Chloride IVPB 25 mls/hr Q8HR DEX Administration Vancomycin HCl 1,250 mg/ 250 mls @ 125 mls/hr 09/30/24 08:00 10/02/24 11:34 Sodium Chloride IVPB 10/02/24 13:00 125 mls/hr Q12H DEX Administration Vancomycin HCl 1,500 mg/ 500 mls @ 125 mls/hr 10/02/24 22:00 Sodium Chloride IVPB Q12H DEX Levetiracetam 1,000 mg 10/01/24 21:30 10/02/24 11:35 Levetiracetam 500 Mg Tab PO 1,000 mg BID DEX Administration Methylprednisolone Sodium Succinate 60 mg 09/25/24 18:00 10/02/24 11:35 Methylprednisolone Sod Succi 125 Mg/2 Ml Vial IV 60 mg Q6HR DEX Administration Metoprolol Succinate 100 mg 09/26/24 09:00 10/02/24 07:57 Metoprolol Succinate (Er) 100 Mg Tab.Er.24h PO 100 mg DAILY DEX Administration Montelukast Sodium 10 mg 09/25/24 21:00 10/01/24 21:19 Montelukast 10 Mg Tab PO Not Given HS DEX Naloxone HCl 0.2 mg 09/25/24 13:13 Naloxone 0.4 Mg/Ml 1 Ml Vial IVP Q2M PRN Opioid Reversal Ondansetron HCl 4 mg 09/26/24 11:26 09/27/24 19:51 Ondansetron 4 Mg/2 Ml Vial IVP 4 mg Q6HR PRN Administration Nausea And Vomiting Pantoprazole Sodium 40 mg 09/26/24 07:30 10/02/24 11:35 Pantoprazole 40 Mg Tablet PO 40 mg 0730 DEX Administration Quetiapine Fumarate 100 mg 09/25/24 21:00 10/01/24 21:18 Quetiapine 100 Mg Tab PO 100 mg HS DEX Administration Rivaroxaban 20 mg 09/26/24 09:00 10/02/24 11:35 Rivaroxaban 20 Mg Tab PO 20 mg DAILY DEX Administration Protocol Objective - Vital Signs Vital signs: Vital Signs Temp 98.5 F 10/02/24 07:58 Pulse 64 10/02/24 07:58 Resp 18 10/02/24 07:58 BP 136/71 10/02/24 07:58 Pulse Ox 97 10/02/24 07:58 FiO2 Intake & Output 10/01/24 10/02/24 10/02/24 18:59 06:59 18:59 Weight 71.668 kg Other: Voiding Method Bedpan Diaper Diaper # Voids 1 # Bowel Movements 1 - Exam GENERAL: The patient is alert and oriented x3, not in any acute distress. Well developed, well nourished. HEENT: Pupils are round and equally reacting to light. EOMI. No scleral icterus. No conjunctival pallor. Normocephalic, atraumatic. No pharyngeal erythema. No thyromegaly. CARDIOVASCULAR: S1 and S2 present. No murmurs, rubs, or gallops. -PULMONARY: Decreased breath sounds on both sides, no wheezing , no crackles. ABDOMEN: Soft, nontender, nondistended, normoactive bowel sounds. No palpable organomegaly. MUSCULOSKELETAL: No joint swelling or deformity. EXTREMITIES: No cyanosis, clubbing, or pedal edema. NEUROLOGICAL: Gross neurological examination did not reveal any focal deficits. SKIN: No rashes. no petechiae. - Labs CBC & Chem 7: 10/01/24 03:23 10/02/24 06:48 Labs: Abnormal Lab Results - Last 24 Hours (Table) 10/02/24 Range/Units 06:48 Creatinine 0.42 L (0.52-1.04) mg/dL Microbiology - Last 24 Hours (Table) 09/30/24 12:18 Nasal Screen MRSA/MSSA - Final Nasal Swab Assessment and Plan Assessment: Worsening shortness of breath secondary to acute COPD exacerbation. Status post bronchoscopy. Bilateral basal pneumonia suspected. Acute hemoptysis x 1 episode. Evaluated by home care giver most likely secondary to above Hypovolemic hyponatremia, mild UDS positive for benzodiazepines and tricyclic antidepressants History of CVA with residual right-sided weakness and spasms Chronic pain Crohn's disease Seizure disorder Paroxysmal atrial fibrillation on anticoagulation with Xarelto Hypertension Hyperlipidemia Anxiety/depression/bipolar disorder Ongoing nicotine addiction History of alcohol abuse, cocaine, marijuana use Plan: Continue with IV Solu-Medrol Follow-up BAL lavage sample for cytology, Legionella and pneumocystis as well as for culture Continue with antibiotics per pulmonary team, currently on IV cefepime and IV Vanco. We continue with to dose vancomycin. ID team consult Continued home dose of Xarelto Consult surgery team for abdominal pain Pulmonary team are planning for bronchoscopy Pulmonary team consult on the case Labs and medication were reviewed.. Continue same treatment. Continue with symptomatic treatment. Resume home medication. Monitor labs and vitals. DVT and GI prophylaxis. Further recommendations as per clinical course of the patient DVT prophylaxis: Xarelto GI Prophylaxis: P Protonix PT/OT: Pending Prognosis is guarded
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
[2024-10-02] MEDS: VANCOMYCIN TROUGH DUE 1 EACH MISC MISCELLANE ONE (14:14)
[2024-10-02] MEDS ORDERED: VANCOMYCIN 1,500 MG in SODIUM CHLORIDE 0.9% 500 ML 500 ML IVPB SCH (22:00)
--- NOTE | 2024-10-03 07:44 | US ---
EXAMINATION TYPE: US gallbladder DATE OF EXAM: 10/03/2024 COMPARISON: NONE CLINICAL INDICATION: Female, 64 years old with history of RUQ and epigastric abdominal pain; abd pain x several months TECHNIQUE: Grayscale and color Doppler imaging of the right upper quadrant was performed. FINDINGS: EXAM MEASUREMENTS: Liver Length: 14.7 cm Gallbladder Wall: 0.2 cm CBD: 0.4 cm Right Kidney: 9.8x3.3x3.8 cm RESOURCE PARAPROFESSIONAL NOTES: Pancreas: duct dilated to 2mm, Tail obscured by overlying bowel gas Liver: wnl Gallbladder: small stones Evidence for sonographic Kirkland's sign: No CBD: wnl Right Kidney: wnl exam limited by bowel gas IMPRESSION: Cholelithiasis without wall thickening or pericholecystic fluid. [facility] Sharon Goyal, , 10/03/2024 7:42 AM
[2024-10-03 09:14] LABS: Basophils # (A) 0.02 X 10*3/uL (0.00-0.10); Basophils % (A) 0.1 %; Eosinophils # (A) 0 X 10*3/uL (0.04-0.35); Eosinophils % (A) 0 %; HCT 31.2 % (37.2-46.3); HGB 9.8 g/dL (12.0-15.0); Lymphocytes % (A) 5.5 %; MCH 26.3 pg (27.0-32.0); MCHC 31.4 g/dL (32.0-37.0); MCV 83.9 FL (80.0-97.0); Mean Platelet Volume 9.4 FL (9.5-12.2); Monocytes # (A) 0.63 X 10*3/uL (0.20-1.00); Monocytes % (A) 4.3 %; NRBC Per 100 WBC 0 X 10*3/uL (0.00-0.01); Neutrophils # (A) 12.96 X 10*3/uL (1.80-7.70); Neutrophils % (A) 89.2 %; Platelet Count 294 X 10*3/uL (140-440); RBC 3.72 X 10*6/uL (4.10-5.20); RDW 14.7 % (11.5-14.5); WBC 14.54 X 10*3/uL (4.50-10.00)
--- NOTE | 2024-10-03 09:19 | P.PN ---
Subjective Progress Note Date: 10/03/24 Principal diagnosis: Bilateral basal pneumonia/healthcare associated pneumonia would recommend to use broad-spectrum antibiotics like Zosyn with vancomycin or cefepime with vancomy bharath Gram-positive cocci in clusters, antibiotic as above with IV vancomycin Hemoptysis, likely related to airway inflammation with some contribution from direct oral anticoagulant will monitor and trend, if continuous pattern is seen consider stopping direct oral anticoagulant transiently History of pulmonary nodules subcentimeter in size thought to be inflammatory, patient no-show in the office we will get a CT scan of the chest without contrast Advance Crohn's disease, on supportive care in remission Severe end-stage COPD with exacerbation, bronchodilators IV steroids and breathing treatments and inhaled aerosolized steroids History of extensive smoking and nicotine use Seizure disorder, no new seizures seen, continue Keppra Generalized anxiety disorder Major depression October 03, 2024, patient is status post bronchoscopy and BAL and pulmonary toilet tolerating very well, on the right base very thick and strings of mucous plugs were removed and noted patient tolerated the procedure well, afebrile, hemodynamic status stable except for transient bradycardia, ultrasound of the gallbladder positive for cholelithiasis without any gallbladder wall thickening, general surgery evaluating the patient October 02, 2024, patient seen eval examined during rounds labs reviewed m edications and care plan discussed,Patient n.p.o. for bronchoscopy later on this morning, hemodynamic status stable oxygen saturation 97% on 3 L ongoing cough congestion is present cough congested but nonproductive vancomycin trough is 14.4 October 01, 2024, patient seen eval examined during rounds labs reviewed medications with care plan discussed, respiratory status is still marginal ongoing cough congestion is present patient very weak to expectorate respiratory secretion, CT scan finding reviewed with the patient, best course of infection would be to proceed with bronchoscopy and pulmonary toilet as patient cannot ring up the respiratory secretion and mucous plug, patient is afebrile hemodynamic status stable saturation is 97% 2 L, labs from today reviewed WBC is 10.8, hemoglobin hematocrit 10.7/34 platelet count 352 chemistry not done today medications reviewed patient remains on IV steroids bronchodilators and IV cefepime with vancomycin, more than a week have been positive by and still do not have ID on gram-positive cocci in clusters patient remains on Vanco and cefepime and ID service following September 30, 2024, patient seen eval examined during rounds labs reviewed medication care plan discussed, patient remains on 3 L nasal cannula saturation 96% hemodynamic status however stable, patient remains afebrile, blood culture were positive for gram-positive cocci in clusters, final ID is pending remains on bronchodilator cefepime continuation of home medicine IV Solu-Medrol every [address] scan of the chest performed on September 27 right lower lobe bronchovascular markings seen along with opacified large airway suggestive of postobstructive atelectasis likely mucous plug discussed with her at length about bronchoscopy and lavage patient agreed to it, is still intermittently bronchospastic we will hold another 24 to 48 hours and likely bronc BAL for pulmonary toilet in the next 48 hours 64-year-old female presented to the emergency department with increasing shortness of breath going on for 2 to 3 days, patient has a longstanding history of smoking and nicotine use, patient uses albuterol nebulizer but was not help ing came into the hospital for further evaluation. Cough is associated with greenish sputum, chest x-ray significant for bilateral basilar infiltrate suggestive of pneumonia, significant labs include WBC count of 10.6, hemoglobin of 10.3 chemistry fairly within normal limit BUN/creatinine also normal troponin were negative. Patient uses 3 L nasal cannula patient had episode of hemoptysis about 1 teaspoon x 1 related to severe coughing, denies any previous episode of hemoptysis before. Currently patient is on bronchodilator, with DuoNeb as well as inhaled aerosolized steroids, continuation of her home medicines, patient has been on Solu-Medrol 60 mg every 6 and direct acting oral anticoagulant patient has been getting Zithromax which has been discontinued blood culture came back positive for gram-positive cocci in clusters. Labs from today significant for white cell count is up to 16.49, procalcitonin however 0.03, lactic acid 0.9, LFTs within normal limit Her prior medical history significant for chronic atrial fibrillation on anticoagulation with direct acting oral anticoagulant, coronary artery disease, COPD, dyslipidemia, hypertension hypertensive cardiovascular disease, seizure disorder, syncope pulmonary nodules being followed on outpatient, history of seizure disorder, Crohn's disease, CVA, active smoking, prior history of marijuana and cocaine use Objective - Vital Signs Vital signs: Vital Signs Temp 98.1 F 10/03/24 07:49 Pulse 52 L 10/03/24 07:49 Resp 16 10/03/24 07:49 BP 145/75 10/03/24 07:49 Pulse Ox 99 10/03/24 07:49 FiO2 Intake & Output 10/02/24 10/03/24 10/03/24 18:59 06:59 18:59 Other: Voiding Method Diaper Diaper # Voids 1 3 - Exam - Constitutional General appearance: average body habitus, disheveled - EENT Eyes: abnormal pupil, EOMI, PERRLA ENT: normal oropharynx Ears: bilateral: normal - Neck Carotids: bilateral: upstroke normal - Respiratory Respiratory: bilateral: diminished, wheezing (With Rales at the bases) - Cardiovascular Rhythm: regular Heart sounds: normal: S1, S2 - Gastrointestinal General gastrointestinal: normal bowel sounds - Integumentary Integumentary: normal turgor - Neurologic Neurologic: CNII-XII intact - Musculoskeletal Musculoskeletal: gait normal, generalized weakness, strength equal bilaterally - Psychiatric Psychiatric: A&O x's 3, appropriate affect, intact judgment & insight - Labs CBC & Chem 7: 10/03/24 04:20 10/02/24 06:48 Labs: Abnormal Lab Results - Last 24 Hours (Table) 10/03/24 Range/Units 04:20 WBC 14.54 H (4.50-10.00) X 10*3/uL RBC 3.72 L (4.10-5.20) X 10*6/uL Hgb 9.8 L (12.0-15.0) g/dL Hct 31.2 L (37.2-46.3) % MCH 26.3 L (27.0-32.0) pg MCHC 31.4 L (32.0-37.0) g/dL RDW 14.7 H (11.5-14.5) % MPV 9.4 L (9.5-12.2) FL Immature Gran # 0.13 H (0.00-0.04) X 10*3/uL Neutrophils # 12.96 H (1.80-7.70) X 10*3/uL Lymphocytes # 0.80 L (0.90-5.00) X 10*3/uL Eosinophils # 0 L (0.04-0.35) X 10*3/uL Microbiology - Last 24 Hours (Table) 10/02/24 10:00 Gram Stain - Preliminary Bronchoalviolar Lavage - Right 09/30/24 12:18 Nasal Screen MRSA/MSSA - Final Nasal Swab Assessment and Plan Assessment: Bilateral basal pneumonia/healthcare associated pneumonia would recommend continue broad-spectrum antibiotics cefepime with vancomycin Right lower lobe infiltrate/atelectasis with mucous plugging as well as bronchoscopy with bronchoalveolar lavage and pulmonary toilet with thick string of mucous plugs removed from the right lower lobe, on October 02, 2024 Cholelithiasis without gallbladder wall inflammation General Surgery following Gram-positive cocci in clusters, antibiotic as above with IV vancomycin Hemoptysis, likely related to airway inflammation with some contribution from direct oral anticoagulant will monitor and trend, if continuous pattern is seen consider stopping direct oral anticoagulant transiently History of pulmonary nodules subcentimeter in size thought to be inflammatory, patient no-show in the office we will get a CT scan of the chest without contrast Advance Crohn's disease, on supportive care in remission Severe end-stage COPD with exacerbation, bronchodilators IV steroids and breathing treatments and inhaled aerosolized steroids History of extensive smoking and nicotine use Seizure disorder, no new seizures seen, continue Kebeatara Generalized anxiety disorder Major depression Plan: As above follow-up on culture results report Time with Patient: Greater than 30
[2024-10-03 10:17] LABS: ALT 9 U/L (8-44); AST 11 U/L (13-35); Alkaline Phosphatase 46 U/L (41-126); BUN/Creat Ratio 62.75 Ratio (12.00-20.00); Bilirubin, Conjugated <0.20 mg/dL (0.20-0.40); Bilirubin,Unconjugated >0.20 mg/dL (0.20-1.00); Blood Urea Nitrogen 25.1 mg/dL (9.0-27.0); Calcium 8.2 mg/dL (8.7-10.3); Carbon Dioxide 27.8 mmol/L (21.6-31.8); Chloride 100 mmol/L (96-109); Glucose 130 mg/dL (70-110); Potassium 4.2 mmol/L (3.5-5.5); Sodium 137 mmol/L (135-145); Total Bilirubin 0.4 mg/dL (0.3-1.2)
--- NOTE | 2024-10-03 11:53 | P.PN ---
Subjective Progress Note Date: 10/03/24 Principal diagnosis: Chronic cholecystitis Patient overall feeling well. She would like to go home she says. Tolerating diet. Patient says she has been having this epigastric and right upper quadrant discomfort for the last several months. Appears to be at baseline. Objective - Vital Signs Vital signs: Vital Signs Temp 98.1 F 10/03/24 07:49 Pulse 52 L 10/03/24 07:49 Resp 16 10/03/24 07:49 BP 145/75 10/03/24 07:49 Pulse Ox 99 10/03/24 07:49 FiO2 Intake & Output 10/02/24 10/03/24 10/03/24 18:59 06:59 18:59 Other: Voiding Method Diaper Diaper Diaper # Voids 1 3 1 - Exam Abdomen: Soft, nondistended, minimal upper abdominal tenderness - Labs CBC & Chem 7: 10/03/24 04:20 10/03/24 04:21 Labs: Abnormal Lab Results - Last 24 Hours (Table) 10/03/24 10/03/24 Range/Units 04:20 04:21 WBC 14.54 H (4.50-10.00) X 10*3/uL RBC 3.72 L (4.10-5.20) X 10*6/uL Hgb 9.8 L (12.0-15.0) g/dL Hct 31.2 L (37.2-46.3) % MCH 26.3 L (27.0-32.0) pg MCHC 31.4 L (32.0-37.0) g/dL RDW 14.7 H (11.5-14.5) % MPV 9.4 L (9.5-12.2) FL Immature Gran # 0.13 H (0.00-0.04) X 10*3/uL Neutrophils # 12.96 H (1.80-7.70) X 10*3/uL Lymphocytes # 0.80 L (0.90-5.00) X 10*3/uL Eosinophils # 0 L (0.04-0.35) X 10*3/uL Creatinine 0.4 L (0.6-1.5) mg/dL BUN/Creatinine Ratio 62.75 H (12.00-20.00) Ratio Glucose 130 H (70-110) mg/dL Calcium 8.2 L (8.7-10.3) mg/dL AST 11 L (13-35) U/L Total Protein 5.0 L (6.2-8.2) g/dL Albumin 3.0 L (3.8-4.9) g/dL Albumin/Globulin Ratio 1.50 L (1.60-3.17) Ratio Microbiology - Last 24 Hours (Table) 10/02/24 10:00 Gram Stain - Preliminary Bronchoalviolar Lavage - Right Bronchial Washings Culture - Preliminary 09/30/24 12:18 Nasal Screen MRSA/MSSA - Final Nasal Swab Assessment and Plan (1) Chronic cholecystitis Narrative/Plan: 64-year-old female with chronic cholecystitis. No active inflammation seen on imaging. Exam relatively benign. Patient high risk given her significant pulmonary issues. No plans for cholecystectomy during this hospital stay. Recommend outpatient follow-up with possible elective cholecystectomy if pu lmonary status improves and cleared by pulmonary. Current Visit: Yes Status: Acute Code(s): K81.1 - CHRONIC CHOLECYSTITIS SNOMED Code(s): 41862500
[2024-10-03] MEDS: HYDROcodone/APAP 5-325MG 1 EACH TAB PO PRN (12:56)
--- NOTE | 2024-10-03 14:43 | P.PN ---
Subjective Progress Note Date: 10/02/24 Principal diagnosis: Reason for follow-up is pneumonia/positive blood culture Patient is a 64-year-old female with a past medical history significant for COPD coronary disease hypertension hyperlipidemia osteoarthritis seizure disorder atrial fibrillation patient has been brought to the hospital for evaluation of increasing shortness of breath did have a CT of the chest concerning for possible right lower lobe postobstructive atelectasis/pneumonia. Patient did have bronchial washing on 10/02/2024 with extraction of mucous plugs and culture On today's evaluation that is 10/02/2024, the patient continues to be afebrile, the patient is on 3 L nasal cannula oxygen and breathing slightly comfortably, the Pt denies having any chest pain or any worsening cough, the patient denies having any abdominal pain no vomiting or any diarrhea has been reported by the nursing staff. No CBC was done today Vanco trough is 14.4 MRSA nasal swab came back negative Objective - Vital Signs Vital signs: Vital Signs Temp 98.5 F 10/02/24 07:58 Pulse 88 10/02/24 15:20 Resp 18 10/02/24 07:58 BP 136/71 10/02/24 07:58 Pulse Ox 97 10/02/24 07:58 FiO2 Intake & Output 10/01/24 10/02/24 10/02/24 18:59 06:59 18:59 Weight 71.668 kg Other: Voiding Method Bedpan Diaper Diaper # Voids 1 1 # Bowel Movements 1 - Exam GENERAL DESCRIPTION: An elderly female lying in bed in no distress RESPIRATORY SYSTEM: Unlabored breathing , decreased breath sounds at bases HEART: S1 S2 regular rate and rhythm , ABDOMEN: Soft , no tenderness EXTREMITIES: No edema feet - Labs CBC & Chem 7: 10/03/24 04:20 10/03/24 04:21 Labs: Abnormal Lab Results - Last 24 Hours (Table) 10/02/24 Range/Units 06:48 Creatinine 0.42 L (0.52-1.04) mg/dL Microbiology - Last 24 Hours (Table) 09/30/24 12:18 Nasal Screen MRSA/MSSA - Final Nasal Swab Assessment and Plan (1) Leukocytosis Current Visit: No Status: Acute Code(s): D72.829 - ELEVATED WHITE BLOOD CELL COUNT, UNSPECIFIED SNOMED Code(s): 086956114 (2) Pneumonia Current Visit: No Status: Acute Code(s): J18.9 - PNEUMONIA, UNSPECIFIED ORGANISM SNOMED Code(s): 040735335 (3) Positive blood culture Current Visit: Yes Status: Acute Code(s): R78.81 - BACTEREMIA SNOMED Code(s): 539106056 Plan: 1patient presented to hospital with increasing shortness of breath which is likely multifactorial in this patient possible acute exacerbation with acute bronchitis however there was some abnormality seen on the CT underlying pneumonia not excluded keeping in mind patient has been out of the hospital will need to cover for resistant gram-positive as well as gram-negative pathogen. 2leukocytosis possible related to steroid versus pneumonia, patient white count has normalized 3-positive blood culture with gram-positive cocci await final ID sensitivity questionably contamination 4-MRSA nasal screen negative the patient is status post bronchoscopy washout and culture results will be followed 5- patient will be treated with cefepime however discontinue vancomycin as MRSA screen is negative Dictation was produced using [employer] dictation software. please excuse any grammatical, word or spelling errors. Time with Patient: Less than 30
--- NOTE | 2024-10-03 14:44 | P.PN ---
Subjective Progress Note Date: 10/03/24 Principal diagnosis: Reason for follow-up is pneumonia/positive blood culture Patient is a 64-year-old female with a past medical history significant for COPD coronary disease hypertension hyperlipidemia osteoarthritis seizure disorder atrial fibrillation patient has been brought to the hospital for evaluation of increasing shortness of breath did have a CT of the chest concerning for possible right lower lobe postobstructive atelectasis/pneumonia. Patient did have bronchial washing on 10/02/2024 with extraction of mucous plugs and culture On today's evaluation that is 10/03/2024, patient did not have any fever and denies any chills, patient is breathing comfortably on 3 L current oxygen, patient with no chest pain still complaining of cough but not bringing up any sputum, patient did not have any abdominal pain nausea vomiting or any loose stools patient complaining of generalized bodyaches and wants a pain medication to be adjusted to every 4 hours Q6 Patient white count is 14.54 creatinine 0.4, Bronchial washing culture pending Objective - Vital Signs Vital signs: Vital Signs Temp 98.1 F 10/03/24 07:49 Pulse 52 L 10/03/24 07:49 Resp 16 10/03/24 07:49 BP 145/75 10/03/24 07:49 Pulse Ox 99 10/03/24 07:49 FiO2 Intake & Output 10/02/24 10/03/24 10/03/24 18:59 06:59 18:59 Other: Voiding Method Diaper Diaper Diaper # Voids 1 3 1 - Exam GENERAL DESCRIPTION: An elderly female lying in bed in no distress RESPIRATORY SYSTEM: Unlabored breathing , decreased breath sounds at bases HEART: S1 S2 regular rate and rhythm , ABDOMEN: Soft , no tenderness EXTREMITIES: No edema feet - Labs CBC & Chem 7: 10/03/24 04:20 10/03/24 04:21 Labs: Abnormal Lab Results - Last 24 Hours (Table) 10/03/24 10/03/24 Range/Units 04:20 04:21 WBC 14.54 H (4.50-10.00) X 10*3/uL RBC 3.72 L (4.10-5.20) X 10*6/uL Hgb 9.8 L (12.0-15.0) g/dL Hct 31.2 L (37.2-46.3) % MCH 26.3 L (27.0-32.0) pg MCHC 31.4 L (32.0-37.0) g/dL RDW 14.7 H (11.5-14.5) % MPV 9.4 L (9.5-12.2) FL Immature Gran # 0.13 H (0.00-0.04) X 10*3/uL Neutrophils # 12.96 H (1.80-7.70) X 10*3/uL Lymphocytes # 0.80 L (0.90-5.00) X 10*3/uL Eosinophils # 0 L (0.04-0.35) X 10*3/uL Creatinine 0.4 L (0.6-1.5) mg/dL BUN/Creatinine Ratio 62.75 H (12.00-20.00) Ratio Glucose 130 H (70-110) mg/dL Calcium 8.2 L (8.7-10.3) mg/dL AST 11 L (13-35) U/L Total Protein 5.0 L (6.2-8.2) g/dL Albumin 3.0 L (3.8-4.9) g/dL Albumin/Globulin Ratio 1.50 L (1.60-3.17) Ratio Microbiology - Last 24 Hours (Table) 10/02/24 10:00 Gram Stain - Preliminary Bronchoalviolar Lavage - Right Bronchial Washings Culture - Preliminary 09/30/24 12:18 Nasal Screen MRSA/MSSA - Final Nasal Swab Assessment and Plan (1) Leukocytosis Current Visit: No Status: Acute Code(s): D72.829 - ELEVATED WHITE BLOOD CELL COUNT, UNSPECIFIED SNOMED Code(s): 885964804 (2) Pneumonia Current Visit: No Status: Acute Code(s): J18.9 - PNEUMONIA, UNSPECIFIED ORGANISM SNOMED Code(s): 011623346 (3) Positive blood culture Current Visit: Yes Status: Acute Code(s): R78.81 - BACTEREMIA SNOMED Code(s): 982223716 Plan: 1patient presented to hospital with increasing shortness of breath which is likely multifactorial in this patient possible acute exacerbation with acute bronchitis however there was some abnormality seen on the CT underlying pneumonia not excluded keeping in mind patient has been out of the hospital will need to cover for resistant gram-positive as well as gram-negative pathogen. 2leukocytosis possible related to steroid versus pneumonia, patient white count has normalized 3-positive blood culture with gram-positive cocci still awaiting final ID sensitivity more likely contamination 4-MRSA nasal screen negative the patient is status post bronchoscopy washout and culture results will be followed 5- patient will be treated with cefepime while waiting for the bronchial washing cultures to be finalized Dictation was produced using [employer] dictation software. please excuse any grammatical, word or spelling errors. Time with Patient: Less than 30
--- NOTE | 2024-10-03 17:03 | P.PN ---
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 Patient presents to ER with complaints of worsening shortness of breath for the past 2 days. She was also complaining of sputum with greenish sputum production. No complaints of chest pain. Denied any fever or chills. No nausea vomiting abdominal pain or diarrhea. Chest x-ray showed bibasilar airspace opacities related to atypical pneumonia. EKG showed sinus tachycardia with heart rate 104 and QTc 383. Laboratory data showed WBC 10.6 hemoglobin 10.3 and platelets 447 sodium 134 potassium 4.5 chloride 89 bicarb is 33 9 BUN 10 and creatinine 0.48 and blood sugar 151. Troponin x 1 negative. 09/26/2024 Patient is lying in the bed. Awake alert and oriented. Still complains of shortness of breath. Currently requiring 3 L oxygen via nasal cannula. Otherwise patient states that she had episode of coughing blood, bright red about a teaspoonful x 1 today afternoon. No further episodes of bleeding. No complaints of chest pain. Denies any fever or chills. Patient is being continued on IV Solu-Medrol, DuoNebs, Pulmicort and Perforomist. Xarelto dose will be held today. Follow-up hemoglobin level will be ordered. 09/27/2024 Patient is lying in the bed. Awake alert and oriented. No complaints of chest pain. Breathing is slightly better compared to yesterday. Less bronchospastic. Otherwise patient has been afebrile.. No further episodes of hemoptysis. Patient started on broad-spectrum antibiotics with vancomycin and cefepime as per pulmonary recommendations blood cultures negative so far.No nausea vomiting abdominal pain or diarrhea. Lab data showed WBC 16.4 hemoglobin 9.8 and platelets 466 sodium 137 potassium 4.4, chloride 94, bicarb 35.8 BUN 16.9 and creatinine 0.5 and blood sugar 94 09/28 Patient lying in bed does not look in distress However patient states she still have breathing difficulty. She denies chest pain, she denies coughing or phlegm production. She is currently on 3 L of oxygen, she states at home she uses 2.5 L She is complaining from lower abdominal pain with no significant tenderness, no specific GI or symptoms like no dysuria or change in frequency or diarrhea. She has good appetite with no nausea vomiting This pain looks mild and present since admission. On exam she has decreased air entry on both sides no significant wheezing or crepitation 09/30 Patient states she still complaining shortness of breath. However on examination no significant wheezing or crepitation. No tachypnea was noted as well Patient denies any depression or feeling down I advised the patient to get out of bed to chair today and she agrees. She remains on broad-spectrum antibiotics with IV vancomycin and cefepime and high-dose Solu-Medrol 60 mg as well as Xarelto. On examination patient does not have leg edema or signs of fluid overloa 10/01 Patient is still with respiratory difficulty. Also she feels very weak No much improvement over the last 2 to 3 days Pulmonary team are planning for bronchoscopy and bronchoalveolar lavage and pulmonary toilet Other than that she remains on IV antibiotics with IV vancomycin and cefepime as per ID team and IV Solu-Medrol and Xarelt 10/02 Patient with persistent tachypnea and dyspnea, she still feels generally weak She is saturating 97% on 3 L oxygen via nasal cannula WBC is 10.8, hemoglobin 10.7, platelet count normal. BMP is unremarkable. Patient remains on IV vancomycin and cefepime per ID team and pulmonary team with the plan for bronchoscopy and bronchial toilet possible today Patient today complaining from epigastric pain and tenderness about 7/10 started yesterday stating associated with loose bowel movement about 3-4 per yesterday. We will check for C. difficile and ask for surgery team consult and check labs in the morning Patient s/p bronchoscopy today pending results Procedure note was reviewed by me. Results showing extensive mucous on both sides more on the right side. Bronchoalveolar lavage was done and samples were sent for Gram stain, culture and cytology as well as pneumocystis and Legionella which are pending now 10/03patient with history of chronic atrial fibrillation on anticoagulation, coronary artery disease, COPD, hypertension, hyperlipidemia, seizure disorder, Crohn's disease, pulmonary nodules, CVA, active smoking, history of marijuana and cocaine use who presented to hospital with shortness of breath going on for 2 to 3 days, chest x-ray showed bibasilar infiltrate suggestive of pneumonia,, had 1 episode of hemoptysis secondary to severe coughing. Pulmonary following, currently on bronchodilator with DuoNebs, inhaled corticosteroids, on Solu- Medrol. Blood culture came back positive for GPC in clusters, ID following. LFTs normal. Assessment and plan: Acute hypoxic respiratory failure: Status post bronchoscopy Bilateral pneumonia Acute COPD exacerbation Positive blood culture: GPC in clusters Acute hemoptysis x 1 episode. 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 Chronic pain Crohn's disease Seizure disorder Paroxysmal atrial fibrillation on anticoagulation with Xarelto Hypertension Hyperlipidemia Anxiety/depression/bipolar disorder Ongoing nicotine addiction History of alcohol abuse, cocaine, marijuana use Plan: Continue with IV Solu-Medrol, inhalers/bronchodilator protocol, pulmonary following. Follow-up BAL lavage sample for cytology, Legionella and pneumocystis as well as for culture Continue with antibiotics per pulmonary team, currently on IV cefepime and IV Vanco. We continue with to dose vancomycin. ID team consult, blood culture showed GPC in clusters. Continued home dose of Xarelto Consult surgery team for abdominal pain--ultrasound abdomen done, suspect chronic cholecystitis, no surgical intervention indicated. Labs and medication were reviewed.. Continue same treatment. Continue with sym ptomatic treatment. Resume home medication. Monitor labs and vitals. DVT and GI prophylaxis. Further recommendations as per clinical course of the patient DVT prophylaxis: Xarelto GI Prophylaxis: Protonix PT/OT: Pending Prognosis is guarded Monitor vital signs and labs Labs and medication were reviewed. Continue same treatment. Further recommendations as per clinical course of the patient PHYSICAL EXAMINATION: GENERAL: The patient is A&O x3, NAD HEENT: EOMI, Sclerae anicteric, Moist Mucous membranes Neck: Supple, Non tender, No JVD PULMONARY: Equal breath souds B/L, No wheezing, No crackles. CARDIOVASCULAR: S1, S2 present. No murmurs, rubs, or gallops. ABDOMEN: Soft, nontender, nondistended, normoactive bowel sounds. No guarding or rebound tenderness. MUSCULOSKELETAL: No edema, No cyanosis. No clubbing. Normal ROM. Intact peripheral pulses. NEUROLOGICAL: CN 2-12 grossly intact. No FND Skin: No Rash REVIEW OF SYSTEMS: CONSTITUTIONAL: No fever or chills. CARDIOVASCULAR: No chest pain, palpitations or syncope. PULMONARY: No shortness of breath, no cough, sore throat. GASTROINTESTINAL: No nausea, vomiting, diarrhea, abdominal pain. : No Dysuria, urgency, frequency. Extremities: No edema. NEUROLOGICAL: No headaches, no weakness, or numbness Dictation was produced using [employer] dictation software. please excuse any grammatical, word or spelling errors. Objective - Vital Signs Vital signs: Vital Signs Temp 98.1 F 10/03/24 07:49 Pulse 72 10/03/24 16:50 Resp 16 10/03/24 07:49 BP 145/75 10/03/24 07:49 Pulse Ox 99 10/03/24 07:49 FiO2 Intake & Output 10/02/24 10/03/24 10/03/24 18:59 06:59 18:59 Other: Voiding Method Diaper Diaper Diaper # Voids 1 3 1 - Labs CBC & Chem 7: 10/03/24 04:20 10/03/24 04:21 Labs: Abnormal Lab Results - Last 24 Hours (Table) 10/03/24 10/03/24 Range/Units 04:20 04:21 WBC 14.54 H (4.50-10.00) X 10*3/uL RBC 3.72 L (4.10-5.20) X 10*6/uL Hgb 9.8 L (12.0-15.0) g/dL Hct 31.2 L (37.2-46.3) % MCH 26.3 L (27.0-32.0) pg MCHC 31.4 L (32.0-37.0) g/dL RDW 14.7 H (11.5-14.5) % MPV 9.4 L (9.5-12.2) FL Immature Gran # 0.13 H (0.00-0.04) X 10*3/uL Neutrophils # 12.96 H (1.80-7.70) X 10*3/uL Lymphocytes # 0.80 L (0.90-5.00) X 10*3/uL Eosinophils # 0 L (0.04-0.35) X 10*3/uL Creatinine 0.4 L (0.6-1.5) mg/dL BUN/Creatinine Ratio 62.75 H (12.00-20.00) Ratio Glucose 130 H (70-110) mg/dL Calcium 8.2 L (8.7-10.3) mg/dL AST 11 L (13-35) U/L Total Protein 5.0 L (6.2-8.2) g/dL Albumin 3.0 L (3.8-4.9) g/dL Albumin/Globulin Ratio 1.50 L (1.60-3.17) Ratio Microbiology - Last 24 Hours (Table) 10/02/24 10:00 Gram Stain - Preliminary Bronchoalviolar Lavage - Right Bronchial Washings Culture - Preliminary
[2024-10-03] MEDS: RIVAROXABAN 20 MG TAB PO SCH (17:13)
[2024-10-04 09:54] LABS: HCT 31.8 % (37.2-46.3); HGB 9.8 g/dL (12.0-15.0); MCH 26.2 pg (27.0-32.0); MCHC 30.8 g/dL (32.0-37.0); Mean Platelet Volume 9.6 FL (9.5-12.2); NRBC Per 100 WBC 0 X 10*3/uL (0.00-0.01); Platelet Count 311 X 10*3/uL (140-440); RBC 3.74 X 10*6/uL (4.10-5.20); RDW 14.6 % (11.5-14.5); WBC 14.25 X 10*3/uL (4.50-10.00)
[2024-10-04 10:03] LABS: ALT 10 U/L (8-44); AST 12 U/L (13-35); Albumin/Globulin Ratio 1.67 Ratio (1.60-3.17); Alkaline Phosphatase 43 U/L (41-126); BUN/Creat Ratio 104.67 Ratio (12.00-20.00); Blood Urea Nitrogen 31.4 mg/dL (9.0-27.0); Calcium 7.9 mg/dL (8.7-10.3); Carbon Dioxide 30.8 mmol/L (21.6-31.8); Chloride 99 mmol/L (96-109); Globulin 1.8 g/dL (1.6-3.3); Glucose 80 mg/dL (70-110); Magnesium 1.8 mg/dL (1.5-2.4); Potassium 4.1 mmol/L (3.5-5.5); Sodium 135 mmol/L (135-145); Total Bilirubin 0.3 mg/dL (0.3-1.2); Total Protein 4.8 g/dL (6.2-8.2)
[2024-10-04 11:25] LABS: Basophils # (A) 0.02 X 10*3/uL (0.00-0.10); Basophils % (A) 0.1 %; Eosinophils # (A) 0.03 X 10*3/uL (0.04-0.35); Eosinophils % (A) 0.2 %; Lymphocytes # (A) 2.63 X 10*3/uL (0.90-5.00); Lymphocytes % (A) 18.5 %; Monocytes # (A) 1.65 X 10*3/uL (0.20-1.00); Monocytes % (A) 11.6 %; Neutrophils # (A) 9.78 X 10*3/uL (1.80-7.70); Neutrophils % (A) 68.6 %; RBC Morphology Normal (Normal)
--- NOTE | 2024-10-04 11:48 | P.PN ---
Subjective Progress Note Date: 10/04/24 Principal diagnosis: Chronic cholecystitis Patient feels about the same. Mild shortness of breath. Mild upper abdominal discomfort. Tolerating diet. No nausea or vomiting. Objective - Vital Signs Vital signs: Vital Signs Temp 97.1 F L 10/04/24 07:48 Pulse 80 10/04/24 09:20 Resp 16 10/04/24 07:48 BP 121/70 10/04/24 07:48 Pulse Ox 97 10/04/24 07:48 FiO2 Intake & Output 10/03/24 10/04/24 10/04/24 18:59 06:59 18:59 Intake Total 200 711 Balance 200 711 Intake: Intake, IV Titration 200 Amount Cefepime 2 gm In Sodium 200 Chloride 0.9% 100 ml @ 25 mls/hr IVPB Q8HR [facility] Rx# :[id number] Oral 711 Other: Voiding Method Diaper Diaper Diaper # Voids 1 1 - Exam Abdomen: Soft, nondistended, minimal upper abdominal tenderness - Labs CBC & Chem 7: 10/04/24 06:37 10/04/24 06:37 Labs: Abnormal Lab Results - Last 24 Hours (Table) 10/04/24 10/04/24 Range/Units 06:37 06:37 WBC 14.25 H (4.50-10.00) X 10*3/uL RBC 3.74 L (4.10-5.20) X 10*6/uL Hgb 9.8 L (12.0-15.0) g/dL Hct 31.8 L (37.2-46.3) % MCH 26.2 L (27.0-32.0) pg MCHC 30.8 L (32.0-37.0) g/dL RDW 14.6 H (11.5-14.5) % Immature Gran # 0.14 H (0.00-0.04) X 10*3/uL Neutrophils # 9.78 H (1.80-7.70) X 10*3/uL Monocytes # 1.65 H (0.20-1.00) X 10*3/uL Eosinophils # 0.03 L (0.04-0.35) X 10*3/uL BUN 31.4 H (9.0-27.0) mg/dL Creatinine 0.3 L (0.6-1.5) mg/dL BUN/Creatinine Ratio 104.67 H (12.00-20.00) Ratio Calcium 7.9 L (8.7-10.3) mg/dL AST 12 L (13-35) U/L Total Protein 4.8 L (6.2-8.2) g/dL Albumin 3.0 L (3.8-4.9) g/dL Microbiology - Last 24 Hours (Table) 10/02/24 10:00 Gram Stain - Preliminary Bronchoalviolar Lavage - Right Bronchial Washings Culture - Preliminary Stenotrophomonas maltophilia 10/02/24 10:00 Acid Fast Bacilli Smear - Preliminary Bronchoalviolar Lavage - Right Assessment and Plan (1) Chronic cholecystitis Narrative/Plan: Patient seems to be stable. Remains short of breath. Continue optimization of pulmonary status. Outpatient follow-up for cholecystectomy advised. Current Visit: Yes Status: Acute Code(s): K81.1 - CHRONIC CHOLECYSTITIS SNOMED Code(s): 77033941
--- NOTE | 2024-10-04 12:18 | P.PN ---
Subjective Progress Note Date: 10/04/24 Principal diagnosis: Bilateral basal pneumonia/healthcare associated pneumonia would recommend to use broad-spectrum antibiotics like Zosyn with vancomycin or cefepime with vancomy bharath Gram-positive cocci in clusters, antibiotic as above with IV vancomycin Hemoptysis, likely related to airway inflammation with some contribution from direct oral anticoagulant will monitor and trend, if continuous pattern is seen consider stopping direct oral anticoagulant transiently History of pulmonary nodules subcentimeter in size thought to be inflammatory, patient no-show in the office we will get a CT scan of the chest without contrast Advance Crohn's disease, on supportive care in remission Severe end-stage COPD with exacerbation, bronchodilators IV steroids and breathing treatments and inhaled aerosolized steroids History of extensive smoking and nicotine use Seizure disorder, no new seizures seen, continue Keppra Generalized anxiety disorder Major depression October 04, 2024, patient seen evaluate examined during rounds labs reviewed medications reviewed care plan discussed, respiratory status unchanged, however respiratory breathing easier since bronchoscopy, washings came back positive for Stenotrophomonas maltophilia sensitivity pending will ask ID to evaluate, patient is being followed by general surgery recommending outpatient cholecystectomy October 03, 2024, patient is status post bronchoscopy and BAL and pulmonary toilet tolerating very well, on the right base very thick and strings of mucous plugs were removed and noted patient tolerated the procedure well, afebrile, hemodynamic status stable except for transient bradycardia, ultrasound of the gallbladder positive for cholelithiasis without any gallbladder wall thickening, general surgery evaluating the patient October 02, 2024, patient seen eval examined during rounds labs reviewed me dications and care plan discussed,Patient n.p.o. for bronchoscopy later on this morning, hemodynamic status stable oxygen saturation 97% on 3 L ongoing cough congestion is present cough congested but nonproductive vancomycin trough is 14.4 October 01, 2024, patient seen eval examined during rounds labs reviewed medications with care plan discussed, respiratory status is still marginal ongoing cough congestion is present patient very weak to expectorate respiratory secretion, CT scan finding reviewed with the patient, best course of infection would be to proceed with bronchoscopy and pulmonary toilet as patient cannot ring up the respiratory secretion and mucous plug, patient is afebrile hemodynamic status stable saturation is 97% 2 L, labs from today reviewed WBC is 10.8, hemoglobin hematocrit 10.7/34 platelet count 352 chemistry not done today medications reviewed patient remains on IV steroids bronchodilators and IV cefepime with vancomycin, more than a week have been positive by and still do not have ID on gram-positive cocci in clusters patient remains on Vanco and cefepime and ID service following September 30, 2024, patient seen eval examined during rounds labs reviewed medication care plan discussed, patient remains on 3 L nasal cannula saturation 96% hemodynamic status however stable, patient remains afebrile, blood culture were positive for gram-positive cocci in clusters, final ID is pending remains on bronchodilator cefepime continuation of home medicine IV Solu-Medrol every [address] scan of the chest performed on September 27 right lower lobe bronchovascular markings seen along with opacified large airway suggestive of postobstructive atelectasis likely mucous plug discussed with her at length about bronchoscopy and lavage patient agreed to it, is still intermittently bronchospastic we will hold another 24 to 48 hours and likely bronc BAL for pulmonary toilet in the next 48 hours 64-year-old female presented to the emergency department with increasing shortness of breath going on for 2 to 3 days, patient has a longstanding history of smoking and nicotine use, patient uses albuterol nebulizer but was not helpi ng came into the hospital for further evaluation. Cough is associated with greenish sputum, chest x-ray significant for bilateral basilar infiltrate suggestive of pneumonia, significant labs include WBC count of 10.6, hemoglobin of 10.3 chemistry fairly within normal limit BUN/creatinine also normal troponin were negative. Patient uses 3 L nasal cannula patient had episode of hemoptysis about 1 teaspoon x 1 related to severe coughing, denies any previous episode of hemoptysis before. Currently patient is on bronchodilator, with DuoNeb as well as inhaled aerosolized steroids, continuation of her home medicines, patient has been on Solu-Medrol 60 mg every 6 and direct acting oral anticoagulant patient has been getting Zithromax which has been discontinued blood culture came back positive for gram-positive cocci in clusters. Labs from today significant for white cell count is up to 16.49, procalcitonin however 0.03, lactic acid 0.9, LFTs within normal limit Her prior medical history significant for chronic atrial fibrillation on anticoagulation with direct acting oral anticoagulant, coronary artery disease, COPD, dyslipidemia, hypertension hypertensive cardiovascular disease, seizure disorder, syncope pulmonary nodules being followed on outpatient, history of seizure disorder, Crohn's disease, CVA, active smoking, prior history of marijuana and cocaine use Objective - Vital Signs Vital signs: Vital Signs Temp 97.1 F L 10/04/24 07:48 Pulse 80 10/04/24 09:20 Resp 16 10/04/24 07:48 BP 121/70 10/04/24 07:48 Pulse Ox 97 10/04/24 07:48 FiO2 Intake & Output 10/03/24 10/04/24 10/04/24 18:59 06:59 18:59 Intake Total 200 711 Balance 200 711 Intake: Intake, IV Titration 200 Amount Cefepime 2 gm In Sodium 200 Chloride 0.9% 100 ml @ 25 mls/hr IVPB Q8HR [facility] Rx# :[id number] Oral 711 Other: Voiding Method Diaper Diaper Diaper # Voids 1 1 - Exam - Constitutional General appearance: average body habitus, disheveled - EENT Eyes: abnormal pupil, EOMI, PERRLA ENT: normal oropharynx Ears: bilateral: normal - Neck Carotids: bilateral: upstroke normal - Respiratory Respiratory: bilateral: diminished, wheezing (With Rales at the bases) - Cardiovascular Rhythm: regular Heart sounds: normal: S1, S2 - Gastrointestinal General gastrointestinal: normal bowel sounds - Integumentary Integumentary: normal turgor - Neurologic Neurologic: CNII-XII intact - Musculoskeletal Musculoskeletal: gait normal, generalized weakness, strength equal bilaterally - Psychiatric Psychiatric: A&O x's 3, appropriate affect, intact judgment & insight - Labs CBC & Chem 7: 10/04/24 06:37 10/04/24 06:37 Labs: Abnormal Lab Results - Last 24 Hours (Table) 10/04/24 10/04/24 Range/Units 06:37 06:37 WBC 14.25 H (4.50-10.00) X 10*3/uL RBC 3.74 L (4.10-5.20) X 10*6/uL Hgb 9.8 L (12.0-15.0) g/dL Hct 31.8 L (37.2-46.3) % MCH 26.2 L (27.0-32.0) pg MCHC 30.8 L (32.0-37.0) g/dL RDW 14.6 H (11.5-14.5) % Immature Gran # 0.14 H (0.00-0.04) X 10*3/uL Neutrophils # 9.78 H (1.80-7.70) X 10*3/uL Monocytes # 1.65 H (0.20-1.00) X 10*3/uL Eosinophils # 0.03 L (0.04-0.35) X 10*3/uL BUN 31.4 H (9.0-27.0) mg/dL Creatinine 0.3 L (0.6-1.5) mg/dL BUN/Creatinine Ratio 104.67 H (12.00-20.00) Ratio Calcium 7.9 L (8.7-10.3) mg/dL AST 12 L (13-35) U/L Total Protein 4.8 L (6.2-8.2) g/dL Albumin 3.0 L (3.8-4.9) g/dL Microbiology - Last 24 Hours (Table) 10/02/24 10:00 Gram Stain - Preliminary Bronchoalviolar Lavage - Right Bronchial Washings Culture - Preliminary Stenotrophomonas maltophilia 10/02/24 10:00 Acid Fast Bacilli Smear - Preliminary Bronchoalviolar Lavage - Right Assessment and Plan Assessment: Bilateral basal pneumonia/healthcare associated pneumonia bronchial washing positive for Stenotrophomonas maltophilia, recommend infectious disease evaluation for adjustment antibiotics Right lower lobe infiltrate/atelectasis with mucous plugging as well as bronchoscopy with bronchoalveolar lavage and pulmonary toilet with thick string of mucous plugs removed from the right lower lobe, on October 02, 2024 Cholelithiasis without gallbladder wall inflammation General Surgery following, recommending cholecystectomy Gram-positive cocci in clusters, antibiotic as above with IV vancomycin Hemoptysis, likely related to airway inflammation with some contribution from direct oral anticoagulant will monitor and trend, if continuous pattern is seen consider stopping direct oral anticoagulant transiently History of pulmonary nodules subcentimeter in size thought to be inflammatory, patient no-show in the office we will get a CT scan of the chest without contrast Advance Crohn's disease, on supportive care in remission Severe end-stage COPD with exacerbation, bronchodilators IV steroids and breathing treatments and inhaled aerosolized steroids History of extensive smoking and nicotine use Seizure disorder, no new seizures seen, continue Keppra Generalized anxiety disorder Major depression Plan: As above Time with Patient: Greater than 30
--- NOTE | 2024-10-04 15:21 | P.PN ---
Subjective Progress Note Date: 10/04/24 Principal diagnosis: Reason for follow-up is pneumonia/positive blood culture Patient is a 64-year-old female with a past medical history significant for COPD coronary disease hypertension hyperlipidemia osteoarthritis seizure disorder atrial fibrillation patient has been brought to the hospital for evaluation of increasing shortness of breath did have a CT of the chest concerning for possible right lower lobe postobstructive atelectasis/pneumonia. Patient did have bronchial washing on 10/02/2024 with extraction of mucous plugs and culture On today's evaluation that is 10/04/2024, Patient is afebrile patient is currently on 2 L nasal cannula oxygen complaining of shortness of breath denies any chest pain no worsening cough or sputum production no abdominal pain no diarrhea asking for more pain medication. Patient white count is down to 14.25, creatinine 0.3 BAL culture currently growing stenotrophomonas Objective - Vital Signs Vital signs: Vital Signs Temp 97.1 F L 10/04/24 07:48 Pulse 82 10/04/24 13:20 Resp 16 10/04/24 07:48 BP 121/70 10/04/24 07:48 Pulse Ox 97 10/04/24 07:48 FiO2 Intake & Output 10/03/24 10/04/24 10/04/24 18:59 06:59 18:59 Intake Total 200 711 Balance 200 711 Intake: Intake, IV Titration 200 Amount Cefepime 2 gm In Sodium 200 Chloride 0.9% 100 ml @ 25 mls/hr IVPB Q8HR [facility] Rx# :[id number] Oral 711 Other: Voiding Method Diaper Diaper Diaper # Voids 1 1 - Exam GENERAL DESCRIPTION: An elderly female lying in bed in no distress RESPIRATORY SYSTEM: Unlabored breathing , decreased breath sounds at bases HEART: S1 S2 regular rate and rhythm , ABDOMEN: Soft , no tenderness EXTREMITIES: No edema feet - Labs CBC & Chem 7: 10/04/24 06:37 10/04/24 06:37 Labs: Abnormal Lab Results - Last 24 Hours (Table) 10/04/24 10/04/24 Range/Units 06:37 06:37 WBC 14.25 H (4.50-10.00) X 10*3/uL RBC 3.74 L (4.10-5.20) X 10*6/uL Hgb 9.8 L (12.0-15.0) g/dL Hct 31.8 L (37.2-46.3) % MCH 26.2 L (27.0-32.0) pg MCHC 30.8 L (32.0-37.0) g/dL RDW 14.6 H (11.5-14.5) % Immature Gran # 0.14 H (0.00-0.04) X 10*3/uL Neutrophils # 9.78 H (1.80-7.70) X 10*3/uL Monocytes # 1.65 H (0.20-1.00) X 10*3/uL Eosinophils # 0.03 L (0.04-0.35) X 10*3/uL BUN 31.4 H (9.0-27.0) mg/dL Creatinine 0.3 L (0.6-1.5) mg/dL BUN/Creatinine Ratio 104.67 H (12.00-20.00) Ratio Calcium 7.9 L (8.7-10.3) mg/dL AST 12 L (13-35) U/L Total Protein 4.8 L (6.2-8.2) g/dL Albumin 3.0 L (3.8-4.9) g/dL Microbiology - Last 24 Hours (Table) 10/02/24 10:00 Gram Stain - Preliminary Bronchoalviolar Lavage - Right Bronchial Washings Culture - Preliminary Stenotrophomonas maltophilia 10/02/24 10:00 Acid Fast Bacilli Smear - Preliminary Bronchoalviolar Lavage - Right Assessment and Plan (1) Leukocytosis Current Visit: No Status: Acute Code(s): D72.829 - ELEVATED WHITE BLOOD CELL COUNT, UNSPECIFIED SNOMED Code(s): 920534553 (2) Pneumonia Current Visit: No Status: Acute Code(s): J18.9 - PNEUMONIA, UNSPECIFIED ORGANISM SNOMED Code(s): 157950956 (3) Positive blood culture Current Visit: Yes Status: Acute Code(s): R78.81 - BACTEREMIA SNOMED Code(s): 933527376 Plan: 1patient presented to hospital with increasing shortness of breath which is likely multifactorial in this patient possible acute exacerbation with acute bronchitis however there was some abnormality seen on the CT underlying pneumonia not excluded keeping in mind patient has been out of the hospital will need to cover for resistant gram-positive as well as gram-negative pathogen. 2leukocytosis possible related to steroid versus pneumonia, patient white count has normalized 3-positive blood culture with gram-positive cocci still awaiting final ID sensi tivity more likely contamination 4-MRSA nasal screen negative the patient is status post bronchoscopy washout and culture results will be followed 5- patient bronchial washing currently growing stenotrophomonas and sensitivities pending patient is on cefepime, is allergic to Levaquin we will add Bactrim DS pending sensitivity Dictation was produced using [employer] dictation software. please excuse any grammatical, word or spelling errors. Time with Patient: Less than 30
--- NOTE | 2024-10-04 16:11 | P.PN ---
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 Patient presents to ER with complaints of worsening shortness of breath for the past 2 days. She was also complaining of sputum with greenish sputum production. No complaints of chest pain. Denied any fever or chills. No nausea vomiting abdominal pain or diarrhea. Chest x-ray showed bibasilar airspace opacities related to atypical pneumonia. EKG showed sinus tachycardia with heart rate 104 and QTc 383. Laboratory data showed WBC 10.6 hemoglobin 10.3 and platelets 447 sodium 134 potassium 4.5 chloride 89 bicarb is 33 9 BUN 10 and creatinine 0.48 and blood sugar 151. Troponin x 1 negative. 09/26/2024 Patient is lying in the bed. Awake alert and oriented. Still complains of shortness of breath. Currently requiring 3 L oxygen via nasal cannula. Otherwise patient states that she had episode of coughing blood, bright red about a teaspoonful x 1 today afternoon. No further episodes of bleeding. No complaints of chest pain. Denies any fever or chills. Patient is being continued on IV Solu-Medrol, DuoNebs, Pulmicort and Perforomist. Xarelto dose will be held today. Follow-up hemoglobin level will be ordered. 09/27/2024 Patient is lying in the bed. Awake alert and oriented. No complaints of chest pain. Breathing is slightly better compared to yesterday. Less bronchospastic. Otherwise patient has been afebrile.. No further episodes of hemoptysis. Patient started on broad-spectrum antibiotics with vancomycin and cefepime as per pulmonary recommendations blood cultures negative so far.No nausea vomiting abdominal pain or diarrhea. Lab data showed WBC 16.4 hemoglobin 9.8 and platelets 466 sodium 137 potassium 4.4, chloride 94, bicarb 35.8 BUN 16.9 and creatinine 0.5 and blood sugar 94 09/28 Patient lying in bed does not look in distress However patient states she still have breathing difficulty. She denies chest pain, she denies coughing or phlegm production. She is currently on 3 L of oxygen, she states at home she uses 2.5 L She is complaining from lower abdominal pain with no significant tenderness, no specific GI or symptoms like no dysuria or change in frequency or diarrhea. She has good appetite with no nausea vomiting This pain looks mild and present since admission. On exam she has decreased air entry on both sides no significant wheezing or crepitation 09/30 Patient states she still complaining shortness of breath. However on examinatio n no significant wheezing or crepitation. No tachypnea was noted as well Patient denies any depression or feeling down I advised the patient to get out of bed to chair today and she agrees. She remains on broad-spectrum antibiotics with IV vancomycin and cefepime and high-dose Solu-Medrol 60 mg as well as Xarelto. On examination patient does not have leg edema or signs of fluid overloa 10/01 Patient is still with respiratory difficulty. Also she feels very weak No much improvement over the last 2 to 3 days Pulmonary team are planning for bronchoscopy and bronchoalveolar lavage and pulmonary toilet Other than that she remains on IV antibiotics with IV vancomycin and cefepime as per ID team and IV Solu-Medrol and Xarelt 10/02 Patient with persistent tachypnea and dyspnea, she still feels generally weak She is saturating 97% on 3 L oxygen via nasal cannula WBC is 10.8, hemoglobin 10.7, platelet count normal. BMP is unremarkable. Patient remains on IV vancomycin and cefepime per ID team and pulmonary team with the plan for bronchoscopy and bronchial toilet possible today Patient today complaining from epigastric pain and tenderness about 7/10 started yesterday stating associated with loose bowel movement about 3-4 per yesterday. We will check for C. difficile and ask for surgery team consult and check labs in the morning Patient s/p bronchoscopy today pending results Procedure note was reviewed by me. Results showing extensive mucous on both sides more on the right side. Bronchoalveolar lavage was done and samples were sent for Gram stain, culture and cytology as well as pneumocystis and Legionella which are pending now 10/03patient with history of chronic atrial fibrillation on anticoagulation, coronary artery disease, COPD, hypertension, hyperlipidemia, seizure disorder, Crohn's disease, pulmonary nodules, CVA, active smoking, history of marijuana and cocaine use who presented to hospital with shortness of breath going on for 2 to 3 days, chest x-ray showed bibasilar infiltrate suggestive of pneumonia,, had 1 episode of hemoptysis secondary to severe coughing. Pulmonary following, currently on bronchodilator with DuoNebs, inhaled corticosteroids, on Solu- Medrol. Blood culture came back positive for GPC in clusters, ID following. LFTs normal. 10/04--patient was seen and examined today. No issues overnight. Vital stable, saturating 97% on 2 L. Complains of shortness breath and cough. WBCs 14.2, hemoglobin 9.8, platelet 311. BMP unremarkable. LFTs unremarkable. ID following, currently on cefepime and Bactrim. Pulmonary and general surgery following. Assessment and plan: Acute hypoxic respiratory failure: Status post bronchoscopy Bilateral pneumonia Acute COPD exacerbation Positive blood culture: GPC in clusters Acute hemoptysis x 1 episode. Evaluated by pharmaceutical service representative most likely secondary to above Hypovolemic hyponatremia, mild UDS positive for benzodiazepines and tricyclic antidepressants History of CVA with residual right-sided weakness and spasms Lithiasis, chronic cholecystitis: Ultrasound gallbladder unremarkable, general surgery consulted, no surgical intervention. Chronic pain Crohn's disease Seizure disorder Paroxysmal atrial fibrillation on anticoagulation with Xarelto Hypertension Hyperlipidemia Anxiety/depression/bipolar disorder Ongoing nicotine addiction History of alcohol abuse, cocaine, marijuana use Plan: Continue with IV Solu-Medrol, inhalers/bronchodilator protocol, pulmonary following. Follow-up BAL lavage sample for cytology, Legionella and pneumocystis as well as for culture Continue with antibiotics per pulmonary team, currently on IV cefepime and Bactrim. Vancomycin discontinued. ID team consult, blood culture showed GPC in clusters--likely contaminant, awaiting sensitivities. Continued home dose of Xarelto Consult surgery team for abdominal pain--ultrasound abdomen done, suspect chronic cholecystitis, no surgical intervention indicated. Labs and medication were reviewed.. Continue same treatment. Continue with symptomatic treatment. Resume home medication. Monitor labs and vitals. DVT and GI prophylaxis. Further recommendations as per clinical course of the patient DVT prophylaxis: Xarelto GI Prophylaxis: Protonix PT/OT: Pending Prognosis is guarded Monitor vital signs and labs Labs and medication were reviewed. Continue same treatment. Further recommendations as per clinical course of the patient PHYSICAL EXAMINATION: GENERAL: The patient is A&O x3, NAD HEENT: EOMI, Sclerae anicteric, Moist Mucous membranes Neck: Supple, Non tender, No JVD PULMONARY: Equal breath souds B/L, No wheezing, No crackles. CARDIOVASCULAR: S1, S2 present. No murmurs, rubs, or gallops. ABDOMEN: Soft, nontender, nondistended, normoactive bowel sounds. No guarding or rebound tenderness. MUSCULOSKELETAL: No edema, No cyanosis. No clubbing. Normal ROM. Intact peripheral pulses. NEUROLOGICAL: CN 2-12 grossly intact. No FND Skin: No Rash REVIEW OF SYSTEMS: CONSTITUTIONAL: No fever or chills. CARDIOVASCULAR: No chest pain, palpitations or syncope. PULMONARY: No shortness of breath, no cough, sore throat. GASTROINTESTINAL: No nausea, vomiting, diarrhea, abdominal pain. : No Dysuria, urgency, frequency. Extremities: No edema. NEUROLOGICAL: No headaches, no weakness, or numbness Dictation was produced using [employer] dictation software. please excuse any grammatical, word or spelling errors. Objective - Vital Signs Vital signs: Vital Signs Temp 97.1 F L 10/04/24 07:48 Pulse 82 10/04/24 13:20 Resp 16 10/04/24 07:48 BP 121/70 10/04/24 07:48 Pulse Ox 97 10/04/24 07:48 FiO2 Intake & Output 10/03/24 10/04/24 10/04/24 18:59 06:59 18:59 Intake Total 200 711 Balance 200 711 Intake: Intake, IV Titration 200 Amount Cefepime 2 gm In Sodium 200 Chloride 0.9% 100 ml @ 25 mls/hr IVPB Q8HR [facility] Rx# :[id number] Oral 711 Other: Voiding Method Diaper Diaper Diaper # Voids 1 1 - Labs CBC & Chem 7: 10/04/24 06:37 10/04/24 06:37 Labs: Abnormal Lab Results - Last 24 Hours (Table) 10/04/24 10/04/24 Range/Units 06:37 06:37 WBC 14.25 H (4.50-10.00) X 10*3/uL RBC 3.74 L (4.10-5.20) X 10*6/uL Hgb 9.8 L (12.0-15.0) g/dL Hct 31.8 L (37.2-46.3) % MCH 26.2 L (27.0-32.0) pg MCHC 30.8 L (32.0-37.0) g/dL RDW 14.6 H (11.5-14.5) % Immature Gran # 0.14 H (0.00-0.04) X 10*3/uL Neutrophils # 9.78 H (1.80-7.70) X 10*3/uL Monocytes # 1.65 H (0.20-1.00) X 10*3/uL Eosinophils # 0.03 L (0.04-0.35) X 10*3/uL BUN 31.4 H (9.0-27.0) mg/dL Creatinine 0.3 L (0.6-1.5) mg/dL BUN/Creatinine Ratio 104.67 H (12.00-20.00) Ratio Calcium 7.9 L (8.7-10.3) mg/dL AST 12 L (13-35) U/L Total Protein 4.8 L (6.2-8.2) g/dL Albumin 3.0 L (3.8-4.9) g/dL Microbiology - Last 24 Hours (Table) 10/02/24 10:00 Gram Stain - Preliminary Bronchoalviolar Lavage - Right Bronchial Washings Culture - Preliminary Stenotrophomonas maltophilia 10/02/24 10:00 Acid Fast Bacilli Smear - Preliminary Bronchoalviolar Lavage - Right
[2024-10-04] MEDS: SULFAMETHOX-TMP 800-160MG 1 EACH TAB PO SCH (17:30)
[2024-10-05] MEDS: SULFAMETHOX-TMP 800-160MG 1 EACH TAB PO SCH (08:00)
[2024-10-05 09:36] LABS: African American GFR (CKD) >90 (>60 ml/min/1.73 sqM); Anion Gap 2 mmol/L; Blood Urea Nitrogen 31 mg/dL (7-17); Carbon Dioxide 34 mmol/L (22-30); Chloride 96 mmol/L (98-107); Glucose 88 mg/dL (74-99); Non-African American GFR(CKD) >90 (>60 ml/min/1.73 sqM); Potassium 4.7 mmol/L (3.5-5.1); Sodium 132 mmol/L (137-145)
[2024-10-05 15:29] LABS: Basophils # (A) 0.01 X 10*3/uL (0.00-0.10); Basophils % (A) 0.1 %; Eosinophils # (A) 0.01 X 10*3/uL (0.04-0.35); Eosinophils % (A) 0.1 %; HCT 31.2 % (37.2-46.3); HGB 9.9 g/dL (12.0-15.0); Lymphocytes # (A) 1.45 X 10*3/uL (0.90-5.00); Lymphocytes % (A) 10.5 %; MCH 26.7 pg (27.0-32.0); MCHC 31.7 g/dL (32.0-37.0); MCV 84.1 FL (80.0-97.0); Mean Platelet Volume 9.7 FL (9.5-12.2); Monocytes # (A) 1.05 X 10*3/uL (0.20-1.00); Monocytes % (A) 7.6 %; NRBC Per 100 WBC 0 X 10*3/uL (0.00-0.01); Neutrophils # (A) 11.17 X 10*3/uL (1.80-7.70); Neutrophils % (A) 80.6 %; Platelet Count 315 X 10*3/uL (140-440); RBC 3.71 X 10*6/uL (4.10-5.20); RDW 14.9 % (11.5-14.5); WBC 13.84 X 10*3/uL (4.50-10.00)
--- NOTE | 2024-10-05 15:33 | P.PN ---
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 Patient presents to ER with complaints of worsening shortness of breath for the past 2 days. She was also complaining of sputum with greenish sputum production. No complaints of chest pain. Denied any fever or chills. No nausea vomiting abdominal pain or diarrhea. Chest x-ray showed bibasilar airspace opacities related to atypical pneumonia. EKG showed sinus tachycardia with heart rate 104 and QTc 383. Laboratory data showed WBC 10.6 hemoglobin 10.3 and platelets 447 sodium 134 potassium 4.5 chloride 89 bicarb is 33 9 BUN 10 and creatinine 0.48 and blood sugar 151. Troponin x 1 negative. 09/26/2024 Patient is lying in the bed. Awake alert and oriented. Still complains of shortness of breath. Currently requiring 3 L oxygen via nasal cannula. Otherwise patient states that she had episode of coughing blood, bright red about a teaspoonful x 1 today afternoon. No further episodes of bleeding. No complaints of chest pain. Denies any fever or chills. Patient is being continued on IV Solu-Medrol, DuoNebs, Pulmicort and Perforomist. Xarelto dose will be held today. Follow-up hemoglobin level will be ordered. 09/27/2024 Patient is lying in the bed. Awake alert and oriented. No complaints of chest pain. Breathing is slightly better compared to yesterday. Less bronchospastic. Otherwise patient has been afebrile.. No further episodes of hemoptysis. Patient started on broad-spectrum antibiotics with vancomycin and cefepime as per pulmonary recommendations blood cultures negative so far.No nausea vomiting abdominal pain or diarrhea. Lab data showed WBC 16.4 hemoglobin 9.8 and platelets 466 sodium 137 potassium 4.4, chloride 94, bicarb 35.8 BUN 16.9 and creatinine 0.5 and blood sugar 94 09/28 Patient lying in bed does not look in distress However patient states she still have breathing difficulty. She denies chest pain, she denies coughing or phlegm production. She is currently on 3 L of oxygen, she states at home she uses 2.5 L She is complaining from lower abdominal pain with no significant tenderness, no specific GI or symptoms like no dysuria or change in frequency or diarrhea. She has good appetite with no nausea vomiting This pain looks mild and present since admission. On exam she has decreased air entry on both sides no significant wheezing or crepitation 09/30 Patient states she still complaining shortness of breath. However on examinatio n no significant wheezing or crepitation. No tachypnea was noted as well Patient denies any depression or feeling down I advised the patient to get out of bed to chair today and she agrees. She remains on broad-spectrum antibiotics with IV vancomycin and cefepime and high-dose Solu-Medrol 60 mg as well as Xarelto. On examination patient does not have leg edema or signs of fluid overloa 10/01 Patient is still with respiratory difficulty. Also she feels very weak No much improvement over the last 2 to 3 days Pulmonary team are planning for bronchoscopy and bronchoalveolar lavage and pulmonary toilet Other than that she remains on IV antibiotics with IV vancomycin and cefepime as per ID team and IV Solu-Medrol and Xarelt 10/02 Patient with persistent tachypnea and dyspnea, she still feels generally weak She is saturating 97% on 3 L oxygen via nasal cannula WBC is 10.8, hemoglobin 10.7, platelet count normal. BMP is unremarkable. Patient remains on IV vancomycin and cefepime per ID team and pulmonary team with the plan for bronchoscopy and bronchial toilet possible today Patient today complaining from epigastric pain and tenderness about 7/10 started yesterday stating associated with loose bowel movement about 3-4 per yesterday. We will check for C. difficile and ask for surgery team consult and check labs in the morning Patient s/p bronchoscopy today pending results Procedure note was reviewed by me. Results showing extensive mucous on both sides more on the right side. Bronchoalveolar lavage was done and samples were sent for Gram stain, culture and cytology as well as pneumocystis and Legionella which are pending now 10/03patient with history of chronic atrial fibrillation on anticoagulation, coronary artery disease, COPD, hypertension, hyperlipidemia, seizure disorder, Crohn's disease, pulmonary nodules, CVA, active smoking, history of marijuana and cocaine use who presented to hospital with shortness of breath going on for 2 to 3 days, chest x-ray showed bibasilar infiltrate suggestive of pneumonia,, had 1 episode of hemoptysis secondary to severe coughing. Pulmonary following, currently on bronchodilator with DuoNebs, inhaled corticosteroids, on Solu- Medrol. Blood culture came back positive for GPC in clusters, ID following. LFTs normal. 10/04--patient was seen and examined today. No issues overnight. Vital stable, saturating 97% on 2 L. Complains of shortness breath and cough. WBCs 14.2, hemoglobin 9.8, platelet 311. BMP unremarkable. LFTs unremarkable. ID following, currently on cefepime and Bactrim. Pulmonary and general surgery following. 10/05--- patient was seen and examined today. Patient complains of fatigue, patient complained of generalized bodyaches, declined PT/OT evaluation earlier. Remains on cefepime and Bactrim per infectious disease. Vital stable, WBCs 13.8, hemoglobin 9.9, platelet 315. BUN and creatinine unremarkable, sodium 132. BAL cytology pending. Assessment and plan: Acute hypoxic respiratory failure: Status post bronchoscopy Bilateral pneumonia Acute COPD exacerbation Positive blood culture: GPC in clusters Acute hemoptysis x 1 episode. Evaluated by cyber operator most likely secondary to above Hypovolemic hyponatremia, mild UDS positive for benzodiazepines and tricyclic antidepressants History of CVA with residual right-sided weakness and spasms Lithiasis, chronic cholecystitis: Ultrasound gallbladder unremarkable, general surgery consulted, no surgical intervention. Chronic pain Crohn's disease Seizure disorder Paroxysmal atrial fibrillation on anticoagulation with Xarelto Hypertension Hyperlipidemia Anxiety/depression/bipolar disorder Ongoing nicotine addiction History of alcohol abuse, cocaine, marijuana use Plan: inhalers/bronchodilator protocol, pulmonary following. Finished Solu-Medrol. Follow-up BAL lavage sample for cytology, Legionella and pneumocystis as well as for culture Continue with antibiotics per pulmonary team, currently on IV cefepime and Bactrim. Vancomycin discontinued. ID team consult, blood culture showed GPC in clusters--likely contaminant, awaiting sensitivities. Continued home dose of Xarelto Consult surgery team for abdominal pain--ultrasound abdomen done, suspect chronic cholecystitis, no surgical intervention indicated. Labs and medication were reviewed.. Continue same treatment. Continue with symptomatic treatment. Resume home medication. Monitor labs and vitals. DVT and GI prophylaxis. Further recommendations as per clinical course of the patie nt DVT prophylaxis: Xarelto PT/OT: Pending Prognosis is guarded Monitor vital signs and labs Labs and medication were reviewed. Continue same treatment. Further recommendations as per clinical course of the patient PHYSICAL EXAMINATION: GENERAL: The patient is A&O x3, NAD HEENT: EOMI, Sclerae anicteric, Moist Mucous membranes Neck: Supple, Non tender, No JVD PULMONARY: Equal breath souds B/L, No wheezing, No crackles. CARDIOVASCULAR: S1, S2 present. No murmurs, rubs, or gallops. ABDOMEN: Soft, nontender, nondistended, normoactive bowel sounds. No guarding or rebound tenderness. MUSCULOSKELETAL: No edema, No cyanosis. No clubbing. Normal ROM. Intact peripheral pulses. NEUROLOGICAL: CN 2-12 grossly intact. No FND Skin: No Rash REVIEW OF SYSTEMS: CONSTITUTIONAL: No fever or chills. CARDIOVASCULAR: No chest pain, palpitations or syncope. PULMONARY: No shortness of breath, no cough, sore throat. GASTROINTESTINAL: No nausea, vomiting, diarrhea, abdominal pain. : No Dysuria, urgency, frequency. Extremities: No edema. NEUROLOGICAL: No headaches, no weakness, or numbness Dictation was produced using [employer] dictation software. please excuse any grammatical, word or spelling errors. Objective - Vital Signs Vital signs: Vital Signs Temp 97.1 F L 10/05/24 07:20 Pulse 92 10/05/24 15:14 Resp 18 10/05/24 07:20 BP 136/70 10/05/24 07:20 Pulse Ox 98 10/05/24 07:20 FiO2 Intake & Output 10/04/24 10/05/24 10/05/24 18:59 06:59 18:59 Intake Total 680 240 Balance 680 240 Intake: Intake, IV Titration 200 Amount Cefepime 2 gm In Sodium 200 Chloride 0.9% 100 ml @ 25 mls/hr IVPB Q8HR [facility] Rx# :[id number] Oral 480 240 Other: Voiding Method Diaper Diaper Diaper Incontinent # Voids 3 2 # Bowel Movements 0 - Labs CBC & Chem 7: 10/05/24 07:32 10/05/24 07:32 Labs: Abnormal Lab Results - Last 24 Hours (Table) 10/05/24 10/05/24 Range/Units 07:32 07:32 WBC 13.84 H (4.50-10.00) X 10*3/uL RBC 3.71 L (4.10-5.20) X 10*6/uL Hgb 9.9 L (12.0-15.0) g/dL Hct 31.2 L (37.2-46.3) % MCH 26.7 L (27.0-32.0) pg MCHC 31.7 L (32.0-37.0) g/dL RDW 14.9 H (11.5-14.5) % Immature Gran # 0.15 H (0.00-0.04) X 10*3/uL Neutrophils # 11.17 H (1.80-7.70) X 10*3/uL Monocytes # 1.05 H (0.20-1.00) X 10*3/uL Eosinophils # 0.01 L (0.04-0.35) X 10*3/uL Sodium 132 L (137-145) mmol/L Chloride 96 L (98-107) mmol/L Carbon Dioxide 34 H (22-30) mmol/L BUN 31 H (7-17) mg/dL Creatinine 0.48 L (0.52-1.04) mg/dL Calcium 8.0 L (8.4-10.2) mg/dL Microbiology - Last 24 Hours (Table) 10/02/24 10:00 Gram Stain - Final Bronchoalviolar Lavage - Right Bronchial Washings Culture - Final Stenotrophomonas maltophilia
--- NOTE | 2024-10-05 15:49 | P.PN ---
Subjective Progress Note Date: 10/05/24 Principal diagnosis: Chronic cholecystitis Patient says her breathing is a little bit worse today. Complaining of pain throughout her body. Tolerating diet. Objective - Vital Signs Vital signs: Vital Signs Temp 98.2 F 10/05/24 14:00 Pulse 92 10/05/24 15:14 Resp 17 10/05/24 14:00 BP 133/76 10/05/24 14:00 Pulse Ox 100 10/05/24 14:00 FiO2 Intake & Output 10/04/24 10/05/24 10/05/24 18:59 06:59 18:59 Intake Total 680 240 Balance 680 240 Intake: Intake, IV Titration 200 Amount Cefepime 2 gm In Sodium 200 Chloride 0.9% 100 ml @ 25 mls/hr IVPB Q8HR [facility] Rx# :[id number] Oral 480 240 Other: Voiding Method Diaper Diaper Diaper Incontinent # Voids 3 2 # Bowel Movements 0 - Exam Abdomen: Soft, nontender, nondistended - Labs CBC & Chem 7: 10/05/24 07:32 10/05/24 07:32 Labs: Abnormal Lab Results - Last 24 Hours (Table) 10/05/24 10/05/24 Range/Units 07:32 07:32 WBC 13.84 H (4.50-10.00) X 10*3/uL RBC 3.71 L (4.10-5.20) X 10*6/uL Hgb 9.9 L (12.0-15.0) g/dL Hct 31.2 L (37.2-46.3) % MCH 26.7 L (27.0-32.0) pg MCHC 31.7 L (32.0-37.0) g/dL RDW 14.9 H (11.5-14.5) % Immature Gran # 0.15 H (0.00-0.04) X 10*3/uL Neutrophils # 11.17 H (1.80-7.70) X 10*3/uL Monocytes # 1.05 H (0.20-1.00) X 10*3/uL Eosinophils # 0.01 L (0.04-0.35) X 10*3/uL Sodium 132 L (137-145) mmol/L Chloride 96 L (98-107) mmol/L Carbon Dioxide 34 H (22-30) mmol/L BUN 31 H (7-17) mg/dL Creatinine 0.48 L (0.52-1.04) mg/dL Calcium 8.0 L (8.4-10.2) mg/dL Microbiology - Last 24 Hours (Table) 10/02/24 10:00 Gram Stain - Final Bronchoalviolar Lavage - Right Bronchial Washings Culture - Final Stenotrophomonas maltophilia Assessment and Plan (1) Chronic cholecystitis Narrative/Plan: Patient was suspected chronic cholecystitis. Doing better clinically as a pertains to her gallbladder currently. No plans for cholecystectomy during this hospital stay. Recommend outpatient follow-up. Will sign off. Please recons ult if needed. Current Visit: Yes Status: Acute Code(s): K81.1 - CHRONIC CHOLECYSTITIS SNOMED Code(s): 15850314
[2024-10-06 08:36] LABS: Basophils % (A) 0 %; Eosinophils % (A) 0 %; HCT 33.9 % (34.0-46.0); HGB 11.1 gm/dL (11.4-16.0); Lymphocytes # (A) 2.7 k/uL (1.0-4.8); Lymphocytes % (A) 18 %; MCH 27.2 pg (25.0-35.0); MCHC 32.7 g/dL (31.0-37.0); MCV 83.2 fL (80.0-100.0); Mean Platelet Volume 7.4; Monocytes % (A) 6 %; Neutrophils # (A) 11.2 k/uL (1.3-7.7); Neutrophils % (A) 75 %; Platelet Count 316 k/uL (150-450); RBC 4.07 m/uL (3.80-5.40); RDW 15.6 % (11.5-15.5)
[2024-10-06 08:51] LABS: African American GFR (CKD) >90 (>60 ml/min/1.73 sqM); Anion Gap 4 mmol/L; Blood Urea Nitrogen 30 mg/dL (7-17); Calcium 8.4 mg/dL (8.4-10.2); Carbon Dioxide 34 mmol/L (22-30); Chloride 93 mmol/L (98-107); Glucose 104 mg/dL (74-99); Non-African American GFR(CKD) >90 (>60 ml/min/1.73 sqM); Potassium 4.9 mmol/L (3.5-5.1); Sodium 131 mmol/L (137-145)
--- NOTE | 2024-10-06 15:11 | P.DS ---
Providers Date of admission: 09/25/24 13:13 Expected date of discharge: 10/08/24 Attending physician: Buddy Walker Consults: 09/26/24 13:44 Consult Physician Routine Consulting Provider: Jaun Cortez Consult Reason/Comments: COPD, hemoptysis Do you want consulting provider notified?: Yes 09/27/24 10:25 Consult Physician Routine Consulting Provider: Margarita Irwin Consult Reason/Comments: infection Do you want consulting provider notified?: Yes Primary care physician: Daksha [facility] Course: Discharge diagnoses: Acute hypoxic respiratory failure: Status post bronchoscopy Bilateral pneumonia Acute COPD exacerbation Positive blood culture: Contamination Acute hemoptysis x 1 episode. 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 Chronic pain Crohn's disease Seizure disorder Paroxysmal atrial fibrillation on anticoagulation with Xarelto Hypertension Hyperlipidemia Anxiety/depression/bipolar disorder Ongoing nicotine addiction History of alcohol abuse, cocaine, marijuana use Plan: inhalers/bronchodilator protocol, pulmonary consulted finished Solu-Medrol. Follow-up BAL lavage sample for cytology, Legionella and pneumocystis as well as for culture--culture growing staph Semones, infectious disease recommended to continue Bactrim for 7 days at discharge, received cefepime and Bactrim during hospitalization, also received vancomycin initially. ID consulted. Continue with antibiotics per pulmonary team, currently on IV cefepime and Bactrim. Vancomycin discontinued. ID team consult, blood culture showed GPC in clusters--likely contaminant. Continue on the Bactrim for 7 days at discharge. Continued home dose of Xarelto Consulted surgery team for abdominal pain--ultrasound abdomen done, suspect chronic cholecystitis, no surgical intervention indicated. Patient is symptomatic. Hospital course: Patient is a 64-year-old female with a past medical history of atrial fibrillation paroxysmal on anticoagulation with Xarelto, coronary artery disease, COPD, history of CVA/TIA with residual right-sided weakness and spasms, Crohn's disease, seizure disorder, hypertension, hyperlipidemia, GERD, chronic back pain, anxiety/depression/bipolar disorder currently everyday smoker and history of alcohol abuse and cocaine/marijuana use. Patient presents to ER with complaints of worsening shortness of breath for the past 2 days. She was also complaining of sputum with greenish sputum production. No complaints of chest pain. Denied any fever or chills. No nausea vomiting abdominal pain or diarrhea. Chest x-ray showed bibasilar airspace opacities related to atypical pneumonia. EKG showed sinus tachycardia with heart rate 104 and QTc 383. Laboratory data showed WBC 10.6 hemoglobin 10.3 and platelets 447 sodium 134 potassium 4.5 chloride 89 bicarb is 33 9 BUN 10 and creatinine 0.48 and blood sugar 151. Troponin x 1 negative. 09/26/2024 Patient is lying in the bed. Awake alert and oriented. Still complains of shortness of breath. Currently requiring 3 L oxygen via nasal cannula. Otherwise patient states that she had episode of coughing blood, bright red about a teaspoonful x 1 today afternoon. No further episodes of bleeding. No complaints of chest pain. Denies any fever or chills. Patient is being continued on IV Solu-Medrol, DuoNebs, Pulmicort and Perforomist. Xarelto dose will be held today. Follow-up hemoglobin level will be ordered. 09/27/2024 Patient is lying in the bed. Awake alert and oriented. No complaints of chest pain. Breathing is slightly better compared to yesterday. Less bronchospastic. Otherwise patient has been afebrile.. No further episodes of hemoptysis. Patient started on broad-spectrum antibiotics with vancomycin and cefepime as per pulmonary recommendations blood cultures negative so far.No nausea vomiting abdominal pain or diarrhea. Lab data showed WBC 16.4 hemoglobin 9.8 and platelets 466 sodium 137 potassium 4.4, chloride 94, bicarb 35.8 BUN 16.9 and creatinine 0.5 and blood sugar 94 09/28 Patient lying in bed does not look in distress However patient states she still have breathing difficulty. She denies chest pain, she denies coughing or phlegm production. She is currently on 3 L of oxygen, she states at home she uses 2.5 L She is complaining from lower abdominal pain with no significant tenderness, no specific GI or symptoms like no dysuria or change in frequency or diarrhea. She has good appetite with no nausea vomiting This pain looks mild and present since admission. On exam she has decreased air entry on both sides no significant wheezing or crepitation 09/30 Patient states she still complaining shortness of breath. However on examination no significant wheezing or crepitation. No tachypnea was noted as well Patient denies any depression or feeling down I advised the patient to get out of bed to chair today and she agrees. She remains on broad-spectrum antibiotics with IV vancomycin and cefepime and high-dose Solu-Medrol 60 mg as well as Xarelto. On examination patient does not have leg edema or signs of fluid overloa 10/01 Patient is still with respiratory difficulty. Also she feels very weak No much improvement over the last 2 to 3 days Pulmonary team are planning for bronchoscopy and bronchoalveolar lavage and pulmonary toilet Other than that she remains on IV antibiotics with IV vancomycin and cefepime as per ID team and IV Solu-Medrol and Xarelt 10/02 Patient with persistent tachypnea and dyspnea, she still feels generally weak She is saturating 97% on 3 L oxygen via nasal cannula WBC is 10.8, hemoglobin 10.7, platelet count normal. BMP is unremarkable. Patient remains on IV vancomycin and cefepime per ID team and pulmonary team with the plan for bronchoscopy and bronchial toilet possible today Patient today complaining from epigastric pain and tenderness about 04/15 started yesterday stating associated with loose bowel movement about 3-4 per yesterday. We will check for C. difficile and ask for surgery team consult and check labs in the morning Patient s/p bronchoscopy today pending results Procedure note was reviewed by me. Results showing extensive mucous on both sides more on the right side. Bronchoalveolar lavage was done and samples were sent for Gram stain, culture and cytology as well as pneumocystis and Legionella which are pending now 10/03patient with history of chronic atrial fibrillation on anticoagulation, coronary artery disease, COPD, hypertension, hyperlipidemia, seizure disorder, Crohn's disease, pulmonary nodules, CVA, active smoking, history of marijuana and cocaine use who presented to hospital with shortness of breath going on for 2 to 3 days, chest x-ray showed bibasilar infiltrate suggestive of pneumonia,, had 1 episode of hemoptysis secondary to severe coughing. Pulmonary following, currently on bronchodilator with DuoNebs, inhaled corticosteroids, on Solu- Medrol. Blood culture came back positive for GPC in clusters, ID following. LFTs normal. 10/04--patient was seen and examined today. No issues overnight. Vital stable, saturating 97% on 2 L. Complains of shortness breath and cough. WBCs 14.2, hemoglobin 9.8, platelet 311. BMP unremarkable. LFTs unremarkable. ID following, currently on cefepime and Bactrim. Pulmonary and general surgery following. 10/05--- patient was seen and examined today. Patient complains of fatigue, patient complained of generalized bodyaches, declined PT/OT evaluation earlier. Remains on cefepime and Bactrim per infectious disease. Vital stable, WBCs 13.8, hemoglobin 9.9, platelet 315. BUN and creatinine unremarkable, sodium 132. BAL cytology pending. 10/06---10/08/24--Patient was evaluated by PT/OT, patient refused rehab. Patient remained on baseline oxygen. Discussed with infectious disease, recommended to continue Bactrim for 7 days at discharge. Patient condition vital stable at discharge. Patient continued on prednisone taper at discharge. Patient home medication resumed at discharge. please refer to medical assessment plan for further details. PHYSICAL EXAMINATION: GENERAL: The patient is A&O x3, NAD HEENT: EOMI, Sclerae anicteric, Moist Mucous membranes Neck: Supple, Non tender, No JVD PULMONARY: Equal breath souds B/L, No wheezing, No crackles. CARDIOVASCULAR: S1, S2 present. No murmurs, rubs, or gallops. ABDOMEN: Soft, nontender, nondistended, normoactive bowel sounds. No guarding or rebound tenderness. MUSCULOSKELETAL: No edema, No cyanosis. No clubbing. Normal ROM. Intact peripheral pulses. NEUROLOGICAL: CN 2-12 grossly intact. No FND SKIN: No rashes. Dictation was produced using [employer] dictation software. please excuse any grammatical, word or spelling errors. Plan - Discharge Summary Discharge Rx Participant: Yes New Discharge Prescriptions: New predniSONE 10 mg PO DAILY #15 tab Sulfamethox-Tmp 800-160Mg [Bactrim DS 800-160 mg] 1 each PO BID #14 tab Nystatin 100,000 Unit/ml Susp [Mycostatin Oral Susp] 5 ml PO QID #100 ml Continue levETIRAcetam [Keppra] 1,000 mg PO BID Rivaroxaban [Xarelto] 20 mg PO DAILY Metoprolol Succinate [Toprol XL] 100 mg PO DAILY Acetaminophen Tab [Tylenol] 1,000 mg PO Q6HR PRN PRN Reason: Pain Or Fever > 100.5 Ondansetron [Zofran] 4 mg PO Q6H PRN PRN Reason: Nausea or Vomiting guaiFENesin [Mucinex] 600 mg PO Q12H 7 Days #14 tab Budesonide [Pulmicort] 1 mg INHALATION RT-BID ml Albuterol Sulfate [Albuterol Sulfate Hfa] 2 puff INHALATION RT-Q6H PRN #1 each PRN Reason: Shortness Of Breath Gabapentin [Neurontin] 300 mg PO BID Glycopyrrolate/Formoterol Fum [Bevespi Aerosphere Inhaler] 1 puff INHALATION RT-BID Ipratropium-Albuterol Nebulize [Duoneb 0.5 mg-3 mg/3 ml Soln] 3 ml INHALATION RT-Q4H PRN each PRN Reason: Cough Montelukast [Singulair] 10 mg PO HS Ipratropium-Albuterol Nebulize [Duoneb 0.5 mg-3 mg/3 ml Soln] 3 ml INHALATION QID each QUEtiapine [SEROquel] 100 mg PO HS tab Omeprazole [PriLOSEC] 20 mg PO BID HYDROcodone/APAP 5-325MG [[place] 5-325] 1 tab PO Q6HR PRN PRN Reason: Moderate To Severe Pain (4-10) Discharge Medication List Albuterol Sulfate [Albuterol Sulfate Hfa] 2 puff INHALATION RT-Q6H PRN #1 each 10/04/22 [Rx] levETIRAcetam [Keppra] 1,000 mg PO BID 03/20/23 [History] Rivaroxaban [Xarelto] 20 mg PO DAILY 06/21/23 [History] Gabapentin [Neurontin] 300 mg PO BID 04/15/24 [History] Glycopyrrolate/Formoterol Fum [Bevespi Aerosphere Inhaler] 1 puff INHALATION RT- BID 04/15/24 [History] Ipratropium-Albuterol Nebulize [Duoneb 0.5 mg-3 mg/3 ml Soln] 3 ml INHALATION RT-Q4H PRN each 07/08/24 [Rx] Acetaminophen Tab [Tylenol] 1,000 mg PO Q6HR PRN 08/27/24 [History] Metoprolol Succinate [Toprol XL] 100 mg PO DAILY 08/27/24 [History] Montelukast [Singulair] 10 mg PO HS 08/27/24 [History] Ondansetron [Zofran] 4 mg PO Q6H PRN 08/27/24 [History] guaiFENesin [Mucinex] 600 mg PO Q12H 7 Days #14 tab 08/31/24 [Rx] Budesonide [Pulmicort] 1 mg INHALATION RT-BID ml 09/07/24 [Rx] Ipratropium-Albuterol Nebulize [Duoneb 0.5 mg-3 mg/3 ml Soln] 3 ml INHALATION QID each 09/07/24 [Rx] QUEtiapine [SEROquel] 100 mg PO HS tab 09/07/24 [Rx] HYDROcodone/APAP 5-325MG [[place] 5-325] 1 tab PO Q6HR PRN 09/25/24 [History] Omeprazole [PriLOSEC] 20 mg PO BID 09/25/24 [History] Nystatin 100,000 Unit/ml Susp [Mycostatin Oral Susp] 5 ml PO QID #100 ml [Rx] Sulfamethox-Tmp 800-160Mg [Bactrim DS 800-160 mg] 1 each PO BID #14 tab 10/06/24 [Rx] predniSONE 10 mg PO DAILY #15 tab 10/08/24 [Rx] Follow up Appointment(s)/Referral(s): [facility], [NON-STAFF] - As Needed Daksha Steiner MD [Primary Care Provider] - 1-2 days (Office is closed at time of discharge. Please call for follow-up appointment.) Patient Instructions/Handouts: Weakness (DC), Hypoxia (GEN), Pneumonia (DC)
--- NOTE | 2024-10-06 16:30 | P.PN ---
Subjective Progress Note Date: 10/05/24 Principal diagnosis: Reason for follow-up is pneumonia/positive blood culture Patient is a 64-year-old female with a past medical history significant for COPD coronary disease hypertension hyperlipidemia osteoarthritis seizure disorder atrial fibrillation patient has been brought to the hospital for evaluation of increasing shortness of breath did have a CT of the chest concerning for possible right lower lobe postobstructive atelectasis/pneumonia. Patient did have bronchial washing on 10/02/2024 with extraction of mucous plugs and culture On today's evaluation that is 10/05/2024, patient has been afebrile, patient is breathing comfortably and is currently on 3 L nasal oxygen, patient denies having any worsening cough no chest pain, patient denies nausea vomiting or diarrhea and no abdominal pain. Patient white count is 13.84, creatinine 0.48, sputum is growing stenotrophomonas Objective - Vital Signs Vital signs: Vital Signs Temp 97.1 F L 10/05/24 07:20 Pulse 88 10/05/24 11:10 Resp 18 10/05/24 07:20 BP 136/70 10/05/24 07:20 Pulse Ox 98 10/05/24 07:20 FiO2 Intake & Output 10/04/24 10/05/24 10/05/24 18:59 06:59 18:59 Intake Total 680 240 Balance 680 240 Intake: Intake, IV Titration 200 Amount Cefepime 2 gm In Sodium 200 Chloride 0.9% 100 ml @ 25 mls/hr IVPB Q8HR [facility] Rx# :[id number] Oral 480 240 Other: Voiding Method Diaper Diaper Diaper Incontinent # Voids 3 2 # Bowel Movements 0 - Exam GENERAL DESCRIPTION: An elderly female lying in bed in no distress RESPIRATORY SYSTEM: Unlabored breathing , decreased breath sounds at bases HEART: S1 S2 regular rate and rhythm , ABDOMEN: Soft , no tenderness EXTREMITIES: No edema feet - Labs CBC & Chem 7: 10/06/24 08:17 10/06/24 08:17 Labs: Abnormal Lab Results - Last 24 Hours (Table) 10/05/24 Range/Units 07:32 Sodium 132 L (137-145) mmol/L Chloride 96 L (98-107) mmol/L Carbon Dioxide 34 H (22-30) mmol/L BUN 31 H (7-17) mg/dL Creatinine 0.48 L (0.52-1.04) mg/dL Calcium 8.0 L (8.4-10.2) mg/dL Microbiology - Last 24 Hours (Table) 10/02/24 10:00 Gram Stain - Final Bronchoalviolar Lavage - Right Bronchial Washings Culture - Final Stenotrophomonas maltophilia Assessment and Plan (1) Leukocytosis Current Visit: No Status: Acute Code(s): D72.829 - ELEVATED WHITE BLOOD CELL COUNT, UNSPECIFIED SNOMED Code(s): 500283613 (2) Pneumonia Current Visit: No Status: Acute Code(s): J18.9 - PNEUMONIA, UNSPECIFIED ORGANISM SNOMED Code(s): 849658849 (3) Positive blood culture Current Visit: Yes Status: Acute Code(s): R78.81 - BACTEREMIA SNOMED Code(s): 859838059 Plan: 1patient presented to hospital with increasing shortness of breath which is likely multifactorial in this patient possible acute exacerbation with acute bronchitis however there was some abnormality seen on the CT underlying pneumonia not excluded keeping in mind patient has been out of the hospital will need to cover for resistant gram-positive as well as gram-negative pathogen. 2-positive blood culture with gram-positive cocci still awaiting final ID sensitivity more likely contamination 4-MRSA nasal screen negative the patient is status post bronchoscopy washout and culture results currently growing stenotrophomonas 5- p patient restarted on Bactrim DS pending sensitivity and monitor clinical course closely Dictation was produced using [employer] dictation software. please excuse any grammatical, word or spelling errors. Time with Patient: Less than 30
--- NOTE | 2024-10-06 16:31 | P.PN ---
Subjective Progress Note Date: 10/06/24 Principal diagnosis: Reason for follow-up is pneumonia/positive blood culture Patient is a 64-year-old female with a past medical history significant for COPD coronary disease hypertension hyperlipidemia osteoarthritis seizure disorder atrial fibrillation patient has been brought to the hospital for evaluation of increasing shortness of breath did have a CT of the chest concerning for possible right lower lobe postobstructive atelectasis/pneumonia. Patient did have bronchial washing on 10/02/2024 with extraction of mucous plugs and culture On today's evaluation that is 10/06/2024, Patient is afebrile this morning patient denies having any chest pain shortness of breath or any worsening cough, the patient is currently on 3 L nasal cannula oxygen, patient denies any abdominal pain no diarrhea no nausea no vomiting Patient white count is 15,000, creatinine 0.52 sputum culture with stenotrophomonas and [place] Objective - Vital Signs Vital signs: Vital Signs Temp 98 F 10/06/24 14:18 Pulse 90 10/06/24 16:19 Resp 18 10/06/24 14:18 BP 117/61 10/06/24 14:18 Pulse Ox 94 L 10/06/24 14:18 FiO2 Intake & Output 10/05/24 10/06/24 10/06/24 18:59 06:59 18:59 Weight 71.668 kg Other: Voiding Method Diaper Bedside Commode Bedside Commode Incontinent Diaper Diaper Incontinent Incontinent # Voids 2 2 # Bowel Movements 2 - Exam GENERAL DESCRIPTION: An elderly female lying in bed in no distress RESPIRATORY SYSTEM: Unlabored breathing , decreased breath sounds at bases HEART: S1 S2 regular rate and rhythm , ABDOMEN: Soft , no tenderness EXTREMITIES: No edema feet - Labs CBC & Chem 7: 10/06/24 08:17 10/06/24 08:17 Labs: Abnormal Lab Results - Last 24 Hours (Table) 10/06/24 10/06/24 Range/Units 08:17 08:17 WBC 15.0 H (3.8-10.6) k/uL Hgb 11.1 L (11.4-16.0) gm/dL Hct 33.9 L (34.0-46.0) % RDW 15.6 H (11.5-15.5) % Neutrophils # 11.2 H (1.3-7.7) k/uL Sodium 131 L (137-145) mmol/L Chloride 93 L (98-107) mmol/L Carbon Dioxide 34 H (22-30) mmol/L BUN 30 H (7-17) mg/dL Glucose 104 H (74-99) mg/dL Microbiology - Last 24 Hours (Table) 10/02/24 10:00 Fungal Culture - Preliminary Bronchoalviolar Lavage - Right [place] albicans Assessment and Plan (1) Leukocytosis Current Visit: No Status: Acute Code(s): D72.829 - ELEVATED WHITE BLOOD CELL COUNT, UNSPECIFIED SNOMED Code(s): 236106905 (2) Pneumonia Current Visit: No Status: Acute Code(s): J18.9 - PNEUMONIA, UNSPECIFIED ORGANISM SNOMED Code(s): 716097556 (3) Positive blood culture Current Visit: Yes Status: Acute Code(s): R78.81 - BACTEREMIA SNOMED Code(s): 175100008 Plan: 1patient presented to hospital with increasing shortness of breath which is likely multifactorial in this patient possible acute exacerbation with acute bronchitis however there was some abnormality seen on the CT underlying pneumonia not excluded keeping in mind patient has been out of the hospital will need to cover for resistant gram-positive as well as gram-negative pathogen. 2-positive blood culture with gram-positive cocci still awaiting final ID sensitivity more likely contamination 4-MRSA nasal screen negative the patient is status post bronchoscopy washout and culture results currently growing stenotrophomonas as well as [place] 5-stenotrophomonas is sensitive to Bactrim DS we will consider a 7-day course of oral Bactrim DS on discharge discussed with the admitting team Dictation was produced using [employer] dictation software. please excuse any grammatical, word or spelling errors. Time with Patient: Less than 30
[2024-10-07] MEDS: ZINC OXIDE PASTE (Z-GUARD) 1 APPLIC TOPICAL PRN (06:02)
--- NOTE | 2024-10-07 09:56 | P.PN ---
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 Patient presents to ER with complaints of worsening shortness of breath for the past 2 days. She was also complaining of sputum with greenish sputum production. No complaints of chest pain. Denied any fever or chills. No nausea vomiting abdominal pain or diarrhea. Chest x-ray showed bibasilar airspace opacities related to atypical pneumonia. EKG showed sinus tachycardia with heart rate 104 and QTc 383. Laboratory data showed WBC 10.6 hemoglobin 10.3 and platelets 447 sodium 134 potassium 4.5 chloride 89 bicarb is 33 9 BUN 10 and creatinine 0.48 and blood sugar 151. Troponin x 1 negative. 09/26/2024 Patient is lying in the bed. Awake alert and oriented. Still complains of shortness of breath. Currently requiring 3 L oxygen via nasal cannula. Otherwise patient states that she had episode of coughing blood, bright red about a teaspoonful x 1 today afternoon. No further episodes of bleeding. No complaints of chest pain. Denies any fever or chills. Patient is being continued on IV Solu-Medrol, DuoNebs, Pulmicort and Perforomist. Xarelto dose will be held today. Follow-up hemoglobin level will be ordered. 09/27/2024 Patient is lying in the bed. Awake alert and oriented. No complaints of chest pain. Breathing is slightly better compared to yesterday. Less bronchospastic. Otherwise patient has been afebrile.. No further episodes of hemoptysis. Patient started on broad-spectrum antibiotics with vancomycin and cefepime as per pulmonary recommendations blood cultures negative so far.No nausea vomiting abdominal pain or diarrhea. Lab data showed WBC 16.4 hemoglobin 9.8 and platelets 466 sodium 137 potassium 4.4, chloride 94, bicarb 35.8 BUN 16.9 and creatinine 0.5 and blood sugar 94 09/28 Patient lying in bed does not look in distress However patient states she still have breathing difficulty. She denies chest pain, she denies coughing or phlegm production. She is currently on 3 L of oxygen, she states at home she uses 2.5 L She is complaining from lower abdominal pain with no significant tenderness, no specific GI or symptoms like no dysuria or change in frequency or diarrhea. She has good appetite with no nausea vomiting This pain looks mild and present since admission. On exam she has decreased air entry on both sides no significant wheezing or crepitation 09/30 Patient states she still complaining shortness of breath. However on examinatio n no significant wheezing or crepitation. No tachypnea was noted as well Patient denies any depression or feeling down I advised the patient to get out of bed to chair today and she agrees. She remains on broad-spectrum antibiotics with IV vancomycin and cefepime and high-dose Solu-Medrol 60 mg as well as Xarelto. On examination patient does not have leg edema or signs of fluid overloa 10/01 Patient is still with respiratory difficulty. Also she feels very weak No much improvement over the last 2 to 3 days Pulmonary team are planning for bronchoscopy and bronchoalveolar lavage and pulmonary toilet Other than that she remains on IV antibiotics with IV vancomycin and cefepime as per ID team and IV Solu-Medrol and Xarelt 10/02 Patient with persistent tachypnea and dyspnea, she still feels generally weak She is saturating 97% on 3 L oxygen via nasal cannula WBC is 10.8, hemoglobin 10.7, platelet count normal. BMP is unremarkable. Patient remains on IV vancomycin and cefepime per ID team and pulmonary team with the plan for bronchoscopy and bronchial toilet possible today Patient today complaining from epigastric pain and tenderness about 7/10 started yesterday stating associated with loose bowel movement about 3-4 per yesterday. We will check for C. difficile and ask for surgery team consult and check labs in the morning Patient s/p bronchoscopy today pending results Procedure note was reviewed by me. Results showing extensive mucous on both sides more on the right side. Bronchoalveolar lavage was done and samples were sent for Gram stain, culture and cytology as well as pneumocystis and Legionella which are pending now 10/03patient with history of chronic atrial fibrillation on anticoagulation, coronary artery disease, COPD, hypertension, hyperlipidemia, seizure disorder, Crohn's disease, pulmonary nodules, CVA, active smoking, history of marijuana and cocaine use who presented to hospital with shortness of breath going on for 2 to 3 days, chest x-ray showed bibasilar infiltrate suggestive of pneumonia,, had 1 episode of hemoptysis secondary to severe coughing. Pulmonary following, currently on bronchodilator with DuoNebs, inhaled corticosteroids, on Solu- Medrol. Blood culture came back positive for GPC in clusters, ID following. LFTs normal. 10/04--patient was seen and examined today. No issues overnight. Vital stable, saturating 97% on 2 L. Complains of shortness breath and cough. WBCs 14.2, hemoglobin 9.8, platelet 311. BMP unremarkable. LFTs unremarkable. ID following, currently on cefepime and Bactrim. Pulmonary and general surgery following. 10/05--- patient was seen and examined today. Patient complains of fatigue, patient complained of generalized bodyaches, declined PT/OT evaluation earlier. Remains on cefepime and Bactrim per infectious disease. Vital stable, WBCs 13.8, hemoglobin 9.9, platelet 315. BUN and creatinine unremarkable, sodium 132. BAL cytology pending. 10/06--patient was seen and examined today. No issues overnight. Vital stable. Discussed with infectious disease, okay to discharge on Bactrim. Patient declined subacute rehab. Assessment and plan: Acute hypoxic respiratory failure: Status post bronchoscopy Bilateral pneumonia Acute COPD exacerbation Positive blood culture: GPC in clusters Acute hemoptysis x 1 episode. 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 Chronic pain Crohn's disease Seizure disorder Paroxysmal atrial fibrillation on anticoagulation with Xarelto Hypertension Hyperlipidemia Anxiety/depression/bipolar disorder Ongoing nicotine addiction History of alcohol abuse, cocaine, marijuana use Plan: inhalers/bronchodilator protocol, pulmonary following. Finished Solu-Medrol. Follow-up BAL lavage sample for cytology, Legionella and pneumocystis as well as for culture Continue with antibiotics per pulmonary team, currently on IV cefepime and Bactrim. Vancomycin discontinued. ID team consult, blood culture showed GPC in clusters--likely contaminant, awaiting sensitivities. Continued home dose of Xarelto Consult surgery team for abdominal pain--ultrasound abdomen done, suspect chronic cholecystitis, no surgical intervention indicated. Labs and medication were reviewed.. Continue same treatment. Continue with symptomatic treatment. Resume home medication. Monitor labs and vitals. DVT and GI prophylaxis. Further recommendations as per clinical course of the patient DVT prophylaxis: Xarelto PT/OT: Pending Prognosis is guarded Monitor vital signs and labs Labs and medication were reviewed. Continue same treatment. Further recommendations as per clinical course of the patient PHYSICAL EXAMINATION: GENERAL: The patient is A&O x3, NAD HEENT: EOMI, Sclerae anicteric, Moist Mucous membranes Neck: Supple, Non tender, No JVD PULMONARY: Equal breath souds B/L, No wheezing, No crackles. CARDIOVASCULAR: S1, S2 present. No murmurs, rubs, or gallops. ABDOMEN: Soft, nontender, nondistended, normoactive bowel sounds. No guarding or rebound tenderness. MUSCULOSKELETAL: No edema, No cyanosis. No clubbing. Normal ROM. Intact peripheral pulses. NEUROLOGICAL: CN 2-12 grossly intact. No FND Skin: No Rash REVIEW OF SYSTEMS: CONSTITUTIONAL: No fever or chills. CARDIOVASCULAR: No chest pain, palpitations or syncope. PULMONARY: No shortness of breath, no cough, sore throat. GASTROINTESTINAL: No nausea, vomiting, diarrhea, abdominal pain. : No Dysuria, urgency, frequency. Extremities: No edema. NEUROLOGICAL: No headaches, no weakness, or numbness Dictation was produced using [employer] dictation software. please excuse any grammatical, word or spelling errors. Objective - Vital Signs Vital signs: Vital Signs Temp 98.2 F 10/07/24 06:58 Pulse 59 L 10/07/24 06:58 Resp 16 10/07/24 06:58 BP 100/65 10/07/24 06:58 Pulse Ox 100 10/07/24 06:58 FiO2 Intake & Output 10/06/24 10/07/24 10/07/24 18:59 06:59 18:59 Weight 71.668 kg Other: Voiding Method Bedside Commode Diaper Diaper Diaper Incontinent Incontinent # Voids 6 2 # Bowel Movements 2 1 - Labs CBC & Chem 7: 10/06/24 08:17 10/06/24 08:17
--- NOTE | 2024-10-07 15:10 | P.PN ---
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 Patient presents to ER with complaints of worsening shortness of breath for the past 2 days. She was also complaining of sputum with greenish sputum production. No complaints of chest pain. Denied any fever or chills. No nausea vomiting abdominal pain or diarrhea. Chest x-ray showed bibasilar airspace opacities related to atypical pneumonia. EKG showed sinus tachycardia with heart rate 104 and QTc 383. Laboratory data showed WBC 10.6 hemoglobin 10.3 and platelets 447 sodium 134 potassium 4.5 chloride 89 bicarb is 33 9 BUN 10 and creatinine 0.48 and blood sugar 151. Troponin x 1 negative. 09/26/2024 Patient is lying in the bed. Awake alert and oriented. Still complains of shortness of breath. Currently requiring 3 L oxygen via nasal cannula. Otherwise patient states that she had episode of coughing blood, bright red about a teaspoonful x 1 today afternoon. No further episodes of bleeding. No complaints of chest pain. Denies any fever or chills. Patient is being continued on IV Solu-Medrol, DuoNebs, Pulmicort and Perforomist. Xarelto dose will be held today. Follow-up hemoglobin level will be ordered. 09/27/2024 Patient is lying in the bed. Awake alert and oriented. No complaints of chest pain. Breathing is slightly better compared to yesterday. Less bronchospastic. Otherwise patient has been afebrile.. No further episodes of hemoptysis. Patient started on broad-spectrum antibiotics with vancomycin and cefepime as per pulmonary recommendations blood cultures negative so far.No nausea vomiting abdominal pain or diarrhea. Lab data showed WBC 16.4 hemoglobin 9.8 and platelets 466 sodium 137 potassium 4.4, chloride 94, bicarb 35.8 BUN 16.9 and creatinine 0.5 and blood sugar 94 09/28 Patient lying in bed does not look in distress However patient states she still have breathing difficulty. She denies chest pain, she denies coughing or phlegm production. She is currently on 3 L of oxygen, she states at home she uses 2.5 L She is complaining from lower abdominal pain with no significant tenderness, no specific GI or symptoms like no dysuria or change in frequency or diarrhea. She has good appetite with no nausea vomiting This pain looks mild and present since admission. On exam she has decreased air entry on both sides no significant wheezing or crepitation 09/30 Patient states she still complaining shortness of breath. However on examinatio n no significant wheezing or crepitation. No tachypnea was noted as well Patient denies any depression or feeling down I advised the patient to get out of bed to chair today and she agrees. She remains on broad-spectrum antibiotics with IV vancomycin and cefepime and high-dose Solu-Medrol 60 mg as well as Xarelto. On examination patient does not have leg edema or signs of fluid overloa 10/01 Patient is still with respiratory difficulty. Also she feels very weak No much improvement over the last 2 to 3 days Pulmonary team are planning for bronchoscopy and bronchoalveolar lavage and pulmonary toilet Other than that she remains on IV antibiotics with IV vancomycin and cefepime as per ID team and IV Solu-Medrol and Xarelt 10/02 Patient with persistent tachypnea and dyspnea, she still feels generally weak She is saturating 97% on 3 L oxygen via nasal cannula WBC is 10.8, hemoglobin 10.7, platelet count normal. BMP is unremarkable. Patient remains on IV vancomycin and cefepime per ID team and pulmonary team with the plan for bronchoscopy and bronchial toilet possible today Patient today complaining from epigastric pain and tenderness about 7/10 started yesterday stating associated with loose bowel movement about 3-4 per yesterday. We will check for C. difficile and ask for surgery team consult and check labs in the morning Patient s/p bronchoscopy today pending results Procedure note was reviewed by me. Results showing extensive mucous on both sides more on the right side. Bronchoalveolar lavage was done and samples were sent for Gram stain, culture and cytology as well as pneumocystis and Legionella which are pending now 10/03patient with history of chronic atrial fibrillation on anticoagulation, coronary artery disease, COPD, hypertension, hyperlipidemia, seizure disorder, Crohn's disease, pulmonary nodules, CVA, active smoking, history of marijuana and cocaine use who presented to hospital with shortness of breath going on for 2 to 3 days, chest x-ray showed bibasilar infiltrate suggestive of pneumonia,, had 1 episode of hemoptysis secondary to severe coughing. Pulmonary following, currently on bronchodilator with DuoNebs, inhaled corticosteroids, on Solu- Medrol. Blood culture came back positive for GPC in clusters, ID following. LFTs normal. 10/04--patient was seen and examined today. No issues overnight. Vital stable, saturating 97% on 2 L. Complains of shortness breath and cough. WBCs 14.2, hemoglobin 9.8, platelet 311. BMP unremarkable. LFTs unremarkable. ID following, currently on cefepime and Bactrim. Pulmonary and general surgery following. 10/05--- patient was seen and examined today. Patient complains of fatigue, patient complained of generalized bodyaches, declined PT/OT evaluation earlier. Remains on cefepime and Bactrim per infectious disease. Vital stable, WBCs 13.8, hemoglobin 9.9, platelet 315. BUN and creatinine unremarkable, sodium 132. BAL cytology pending. 10/06--patient was seen and examined today. No issues overnight. Vital stable. Discussed with infectious disease, okay to discharge on Bactrim. Patient declined subacute rehab. 10/07/24--patient was seen and examined today. No issues overnight. Vital stable. Patient declined subacute rehab. On oral Bactrim. Assessment and plan: Acute hypoxic respiratory failure: Status post bronchoscopy Bilateral pneumonia Acute COPD exacerbation Positive blood culture: GPC in clusters Acute hemoptysis x 1 episode. 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 Chronic pain Crohn's disease Seizure disorder Paroxysmal atrial fibrillation on anticoagulation with Xarelto Hypertension Hyperlipidemia Anxiety/depression/bipolar disorder Ongoing nicotine addiction History of alcohol abuse, cocaine, marijuana use Plan: inhalers/bronchodilator protocol, pulmonary following. Finished Solu-Medrol. Follow-up BAL lavage sample for cytology, Legionella and pneumocystis as well as for culture Continue with antibiotics per pulmonary team, was initially on cefepime, vancomycin and Bactrim. ID team consult, blood culture showed GPC in clusters--likely contaminant, awaiting sensitivities. Continue p.o. Bactrim. Continued home dose of Xarelto Consult surgery team for abdominal pain--ultrasound abdomen done, suspect chronic cholecystitis, no surgical intervention indicated. Labs and medication were reviewed.. Continue same treatment. Continue with symptomatic treatment. Resume home medication. Monitor labs and vitals. DVT and GI prophylaxis. Further recommendations as per clinical course of the patient DVT prophylaxis: Xarelto PT/OT: Pending Prognosis is guarded Monitor vital signs and labs Labs and medication were reviewed. Continue same treatment. Further recommendations as per clinical course of the patient PHYSICAL EXAMINATION: GENERAL: The patient is A&O x3, NAD HEENT: EOMI, Sclerae anicteric, Moist Mucous membranes Neck: Supple, Non tender, No JVD PULMONARY: Equal breath souds B/L, No wheezing, No crackles. CARDIOVASCULAR: S1, S2 present. No murmurs, rubs, or gallops. ABDOMEN: Soft, nontender, nondistended, normoactive bowel sounds. No guarding or rebound tenderness. MUSCULOSKELETAL: No edema, No cyanosis. No clubbing. Normal ROM. Intact peripheral pulses. NEUROLOGICAL: CN 2-12 grossly intact. No FND Skin: No Rash REVIEW OF SYSTEMS: CONSTITUTIONAL: No fever or chills. CARDIOVASCULAR: No chest pain, palpitations or syncope. PULMONARY: No shortness of breath, no cough, sore throat. GASTROINTESTINAL: No nausea, vomiting, diarrhea, abdominal pain. : No Dysuria, urgency, frequency. Extremities: No edema. NEUROLOGICAL: No headaches, no weakness, or numbness Dictation was produced using [employer] dictation software. please excuse any grammatical, word or spelling errors. Objective - Vital Signs Vital signs: Vital Signs Temp 98.2 F 10/07/24 06:58 Pulse 70 10/07/24 11:41 Resp 16 10/07/24 06:58 BP 100/65 10/07/24 06:58 Pulse Ox 100 10/07/24 06:58 FiO2 Intake & Output 10/06/24 10/07/24 10/07/24 18:59 06:59 18:59 Weight 71.668 kg Other: Voiding Method Bedside Commode Diaper Diaper Diaper Incontinent Incontinent # Voids 6 2 1 # Bowel Movements 2 1 1 - Labs CBC & Chem 7: 10/06/24 08:17 10/06/24 08:17
--- NOTE | 2024-10-07 21:57 | P.PN ---
Subjective Progress Note Date: 10/07/24 Principal diagnosis: Reason for follow-up is pneumonia/positive blood culture Patient is a 64-year-old female with a past medical history significant for COPD coronary disease hypertension hyperlipidemia osteoarthritis seizure disorder atrial fibrillation patient has been brought to the hospital for evaluation of increasing shortness of breath did have a CT of the chest concerning for possible right lower lobe postobstructive atelectasis/pneumonia. Patient did have bronchial washing on 10/02/2024 with extraction of mucous plugs and culture On today's evaluation that is 10/07/2024,the patient denies any fever or any chills, patient is breathing slightly comfortably on 3 L, oxygen patient has any chest pain or any worsening cough no nausea vomiting abdominal pain or diarrhea. Patient did not have any lab draw today Objective - Vital Signs Vital signs: Vital Signs Temp 98.2 F 10/07/24 06:58 Pulse 70 10/07/24 11:41 Resp 16 10/07/24 06:58 BP 100/65 10/07/24 06:58 Pulse Ox 100 10/07/24 06:58 FiO2 Intake & Output 10/06/24 10/07/24 10/07/24 18:59 06:59 18:59 Weight 71.668 kg Other: Voiding Method Bedside Commode Diaper Diaper Diaper Incontinent Incontinent # Voids 6 2 1 # Bowel Movements 2 1 1 - Exam GENERAL DESCRIPTION: An elderly female lying in bed in no distress RESPIRATORY SYSTEM: Unlabored breathing , decreased breath sounds at bases HEART: S1 S2 regular rate and rhythm , ABDOMEN: Soft , no tenderness EXTREMITIES: No edema feet - Labs CBC & Chem 7: 10/06/24 08:17 10/06/24 08:17 Assessment and Plan (1) Leukocytosis Current Visit: No Status: Acute Code(s): D72.829 - ELEVATED WHITE BLOOD CELL COUNT, UNSPECIFIED SNOMED Code(s): 991557282 (2) Pneumonia Current Visit: No Status: Acute Code(s): J18.9 - PNEUMONIA, UNSPECIFIED ORGANISM SNOMED Code(s): 132349698 (3) Positive blood culture Current Visit: Yes Status: Acute Code(s): R78.81 - BACTEREMIA SNOMED Code( s): 753860080 Plan: 1patient presented to hospital with increasing shortness of breath which is likely multifactorial in this patient possible acute exacerbation with acute bronchitis however there was some abnormality seen on the CT underlying pneumonia not excluded keeping in mind patient has been out of the hospital will need to cover for resistant gram-positive as well as gram-negative pathogen. 2-positive blood culture with gram-positive cocci still awaiting final ID sensitivity more likely contamination 4-MRSA nasal screen negative the patient is status post bronchoscopy washout and culture results currently growing stenotrophomonas as well as [place] 5-patient is currently covered with the Bactrim DS for stenotrophomonas cefepime has been discontinued after discussion with admitting physician add nystatin swish and swallow for possible thrush Dictation was produced using [employer] dictation software. please excuse any grammatical, word or spelling errors. Time with Patient: Less than 30
[2024-10-07] MEDS: NYSTATIN 100,000 UNIT/ML SUSP 500,000 UNIT/5 ML CUP PO SCH (22:10)
[2024-10-08 08:36] VITALS: BP 113/63; RESP 19; TEMP 98.7
[2024-10-08 11:53] VITALS: PULSE 86
--- NOTE | 2024-10-08 14:28 | P.PN ---
Subjective Progress Note Date: 10/08/24 Principal diagnosis: Reason for follow-up is pneumonia/positive blood culture Patient is a 64-year-old female with a past medical history significant for COPD coronary disease hypertension hyperlipidemia osteoarthritis seizure disorder atrial fibrillation patient has been brought to the hospital for evaluation of increasing shortness of breath did have a CT of the chest concerning for possible right lower lobe postobstructive atelectasis/pneumonia. Patient did have bronchial washing on 10/02/2024 with extraction of mucous plugs and culture On today's evaluation that is 10/08/2024,the patient remains to be afebrile, patient is on 3 L nasal cannula supplemental oxygen and denies any shortness of breath no chest pain or any worsening cough.Patient denies having any nausea or vomiting, no abdominal pain and no diarrhea has been reported. No new lab has been obtained today Objective - Vital Signs Vital signs: Vital Signs Temp 98.7 F 10/08/24 07:35 Pulse 86 10/08/24 11:53 Resp 19 10/08/24 10:06 BP 113/63 10/08/24 07:35 Pulse Ox 98 10/08/24 09:01 FiO2 Intake & Output 10/07/24 10/08/24 10/08/24 18:59 06:59 18:59 Intake Total 845 540 300 Balance 845 540 300 Intake: Oral 845 540 300 Other: Voiding Method Diaper Diaper Diaper # Voids 1 3 # Bowel Movements 1 - Exam GENERAL DESCRIPTION: An elderly female lying in bed in no distress RESPIRATORY SYSTEM: Unlabored breathing , decreased breath sounds at bases HEART: S1 S2 regular rate and rhythm , ABDOMEN: Soft , no tenderness EXTREMITIES: No edema feet - Labs CBC & Chem 7: 10/06/24 08:17 10/06/24 08:17 Assessment and Plan (1) Leukocytosis Status: Acute Code(s): D72.829 - ELEVATED WHITE BLOOD CELL COUNT, UNSPECIFIED SNOMED Code(s): 582031609 (2) Pneumonia Status: Acute Code(s): J18.9 - PNEUMONIA, UNSPECIFIED ORGANISM SNOMED Code(s): 465093564 (3) Positive blood culture Status: Acute Code(s): R78.81 - BACTEREMIA SNOMED Code(s): 799598812 Plan: 1patient presented to hospital with increasing shortness of breath which is likely multifactorial in this patient possible acute exacerbation with acute bronchitis however there was some abnormality seen on the CT underlying pneumonia not excluded keeping in mind patient has been out of the hospital will need to cover for resistant gram-positive as well as gram-negative pathogen. 2-positive blood culture with gram-positive cocci still awaiting final ID sensitivity more likely contamination 4-MRSA nasal screen negative the patient is status post bronchoscopy washout and culture results currently growing stenotrophomonas as well as [place] 5-patient has shown clinical provide she will finish therapy with Bactrim DS x 7 days for stenotrophomonas and also advises 7-day course nystatin swish and sw allow for possible thrush prescription sent to the pharmacy Dictation was produced using [employer] dictation software. please excuse any grammatical, word or spelling errors. Time with Patient: Less than 30
[2024-10-09] MEDS ORDERED: predniSONE 10 MG TAB PO SCH (09:00)
--- NOTE | 2024-10-12 20:12 | CDI ---
Documentation Clarification Form Date: 10/12/2024 07:58:40 PM From: Tamera Spangler Phone: Admit Date: 09/25/2024 01:13:00 PM Patient Name: Fabiola Giraldo Visit Number: [id number] Discharge Date: 10/08/2024 01:08:00 PM ATTENTION: The Clinical Documentation Specialists (CDI) and [facility] Coding Staff appreciate your assistance in clarifying documentation. Please respond to the clarification below the line at the bottom and electronically sign. The CDI & [facility] Coding staff will review the response and follow-up if needed. Please note: Queries are made part of the Legal Health Record. If you have any questions, please contact the author of this message via ITS. Doctor/Provider: Spencer Manning Bacterial Pneumonia is documented throughout the Notes. Additional clarification regarding the type of pneumonia is requested. History/Risk Factors: 64yo F, AHRF, CHUN PNA, AECOPD, mucous plugs, acutehemoptysis, hypovolemic,hyponatremia, HX CVA Rt weakness, cholelithiasis w chronic cholecystitis, chronic pain, Crohn's disease, seizure disorder, PAF, HTN, HLD, anxiety/depression/bipolar disorder, smoker, Hxalcohol abuse, cocaine,marijuana use Clinical Indicators: WBC/Left shift: [id number] Creatinine: 0.52 Sputum culture: stenotrophomonasand [place] Treatment: Patient did have bronchial[place] 10/02/2024 withextractionofmucous plugs and culture. 10/06/2024, Pt is afebrile this morning patient denies having anychest painshortness of breathor any worseningcough, the patient is currently on 3 L nasal cannula oxygen, patient denies any abdominal painnodiarrheanonauseanovomiting. ID consulted- Continue with antibiotics per pulmonary team, currently on IV cefepime and Bactrim. Vancomycin discontinued. ID team consult, blood culture showedGPCin clusters--likely contaminant. Continue on the Bactrim for 7 days at discharge. Please clarify the type of pneumonia, if known: [ ] Bacterial Pneumonia, specify causal organism (if known) [ x] Stenotrophomonas Pneumonia [ ] [place] [ ] Other, please specify [ ] Unable to determine (Template Last Revised: December 2020) MTDD
== END 2024-10-08 13:08 | disposition home health service (06) | DRG 177 ==
LOC: EC 07:30 → 4SSUR 13:13
PROVIDERS: ADMIT Hospitalist; ATTEND Hospitalist
PROC: 0B968ZZ Drainage of Right Lower Lobe Bronchus, Via Natural or Artificial Opening Endoscopic (ICD-10-PCS; 2024-10-02)
PROC: 0BCB8ZZ Extirpation of Matter from Left Lower Lobe Bronchus, Via Natural or Artificial Opening Endoscopic (ICD-10-PCS; 2024-10-02)
PROC: 0BC68ZZ Extirpation of Matter from Right Lower Lobe Bronchus, Via Natural or Artificial Opening Endoscopic (ICD-10-PCS; 2024-10-02)
PROC: 0B9B8ZZ Drainage of Left Lower Lobe Bronchus, Via Natural or Artificial Opening Endoscopic (ICD-10-PCS; principal; 2024-10-02 08:10)
DX: J15.69 Pneumonia due to other Gram-negative bacteria (principal); B37.1 Pulmonary candidiasis; J96.01 Acute respiratory failure with hypoxia; R78.81 Bacteremia; K80.10 Calculus of gallbladder with chronic cholecystitis without obstruction; R04.2 Hemoptysis; E87.1 Hypo-osmolality and hyponatremia; J44.1 Chronic obstructive pulmonary disease with (acute) exacerbation; I69.351 Hemiplegia and hemiparesis following cerebral infarction affecting right dominant side; J44.0 Chronic obstructive pulmonary disease with (acute) lower respiratory infection; K50.90 Crohn's disease, unspecified, without complications; I48.20 Chronic atrial fibrillation, unspecified; G40.909 Epilepsy, unspecified, not intractable, without status epilepticus; F31.9 Bipolar disorder, unspecified; I48.0 Paroxysmal atrial fibrillation; I11.9 Hypertensive heart disease without heart failure; F10.10 Alcohol abuse, uncomplicated; E86.1 Hypovolemia; F17.210 Nicotine dependence, cigarettes, uncomplicated; I25.10 Atherosclerotic heart disease of native coronary artery without angina pectoris; E78.5 Hyperlipidemia, unspecified; G89.29 Other chronic pain; J98.4 Other disorders of lung; F41.1 Generalized anxiety disorder; Z79.01 Long term (current) use of anticoagulants; Y95 Nosocomial condition; Z79.51 Long term (current) use of inhaled steroids; Z79.899 Other long term (current) drug therapy; Z91.410 Personal history of adult physical and sexual abuse
CPT/HCPCS: 31624; 36415; 71046; 71250; 76705; 80048; 80053; 80076; 80202; 82565; 83605; 83690; 83735; 84145; 84484; 85025; 85610; 85730; 86140; 87040; 87070; 87077; 87102; 87116; 87186; 87205; 87206; 87496; 87498; 87502; 87529; 87634; 87635; 87798; 88108; 88305; 93005; 94640; 94760; 96361; 96374; 96375; 96376; 99285

== ENCOUNTER 2024-10-08 16:08 | Observation (INO) | payer MEDICARE, OTHER ==
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
[2024-10-08] MEDS ORDERED: NALOXONE 0.4 MG/ML 1 ML VIAL IV PRN (17:46)
[2024-10-08] MEDS: HYDROcodone/APAP 5-325MG 1 EACH TAB PO PRN (18:08)
[2024-10-08] MEDS: SODIUM CHLORIDE 0.9% 1,000 ML IV SCH (18:11)
[2024-10-08 18:39] LABS: Basophils % (A) 0 %; Eosinophils # (A) 0.2 k/uL (0-0.7); Eosinophils % (A) 1 %; HCT 33.2 % (34.0-46.0); Lymphocytes % (A) 11 %; MCH 27.6 pg (25.0-35.0); MCHC 33.1 g/dL (31.0-37.0); MCV 83.2 fL (80.0-100.0); Mean Platelet Volume 7.8; Monocytes # (A) 1.1 k/uL (0-1.0); Monocytes % (A) 6 %; Neutrophils # (A) 15.4 k/uL (1.3-7.7); Neutrophils % (A) 82 %; Platelet Count 382 k/uL (150-450); RBC 3.99 m/uL (3.80-5.40); RDW 15.8 % (11.5-15.5); WBC 18.8 k/uL (3.8-10.6)
[2024-10-08 18:52] LABS: African American GFR (CKD) >90 (>60 ml/min/1.73 sqM); Anion Gap 5 mmol/L; Blood Urea Nitrogen 42 mg/dL (7-17); Carbon Dioxide 32 mmol/L (22-30); Chloride 92 mmol/L (98-107); Glucose 96 mg/dL (74-99); Non-African American GFR(CKD) >90 (>60 ml/min/1.73 sqM); Sodium 129 mmol/L (137-145)
[2024-10-08 18:56] LABS: Potassium 5.4 mmol/L (3.5-5.1)
[2024-10-09] MEDS: QUEtiapine 100 MG TAB PO SCH (01:54)
[2024-10-09] MEDS: levETIRAcetam 500 MG TAB PO SCH (09:10)
[2024-10-09] MEDS: GABAPENTIN 300 MG CAP PO SCH (09:10)
[2024-10-09] MEDS: RIVAROXABAN 10 MG TAB PO SCH (09:10)
[2024-10-09] MEDS: METOPROLOL SUCCINATE (ER) 100 MG TAB.ER.24H PO SCH (09:11)
[2024-10-09] MEDS ORDERED: ALBUTEROL HFA INHALER INHALATION PRN (09:37)
[2024-10-09] MEDS ORDERED: HYDROcodone/APAP 5-325MG 1 EACH TAB PO PRN (09:37)
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
[2024-10-09] MEDS: guaiFENesin 600 MG TABLET.ER PO SCH (10:02)
[2024-10-09] MEDS: ZINC OXIDE PASTE (Z-GUARD) 1 APPLIC TOPICAL PRN (10:03)
[2024-10-09] MEDS: PANTOPRAZOLE 40 MG TABLET PO SCH (10:03)
[2024-10-09] MEDS: IPRATROPIUM-ALBUTEROL 3 ML NEB INHALATION PRN (10:08)
[2024-10-09 10:28] LABS: HCT 37.8 % (34.0-46.0); HGB 12.1 gm/dL (11.4-16.0); MCH 27.6 pg (25.0-35.0); MCV 86.1 fL (80.0-100.0); Mean Platelet Volume 6.3; Platelet Count 331 k/uL (150-450); RBC 4.39 m/uL (3.80-5.40); RDW 15.5 % (11.5-15.5); WBC 16.4 k/uL (3.8-10.6)
[2024-10-09 10:44] LABS: African American GFR (CKD) >90 (>60 ml/min/1.73 sqM); Anion Gap 5 mmol/L; Blood Urea Nitrogen 27 mg/dL (7-17); Carbon Dioxide 34 mmol/L (22-30); Chloride 93 mmol/L (98-107); Glucose 119 mg/dL (74-99); Non-African American GFR(CKD) >90 (>60 ml/min/1.73 sqM); Sodium 132 mmol/L (137-145)
[2024-10-09 10:46] LABS: Potassium 4.4 mmol/L (3.5-5.1)
[2024-10-09] MEDS: NYSTATIN 100,000 UNIT/ML SUSP 500,000 UNIT/5 ML CUP PO SCH (12:24)
[2024-10-09] MEDS: IPRATROPIUM 0.5 MG/2.5 ML NEBU INHALATION SCH (12:31)
--- NOTE | 2024-10-09 14:19 | P.DS ---
Providers Date of admission: 10/08/24 17:47 Expected date of discharge: 10/09/24 Attending physician: Buddy Walker Primary care physician: Daksha [facility] Course: Discharge diagnoses: Generalized weakness: Failure to thrive: Recurrent hospitalization: Recent hospitalization for acute hypoxic respiratory failure secondary to bilateral pneumonia, acute COPD, hemoptysis x1, status post bronchoscopy Cholelithiasis: was Evaluated by general surgery last week. Surgical intervention Paroxysmal atrial fibrillation on Xarelto COPD: On 3 to oxygen at baseline History of CVA with residual right-sided weakness Hyponatremia Hyperkalemia: Chronic pain Chronic disease Seizure disorder Hypertension Hyperlipidemia Anxiety/depression/bipolar disorder Ongoing nicotine addiction History of alcohol use, cocaine use marijuana use Plan: Patient was admitted for acute hypoxic respiratory failure secondary to bilateral pneumonia and acute COPD exacerbation, patient underwent bronchoscopy at that time, had 1 episode of acute hemoptysis which was later resolved, had mild hyponatremia, urine drug screen was positive for benzodiazepine, was also evaluated by general surgery for cholelithiasis and was suspected to have coronary chronic cholecystitis no surgical intervention was recommended ultrasound gallbladder was unremarkable. Patient was evaluated by pulmonary and ID during last hospitalization. Patient was discharged home yesterday on Bactrim to complete 1 week per infectious disease Continue Bactrim for 5 more days Resume home meds Continue inhalers Continue Keppra Continue Xarelto Hospital course: History of present illness: This is a 64-year-old female with past medical history significant for CVA with residual right-sided weakness and spasm, chronic pain, Crohn's disease, seizure disorder, COPD on 3 L oxygen, paroxysmal A-fib on anticoagulation with Xarelto, hypertension, hyperlipidemia, depression, bipolar disorder, current smoker, history of alcohol use cocaine and marijuana use who was recently admitted to [facility] and was discharged yesterday. Patient was admitted for acute hypoxic respiratory failure secondary to bilateral pneumonia and acute COPD exacerbation, patient underwent bronchoscopy at that time, had 1 episode of acute hemoptysis which was later resolved, had mild hyponatremia, urine drug screen was positive for benzodiazepine, was also evaluated by general surgery for cholelithiasis and was suspected to have coronary chronic cholecystitis no surgical intervention was recommended ultrasound gallbladder was unremarkable. Patient was evaluated by pulmonary and ID during last hospitalization. Patient was discharged home yesterday on Bactrim to complete 1 week per infectious disease Patient was was found to be significantly weak but patient declined going to subacute rehab, and decided to go home. Patient now presented with unable to take care of herself. Patient is afebrile, heart rate 91, respiratory rate 16, blood pressure 107/62, saturating 98% on 2 L which is patient baseline. WBCs 18.8, hemoglobin 11.0, platelet 382. ANC 15.4. BMP showed sodium 129, potassium 5.4, BUN 42, creatinine 0.47 GFR more than 90. Patient was ordered hospital for further medical management generalized weakness. PT OT and case management was consulted. Patient home medications are continued. Patient discharged to subacute rehab. Please refer to med rec and assessment plan for further details. Follow-up with PCP in 1 week Follow-up with infectious disease as outpatient. PHYSICAL EXAMINATION: GENERAL: The patient is A&O x3, NAD HEENT: EOMI, Sclerae anicteric, Moist Mucous membranes Neck: Supple, Non tender, No JVD PULMONARY: Equal breath souds B/L, No wheezing, No crackles. CARDIOVASCULAR: S1, S2 present. No murmurs, rubs, or gallops. ABDOMEN: Soft, nontender, nondistended, normoactive bowel sounds. No guarding or rebound tenderness. MUSCULOSKELETAL: No edema, No cyanosis. No clubbing. Normal ROM. Intact peripheral pulses. NEUROLOGICAL: CN 2-12 grossly intact. No FND SKIN: No rashes. Dictation was produced using [employer] dictation software. please excuse any grammatical, word or spelling errors. Patient Condition at Discharge: Fair Plan - Discharge Summary Discharge Rx Participant: No New Discharge Prescriptions: Continue levETIRAcetam [Keppra] 1,000 mg PO BID Rivaroxaban [Xarelto] 20 mg PO DAILY Metoprolol Succinate [Toprol XL] 100 mg PO DAILY Acetaminophen Tab [Tylenol] 1,000 mg PO Q6HR PRN PRN Reason: Pain Or Fever > 100.5 Ondansetron [Zofran] 4 mg PO Q6H PRN PRN Reason: Nausea or Vomiting guaiFENesin [Mucinex] 600 mg PO Q12H 7 Days #14 tab Budesonide [Pulmicort] 1 mg INHALATION RT-BID ml QUEtiapine [SEROquel] 200 mg PO HS Albuterol Sulfate [Albuterol Sulfate Hfa] 2 puff INHALATION RT-Q6H PRN #1 each PRN Reason: Shortness Of Breath Gabapentin [Neurontin] 300 mg PO BID Glycopyrrolate/Formoterol Fum [Bevespi Aerosphere Inhaler] 1 puff INHALATION RT-BID Montelukast [Singulair] 10 mg PO HS QUEtiapine [SEROquel] 100 mg PO HS tab Omeprazole [PriLOSEC] 20 mg PO BID HYDROcodone/APAP 5-325MG [[place] 5-325] 1 tab PO Q6HR PRN PRN Reason: Moderate To Severe Pain (4-10) Nystatin 100,000 Unit/ml Susp [Mycostatin Oral Susp] 5 ml PO QID #100 ml Ipratropium-Albuterol Nebulize [Duoneb 0.5 mg-3 mg/3 ml Soln] 3 ml INHALATION RT-QID PRN PRN Reason: Shortness Of Breath predniSONE See Taper PO DAILY Changed Sulfamethox-Tmp 800-160Mg [Bactrim DS 800-160 mg] 1 tab PO BID #10 tab Discharge Medication List Albuterol Sulfate [Albuterol Sulfate Hfa] 2 puff INHALATION RT-Q6H PRN #1 each 10/04/22 [Rx] levETIRAcetam [Keppra] 1,000 mg PO BID 03/20/23 [History] Rivaroxaban [Xarelto] 20 mg PO DAILY 06/21/23 [History] Gabapentin [Neurontin] 300 mg PO BID 04/15/24 [History] Glycopyrrolate/Formoterol Fum [Bevespi Aerosphere Inhaler] 1 puff INHALATION RT- BID 04/15/24 [History] Acetaminophen Tab [Tylenol] 1,000 mg PO Q6HR PRN 08/27/24 [History] Metoprolol Succinate [Toprol XL] 100 mg PO DAILY 08/27/24 [History] Montelukast [Singulair] 10 mg PO HS 08/27/24 [History] Ondansetron [Zofran] 4 mg PO Q6H PRN 08/27/24 [History] guaiFENesin [Mucinex] 600 mg PO Q12H 7 Days #14 tab 08/31/24 [Rx] Budesonide [Pulmicort] 1 mg INHALATION RT-BID ml 09/07/24 [Rx] QUEtiapine [SEROquel] 100 mg PO HS tab 09/07/24 [Rx] HYDROcodone/APAP 5-325MG [[place] 5-325] 1 tab PO Q6HR PRN 09/25/24 [History] Omeprazole [PriLOSEC] 20 mg PO BID 09/25/24 [History] Nystatin 100,000 Unit/ml Susp [Mycostatin Oral Susp] 5 ml PO QID #100 ml 10/06/24 [Rx] Ipratropium-Albuterol Nebulize [Duoneb 0.5 mg-3 mg/3 ml Soln] 3 ml INHALATION RT-QID PRN 10/08/24 [History] QUEtiapine [SEROquel] 200 mg PO HS 10/08/24 [History] predniSONE See Taper PO DAILY 10/08/24 [History] Sulfamethox-Tmp 800-160Mg [Bactrim DS 800-160 mg] 1 tab PO BID #10 tab 10/09/24 [Rx] Follow up Appointment(s)/Referral(s): Daksha Steiner MD [Primary Care Provider] - 1-2 days Margarita Irwin MD [STAFF PHYSICIAN] - 1 Week Discharge Disposition: TRANSFER TO SNF/ECF
[2024-10-09] MEDS: SULFAMETHOX-TMP 800-160MG 1 EACH TAB PO SCH (14:43)
[2024-10-09] MEDS: MONTELUKAST 10 MG TAB PO SCH (21:03)
[2024-10-09] MEDS: FORMOTEROL FUMARATE 20 MCG/2 ML NEBU INHALATION SCH (21:33)
[2024-10-09] MEDS: BUDESONIDE 1 MG/2 ML NEBU INHALATION SCH (21:33)
[2024-10-10 02:14] LABS: Glucose,Whole Blood 127 mg/dL (70-110)
[2024-10-10] MEDS: SODIUM CHLORIDE 0.9% 1,000 ML IV ONE (03:22)
[2024-10-10] MEDS: SODIUM CHLORIDE 0.9% 1,000 ML IV SCH (05:20)
[2024-10-10 05:32] LABS: ABG Base Excess 6.8 mmol/L; ABG HCO3 33 mmol/L (21-25); ABG Oxygen Saturation 99.8 % (94-97); ABG PCO2 57 mmHg (35-45); ABG PH 7.37 (7.35-7.45); ABG PO2 182 mmHg (83-108); ABG TCO2 35 mmol/L (19-24); Allen Test Performed? Yes
--- NOTE | 2024-10-10 06:43 | XR ---
EXAMINATION TYPE: XR chest 1V DATE OF EXAM: 10/10/2024 6:18 AM COMPARISON: Chest CT September 27, 2024 CLINICAL INDICATION: Female, 64 years old with history of sob, TECHNIQUE: Single frontal view of the chest is obtained. FINDINGS: Underlying emphysematous change is redemonstrated. Persistent right basilar scarring and vo lume loss. There is no suspicious minimal focal air space opacity, pleural effusion, or pneumothorax seen. The cardiac silhouette size remains within normal limits. The osseous structures are intact. IMPRESSION: Chronic changes without acute pulmonary process. [facility], , 10/10/2024 6:41 AM
[2024-10-10 07:03] LABS: Basophils % (A) 0 %; Eosinophils # (A) 0.2 k/uL (0-0.7); Eosinophils % (A) 2 %; Lymphocytes # (A) 1.4 k/uL (1.0-4.8); Lymphocytes % (A) 12 %; MCH 28.6 pg (25.0-35.0); MCHC 33.5 g/dL (31.0-37.0); MCV 85.1 fL (80.0-100.0); Mean Platelet Volume 6.9; Monocytes # (A) 0.5 k/uL (0-1.0); Monocytes % (A) 5 %; Neutrophils # (A) 9.3 k/uL (1.3-7.7); Neutrophils % (A) 81 %; Platelet Count 243 k/uL (150-450); RDW 15.6 % (11.5-15.5); WBC 11.5 k/uL (3.8-10.6)
[2024-10-10 07:09] LABS: HGB 9.7 gm/dL (11.4-16.0)
[2024-10-10 07:25] LABS: African American GFR (CKD) >90 (>60 ml/min/1.73 sqM); Anion Gap 2 mmol/L; Blood Urea Nitrogen 19 mg/dL (7-17); Calcium 7.8 mg/dL (8.4-10.2); Carbon Dioxide 33 mmol/L (22-30); Chloride 97 mmol/L (98-107); Glucose 86 mg/dL (74-99); Non-African American GFR(CKD) >90 (>60 ml/min/1.73 sqM); Potassium 4.2 mmol/L (3.5-5.1); Sodium 132 mmol/L (137-145)
[2024-10-10 13:07] VITALS: BMI 16.7
[2024-10-10 14:10] LABS: Appearance,Urine Clear (Clear); Bilirubin,Urine Negative (Negative); Blood,Urine Negative (Negative); Color,Urine Colorless; Glucose,Urine (UA) Negative (Negative); Ketones,Urine Negative (Negative); Leukocyte Esterase,Urine Trace (Negative); Mucus,Urine Rare /hpf; Nitrite,Urine Negative (Negative); Protein,Urine Negative (Negative); RBC,Urine 3 /hpf (0-5); Specific Gravity,Urine 1.013 (1.001-1.035); Squamous Epithelial Cell,Urine 1 /hpf (0-4); Urobilinogen,Urine <2.0 mg/dL (<2.0); WBC,Urine 2 /hpf (0-5)
[2024-10-10 14:20] VITALS: BP 106/63; PULSE 80; RESP 16; TEMP 99.2
--- NOTE | 2024-10-10 15:06 | P.DS ---
Providers Date of admission: 10/08/24 17:47 Attending physician: Buddy Walker Primary care physician: Daksha Steiner Hospital Course: Final Diagnosis Generalized weakness: Failure to thrive: Recurrent hospitalization: Recent hospitalization for acute hypoxic respiratory failure secondary to bilateral pneumonia, acute COPD, hemoptysis x1, status post bronchoscopy Cholelithiasis: was Evaluated by general surgery last week. Surgical intervention Paroxysmal atrial fibrillation on Xarelto COPD: On 3 to oxygen at baseline History of CVA with residual right-sided weakness Hyponatremia Hyperkalemia: Chronic pain Chronic disease Seizure disorder Hypertension Hyperlipidemia Anxiety/depression/bipolar disorder Ongoing nicotine addiction History of alcohol use, cocaine use marijuana use Discharge Disposition Stable for discharge to subacute rehab. Patient was recently admitted for pneumonia and COPD recently underwent bronchoscopy. Patient has chronic cholecystitis with no surgical intervention planned as per recent hospitalization. She is continued on a course of Bactrim and will continue for the next 5 days on discharge. Continue all other same home medications as per medication reconciliation. Follow-up with PCP and Dr. Irwin on discharge. Hospital Course This is a 64-year-old female with past medical history significant for CVA with residual right-sided weakness and spasm, chronic pain, Crohn's disease, seizure disorder, COPD on 3 L oxygen, paroxysmal A-fib on anticoagulation with Xarelto, hypertension, hyperlipidemia, depression, bipolar disorder, current smoker, history of alcohol use cocaine and marijuana use who was recently admitted to the hospital and was discharged yesterday. Patient was admitted for acute hypoxic respiratory failure secondary to bilateral pneumonia and acute COPD exacerbation, patient underwent bronchoscopy at that time, had 1 episode of acute hemoptysis which was later resolved, had mild hyponatremia, urine drug screen was positive for benzodiazepine, was also evaluated by general surgery for cholelithiasis and was suspected to have coronary chronic cholecystitis no surgical intervention was recommended ultrasound gallbladder was unremarkable. Patient was evaluated by pulmonary and ID during last hospitalization. Patient was discharged home yesterday on Bactrim to complete 1 week per infectious disease Patient was was found to be significantly weak but patient declined going to subacute rehab, and decided to go home. Patient now presented with unable to take care of herself. Patient is afebrile, heart rate 91, respiratory rate 16, blood pressure 107/62, saturating 98% on 2 L which is patient baseline. WBCs 18.8, hemoglobin 11.0, platelet 382. ANC 15.4. BMP showed sodium 129, potassium 5.4, BUN 42, creatinine 0.47 GFR more than 90. Patient was ordered hospital for further medical management generalized weakness. PT OT and case management was consulted. Patient home medications are continued. Patient discharged to subacute rehab. Please refer to med rec and assessment plan for further details. Follow-up with PCP in 1 week Follow-up with infectious disease as outpatient. Please see medication reconciliation for a list of current medications. Thank you for allowing us to participate in the care of this patient. The impression and plan of care has been dictated by Ninoska Dawn, Nurse Practitioner as directed. Dr. Antonette MD I have performed a history and physical examination and medical decision making of this patient, discussed the same with the dictator, and agree with the dictators assessment and plan as written, documented as a scribe. Based on total visit time, I have performed more than 50% of this visit. Patient Condition at Discharge: Stable Plan - Discharge Summary Discharge Rx Participant: No New Discharge Prescriptions: Continue levETIRAcetam [Keppra] 1,000 mg PO BID Rivaroxaban [Xarelto] 20 mg PO DAILY Metoprolol Succinate [Toprol XL] 100 mg PO DAILY Acetaminophen Tab [Tylenol] 1,000 mg PO Q6HR PRN PRN Reason: Pain Or Fever > 100.5 Ondansetron [Zofran] 4 mg PO Q6H PRN PRN Reason: Nausea or Vomiting guaiFENesin [Mucinex] 600 mg PO Q12H 7 Days #14 tab Budesonide [Pulmicort] 1 mg INHALATION RT-BID ml QUEtiapine [SEROquel] 200 mg PO HS HYDROcodone/APAP 5-325MG [[place] 5-325] 1 tab PO Q6HR PRN #4 tab PRN Reason: Moderate To Severe Pain (4-10) Albuterol Sulfate [Albuterol Sulfate Hfa] 2 puff INHALATION RT-Q6H PRN #1 each PRN Reason: Shortness Of Breath Gabapentin [Neurontin] 300 mg PO BID Glycopyrrolate/Formoterol Fum [Bevespi Aerosphere Inhaler] 1 puff INHALATION RT-BID Montelukast [Singulair] 10 mg PO HS QUEtiapine [SEROquel] 100 mg PO HS tab Omeprazole [PriLOSEC] 20 mg PO BID Nystatin 100,000 Unit/ml Susp [Mycostatin Oral Susp] 5 ml PO QID #100 ml Ipratropium-Albuterol Nebulize [Duoneb 0.5 mg-3 mg/3 ml Soln] 3 ml INHALATION RT-QID PRN PRN Reason: Shortness Of Breath predniSONE See Taper PO DAILY Changed Sulfamethox-Tmp 800-160Mg [Bactrim DS 800-160 mg] 1 tab PO BID #10 tab Discharge Medication List Albuterol Sulfate [Albuterol Sulfate Hfa] 2 puff INHALATION RT-Q6H PRN #1 each 10/04/22 [Rx] levETIRAcetam [Keppra] 1,000 mg PO BID 03/20/23 [History] Rivaroxaban [Xarelto] 20 mg PO DAILY 06/21/23 [History] Gabapentin [Neurontin] 300 mg PO BID 04/15/24 [History] Glycopyrrolate/Formoterol Fum [Bevespi Aerosphere Inhaler] 1 puff INHALATION RT- BID 04/15/24 [History] Acetaminophen Tab [Tylenol] 1,000 mg PO Q6HR PRN 08/27/24 [History] Metoprolol Succinate [Toprol XL] 100 mg PO DAILY 08/27/24 [History] Montelukast [Singulair] 10 mg PO HS 08/27/24 [History] Ondansetron [Zofran] 4 mg PO Q6H PRN 08/27/24 [History] guaiFENesin [Mucinex] 600 mg PO Q12H 7 Days #14 tab 08/31/24 [Rx] Budesonide [Pulmicort] 1 mg INHALATION RT-BID ml 09/07/24 [Rx] QUEtiapine [SEROquel] 100 mg PO HS tab 09/07/24 [Rx] Omeprazole [PriLOSEC] 20 mg PO BID 09/25/24 [History] Nystatin 100,000 Unit/ml Susp [Mycostatin Oral Susp] 5 ml PO QID #100 ml 10/06/24 [Rx] Ipratropium-Albuterol Nebulize [Duoneb 0.5 mg-3 mg/3 ml Soln] 3 ml INHALATION RT-QID PRN 10/08/24 [History] QUEtiapine [SEROquel] 200 mg PO HS 10/08/24 [History] predniSONE See Taper PO DAILY 10/08/24 [History] Sulfamethox-Tmp 800-160Mg [Bactrim DS 800-160 mg] 1 tab PO BID #10 tab 10/09/24 [Rx] HYDROcodone/APAP 5-325MG [[place] 5-325] 1 tab PO Q6HR PRN #4 tab 10/10/24 [Rx] Follow up Appointment(s)/Referral(s): Daksha Steiner MD [Primary Care Provider] - 1-2 days Margarita Irwin MD [STAFF PHYSICIAN] - 1 Week Ambulatory/Diagnostic Orders: Basic Metabolic Panel [LAB.AMB] Time Frame: 3 Days, Location: None Selected Complete Blood Count w/diff [LAB.AMB] Location: None Selected Discharge Disposition: TRANSFER TO SNF/ECF
== END 2024-10-10 16:45 ==
LOC: EC 16:08 → 5NMEDONC 17:47
PROVIDERS: ADMIT Hospitalist; ATTEND Hospitalist
DX: R53.1 Weakness (principal); R62.7 Adult failure to thrive; G89.29 Other chronic pain; G40.909 Epilepsy, unspecified, not intractable, without status epilepticus; I10 Essential (primary) hypertension; E78.5 Hyperlipidemia, unspecified; F41.9 Anxiety disorder, unspecified; F31.9 Bipolar disorder, unspecified; F17.200 Nicotine dependence, unspecified, uncomplicated; K80.20 Calculus of gallbladder without cholecystitis without obstruction; I25.10 Atherosclerotic heart disease of native coronary artery without angina pectoris; I48.0 Paroxysmal atrial fibrillation; J44.9 Chronic obstructive pulmonary disease, unspecified; I69.351 Hemiplegia and hemiparesis following cerebral infarction affecting right dominant side; K21.9 Gastro-esophageal reflux disease without esophagitis; K50.90 Crohn's disease, unspecified, without complications; M19.90 Unspecified osteoarthritis, unspecified site; Z79.01 Long term (current) use of anticoagulants; Z79.899 Other long term (current) drug therapy; Z99.81 Dependence on supplemental oxygen; Z88.1 Allergy status to other antibiotic agents; Z88.8 Allergy status to other drugs, medicaments and biological substances; Z79.51 Long term (current) use of inhaled steroids
CPT/HCPCS: 99284; 94640 ×4; 36600; 97162; 97166; 80048 ×3; 82805; 85025 ×2; 85027; 81001; 71045; G0378 ×3

== ENCOUNTER 2024-12-13 18:23 | Inpatient (IN) | payer MEDICARE, OTHER ==
[2024-12-13] MEDS: fentaNYL (PF) 50 MCG/ML 2 ML AMP IVP STA ×2 (18:33→20:32)
[2024-12-13] MEDS ORDERED: VANCOMYCIN IV PER PHARMACY 1 EACH MISC MISCELLANE PRN (18:34)
[2024-12-13] MEDS ORDERED: IPRATROPIUM-ALBUTEROL 3 ML NEB INHALATION PRN ×2 (18:35→20:02)
[2024-12-13 18:38] LABS: Glucose,Whole Blood 241 mg/dL (70-110)
[2024-12-13 18:49] LABS: HCT 30.9 % (34.0-46.0); HGB 9.2 gm/dL (11.4-16.0); Hypochromasia Moderate; MCH 26.2 pg (25.0-35.0); MCHC 29.9 g/dL (31.0-37.0); MCV 87.6 fL (80.0-100.0); Mean Platelet Volume 7.1; Platelet Count 461 k/uL (150-450); RBC 3.53 m/uL (3.80-5.40); RDW 14.8 % (11.5-15.5); WBC 39.7 k/uL (3.8-10.6)
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
--- NOTE | 2024-12-13 18:57 | XR ---
EXAMINATION TYPE: XR chest 1V portable DATE OF EXAM: 12/13/2024 6:45 PM COMPARISON: Multiple prior chest radiograph, most recently dated 10/10/2024. CLINICAL INDICATION: Female, 64 years old with history of Tube placement; [facility] TECHNIQUE: XR chest 1V portable Frontal view of the chest. FINDINGS: Lungs/Pleura: Patchy infiltrative opacities bilaterally. No sizable pleural effusion. No definite pne umothorax. Heart/mediastinum: Cardiomediastinal silhouette is unremarkable. Musculoskeletal: No acute osseous pathology. Other findings: None Lines/Tubes: Endotracheal tube terminates approximately 4 cm above the della. Enteric tube courses below the left hemidiaphragm with distal sidehole and tip outside the [id number]. IMPRESSION: 1. Patchy infiltrative opacities bilaterally suggestive of multifocal pneumonia in the appropriate c linical setting. 2. Support devices as above. [facility], Workstation: [id number], 12/13/2024 6:55 PM
[2024-12-13 19:00] LABS: Alcohol <10 mg/dL
[2024-12-13 19:02] LABS: Lactic Acid, Venous 0.9 mmol/L (0.7-2.0)
[2024-12-13 19:03] LABS: ALT 16 U/L (4-34); AST 29 U/L (14-36); African American GFR (CKD) >90 (>60 ml/min/1.73 sqM); Albumin 3.3 g/dL (3.5-5.0); Alkaline Phosphatase 65 U/L (38-126); Anion Gap 3 mmol/L; Blood Urea Nitrogen 16 mg/dL (7-17); Calcium 8.1 mg/dL (8.4-10.2); Carbon Dioxide 32 mmol/L (22-30); Chloride 100 mmol/L (98-107); Glucose 206 mg/dL (74-99); Non-African American GFR(CKD) >90 (>60 ml/min/1.73 sqM); Potassium 5.3 mmol/L (3.5-5.1); Sodium 135 mmol/L (137-145); Total Bilirubin 0.4 mg/dL (0.2-1.3); Total Protein 6.2 g/dL (6.3-8.2)
[2024-12-13 19:06] LABS: INR 0.8 (<1.2); Prothrombin Time 9.5 sec (10.0-12.5)
[2024-12-13 19:10] LABS: NT-Pro-B-Type Natriuretic Pept 256 pg/mL
[2024-12-13 19:14] LABS: Partial Thromboplastin Time 18.7 sec (22.0-30.0)
--- NOTE | 2024-12-13 19:20 | CT ---
EXAMINATION TYPE: CT brain wo con DATE OF EXAM: 12/13/2024 7:08 PM COMPARISON: Previous CT study. CLINICAL INDICATION: Female, 64 years old with history of AMS, severe HTN, Severe HTN, patient found unresponsive, intubated prior to CT. Hx. CVA. TECHNIQUE: Brain: Axial CT images of the brain were obtained with coronal and sagittal reformats created and rev iewed. Contrast used: None. Oral contrast used: None. CT DLP: Combined 1977.6 mGycm, Automated exposure control for dose reduction was used. FINDINGS: Brain: Extra-axial spaces: No abnormal extra-axial fluid collections. Ventricular system: Within normal limits Cerebral parenchyma: No acute intraparenchymal hemorrhage or mass effect. The castro-white junction is well differentiated. Scattered hypoattenuating areas are seen within the white matter. Cerebellum: Unremarkable. Mass effect: No evidence of midline shift. Intracranial vasculature: unremarkable Soft tissues: Normal. Partially visualized endotracheal tube. Calvarium/osseous structures: No depressed skull fracture. Paranasal sinuses and mastoid air cells: Mild scattered paranasal sinus disease. Visualized orbits: The lenses are surgically removed from the globes. IMPRESSION: No acute intracranial process. [facility], , 12/13/2024 7:18 PM
[2024-12-13 19:23] LABS: ABG Base Excess 0.7 mmol/L; ABG HCO3 29 mmol/L (21-25); ABG Oxygen Saturation >100.0 % (94-97); ABG PCO2 65 mmHg (35-45); ABG PH 7.25 (7.35-7.45); ABG PO2 215 mmHg (83-108); ABG TCO2 31 mmol/L (19-24); Allen Test Performed? Yes
--- NOTE | 2024-12-13 19:30 | CT ---
EXAMINATION TYPE: CT angio head neck DATE OF EXAM: 12/13/2024 7:14 PM COMPARISON: . CLINICAL INDICATION: Female, 64 years old with history of AMS, severe HTN; PHH, Severe HTN, patient f ound unresponsive, intubated prior to CT. Hx. CVA. TECHNIQUE: Axially acquired helical CT angiogram of the head and neck was obtained with contrast. Axi al images are supplemented with 3D reconstructions and MIP images which were post-processed at an in dependent workstation. NASCET criteria used. Contrast used:65 mL of Isovue 370 without and with IV Contrast, Oral contrast used: None. CT DLP: Combined 1977.6 mGycm, Automated exposure control for dose reduction was used. FINDINGS: CTA HEAD: No evidence of acute intracranial hemorrhage, mass effect, or midline shift. The ventricles, sulci, a nd cisterns are unremarkable. Extensive paranasal sinus disease. Vertebral arteries: The vertebral arteries are patent. Vertebral artery dominance: Right Basilar artery: The basilar artery is intact. The basilar artery bifurcation is normal. Internal Carotid arteries: The cervical, petrous, cavernous and supraclinoid segments are normal. CHANTAL: Patent with no evidence of aneurysm. ACOM: Present without evidence of aneurysm. MCA: Patent with no evidence of aneurysm. HL7 INTERFACE DEVELOPER: Patent with no evidence of aneurysm. PCOM: origin of the right HL7 INTERFACE DEVELOPER. Dysplastic left posterior communicating artery Dural sinuses: Patent. CTA NECK: Right Carotid System: The common carotid and external carotid arteries are patent. There is less than 50 % stenosis at the carotid bifurcation secondary to calcified/noncalcified plaque. The rest of the internal carotid misael ry is patent. Left Carotid System: The common carotid and external carotid arteries are patent. There is less than 50 % stenosis at the carotid bifurcation secondary to calcified/noncalcified plaque. The rest of the internal carotid misael ry is patent. Vertebral arteries are patent without evidence hemodynamically significant stenosis. There is a three-vessel aortic arch. The origins of the great vessels are patent. No evidence of hemo dynamically significant stenosis. Upper thorax: Partially visualized lungs demonstrates emphysema and mucous plugging with bronchial wall thickening in the right upper lobe (image 1/124). Endotracheal tube terminates in the mid thoracic trachea. Ente alina tube is visualized. IMPRESSION: 1. No evidence of dissection of the cervical internal carotid arteries or vertebral arteries. 2. No any evidence of significant/flow limiting stenosis at the carotid bifurcations. 3. No evidence of intracranial high-grade stenosis or intracranial aneurysm. [facility], , 12/13/2024 7:28 PM
[2024-12-13] MEDS: LACTATED RINGERS 1,000 ML IV SCH ×2 (19:37→22:29)
[2024-12-13] MEDS: AZITHROMYCIN 500 MG in SODIUM CHLORIDE 0.9% 250 ML IVPB STA (19:46)
[2024-12-13] MEDS ORDERED: Phosphorus Replacement Protoco 1 EACH MISC MISCELLANE PRN (20:02)
[2024-12-13] MEDS ORDERED: Potassium Replacement Protocol 1 EACH MISC MISCELLANE PRN (20:02)
[2024-12-13] MEDS ORDERED: NALOXONE 0.4 MG/ML 1 ML VIAL IV PRN (20:02)
[2024-12-13] MEDS ORDERED: MORPHINE SULFATE 2 MG/ML SYRINGE IV PRN (20:02)
[2024-12-13] MEDS ORDERED: ACETAMINOPHEN SUPPOSITORY 650 MG SUPP RECTAL PRN (20:02)
[2024-12-13] MEDS ORDERED: Magnesium Replacement Protocol 1 EACH MISC MISCELLANE PRN (20:02)
[2024-12-13] MEDS: DEXTROSE 50% SYRINGE 50 ML IVP ONE (20:07)
[2024-12-13] MEDS: INSULIN REGULAR 100 UNIT/ML VIAL (IV) IV ONE (20:07)
[2024-12-13] MEDS: fentaNYL (PF). 1,000 MCG in SODIUM CHLORIDE 0.9% 80 ML IV SCH (20:20)
[2024-12-13] MEDS: CALCIUM GLUCONATE IN NACL 1 GM in SALINE 1 100ML.BAG IVPB ONE (20:53)
[2024-12-13] MEDS: VANCOMYCIN 1,500 MG in SODIUM CHLORIDE 0.9% 500 ML 500 ML IVPB ONE (21:10)
[2024-12-13] MEDS: QUEtiapine 200 MG TAB PO SCH (21:11)
[2024-12-13] MEDS: RIVAROXABAN 20 MG TAB PO SCH (21:11)
[2024-12-13] MEDS: QUEtiapine 50 MG TAB PO SCH (21:11)
--- NOTE | 2024-12-13 21:11 | XR ---
EXAMINATION TYPE: XR chest 1V portable DATE OF EXAM: 12/13/2024 9:04 PM COMPARISON: Similar chest radiograph. CLINICAL INDICATION: Female, 64 years old with history of line placement; [facility] TECHNIQUE: XR chest 1V portable Frontal view of the chest. FINDINGS: Jose silhouettes stable. Interval placement of endotracheal tube visualized terminating partially 4.5 cm above the della. Rig ht-sided central venous catheter terminating near the cavoatrial junction. Patchy bilateral infiltrat aliyah opacities, similar to most recent prior study. Enteric tube visualized coursing below the left he midiaphragm. No sizable pleural effusion. No pneumothorax. IMPRESSION: 1. Endotracheal tube terminating approximately 4.5 cm above the della. 2. Right central venous catheter terminating near the cavoatrial junction. 3. Enteric tube partially visualized portions of the left hemidiaphragm. [facility], , 12/13/2024 9:08 PM
[2024-12-13 21:24] LABS: Band Neutrophils % 1 %; Eosinophils # (M) 4.37 k/uL (0-0.7); Lymphocytes # (M) 11.51 k/uL (1.0-4.8); Metamyelocytes # (M) 0.79 k/uL (0); Metamyelocytes % 2 %; Monocytes # (M) 4.37 k/uL (0-1.0); Neutrophils % (M) 48 %; Nucleated Red Blood Cells 0 /100 WBC (0-0); Total Cells Counted 200
[2024-12-13] MEDS: NOREPINEPHRINE 8 MG in SODIUM CHLORIDE 0.9% 250 ML IV SCH (21:48)
[2024-12-13] MEDS: LACTATED RINGERS 250 ML IV ONE (22:23)
[2024-12-13 22:55] LABS: Appearance,Urine Clear (Clear); Bilirubin,Urine Negative (Negative); Blood,Urine Negative (Negative); Color,Urine Light Yellow; Glucose,Urine (UA) 1+ (Negative); Ketones,Urine Negative (Negative); Leukocyte Esterase,Urine Negative (Negative); Nitrite,Urine Negative (Negative); Protein,Urine Trace (Negative); Urobilinogen,Urine <2.0 mg/dL (<2.0)
[2024-12-13 23:03] LABS: Specific Gravity,Urine 1.047 (1.001-1.035)
[2024-12-13 23:18] LABS: Phencyclidine Screen,Urine Not Detected (NotDetected); Urn Cannabinoid Scrn Not Detected (NotDetected)
[2024-12-13 23:19] LABS: Amphetamine Screen,Urine Not Detected (NotDetected); Barbiturate Screen,Urine Not Detected (NotDetected); Benzodiazepines Screen,Urine Not Detected (NotDetected); Cocaine Screen,Urine Not Detected (NotDetected); Methadone Screen, Urine Not Detected (NotDetected); Opiate Screen,Urine Detected (NotDetected); Oxycodone Screen, Urine Not Detected (NotDetected); Tricyclic Antidepressant,Urine Detected (NotDetected)
[2024-12-14 05:01] LABS: ABG Base Excess 4.9 mmol/L; ABG HCO3 29 mmol/L (21-25); ABG Oxygen Saturation >100.0 % (94-97); ABG PCO2 42 mmHg (35-45); ABG PH 7.46 (7.35-7.45); ABG PO2 193 mmHg (83-108); ABG TCO2 31 mmol/L (19-24); Allen Test Performed? Yes
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
--- NOTE | 2024-12-14 07:48 | XR ---
EXAMINATION TYPE: XR chest 1V portable DATE OF EXAM: 12/14/2024 4:56 AM COMPARISON: Chest radiographs from 12/13/2024 CLINICAL INDICATION: Female, 64 years old with history of Tube placement; TECHNIQUE: XR chest 1V portable Frontal view of the chest. FINDINGS: Lungs/Pleura: Prominent interstitial lung markings are seen scattered throughout the lungs. No eviden ce of focal consolidation, pneumothorax or pleural effusion. Pulmonary vascularity: Unremarkable. Heart/mediastinum: Cardiomediastinal silhouette is unremarkable. Musculoskeletal: No acute osseous pathology. Other findings: None Lines/Tubes: Endotracheal tube with distal tip 4.8 cm above the della. Nasogastric tube with its distal tip and side-port projecting under the diaphragm. Right internal jugular central venous catheter with distal tip at the cavoatrial junction. IMPRESSION: No acute cardiopulmonary disease/process. [facility], , 12/14/2024 7:46 AM
[2024-12-14 07:50] LABS: Influenza A Not Detected (Not Detectd); Influenza B Not Detected (Not Detectd); RSV Not Detected (Not Detectd)
[2024-12-14] MEDS: BUDESONIDE 1 MG/2 ML NEBU INHALATION SCH (08:01)
[2024-12-14] MEDS: FORMOTEROL FUMARATE 20 MCG/2 ML NEBU INHALATION SCH (08:01)
[2024-12-14] MEDS: IPRATROPIUM-ALBUTEROL 3 ML NEB INHALATION SCH (08:02)
[2024-12-14] MEDS: METOPROLOL SUCCINATE (ER) 100 MG TAB.ER.24H PO SCH (08:12)
[2024-12-14] MEDS: PANTOPRAZOLE 40 MG/10 ML VIAL IV SCH (08:18)
[2024-12-14] MEDS: ESCITALOPRAM 10 MG TAB OG-TUBE SCH (08:18)
[2024-12-14] MEDS: levETIRAcetam 500 MG TAB PO SCH (08:18)
--- NOTE | 2024-12-14 08:47 | CONS ---
CONSULTATION HISTORY OF PRESENT ILLNESS: Fabiola is a 64-year-old lady whom I am evaluating in the emergency room. She is intubated and on the vent at the time of my evaluation. She has fairly extensive history including paroxysmal atrial fibrillation, coronary artery disease, hypertension, dyslipidemia, seizure disorder, polysubstance abuse, COPD on home O2. The patient came from [facility], was minimally responsive, she required bag-mask ventilation. She was intubated when she arrived to the emergency room. The patient has multifocal pneumonia. We have been consulted because of mild elevation in troponin. EKG on this admission revealed atrial fibrillation with rapid ventricular rate. She subsequently converted to sinus rhythm and at the time of my evaluation, she was in sinus rhythm and drug screen was positive for opiates and tricyclics. Troponin is mildly elevated at 0.5. Hemoglobin is 9.2 with a white cell count of 39. Her white cell count jumped from 11 two months ago to 39. PAST MEDICAL HISTORY: Significant for paroxysmal atrial fibrillation, coronary artery disease, hypertension, dyslipidemia, COPD. MEDICATIONS: As charted, she is on Xarelto for anticoagulation. ALLERGIES: To Levaquin and nitroglycerin. FAMILY HISTORY: I am unable to obtain from the patient who is intubated and on the vent. SOCIAL HISTORY: I am unable to obtain from the patient who is intubated and on the vent. REVIEW OF SYSTEMS: I am unable to obtain from the patient who is intubated and on the vent. PHYSICAL EXAMINATION: VITAL SIGNS: Heart rate is 70 beats per minute, blood pressure is 127/90, respiratory rate 18. The patient is mechanically ventilated with an FiO2 of 50%. HEENT: There is no jugular venous distention. Carotid upstroke is diminished. There is no bruit. CHEST: Reveals diminished air entry at the bases. HEART: Reveals first and second heart sounds. Systolic murmur at the left lower sternal border. ABDOMEN: Soft. EXTREMITIES: Did not reveal any edema. Peripheral pulses are palpable. DIAGNOSTIC STUDIES: The patient had an echocardiogram in May of 2023 that revealed normal LV systolic function. ASSESSMENT: 1. Paroxysmal atrial fibrillation. 2. Pneumonia with vent, requiring respiratory failure. 3. Elevated troponin probably related to respiratory failure. The patient did not have any myocardial infarction. PLAN: I will continue the patient on anticoagulant. She is on antibiotics. Continue the Toprol that she was on. The patient is hypotensive and is currently on pressors. MMODL / IJN: [id number] /
[2024-12-14] MEDS: VANCOMYCIN 1,250 MG in SODIUM CHLORIDE 0.9% 250 ML IVPB SCH (09:10)
[2024-12-14] MEDS ORDERED: RX INFO: IV CONTRAST WAS GIVEN 1 EACH MISC MISCELLANE PRN (09:30)
[2024-12-14] MEDS: methylPREDNISolone SOD SUCCI 125 MG/2 ML VIAL IV SCH (11:27)
[2024-12-14] MEDS: CEFEPIME 2 GM in SODIUM CHLORIDE 0.9% 100 ML IVPB SCH (11:27)
[2024-12-14] MEDS: fentaNYL (PF) 50 MCG/ML 2 ML AMP IVP PRN (12:07)
[2024-12-14] MEDS: fentaNYL (PF). 1,000 MCG in SODIUM CHLORIDE 0.9% 80 ML IV SCH (12:51)
[2024-12-14 13:16] LABS: ALT 10 U/L (4-34); AST 21 U/L (14-36); African American GFR (CKD) >90 (>60 ml/min/1.73 sqM); Albumin 1.5 g/dL (3.5-5.0); Alkaline Phosphatase 37 U/L (38-126); Anion Gap 3 mmol/L; Blood Urea Nitrogen 5 mg/dL (7-17); Carbon Dioxide 16 mmol/L (22-30); Chloride 117 mmol/L (98-107); Glucose 75 mg/dL (74-99); Non-African American GFR(CKD) >90 (>60 ml/min/1.73 sqM); Sodium 136 mmol/L (137-145); Total Bilirubin 0.9 mg/dL (0.2-1.3); Total Protein 3.4 g/dL (6.3-8.2)
[2024-12-14 13:18] LABS: Potassium 2.4 mmol/L (3.5-5.1)
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
[2024-12-14] MEDS ORDERED: DEXTROSE 50% SYRINGE 50 ML IVP PRN ×2 (14:31)
[2024-12-14 15:19] LABS: Magnesium 1.3 mg/dL (1.6-2.3); Potassium 4.1 mmol/L (3.5-5.1)
[2024-12-14 15:37] LABS: Glucose,Whole Blood 164 mg/dL (70-110)
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
[2024-12-14 16:10] LABS: Glucose,Whole Blood 197 mg/dL (70-110)
[2024-12-14 17:43] LABS: HCT 27.6 % (34.0-46.0); HGB 8.2 gm/dL (11.4-16.0); Hypochromasia Marked; MCH 26.2 pg (25.0-35.0); MCHC 29.9 g/dL (31.0-37.0); MCV 87.8 fL (80.0-100.0); Mean Platelet Volume 6.8; Platelet Count 304 k/uL (150-450); RBC 3.15 m/uL (3.80-5.40); WBC 16.2 k/uL (3.8-10.6)
[2024-12-14 18:06] LABS: ALT 16 U/L (4-34); AST 25 U/L (14-36); African American GFR (CKD) >90 (>60 ml/min/1.73 sqM); Alkaline Phosphatase 60 U/L (38-126); Anion Gap 9 mmol/L; Blood Urea Nitrogen 9 mg/dL (7-17); Carbon Dioxide 27 mmol/L (22-30); Chloride 102 mmol/L (98-107); Glucose 181 mg/dL (74-99); Non-African American GFR(CKD) >90 (>60 ml/min/1.73 sqM); Sodium 138 mmol/L (137-145); Total Bilirubin 0.6 mg/dL (0.2-1.3); Total Protein 5.8 g/dL (6.3-8.2)
[2024-12-14 18:28] LABS: Glucose,Whole Blood 209 mg/dL (70-110)
[2024-12-14] MEDS: INSULIN LISPRO (HumaLOG) 100 UNIT/ML 10 mL VL SQ SCH (18:58)
--- NOTE | 2024-12-14 21:29 | EEG ---
ELECTROENCEPHALOGRAM REPORT CLINICAL HISTORY: This is a 64-year-old woman with history of seizure, who has altered mental status. The video EEG is obtained to evaluate for seizure and epileptiform activity. RELEVANT MEDICATIONS: 1. Keppra. 2. IV propofol. EEG TYPE: This is a routine 21-channel EEG with video using the 10/20 electrode placement system. DESCRIPTION: Wakefulness and drowsiness are obtained. The patient is intubated on a ventilator. The background consists of [id number] voltage of 7 to 8 Hz activity intermixed with delta activity. There is no physiological stage 2 sleep architecture. There is no focal slowing. Interictal and ictal is none. ACTIVATION PROCEDURE: Photic stimulation did not evoke a posterior driving response. There is no abnormality during the photic stimulation. Hyperventilation is not performed. CLINICAL INTERPRETATION: This is an abnormal routine EEG during awake, awake and drowsy state. The background slowing is suggestive of moderate encephalopathy, likely due to toxic-metabolic derangement as well as medication-induced, (IV propofol). Otherwise, there is no focal slowing, epileptiform discharge, or seizure on the EEG. Lack of epileptiform discharge does not rule out underlying epilepsy. Clinical correlation is recommended. MMODL / IJN: [id number] / MTDD
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
[2024-12-15 00:12] LABS: Glucose,Whole Blood 224 mg/dL (70-110)
--- NOTE | 2024-12-15 00:32 | P.PCN ---
Date of Procedure: 12/15/24 Preoperative Diagnosis: Acute hypoxemic and hypercapnic respiratory failure, pneumonia, sepsis Postoperative Diagnosis: Acute hypoxemic and hypercapnic respiratory failure, pneumonia, sepsis Procedure(s) Performed: Insertion of a right radial arterial line Indications for Procedure: Hemodynamic monitoring and frequent blood draws Description of Procedure: Informed consent was obtained, and a procedural timeout was performed . The patient was placed in supine position. The right radial region was prepared in a sterile fashion, and a sterile drape was applied. The right radial artery was palpated, easily cannulated, and a guidewire was placed. A Cook catheter was inserted over the guidewire, and the guidewire was removed. There was good arterial blood flow, good arterial waveform, and no complications. The line was secured with using a 3-0 silk suture.
[2024-12-15 02:18] LABS: Glucose,Whole Blood 216 mg/dL (70-110)
[2024-12-15] MEDS: INSULIN LISPRO (HumaLOG) 100 UNIT/ML 10 mL VL SQ SCH (02:19)
[2024-12-15 04:32] LABS: Basophils % (A) 0 %; Eosinophils % (A) 0 %; HGB 7.7 gm/dL (11.4-16.0); Hypochromasia Moderate; Lymphocytes # (A) 0.7 k/uL (1.0-4.8); Lymphocytes % (A) 5 %; MCH 26.5 pg (25.0-35.0); MCHC 30.7 g/dL (31.0-37.0); MCV 86.3 fL (80.0-100.0); Mean Platelet Volume 7.5; Monocytes # (A) 0.5 k/uL (0-1.0); Monocytes % (A) 3 %; Neutrophils # (A) 12.9 k/uL (1.3-7.7); Neutrophils % (A) 91 %; Platelet Count 273 k/uL (150-450); RDW 15.2 % (11.5-15.5); WBC 14.1 k/uL (3.8-10.6)
[2024-12-15 04:43] LABS: African American GFR (CKD) >90 (>60 ml/min/1.73 sqM); Anion Gap 5 mmol/L; Blood Urea Nitrogen 9 mg/dL (7-17); Calcium 8.6 mg/dL (8.4-10.2); Carbon Dioxide 29 mmol/L (22-30); Chloride 103 mmol/L (98-107); Glucose 167 mg/dL (74-99); Magnesium 1.4 mg/dL (1.6-2.3); Non-African American GFR(CKD) >90 (>60 ml/min/1.73 sqM); Potassium 3.8 mmol/L (3.5-5.1); Sodium 137 mmol/L (137-145)
[2024-12-15 04:59] LABS: ABG Base Excess 4.1 mmol/L; ABG HCO3 29 mmol/L (21-25); ABG Oxygen Saturation 98.1 % (94-97); ABG PCO2 46 mmHg (35-45); ABG PH 7.41 (7.35-7.45); ABG PO2 95 mmHg (83-108); ABG TCO2 31 mmol/L (19-24)
[2024-12-15 05:36] LABS: Allen Test Performed? no
[2024-12-15] MEDS: MAGNESIUM SULFATE-D5W PMX 1 GM in DEXTROSE/WATER 1 100ML.BAG IVPB SCH (05:57)
[2024-12-15] MEDS: POTASSIUM BICARBONATE/CIT AC 20 MEQ TABLET.EFF NG-TUBE SCH (05:58)
[2024-12-15 06:31] LABS: Glucose,Whole Blood 191 mg/dL (70-110)
[2024-12-15] MEDS: VANCOMYCIN TROUGH DUE 1 EACH MISC MISCELLANE ONE (07:27)
--- NOTE | 2024-12-15 07:39 | CT ---
EXAMINATION TYPE: CT chest w con DATE OF EXAM: 12/14/2024 COMPARISON: Chest CT September 27, 2024 CLINICAL INDICATION: Female, 64 years old with history of history of mass , RLQ pain. TECHNIQUE: CT scan of the thorax is performed following with IV Contrast, patient injected with 80 m l mL of Isovue 300. CT DLP: 509.5 mGycm. Automated Exposure Control for Dose Reduction was Utilized. FINDINGS: LUNGS: Moderate to advanced underlying emphysematous change is redemonstrated. There are new small to tiny right greater than left pleural effusions and mild increased markings bilaterally consistent wi th edema.. There is more prominent posterior right basilar consolidation and/or atelectasis. Patchy c onsolidations in the right middle lobe inferiorly are present. Persistent right-sided volume loss wit h mediastinal shift. HEART: Size within normal limits.There is mild to moderate right greater than left atrial dilatation No significant coronary artery calcifications. MEDIASTINUM: There are no greater than 1 cm hilar or mediastinal lymph nodes. No pericardial effusi on is seen. There is new endotracheal tube terminates at the aortic knob level. There is new orogast alina tube terminating below the diaphragm. OTHER: Liver is heterogeneously hypointense consistent with diffuse fatty infiltration. Vicarious exc retion in gallbladder noted. IMPRESSION: Moderate to advanced underlying emphysematous change redemonstrated. New mild bilateral i nterstitial edema and small to tiny right greater than left pleural effusions consistent with fluid o verload state. More prominent posterior right basilar consolidation and/or atelectasis and new patchy consolidations in the inferior right middle lobe are present. [facility], , 12/15/2024 7:37 AM
--- NOTE | 2024-12-15 08:28 | XR ---
EXAMINATION TYPE: XR chest 1V portable DATE OF EXAM: 12/15/2024 4:45 AM COMPARISON: Chest radiograph from one day prior. CLINICAL INDICATION: Female, 64 years old with history of Tube placement; [facility] TECHNIQUE: XR chest 1V portable Frontal view of the chest. FINDINGS: Lungs/Pleura: Prominent interstitial lung markings are seen scattered throughout the lungs with incre ased lucency of the lung apices. No evidence of focal consolidation, pneumothorax or pleural effusion . Pulmonary vascularity: Unremarkable. Heart/mediastinum: Cardiomediastinal silhouette is unremarkable. Musculoskeletal: No acute osseous pathology. Other findings: None Lines/Tubes: Endotracheal tube with distal tip 4.8 cm above the della. Nasogastric tube with its distal tip and side-port projecting under the diaphragm. Right internal jugular central venous catheter with distal tip at the cavoatrial junction. IMPRESSION: 1. Stable support line and tubes. 2. Cardiomegaly with trace pleural effusions. Correlate for congestive heart failure. 3. COPD changes. [facility], , 12/15/2024 8:26 AM
[2024-12-15] MEDS: LACTULOSE 20 GM/30 ML CUP PO SCH (09:36)
[2024-12-15] MEDS: VANCOMYCIN 1,500 MG in SODIUM CHLORIDE 0.9% 500 ML 500 ML IVPB SCH (10:09)
--- NOTE | 2024-12-15 11:47 | PN ---
PROGRESS NOTE SUBJECTIVE: Fabiola is a 64-year-old lady, whom I saw in the emergency room yesterday when she presented with symptoms of altered mental status and subsequently intubated on vent, has multifocal pneumonia. We were consulted because of mild elevation in troponin. I will obtain an echo on her today. The patient remains intubated on vent. This morning, she is sedated. MEDICATIONS: Include: 1. Toprol-XL. 2. Vancomycin. 3. Xarelto. PHYSICAL EXAMINATION: VITAL SIGNS: On exam, heart rate is 78 beats per minute. Blood pressure is 100/48, respiratory rate is 18, O2 saturation is 97%. CHEST: Reveals diminished air entry bilaterally. HEART: Reveals first and second heart sounds. No gallop. ABDOMEN: Soft. EXTREMITIES: Did not reveal any edema. LABORATORY DATA: Labs show a hemoglobin of 7.7, platelet count is 270. Potassium is 3.8, creatinine is 0.3. ASSESSMENT: 1. Vent requiring respiratory failure. 2. Paroxysmal atrial fibrillation. 3. Pneumonia. 4. Elevated troponin, secondary to respiratory failure. PLAN: I will obtain a 2D echo. MMODL / IJN: [id number] /
[2024-12-15 11:48] LABS: Glucose,Whole Blood 181 mg/dL (70-110)
--- NOTE | 2024-12-15 13:07 | P.PN ---
Subjective Progress Note Date: 12/15/24 The patient continues to be intubated on the ventilator and she is on IV propofol as well as IV fentanyl according to the nurse the patient was following commands even being on sedation. Objective - Vital Signs Vital signs: Vital Signs Temp 97.8 F 12/15/24 12:00 Pulse 74 12/15/24 12:00 Resp 20 12/15/24 12:00 BP 120/57 12/15/24 10:00 Pulse Ox 97 12/15/24 12:00 FiO2 50 12/15/24 12:00 Intake & Output 12/14/24 12/15/24 12/15/24 18:59 06:59 18:59 Intake Total 269.303 2433.019 1206.199 Output Total 2180 1370 299 Balance -4212.834 6124.019 907.199 Weight 68.6 kg 68.6 kg Intake: IV 390 1790 1175 Cefepime 2 gm In Sodium 100 100 Chloride 0.9% 100 ml @ 25 mls/hr IVPB Q8H DEX Rx#: [id number] Lactated Ringers 1,000 ml 390 1690 375 @ 75 mls/hr IV .[id number] DEX Rx#:[id number] Magnesium Sulfate-D5w Pmx 200 1 gm In Dextrose/Water 1 100ml.bag @ 100 mls/hr IVPB Q1H DEX Rx#: [id number] Vancomycin 1,500 mg In 500 Sodium Chloride 0.9% 500 ml 500 ml @ 167 mls/hr IVPB Q12HR DEX Rx#: [id number] Intake, IV Titration 400.460 635.019 31.199 Amount Norepinephrine 8 mg In 98.749 66.655 Sodium Chloride 0.9% 250 ml @ 0.03 MCG/KG/MIN 4. 213 mls/hr IV .Q24H DEX Rx#:[id number] fentaNYL (PF). 1,000 mcg 46.754 In Sodium Chloride 0.9% 80 ml @ 0.5 MCG/KG/HR 3. 629 mls/hr IV .Q24H DEX Rx#:[id number] fentaNYL (PF). 1,000 mcg 4.839 207.683 In Sodium Chloride 0.9% 80 ml @ 0.5 MCG/KG/HR 3. 629 mls/hr IV .Q24H DEX Rx#:[id number] propofoL 1,000 mg In 250.118 360.681 31.199 Empty Bag 1 bag @ 15 MCG/ KG/MIN 6.532 mls/hr IV . [id number] DEX Rx#:[id number] Oral 110 Tube Feeding 0 Output: Urine 2180 1370 299 Uretheral (Griffin) 930 Other: Voiding Method Indwelling Catheter Indwelling Catheter # Bowel Movements 0 ABP, PAP, CO, CI - Last Documented Arterial Blood Pressure 139/55 - Exam General: Lying in bed and does not appear in acute distress. HENT: Supple neck. Lung: Intubated on a ventilator. Neuro: Limited. On IV propofol 50mcg/kg/min and Fentanyl 1 mcg/kg/hr. Severely drowsy. She does not follow commands. No facial weakness noted. I manually opened her eyes and pupils are round about 4 mm and reactive to light. Motor: No spontaneous movement. With painful stimuli in the lower extremity patient withdraws. Some of the workup this hospital visit consisted of: Patient is afebrile White blood cell is 39.7 thousand predominantly neutrophilic. Initial POC glucose is 241 Ammonia level 79 TSH is 3.650 Sodium is 135 Potassium is 5.3 Plasma lactic acid vein initial presentation 0.9. Urine drug screen is positive for tricyclic antidepressant as well as opiate. The head is negative for any acute process. I personally reviewed the CT of the head and I agree with report CT angiography of the head and neck is reported as no evidence of dissection of cervical internal carotid artery or vertebral artery. No evidence of significant/flow-limiting stenosis at the carotid bifurcation. No evidence of intracranial high-grade stenosis or intracranial aneurysm. The EEG is abnormal during awake and drowsy state. The background slowing is suggestive of moderate encephalopathy likely due to toxic metabolic derangement as well as medication induced (IV Propofol). Otherwise there is no focal slowing, epileptiform discharge or seizure on the EEG. - Labs CBC & Chem 7: 12/15/24 04:11 12/15/24 04:11 Labs: Abnormal Lab Results - Last 24 Hours (Table) 12/14/24 12/14/24 12/14/24 Range/Units 10:15 14:39 15:34 WBC (3.8-10.6) k/uL RBC (3.80-5.40) m/uL Hgb (11.4-16.0) gm/dL Hct (34.0-46.0) % MCHC (31.0-37.0) g/dL Neutrophils # (1.3-7.7) k/uL Lymphocytes # (1.0-4.8) k/uL ABG pCO2 (35-45) mmHg ABG HCO3 (21-25) mmol/L ABG Total CO2 (19-24) mmol/L ABG O2 Saturation (94-97) % Hemoglobin (11.4-16.0) gm/dL Sodium 136 L (137-145) mmol/L Potassium 2.4 L* (3.5-5.1) mmol/L Chloride 117 H (98-107) mmol/L Carbon Dioxide 16 L (22-30) mmol/L BUN 5 L (7-17) mg/dL Creatinine 0.26 L (0.52-1.04) mg/dL Glucose (74-99) mg/dL POC Glucose (mg/dL) 164 H (70-110) mg/dL Calcium 5.0 L* (8.4-10.2) mg/dL Magnesium 1.3 L (1.6-2.3) mg/dL Alkaline Phosphatase 37 L (38-126) U/L Total Protein 3.4 L (6.3-8.2) g/dL Albumin 1.5 L (3.5-5.0) g/dL Procalcitonin (0.02-0.50) ng/mL 12/14/24 12/14/24 12/14/24 Range/Units 16:09 17:18 17:18 WBC 16.2 H (3.8-10.6) k/uL RBC 3.15 L (3.80-5.40) m/uL Hgb 8.2 L (11.4-16.0) gm/dL Hct 27.6 L (34.0-46.0) % MCHC 29.9 L (31.0-37.0) g/dL Neutrophils # (1.3-7.7) k/uL Lymphocytes # (1.0-4.8) k/uL ABG pCO2 (35-45) mmHg ABG HCO3 (21-25) mmol/L ABG Total CO2 (19-24) mmol/L ABG O2 Saturation (94-97) % Hemoglobin (11.4-16.0) gm/dL Sodium (137-145) mmol/L Potassium (3.5-5.1) mmol/L Chloride (98-107) mmol/L Carbon Dioxide (22-30) mmol/L BUN (7-17) mg/dL Creatinine 0.40 L (0.52-1.04) mg/dL Glucose 181 H (74-99) mg/dL POC Glucose (mg/dL) 197 H (70-110) mg/dL Calcium (8.4-10.2) mg/dL Magnesium (1.6-2.3) mg/dL Alkaline Phosphatase (38-126) U/L Total Protein 5.8 L (6.3-8.2) g/dL Albumin 3.0 L (3.5-5.0) g/dL Procalcitonin (0.02-0.50) ng/mL 12/14/24 12/15/24 12/15/24 Range/Units 18:26 00:09 02:17 WBC (3.8-10.6) k/uL RBC (3.80-5.40) m/uL Hgb (11.4-16.0) gm/dL Hct (34.0-46.0) % MCHC (31.0-37.0) g/dL Neutrophils # (1.3-7.7) k/uL Lymphocytes # (1.0-4.8) k/uL ABG pCO2 (35-45) mmHg ABG HCO3 (21-25) mmol/L ABG Total CO2 (19-24) mmol/L ABG O2 Saturation (94-97) % Hemoglobin (11.4-16.0) gm/dL Sodium (137-145) mmol/L Potassium (3.5-5.1) mmol/L Chloride (98-107) mmol/L Carbon Dioxide (22-30) mmol/L BUN (7-17) mg/dL Creatinine (0.52-1.04) mg/dL Glucose (74-99) mg/dL POC Glucose (mg/dL) 209 H 224 H 216 H (70-110) mg/dL Calcium (8.4-10.2) mg/dL Magnesium (1.6-2.3) mg/dL Alkaline Phosphatase (38-126) U/L Total Protein (6.3-8.2) g/dL Albumin (3.5-5.0) g/dL Procalcitonin (0.02-0.50) ng/mL 12/15/24 12/15/24 12/15/24 Range/Units 04:11 04:11 04:11 WBC 14.1 H (3.8-10.6) k/uL RBC 2.90 L (3.80-5.40) m/uL Hgb 7.7 L (11.4-16.0) gm/dL Hct 25.0 L (34.0-46.0) % MCHC 30.7 L (31.0-37.0) g/dL Neutrophils # 12.9 H (1.3-7.7) k/uL Lymphocytes # 0.7 L (1.0-4.8) k/uL ABG pCO2 (35-45) mmHg ABG HCO3 (21-25) mmol/L ABG Total CO2 (19-24) mmol/L ABG O2 Saturation (94-97) % Hemoglobin (11.4-16.0) gm/dL Sodium (137-145) mmol/L Potassium (3.5-5.1) mmol/L Chloride (98-107) mmol/L Carbon Dioxide (22-30) mmol/L BUN (7-17) mg/dL Creatinine 0.37 L (0.52-1.04) mg/dL Glucose 167 H (74-99) mg/dL POC Glucose (mg/dL) (70-110) mg/dL Calcium (8.4-10.2) mg/dL Magnesium 1.4 L (1.6-2.3) mg/dL Alkaline Phosphatase (38-126) U/L Total Protein (6.3-8.2) g/dL Albumin (3.5-5.0) g/dL Procalcitonin 30.70 H (0.02-0.50) ng/mL 12/15/24 12/15/24 12/15/24 Range/Units 04:58 06:30 11:47 WBC (3.8-10.6) k/uL RBC (3.80-5.40) m/uL Hgb (11.4-16.0) gm/dL Hct (34.0-46.0) % MCHC (31.0-37.0) g/dL Neutrophils # (1.3-7.7) k/uL Lymphocytes # (1.0-4.8) k/uL ABG pCO2 46 H (35-45) mmHg ABG HCO3 29 H (21-25) mmol/L ABG Total CO2 31 H (19-24) mmol/L ABG O2 Saturation 98.1 H (94-97) % Hemoglobin 7.5 L (11.4-16.0) gm/dL Sodium (137-145) mmol/L Potassium (3.5-5.1) mmol/L Chloride (98-107) mmol/L Carbon Dioxide (22-30) mmol/L BUN (7-17) mg/dL Creatinine (0.52-1.04) mg/dL Glucose (74-99) mg/dL POC Glucose (mg/dL) 191 H 181 H (70-110) mg/dL Calcium (8.4-10.2) mg/dL Magnesium (1.6-2.3) mg/dL Alkaline Phosphatase (38-126) U/L Total Protein (6.3-8.2) g/dL Albumin (3.5-5.0) g/dL Procalcitonin (0.02-0.50) ng/mL Microbiology - Last 24 Hours (Table) 12/13/24 19:17 Gram Stain - Preliminary Sputum Sputum Culture - Preliminary Presumptive Staph aureus Assessment and Plan Assessment: This is a 64-year-old woman who presents from her nursing facility because patient is unresponsive. She was found to have a fever of 102F and during this hospital visit her leukocytosis is as high as 39K. Intubated on a ventilator. Has elevated ammonia level. X-ray is suggestive of possible pneumonia Altered mental status seems due to septic encephalopathy. Appears pneumonia. Also has some component of metabolic encephalopathy with elevated ammonia. Routine EEG shows moderate encephalopathy but no seizure or discharges Pneumonia Slightly elevated ammonia level of 79 Acute hypoxemic and hypercapnic respiratory failure status post intubated on the ventilator Underlying history of atrial fibrillation on Xarelto History of seizure on Keppra History of stroke/TIA History of hypertension Hyperlipidemia History of coronary artery disease History of Crohn's disease History of COPD on home oxygen History of polysubstance abuse and the current urine drug screen is positive for TCA as well as opiates Plan: Patient is currently on vancomycin as well as cefepime. Infection diseases on board and I will defer modification of antibiotic to them. I spoke with infectious disease team yesterday and we agreed to hold off on lumbar puncture since this seems more pneumonia and not meningeal encephalitis. Also per the nurse the patient was following some simple commands to her today. Will defer the rest of the medical management to primary other specialist The plan is discussed with the ICU nurse Time with Patient: Less than 30
--- NOTE | 2024-12-15 14:10 | P.PN ---
Subjective Progress Note Date: 12/15/24 Principal diagnosis: Reason for follow-up is sepsis/pneumonia Patient is a 64-year-old female with a past medical history significant for hypertension hyperlipidemia osteoarthritis COPD CVA TIA coronary artery disease patient has been brought into the hospital from a local detention unresponsive, patient did have a fever abnormal x-ray concerning for possible pneumonia/sepsis. On today's evaluation that is 12/15/2024, Patient is afebrile this morning patient remains to be debated on the vent FiO2 currently at 50% no significant purulent secretion through the ET patient is hemodynamically stable not requiring any pressor support and no diarrhea. The patient white count is down to 14.1 creatinine 0.37 sputum is growing presented Staph aureus Objective - Vital Signs Vital signs: Vital Signs Temp 97.8 F 12/15/24 12:00 Pulse 74 12/15/24 12:00 Resp 20 12/15/24 12:00 BP 120/57 12/15/24 10:00 Pulse Ox 97 12/15/24 12:00 FiO2 50 12/15/24 12:00 Intake & Output 12/14/24 12/15/24 12/15/24 18:59 06:59 18:59 Intake Total 210.427 3431.019 1206.199 Output Total 2180 1370 299 Balance -7822.983 2221.019 907.199 Weight 68.6 kg 68.6 kg Intake: IV 390 1790 1175 Cefepime 2 gm In Sodium 100 100 Chloride 0.9% 100 ml @ 25 mls/hr IVPB Q8H DEX Rx#: [id number] Lactated Ringers 1,000 ml 390 1690 375 @ 75 mls/hr IV .[id number] DEX Rx#:[id number] Magnesium Sulfate-D5w Pmx 200 1 gm In Dextrose/Water 1 100ml.bag @ 100 mls/hr IVPB Q1H DEX Rx#: [id number] Vancomycin 1,500 mg In 500 Sodium Chloride 0.9% 500 ml 500 ml @ 167 mls/hr IVPB Q12HR DEX Rx#: [id number] Intake, IV Titration 400.460 635.019 31.199 Amount Norepinephrine 8 mg In 98.749 66.655 Sodium Chloride 0.9% 250 ml @ 0.03 MCG/KG/MIN 4. 213 mls/hr IV .Q24H DEX Rx#:[id number] fentaNYL (PF). 1,000 mcg 46.754 In Sodium Chloride 0.9% 80 ml @ 0.5 MCG/KG/HR 3. 629 mls/hr IV .Q24H DEX Rx#:[id number] fentaNYL (PF). 1,000 mcg 4.839 207.683 In Sodium Chloride 0.9% 80 ml @ 0.5 MCG/KG/HR 3. 629 mls/hr IV .Q24H DEX Rx#:[id number] propofoL 1,000 mg In 250.118 360.681 31.199 Empty Bag 1 bag @ 15 MCG/ KG/MIN 6.532 mls/hr IV . [id number] DEX Rx#:[id number] Oral 110 Tube Feeding 0 Output: Urine 2180 1370 299 Uretheral (Griffin) 930 Other: Voiding Method Indwelling Catheter Indwelling Catheter # Bowel Movements 0 ABP, PAP, CO, CI - Last Documented Arterial Blood Pressure 139/55 - Exam GENERAL DESCRIPTION: An elderly female intubated on the vent RESPIRATORY SYSTEM: Unlabored breathing , decreased breath sounds at bases HEART: S1 S2 regular rate and rhythm , ABDOMEN: Soft , no tenderness EXTREMITIES: No edema feet - Labs CBC & Chem 7: 12/15/24 04:11 12/15/24 04:11 Labs: Abnormal Lab Results - Last 24 Hours (Table) 12/14/24 12/14/24 12/14/24 Range/Units 14:39 15:34 16:09 WBC (3.8-10.6) k/uL RBC (3.80-5.40) m/uL Hgb (11.4-16.0) gm/dL Hct (34.0-46.0) % MCHC (31.0-37.0) g/dL Neutrophils # (1.3-7.7) k/uL Lymphocytes # (1.0-4.8) k/uL ABG pCO2 (35-45) mmHg ABG HCO3 (21-25) mmol/L ABG Total CO2 (19-24) mmol/L ABG O2 Saturation (94-97) % Hemoglobin (11.4-16.0) gm/dL Creatinine (0.52-1.04) mg/dL Glucose (74-99) mg/dL POC Glucose (mg/dL) 164 H 197 H (70-110) mg/dL Magnesium 1.3 L (1.6-2.3) mg/dL Total Protein (6.3-8.2) g/dL Albumin (3.5-5.0) g/dL Procalcitonin (0.02-0.50) ng/mL 12/14/24 12/14/24 12/14/24 Range/Units 17:18 17:18 18:26 WBC 16.2 H (3.8-10.6) k/uL RBC 3.15 L (3.80-5.40) m/uL Hgb 8.2 L (11.4-16.0) gm/dL Hct 27.6 L (34.0-46.0) % MCHC 29.9 L (31.0-37.0) g/dL Neutrophils # (1.3-7.7) k/uL Lymphocytes # (1.0-4.8) k/uL ABG pCO2 (35-45) mmHg ABG HCO3 (21-25) mmol/L ABG Total CO2 (19-24) mmol/L ABG O2 Saturation (94-97) % Hemoglobin (11.4-16.0) gm/dL Creatinine 0.40 L (0.52-1.04) mg/dL Glucose 181 H (74-99) mg/dL POC Glucose (mg/dL) 209 H (70-110) mg/dL Magnesium (1.6-2.3) mg/dL Total Protein 5.8 L (6.3-8.2) g/dL Albumin 3.0 L (3.5-5.0) g/dL Procalcitonin (0.02-0.50) ng/mL 12/15/24 12/15/24 12/15/24 Range/Units 00:09 02:17 04:11 WBC 14.1 H (3.8-10.6) k/uL RBC 2.90 L (3.80-5.40) m/uL Hgb 7.7 L (11.4-16.0) gm/dL Hct 25.0 L (34.0-46.0) % MCHC 30.7 L (31.0-37.0) g/dL Neutrophils # 12.9 H (1.3-7.7) k/uL Lymphocytes # 0.7 L (1.0-4.8) k/uL ABG pCO2 (35-45) mmHg ABG HCO3 (21-25) mmol/L ABG Total CO2 (19-24) mmol/L ABG O2 Saturation (94-97) % Hemoglobin (11.4-16.0) gm/dL Creatinine (0.52-1.04) mg/dL Glucose (74-99) mg/dL POC Glucose (mg/dL) 224 H 216 H (70-110) mg/dL Magnesium (1.6-2.3) mg/dL Total Protein (6.3-8.2) g/dL Albumin (3.5-5.0) g/dL Procalcitonin (0.02-0.50) ng/mL 12/15/24 12/15/24 12/15/24 Range/Units 04:11 04:11 04:58 WBC (3.8-10.6) k/uL RBC (3.80-5.40) m/uL Hgb (11.4-16.0) gm/dL Hct (34.0-46.0) % MCHC (31.0-37.0) g/dL Neutrophils # (1.3-7.7) k/uL Lymphocytes # (1.0-4.8) k/uL ABG pCO2 46 H (35-45) mmHg ABG HCO3 29 H (21-25) mmol/L ABG Total CO2 31 H (19-24) mmol/L ABG O2 Saturation 98.1 H (94-97) % Hemoglobin 7.5 L (11.4-16.0) gm/dL Creatinine 0.37 L (0.52-1.04) mg/dL Glucose 167 H (74-99) mg/dL POC Glucose (mg/dL) (70-110) mg/dL Magnesium 1.4 L (1.6-2.3) mg/dL Total Protein (6.3-8.2) g/dL Albumin (3.5-5.0) g/dL Procalcitonin 30.70 H (0.02-0.50) ng/mL 12/15/24 12/15/24 Range/Units 06:30 11:47 WBC (3.8-10.6) k/uL RBC (3.80-5.40) m/uL Hgb (11.4-16.0) gm/dL Hct (34.0-46.0) % MCHC (31.0-37.0) g/dL Neutrophils # (1.3-7.7) k/uL Lymphocytes # (1.0-4.8) k/uL ABG pCO2 (35-45) mmHg ABG HCO3 (21-25) mmol/L ABG Total CO2 (19-24) mmol/L ABG O2 Saturation (94-97) % Hemoglobin (11.4-16.0) gm/dL Creatinine (0.52-1.04) mg/dL Glucose (74-99) mg/dL POC Glucose (mg/dL) 191 H 181 H (70-110) mg/dL Magnesium (1.6-2.3) mg/dL Total Protein (6.3-8.2) g/dL Albumin (3.5-5.0) g/dL Procalcitonin (0.02-0.50) ng/mL Microbiology - Last 24 Hours (Table) 12/13/24 19:00 Blood Culture - Preliminary Blood 12/13/24 19:17 Gram Stain - Preliminary Sputum Sputum Culture - Preliminary Presumptive Staph aureus Assessment and Plan (1) Pneumonia Current Visit: Yes Status: Acute Code(s): J18.9 - PNEUMONIA, UNSPECIFIED O RGANISM SNOMED Code(s): 991901108 (2) Sepsis Current Visit: Yes Status: Acute Code(s): A41.9 - SEPSIS, UNSPECIFIED ORGANISM SNOMED Code(s): 89554732 Plan: 1patient presented to hospital with sepsis in this patient who did have fever of 103 F reported by the EMS tachycardia elevated white count meeting criteria for SIRS/sepsis source likely pneumonia as no evidence of any cellulitis abdominal tenderness UA has been reported negative and will need to cover for the resistant gram-positive as well as gram-negative pathogen 2-blood cultures currently pending sputum is growing Staph aureus sensitivities pending 3-patient to continue with cefepime and vancomycin while waiting for the culture to finalize and monitor clinical course closely Dictation was produced using [employer] dictation software. please excuse any grammatical, word or spelling errors. Time with Patient: Less than 30
--- NOTE | 2024-12-15 16:08 | P.PN ---
Subjective Progress Note Date: 12/15/24 Patient is a 64-year-old female with past medical history significant for atrial fibrillation anticoagulated on Xarelto, coronary artery disease, hypertension, hyperlipidemia, CVA/TIA, seizure disorder, polysubstance abuse, GERD, Crohn's disease, COPD, home O2 dependence, among other things. Patient currently intubated mechanical ventilator unable to provide information. According to the ER documentation patient was sent in from [facility]. Noted to be minimally responsive and did require bag mask ventilation. Intubated on arrival in the emergency department. Workup in the ED including a chest x-ray which shows the endotracheal tube terminating approximately 4 cm above the della. Enteric tube coursing below the diaphragm. Right IJ central line catheter with the tip terminating near the cavoatrial junction. Patchy opacities bilateral suggestive of multifocal pneumonia. CBC: WBC count elevated at 40, hemoglobin 9.2, platelets 461. CMP: Sodium 135, potassium 5.3, chloride 100, serum bicarb 32, BUN 16, creatinine 0.55, glucose 206. Lactic 0.9. LFTs not elevated. Ammonia 79. Troponin less than 0.012 and then 0.05. NT proBNP 256. Brain CT did not show any acute intracranial process, no acute intraparenchymal hemorrhage or mass effect. CT of the head and neck did not show any evidence of dissection of the cervical internal carotid arteries or vertebral arteries. No evidence of significant flow-limiting stenosis at the carotid bifurcation. No evidence of intracranial high-grade stenosis or intracranial aneurysm. Urine toxicology screen positive for opiates and tricyclic antidepressants. Urinalysis unremarkable for UTI. Initial ABG following intubation done on FiO2 of 100% showing a PaO2 of 215, pCO2 65, pH of 7.25. Patient currently being seen in the emergency department, trauma bay 2. Remains intubated mechanical ventilator with current ventilator settings assist-control, respiratory rate 20, tidal volume 450, FiO2 70%, PEEP of 5. Most recent ABGs from this morning done on the settings show improvement in the patient's acid-base balance and there is a PaO2 of 193, pCO2 of 42, pH of 7.46. FiO2 was per appropriately dropped to 50%. Peak airway pressure 32 with a static pressure of 16, indicating some component of airway resistance. Patient is currently synchronous with set rate. Sedated on propofol which is infusing at 30 mcg/kg/min. Fentanyl is also infusing at 0.5 mcg/kg/h. Previously fluid resuscitated with 2 L lactated Ringer's IV bolus and continues with Lactated Ringer's infusing at 130 mL/h. Blood pressure remained hypotensive despite fluid resuscitation and started on low-dose norepinephrine which is infusing at 0.07 mcg/kg/min. Patient is awaiting a bed in the intensive care unit On 12/15/2024, the patient is being seen for a follow-up. Remains intubated on the mechanical ventilator. This morning, the patient is on propofol running at 50 mcg/kg/min and fentanyl is running at 1 mcg/kg/h. The patient is on assist-control mode of mechanical ventilation at rate of 20, tidal volume of 450, FiO2 50% with a PEEP of 5. Blood gas showed a pH of 7.41 with a pCO2 46 and pO2 of 95. The follow-up chest x-ray was done this morning and the patient continues to have volume loss in the right lung base along with atelectatic changes in the right lung base and possibly some consolidation effusion. The patient also has cardiomegaly and background COPD. A CAT scan of the chest was also completed yesterday and the patient was found to have advanced emphysematous changes bilaterally with upper lobe predominance. There is also small bilateral pleural effusion right more than left, right basilar consolidation/atelectasis and an abrupt cutoff sign in the right lower lobe bronchus. Obviously, this needs to be further investigated and the patient will need a bronchoscopy to evaluate the patency of the right lower lobe. WBC count is at 14.1, hemoglobin 7.7 and the platelet count is up to 73. Sodium is at 137, potassium 3.8, BUN is 9 with a creatinine of 0.37. In terms of antibiotic coverage, the patient is on IV cefepime and vancomycin. The sputum sample is showing presumptive staff aureus. ID is on the case. Objective - Vital Signs Vital signs: Vital Signs Temp 98.2 F 12/15/24 08:00 Pulse 78 12/15/24 09:15 Resp 20 12/15/24 09:15 BP 127/64 12/15/24 09:00 Pulse Ox 97 12/15/24 09:15 FiO2 50 12/15/24 09:00 Intake & Output 12/14/24 12/15/24 12/15/24 18:59 06:59 18:59 Intake Total 508.207 6936.019 481.199 Output Total 2180 1370 150 Balance -7214.255 2670.019 331.199 Weight 68.6 kg Intake: IV 390 1790 450 Cefepime 2 gm In Sodium 100 100 Chloride 0.9% 100 ml @ 25 mls/hr IVPB Q8H DEX Rx#: [id number] Lactated Ringers 1,000 ml 390 1690 150 @ 75 mls/hr IV .[id number] DEX Rx#:[id number] Magnesium Sulfate-D5w Pmx 200 1 gm In Dextrose/Water 1 100ml.bag @ 100 mls/hr IVPB Q1H DEX Rx#: [id number] Intake, IV Titration 400.460 635.019 31.199 Amount Norepinephrine 8 mg In 98.749 66.655 Sodium Chloride 0.9% 250 ml @ 0.03 MCG/KG/MIN 4. 213 mls/hr IV .Q24H DEX Rx#:[id number] fentaNYL (PF). 1,000 mcg 46.754 In Sodium Chloride 0.9% 80 ml @ 0.5 MCG/KG/HR 3. 629 mls/hr IV .Q24H DEX Rx#:[id number] fentaNYL (PF). 1,000 mcg 4.839 207.683 In Sodium Chloride 0.9% 80 ml @ 0.5 MCG/KG/HR 3. 629 mls/hr IV .Q24H DEX Rx#:[id number] propofoL 1,000 mg In 250.118 360.681 31.199 Empty Bag 1 bag @ 15 MCG/ KG/MIN 6.532 mls/hr IV . [id number] DEX Rx#:[id number] Oral 110 Tube Feeding 0 Output: Urine 2180 1370 150 Uretheral (Griffin) 930 Other: Voiding Method Indwelling Catheter Indwelling Catheter # Bowel Movements 0 ABP, PAP, CO, CI - Last Documented Arterial Blood Pressure 122/48 - Exam GENERAL EXAM: Sedated, 64-year-old female, intubated mechanical ventilator, calm and comfortable, sedated with a combination of propofol and fentanyl HEAD: Normocephalic and atraumatic EYES: Normal reaction of pupils, equal size. NOSE: Clear with pink turbinates. THROAT: No erythema or exudates. NECK: No masses, no JVD. Right IJ central line catheter secured in place CHEST: No chest wall deformity. LUNGS: Equal air entry with scattered rhonchi. Intubated mechanical ventilator. CVS: S1 and S2 normal with no audible murmur, regular rhythm. No extra heart sounds ABDOMEN: No hepatosplenomegaly, active bowel sounds, no guarding or rigidity. SPINE: No scoliosis or deformity SKIN: No rashes CENTRAL NERVOUS SYSTEM: Sedated, does not follow commands, withdraws to pain in all 4 extremities EXTREMITIES: There is no peripheral edema, clubbing, or cyanosis. Peripheral pulses are intact. - Labs CBC & Chem 7: 12/15/24 04:11 12/15/24 04:11 Labs: Abnormal Lab Results - Last 24 Hours (Table) 12/14/24 12/14/24 12/14/24 Range/Units 10:15 14:39 15:34 WBC (3.8-10.6) k/uL RBC (3.80-5.40) m/uL Hgb (11.4-16.0) gm/dL Hct (34.0-46.0) % MCHC (31.0-37.0) g/dL Neutrophils # (1.3-7.7) k/uL Lymphocytes # (1.0-4.8) k/uL ABG pCO2 (35-45) mmHg ABG HCO3 (21-25) mmol/L ABG Total CO2 (19-24) mmol/L ABG O2 Saturation (94-97) % Hemoglobin (11.4-16.0) gm/dL Sodium 136 L (137-145) mmol/L Potassium 2.4 L* (3.5-5.1) mmol/L Chloride 117 H (98-107) mmol/L Carbon Dioxide 16 L (22-30) mmol/L BUN 5 L (7-17) mg/dL Creatinine 0.26 L (0.52-1.04) mg/dL Glucose (74-99) mg/dL POC Glucose (mg/dL) 164 H (70-110) mg/dL Calcium 5.0 L* (8.4-10.2) mg/dL Magnesium 1.3 L (1.6-2.3) mg/dL Alkaline Phosphatase 37 L (38-126) U/L Total Protein 3.4 L (6.3-8.2) g/dL Albumin 1.5 L (3.5-5.0) g/dL 12/14/24 12/14/24 12/14/24 Range/Units 16:09 17:18 17:18 WBC 16.2 H (3.8-10.6) k/uL RBC 3.15 L (3.80-5.40) m/uL Hgb 8.2 L (11.4-16.0) gm/dL Hct 27.6 L (34.0-46.0) % MCHC 29.9 L (31.0-37.0) g/dL Neutrophils # (1.3-7.7) k/uL Lymphocytes # (1.0-4.8) k/uL ABG pCO2 (35-45) mmHg ABG HCO3 (21-25) mmol/L ABG Total CO2 (19-24) mmol/L ABG O2 Saturation (94-97) % Hemoglobin (11.4-16.0) gm/dL Sodium (137-145) mmol/L Potassium (3.5-5.1) mmol/L Chloride (98-107) mmol/L Carbon Dioxide (22-30) mmol/L BUN (7-17) mg/dL Creatinine 0.40 L (0.52-1.04) mg/dL Glucose 181 H (74-99) mg/dL POC Glucose (mg/dL) 197 H (70-110) mg/dL Calcium (8.4-10.2) mg/dL Magnesium (1.6-2.3) mg/dL Alkaline Phosphatase (38-126) U/L Total Protein 5.8 L (6.3-8.2) g/dL Albumin 3.0 L (3.5-5.0) g/dL 12/14/24 12/15/24 12/15/24 Range/Units 18:26 00:09 02:17 WBC (3.8-10.6) k/uL RBC (3.80-5.40) m/uL Hgb (11.4-16.0) gm/dL Hct (34.0-46.0) % MCHC (31.0-37.0) g/dL Neutrophils # (1.3-7.7) k/uL Lymphocytes # (1.0-4.8) k/uL ABG pCO2 (35-45) mmHg ABG HCO3 (21-25) mmol/L ABG Total CO2 (19-24) mmol/L ABG O2 Saturation (94-97) % Hemoglobin (11.4-16.0) gm/dL Sodium (137-145) mmol/L Potassium (3.5-5.1) mmol/L Chloride (98-107) mmol/L Carbon Dioxide (22-30) mmol/L BUN (7-17) mg/dL Creatinine (0.52-1.04) mg/dL Glucose (74-99) mg/dL POC Glucose (mg/dL) 209 H 224 H 216 H (70-110) mg/dL Calcium (8.4-10.2) mg/dL Magnesium (1.6-2.3) mg/dL Alkaline Phosphatase (38-126) U/L Total Protein (6.3-8.2) g/dL Albumin (3.5-5.0) g/dL 12/15/24 12/15/24 12/15/24 Range/Units 04:11 04:11 04:58 WBC 14.1 H (3.8-10.6) k/uL RBC 2.90 L (3.80-5.40) m/uL Hgb 7.7 L (11.4-16.0) gm/dL Hct 25.0 L (34.0-46.0) % MCHC 30.7 L (31.0-37.0) g/dL Neutrophils # 12.9 H (1.3-7.7) k/uL Lymphocytes # 0.7 L (1.0-4.8) k/uL ABG pCO2 46 H (35-45) mmHg ABG HCO3 29 H (21-25) mmol/L ABG Total CO2 31 H (19-24) mmol/L ABG O2 Saturation 98.1 H (94-97) % Hemoglobin 7.5 L (11.4-16.0) gm/dL Sodium (137-145) mmol/L Potassium (3.5-5.1) mmol/L Chloride (98-107) mmol/L Carbon Dioxide (22-30) mmol/L BUN (7-17) mg/dL Creatinine 0.37 L (0.52-1.04) mg/dL Glucose 167 H (74-99) mg/dL POC Glucose (mg/dL) (70-110) mg/dL Calcium (8.4-10.2) mg/dL Magnesium 1.4 L (1.6-2.3) mg/dL Alkaline Phosphatase (38-126) U/L Total Protein (6.3-8.2) g/dL Albumin (3.5-5.0) g/dL 12/15/24 Range/Units 06:30 WBC (3.8-10.6) k/uL RBC (3.80-5.40) m/uL Hgb (11.4-16.0) gm/dL Hct (34.0-46.0) % MCHC (31.0-37.0) g/dL Neutrophils # (1.3-7.7) k/uL Lymphocytes # (1.0-4.8) k/uL ABG pCO2 (35-45) mmHg ABG HCO3 (21-25) mmol/L ABG Total CO2 (19-24) mmol/L ABG O2 Saturation (94-97) % Hemoglobin (11.4-16.0) gm/dL Sodium (137-145) mmol/L Potassium (3.5-5.1) mmol/L Chloride (98-107) mmol/L Carbon Dioxide (22-30) mmol/L BUN (7-17) mg/dL Creatinine (0.52-1.04) mg/dL Glucose (74-99) mg/dL POC Glucose (mg/dL) 191 H (70-110) mg/dL Calcium (8.4-10.2) mg/dL Magnesium (1.6-2.3) mg/dL Alkaline Phosphatase (38-126) U/L Total Protein (6.3-8.2) g/dL Albumin (3.5-5.0) g/dL Microbiology - Last 24 Hours (Table) 12/13/24 19:17 Gram Stain - Preliminary Sputum Sputum Culture - Preliminary Presumptive Staph aureus Assessment and Plan Assessment: Acute hypoxemic and hypercapnic respiratory failure, requiring intubation to the mechanical ventilator, chest x-ray shows the endotracheal tube terminating approximately 4.5 cm above the della. Enteric tube coursing below the diaphragm. Right IJ central line catheter with the tip terminating near the cavoatrial junction. Patchy opacities bilateral suggestive of multifocal pneumonia in addition to right basilar atelectasis, likely chronic. The patient has had previous bronchoscopy and infection with stenotrophomonas back in September 2024.. CAT scan of the chest done on 12/14/2024 showed small bilateral pleural effusion, diffuse emphysematous changes bilaterally with upper lobe predominance and the patient also has right basilar atelectasis/consolidation/volume loss along with an abrupt cut off sign in the right lower lobe bronchus. Rule out a endobronchial tumor/mass. Rule out mucous in the right lower lobe bronchus. Rule out lymph node causing mass effect on the right lower lobe bronchus. Further investigation with a bronchoscopy will be needed. Sputum sample is positive for Staph aureus. Acute COPD exacerbation with secondary respiratory failure Pneumonia/sepsis, rule out possibility of right lower lobe pneumonia/atelectasis. Sputum sample was positive for Staph aureus and the patient remains on a combination of cefepime and vancomycin Acute leukocytosis, secondary to above Refractory hypotension, suspect sepsis/septic shock, currently on low-dose norepinephrine which is running at 0.03 mcg/kg/min History of paroxysmal atrial fibrillation, anticoagulated on Xarelto, currently sinus mechanism Chronic anemia Chronic obstructive pulmonary disease Chronic hypoxemic respiratory failure History recent of bronchoscopy with BAL done October 02, 2024, microbiology positive for stenotrophomonas maltophilia at that time. History of hypertension History of hyperlipidemia Coronary artery disease History of CVA/TIA History of seizure disorder, on Keppra History of polysubstance abuse History of gastroesophageal reflux disease History of Crohn's disease Chronic nicotine dependence History of anxiety/depression/bipolar Plan: Continue vent support, no vent changes for today Continue bronchodilators Continue steroids Continue cefepime and vancomycin Awaiting final culture results from the sputum which is showing presumptive Staph aureus Will need a bronchoscopy to evaluate the patency of the right lower lobe bronchus CAT scan of the chest from 12/14/2024 was noted Continue norepinephrine to maintain a MAP above 65 mmHg or greater Continue anticoagulation with Xarelto Not ready for further wean at this point. For now, the plan is to proceed with a bronchoscopy to evaluate right lower lobe bronchus. Continue antibiotics. The patient will be started on enteral feeding for nutritional support. The patient is also on lactated Ringer at rate of 75 cc an hour. Will continue to follow. This evaluation is a critical care evaluation and this was done and 33 minutes. Time with Patient: Greater than 30
--- NOTE | 2024-12-15 17:02 | CA ---
Transthoracic Echo Report Name: Fabiola Giraldo Age: 64 Gender: F : 1960 Exam Date: 12/15/2024 15:11 Exam Location: [facility] Ht (in): 64 Wt (lb): 151 Ordering Physician: Navi Younger MD ([id number]) Attending/Referring Phys: Carisa THAO [employer] Work[employer] Padma Abarca RDCS Procedure CPT: Indications: troponin Cardiac Hx: Technical Quality: Fair Contrast 1: Total Dose (mL): Contrast 2: Total Dose (mL): MEASUREMENTS (Male / Female) Normal Values 2D ECHO LV Diastolic Diameter PLAX 4.9 cm 4.2 - 5.9 / 3.9 - 5.3 cm LV Systolic Diameter PLAX 3.4 cm IVS Diastolic Thickness 0.8 cm 0.6 - 1.0 / 0.6 - 0.9 cm LVPW Diastolic Thickness 1.1 cm 0.6 - 1.0 / 0.6 - 0.9 cm LV Relative Wall Thickness 0.4 LVOT Diameter 2.1 cm LA Volume 55.6 cm??? 18 - 58 / 22 - 52 cm??? LA Volume Index 31.4 cm???/m??? 16 - 28 cm???/m??? DOPPLER AV Peak Velocity 119.1 cm/s AV Peak Gradient 5.7 mmHg AV Mean Velocity 87.6 cm/s AV Mean Gradient 3.4 mmHg AV Velocity Time Integral 31.4 cm LVOT Peak Velocity 109.6 cm/s LVOT Peak Gradient 4.8 mmHg LVOT Velocity Time Integral 26.8 cm LVOT Stroke Volume 92.8 cm??? LVOT Stroke Volume Index 53.4 ml/m??? LVOT Cardiac Index 3924.7 cm???/min???m??? AV Area Cont Eq vti 3.0 cm??? AV Area Cont Eq pk 3.2 cm??? MV Area PHT 4.7 cm??? Mitral E Point Velocity 81.8 cm/s Mitral A Point Velocity 79.1 cm/s Mitral E to A Ratio 1.0 MV Deceleration Time 161.0 ms TR Peak Velocity 314.0 cm/s TR Peak Gradient 39.4 mmHg Right Atrial Pressure 20.0 mmHg Pulmonary Artery Systolic Pressu 59.4 mmHg Right Ventricular Systolic Press 59.4 mmHg PV Peak Velocity 84.6 cm/s PV Peak Gradient 2.9 mmHg FINDINGS Left Ventricle Left ventricular ejection fraction is estimated at 55-60 %. Mildly increased posterior wall thickness. Left ventricular cavity size normal. No obvious regional wall motion abnormalities. Right Ventricle Normal right ventricular size and function. Severe pulmonary hypertension. Right Atrium Right atrial dilatation. Left Atrium Mildly increased left atrial volume. Mildly increased left atrial area. Mitral Valve Structurally normal mitral valve. No evidence for mitral valve prolapse. No mitral stenosis. Trace mitral regurgitation. Aortic Valve Trileaflet aortic valve. Aortic valve sclerosis. No aortic valve stenosis or regurgitation. Tricuspid Valve Structurally normal tricuspid valve. No tricuspid stenosis. Mild to moderate tricuspid regurgitation. Pulmonic Valve Structurally normal pulmonic valve. No pulmonic stenosis. No pulmonic regurgitation. Pericardium No pericardial effusion. Aorta Aortic annulus normal. CONCLUSIONS Left ventricular ejection fraction 55-60% Mildly increased left ventricular wall thickness Trace mitral regurgitation Mild to moderate tricuspid regurgitation RVSP [id number] Previewed by: Dr. Omar Houston DO (Electronically Signed) Final Date: 15 December 2024 17:02
[2024-12-15 17:37] LABS: Glucose,Whole Blood 168 mg/dL (70-110)
[2024-12-15] MEDS: NOREPINEPHRINE 4 MG in SODIUM CHLORIDE 0.9% 250 ML IV SCH (17:45)
[2024-12-15] MEDS: LORazepam 1 MG/0.5 ML VIAL IV STA (21:47)
[2024-12-15 23:27] LABS: Glucose,Whole Blood 171 mg/dL (70-110)
[2024-12-16 04:26] LABS: Basophils % (A) 0 %; Eosinophils # (A) 0.1 k/uL (0-0.7); Eosinophils % (A) 1 %; HCT 22.5 % (34.0-46.0); Hypochromasia Moderate; Lymphocytes # (A) 0.7 k/uL (1.0-4.8); Lymphocytes % (A) 8 %; MCH 26.7 pg (25.0-35.0); MCHC 31.1 g/dL (31.0-37.0); Mean Platelet Volume 7.1; Monocytes # (A) 0.4 k/uL (0-1.0); Monocytes % (A) 5 %; Neutrophils # (A) 7.3 k/uL (1.3-7.7); Neutrophils % (A) 86 %; Platelet Count 237 k/uL (150-450); RBC 2.61 m/uL (3.80-5.40); RDW 15.1 % (11.5-15.5); WBC 8.4 k/uL (3.8-10.6)
[2024-12-16 04:30] LABS: ABG Base Excess 5.2 mmol/L; ABG HCO3 29 mmol/L (21-25); ABG Oxygen Saturation 96.9 % (94-97); ABG PCO2 38 mmHg (35-45); ABG PH 7.49 (7.35-7.45); ABG PO2 78 mmHg (83-108); ABG TCO2 30 mmol/L (19-24)
[2024-12-16 04:39] LABS: African American GFR (CKD) >90 (>60 ml/min/1.73 sqM); Anion Gap 2 mmol/L; Blood Urea Nitrogen 12 mg/dL (7-17); Calcium 8.4 mg/dL (8.4-10.2); Carbon Dioxide 28 mmol/L (22-30); Chloride 107 mmol/L (98-107); Glucose 147 mg/dL (74-99); Magnesium 1.8 mg/dL (1.6-2.3); Non-African American GFR(CKD) >90 (>60 ml/min/1.73 sqM); Sodium 137 mmol/L (137-145)
[2024-12-16 04:50] LABS: Potassium 3.5 mmol/L (3.5-5.1)
[2024-12-16] MEDS ORDERED: Potassium Replacement Protocol 1 EACH MISC MISCELLANE PRN (04:51)
[2024-12-16] MEDS: MAGNESIUM SULFATE-D5W PMX 1 GM in DEXTROSE/WATER 1 100ML.BAG IVPB ONE (05:18)
[2024-12-16] MEDS: POTASSIUM BICARBONATE/CIT AC 20 MEQ TABLET.EFF NG-TUBE SCH (05:19)
[2024-12-16 05:23] LABS: Allen Test Performed? no
[2024-12-16 05:33] LABS: Glucose,Whole Blood 151 mg/dL (70-110)
--- NOTE | 2024-12-16 05:54 | P.PN ---
Subjective Progress Note Date: 12/15/24 This is a 64-year-old female who presented to the emergency department from [facility] and was noted to be unresponsive and apparently per [facility] staff patient was baseline this morning. Patient also noted to have a 103 temp while at the facility and patient was transported here via EMS for further evaluation. Patient has a significant past medical history of atrial fibrillation, coronary artery disease, angina, COPD, previous CVA, GERD, hyperlipidemia, hypertension, osteoarthritis, seizure disorder, Crohn's disease, anxiety/bipolar depression, history of polysubstance abuse, continued ongoing nicotine dependence, past history of alcohol abuse. Patient with significant weakness had been at [facility] for quite some time and has had multiple hospitalizations for significant comorbidities. Patient labs reviewed on admission revealing a white count of 39.7, hemoglobin 9.2, platelets 461, ABG revealing a pH of 7.25, pCO2 elevated at 65, pO2 215, bicarb elevated at 29. Sodium was 135 with a potassium of 5.3, creatinine 0.55, blood sugars elevated, lactic acid 1.4, calcium 8.1, ammonia level 79, troponin 0.052, BNP 256, TSH 3.6, urinalysis negative, urine drug screen was positive for opiates and TCAs otherwise virology testing was all negative including RSV, COVID, influenza. Chest x-ray on admission showed patchy infiltrate opacities bilateral suggestive of multifocal pneumonia and patient is currently on mechanical ventilation. Brain CT showing no acute intracranial process, EKG showing sinus tachycardia with occasional PVCs possible atrial flutter although repeat EKG showing sinus tachycardia. Patient being admitted to ICU with pulmonary and neurology on consultation. 12/15/2024 Patient is seen in follow-up today continues in the ICU on mechanical ventilation with to a 50% and PEEP is 5. No plans of weaning at this time and discussing the need for bronchoscopy. Preliminary sputum culture showing Staph aureus and maintained on cefepime with infectious disease following. Patient is also maintained on steroids and will continue with sliding scale and adjust insulins accordingly. REVIEW OF SYSTEMS: Unable to assess as patient is on mechanical ventilation The rest of the 14-point review of systems is negative. Active Medications Acetaminophen (Acetaminophen Suppository 650 Mg Supp) 650 mg RECTAL Q4HR PRN PRN Reason: Fever And/ Or Mild Pain Albuterol/Ipratropium (Ipratropium-Albuterol 3 Ml Neb) 3 ml INHALATION RT-Q4H PRN PRN Reason: Shortness Of Breath Or Wheezing Albuterol/Ipratropium (Ipratropium-Albuterol 3 Ml Neb) 3 ml INHALATION RT-QID DEX Last Admin: 12/15/24 19:49 Dose: 3 ml Budesonide (Budesonide 1 Mg/2 Ml Nebu) 1 mg INHALATION RT-BID DEX Last Admin: 12/15/24 19:49 Dose: 1 mg Dextrose/Water (Dextrose 50% Syringe 50 Ml) 25 ml IVP PER PROTOCOL PRN; Protocol PRN Reason: Hypoglycemia Dextrose/Water (Dextrose 50% Syringe 50 Ml) 50 ml IVP PER PROTOCOL PRN; Protocol PRN Reason: Hypoglycemia Escitalopram Oxalate (Escitalopram 10 Mg Tab) 10 mg OG-TUBE DAILY [facility] Last Admin: 12/15/24 09:36 Dose: 10 mg Fentanyl Citrate (Fentanyl (Pf) 50 Mcg/Ml 2 Ml Amp) 50 mcg IVP Q2HR PRN PRN Reason: Severe Pain (Scale 7 to 10) Last Admin: 12/14/24 12:07 Dose: 50 mcg Formoterol Fumarate (Formoterol Fumarate 20 Mcg/2 Ml Nebu) 20 mcg INHALATION RT-BID DEX Last Admin: 12/15/24 19:49 Dose: 20 mcg Propofol 1,000 mg/ IV Solution 100 mls @ 6.532 mls/hr IV .[id number] DEX; Protocol Last Admin: 12/16/24 03:49 Dose: 50 mcg/kg/min, 21.773 mls/hr Lactated Ringer's (Lactated Ringers) 1,000 mls @ 75 mls/hr IV .[id number] DEX Last Admin: 12/16/24 00:26 Dose: Not Given Cefepime HCl 2 gm/ Sodium (Chloride) 100 mls @ 25 mls/hr IVPB Q8H DEX; Protocol Last Admin: 12/16/24 03:50 Dose: 25 mls/hr Fentanyl Citrate 1,000 mcg/ (Sodium Chloride) 100 mls @ 3.629 mls/hr IV .Q24H DEX; Protocol Last Admin: 12/15/24 23:31 Dose: 2 mcg/kg/hr, 14.515 mls/hr Vancomycin HCl 1,500 mg/ (Sodium Chloride) 500 mls @ 167 mls/hr IVPB Q12HR [facility] Last Admin: 12/15/24 20:35 Dose: 167 mls/hr Norepinephrine Bitartrate 4 mg (/ Sodium Chloride) 254 mls @ 7.841 mls/hr IV .Q24H [facility]; Protocol Last Titration: 12/15/24 19:41 Dose: 0 mcg/kg/min, 0 mls/hr Magnesium Sulfate/Dextrose 1 (gm/ IV Solution) 100 mls @ 100 mls/hr IVPB ONCE ONE; Protocol Stop: 12/16/24 05:59 Last Admin: 12/16/24 05:18 Dose: 100 mls/hr Insulin Human Lispro (Insulin Lispro (Humalog) 100 Unit/Ml 10 Ml Vl) 0 unit SQ Q6HR [facility]; Protocol Last Admin: 12/16/24 05:17 Dose: Not Given Lactulose (Lactulose 20 Gm/30 Ml Cup) 20 gm PO BID [facility] Last Admin: 12/15/24 20:33 Dose: Not Given Levetiracetam (Levetiracetam 500 Mg Tab) 1,000 mg PO BID@0700,1900 [facility] Last Admin: 12/16/24 05:18 Dose: 1,000 mg Methylprednisolone Sodium Succinate (Methylprednisolone Sod Succi 125 Mg/2 Ml Vial) 60 mg IV Q6HR [facility] Last Admin: 12/16/24 05:19 Dose: 60 mg Metoprolol Succinate (Metoprolol Succinate (Er) 100 Mg Tab.Er.24h) 100 mg PO DAILY [facility] Last Admin: 12/15/24 09:37 Dose: Not Given Miscellaneous Information (Potassium Replacement Protocol 1 Each Misc) 1 each MISCELLANE DAILY PRN PRN Reason: Per Protocol Miscellaneous Information (Rx Info: Iv Contrast Was Given 1 Each Misc) 1 each MISCELLANE DAILY PRN PRN Reason: Per Protocol Stop: 12/16/24 09:30 Miscellaneous Information (Potassium Replacement Protocol 1 Each Misc) 1 each MISCELLANE DAILY PRN; Protocol PRN Reason: Per Protocol Naloxone HCl (Naloxone 0.4 Mg/Ml 1 Ml Vial) 0.2 mg IV Q2M PRN PRN Reason: Opioid Reversal Pantoprazole Sodium (Pantoprazole 40 Mg/10 Ml Vial) 40 mg IV DAILY [facility] Last Admin: 12/15/24 09:36 Dose: 40 mg Potassium Bicarbonate (Potassium Bicarbonate/Cit Ac 20 Meq Tablet.Eff) 20 meq NG-TUBE Q1HR DEX; Protocol Stop: 12/16/24 06:01 Last Admin: 12/16/24 05:19 Dose: 20 meq Quetiapine Fumarate (Quetiapine 50 Mg Tab) 50 mg PO HS [facility] Last Admin: 12/15/24 20:35 Dose: 50 mg Quetiapine Fumarate (Quetiapine 200 Mg Tab) 200 mg PO HS [facility] Last Admin: 12/15/24 20:35 Dose: 200 mg Rivaroxaban (Rivaroxaban 20 Mg Tab) 20 mg PO HS [facility]; Protocol Last Admin: 12/15/24 20:35 Dose: 20 mg PHYSICAL EXAMINATION: GENERAL: The patient is continued on mechanical ventilation and intubated with sedation, currently on mechanical ventilation with an FiO2 of 50 % PEEP is 5. Well developed, thin built, cachectic, ill-appearing HEENT: Pupils are round and equally reacting to light. EOMI. No scleral icterus. No conjunctival pallor. Normocephalic, atraumatic. No pharyngeal erythema. No thyromegaly. CARDIOVASCULAR: S1 and S2 muffled PULMONARY: Diminished breath sounds bilaterally with some faint expiratory wheezing and coarse scattered rhonchi noted, no accessory muscle use noted, on mechanical ventilation ABDOMEN: Soft, nontender, nondistended, normoactive bowel sounds. No palpable organomegaly. MUSCULOSKELETAL: No joint swelling or deformity. EXTREMITIES: No cyanosis, clubbing, or pedal edema. NEUROLOGICAL: unable to completely assess as patient is on mechanical ventilation and sedated on propofol SKIN: No rashes. Pale Assessment: Acute on chronic hypoxic respiratory failure, multifactorial secondary to acute COPD exacerbation along with concerns of pneumonia of the right lower lobe, possible aspiration/atelectasis, preliminary sputum culture showing Staph aureus Sepsis, present on admission secondary to acute right lower lobe pneumonia COPD acute exacerbation Leukocytosis, multifactorial secondary to sepsis as well as possible steroid- induced Refractory hypotension, likely secondary to sepsis requiring pressor support and will be going to ICU Hypertension history Continued ongoing nicotine dependence History of Crohn's disease with IBS, follows with GI outpatient History of chronic anemia History of chronic back pain History of anxiety/depression/bipolar disorder History of seizure disorder maintained on Keppra History of CVA History of polysubstance abuse with crack/cocaine and has not used those illicit drugs in quite some time GI prophylaxis DVT prophylaxis Full code Plan: Patient was admitted with acute on chronic hypoxic respiratory failure, suspicious for possible aspiration right lower lobe pneumonia. Patient started on antibiotics with pulmonary outdoor studies director following. Discussing possible bronchoscopy, preliminary culture showing Staph aureus of the sputum Infectious disease following and will continue on current antibiotics while awaiting finalized cultures Neurology following the patient undergoing further workup as patient was found unresponsive, EEG was taken and pending Recommend holding narcotics and [employer] agents and assessing mentation Wean FiO2 as tolerated with no plans of extubation today. Perform sedation trials to assess mentation. Currently continued on propofol CT chest is ordered and pending and will follow-up on repeat labs. Patient was started on [id number] DuoNeb treatments along with IV steroids and will add sliding scale with Accu-Cheks before meals and at bedtime as well as 2 AM The impression and plan of care has been dictated by Angelita Diaz, Nurse Practitioner as directed. Dr. Antonette MD I have performed a history and examination and MDM of this patient, discussed the same with the dictator, and agree with the dictator's assessment and plan as written ,documented as a scribe. Based on total visit time, I have performed more than 50% of the visit. Objective - Vital Signs Vital signs: Vital Signs Temp 97.8 F 12/15/24 04:00 Pulse 76 12/15/24 08:26 Resp 20 12/15/24 07:00 BP 130/62 12/15/24 07:00 Pulse Ox 96 12/15/24 07:00 FiO2 50 12/15/24 08:00 Intake & Output 12/14/24 12/15/24 12/15/24 18:59 06:59 18:59 Intake Total 617.699 6691.019 Output Total 2180 1370 Balance -7096.912 0524.019 Weight 68.6 kg Intake: IV 390 1790 Cefepime 2 gm In Sodium 100 Chloride 0.9% 100 ml @ 25 mls/hr IVPB Q8H DEX Rx#: [id number] Lactated Ringers 1,000 ml 390 1690 @ 130 mls/hr IV .[id number] DEX Rx#:[id number] Intake, IV Titration 400.460 635.019 Amount Norepinephrine 8 mg In 98.749 66.655 Sodium Chloride 0.9% 250 ml @ 0.03 MCG/KG/MIN 4. 213 mls/hr IV .Q24H DEX Rx#:[id number] fentaNYL (PF). 1,000 mcg 46.754 In Sodium Chloride 0.9% 80 ml @ 0.5 MCG/KG/HR 3. 629 mls/hr IV .Q24H DEX Rx#:[id number] fentaNYL (PF). 1,000 mcg 4.839 207.683 In Sodium Chloride 0.9% 80 ml @ 0.5 MCG/KG/HR 3. 629 mls/hr IV .Q24H DEX Rx#:[id number] propofoL 1,000 mg In 250.118 360.681 Empty Bag 1 bag @ 15 MCG/ KG/MIN 6.532 mls/hr IV . [id number] DEX Rx#:[id number] Oral 110 Output: Urine 2180 1370 Uretheral (Griffin) 930 Other: Voiding Method Indwelling Catheter Indwelling Catheter ABP, PAP, CO, CI - Last Documented Arterial Blood Pressure 108/42 - Labs CBC & Chem 7: 12/16/24 04:10 12/16/24 04:10 Labs: Abnormal Lab Results - Last 24 Hours (Table) 12/14/24 12/14/24 12/14/24 Range/Units 10:15 14:39 15:34 WBC (3.8-10.6) k/uL RBC (3.80-5.40) m/uL Hgb (11.4-16.0) gm/dL Hct (34.0-46.0) % MCHC (31.0-37.0) g/dL Neutrophils # (1.3-7.7) k/uL Lymphocytes # (1.0-4.8) k/uL ABG pCO2 (35-45) mmHg ABG HCO3 (21-25) mmol/L ABG Total CO2 (19-24) mmol/L ABG O2 Saturation (94-97) % Hemoglobin (11.4-16.0) gm/dL Sodium 136 L (137-145) mmol/L Potassium 2.4 L* (3.5-5.1) mmol/L Chloride 117 H (98-107) mmol/L Carbon Dioxide 16 L (22-30) mmol/L BUN 5 L (7-17) mg/dL Creatinine 0.26 L (0.52-1.04) mg/dL Glucose (74-99) mg/dL POC Glucose (mg/dL) 164 H (70-110) mg/dL Calcium 5.0 L* (8.4-10.2) mg/dL Magnesium 1.3 L (1.6-2.3) mg/dL Alkaline Phosphatase 37 L (38-126) U/L Total Protein 3.4 L (6.3-8.2) g/dL Albumin 1.5 L (3.5-5.0) g/dL 12/14/24 12/14/24 12/14/24 Range/Units 16:09 17:18 17:18 WBC 16.2 H (3.8-10.6) k/uL RBC 3.15 L (3.80-5.40) m/uL Hgb 8.2 L (11.4-16.0) gm/dL Hct 27.6 L (34.0-46.0) % MCHC 29.9 L (31.0-37.0) g/dL Neutrophils # (1.3-7.7) k/uL Lymphocytes # (1.0-4.8) k/uL ABG pCO2 (35-45) mmHg ABG HCO3 (21-25) mmol/L ABG Total CO2 (19-24) mmol/L ABG O2 Saturation (94-97) % Hemoglobin (11.4-16.0) gm/dL Sodium (137-145) mmol/L Potassium (3.5-5.1) mmol/L Chloride (98-107) mmol/L Carbon Dioxide (22-30) mmol/L BUN (7-17) mg/dL Creatinine 0.40 L (0.52-1.04) mg/dL Glucose 181 H (74-99) mg/dL POC Glucose (mg/dL) 197 H (70-110) mg/dL Calcium (8.4-10.2) mg/dL Magnesium (1.6-2.3) mg/dL Alkaline Phosphatase (38-126) U/L Total Protein 5.8 L (6.3-8.2) g/dL Albumin 3.0 L (3.5-5.0) g/dL 12/14/24 12/15/24 12/15/24 Range/Units 18:26 00:09 02:17 WBC (3.8-10.6) k/uL RBC (3.80-5.40) m/uL Hgb (11.4-16.0) gm/dL Hct (34.0-46.0) % MCHC (31.0-37.0) g/dL Neutrophils # (1.3-7.7) k/uL Lymphocytes # (1.0-4.8) k/uL ABG pCO2 (35-45) mmHg ABG HCO3 (21-25) mmol/L ABG Total CO2 (19-24) mmol/L ABG O2 Saturation (94-97) % Hemoglobin (11.4-16.0) gm/dL Sodium (137-145) mmol/L Potassium (3.5-5.1) mmol/L Chloride (98-107) mmol/L Carbon Dioxide (22-30) mmol/L BUN (7-17) mg/dL Creatinine (0.52-1.04) mg/dL Glucose (74-99) mg/dL POC Glucose (mg/dL) 209 H 224 H 216 H (70-110) mg/dL Calcium (8.4-10.2) mg/dL Magnesium (1.6-2.3) mg/dL Alkaline Phosphatase (38-126) U/L Total Protein (6.3-8.2) g/dL Albumin (3.5-5.0) g/dL 12/15/24 12/15/24 12/15/24 Range/Units 04:11 04:11 04:58 WBC 14.1 H (3.8-10.6) k/uL RBC 2.90 L (3.80-5.40) m/uL Hgb 7.7 L (11.4-16.0) gm/dL Hct 25.0 L (34.0-46.0) % MCHC 30.7 L (31.0-37.0) g/dL Neutrophils # 12.9 H (1.3-7.7) k/uL Lymphocytes # 0.7 L (1.0-4.8) k/uL ABG pCO2 46 H (35-45) mmHg ABG HCO3 29 H (21-25) mmol/L ABG Total CO2 31 H (19-24) mmol/L ABG O2 Saturation 98.1 H (94-97) % Hemoglobin 7.5 L (11.4-16.0) gm/dL Sodium (137-145) mmol/L Potassium (3.5-5.1) mmol/L Chloride (98-107) mmol/L Carbon Dioxide (22-30) mmol/L BUN (7-17) mg/dL Creatinine 0.37 L (0.52-1.04) mg/dL Glucose 167 H (74-99) mg/dL POC Glucose (mg/dL) (70-110) mg/dL Calcium (8.4-10.2) mg/dL Magnesium 1.4 L (1.6-2.3) mg/dL Alkaline Phosphatase (38-126) U/L Total Protein (6.3-8.2) g/dL Albumin (3.5-5.0) g/dL 12/15/24 Range/Units 06:30 WBC (3.8-10.6) k/uL RBC (3.80-5.40) m/uL Hgb (11.4-16.0) gm/dL Hct (34.0-46.0) % MCHC (31.0-37.0) g/dL Neutrophils # (1.3-7.7) k/uL Lymphocytes # (1.0-4.8) k/uL ABG pCO2 (35-45) mmHg ABG HCO3 (21-25) mmol/L ABG Total CO2 (19-24) mmol/L ABG O2 Saturation (94-97) % Hemoglobin (11.4-16.0) gm/dL Sodium (137-145) mmol/L Potassium (3.5-5.1) mmol/L Chloride (98-107) mmol/L Carbon Dioxide (22-30) mmol/L BUN (7-17) mg/dL Creatinine (0.52-1.04) mg/dL Glucose (74-99) mg/dL POC Glucose (mg/dL) 191 H (70-110) mg/dL Calcium (8.4-10.2) mg/dL Magnesium (1.6-2.3) mg/dL Alkaline Phosphatase (38-126) U/L Total Protein (6.3-8.2) g/dL Albumin (3.5-5.0) g/dL Microbiology - Last 24 Hours (Table) 12/13/24 19:17 Gram Stain - Preliminary Sputum Sputum Culture - Preliminary
--- NOTE | 2024-12-16 07:59 | XR ---
EXAMINATION TYPE: XR chest 1V portable DATE OF EXAM: 12/16/2024 5:21 AM COMPARISON: Chest radiograph from one day prior. CLINICAL INDICATION: Female, 64 years old with history of Tube placement; [facility] TECHNIQUE: XR chest 1V portable Frontal view of the chest. FINDINGS: Lungs/Pleura: Prominent interstitial lung markings are seen scattered throughout the lungs with incre ased lucency of the lung apices. No evidence of focal consolidation, pneumothorax or pleural effusion . Pulmonary vascularity: Unremarkable. Heart/mediastinum: Cardiomediastinal silhouette is unremarkable. Musculoskeletal: No acute osseous pathology. Other findings: None Lines/Tubes: Endotracheal tube with distal tip 3.8 cm above the della. Nasogastric tube with its distal tip and side-port projecting under the diaphragm. Right internal jugular central venous catheter with distal tip at the cavoatrial junction. IMPRESSION: 1. Stable support line and tubes. 2. Cardiomegaly with trace pleural effusions. Correlate for congestive heart failure. 3. COPD changes. [facility], , 12/16/2024 7:57 AM
[2024-12-16] MEDS: CISATRACURIUM 2 MG/ML 5 ML VIAL IV ONE ×2 (08:38→09:15)
[2024-12-16] MEDS: FUROSEMIDE 10 MG/ML 4 ML VIAL IV STA (09:16)
[2024-12-16 12:17] LABS: Glucose,Whole Blood 103 mg/dL (70-110)
[2024-12-16 13:49] LABS: ABG Base Excess 7.8 mmol/L; ABG HCO3 33 mmol/L (21-25); ABG Oxygen Saturation 97.7 % (94-97); ABG PCO2 49 mmHg (35-45); ABG PH 7.43 (7.35-7.45); ABG PO2 91 mmHg (83-108); ABG TCO2 35 mmol/L (19-24); Allen Test Performed? Yes
--- NOTE | 2024-12-16 16:34 | P.PN ---
Subjective Progress Note Date: 12/16/24 Patient is a 64-year-old female with past medical history significant for atrial fibrillation anticoagulated on Xarelto, coronary artery disease, hypertension, hyperlipidemia, CVA/TIA, seizure disorder, polysubstance abuse, GERD, Crohn's disease, COPD, home O2 dependence, among other things. Patient currently intubated mechanical ventilator unable to provide information. According to the ER documentation patient was sent in from [facility]. Noted to be minimally responsive and did require bag mask ventilation. Intubated on arrival in the emergency department. Workup in the ED including a chest x-ray which shows the endotracheal tube terminating approximately 4 cm above the della. Enteric tube coursing below the diaphragm. Right IJ central line catheter with the tip terminating near the cavoatrial junction. Patchy opacities bilateral suggestive of multifocal pneumonia. CBC: WBC count elevated at 40, hemoglobin 9.2, platelets 461. CMP: Sodium 135, potassium 5.3, chloride 100, serum bicarb 32, BUN 16, creatinine 0.55, glucose 206. Lactic 0.9. LFTs not elevated. Ammonia 79. Troponin less than 0.012 and then 0.05. NT proBNP 256. Brain CT did not show any acute intracranial process, no acute intraparenchymal hemorrhage or mass effect. CT of the head and neck did not show any evidence of dissection of the cervical internal carotid arteries or vertebral arteries. No evidence of significant flow-limiting stenosis at the carotid bifurcation. No evidence of intracranial high-grade stenosis or intracranial aneurysm. Urine toxicology screen positive for opiates and tricyclic antidepressants. Urinalysis unremarkable for UTI. Initial ABG following intubation done on FiO2 of 100% showing a PaO2 of 215, pCO2 65, pH of 7.25. Patient currently being seen in the emergency department, trauma bay 2. Remains intubated mechanical ventilator with current ventilator settings assist-control, respiratory rate 20, tidal volume 450, FiO2 70%, PEEP of 5. Most recent ABGs from this morning done on the settings show improvement in the patient's acid-base balance and there is a PaO2 of 193, pCO2 of 42, pH of 7.46. FiO2 was per appropriately dropped to 50%. Peak airway pressure 32 with a static pressure of 16, indicating some component of airway resistance. Patient is currently synchronous with set rate. Sedated on propofol which is infusing at 30 mcg/kg/min. Fentanyl is also infusing at 0.5 mcg/kg/h. Previously fluid resuscitated with 2 L lactated Ringer's IV bolus and continues with Lactated Ringer's infusing at 130 mL/h. Blood pressure remained hypotensive despite fluid resuscitation and started on low-dose norepinephrine which is infusing at 0.07 mcg/kg/min. Patient is awaiting a bed in the intensive care unit On 12/15/2024, the patient is being seen for a follow-up. Remains intubated on the mechanical ventilator. This morning, the patient is on propofol running at 50 mcg/kg/min and fentanyl is running at 1 mcg/kg/h. The patient is on assist-control mode of mechanical ventilation at rate of 20, tidal volume of 450, FiO2 50% with a PEEP of 5. Blood gas showed a pH of 7.41 with a pCO2 46 and pO2 of 95. The follow-up chest x-ray was done this morning and the patient continues to have volume loss in the right lung base along with atelectatic changes in the right lung base and possibly some consolidation effusion. The patient also has cardiomegaly and background COPD. A CAT scan of the chest was also completed yesterday and the patient was found to have advanced emphysematous changes bilaterally with upper lobe predominance. There is also small bilateral pleural effusion right more than left, right basilar consolidation/atelectasis and an abrupt cutoff sign in the right lower lobe bronchus. Obviously, this needs to be further investigated and the patient will need a bronchoscopy to evaluate the patency of the right lower lobe. WBC count is at 14.1, hemoglobin 7.7 and the platelet count is up to 73. Sodium is at 137, potassium 3.8, BUN is 9 with a creatinine of 0.37. In terms of antibiotic coverage, the patient is on IV cefepime and vancomycin. The sputum sample is showing presumptive staff aureus. ID is on the case. On 12/16/2024, the patient is intubated on mechanical ventilator. The patient is on propofol running at 50 mcg/kg/min and fentanyl which is running at 1 mcg/kg/h. She is calm and comfortable and synchronous on mechanical ventilator. Chest x-ray was noted from this morning and there is some worsening in the bibasilar consolidation and some volume loss in the right lung base and the patient also has cardiomegaly and pulm vessel congestion. Based on that, a bronchoscopy was done and copious amount of blood. Treated with aspirated from the right lower lobe bronchus. The airway was patent and there was no evidence of any endobronchial tumors or lesions. Therapeutic airway suctioning was done and a bronchial lavage of the right lower lobe was obtained. Meanwhile, the patient remains on the mechanical ventilator, this morning, she is on assist- control mode with rate of 20, tidal volume of 450, FiO2 50% with a PEEP of 5. Blood gas showed a pH of 7.49 with a pCO2 of 38 and pO2 of 78. The patient is on no pressors. The white cell count is at 8.4 with a hemoglobin of 7 and a platelet count of 237. Electrolytes are all within normal limits. BUN is 12 with a creatinine of 0.34. The sputum sample that was collected earlier on 12/13/2024 showed MSSA. The patient remains on broad-spectrum antibiotics and the patient remains on IV cefepime and vancomycin. Remains on bronchodilators. Remains on steroids. Peak airway pressure is around 24. Continues to receive enteral feeding for nutritional support. IV fluids will be cut down to KVO. Objective - Vital Signs Vital signs: Vital Signs Temp 96.7 F L 12/16/24 12:00 Pulse 104 H 12/16/24 16:18 Resp 15 12/16/24 14:00 BP 147/72 12/16/24 14:00 Pulse Ox 98 12/16/24 14:00 FiO2 40 12/16/24 14:00 Intake & Output 12/15/24 12/16/24 12/16/24 18:59 06:59 18:59 Intake Total 2215.018 1524.904 2106.276 Output Total 1044 1070 2725 Balance 1171.018 596.176 -1718.724 Weight 68.6 kg 71.9 kg Intake: IV 1800 955 776 Cefepime 2 gm In Sodium 200 100 100 Chloride 0.9% 100 ml @ 25 mls/hr IVPB Q8H DEX Rx#: [id number] Lactated Ringers 1,000 ml 900 825 155 @ 20 mls/hr IV .Q24H [facility]EX Rx#:[id number] Magnesium Sulfate-D5w Pmx 200 1 gm In Dextrose/Water 1 100ml.bag @ 100 mls/hr IVPB Q1H DEX Rx#: [id number] Vancomycin 1,500 mg In 500 500 Sodium Chloride 0.9% 500 ml 500 ml @ 167 mls/hr IVPB Q12HR [facility] Rx#: [id number] pressure bag 30 21 Intake, IV Titration 325.018 711.176 230.276 Amount Magnesium Sulfate-D5w Pmx 100 1 gm In Dextrose/Water 1 100ml.bag @ 100 mls/hr IVPB ONCE ONE Rx#: [id number] Norepinephrine 4 mg In 2.091 1.808 Sodium Chloride 0.9% 250 ml @ 0.03 MCG/KG/MIN 7. 841 mls/hr IV .Q24H [facility] Rx#:[id number] Norepinephrine 8 mg In 42.762 Sodium Chloride 0.9% 250 ml @ 0.03 MCG/KG/MIN 4. 213 mls/hr IV .Q24H [facility] Rx#:[id number] Vancomycin 1,250 mg In 250 Sodium Chloride 0.9% 250 ml @ 125 mls/hr IVPB Q12HR [facility] Rx#:[id number] fentaNYL (PF). 1,000 mcg 78.204 186.392 62.598 In Sodium Chloride 0.9% 80 ml @ 0.5 MCG/KG/HR 3. 629 mls/hr IV .Q24H [facility] Rx#:[id number] propofoL 1,000 mg In 201.961 172.976 167.678 Empty Bag 1 bag @ 15 MCG/ KG/MIN 6.532 mls/hr IV . [id number] [facility] Rx#:[id number] Tube Feeding 0 Other 90 Output: Gastric Drainage 350 350 Urine 217 803 2767 Other: Voiding Method Indwelling Catheter Indwelling Catheter Indwelling Catheter # Bowel Movements 0 1 ABP, PAP, CO, CI - Last Documented Arterial Blood Pressure 163/60 - Exam GENERAL EXAM: Sedated, 64-year-old female, intubated mechanical ventilator, calm and comfortable, sedated with a combination of propofol and fentanyl HEAD: Normocephalic and atraumatic EYES: Normal reaction of pupils, equal size. NOSE: Clear with pink turbinates. THROAT: No erythema or exudates. NECK: No masses, no JVD. Right IJ central line catheter secured in place CHEST: No chest wall deformity. LUNGS: Equal air entry with scattered rhonchi. Intubated mechanical ventilator. CVS: S1 and S2 normal with no audible murmur, regular rhythm. No extra heart sounds ABDOMEN: No hepatosplenomegaly, active bowel sounds, no guarding or rigidity. SPINE: No scoliosis or deformity SKIN: No rashes CENTRAL NERVOUS SYSTEM: Sedated, does not follow commands, withdraws to pain in all 4 extremities EXTREMITIES: There is no peripheral edema, clubbing, or cyanosis. Peripheral pulses are intact. - Labs CBC & Chem 7: 12/16/24 04:10 12/16/24 04:10 Labs: Abnormal Lab Results - Last 24 Hours (Table) 12/15/24 12/15/24 12/16/24 Range/Units 17:35 23:26 04:10 RBC 2.61 L (3.80-5.40) m/uL Hgb 7.0 L (11.4-16.0) gm/dL Hct 22.5 L (34.0-46.0) % Lymphocytes # 0.7 L (1.0-4.8) k/uL ABG pH (7.35-7.45) ABG pCO2 (35-45) mmHg ABG pO2 (83-108) mmHg ABG HCO3 (21-25) mmol/L ABG Total CO2 (19-24) mmol/L ABG O2 Saturation (94-97) % Hemoglobin (11.4-16.0) gm/dL Creatinine (0.52-1.04) mg/dL Glucose (74-99) mg/dL POC Glucose (mg/dL) 168 H 171 H (70-110) mg/dL 12/16/24 12/16/24 12/16/24 Range/Units 04:10 04:27 05:32 RBC (3.80-5.40) m/uL Hgb (11.4-16.0) gm/dL Hct (34.0-46.0) % Lymphocytes # (1.0-4.8) k/uL ABG pH 7.49 H (7.35-7.45) ABG pCO2 (35-45) mmHg ABG pO2 78 L (83-108) mmHg ABG HCO3 29 H (21-25) mmol/L ABG Total CO2 30 H (19-24) mmol/L ABG O2 Saturation (94-97) % Hemoglobin 6.8 L* (11.4-16.0) gm/dL Creatinine 0.34 L (0.52-1.04) mg/dL Glucose 147 H (74-99) mg/dL POC Glucose (mg/dL) 151 H (70-110) mg/dL 12/16/24 Range/Units 13:47 RBC (3.80-5.40) m/uL Hgb (11.4-16.0) gm/dL Hct (34.0-46.0) % Lymphocytes # (1.0-4.8) k/uL ABG pH (7.35-7.45) ABG pCO2 49 H (35-45) mmHg ABG pO2 (83-108) mmHg ABG HCO3 33 H (21-25) mmol/L ABG Total CO2 35 H (19-24) mmol/L ABG O2 Saturation 97.7 H (94-97) % Hemoglobin 8.0 L (11.4-16.0) gm/dL Creatinine (0.52-1.04) mg/dL Glucose (74-99) mg/dL POC Glucose (mg/dL) (70-110) mg/dL Microbiology - Last 24 Hours (Table) 12/13/24 19:00 Blood Culture - Preliminary Blood 12/13/24 19:17 Gram Stain - Final Sputum Sputum Culture - Final Staphylococcus aureus [place] albicans Assessment and Plan Assessment: Acute hypoxemic and hypercapnic respiratory failure, secondary acute exacerbation and bibasilar pneumonia. The patient has significant volume loss in the right lung base along with area of consolidation. A bronchoscopy was done and copious amount of respiratory secretions were identified in the right lower lobe bronchus. Nevertheless, there was no evidence of any endobronchial tumors or lesions. The sputum sample is positive for MSSA and the patient remains on a combination of cefepime and vancomycin. Oxygenation is stable. The patient has had previous bronchoscopy and infection with stenotrophomonas back in September 2024.. CAT scan of the chest done on 12/14/2024 showed small bilateral pleural effusion, diffuse emphysematous changes bilaterally with upper lobe predominance and the patient also has right basilar atelectasis/consolidation/volume loss along with an abrupt cut off sign in the right lower lobe bronchus. Acute COPD exacerbation with secondary respiratory failure, improving and the patient obviously is less bronchospastic and wheezy Pneumonia/sepsis, rule out possibility of right lower lobe pneumonia/atelectasis. Sputum sample was positive for Staph aureus and the patient remains on a combination of cefepime and vancomycin Acute leukocytosis, secondary to above, improved Hypotension secondary to sepsis, improved and the patient is currently normotensive on no pressors History of paroxysmal atrial fibrillation, anticoagulated on Xarelto, currently sinus mechanism Chronic anemia Chronic obstructive pulmonary disease Chronic hypoxemic respiratory failure History recent of bronchoscopy with BAL done October 02, 2024, microbiology po sitive for stenotrophomonas maltophilia at that time. History of hypertension History of hyperlipidemia Coronary artery disease History of CVA/TIA History of seizure disorder, on Keppra History of polysubstance abuse History of gastroesophageal reflux disease History of Crohn's disease Chronic nicotine dependence History of anxiety/depression/bipolar Plan: Continue vent support Bronchoscopy and therapeutic airway suctioning was done and copious amount of resp secretions were suctioned from the right lung especially from the right lower lobe endobronchial lavage was also done Continue bronchodilators Continue steroids Continue cefepime and vancomycin Sputum sample was positive for MSSA CAT scan of the chest from 12/14/2024 was noted Patient is currently off pressors Continue anticoagulation with Xarelto Dropped respiratory rate down to 14 IV fluids to KVO Give Lasix 40 mg IV x 1 Cut down the sedation and assess weaning parameters and readiness to wean. Possible extubation today based on her progress. This evaluation is a critical care evaluation and this was done and 33 minutes. Time with Patient: Greater than 30
--- NOTE | 2024-12-16 16:36 | P.PCN ---
Date of Procedure: 12/16/24 Preoperative Diagnosis: Bilateral lower lobe pneumonia Postoperative Diagnosis: Copious purulent respiratory secretions specially in the right lower lobe bronchus Procedure(s) Performed: Flexible bronchoscopy Therapeutic airway suctioning of respiratory secretions Bronchoalveolar lavage of the right lower lobe Anesthesia: CHELSEA Surgeon: Khadijah Chaudhary Estimated Blood Loss (ml): 0 Pathology: other Condition: critical Disposition: ICU Operative Findings: This procedure was done in the intensive care unit. The patient was intubated on the mechanical ventilator. The patient was given the best 10 mg IV push. The patient is also on a combination of propofol and fentanyl Using a flexible bronchoscope, airway inspection was done. The bronchoscope was easily passed through the orotracheal tube and a full examination was done. There was copious amount of rectal secretions throughout the patient's airways patient in the right lower lobe area. In fact, the right lower lobe bronchus was completely plugged with respiratory secretion. Respiratory material. Therapeutic airway suctioning was done and the airways were clear. The visualized airways include the right upper lobe bronchus, right middle lobe bronchus, right lower lobe bronchus and the various 10 segments on the right and examination of the left side include left upper lobe bronchus and the left lower lobe bronchus and the various 8 segments on the left. Following that, a bronchioloalveolar lavage of the right lower lobe was done with a total of 40 cc of saline was infused and 20 cc was aspirated. This was sent for cultures. The procedure was successful. Oxygenation remained stable. The flexible bronchoscope was removed and the patient will be started on weaning trials. Sedation will be discontinued.
--- NOTE | 2024-12-16 17:08 | P.PN ---
Subjective Progress Note Date: 12/16/24 Principal diagnosis: Reason for follow-up is sepsis/pneumonia Patient is a 64-year-old female with a past medical history significant for hypertension hyperlipidemia osteoarthritis COPD CVA TIA coronary artery disease patient has been brought into the hospital from a local half-way unresponsive, patient did have a fever abnormal x-ray concerning for possible pneumonia/sepsis. On today's evaluation that is 12/16/2024,the patient remains to be afebrile, the patient remains to be debated on the vent FiO2 is currently at 40% patient is hemodynamic stable not requiring any pressor support no other changes reported by the nursing staff. Patient white count has normalized to 8.4 creatinine is 0.34, sputum is growing MSSA and [place] Objective - Vital Signs Vital signs: Vital Signs Temp 96.7 F L 12/16/24 12:00 Pulse 104 H 12/16/24 16:18 Resp 15 12/16/24 14:00 BP 147/72 12/16/24 14:00 Pulse Ox 98 12/16/24 14:00 FiO2 40 12/16/24 14:00 Intake & Output 12/15/24 12/16/24 12/16/24 18:59 06:59 18:59 Intake Total 2215.018 9694.159 1549.276 Output Total 1044 1070 3525 Balance 1171.018 596.176 -2512.724 Weight 68.6 kg 71.9 kg Intake: IV 1800 955 782 Cefepime 2 gm In Sodium 200 100 100 Chloride 0.9% 100 ml @ 25 mls/hr IVPB Q8H [facility] Rx#: [id number] Lactated Ringers 1,000 ml 900 825 155 @ 20 mls/hr IV .Q24H [facility] Rx#:[id number] Magnesium Sulfate-D5w Pmx 200 1 gm In Dextrose/Water 1 100ml.bag @ 100 mls/hr IVPB Q1H [facility] Rx#: [id number] Vancomycin 1,500 mg In 500 500 Sodium Chloride 0.9% 500 ml 500 ml @ 167 mls/hr IVPB Q12HR [facility] Rx#: [id number] pressure bag 30 27 Intake, IV Titration 325.018 711.176 230.276 Amount Magnesium Sulfate-D5w Pmx 100 1 gm In Dextrose/Water 1 100ml.bag @ 100 mls/hr IVPB ONCE ONE Rx#: [id number] Norepinephrine 4 mg In 2.091 1.808 Sodium Chloride 0.9% 250 ml @ 0.03 MCG/KG/MIN 7. 841 mls/hr IV .Q24H [facility] Rx#:[id number] Norepinephrine 8 mg In 42.762 Sodium Chloride 0.9% 250 ml @ 0.03 MCG/KG/MIN 4. 213 mls/hr IV .Q24H [facility] Rx#:[id number] Vancomycin 1,250 mg In 250 Sodium Chloride 0.9% 250 ml @ 125 mls/hr IVPB Q12HR [facility] Rx#:[id number] fentaNYL (PF). 1,000 mcg 78.204 186.392 62.598 In Sodium Chloride 0.9% 80 ml @ 0.5 MCG/KG/HR 3. 629 mls/hr IV .Q24H [facility] Rx#:[id number] propofoL 1,000 mg In 201.961 172.976 167.678 Empty Bag 1 bag @ 15 MCG/ KG/MIN 6.532 mls/hr IV . [id number] [facility] Rx#:[id number] Tube Feeding 0 Other 90 Output: Gastric Drainage 350 350 Urine 041 079 6316 Other: Voiding Method Indwelling Catheter Indwelling Catheter Indwelling Catheter # Bowel Movements 0 1 ABP, PAP, CO, CI - Last Documented Arterial Blood Pressure 163/60 - Exam GENERAL DESCRIPTION: An elderly female intubated on the vent RESPIRATORY SYSTEM: Unlabored breathing , decreased breath sounds at bases HEART: S1 S2 regular rate and rhythm , ABDOMEN: Soft , no tenderness EXTREMITIES: No edema feet - Labs CBC & Chem 7: 12/16/24 04:10 12/16/24 04:10 Labs: Abnormal Lab Results - Last 24 Hours (Table) 12/15/24 12/15/24 12/16/24 Range/Units 17:35 23:26 04:10 RBC 2.61 L (3.80-5.40) m/uL Hgb 7.0 L (11.4-16.0) gm/dL Hct 22.5 L (34.0-46.0) % Lymphocytes # 0.7 L (1.0-4.8) k/uL ABG pH (7.35-7.45) ABG pCO2 (35-45) mmHg ABG pO2 (83-108) mmHg ABG HCO3 (21-25) mmol/L ABG Total CO2 (19-24) mmol/L ABG O2 Saturation (94-97) % Hemoglobin (11.4-16.0) gm/dL Creatinine (0.52-1.04) mg/dL Glucose (74-99) mg/dL POC Glucose (mg/dL) 168 H 171 H (70-110) mg/dL 12/16/24 12/16/24 12/16/24 Range/Units 04:10 04:27 05:32 RBC (3.80-5.40) m/uL Hgb (11.4-16.0) gm/dL Hct (34.0-46.0) % Lymphocytes # (1.0-4.8) k/uL ABG pH 7.49 H (7.35-7.45) ABG pCO2 (35-45) mmHg ABG pO2 78 L (83-108) mmHg ABG HCO3 29 H (21-25) mmol/L ABG Total CO2 30 H (19-24) mmol/L ABG O2 Saturation (94-97) % Hemoglobin 6.8 L* (11.4-16.0) gm/dL Creatinine 0.34 L (0.52-1.04) mg/dL Glucose 147 H (74-99) mg/dL POC Glucose (mg/dL) 151 H (70-110) mg/dL 12/16/24 Range/Units 13:47 RBC (3.80-5.40) m/uL Hgb (11.4-16.0) gm/dL Hct (34.0-46.0) % Lymphocytes # (1.0-4.8) k/uL ABG pH (7.35-7.45) ABG pCO2 49 H (35-45) mmHg ABG pO2 (83-108) mmHg ABG HCO3 33 H (21-25) mmol/L ABG Total CO2 35 H (19-24) mmol/L ABG O2 Saturation 97.7 H (94-97) % Hemoglobin 8.0 L (11.4-16.0) gm/dL Creatinine (0.52-1.04) mg/dL Glucose (74-99) mg/dL POC Glucose (mg/dL) (70-110) mg/dL Microbiology - Last 24 Hours (Table) 03/09/25 19:00 Blood Culture - Preliminary Blood 12/13/24 19:17 Gram Stain - Final Sputum Sputum Culture - Final Staphylococcus aureus [place] albicans Assessment and Plan (1) Pneumonia Current Visit: Yes Status: Acute Code(s): J18.9 - PNEUMONIA, UNSPECIFIED ORGANISM SNOMED Code(s): 085971187 (2) Sepsis Current Visit: Yes Status: Acute Code(s): A41.9 - SEPSIS, UNSPECIFIED ORGANISM SNOMED Code(s): 65171697 Plan: 1patient presented to hospital with sepsis in this patient who did have fever of 103 F reported by the EMS tachycardia elevated white count meeting criteria for SIRS/sepsis source likely pneumonia as no evidence of any cellulitis abdominal tenderness UA has been reported negative and will need to cover for the resistant gram-positive as well as gram-negative pathogen 2-blood cultures currently pending sputum is growing and SSA and [place] 3-patient to continue with cefepime however will discontinue vancomycin as no MRSA has been grown Dictation was produced using [employer] dictation software. please excuse any grammatical, word or spelling errors. Time with Patient: Less than 30
[2024-12-16 17:42] LABS: Glucose,Whole Blood 106 mg/dL (70-110)
[2024-12-16] MEDS: METOPROLOL TARTRATE 25 MG TAB PO SCH (18:11)
[2024-12-16] MEDS ORDERED: FUROSEMIDE 10 MG/ML 2 ML VIAL IV SCH (21:00)
--- NOTE | 2024-12-16 21:06 | PN ---
PROGRESS NOTE SUBJECTIVE: Fabiola remains intubated and on vent. Remains in sinus rhythm. The echocardiogram showed normal LV systolic function. PHYSICAL EXAMINATION: VITAL SIGNS: On exam this morning, heart rate is 66 beats per minute, blood pressure is 106/50, respiratory rate is 14. CHEST: Reveals good air entry with occasional rhonchi. HEART: Reveals first and second heart sounds. No gallop. EXTREMITIES: Did not reveal any edema. Peripheral pulses are felt. The patient was on Toprol-XL. I am going to resume Lopressor 25 b.i.d. LABORATORY DATA: Labs today showed that the hemoglobin is 7. Potassium is 3.5, creatinine is 0.3. ASSESSMENT: 1. Paroxysmal atrial fibrillation. 2. Vent requiring respiratory failure. 3. Pneumonia. 4. Elevated troponin, secondary to respiratory failure. PLAN: I will continue the patient on current medications. TORIE / MAXX: [id number] /
[2024-12-17 00:07] LABS: Glucose,Whole Blood 132 mg/dL (70-110)
[2024-12-17 06:05] LABS: Glucose,Whole Blood 189 mg/dL (70-110)
--- NOTE | 2024-12-17 06:05 | P.PN ---
Subjective Progress Note Date: 12/16/24 This is a 64-year-old female who presented to the emergency department from [facility] and was noted to be unresponsive and apparently per [facility] staff patient was baseline this morning. Patient also noted to have a 103 temp while at the facility and patient was transported here via EMS for further evaluation. Patient has a significant past medical history of atrial fibrillation, coronary artery disease, angina, COPD, previous CVA, GERD, hyperlipidemia, hypertension, osteoarthritis, seizure disorder, Crohn's disease, anxiety/bipolar depression, history of polysubstance abuse, continued ongoing nicotine dependence, past history of alcohol abuse. Patient with significant weakness had [facility] for quite some time and has had multiple hospitalizations for significant comorbidities. Patient labs reviewed on admission revealing a white count of 39.7, hemoglobin 9.2, platelets 461, ABG revealing a pH of 7.25, pCO2 elevated at 65, pO2 215, bicarb elevated at 29. Sodium was 135 with a potassium of 5.3, creatinine 0.55, blood sugars elevated, lactic acid 1.4, calcium 8.1, ammonia level 79, troponin 0.052, BNP 256, TSH 3.6, urinalysis negative, urine drug screen was positive for opiates and TCAs otherwise virology testing was all negative including RSV, COVID, influenza. Chest x-ray on admission showed patchy infiltrate opacities bilateral suggestive of multifocal pneumonia and patient is currently on mechanical ventilation. Brain CT showing no acute intracranial process, EKG showing sinus tachycardia with occasional PVCs possible atrial flutter although repeat EKG showing sinus tachycardia. Patient being admitted to ICU with pulmonary and neurology on consultation. 12/15/2024 Patient is seen in follow-up today continues in the ICU on mechanical ventilation with to a 50% and PEEP is 5. No plans of weaning at this time and discussing the need for bronchoscopy. Preliminary sputum culture showing Staph aureus and maintained on cefepime with infectious disease following. Patient is also maintained on steroids and will continue with sliding scale and adjust insulins accordingly. 12/16/2024 Patient is seen in follow-up today continues on mechanical ventilation with an F iO2 of 50% and PEEP is 5. No plans for extubation at this time and is scheduled to undergo bronchoscopy with pulmonary director institution. Patient is maintained on antibiotics with preliminary culture showing Staph aureus. REVIEW OF SYSTEMS: Unable to assess as patient is on mechanical ventilation The rest of the 14-point review of systems is negative. PHYSICAL EXAMINATION: GENERAL: The patient is continued on mechanical ventilation and intubated with sedation, currently on mechanical ventilation with an FiO2 of 50 % PEEP is 5. Well developed, thin built, cachectic, ill-appearing HEENT: Pupils are round and equally reacting to light. EOMI. No scleral icterus. No conjunctival pallor. Normocephalic, atraumatic. No pharyngeal erythema. No thyromegaly. CARDIOVASCULAR: S1 and S2 muffled PULMONARY: Diminished breath sounds bilaterally with some faint expiratory wheezing and coarse scattered rhonchi noted, no accessory muscle use noted, on mechanical ventilation ABDOMEN: Soft, nontender, nondistended, normoactive bowel sounds. No palpable organomegaly. MUSCULOSKELETAL: No joint swelling or deformity. EXTREMITIES: No cyanosis, clubbing, or pedal edema. NEUROLOGICAL: unable to completely assess as patient is on mechanical ventilation and sedated on propofol SKIN: No rashes. Pale Assessment: Acute on chronic hypoxic respiratory failure, multifactorial secondary to acute COPD exacerbation along with concerns of pneumonia of the right lower lobe, possible aspiration/atelectasis, preliminary sputum culture showing Staph aureus Sepsis, present on admission secondary to acute right lower lobe pneumonia COPD acute exacerbation Leukocytosis, multifactorial secondary to sepsis as well as possible steroid- induced Refractory hypotension, likely secondary to sepsis requiring pressor support and will be going to ICU Hypertension history Continued ongoing nicotine dependence History of Crohn's disease with IBS, follows with GI outpatient History of chronic anemia History of chronic back pain History of anxiety/depression/bipolar disorder History of seizure disorder maintained on Keppra History of CVA History of polysubstance abuse with crack/cocaine and has not used those illicit drugs in quite some time GI prophylaxis DVT prophylaxis Full code Plan: Patient was admitted with acute on chronic hypoxic respiratory failure, suspicious for possible aspiration right lower lobe pneumonia. Patient started on antibiotics with pulmonary director institution following. Discussing possible bronchoscopy today and will await report, preliminary culture showing Staph aureus of the sputum Infectious disease following and will continue on current antibiotics while awaiting finalized cultures Neurology following the patient undergoing further workup as patient was found unresponsive, EEG was taken and pending Recommend holding narcotics and CSW agents and assessing mentation Wean FiO2 as tolerated with no plans of extubation today. Perform sedation trials to assess mentation. Currently continued on propofol. FiO2 is 50% with a PEEP of 5 Patient is continued on [id number] DuoNeb treatments along with IV steroids and will add sliding scale with Accu-Cheks before meals and at bedtime as well as 2 AM The impression and plan of care has been dictated by Angelita Diaz, Nurse Practitioner as directed. Dr. Antonette MD I have performed a history and examination and MDM of this patient, discussed the same with the dictator, and agree with the dictator's assessment and plan as written ,documented as a scribe. Based on total visit time, I have performed more than 50% of the visit. Objective - Vital Signs Vital signs: Vital Signs Temp 97.9 F 12/16/24 04:00 Pulse 71 12/16/24 09:00 Resp 14 12/16/24 09:00 BP 116/53 12/16/24 09:00 Pulse Ox 100 12/16/24 09:00 FiO2 50 12/16/24 09:00 Intake & Output 12/15/24 12/16/24 12/16/24 18:59 06:59 18:59 Intake Total 2215.018 1666.176 784 Output Total 1044 1070 325 Balance 1171.018 596.176 459 Weight 68.6 kg 71.9 kg Intake: IV 1800 955 684 Cefepime 2 gm In Sodium 200 100 100 Chloride 0.9% 100 ml @ 25 mls/hr IVPB Q8H DEX Rx#: [id number] Lactated Ringers 1,000 ml 900 825 75 @ 20 mls/hr IV .Q24H DEX Rx#:[id number] Magnesium Sulfate-D5w Pmx 200 1 gm In Dextrose/Water 1 100ml.bag @ 100 mls/hr IVPB Q1H DEX Rx#: [id number] Vancomycin 1,500 mg In 500 500 Sodium Chloride 0.9% 500 ml 500 ml @ 167 mls/hr IVPB Q12HR DEX Rx#: [id number] pressure bag 30 9 Intake, IV Titration 325.018 711.176 100 Amount Magnesium Sulfate-D5w Pmx 100 1 gm In Dextrose/Water 1 100ml.bag @ 100 mls/hr IVPB ONCE ONE Rx#: [id number] Norepinephrine 4 mg In 2.091 1.808 Sodium Chloride 0.9% 250 ml @ 0.03 MCG/KG/MIN 7. 841 mls/hr IV .Q24H DEX Rx#:[id number] Norepinephrine 8 mg In 42.762 Sodium Chloride 0.9% 250 ml @ 0.03 MCG/KG/MIN 4. 213 mls/hr IV .Q24H DEX Rx#:[id number] Vancomycin 1,250 mg In 250 Sodium Chloride 0.9% 250 ml @ 125 mls/hr IVPB Q12HR DEX Rx#:[id number] fentaNYL (PF). 1,000 mcg 78.204 186.392 In Sodium Chloride 0.9% 80 ml @ 0.5 MCG/KG/HR 3. 629 mls/hr IV .Q24H DEX Rx#:[id number] propofoL 1,000 mg In 201.961 172.976 100 Empty Bag 1 bag @ 15 MCG/ KG/MIN 6.532 mls/hr IV . [id number] DEX Rx#:[id number] Tube Feeding 0 Other 90 Output: Gastric Drainage 350 350 Urine 694 720 325 Other: Voiding Method Indwelling Catheter Indwelling Catheter # Bowel Movements 0 1 ABP, PAP, CO, CI - Last Documented Arterial Blood Pressure 135/52 - Labs CBC & Chem 7: 12/16/24 04:10 12/16/24 04:10 Labs: Abnormal Lab Results - Last 24 Hours (Table) 12/15/24 12/15/24 12/15/24 Range/Units 04:11 11:47 17:35 RBC (3.80-5.40) m/uL Hgb (11.4-16.0) gm/dL Hct (34.0-46.0) % Lymphocytes # (1.0-4.8) k/uL ABG pH (7.35-7.45) ABG pO2 (83-108) mmHg ABG HCO3 (21-25) mmol/L ABG Total CO2 (19-24) mmol/L Hemoglobin (11.4-16.0) gm/dL Creatinine (0.52-1.04) mg/dL Glucose (74-99) mg/dL POC Glucose (mg/dL) 181 H 168 H (70-110) mg/dL Procalcitonin 30.70 H (0.02-0.50) ng/mL 12/15/24 12/16/24 12/16/24 Range/Units 23:26 04:10 04:10 RBC 2.61 L (3.80-5.40) m/uL Hgb 7.0 L (11.4-16.0) gm/dL Hct 22.5 L (34.0-46.0) % Lymphocytes # 0.7 L (1.0-4.8) k/uL ABG pH (7.35-7.45) ABG pO2 (83-108) mmHg ABG HCO3 (21-25) mmol/L ABG Total CO2 (19-24) mmol/L Hemoglobin (11.4-16.0) gm/dL Creatinine 0.34 L (0.52-1.04) mg/dL Glucose 147 H (74-99) mg/dL POC Glucose (mg/dL) 171 H (70-110) mg/dL Procalcitonin (0.02-0.50) ng/mL 12/16/24 12/16/24 Range/Units 04:27 05:32 RBC (3.80-5.40) m/uL Hgb (11.4-16.0) gm/dL Hct (34.0-46.0) % Lymphocytes # (1.0-4.8) k/uL ABG pH 7.49 H (7.35-7.45) ABG pO2 78 L (83-108) mmHg ABG HCO3 29 H (21-25) mmol/L ABG Total CO2 30 H (19-24) mmol/L Hemoglobin 6.8 L* (11.4-16.0) gm/dL Creatinine (0.52-1.04) mg/dL Glucose (74-99) mg/dL POC Glucose (mg/dL) 151 H (70-110) mg/dL Procalcitonin (0.02-0.50) ng/mL Microbiology - Last 24 Hours (Table) 12/13/24 19:00 Blood Culture - Preliminary Blood 12/13/24 19:17 Gram Stain - Preliminary Sputum Sputum Culture - Preliminary Presumptive Staph aureus
[2024-12-17 06:55] LABS: Basophils % (A) 0 %; Eosinophils % (A) 0 %; HCT 27.9 % (34.0-46.0); HGB 8.3 gm/dL (11.4-16.0); Hypochromasia Marked; Lymphocytes # (A) 0.5 k/uL (1.0-4.8); Lymphocytes % (A) 6 %; MCH 25.7 pg (25.0-35.0); MCHC 29.7 g/dL (31.0-37.0); MCV 86.3 fL (80.0-100.0); Mean Platelet Volume 7.4; Monocytes # (A) 0.5 k/uL (0-1.0); Monocytes % (A) 5 %; Neutrophils # (A) 7.9 k/uL (1.3-7.7); Neutrophils % (A) 88 %; Platelet Count 271 k/uL (150-450); RBC 3.23 m/uL (3.80-5.40); RDW 15.1 % (11.5-15.5)
[2024-12-17 07:18] LABS: African American GFR (CKD) >90 (>60 ml/min/1.73 sqM); Anion Gap 4 mmol/L; Blood Urea Nitrogen 17 mg/dL (7-17); Calcium 8.8 mg/dL (8.4-10.2); Carbon Dioxide 37 mmol/L (22-30); Chloride 100 mmol/L (98-107); Glucose 170 mg/dL (74-99); Non-African American GFR(CKD) >90 (>60 ml/min/1.73 sqM); Potassium 3.5 mmol/L (3.5-5.1); Sodium 141 mmol/L (137-145)
[2024-12-17] MEDS ORDERED: VANCOMYCIN TROUGH DUE 1 EACH MISC MISCELLANE ONE (08:00)
--- NOTE | 2024-12-17 08:08 | XR ---
EXAMINATION TYPE: XR chest 1V portable DATE OF EXAM: 12/17/2024 5:33 AM COMPARISON: Chest radiograph from one day prior. CLINICAL INDICATION: Female, 64 years old with history of f/u pneumonia; [facility] TECHNIQUE: XR chest 1V portable Frontal view of the chest. FINDINGS: Lungs/Pleura: Prominent interstitial lung markings are seen scattered throughout the lungs with incre ased lucency of the lung apices. No evidence of focal consolidation, pneumothorax or pleural effusion . Pulmonary vascularity: Unremarkable. Heart/mediastinum: Cardiomediastinal silhouette is unremarkable. Musculoskeletal: No acute osseous pathology. Other findings: None Lines/Tubes: Interval removal of the endotracheal tube. Interval removal of the enteric tube, Right internal jugular central venous catheter with distal tip at the cavoatrial junction. IMPRESSION: 1. Stable support line and tubes. 2. Cardiomegaly with trace pleural effusions. Correlate for congestive heart failure. 3. COPD changes. [facility], , 12/17/2024 8:06 AM
[2024-12-17] MEDS: POTASSIUM CHLORIDE ER 20 MEQ TAB.ER PO SCH (09:33)
[2024-12-17] MEDS: guaiFENesin-DM 600/30MG 1 EACH TAB.ER.12H PO SCH (11:37)
[2024-12-17] MEDS: FUROSEMIDE 10 MG/ML 4 ML VIAL IV STA (11:38)
[2024-12-17 11:43] LABS: Glucose,Whole Blood 222 mg/dL (70-110)
--- NOTE | 2024-12-17 12:38 | PN ---
PROGRESS NOTE SUBJECTIVE: Fabiola is a 64-year-old lady, who is admitted to hospital with respiratory failure, has pneumonia, mildly elevated troponin, secondary to respiratory failure and paroxysmal atrial fibrillation. She has been extubated, remains in sinus rhythm with sinus tachycardia and has uncontrolled hypertension. She is on metoprolol 25 b.i.d., which we will increase to 50 b.i.d. and on Xarelto for anticoagulation. PHYSICAL EXAMINATION: VITAL SIGNS: On exam, heart rate is around 90 beats per minute blood pressure is 158/110, respiratory rate is 18. CHEST: Reveals good air entry bilaterally. HEART: Reveals first and second heart sounds. No gallop. EXTREMITIES: Examination of extremities did not reveal any edema. Peripheral pulses are felt. LABORATORY DATA: Lab show that the potassium was 0.6. ASSESSMENT: 1. Paroxysmal atrial fibrillation. 2. Uncontrolled hypertension. 3. Pneumonia with respiratory failure. PLAN: The patient's hemoglobin is 8.3 today. We will increase the dose of metoprolol and add losartan for blood pressure control. MMODL / IJN: [id number] /
[2024-12-17] MEDS: METOPROLOL TARTRATE 25 MG TAB PO STA (13:46)
[2024-12-17 14:03] VITALS: BMI 25.6
--- NOTE | 2024-12-17 15:36 | P.PN ---
Subjective Progress Note Date: 12/17/24 Principal diagnosis: Reason for follow-up is sepsis/pneumonia Patient is a 64-year-old female with a past medical history significant for hypertension hyperlipidemia osteoarthritis COPD CVA TIA coronary artery disease patient has been brought into the hospital from a local assisted unresponsive, patient did have a fever abnormal x-ray concerning for possible pneumonia/sepsis. On today's evaluation that is 12/17/2024,the patient remains to be afebrile, patient has been extubated and is currently breathing comfortably on 4 L current oxygen denies any chest pain or worsening cough no abdominal pain or diarrhea. Patient white count is normalized to 9.0, creatinine 0.62 sputum is growing MSSA Objective - Vital Signs Vital signs: Vital Signs Temp 98.5 F 12/17/24 12:00 Pulse 104 H 12/17/24 13:21 Resp 20 12/17/24 12:00 BP 141/79 12/17/24 12:00 Pulse Ox 89 L 12/17/24 12:00 FiO2 100 12/17/24 04:00 Intake & Output 12/16/24 12/17/24 12/17/24 18:59 06:59 18:59 Intake Total 1189.276 430 125 Output Total 3775 1315 675 Balance -2585.724 -885 -550 Weight 67.7 kg 67.7 kg Intake: IV 959 430 125 0.9 KVO 110 40 Cefepime 2 gm In Sodium 200 100 25 Chloride 0.9% 100 ml @ 25 mls/hr IVPB Q8H DEX Rx#: [id number] Lactated Ringers 1,000 ml 235 220 60 @ 20 mls/hr IV .Q24H DEX Rx#:[id number] Vancomycin 1,500 mg In 500 Sodium Chloride 0.9% 500 ml 500 ml @ 167 mls/hr IVPB Q12HR DEX Rx#: [id number] pressure bag 24 Intake, IV Titration 230.276 Amount fentaNYL (PF). 1,000 mcg 62.598 In Sodium Chloride 0.9% 80 ml @ 0.5 MCG/KG/HR 3. 629 mls/hr IV .Q24H DEX Rx#:[id number] propofoL 1,000 mg In 167.678 Empty Bag 1 bag @ 15 MCG/ KG/MIN 6.532 mls/hr IV . [id number] DEX Rx#:[id number] Output: Urine 5482 6830 675 Other: Voiding Method Indwelling Catheter Indwelling Catheter Indwelling Catheter ABP, PAP, CO, CI - Last Documented Arterial Blood Pressure 163/60 - Exam GENERAL DESCRIPTION: An elderly female lying in bed in no distress RESPIRATORY SYSTEM: Unlabored breathing , decreased breath sounds at bases HEART: S1 S2 regular rate and rhythm , ABDOMEN: Soft , no tenderness EXTREMITIES: No edema feet - Labs CBC & Chem 7: 12/17/24 06:27 12/17/24 06:27 Labs: Abnormal Lab Results - Last 24 Hours (Table) 12/17/24 12/17/24 12/17/24 Range/Units 00:06 06:04 06:27 RBC (3.80-5.40) m/uL Hgb (11.4-16.0) gm/dL Hct (34.0-46.0) % MCHC (31.0-37.0) g/dL Neutrophils # (1.3-7.7) k/uL Lymphocytes # (1.0-4.8) k/uL Carbon Dioxide 37 H (22-30) mmol/L Glucose 170 H (74-99) mg/dL POC Glucose (mg/dL) 132 H 189 H (70-110) mg/dL 12/17/24 12/17/24 Range/Units 06:27 11:41 RBC 3.23 L (3.80-5.40) m/uL Hgb 8.3 L (11.4-16.0) gm/dL Hct 27.9 L (34.0-46.0) % MCHC 29.7 L (31.0-37.0) g/dL Neutrophils # 7.9 H (1.3-7.7) k/uL Lymphocytes # 0.5 L (1.0-4.8) k/uL Carbon Dioxide (22-30) mmol/L Glucose (74-99) mg/dL POC Glucose (mg/dL) 222 H (70-110) mg/dL Microbiology - Last 24 Hours (Table) 12/16/24 08:40 Gram Stain - Preliminary Bronchoalviolar Lavage - Right Bronchial Washings Culture - Preliminary Presumptive Staph aureus 12/13/24 19:00 Blood Culture - Preliminary Blood Assessment and Plan (1) Pneumonia Current Visit: Yes Status: Acute Code(s): J18.9 - PNEUMONIA, UNSPECIFIED ORGANISM SNOMED Code(s): 734585900 (2) Sepsis Current Visit: Yes Status: Acute Code(s): A41.9 - SEPSIS, UNSPECIFIED ORGANISM SNOMED Code(s): 68587634 Plan: 1patient presented to hospital with sepsis in this patient who did have fever of 103 F reported by the EMS tachycardia elevated white count meeting criteria for SIRS/sepsis source likely pneumonia as no evidence of any cellulitis abdominal tenderness UA has been reported negative and will need to cover for the resistant gram-positive as well as gram-negative pathogen 2-blood cultures currently pending sputum is growing and MSSA and [place] 3-patient she did provide and white count normalized continue with cefepime monitor clinical course closely Dictation was produced using [employer] dictation software. please excuse any grammatical, word or spelling errors. Time with Patient: Less than 30
[2024-12-17 17:11] LABS: Glucose,Whole Blood 116 mg/dL (70-110)
[2024-12-17 17:43] LABS: Glucose,Whole Blood 164 mg/dL (70-110)
--- NOTE | 2024-12-17 18:31 | P.PN ---
Subjective Progress Note Date: 12/17/24 Patient is a 64-year-old female with past medical history significant for atrial fibrillation anticoagulated on Xarelto, coronary artery disease, hypertension, hyperlipidemia, CVA/TIA, seizure disorder, polysubstance abuse, GERD, Crohn's disease, COPD, home O2 dependence, among other things. Patient currently intubated mechanical ventilator unable to provide information. According to the ER documentation patient was sent in from [facility]. Noted to be minimally responsive and did require bag mask ventilation. Intubated on arrival in the emergency department. Workup in the ED including a chest x-ray which shows the endotracheal tube terminating approximately 4 cm above the della. Enteric tube coursing below the diaphragm. Right IJ central line catheter with the tip terminating near the cavoatrial junction. Patchy opacities bilateral suggestive of multifocal pneumonia. CBC: WBC count elevated at 40, hemoglobin 9.2, platelets 461. CMP: Sodium 135, potassium 5.3, chloride 100, serum bicarb 32, BUN 16, creatinine 0.55, glucose 206. Lactic 0.9. LFTs not elevated. Ammonia 79. Troponin less than 0.012 and then 0.05. NT proBNP 256. Brain CT did not show any acute intracranial process, no acute intraparenchymal hemorrhage or mass effect. CT of the head and neck did not show any evidence of dissection of the cervical internal carotid arteries or vertebral arteries. No evidence of significant flow-limiting stenosis at the carotid bifurcation. No evidence of intracranial high-grade stenosis or intracranial aneurysm. Urine toxicology screen positive for opiates and tricyclic antidepressants. Urinalysis unremarkable for UTI. Initial ABG following intubation done on FiO2 of 100% showing a PaO2 of 215, pCO2 65, pH of 7.25. Patient currently being seen in the emergency department, trauma bay 2. Remains intubated mechanical ventilator with current ventilator settings assist-control, respiratory rate 20, tidal volume 450, FiO2 70%, PEEP of 5. Most recent ABGs from this morning done on the settings show improvement in the patient's acid-base balance and there is a PaO2 of 193, pCO2 of 42, pH of 7.46. FiO2 was per appropriately dropped to 50%. Peak airway pressure 32 with a static pressure of 16, indicating some component of airway resistance. Patient is currently synchronous with set rate. Sedated on propofol which is infusing at 30 mcg/kg/min. Fentanyl is also infusing at 0.5 mcg/kg/h. Previously fluid resuscitated with 2 L lactated Ringer's IV bolus and continues with Lactated Ringer's infusing at 130 mL/h. Blood pressure remained hypotensive despite fluid resuscitation and started on low-dose norepinephrine which is infusing at 0.07 mcg/kg/min. Patient is awaiting a bed in the intensive care unit On 12/15/2024, the patient is being seen for a follow-up. Remains intubated on the mechanical ventilator. This morning, the patient is on propofol running at 50 mcg/kg/min and fentanyl is running at 1 mcg/kg/h. The patient is on assist-control mode of mechanical ventilation at rate of 20, tidal volume of 450, FiO2 50% with a PEEP of 5. Blood gas showed a pH of 7.41 with a pCO2 46 and pO2 of 95. The follow-up chest x-ray was done this morning and the patient continues to have volume loss in the right lung base along with atelectatic changes in the right lung base and possibly some consolidation effusion. The patient also has cardiomegaly and background COPD. A CAT scan of the chest was also completed yesterday and the patient was found to have advanced emphysematous changes bilaterally with upper lobe predominance. There is also small bilateral pleural effusion right more than left, right basilar consolidation/atelectasis and an abrupt cutoff sign in the right lower lobe bronchus. Obviously, this needs to be further investigated and the patient will need a bronchoscopy to evaluate the patency of the right lower lobe. WBC count is at 14.1, hemoglobin 7.7 and the platelet count is up to 73. Sodium is at 137, potassium 3.8, BUN is 9 with a creatinine of 0.37. In terms of antibiotic coverage, the patient is on IV cefepime and vancomycin. The sputum sample is showing presumptive staff aureus. ID is on the case. On 12/16/2024, the patient is intubated on mechanical ventilator. The patient is on propofol running at 50 mcg/kg/min and fentanyl which is running at 1 mcg/kg/h. She is calm and comfortable and synchronous on mechanical ventilator. Chest x-ray was noted from this morning and there is some worsening in the bibasilar consolidation and some volume loss in the right lung base and the patient also has cardiomegaly and pulm vessel congestion. Based on that, a bronchoscopy was done and copious amount of blood. Treated with aspirated from the right lower lobe bronchus. The airway was patent and there was no evidence of any endobronchial tumors or lesions. Therapeutic airway suctioning was done and a bronchial lavage of the right lower lobe was obtained. Meanwhile, the patient remains on the mechanical ventilator, this morning, she is on assist- control mode with rate of 20, tidal volume of 450, FiO2 50% with a PEEP of 5. Blood gas showed a pH of 7.49 with a pCO2 of 38 and pO2 of 78. The patient is on no pressors. The white cell count is at 8.4 with a hemoglobin of 7 and a platelet count of 237. Electrolytes are all within normal limits. BUN is 12 with a creatinine of 0.34. The sputum sample that was collected earlier on 12/13/2024 showed MSSA. The patient remains on broad-spectrum antibiotics and the patient remains on IV cefepime and vancomycin. Remains on bronchodilators. Remains on steroids. Peak airway pressure is around 24. Continues to receive enteral feeding for nutritional support. IV fluids will be cut down to KVO. On 12/17/2024, the patient is extubated, awake and calm and comfortable and communicating. The patient is afebrile hemodynamically stable on 4 L of oxygen by nasal cannula. The follow-up chest x-ray from this morning shows some interval improvement in aeration of the right lung base. There is persistent cardiomegaly and trace pleural effusion bilaterally and the cardiopulmonary silhouette is unremarkable. The patient continues to have a congested cough. Unable to bring up much sputum. Bronchoscopy endobronchial lavage was done prior to extubation and the cultures are showing presumptive Staph aureus. This has been confirmed to be MSSA the patient remains on cefepime. Remains on DuoNeb nebulized treatments [id number]. Remains on a combination performance of Pulmicort. Remains on IV Solu-Medrol. Remains on lactated Ringer at rate of 20 cc an hour. Remains on IV Solu-Medrol 60 mg every 6 hours. The white cycles of time with hemoglobin 8.3 with a platelet count of 271. BUN 17 with a creatinine of 0.6. Sodium levels at 141 with a potassium level of 3.5. Serum bicarb is at 37. No other significant events overnight. Patient has been extubated on 12/16/2024. Objective - Vital Signs Vital signs: Vital Signs Temp 98.3 F 12/17/24 04:00 Pulse 102 H 12/17/24 09:01 Resp 23 12/17/24 07:00 BP 159/76 12/17/24 07:00 Pulse Ox 92 L 12/17/24 08:48 FiO2 100 12/17/24 04:00 Intake & Output 12/16/24 12/17/24 12/17/24 18:59 06:59 18:59 Intake Total 1189.276 430 90 Output Total 3775 1315 475 Balance -2585.724 -885 -385 Weight 67.7 kg Intake: IV 959 430 90 0.9 KVO 110 30 Cefepime 2 gm In Sodium 200 100 Chloride 0.9% 100 ml @ 25 mls/hr IVPB Q8H DEX Rx#: [id number] Lactated Ringers 1,000 ml 235 220 60 @ 20 mls/hr IV .Q24H DEX Rx#:[id number] Vancomycin 1,500 mg In 500 Sodium Chloride 0.9% 500 ml 500 ml @ 167 mls/hr IVPB Q12HR DEX Rx#: [id number] pressure bag 24 Intake, IV Titration 230.276 Amount fentaNYL (PF). 1,000 mcg 62.598 In Sodium Chloride 0.9% 80 ml @ 0.5 MCG/KG/HR 3. 629 mls/hr IV .Q24H DEX Rx#:[id number] propofoL 1,000 mg In 167.678 Empty Bag 1 bag @ 15 MCG/ KG/MIN 6.532 mls/hr IV . [id number] DEX Rx#:[id number] Output: Urine 3775 1315 475 Other: Voiding Method Indwelling Catheter Indwelling Catheter ABP, PAP, CO, CI - Last Documented Arterial Blood Pressure 163/60 - Exam GENERAL EXAM: Sedated, 64-year-old female, extubated, currently on 4 L of oxygen by nasal cannula HEAD: Normocephalic and atraumatic EYES: Normal reaction of pupils, equal size. NOSE: Clear with pink turbinates. THROAT: No erythema or exudates. NECK: No masses, no JVD. Right IJ central line catheter secured in place CHEST: No chest wall deformity. LUNGS: Equal air entry with scattered rhonchi. Intubated mechanical ventilator. CVS: S1 and S2 normal with no audible murmur, regular rhythm. No extra heart sounds ABDOMEN: No hepatosplenomegaly, active bowel sounds, no guarding or rigidity. SPINE: No scoliosis or deformity SKIN: No rashes CENTRAL NERVOUS SYSTEM: Neurologically, the patient is awake and alert and the patient does not have any focal neurological deficit. Cranial nerves are essentially intact. EXTREMITIES: There is no peripheral edema, clubbing, or cyanosis. Peripheral pulses are intact. - Labs CBC & Chem 7: 12/17/24 06:27 12/17/24 06:27 Labs: Abnormal Lab Results - Last 24 Hours (Table) 12/16/24 12/17/24 12/17/24 Range/Units 13:47 00:06 06:04 RBC (3.80-5.40) m/uL Hgb (11.4-16.0) gm/dL Hct (34.0-46.0) % MCHC (31.0-37.0) g/dL Neutrophils # (1.3-7.7) k/uL Lymphocytes # (1.0-4.8) k/uL ABG pCO2 49 H (35-45) mmHg ABG HCO3 33 H (21-25) mmol/L ABG Total CO2 35 H (19-24) mmol/L ABG O2 Saturation 97.7 H (94-97) % Hemoglobin 8.0 L (11.4-16.0) gm/dL Carbon Dioxide (22-30) mmol/L Glucose (74-99) mg/dL POC Glucose (mg/dL) 132 H 189 H (70-110) mg/dL 12/17/24 12/17/24 Range/Units 06:27 06:27 RBC 3.23 L (3.80-5.40) m/uL Hgb 8.3 L (11.4-16.0) gm/dL Hct 27.9 L (34.0-46.0) % MCHC 29.7 L (31.0-37.0) g/dL Neutrophils # 7.9 H (1.3-7.7) k/uL Lymphocytes # 0.5 L (1.0-4.8) k/uL ABG pCO2 (35-45) mmHg ABG HCO3 (21-25) mmol/L ABG Total CO2 (19-24) mmol/L ABG O2 Saturation (94-97) % Hemoglobin (11.4-16.0) gm/dL Carbon Dioxide 37 H (22-30) mmol/L Glucose 170 H (74-99) mg/dL POC Glucose (mg/dL) (70-110) mg/dL Microbiology - Last 24 Hours (Table) 12/16/24 08:40 Gram Stain - Preliminary Bronchoalviolar Lavage - Right 12/13/24 19:00 Blood Culture - Preliminary Blood 12/13/24 19:17 Gram Stain - Final Sputum Sputum Culture - Final Staphylococcus aureus [place] albicans Assessment and Plan Assessment: Acute hypoxemic and hypercapnic respiratory failure, secondary acute exacerbation and bibasilar pneumonia. The patient has significant volume loss in the right lung base along with area of consolidation. A bronchoscopy was done on 12/16/2024 and copious amount of respiratory secretions were identified in the right lower lobe bronchus. Nevertheless, there was no evidence of any endobronchial tumors or lesions. The presumptive results from the BAL is positive for Staph aureus and the previous sputum sample is positive for MSSA and the patient remains on a combination of cefepime The patient has had previous bronchoscopy and infection with stenotrophomonas back in September 2024.. CAT scan of the chest done on 12/14/2024 showed small bilateral pleural effusion, diffuse emphysematous changes bilaterally with upper lobe predominance and the patient also has right basilar atelectasis/consolidation/volume loss along with an abrupt cut off sign in the right lower lobe bronchus. The patient was extubated on 12/16/2024 and the patient is currently on 40 of oxygen nasal cannula Acute COPD exacerbation with secondary respiratory failure, improving and the patient obviously is less bronchospastic and wheezy Pneumonia/sepsis, rule out possibility of right lower lobe pneumonia/ate lectasis. Sputum sample was positive for Staph aureus and the patient remains on cefepime Acute leukocytosis, secondary to above, improved Hypotension secondary to sepsis, improved and the patient is currently normotensive on no pressors History of paroxysmal atrial fibrillation, anticoagulated on Xarelto, currently sinus mechanism Chronic anemia Chronic obstructive pulmonary disease Chronic hypoxemic respiratory failure History recent of bronchoscopy with BAL done October 02, 2024, microbiology positive for stenotrophomonas maltophilia at that time. History of hypertension History of hyperlipidemia Coronary artery disease History of CVA/TIA History of seizure disorder, on Keppra History of polysubstance abuse History of gastroesophageal reflux disease History of Crohn's disease Chronic nicotine dependence History of anxiety/depression/bipolar Plan: Patient was extubated on 12/16/2024 Bronchoscopy and therapeutic airway suctioning was done and copious amount of re sp secretions were suctioned from the right lung especially from the right lower lobe endobronchial lavage was also done on 12/16/2024 Continue bronchodilators Continue steroids Continue cefepime Sputum sample was positive for MSSA BAL also showing Staph aureus CAT scan of the chest from 12/14/2024 was noted Patient is currently off pressors Continue anticoagulation with Xarelto Dropped respiratory rate down to 14 IV fluids to KVO Give Lasix 40 mg IV x 1 Mucinex DM for cough and congestion Aggressive pulmonary toileting This evaluation is a critical care evaluation and this was done and 33 minutes. Time with Patient: Greater than 30
[2024-12-17] MEDS: INSULIN LISPRO (HumaLOG) 100 UNIT/ML 10 mL VL SQ SCH (20:17)
[2024-12-17 20:18] LABS: Glucose,Whole Blood 194 mg/dL (70-110)
[2024-12-17] MEDS: METOPROLOL TARTRATE 50 MG TAB PO SCH (20:18)
[2024-12-18 06:13] LABS: Glucose,Whole Blood 102 mg/dL (70-110)
[2024-12-18 07:44] LABS: Basophils % (A) 0 %; Eosinophils % (A) 0 %; HCT 26.7 % (34.0-46.0); HGB 8.2 gm/dL (11.4-16.0); Hypochromasia Slight; Lymphocytes # (A) 1.1 k/uL (1.0-4.8); Lymphocytes % (A) 13 %; MCH 26.1 pg (25.0-35.0); MCHC 30.9 g/dL (31.0-37.0); MCV 84.7 fL (80.0-100.0); Mean Platelet Volume 7.2; Monocytes # (A) 0.6 k/uL (0-1.0); Monocytes % (A) 8 %; Neutrophils # (A) 6.6 k/uL (1.3-7.7); Neutrophils % (A) 78 %; Platelet Count 306 k/uL (150-450); RBC 3.15 m/uL (3.80-5.40); RDW 15.1 % (11.5-15.5); WBC 8.5 k/uL (3.8-10.6)
[2024-12-18 07:54] LABS: African American GFR (CKD) >90 (>60 ml/min/1.73 sqM); Anion Gap 3 mmol/L; Blood Urea Nitrogen 20 mg/dL (7-17); Calcium 8.9 mg/dL (8.4-10.2); Carbon Dioxide 38 mmol/L (22-30); Chloride 96 mmol/L (98-107); Glucose 85 mg/dL (74-99); Magnesium 1.6 mg/dL (1.6-2.3); Non-African American GFR(CKD) >90 (>60 ml/min/1.73 sqM); Potassium 3.6 mmol/L (3.5-5.1); Sodium 137 mmol/L (137-145)
--- NOTE | 2024-12-18 08:14 | XR ---
EXAMINATION TYPE: XR chest 1V DATE OF EXAM: 12/18/2024 7:29 AM COMPARISON: Chest radiograph from one day prior. CLINICAL INDICATION: Female, 64 years old with history of PNEUMONIA; MERGED WITH [facility] TECHNIQUE: XR chest 1V Frontal view of the chest. FINDINGS: Lungs/Pleura: Scattered subtle reticular and hazy opacities. No evidence of pneumothorax, focal conso lidation or pleural effusion. Pulmonary vascularity: Unremarkable. Heart/mediastinum: Cardiomediastinal silhouette is unremarkable. Musculoskeletal: No acute osseous pathology. Other findings: None IMPRESSION: Subtle scattered opacities which may represent an atypical pneumonia. [facility], , 12/18/2024 8:12 AM
--- NOTE | 2024-12-18 09:58 | P.PN ---
Subjective Progress Note Date: 12/17/24 This is a 64-year-old female who presented to the emergency department from [facility] and was noted to be unresponsive and apparently per [facility] staff patient was baseline this morning. Patient also noted to have a 103 temp while at the facility and patient was transported here via EMS for further evaluation. Patient has a significant past medical history of atrial fibrillation, coronary artery disease, angina, COPD, previous CVA, GERD, hyperlipidemia, hypertension, osteoarthritis, seizure disorder, Crohn's disease, anxiety/bipolar depression, history of polysubstance abuse, continued ongoing nicotine dependence, past history of alcohol abuse. Patient with significant weakness had been at [facility] for quite some time and has had multiple hospitalizations for significant comorbidities. Patient labs reviewed on admission revealing a white count of 39.7, hemoglobin 9.2, platelets 461, ABG revealing a pH of 7.25, pCO2 elevated at 65, pO2 215, bicarb elevated at 29. Sodium was 135 with a potassium of 5.3, creatinine 0.55, blood sugars elevated, lactic acid 1.4, calcium 8.1, ammonia level 79, troponin 0.052, BNP 256, TSH 3.6, urinalysis negative, urine drug screen was positive for opiates and TCAs otherwise virology testing was all negative including RSV, COVID, influenza. Chest x-ray on admission showed patchy infiltrate opacities bilateral suggestive of multifocal pneumonia and patient is currently on mechanical ventilation. Brain CT showing no acute intracranial process, EKG showing sinus tachycardia with occasional PVCs possible atrial flutter although repeat EKG showing sinus tachycardia. Patient being admitted to ICU with pulmonary and neurology on consultation. 12/15/2024 Patient is seen in follow-up today continues in the ICU on mechanical ventilation with to a 50% and PEEP is 5. No plans of weaning at this time and discussing the need for bronchoscopy. Preliminary sputum culture showing Staph aureus and maintained on cefepime with infectious disease following. Patient is also maintained on steroids and will continue with sliding scale and adjust insulins accordingly. 12/16/2024 Patient is seen in follow-up today continues on mechanical ventilation with an F iO2 of 50% and PEEP is 5. No plans for extubation at this time and is scheduled to undergo bronchoscopy with pulmonary insight director. Patient is maintained on antibiotics with preliminary culture showing Staph aureus. 12/17/2024 Patient is seen in follow-up today status post extubation maintained on 4 L via nasal cannula and tolerating well. Patient is alert and oriented and following commands appropriately. Chest x-ray today reveals stable with cardiomegaly and trace pleural effusions correlate for CHF with COPD changes. Preliminary culture showing Staph aureus and [place] on the initial sputum and is status post bronchoscopy with lavage and preliminary is showing Staph aureus. Infecti ous disease following and patient is maintained on IV antibiotics in the form of cefepime and will continue. Patient was given a dose of Lasix yesterday and recommend close monitoring of volume overload and discontinuing fluids once patient is tolerating some diet. Patient also continues on [id number] DuoNeb treatments along with some Mucinex being added and steroids. Continue monitoring Accu-Cheks and continue with sliding scale as needed. Patient will need reevaluation by physical therapy for significant weakness with plans on returning to [facility]. Review of systems: Constitutional: No reports of fatigue, fever, or chills Cardiovascular: No reports of chest pain or palpitations Respiratory: No reports of worsening shortness of breath reports a week cough and mild sore throat GI: No reports of nausea, vomiting, or diarrhea : No reports of dysuria or retention Neurovascular:reports of weakness All medications have been reviewed PHYSICAL EXAMINATION: GENERAL: The patient is recently extubated 30 minutes prior maintained on 4 L, alert and oriented x 3, thin built, cachectic, ill-appearing, appears elderly HEENT: Pupils are round and equally reacting to light. EOMI. No scleral icterus. No conjunctival pallor. Normocephalic, atraumatic. No pharyngeal erythema. No thyromegaly. CARDIOVASCULAR: S1 and S2 muffled PULMONARY: Diminished breath sounds bilaterally with some faint expiratory wheezing and coarse scattered rhonchi noted, no accessory muscle use noted ABDOMEN: Soft, nontender, nondistended, normoactive bowel sounds. No palpable organomegaly. MUSCULOSKELETAL: No joint swelling or deformity. EXTREMITIES: No cyanosis, clubbing, or pedal edema. NEUROLOGICAL: Alert and oriented x 3, following commands, diffusely weak SKIN: No rashes. Pale Assessment: Acute on chronic hypoxic respiratory failure, multifactorial secondary to acute COPD exacerbation along with concerns of pneumonia of the right lower lobe, possible aspiration/atelectasis, preliminary sputum culture showing Staph aureus Sepsis, present on admission secondary to acute right lower lobe pneumonia requiring mechanical ventilation, status post extubation today on 12/17/2024, maintained on 4 L. Sputum culture showing Staph aureus and [place] and is also status post bronchoscopy with cultures pending COPD acute exacerbation Leukocytosis, multifactorial secondary to sepsis as well as possible steroid- induced Refractory hypotension, likely secondary to sepsis requiring pressor support, improved and off pressor support is a downgrade once 3 S. bed becomes available Hypertension history Continued ongoing nicotine dependence History of Crohn's disease with IBS, follows with GI outpatient History of chronic anemia History of chronic back pain History of anxiety/depression/bipolar disorder History of seizure disorder maintained on Keppra History of CVA History of polysubstance abuse with crack/cocaine and has not used those illicit drugs in quite some time GI prophylaxis DVT prophylaxis Full code Plan: Patient was admitted with acute on chronic hypoxic respiratory failure, suspicious for possible aspiration right lower lobe pneumonia. Patient started on antibiotics with pulmonary insight director following. Pulmonary following status post bronchoscopy and preliminary culture showing staph aureus, previous sputum culture positive for Staph aureus and [place] albicans, maintained on cefepime with infectious disease following Patient was extubated today successfully, currently maintained on 4 L and off pressor support is a downgrade out of ICU once a bed becomes available Neurology following the patient undergoing further workup as patient was found unresponsive, EEG was taken and pending Appropriate home medications will be reviewed and resumed once patient is tolerating swallow Continue monitoring Accu-Cheks before meals and at bedtime as patient is on high-dose steroids 60 mg every 6 for COPD exacerbation. Will adjust insulins accordingly Recommend incentive spirometer use and will continue on DuoNeb treatments and steroids. PT/OT therapy to evaluate with case management following as patient will be returning to [facility] on discharge The impression and plan of care has been dictated by Nurse Aminah Sevillaitioner as directed. Dr. Antonette MD I have performed a history and examination and MDM of this patient, discussed the same with the dictator, and agree with the dictator's assessment and plan as written ,documented as a scribe. Based on total visit time, I have performed more than 50% of the visit. Objective - Vital Signs Vital signs: Vital Signs Temp 98.3 F 12/17/24 04:00 Pulse 102 H 12/17/24 09:01 Resp 23 12/17/24 07:00 BP 159/76 12/17/24 07:00 Pulse Ox 92 L 12/17/24 08:48 FiO2 100 12/17/24 04:00 Intake & Output 12/16/24 12/17/24 12/17/24 18:59 06:59 18:59 Intake Total 1189.276 430 90 Output Total 3775 1315 475 Balance -2585.724 -885 -385 Weight 67.7 kg Intake: IV 959 430 90 0.9 KVO 110 30 Cefepime 2 gm In Sodium 200 100 Chloride 0.9% 100 ml @ 25 mls/hr IVPB Q8H DEX Rx#: [id number] Lactated Ringers 1,000 ml 235 220 60 @ 20 mls/hr IV .Q24H DEX Rx#:[id number] Vancomycin 1,500 mg In 500 Sodium Chloride 0.9% 500 ml 500 ml @ 167 mls/hr IVPB Q12HR DEX Rx#: [id number] pressure bag 24 Intake, IV Titration 230.276 Amount fentaNYL (PF). 1,000 mcg 62.598 In Sodium Chloride 0.9% 80 ml @ 0.5 MCG/KG/HR 3. 629 mls/hr IV .Q24H DEX Rx#:[id number] propofoL 1,000 mg In 167.678 Empty Bag 1 bag @ 15 MCG/ KG/MIN 6.532 mls/hr IV . [id number] DEX Rx#:[id number] Output: Urine 3775 1315 475 Other: Voiding Method Indwelling Catheter Indwelling Catheter ABP, PAP, CO, CI - Last Documented Arterial Blood Pressure 163/60 - Labs CBC & Chem 7: 12/18/24 07:21 12/18/24 07:21 Labs: Abnormal Lab Results - Last 24 Hours (Table) 12/16/24 12/17/24 12/17/24 Range/Units 13:47 00:06 06:04 RBC (3.80-5.40) m/uL Hgb (11.4-16.0) gm/dL Hct (34.0-46.0) % MCHC (31.0-37.0) g/dL Neutrophils # (1.3-7.7) k/uL Lymphocytes # (1.0-4.8) k/uL ABG pCO2 49 H (35-45) mmHg ABG HCO3 33 H (21-25) mmol/L ABG Total CO2 35 H (19-24) mmol/L ABG O2 Saturation 97.7 H (94-97) % Hemoglobin 8.0 L (11.4-16.0) gm/dL Carbon Dioxide (22-30) mmol/L Glucose (74-99) mg/dL POC Glucose (mg/dL) 132 H 189 H (70-110) mg/dL 12/17/24 12/17/24 Range/Units 06:27 06:27 RBC 3.23 L (3.80-5.40) m/uL Hgb 8.3 L (11.4-16.0) gm/dL Hct 27.9 L (34.0-46.0) % MCHC 29.7 L (31.0-37.0) g/dL Neutrophils # 7.9 H (1.3-7.7) k/uL Lymphocytes # 0.5 L (1.0-4.8) k/uL ABG pCO2 (35-45) mmHg ABG HCO3 (21-25) mmol/L ABG Total CO2 (19-24) mmol/L ABG O2 Saturation (94-97) % Hemoglobin (11.4-16.0) gm/dL Carbon Dioxide 37 H (22-30) mmol/L Glucose 170 H (74-99) mg/dL POC Glucose (mg/dL) (70-110) mg/dL Microbiology - Last 24 Hours (Table) 12/16/24 08:40 Gram Stain - Preliminary Bronchoalviolar Lavage - Right 12/13/24 19:00 Blood Culture - Preliminary Blood 12/13/24 19:17 Gram Stain - Final Sputum Sputum Culture - Final Staphylococcus aureus [place] albicans
[2024-12-18] MEDS: LOSARTAN 50 MG TAB PO SCH (10:53)
[2024-12-18 12:04] LABS: Glucose,Whole Blood 137 mg/dL (70-110)
--- NOTE | 2024-12-18 13:07 | P.PN ---
Subjective Progress Note Date: 12/18/24 I am following-up with patient and she feels she is drastically better. Mentation is drastically improving. She is getting breathing treatment. Objective - Vital Signs Vital signs: Vital Signs Temp 98.4 F 12/18/24 12:13 Pulse 71 12/18/24 12:13 Resp 14 12/18/24 12:13 BP 179/78 12/18/24 12:13 Pulse Ox 98 12/18/24 12:13 FiO2 100 12/17/24 04:00 Intake & Output 12/17/24 12/18/24 12/18/24 18:59 06:59 18:59 Intake Total 925 240 Output Total 3375 1999 750 Balance -2450 -1760 -750 Weight 67.7 kg 67.5 kg Intake: IV 125 0.9 KVO 40 Cefepime 2 gm In Sodium 25 Chloride 0.9% 100 ml @ 25 mls/hr IVPB Q8H DEX Rx#: [id number] Lactated Ringers 1,000 ml 60 @ 20 mls/hr IV .Q24H DEX Rx#:[id number] Oral 800 240 Output: Urine 3375 1999 750 Other: Voiding Method Indwelling Catheter Indwelling Catheter # Bowel Movements 2 ABP, PAP, CO, CI - Last Documented Arterial Blood Pressure 163/60 - Exam General: Sitting up in bed getting breathing treatment and is not in acute distress. Neuro: Awake, alert, oriented to self and place. Is following simple commands. No aphasia. No facial weakness. No dysthria. Motor: Is lifting all extremities above gravity equally. Some of the workup this hospital visit consisted of: Patient is afebrile White blood cell is 39.7 thousand predominantly neutrophilic-->resolved Initial POC glucose is 241 Ammonia level 79 TSH is 3.650 Sodium is 135 Potassium is 5.3 Plasma lactic acid vein initial presentation 0.9. Urine drug screen is positive for tricyclic antidepressant as well as opiate. The head is negative for any acute process. I personally reviewed the CT of the head and I agree with report CT angiography of the head and neck is reported as no evidence of dissection of cervical internal carotid artery or vertebral artery. No evidence of significant/flow-limiting stenosis at the carotid bifurcation. No evidence of intracranial high-grade stenosis or intracranial aneurysm. The EEG is abnormal during awake and drowsy state. The background slowing is suggestive of moderate encephalopathy likely due to toxic metabolic derangement as well as medication induced (IV Propofol). Otherwise there is no focal slowing, epileptiform discharge or seizure on the EEG. - Labs CBC & Chem 7: 12/18/24 07:21 12/18/24 07:21 Labs: Abnormal Lab Results - Last 24 Hours (Table) 12/17/24 12/17/24 12/17/24 Range/Units 17:10 17:41 20:13 RBC (3.80-5.40) m/uL Hgb (11.4-16.0) gm/dL Hct (34.0-46.0) % MCHC (31.0-37.0) g/dL Chloride (98-107) mmol/L Carbon Dioxide (22-30) mmol/L BUN (7-17) mg/dL Creatinine (0.52-1.04) mg/dL POC Glucose (mg/dL) 116 H 164 H 194 H (70-110) mg/dL 12/18/24 12/18/24 12/18/24 Range/Units 07:21 07:21 12:02 RBC 3.15 L (3.80-5.40) m/uL Hgb 8.2 L (11.4-16.0) gm/dL Hct 26.7 L (34.0-46.0) % MCHC 30.9 L (31.0-37.0) g/dL Chloride 96 L (98-107) mmol/L Carbon Dioxide 38 H (22-30) mmol/L BUN 20 H (7-17) mg/dL Creatinine 0.48 L (0.52-1.04) mg/dL POC Glucose (mg/dL) 137 H (70-110) mg/dL Microbiology - Last 24 Hours (Table) 12/16/24 08:40 Gram Stain - Final Bronchoalviolar Lavage - Right Bronchial Washings Culture - Final Staphylococcus aureus 12/13/24 19:00 Blood Culture - Preliminary Blood Assessment and Plan Assessment: This is a 64-year-old woman who presents from her nursing facility because patient is unresponsive. She was found to have a fever of 102F and during this hospital visit her leukocytosis is as high as 39K. Intubated on a ventilator. Has elevated ammonia level. X-ray is suggestive of possible pneumonia Altered mental status seems due to septic encephalopathy. Appears pneumonia. Also has some component of metabolic encephalopathy with elevated ammonia. Routine EEG shows moderate encephalopathy but no seizure or discharges--mentation improved Pneumonia Slightly elevated ammonia level of 79 Acute hypoxemic and hypercapnic respiratory failure status post intubated on the ventilator Underlying history of atrial fibrillation on Xarelto History of seizure on Keppra History of stroke/TIA History of hypertension Hyperlipidemia History of coronary artery disease History of Crohn's disease History of COPD on home oxygen History of polysubstance abuse and the current urine drug screen is positive for TCA as well as opiates Plan: Infection diseases on board and I will defer modification of antibiotic to them. Will defer the rest of the medical management to primary other specialist The plan is discussed with primary team N.P. There is no further neurological work-up. Will sign off. Please reconsult if needed. Time with Patient: Less than 30
--- NOTE | 2024-12-18 13:55 | P.PN ---
Subjective Progress Note Date: 12/18/24 This is a 64-year-old female patient presented with pneumonia and respiratory failure requiring intubation and mechanical ventilation. Patient has been extubated and transferred to the cardiac stepdown unit. We have been on consult for paroxysmal atrial fibrillation and elevated troponin secondary to re spiratory failure. Patient is normally on home O2 at 2 L currently at 4 L nasal cannula. Blood pressure readings are elevated. 179/78, heart rate is in the 80s, pulse ox 98% on 4 L nasal cannula. Repeat blood work reveals hemoglobin 8.2, BUN 28 creatinine 0.48, CO2 38. Physical examination: Gen: This is a 64-year-old female in no acute respiratory distress.] VS: reviewed LUNGS: Good air entry bilaterally. No intercostal retractions. HEART: Reveals first and second heart sounds. No gallop. ABDOMEN: Soft No tenderness. EXTREMITIES: No pedal edema. Peripheral pulses palpable. NEUROLOGICAL: Patient is awake, alert and oriented x3. Assessment: Paroxysmal atrial fibrillation Pneumonia with acute hypoxic respiratory failure Uncontrolled hypertension Plan: Continue patient on Xarelto Increase Lopressor to 50 mg twice daily Increase losartan to 50 mg daily No further cardiac workup is planned at this time Cardiology will sign off this case and follow on an as-needed basis. Please r econsult for any new concerns. Patient may follow-up in the office in one to 2 weeks. Nurse practitioner note has been reviewed, I agree with documented findings and plan of care. Patient was seen and examined. Objective - Vital Signs Vital signs: Vital Signs Temp 98.5 F 12/18/24 08:19 Pulse 84 12/18/24 08:33 Resp 14 12/18/24 08:19 BP 169/75 12/18/24 08:19 Pulse Ox 95 12/18/24 08:33 FiO2 100 12/17/24 04:00 Intake & Output 12/17/24 12/18/24 12/18/24 18:59 06:59 18:59 Intake Total 925 240 Output Total 2775 7916 791 Balance -7097 -4980 -557 Weight 67.7 kg 67.5 kg Intake: IV 125 0.9 KVO 40 Cefepime 2 gm In Sodium 25 Chloride 0.9% 100 ml @ 25 mls/hr IVPB Q8H DEX Rx#: [id number] Lactated Ringers 1,000 ml 60 @ 20 mls/hr IV .Q24H DEX Rx#:[id number] Oral 800 240 Output: Urine 3375 2000 750 Other: Voiding Method Indwelling Catheter Indwelling Catheter # Bowel Movements 2 ABP, PAP, CO, CI - Last Documented Arterial Blood Pressure 163/60 - Labs CBC & Chem 7: 12/18/24 07:21 12/18/24 07:21 Labs: Abnormal Lab Results - Last 24 Hours (Table) 12/17/24 12/17/24 12/17/24 Range/Units 11:41 17:10 17:41 RBC (3.80-5.40) m/uL Hgb (11.4-16.0) gm/dL Hct (34.0-46.0) % MCHC (31.0-37.0) g/dL Chloride (98-107) mmol/L Carbon Dioxide (22-30) mmol/L BUN (7-17) mg/dL Creatinine (0.52-1.04) mg/dL POC Glucose (mg/dL) 222 H 116 H 164 H (70-110) mg/dL 12/17/24 12/18/24 12/18/24 Range/Units 20:13 07:21 07:21 RBC 3.15 L (3.80-5.40) m/uL Hgb 8.2 L (11.4-16.0) gm/dL Hct 26.7 L (34.0-46.0) % MCHC 30.9 L (31.0-37.0) g/dL Chloride 96 L (98-107) mmol/L Carbon Dioxide 38 H (22-30) mmol/L BUN 20 H (7-17) mg/dL Creatinine 0.48 L (0.52-1.04) mg/dL POC Glucose (mg/dL) 194 H (70-110) mg/dL Microbiology - Last 24 Hours (Table) 12/16/24 08:40 Gram Stain - Preliminary Bronchoalviolar Lavage - Right Bronchial Washings Culture - Preliminary Presumptive Staph aureus 12/13/24 19:00 Blood Culture - Preliminary Blood
--- NOTE | 2024-12-18 15:50 | P.PN ---
Subjective Progress Note Date: 12/18/24 This is a 64-year-old female who presented to the emergency department from [facility] and was noted to be unresponsive and apparently per [facility] staff patient was baseline this morning. Patient also noted to have a 103 temp while at the facility and patient was transported here via EMS for further evaluation. Patient has a significant past medical history of atrial fibrillation, coronary artery disease, angina, COPD, previous CVA, GERD, hyperlipidemia, hypertension, osteoarthritis, seizure disorder, Crohn's disease, anxiety/bipolar depression, history of polysubstance abuse, continued ongoing nicotine dependence, past history of alcohol abuse. Patient with significant weakness had been at [facility] for quite some time and has had multiple hospitalizations for significant comorbidities. Patient labs reviewed on admission revealing a white count of 39.7, hemoglobin 9.2, platelets 461, ABG revealing a pH of 7.25, pCO2 elevated at 65, pO2 215, bicarb elevated at 29. Sodium was 135 with a potassium of 5.3, creatinine 0.55, blood sugars elevated, lactic acid 1.4, calcium 8.1, ammonia level 79, troponin 0.052, BNP 256, TSH 3.6, urinalysis negative, urine drug screen was positive for opiates and TCAs otherwise virology testing was all negative including RSV, COVID, influenza. Chest x-ray on admission showed patchy infiltrate opacities bilateral suggestive of multifocal pneumonia and patient is currently on mechanical ventilation. Brain CT showing no acute intracranial process, EKG showing sinus tachycardia with occasional PVCs possible atrial flutter although repeat EKG showing sinus tachycardia. Patient being admitted to ICU with pulmonary and neurology on consultation. 12/15/2024 Patient is seen in follow-up today continues in the ICU on mechanical ventilation with to a 50% and PEEP is 5. No plans of weaning at this time and discussing the need for bronchoscopy. Preliminary sputum culture showing Staph aureus and maintained on cefepime with infectious disease following. Patient is also maintained on steroids and will continue with sliding scale and adjust insulins accordingly. 12/16/2024 Patient is seen in follow-up today continues on mechanical ventilation with an FiO2 of 50% and PEEP is 5. No plans for extubation at this time and is scheduled to undergo bronchoscopy with pulmonary permanent waver. Patient is maintained on antibiotics with preliminary culture showing Staph aureus. 12/17/2024 Patient is seen in follow-up today status post extubation maintained on 4 L via nasal cannula and tolerating well. Patient is alert and oriented and following commands appropriately. Chest x-ray today reveals stable with cardiomegaly and trace pleural effusions correlate for CHF with COPD changes. Preliminary culture showing Staph aureus and [place] on the initial sputum and is status post bronchoscopy with lavage and preliminary is showing Staph aureus. Infectio us disease following and patient is maintained on IV antibiotics in the form of cefepime and will continue. Patient was given a dose of Lasix yesterday and recommend close monitoring of volume overload and discontinuing fluids once patient is tolerating some diet. Patient also continues on [id number] DuoNeb treatments along with some Mucinex being added and steroids. Continue monitoring Accu-Cheks and continue with sliding scale as needed. Patient will need reevaluation by physical therapy for significant weakness with plans on returning to [facility]. 12/18/2024 Patient is evaluated in follow-up on the stepdown unit. Patient has been extubated and remains on oxygen via nasal cannula. She is awake alert and oriented. Her sputum cultures have finalized revealing Staphylococcus aureus. Chest x-ray today reveals subtle scattered opacities which may represent an atypical pneumonia. Patient remains on IV cefepime. ID following closely. Labs today reveal a white blood cell count of 8.5 hemoglobin 8.2, sodium 137, potassium 3.6, BUN of 20 creatinine of 0.48. Magnesium of 1.6. Patient remains on high-dose IV Solu-Medrol. EEG was negative for any seizure-like or epileptiform activity. Echocardiogram comes back revealing EF of 55 to 60% with trace MR and mild to moderate TR. Review of systems: Constitutional: No reports of fatigue, fever, or chills Cardiovascular: No reports of chest pain or palpitations Respiratory: No reports of worsening shortness of breath reports a week cough and mild sore throat GI: No reports of nausea, vomiting, or diarrhea : No reports of dysuria or retention Neurovascular:reports of weakness All medications have been reviewed PHYSICAL EXAMINATION: GENERAL: The patient is recently extubated 30 minutes prior maintained on 4 L, alert and oriented x 3, thin built, cachectic, ill-appearing, appears elderly HEENT: Pupils are round and equally reacting to light. EOMI. No scleral icterus. No conjunctival pallor. Normocephalic, atraumatic. No pharyngeal erythema. No thyromegaly. CARDIOVASCULAR: S1 and S2 muffled PULMONARY: Diminished breath sounds bilaterally with some faint expiratory wheezing and coarse scattered rhonchi noted, no accessory muscle use noted ABDOMEN: Soft, nontender, nondistended, normoactive bowel sounds. No palpable organomegaly. MUSCULOSKELETAL: No joint swelling or deformity. EXTREMITIES: No cyanosis, clubbing, or pedal edema. NEUROLOGICAL: Alert and oriented x 3, following commands, diffusely weak SKIN: No rashes. Pale Assessment: Acute on chronic hypoxic respiratory failure, multifactorial secondary to acute COPD exacerbation along with concerns of pneumonia of the right lower lobe, possible aspiration/atelectasis, sputum culture showing Staph aureus Sepsis, present on admission secondary to acute right lower lobe pneumonia requiring mechanical ventilation, status post extubation today on 12/17/2024, maintained on 4 L. Sputum culture showing Staph aureus and [place] and is also status post bronchoscopy with cultures pending COPD acute exacerbation Leukocytosis, multifactorial secondary to sepsis as well as possible steroid- induced Refractory hypotension, likely secondary to sepsis requiring pressor support, improved and off pressor support is a downgrade once 3 S. bed becomes available Hypertension history Continued ongoing nicotine dependence History of Crohn's disease with IBS, follows with GI outpatient History of chronic anemia History of chronic back pain History of anxiety/depression/bipolar disorder History of seizure disorder maintained on Keppra History of CVA History of polysubstance abuse with crack/cocaine and has not used those illicit drugs in quite some time GI prophylaxis DVT prophylaxis Full code Plan: Patient was admitted with acute on chronic hypoxic respiratory failure, suspicious for possible aspiration right lower lobe pneumonia. Patient started on antibiotics with pulmonary permanent waver following. Pulmonary following status post bronchoscopy and culture showing staph aureus, previous sputum culture positive for Staph aureus and [place] albicans, maintained on cefepime with infectious disease following Patient was extubated today successfully, currently maintained on 4 L and off pressor support patient has been downgraded to the cardiac unit Neurology following the patient undergoing further workup as patient was found unresponsive Appropriate home medications will be reviewed and resumed once patient is tolerating swallow Patient is on a dysphagia level 2 ground diet with aspiration precautions Continue monitoring Accu-Cheks before meals and at bedtime as patient is on high-dose steroids 60 mg every 6 for COPD exacerbation. Will adjust insulins accordingly Recommend incentive spirometer use and will continue on DuoNeb treatments and steroids. PT/OT therapy to evaluate with case management following as patient will be returning to [facility] on discharge The impression and plan of care has been dictated by Ninoska Dawn, Nurse Practitioner as directed. Dr. Antonette MD I have performed a history and examination and MDM of this patient, discussed the same with the dictator, and agree with the dictator's assessment and plan as written ,documented as a scribe. Based on total visit time, I have performed more than 50% of the visit. Objective - Vital Signs Vital signs: Vital Signs Temp 98.4 F 12/18/24 12:13 Pulse 71 12/18/24 12:13 Resp 14 12/18/24 12:13 BP 179/78 12/18/24 12:13 Pulse Ox 98 12/18/24 12:13 FiO2 100 12/17/24 04:00 Intake & Output 12/17/24 12/18/24 12/18/24 18:59 06:59 18:59 Intake Total 925 240 Output Total 3375 1999 1949 Balance -2450 -176 -1949 Weight 67.7 kg 67.5 kg Intake: IV 125 0.9 KVO 40 Cefepime 2 gm In Sodium 25 Chloride 0.9% 100 ml @ 25 mls/hr IVPB Q8H DEX Rx#: [id number] Lactated Ringers 1,000 ml 60 @ 20 mls/hr IV .Q24H DEX Rx#:[id number] Oral 800 240 Output: Urine 3374 1999 1949 Other: Voiding Method Indwelling Catheter Indwelling Catheter # Bowel Movements 2 1 ABP, PAP, CO, CI - Last Documented Arterial Blood Pressure 163/60 - Labs CBC & Chem 7: 12/18/24 07:21 12/18/24 07:21 Labs: Abnormal Lab Results - Last 24 Hours (Table) 12/17/24 12/17/24 12/17/24 Range/Units 17:10 17:41 20:13 RBC (3.80-5.40) m/uL Hgb (11.4-16.0) gm/dL Hct (34.0-46.0) % MCHC (31.0-37.0) g/dL Chloride (98-107) mmol/L Carbon Dioxide (22-30) mmol/L BUN (7-17) mg/dL Creatinine (0.52-1.04) mg/dL POC Glucose (mg/dL) 116 H 164 H 194 H (70-110) mg/dL 12/18/24 12/18/24 12/18/24 Range/Units 07:21 07:21 12:02 RBC 3.15 L (3.80-5.40) m/uL Hgb 8.2 L (11.4-16.0) gm/dL Hct 26.7 L (34.0-46.0) % MCHC 30.9 L (31.0-37.0) g/dL Chloride 96 L (98-107) mmol/L Carbon Dioxide 38 H (22-30) mmol/L BUN 20 H (7-17) mg/dL Creatinine 0.48 L (0.52-1.04) mg/dL POC Glucose (mg/dL) 137 H (70-110) mg/dL Microbiology - Last 24 Hours (Table) 12/16/24 08:40 Gram Stain - Final Bronchoalviolar Lavage - Right Bronchial Washings Culture - Final Staphylococcus aureus 12/13/24 19:00 Blood Culture - Preliminary Blood Assessment and Plan Time with Patient: Less than 30
--- NOTE | 2024-12-18 15:54 | P.PN ---
Subjective Progress Note Date: 12/18/24 Principal diagnosis: Reason for follow-up is sepsis/pneumonia Patient is a 64-year-old female with a past medical history significant for hypertension hyperlipidemia osteoarthritis COPD CVA TIA coronary artery disease patient has been brought into the hospital from a local halfway unresponsive, patient did have a fever abnormal x-ray concerning for possible pneumonia/sepsis. On today's evaluation that is 12/18/2024, the patient continues to be afebrile, the patient is on 4 L current oxygen and breathing comfortably, the Pt denies having any chest pain or any worsening cough, the patient denies having any abdominal pain no vomiting or any diarrhea. Patient white count is 8.5, creatinine 0.48 Objective - Vital Signs Vital signs: Vital Signs Temp 98.4 F 12/18/24 12:13 Pulse 71 12/18/24 12:13 Resp 14 12/18/24 12:13 BP 179/78 12/18/24 12:13 Pulse Ox 98 12/18/24 12:13 FiO2 100 12/17/24 04:00 Intake & Output 12/17/24 12/18/24 12/18/24 18:59 06:59 18:59 Intake Total 925 240 Output Total 3375 1999 1949 Balance -245 -1759 -1949 Weight 67.7 kg 67.5 kg Intake: IV 125 0.9 KVO 40 Cefepime 2 gm In Sodium 25 Chloride 0.9% 100 ml @ 25 mls/hr IVPB Q8H DEX Rx#: [id number] Lactated Ringers 1,000 ml 60 @ 20 mls/hr IV .Q24H DEX Rx#:[id number] Oral 800 240 Output: Urine 3374 1999 1949 Other: Voiding Method Indwelling Catheter Indwelling Catheter # Bowel Movements 2 1 ABP, PAP, CO, CI - Last Documented Arterial Blood Pressure 163/60 - Exam GENERAL DESCRIPTION: An elderly female lying in bed in no distress RESPIRATORY SYSTEM: Unlabored breathing , decreased breath sounds at bases HEART: S1 S2 regular rate and rhythm , ABDOMEN: Soft , no tenderness EXTREMITIES: No edema feet - Labs CBC & Chem 7: 12/18/24 07:21 12/18/24 07:21 Labs: Abnormal Lab Results - Last 24 Hours (Table) 12/17/24 12/17/24 12/17/24 Range/Units 17:10 17:41 20:13 RBC (3.80-5.40) m/uL Hgb (11.4-16.0) gm/dL Hct (34.0-46.0) % MCHC (31.0-37.0) g/dL Chloride (98-107) mmol/L Carbon Dioxide (22-30) mmol/L BUN (7-17) mg/dL Creatinine (0.52-1.04) mg/dL POC Glucose (mg/dL) 116 H 164 H 194 H (70-110) mg/dL 12/18/24 12/18/24 12/18/24 Range/Units 07:21 07:21 12:02 RBC 3.15 L (3.80-5.40) m/uL Hgb 8.2 L (11.4-16.0) gm/dL Hct 26.7 L (34.0-46.0) % MCHC 30.9 L (31.0-37.0) g/dL Chloride 96 L (98-107) mmol/L Carbon Dioxide 38 H (22-30) mmol/L BUN 20 H (7-17) mg/dL Creatinine 0.48 L (0.52-1.04) mg/dL POC Glucose (mg/dL) 137 H (70-110) mg/dL Microbiology - Last 24 Hours (Table) 12/16/24 08:40 Gram Stain - Final Bronchoalviolar Lavage - Right Bronchial Washings Culture - Final Staphylococcus aureus 12/13/24 19:00 Blood Culture - Preliminary Blood Assessment and Plan (1) Pneumonia Current Visit: Yes Status: Acute Code(s): J18.9 - PNEUMONIA, UNSPECIFIED ORGANISM SNOMED Code(s): 487965410 (2) Sepsis Current Visit: Yes Status: Acute Code(s): A41.9 - SEPSIS, UNSPECIFIED ORGANISM SNOMED Code(s): 45284859 Plan: 1patient presented to hospital with sepsis in this patient who did have fever of 103 F reported by the EMS tachycardia elevated white count meeting criteria for SIRS/sepsis source likely pneumonia as no evidence of any cellulitis abdominal tenderness UA has been reported negative and will need to cover for the resistant gram-positive as well as gram-negative pathogen 2-blood cultures has been negative, sputum is growing and MSSA and [place] 3-patient is afebrile white count normalized continue with cefepime while inpatient will transition to oral antibiotics on discharge Dictation was produced using [employer] dictation software. please excuse any grammatical, word or spelling errors. Time with Patient: Less than 30
[2024-12-18] MEDS: MAGNESIUM SULFATE-D5W PMX 1 GM in DEXTROSE/WATER 1 100ML.BAG IVPB SCH (16:05)
[2024-12-18 16:27] LABS: Glucose,Whole Blood 179 mg/dL (70-110)
--- NOTE | 2024-12-18 17:22 | P.PN ---
Subjective Progress Note Date: 12/18/24 Patient is a 64-year-old female with past medical history significant for atrial fibrillation anticoagulated on Xarelto, coronary artery disease, hypertension, hyperlipidemia, CVA/TIA, seizure disorder, polysubstance abuse, GERD, Crohn's disease, COPD, home O2 dependence, among other things. Patient currently intubated mechanical ventilator unable to provide information. According to the ER documentation patient was sent in from [facility]. Noted to be minimally responsive and did require bag mask ventilation. Intubated on arrival in the emergency department. Workup in the ED including a chest x-ray which shows the endotracheal tube terminating approximately 4 cm above the della. Enteric tube coursing below the diaphragm. Right IJ central line catheter with the tip terminating near the cavoatrial junction. Patchy opacities bilateral suggestive of multifocal pneumonia. CBC: WBC count elevated at 40, hemoglobin 9.2, platelets 461. CMP: Sodium 135, potassium 5.3, chloride 100, serum bicarb 32, BUN 16, creatinine 0.55, glucose 206. Lactic 0.9. LFTs not elevated. Ammonia 79. Troponin less than 0.012 and then 0.05. NT proBNP 256. Brain CT did not show any acute intracranial process, no acute intraparenchymal hemorrhage or mass effect. CT of the head and neck did not show any evidence of dissection of the cervical internal carotid arteries or vertebral arteries. No evidence of significant flow-limiting stenosis at the carotid bifurcation. No evidence of intracranial high-grade stenosis or intracranial aneurysm. Urine toxicology screen positive for opiates and tricyclic antidepressants. Urinalysis unremarkable for UTI. Initial ABG following intubation done on FiO2 of 100% showing a PaO2 of 215, pCO2 65, pH of 7.25. Patient currently being seen in the emergency department, trauma bay 2. Remains intubated mechanical ventilator with current ventilator settings assist-control, respiratory rate 20, tidal volume 450, FiO2 70%, PEEP of 5. Most recent ABGs from this morning done on the settings show improvement in the patient's acid-base balance and there is a PaO2 of 193, pCO2 of 42, pH of 7.46. FiO2 was per appropriately dropped to 50%. Peak airway pressure 32 with a static pressure of 16, indicating some component of airway resistance. Patient is currently synchronous with set rate. Sedated on propofol which is infusing at 30 mcg/kg/min. Fentanyl is also infusing at 0.5 mcg/kg/h. Previously fluid resuscitated with 2 L lactated Ringer's IV bolus and continues with Lactated Ringer's infusing at 130 mL/h. Blood pressure remained hypotensive despite fluid resuscitation and started on low-dose norepinephrine which is infusing at 0.07 mcg/kg/min. Patient is awaiting a bed in the intensive care unit On 12/15/2024, the patient is being seen for a follow-up. Remains intubated on the mechanical ventilator. This morning, the patient is on propofol running at 50 mcg/kg/min and fentanyl is running at 1 mcg/kg/h. The patient is on assist-control mode of mechanical ventilation at rate of 20, tidal volume of 450, FiO2 50% with a PEEP of 5. Blood gas showed a pH of 7.41 with a pCO2 46 and pO2 of 95. The follow-up chest x-ray was done this morning and the patient continues to have volume loss in the right lung base along with atelectatic changes in the right lung base and possibly some consolidation effusion. The patient also has cardiomegaly and background COPD. A CAT scan of the chest was also completed yesterday and the patient was found to have advanced emphysematous changes bilaterally with upper lobe predominance. There is also small bilateral pleural effusion right more than left, right basilar consolidation/atelectasis and an abrupt cutoff sign in the right lower lobe bronchus. Obviously, this needs to be further investigated and the patient will need a bronchoscopy to evaluate the patency of the right lower lobe. WBC count is at 14.1, hemoglobin 7.7 and the platelet count is up to 73. Sodium is at 137, potassium 3.8, BUN is 9 with a creatinine of 0.37. In terms of antibiotic coverage, the patient is on IV cefepime and vancomycin. The sputum sample is showing presumptive staff aureus. ID is on the case. On 12/16/2024, the patient is intubated on mechanical ventilator. The patient is on propofol running at 50 mcg/kg/min and fentanyl which is running at 1 mcg/kg/h. She is calm and comfortable and synchronous on mechanical ventilator. Chest x-ray was noted from this morning and there is some worsening in the bibasilar consolidation and some volume loss in the right lung base and the patient also has cardiomegaly and pulm vessel congestion. Based on that, a bronchoscopy was done and copious amount of blood. Treated with aspirated from the right lower lobe bronchus. The airway was patent and there was no evidence of any endobronchial tumors or lesions. Therapeutic airway suctioning was done and a bronchial lavage of the right lower lobe was obtained. Meanwhile, the patient remains on the mechanical ventilator, this morning, she is on assist- control mode with rate of 20, tidal volume of 450, FiO2 50% with a PEEP of 5. Blood gas showed a pH of 7.49 with a pCO2 of 38 and pO2 of 78. The patient is on no pressors. The white cell count is at 8.4 with a hemoglobin of 7 and a platelet count of 237. Electrolytes are all within normal limits. BUN is 12 with a creatinine of 0.34. The sputum sample that was collected earlier on 12/13/2024 showed MSSA. The patient remains on broad-spectrum antibiotics and the patient remains on IV cefepime and vancomycin. Remains on bronchodilators. Remains on steroids. Peak airway pressure is around 24. Continues to receive enteral feeding for nutritional support. IV fluids will be cut down to KVO. On 12/17/2024, the patient is extubated, awake and calm and comfortable and communicating. The patient is afebrile hemodynamically stable on 4 L of oxygen by nasal cannula. The follow-up chest x-ray from this morning shows some interval improvement in aeration of the right lung base. There is persistent cardiomegaly and trace pleural effusion bilaterally and the cardiopulmonary silhouette is unremarkable. The patient continues to have a congested cough. Unable to bring up much sputum. Bronchoscopy endobronchial lavage was done prior to extubation and the cultures are showing presumptive Staph aureus. This has been confirmed to be MSSA the patient remains on cefepime. Remains on DuoNeb nebulized treatments [id number]. Remains on a combination performance of Pulmicort. Remains on IV Solu-Medrol. Remains on lactated Ringer at rate of 20 cc an hour. Remains on IV Solu-Medrol 60 mg every 6 hours. The white cycles of time with hemoglobin 8.3 with a platelet count of 271. BUN 17 with a creatinine of 0.6. Sodium levels at 141 with a potassium level of 3.5. Serum bicarb is at 37. No other significant events overnight. Patient has been extubated on 12/16/2024. On 12/18/2024, the patient continues to have a congested cough. Less short of breath. Less bronchospastic and wheezy. No altered mentation. No chest pain. No fever or chills. Bronchoscopy endobronchial lavage was also done during her hospital stay and the cultures are positive for MSSA. The patient continues to be on IV cefepime. Rest of the medications are unchanged. Remains on bronchodilators. Remains on IV Solu-Medrol. Tolerating diet. Objective - Vital Signs Vital signs: Vital Signs Temp 98.4 F 12/18/24 12:13 Pulse 71 12/18/24 12:13 Resp 14 12/18/24 12:13 BP 179/78 12/18/24 12:13 Pulse Ox 98 12/18/24 12:13 FiO2 100 12/17/24 04:00 Intake & Output 12/17/24 12/18/24 12/18/24 18:59 06:59 18:59 Intake Total 925 240 Output Total 3375 1999 750 Balance -2450 -1760 -750 Weight 67.7 kg 67.5 kg Intake: IV 125 0.9 KVO 40 Cefepime 2 gm In Sodium 25 Chloride 0.9% 100 ml @ 25 mls/hr IVPB Q8H DEX Rx#: [id number] Lactated Ringers 1,000 ml 60 @ 20 mls/hr IV .Q24H DEX Rx#:[id number] Oral 800 240 Output: Urine 3375 1999 750 Other: Voiding Method Indwelling Catheter Indwelling Catheter # Bowel Movements 2 ABP, PAP, CO, CI - Last Documented Arterial Blood Pressure 163/60 - Exam GENERAL EXAM: Sedated, 64-year-old female, extubated, currently on 4 L of oxygen by nasal cannula HEAD: Normocephalic and atraumatic EYES: Normal reaction of pupils, equal size. NOSE: Clear with pink turbinates. THROAT: No erythema or exudates. NECK: No masses, no JVD. Right IJ central line catheter secured in place CHEST: No chest wall deformity. LUNGS: Equal air entry with scattered rhonchi. Intubated mechanical ventilator. CVS: S1 and S2 normal with no audible murmur, regular rhythm. No extra heart sounds ABDOMEN: No hepatosplenomegaly, active bowel sounds, no guarding or rigidity. SPINE: No scoliosis or deformity SKIN: No rashes CENTRAL NERVOUS SYSTEM: Neurologically, the patient is awake and alert and the patient does not have any focal neurological deficit. Cranial nerves are essentially intact. EXTREMITIES: There is no peripheral edema, clubbing, or cyanosis. Peripheral pulses are intact. - Labs CBC & Chem 7: 12/18/24 07:21 12/18/24 07:21 Labs: Abnormal Lab Results - Last 24 Hours (Table) 12/17/24 12/17/24 12/17/24 Range/Units 17:10 17:41 20:13 RBC (3.80-5.40) m/uL Hgb (11.4-16.0) gm/dL Hct (34.0-46.0) % MCHC (31.0-37.0) g/dL Chloride (98-107) mmol/L Carbon Dioxide (22-30) mmol/L BUN (7-17) mg/dL Creatinine (0.52-1.04) mg/dL POC Glucose (mg/dL) 116 H 164 H 194 H (70-110) mg/dL 12/18/24 12/18/24 12/18/24 Range/Units 07:21 07:21 12:02 RBC 3.15 L (3.80-5.40) m/uL Hgb 8.2 L (11.4-16.0) gm/dL Hct 26.7 L (34.0-46.0) % MCHC 30.9 L (31.0-37.0) g/dL Chloride 96 L (98-107) mmol/L Carbon Dioxide 38 H (22-30) mmol/L BUN 20 H (7-17) mg/dL Creatinine 0.48 L (0.52-1.04) mg/dL POC Glucose (mg/dL) 137 H (70-110) mg/dL Microbiology - Last 24 Hours (Table) 12/16/24 08:40 Gram Stain - Final Bronchoalviolar Lavage - Right Bronchial Washings Culture - Final Staphylococcus aureus 12/13/24 19:00 Blood Culture - Preliminary Blood Assessment and Plan Assessment: Acute hypoxemic and hypercapnic respiratory failure, secondary acute exacerbation and bibasilar pneumonia. The patient has significant volume loss in the right lung base along with area of consolidation. A bronchoscopy was done on 12/16/2024 and copious amount of respiratory secretions were identified in the right lower lobe bronchus. Nevertheless, there was no evidence of any endobronchial tumors or lesions. The presumptive results from the BAL is positive for Staph aureus and the previous sputum sample is positive for MSSA and the patient remains on a combination of cefepime The patient has had previous bronchoscopy and infection with stenotrophomonas back in September 2024.. CAT scan of the chest done on 12/14/2024 showed small bilateral pleural effusion, diffuse emphysematous changes bilaterally with upper lobe predominance and the patient also has right basilar atelectasis/consolidation/volume loss along with an abrupt cut off sign in the right lower lobe bronchus. The patient was extubated on 12/16/2024 and the patient is currently on 3 L of O2 nasal cannula Acute COPD exacerbation with secondary respiratory failure, improving and the patient obviously is less bronchospastic and wheezy, maintained on bron chodilators and steroids Pneumonia/sepsis, rule out possibility of right lower lobe pneumonia/atele ctasis. Sputum sample was positive for Staph aureus and the patient remains on cefepime Acute leukocytosis, secondary to above, improved Hypotension secondary to sepsis, improved and the patient is currently normotensive on no pressors History of paroxysmal atrial fibrillation, anticoagulated on Xarelto, currently sinus mechanism Chronic anemia Chronic obstructive pulmonary disease Chronic hypoxemic respiratory failure History recent of bronchoscopy with BAL done October 02, 2024, microbiology positive for stenotrophomonas maltophilia at that time. History of hypertension History of hyperlipidemia Coronary artery disease History of CVA/TIA History of seizure disorder, on Keppra History of polysubstance abuse History of gastroesophageal reflux disease History of Crohn's disease Chronic nicotine dependence History of anxiety/depression/bipolar Plan: Patient was extubated on 12/16/2024 Bronchoscopy and therapeutic airway suctioning was done and copious amount of resp secretions were suctioned from the right lung especially from the right lower lobe endobronchial lavage was also done on 12/16/2024 Continue bronchodilators Continue steroids Continue cefepime Sputum sample was positive for MSSA BAL also showing Staph aureus/MSSA CAT scan of the chest from 12/14/2024 was noted Patient is currently off pressors Continue anticoagulation with Xarelto Mucinex DM for cough and congestion Aggressive pulmonary toileting This evaluation is a critical care evaluation and this was done and 33 minutes. Time with Patient: Greater than 30
[2024-12-18 20:05] LABS: Glucose,Whole Blood 175 mg/dL (70-110)
[2024-12-19] MEDS: ACETAMINOPHEN TAB 325 MG TAB PO PRN (00:44)
[2024-12-19 06:06] LABS: Glucose,Whole Blood 168 mg/dL (70-110)
[2024-12-19 11:51] LABS: Glucose,Whole Blood 233 mg/dL (70-110)
--- NOTE | 2024-12-19 13:39 | P.PN ---
Subjective Progress Note Date: 12/19/24 Patient is a 64-year-old female with past medical history significant for atrial fibrillation anticoagulated on Xarelto, coronary artery disease, hypertension, hyperlipidemia, CVA/TIA, seizure disorder, polysubstance abuse, GERD, Crohn's disease, COPD, home O2 dependence, among other things. Patient currently intubated mechanical ventilator unable to provide information. According to the ER documentation patient was sent in from [facility]. Noted to be minimally responsive and did require bag mask ventilation. Intubated on arrival in the emergency department. Workup in the ED including a chest x-ray which shows the endotracheal tube terminating approximately 4 cm above the della. Enteric tube coursing below the diaphragm. Right IJ central line catheter with the tip terminating near the cavoatrial junction. Patchy opacities bilateral suggestive of multifocal pneumonia. CBC: WBC count elevated at 40, hemoglobin 9.2, platelets 461. CMP: Sodium 135, potassium 5.3, chloride 100, serum bicarb 32, BUN 16, creatinine 0.55, glucose 206. Lactic 0.9. LFTs not elevated. Ammonia 79. Troponin less than 0.012 and then 0.05. NT proBNP 256. Brain CT did not show any acute intracranial process, no acute intraparenchymal hemorrhage or mass effect. CT of the head and neck did not show any evidence of dissection of the cervical internal carotid arteries or vertebral arteries. No evidence of significant flow-limiting stenosis at the carotid bifurcation. No evidence of intracranial high-grade stenosis or intracranial aneurysm. Urine toxicology screen positive for opiates and tricyclic antidepressants. Urinalysis unremarkable for UTI. Initial ABG following intubation done on FiO2 of 100% showing a PaO2 of 215, pCO2 65, pH of 7.25. Patient currently being seen in the emergency department, trauma bay 2. Remains intubated mechanical ventilator with current ventilator settings assist-control, respiratory rate 20, tidal volume 450, FiO2 70%, PEEP of 5. Most recent ABGs from this morning done on the settings show improvement in the patient's acid-base balance and there is a PaO2 of 193, pCO2 of 42, pH of 7.46. FiO2 was per appropriately dropped to 50%. Peak airway pressure 32 with a static pressure of 16, indicating some component of airway resistance. Patient is currently synchronous with set rate. Sedated on propofol which is infusing at 30 mcg/kg/min. Fentanyl is also infusing at 0.5 mcg/kg/h. Previously fluid resuscitated with 2 L lactated Ringer's IV bolus and continues with Lactated Ringer's infusing at 130 mL/h. Blood pressure remained hypotensive despite fluid resuscitation and started on low-dose norepinephrine which is infusing at 0.07 mcg/kg/min. Patient is awaiting a bed in the intensive care unit On 12/15/2024, the patient is being seen for a follow-up. Remains intubated on the mechanical ventilator. This morning, the patient is on propofol running at 50 mcg/kg/min and fentanyl is running at 1 mcg/kg/h. The patient is on assist-control mode of mechanical ventilation at rate of 20, tidal volume of 450, FiO2 50% with a PEEP of 5. Blood gas showed a pH of 7.41 with a pCO2 46 and pO2 of 95. The follow-up chest x-ray was done this morning and the patient continues to have volume loss in the right lung base along with atelectatic changes in the right lung base and possibly some consolidation effusion. The patient also has cardiomegaly and background COPD. A CAT scan of the chest was also completed yesterday and the patient was found to have advanced emphysematous changes bilaterally with upper lobe predominance. There is also small bilateral pleural effusion right more than left, right basilar consolidation/atelectasis and an abrupt cutoff sign in the right lower lobe bronchus. Obviously, this needs to be further investigated and the patient will need a bronchoscopy to evaluate the patency of the right lower lobe. WBC count is at 14.1, hemoglobin 7.7 and the platelet count is up to 73. Sodium is at 137, potassium 3.8, BUN is 9 with a creatinine of 0.37. In terms of antibiotic coverage, the patient is on IV cefepime and vancomycin. The sputum sample is showing presumptive staff aureus. ID is on the case. On 12/16/2024, the patient is intubated on mechanical ventilator. The patient is on propofol running at 50 mcg/kg/min and fentanyl which is running at 1 mcg/kg/h. She is calm and comfortable and synchronous on mechanical ventilator. Chest x-ray was noted from this morning and there is some worsening in the bibasilar consolidation and some volume loss in the right lung base and the patient also has cardiomegaly and pulm vessel congestion. Based on that, a bronchoscopy was done and copious amount of blood. Treated with aspirated from the right lower lobe bronchus. The airway was patent and there was no evidence of any endobronchial tumors or lesions. Therapeutic airway suctioning was done and a bronchial lavage of the right lower lobe was obtained. Meanwhile, the patient remains on the mechanical ventilator, this morning, she is on assist- control mode with rate of 20, tidal volume of 450, FiO2 50% with a PEEP of 5. Blood gas showed a pH of 7.49 with a pCO2 of 38 and pO2 of 78. The patient is on no pressors. The white cell count is at 8.4 with a hemoglobin of 7 and a platelet count of 237. Electrolytes are all within normal limits. BUN is 12 with a creatinine of 0.34. The sputum sample that was collected earlier on 12/13/2024 showed MSSA. The patient remains on broad-spectrum antibiotics and the patient remains on IV cefepime and vancomycin. Remains on bronchodilators. Remains on steroids. Peak airway pressure is around 24. Continues to receive enteral feeding for nutritional support. IV fluids will be cut down to KVO. On 12/17/2024, the patient is extubated, awake and calm and comfortable and communicating. The patient is afebrile hemodynamically stable on 4 L of oxygen by nasal cannula. The follow-up chest x-ray from this morning shows some interval improvement in aeration of the right lung base. There is persistent cardiomegaly and trace pleural effusion bilaterally and the cardiopulmonary silhouette is unremarkable. The patient continues to have a congested cough. Unable to bring up much sputum. Bronchoscopy endobronchial lavage was done prior to extubation and the cultures are showing presumptive Staph aureus. This has been confirmed to be MSSA the patient remains on cefepime. Remains on DuoNeb nebulized treatments [id number]. Remains on a combination performance of Pulmicort. Remains on IV Solu-Medrol. Remains on lactated Ringer at rate of 20 cc an hour. Remains on IV Solu-Medrol 60 mg every 6 hours. The white cycles of time with hemoglobin 8.3 with a platelet count of 271. BUN 17 with a creatinine of 0.6. Sodium levels at 141 with a potassium level of 3.5. Serum bicarb is at 37. No other significant events overnight. Patient has been extubated on 12/16/2024. On 12/18/2024, the patient continues to have a congested cough. Less short of breath. Less bronchospastic and wheezy. No altered mentation. No chest pain. No fever or chills. Bronchoscopy endobronchial lavage was also done during her hospital stay and the cultures are positive for MSSA. The patient continues to be on IV cefepime. Rest of the medications are unchanged. Remains on bronchodilators. Remains on IV Solu-Medrol. Tolerating diet. On 12/19/2024, the patient is being seen for a follow-up. Doing well. No specific complaints. Resting comfortably in bed. Continues to have some cough and congestion. No fever. No chills. No chest pain. No pleurisy. No hemoptysis. She remains on 2 L of oxygen by nasal cannula. No other significant events overnight. Remains on IV cefepime. Rest of the medications are essentially unchanged. Objective - Vital Signs Vital signs: Vital Signs Temp 97.9 F 12/19/24 08:39 Pulse 89 12/19/24 08:39 Resp 16 12/19/24 08:39 BP 141/60 12/19/24 08:39 Pulse Ox 95 12/19/24 09:05 FiO2 100 12/17/24 04:00 Intake & Output 12/18/24 12/19/24 12/19/24 18:59 06:59 18:59 Intake Total 120 Output Total 3350 2100 Balance -3349 -1979 Weight 67.5 kg Intake: Oral 120 Output: Urine 3350 2100 Other: Voiding Method Indwelling Catheter Indwelling Catheter # Bowel Movements 1 ABP, PAP, CO, CI - Last Documented Arterial Blood Pressure 163/60 - Exam GENERAL EXAM: Sedated, 64-year-old female, extubated, currently on 4 L of oxygen by nasal cannula HEAD: Normocephalic and atraumatic EYES: Normal reaction of pupils, equal size. NOSE: Clear with pink turbinates. THROAT: No erythema or exudates. NECK: No masses, no JVD. Right IJ central line catheter secured in place CHEST: No chest wall deformity. LUNGS: Equal air entry with scattered rhonchi. Intubated mechanical ventilator. CVS: S1 and S2 normal with no audible murmur, regular rhythm. No extra heart sounds ABDOMEN: No hepatosplenomegaly, active bowel sounds, no guarding or rigidity. SPINE: No scoliosis or deformity SKIN: No rashes CENTRAL NERVOUS SYSTEM: Neurologically, the patient is awake and alert and the patient does not have any focal neurological deficit. Cranial nerves are essentially intact. EXTREMITIES: There is no peripheral edema, clubbing, or cyanosis. Peripheral pulses are intact. - Labs CBC & Chem 7: 12/18/24 07:21 12/18/24 07:21 Labs: Abnormal Lab Results - Last 24 Hours (Table) 12/18/24 12/18/24 12/18/24 Range/Units 12:02 16:26 20:03 POC Glucose (mg/dL) 137 H 179 H 175 H (70-110) mg/dL 12/19/24 Range/Units 06:04 POC Glucose (mg/dL) 168 H (70-110) mg/dL Microbiology - Last 24 Hours (Table) 12/16/24 08:40 Gram Stain - Final Bronchoalviolar Lavage - Right Bronchial Washings Culture - Final Staphylococcus aureus Assessment and Plan Assessment: Acute hypoxemic and hypercapnic respiratory failure, secondary acute exacerbation and bibasilar pneumonia. The patient has significant volume loss in the right lung base along with area of consolidation. A bronchoscopy was done on 12/16/2024 and copious amount of respiratory secretions were identified in the right lower lobe bronchus. Nevertheless, there was no evidence of any endobronchial tumors or lesions. The presumptive results from the BAL is positive for Staph aureus and the previous sputum sample is positive for MSSA and the patient remains on a combination of cefepime The patient has had prev ious bronchoscopy and infection with stenotrophomonas back in September 2024.. CAT scan of the chest done on 12/14/2024 showed small bilateral pleural effusion, diffuse emphysematous changes bilaterally with upper lobe predominance and the patient also has right basilar atelectasis/consolidation/volume loss along with an abrupt cut off sign in the right lower lobe bronchus. The patient was extubated on 12/16/2024 and the patient is currently on 2 L of oxygen by nasal cannula Acute COPD exacerbation with secondary respiratory failure, improving and the patient obviously is less bronchospastic and wheezy, maintained on bronchodilators and steroids, clinically improved Pneumonia/sepsis, rule out possibility of right lower lobe pneumonia/atelectasis. Sputum sample was positive for Staph aureus and the patient remains on cefepime Acute leukocytosis, secondary to above, improved Hypotension secondary to sepsis, improved and the patient is currently normotensive on no pressors History of paroxysmal atrial fibrillation, anticoagulated on Xarelto, currently sinus mechanism Chronic anemia Chronic obstructive pulmonary disease Chronic hypoxemic respiratory failure History recent of bronchoscopy with BAL done October 02, 2024, microbiology positive for stenotrophomonas maltophilia at that time. History of hypertension History of hyperlipidemia Coronary artery disease History of CVA/TIA History of seizure disorder, on Keppra History of polysubstance abuse History of gastroesophageal reflux disease History of Crohn's disease Chronic nicotine dependence History of anxiety/depression/bipolar Plan: Patient was extubated on 12/16/2024 Bronchoscopy and therapeutic airway suctioning was done and copious amount of resp secretions were suctioned from the right lung especially from the right lower lobe endobronchial lavage was also done on 12/16/2024 Continue bronchodilators Continue steroids and discontinued IV Solu-Medrol start the patient on prednisone burst taper Continue cefepime Sputum sample was positive for MSSA BAL also showing Staph aureus/MSSA CAT scan of the chest from 12/14/2024 was noted Patient is currently off pressors Continue anticoagulation with Xarelto Mucinex DM for cough and congestion Aggressive pulmonary toileting She may need a prolonged antibiotic course, recommend additional 7 to 10 days of antibiotics orally due to her extensive staphylococcal pneumonia related to MSSA. This evaluation is a critical care evaluation and this was done and 33 minutes. Time with Patient: Greater than 30
[2024-12-19] MEDS: predniSONE 20 MG TAB PO SCH (15:42)
--- NOTE | 2024-12-19 16:26 | P.PN ---
Subjective Progress Note Date: 12/19/24 This is a 64-year-old female who presented to the emergency department from [facility] and was noted to be unresponsive and apparently per [facility] staff patient was baseline this morning. Patient also noted to have a 103 temp while at the facility and patient was transported here via EMS for further evaluation. Patient has a significant past medical history of atrial fibrillation, coronary artery disease, angina, COPD, previous CVA, GERD, hyperlipidemia, hypertension, osteoarthritis, seizure disorder, Crohn's disease, anxiety/bipolar depression, history of polysubstance abuse, continued ongoing nicotine dependence, past history of alcohol abuse. Patient with significant weakness had been at [facility] for quite some time and has had multiple hospitalizations for significant comorbidities. Patient labs reviewed on admission revealing a white count of 39.7, hemoglobin 9.2, platelets 461, ABG revealing a pH of 7.25, pCO2 elevated at 65, pO2 215, bicarb elevated at 29. Sodium was 135 with a potassium of 5.3, creatinine 0.55, blood sugars elevated, lactic acid 1.4, calcium 8.1, ammonia level 79, troponin 0.052, BNP 256, TSH 3.6, urinalysis negative, urine drug screen was positive for opiates and TCAs otherwise virology testing was all negative including RSV, COVID, influenza. Chest x-ray on admission showed patchy infiltrate opacities bilateral suggestive of multifocal pneumonia and patient is currently on mechanical ventilation. Brain CT showing no acute intracranial process, EKG showing sinus tachycardia with occasional PVCs possible atrial flutter although repeat EKG showing sinus tachycardia. Patient being admitted to ICU with pulmonary and neurology on consultation. 12/15/2024 Patient is seen in follow-up today continues in the ICU on mechanical ventilation with to a 50% and PEEP is 5. No plans of weaning at this time and discussing the need for bronchoscopy. Preliminary sputum culture showing Staph aureus and maintained on cefepime with infectious disease following. Patient is also maintained on steroids and will continue with sliding scale and adjust insulins accordingly. 12/16/2024 Patient is seen in follow-up today continues on mechanical ventilation with an FiO2 of 50% and PEEP is 5. No plans for extubation at this time and is scheduled to undergo bronchoscopy with pulmonary automobile parts assembler. Patient is maintained on antibiotics with preliminary culture showing Staph aureus. 12/17/2024 Patient is seen in follow-up today status post extubation maintained on 4 L via nasal cannula and tolerating well. Patient is alert and oriented and following commands appropriately. Chest x-ray today reveals stable with cardiomegaly and trace pleural effusions correlate for CHF with COPD changes. Preliminary culture showing Staph aureus and [place] on the initial sputum and is status post bronchoscopy with lavage and preliminary is showing Staph aureus. Infectio us disease following and patient is maintained on IV antibiotics in the form of cefepime and will continue. Patient was given a dose of Lasix yesterday and recommend close monitoring of volume overload and discontinuing fluids once patient is tolerating some diet. Patient also continues on [id number] DuoNeb treatments along with some Mucinex being added and steroids. Continue monitoring Accu-Cheks and continue with sliding scale as needed. Patient will need reevaluation by physical therapy for significant weakness with plans on returning to [facility]. 12/18/2024 Patient is evaluated in follow-up on the stepdown unit. Patient has been extubated and remains on oxygen via nasal cannula. She is awake alert and oriented. Her sputum cultures have finalized revealing Staphylococcus aureus. Chest x-ray today reveals subtle scattered opacities which may represent an atypical pneumonia. Patient remains on IV cefepime. ID following closely. Labs today reveal a white blood cell count of 8.5 hemoglobin 8.2, sodium 137, potassium 3.6, BUN of 20 creatinine of 0.48. Magnesium of 1.6. Patient remains on high-dose IV Solu-Medrol. EEG was negative for any seizure-like or epileptiform activity. Echocardiogram comes back revealing EF of 55 to 60% with trace MR and mild to moderate TR. 12/19/2024 Patient evaluated in follow-up in the stepdown unit. She has been continued on oxygen via nasal cannula and not reporting any significant shortness of breath at this time. She continues on IV cefepime for the staph coccus aureus in the sputum. Is been transition to oral prednisone. Patient is unsure whether she wants to return to the medical [place] or discharge home. Review of systems: Constitutional: No reports of fatigue, fever, or chills Cardiovascular: No reports of chest pain or palpitations Respiratory: No reports of worsening shortness of breath reports a week cough and mild sore throat GI: No reports of nausea, vomiting, or diarrhea : No reports of dysuria or retention Neurovascular:reports of weakness All medications have been reviewed PHYSICAL EXAMINATION: GENERAL: The patient is recently extubated 30 minutes prior maintained on 4 L, alert and oriented x 3, thin built, cachectic, ill-appearing, appears elderly HEENT: Pupils are round and equally reacting to light. EOMI. No scleral icterus. No conjunctival pallor. Normocephalic, atraumatic. No pharyngeal erythema. No thyromegaly. CARDIOVASCULAR: S1 and S2 muffled PULMONARY: Diminished breath sounds bilaterally with some faint expiratory wheezing and coarse scattered rhonchi noted, no accessory muscle use noted ABDOMEN: Soft, nontender, nondistended, normoactive bowel sounds. No palpable organomegaly. MUSCULOSKELETAL: No joint swelling or deformity. EXTREMITIES: No cyanosis, clubbing, or pedal edema. NEUROLOGICAL: Alert and oriented x 3, following commands, diffusely weak SKIN: No rashes. Pale Assessment: Acute on chronic hypoxic respiratory failure, multifactorial secondary to acute COPD exacerbation along with concerns of pneumonia of the right lower lobe, possible aspiration/atelectasis, sputum culture showing Staph aureus Sepsis, present on admission secondary to acute right lower lobe pneumonia requiring mechanical ventilation, status post extubation today on 12/17/2024, maintained on 4 L. Sputum culture showing Staph aureus and [place] and is also status post bronchoscopy with cultures pending COPD acute exacerbation Leukocytosis, multifactorial secondary to sepsis as well as possible steroid- induced Refractory hypotension, likely secondary to sepsis requiring pressor support, improved and off pressor support is a downgrade once 3 S. bed becomes available Hypertension history Continued ongoing nicotine dependence History of Crohn's disease with IBS, follows with GI outpatient History of chronic anemia History of chronic back pain History of anxiety/depression/bipolar disorder History of seizure disorder maintained on Keppra History of CVA History of polysubstance abuse with crack/cocaine and has not used those illicit drugs in quite some time GI prophylaxis DVT prophylaxis Full code Plan: Patient was admitted with acute on chronic hypoxic respiratory failure, suspicious for possible aspiration right lower lobe pneumonia. Patient started on antibiotics with pulmonary automobile parts assembler following. Pulmonary following status post bronchoscopy and culture showing staph aureus, previous sputum culture positive for Staph aureus and [place] albicans, maintained on cefepime with infectious disease following Patient was extubated today successfully, currently maintained on 4 L and off pressor support patient has been downgraded to the cardiac unit Neurology following the patient undergoing further workup as patient was found unresponsive Patient is on a dysphagia level 2 ground diet with aspiration precautions Continue monitoring Accu-Cheks before meals and at bedtime as patient is on high-dose steroids 60 mg every 6 for COPD exacerbation. Will adjust insulins accordingly Recommend incentive spirometer use and will continue on DuoNeb treatments and steroids. PT/OT therapy to evaluate with case management following as patient will be returning to [facility] on discharge The impression and plan of care has been dictated by Ninoska Dawn, Nurse Practitioner as directed. Dr. Antonette MD I have performed a history and examination and MDM of this patient, discussed the same with the dictator, and agree with the dictator's assessment and plan as written ,documented as a scribe. Based on total visit time, I have performed more than 50% of the visit. Objective - Vital Signs Vital signs: Vital Signs Temp 97.9 F 12/19/24 08:39 Pulse 82 12/19/24 16:06 Resp 16 12/19/24 15:34 BP 159/74 12/19/24 15:34 Pulse Ox 97 12/19/24 15:34 FiO2 100 12/17/24 04:00 Intake & Output 12/18/24 12/19/24 12/19/24 18:59 06:59 18:59 Intake Total 120 237 Output Total 3350 2100 Balance -3349 -1979 237 Weight 67.5 kg Intake: Oral 120 237 Output: Urine 3350 2100 Other: Voiding Method Indwelling Catheter Indwelling Catheter Indwelling Catheter # Bowel Movements 1 ABP, PAP, CO, CI - Last Documented Arterial Blood Pressure 163/60 - Labs CBC & Chem 7: 12/18/24 07:21 12/18/24 07:21 Labs: Abnormal Lab Results - Last 24 Hours (Table) 12/18/24 12/18/24 12/19/24 Range/Units 16:26 20:03 06:04 POC Glucose (mg/dL) 179 H 175 H 168 H (70-110) mg/dL 12/19/24 Range/Units 11:49 POC Glucose (mg/dL) 233 H (70-110) mg/dL Microbiology - Last 24 Hours (Table) 12/13/24 19:00 Blood Culture - Final Blood 12/16/24 08:40 Gram Stain - Final Bronchoalviolar Lavage - Right Bronchial Washings Culture - Final Staphylococcus aureus Assessment and Plan Time with Patient: Less than 30
--- NOTE | 2024-12-19 16:43 | P.PN ---
Subjective Progress Note Date: 12/19/24 Principal diagnosis: Reason for follow-up is sepsis/pneumonia Patient is a 64-year-old female with a past medical history significant for hypertension hyperlipidemia osteoarthritis COPD CVA TIA coronary artery disease patient has been brought into the hospital from a local halfway unresponsive, patient did have a fever abnormal x-ray concerning for possible pneumonia/sepsis. On today's evaluation that is 12/19/2024, patient did not have any fever and denies any chills, patient is breathing slightly comfortably on 2 L current oxygen patient with no chest pain or any worsening cough patient did not have any abdominal pain nausea vomiting or any loose stools. No new lab has been obtained today Objective - Vital Signs Vital signs: Vital Signs Temp 97.9 F 12/19/24 08:39 Pulse 82 12/19/24 16:06 Resp 16 12/19/24 15:34 BP 159/74 12/19/24 15:34 Pulse Ox 97 12/19/24 15:34 FiO2 100 12/17/24 04:00 Intake & Output 12/18/24 12/19/24 12/19/24 18:59 06:59 18:59 Intake Total 120 237 Output Total 3350 2100 Balance -3349 -1979 237 Weight 67.5 kg Intake: Oral 120 237 Output: Urine 3350 2100 Other: Voiding Method Indwelling Catheter Indwelling Catheter Indwelling Catheter # Bowel Movements 1 ABP, PAP, CO, CI - Last Documented Arterial Blood Pressure 163/60 - Exam GENERAL DESCRIPTION: An elderly female lying in bed in no distress RESPIRATORY SYSTEM: Unlabored breathing , decreased breath sounds at bases HEART: S1 S2 regular rate and rhythm , ABDOMEN: Soft , no tenderness EXTREMITIES: No edema feet - Labs CBC & Chem 7: 12/18/24 07:21 12/18/24 07:21 Labs: Abnormal Lab Results - Last 24 Hours (Table) 12/18/24 12/19/24 12/19/24 Range/Units 20:03 06:04 11:49 POC Glucose (mg/dL) 175 H 168 H 233 H (70-110) mg/dL Microbiology - Last 24 Hours (Table) 12/13/24 19:00 Blood Culture - Final Blood Assessment and Plan (1) Pneumonia Current Visit: Yes Status: Acute Code(s): J18.9 - PNEUMONIA, UNSPECIFIED ORGANISM SNOMED Code(s): 083486047 (2) Sepsis Current Visit: Yes Status: Acute Code(s): A41.9 - SEPSIS, UNSPECIFIED ORGANISM SNOMED Code(s): 24310325 Plan: 1patient presented to hospital with sepsis in this patient who did have fever of 103 F reported by the EMS tachycardia elevated white count meeting criteria for SIRS/sepsis source likely pneumonia as no evidence of any cellulitis abdominal tenderness UA has been reported negative and will need to cover for the resistant gram-positive as well as gram-negative pathogen 2-blood cultures has been negative, sputum is growing and MSSA and [place] 3-patient is afebrile white count normalized 4patient continue with cefepime while inpatient will transition to oral antibiotics on discharge Dictation was produced using [employer] dictation software. please excuse any grammatical, word or spelling errors. Time with Patient: Less than 30
[2024-12-19 16:46] LABS: Glucose,Whole Blood 76 mg/dL (70-110)
[2024-12-19] MEDS: GABAPENTIN 300 MG CAP PO SCH (18:10)
[2024-12-19] MEDS: ZINC OXIDE PASTE (Z-GUARD) 1 APPLIC TOPICAL PRN (18:11)
[2024-12-19 19:54] LABS: Glucose,Whole Blood 253 mg/dL (70-110)
[2024-12-19] MEDS: MONTELUKAST 10 MG TAB PO SCH (20:37)
[2024-12-20 06:21] LABS: Glucose,Whole Blood 96 mg/dL (70-110)
[2024-12-20 07:54] LABS: Glucose,Whole Blood 109 mg/dL (70-110)
[2024-12-20 08:42] LABS: African American GFR (CKD) >90 (>60 ml/min/1.73 sqM); Anion Gap 6 mmol/L; Blood Urea Nitrogen 26 mg/dL (7-17); Calcium 8.5 mg/dL (8.4-10.2); Carbon Dioxide 35 mmol/L (22-30); Chloride 96 mmol/L (98-107); Glucose 83 mg/dL (74-99); Non-African American GFR(CKD) >90 (>60 ml/min/1.73 sqM); Potassium 3.4 mmol/L (3.5-5.1); Sodium 137 mmol/L (137-145)
[2024-12-20] MEDS: POTASSIUM CHLORIDE ER 20 MEQ TAB.ER PO STA (10:27)
[2024-12-20 12:23] LABS: Glucose,Whole Blood 120 mg/dL (70-110)
--- NOTE | 2024-12-20 13:20 | P.PN ---
Subjective Progress Note Date: 12/20/24 This is a 64-year-old female who presented to the emergency department from [facility] and was noted to be unresponsive and apparently per [facility] staff patient was baseline this morning. Patient also noted to have a 103 temp while at the facility and patient was transported here via EMS for further evaluation. Patient has a significant past medical history of atrial fibrillation, coronary artery disease, angina, COPD, previous CVA, GERD, hyperlipidemia, hypertension, osteoarthritis, seizure disorder, Crohn's disease, anxiety/bipolar depression, history of polysubstance abuse, continued ongoing nicotine dependence, past history of alcohol abuse. Patient with significant weakness had been at [facility] for quite some time and has had multiple hospitalizations for significant comorbidities. Patient labs reviewed on admission revealing a white count of 39.7, hemoglobin 9.2, platelets 461, ABG revealing a pH of 7.25, pCO2 elevated at 65, pO2 215, bicarb elevated at 29. Sodium was 135 with a potassium of 5.3, creatinine 0.55, blood sugars elevated, lactic acid 1.4, calcium 8.1, ammonia level 79, troponin 0.052, BNP 256, TSH 3.6, urinalysis negative, urine drug screen was positive for opiates and TCAs otherwise virology testing was all negative including RSV, COVID, influenza. Chest x-ray on admission showed patchy infiltrate opacities bilateral suggestive of multifocal pneumonia and patient is currently on mechanical ventilation. Brain CT showing no acute intracranial process, EKG showing sinus tachycardia with occasional PVCs possible atrial flutter although repeat EKG showing sinus tachycardia. Patient being admitted to ICU with pulmonary and neurology on consultation. 12/15/2024 Patient is seen in follow-up today continues in the ICU on mechanical ventilation with to a 50% and PEEP is 5. No plans of weaning at this time and discussing the need for bronchoscopy. Preliminary sputum culture showing Staph aureus and maintained on cefepime with infectious disease following. Patient is also maintained on steroids and will continue with sliding scale and adjust insulins accordingly. 12/16/2024 Patient is seen in follow-up today continues on mechanical ventilation with an FiO2 of 50% and PEEP is 5. No plans for extubation at this time and is scheduled to undergo bronchoscopy with pulmonary gym manager. Patient is maintained on antibiotics with preliminary culture showing Staph aureus. 12/17/2024 Patient is seen in follow-up today status post extubation maintained on 4 L via nasal cannula and tolerating well. Patient is alert and oriented and following commands appropriately. Chest x-ray today reveals stable with cardiomegaly and trace pleural effusions correlate for CHF with COPD changes. Preliminary culture showing Staph aureus and [place] on the initial sputum and is status post bronchoscopy with lavage and preliminary is showing Staph aureus. Infectio us disease following and patient is maintained on IV antibiotics in the form of cefepime and will continue. Patient was given a dose of Lasix yesterday and recommend close monitoring of volume overload and discontinuing fluids once patient is tolerating some diet. Patient also continues on [id number] DuoNeb treatments along with some Mucinex being added and steroids. Continue monitoring Accu-Cheks and continue with sliding scale as needed. Patient will need reevaluation by physical therapy for significant weakness with plans on returning to [facility]. 12/18/2024 Patient is evaluated in follow-up on the stepdown unit. Patient has been extubated and remains on oxygen via nasal cannula. She is awake alert and oriented. Her sputum cultures have finalized revealing Staphylococcus aureus. Chest x-ray today reveals subtle scattered opacities which may represent an atypical pneumonia. Patient remains on IV cefepime. ID following closely. Labs today reveal a white blood cell count of 8.5 hemoglobin 8.2, sodium 137, potassium 3.6, BUN of 20 creatinine of 0.48. Magnesium of 1.6. Patient remains on high-dose IV Solu-Medrol. EEG was negative for any seizure-like or epileptiform activity. Echocardiogram comes back revealing EF of 55 to 60% with trace MR and mild to moderate TR. 12/19/2024 Patient evaluated in follow-up in the stepdown unit. She has been continued on oxygen via nasal cannula and not reporting any significant shortness of breath at this time. She continues on IV cefepime for the staph coccus aureus in the sputum. Is been transition to oral prednisone. Patient is unsure whether she wants to return to the [facility] [place] or discharge home. 12/20/2024 Patient evaluated in follow-up on the medical floor resting bed comfortably. She has no significant shortness of breath at this time. Patient has been successfully extubated and is continued on oxygen via nasal cannula at 2 L with saturations of 97%. She remains on IV cefepime for Staph aureus in the sputum. Patient has been transition to oral prednisone. We will do a voiding trial today and remove the indwelling Griffin catheter. Potassium 3.4 today sodium 137, BUN of 26 creatinine 0.57. Review of systems: Constitutional: No reports of fatigue, fever, or chills Cardiovascular: No reports of chest pain or palpitations Respiratory: No reports of worsening shortness of breath reports a week cough and mild sore throat GI: No reports of nausea, vomiting, or diarrhea : No reports of dysuria or retention Neurovascular:reports of weakness All medications have been reviewed PHYSICAL EXAMINATION: GENERAL: The patient is recently extubated 30 minutes prior maintained on 4 L, alert and oriented x 3, thin built, cachectic, ill-appearing, appears elderly HEENT: Pupils are round and equally reacting to light. EOMI. No scleral icterus. No conjunctival pallor. Normocephalic, atraumatic. No pharyngeal erythema. No thyromegaly. CARDIOVASCULAR: S1 and S2 muffled PULMONARY: Diminished breath sounds bilaterally with some faint expiratory wheezing and coarse scattered rhonchi noted, no accessory muscle use noted ABDOMEN: Soft, nontender, nondistended, normoactive bowel sounds. No palpable organomegaly. MUSCULOSKELETAL: No joint swelling or deformity. EXTREMITIES: No cyanosis, clubbing, or pedal edema. NEUROLOGICAL: Alert and oriented x 3, following commands, diffusely weak SKIN: No rashes. Pale Assessment: Acute on chronic hypoxic respiratory failure, multifactorial secondary to acute COPD exacerbation along with concerns of pneumonia of the right lower lobe, possible aspiration/atelectasis, sputum culture showing Staph aureus Sepsis, present on admission secondary to acute right lower lobe pneumonia requiring mechanical ventilation, status post extubation today on 12/17/2024, maintained on 4 L. Sputum culture showing Staph aureus and [place] and is also status post bronchoscopy with cultures pending COPD acute exacerbation Leukocytosis, multifactorial secondary to sepsis as well as possible steroid- induced Refractory hypotension, likely secondary to sepsis requiring pressor support, improved and off pressor support is a downgrade once 3 S. bed becomes available Hypertension history Continued ongoing nicotine dependence History of Crohn's disease with IBS, follows with GI outpatient History of chronic anemia History of chronic back pain History of anxiety/depression/bipolar disorder History of seizure disorder maintained on Keppra History of CVA History of polysubstance abuse with crack/cocaine and has not used those illicit drugs in quite some time GI prophylaxis DVT prophylaxis Full code Plan: Patient was admitted with acute on chronic hypoxic respiratory failure, suspicious for possible aspiration right lower lobe pneumonia. Patient started on antibiotics with pulmonary gym manager following. Pulmonary following status post bronchoscopy and culture showing staph aureus, previous sputum culture positive for Staph aureus and [place] albicans, maintained on cefepime with infectious disease following Neurology following the patient undergoing further workup as patient was found unresponsive, no further workup at this time it has been completed. It was felt that the episode of unresponsiveness was due to a septic encephalopathy. Patient is on a dysphagia level 2 ground diet with aspiration precautions Patient has been transition to oral prednisone. Continue Accu-Cheks ACHS and sliding scale insulin Recommend incentive spirometer use and will continue on DuoNeb treatments and steroids. PT/OT therapy to evaluate with case management following as patient will be returning to [facility] on discharge patient states that she is unsure whether she wants to return to the [facility] or discharge home and I discussed with the patient that medically she is doing well and should be able to return t o the [facility] tomorrow on Saturday. The impression and plan of care has been dictated by Ninoska Dawn Nurse Practitioner as directed. Dr. Antonette MD I have performed a history and examination and MDM of this patient, discussed the same with the dictator, and agree with the dictator's assessment and plan as written ,documented as a scribe. Based on total visit time, I have performed more than 50% of the visit. Objective - Vital Signs Vital signs: Vital Signs Temp 97.7 F 12/20/24 08:00 Pulse 89 12/20/24 08:40 Resp 16 12/20/24 08:00 BP 151/79 12/20/24 08:00 Pulse Ox 98 12/20/24 08:25 FiO2 100 12/17/24 04:00 Intake & Output 12/19/24 12/20/24 12/20/24 18:59 06:59 18:59 Intake Total 474 240 Output Total 200 Balance 474 -200 240 Weight 67.5 kg Intake: Oral 474 240 Output: Urine 200 Other: Voiding Method Indwelling Catheter Indwelling Catheter ABP, PAP, CO, CI - Last Documented Arterial Blood Pressure 163/60 - Labs CBC & Chem 7: 12/18/24 07:21 12/20/24 07:16 Labs: Abnormal Lab Results - Last 24 Hours (Table) 12/19/24 12/19/24 12/20/24 Range/Units 11:49 19:53 07:16 Potassium 3.4 L (3.5-5.1) mmol/L Chloride 96 L (98-107) mmol/L Carbon Dioxide 35 H (22-30) mmol/L BUN 26 H (7-17) mg/dL POC Glucose (mg/dL) 233 H 253 H (70-110) mg/dL Microbiology - Last 24 Hours (Table) 12/13/24 19:00 Blood Culture - Final Blood Assessment and Plan Time with Patient: Less than 30
--- NOTE | 2024-12-20 14:42 | P.PN ---
Subjective Progress Note Date: 12/20/24 Patient is a 64-year-old female with past medical history significant for atrial fibrillation anticoagulated on Xarelto, coronary artery disease, hypertension, hyperlipidemia, CVA/TIA, seizure disorder, polysubstance abuse, GERD, Crohn's disease, COPD, home O2 dependence, among other things. Patient currently intubated mechanical ventilator unable to provide information. According to the ER documentation patient was sent in from [facility]. Noted to be minimally responsive and did require bag mask ventilation. Intubated on arrival in the emergency department. Workup in the ED including a chest x-ray which shows the endotracheal tube terminating approximately 4 cm above the della. Enteric tube coursing below the diaphragm. Right IJ central line catheter with the tip terminating near the cavoatrial junction. Patchy opacities bilateral suggestive of multifocal pneumonia. CBC: WBC count elevated at 40, hemoglobin 9.2, platelets 461. CMP: Sodium 135, potassium 5.3, chloride 100, serum bicarb 32, BUN 16, creatinine 0.55, glucose 206. Lactic 0.9. LFTs not elevated. Ammonia 79. Troponin less than 0.012 and then 0.05. NT proBNP 256. Brain CT did not show any acute intracranial process, no acute intraparenchymal hemorrhage or mass effect. CT of the head and neck did not show any evidence of dissection of the cervical internal carotid arteries or vertebral arteries. No evidence of significant flow-limiting stenosis at the carotid bifurcation. No evidence of intracranial high-grade stenosis or intracranial aneurysm. Urine toxicology screen positive for opiates and tricyclic antidepressants. Urinalysis unremarkable for UTI. Initial ABG following intubation done on FiO2 of 100% showing a PaO2 of 215, pCO2 65, pH of 7.25. Patient currently being seen in the emergency department, trauma bay 2. Remains intubated mechanical ventilator with current ventilator settings assist-control, respiratory rate 20, tidal volume 450, FiO2 70%, PEEP of 5. Most recent ABGs from this morning done on the settings show improvement in the patient's acid-base balance and there is a PaO2 of 193, pCO2 of 42, pH of 7.46. FiO2 was per appropriately dropped to 50%. Peak airway pressure 32 with a static pressure of 16, indicating some component of airway resistance. Patient is currently synchronous with set rate. Sedated on propofol which is infusing at 30 mcg/kg/min. Fentanyl is also infusing at 0.5 mcg/kg/h. Previously fluid resuscitated with 2 L lactated Ringer's IV bolus and continues with Lactated Ringer's infusing at 130 mL/h. Blood pressure remained hypotensive despite fluid resuscitation and started on low-dose norepinephrine which is infusing at 0.07 mcg/kg/min. Patient is awaiting a bed in the intensive care unit On 12/15/2024, the patient is being seen for a follow-up. Remains intubated on the mechanical ventilator. This morning, the patient is on propofol running at 50 mcg/kg/min and fentanyl is running at 1 mcg/kg/h. The patient is on assist-control mode of mechanical ventilation at rate of 20, tidal volume of 450, FiO2 50% with a PEEP of 5. Blood gas showed a pH of 7.41 with a pCO2 46 and pO2 of 95. The follow-up chest x-ray was done this morning and the patient continues to have volume loss in the right lung base along with atelectatic changes in the right lung base and possibly some consolidation effusion. The patient also has cardiomegaly and background COPD. A CAT scan of the chest was also completed yesterday and the patient was found to have advanced emphysematous changes bilaterally with upper lobe predominance. There is also small bilateral pleural effusion right more than left, right basilar consolidation/atelectasis and an abrupt cutoff sign in the right lower lobe bronchus. Obviously, this needs to be further investigated and the patient will need a bronchoscopy to evaluate the patency of the right lower lobe. WBC count is at 14.1, hemoglobin 7.7 and the platelet count is up to 73. Sodium is at 137, potassium 3.8, BUN is 9 with a creatinine of 0.37. In terms of antibiotic coverage, the patient is on IV cefepime and vancomycin. The sputum sample is showing presumptive staff aureus. ID is on the case. On 12/16/2024, the patient is intubated on mechanical ventilator. The patient is on propofol running at 50 mcg/kg/min and fentanyl which is running at 1 mcg/kg/h. She is calm and comfortable and synchronous on mechanical ventilator. Chest x-ray was noted from this morning and there is some worsening in the bibasilar consolidation and some volume loss in the right lung base and the patient also has cardiomegaly and pulm vessel congestion. Based on that, a bronchoscopy was done and copious amount of blood. Treated with aspirated from the right lower lobe bronchus. The airway was patent and there was no evidence of any endobronchial tumors or lesions. Therapeutic airway suctioning was done and a bronchial lavage of the right lower lobe was obtained. Meanwhile, the patient remains on the mechanical ventilator, this morning, she is on assist- control mode with rate of 20, tidal volume of 450, FiO2 50% with a PEEP of 5. Blood gas showed a pH of 7.49 with a pCO2 of 38 and pO2 of 78. The patient is on no pressors. The white cell count is at 8.4 with a hemoglobin of 7 and a platelet count of 237. Electrolytes are all within normal limits. BUN is 12 with a creatinine of 0.34. The sputum sample that was collected earlier on 12/13/2024 showed MSSA. The patient remains on broad-spectrum antibiotics and the patient remains on IV cefepime and vancomycin. Remains on bronchodilators. Remains on steroids. Peak airway pressure is around 24. Continues to receive enteral feeding for nutritional support. IV fluids will be cut down to KVO. On 12/17/2024, the patient is extubated, awake and calm and comfortable and communicating. The patient is afebrile hemodynamically stable on 4 L of oxygen by nasal cannula. The follow-up chest x-ray from this morning shows some interval improvement in aeration of the right lung base. There is persistent cardiomegaly and trace pleural effusion bilaterally and the cardiopulmonary silhouette is unremarkable. The patient continues to have a congested cough. Unable to bring up much sputum. Bronchoscopy endobronchial lavage was done prior to extubation and the cultures are showing presumptive Staph aureus. This has been confirmed to be MSSA the patient remains on cefepime. Remains on DuoNeb nebulized treatments [id number]. Remains on a combination performance of Pulmicort. Remains on IV Solu-Medrol. Remains on lactated Ringer at rate of 20 cc an hour. Remains on IV Solu-Medrol 60 mg every 6 hours. The white cycles of time with hemoglobin 8.3 with a platelet count of 271. BUN 17 with a creatinine of 0.6. Sodium levels at 141 with a potassium level of 3.5. Serum bicarb is at 37. No other significant events overnight. Patient has been extubated on 12/16/2024. On 12/18/2024, the patient continues to have a congested cough. Less short of breath. Less bronchospastic and wheezy. No altered mentation. No chest pain. No fever or chills. Bronchoscopy endobronchial lavage was also done during her hospital stay and the cultures are positive for MSSA. The patient continues to be on IV cefepime. Rest of the medications are unchanged. Remains on bronchodilators. Remains on IV Solu-Medrol. Tolerating diet. On 12/19/2024, the patient is being seen for a follow-up. Doing well. No specific complaints. Resting comfortably in bed. Continues to have some cough and congestion. No fever. No chills. No chest pain. No pleurisy. No hemoptysis. She remains on 2 L of oxygen by nasal cannula. No other significant events overnight. Remains on IV cefepime. Rest of the medications are essentially unchanged. On 12/20/2024, the patient is being seen for a follow-up his condition is stable. Continues to have a congested cough. No significant sputum production. She is being treated for an MSSA pneumonia and the patient is currently on IV cefepime. Rest of medications are unchanged. The patient was started on prednisone burst taper. The patient is also on DuoNeb updrafts. Sodium is at 137, potassium is at 3.4, bicarb is at 35 with a BUN of 26 and a creatinine of 0.5. She is having skeletal chest wall pain. Objective - Vital Signs Vital signs: Vital Signs Temp 97.7 F 12/20/24 08:00 Pulse 89 12/20/24 08:40 Resp 16 12/20/24 08:00 BP 151/79 12/20/24 08:00 Pulse Ox 98 12/20/24 08:25 FiO2 100 12/17/24 04:00 Intake & Output 12/19/24 12/20/24 12/20/24 18:59 06:59 18:59 Intake Total 474 240 Output Total 200 Balance 474 -200 240 Weight 67.5 kg Intake: Oral 474 240 Output: Urine 200 Other: Voiding Method Indwelling Catheter Indwelling Catheter Indwelling Catheter ABP, PAP, CO, CI - Last Documented Arterial Blood Pressure 163/60 - Exam GENERAL EXAM: Sedated, 64-year-old female, extubated, currently on 4 L of oxygen by nasal cannula HEAD: Normocephalic and atraumatic EYES: Normal reaction of pupils, equal size. NOSE: Clear with pink turbinates. THROAT: No erythema or exudates. NECK: No masses, no JVD. Right IJ central line catheter secured in place CHEST: No chest wall deformity. LUNGS: Equal air entry with scattered rhonchi. Intubated mechanical ventilator. CVS: S1 and S2 normal with no audible murmur, regular rhythm. No extra heart sounds ABDOMEN: No hepatosplenomegaly, active bowel sounds, no guarding or rigidity. SPINE: No scoliosis or deformity SKIN: No rashes CENTRAL NERVOUS SYSTEM: Neurologically, the patient is awake and alert and the patient does not have any focal neurological deficit. Cranial nerves are essentially intact. EXTREMITIES: There is no peripheral edema, clubbing, or cyanosis. Peripheral pulses are intact. - Labs CBC & Chem 7: 12/18/24 07:21 12/20/24 07:16 Labs: Abnormal Lab Results - Last 24 Hours (Table) 12/19/24 12/19/24 12/20/24 Range/Units 11:49 19:53 07:16 Potassium 3.4 L (3.5-5.1) mmol/L Chloride 96 L (98-107) mmol/L Carbon Dioxide 35 H (22-30) mmol/L BUN 26 H (7-17) mg/dL POC Glucose (mg/dL) 233 H 253 H (70-110) mg/dL Microbiology - Last 24 Hours (Table) 12/13/24 19:00 Blood Culture - Final Blood Assessment and Plan Assessment: Acute hypoxemic and hypercapnic respiratory failure, secondary acute exacerbation and bibasilar pneumonia. The patient has significant volume loss in the right lung base along with area of consolidation. A bronchoscopy was done on 12/16/2024 and copious amount of respiratory secretions were identified in the right lower lobe bronchus. Nevertheless, there was no evidence of any endobronchial tumors or lesions. The presumptive results from the BAL is positive for Staph aureus and the previous sputum sample is positive for MSSA a nd the patient remains on a combination of cefepime The patient has had previous bronchoscopy and infection with stenotrophomonas back in September 2024.. CAT scan of the chest done on 12/14/2024 showed small bilateral pleural effusion, diffuse emphysematous changes bilaterally with upper lobe predominance and the patient also has right basilar atelectasis/consolidation/volume loss along with an abrupt cut off sign in the right lower lobe bronchus. The patient was extubated on 12/16/2024 and the patient is currently on 2 L of oxygen by nasal cannula Acute COPD exacerbation with secondary respiratory failure, improving and the patient obviously is less bronchospastic and wheezy, maintained on bronchodilators and steroids, clinically improved Pneumonia/sepsis, rule out possibility of right lower lobe pneumonia/atelectasis. Sputum sample was positive for Staph aureus and the patient remains on cefepime Acute leukocytosis, secondary to above, improved Hypotension secondary to sepsis, improved and the patient is currently normotensive on no pressors History of paroxysmal atrial fibrillation, anticoagulated on Xarelto, currently sinus mechanism Chronic anemia Chronic obstructive pulmonary disease Chronic hypoxemic respiratory failure History recent of bronchoscopy with BAL done October 02, 2024, microbiology positive for stenotrophomonas maltophilia at that time. History of hypertension History of hyperlipidemia Coronary artery disease History of CVA/TIA History of seizure disorder, on Keppra History of polysubstance abuse History of gastroesophageal reflux disease History of Crohn's disease Chronic nicotine dependence History of anxiety/depression/bipolar Plan: Clinically stable as the patient is being treated for staphylococcal pneumonia Skeletal chest wall pain and the patient will be given [place] 5 Patient was extubated on 12/16/2024 Bronchoscopy and therapeutic airway suctioning was done and copious amount of resp secretions were suctioned from the right lung especially from the right lower lobe endobronchial lavage was also done on 12/16/2024 Continue bronchodilators Continue steroids and discontinued IV Solu-Medrol start the patient on pre dnisone burst taper Continue cefepime Sputum sample was positive for MSSA BAL also showing Staph aureus/MSSA CAT scan of the chest from 12/14/2024 was noted Patient is currently off pressors Continue anticoagulation with Xarelto Mucinex DM for cough and congestion Aggressive pulmonary toileting She may need a prolonged antibiotic course, recommend additional 7 to 10 days of antibiotics orally due to her extensive staphylococcal pneumonia related to MSSA.
[2024-12-20] MEDS: HYDROcodone/APAP 5-325MG 1 EACH TAB PO PRN (16:01)
--- NOTE | 2024-12-20 16:25 | P.PN ---
Subjective Progress Note Date: 12/20/24 Principal diagnosis: Reason for follow-up is sepsis/pneumonia Patient is a 64-year-old female with a past medical history significant for hypertension hyperlipidemia osteoarthritis COPD CVA TIA coronary artery disease patient has been [facility] into the [facility] unresponsive, patient did have a fever abnormal x-ray concerning for possible pneumonia/sepsis. On today's evaluation that is 12/20/2024, Patient is afebrile patient is currently on 2 L nasal oxygen and denies having any shortness of breath, the patient denies any chest pain or cough, the patient denies any nausea vomiting did not have any abdominal pain and no diarrhea, complaining of some sore throat. Patient did have creatinine 0.57 Objective - Vital Signs Vital signs: Vital Signs Temp 98.5 F 12/20/24 11:44 Pulse 86 12/20/24 15:20 Resp 16 12/20/24 11:44 BP 129/76 12/20/24 11:44 Pulse Ox 97 12/20/24 11:44 FiO2 100 12/17/24 04:00 Intake & Output 12/19/24 12/20/24 12/20/24 18:59 06:59 18:59 Intake Total 474 1560 Output Total 200 700 Balance 474 -200 860 Weight 67.5 kg Intake: Oral 474 1560 Output: Urine 200 700 Other: Voiding Method Indwelling Catheter Indwelling Catheter Indwelling Catheter # Bowel Movements 1 ABP, PAP, CO, CI - Last Documented Arterial Blood Pressure 163/60 - Exam GENERAL DESCRIPTION: An elderly female lying in bed in no distress RESPIRATORY SYSTEM: Unlabored breathing , decreased breath sounds at bases HEART: S1 S2 regular rate and rhythm , ABDOMEN: Soft , no tenderness EXTREMITIES: No edema feet - Labs CBC & Chem 7: 12/18/24 07:21 12/20/24 07:16 Labs: Abnormal Lab Results - Last 24 Hours (Table) 12/19/24 12/20/24 12/20/24 Range/Units 19:53 07:16 12:21 Potassium 3.4 L (3.5-5.1) mmol/L Chloride 96 L (98-107) mmol/L Carbon Dioxide 35 H (22-30) mmol/L BUN 26 H (7-17) mg/dL POC Glucose (mg/dL) 253 H 120 H (70-110) mg/dL Microbiology - Last 24 Hours (Table) 12/13/24 19:00 Blood Culture - Final Blood Assessment and Plan (1) Pneumonia Current Visit: Yes Status: Acute Code(s): J18.9 - PNEUMONIA, UNSPECIFIED O RGANISM SNOMED Code(s): 805749036 (2) Sepsis Current Visit: Yes Status: Acute Code(s): A41.9 - SEPSIS, UNSPECIFIED ORGANISM SNOMED Code(s): 65735550 (3) Thrush Current Visit: Yes Status: Acute Code(s): B37.0 - CANDIDAL STOMATITIS SNOMED Code(s): 10672060 Plan: 1patient presented to hospital with sepsis in this patient who did have fever of 103 F reported by the EMS tachycardia elevated white count meeting criteria for SIRS/sepsis source likely pneumonia as no evidence of any cellulitis a bdominal tenderness UA has been reported negative and will need to cover for the resistant gram-positive as well as gram-negative pathogen 2-blood cultures has been negative, sputum is growing and MSSA and [place] 3-patient is afebrile white count normalized 4patient complaining of sore throat possible thrush and nystatin swish and swallow continue cefepime will transition to oral Keflex on discharge Dictation was produced using [employer] dictation software. please excuse any grammatical, word or spelling errors. Time with Patient: Less than 30
[2024-12-20 17:02] LABS: Glucose,Whole Blood 176 mg/dL (70-110)
[2024-12-20] MEDS: NYSTATIN 100,000 UNIT/ML SUSP 500,000 UNIT/5 ML CUP PO SCH (18:19)
[2024-12-20 20:25] LABS: Glucose,Whole Blood 213 mg/dL (70-110)
[2024-12-21 07:22] LABS: Glucose,Whole Blood 90 mg/dL (70-110)
[2024-12-21 08:02] VITALS: TEMP 98.2
--- NOTE | 2024-12-21 12:50 | P.PN ---
Subjective Progress Note Date: 12/21/24 Patient is a 64-year-old female with past medical history significant for atrial fibrillation anticoagulated on Xarelto, coronary artery disease, hypertension, hyperlipidemia, CVA/TIA, seizure disorder, polysubstance abuse, GERD, Crohn's disease, COPD, home O2 dependence, among other things. Patient currently intubated mechanical ventilator unable to provide information. According to the ER documentation patient was sent in from [facility]. Noted to be minimally responsive and did require bag mask ventilation. Intubated on arrival in the emergency department. Workup in the ED including a chest x-ray which shows the endotracheal tube terminating approximately 4 cm above the della. Enteric tube coursing below the diaphragm. Right IJ central line catheter with the tip terminating near the cavoatrial junction. Patchy opacities bilateral suggestive of multifocal pneumonia. CBC: WBC count elevated at 40, hemoglobin 9.2, platelets 461. CMP: Sodium 135, potassium 5.3, chloride 100, serum bicarb 32, BUN 16, creatinine 0.55, glucose 206. Lactic 0.9. LFTs not elevated. Ammonia 79. Troponin less than 0.012 and then 0.05. NT proBNP 256. Brain CT did not show any acute intracranial process, no acute intraparenchymal hemorrhage or mass effect. CT of the head and neck did not show any evidence of dissection of the cervical internal carotid arteries or vertebral arteries. No evidence of significant flow-limiting stenosis at the carotid bifurcation. No evidence of intracranial high-grade stenosis or intracranial aneurysm. Urine toxicology screen positive for opiates and tricyclic antidepressants. Urinalysis unremarkable for UTI. Initial ABG following intubation done on FiO2 of 100% showing a PaO2 of 215, pCO2 65, pH of 7.25. Patient currently being seen in the emergency department, trauma bay 2. Remains intubated mechanical ventilator with current ventilator settings assist-control, respiratory rate 20, tidal volume 450, FiO2 70%, PEEP of 5. Most recent ABGs from this morning done on the settings show improvement in the patient's acid-base balance and there is a PaO2 of 193, pCO2 of 42, pH of 7.46. FiO2 was per appropriately dropped to 50%. Peak airway pressure 32 with a static pressure of 16, indicating some component of airway resistance. Patient is currently synchronous with set rate. Sedated on propofol which is infusing at 30 mcg/kg/min. Fentanyl is also infusing at 0.5 mcg/kg/h. Previously fluid resuscitated with 2 L lactated Ringer's IV bolus and continues with Lactated Ringer's infusing at 130 mL/h. Blood pressure remained hypotensive despite fluid resuscitation and started on low-dose norepinephrine which is infusing at 0.07 mcg/kg/min. Patient is awaiting a bed in the intensive care unit On 12/15/2024, the patient is being seen for a follow-up. Remains intubated on the mechanical ventilator. This morning, the patient is on propofol running at 50 mcg/kg/min and fentanyl is running at 1 mcg/kg/h. The patient is on assist-control mode of mechanical ventilation at rate of 20, tidal volume of 450, FiO2 50% with a PEEP of 5. Blood gas showed a pH of 7.41 with a pCO2 46 and pO2 of 95. The follow-up chest x-ray was done this morning and the patient continues to have volume loss in the right lung base along with atelectatic changes in the right lung base and possibly some consolidation effusion. The patient also has cardiomegaly and background COPD. A CAT scan of the chest was also completed yesterday and the patient was found to have advanced emphysematous changes bilaterally with upper lobe predominance. There is also small bilateral pleural effusion right more than left, right basilar consolidation/atelectasis and an abrupt cutoff sign in the right lower lobe bronchus. Obviously, this needs to be further investigated and the patient will need a bronchoscopy to evaluate the patency of the right lower lobe. WBC count is at 14.1, hemoglobin 7.7 and the platelet count is up to 73. Sodium is at 137, potassium 3.8, BUN is 9 with a creatinine of 0.37. In terms of antibiotic coverage, the patient is on IV cefepime and vancomycin. The sputum sample is showing presumptive staff aureus. ID is on the case. On 12/16/2024, the patient is intubated on mechanical ventilator. The patient is on propofol running at 50 mcg/kg/min and fentanyl which is running at 1 mcg/kg/h. She is calm and comfortable and synchronous on mechanical ventilator. Chest x-ray was noted from this morning and there is some worsening in the bibasilar consolidation and some volume loss in the right lung base and the patient also has cardiomegaly and pulm vessel congestion. Based on that, a bronchoscopy was done and copious amount of blood. Treated with aspirated from the right lower lobe bronchus. The airway was patent and there was no evidence of any endobronchial tumors or lesions. Therapeutic airway suctioning was done and a bronchial lavage of the right lower lobe was obtained. Meanwhile, the patient remains on the mechanical ventilator, this morning, she is on assist- control mode with rate of 20, tidal volume of 450, FiO2 50% with a PEEP of 5. Blood gas showed a pH of 7.49 with a pCO2 of 38 and pO2 of 78. The patient is on no pressors. The white cell count is at 8.4 with a hemoglobin of 7 and a platelet count of 237. Electrolytes are all within normal limits. BUN is 12 with a creatinine of 0.34. The sputum sample that was collected earlier on 12/13/2024 showed MSSA. The patient remains on broad-spectrum antibiotics and the patient remains on IV cefepime and vancomycin. Remains on bronchodilators. Remains on steroids. Peak airway pressure is around 24. Continues to receive enteral feeding for nutritional support. IV fluids will be cut down to KVO. On 12/17/2024, the patient is extubated, awake and calm and comfortable and communicating. The patient is afebrile hemodynamically stable on 4 L of oxygen by nasal cannula. The follow-up chest x-ray from this morning shows some interval improvement in aeration of the right lung base. There is persistent cardiomegaly and trace pleural effusion bilaterally and the cardiopulmonary silhouette is unremarkable. The patient continues to have a congested cough. Unable to bring up much sputum. Bronchoscopy endobronchial lavage was done prior to extubation and the cultures are showing presumptive Staph aureus. This has been confirmed to be MSSA the patient remains on cefepime. Remains on DuoNeb nebulized treatments [id number]. Remains on a combination performance of Pulmicort. Remains on IV Solu-Medrol. Remains on lactated Ringer at rate of 20 cc an hour. Remains on IV Solu-Medrol 60 mg every 6 hours. The white cycles of time with hemoglobin 8.3 with a platelet count of 271. BUN 17 with a creatinine of 0.6. Sodium levels at 141 with a potassium level of 3.5. Serum bicarb is at 37. No other significant events overnight. Patient has been extubated on 12/16/2024. On 12/18/2024, the patient continues to have a congested cough. Less short of breath. Less bronchospastic and wheezy. No altered mentation. No chest pain. No fever or chills. Bronchoscopy endobronchial lavage was also done during her hospital stay and the cultures are positive for MSSA. The patient continues to be on IV cefepime. Rest of the medications are unchanged. Remains on bronchodilators. Remains on IV Solu-Medrol. Tolerating diet. On 12/19/2024, the patient is being seen for a follow-up. Doing well. No specific complaints. Resting comfortably in bed. Continues to have some cough and congestion. No fever. No chills. No chest pain. No pleurisy. No hemoptysis. She remains on 2 L of oxygen by nasal cannula. No other significant events overnight. Remains on IV cefepime. Rest of the medications are essentially unchanged. On 12/20/2024, the patient is being seen for a follow-up his condition is stable. Continues to have a congested cough. No significant sputum production. She is being treated for an MSSA pneumonia and the patient is currently on IV cefepime. Rest of medications are unchanged. The patient was started on prednisone burst taper. The patient is also on DuoNeb updrafts. Sodium is at 137, potassium is at 3.4, bicarb is at 35 with a BUN of 26 and a creatinine of 0.5. She is having skeletal chest wall pain. The patient is seen today December 21, 2024 in follow-up on the regular medical floor. She is sitting up in bed. Awake and alert in no acute distress. She is maintaining O2 saturations in the 90s on 4 L/min per nasal cannula. She is feeling better today compared to yesterday. She did undergo bronchoscopy with BAL on December 16, 2024. Cultures were positive for Staphylococcus aureus, MSSA. She completed 1 week of cefepime today. Glucose 90. She remains on DuoNeb inhal ations, Pulmicort and Perforomist inhalations, Mucinex, prednisone taper. She is anticoagulated with Xarelto. Objective - Vital Signs Vital signs: Vital Signs Temp 98.2 F 12/21/24 07:09 Pulse 74 12/21/24 12:34 Resp 16 12/21/24 07:09 BP 131/71 12/21/24 07:09 Pulse Ox 98 12/21/24 09:06 FiO2 100 12/17/24 04:00 Intake & Output 12/20/24 12/21/24 12/21/24 18:59 06:59 18:59 Intake Total 1560 222 Output Total 700 600 Balance 860 -378 Intake: Oral 1560 222 Output: Urine 700 600 Other: Voiding Method Indwelling Catheter External Catheter External Catheter # Bowel Movements 1 1 ABP, PAP, CO, CI - Last Documented Arterial Blood Pressure 163/60 - Exam GENERAL EXAM: Alert, active, pleasant 64-year-old female, on 4 L nasal cannula, comfortable in no apparent distress. HEAD: Normocephalic. EYES: Normal reaction of pupils, equal size. NOSE: Clear with pink turbinates. THROAT: No erythema or exudates. NECK: No masses, no JVD. CHEST: No chest wall deformity. LUNGS: Equal air entry with few scattered rhonchi bilaterally. CVS: S1 and S2 normal with no audible murmur, regular rhythm. ABDOMEN: No hepatosplenomegaly, normal bowel sounds, no guarding or rigidity. SPINE: No scoliosis or deformity SKIN: No rashes CENTRAL NERVOUS SYSTEM: No focal deficits, tone is normal in all 4 extremities. EXTREMITIES: There is no peripheral edema. No clubbing, no cyanosis. Peripheral pulses are intact. - Labs CBC & Chem 7: 12/18/24 07:21 12/20/24 07:16 Labs: Abnormal Lab Results - Last 24 Hours (Table) 12/20/24 12/20/24 Range/Units 17:00 20:20 POC Glucose (mg/dL) 176 H 213 H (70-110) mg/dL Assessment and Plan Assessment: Acute hypoxemic and hypercapnic respiratory failure, secondary acute exacerbation of chronic obstructive pulmonary disease and bibasilar pneumonia requiring intubation and mechanical ventilatory support on December 13, 2024. CAT scan of the chest done on 12/14/2024 showed small bilateral pleural effusion, diffuse emphysematous changes bilaterally with upper lobe predominance and the patient also has right basilar atelectasis/consolidation/volume loss along with an abrupt cut off sign in the right lower lobe bronchus. The patient was extubated on 12/16/2024 and the patient is currently on 4 L of oxygen by nasal cannula. A bronchoscopy was done on 12/16/2024 and copious amount of respiratory secretions were identified in the right lower lobe bronchus. Nevertheless, there was no evidence of any endobronchial tumors or lesions. Results from the BAL is positive for methicillin sensitive Staph aureus and the previous sputum sample is positive for MSSA and completed cefepime today 12/21/2024. Acute COPD exacerbation with secondary respiratory failure, improving and the patient obviously is less bronchospastic and wheezy, maintained on bronchodilators and steroids, clinically improved Pneumonia/sepsis, rule out possibility of right lower lobe pneumonia/atelectasis. Sputum sample was positive for Staph aureus and the patient remains on cefepime Acute leukocytosis, secondary to above, improved Hypotension secondary to sepsis, improved and the patient is currently normotensive on no pressors History of paroxysmal atrial fibrillation, anticoagulated on Xarelto, currently sinus mechanism Chronic anemia Chronic obstructive pulmonary disease Chronic hypoxemic respiratory failure History recent of bronchoscopy with BAL done October 02, 2024, microbiology positive for stenotrophomonas maltophilia at that time. History of hypertension History of hyperlipidemia Coronary artery disease History of CVA/TIA History of seizure disorder, on Keppra History of polysubstance abuse History of gastroesophageal reflux disease History of Crohn's disease Chronic nicotine dependence History of anxiety/depression/bipolar Plan: The patient was seen and evaluated Chest x-ray, labs and medications reviewed Microbiology reviewed Completed cefepime today Remains on DuoNeb inhalations Remains on Pulmicort and Perforomist inhalations Continued on Singulair Continued on a prednisone taper Titrate down the FiO2 as tolerated Anticoagulated with Xarelto Educated regarding complete smoking cessation Plan is to return to [facility] at discharge This patient was seen independently by the pulmonary nurse practitioner addressing pulmonary issues I have personally seen and examined the patient, performed the documentation and the assessment and plan as written. Number of minutes spent on the visit: 25 Dictation was produced using [employer] dictation software. Please excuse any grammatical, word or spelling errors.
[2024-12-21 13:08] LABS: Glucose,Whole Blood 165 mg/dL (70-110)
[2024-12-21 14:42] VITALS: BP 114/62; PULSE 68; RESP 21
--- NOTE | 2024-12-21 14:47 | P.DS ---
Providers Date of admission: 12/13/24 20:05 Expected date of discharge: 12/21/24 Attending physician: Buddy Walker Consults: 12/13/24 20:02 Consult Physician Routine Consulting Provider: Shalom Goldsmith Consult Reason/Comments: AMS Do you want consulting provider notified?: Yes, Notify in am Consult Physician Stat Consulting Provider: Jacinto Goldsmith Consult Reason/Comments: ICU Do you want consulting provider notified?: Already Contacted Consult Physician Urgent Consulting Provider: Margarita Irwin Consult Reason/Comments: PNA Do you want consulting provider notified?: Yes, Notify in am 12/14/24 00:53 Consult Physician Stat Consulting Provider: Morro Ribera Consult Reason/Comments: elevated trop Do you want consulting provider notified?: Yes Primary care physician: Karishma Reno, DO Hospital Course: Final diagnosis Acute on chronic hypoxic respiratory failure, multifactorial secondary to acute COPD exacerbation along with concerns of pneumonia of the right lower lobe, possible aspiration/atelectasis, sputum culture showing Staph aureus Sepsis, present on admission secondary to acute right lower lobe pneumonia requiring mechanical ventilation, status post extubation on 12/17/2024, maintained on 4 L. Sputum culture showing Staph aureus and [place] and is also status post bronchoscopy COPD acute exacerbation Leukocytosis, multifactorial secondary to sepsis as well as possible steroid- induced Refractory hypotension, likely secondary to sepsis requiring pressor support, improved and off pressor support Hypertension history Continued ongoing nicotine dependence History of Crohn's disease with IBS, follows with GI outpatient History of chronic anemia History of chronic back pain History of anxiety/depression/bipolar disorder History of seizure disorder maintained on Keppra History of CVA History of polysubstance abuse with crack/cocaine and has not used those illicit drugs in quite some time GI prophylaxis DVT prophylaxis Full code Discharge disposition Patient is being discharged in a stable condition with guarded prognosis to [facility]. Patient will follow-up with Dr. Reno in the outpatient setting upon discharge. Patient is to continue with oral Keflex 3 times daily for the next 1 week and close outpatient follow-up with pulmonary as well as cardiology as scheduled. Total time taken is greater than 35 minutes. Hospital course This is a 64-year-old female who was recently admitted with being unresponsive at the [facility] with acute on chronic hypoxic respiratory failure secondary to concerns of right lower lobe pneumonia possible aspiration as well as COPD exacerbation. Patient with difficulty in breathing requiring mechanical ventilation in the ER and was in the ICU for quite some time. Patient successfully extubated on 12/17/2024 and culture showing Staph aureus with infectious disease following. Patient maintained on IV antibiotics and will transition to oral Keflex on discharge for 1 week. Patient also completed prednisone taper for significant COPD and continue with inhalers. Patient to follow-up with pulmonary outpatient and would recommend aspiration precautions. Monitor mentation closely on narcotics and recommend limiting narcotic use. Patient has been cleared by consultations and significantly weak and will be returning to [facility] for continued PT/OT therapy. Please refer to other consultation notes for further HPI. Currently no reports of chest pain, shortness of breath, or palpitations. Patient is afebrile. No reports of nausea or vomiting and patient is tolerating diet. Patient will be going to [facility] today. Guarded prognosis and high risk for readmissions given significant comorbidities. Physical exam: Gen: This is a 64-year-old female who is awake, alert and oriented x 3, thin built, elderly appearing, cachectic HEENT: Head is atraumatic, normocephalic. Pupils equal, round. Sclerae is anicteric. NECK: Supple. No JVD. No lymphadenopathy. No thyromegaly. LUNGS: Diminished breath sounds bilaterally with some faint expiratory wheezes and coarse rhonchi noted. No intercostal retractions. HEART: Regular rate and rhythm. No murmur. ABDOMEN: Soft. Thin. Bowel sounds are present. No masses. No tenderness. EXTREMITIES: No pedal edema. No calf tenderness. NEUROLOGICAL: Patient is awake, alert and oriented x3. Cranial nerves 2 through 12 are grossly intact. Diffusely weak Please refer to medication reconciliation sheet for a list of medications. The impression and plan of care has been dictated by Angelita Diaz, Nurse Practitioner as directed. Dr. Aaron MD I have performed a history and examination and MDM of this patient, discussed the same with the dictator, and agree with the dictator's assessment and plan as written ,documented as a scribe. Based on total visit time, I have performed more than 50% of the visit. Patient Condition at Discharge: Fair Plan - Discharge Summary New Discharge Prescriptions: New Lactulose [Cephulac] 20 gm PO BID PRN ml PRN Reason: Constipation Losartan [Cozaar] 50 mg PO DAILY tab Ipratropium-Albuterol Nebulize [Duoneb 0.5 mg-3 mg/3 ml Soln] 3 ml INHALATION RT-Q4H PRN each PRN Reason: Shortness Of Breath Or Wheezing Cephalexin [Keflex] 500 mg PO Q8HR 7 Days #21 cap Metoprolol Tartrate [Lopressor] 50 mg PO BID tab predniSONE See Taper PO DIRECTED #30 tab guaiFENesin-DM 600/30MG [Mucinex Dm] 2 each PO Q12HR tab Nystatin 100,000 Unit/ml Susp [Mycostatin Oral Susp] 500,000 unit PO QID ml Continue levETIRAcetam [Keppra] 1,000 mg PO BID@0700,1900 Rivaroxaban [Xarelto] 20 mg PO HS Acetaminophen Tab [Tylenol] 1,000 mg PO Q6HR PRN PRN Reason: Pain Ondansetron [Zofran] 4 mg PO Q6H PRN PRN Reason: Nausea or Vomiting QUEtiapine [SEROquel] 200 mg PO HS Naloxone HCl [Narcan] 4 mg NASAL DIRECTED PRN PRN Reason: suspected opiod overdose Escitalopram [Lexapro] 10 mg PO DAILY Naloxone HCl 0.4 mg IM DIRECTED PRN PRN Reason: suspected opiod overdose QUEtiapine [SEROquel] 50 mg PO HS Albuterol Sulfate [Albuterol Sulfate Hfa] 2 puff INHALATION RT-Q6H PRN #1 each PRN Reason: Shortness Of Breath Gabapentin [Neurontin] 300 mg PO BID@0700,1900 Glycopyrrolate/Formoterol Fum [Bevespi Aerosphere Inhaler] 1 puff INHALATION RT-BID@07,1900 Montelukast [Singulair] 10 mg PO HS Omeprazole [PriLOSEC] 20 mg PO BID Ipratropium-Albuterol Nebulize [Duoneb 0.5 mg-3 mg/3 ml Soln] 3 ml INHALATION Q4H Budesonide [Pulmicort] 1 mg INHALATION RT-BID@0700,1900 HYDROcodone/APAP 5-325MG [[place] 5-325] 1 tab PO Q6HR PRN #4 tab PRN Reason: Pain Discontinued Metoprolol Succinate [Toprol XL] 100 mg PO DAILY Discharge Medication List Albuterol Sulfate [Albuterol Sulfate Hfa] 2 puff INHALATION RT-Q6H PRN #1 each 10/04/22 [Rx] levETIRAcetam [Keppra] 1,000 mg PO BID@0700,1900 03/20/23 [History] Rivaroxaban [Xarelto] 20 mg PO HS 06/21/23 [History] Gabapentin [Neurontin] 300 mg PO BID@0700,189904/15/24 [History] Glycopyrrolate/Formoterol Fum [Bevespi Aerosphere Inhaler] 1 puff INHALATION RT- BID@0700,189904/15/24 [History] Acetaminophen Tab [Tylenol] 1,000 mg PO Q6HR PRN 08/27/24 [History] Montelukast [Singulair] 10 mg PO HS 08/27/24 [History] Ondansetron [Zofran] 4 mg PO Q6H PRN 08/27/24 [History] Omeprazole [PriLOSEC] 20 mg PO BID 09/25/24 [History] Ipratropium-Albuterol Nebulize [Duoneb 0.5 mg-3 mg/3 ml Soln] 3 ml INHALATION Q4H 10/08/24 [History] QUEtiapine [SEROquel] 200 mg PO HS 10/08/24 [History] Budesonide [Pulmicort] 1 mg INHALATION RT-BID@0700,1900 12/13/24 [History] Escitalopram [Lexapro] 10 mg PO DAILY 12/13/24 [History] Naloxone HCl 0.4 mg IM DIRECTED PRN 12/13/24 [History] Naloxone HCl [Narcan] 4 mg NASAL DIRECTED PRN 12/13/24 [History] QUEtiapine [SEROquel] 50 mg PO HS 12/13/24 [History] Cephalexin [Keflex] 500 mg PO Q8HR 7 Days #21 cap 12/21/24 [Rx] HYDROcodone/APAP 5-325MG [[place] 5-325] 1 tab PO Q6HR PRN #4 tab 12/21/24 [Rx] Ipratropium-Albuterol Nebulize [Duoneb 0.5 mg-3 mg/3 ml Soln] 3 ml INHALATION RT-Q4H PRN each 12/21/24 [Rx] Lactulose [Cephulac] 20 gm PO BID PRN ml 12/21/24 [Rx] Losartan [Cozaar] 50 mg PO DAILY tab 12/21/24 [Rx] Metoprolol Tartrate [Lopressor] 50 mg PO BID tab 12/21/24 [Rx] Nystatin 100,000 Unit/ml Susp [Mycostatin Oral Susp] 500,000 unit PO QID ml 12/21/24 [Rx] guaiFENesin-DM 600/30MG [Mucinex Dm] 2 each PO Q12HR tab 12/21/24 [Rx] predniSONE See Taper PO DIRECTED #30 tab 12/21/24 [Rx] Follow up Appointment(s)/Referral(s): Karishma Reno DO [Primary Care Provider] - 1-2 days Jaun Cortez [STAFF PHYSICIAN] - 1 Week Activity/Diet/Wound Care/Special Instructions: Patient is going to [facility] as tolerated Follow-up with pulmonary outpatient Follow-up with primary care provider on discharge Continue prednisone taper on discharge Continue with antibiotics until finished Recommend aspiration precautions with head of the bed elevated 30 to 45 degrees at all times Discharge Disposition: TRANSFER TO SNF/ECF
--- NOTE | 2024-12-21 17:50 | P.PN ---
Subjective Progress Note Date: 12/21/24 Principal diagnosis: Reason for follow-up is sepsis/pneumonia Patient is a 64-year-old female with a past medical history significant for hypertension hyperlipidemia osteoarthritis COPD CVA TIA coronary artery disease patient has been brought into the hospital from a local assisted unresponsive, patient did have a fever abnormal x-ray concerning for possible pneumonia/sepsis. On today's evaluation that is 12/21/2024, patient has been afebrile, patient is breathing comfortably and is currently on room air, patient denies having any worsening cough no chest pain, patient denies nausea vomiting or diarrhea and no abdominal pain. No new lab has been repeated today Objective - Vital Signs Vital signs: Vital Signs Temp 98.2 F 12/21/24 07:09 Pulse 74 12/21/24 09:36 Resp 16 12/21/24 07:09 BP 131/71 12/21/24 07:09 Pulse Ox 98 12/21/24 09:06 FiO2 100 12/17/24 04:00 Intake & Output 12/20/24 12/21/24 12/21/24 18:59 06:59 18:59 Intake Total 1560 222 Output Total 700 600 Balance 860 -378 Intake: Oral 1560 222 Output: Urine 700 600 Other: Voiding Method Indwelling Catheter External Catheter External Catheter # Bowel Movements 1 1 ABP, PAP, CO, CI - Last Documented Arterial Blood Pressure 163/60 - Exam GENERAL DESCRIPTION: An elderly female lying in bed in no distress RESPIRATORY SYSTEM: Unlabored breathing , decreased breath sounds at bases HEART: S1 S2 regular rate and rhythm , ABDOMEN: Soft , no tenderness EXTREMITIES: No edema feet - Labs CBC & Chem 7: 12/18/24 07:21 12/20/24 07:16 Labs: Abnormal Lab Results - Last 24 Hours (Table) 12/20/24 12/20/24 12/20/24 Range/Units 12:21 17:00 20:20 POC Glucose (mg/dL) 120 H 176 H 213 H (70-110) mg/dL Assessment and Plan (1) Pneumonia Status: Acute Code(s): J18.9 - PNEUMONIA, UNSPECIFIED ORGANISM SNOMED Code(s): 325735363 (2) Sepsis Status: Acute Code(s): A41.9 - SEPSIS, UNSPECIFIED ORGANISM SNOMED Code(s): 22030330 (3) Thrush Status: Acute Code(s): B37.0 - CANDIDAL STOMATITIS SNOMED Code(s): 26262249 Plan: 1patient presented to hospital with sepsis in this patient who did have fever of 103 F reported by the EMS tachycardia elevated white count meeting criteria for SIRS/sepsis source likely pneumonia as no evidence of any cellulitis abdominal tenderness UA has been reported negative and will need to cover for the resistant gram-positive as well as gram-negative pathogen 2-blood cultures has been negative, sputum is growing and MSSA and [place] 3-patient is afebrile white count normalized, she will finish therapy with oral keflex discussed with the OPTICAL TECHNICIAN for admitting team Dictation was produced using [employer] dictation software. please excuse any grammatical, word or spelling errors. Time with Patient: Less than 30
== END 2024-12-21 15:49 | DRG 871 ==
LOC: EC 18:23 → 2SICU 20:05 → 3SCARD 12-17 19:08 → 5NMEDONC 12-20 07:35
PROVIDERS: ADMIT Hospitalist; ATTEND Hospitalist
PROC: 4A10X4Z Monitoring of Central Nervous Electrical Activity, External Approach (ICD-10-PCS; 2024-12-14)
PROC: 03HY32Z Insertion of Monitoring Device into Upper Artery, Percutaneous Approach (ICD-10-PCS; 2024-12-15)
PROC: 4A133B1 Monitoring of Arterial Pressure, Peripheral, Percutaneous Approach (ICD-10-PCS; 2024-12-15)
PROC: 4A133J1 Monitoring of Arterial Pulse, Peripheral, Percutaneous Approach (ICD-10-PCS; 2024-12-15)
PROC: 3E043XZ Introduction of Vasopressor into Central Vein, Percutaneous Approach (ICD-10-PCS; 2024-12-15)
PROC: 0B9F8ZX Drainage of Right Lower Lung Lobe, Via Natural or Artificial Opening Endoscopic, Diagnostic (ICD-10-PCS; 2024-12-16)
PROC: 02HV33Z Insertion of Infusion Device into Superior Vena Cava, Percutaneous Approach (ICD-10-PCS; 2024-12-16)
PROC: 5A1945Z Respiratory Ventilation, 24-96 Consecutive Hours (ICD-10-PCS; principal; 2024-12-17)
PROC: 0BH17EZ Insertion of Endotracheal Airway into Trachea, Via Natural or Artificial Opening (ICD-10-PCS; 2024-12-17)
DX: A41.89 Other specified sepsis (principal); B37.1 Pulmonary candidiasis; G93.41 Metabolic encephalopathy; J96.21 Acute and chronic respiratory failure with hypoxia; J96.22 Acute and chronic respiratory failure with hypercapnia; J15.211 Pneumonia due to Methicillin susceptible Staphylococcus aureus; J44.0 Chronic obstructive pulmonary disease with (acute) lower respiratory infection; G40.909 Epilepsy, unspecified, not intractable, without status epilepticus; F31.9 Bipolar disorder, unspecified; D64.9 Anemia, unspecified; I08.1 Rheumatic disorders of both mitral and tricuspid valves; J44.1 Chronic obstructive pulmonary disease with (acute) exacerbation; K50.90 Crohn's disease, unspecified, without complications; I48.0 Paroxysmal atrial fibrillation; R65.20 Severe sepsis without septic shock; B37.7 Candidal sepsis; Z11.52 Encounter for screening for COVID-19; I25.10 Atherosclerotic heart disease of native coronary artery without angina pectoris; E78.5 Hyperlipidemia, unspecified; F17.210 Nicotine dependence, cigarettes, uncomplicated; F41.9 Anxiety disorder, unspecified; Z79.01 Long term (current) use of anticoagulants; Z79.52 Long term (current) use of systemic steroids; Z79.899 Other long term (current) drug therapy; Z82.49 Family history of ischemic heart disease and other diseases of the circulatory system; Z86.73 Personal history of transient ischemic attack (TIA), and cerebral infarction without residual deficits; Z99.81 Dependence on supplemental oxygen; Z88.1 Allergy status to other antibiotic agents; Z88.8 Allergy status to other drugs, medicaments and biological substances; M19.90 Unspecified osteoarthritis, unspecified site
CPT/HCPCS: 36415; 36600; 51702; 70450; 70496; 70498; 71045; 71260; 80048; 80053; 80202; 80306; 80320; 81003; 82140; 82805; 83036; 83605; 83735; 83880; 84132; 84145; 84443; 84484; 85025; 85027; 85610; 85730; 87040; 87070; 87077; 87186; 87205; 87449; 87636; 93005; 93306; 94002; 94003; 94640; 94667; 94760; 95822; 96361; 96365; 96366; 96367; 96368; 96375; 96376; 99285